=== PATIENT | female | born 1965 | race Caucasian/White ===

== ENCOUNTER 2017-07-09 13:00 | Outpatient (RCR) | payer MEDICAID, OTHER ==
[~2017-07-09 13:00] MED LIST: AMPH20TA2 PO; CEPH500C PO; CYCL10TA9 PO; GABA400C PO; HCTZ12.5T PO; HYDR-1231 PO; HYDR-757 PO; HYDR118S10 PO; IBUP-792 PO; LD5PT TOP; NAPR550T PO; PRD20T PO; SULF-222 PO; TRAM50TA2 PO
== END 2017-07-12 15:40 | disposition home or self-care (01) ==
PROVIDERS: ATTEND Physician Assistant
DX: Z47.1 Aftercare following joint replacement surgery (principal); Z96.652 Presence of left artificial knee joint

== ENCOUNTER 2019-12-16 20:15 | Emergency (ER) | payer MEDICARE, MEDICAID ==
[~2019-12-16] VITALS: Ht 162 cm; Wt 111.8 kg
--- OUTSIDE RECORDS SUMMARY | 2019-12-16 20:21 | XMS REPORT ---
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 thrombosis, PT says her depression has been elevated the past month, PT has n't taken any medication in almost two yearsBH intake -Hollis RUIZ stomache pain, Started Lamotrigine on Wednesday, that is when she started getting sick, [facility] medication refill requestLab (walk-in)[id number]-YdlROL-Us [id number]-[id number]-[id number]-GlvPXP-[id number]
--- OUTSIDE RECORDS SUMMARY | 2019-12-16 20:22 | XMS REPORT ---
Discharge Summary 2.1 Created on: LUIS MANUEL ROBLES : 1965 Sex: Female Author Author LUIS MANUEL REGALADO Organization Unknown Address [address] [place], [place] [id number] Care Team Providers Care Premium Service Representative Name Role Phone RONALD DESAI Watchlist MELBA BACON Watchlist PRIYA SHI Xwatchlist DELBERT ARAGON Xwatchlist CHERRY TUTTLE Xwatchlist JORGE AHUJA Xwatchlist PHILIP TRONCOSO Xwatchlist BEENA MARS Xwatchlist SHOSHANAGEOVANY TAVARESIG Xwatchlist KENKIANNA JOHNNY Xwatchlist PEG GUAMAN Xwatchlist ADELFO SHY Xwatchlist MELINDA Rodriguez'STEVE Xwatchlist MARICRUZ Calhoun BEN Salmon MD Attending CHERYL CONTRERAS Physasst DARYA MOROCHO Physasst Functional Status No Data Found Immunization Immunization Date Status Additional Notes Code Code System Tdap 11/29/2013 Completed 115 CVX Mental Status No Data Found Results BASIC METABOLIC PANEL - Collect Date/Marcela e: 06/10/2017 06:15 [employer] ID: [id number] [address], [place], [place], [id number] [facility] ID: [id number] [address], [place], [place], [id number] LOINC: 24669-2 Test Value Unit Reference Range Code Code System GLUCOSE 96 MG/DL L=70 H=100 2345-7 LOINC SODIUM 139 MEQ/L L=135 H=148 2951-2 LOINC POTASSIUM 4.6 MEQ/L L=3.5 H=5.3 2823-3 LOINC CHLORIDE 108 MEQ/L L=96 H=110 2075-0 LOINC CO2 24 MEQ/L L=22 H=29 2028-9 LOINC BUN 11 MG/DL L=8 H=22 3094-0 LOINC CREATININE 0.7 MG/DL L=0.6 H=1.6 2160-0 LOINC CALCIUM 8.5 MG/DL L=8.2 H=10.6 81739-8 LOINC AGE 52 yrs GFR NonAA 89 GFR AA 108 eGFR >60 eGFR AA* >60 CBC W/ AUTO DIFF (RFLX MAN DIFF IF IND) - Collect Date/Time: 06/10/2017 06:15 [facility] [employer] ID: [id number] [address] [facility] [address], [place], [id number] [employer] ID: [id number] [address] [facility] [address], [place], [id number] LOINC: 43321-2 Test Value Unit Reference Range Code Code System WBC 11.8 TH/CMM L=4.5 H=10.8 10791-0 LOINC RBC 3.20 ML/CMM L=4.20 H=5.40 789-8 LOINC HGB 9.8 G/DL L=12.0 H=16.0 718-7 LOINC HCT 31.1 % L=37.0 H=47.0 4544-3 LOINC MCV 97 FL L=81 H=99 MCH 30.6 PG L=27.0 H=33.0 MCHC 31.5 G/DL L=31.0 H=36.0 RDW SD 47 FL L=36 H=50 RDW CV 13.2 % L=0.0 H=14.8 MPV 10.0 FL L=9.3 H=12.5 PLT 259 TH/CMM L=130 H=440 777-3 LOINC NRBC# 0.00 TH/CMM L=0.00 H=0.00 NRBC% 0.0 /100WBC L=0.0 H=2.0 %NEUT 73.0 % %LYMP 20.8 % %MONO 5.3 % %EOS 0.1 % %BASO 0.3 % #NEUT 8.61 TH/CMM L=2.10 H=8.20 #LYMP 2.45 TH/CMM L=0.90 H=5.20 #MONO 0.63 TH/CMM L=0.16 H=1.00 #EOS 0.01 TH/CMM L=0.00 H=0.80 #BASO 0.03 TH/CMM L=0.00 H=0.20 MANUAL DIFF NOT IND BASIC METABOLIC PANEL - Collect Date/Marcela e: 06/09/2017 06:55 [employer] ID: [id number] [address], [place], [place], [id number] [facility] [employer] ID: [id number] [address] [facility] [address], [place], [place], [phone] LOINC: 76619-4 Test Value Unit Reference Range Code Code System GLUCOSE 135 MG/DL L=70 H=100 2345-7 LOINC SODIUM 132 MEQ/L L=135 H=148 2951-2 LOINC POTASSIUM 4.4 MEQ/L L=3.5 H=5.3 2823-3 LOINC CHLORIDE 102 MEQ/L L=96 H=110 2075-0 LOINC CO2 22 MEQ/L L=22 H=29 2028-9 LOINC BUN 10 MG/DL L=8 H=22 3094-0 LOINC CREATININE 0.7 MG/DL L=0.6 H=1.6 2160-0 LOINC CALCIUM 8.6 MG/DL L=8.2 H=10.6 60886-2 LOINC AGE 52 yrs GFR NonAA 89 GFR AA 108 eGFR >60 eGFR AA* >60 CBC W/ AUTO DIFF (RFLX MAN DIFF IF IND) - Collect Date/Time: 06/09/2017 06:55 [facility] ID: [id number] [address], [place], [place], [id number] [facility] ID: [id number] [address], [place], [place], [id number] LOINC: 98264-3 Test Value Unit Reference Range Code Code System WBC 18.9 TH/CMM L=4.5 H=10.8 83793-6 LOINC RBC 3.40 ML/CMM L=4.20 H=5.40 789-8 LOINC HGB 10.5 G/DL L=12.0 H=16.0 718-7 LOINC HCT 32.5 % L=37.0 H=47.0 4544-3 LOINC MCV 96 FL L=81 H=99 MCH 30.9 PG L=27.0 H=33.0 MCHC 32.3 G/DL L=31.0 H=36.0 RDW SD 43 FL L=36 H=50 RDW CV 12.5 % L=0.0 H=14.8 MPV 10.2 FL L=9.3 H=12.5 PLT 297 TH/CMM L=130 H=440 777-3 LOINC NRBC# 0.00 TH/CMM L=0.00 H=0.00 NRBC% 0.0 /100WBC L=0.0 H=2.0 %NEUT 87.2 % %LYMP 9.3 % %MONO 2.8 % %EOS 0.0 % %BASO 0.2 % #NEUT 16.52 TH/CMM L=2.10 H=8.20 #LYMP 1.77 TH/CMM L=0.90 H=5.20 #MONO 0.53 TH/CMM L=0.16 H=1.00 #EOS 0.00 TH/CMM L=0.00 H=0.80 #BASO 0.03 TH/CMM L=0.00 H=0.20 MANUAL DIFF SEE BELOW SEGS 85 % BANDS 5 % LYMPHS 6 % MONOS 4 % EOS BASO METAS MYELO PROS BLASTS ATYP LYMPHS RBC MORPH TEST URINE - Collect Date/Time : 06/08/2017 11:35 [facility] ID: [id number] [address], [place], [place], [phone] [facility] ID: [id number] [address], [place], [place], [id number] LOINC: 2105-09 Test Value Unit Reference Range Code Code System TEST UR NEGATIVE 2105-09 LOINC KNEE 1V OR 2V - Completed: 06/08/2017 15 :09 LOINC: EXAMINATION:KNEE 1V OR 2VREASON FOR EXAM :Post-Op Evaluation Left/Right?: LEFT COMPARISON:None.FINDINGS:Total knee arthroplasty changes with soft tissue swelling, subcutaneous emphysema, a joint effusion, and a surgical drain.IMPRESSION:Left total knee arthroplasty changes.Reviewed and Electronically Signed by: Josie Carey Date/Time: 06/08/2017 3:25 PMJob ID#: [id number] Social History Type Status Start Date End Date Code Code System Smoking History Never smoker (Never Smoked ) 190513388 SNOMED-CT Vital Signs Vital Sign Value Unit Holton Value Holton Unit Date/Time Recent/Initial? Code Cod e System Body Mass Index 39.86 kg /m2 05/31/2017 09:30 Inital 18008-8 LOINC Systolic Blood Pressure 132 mm[Hg] 06/10/2017 15:09 Most Recent 8480-6 LOINC Diastolic Blood Pressure 74 mm[Hg] 06/10/2017 15:09 Most Recent 8462-4 INC Systolic Blood Pressure 137 mm[Hg] 05/31/2017 09:30 Inital 8480-6 LOINC Diastolic Blood Pressure 87 mm[Hg] 05/31/2017 09:30 Inital 8462-4 LOINC Body Surface Area 2.13 m2 05/31/2017 09:30 Inital 3140-1 LOINC Height 160.0200 cm 63.00 in 05/31/2017 09:30 Init al 8302-2 LOINC O2 Saturation 99 % 06/10/2017 15:09 Most Recent 00794-2 LOINC O2 Saturation 100 % 05/31/2017 09:30 Inita l 17136-7 LOINC Pulse 89.0 /min 06/10/2017 15:09 Most Recent 8867-4 LOINC Pulse 81.0 /min 05/31/2017 09:30 Inita l 8867-4 LOINC Respiration 18 /min 06/10/2017 15:09 Most Recent 9279-1 LOINC Respiration 20 /min 05/31/2017 09:30 Inita l 9279-1 LOINC Temperature 36.7 Ragini 98.0 F 06/10/2017 15:09 Most Recent 8310-5 LOINC Temperature 35.6 Ragini 96.0 F 06/08/2017 16:00 Inita l 8310-5 LOINC Weight 102.0583 kg 225.00 lbs 05/31/2017 09:30 Inital 05749-5 LOINC Assessment You had the following problems: STATUS POST KNEE REPLACEMENT POST-OP PAIN Hospital Discharge Instructions Should you have any questions [...] Wednesday06/23/17 AT 9:20AM FOLLOW-UP OUTPATIENT SERVICES: Physical Therapy GOWEN 06/14/17 AT 3:30PM CONTACT PHYSICIAN IF YOU EXPERIENCE ANY: pain, dizziness, bleeding, numbness in your hands/feet, fever. Shortness of Breath, Nausea/Vomiting, Redness or soreness in calf area. Odor or drainage from incision. PERSONAL ITEMS RETURNED: Yes. INSTRUCTIONS GIVEN AND DISCHARGE TO: Patient. INSTRUCTIONS GIVEN BY (TYPE IN NAME AND DATE) MELBA BACON 06/10/17 SMOKING CESSATION: Smoking and second hand smoke is harmful, to your health.. Smoking has been linked to cancer, cardiac disease, COPD, and asthma.. For more information you can call:, [phone]-STOP, or [phone].. A pamphlet on smoking was given to you, at admission.. Reason For Referral No Data Found Hospital Course You were admitted to [facility] on 06/08/2017 10:30 with a principal diagnosis of Unilateral post-traumatic osteoarthritis, left knee You were discharged from [facility] on 06/10/2017 17:05 Medications Medication Start Date En d Date Route Frequency Dose Code Code System KETOROLAC (TORADOL) VIAL: 30 MG/ML 1 ML 06/08/2017 06/13/2017 IV PUSH Q6H 30 MG 4788753 RxNorm Outpatient Therapy 06/10/2017 Unknown <OTHER> WEEKLY 1 <OTHER> RxNorm oxyCODONE HCl 5MG Oral Tablet 06/10/2017 Unknown BY MOUTH NEEDED EVERY 4 HR 1 TABLET 5685229 RxNorm Aspirin 325MG Oral Tablet, Enteric Coated 06/10/2017 Unknown BY MOUTH TWO MARCELA ES A DAY 325 MILLIGRAMS [id number] Rx Norm Procedures Procedure Name Date Stat us Code Code System Replacement of Left Knee Joint with Synt hetic Substitute, Cemented, Open A 06/08/2017 completed 0SR D0J9 ICD10 PCS Introduction of Anesthetic Agent into Pe ripheral Nerves and Plexi, Percuta 06/08/2017 completed 3E0 T3BZ ICD10 PCS Implants No Data Found Problems Problem Start Date Resol ulysses Date Status Code Code System STATUS POST KNEE REPLACEMENT active 5742155782621 SNO MED-CT POST-OP PAIN active 093259375 SNOMED-CT Allergies Allergy Substance Reaction Severity Start Date Concern Status Code Code System No Known Drug Allergies Active RxNorm Plan of Treatment No Data Found Encounters No Data Found Goals No Data Found Discharge Medications No Data Found Discharge Diagnosis Discharge Diagnosis Diagnosis Code Start Date Unilateral post-traumatic osteoarthritis, left knee M1732 06/08/2017 Health Concerns Section No Data Found
--- OUTSIDE RECORDS SUMMARY | 2019-12-16 20:22 | XMS REPORT ---
Author Author Patti Ding Organization [facility] Address Unknown Care Team Providers Care Sterile Proc Tech Name Role Phone DIMITRY Ding Unavailable PROBLEMS Type Condition ICD9-CM Code SQV54-AR Code Onset Dates Condition S tatus SNOMED Code Problem ADD (attention deficit disorder) F90.0 Active 578614850 Problem Drug abuse counseling and surveillance of drug abuser Z71.51 Active 651024343 Problem Insomnia G47.00 Active 822889959 Problem Joint pain M25.50 Active 06633834 Problem Edema, unspecified type R60.9 Active 100373082 Problem Episode of recurrent major d epressive disorder, unspecified depression episode severity F33.9 Active 216944350 Problem Venous insufficiency (chronic) (peripheral) I87.2 Active [id number] Problem Carpal tunnel syndrome on left G56.02 Active 242485782092392 Problem Manic bipolar I disorder in partial remission F31. 73 Active 90129407 Problem Bipolar affective disorder, currently depressed, moderate F31.32 Active 603239379 Problem Social anxiety disorder F40.10 Active 91034643 Problem Other chronic pain G89.29 Active 8 4662532 Problem Stimulant abuse F15.10 Active 4415 44714 Problem Bipolar II disorder F31.81 Active 75021834 Problem ADD (attention deficit disorder) without hyperactivity F98.8 Active 49642220 ALLERGIES No Information ENCOUNTERS Encounter Location Date Diagnosis [facility] [address] [facility] [id number] [address] [place] [address] Aug, [facility] [address] [facility] [id number] [address] [place] [address] Aug, Bipolar II disorder F31.81 ; Social anxiety disorder F40.10 and ADD (attention deficit disorder) F90.0 [facility] [address] [facility] [id number] [address] [place] [address] Jul, [facility] [address] [facility] [id number] [address] [place] [address] Apr, [facility] [address] [facility] [id number] [address] [place] [address] Apr, Bipolar II disorder F31.81 a nd Social anxiety disorder F40.10 [place] [address] [place] [id number] [address] [place] [address] Jan, Bipolar affective disorder, currently depressed, moderate F31.32 [place] [address] [place] [id number] [address] [place] [address] Jan, Bipolar affective disorder, currently depressed, moderate F31.32 ; Social anxiety disorder F40.10 and Morbid obesity E66.01 [place] [address] [place] [id number] [address] [place] [address] May, Screening for lipid disorder s Z13.220 [place] [address] [place] [id number] [address] [place] [address] May, Carpal tunnel syndrome on le ft G56.02 ; Social anxiety disorder F40.10 and Screening for lipid disorders Z13.220 [place] [address] [place] [id number] [address] [place] [address] Apr, Bipolar II disorder F31.81 ; Social anxiety disorder F40.10 ; ADD (attention deficit disorder) without hyperactivity F98.8 and BMI 45.0-49.9, adult Z68.42 [place] [address] [place] [id number] [address] [place] [address] Mar, [place] [address] [place] [id number] [address] [place] [address] Feb, BMI 45.0-49.9, adult Z68.42 ; Carpal tunnel syndrome on left G56.02 and Social anxiety disorder F40.10 [place] [address] [place] [id number] [address] [place] [address] 09 Job, 2018 Bipolar II disorder F31.81 ; ADD (attention deficit disorder) without hyperactivity F98.8 ; Social anxiety disorder F40.10 and Stimulant abuse F15.10 [place] [address] [place] [id number] [address] [place] [address] Dec, Episode of recurrent major d epressive disorder, unspecified depression episode severity F33.9 ; Other chronic pain G89.29 ; Radiculopathy, lumbar region M54.16 ; Edema of lower extremity R60.0 and BMI 45.0-49.9, adult Z68.42 [place] [address] [place] [id number] [address] [place] [address] Jun, [place] [address] [place] [id number] [address] [place] [address] Jan, Joint pain M25.50 [place] [address] [place] [id number] [address] [place] [address] Jan, Wellness examination Z00.00 ; Pain in right knee M25.561 ; Pain in left knee M25.562 ; Edema, unspecified type R60.9 and Drug abuse counseling and surveillance of drug abuser Z71.51 [place] [address] [place] [id number] [address] [place] [address] November, [place] [address] [place] [id number] [address] [place] [address] Oct, [facility] [address] [place] [id number] [address] [place] [address] Oct, ADD (attention deficit disor josselin) F90.0 ; Social anxiety disorder F40.10 and Manic bipolar I disorder in partial remission F31.73 [place] [address] [place] [id number] [address] [place] [address] Aug, [facility] [address] [facility] [id number] [address] [place] [address] Aug, [facility] [address] [place] [id number] [address] [place] [address] Aug, [facility] [address] [facility] [id number] [address] [place] [address] Jul, [facility] [address] [facility] [id number] [address] [place] [address] Jul, [facility] [address] [facility] [id number] [address] [place] [address] Jul, [facility] [address] [facility] [id number] [address] [place] [address] Jun, [facility] [address] [facility] [id number] [address] [place] [address] Jun, [facility] [address] [facility] [id number] [address] [place] [address] Jun, [facility] [address] [place] [id number] [place] [address] Jun, [facility] [address] [place] [id number] [address] [place] [address] May, Joint pain M25.50 ; ADD (att ention deficit disorder) F90.0 ; Edema R60.9 and Insomnia G47.00 [facility] [address] [facility] [id number] [address] [place] [address] May, [facility] [address] [facility] [id number] [address] [place] [address] May, [facility] [address] [facility] [id number] [address] [place] [address] May, [facility] [address] [facility] [id number] [address] [place] [address] May, Left wrist pain M25.532 ; Si nusitis J32.9 and Drug abuse counseling and surveillance of drug abuser Z71.51 [facility] [address] [facility] [id number] [address] [place] [address] Apr, [facility] [address] [place] [id number] [address] [place] [address] Apr, [facility] [address] [facility] [id number] [address] [place] [address] 15 Apr, 2015 [facility] [address] [facility] [id number] [address] [place] [address] Apr, [facility] [address] [facility] [id number] [address] [place] [address] Apr, [facility] [address] [facility] [id number] [address] [place] [address] Apr, [facility] [address] [facility] [id number] [address] [place] [address] Apr, [facility] [address] [facility] [id number] [address] [place] [address] Mar, Unspecified venous (peripher al) insufficiency 459.81 ; Bipolar I disorder, most recent episode (or current) manic, moderate 296.42 ; Social phobia 300.23 ; Attention deficit disorder of childhood without mention of hyperactivity 314.00 ; Pain in joint, lower leg 719.46 ; Thrombosis 453.9 and Chronic pain 338.29 [facility] [address] [facility] [id number] [address] [place] [address] 18 Mar, 2015 [facility] [address] [facility] [id number] [address] [place] [address] 18 Mar, 2015 [facility] [address] [facility] [id number] [address] [place] [address] 18 Mar, 2014 [facility] [address] [facility] [id number] [address] [place] [address] 17 Mar, 2014 [facility] [address] [facility] [id number] [address] [place] [address] 17 Mar, 2015 [facility] [address] [facility] [id number] [address] [place] [address] 11 Mar, 2014 [facility] [address] [facility] [id number] [address] [place] [address] Mar, Manic bipolar I disorder in partial remission 296.45 ; Social phobia 300.23 and Attention deficit disorder of childhood without mention of hyperactivity 314.00 [facility] [address] [facility] [id number] [address] [place] [address] Mar, [facility] [address] [facility] [id number] [address] [place] [address] Feb, [facility] [address] [facility] [id number] [address] [place] [address] Feb, Thrombosis 453.9 ; Unspecifi ed venous (peripheral) insufficiency 459.81 ; Bipolar I disorder, most recent episode (or current) manic, moderate 296.42 ; Social phobia 300.23 ; Attention deficit disorder of childhood without mention of hyperactivity 314.00 ; Pain in joint, lower leg 719.46 and Edema 782.3 [facility] [address] [facility] [id number] [address] [place] [address] Feb, [facility] [address] [place] [id number] [address] [place] [address] Feb, Social phobia 300.23 ; Atten tion deficit disorder of childhood without mention of hyperactivity 314.00 and Bipolar I disorder, most recent episode manic, in partial remission 296.45 [facility] [address] [facility] [id number] [address] [place] [address] Jan, [facility] [address] [facility] [id number] [address] [place] [address] Jan, [facility] [address] [facility] [id number] [address] [place] [address] Jan, Unspecified venous (peripher al) insufficiency 459.81 and Thrombophlebitis 451.9 [facility] [address] [facility] [id number] [address] [place] [address] Jan, [facility] [address] [facility] [id number] [address] [place] [address] Dec, Headache 784.0 and Back pain 724.5 [facility] [address] [id number] [address] [place] [address] Dec, [facility] [address] [id number] [address] [place] [address] Dec, Bipolar I disorder, most rec ent episode (or current) manic, moderate 296.42 ; Attention deficit disorder of childhood without mention of hyperactivity 314.00 and Social phobia 300.23 [facility] [address] [id number] [address] [place] [phone] November, [facility] [address] [id number] [address] [place] [address] November, [facility] [address] [id number] [address] [place] [address] Oct, [facility] [address] [id number] [address] [place] [address] Oct, [facility] [address] [id number] [address] [place] [address] Sep, [facility] [address] [id number] [address] [place] [address] Sep, [facility] [address] [facility] [id number] [address] [place] [address] Aug, [facility] [address] [id number] [address] [place] [address] Aug, [facility] [address] [id number] [address] [place] [id number] Aug, [facility] [address] [id number] [address] [place] [phone] Aug, [facility] [address] [facility] [id number] [address] [place] [address] Aug, [facility] [address] [facility] [id number] [address] [place] [address] Aug, [facility] [address] [id number] [address] [place] [address], [place] [address] Aug, [facility] [address] [id number] [address] [place] [address], [place] [address] Jul, [facility] [address] [id number] [address] [place] [address], [place] [address] Jul, [facility] [address] [id number] [address] [place] [address], [place] [address] Jun, [facility] [address] [id number] [address] [place] [address], [place] [address] Jun, [facility] [address] [id number] [address] [place] [address], [place] [address] May, [facility] [address] [id number] [address] [place] [address], [place] [address] May, [facility] [address] [id number] [address] [place] [address], [place] [address] May, [facility] [address] [id number] [address] [place] [address], [place] [address] May, [facility] [address] [id number] [address] [place] [address], [place] [address] May, [facility] [address] [id number] [address] [place] [address], [place] [address] May, [facility] [address] [id number] [address] [place] [address], [place] [address] Apr, [facility] [address] [id number] [address] [place] [address], [place] [address] Apr, [facility] [address] [id number] [address] [place] [address], [place] [address] Apr, [facility] [address] [id number] [address] [place] [address], [place] [address] Apr, [facility] [address] [id number] [address] [place] [address], [place] [address] Mar, [facility] [address] [id number] [facility] [place] [address] 22 Sep, 2013 [facility] [address] [id number] [address] [place] [address], [place] [address] 19 Sep, 2013 [facility] [address] [id number] [address] [place] [address], [place] [address] 16 Sep, 2013 [facility] [address] [id number] [address] [place] [address], [place] [address] 16 Sep, 2013 [facility] [address] [id number] [address] [place] [address], [place] [address] 15 Mar, 2013 [facility] [address] [id number] [address] [place] [address], [place] [address] 11 Mar, 2013 [facility] [address] [id number] [address] [place] [address], [place] [address] 11 Mar, 2013 [facility] [address] [id number] [address] [place] [address], [place] [address] 11 Mar, 2013 [facility] [address] [id number] [address] [place] [address], [place] [address] 11 Mar, 2013 [facility] [address] [id number] [address] [place] [address], [place] [address] 10 Mar, 2013 [facility] [address] [id number] [address] [place] [address], [place] [address] 09 Mar, 2013 [facility] [address] [id number] [address] [place] [address], [place] [address] 09 Mar, 2013 [facility] [address] [id number] [address] [place] [address], [place] [address] 02 Mar, 2013 [facility] [address] [id number] [address] [place] [address], [place] [address] 02 Mar, 2013 [facility] [address] [id number] [address] [place] [address], [place] [address] 29 Feb, 2013 [facility] [address] [id number] [address] [place] [address], [place] [address] Feb, [facility] [address] [id number] [address] [place] [address], [place] [address] Feb, [facility] [address] [id number] [address] [place] [address], [place] [address] Feb, [facility] [address] [id number] [address] [place] [address], [place] [address] Feb, [facility] [address] [id number] [address] [place] [address], [place] [address] Feb, [facility] [address] [id number] [address] [place] [address], [place] [address] Feb, [facility] [address] [id number] [address] [place] [address], [place] [address] Feb, [facility] [address] [id number] [address] [place] [address], [place] [address] Feb, [facility] [address] [id number] [address] [place] [address], [place] [address] Feb, [facility] [address] [id number] [address] [place] [address], [place] [address] Feb, [facility] [address] [id number] [address] [place] [address], [place] [address] Feb, [facility] [address] [id number] [address] [place] [address], [place] [address] Feb, [facility] [address] [id number] [address] [place] [address], [place] [address] Feb, [facility] [address] [id number] [address] [place] [address], [place] [address] Jan, [facility] [address] [id number] [address] [place] [address], [place] [address] Jan, [facility] [address] [id number] [address] [place] [address], [place] [address] Jan, [facility] [address] [id number] [facility] [place] [address] Jan, [facility] [address] [id number] [facility] [place] [address] Jan, [facility] [address] [id number] [address] [place] [address], [place] [address] Jan, [facility] [address] [id number] [address] [place] [address], [place] [address] Jan, [facility] [address] [id number] [address] [place] [address], [place] [address] Dec, [facility] [address] [id number] [address] [place] [address], [place] [address] Dec, [facility] [address] [id number] [address] [place] [address], [place] [address] Dec, [facility] [address] [id number] [address] [place] [address], [place] [address] Dec, [facility] [address] [id number] [address] [place] [address], [place] [address] Dec, [facility] [address] [id number] [address] [place] [address], [place] [address] Dec, [facility] [address] [id number] [address] [place] [address], [place] [address] Dec, [facility] [address] [id number] [address] [place] [address], [place] [address] Dec, [facility] [address] [id number] [address] [place] [address], [place] [address] Dec, [facility] [address] [id number] [address] [place] [address], [place] [address] November, [facility] [address] [id number] [address] [place] [address], [place] [address] November, [facility] [address] [id number] [address] [place] [address], [place] [address] November, [facility] [address] [id number] [facility] [place] [address] November, [facility] [address] [id number] [address] [place] [address], [place] [address] November, [facility] [address] [id number] [address] [place] [address], [place] [address] November, [facility] [address] [id number] [address] [place] [address], [place] [address] November, [facility] [address] [id number] [address] [place] [address], [place] [address] November, [facility] [address] [id number] [address] [place] [address], [place] [address] November, [facility] [address] [id number] [address] [place] [address], [place] [address] November, [facility] [address] [id number] [address] [place] [address], [place] [address] November, [facility] [address] [id number] [address] [place] [address], [place] [address] November, [facility] [address] [id number] [address] [place] [address], [place] [address] November, [facility] [address] [id number] [address] [place] [address], [place] [address] November, [facility] [address] [id number] [address] [place] [address], [place] [address] Oct, [facility] [address] [id number] [address] [place] [address], [place] [address] Oct, [facility] [address] [id number] [address] [place] [address], [place] [address] Oct, [facility] [address] [id number] [address] [place] [address], [place] [address] Oct, [facility] [address] [id number] [address] [place] [address], [place] [address] Oct, [facility] [address] [id number] [address] [place] [address], [place] [address] Oct, [facility] [address] [id number] [address] [place] [address], [place] [address] Sep, [facility] [address] [id number] [address] [place] [address], [place] [address] Sep, [facility] [address] [id number] [address] [place] [address], [place] [address] Sep, [facility] [address] [id number] [address] [place] [address], [place] [address] Sep, [facility] [address] [id number] [address] [place] [address], [place] [address] Aug, [facility] [address] [id number] [address] [place] [address], [place] [address] Aug, [facility] [address] [id number] [address] [place] [address], [place] [address] Aug, [facility] [facility] [address] [id number] [address] [place] [address], [place] [address] Aug, [facility] [address] [id number] [address] [place] [address], [place] [address] Jul, [facility] [address] [id number] [address] [place] [address], [place] [address] Jul, [facility] [address] [id number] [address] [place] [address], [place] [address] Jul, [facility] [address] [id number] [address] [place] [address], [place] [address] Jul, [facility] [address] [id number] [address] [place] [address], [place] [address] Jul, [facility] [address] [id number] [address] [place] [address], [place] [address] Jul, [facility] [address] [id number] [address] [place] [address], [place] [address] 14 Jul, 2013 [facility] [address] [id number] [address] [place] [address], [place] [address] 27 Jun, 2013 [facility] [address] [id number] [address] [place] [address], [place] [address] 27 Jun, 2013 [facility] [address] [id number] [address] [place] [address], [place] [address] 17 Jun, 2013 [facility] [address] [id number] [address] [place] [address], [place] [address] 17 Jun, 2013 [facility] [address] [id number] [address] [place] [address], [place] [address] Jun, [facility] [address] [id number] [address] [place] [address], [place] [address] Jun, [facility] [address] [id number] [address] [place] [address], [place] [address] 07 May, 2013 [facility] [address] [id number] [address] [place] [address], [place] [address] 07 May, 2013 [facility] [address] [id number] [address] [place] [id number] 15 Apr, 2013 [facility] [address] [id number] [address] [place] [address], [place] [address] 15 Apr, 2013 [facility] [address] [id number] [address] [place] [id number] 10 Apr, 2013 [facility] [address] [id number] [address] [place] [address], [place] [address] 10 Apr, 2013 [facility] [address] [id number] [address] [place] [id number] 08 Apr, 2013 [facility] [address] [id number] [address] [place] [address], [place] [address] 24 Mar, 2013 [facility] [address] [id number] [address] [place] [address], [place] [address] 19 Mar, 2013 [facility] [address] [id number] [address] [place] [address], [place] [address] 12 Mar, 2013 [facility] [address] [id number] [address] [place] [address], [place] [address] Mar, [facility] [address] [id number] [address] [place] [address], [place] [address] Feb, [facility] [address] [id number] [address] [place] [address], [place] [address] Feb, [facility] [address] [id number] [address] [place] [address], [place] [address] Jan, [facility] [address] [id number] [address] [place] [address], [place] [address] Jan, [facility] [address] [id number] [address] [place] [address], [place] [address] Jan, [facility] [address] [id number] [address] [place] [address], [place] [address] Jan, [facility] [address] [id number] [address] [place] [address], [place] [address] Dec, [facility] [address] [id number] [address] [place] [address], [place] [address] Dec, [facility] [address] [id number] [address] [place] [address], [place] [address] Dec, [facility] [address] [id number] [address] [place] [address], [place] [address] Dec, [facility] [address] [id number] [address] [place] [address], [place] [address] November, [facility] [address] [id number] [address] [place] [address], [place] [address] November, [facility] [address] [id number] [address] [place] [address], [place] [address] Oct, [facility] [address] [id number] [address] [place] [address], [place] [address] 20 Sep, 2012 [facility] [address] [id number] [address] [place] [address], [place] [address] 08 Sep, 2012 [facility] [address] [id number] [address] [place] [address], [place] [address] 14 Aug, 2012 [facility] [address] [id number] [address] [place] [address], [place] [address] 13 Aug, 2012 [facility] [address] [id number] [address] [place] [address], [place] [address] 18 Jul, 2012 [facility] [address] [id number] [address] [place] [address], [place] [address] 09 Jul, 2012 [facility] [address] [id number] [address] [place] [address], [place] [address] Jul, [facility] [address] [id number] [address] [place] [address], [place] [address] 28 Jun, 2012 [facility] [address] [id number] [address] [place] [address], [place] [address] 28 Jun, 2012 [facility] [address] [id number] [address] [place] [address], [place] [address] 15 Jun, 2012 [facility] [address] [id number] [address] [place] [address], [place] [address] 15 Jun, 2012 [facility] [address] [id number] [address] [place] [address], [place] [address] 20 May, 2012 [facility] [address] [id number] [address] [place] [address], [place] [address] 20 May, 2012 [facility] [address] [id number] [address] [place] [address], [place] [address] 19 May, 2012 [facility] [address] [id number] [address] [place] [address], [place] [address] 14 May, 2012 [facility] [address] [id number] [address] [place] [address], [place] [address] May, [facility] [address] [id number] [address] [place] [address], [place] [address] May, [facility] [address] [id number] [address] [place] [address], [place] [address] May, [facility] [address] [id number] [address] [place] [address], [place] [address] Apr, [facility] [address] [id number] [address] [place] [address], [place] [address] Apr, [facility] [address] [id number] [address] [place] [address], [place] [address] Apr, [facility] [address] [id number] [address] [place] [address], [place] [address] Apr, [facility] [address] [id number] [address] [place] [address], [place] [address] Apr, [facility] [address] [id number] [address] [place] [address], [place] [address] Apr, [facility] [address] [id number] [address] [place] [address], [place] [address] Apr, [facility] [address] [id number] [address] [place] [address], [place] [address] Apr, [facility] [address] [id number] [address] [place] [address], [place] [address] Jan, [facility] [address] [id number] [address] [place] [id number] Jan, [facility] [address] [id number] [address] [place] [address], [place] [address] Dec, [facility] [address] [id number] [address] [place] [address], [place] [address] November, [facility] [address] [id number] [address] [place] [address], [place] [address] Oct, [facility] [address] [id number] [address] [place] [address], [place] [address] 10 Oct, 2011 [facility] [address] [id number] [address] [place] [address], [place] [address] 03 Oct, 2011 [facility] [address] [id number] [address] [place] [address], [place] [address] Oct, [facility] [address] [id number] [address] [place] [address], [place] [address] Sep, [facility] [address] [id number] [address] [place] [address], [place] [address] Sep, [facility] [address] [id number] [address] [place] [address], [place] [address] Sep, [facility] [address] [id number] [address] [place] [address], [place] [address] Jun, [facility] [address] [id number] [address] [place] [address], [place] [address] Jun, [facility] [address] [id number] [address] [place] [address], [place] [address] May, [facility] [address] [id number] [address] [place] [address], [place] [address] 14 Jan, 2011 [facility] [address] [id number] [address] [place] [address], [place] [address] November, [facility] [address] [id number] [address] [place] [address], [place] [address] 14 Oct, 2010 [facility] [address] [id number] [address] [place] [address], [place] [address] 16 Sep, 2010 [facility] [address] [id number] [address] [place] [address], [place] [address] 30 May, 2010 [facility] [address] [id number] [address] [place] [address], [place] [address] Jul, [facility] [address] [id number] [address] [place] [address], [place] [address] Jun, [facility] [address] [id number] [address] [place] [id number] Jun, [facility] [address] [id number] [address] [place] [id number] Jun, [facility] [address] [id number] [address] [place] [id number] Jun, [facility] [address] [id number] [address] [place] [id number] May, [facility] [address] [id number] [address] [place] [id number] May, [facility] [address] [id number] [address] [place] [id number] Apr, [facility] [address] [id number] [address] [place] [phone] Apr, [facility] [address] [id number] [address] [place] [address] Apr, IMMUNIZATIONS No Known Immunizations SOCIAL HISTORY Never Assessed REASON FOR VISIT PLAN OF CARE VITAL SIGNS MEDICATIONS Unknown Medications RESULTS No Results PROCEDURES No Known procedures INSTRUCTIONS MEDICATIONS ADMINISTERED No Known Medications MEDICAL (GENERAL) HISTORY Type Description Date Medical History back pain Medical History obesity Medical History depression Medical History anxiety Medical History Panic attacks Medical History Arthritis Medical History bipolar disorder Medical History social phobia Medical History chronic knee pain Medical History severe vericose vein, stasis ulcer Surgical History left knee arthroscopy 02/2000 Surgical History carpal tunnel release: right 06/1996 Surgical History multiple knee injections ([id number]) Surgical History left knee replacement 06/11 Hospitalization History Knee surgery- x 3 days 06/11
--- OUTSIDE RECORDS SUMMARY | 2019-12-16 20:22 | XMS REPORT ---
Author Author Patti HERNANDEZ Organization [facility] Address [address] [place] [address] Care Team Providers Care Teacher Drama Name Role Phone DARLING HERNANDEZ Unavailable PROBLEMS Type Condition ICD9-CM Code ACX34-SN Code Onset Dates Condition S tatus SNOMED Code Problem ADD (attention deficit disorder) F90.0 Active 497162666 Problem Drug abuse counseling and surveillance of drug abuser Z71.51 Active 208929381 Problem Insomnia G47.00 Active 262128193 Problem Joint pain M25.50 Active 89437411 Problem Edema, unspecified type R60.9 Active 060607504 Problem Episode of recurrent major d epressive disorder, unspecified depression episode severity F33.9 Active 526419218 Problem Venous insufficiency (chronic) (peripheral) I87.2 Active [id number] Problem Carpal tunnel syndrome on left G56.02 Active [id number] Problem Manic bipolar I disorder in partial remission F31. 73 Active 52135353 Problem Bipolar affective disorder, currently depressed, moderate F31.32 Active 083861733 Problem Social anxiety disorder F40.10 Active 00429477 Problem Other chronic pain G89.29 Active 8 4672440 Problem Stimulant abuse F15.10 Active 4415 29661 Problem Bipolar II disorder F31.81 Active 50571155 Problem ADD (attention deficit disorder) without hyperactivity F98.8 Active [id number] ALLERGIES No Information ENCOUNTERS Encounter Location Date Diagnosis [facility] [address] [facility] [id number] [address] [place] [phone] Aug, [facility] [address] [facility] [id number] [address] [place] [address] Aug, Bipolar II disorder F31.81 ; Social anxiety disorder F40.10 and ADD (attention deficit disorder) F90.0 [facility] [address] [facility] [id number] [address] [place] [address] Jul, [facility] [address] [facility] [id number] [address] [place] [phone] Apr, [place] [address] [facility] [id number] [address] [place] [address] Apr, Bipolar II disorder F31.81 a nd Social anxiety disorder F40.10 [place] [address] [facility] [id number] [address] [place] [address] Jan, Bipolar affective disorder, currently depressed, moderate F31.32 [place] [address] [address] [facility] [id number] [address] [place] [address] Jan, Bipolar affective disorder, currently depressed, moderate F31.32 ; Social anxiety disorder F40.10 and Morbid obesity E66.01 [place] [address] [address] [facility] [address] [facility] [id number] [address] [place] [address] May, Screening for lipid disorder s Z13.220 [place] [address] [place] [id number] [address] [place] [address] May, Carpal tunnel syndrome on le ft G56.02 ; Social anxiety disorder F40.10 and Screening for lipid disorders Z13.220 [place] [address] [facility] [address] [facility] [id number] [address] [place] [phone] 11 Apr, 2018 Bipolar II disorder F31.81 ; Social anxiety disorder F40.10 ; ADD (attention deficit disorder) without hyperactivity F98.8 and BMI 45.0-49.9, adult Z68.42 [place] [address] [address] [facility] [address] [facility] [id number] [address] [place] [address] Mar, [place] [address] [address] [facility] [address] [facility] [id number] [address] [place] [address] Feb, BMI 45.0-49.9, adult Z68.42 ; Carpal tunnel syndrome on left G56.02 and Social anxiety disorder F40.10 [place] [address] [facility] [address] [facility] [id number] [address] [place] [address] Jan, Bipolar II disorder F31.81 ; ADD (attention deficit disorder) without hyperactivity F98.8 ; Social anxiety disorder F40.10 and Stimulant abuse F15.10 [facility] [address] [place] [id number] [address] [place] [phone] Dec, Episode of recurrent major d epressive disorder, unspecified depression episode severity F33.9 ; Other chronic pain G89.29 ; Radiculopathy, lumbar region M54.16 ; Edema of lower extremity R60.0 and BMI 45.0-49.9, adult Z68.42 [place] [id number] [place] [address] Jun, [place] [address] [place] [id number] [place] [address] Jan, Joint pain M25.50 [place] [address] [place] [id number] [address] [place] [address] Jan, Wellness examination Z00.00 ; Pain in right knee M25.561 ; Pain in left knee M25.562 ; Edema, unspecified type R60.9 and Drug abuse counseling and surveillance of drug abuser Z71.51 [place] [address] [place] [id number] [address] [place] [address] November, [place] [address] [place] [id number] [address] [place] [phone] Oct, [facility] [address] [place] [id number] [address] [place] [phone] Oct, ADD (attention deficit disor josselin) F90.0 ; Social anxiety disorder F40.10 and Manic bipolar I disorder in partial remission F31.73 [facility] [address] [place] [id number] [address] [place] [address] Aug, [facility] [address] [place] [id number] [address] [place] [address] Aug, [facility] [address] [place] [id number] [address] [place] [address] Aug, [facility] [address] [facility] [id number] [address] [place] [address] Jul, [facility] [address] [facility] [id number] [address] [place] [address] Jul, [facility] [address] [facility] [id number] [address] [place] [phone] Jul, [facility] [address] [facility] [id number] [address] [place] [address] Jun, [facility] [address] [facility] [id number] [address] [place] [phone] Jun, [facility] [address] [facility] [id number] [address] [place] [phone] Jun, [facility] [address] [facility] [id number] [address] [place] [address] Jun, [facility] [address] [facility] [id number] [address] [place] [phone] May, Joint pain M25.50 ; ADD (att ention deficit disorder) F90.0 ; Edema R60.9 and Insomnia G47.00 [facility] [address] [facility] [id number] [address] [place] [address] May, [facility] [address] [facility] [id number] [address] [place] [phone] May, [facility] [address] [facility] [id number] [address] [place] [address] May, [facility] [address] [facility] [id number] [address] [place] [address] May, Left wrist pain M25.532 ; Si nusitis J32.9 and Drug abuse counseling and surveillance of drug abuser Z71.51 [facility] [address] [facility] [id number] [address] [place] [phone] Apr, [facility] [address] [facility] [id number] [address] [place] [phone] 15 Apr, 2015 [facility] [address] [facility] [id number] [address] [place] [phone] 15 Apr, 2015 [facility] [address] [facility] [id number] [address] [place] [phone] 14 Apr, 2015 [facility] [address] [facility] [id number] [address] [place] [phone] Apr, [facility] [address] [facility] [id number] [address] [place] [phone] Apr, [facility] [address] [facility] [id number] [address] [place] [phone] Apr, [facility] [address] [facility] [id number] [address] [place] [phone] 21 Mar, 2015 Unspecified venous (peripher al) insufficiency 459.81 ; Bipolar I disorder, most recent episode (or current) manic, moderate 296.42 ; Social phobia 300.23 ; Attention deficit disorder of childhood without mention of hyperactivity 314.00 ; Pain in joint, lower leg 719.46 ; Thrombosis 453.9 and Chronic pain 338.29 [facility] [address] [facility] [id number] [address] [place] [phone] 18 Mar, 2015 [facility] [address] [facility] [id number] [address] [place] [phone] 18 Mar, 2015 [facility] [address] [facility] [id number] [address] [place] [phone] 18 Mar, 2015 [facility] [address] [facility] [id number] [address] [place] [phone] 17 Mar, 2015 [facility] [address] [facility] [id number] [address] [place] [phone] 17 Mar, 2014 [facility] [address] [facility] [id number] [address] [place] [phone] 11 Mar, 2015 [facility] [address] [facility] [id number] [address] [place] [phone] Mar, Manic bipolar I disorder in partial remission 296.45 ; Social phobia 300.23 and Attention deficit disorder of childhood without mention of hyperactivity 314.00 [facility] [address] [facility] [id number] [address] [place] [phone] Mar, [facility] [address] [facility] [id number] [address] [place] [phone] Feb, [facility] [address] [facility] [id number] [address] [place] [address] Feb, Thrombosis 453.9 ; Unspecifi ed venous (peripheral) insufficiency 459.81 ; Bipolar I disorder, most recent episode (or current) manic, moderate 296.42 ; Social phobia 300.23 ; Attention deficit disorder of childhood without mention of hyperactivity 314.00 ; Pain in joint, lower leg 719.46 and Edema 782.3 [place] [address] [place] [id number] [address] [place] [address] Feb, [facility] [address] [place] [id number] [address] [place] [phone] Feb, Social phobia 300.23 ; Atten tion deficit disorder of childhood without mention of hyperactivity 314.00 and Bipolar I disorder, most recent episode manic, in partial remission 296.45 [facility] [address] [facility] [id number] [address] [place] [phone] Jan, [facility] [address] [place] [id number] [address] [place] [address] Jan, [facility] [address] [place] [id number] [address] [place] [phone] Jan, Unspecified venous (peripher al) insufficiency 459.81 and Thrombophlebitis 451.9 [facility] [address] [facility] [id number] [address] [place] [phone] Jan, [facility] [address] [facility] [id number] [address] [place] [phone] Dec, Headache 784.0 and Back pain 724.5 [facility] [address] [id number] [address] [place] [phone] Dec, [facility] [address] [id number] [address] [place] [phone] Dec, Bipolar I disorder, most rec ent episode (or current) manic, moderate 296.42 ; Attention deficit disorder of childhood without mention of hyperactivity 314.00 and Social phobia 300.23 [facility] [address] [id number] [address] [place] [phone] November, [facility] [address] [id number] [address] [place] [id number] November, [facility] [address] [facility] [id number] [address] [place] [phone] Oct, [facility] [address] [facility] [id number] [address] [place] [phone] Oct, [facility] [address] [facility] [id number] [address] [place] [phone] Sep, [facility] [address] [id number] [address] [place] [id number] Sep, [facility] [address] [facility] [id number] [address] [place] [phone] Aug, [facility] [address] [facility] [id number] [address] [place] [phone] Aug, [facility] [address] [facility] [id number] [address] [place] [phone] Aug, [facility] [address] [facility] [id number] [address] [place] [phone] Aug, [facility] [address] [facility] [id number] [address] [place] [phone] Aug, [facility] [address] [facility] [id number] [address] [place] [address] Aug, [facility] [address] [id number] [address] [place] [address], [place] [address] Aug, [facility] [address] [id number] [address] [place] [address], [place] [address] Jul, [facility] [address] [id number] [address] [place] [address], [place] [address] Jul, [facility] [address] [id number] [address] [place] [address], [place] [address] Jun, [facility] [address] [id number] [address] [place] [address], [place] [address] Jun, [facility] [address] [id number] [address] [place] [address], [place] [address] May, [facility] [address] [id number] [address] [place] [address], [place] [address] May, [facility] [address] [id number] [address] [place] [address], [place] [address] May, [facility] [address] [id number] [address] [place] [address], [place] [address] May, [facility] [address] [id number] [address] [place] [address], [place] [address] May, [facility] [address] [id number] [address] [place] [address], [place] [address] May, [facility] [address] [id number] [address] [place] [address], [place] [address] Apr, [facility] [address] [id number] [address] [place] [address], [place] [address] Apr, [facility] [address] [id number] [address] [place] [address], [place] [address] Apr, [facility] [address] [id number] [address] [place] [address], [place] [address] Apr, [facility] [address] [id number] [address] [place] [address], [place] [address] 22 Sep, 2013 [facility] [address] [id number] [facility] [place] [address] 22 Sep, 2013 [facility] [address] [id number] [address] [place] [address], [place] [address] 19 Sep, 2013 [facility] [address] [id number] [address] [place] [address], [place] [address] 16 Sep, 2013 [facility] [address] [id number] [address] [place] [address], [place] [address] 16 Sep, 2013 [facility] [address] [id number] [address] [place] [address], [place] [address] 15 Mar, 2013 [facility] [address] [id number] [address] [place] [address], [place] [address] 11 Mar, 2013 [facility] [address] [id number] [address] [place] [address], [place] [address] 11 Mar, 2013 [facility] [address] [id number] [address] [place] [address], [place] [address] 11 Mar, 2013 [facility] [address] [id number] [address] [place] [address], [place] [address] 11 Mar, 2013 [facility] [address] [id number] [address] [place] [address], [place] [address] 10 Mar, 2013 [facility] [address] [id number] [address] [place] [address], [place] [address] 09 Mar, 2013 [facility] [address] [id number] [address] [place] [address], [place] [address] 09 Mar, 2013 [facility] [address] [id number] [address] [place] [address], [place] [address] 02 Mar, 2013 [facility] [address] [id number] [address] [place] [address], [place] [address] 02 Mar, 2013 [facility] [address] [id number] [address] [place] [address], [place] [address] 29 Feb, 2014 [facility] [address] [id number] [address] [place] [address], [place] [address] Feb, [facility] [address] [id number] [address] [place] [address], [place] [address] Feb, [facility] [address] [id number] [address] [place] [address], [place] [address] Feb, [facility] [address] [id number] [address] [place] [address], [place] [address] Feb, [facility] [address] [id number] [address] [place] [address], [place] [address] Feb, [facility] [address] [id number] [address] [place] [address], [place] [address] Feb, [facility] [address] [id number] [address] [place] [address], [place] [address] Feb, [facility] [address] [id number] [address] [place] [address], [place] [address] Feb, [facility] [address] [id number] [address] [place] [address], [place] [address] Feb, [facility] [address] [id number] [address] [place] [address], [place] [address] Feb, [facility] [address] [id number] [address] [place] [address], [place] [address] Feb, [facility] [address] [id number] [address] [place] [address], [place] [address] Feb, [facility] [address] [id number] [address] [place] [address], [place] [address] Feb, [facility] [address] [id number] [address] [place] [address], [place] [address] Jan, [facility] [address] [id number] [address] [place] [address], [place] [address] Jan, [facility] [address] [id number] [address] [place] [address], [place] [address] Jan, [facility] [address] [id number] [address] [place] [address], [place] [address] Jan, [facility] [address] [id number] [address] [place] [address], [place] [id number] Jan, [facility] [address] [id number] [address] [place] [address], [place] [id number] Jan, [facility] [address] [id number] [address] [place] [address], [place] [address] Jan, [facility] [address] [id number] [address] [place] [address], [place] [id number] Dec, [facility] [address] [id number] [address] [place] [address], [place] [address] Dec, [facility] [address] [id number] [address] [place] [address], [place] [id number] Dec, [facility] [address] [id number] [address] [place] [address], [place] [address] Dec, [facility] [address] [id number] [address] [place] [address], [place] [address] Dec, [facility] [address] [id number] [address] [place] [address], [place] [address] Dec, [facility] [address] [id number] [address] [place] [address], [place] [address] Dec, [facility] [address] [id number] [address] [place] [address], [place] [address] Dec, [facility] [address] [id number] [address] [place] [address], [place] [address] Dec, [facility] [address] [id number] [address] [place] [address], [place] [address] November, [facility] [address] [id number] [address] [place] [address], [place] [address] November, [facility] [address] [id number] [address] [place] [address], [place] [address] November, [facility] [address] [id number] [address] [place] [address], [place] [address] November, [facility] [address] [id number] [address] [place] [address], [place] [address] November, [facility] [address] [id number] [address] [place] [address], [place] [id number] November, [facility] [address] [id number] [address] [place] [address], [place] [address] November, [facility] [address] [id number] [address] [place] [address], [place] [address] November, [facility] [address] [id number] [address] [place] [address], [place] [address] November, [facility] [address] [id number] [address] [place] [address], [place] [address] November, [facility] [address] [id number] [address] [place] [address], [place] [address] November, [facility] [address] [id number] [address] [place] [address], [place] [address] November, [facility] [address] [id number] [address] [place] [address], [place] [address] November, [facility] [address] [id number] [address] [place] [address], [place] [address] November, [facility] [address] [id number] [address] [place] [address], [place] [address] Oct, [facility] [address] [id number] [address] [place] [address], [place] [address] Oct, [facility] [address] [id number] [address] [place] [address], [place] [address] Oct, [facility] [address] [id number] [address] [place] [address], [place] [address] Oct, [facility] [address] [id number] [address] [place] [address], [place] [address] Oct, [facility] [address] [id number] [address] [place] [address], [place] [address] Oct, [facility] [address] [id number] [address] [place] [address], [place] [address] Sep, [facility] [address] [id number] [address] [place] [address], [place] [address] Sep, [facility] [address] [id number] [address] [place] [address], [place] [address] Sep, [facility] [address] [id number] [address] [place] [address], [place] [address] Sep, [facility] [address] [id number] [address] [place] [address], [place] [address] Aug, [facility] [address] [id number] [address] [place] [address], [place] [address] Aug, [facility] [address] [id number] [address] [place] [address], [place] [address] Aug, [facility] [address] [id number] [address] [place] [address], [place] [address] Aug, [facility] [address] [id number] [address] [place] [address], [place] [address] Jul, [facility] [address] [id number] [address] [place] [address], [place] [address] Jul, [facility] [address] [id number] [address] [place] [address], [place] [address] Jul, [facility] [address] [id number] [address] [place] [address], [place] [address] Jul, [facility] [address] [id number] [address] [place] [address], [place] [address] Jul, [facility] [address] [id number] [address] [place] [address], [place] [address] 14 Jul, 2013 [facility] [address] [id number] [address] [place] [address], [place] [address] 14 Jul, 2013 [facility] [address] [id number] [address] [place] [address], [place] [address] 27 Jun, 2013 [facility] [address] [id number] [address] [place] [address], [place] [address] 27 Jun, 2013 [facility] [address] [id number] [address] [place] [address], [place] [address] 17 Jun, 2013 [facility] [address] [id number] [address] [place] [address], [place] [address] 17 Jun, 2013 [facility] [address] [id number] [address] [place] [address], [place] [address] Jun, [facility] [address] [id number] [address] [place] [address], [place] [address] Jun, [facility] [address] [id number] [address] [place] [address], [place] [address] 07 May, 2013 [facility] [address] [id number] [address] [place] [address], [place] [address] 07 May, 2013 [facility] [address] [id number] [address] [place] [address], [place] [address] 15 Apr, 2013 [facility] [address] [id number] [address] [place] [address], [place] [address] 15 Apr, 2013 [facility] [address] [id number] [address] [place] [id number] 10 Apr, 2013 [facility] [address] [id number] [address] [place] [address], [place] [address] 10 Apr, 2013 [facility] [address] [id number] [address] [place] [address], [place] [address] 08 Apr, 2013 [facility] [address] [id number] [address] [place] [address], [place] [address] 24 Mar, 2013 [facility] [address] [id number] [address] [place] [address], [place] [address] Mar, [facility] [address] [id number] [address] [place] [address], [place] [address] Mar, [facility] [address] [id number] [address] [place] [address], [place] [address] Mar, [facility] [address] [id number] [address] [place] [address], [place] [address] Feb, [facility] [address] [id number] [address] [place] [address], [place] [address] Feb, [facility] [address] [id number] [address] [place] [address], [place] [address] Jan, [facility] [address] [id number] [address] [place] [address], [place] [address] Jan, [facility] [address] [id number] [address] [place] [address], [place] [address] Jan, [facility] [address] [id number] [address] [place] [address], [place] [address] Jan, [facility] [address] [id number] [address] [place] [address], [place] [address] Dec, [facility] [address] [id number] [address] [place] [address], [place] [address] Dec, [facility] [address] [id number] [address] [place] [address], [place] [address] Dec, [facility] [address] [id number] [address] [place] [address], [place] [address] Dec, [facility] [address] [id number] [address] [place] [address], [place] [address] November, [facility] [address] [id number] [address] [place] [address], [place] [address] November, [facility] [address] [id number] [address] [place] [address], [place] [address] Oct, [facility] [address] [id number] [address] [place] [address], [place] [address] 20 Sep, 2012 [facility] [address] [id number] [address] [place] [address], [place] [address] 08 Sep, 2012 [facility] [address] [id number] [address] [place] [address], [place] [address] 14 Aug, 2012 [facility] [address] [id number] [address] [place] [address], [place] [address] 13 Aug, 2012 [facility] [address] [id number] [address] [place] [address], [place] [address] 18 Jul, 2012 [facility] [address] [id number] [address] [place] [address], [place] [address] Jul, [facility] [address] [id number] [address] [place] [address], [place] [address] Jul, [facility] [address] [id number] [address] [place] [address], [place] [address] 28 Jun, 2012 [facility] [address] [id number] [address] [place] [address], [place] [address] 28 Jun, 2012 [facility] [address] [id number] [address] [place] [address], [place] [address] 15 Jun, 2012 [facility] [address] [id number] [address] [place] [address], [place] [address] 15 Jun, 2012 [facility] [address] [id number] [address] [place] [id number] 20 May, 2012 [facility] [address] [id number] [address] [place] [address], [place] [address] 20 May, 2012 [facility] [address] [id number] [address] [place] [address], [place] [address] 19 May, 2012 [facility] [address] [id number] [address] [place] [address], [place] [address] 14 May, 2012 [facility] [address] [id number] [address] [place] [id number] May, [facility] [address] [id number] [address] [place] [address], [place] [address] May, [facility] [address] [id number] [address] [place] [id number] May, [facility] [address] [id number] [address] [place] [address], [place] [address] Apr, [facility] [address] [id number] [address] [place] [address], [place] [address] Apr, [facility] [address] [id number] [address] [place] [address], [place] [address] Apr, [facility] [address] [id number] [address] [place] [address], [place] [address] Apr, [facility] [address] [id number] [address] [place] [address], [place] [address] Apr, [facility] [address] [id number] [address] [place] [address], [place] [address] Apr, [facility] [address] [id number] [address] [place] [address], [place] [address] Apr, [facility] [address] [id number] [address] [place] [id number] Apr, [facility] [address] [id number] [address] [place] [address], [place] [address] Jan, [facility] [address] [id number] [address] [place] [id number] Jan, [facility] [address] [id number] [address] [place] [id number] Dec, [facility] [address] [id number] [address] [place] [address], [place] [address] November, [facility] [address] [id number] [address] [place] [address], [place] [address] Oct, [facility] [address] [id number] [address] [place] [address], [place] [address] 10 Oct, 2011 [facility] [address] [id number] [address] [place] [address], [place] [address] 03 Oct, 2011 [facility] [address] [id number] [address] [place] [address], [place] [address] 02 Oct, 2011 [facility] [address] [id number] [address] [place] [address], [place] [address] Sep, [facility] [address] [id number] [address] [place] [address], [place] [address] Sep, [facility] [address] [id number] [address] [place] [address], [place] [address] Sep, [facility] [address] [id number] [address] [place] [address], [place] [address] 13 Jun, 2011 [facility] [address] [id number] [address] [place] [address], [place] [address] 13 Jun, 2011 [facility] [address] [id number] [address] [place] [address], [place] [address] May, [facility] [address] [id number] [address] [place] [address], [place] [address] 14 Jan, 2011 [facility] [address] [id number] [address] [place] [address], [place] [address] November, [facility] [address] [id number] [address] [place] [address], [place] [address] 14 Oct, 2010 [facility] [address] [id number] [address] [place] [address], [place] [address] 16 Sep, 2010 [facility] [address] [id number] [address] [place] [address], [place] [address] 30 May, 2010 [facility] [address] [id number] [address] [place] [address], [place] [address] Jul, [facility] [address] [id number] [address] [place] [address] [address] Jun, [facility] [address] [id number] [address] [place] [id number] Jun, [facility] [address] [id number] [address] [place] [id number] Jun, [facility] [address] [id number] [address] [place] [id number] Jun, [facility] [address] [id number] [address] [place] [address] May, [facility] [address] [id number] [address] [place] [id number] May, [facility] [address] [id number] [address] [place] [address] Apr, [facility] [address] [id number] [address] [place] [id number] Apr, [facility] [address] [id number] [address] [place] [id number] Apr, IMMUNIZATIONS No Known Immunizations SOCIAL HISTORY [...] right 06/1996 Surgical History multiple knee injections ([id number]) Surgical History left knee replacement 06/11 Hospitalization History Knee surgery- x 3 days 06/11
--- OUTSIDE RECORDS SUMMARY | 2019-12-16 20:22 | XMS REPORT ---
Author Author Patti Guzman Doctor Organization [facility] Address Unknown Phone Unavailable Care Team Providers Care Fur Joiner Name Role Phone Migration, Doctor Unavailable Unavailable PROBLEMS Type Condition ICD9-CM Code ZAT55-ZE Code Onset Dates Condition S tatus SNOMED Code Problem Drug abuse counseling and surveillance of drug abuser Z71.51 Active 818915152 Problem Joint pain M25.50 Active 40885767 Problem ADD (attention deficit disorder) F90.0 Active 772574049 Problem Social anxiety disorder F40.10 Active 55654633 Problem Insomnia G47.00 Active 585288344 Problem Edema, unspecified type R60.9 Active 399257373 Problem Manic bipolar I disorder in partial remission F31. 73 Active 28665599 Problem Other chronic pain G89.29 Active 8 5256265 Problem Bipolar II disorder F31.81 Active 44196210 Problem ADD (attention deficit disorder) without hyperactivity F98.8 Active 02103165 Problem Vitamin D deficiency E55.9 Active 58337988 Problem Venous insufficiency (chronic) (peripheral) I87.2 Active [id number] Problem Mixed hyperlipidemia E78.2 Active 286229990 Problem Episode of recurrent major d epressive disorder, unspecified depression episode severity F33.9 Active 068444800 Problem Stimulant abuse F15.10 Active 4415 10392 Problem Carpal tunnel syndrome on left G56.02 Active 643395367694959 Problem Bipolar affective disorder, currently depressed, moderate F31.32 Active 429090106 Problem Obesity, morbid, BMI 40.0-49.9 E66.01 Active 945151281 ALLERGIES No Information ENCOUNTERS Encounter Location Date Diagnosis [facility] [address] [facility] [id number] [address] [place] [address] November, [facility] [address] [facility] [id number] [address] [place] [address] November, [facility] [address] [facility] [id number] [address] [place] [address] November, Bipolar II disorder F31.81 ; ADD (attention deficit disorder) without hyperactivity F98.8 ; Encounter to establish care Z76.89 ; Obesity, morbid, BMI 40.0-49.9 E66.01 ; Mixed hyperlipidemia E78.2 ; Vitamin D deficiency E55.9 ; Screening for blood or protein in urine Z13.89 and Screening for thyroid disorder Z13.29 [place] [address] [address] Aug, [place] [address] [address] Aug, Bipolar II disorder F31.81 ; Social anxiety disorder F40.10 and ADD (attention deficit disorder) F90.0 [place] [address] [address] Jul, [place] [address] [address] Apr, [place] [address] [address] Apr, Bipolar II disorder F31.81 a nd Social anxiety disorder F40.10 [place] [address] [address] Jan, Bipolar affective disorder, currently depressed, moderate F31.32 [place] [address] [address] Jan, Bipolar affective disorder, currently depressed, moderate F31.32 ; Social anxiety disorder F40.10 and Morbid obesity E66.01 [place] [id number] [place] [address] May, Screening for lipid disorder s Z13.220 [place] [address] [address] May, Carpal tunnel syndrome on le ft G56.02 ; Social anxiety disorder F40.10 and Screening for lipid disorders Z13.220 [place] [address] [address] 11 Apr, 2018 Bipolar II disorder F31.81 ; Social anxiety disorder F40.10 ; ADD (attention deficit disorder) without hyperactivity F98.8 and BMI 45.0-49.9, adult Z68.42 [place] [address] [address] 05 Mar, 2018 [place] [address] [address] 17 Feb, 2018 BMI 45.0-49.9, adult Z68.42 ; Carpal tunnel syndrome on left G56.02 and Social anxiety disorder F40.10 [place] [address] [address] 09 Jan, 2018 Bipolar II disorder F31.81 ; ADD (attention deficit disorder) without hyperactivity F98.8 ; Social anxiety disorder F40.10 and Stimulant abuse F15.10 [place] [address] [address] 22 Dec, 2017 Episode of recurrent major d epressive disorder, unspecified depression episode severity F33.9 ; Other chronic pain G89.29 ; Radiculopathy, lumbar region M54.16 ; Edema of lower extremity R60.0 and BMI 45.0-49.9, adult Z68.42 [place] [address] [address] [place] [id number] [address] [place] [address] Jun, [place] [address] [address] Jan, Joint pain M25.[address] [address] 18 Jan, 2016 Wellness examination Z00.00 ; Pain in right knee M25.561 ; Pain in left knee M25.562 ; Edema, unspecified type R60.9 and Drug abuse counseling and surveillance of drug abuser Z71.51 [place] [address] [address] November, [facility] [address] [place] [id number] [address] [place] [address] Oct, [facility] [address] [place] [id number] [address] [place] [address] Oct, ADD (attention deficit disor josselin) F90.0 ; Social anxiety disorder F40.10 and Manic bipolar I disorder in partial remission F31.73 [facility] [address] [facility] [id number] [address] [place] [address] Aug, [facility] [address] [facility] [id number] [address] [place] [address] Aug, [facility] [address] [place] [id number] [address] [place] [address] Aug, [facility] [address] [place] [id number] [address] [place] [address] Jul, [facility] [address] [place] [id number] [address] [place] [address] Jul, [facility] [address] [place] [id number] [address] [place] [address] Jul, [facility] [address] [place] [id number] [address] [place] [address] Jun, [facility] [address] [place] [id number] [address] [place] [address] Jun, [facility] [address] [place] [id number] [address] [place] [address] Jun, [facility] [address] [place] [id number] [address] [place] [address] Jun, [facility] [address] [place] [id number] [address] [place] [address] May, Joint pain M25.50 ; ADD (att ention deficit disorder) F90.0 ; Edema R60.9 and Insomnia G47.00 [facility] [address] [facility] [id number] [address] [place] [address] May, [facility] [address] [facility] [id number] [address] [place] [address] May, [facility] [address] [facility] [id number] [address] [place] [address] May, [facility] [address] [facility] [id number] [address] [place] [address] May, Left wrist pain M25.532 ; Si nusitis J32.9 and Drug abuse counseling and surveillance of drug abuser Z71.51 [facility] [address] [facility] [id number] [address] [place] [address] Apr, [facility] [address] [facility] [id number] [address] [place] [address] Apr, [facility] [address] [place] [id number] [address] [place] [address] Apr, [facility] [address] [facility] [id number] [address] [place] [address] Apr, [facility] [address] [place] [id number] [address] [place] [address] Apr, [facility] [address] [facility] [id number] [address] [place] [address] Apr, [facility] [address] [facility] [id number] [address] [place] [address] Apr, [facility] [address] [facility] [id number] [address] [place] [address] Mar, Unspecified venous (peripher al) insufficiency 459.81 ; Bipolar I disorder, most recent episode (or current) manic, moderate 296.42 ; Social phobia 300.23 ; Attention deficit disorder of childhood without mention of hyperactivity 314.00 ; Pain in joint, lower leg 719.46 ; Thrombosis 453.9 and Chronic pain 338.29 [facility] [address] [facility] [id number] [address] [place] [address] 18 Mar, 2015 [facility] [address] [id number] [address] [place] [address] 18 Mar, 2015 [facility] [address] [id number] [address] [place] [address] 18 Mar, 2015 [facility] [address] [id number] [address] [place] [address] Mar, [facility] [address] [id number] [address] [place] [address] 17 Mar, 2015 [facility] [address] [id number] [address] [place] [address] 11 Mar, 2015 [facility] [address] [facility] [id number] [address] [place] [address] 10 Mar, 2015 Manic bipolar I disorder in partial remission 296.45 ; Social phobia 300.23 and Attention deficit disorder of childhood without mention of hyperactivity 314.00 [facility] [address] [facility] [id number] [address] [place] [address] Mar, [facility] [address] [id number] [address] [place] [address] Feb, [facility] [address] [facility] [id number] [address] [place] [address] Feb, Thrombosis 453.9 ; Unspecifi ed venous (peripheral) insufficiency 459.81 ; Bipolar I disorder, most recent episode (or current) manic, moderate 296.42 ; Social phobia 300.23 ; Attention deficit disorder of childhood without mention of hyperactivity 314.00 ; Pain in joint, lower leg 719.46 and Edema 782.3 [facility] [address] [id number] [address] [place] [address] Feb, [facility] [address] [facility] [id number] [address] [place] [address] Feb, Social phobia 300.23 ; Atten tion deficit disorder of childhood without mention of hyperactivity 314.00 and Bipolar I disorder, most recent episode manic, in partial remission 296.45 [facility] [address] [facility] [id number] [address] [place] [address] Jan, [facility] [address] [facility] [id number] [address] [place] [address] Jan, [facility] [address] [facility] [id number] [address] [place] [address] Jan, Unspecified venous (peripher al) insufficiency 459.81 and Thrombophlebitis 451.9 [facility] [address] [facility] [id number] [address] [place] [address] Jan, [facility] [address] [place] [id number] [address] [place] [address] Dec, Headache 784.0 and Back pain 724.5 [facility] [address] [place] [id number] [address] [place] [address] Dec, [facility] [address] [place] [id number] [address] [place] [address] Dec, Bipolar I disorder, most rec ent episode (or current) manic, moderate 296.42 ; Attention deficit disorder of childhood without mention of hyperactivity 314.00 and Social phobia 300.23 [facility] [address] [facility] [id number] [address] [place] [address] November, [facility] [address] [facility] [id number] [address] [place] [address] November, [facility] [address] [facility] [id number] [address] [place] [address] Oct, [facility] [address] [facility] [id number] [address] [place] [phone] Oct, [facility] [address] [facility] [id number] [address] [place] [address] Sep, [facility] [address] [facility] [id number] [address] [place] [address] Sep, [facility] [address] [id number] [address] [place] [address], [place] [address] Aug, 2014 [facility] [address] [id number] [address] [place] [address], [place] [address] Aug, 2014 [facility] [address] [id number] [address] [place] [address], [place] [address] Aug, 2014 [facility] [address] [id number] [address] [place] [address], [place] [address] Aug, 2014 [facility] [address] [id number] [address] [place] [address], [place] [address] Aug, 2014 [facility] [address] [id number] [address] [place] [address], [place] [address] Aug, [facility] [address] [id number] [address] [place] [address], [place] [address] Aug, [facility] [address] [id number] [address] [place] [address], [place] [address] Jul, [facility] [address] [id number] [address] [place] [address], [place] [address] Jul, [facility] [address] [id number] [address] [place] [address], [place] [address] Jun, [facility] [address] [id number] [address] [place] [address] Jun, [facility] [address] [id number] [address] [place] [address] May, [facility] [address] [id number] [address] [place] [address], [place] [address] May, [facility] [address] [id number] [address] [place] [address], [place] [address] May, [facility] [address] [id number] [address] [place] [address] May, [facility] [address] [id number] [address] [place] [address] May, [facility] [address] [id number] [address] [place] [address], [place] [address] May, [facility] [address] [id number] [address] [place] [address], [place] [address] Apr, [facility] [address] [id number] [address] [place] [address], [place] [address] Apr, [facility] [address] [id number] [address] [place] [address], [place] [address] Apr, [facility] [address] [id number] [address] [place] [address], [place] [address] Apr, [facility] [address] [id number] [address] [place] [address], [place] [address] 22 Mar, 2014 [facility] [address] [id number] [address] [place] [address], [place] [address] 22 Mar, 2014 [facility] [address] [id number] [address] [place] [address], [place] [address] 19 Mar, 2013 [facility] [address] [id number] [address] [place] [address], [place] [address] 16 Mar, 2013 [facility] [address] [id number] [address] [place] [address], [place] [address] 16 Sep, 2013 [facility] [address] [id number] [address] [place] [address], [place] [address] 15 Sep, 2013 [facility] [address] [id number] [address] [place] [address], [place] [address] 11 Sep, 2013 [facility] [address] [id number] [address] [place] [address], [place] [address] 11 Mar, 2013 [facility] [address] [id number] [address] [place] [address], [place] [address] 11 Sep, 2013 [facility] [address] [id number] [address] [place] [address], [place] [address] 11 Mar, 2013 [facility] [address] [id number] [facility] [place] [address] 10 Mar, 2013 [facility] [address] [id number] [facility] [place] [address] Mar, 2013 [facility] [address] [id number] [facility] [place] [address] Mar, 2013 [facility] [address] [id number] [address] [place] [address], [place] [address] Mar, 2013 [facility] [address] [id number] [address] [place] [address], [place] [address] Mar, 2013 [facility] [address] [id number] [address] [place] [address], [place] [address] Feb, [facility] [address] [id number] [address] [place] [address], [place] [address] Feb, [facility] [address] [id number] [address] [place] [address], [place] [address] Feb, [facility] [address] [id number] [address] [place] [address], [place] [address] Feb, [facility] [address] [id number] [address] [place] [address], [place] [address] Feb, [facility] [address] [id number] [address] [place] [address], [place] [address] Feb, [facility] [address] [id number] [address] [place] [address], [place] [address] Feb, [facility] [address] [id number] [address] [place] [address], [place] [address] Feb, [facility] [address] [id number] [address] [place] [address], [place] [address] Feb, [facility] [address] [id number] [address] [place] [address], [place] [address] Feb, [facility] [address] [id number] [address] [place] [address], [place] [address] Feb, [facility] [address] [id number] [facility] [place] [address] Feb, [facility] [address] [id number] [facility] [place] [address] Feb, [facility] [address] [id number] [facility] [place] [address] Feb, [facility] [address] [id number] [address] [place] [address], [place] [address] Jan, [facility] [address] [id number] [address] [place] [address], [place] [address] Jan, [facility] [address] [id number] [address] [place] [address], [place] [address] Jan, [facility] [address] [id number] [address] [place] [address], [place] [address] Jan, [facility] [address] [id number] [address] [place] [address], [place] [address] Jan, [facility] [address] [id number] [address] [place] [address], [place] [address] Jan, [facility] [address] [id number] [address] [place] [address], [place] [address] Jan, [facility] [address] [id number] [address] [place] [address], [place] [address] Dec, [facility] [address] [id number] [address] [place] [address], [place] [address] Dec, [facility] [address] [id number] [address] [place] [address], [place] [address] Dec, [facility] [address] [id number] [address] [place] [address], [place] [address] Dec, [facility] [address] [id number] [address] [place] [address], [place] [address] Dec, [facility] [address] [id number] [facility] [place] [address] Dec, [facility] [address] [id number] [address] [place] [address], [place] [address] Dec, [facility] [address] [id number] [address] [place] [address], [place] [address] Dec, [facility] [address] [id number] [address] [place] [address], [place] [address] Dec, [facility] [address] [id number] [address] [place] [address], [place] [address] November, [facility] [address] [id number] [address] [place] [address], [place] [address] November, [facility] [address] [id number] [address] [place] [address], [place] [address] November, [facility] [address] [id number] [address] [place] [address], [place] [address] November, [facility] [address] [id number] [address] [place] [address], [place] [address] November, [facility] [address] [id number] [address] [place] [address], [place] [address] November, [facility] [address] [id number] [address] [place] [address], [place] [address] November, [facility] [address] [id number] [address] [place] [address], [place] [address] November, [facility] [address] [id number] [address] [place] [address], [place] [address] November, [facility] [address] [id number] [address] [place] [address], [place] [address] November, [facility] [address] [id number] [address] [place] [address], [place] [address] November, [facility] [address] [id number] [address] [place] [address], [place] [address] November, [facility] [address] [id number] [facility] [place] [address] November, [facility] [address] [id number] [address] [place] [address], [place] [address] November, [facility] [address] [id number] [address] [place] [address], [place] [address] Oct, [facility] [address] [id number] [address] [place] [address], [place] [address] Oct, [facility] [address] [id number] [address] [place] [address], [place] [address] Oct, [facility] [address] [id number] [address] [place] [address], [place] [address] Oct, [facility] [address] [id number] [address] [place] [address], [place] [address] Oct, [facility] [address] [id number] [address] [place] [address], [place] [address] Oct, [facility] [address] [id number] [address] [place] [address], [place] [address] Sep, [facility] [address] [id number] [address] [place] [address], [place] [address] Sep, [facility] [address] [id number] [address] [place] [address], [place] [address] Sep, [facility] [address] [id number] [address] [place] [address], [place] [address] Sep, [facility] [address] [id number] [address] [place] [address], [place] [address] Aug, [facility] [address] [id number] [address] [place] [address], [place] [address] Aug, [facility] [address] [id number] [address] [place] [address], [place] [address] Aug, [facility] [facility] [address] [id number] [address] [place] [address], [place] [address] Aug, [facility] [address] [id number] [address] [place] [address], [place] [address] Jul, [facility] [address] [id number] [address] [place] [address], [place] [address] Jul, [facility] [address] [id number] [address] [place] [address], [place] [address] Jul, [facility] [address] [id number] [address] [place] [address], [place] [address] Jul, [facility] [address] [id number] [address] [place] [address], [place] [address] Jul, [facility] [address] [id number] [address] [place] [address], [place] [address] Jul, [facility] [address] [id number] [address] [place] [address], [place] [address] Jul, [facility] [address] [id number] [address] [place] [address], [place] [address] Jun, [facility] [address] [id number] [address] [place] [address], [place] [address] Jun, [facility] [address] [id number] [address] [place] [address], [place] [address] Jun, [facility] [address] [id number] [address] [place] [address], [place] [address] 17 Jun, 2013 [facility] [address] [id number] [address] [place] [address], [place] [address] Jun, [facility] [address] [id number] [address] [place] [address], [place] [address] Jun, [facility] [address] [id number] [address] [place] [address], [place] [address] May, [facility] [address] [id number] [address] [place] [address], [place] [address] May, [facility] [address] [id number] [address] [place] [address], [place] [address] 15 Apr, 2013 [facility] [address] [id number] [address] [place] [address], [place] [address] 15 Apr, 2013 [facility] [address] [id number] [address] [place] [address], [place] [address] 10 Apr, 2013 [facility] [address] [id number] [address] [place] [address], [place] [address] 10 Apr, 2013 [facility] [address] [id number] [address] [place] [address], [place] [address] 08 Apr, 2013 [facility] [address] [id number] [address] [place] [address], [place] [address] 24 Mar, 2013 [facility] [address] [id number] [address] [place] [address], [place] [address] 19 Mar, 2013 [facility] [address] [id number] [address] [place] [address], [place] [address] Mar, [facility] [address] [id number] [address] [place] [address], [place] [address] Mar, [facility] [address] [id number] [address] [place] [address], [place] [address] Feb, [facility] [address] [id number] [address] [place] [address], [place] [address] Feb, [facility] [address] [id number] [address] [place] [address], [place] [address] Jan, [facility] [address] [id number] [address] [place] [address], [place] [address] Jan, [facility] [address] [id number] [address] [place] [address], [place] [address] Jan, [facility] [address] [id number] [address] [place] [address], [place] [address] Jan, [facility] [address] [id number] [address] [place] [address], [place] [address] 28 Dec, 2012 [facility] [address] [id number] [address] [place] [address], [place] [address] 15 Dec, 2012 [facility] [address] [id number] [address] [place] [address], [place] [address] 07 Dec, 2012 [facility] [address] [id number] [address] [place] [address], [place] [address] 06 Dec, 2012 [facility] [address] [id number] [address] [place] [address], [place] [address] 16 Nov, 2012 [facility] [address] [id number] [address] [place] [address], [place] [address] November, [facility] [address] [id number] [address] [place] [address], [place] [address] 18 Oct, 2012 [facility] [address] [id number] [address] [place] [address], [place] [address] Sep, [facility] [address] [id number] [address] [place] [address], [place] [address] 08 Sep, 2012 [facility] [address] [id number] [address] [place] [address], [place] [address] 14 Aug, 2012 [facility] [address] [id number] [address] [place] [address], [place] [address] 13 Aug, 2012 [facility] [address] [id number] [address] [place] [address], [place] [address] Jul, [facility] [address] [id number] [address] [place] [address], [place] [address] Jul, [facility] [address] [id number] [address] [place] [address], [place] [address] Jul, [facility] [address] [id number] [address] [place] [address], [place] [address] Jun, [facility] [address] [id number] [address] [place] [address], [place] [address] Jun, [facility] [address] [id number] [address] [place] [address], [place] [address] 15 Jun, 2012 [facility] [address] [id number] [address] [place] [address], [place] [address] 15 Jun, 2012 [facility] [address] [id number] [address] [place] [address], [place] [address] May, [facility] [address] [id number] [address] [place] [address], [place] [address] May, [facility] [address] [id number] [address] [place] [address], [place] [address] May, [facility] [address] [id number] [address] [place] [address], [place] [address] May, [facility] [address] [id number] [address] [place] [address], [place] [address] May, [facility] [address] [id number] [address] [place] [address], [place] [address] May, [facility] [address] [id number] [address] [place] [address], [place] [address] May, [facility] [address] [id number] [address] [place] [address], [place] [address] 15 Apr, 2012 [facility] [address] [id number] [address] [place] [address], [place] [address] 15 Apr, 2012 [facility] [address] [id number] [address] [place] [address], [place] [address] Apr, [facility] [address] [id number] [address] [place] [address] Apr, [facility] [address] [id number] [address] [place] [address], [place] [address] Apr, [facility] [address] [id number] [address] [place] [address], [place] [address] Apr, [facility] [address] [id number] [address] [place] [address], [place] [address] Apr, [facility] [address] [id number] [address] [place] [address], [place] [address] Apr, [facility] [address] [id number] [address] [place] [address], [place] [address] Jan, [facility] [address] [id number] [address] [place] [address], [place] [address] Jan, [facility] [address] [id number] [address] [place] [address], [place] [address] Dec, [facility] [address] [id number] [address] [place] [address], [place] [address] November, [facility] [address] [id number] [address] [place] [address], [place] [address] Oct, [facility] [address] [id number] [address] [place] [address], [place] [address] Oct, [facility] [address] [id number] [address] [place] [address], [place] [address] Oct, [facility] [address] [id number] [address] [place] [address], [place] [address] Oct, [facility] [address] [id number] [address] [place] [address], [place] [address] Sep, [facility] [address] [id number] [address] [place] [address], [place] [address] Sep, [facility] [address] [id number] [address] [place] [address], [place] [address] Sep, [facility] [address] [id number] [address] [place] [address], [place] [address] Jun, [facility] [address] [id number] [address] [place] [address], [place] [address] Jun, [facility] [address] [id number] [address] [place] [address], [place] [address] May, [facility] [address] [id number] [address] [place] [address] 14 Jan, 2011 [facility] [address] [id number] [address] [place] [address] November, [facility] [address] [id number] [address] [place] [address] 14 Oct, 2010 [facility] [address] [id number] [address] [place] [address] 16 Sep, 2010 [facility] [address] [id number] [address] [place] [address] 30 May, 2010 [facility] [address] [id number] [address] [place] [address] Jul, [facility] [address] [id number] [address] [place] [address] Jun, [facility] [address] [id number] [address] [place] [address] Jun, [facility] [address] [id number] [address] [place] [address] Jun, [facility] [address] [id number] [address] [place] [address] Jun, [facility] [address] [id number] [address] [place] [address] May, [facility] [address] [id number] [address] [place] [address] May, [facility] [address] [id number] [address] [place] [address] Apr, [facility] [address] [id number] [address] [place] [address] Apr, [facility] [address] [id number] [address] [place] [address] Apr, IMMUNIZATIONS No Known Immunizations SOCIAL HISTORY [...] right 06/1996 Surgical History multiple knee injections ([id number]) Surgical History left knee replacement 06/11 Hospitalization History Knee surgery- x 3 days 06/11
--- OUTSIDE RECORDS SUMMARY | 2019-12-16 20:23 | XMS REPORT ---
Author Author Patti AGEE Organization [facility] Address [address] [place] [address] Care Team Providers Care Charge Preparation Technician Name Role Phone GEOVANNY AGEE Unavailable PROBLEMS Type Condition ICD9-CM Code CEX30-VG Code Onset Dates Condition S tatus SNOMED Code Problem ADD (attention deficit disorder) F90.0 Active 845888546 Problem Drug abuse counseling and surveillance of drug abuser Z71.51 Active 632054451 Problem Insomnia G47.00 Active 012581465 Problem Joint pain M25.50 Active 01184959 Problem Edema, unspecified type R60.9 Active 794588352 Problem Episode of recurrent major d epressive disorder, unspecified depression episode severity F33.9 Active 725585879 Problem Venous insufficiency (chronic) (peripheral) I87.2 Active [id number] Problem Carpal tunnel syndrome on left G56.02 Active [id number] Problem Manic bipolar I disorder in partial remission F31. 73 Active 61296637 Problem Bipolar affective disorder, currently depressed, moderate F31.32 Active 473743206 Problem Social anxiety disorder F40.10 Active 75741874 Problem Other chronic pain G89.29 Active 8 1936543 Problem Stimulant abuse F15.10 Active 1525 74602 Problem Bipolar II disorder F31.81 Active 74435626 Problem ADD (attention deficit disorder) without hyperactivity F98.8 Active 52311249 ALLERGIES No Information ENCOUNTERS Encounter Location Date Diagnosis [facility] [address] [facility] [id number] [address] [place] [address] Aug, [facility] [address] [facility] [id number] [address] [place] [address] Aug, Bipolar II disorder F31.81 ; Social anxiety disorder F40.10 and ADD (attention deficit disorder) F90.0 [facility] [address] [facility] [id number] [address] [place] [address] Jul, [facility] [address] [facility] [id number] [address] [place] [address] Apr, [place] [address] [facility] [id number] [address] [place] [address] Apr, Bipolar II disorder F31.81 a nd Social anxiety disorder F40.10 [place] [address] [facility] [id number] [address] [place] [address] Jan, Bipolar affective disorder, currently depressed, moderate F31.32 [place] [address] [facility] [id number] [address] [place] [address] Jan, Bipolar affective disorder, currently depressed, moderate F31.32 ; Social anxiety disorder F40.10 and Morbid obesity E66.01 [place] [address] [facility] [id number] [address] [place] [address] May, Screening for lipid disorder s Z13.220 [place] [address] [place] [id number] [address] [place] [address] May, Carpal tunnel syndrome on le ft G56.02 ; Social anxiety disorder F40.10 and Screening for lipid disorders Z13.220 [place] [address] [facility] [id number] [address] [place] [address] 11 Apr, 2018 Bipolar II disorder F31.81 ; Social anxiety disorder F40.10 ; ADD (attention deficit disorder) without hyperactivity F98.8 and BMI 45.0-49.9, adult Z68.42 [place] [address] [facility] [id number] [address] [place] [address] Mar, [place] [address] [facility] [id number] [address] [place] [address] Feb, BMI 45.0-49.9, adult Z68.42 ; Carpal tunnel syndrome on left G56.02 and Social anxiety disorder F40.10 [place] [address] [facility] [id number] [address] [place] [address] Jan, Bipolar II disorder F31.81 ; ADD (attention deficit disorder) without hyperactivity F98.8 ; Social anxiety disorder F40.10 and Stimulant abuse F15.10 [facility] [address] [place] [id number] [address] [place] [address] Dec, Episode of recurrent major d epressive disorder, unspecified depression episode severity F33.9 ; Other chronic pain G89.29 ; Radiculopathy, lumbar region M54.16 ; Edema of lower extremity R60.0 and BMI 45.0-49.9, adult Z68.42 [place] [id number] [place] [address] Jun, [place] [address] [place] [id number] [place] [address] Jan, Joint pain M25.50 [place] [address] [place] [id number] [address] [place] [address] Jan, Wellness examination Z00.00 ; Pain in right knee M25.561 ; Pain in left knee M25.562 ; Edema, unspecified type R60.9 and Drug abuse counseling and surveillance of drug abuser Z71.51 [place] [address] [place] [id number] [address] [place] [address] November, [place] [address] [place] [id number] [address] [place] [address] Oct, [facility] [address] [place] [id number] [address] [place] [address] Oct, ADD (attention deficit disor josselin) F90.0 ; Social anxiety disorder F40.10 and Manic bipolar I disorder in partial remission F31.73 [facility] [address] [place] [id number] [address] [place] [address] Aug, [facility] [address] [place] [id number] [address] [place] [address] Aug, [facility] [address] [place] [id number] [address] [place] [address] Aug, [facility] [address] [facility] [id number] [address] [place] [address] Jul, [facility] [address] [facility] [id number] [address] [place] [address] Jul, [facility] [address] [facility] [id number] [address] [place] [address] Jul, [facility] [address] [facility] [id number] [address] [place] [address] Jun, [facility] [address] [facility] [id number] [address] [place] [address] Jun, [facility] [address] [facility] [id number] [address] [place] [address] Jun, [facility] [address] [facility] [id number] [address] [place] [address] Jun, [facility] [address] [facility] [id number] [address] [place] [address] May, Joint pain M25.50 ; ADD (att ention deficit disorder) F90.0 ; Edema R60.9 and Insomnia G47.00 [facility] [address] [facility] [id number] [address] [place] [address] May, [facility] [address] [facility] [id number] [address] [place] [address] May, [facility] [address] [facility] [id number] [address] [place] [address] May, [facility] [address] [facility] [id number] [address] [place] [address] May, Left wrist pain M25.532 ; Si nusitis J32.9 and Drug abuse counseling and surveillance of drug abuser Z71.51 [facility] [address] [facility] [id number] [address] [place] [address] Apr, [facility] [address] [facility] [id number] [address] [place] [address] 15 Apr, 2015 [facility] [address] [facility] [id number] [address] [place] [address] 15 Apr, 2015 [facility] [address] [facility] [id number] [address] [place] [address] 14 Apr, 2015 [facility] [address] [facility] [id number] [address] [place] [address] Apr, [facility] [address] [facility] [id number] [address] [place] [address] Apr, [facility] [address] [facility] [id number] [address] [place] [address] Apr, [facility] [address] [facility] [id number] [address] [place] [address] 21 Mar, 2015 Unspecified venous (peripher al) insufficiency 459.81 ; Bipolar I disorder, most recent episode (or current) manic, moderate 296.42 ; Social phobia 300.23 ; Attention deficit disorder of childhood without mention of hyperactivity 314.00 ; Pain in joint, lower leg 719.46 ; Thrombosis 453.9 and Chronic pain 338.29 [facility] [address] [facility] [id number] [address] [place] [address] 18 Mar, 2015 [facility] [address] [facility] [id number] [address] [place] [address] 18 Mar, 2015 [facility] [address] [facility] [id number] [address] [place] [address] 18 Mar, 2015 [facility] [address] [facility] [id number] [address] [place] [address] 17 Mar, 2015 [facility] [address] [facility] [id number] [address] [place] [address] 17 Mar, 2014 [facility] [address] [facility] [id number] [address] [place] [address] 11 Mar, 2015 [facility] [address] [facility] [id number] [address] [place] [address] Mar, Manic bipolar I disorder in partial remission 296.45 ; Social phobia 300.23 and Attention deficit disorder of childhood without mention of hyperactivity 314.00 [facility] [address] [facility] [id number] [address] [place] [address] Mar, [facility] [address] [facility] [id number] [address] [place] [address] Feb, [facility] [address] [facility] [id number] [address] [place] [address] Feb, Thrombosis 453.9 ; Unspecifi ed venous (peripheral) insufficiency 459.81 ; Bipolar I disorder, most recent episode (or current) manic, moderate 296.42 ; Social phobia 300.23 ; Attention deficit disorder of childhood without mention of hyperactivity 314.00 ; Pain in joint, lower leg 719.46 and Edema 782.3 [place] [address] [place] [id number] [address] [place] [address] Feb, [facility] [address] [place] [id number] [address] [place] [address] Feb, Social phobia 300.23 ; Atten tion deficit disorder of childhood without mention of hyperactivity 314.00 and Bipolar I disorder, most recent episode manic, in partial remission 296.45 [facility] [address] [facility] [id number] [address] [place] [address] Jan, [facility] [address] [place] [id number] [address] [place] [address] Jan, [facility] [address] [place] [id number] [address] [place] [address] Jan, Unspecified venous (peripher al) insufficiency 459.81 and Thrombophlebitis 451.9 [facility] [address] [facility] [id number] [address] [place] [address] Jan, [facility] [address] [facility] [id number] [address] [place] [address] Dec, Headache 784.0 and Back pain 724.5 [facility] [address] [id number] [address] [place] [address] Dec, [facility] [address] [id number] [address] [place] [address] Dec, Bipolar I disorder, most rec ent episode (or current) manic, moderate 296.42 ; Attention deficit disorder of childhood without mention of hyperactivity 314.00 and Social phobia 300.23 [facility] [address] [id number] [address] [place] [address] November, [facility] [address] [id number] [address] [place] [address] November, [facility] [address] [facility] [id number] [address] [place] [address] Oct, [facility] [address] [facility] [id number] [address] [place] [address] Oct, [facility] [address] [facility] [id number] [address] [place] [address] Sep, [facility] [address] [id number] [address] [place] [address] Sep, [facility] [address] [facility] [id number] [address] [place] [address] Aug, [facility] [address] [facility] [id number] [address] [place] [address] Aug, [facility] [address] [facility] [id number] [address] [place] [address] Aug, [facility] [address] [facility] [id number] [address] [place] [address] Aug, [facility] [address] [facility] [id number] [address] [place] [address] Aug, [facility] [address] [facility] [id number] [address] [place] [address] Aug, [facility] [address] [id number] [address] [place] [address], [place] [address] Aug, [facility] [address] [id number] [address] [place] [address], [place] [address] Jul, [facility] [address] [id number] [address] [place] [address], [place] [address] Jul, [facility] [address] [id number] [address] [place] [address], [place] [address] Jun, [facility] [address] [id number] [address] [place] [address], [place] [address] Jun, [facility] [address] [id number] [address] [place] [address], [place] [address] May, [facility] [address] [id number] [address] [place] [address], [place] [address] May, [facility] [address] [id number] [address] [place] [address], [place] [address] May, [facility] [address] [id number] [address] [place] [address], [place] [address] May, [facility] [address] [id number] [address] [place] [address], [place] [address] May, [facility] [address] [id number] [address] [place] [address], [place] [address] May, [facility] [address] [id number] [address] [place] [address], [place] [address] Apr, [facility] [address] [id number] [address] [place] [address], [place] [address] Apr, [facility] [address] [id number] [address] [place] [address], [place] [address] Apr, [facility] [address] [id number] [address] [place] [address], [place] [address] Apr, [facility] [address] [id number] [address] [place] [address], [place] [address] 22 Sep, 2013 [facility] [address] [id number] [facility] [place] [address] 22 Sep, 2013 [facility] [address] [id number] [address] [place] [address], [place] [address] 19 Sep, 2013 [facility] [address] [id number] [address] [place] [address], [place] [address] 16 Sep, 2013 [facility] [address] [id number] [address] [place] [address], [place] [address] 16 Sep, 2013 [facility] [address] [id number] [address] [place] [address], [place] [address] 15 Mar, 2013 [facility] [address] [id number] [address] [place] [address], [place] [address] 11 Mar, 2013 [facility] [address] [id number] [address] [place] [address], [place] [address] 11 Mar, 2013 [facility] [address] [id number] [address] [place] [address], [place] [address] 11 Mar, 2013 [facility] [address] [id number] [address] [place] [address], [place] [address] 11 Mar, 2013 [facility] [address] [id number] [address] [place] [address], [place] [address] 10 Mar, 2013 [facility] [address] [id number] [address] [place] [address], [place] [address] 09 Mar, 2013 [facility] [address] [id number] [address] [place] [address], [place] [address] 09 Mar, 2013 [facility] [address] [id number] [address] [place] [address], [place] [address] 02 Mar, 2013 [facility] [address] [id number] [address] [place] [address], [place] [address] 02 Mar, 2013 [facility] [address] [id number] [address] [place] [address], [place] [address] 29 Feb, 2014 [facility] [address] [id number] [address] [place] [address], [place] [address] Feb, [facility] [address] [id number] [address] [place] [address], [place] [address] Feb, [facility] [address] [id number] [address] [place] [address], [place] [address] Feb, [facility] [address] [id number] [address] [place] [address], [place] [address] Feb, [facility] [address] [id number] [address] [place] [address], [place] [address] Feb, [facility] [address] [id number] [address] [place] [address], [place] [address] Feb, [facility] [address] [id number] [address] [place] [address], [place] [address] Feb, [facility] [address] [id number] [address] [place] [address], [place] [address] Feb, [facility] [address] [id number] [address] [place] [address], [place] [address] Feb, [facility] [address] [id number] [address] [place] [address], [place] [address] Feb, [facility] [address] [id number] [address] [place] [address], [place] [address] Feb, [facility] [address] [id number] [address] [place] [address], [place] [address] Feb, [facility] [address] [id number] [address] [place] [address], [place] [address] Feb, [facility] [address] [id number] [address] [place] [address], [place] [address] Jan, [facility] [address] [id number] [address] [place] [address], [place] [address] Jan, [facility] [address] [id number] [address] [place] [address], [place] [address] Jan, [facility] [address] [id number] [address] [place] [address], [place] [address] Jan, [facility] [address] [id number] [address] [place] [address], [place] [address] Jan, [facility] [address] [id number] [address] [place] [address], [place] [address] Jan, [facility] [address] [id number] [address] [place] [address], [place] [address] Jan, [facility] [address] [id number] [address] [place] [address], [place] [address] Dec, [facility] [address] [id number] [address] [place] [address], [place] [address] Dec, [facility] [address] [id number] [address] [place] [address], [place] [address] Dec, [facility] [address] [id number] [address] [place] [address], [place] [address] Dec, [facility] [address] [id number] [address] [place] [address], [place] [address] Dec, [facility] [address] [id number] [address] [place] [address], [place] [address] Dec, [facility] [address] [id number] [address] [place] [address], [place] [address] Dec, [facility] [address] [id number] [address] [place] [address], [place] [address] Dec, [facility] [address] [id number] [address] [place] [address], [place] [address] Dec, [facility] [address] [id number] [address] [place] [address], [place] [address] November, [facility] [address] [id number] [address] [place] [address], [place] [address] November, [facility] [address] [id number] [address] [place] [address], [place] [address] November, [facility] [address] [id number] [address] [place] [address], [place] [address] November, [facility] [address] [id number] [address] [place] [address], [place] [address] November, [facility] [address] [id number] [address] [place] [address], [place] [address] November, [facility] [address] [id number] [address] [place] [address], [place] [address] November, [facility] [address] [id number] [address] [place] [address], [place] [address] November, [facility] [address] [id number] [address] [place] [address], [place] [address] November, [facility] [address] [id number] [address] [place] [address], [place] [address] November, [facility] [address] [id number] [address] [place] [address], [place] [address] November, [facility] [address] [id number] [address] [place] [address], [place] [address] November, [facility] [address] [id number] [address] [place] [address], [place] [address] November, [facility] [address] [id number] [address] [place] [address], [place] [address] November, [facility] [address] [id number] [address] [place] [address], [place] [address] Oct, [facility] [address] [id number] [address] [place] [place] [address] [address] Oct, [facility] [address] [id number] [address] [place] [address], [place] [address] Oct, [facility] [address] [id number] [address] [place] [address], [place] [address] Oct, [facility] [address] [id number] [address] [place] [address], [place] [address] Oct, [facility] [address] [id number] [address] [place] [address], [place] [address] Oct, [facility] [address] [id number] [address] [place] [address], [place] [address] Sep, [facility] [address] [id number] [address] [place] [address], [place] [address] Sep, [facility] [address] [id number] [address] [place] [address], [place] [address] Sep, [facility] [address] [id number] [address] [place] [address], [place] [address] Sep, [facility] [address] [id number] [address] [place] [address], [place] [address] Aug, [facility] [address] [id number] [address] [place] [address], [place] [address] Aug, [facility] [address] [id number] [address] [place] [address], [place] [address] Aug, [facility] [address] [id number] [address] [place] [address], [place] [address] Aug, [facility] [address] [id number] [address] [place] [address], [place] [address] Jul, [facility] [address] [id number] [address] [place] [address], [place] [address] Jul, [facility] [address] [id number] [address] [place] [address], [place] [address] Jul, [facility] [address] [id number] [address] [place] [address], [place] [address] Jul, [facility] [address] [id number] [address] [place] [address], [place] [address] Jul, [facility] [address] [id number] [address] [place] [address], [place] [address] 14 Jul, 2013 [facility] [address] [id number] [address] [place] [address], [place] [address] 14 Jul, 2013 [facility] [address] [id number] [address] [place] [address], [place] [address] 27 Jun, 2013 [facility] [address] [id number] [address] [place] [address], [place] [address] 27 Jun, 2013 [facility] [address] [id number] [address] [place] [address], [place] [address] 17 Jun, 2013 [facility] [address] [id number] [address] [place] [address], [place] [address] 17 Jun, 2013 [facility] [address] [id number] [address] [place] [address], [place] [address] Jun, [facility] [address] [id number] [address] [place] [address], [place] [address] Jun, [facility] [address] [id number] [address] [place] [address], [place] [address] 07 May, 2013 [facility] [address] [id number] [address] [place] [address], [place] [address] 07 May, 2013 [facility] [address] [id number] [address] [place] [address], [place] [address] 15 Apr, 2013 [facility] [address] [id number] [address] [place] [address], [place] [address] 15 Apr, 2013 [facility] [address] [id number] [address] [place] [address] 10 Apr, 2013 [facility] [address] [id number] [address] [place] [address], [place] [address] 10 Apr, 2013 [facility] [address] [id number] [address] [place] [address], [place] [address] 08 Apr, 2013 [facility] [address] [id number] [address] [place] [address], [place] [address] 24 Mar, 2013 [facility] [address] [id number] [address] [place] [address], [place] [address] Mar, [facility] [address] [id number] [address] [place] [address], [place] [address] Mar, [facility] [address] [id number] [address] [place] [address], [place] [address] Mar, [facility] [address] [id number] [address] [place] [address], [place] [address] Feb, [facility] [address] [id number] [address] [place] [address], [place] [address] Feb, [facility] [address] [id number] [address] [place] [address], [place] [address] Jan, [facility] [address] [id number] [address] [place] [address], [place] [address] Jan, [facility] [address] [id number] [address] [place] [address], [place] [address] Jan, [facility] [address] [id number] [address] [place] [address], [place] [address] Jan, [facility] [address] [id number] [address] [place] [address], [place] [address] Dec, [facility] [address] [id number] [address] [place] [address], [place] [address] Dec, [facility] [address] [id number] [address] [place] [address], [place] [address] Dec, [facility] [address] [id number] [address] [place] [address], [place] [address] Dec, [facility] [address] [id number] [address] [place] [address], [place] [address] November, [facility] [address] [id number] [address] [place] [address], [place] [address] November, [facility] [address] [id number] [address] [place] [address], [place] [address] Oct, [facility] [address] [id number] [address] [place] [address], [place] [address] 20 Sep, 2012 [facility] [address] [id number] [address] [place] [address], [place] [address] 08 Sep, 2012 [facility] [address] [id number] [address] [place] [address], [place] [address] 14 Aug, 2012 [facility] [address] [id number] [address] [place] [address], [place] [address] 13 Aug, 2012 [facility] [address] [id number] [address] [place] [address], [place] [address] 18 Jul, 2012 [facility] [address] [id number] [address] [place] [address], [place] [address] Jul, [facility] [address] [id number] [address] [place] [address], [place] [address] Jul, [facility] [address] [id number] [address] [place] [address], [place] [address] 28 Jun, 2012 [facility] [address] [id number] [address] [place] [address], [place] [address] 28 Jun, 2012 [facility] [address] [id number] [address] [place] [address], [place] [address] 15 Jun, 2012 [facility] [address] [id number] [address] [place] [address], [place] [address] 15 Jun, 2012 [facility] [address] [id number] [address] [place] [address] 20 May, 2012 [facility] [address] [id number] [address] [place] [address], [place] [address] 20 May, 2012 [facility] [address] [id number] [address] [place] [address], [place] [address] 19 May, 2012 [facility] [address] [id number] [address] [place] [address], [place] [address] 14 May, 2012 [facility] [address] [id number] [address] [place] [address] May, [facility] [address] [id number] [address] [place] [address], [place] [address] May, [facility] [address] [id number] [address] [place] [address] May, [facility] [address] [id number] [address] [place] [address], [place] [address] Apr, [facility] [address] [id number] [address] [place] [address], [place] [address] Apr, [facility] [address] [id number] [address] [place] [address], [place] [address] Apr, [facility] [address] [id number] [address] [place] [address], [place] [address] Apr, [facility] [address] [id number] [address] [place] [address], [place] [address] Apr, [facility] [address] [id number] [address] [place] [address], [place] [address] Apr, [facility] [address] [id number] [address] [place] [address], [place] [address] Apr, [facility] [address] [id number] [address] [place] [id number] Apr, [facility] [address] [id number] [address] [place] [address], [place] [address] Jan, [facility] [address] [id number] [address] [place] [address] Jan, [facility] [address] [id number] [address] [place] [address] Dec, [facility] [address] [id number] [address] [place] [address], [place] [address] November, [facility] [address] [id number] [address] [place] [address], [place] [address] Oct, [facility] [address] [id number] [address] [place] [address], [place] [address] 10 Oct, 2011 [facility] [address] [id number] [address] [place] [address], [place] [address] 03 Oct, 2011 [facility] [address] [id number] [address] [place] [address], [place] [address] 02 Oct, 2011 [facility] [address] [id number] [address] [place] [address], [place] [address] Sep, [facility] [address] [id number] [address] [place] [address], [place] [address] Sep, [facility] [address] [id number] [address] [place] [address], [place] [address] Sep, [facility] [address] [id number] [address] [place] [address], [place] [address] 13 Jun, 2011 [facility] [address] [id number] [address] [place] [address], [place] [address] 13 Jun, 2011 [facility] [address] [id number] [address] [place] [address], [place] [address] May, [facility] [address] [id number] [address] [place] [address], [place] [address] 14 Jan, 2011 [facility] [address] [id number] [address] [place] [address], [place] [address] November, [facility] [address] [id number] [address] [place] [address], [place] [address] 14 Oct, 2010 [facility] [address] [id number] [address] [place] [address], [place] [address] 16 Sep, 2010 [facility] [address] [id number] [address] [place] [address], [place] [address] 30 May, 2010 [facility] [address] [id number] [address] [place] [address], [place] [address] Jul, [facility] [address] [id number] [address] [place] [address] [address] Jun, [facility] [address] [id number] [address] [place] [address] Jun, [facility] [address] [id number] [address] [place] [id number] Jun, [facility] [address] [id number] [address] [place] [address] Jun, [facility] [address] [id number] [address] [place] [address] May, [facility] [address] [id number] [address] [place] [address] May, [facility] [address] [id number] [address] [place] [address] Apr, [facility] [address] [id number] [address] [place] [id number] Apr, [facility] [address] [id number] [address] [place] [id number] Apr, IMMUNIZATIONS No Known Immunizations SOCIAL HISTORY [...] right 06/1996 Surgical History multiple knee injections ([id number]) Surgical History left knee replacement 06/11 Hospitalization History Knee surgery- x 3 days 06/11
--- OUTSIDE RECORDS SUMMARY | 2019-12-16 20:23 | XMS REPORT ---
Author Author Patti HERNANDEZ Organization [facility] Address [address] [place] [address] Care Team Providers Care Zoology Teacher Name Role Phone DARLING HERNANDEZ Unavailable PROBLEMS Type Condition ICD9-CM Code [id number] Code Onset Dates Condition S tatus SNOMED Code Problem ADD (attention deficit disorder) F90.0 Active 923580095 Problem Drug abuse counseling and surveillance of drug abuser Z71.51 Active 044728283 Problem Insomnia G47.00 Active 238757808 Problem Joint pain M25.50 Active 55989218 Problem Edema, unspecified type R60.9 Active 717002774 Problem Episode of recurrent major d epressive disorder, unspecified depression episode severity F33.9 Active 240569759 Problem Venous insufficiency (chronic) (peripheral) I87.2 Active [id number] Problem Carpal tunnel syndrome on left G56.02 Active [id number] Problem Manic bipolar I disorder in partial remission F31. 73 Active 52896292 Problem Bipolar affective disorder, currently depressed, moderate F31.32 Active 574906179 Problem Social anxiety disorder F40.10 Active 40957848 Problem Other chronic pain G89.29 Active 8 1776588 Problem Stimulant abuse F15.10 Active 4415 13636 Problem Bipolar II disorder F31.81 Active 48197866 Problem ADD (attention deficit disorder) without hyperactivity F98.8 Active 57762034 ALLERGIES No Information ENCOUNTERS Encounter Location Date Diagnosis [facility] [address] [facility] [id number] [address] [place] [phone] Aug, [facility] [address] [facility] [id number] [address] [place] [phone] Aug, Bipolar II disorder F31.81 ; Social anxiety disorder F40.10 and ADD (attention deficit disorder) F90.0 [facility] [address] [facility] [id number] [address] [place] [phone] Jul, [facility] [address] [facility] [id number] [address] [place] [phone] Apr, [place] [address] [facility] [id number] [address] [place] [phone] Apr, Bipolar II disorder F31.81 a nd Social anxiety disorder F40.10 [place] [address] [facility] [id number] [address] [place] [phone] Jan, Bipolar affective disorder, currently depressed, moderate F31.32 [place] [address] [facility] [id number] [address] [place] [phone] Jan, Bipolar affective disorder, currently depressed, moderate F31.32 ; Social anxiety disorder F40.10 and Morbid obesity E66.01 [place] [address] [facility] [id number] [address] [place] [phone] May, Screening for lipid disorder s Z13.220 [place] [address] [place] [id number] [address] [place] [id number] May, Carpal tunnel syndrome on le ft G56.02 ; Social anxiety disorder F40.10 and Screening for lipid disorders Z13.220 [place] [address] [facility] [id number] [address] [place] [id number] 11 Apr, 2018 Bipolar II disorder F31.81 ; Social anxiety disorder F40.10 ; ADD (attention deficit disorder) without hyperactivity F98.8 and BMI 45.0-49.9, adult Z68.42 [place] [address] [facility] [id number] [address] [place] [phone] Mar, [place] [address] [facility] [id number] [address] [place] [id number] Feb, BMI 45.0-49.9, adult Z68.42 ; Carpal tunnel syndrome on left G56.02 and Social anxiety disorder F40.10 [place] [address] [facility] [id number] [address] [place] [phone] Jan, Bipolar II disorder F31.81 ; ADD (attention deficit disorder) without hyperactivity F98.8 ; Social anxiety disorder F40.10 and Stimulant abuse F15.10 [facility] [address] [place] [id number] [address] [place] [phone] Dec, Episode of recurrent major d epressive disorder, unspecified depression episode severity F33.9 ; Other chronic pain G89.29 ; Radiculopathy, lumbar region M54.16 ; Edema of lower extremity R60.0 and BMI 45.0-49.9, adult Z68.42 [place] [id number] [place] [phone] Jun, [place] [address] [place] [id number] [place] [phone] Jan, Joint pain M25.50 [place] [address] [place] [id number] [address] [place] [phone] Jan, Wellness examination Z00.00 ; Pain in right knee M25.561 ; Pain in left knee M25.562 ; Edema, unspecified type R60.9 and Drug abuse counseling and surveillance of drug abuser Z71.51 [place] [address] [place] [id number] [address] [place] [phone] November, [place] [address] [place] [id number] [address] [place] [phone] Oct, [facility] [address] [place] [id number] [address] [place] [phone] Oct, ADD (attention deficit disor josselin) F90.0 ; Social anxiety disorder F40.10 and Manic bipolar I disorder in partial remission F31.73 [facility] [address] [place] [id number] [address] [place] [phone] Aug, [facility] [address] [place] [id number] [address] [place] [phone] Aug, [facility] [address] [place] [id number] [address] [place] [phone] Aug, [facility] [address] [facility] [id number] [address] [place] [phone] Jul, [facility] [address] [facility] [id number] [address] [place] [phone] Jul, [facility] [address] [facility] [id number] [address] [place] [phone] Jul, [facility] [address] [facility] [id number] [address] [place] [phone] Jun, [facility] [address] [facility] [id number] [address] [place] [phone] Jun, [facility] [address] [facility] [id number] [address] [place] [phone] Jun, [facility] [address] [facility] [id number] [address] [place] [phone] Jun, [facility] [address] [facility] [id number] [address] [place] [phone] May, Joint pain M25.50 ; ADD (att ention deficit disorder) F90.0 ; Edema R60.9 and Insomnia G47.00 [facility] [address] [facility] [id number] [address] [place] [phone] May, [facility] [address] [facility] [id number] [address] [place] [phone] May, [facility] [address] [facility] [id number] [address] [place] [phone] May, [facility] [address] [facility] [id number] [address] [place] [address] May, Left wrist pain M25.532 ; Si nusitis J32.9 and Drug abuse counseling and surveillance of drug abuser Z71.51 [facility] [address] [facility] [id number] [address] [place] [phone] Apr, [facility] [address] [facility] [id number] [address] [place] [phone] 15 Apr, 2015 [facility] [address] [facility] [id number] [address] [place] [phone] 15 Apr, 2015 [facility] [address] [facility] [id number] [address] [place] [phone] 14 Apr, 2015 [facility] [address] [facility] [id number] [address] [place] [phone] Apr, [facility] [address] [facility] [id number] [address] [place] [phone] Apr, [facility] [address] [facility] [id number] [address] [place] [phone] Apr, [facility] [address] [facility] [id number] [address] [place] [phone] 21 Mar, 2015 Unspecified venous (peripher al) insufficiency 459.81 ; Bipolar I disorder, most recent episode (or current) manic, moderate 296.42 ; Social phobia 300.23 ; Attention deficit disorder of childhood without mention of hyperactivity 314.00 ; Pain in joint, lower leg 719.46 ; Thrombosis 453.9 and Chronic pain 338.29 [facility] [address] [facility] [id number] [address] [place] [phone] 18 Mar, 2015 [facility] [address] [facility] [id number] [address] [place] [phone] 18 Mar, 2015 [facility] [address] [facility] [id number] [address] [place] [phone] 18 Mar, 2015 [facility] [address] [facility] [id number] [address] [place] [phone] 17 Mar, 2015 [facility] [address] [facility] [id number] [address] [place] [phone] 17 Mar, 2014 [facility] [address] [facility] [id number] [address] [place] [phone] 11 Mar, 2015 [facility] [address] [facility] [id number] [address] [place] [phone] Mar, Manic bipolar I disorder in partial remission 296.45 ; Social phobia 300.23 and Attention deficit disorder of childhood without mention of hyperactivity 314.00 [facility] [address] [facility] [id number] [address] [place] [phone] Mar, [facility] [address] [facility] [id number] [address] [place] [phone] Feb, [facility] [address] [facility] [id number] [address] [place] [phone] Feb, Thrombosis 453.9 ; Unspecifi ed venous (peripheral) insufficiency 459.81 ; Bipolar I disorder, most recent episode (or current) manic, moderate 296.42 ; Social phobia 300.23 ; Attention deficit disorder of childhood without mention of hyperactivity 314.00 ; Pain in joint, lower leg 719.46 and Edema 782.3 [place] [address] [place] [id number] [address] [place] [phone] Feb, [facility] [address] [place] [id number] [address] [place] [phone] Feb, Social phobia 300.23 ; Atten tion deficit disorder of childhood without mention of hyperactivity 314.00 and Bipolar I disorder, most recent episode manic, in partial remission 296.45 [facility] [address] [facility] [id number] [address] [place] [phone] Jan, [facility] [address] [place] [id number] [address] [place] [phone] Jan, [facility] [address] [place] [id number] [address] [place] [phone] Jan, Unspecified venous (peripher al) insufficiency 459.81 and Thrombophlebitis 451.9 [facility] [address] [facility] [id number] [address] [place] [phone] Jan, [facility] [address] [facility] [id number] [address] [place] [phone] Dec, Headache 784.0 and Back pain 724.5 [facility] [address] [id number] [address] [place] [phone] Dec, [facility] [address] [id number] [address] [place] [phone] Dec, Bipolar I disorder, most rec ent episode (or current) manic, moderate 296.42 ; Attention deficit disorder of childhood without mention of hyperactivity 314.00 and Social phobia 300.23 [facility] [address] [id number] [address] [place] [phone] November, [facility] [address] [id number] [address] [place] [phone] November, [facility] [address] [facility] [id number] [address] [place] [phone] Oct, [facility] [address] [facility] [id number] [address] [place] [phone] Oct, [facility] [address] [facility] [id number] [address] [place] [phone] Sep, [facility] [address] [id number] [address] [place] [phone] Sep, [facility] [address] [facility] [id number] [address] [place] [phone] Aug, [facility] [address] [facility] [id number] [address] [place] [phone] Aug, [facility] [address] [facility] [id number] [address] [place] [phone] Aug, [facility] [address] [facility] [id number] [address] [place] [phone] Aug, [facility] [address] [facility] [id number] [address] [place] [phone] Aug, [facility] [address] [facility] [id number] [address] [place] [phone] Aug, [facility] [address] [id number] [address] [place] [address], [place] [id number] Aug, [facility] [address] [id number] [address] [place] [address], [place] [id number] Jul, [facility] [address] [id number] [address] [place] [address], [place] [id number] Jul, [facility] [address] [id number] [address] [place] [address], [place] [id number] Jun, [facility] [address] [id number] [address] [place] [address], [place] [id number] Jun, [facility] [address] [id number] [address] [place] [address], [place] [id number] May, [facility] [address] [id number] [address] [place] [address], [place] [id number] May, [facility] [address] [id number] [address] [place] [address], [place] [id number] May, [facility] [address] [id number] [address] [place] [address], [place] [id number] May, [facility] [address] [id number] [address] [place] [address], [place] [id number] May, [facility] [address] [id number] [address] [place] [address], [place] [id number] May, [facility] [address] [id number] [address] [place] [address], [place] [id number] Apr, [facility] [address] [id number] [address] [place] [address], [place] [id number] Apr, [facility] [address] [id number] [address] [place] [address], [place] [id number] Apr, [facility] [address] [id number] [address] [place] [address], [place] [id number] Apr, [facility] [address] [id number] [address] [place] [address], [place] [id number] 22 Sep, 2013 [facility] [address] [id number] [facility] [place] [id number] 22 Sep, 2013 [facility] [address] [id number] [address] [place] [address], [place] [id number] 19 Sep, 2013 [facility] [address] [id number] [address] [place] [address], [place] [id number] 16 Sep, 2013 [facility] [address] [id number] [address] [place] [address], [place] [id number] 16 Sep, 2013 [facility] [address] [id number] [address] [place] [address], [place] [id number] 15 Mar, 2013 [facility] [address] [id number] [address] [place] [address], [place] [id number] 11 Mar, 2013 [facility] [address] [id number] [address] [place] [address], [place] [id number] 11 Mar, 2013 [facility] [address] [id number] [address] [place] [address], [place] [id number] 11 Mar, 2013 [facility] [address] [id number] [address] [place] [address], [place] [id number] 11 Mar, 2013 [facility] [address] [id number] [address] [place] [address], [place] [id number] 10 Mar, 2013 [facility] [address] [id number] [address] [place] [address], [place] [id number] 09 Mar, 2013 [facility] [address] [id number] [address] [place] [address], [place] [id number] 09 Mar, 2013 [facility] [address] [id number] [address] [place] [address], [place] [id number] 02 Mar, 2013 [facility] [address] [id number] [address] [place] [address], [place] [id number] 02 Mar, 2013 [facility] [address] [id number] [address] [place] [address], [place] [id number] 29 Feb, 2014 [facility] [address] [id number] [address] [place] [address], [place] [id number] Feb, [facility] [address] [id number] [address] [place] [address], [place] [id number] Feb, [facility] [address] [id number] [address] [place] [address], [place] [id number] Feb, [facility] [address] [id number] [address] [place] [address], [place] [id number] Feb, [facility] [address] [id number] [address] [place] [address], [place] [id number] Feb, [facility] [address] [id number] [address] [place] [address], [place] [id number] Feb, [facility] [address] [id number] [address] [place] [address], [place] [id number] Feb, [facility] [address] [id number] [address] [place] [address], [place] [id number] Feb, [facility] [address] [id number] [address] [place] [address], [place] [id number] Feb, [facility] [address] [id number] [address] [place] [address], [place] [id number] Feb, [facility] [address] [id number] [address] [place] [address], [place] [id number] Feb, [facility] [address] [id number] [address] [place] [address], [place] [id number] Feb, [facility] [address] [id number] [address] [place] [address], [place] [id number] Feb, [facility] [address] [id number] [address] [place] [address], [place] [id number] Jan, [facility] [address] [id number] [address] [place] [address], [place] [id number] Jan, [facility] [address] [id number] [address] [place] [address], [place] [id number] Jan, [facility] [address] [id number] [address] [place] [address], [place] [id number] Jan, [facility] [address] [id number] [address] [place] [address], [place] [id number] Jan, [facility] [address] [id number] [address] [place] [address], [place] [id number] Jan, [facility] [address] [id number] [address] [place] [address], [place] [id number] Jan, [facility] [address] [id number] [address] [place] [address], [place] [id number] Dec, [facility] [address] [id number] [address] [place] [address], [place] [id number] Dec, [facility] [address] [id number] [address] [place] [address], [place] [id number] Dec, [facility] [address] [id number] [address] [place] [address], [place] [id number] Dec, [facility] [address] [id number] [address] [place] [address], [place] [id number] Dec, [facility] [address] [id number] [address] [place] [address], [place] [id number] Dec, [facility] [address] [id number] [address] [place] [address], [place] [id number] Dec, [facility] [address] [id number] [address] [place] [address], [place] [id number] Dec, [facility] [address] [id number] [address] [place] [address], [place] [id number] Dec, [facility] [address] [id number] [address] [place] [address], [place] [id number] November, [facility] [address] [id number] [address] [place] [address], [place] [id number] November, [facility] [address] [id number] [address] [place] [address], [place] [id number] November, [facility] [address] [id number] [address] [place] [address], [place] [id number] November, [facility] [address] [id number] [address] [place] [address], [place] [id number] November, [facility] [address] [id number] [address] [place] [address], [place] [id number] November, [facility] [address] [id number] [address] [place] [address], [place] [id number] November, [facility] [address] [id number] [address] [place] [address], [place] [id number] November, [facility] [address] [id number] [address] [place] [address], [place] [id number] November, [facility] [address] [id number] [address] [place] [address], [place] [id number] November, [facility] [address] [id number] [address] [place] [address], [place] [id number] November, [facility] [address] [id number] [address] [place] [address], [place] [id number] November, [facility] [address] [id number] [address] [place] [address], [place] [id number] November, [facility] [address] [id number] [address] [place] [address], [place] [id number] November, [facility] [address] [id number] [address] [place] [address], [place] [id number] Oct, [facility] [address] [id number] [address] [place] [address], [place] [id number] Oct, [facility] [address] [id number] [address] [place] [address], [place] [id number] Oct, [facility] [address] [id number] [address] [place] [address], [place] [id number] Oct, [facility] [address] [id number] [address] [place] [address], [place] [id number] Oct, [facility] [address] [id number] [address] [place] [address], [place] [id number] Oct, [facility] [address] [id number] [address] [place] [address], [place] [id number] Sep, [facility] [address] [id number] [address] [place] [address], [place] [id number] Sep, [facility] [address] [id number] [address] [place] [address], [place] [id number] Sep, [facility] [address] [id number] [address] [place] [address], [place] [id number] Sep, [facility] [address] [id number] [address] [place] [address], [place] [id number] Aug, [facility] [address] [id number] [address] [place] [address], [place] [id number] Aug, [facility] [address] [id number] [address] [place] [address], [place] [id number] Aug, [facility] [address] [id number] [address] [place] [address], [place] [id number] Aug, [facility] [address] [id number] [address] [place] [address], [place] [id number] Jul, [facility] [address] [id number] [address] [place] [address], [place] [id number] Jul, [facility] [facility] [address] [id number] [address] [place] [address], [place] [id number] Jul, [facility] [address] [id number] [address] [place] [address], [place] [id number] Jul, [facility] [address] [id number] [address] [place] [address], [place] [id number] Jul, [facility] [address] [id number] [address] [place] [address], [place] [id number] 14 Jul, 2013 [facility] [address] [id number] [address] [place] [address], [place] [id number] 14 Jul, 2013 [facility] [address] [id number] [address] [place] [address], [place] [id number] 27 Jun, 2013 [facility] [address] [id number] [address] [place] [address], [place] [id number] 27 Jun, 2013 [facility] [address] [id number] [address] [place] [address], [place] [id number] 17 Jun, 2013 [facility] [address] [id number] [address] [place] [address], [place] [id number] 17 Jun, 2013 [facility] [address] [id number] [address] [place] [address], [place] [id number] Jun, [facility] [address] [id number] [address] [place] [address], [place] [id number] Jun, [facility] [address] [id number] [address] [place] [address], [place] [id number] 07 May, 2013 [facility] [address] [id number] [address] [place] [address], [place] [id number] 07 May, 2013 [facility] [address] [id number] [address] [place] [address], [place] [id number] 15 Apr, 2013 [facility] [address] [id number] [address] [place] [address], [place] [id number] 15 Apr, 2013 [facility] [address] [id number] [address] [place] [id number] 10 Apr, 2013 [facility] [address] [id number] [address] [place] [address], [place] [id number] 10 Apr, 2013 [facility] [address] [id number] [address] [place] [address], [place] [id number] 08 Apr, 2013 [facility] [address] [id number] [address] [place] [address], [place] [id number] 24 Mar, 2013 [facility] [address] [id number] [address] [place] [address], [place] [id number] Mar, [facility] [address] [id number] [address] [place] [address], [place] [id number] Mar, [facility] [address] [id number] [address] [place] [address], [place] [id number] Mar, [facility] [address] [id number] [address] [place] [address], [place] [id number] Feb, [facility] [address] [id number] [address] [place] [address], [place] [id number] Feb, [facility] [address] [id number] [address] [place] [address], [place] [id number] Jan, [facility] [address] [id number] [address] [place] [address], [place] [id number] Jan, [facility] [address] [id number] [address] [place] [address], [place] [id number] Jan, [facility] [address] [id number] [address] [place] [address], [place] [id number] Jan, [facility] [address] [id number] [address] [place] [address], [place] [id number] Dec, [facility] [address] [id number] [address] [place] [address], [place] [id number] Dec, [facility] [address] [id number] [address] [place] [address], [place] [id number] Dec, [facility] [address] [id number] [address] [place] [address], [place] [id number] Dec, [facility] [address] [id number] [address] [place] [address], [place] [id number] November, [facility] [address] [id number] [address] [place] [address], [place] [id number] November, [facility] [address] [id number] [address] [place] [address], [place] [id number] Oct, [facility] [address] [id number] [address] [place] [address], [place] [id number] 20 Sep, 2012 [facility] [address] [id number] [address] [place] [address], [place] [id number] 08 Sep, 2012 [facility] [address] [id number] [address] [place] [address], [place] [id number] 14 Aug, 2012 [facility] [address] [id number] [address] [place] [address], [place] [id number] 13 Aug, 2012 [facility] [address] [id number] [address] [place] [address], [place] [id number] 18 Jul, 2012 [facility] [address] [id number] [address] [place] [address], [place] [id number] Jul, [facility] [address] [id number] [address] [place] [address], [place] [id number] Jul, [facility] [address] [id number] [address] [place] [address], [place] [id number] 28 Jun, 2012 [facility] [address] [id number] [address] [place] [address], [place] [id number] 28 Jun, 2012 [facility] [address] [id number] [address] [place] [address], [place] [id number] 15 Jun, 2012 [facility] [address] [id number] [address] [place] [address], [place] [id number] 15 Jun, 2012 [facility] [address] [id number] [address] [place] [id number] 20 May, 2012 [facility] [address] [id number] [address] [place] [address], [place] [id number] 20 May, 2012 [facility] [address] [id number] [address] [place] [address], [place] [id number] 19 May, 2012 [facility] [address] [id number] [address] [place] [address], [place] [id number] 14 May, 2012 [facility] [address] [id number] [address] [place] [phone] May, [facility] [address] [id number] [address] [place] [address], [place] [id number] May, [facility] [address] [id number] [address] [place] [phone] May, [facility] [address] [id number] [address] [place] [address], [place] [id number] Apr, [facility] [address] [id number] [address] [place] [address], [place] [id number] Apr, [facility] [address] [id number] [address] [place] [address], [place] [id number] Apr, [facility] [address] [id number] [address] [place] [address], [place] [id number] Apr, [facility] [address] [id number] [address] [place] [address], [place] [id number] Apr, [facility] [address] [id number] [address] [place] [address], [place] [id number] Apr, [facility] [address] [id number] [address] [place] [address], [place] [id number] Apr, [facility] [address] [id number] [address] [place] [phone] Apr, [facility] [address] [id number] [address] [place] [address], [place] [id number] Jan, [facility] [address] [id number] [address] [place] [phone] Jan, [facility] [address] [id number] [address] [place] [phone] Dec, [facility] [address] [id number] [address] [place] [address], [place] [id number] November, [facility] [address] [id number] [address] [place] [address], [place] [id number] Oct, [facility] [address] [id number] [address] [place] [address], [place] [id number] 10 Oct, 2011 [facility] [address] [id number] [address] [place] [address], [place] [id number] 03 Oct, 2011 [facility] [address] [id number] [address] [place] [address], [place] [id number] 02 Oct, 2011 [facility] [address] [id number] [address] [place] [address], [place] [id number] Sep, [facility] [address] [id number] [address] [place] [address], [place] [id number] Sep, [facility] [address] [id number] [address] [place] [address], [place] [id number] Sep, [facility] [address] [id number] [address] [place] [address], [place] [id number] 13 Jun, 2011 [facility] [address] [id number] [address] [place] [address], [place] [id number] 13 Jun, 2011 [facility] [address] [id number] [address] [place] [address], [place] [id number] May, [facility] [address] [id number] [address] [place] [address], [place] [id number] 14 Jan, 2011 [facility] [address] [id number] [address] [place] [address], [place] [id number] November, [facility] [address] [id number] [address] [place] [address], [place] [id number] 14 Oct, 2010 [facility] [address] [id number] [address] [place] [address], [place] [id number] 16 Sep, 2010 [facility] [address] [id number] [address] [place] [address], [place] [id number] 30 May, 2010 [facility] [address] [id number] [address] [place] [address], [place] [id number] Jul, [facility] [address] [id number] [address] [place], [place] [address] [address] Jun, [facility] [address] [id number] [address] [place] [phone] Jun, [facility] [address] [id number] [address] [place] [phone] Jun, [facility] [address] [id number] [address] [place] [phone] Jun, [facility] [address] [id number] [address] [place] [phone] May, [facility] [address] [id number] [address] [place] [phone] May, [facility] [address] [id number] [address] [place] [phone] Apr, [facility] [address] [id number] [address] [place] [phone] Apr, [facility] [address] [id number] [address] [place] [phone] Apr, IMMUNIZATIONS No Known Immunizations SOCIAL HISTORY [...] right 06/1996 Surgical History multiple knee injections ([id number]) Surgical History left knee replacement 06/11 Hospitalization History Knee surgery- x 3 days 06/11
--- OUTSIDE RECORDS SUMMARY | 2019-12-16 20:23 | XMS REPORT ---
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 Name Role Phone DARLING HERNANDEZ Unavailable PROBLEMS Type Condition ICD9-CM Code VWE09-DO Code Onset Dates Condition S tatus SNOMED Code Problem ADD (attention deficit disorder) F90.0 Active 398908642 Problem Drug abuse counseling and surveillance of drug abuser Z71.51 Active 501297745 Problem Insomnia G47.00 Active 210585014 Problem Joint pain M25.50 Active 14860506 Problem Edema, unspecified type R60.9 Active 625603439 Problem Episode of recurrent major d epressive disorder, unspecified depression episode severity F33.9 Active 790334297 Problem Venous insufficiency (chronic) (peripheral) I87.2 Active [id number] Problem Carpal tunnel syndrome on left G56.02 Active 480567162003272 Problem Manic bipolar I disorder in partial remission F31. 73 Active 59659803 Problem Bipolar affective disorder, currently depressed, moderate F31.32 Active 204114019 Problem Social anxiety disorder F40.10 Active 34471836 Problem Other chronic pain G89.29 Active 8 5344572 Problem Stimulant abuse F15.10 Active 4415 66506 Problem Bipolar II disorder F31.81 Active 13225661 Problem ADD (attention deficit disorder) without hyperactivity F98.8 Active 10987866 ALLERGIES No Information ENCOUNTERS Encounter Location Date Diagnosis [facility] [address] [facility] [id number] [address] [place] [address] Aug, [facility] [address] [facility] [id number] [address] [place] [address] Aug, Bipolar II disorder F31.81 ; Social anxiety disorder F40.10 and ADD (attention deficit disorder) F90.0 [facility] [address] [facility] [id number] [address] [place] [address] Jul, [facility] [address] [facility] [id number] [address] [place] [address] Apr, [place] [address] [facility] [id number] [address] [place] [address] Apr, Bipolar II disorder F31.81 a nd Social anxiety disorder F40.10 [place] [address] [facility] [id number] [address] [place] [address] Jan, Bipolar affective disorder, currently depressed, moderate F31.32 [place] [address] [facility] [id number] [address] [place] [address] Jan, Bipolar affective disorder, currently depressed, moderate F31.32 ; Social anxiety disorder F40.10 and Morbid obesity E66.01 [place] [address] [facility] [id number] [address] [place] [address] May, Screening for lipid disorder s Z13.220 [place] [address] [place] [id number] [address] [place] [address] May, Carpal tunnel syndrome on le ft G56.02 ; Social anxiety disorder F40.10 and Screening for lipid disorders Z13.220 [place] [address] [facility] [id number] [address] [place] [address] 11 Apr, 2018 Bipolar II disorder F31.81 ; Social anxiety disorder F40.10 ; ADD (attention deficit disorder) without hyperactivity F98.8 and BMI 45.0-49.9, adult Z68.42 [place] [address] [facility] [id number] [address] [place] [address] Mar, [place] [address] [facility] [id number] [address] [place] [address] Feb, BMI 45.0-49.9, adult Z68.42 ; Carpal tunnel syndrome on left G56.02 and Social anxiety disorder F40.10 [place] [address] [facility] [id number] [address] [place] [address] Jan, Bipolar II disorder F31.81 ; ADD (attention deficit disorder) without hyperactivity F98.8 ; Social anxiety disorder F40.10 and Stimulant abuse F15.10 [facility] [address] [place] [id number] [address] [place] [address] Dec, Episode of recurrent major d epressive disorder, unspecified depression episode severity F33.9 ; Other chronic pain G89.29 ; Radiculopathy, lumbar region M54.16 ; Edema of lower extremity R60.0 and BMI 45.0-49.9, adult Z68.42 [place] [id number] [place] [address] Jun, [place] [address] [place] [id number] [place] [address] Jan, Joint pain M25.50 [place] [address] [place] [id number] [address] [place] [address] Jan, Wellness examination Z00.00 ; Pain in right knee M25.561 ; Pain in left knee M25.562 ; Edema, unspecified type R60.9 and Drug abuse counseling and surveillance of drug abuser Z71.51 [place] [address] [place] [id number] [address] [place] [address] November, [place] [address] [place] [id number] [address] [place] [address] Oct, [facility] [address] [place] [id number] [address] [place] [address] Oct, ADD (attention deficit disor josselin) F90.0 ; Social anxiety disorder F40.10 and Manic bipolar I disorder in partial remission F31.73 [facility] [address] [place] [id number] [address] [place] [address] Aug, [facility] [address] [place] [id number] [address] [place] [address] Aug, [facility] [address] [place] [id number] [address] [place] [address] Aug, [facility] [address] [facility] [id number] [address] [place] [address] Jul, [facility] [address] [facility] [id number] [address] [place] [address] Jul, [facility] [address] [facility] [id number] [address] [place] [address] Jul, [facility] [address] [facility] [id number] [address] [place] [address] Jun, [facility] [address] [facility] [id number] [address] [place] [address] Jun, [facility] [address] [facility] [id number] [address] [place] [address] Jun, [facility] [address] [facility] [id number] [address] [place] [address] Jun, [facility] [address] [facility] [id number] [address] [place] [address] May, Joint pain M25.50 ; ADD (att ention deficit disorder) F90.0 ; Edema R60.9 and Insomnia G47.00 [facility] [address] [facility] [id number] [address] [place] [address] May, [facility] [address] [facility] [id number] [address] [place] [address] May, [facility] [address] [facility] [id number] [address] [place] [address] May, [facility] [address] [facility] [id number] [address] [place] [address] May, Left wrist pain M25.532 ; Si nusitis J32.9 and Drug abuse counseling and surveillance of drug abuser Z71.51 [facility] [address] [facility] [id number] [address] [place] [address] Apr, [facility] [address] [facility] [id number] [address] [place] [address] 15 Apr, 2015 [facility] [address] [facility] [id number] [address] [place] [address] 15 Apr, 2015 [facility] [address] [facility] [id number] [address] [place] [address] 14 Apr, 2015 [facility] [address] [facility] [id number] [address] [place] [address] Apr, [facility] [address] [facility] [id number] [address] [place] [address] Apr, [facility] [address] [facility] [id number] [address] [place] [address] Apr, [facility] [address] [facility] [id number] [address] [place] [address] 21 Mar, 2015 Unspecified venous (peripher al) insufficiency 459.81 ; Bipolar I disorder, most recent episode (or current) manic, moderate 296.42 ; Social phobia 300.23 ; Attention deficit disorder of childhood without mention of hyperactivity 314.00 ; Pain in joint, lower leg 719.46 ; Thrombosis 453.9 and Chronic pain 338.29 [facility] [address] [facility] [id number] [address] [place] [address] 18 Mar, 2015 [facility] [address] [facility] [id number] [address] [place] [address] 18 Mar, 2015 [facility] [address] [facility] [id number] [address] [place] [address] 18 Mar, 2015 [facility] [address] [facility] [id number] [address] [place] [address] 17 Mar, 2015 [facility] [address] [facility] [id number] [address] [place] [address] 17 Mar, 2014 [facility] [address] [facility] [id number] [address] [place] [phone] 11 Mar, 2015 [facility] [address] [facility] [id number] [address] [place] [address] Mar, Manic bipolar I disorder in partial remission 296.45 ; Social phobia 300.23 and Attention deficit disorder of childhood without mention of hyperactivity 314.00 [facility] [address] [facility] [id number] [address] [place] [address] Mar, [facility] [address] [facility] [id number] [address] [place] [address] Feb, [facility] [address] [facility] [id number] [address] [place] [phone] Feb, Thrombosis 453.9 ; Unspecifi ed venous (peripheral) insufficiency 459.81 ; Bipolar I disorder, most recent episode (or current) manic, moderate 296.42 ; Social phobia 300.23 ; Attention deficit disorder of childhood without mention of hyperactivity 314.00 ; Pain in joint, lower leg 719.46 and Edema 782.3 [place] [address] [place] [id number] [address] [place] [address] Feb, [facility] [address] [place] [id number] [address] [place] [address] Feb, Social phobia 300.23 ; Atten tion deficit disorder of childhood without mention of hyperactivity 314.00 and Bipolar I disorder, most recent episode manic, in partial remission 296.45 [facility] [address] [facility] [id number] [address] [place] [address] Jan, [facility] [address] [place] [id number] [address] [place] [address] Jan, [facility] [address] [place] [id number] [address] [place] [address] Jan, Unspecified venous (peripher al) insufficiency 459.81 and Thrombophlebitis 451.9 [facility] [address] [facility] [id number] [address] [place] [address] Jan, [facility] [address] [facility] [id number] [address] [place] [address] Dec, Headache 784.0 and Back pain 724.5 [facility] [address] [id number] [address] [place] [address] Dec, [facility] [address] [id number] [address] [place] [address] Dec, Bipolar I disorder, most rec ent episode (or current) manic, moderate 296.42 ; Attention deficit disorder of childhood without mention of hyperactivity 314.00 and Social phobia 300.23 [facility] [address] [id number] [address] [place] [address] November, [facility] [address] [id number] [address] [place] [address] November, [facility] [address] [facility] [id number] [address] [place] [address] Oct, [facility] [address] [facility] [id number] [address] [place] [address] Oct, [facility] [address] [facility] [id number] [address] [place] [address] Sep, [facility] [address] [id number] [address] [place] [address] Sep, [facility] [address] [facility] [id number] [address] [place] [address] Aug, [facility] [address] [facility] [id number] [address] [place] [address] Aug, [facility] [address] [facility] [id number] [address] [place] [id number] Aug, [facility] [address] [facility] [id number] [address] [place] [id number] Aug, [facility] [address] [facility] [id number] [address] [place] [phone] Aug, [facility] [address] [facility] [id number] [address] [place] [address] Aug, [facility] [address] [id number] [address] [place] [address], [place] [address] Aug, [facility] [address] [id number] [address] [place] [address], [place] [address] Jul, [facility] [address] [id number] [address] [place] [address], [place] [address] Jul, [facility] [address] [id number] [address] [place] [address], [place] [address] Jun, [facility] [address] [id number] [address] [place] [address], [place] [address] Jun, [facility] [address] [id number] [address] [place] [address], [place] [address] May, [facility] [address] [id number] [address] [place] [address], [place] [address] May, [facility] [address] [id number] [address] [place] [address], [place] [address] May, [facility] [address] [id number] [address] [place] [address], [place] [address] May, [facility] [address] [id number] [address] [place] [address], [place] [address] May, [facility] [address] [id number] [address] [place] [address], [place] [address] May, [facility] [address] [id number] [address] [place] [address], [place] [address] Apr, [facility] [address] [id number] [address] [place] [address], [place] [address] Apr, [facility] [address] [id number] [address] [place] [address], [place] [address] Apr, [facility] [address] [id number] [address] [place] [address], [place] [address] Apr, [facility] [address] [id number] [address] [place] [address], [place] [address] 22 Sep, 2013 [facility] [address] [id number] [facility] [place] [address] 22 Sep, 2013 [facility] [address] [id number] [address] [place] [address], [place] [address] 19 Sep, 2013 [facility] [address] [id number] [address] [place] [address], [place] [address] 16 Sep, 2013 [facility] [address] [id number] [address] [place] [address], [place] [address] 16 Sep, 2013 [facility] [address] [id number] [address] [place] [address], [place] [address] 15 Mar, 2013 [facility] [address] [id number] [address] [place] [address], [place] [address] 11 Mar, 2013 [facility] [address] [id number] [address] [place] [address], [place] [address] 11 Mar, 2013 [facility] [address] [id number] [address] [place] [address], [place] [address] 11 Mar, 2013 [facility] [address] [id number] [address] [place] [address], [place] [address] 11 Mar, 2013 [facility] [address] [id number] [address] [place] [address], [place] [address] 10 Mar, 2013 [facility] [address] [id number] [address] [place] [address], [place] [address] 09 Mar, 2013 [facility] [address] [id number] [address] [place] [address], [place] [address] 09 Mar, 2013 [facility] [address] [id number] [address] [place] [address], [place] [address] 02 Mar, 2013 [facility] [address] [id number] [address] [place] [address], [place] [address] 02 Mar, 2013 [facility] [address] [id number] [address] [place] [address], [place] [address] 29 Feb, 2014 [facility] [address] [id number] [address] [place] [address], [place] [address] Feb, [facility] [address] [id number] [address] [place] [address], [place] [address] Feb, [facility] [address] [id number] [address] [place] [address], [place] [address] Feb, [facility] [address] [id number] [address] [place] [address], [place] [address] Feb, [facility] [address] [id number] [address] [place] [address], [place] [address] Feb, [facility] [address] [id number] [address] [place] [address], [place] [address] Feb, [facility] [address] [id number] [address] [place] [address], [place] [address] Feb, [facility] [address] [id number] [address] [place] [address], [place] [address] Feb, [facility] [address] [id number] [address] [place] [address], [place] [address] Feb, [facility] [address] [id number] [address] [place] [address], [place] [address] Feb, [facility] [address] [id number] [address] [place] [address], [place] [address] Feb, [facility] [address] [id number] [address] [place] [address], [place] [address] Feb, [facility] [address] [id number] [address] [place] [address], [place] [address] Feb, [facility] [address] [id number] [address] [place] [address], [place] [address] Jan, [facility] [address] [id number] [address] [place] [address], [place] [address] Jan, [facility] [address] [id number] [address] [place] [address], [place] [address] Jan, [facility] [address] [id number] [address] [place] [address], [place] [address] Jan, [facility] [address] [id number] [address] [place] [address], [place] [address] Jan, [facility] [address] [id number] [address] [place] [address], [place] [address] Jan, [facility] [address] [id number] [address] [place] [address], [place] [address] Jan, [facility] [address] [id number] [address] [place] [address], [place] [address] Dec, [facility] [address] [id number] [address] [place] [address], [place] [address] Dec, [facility] [address] [id number] [address] [place] [address], [place] [address] Dec, [facility] [address] [id number] [address] [place] [address], [place] [address] Dec, [facility] [address] [id number] [address] [place] [address], [place] [address] Dec, [facility] [address] [id number] [address] [place] [address], [place] [address] Dec, [facility] [address] [id number] [address] [place] [address], [place] [address] Dec, [facility] [address] [id number] [address] [place] [address], [place] [address] Dec, [facility] [address] [id number] [address] [place] [address], [place] [address] Dec, [facility] [address] [id number] [address] [place] [address], [place] [address] November, [facility] [address] [id number] [address] [place] [address], [place] [address] November, [facility] [address] [id number] [address] [place] [address], [place] [address] November, [facility] [address] [id number] [address] [place] [address], [place] [address] November, [facility] [address] [id number] [address] [place] [address], [place] [address] November, [facility] [address] [id number] [address] [place] [address], [place] [address] November, [facility] [address] [id number] [address] [place] [address], [place] [address] November, [facility] [address] [id number] [address] [place] [address], [place] [address] November, [facility] [address] [id number] [address] [place] [address], [place] [address] November, [facility] [address] [id number] [address] [place] [address], [place] [address] November, [facility] [address] [id number] [address] [place] [address], [place] [address] November, [facility] [address] [id number] [address] [place] [address], [place] [address] November, [facility] [address] [id number] [address] [place] [address], [place] [address] November, [facility] [address] [id number] [address] [place] [address], [place] [address] November, [facility] [address] [id number] [address] [place] [address], [place] [address] Oct, [facility] [address] [id number] [address] [place] [address], [place] [address] Oct, [facility] [address] [id number] [address] [place] [address], [place] [address] Oct, [facility] [address] [id number] [address] [place] [address], [place] [address] Oct, [facility] [address] [id number] [address] [place] [address], [place] [address] Oct, [facility] [address] [id number] [address] [place] [address], [place] [address] Oct, [facility] [address] [id number] [address] [place] [address], [place] [address] Sep, [facility] [address] [id number] [address] [place] [address], [place] [address] Sep, [facility] [address] [id number] [address] [place] [address], [place] [address] Sep, [facility] [address] [id number] [address] [place] [address], [place] [address] Sep, [facility] [address] [id number] [address] [place] [address], [place] [address] Aug, [facility] [address] [id number] [address] [place] [address], [place] [address] Aug, [facility] [address] [id number] [address] [place] [address], [place] [address] Aug, [facility] [address] [id number] [address] [place] [address], [place] [address] Aug, [facility] [address] [id number] [address] [place] [address], [place] [address] Jul, [facility] [address] [id number] [address] [place] [address], [place] [address] Jul, [facility] [address] [id number] [address] [place] [address], [place] [address] Jul, [facility] [address] [id number] [address] [place] [address], [place] [address] Jul, [facility] [address] [id number] [address] [place] [address], [place] [address] Jul, [facility] [address] [id number] [address] [place] [address], [place] [address] 14 Jul, 2013 [facility] [address] [id number] [address] [place] [address], [place] [address] 14 Jul, 2013 [facility] [address] [id number] [address] [place] [address], [place] [address] 27 Jun, 2013 [facility] [address] [id number] [address] [place] [address], [place] [address] 27 Jun, 2013 [facility] [address] [id number] [address] [place] [address], [place] [address] 17 Jun, 2013 [facility] [address] [id number] [address] [place] [address], [place] [address] 17 Jun, 2013 [facility] [address] [id number] [address] [place] [address], [place] [address] Jun, [facility] [address] [id number] [address] [place] [address], [place] [address] Jun, [facility] [address] [id number] [address] [place] [address], [place] [address] 07 May, 2013 [facility] [address] [id number] [address] [place] [address], [place] [address] 07 May, 2013 [facility] [address] [id number] [address] [place] [address], [place] [address] 15 Apr, 2013 [facility] [address] [id number] [address] [place] [address], [place] [address] 15 Apr, 2013 [facility] [address] [id number] [address] [place] [address] 10 Apr, 2013 [facility] [address] [id number] [address] [place] [address], [place] [address] 10 Apr, 2013 [facility] [address] [id number] [address] [place] [address], [place] [address] 08 Apr, 2013 [facility] [address] [id number] [address] [place] [address], [place] [address] 24 Mar, 2013 [facility] [address] [id number] [address] [place] [address], [place] [address] Mar, [facility] [address] [id number] [address] [place] [address], [place] [address] Mar, [facility] [address] [id number] [address] [place] [address], [place] [address] Mar, [facility] [address] [id number] [address] [place] [address], [place] [address] Feb, [facility] [address] [id number] [address] [place] [address], [place] [address] Feb, [facility] [address] [id number] [address] [place] [address], [place] [address] Jan, [facility] [address] [id number] [address] [place] [address], [place] [address] Jan, [facility] [address] [id number] [address] [place] [address], [place] [address] Jan, [facility] [address] [id number] [address] [place] [address], [place] [address] Jan, [facility] [address] [id number] [address] [place] [address], [place] [address] Dec, [facility] [address] [id number] [address] [place] [address], [place] [address] Dec, [facility] [address] [id number] [address] [place] [address], [place] [address] Dec, [facility] [address] [id number] [address] [place] [address], [place] [address] Dec, [facility] [address] [id number] [address] [place] [address], [place] [address] November, [facility] [address] [id number] [address] [place] [address], [place] [address] November, [facility] [address] [id number] [address] [place] [address], [place] [address] Oct, [facility] [address] [id number] [address] [place] [address], [place] [address] 20 Sep, 2012 [facility] [address] [id number] [address] [place] [address], [place] [address] 08 Sep, 2012 [facility] [address] [id number] [address] [place] [address], [place] [address] 14 Aug, 2012 [facility] [address] [id number] [address] [place] [address], [place] [address] 13 Aug, 2012 [facility] [address] [id number] [address] [place] [address], [place] [address] 18 Jul, 2012 [facility] [address] [id number] [address] [place] [address], [place] [address] Jul, [facility] [address] [id number] [address] [place] [address], [place] [address] Jul, [facility] [address] [id number] [address] [place] [address], [place] [address] 28 Jun, 2012 [facility] [address] [id number] [address] [place] [address], [place] [address] 28 Jun, 2012 [facility] [address] [id number] [address] [place] [address], [place] [address] 15 Jun, 2012 [facility] [address] [id number] [address] [place] [address], [place] [address] 15 Jun, 2012 [facility] [address] [id number] [address] [place] [address] 20 May, 2012 [facility] [address] [id number] [address] [place] [address], [place] [address] 20 May, 2012 [facility] [address] [id number] [address] [place] [address], [place] [address] 19 May, 2012 [facility] [address] [id number] [address] [place] [address], [place] [address] 14 May, 2012 [facility] [address] [id number] [address] [place] [address] May, [facility] [address] [id number] [address] [place] [address], [place] [address] May, [facility] [address] [id number] [address] [place] [address] May, [facility] [address] [id number] [address] [place] [address], [place] [address] Apr, [facility] [address] [id number] [address] [place] [address], [place] [address] Apr, [facility] [address] [id number] [address] [place] [address], [place] [address] Apr, [facility] [address] [id number] [address] [place] [address], [place] [address] Apr, [facility] [address] [id number] [address] [place] [address], [place] [address] Apr, [facility] [address] [id number] [address] [place] [address], [place] [address] Apr, [facility] [address] [id number] [address] [place] [address], [place] [address] Apr, [facility] [address] [id number] [address] [place] [address] Apr, [facility] [address] [id number] [address] [place] [address], [place] [address] Jan, [facility] [address] [id number] [address] [place] [address] Jan, [facility] [address] [id number] [address] [place] [address] Dec, [facility] [address] [id number] [address] [place] [address], [place] [address] November, [facility] [address] [id number] [address] [place] [address], [place] [address] Oct, [facility] [address] [id number] [address] [place] [address], [place] [address] 10 Oct, 2011 [facility] [address] [id number] [address] [place] [address], [place] [address] 03 Oct, 2011 [facility] [address] [id number] [address] [place] [address], [place] [address] 02 Oct, 2011 [facility] [address] [id number] [address] [place] [address], [place] [address] Sep, [facility] [address] [id number] [address] [place] [address], [place] [address] Sep, [facility] [address] [id number] [address] [place] [address], [place] [address] Sep, [facility] [address] [id number] [address] [place] [address], [place] [address] 13 Jun, 2011 [facility] [address] [id number] [address] [place] [address], [place] [address] 13 Jun, 2011 [facility] [address] [id number] [address] [place] [address], [place] [address] May, [facility] [address] [id number] [address] [place] [address], [place] [address] 14 Jan, 2011 [facility] [address] [id number] [address] [place] [address], [place] [address] November, [facility] [address] [id number] [address] [place] [address], [place] [address] 14 Oct, 2010 [facility] [address] [id number] [address] [place] [address], [place] [address] 16 Sep, 2010 [facility] [address] [id number] [address] [place] [address], [place] [address] 30 May, 2010 [facility] [address] [id number] [address] [place] [address], [place] [address] Jul, [facility] [address] [id number] [address] [place] [address] [address] Jun, [facility] [address] [id number] [address] [place] [address] Jun, [facility] [address] [id number] [address] [place] [address] Jun, [facility] [address] [id number] [address] [place] [address] Jun, [facility] [address] [id number] [address] [place] [address] May, [facility] [address] [id number] [address] [place] [address] May, [facility] [address] [id number] [address] [place] [address] Apr, [facility] [address] [id number] [address] [place] [address] Apr, [facility] [address] [id number] [address] [place] [address] Apr, IMMUNIZATIONS No Known Immunizations SOCIAL HISTORY Never Assessed REASON FOR VISIT PLAN OF CARE VITAL SIGNS Height 61 in 2014-03-08 Weight 202 lbs 2014-03-08 Temperature 98.8 degrees Fahrenheit 2014-03-08 Heart Rate 80 bpm 2014-03-08 Respiratory Rate 20 2014-03-08 Blood pressure systolic 128 mmHg 2014-03-08 Blood pressure diastolic 78 mmHg 2014-03-08 MEDICATIONS Unknown Medications RESULTS No Results PROCEDURES Procedure Date Ordered Result Body Site URINALYSIS, AUTO, W/O SCOPE Mar 08, 2014 VISIT Mar 08, 2014 INSTRUCTIONS MEDICATIONS ADMINISTERED No Known Medications MEDICAL [...] right 06/1996 Surgical History multiple knee injections ([id number]) Surgical History left knee replacement 06/11 Hospitalization History Knee surgery- x 3 days 06/11
--- OUTSIDE RECORDS SUMMARY | 2019-12-16 20:23 | XMS REPORT ---
Author Author Patti Guzman Doctor Organization [facility] Address Unknown Phone Unavailable Care Team Providers Care Jalousie Installer Name Role Phone Migration, Doctor Unavailable Unavailable PROBLEMS Type Condition ICD9-CM Code [id number] Code Onset Dates Condition S tatus SNOMED Code Problem ADD (attention deficit disorder) F90.0 Active 803599300 Problem Drug abuse counseling and surveillance of drug abuser Z71.51 Active 132162202 Problem Insomnia G47.00 Active 225140148 Problem Joint pain M25.50 Active 77149068 Problem Edema, unspecified type R60.9 Active 432725528 Problem Episode of recurrent major d epressive disorder, unspecified depression episode severity F33.9 Active 634052122 Problem Venous insufficiency (chronic) (peripheral) I87.2 Active [id number] Problem Carpal tunnel syndrome on left G56.02 Active 902770063494615 Problem Manic bipolar I disorder in partial remission F31. 73 Active 29981939 Problem Bipolar affective disorder, currently depressed, moderate F31.32 Active 208242138 Problem Social anxiety disorder F40.10 Active 57691763 Problem Other chronic pain G89.29 Active 8 4717459 Problem Stimulant abuse F15.10 Active 4415 76308 Problem Bipolar II disorder F31.81 Active 32789382 Problem ADD (attention deficit disorder) without hyperactivity F98.8 Active 56555264 ALLERGIES No Information ENCOUNTERS Encounter Location Date Diagnosis [facility] [address] [facility] [id number] [address] [place] [address] Aug, [facility] [address] [facility] [id number] [address] [place] [address] Aug, Bipolar II disorder F31.81 ; Social anxiety disorder F40.10 and ADD (attention deficit disorder) F90.0 [facility] [address] [facility] [id number] [address] [place] [address] Jul, [facility] [address] [place] [id number] [address] [place] [address] Apr, [place] [address] [place] [id number] [place] [address] Apr, Bipolar II disorder F31.81 a nd Social anxiety disorder F40.10 [place] [address] [place] [id number] [place] [address] Jan, Bipolar affective disorder, currently depressed, moderate F31.32 [place] [address] [place] [id number] [place] [address] Jan, Bipolar affective disorder, currently depressed, moderate F31.32 ; Social anxiety disorder F40.10 and Morbid obesity E66.01 [place] [address] [place] [id number] [place] [address] May, Screening for lipid disorder s Z13.220 [place] [address] [address] May, Carpal tunnel syndrome on le ft G56.02 ; Social anxiety disorder F40.10 and Screening for lipid disorders Z13.220 [place] [address] [address] 11 Apr, 2018 Bipolar II disorder F31.81 ; Social anxiety disorder F40.10 ; ADD (attention deficit disorder) without hyperactivity F98.8 and BMI 45.0-49.9, adult Z68.42 [place] [address] [address] Mar, [place] [address] [place] [id number] [place] [address] Feb, BMI 45.0-49.9, adult Z68.42 ; Carpal tunnel syndrome on left G56.02 and Social anxiety disorder F40.10 [place] [address] [place] [id number] [address] [place] [address] Jan, Bipolar II disorder F31.81 ; ADD (attention deficit disorder) without hyperactivity F98.8 ; Social anxiety disorder F40.10 and Stimulant abuse F15.10 [facility] [address] [facility] [id number] [address] [place] [address] Dec, Episode of recurrent major d epressive disorder, unspecified depression episode severity F33.9 ; Other chronic pain G89.29 ; Radiculopathy, lumbar region M54.16 ; Edema of lower extremity R60.0 and BMI 45.0-49.9, adult Z68.42 [facility] [address] [facility] [id number] [address] [place] [address] Jun, [facility] [address] [facility] [id number] [address] [place] [address] Jan, Joint pain M25.50 [facility] [address] [facility] [id number] [address] [place] [address] Jan, Wellness examination Z00.00 ; Pain in right knee M25.561 ; Pain in left knee M25.562 ; Edema, unspecified type R60.9 and Drug abuse counseling and surveillance of drug abuser Z71.51 [facility] [address] [facility] [id number] [address] [place] [address] November, [facility] [address] [facility] [id number] [address] [place] [address] Oct, [facility] [address] [place] [id number] [address] [place] [address] Oct, ADD (attention deficit disor josselin) F90.0 ; Social anxiety disorder F40.10 and Manic bipolar I disorder in partial remission F31.73 [facility] [address] [facility] [id number] [address] [place] [address] Aug, [facility] [address] [facility] [id number] [address] [place] [address] Aug, [facility] [address] [facility] [id number] [address] [place] [address] Aug, [facility] [address] [facility] [id number] [address] [place] [address] Jul, [facility] [address] [facility] [id number] [address] [place] [address] Jul, [facility] [address] [facility] [id number] [address] [place] [address] Jul, [facility] [address] [place] [id number] [place] [address] Jun, [facility] [address] [place] [id number] [place] [address] Jun, [facility] [address] [place] [id number] [place] [address] Jun, [facility] [address] [address] Jun, [facility] [address] [address] May, Joint pain M25.50 ; ADD (att ention deficit disorder) F90.0 ; Edema R60.9 and Insomnia G47.00 [facility] [address] [place] [id number] [address] [place] [address] May, [facility] [address] [place] [id number] [address] [place] [address] May, [facility] [address] [place] [id number] [address] [place] [address] May, [facility] [address] [place] [id number] [place] [address] May, Left wrist pain M25.532 ; Si nusitis J32.9 and Drug abuse counseling and surveillance of drug abuser Z71.51 [facility] [address] [facility] [id number] [address] [place] [address] Apr, [facility] [address] [place] [id number] [place] [address] Apr, [facility] [address] [place] [id number] [place] [address] 15 Apr, 2015 [facility] [address] [id number] [address] [place] [address] 14 Apr, 2015 [facility] [address] [id number] [address] [place] [address] Apr, [facility] [address] [facility] [id number] [address] [place] [address] Apr, [facility] [address] [id number] [address] [place] [address] Apr, [facility] [address] [id number] [address] [place] [address] 21 Mar, 2015 Unspecified venous (peripher al) insufficiency 459.81 ; Bipolar I disorder, most recent episode (or current) manic, moderate 296.42 ; Social phobia 300.23 ; Attention deficit disorder of childhood without mention of hyperactivity 314.00 ; Pain in joint, lower leg 719.46 ; Thrombosis 453.9 and Chronic pain 338.29 [facility] [address] [id number] [address] [place] [address] 18 Mar, 2015 [facility] [address] [id number] [address] [place] [address] 18 Mar, 2015 [facility] [address] [facility] [id number] [address] [place] [address] 18 Mar, 2015 [facility] [address] [id number] [address] [place] [address] 17 Mar, 2015 [facility] [address] [id number] [address] [place] [address] 17 Mar, 2015 [facility] [address] [id number] [address] [place] [address] 11 Mar, 2015 [facility] [address] [facility] [id number] [address] [place] [address] 10 Mar, 2015 Manic bipolar I disorder in partial remission 296.45 ; Social phobia 300.23 and Attention deficit disorder of childhood without mention of hyperactivity 314.00 [facility] [address] [facility] [id number] [address] [place] [address] Mar, [facility] [address] [facility] [id number] [address] [place] [address] Feb, [facility] [address] [facility] [id number] [address] [place] [address] Feb, Thrombosis 453.9 ; Unspecifi ed venous (peripheral) insufficiency 459.81 ; Bipolar I disorder, most recent episode (or current) manic, moderate 296.42 ; Social phobia 300.23 ; Attention deficit disorder of childhood without mention of hyperactivity 314.00 ; Pain in joint, lower leg 719.46 and Edema 782.3 [facility] [address] [facility] [id number] [address] [place] [address] Feb, [facility] [address] [facility] [id number] [address] [place] [address] Feb, Social phobia 300.23 ; Atten tion deficit disorder of childhood without mention of hyperactivity 314.00 and Bipolar I disorder, most recent episode manic, in partial remission 296.45 [facility] [address] [facility] [id number] [address] [place] [address] Jan, [facility] [address] [facility] [id number] [address] [place] [address] Jan, [facility] [address] [facility] [id number] [address] [place] [address] Jan, Unspecified venous (peripher al) insufficiency 459.81 and Thrombophlebitis 451.9 [facility] [address] [facility] [id number] [address] [place] [address] Jan, [facility] [address] [facility] [id number] [address] [place] [address] Dec, Headache 784.0 and Back pain 724.5 [facility] [address] [facility] [id number] [address] [place] [address] Dec, [facility] [address] [id number] [address] [place] [address] Dec, Bipolar I disorder, most rec ent episode (or current) manic, moderate 296.42 ; Attention deficit disorder of childhood without mention of hyperactivity 314.00 and Social phobia 300.23 [facility] [address] [id number] [address] [place] [address] November, [facility] [address] [id number] [address] [place] [address] November, [facility] [address] [id number] [address] [place] [address] Oct, [facility] [address] [id number] [address] [place] [address] Oct, [facility] [address] [facility] [id number] [address] [place] [address] Sep, [facility] [address] [id number] [address] [place] [address] Sep, [facility] [address] [facility] [id number] [address] [place] [address] Aug, [facility] [address] [facility] [id number] [address] [place] [address] Aug, [facility] [address] [facility] [id number] [address] [place] [address] Aug, [facility] [address] [id number] [address] [place] [address] Aug, [facility] [address] [facility] [id number] [address] [place] [address] Aug, [facility] [address] [facility] [id number] [address] [place] [address] Aug, [facility] [address] [facility] [id number] [address] [place] [address] Aug, [facility] [address] [id number] [address] [place] [address], [place] [address] Jul, [facility] [address] [id number] [address] [place] [address], [place] [address] Jul, [facility] [address] [id number] [address] [place] [address], [place] [address] Jun, [facility] [address] [id number] [address] [place] [address], [place] [address] Jun, [facility] [address] [id number] [address] [place] [address], [place] [address] May, [facility] [address] [id number] [address] [place] [address], [place] [address] May, [facility] [address] [id number] [address] [place] [address], [place] [address] May, [facility] [address] [id number] [address] [place] [address], [place] [address] May, [facility] [address] [id number] [address] [place] [address], [place] [address] May, [facility] [address] [id number] [address] [place] [address] May, [facility] [address] [id number] [address] [place] [address], [place] [address] Apr, [facility] [address] [id number] [address] [place] [address] Apr, [facility] [address] [id number] [address] [place] [address], [place] [address] Apr, [facility] [address] [id number] [address] [place] [address], [place] [address] Apr, [facility] [address] [id number] [address] [place] [address], [place] [address] Mar, [facility] [address] [id number] [address] [place] [address] 22 Sep, 2013 [facility] [address] [id number] [address] [place] [address], [place] [address] 19 Sep, 2013 [facility] [address] [id number] [address] [place] [address], [place] [address] 16 Sep, 2013 [facility] [address] [id number] [address] [place] [address], [place] [address] 16 Sep, 2013 [facility] [address] [id number] [address] [place] [address], [place] [address] 15 Sep, 2013 [facility] [address] [id number] [address] [place] [address], [place] [address] 11 Mar, 2013 [facility] [address] [id number] [address] [place] [address], [place] [address] 11 Mar, 2013 [facility] [address] [id number] [address] [place] [address], [place] [address] 11 Mar, 2013 [facility] [address] [id number] [address] [place] [address], [place] [address] 11 Mar, 2013 [facility] [address] [id number] [address] [place] [address], [place] [address] 10 Mar, 2013 [facility] [address] [id number] [address] [place] [address], [place] [address] 09 Mar, 2013 [facility] [address] [id number] [address] [place] [address], [place] [address] 09 Mar, 2013 [facility] [address] [id number] [address] [place] [address], [place] [address] Mar, 2013 [facility] [address] [id number] [address] [place] [address], [place] [address] Mar, 2013 [facility] [address] [id number] [address] [place] [address], [place] [address] Feb, [facility] [address] [id number] [address] [place] [address], [place] [address] Feb, [facility] [address] [id number] [facility] [place] [address] Feb, [facility] [address] [id number] [facility] [place] [address] Feb, [facility] [address] [id number] [facility] [place] [address] Feb, [facility] [address] [id number] [address] [place] [address], [place] [address] Feb, [facility] [address] [id number] [address] [place] [address], [place] [address] Feb, [facility] [address] [id number] [address] [place] [address], [place] [address] Feb, [facility] [address] [id number] [address] [place] [address], [place] [address] Feb, [facility] [address] [id number] [address] [place] [address], [place] [address] Feb, [facility] [address] [id number] [address] [place] [address], [place] [address] Feb, [facility] [address] [id number] [address] [place] [address], [place] [address] Feb, [facility] [address] [id number] [address] [place] [address], [place] [address] Feb, [facility] [address] [id number] [address] [place] [address], [place] [address] Feb, [facility] [address] [id number] [address] [place] [address], [place] [address] Jan, [facility] [address] [id number] [address] [place] [address], [place] [address] Jan, [facility] [address] [id number] [address] [place] [address], [place] [address] Jan, [facility] [address] [id number] [address] [place] [address], [place] [address] Jan, [facility] [address] [id number] [facility] [place] [address] Jan, [facility] [address] [id number] [address] [place] [address], [place] [address] Jan, [facility] [address] [id number] [address] [place] [address], [place] [address] Jan, [facility] [address] [id number] [address] [place] [address], [place] [address] Dec, [facility] [address] [id number] [address] [place] [address], [place] [address] Dec, [facility] [address] [id number] [address] [place] [address], [place] [address] Dec, [facility] [address] [id number] [address] [place] [address], [place] [address] Dec, [facility] [address] [id number] [address] [place] [address], [place] [address] Dec, [facility] [address] [id number] [address] [place] [address], [place] [address] Dec, [facility] [address] [id number] [address] [place] [address], [place] [address] Dec, [facility] [address] [id number] [address] [place] [address], [place] [address] Dec, [facility] [address] [id number] [address] [place] [address], [place] [address] Dec, [facility] [address] [id number] [address] [place] [address], [place] [address] November, [facility] [address] [id number] [address] [place] [address], [place] [address] November, [facility] [address] [id number] [address] [place] [address], [place] [address] November, [facility] [address] [id number] [address] [place] [address], [place] [address] November, [facility] [address] [id number] [address] [place] [address], [place] [address] November, [facility] [address] [id number] [address] [place] [address], [place] [address] November, [facility] [address] [id number] [address] [place] [address], [place] [address] November, [facility] [address] [id number] [address] [place] [address], [place] [address] November, [facility] [address] [id number] [address] [place] [address], [place] [address] November, [facility] [address] [id number] [address] [place] [address], [place] [address] November, [facility] [address] [id number] [address] [place] [address], [place] [address] November, [facility] [address] [id number] [address] [place] [address], [place] [address] November, [facility] [address] [id number] [address] [place] [address], [place] [address] November, [facility] [address] [id number] [address] [place] [address], [place] [address] November, [facility] [address] [id number] [address] [place] [address], [place] [address] Oct, [facility] [address] [id number] [address] [place] [address], [place] [address] Oct, [facility] [address] [id number] [address] [place] [address], [place] [address] Oct, [facility] [address] [id number] [address] [place] [address], [place] [address] Oct, [facility] [address] [id number] [address] [place] [address], [place] [address] Oct, [facility] [address] [id number] [address] [place] [address], [place] [address] Oct, [facility] [address] [id number] [address] [place] [address], [place] [address] Sep, [facility] [address] [id number] [address] [place] [address], [place] [address] Sep, [facility] [address] [id number] [address] [place] [address], [place] [address] Sep, [facility] [address] [id number] [address] [place] [address], [place] [address] Sep, [facility] [address] [id number] [address] [place] [address], [place] [address] Aug, [facility] [address] [id number] [address] [place] [address], [place] [address] Aug, [facility] [address] [id number] [address] [place] [address], [place] [address] Aug, [facility] [address] [id number] [address] [place] [address], [place] [address] Aug, [facility] [address] [id number] [address] [place] [address], [place] [address] Jul, [facility] [address] [id number] [address] [place] [address], [place] [address] Jul, [facility] [address] [id number] [address] [place] [address], [place] [address] Jul, [facility] [address] [id number] [address] [place] [address], [place] [address] Jul, [facility] [address] [id number] [address] [place] [address], [place] [address] Jul, [facility] [address] [id number] [address] [place] [address], [place] [address] Jul, [facility] [address] [id number] [address] [place] [address] 14 Jul, 2013 [facility] [address] [id number] [address] [place] [address], [place] [address] 27 Jun, 2013 [facility] [address] [id number] [address] [place] [address] 27 Jun, 2013 [facility] [address] [id number] [address] [place] [address], [place] [address] 17 Jun, 2013 [facility] [address] [id number] [address] [place] [address], [place] [address] 17 Jun, 2013 [facility] [address] [id number] [address] [place] [address], [place] [address] 13 Jun, 2013 [facility] [address] [id number] [address] [place] [address], [place] [address] Jun, [facility] [address] [id number] [address] [place] [address] 07 May, 2013 [facility] [address] [id number] [address] [place] [address], [place] [address] 07 May, 2013 [facility] [address] [id number] [address] [place] [address], [place] [address] 15 Apr, 2013 [facility] [address] [id number] [address] [place] [address] 15 Apr, 2013 [facility] [address] [id number] [address] [place] [address], [place] [address] 10 Apr, 2013 [facility] [address] [id number] [address] [place] [address] 10 Apr, 2013 [facility] [address] [id number] [address] [place] [address] 08 Apr, 2013 [facility] [address] [id number] [address] [place] [address] 24 Mar, 2013 [facility] [address] [id number] [address] [place] [address] 19 Mar, 2013 [facility] [address] [id number] [address] [place] [address], [place] [address] Mar, [facility] [address] [id number] [address] [place] [address], [place] [address] Mar, [facility] [address] [id number] [address] [place] [address], [place] [address] Feb, [facility] [address] [id number] [address] [place] [address], [place] [address] Feb, [facility] [address] [id number] [address] [place] [address], [place] [address] Jan, [facility] [address] [id number] [address] [place] [address], [place] [address] Jan, [facility] [address] [id number] [address] [place] [address], [place] [address] Jan, [facility] [address] [id number] [address] [place] [address], [place] [address] Jan, [facility] [address] [id number] [address] [place] [address], [place] [address] Dec, [facility] [address] [id number] [address] [place] [address], [place] [address] Dec, [facility] [address] [id number] [address] [place] [address], [place] [address] Dec, [facility] [address] [id number] [address] [place] [address], [place] [address] Dec, [facility] [address] [id number] [address] [place] [address], [place] [address] November, [facility] [address] [id number] [address] [place] [address], [place] [address] November, [facility] [address] [id number] [address] [place] [address], [place] [address] Oct, [facility] [address] [id number] [address] [place] [address], [place] [address] 20 Sep, 2012 [facility] [address] [id number] [address] [place] [address], [place] [address] 08 Sep, 2012 [facility] [address] [id number] [address] [place] [address], [place] [address] 14 Aug, 2012 [facility] [address] [id number] [address] [place] [address], [place] [address] 13 Aug, 2012 [facility] [address] [id number] [address] [place] [address], [place] [address] 18 Jul, 2012 [facility] [address] [id number] [address] [place] [address], [place] [address] Jul, [facility] [address] [id number] [address] [place] [address], [place] [address] Jul, [facility] [address] [id number] [address] [place] [address], [place] [address] Jun, [facility] [address] [id number] [address] [place] [address], [place] [address] 28 Jun, 2012 [facility] [address] [id number] [address] [place] [address], [place] [address] 15 Jun, 2012 [facility] [address] [id number] [address] [place] [address], [place] [address] 15 Jun, 2012 [facility] [address] [id number] [address] [place] [address], [place] [address] 20 May, 2012 [facility] [address] [id number] [address] [place] [address], [place] [address] 20 May, 2012 [facility] [address] [id number] [address] [place] [address], [place] [address] 19 May, 2012 [facility] [address] [id number] [address] [place] [address], [place] [address] 14 May, 2012 [facility] [address] [id number] [address] [place] [address], [place] [address] 14 May, 2012 [facility] [address] [id number] [address] [place] [address], [place] [address] May, [facility] [address] [id number] [address] [place] [address], [place] [address] May, [facility] [address] [id number] [address] [place] [address], [place] [address] Apr, [facility] [address] [id number] [address] [place] [address], [place] [address] Apr, [facility] [address] [id number] [address] [place] [address], [place] [address] Apr, [facility] [address] [id number] [address] [place] [address], [place] [address] Apr, [facility] [address] [id number] [address] [place] [address], [place] [address] Apr, [facility] [address] [id number] [address] [place] [address], [place] [address] Apr, [facility] [address] [id number] [address] [place] [address], [place] [address] Apr, [facility] [address] [id number] [address] [place] [address], [place] [address] Apr, [facility] [address] [id number] [address] [place] [address], [place] [address] Jan, [facility] [address] [id number] [address] [place] [address], [place] [address] Jan, [facility] [address] [id number] [address] [place] [address], [place] [address] Dec, [facility] [address] [id number] [address] [place] [address], [place] [address] November, [facility] [address] [id number] [address] [place] [address], [place] [address] Oct, [facility] [address] [id number] [address] [place] [address], [place] [address] Oct, [facility] [address] [id number] [address] [place] [address], [place] [address] 03 Oct, 2011 [facility] [address] [id number] [address] [place] [address], [place] [address] [address], [address] [facility] [address] [id number] [address] [place] [address], [place] [address] Sep, [facility] [address] [id number] [address] [place] [address], [place] [address] Sep, [facility] [address] [id number] [address] [place] [address], [place] [address] Sep, [facility] [address] [id number] [address] [place] [address], [place] [address] Jun, [facility] [address] [id number] [address] [place] [address], [place] [address] Jun, [facility] [address] [id number] [address] [place] [address], [place] [address] 22 May, 2011 [facility] [address] [id number] [address] [place] [address], [place] [address] 14 Jan, 2011 [facility] [address] [id number] [address] [place] [address], [place] [address] November, [facility] [address] [id number] [address] [place] [address], [place] [address] 14 Oct, 2010 [facility] [address] [id number] [address] [place] [address], [place] [address] 16 Sep, 2010 [facility] [address] [id number] [address] [place] [address], [place] [address] 30 May, 2010 [facility] [address] [id number] [address] [place] [address], [place] [address] Jul, [facility] [address] [id number] [address] [place] [address], [place] [address] 23 Jun, 2009 [facility] [address] [id number] [address] [place] [address] Jun, [facility] [address] [id number] [address] [place] [address] Jun, [facility] [address] [id number] [address] [place] [address] Jun, [facility] [address] [id number] [address] [place] [address] May, [facility] [address] [id number] [address] [place] [address] May, [facility] [address] [id number] [address] [place] [address] Apr, [facility] [address] [id number] [address] [place] [address] Apr, [facility] [address] [id number] [address] [place] [address] Apr, IMMUNIZATIONS No Known Immunizations SOCIAL HISTORY [...] right 06/1996 Surgical History multiple knee injections ([id number]) Surgical History left knee replacement 06/11 Hospitalization History Knee surgery- x 3 days 06/11
--- OUTSIDE RECORDS SUMMARY | 2019-12-16 20:24 | XMS REPORT ---
Author Author Patti HERNANDEZ Organization [facility] Address [address] [place] [address] Care Team Providers Care Global Account Manager Name Role Phone DARLING HERNANDEZ Unavailable PROBLEMS Type Condition ICD9-CM Code IBF96-JA Code Onset Dates Condition S tatus SNOMED Code Problem ADD (attention deficit disorder) F90.0 Active 977716410 Problem Drug abuse counseling and surveillance of drug abuser Z71.51 Active 219648349 Problem Insomnia G47.00 Active 801750210 Problem Joint pain M25.50 Active 18727425 Problem Edema, unspecified type R60.9 Active 370057984 Problem Episode of recurrent major d epressive disorder, unspecified depression episode severity F33.9 Active 012681930 Problem Venous insufficiency (chronic) (peripheral) I87.2 Active [id number] Problem Carpal tunnel syndrome on left G56.02 Active 553948883588603 Problem Manic bipolar I disorder in partial remission F31. 73 Active 17636406 Problem Bipolar affective disorder, currently depressed, moderate F31.32 Active 311539050 Problem Social anxiety disorder F40.10 Active 28221004 Problem Other chronic pain G89.29 Active 8 4811199 Problem Stimulant abuse F15.10 Active 4415 50675 Problem Bipolar II disorder F31.81 Active 60006689 Problem ADD (attention deficit disorder) without hyperactivity F98.8 Active 96240140 ALLERGIES No Information ENCOUNTERS Encounter Location Date Diagnosis [facility] [address] [facility] [id number] [address] [place] [phone] Aug, [facility] [address] [facility] [id number] [address] [place] [phone] Aug, Bipolar II disorder F31.81 ; Social anxiety disorder F40.10 and ADD (attention deficit disorder) F90.0 [facility] [address] [facility] [id number] [address] [place] [phone] Jul, [facility] [address] [facility] [id number] [address] [place] [phone] Apr, [place] [address] [facility] [id number] [address] [place] [phone] Apr, Bipolar II disorder F31.81 a nd Social anxiety disorder F40.10 [place] [address] [facility] [id number] [address] [place] [phone] Jan, Bipolar affective disorder, currently depressed, moderate F31.32 [place] [address] [facility] [id number] [address] [place] [phone] Jan, Bipolar affective disorder, currently depressed, moderate F31.32 ; Social anxiety disorder F40.10 and Morbid obesity E66.01 [place] [address] [facility] [id number] [address] [place] [phone] May, Screening for lipid disorder s Z13.220 [place] [address] [place] [id number] [address] [place] [phone] May, Carpal tunnel syndrome on le ft G56.02 ; Social anxiety disorder F40.10 and Screening for lipid disorders Z13.220 [place] [address] [facility] [id number] [address] [place] [id number] 11 Apr, 2018 Bipolar II disorder F31.81 ; Social anxiety disorder F40.10 ; ADD (attention deficit disorder) without hyperactivity F98.8 and BMI 45.0-49.9, adult Z68.42 [place] [address] [facility] [id number] [address] [place] [phone] Mar, [place] [address] [facility] [id number] [address] [place] [phone] Feb, BMI 45.0-49.9, adult Z68.42 ; Carpal tunnel syndrome on left G56.02 and Social anxiety disorder F40.10 [place] [address] [facility] [id number] [address] [place] [phone] Jan, Bipolar II disorder F31.81 ; ADD (attention deficit disorder) without hyperactivity F98.8 ; Social anxiety disorder F40.10 and Stimulant abuse F15.10 [facility] [address] [place] [id number] [address] [place] [phone] Dec, Episode of recurrent major d epressive disorder, unspecified depression episode severity F33.9 ; Other chronic pain G89.29 ; Radiculopathy, lumbar region M54.16 ; Edema of lower extremity R60.0 and BMI 45.0-49.9, adult Z68.42 [place] [id number] [place] [phone] Jun, [place] [address] [place] [id number] [place] [address] Jan, Joint pain M25.50 [place] [address] [place] [id number] [address] [place] [phone] Jan, Wellness examination Z00.00 ; Pain in right knee M25.561 ; Pain in left knee M25.562 ; Edema, unspecified type R60.9 and Drug abuse counseling and surveillance of drug abuser Z71.51 [place] [address] [place] [id number] [address] [place] [address] November, [place] [address] [place] [id number] [address] [place] [phone] Oct, [facility] [address] [place] [id number] [address] [place] [phone] Oct, ADD (attention deficit disor josselin) F90.0 ; Social anxiety disorder F40.10 and Manic bipolar I disorder in partial remission F31.73 [facility] [address] [place] [id number] [address] [place] [phone] Aug, [facility] [address] [place] [id number] [address] [place] [phone] Aug, [facility] [address] [place] [id number] [address] [place] [phone] Aug, [facility] [address] [facility] [id number] [address] [place] [phone] Jul, [facility] [address] [facility] [id number] [address] [place] [phone] Jul, [facility] [address] [facility] [id number] [address] [place] [phone] Jul, [facility] [address] [facility] [id number] [address] [place] [phone] Jun, [facility] [address] [facility] [id number] [address] [place] [phone] Jun, [facility] [address] [facility] [id number] [address] [place] [phone] Jun, [facility] [address] [facility] [id number] [address] [place] [phone] Jun, [facility] [address] [facility] [id number] [address] [place] [address] May, Joint pain M25.50 ; ADD (att ention deficit disorder) F90.0 ; Edema R60.9 and Insomnia G47.00 [facility] [address] [facility] [id number] [address] [place] [phone] May, [facility] [address] [facility] [id number] [address] [place] [phone] May, [facility] [address] [facility] [id number] [address] [place] [phone] May, [facility] [address] [facility] [id number] [address] [place] [phone] May, Left wrist pain M25.532 ; Si nusitis J32.9 and Drug abuse counseling and surveillance of drug abuser Z71.51 [facility] [address] [facility] [id number] [address] [place] [phone] Apr, [facility] [address] [facility] [id number] [address] [place] [phone] 15 Apr, 2015 [facility] [address] [facility] [id number] [address] [place] [phone] 15 Apr, 2015 [facility] [address] [facility] [id number] [address] [place] [phone] 14 Apr, 2015 [facility] [address] [facility] [id number] [address] [place] [phone] Apr, [facility] [address] [facility] [id number] [address] [place] [phone] Apr, [facility] [address] [facility] [id number] [address] [place] [phone] Apr, [facility] [address] [facility] [id number] [address] [place] [id number] 21 Mar, 2015 Unspecified venous (peripher al) insufficiency 459.81 ; Bipolar I disorder, most recent episode (or current) manic, moderate 296.42 ; Social phobia 300.23 ; Attention deficit disorder of childhood without mention of hyperactivity 314.00 ; Pain in joint, lower leg 719.46 ; Thrombosis 453.9 and Chronic pain 338.29 [facility] [address] [facility] [id number] [address] [place] [id number] 18 Mar, 2015 [facility] [address] [facility] [id number] [address] [place] [id number] 18 Mar, 2015 [facility] [address] [facility] [id number] [address] [place] [phone] 18 Mar, 2015 [facility] [address] [facility] [id number] [address] [place] [phone] 17 Mar, 2015 [facility] [address] [facility] [id number] [address] [place] [phone] 17 Mar, 2014 [facility] [address] [facility] [id number] [address] [place] [phone] 11 Mar, 2015 [facility] [address] [facility] [id number] [address] [place] [phone] Mar, Manic bipolar I disorder in partial remission 296.45 ; Social phobia 300.23 and Attention deficit disorder of childhood without mention of hyperactivity 314.00 [facility] [address] [facility] [id number] [address] [place] [phone] Mar, [facility] [address] [facility] [id number] [address] [place] [phone] Feb, [facility] [address] [facility] [id number] [address] [place] [phone] Feb, Thrombosis 453.9 ; Unspecifi ed venous (peripheral) insufficiency 459.81 ; Bipolar I disorder, most recent episode (or current) manic, moderate 296.42 ; Social phobia 300.23 ; Attention deficit disorder of childhood without mention of hyperactivity 314.00 ; Pain in joint, lower leg 719.46 and Edema 782.3 [place] [address] [place] [id number] [address] [place] [phone] Feb, [facility] [address] [place] [id number] [address] [place] [phone] Feb, Social phobia 300.23 ; Atten tion deficit disorder of childhood without mention of hyperactivity 314.00 and Bipolar I disorder, most recent episode manic, in partial remission 296.45 [facility] [address] [facility] [id number] [address] [place] [phone] Jan, [facility] [address] [place] [id number] [address] [place] [phone] Jan, [facility] [address] [place] [id number] [address] [place] [phone] Jan, Unspecified venous (peripher al) insufficiency 459.81 and Thrombophlebitis 451.9 [facility] [address] [facility] [id number] [address] [place] [phone] Jan, [facility] [address] [facility] [id number] [address] [place] [phone] Dec, Headache 784.0 and Back pain 724.5 [facility] [address] [id number] [address] [place] [phone] Dec, [facility] [address] [id number] [address] [place] [phone] Dec, Bipolar I disorder, most rec ent episode (or current) manic, moderate 296.42 ; Attention deficit disorder of childhood without mention of hyperactivity 314.00 and Social phobia 300.23 [facility] [address] [id number] [address] [place] [phone] November, [facility] [address] [id number] [address] [place] [phone] November, [facility] [address] [facility] [id number] [address] [place] [phone] Oct, [facility] [address] [facility] [id number] [address] [place] [phone] Oct, [facility] [address] [facility] [id number] [address] [place] [phone] Sep, [facility] [address] [id number] [address] [place] [phone] Sep, [facility] [address] [facility] [id number] [address] [place] [phone] Aug, [facility] [address] [facility] [id number] [address] [place] [phone] Aug, [facility] [address] [facility] [id number] [address] [place] [phone] Aug, [facility] [address] [facility] [id number] [address] [place] [phone] Aug, [facility] [address] [facility] [id number] [address] [place] [phone] Aug, [facility] [address] [facility] [id number] [address] [place] [phone] Aug, [facility] [address] [id number] [address] [place] [address], [place] [id number] Aug, [facility] [address] [id number] [address] [place] [address], [place] [address] Jul, [facility] [address] [id number] [address] [place] [address], [place] [address] Jul, [facility] [address] [id number] [address] [place] [address], [place] [address] Jun, [facility] [address] [id number] [address] [place] [address], [place] [id number] Jun, [facility] [address] [id number] [address] [place] [address], [place] [address] May, [facility] [address] [id number] [address] [place] [address], [place] [address] May, [facility] [address] [id number] [address] [place] [address], [place] [address] May, [facility] [address] [id number] [address] [place] [address], [place] [address] May, [facility] [address] [id number] [address] [place] [address], [place] [address] May, [facility] [address] [id number] [address] [place] [address], [place] [address] May, [facility] [address] [id number] [address] [place] [address], [place] [address] Apr, [facility] [address] [id number] [address] [place] [address], [place] [address] Apr, [facility] [address] [id number] [address] [place] [address], [place] [address] Apr, [facility] [address] [id number] [address] [place] [address], [place] [address] Apr, [facility] [address] [id number] [address] [place] [address], [place] [address] 22 Sep, 2013 [facility] [address] [id number] [facility] [place] [address] 22 Sep, 2013 [facility] [address] [id number] [address] [place] [address], [place] [id number] 19 Sep, 2013 [facility] [address] [id number] [address] [place] [address], [place] [address] 16 Sep, 2013 [facility] [address] [id number] [address] [place] [address], [place] [address] 16 Sep, 2013 [facility] [address] [id number] [address] [place] [address], [place] [address] 15 Mar, 2013 [facility] [address] [id number] [address] [place] [address], [place] [address] 11 Mar, 2013 [facility] [address] [id number] [address] [place] [address], [place] [address] 11 Mar, 2013 [facility] [address] [id number] [address] [place] [address], [place] [address] 11 Mar, 2013 [facility] [address] [id number] [address] [place] [address], [place] [address] 11 Mar, 2013 [facility] [address] [id number] [address] [place] [address], [place] [id number] 10 Mar, 2013 [facility] [address] [id number] [address] [place] [address], [place] [address] 09 Mar, 2013 [facility] [address] [id number] [address] [place] [address], [place] [id number] 09 Mar, 2013 [facility] [address] [id number] [address] [place] [address], [place] [address] 02 Mar, 2013 [facility] [address] [id number] [address] [place] [address], [place] [address] 02 Mar, 2013 [facility] [address] [id number] [address] [place] [address], [place] [address] 29 Feb, 2014 [facility] [address] [id number] [address] [place] [address], [place] [id number] Feb, [facility] [address] [id number] [address] [place] [address], [place] [address] Feb, [facility] [address] [id number] [address] [place] [address], [place] [address] Feb, [facility] [address] [id number] [address] [place] [address], [place] [address] Feb, [facility] [address] [id number] [address] [place] [address], [place] [address] Feb, [facility] [address] [id number] [address] [place] [address], [place] [address] Feb, [facility] [address] [id number] [address] [place] [address], [place] [address] Feb, [facility] [address] [id number] [address] [place] [address], [place] [address] Feb, [facility] [address] [id number] [address] [place] [address], [place] [address] Feb, [facility] [address] [id number] [address] [place] [address], [place] [address] Feb, [facility] [address] [id number] [address] [place] [address], [place] [address] Feb, [facility] [address] [id number] [address] [place] [address], [place] [address] Feb, [facility] [address] [id number] [address] [place] [address], [place] [id number] Feb, [facility] [address] [id number] [address] [place] [address], [place] [address] Jan, [facility] [address] [id number] [address] [place] [address], [place] [address] Jan, [facility] [address] [id number] [address] [place] [address], [place] [address] Jan, [facility] [address] [id number] [address] [place] [address], [place] [id number] Jan, [facility] [address] [id number] [address] [place] [address], [place] [id number] Jan, [facility] [address] [id number] [address] [place] [address], [place] [id number] Jan, [facility] [address] [id number] [address] [place] [address], [place] [address] Jan, [facility] [address] [id number] [address] [place] [address], [place] [address] Dec, [facility] [address] [id number] [address] [place] [address], [place] [address] Dec, [facility] [address] [id number] [address] [place] [address], [place] [address] Dec, [facility] [address] [id number] [address] [place] [address], [place] [address] Dec, [facility] [address] [id number] [address] [place] [address], [place] [address] Dec, [facility] [address] [id number] [address] [place] [address], [place] [address] Dec, [facility] [address] [id number] [address] [place] [address], [place] [address] Dec, [facility] [address] [id number] [address] [place] [address], [place] [address] Dec, [facility] [address] [id number] [address] [place] [address], [place] [id number] Dec, [facility] [address] [id number] [address] [place] [address], [place] [address] November, [facility] [address] [id number] [address] [place] [address], [place] [address] November, [facility] [address] [id number] [address] [place] [address], [place] [address] November, [facility] [address] [id number] [address] [place] [address], [place] [address] November, [facility] [address] [id number] [address] [place] [address], [place] [id number] November, [facility] [address] [id number] [address] [place] [address], [place] [id number] November, [facility] [address] [id number] [address] [place] [address], [place] [id number] November, [facility] [address] [id number] [address] [place] [address], [place] [id number] November, [facility] [address] [id number] [address] [place] [address], [place] [id number] November, [facility] [address] [id number] [address] [place] [address], [place] [id number] November, [facility] [address] [id number] [address] [place] [address], [place] [id number] November, [facility] [address] [id number] [address] [place] [address], [place] [id number] November, [facility] [address] [id number] [address] [place] [address], [place] [id number] November, [facility] [address] [id number] [address] [place] [address], [place] [id number] November, [facility] [address] [id number] [address] [place] [address], [place] [id number] Oct, [facility] [address] [id number] [address] [place] [address], [place] [id number] Oct, [facility] [address] [id number] [address] [place] [address], [place] [id number] Oct, [facility] [address] [id number] [address] [place] [address], [place] [id number] Oct, [facility] [address] [id number] [address] [place] [address], [place] [id number] Oct, [facility] [address] [id number] [address] [place] [address], [place] [id number] Oct, [facility] [address] [id number] [address] [place] [address], [place] [id number] Sep, [facility] [address] [id number] [address] [place] [address], [place] [id number] Sep, [facility] [address] [id number] [address] [place] [address], [place] [id number] Sep, [facility] [address] [id number] [address] [place] [address], [place] [id number] Sep, [facility] [address] [id number] [address] [place] [address], [place] [id number] Aug, [facility] [address] [id number] [address] [place] [address], [place] [id number] Aug, [facility] [address] [id number] [address] [place] [address], [place] [id number] Aug, [facility] [address] [id number] [address] [place] [address], [place] [id number] Aug, [facility] [address] [id number] [address] [place] [address], [place] [id number] Jul, [facility] [address] [id number] [address] [place] [address], [place] [id number] Jul, [facility] [address] [id number] [address] [place] [address], [place] [id number] Jul, [facility] [address] [id number] [address] [place] [address], [place] [id number] Jul, [facility] [address] [id number] [address] [place] [address], [place] [id number] Jul, [facility] [address] [id number] [address] [place] [address], [place] [id number] 14 Jul, 2013 [facility] [facility] [address] [id number] [address] [place] [address], [place] [id number] 14 Jul, 2013 [facility] [address] [id number] [address] [place] [address], [place] [id number] 27 Jun, 2013 [facility] [address] [id number] [address] [place] [address], [place] [id number] 27 Jun, 2013 [facility] [address] [id number] [address] [place] [address], [place] [id number] 17 Jun, 2013 [facility] [address] [id number] [address] [place] [address], [place] [id number] 17 Jun, 2013 [facility] [address] [id number] [address] [place] [address], [place] [address] Jun, [facility] [address] [id number] [address] [place] [address], [place] [address] Jun, [facility] [address] [id number] [address] [place] [address], [place] [id number] 07 May, 2013 [facility] [address] [id number] [address] [place] [address], [place] [id number] 07 May, 2013 [facility] [address] [id number] [address] [place] [address], [place] [id number] 15 Apr, 2013 [facility] [address] [id number] [address] [place] [address], [place] [id number] 15 Apr, 2013 [facility] [address] [id number] [address] [place] [id number] 10 Apr, 2013 [facility] [address] [id number] [address] [place] [address], [place] [address] 10 Apr, 2013 [facility] [address] [id number] [address] [place] [address], [place] [id number] 08 Apr, 2013 [facility] [address] [id number] [address] [place] [address], [place] [id number] 24 Mar, 2013 [facility] [address] [id number] [address] [place] [address], [place] [id number] Mar, [facility] [place] [address] [id number] [address] [place] [address], [place] [id number] Mar, [facility] [place] [address] [id number] [address] [place] [address], [place] [id number] Mar, [facility] [address] [id number] [address] [place] [address], [place] [id number] Feb, [facility] [address] [id number] [address] [place] [address], [place] [id number] Feb, [facility] [place] [address] [id number] [address] [place] [address], [place] [address] Jan, [facility] [address] [id number] [address] [place] [address], [place] [id number] Jan, [facility] [place] [address] [id number] [address] [place] [address], [place] [address] Jan, [facility] [address] [id number] [address] [place] [address], [place] [address] Jan, [facility] [place] [address] [id number] [address] [place] [address], [place] [address] Dec, [facility] [address] [id number] [address] [place] [address], [place] [id number] Dec, [facility] [place] [address] [id number] [address] [place] [address], [place] [id number] Dec, [facility] [address] [id number] [address] [place] [address], [place] [address] Dec, [facility] [address] [id number] [address] [place] [address], [place] [address] November, [facility] [address] [id number] [address] [place] [address], [place] [id number] November, [facility] [address] [id number] [address] [place] [address], [place] [id number] Oct, [facility] [address] [id number] [address] [place] [address], [place] [id number] 20 Sep, 2012 [facility] [address] [id number] [address] [place] [address], [place] [id number] 08 Sep, 2012 [facility] [address] [id number] [address] [place] [address], [place] [id number] 14 Aug, 2012 [facility] [address] [id number] [address] [place] [address], [place] [id number] 13 Aug, 2012 [facility] [address] [id number] [address] [place] [address], [place] [id number] 18 Jul, 2012 [facility] [address] [id number] [address] [place] [address], [place] [address] Jul, [facility] [address] [id number] [address] [place] [address], [place] [id number] Jul, [facility] [address] [id number] [address] [place] [address], [place] [id number] 28 Jun, 2012 [facility] [address] [id number] [address] [place] [address], [place] [address] 28 Jun, 2012 [facility] [address] [id number] [address] [place] [address], [place] [address] 15 Jun, 2012 [facility] [address] [id number] [address] [place] [address], [place] [address] 15 Jun, 2012 [facility] [address] [id number] [address] [place] [id number] 20 May, 2012 [facility] [address] [id number] [address] [place] [address], [place] [id number] 20 May, 2012 [facility] [address] [id number] [address] [place] [address], [place] [id number] 19 May, 2012 [facility] [address] [id number] [address] [place] [address], [place] [address] 14 May, 2012 [facility] [address] [id number] [address] [place] [id number] May, [facility] [address] [id number] [address] [place] [address], [place] [address] May, [facility] [address] [id number] [address] [place] [id number] May, [facility] [address] [id number] [address] [place] [address], [place] [id number] Apr, [facility] [address] [id number] [address] [place] [address], [place] [address] Apr, [facility] [address] [id number] [address] [place] [address], [place] [address] Apr, [facility] [address] [id number] [address] [place] [address], [place] [address] Apr, [facility] [address] [id number] [address] [place] [address], [place] [address] Apr, [facility] [address] [id number] [address] [place] [address], [place] [address] Apr, [facility] [address] [id number] [address] [place] [address], [place] [address] Apr, [facility] [address] [id number] [address] [place] [id number] Apr, [facility] [address] [id number] [address] [place] [address], [place] [address] Jan, [facility] [address] [id number] [address] [place] [id number] Jan, [facility] [address] [id number] [address] [place] [id number] Dec, [facility] [address] [id number] [address] [place] [address], [place] [address] November, [facility] [address] [id number] [address] [place] [address], [place] [id number] Oct, [facility] [address] [id number] [address] [place] [address], [place] [address] 10 Oct, 2011 [facility] [address] [id number] [address] [place] [address], [place] [address] 03 Oct, 2011 [facility] [address] [id number] [address] [place] [address], [place] [address] 02 Oct, 2011 [facility] [address] [id number] [address] [place] [address], [place] [id number] Sep, [facility] [address] [id number] [address] [place] [address], [place] [address] Sep, [facility] [address] [id number] [address] [place] [address], [place] [address] Sep, [facility] [address] [id number] [address] [place] [address], [place] [address] 13 Jun, 2011 [facility] [address] [id number] [address] [place] [address], [place] [id number] 13 Jun, 2011 [facility] [address] [id number] [address] [place] [address], [place] [address] May, [facility] [address] [id number] [address] [place] [address], [place] [id number] 14 Jan, 2011 [facility] [address] [id number] [address] [place] [address], [place] [id number] November, [facility] [address] [id number] [address] [place] [address], [place] [address] 14 Oct, 2010 [facility] [address] [id number] [address] [place] [address], [place] [id number] 16 Sep, 2010 [facility] [address] [id number] [address] [place] [address], [place] [address] 30 May, 2010 [facility] [address] [id number] [address] [place] [address], [place] [address] Jul, [facility] [address] [id number] [address] [place] [address] [address] Jun, [facility] [address] [id number] [address] [place] [id number] Jun, [facility] [address] [id number] [address] [place] [id number] Jun, [facility] [address] [id number] [address] [place] [id number] Jun, [facility] [address] [id number] [address] [place] [id number] May, [facility] [address] [id number] [address] [place] [id number] May, [facility] [address] [id number] [address] [place] [id number] Apr, [facility] [address] [id number] [address] [place] [id number] Apr, [facility] [address] [id number] [address] [place] [id number] Apr, IMMUNIZATIONS No Known Immunizations SOCIAL HISTORY [...] right 06/1996 Surgical History multiple knee injections ([id number]) Surgical History left knee replacement 06/11 Hospitalization History Knee surgery- x 3 days 06/11
--- OUTSIDE RECORDS SUMMARY | 2019-12-16 20:24 | XMS REPORT ---
Author Author Patti HERNANDEZ Organization [facility] Address [address] [place] [address] Care Team Providers Care Extension Service Specialist In Charge Name Role Phone DARLING HERNANDEZ Unavailable PROBLEMS Type Condition ICD9-CM Code [id number] Code Onset Dates Condition S tatus SNOMED Code Problem ADD (attention deficit disorder) F90.0 Active 023116760 Problem Drug abuse counseling and surveillance of drug abuser Z71.51 Active 563070313 Problem Insomnia G47.00 Active 584258534 Problem Joint pain M25.50 Active 45065393 Problem Edema, unspecified type R60.9 Active 096850067 Problem Episode of recurrent major d epressive disorder, unspecified depression episode severity F33.9 Active 988450742 Problem Venous insufficiency (chronic) (peripheral) I87.2 Active 80360278703305182 Problem Carpal tunnel syndrome on left G56.02 Active 954207600608127 Problem Manic bipolar I disorder in partial remission F31. 73 Active 51067165 Problem Bipolar affective disorder, currently depressed, moderate F31.32 Active 805670070 Problem Social anxiety disorder F40.10 Active 49891765 Problem Other chronic pain G89.29 Active 8 8510786 Problem Stimulant abuse F15.10 Active 4175 03051 Problem Bipolar II disorder F31.81 Active 63445814 Problem ADD (attention deficit disorder) without hyperactivity F98.8 Active 98316316 ALLERGIES No Information ENCOUNTERS Encounter Location Date Diagnosis [facility] [address] [facility] [id number] [address] [place] [address] Oct, [facility] [address] [facility] [id number] [address] [place] [address] Oct, [facility] [address] [facility] [id number] [address] [place] [address] Aug, [facility] [address] [place] [id number] [place] [address] Aug, Bipolar II disorder F31.81 ; Social anxiety disorder F40.10 and ADD (attention deficit disorder) F90.0 [place] [address] [address] Jul, [place] [address] [place] [id number] [place] [address] Apr, [place] [address] [address] Apr, Bipolar II disorder F31.81 a nd Social anxiety disorder F40.10 [place] [address] [address] Jan, Bipolar affective disorder, currently depressed, moderate F31.32 [place] [address] [address] Jan, Bipolar affective disorder, currently depressed, moderate F31.32 ; Social anxiety disorder F40.10 and Morbid obesity E66.01 [place] [address] [address] May, Screening for lipid disorder s Z13.220 [place] [address] [address] May, Carpal tunnel syndrome on le ft G56.02 ; Social anxiety disorder F40.10 and Screening for lipid disorders Z13.220 [place] [address] [address] Apr, Bipolar II disorder F31.81 ; Social anxiety disorder F40.10 ; ADD (attention deficit disorder) without hyperactivity F98.8 and BMI 45.0-49.9, adult Z68.42 [place] [address] [place] [id number] [place] [address] Mar, [place] [address] [place] [id number] [place] [address] Feb, BMI 45.0-49.9, adult Z68.42 ; Carpal tunnel syndrome on left G56.02 and Social anxiety disorder F40.10 [place] [address] [address] Jan, Bipolar II disorder F31.81 ; ADD (attention deficit disorder) without hyperactivity F98.8 ; Social anxiety disorder F40.10 and Stimulant abuse F15.10 [place] [address] [address] Dec, Episode of recurrent major d epressive disorder, unspecified depression episode severity F33.9 ; Other chronic pain G89.29 ; Radiculopathy, lumbar region M54.16 ; Edema of lower extremity R60.0 and BMI 45.0-49.9, adult Z68.42 [place] [address] [address] Jun, [place] [address] [address] Jan, Joint pain M25.50 [place] [address] [address] Jan, Wellness examination Z00.00 ; Pain in right knee M25.561 ; Pain in left knee M25.562 ; Edema, unspecified type R60.9 and Drug abuse counseling and surveillance of drug abuser Z71.51 [place] [address] [place] [id number] [place] [address] November, [place] [address] [place] [id number] [place] [address] Oct, [place] [address] [address] Oct, ADD (attention deficit disor josselin) F90.0 ; Social anxiety disorder F40.10 and Manic bipolar I disorder in partial remission F31.73 [place] [address] [place] [id number] [place] [address] Aug, [facility] [address] [id number] [address] [place] [address] Aug, [facility] [address] [id number] [address] [place] [address] Aug, [facility] [address] [facility] [id number] [address] [place] [address] Jul, [facility] [address] [id number] [address] [place] [address] Jul, [facility] [address] [facility] [facility] [id number] [address] [place] [address] Jul, [facility] [address] [facility] [id number] [address] [place] [address] Jun, [facility] [address] [facility] [facility] [id number] [address] [place] [address] Jun, [facility] [address] [facility] [facility] [id number] [address] [place] [address] Jun, [facility] [address] [facility] [facility] [id number] [address] [place] [address] Jun, [facility] [address] [facility] [facility] [id number] [address] [place] [address] May, Joint pain M25.50 ; ADD (att ention deficit disorder) F90.0 ; Edema R60.9 and Insomnia G47.00 [facility] [address] [facility] [facility] [id number] [address] [place] [address] May, [facility] [address] [facility] [facility] [id number] [address] [place] [address] May, [facility] [address] [facility] [facility] [id number] [address] [place] [address] May, [facility] [address] [facility] [facility] [id number] [address] [place] [address] May, Left wrist pain M25.532 ; Si nusitis J32.9 and Drug abuse counseling and surveillance of drug abuser Z71.51 [facility] [address] [facility] [facility] [id number] [address] [place] [address] Apr, [facility] [address] [facility] [facility] [id number] [address] [place] [address] Apr, [facility] [address] [facility] [facility] [id number] [address] [place] [address] Apr, [facility] [address] [facility] [facility] [id number] [address] [place] [address] Apr, [facility] [address] [facility] [facility] [id number] [address] [place] [address] Apr, [facility] [address] [place] [id number] [address] [place] [address] Apr, [facility] [address] [place] [id number] [address] [place] [address] Apr, [facility] [address] [place] [id number] [address] [place] [address] Mar, Unspecified venous (peripher al) insufficiency 459.81 ; Bipolar I disorder, most recent episode (or current) manic, moderate 296.42 ; Social phobia 300.23 ; Attention deficit disorder of childhood without mention of hyperactivity 314.00 ; Pain in joint, lower leg 719.46 ; Thrombosis 453.9 and Chronic pain 338.29 [facility] [address] [facility] [facility] [id number] [address] [place] [address] Mar, [facility] [address] [facility] [facility] [id number] [address] [place] [address] Mar, [facility] [address] [place] [id number] [address] [place] [address] Mar, [facility] [address] [facility] [facility] [id number] [address] [place] [address] Mar, [facility] [address] [place] [id number] [address] [place] [address] Mar, [facility] [address] [facility] [facility] [id number] [address] [place] [address] Mar, [facility] [address] [facility] [facility] [id number] [address] [place] [address] Mar, Manic bipolar I disorder in partial remission 296.45 ; Social phobia 300.23 and Attention deficit disorder of childhood without mention of hyperactivity 314.00 [facility] [address] [facility] [facility] [id number] [address] [place] [address] Mar, [facility] [address] [facility] [facility] [id number] [address] [place] [address] Feb, [facility] [address] [place] [id number] [address] [place] [address] Feb, Thrombosis 453.9 ; Unspecifi ed venous (peripheral) insufficiency 459.81 ; Bipolar I disorder, most recent episode (or current) manic, moderate 296.42 ; Social phobia 300.23 ; Attention deficit disorder of childhood without mention of hyperactivity 314.00 ; Pain in joint, lower leg 719.46 and Edema 782.3 [facility] [address] [facility] [facility] [id number] [address] [place] [address] Feb, [facility] [address] [place] [id number] [address] [place] [address] Feb, Social phobia 300.23 ; Atten tion deficit disorder of childhood without mention of hyperactivity 314.00 and Bipolar I disorder, most recent episode manic, in partial remission 296.45 [facility] [address] [facility] [facility] [id number] [address] [place] [address] Jan, [facility] [address] [facility] [facility] [id number] [address] [place] [address] Jan, [facility] [address] [facility] [facility] [id number] [address] [place] [address] Jan, Unspecified venous (peripher al) insufficiency 459.81 and Thrombophlebitis 451.9 [facility] [address] [facility] [facility] [id number] [address] [place] [address] Jan, [facility] [address] [facility] [facility] [id number] [address] [place] [address] Dec, Headache 784.0 and Back pain 724.5 [facility] [address] [facility] [facility] [id number] [address] [place] [address] Dec, [facility] [address] [facility] [facility] [id number] [address] [place] [address] Dec, Bipolar I disorder, most rec ent episode (or current) manic, moderate 296.42 ; Attention deficit disorder of childhood without mention of hyperactivity 314.00 and Social phobia 300.23 [facility] [address] [facility] [facility] [id number] [address] [place] [address] November, [facility] [address] [facility] [facility] [id number] [address] [place] [address] November, [facility] [address] [facility] [facility] [id number] [address] [place] [address] Oct, [facility] [address] [facility] [facility] [id number] [address] [place] [address] Oct, [facility] [address] [facility] [facility] [id number] [address] [place] [address] Sep, [facility] [address] [facility] [facility] [id number] [address] [place] [address] Sep, [facility] [address] [facility] [facility] [id number] [address] [place] [address] Aug, [facility] [address] [facility] [facility] [id number] [address] [place] [address] Aug, [facility] [address] [facility] [facility] [id number] [address] [place] [address] Aug, [facility] [address] [facility] [facility] [id number] [address] [place] [address] Aug, [facility] [address] [id number] [address] [place] [address], [place] [address] Aug, 2014 [facility] [address] [id number] [address] [place] [address], [place] [address] Aug, [facility] [address] [id number] [address] [place] [address], [place] [address] Aug, [facility] [address] [id number] [address] [place] [address], [place] [address] Jul, [facility] [address] [id number] [address] [place] [address], [place] [address] Jul, [facility] [address] [id number] [address] [place] [address], [place] [address] Jun, [facility] [address] [id number] [address] [place] [address], [place] [address] Jun, [facility] [address] [id number] [address] [place] [address], [place] [address] May, [facility] [address] [id number] [address] [place] [address], [place] [address] May, [facility] [address] [id number] [address] [place] [address], [place] [address] May, [facility] [address] [id number] [address] [place] [address], [place] [address] May, [facility] [address] [id number] [address] [place] [address], [place] [address] May, [facility] [address] [id number] [address] [place] [address], [place] [address] May, [facility] [address] [id number] [address] [place] [address], [place] [address] Apr, [facility] [address] [id number] [address] [place] [address], [place] [address] Apr, [facility] [address] [id number] [address] [place] [address], [place] [address] 23 Apr, 2014 [facility] [address] [id number] [address] [place] [address], [place] [address] 23 Apr, 2014 [facility] [address] [id number] [address] [place] [address], [place] [address] 22 Mar, 2013 [facility] [address] [id number] [address] [place] [address], [place] [address] 22 Sep, 2013 [facility] [address] [id number] [address] [place] [address], [place] [address] 19 Sep, 2013 [facility] [address] [id number] [address] [place] [address], [place] [address] 16 Mar, 2013 [facility] [address] [id number] [address] [place] [address], [place] [address] 16 Mar, 2013 [facility] [address] [id number] [address] [place] [address], [place] [address] 15 Mar, 2013 [facility] [address] [id number] [address] [place] [address], [place] [address] 11 Mar, 2013 [facility] [address] [id number] [address] [place] [address], [place] [address] 11 Mar, 2013 [facility] [address] [id number] [address] [place] [address], [place] [address] 11 Mar, 2013 [facility] [address] [id number] [address] [place] [address], [place] [address] 11 Mar, 2013 [facility] [address] [id number] [address] [place] [address], [place] [address] 10 Sep, 2013 [facility] [address] [id number] [address] [place] [address], [place] [address] 09 Sep, 2013 [facility] [address] [id number] [address] [place] [address], [place] [address] 09 Sep, 2013 [facility] [address] [id number] [address] [place] [address], [place] [address] 02 Sep, 2013 [facility] [address] [id number] [address] [place] [address], [place] [address] Mar, [facility] [address] [id number] [address] [place] [address], [place] [address] Feb, [facility] [address] [id number] [address] [place] [address], [place] [address] Feb, [facility] [address] [id number] [address] [place] [address], [place] [address] Feb, [facility] [address] [id number] [address] [place] [address], [place] [address] Feb, [facility] [address] [id number] [address] [place] [address], [place] [address] Feb, [facility] [address] [id number] [address] [place] [address], [place] [address] Feb, [facility] [address] [id number] [address] [place] [address], [place] [address] Feb, [facility] [address] [id number] [address] [place] [address], [place] [address] Feb, [facility] [address] [id number] [address] [place] [address], [place] [address] Feb, [facility] [address] [id number] [address] [place] [address], [place] [address] Feb, [facility] [address] [id number] [address] [place] [address], [place] [address] Feb, [facility] [address] [id number] [address] [place] [address], [place] [address] Feb, [facility] [address] [id number] [address] [place] [address], [place] [address] Feb, [facility] [address] [id number] [address] [place] [address], [place] [address] Feb, [facility] [address] [id number] [address] [place] [address], [place] [address] Jan, [facility] [address] [id number] [address] [place] [address], [place] [address] 17 Jan, 2013 [facility] [address] [id number] [address] [place] [address], [place] [address] Jan, 2013 [facility] [address] [id number] [address] [place] [address], [place] [address] Jan, 2013 [facility] [address] [id number] [address] [place] [address], [place] [address] Jan, 2013 [facility] [address] [id number] [address] [place] [address], [place] [address] Jan, [facility] [address] [id number] [address] [place] [address], [place] [address] Jan, [facility] [address] [id number] [address] [place] [address], [place] [address] Dec, [facility] [address] [id number] [address] [place] [address], [place] [address] Dec, [facility] [address] [id number] [address] [place] [address], [place] [address] Dec, [facility] [address] [id number] [address] [place] [address], [place] [address] Dec, [facility] [address] [id number] [address] [place] [address], [place] [address] Dec, [facility] [address] [id number] [address] [place] [address], [place] [address] Dec, [facility] [address] [id number] [address] [place] [address], [place] [address] Dec, [facility] [address] [id number] [address] [place] [address], [place] [address] Dec, [facility] [address] [id number] [address] [place] [address], [place] [address] Dec, [facility] [address] [id number] [address] [place] [address], [place] [address] November, [facility] [address] [id number] [address] [place] [address], [place] [address] November, [facility] [address] [id number] [address] [place] [address], [place] [address] November, [facility] [address] [id number] [address] [place] [address], [place] [address] November, [facility] [address] [id number] [address] [place] [address], [place] [address] November, [facility] [address] [id number] [address] [place] [address], [place] [address] November, [facility] [address] [id number] [address] [place] [address], [place] [address] November, [facility] [address] [id number] [address] [place] [address], [place] [address] November, [facility] [address] [id number] [address] [place] [address], [place] [address] November, [facility] [address] [id number] [address] [place] [address], [place] [address] November, [facility] [address] [id number] [address] [place] [address], [place] [address] November, [facility] [address] [id number] [address] [place] [address], [place] [address] November, [facility] [address] [id number] [address] [place] [address], [place] [address] November, [facility] [address] [id number] [address] [place] [address], [place] [address] November, [facility] [address] [id number] [address] [place] [address], [place] [address] Oct, [facility] [address] [id number] [address] [place] [address], [place] [address] Oct, [facility] [address] [id number] [address] [place] [address], [place] [address] Oct, [facility] [address] [id number] [address] [place] [address], [place] [address] Oct, [facility] [address] [id number] [address] [place] [address], [place] [address] Oct, [facility] [address] [id number] [address] [place] [address], [place] [address] Oct, [facility] [address] [id number] [address] [place] [address], [place] [address] Sep, [facility] [address] [id number] [address] [place] [address], [place] [address] Sep, [facility] [address] [id number] [address] [place] [address], [place] [address] Sep, [facility] [address] [id number] [address] [place] [address], [place] [address] Sep, [facility] [address] [id number] [address] [place] [address], [place] [address] Aug, [facility] [address] [id number] [address] [place] [address], [place] [address] Aug, [facility] [address] [id number] [address] [place] [address], [place] [address] Aug, [facility] [address] [id number] [address] [place] [address], [place] [address] Aug, [facility] [address] [id number] [address] [place] [address], [place] [address] Jul, [facility] [address] [id number] [address] [place] [address], [place] [address] Jul, [facility] [address] [id number] [address] [place] [address], [place] [address] Jul, [facility] [address] [id number] [address] [place] [address], [place] [address] Jul, [facility] [address] [id number] [address] [place] [address], [place] [address] 15 Jul, 2013 [facility] [address] [id number] [address] [place] [address], [place] [address] Jul, [facility] [address] [id number] [address] [place] [address], [place] [address] Jul, [facility] [address] [id number] [address] [place] [address], [place] [address] Jun, [facility] [address] [id number] [address] [place] [address], [place] [address] Jun, [facility] [address] [id number] [address] [place] [address], [place] [address] 17 Jun, 2013 [facility] [address] [id number] [address] [place] [address], [place] [address] 17 Jun, 2013 [facility] [address] [id number] [address] [place] [address], [place] [address] Jun, [facility] [address] [id number] [address] [place] [address], [place] [address] Jun, [facility] [address] [id number] [address] [place] [address], [place] [address] May, [facility] [address] [id number] [address] [place] [address], [place] [address] 07 May, 2013 [facility] [address] [id number] [address] [place] [id number] 15 Apr, 2013 [facility] [address] [id number] [address] [place] [address], [place] [address] 15 Apr, 2013 [facility] [address] [id number] [address] [place] [address], [place] [address] 10 Apr, 2013 [facility] [address] [id number] [address] [place] [address], [place] [address] 10 Apr, 2013 [facility] [address] [id number] [address] [place] [address], [place] [address] 08 Apr, 2013 [facility] [address] [id number] [address] [place] [address], [place] [address] 24 Mar, 2013 [facility] [address] [id number] [address] [place] [address], [place] [address] 19 Mar, 2013 [facility] [address] [id number] [address] [place] [address], [place] [address] 12 Mar, 2013 [facility] [address] [id number] [address] [place] [address], [place] [address] 10 Mar, 2013 [facility] [address] [id number] [address] [place] [address], [place] [address] 16 Feb, 2013 [facility] [address] [id number] [address] [place] [address], [place] [address] Feb, [facility] [address] [id number] [address] [place] [address], [place] [address] Jan, [facility] [address] [id number] [address] [place] [address], [place] [address] Jan, [facility] [address] [id number] [address] [place] [address], [place] [address] Jan, [facility] [address] [id number] [address] [place] [address], [place] [address] Jan, [facility] [address] [id number] [address] [place] [address], [place] [address] Dec, [facility] [address] [id number] [address] [place] [address], [place] [address] Dec, [facility] [address] [id number] [address] [place] [address], [place] [address] Dec, [facility] [address] [id number] [address] [place] [address], [place] [address] Dec, [facility] [address] [id number] [address] [place] [address], [place] [address] November, [facility] [address] [id number] [address] [place] [address], [place] [address] 15 Nov, 2012 [facility] [address] [id number] [address] [place] [address], [place] [address] 18 Oct, 2012 [facility] [address] [id number] [address] [place] [address], [place] [address] Sep, [facility] [address] [id number] [address] [place] [address], [place] [address] 08 Sep, 2012 [facility] [address] [id number] [address] [place] [address], [place] [address] 14 Aug, 2012 [facility] [address] [id number] [address] [place] [address], [place] [address] 13 Aug, 2012 [facility] [address] [id number] [address] [place] [address], [place] [address] 18 Jul, 2012 [facility] [address] [id number] [address] [place] [address], [place] [address] Jul, [facility] [address] [id number] [address] [place] [address], [place] [address] Jul, [facility] [address] [id number] [address] [place] [address], [place] [address] 28 Jun, 2012 [facility] [address] [id number] [address] [place] [address], [place] [address] 28 Jun, 2012 [facility] [address] [id number] [address] [place] [address], [place] [address] 15 Jun, 2012 [facility] [address] [id number] [address] [place] [address], [place] [address] 15 Jun, 2012 [facility] [address] [id number] [address] [place] [address], [place] [address] May, [facility] [address] [id number] [address] [place] [address], [place] [address] May, [facility] [address] [id number] [address] [place] [address] May, [facility] [address] [id number] [address] [place] [address], [place] [address] May, [facility] [address] [id number] [address] [place] [address] May, [facility] [address] [id number] [address] [place] [address], [place] [address] May, [facility] [address] [id number] [address] [place] [address] May, [facility] [address] [id number] [address] [place] [address], [place] [address] Apr, [facility] [address] [id number] [address] [place] [address], [place] [address] Apr, [facility] [address] [id number] [address] [place] [address] Apr, [facility] [address] [id number] [address] [place] [address] Apr, [facility] [address] [id number] [address] [place] [address] Apr, [facility] [address] [id number] [address] [place] [address] Apr, [facility] [address] [id number] [address] [place] [address] Apr, [facility] [address] [id number] [address] [place] [address] Apr, [facility] [address] [id number] [address] [place] [address] Jan, [facility] [address] [id number] [address] [place] [address] Jan, [facility] [address] [id number] [address] [place] [address] Dec, [facility] [address] [id number] [address] [place] [address], [place] [address] 16 Nov, 2011 [facility] [address] [id number] [address] [place] [address], [place] [address] 27 Oct, 2011 [facility] [address] [id number] [address] [place] [address], [place] [address] 10 Oct, 2011 [facility] [address] [id number] [address] [place] [address], [place] [address] 03 Oct, 2011 [facility] [address] [id number] [address] [place] [address], [place] [address] Oct, [facility] [address] [id number] [address] [place] [address], [place] [address] Sep, [facility] [address] [id number] [address] [place] [address], [place] [address] Sep, [facility] [address] [id number] [address] [place] [address], [place] [address] Sep, [facility] [address] [id number] [address] [place] [address], [place] [address] Jun, [facility] [address] [id number] [address] [place] [address], [place] [address] Jun, [facility] [address] [id number] [address] [place] [address], [place] [address] 22 May, 2011 [facility] [address] [id number] [address] [place] [address], [place] [address] 14 Jan, 2011 [facility] [address] [id number] [address] [place] [address], [place] [address] 19 Nov, 2010 [facility] [address] [id number] [address] [place] [address], [place] [address] 14 Oct, 2010 [facility] [address] [id number] [address] [place] [address], [place] [address] 16 Sep, 2010 [facility] [address] [id number] [address] [place] [address] [address] 30 May, 2010 [facility] [address] [id number] [address] [place] [address] Jul, [facility] [address] [id number] [address] [place] [address] Jun, [facility] [address] [id number] [address] [place] [address] Jun, [facility] [address] [id number] [address] [place] [address] Jun, [facility] [address] [id number] [address] [place] [address] Jun, [facility] [address] [id number] [address] [place] [address] May, [facility] [address] [id number] [address] [place] [address] May, [facility] [address] [id number] [address] [place] [address] Apr, [facility] [address] [id number] [address] [place] [address] Apr, [facility] [address] [id number] [address] [place] [address] Apr, IMMUNIZATIONS No Known Immunizations SOCIAL HISTORY Never Assessed REASON FOR VISIT PLAN OF CARE VITAL SIGNS Height 61 in 2013-08-17 Weight 205 lbs 2013-08-17 Temperature 98 degrees Fahrenheit 2013-08-17 Heart Rate 82 bpm 2013-08-17 Respiratory Rate 20 2013-08-17 Blood pressure systolic 110 mmHg 2013-08-17 Blood pressure diastolic 62 mmHg 2013-08-17 MEDICATIONS Unknown Medications RESULTS No Results PROCEDURES [...] right 06/1996 Surgical History multiple knee injections ([id number]) Surgical History left knee replacement 06/11 Hospitalization History Knee surgery- x 3 days 06/11
--- OUTSIDE RECORDS SUMMARY | 2019-12-16 20:24 | XMS REPORT ---
Author Author Patti Guzman Doctor Organization [facility] Address Unknown Phone Unavailable Care Team Providers Care Cst Name Role Phone Migration, Doctor Unavailable Unavailable PROBLEMS Type Condition ICD9-CM Code WSK10-OJ Code Onset Dates Condition S tatus SNOMED Code Problem ADD (attention deficit disorder) F90.0 Active [id number] Problem Drug abuse counseling and surveillance of drug abuser Z71.51 Active 261345923 Problem Insomnia G47.00 Active 892373148 Problem Joint pain M25.50 Active 34332726 Problem Edema, unspecified type R60.9 Active 709890671 Problem Episode of recurrent major d epressive disorder, unspecified depression episode severity F33.9 Active 939630952 Problem Venous insufficiency (chronic) (peripheral) I87.2 Active [id number] Problem Carpal tunnel syndrome on left G56.02 Active [id number] Problem Manic bipolar I disorder in partial remission F31. 73 Active 16417126 Problem Bipolar affective disorder, currently depressed, moderate F31.32 Active 395127377 Problem Social anxiety disorder F40.10 Active 77223310 Problem Other chronic pain G89.29 Active 8 1612396 Problem Stimulant abuse F15.10 Active 4415 68836 Problem Bipolar II disorder F31.81 Active 64195261 Problem ADD (attention deficit disorder) without hyperactivity F98.8 Active 95553599 ALLERGIES No Information ENCOUNTERS Encounter Location Date Diagnosis [facility] [address] [facility] [id number] [address] [place] [phone] Aug, [facility] [address] [facility] [id number] [address] [place] [address] Aug, Bipolar II disorder F31.81 ; Social anxiety disorder F40.10 and ADD (attention deficit disorder) F90.0 [facility] [address] [facility] [id number] [address] [place] [address] Jul, [facility] [address] [place] [id number] [address] [place] [address] Apr, [place] [address] [place] [id number] [place] [address] Apr, Bipolar II disorder F31.81 a nd Social anxiety disorder F40.10 [place] [address] [place] [id number] [place] [address] Jan, Bipolar affective disorder, currently depressed, moderate F31.32 [place] [address] [place] [id number] [place] [address] Jan, Bipolar affective disorder, currently depressed, moderate F31.32 ; Social anxiety disorder F40.10 and Morbid obesity E66.01 [place] [address] [place] [id number] [place] [address] May, Screening for lipid disorder s Z13.220 [place] [address] [address] May, Carpal tunnel syndrome on le ft G56.02 ; Social anxiety disorder F40.10 and Screening for lipid disorders Z13.220 [place] [address] [address] 11 Apr, 2018 Bipolar II disorder F31.81 ; Social anxiety disorder F40.10 ; ADD (attention deficit disorder) without hyperactivity F98.8 and BMI 45.0-49.9, adult Z68.42 [place] [address] [address] Mar, [place] [address] [place] [id number] [place] [address] Feb, BMI 45.0-49.9, adult Z68.42 ; Carpal tunnel syndrome on left G56.02 and Social anxiety disorder F40.10 [place] [address] [place] [id number] [address] [place] [address] Jan, Bipolar II disorder F31.81 ; ADD (attention deficit disorder) without hyperactivity F98.8 ; Social anxiety disorder F40.10 and Stimulant abuse F15.10 [facility] [address] [facility] [id number] [address] [place] [address] Dec, Episode of recurrent major d epressive disorder, unspecified depression episode severity F33.9 ; Other chronic pain G89.29 ; Radiculopathy, lumbar region M54.16 ; Edema of lower extremity R60.0 and BMI 45.0-49.9, adult Z68.42 [facility] [address] [facility] [id number] [address] [place] [address] Jun, [facility] [address] [facility] [id number] [address] [place] [address] Jan, Joint pain M25.50 [facility] [address] [facility] [id number] [address] [place] [address] Jan, Wellness examination Z00.00 ; Pain in right knee M25.561 ; Pain in left knee M25.562 ; Edema, unspecified type R60.9 and Drug abuse counseling and surveillance of drug abuser Z71.51 [facility] [address] [facility] [id number] [address] [place] [address] November, [facility] [address] [facility] [id number] [address] [place] [phone] Oct, [facility] [address] [place] [id number] [address] [place] [address] Oct, ADD (attention deficit disor josselin) F90.0 ; Social anxiety disorder F40.10 and Manic bipolar I disorder in partial remission F31.73 [facility] [address] [facility] [id number] [address] [place] [address] Aug, [facility] [address] [facility] [id number] [address] [place] [address] Aug, [facility] [address] [facility] [id number] [address] [place] [address] Aug, [facility] [address] [facility] [id number] [address] [place] [address] Jul, [facility] [address] [facility] [id number] [address] [place] [address] Jul, [facility] [address] [facility] [id number] [address] [place] [address] Jul, [facility] [address] [place] [id number] [place] [address] Jun, [facility] [address] [place] [id number] [place] [address] Jun, [facility] [address] [place] [id number] [place] [address] Jun, [facility] [address] [address] Jun, [facility] [address] [address] May, Joint pain M25.50 ; ADD (att ention deficit disorder) F90.0 ; Edema R60.9 and Insomnia G47.00 [facility] [address] [place] [id number] [address] [place] [phone] May, [facility] [address] [place] [id number] [address] [place] [address] May, [facility] [address] [place] [id number] [address] [place] [address] May, [facility] [address] [place] [id number] [place] [address] May, Left wrist pain M25.532 ; Si nusitis J32.9 and Drug abuse counseling and surveillance of drug abuser Z71.51 [facility] [address] [facility] [id number] [address] [place] [address] Apr, [facility] [address] [place] [id number] [address] [place] [phone] Apr, [facility] [address] [place] [id number] [place] [phone] 15 Apr, 2015 [facility] [address] [id number] [address] [place] [phone] 14 Apr, 2015 [facility] [address] [id number] [address] [place] [address] Apr, [facility] [address] [facility] [id number] [address] [place] [phone] Apr, [facility] [address] [id number] [address] [place] [id number] Apr, [facility] [address] [id number] [address] [place] [id number] 21 Mar, 2015 Unspecified venous (peripher al) insufficiency 459.81 ; Bipolar I disorder, most recent episode (or current) manic, moderate 296.42 ; Social phobia 300.23 ; Attention deficit disorder of childhood without mention of hyperactivity 314.00 ; Pain in joint, lower leg 719.46 ; Thrombosis 453.9 and Chronic pain 338.29 [facility] [address] [id number] [address] [place] [phone] 18 Mar, 2015 [facility] [address] [id number] [address] [place] [phone] 18 Mar, 2015 [facility] [address] [facility] [id number] [address] [place] [phone] 18 Mar, 2015 [facility] [address] [id number] [address] [place] [phone] 17 Mar, 2015 [facility] [address] [id number] [address] [place] [phone] 17 Mar, 2015 [facility] [address] [id number] [address] [place] [phone] 11 Mar, 2015 [facility] [address] [facility] [id number] [address] [place] [phone] 10 Mar, 2015 Manic bipolar I disorder in partial remission 296.45 ; Social phobia 300.23 and Attention deficit disorder of childhood without mention of hyperactivity 314.00 [facility] [address] [facility] [id number] [address] [place] [phone] Mar, [facility] [address] [facility] [id number] [address] [place] [phone] Feb, [facility] [address] [facility] [id number] [address] [place] [phone] Feb, Thrombosis 453.9 ; Unspecifi ed venous (peripheral) insufficiency 459.81 ; Bipolar I disorder, most recent episode (or current) manic, moderate 296.42 ; Social phobia 300.23 ; Attention deficit disorder of childhood without mention of hyperactivity 314.00 ; Pain in joint, lower leg 719.46 and Edema 782.3 [facility] [address] [facility] [id number] [address] [place] [address] Feb, [facility] [address] [facility] [id number] [address] [place] [address] Feb, Social phobia 300.23 ; Atten tion deficit disorder of childhood without mention of hyperactivity 314.00 and Bipolar I disorder, most recent episode manic, in partial remission 296.45 [facility] [address] [facility] [id number] [address] [place] [phone] Jan, [facility] [address] [facility] [id number] [address] [place] [phone] Jan, [facility] [address] [facility] [id number] [address] [place] [phone] Jan, Unspecified venous (peripher al) insufficiency 459.81 and Thrombophlebitis 451.9 [facility] [address] [facility] [id number] [address] [place] [phone] Jan, [facility] [address] [facility] [id number] [address] [place] [phone] Dec, Headache 784.0 and Back pain 724.5 [facility] [address] [facility] [id number] [address] [place] [phone] Dec, [facility] [address] [id number] [address] [place] [phone] Dec, Bipolar I disorder, most rec ent episode (or current) manic, moderate 296.42 ; Attention deficit disorder of childhood without mention of hyperactivity 314.00 and Social phobia 300.23 [facility] [address] [id number] [address] [place] [phone] November, [facility] [address] [id number] [address] [place] [phone] November, [facility] [address] [id number] [address] [place] [phone] Oct, [facility] [address] [id number] [address] [place] [phone] Oct, [facility] [address] [facility] [id number] [address] [place] [phone] Sep, [facility] [address] [id number] [address] [place] [phone] Sep, [facility] [address] [facility] [id number] [address] [place] [phone] Aug, [facility] [address] [facility] [id number] [address] [place] [phone] Aug, [facility] [address] [facility] [id number] [address] [place] [phone] Aug, [facility] [address] [id number] [address] [place] [phone] Aug, [facility] [address] [facility] [id number] [address] [place] [id number] Aug, [facility] [address] [facility] [id number] [address] [place] [phone] Aug, [facility] [address] [facility] [id number] [address] [place] [phone] Aug, [facility] [address] [id number] [address] [place] [address], [place] [address] Jul, [facility] [address] [id number] [address] [place] [address], [place] [address] Jul, [facility] [address] [id number] [address] [place] [address], [place] [address] Jun, [facility] [address] [id number] [address] [place] [address], [place] [address] Jun, [facility] [address] [id number] [address] [place] [address], [place] [address] May, [facility] [address] [id number] [address] [place] [address], [place] [address] May, [facility] [address] [id number] [address] [place] [address], [place] [address] May, [facility] [address] [id number] [address] [place] [address], [place] [address] May, [facility] [address] [id number] [address] [place] [address], [place] [address] May, [facility] [address] [id number] [address] [place] [phone] May, [facility] [address] [id number] [address] [place] [address], [place] [address] Apr, [facility] [address] [id number] [address] [place] [phone] Apr, [facility] [address] [id number] [address] [place] [address], [place] [address] Apr, [facility] [address] [id number] [address] [place] [address], [place] [address] Apr, [facility] [address] [id number] [address] [place] [address], [place] [address] Mar, [facility] [address] [id number] [address] [place] [id number] 22 Sep, 2013 [facility] [address] [id number] [address] [place] [address], [place] [address] 19 Sep, 2013 [facility] [address] [id number] [address] [place] [address], [place] [address] 16 Sep, 2013 [facility] [address] [id number] [address] [place] [address], [place] [address] 16 Sep, 2013 [facility] [address] [id number] [address] [place] [address], [place] [address] 15 Sep, 2013 [facility] [address] [id number] [address] [place] [address], [place] [address] 11 Mar, 2013 [facility] [address] [id number] [address] [place] [address], [place] [address] 11 Mar, 2013 [facility] [address] [id number] [address] [place] [address], [place] [address] 11 Mar, 2013 [facility] [address] [id number] [address] [place] [address], [place] [address] 11 Mar, 2013 [facility] [address] [id number] [address] [place] [address], [place] [address] 10 Mar, 2013 [facility] [address] [id number] [address] [place] [address], [place] [address] 09 Mar, 2013 [facility] [address] [id number] [address] [place] [address], [place] [address] 09 Mar, 2013 [facility] [address] [id number] [address] [place] [address], [place] [address] Mar, 2013 [facility] [address] [id number] [address] [place] [address], [place] [address] Mar, 2013 [facility] [address] [id number] [address] [place] [address], [place] [address] Feb, [facility] [address] [id number] [address] [place] [address], [place] [address] Feb, [facility] [address] [id number] [facility] [place] [address] Feb, [facility] [address] [id number] [facility] [place] [address] Feb, [facility] [address] [id number] [facility] [place] [address] Feb, [facility] [address] [id number] [address] [place] [address], [place] [address] Feb, [facility] [address] [id number] [address] [place] [address], [place] [address] Feb, [facility] [address] [id number] [address] [place] [address], [place] [address] Feb, [facility] [address] [id number] [address] [place] [address], [place] [address] Feb, [facility] [address] [id number] [address] [place] [address], [place] [address] Feb, [facility] [address] [id number] [address] [place] [address], [place] [address] Feb, [facility] [address] [id number] [address] [place] [address], [place] [address] Feb, [facility] [address] [id number] [address] [place] [address], [place] [address] Feb, [facility] [address] [id number] [address] [place] [address], [place] [address] Feb, [facility] [address] [id number] [address] [place] [address], [place] [address] Jan, [facility] [address] [id number] [address] [place] [address], [place] [address] Jan, [facility] [address] [id number] [address] [place] [address], [place] [address] Jan, [facility] [address] [id number] [address] [place] [address], [place] [address] Jan, [facility] [address] [id number] [facility] [place] [address] Jan, [facility] [address] [id number] [address] [place] [address], [place] [address] Jan, [facility] [address] [id number] [address] [place] [address], [place] [address] Jan, [facility] [address] [id number] [address] [place] [address], [place] [address] Dec, [facility] [address] [id number] [address] [place] [address], [place] [address] Dec, [facility] [address] [id number] [address] [place] [address], [place] [address] Dec, [facility] [address] [id number] [address] [place] [address], [place] [address] Dec, [facility] [address] [id number] [address] [place] [address], [place] [address] Dec, [facility] [address] [id number] [address] [place] [address], [place] [address] Dec, [facility] [address] [id number] [address] [place] [address], [place] [address] Dec, [facility] [address] [id number] [address] [place] [address], [place] [address] Dec, [facility] [address] [id number] [address] [place] [address], [place] [address] Dec, [facility] [address] [id number] [address] [place] [address], [place] [address] November, [facility] [address] [id number] [address] [place] [address], [place] [address] November, [facility] [address] [id number] [address] [place] [address], [place] [address] November, [facility] [address] [id number] [address] [place] [address], [place] [address] November, [facility] [address] [id number] [address] [place] [address], [place] [address] November, [facility] [address] [id number] [address] [place] [address], [place] [address] November, [facility] [address] [id number] [address] [place] [address], [place] [address] November, [facility] [address] [id number] [address] [place] [address], [place] [address] November, [facility] [address] [id number] [address] [place] [address], [place] [address] November, [facility] [address] [id number] [address] [place] [address], [place] [address] November, [facility] [address] [id number] [address] [place] [address], [place] [address] November, [facility] [address] [id number] [address] [place] [address], [place] [address] November, [facility] [address] [id number] [address] [place] [address], [place] [address] November, [facility] [address] [id number] [address] [place] [address], [place] [address] November, [facility] [address] [id number] [address] [place] [address], [place] [address] Oct, [facility] [address] [id number] [address] [place] [address], [place] [address] Oct, [facility] [address] [id number] [address] [place] [address], [place] [address] Oct, [facility] [address] [id number] [address] [place] [address], [place] [address] Oct, [facility] [address] [id number] [address] [place] [address], [place] [address] Oct, [facility] [address] [id number] [address] [place] [address], [place] [address] Oct, [facility] [address] [id number] [address] [place] [address], [place] [address] Sep, [facility] [address] [id number] [address] [place] [address], [place] [address] Sep, [facility] [address] [id number] [address] [place] [address], [place] [address] Sep, [facility] [address] [id number] [address] [place] [address], [place] [address] Sep, [facility] [address] [id number] [address] [place] [address], [place] [address] Aug, [facility] [address] [id number] [address] [place] [address], [place] [address] Aug, [facility] [address] [id number] [address] [place] [address], [place] [address] Aug, [facility] [address] [id number] [address] [place] [address], [place] [address] Aug, [facility] [address] [id number] [address] [place] [address], [place] [address] Jul, [facility] [address] [id number] [address] [place] [address], [place] [address] Jul, [facility] [address] [id number] [address] [place] [address], [place] [address] Jul, [facility] [address] [id number] [address] [place] [address], [place] [address] Jul, [facility] [address] [id number] [address] [place] [address], [place] [address] Jul, [facility] [address] [id number] [address] [place] [address], [place] [address] Jul, [facility] [address] [id number] [address] [place] [address] 14 Jul, 2013 [facility] [address] [id number] [address] [place] [address], [place] [address] 27 Jun, 2013 [facility] [address] [id number] [address] [place] [address] 27 Jun, 2013 [facility] [address] [id number] [address] [place], [place] [address], [place] [address] 17 Jun, 2013 [facility] [address] [id number] [address] [place] [address], [place] [address] 17 Jun, 2013 [facility] [address] [id number] [address] [place] [address], [place] [address] 13 Jun, 2013 [facility] [address] [id number] [address] [place] [address], [place] [address] Jun, [facility] [address] [id number] [address] [place] [id number] 07 May, 2013 [facility] [address] [id number] [address] [place] [address], [place] [address] 07 May, 2013 [facility] [address] [id number] [address] [place] [address], [place] [address] 15 Apr, 2013 [facility] [address] [id number] [address] [place] [id number] 15 Apr, 2013 [facility] [address] [id number] [address] [place] [address], [place] [address] 10 Apr, 2013 [facility] [address] [id number] [address] [place] [id number] 10 Apr, 2013 [facility] [address] [id number] [address] [place] [id number] 08 Apr, 2013 [facility] [address] [id number] [address] [place] [id number] 24 Mar, 2013 [facility] [address] [id number] [address] [place] [id number] 19 Mar, 2013 [facility] [address] [id number] [address] [place] [address], [place] [address] Mar, [facility] [address] [id number] [address] [place] [address], [place] [address] Mar, [facility] [address] [id number] [address] [place] [address], [place] [address] Feb, [facility] [address] [id number] [address] [place] [address], [place] [address] Feb, [facility] [address] [id number] [address] [place] [address], [place] [address] Jan, [facility] [address] [id number] [address] [place] [address], [place] [address] Jan, [facility] [address] [id number] [address] [place] [address], [place] [address] Jan, [facility] [address] [id number] [address] [place] [address], [place] [address] Jan, [facility] [address] [id number] [address] [place] [address], [place] [address] Dec, [facility] [address] [id number] [address] [place] [address], [place] [address] Dec, [facility] [address] [id number] [address] [place] [address], [place] [address] Dec, [facility] [address] [id number] [address] [place] [address], [place] [address] Dec, [facility] [address] [id number] [address] [place] [address], [place] [address] November, [facility] [address] [id number] [address] [place] [address], [place] [address] November, [facility] [address] [id number] [address] [place] [address], [place] [address] Oct, [facility] [address] [id number] [address] [place] [address], [place] [address] 20 Sep, 2012 [facility] [address] [id number] [address] [place] [address], [place] [address] 08 Sep, 2012 [facility] [address] [id number] [address] [place] [address], [place] [address] 14 Aug, 2012 [facility] [address] [id number] [address] [place] [address], [place] [address] 13 Aug, 2012 [facility] [address] [id number] [address] [place] [address], [place] [address] 18 Jul, 2012 [facility] [address] [id number] [address] [place] [address], [place] [address] Jul, [facility] [address] [id number] [address] [place] [address], [place] [address] Jul, [facility] [address] [id number] [address] [place] [address], [place] [address] Jun, [facility] [address] [id number] [address] [place] [address], [place] [address] 28 Jun, 2012 [facility] [address] [id number] [address] [place] [address], [place] [address] 15 Jun, 2012 [facility] [address] [id number] [address] [place] [address], [place] [address] 15 Jun, 2012 [facility] [address] [id number] [address] [place] [address], [place] [address] 20 May, 2012 [facility] [address] [id number] [address] [place] [address], [place] [address] 20 May, 2012 [facility] [address] [id number] [address] [place] [address], [place] [address] 19 May, 2012 [facility] [address] [id number] [address] [place] [address], [place] [address] 14 May, 2012 [facility] [address] [id number] [address] [place] [address], [place] [address] 14 May, 2012 [facility] [address] [id number] [address] [place] [address], [place] [address] May, [facility] [address] [id number] [address] [place] [address], [place] [address] May, [facility] [address] [id number] [address] [place] [address], [place] [address] Apr, [facility] [address] [id number] [address] [place] [address], [place] [address] Apr, [facility] [address] [id number] [address] [place] [address], [place] [address] Apr, [facility] [address] [id number] [address] [place] [address], [place] [address] Apr, [facility] [address] [id number] [address] [place] [address], [place] [address] Apr, [facility] [address] [id number] [address] [place] [address], [place] [address] Apr, [facility] [address] [id number] [address] [place] [address], [place] [address] Apr, [facility] [address] [id number] [address] [place] [address], [place] [address] Apr, [facility] [address] [id number] [address] [place] [address], [place] [address] Jan, [facility] [address] [id number] [address] [place] [address], [place] [address] Jan, [facility] [address] [id number] [address] [place] [address], [place] [address] Dec, [facility] [address] [id number] [address] [place] [address], [place] [address] November, [facility] [address] [id number] [address] [place] [address], [place] [address] Oct, [facility] [address] [id number] [address] [place] [address], [place] [address] Oct, [facility] [address] [id number] [address] [place] [address], [place] [address] 03 Oct, 2011 [facility] [address] [id number] [address] [place] [address], [place] [address] 02 Oct, 2011 [facility] [address] [id number] [address] [place] [address], [place] [address] Sep, [facility] [address] [id number] [address] [place] [address], [place] [address] Sep, [facility] [address] [id number] [address] [place] [address], [place] [address] Sep, [facility] [address] [id number] [address] [place] [address], [place] [address] Jun, [facility] [address] [id number] [address] [place] [address], [place] [address] Jun, [facility] [address] [id number] [address] [place] [address], [place] [address] 22 May, 2011 [facility] [address] [id number] [address] [place] [address], [place] [address] 14 Jan, 2011 [facility] [address] [id number] [address] [place] [address], [place] [address] November, [facility] [address] [id number] [address] [place] [address], [place] [address] 14 Oct, 2010 [facility] [address] [id number] [address] [place] [address], [place] [address] 16 Sep, 2010 [facility] [address] [id number] [address] [place] [address], [place] [address] 30 May, 2010 [facility] [address] [id number] [address] [place] [address], [place] [address] Jul, [facility] [address] [id number] [address] [place] [address], [place] [address] 23 Jun, 2009 [facility] [address] [id number] [address] [place] [address] Jun, [facility] [address] [id number] [address] [place] [address] Jun, [facility] [address] [id number] [address] [place] [address] Jun, [facility] [address] [id number] [address] [place] [address] May, [facility] [address] [id number] [address] [place] [address] May, [facility] [address] [id number] [address] [place] [address] Apr, [facility] [address] [id number] [address] [place] [address] Apr, [facility] [address] [id number] [address] [place] [address] Apr, IMMUNIZATIONS No Known Immunizations SOCIAL HISTORY [...] right 06/1996 Surgical History multiple knee injections ([id number]) Surgical History left knee replacement 06/11 Hospitalization History Knee surgery- x 3 days 06/11
--- OUTSIDE RECORDS SUMMARY | 2019-12-16 20:24 | XMS REPORT ---
Author Author Patti Guzman Doctor Organization [facility] Address Unknown Phone Unavailable Care Team Providers Care General Neurologist Name Role Phone Migration, Doctor Unavailable Unavailable PROBLEMS Type Condition ICD9-CM Code ZUU19-SV Code Onset Dates Condition S tatus SNOMED Code Problem ADD (attention deficit disorder) F90.0 Active 419161183 Problem Drug abuse counseling and surveillance of drug abuser Z71.51 Active 465871240 Problem Insomnia G47.00 Active 698912254 Problem Joint pain M25.50 Active 76781027 Problem Edema, unspecified type R60.9 Active 282959681 Problem Episode of recurrent major d epressive disorder, unspecified depression episode severity F33.9 Active 361192021 Problem Venous insufficiency (chronic) (peripheral) I87.2 Active [id number] Problem Carpal tunnel syndrome on left G56.02 Active 192764228555277 Problem Manic bipolar I disorder in partial remission F31. 73 Active 34432007 Problem Bipolar affective disorder, currently depressed, moderate F31.32 Active 649049755 Problem Social anxiety disorder F40.10 Active 18272714 Problem Other chronic pain G89.29 Active 8 4537541 Problem Stimulant abuse F15.10 Active 4415 61594 Problem Bipolar II disorder F31.81 Active 45360885 Problem ADD (attention deficit disorder) without hyperactivity F98.8 Active 44345852 ALLERGIES No Information ENCOUNTERS Encounter Location Date Diagnosis [facility] [id number] [place] [address] Oct, [facility] [address] [address] Sep, [facility] [address] [address] Aug, [facility] [address] [facility] [place] [address] Aug, Bipolar II disorder F31.81 ; Social anxi ety disorder F40.10 and ADD (attention deficit disorder) F90.0 [place] [address] [address] Jul, [place] [address] [address] Apr, [place] [address] [address] Apr, Bipolar II disorder F31.81 and Social an xiety disorder F40.10 [place] [address] [address] Jan, Bipolar affective disorder, currently de pressed, moderate F31.[address] [address] Jan, Bipolar affective disorder, currently de pressed, moderate F31.32 ; Social anxiety disorder F40.10 and Morbid obesity E66.01 [place] [address] [address] May, Screening for lipid disorders Z13.220 [place] [address] [address] May, Carpal tunnel syndrome on left G56.02 ; Social anxiety disorder F40.10 and Screening for lipid disorders Z13.220 [place] [address] [address] 11 Apr, 2018 Bipolar II disorder F31.81 ; Social anxi ety disorder F40.10 ; ADD (attention deficit disorder) without hyperactivity F98.8 and BMI 45.0-49.9, adult Z68.42 [place] [address] [address] Mar, [address] [address] Feb, BMI 45.0-49.9, adult Z68.42 ; Carpal sylvia martha syndrome on left G56.02 and Social anxiety disorder F40.[address] [address] Jan, Bipolar II disorder F31.81 ; ADD (attent ion deficit disorder) without hyperactivity F98.8 ; Social anxiety disorder F40.10 and Stimulant abuse F15.10 [place] [address] [address] Dec, Episode of recurrent major depressive di sorder, unspecified depression episode severity F33.9 ; Other chronic pain G89.29 ; Radiculopathy, lumbar region M54.16 ; Edema of lower extremity R60.0 and BMI 45.0-49.9, adult Z68.42 [place] [address] [address] Jun, [place] [address] [address] Jan, Joint pain M25.50 [place] [address] [address] Jan, Wellness examination Z00.00 ; Pain in ri ght knee M25.561 ; Pain in left knee M25.562 ; Edema, unspecified type R60.9 and Drug abuse counseling and surveillance of drug abuser Z71.51 [place] [address] [address] November, [place] [address] [address] Oct, [place] [address] [address] Oct, ADD (attention deficit disorder) F90.0 ; Social anxiety disorder F40.10 and Manic bipolar I disorder in partial remission F31.73 [place] [address] [address] Aug, [place] [address] [address] Aug, [place] [address] [address] Aug, [facility] [id number] [place] [address] Jul, [facility] [address] [address] Jul, [facility] [address] [address] Jul, [facility] [address] [address] Jun, [facility] [address] [address] Jun, [facility] [address] [address] Jun, [facility] [address] [address] Jun, [facility] [address] [address] May, Joint pain M25.50 ; ADD (attention defic it disorder) F90.0 ; Edema R60.9 and Insomnia G47.00 [facility] [address] [address] May, [facility] [address] [address] May, [facility] [address] [address] May, [facility] [address] [address] May, Left wrist pain M25.532 ; Sinusitis J32. 9 and Drug abuse counseling and surveillance of drug abuser Z71.51 [facility] [address] [address] Apr, [facility] [address] [address] Apr, [facility] [address] [address] Apr, [facility] [address] [address] Apr, [facility] [address] [address] Apr, [facility] [address] [address] Apr, [facility] [address] [address] Apr, [facility] [address] [address] Mar, Unspecified venous (peripheral) insuffic iency 459.81 ; Bipolar I disorder, most recent episode (or current) manic, moderate 296.42 ; Social phobia 300.23 ; Attention deficit disorder of childhood without mention of hyperactivity 314.00 ; Pain in joint, lower leg 719.46 ; Thrombosis 453.9 and Chronic pain 338.29 [facility] [address] [address] 18 Mar, 2015 [facility] [address] [address] 18 Mar, 2015 [facility] [address] [address] 18 Mar, 2015 [facility] [address] [address] 17 Mar, 2015 [facility] [address] [address] 17 Mar, 2015 [facility] [address] [address] 11 Mar, 2015 [facility] [address] [address] 10 Mar, 2015 Manic bipolar I disorder in partial josephine ssion 296.45 ; Social phobia 300.23 and Attention deficit disorder of childhood without mention of hyperactivity 314.00 [facility] [address] [address] Mar, [facility] [address] [address] Feb, [facility] [address] [address] Feb, Thrombosis 453.9 ; Unspecified venous (p eripheral) insufficiency 459.81 ; Bipolar I disorder, most recent episode (or current) manic, moderate 296.42 ; Social phobia 300.23 ; Attention deficit disorder of childhood without mention of hyperactivity 314.00 ; Pain in joint, lower leg 719.46 and Edema 782.3 [place] [address] [address] Feb, [facility] [address] [address] Feb, Social phobia 300.23 ; Attention deficit disorder of childhood without mention of hyperactivity 314.00 and Bipolar I disorder, most recent episode manic, in partial remission 296.45 [facility] [address] [address] Jan, [facility] [address] [address] Jan, [facility] [address] [address] Jan, Unspecified venous (peripheral) insuffic iency 459.81 and Thrombophlebitis 451.9 [facility] [address] [address] Jan, [facility] [address] [address] Dec, Headache 784.0 and Back pain 724.5 [facility] [address] [address] Dec, [facility] [address] [address] Dec, Bipolar I disorder, most recent episode (or current) manic, moderate 296.42 ; Attention deficit disorder of childhood without mention of hyperactivity 314.00 and Social phobia 300.23 [facility] [id number] [place] [address] November, [facility] [id number] [place] [address] November, [facility] [id number] [place] [address] Oct, [facility] [address] [address] Oct, [facility] [address] [address] Sep, [facility] [id number] [place] [address] Sep, [facility] [address] [address] Aug, [facility] [id number] [place] [address] Aug, [facility] [address] [address] Aug, [facility] [id number] [place] [address] Aug, [facility] [id number] [place] [address] Aug, [facility] [id number] [place] [address] Aug, [facility] [id number] [place] [address] Aug, [facility] [id number] [place] [address] Jul, [facility] [id number] [place] [address] Jul, [facility] [address] [place] [address] Jun, [facility] [place] [facility] [address] [id number] [place] [address] Jun, [facility] [place] [facility] [address] [id number] [place] [address] May, [facility] [place] [facility] [address] [id number] [place] [address] May, [facility] [place] [facility] [address] [id number] [place] [address] May, [facility] [place] [facility] [address] [id number] [place] [address] May, [facility] [place] [facility] [address] [id number] [place] [address] May, [facility] [place] [facility] [address] [id number] [place] [address] May, [facility] [place] [facility] [address] [id number] [place] [address] Apr, [facility] [place] [facility] [address] [id number] [place] [address] Apr, [facility] [place] [facility] [address] [id number] [place] [address] Apr, [facility] [place] [facility] [address] [id number] [place] [address] Apr, [facility] [place] [facility] [address] [id number] [place] [address] Mar, [facility] [place] [facility] [address] [id number] [place] [address] 22 Mar, 2014 [facility] [place] [facility] [address] [id number] [place] [address] 19 Mar, 2014 [facility] [place] [facility] [address] [id number] [place] [address] 16 Mar, 2014 [facility] [place] [facility] [address] [id number] [place] [address] 16 Mar, 2013 [facility] [place] [facility] [address] [id number] [place] [address] 15 Mar, 2013 [facility] [place] [facility] [address] [id number] [place] [address] 11 Mar, 2013 [facility] [place] [facility] [address] [facility] [id number] [place] [address] 11 Mar, 2013 [facility] [place] [facility] [address] [id number] [place] [address] 11 Mar, 2013 [facility] [place] [facility] [address] [facility] [id number] [place] [address] 11 Mar, 2013 [facility] [place] [facility] [address] [id number] [place] [address] 10 Mar, 2013 [facility] [place] [facility] [address] [id number] [place] [address] 09 Mar, 2013 [facility] [place] [facility] [address] [id number] [place] [address] 09 Mar, 2013 [facility] [place] [facility] [address] [id number] [place] [address] Mar, 2013 [facility] [place] [facility] [address] [id number] [place] [address] Mar, 2013 [facility] [place] [facility] [address] [id number] [place] [address] 29 Feb, 2014 [facility] [place] [facility] [address] [id number] [place] [address] Feb, [facility] [place] [facility] [address] [id number] [place] [address] Feb, [facility] [place] [facility] [address] [facility] [id number] [place] [address] Feb, [facility] [place] [facility] [address] [id number] [place] [address] Feb, [facility] [place] [facility] [address] [id number] [place] [address] Feb, [facility] [place] [facility] [address] [id number] [place] [address] Feb, 2013 [facility] [place] [facility] [address] [id number] [facility] [place] [address] Feb, 2013 [facility] [place] [facility] [address] [facility] [id number] [facility] [place] [address] Feb, [facility] [place] [facility] [address] [facility] [id number] [facility] [place] [address] Feb, 2013 [facility] [place] [facility] [address] [facility] [id number] [facility] [place] [address] Feb, 2013 [facility] [place] [facility] [address] [facility] [id number] [facility] [place] [address] Feb, 2013 [facility] [place] [facility] [address] [facility] [id number] [place] [address] Feb, [facility] [place] [facility] [address] [id number] [place] [address] Feb, [facility] [place] [facility] [address] [id number] [facility] [place] [address] Jan, 2013 [facility] [place] [facility] [address] [facility] [id number] [place] [address] Jan, 2013 [facility] [place] [facility] [address] [id number] [place] [address] Jan, [facility] [place] [facility] [address] [id number] [place] [address] Jan, 2013 [facility] [place] [facility] [address] [id number] [place] [address] Jan, 2013 [facility] [place] [facility] [address] [facility] [id number] [place] [address] Jan, [facility] [place] [facility] [address] [facility] [id number] [place] [address] Jan, 2013 [facility] [place] [facility] [address] [facility] [id number] [place] [address] Dec, [facility] [place] [facility] [address] [id number] [place] [address] Dec, [facility] [place] [facility] [address] [facility] [id number] [place] [address] Dec, [facility] [place] [facility] [address] [id number] [place] [address] Dec, [facility] [place] [facility] [address] [facility] [id number] [place] [address] Dec, [facility] [place] [facility] [address] [id number] [place] [address] Dec, [facility] [place] [facility] [address] [facility] [id number] [place] [address] Dec, [facility] [place] [facility] [address] [id number] [place] [address] Dec, [facility] [place] [facility] [address] [id number] [place] [address] Dec, [facility] [place] [facility] [address] [id number] [place] [address] November, [facility] [place] [facility] [address] [id number] [place] [address] November, [facility] [place] [facility] [address] [id number] [place] [address] November, [facility] [place] [facility] [address] [id number] [place] [address] November, [facility] [place] [facility] [address] [id number] [place] [address] November, [facility] [place] [facility] [address] [id number] [place] [address] November, [facility] [place] [facility] [address] [id number] [place] [address] November, [facility] [place] [facility] [address] [id number] [place] [address] November, [facility] [place] [facility] [address] [id number] [place] [address] November, [facility] [place] [facility] [address] [id number] [place] [address] November, [facility] [place] [facility] [address] [id number] [place] [address] November, [facility] [place] [facility] [address] [id number] [place] [address] November, [facility] [place] [facility] [address] [id number] [place] [address] November, [facility] [place] [facility] [address] [id number] [place] [address] November, [facility] [place] [facility] [address] [id number] [place] [address] Oct, [facility] [place] [facility] [address] [id number] [place] [address] Oct, [facility] [place] [facility] [address] [id number] [place] [address] Oct, [facility] [place] [facility] [address] [id number] [place] [address] Oct, [facility] [place] [facility] [address] [id number] [place] [address] Oct, [facility] [place] [facility] [address] [id number] [place] [address] Oct, [facility] [place] [facility] [address] [id number] [place] [address] Sep, [facility] [place] [facility] [address] [id number] [place] [address] Sep, [facility] [place] [facility] [address] [id number] [place] [address] Sep, [facility] [place] [facility] [address] [id number] [place] [address] Sep, [facility] [place] [facility] [address] [id number] [place] [address] Aug, [facility] [place] [facility] [address] [id number] [place] [address] Aug, [facility] [place] [facility] [address] [id number] [place] [address] Aug, [facility] [place] [facility] [address] [id number] [place] [address] Aug, [facility] [place] [facility] [address] [id number] [place] [address] Jul, [facility] [place] [facility] [address] [id number] [place] [address] Jul, [facility] [place] [facility] [address] [id number] [place] [address] Jul, [facility] [place] [facility] [address] [id number] [place] [address] Jul, [facility] [place] [facility] [address] [id number] [place] [address] Jul, [facility] [place] [facility] [address] [id number] [place] [address] Jul, [facility] [place] [facility] [address] [id number] [place] [address] Jul, [facility] [place] [facility] [address] [id number] [place] [address] Jun, [facility] [place] [facility] [address] [id number] [place] [address] Jun, [facility] [place] [facility] [address] [id number] [place] [address] Jun, [facility] [place] [facility] [address] [id number] [place] [address] Jun, [facility] [place] [facility] [address] [id number] [place] [address] Jun, [facility] [place] [facility] [address] [id number] [place] [address] Jun, [facility] [place] [facility] [address] [id number] [place] [address] May, [facility] [place] [facility] [address] [id number] [place] [address] May, [facility] [place] [facility] [address] [id number] [place] [address] 15 Apr, 2013 [facility] [place] [facility] [address] [facility] [id number] [place] [address] 15 Apr, 2013 [facility] [place] [facility] [address] [facility] [id number] [place] [address] 10 Apr, 2013 [facility] [place] [facility] [address] [id number] [place] [address] 10 Apr, 2013 [facility] [place] [facility] [address] [facility] [id number] [place] [address] 08 Apr, 2013 [facility] [place] [facility] [address] [facility] [id number] [place] [address] 24 Mar, 2013 [facility] [place] [facility] [address] [id number] [place] [address] 19 Mar, 2013 [facility] [place] [facility] [address] [id number] [place] [address] Mar, [facility] [place] [facility] [address] [id number] [place] [address] Mar, [facility] [address] [id number] [place] [address] Feb, [facility] [address] [id number] [place] [address] Feb, [facility] [address] [id number] [place] [address] Jan, [facility] [address] [id number] [place] [address] Jan, [facility] [address] [facility] [id number] [place] [address] Jan, [facility] [address] [id number] [place] [address] Jan, [facility] [address] [id number] [place] [address] Dec, [facility] [address] [id number] [place] [address] Dec, [facility] [address] [facility] [id number] [place] [address] 07 Dec, 2012 [facility] [address] [id number] [place] [address] 06 Dec, 2012 [facility] [address] [id number] [place] [address] 16 Nov, 2012 [facility] [address] [id number] [place] [address] November, [facility] [address] [id number] [place] [address] Oct, [facility] [address] [id number] [place] [address] Sep, [facility] [address] [id number] [place] [address] 08 Sep, 2012 [facility] [id number] [place] [address] 14 Aug, 2012 [facility] [address] [id number] [place] [address] 13 Aug, 2012 [facility] [address] [id number] [place] [address] Jul, [facility] [address] [id number] [place] [address] Jul, [facility] [address] [id number] [place] [address] Jul, [facility] [address] [id number] [place] [address] Jun, [facility] [address] [id number] [place] [address] Jun, [facility] [address] [id number] [place] [address] Jun, [facility] [address] [id number] [place] [address] Jun, [facility] [address] [id number] [place] [address] May, [facility] [address] [id number] [place] [address] May, [facility] [address] [id number] [place] [address] May, [facility] [address] [id number] [place] [address] May, [facility] [address] [id number] [place] [address] May, [facility] [address] [id number] [place] [address] May, [facility] [address] [id number] [place] [address] May, [facility] [address] [id number] [place] [address] 15 Apr, 2012 [facility] [address] [id number] [place] [address] Apr, [facility] [address] [id number] [place] [address] Apr, [facility] [address] [id number] [place] [address] Apr, [facility] [address] [id number] [place] [address] Apr, [facility] [address] [id number] [place] [address] Apr, [facility] [address] [id number] [place] [address] Apr, [facility] [address] [id number] [place] [address] Apr, [facility] [address] [id number] [place] [address] Jan, [facility] [address] [id number] [place] [address] Jan, [facility] [address] [id number] [place] [address] 06 Dec, 2011 [facility] [address] [id number] [place] [address] November, [facility] [address] [id number] [place] [address] 27 Oct, 2011 [facility] [address] [id number] [place] [address] Oct, [facility] [address] [id number] [place] [address] Oct, [facility] [address] [facility] [id number] [place] [address] Oct, [facility] [address] [id number] [place] [address] Sep, [facility] [address] [id number] [place] [address] Sep, [facility] [address] [id number] [place] [address] Sep, [facility] [address] [facility] [id number] [place] [address] Jun, [facility] [address] [id number] [place] [address] Jun, [facility] [address] [id number] [place] [address] May, [facility] [address] [facility] [id number] [place] [address] 14 Jan, 2011 [facility] [id number] [place] [address] November, [facility] [address] [id number] [place] [address] 14 Oct, 2010 [facility] [address] [id number] [place] [address] 16 Sep, 2010 [facility] [address] [id number] [place] [address] May, [facility] [address] [id number] [place] [address] Jul, [facility] [address] [id number] [place] [address] Jun, [facility] [address] [id number] [place] [address] Jun, [facility] [id number] [place] [address] Jun, [facility] [address] [id number] [place] [address] Jun, [facility] [id number] [place] [address] May, [facility] [address] [id number] [place] [address] May, [facility] [id number] [place] [address] Apr, [facility] [address] [id number] [place] [address] Apr, [facility] [id number] [place] [address] Apr, IMMUNIZATIONS No Known Immunizations SOCIAL HISTORY [...] right 06/1996 Surgical History multiple knee injections ([id number]) Surgical History left knee replacement 06/11 Hospitalization History Knee surgery- x 3 days 06/11
--- OUTSIDE RECORDS SUMMARY | 2019-12-16 20:25 | XMS REPORT ---
Author Author Patti Guzman Doctor Organization [facility] Address Unknown Phone Unavailable Care Team Providers Care Dietitian Helper Name Role Phone Migration, Doctor Unavailable Unavailable PROBLEMS Type Condition ICD9-CM Code [id number] Code Onset Dates Condition S tatus SNOMED Code Problem ADD (attention deficit disorder) F90.0 Active 311892957 Problem Drug abuse counseling and surveillance of drug abuser Z71.51 Active 264276341 Problem Insomnia G47.00 Active 050027436 Problem Joint pain M25.50 Active 40068164 Problem Edema, unspecified type R60.9 Active 299080272 Problem Episode of recurrent major d epressive disorder, unspecified depression episode severity F33.9 Active 820612418 Problem Venous insufficiency (chronic) (peripheral) I87.2 Active [id number] Problem Carpal tunnel syndrome on left G56.02 Active 199764732624488 Problem Manic bipolar I disorder in partial remission F31. 73 Active 45127928 Problem Bipolar affective disorder, currently depressed, moderate F31.32 Active 315112185 Problem Social anxiety disorder F40.10 Active 54140976 Problem Other chronic pain G89.29 Active 8 8312313 Problem Stimulant abuse F15.10 Active 4415 99352 Problem Bipolar II disorder F31.81 Active 59217725 Problem ADD (attention deficit disorder) without hyperactivity F98.8 Active 34019375 ALLERGIES No Information ENCOUNTERS Encounter Location Date Diagnosis [facility] [id number] [place] [address] Oct, [facility] [address] [address] Sep, [facility] [address] [address] Aug, [facility] [address] [facility] [place] [address] Aug, Bipolar II disorder F31.81 ; Social anxi ety disorder F40.10 and ADD (attention deficit disorder) F90.0 [place] [address] [address] Jul, [place] [address] [address] Apr, [place] [address] [address] Apr, Bipolar II disorder F31.81 and Social an xiety disorder F40.10 [place] [address] [address] Jan, Bipolar affective disorder, currently de pressed, moderate F31.[address] [address] Jan, Bipolar affective disorder, currently de pressed, moderate F31.32 ; Social anxiety disorder F40.10 and Morbid obesity E66.01 [place] [address] [address] May, Screening for lipid disorders Z13.220 [place] [address] [address] May, Carpal tunnel syndrome on left G56.02 ; Social anxiety disorder F40.10 and Screening for lipid disorders Z13.220 [place] [address] [address] 11 Apr, 2018 Bipolar II disorder F31.81 ; Social anxi ety disorder F40.10 ; ADD (attention deficit disorder) without hyperactivity F98.8 and BMI 45.0-49.9, adult Z68.42 [place] [address] [address] Mar, [address] [address] Feb, BMI 45.0-49.9, adult Z68.42 ; Carpal sylvia martha syndrome on left G56.02 and Social anxiety disorder F40.[address] [address] Jan, Bipolar II disorder F31.81 ; ADD (attent ion deficit disorder) without hyperactivity F98.8 ; Social anxiety disorder F40.10 and Stimulant abuse F15.10 [place] [address] [address] Dec, Episode of recurrent major depressive di sorder, unspecified depression episode severity F33.9 ; Other chronic pain G89.29 ; Radiculopathy, lumbar region M54.16 ; Edema of lower extremity R60.0 and BMI 45.0-49.9, adult Z68.42 [place] [address] [address] Jun, [place] [address] [address] Jan, Joint pain M25.50 [place] [address] [address] Jan, Wellness examination Z00.00 ; Pain in ri ght knee M25.561 ; Pain in left knee M25.562 ; Edema, unspecified type R60.9 and Drug abuse counseling and surveillance of drug abuser Z71.51 [place] [address] [address] November, [place] [address] [address] Oct, [place] [address] [address] Oct, ADD (attention deficit disorder) F90.0 ; Social anxiety disorder F40.10 and Manic bipolar I disorder in partial remission F31.73 [place] [address] [address] Aug, [place] [address] [address] Aug, [place] [address] [address] Aug, [facility] [id number] [place] [address] Jul, [facility] [address] [address] Jul, [facility] [address] [address] Jul, [facility] [address] [address] Jun, [facility] [address] [address] Jun, [facility] [address] [address] Jun, [facility] [address] [address] Jun, [facility] [address] [address] May, Joint pain M25.50 ; ADD (attention defic it disorder) F90.0 ; Edema R60.9 and Insomnia G47.00 [facility] [address] [address] May, [facility] [address] [address] May, [facility] [address] [address] May, [facility] [address] [address] May, Left wrist pain M25.532 ; Sinusitis J32. 9 and Drug abuse counseling and surveillance of drug abuser Z71.51 [facility] [address] [address] Apr, [facility] [address] [address] Apr, [facility] [address] [address] Apr, [facility] [address] [address] Apr, [facility] [address] [address] Apr, [facility] [address] [address] Apr, [facility] [address] [address] Apr, [facility] [address] [address] Mar, Unspecified venous (peripheral) insuffic iency 459.81 ; Bipolar I disorder, most recent episode (or current) manic, moderate 296.42 ; Social phobia 300.23 ; Attention deficit disorder of childhood without mention of hyperactivity 314.00 ; Pain in joint, lower leg 719.46 ; Thrombosis 453.9 and Chronic pain 338.29 [facility] [address] [address] 18 Mar, 2015 [facility] [address] [address] 18 Mar, 2015 [facility] [address] [address] 18 Mar, 2015 [facility] [address] [address] 17 Mar, 2015 [facility] [address] [address] 17 Mar, 2015 [facility] [address] [address] 11 Mar, 2015 [facility] [address] [address] 10 Mar, 2015 Manic bipolar I disorder in partial josephine ssion 296.45 ; Social phobia 300.23 and Attention deficit disorder of childhood without mention of hyperactivity 314.00 [facility] [address] [address] Mar, [facility] [address] [address] Feb, [facility] [address] [address] Feb, Thrombosis 453.9 ; Unspecified venous (p eripheral) insufficiency 459.81 ; Bipolar I disorder, most recent episode (or current) manic, moderate 296.42 ; Social phobia 300.23 ; Attention deficit disorder of childhood without mention of hyperactivity 314.00 ; Pain in joint, lower leg 719.46 and Edema 782.3 [place] [address] [address] Feb, [facility] [address] [address] Feb, Social phobia 300.23 ; Attention deficit disorder of childhood without mention of hyperactivity 314.00 and Bipolar I disorder, most recent episode manic, in partial remission 296.45 [facility] [address] [address] Jan, [facility] [address] [address] Jan, [facility] [address] [address] Jan, Unspecified venous (peripheral) insuffic iency 459.81 and Thrombophlebitis 451.9 [facility] [address] [address] Jan, [facility] [address] [address] Dec, Headache 784.0 and Back pain 724.5 [facility] [address] [address] Dec, [facility] [address] [address] Dec, Bipolar I disorder, most recent episode (or current) manic, moderate 296.42 ; Attention deficit disorder of childhood without mention of hyperactivity 314.00 and Social phobia 300.23 [facility] [id number] [place] [address] November, [facility] [id number] [place] [address] November, [facility] [id number] [place] [address] Oct, [facility] [address] [address] Oct, [facility] [address] [address] Sep, [facility] [id number] [place] [address] Sep, [facility] [address] [address] Aug, [facility] [id number] [place] [address] Aug, [facility] [address] [address] Aug, [facility] [id number] [place] [address] Aug, [facility] [id number] [place] [address] Aug, [facility] [id number] [place] [address] Aug, [facility] [id number] [place] [address] Aug, [facility] [id number] [place] [address] Jul, [facility] [id number] [place] [address] Jul, [facility] [address] [place] [address] Jun, [facility] [place] [facility] [address] [id number] [place] [address] Jun, [facility] [place] [facility] [address] [id number] [place] [address] May, [facility] [place] [facility] [address] [id number] [place] [address] May, [facility] [place] [facility] [address] [id number] [place] [address] May, [facility] [place] [facility] [address] [id number] [place] [address] May, [facility] [place] [facility] [address] [id number] [place] [address] May, [facility] [place] [facility] [address] [id number] [place] [address] May, [facility] [place] [facility] [address] [id number] [place] [address] Apr, [facility] [place] [facility] [address] [id number] [place] [address] Apr, [facility] [place] [facility] [address] [id number] [place] [address] Apr, [facility] [place] [facility] [address] [id number] [place] [address] Apr, [facility] [place] [facility] [address] [id number] [place] [address] Mar, [facility] [place] [facility] [address] [id number] [place] [address] 22 Mar, 2014 [facility] [place] [facility] [address] [id number] [place] [address] 19 Mar, 2014 [facility] [place] [facility] [address] [id number] [place] [address] 16 Mar, 2014 [facility] [place] [facility] [address] [id number] [place] [address] 16 Mar, 2013 [facility] [place] [facility] [address] [id number] [place] [address] 15 Mar, 2013 [facility] [place] [facility] [address] [id number] [place] [address] 11 Mar, 2013 [facility] [place] [facility] [address] [facility] [id number] [place] [address] 11 Mar, 2013 [facility] [place] [facility] [address] [id number] [place] [address] 11 Mar, 2013 [facility] [place] [facility] [address] [facility] [id number] [place] [address] 11 Mar, 2013 [facility] [place] [facility] [address] [id number] [place] [address] 10 Mar, 2013 [facility] [place] [facility] [address] [id number] [place] [address] 09 Mar, 2013 [facility] [place] [facility] [address] [id number] [place] [address] 09 Mar, 2013 [facility] [place] [facility] [address] [id number] [place] [address] Mar, 2013 [facility] [place] [facility] [address] [id number] [place] [address] Mar, 2013 [facility] [place] [facility] [address] [id number] [place] [address] 29 Feb, 2014 [facility] [place] [facility] [address] [id number] [place] [address] Feb, [facility] [place] [facility] [address] [id number] [place] [address] Feb, [facility] [place] [facility] [address] [facility] [id number] [place] [address] Feb, [facility] [place] [facility] [address] [id number] [place] [address] Feb, [facility] [place] [facility] [address] [id number] [place] [address] Feb, [facility] [place] [facility] [address] [id number] [place] [address] Feb, 2013 [facility] [place] [facility] [address] [id number] [facility] [place] [address] Feb, 2013 [facility] [place] [facility] [address] [facility] [id number] [facility] [place] [address] Feb, [facility] [place] [facility] [address] [facility] [id number] [facility] [place] [address] Feb, 2013 [facility] [place] [facility] [address] [facility] [id number] [facility] [place] [address] Feb, 2013 [facility] [place] [facility] [address] [facility] [id number] [facility] [place] [address] Feb, 2013 [facility] [place] [facility] [address] [facility] [id number] [place] [address] Feb, [facility] [place] [facility] [address] [id number] [place] [address] Feb, [facility] [place] [facility] [address] [id number] [facility] [place] [address] Jan, 2013 [facility] [place] [facility] [address] [facility] [id number] [place] [address] Jan, 2013 [facility] [place] [facility] [address] [id number] [place] [address] Jan, [facility] [place] [facility] [address] [id number] [place] [address] Jan, 2013 [facility] [place] [facility] [address] [id number] [place] [address] Jan, 2013 [facility] [place] [facility] [address] [facility] [id number] [place] [address] Jan, [facility] [place] [facility] [address] [facility] [id number] [place] [address] Jan, 2013 [facility] [place] [facility] [address] [facility] [id number] [place] [address] Dec, [facility] [place] [facility] [address] [id number] [place] [address] Dec, [facility] [place] [facility] [address] [facility] [id number] [place] [address] Dec, [facility] [place] [facility] [address] [id number] [place] [address] Dec, [facility] [place] [facility] [address] [facility] [id number] [place] [address] Dec, [facility] [place] [facility] [address] [id number] [place] [address] Dec, [facility] [place] [facility] [address] [facility] [id number] [place] [address] Dec, [facility] [place] [facility] [address] [id number] [place] [address] Dec, [facility] [place] [facility] [address] [id number] [place] [address] Dec, [facility] [place] [facility] [address] [id number] [place] [address] November, [facility] [place] [facility] [address] [id number] [place] [address] November, [facility] [place] [facility] [address] [id number] [place] [address] November, [facility] [place] [facility] [address] [id number] [place] [address] November, [facility] [place] [facility] [address] [id number] [place] [address] November, [facility] [place] [facility] [address] [id number] [place] [address] November, [facility] [place] [facility] [address] [id number] [place] [address] November, [facility] [place] [facility] [address] [id number] [place] [address] November, [facility] [place] [facility] [address] [id number] [place] [address] November, [facility] [place] [facility] [address] [id number] [place] [address] November, [facility] [place] [facility] [address] [id number] [place] [address] November, [facility] [place] [facility] [address] [id number] [place] [address] November, [facility] [place] [facility] [address] [id number] [place] [address] November, [facility] [place] [facility] [address] [id number] [place] [address] November, [facility] [place] [facility] [address] [id number] [place] [address] Oct, [facility] [place] [facility] [address] [id number] [place] [address] Oct, [facility] [place] [facility] [address] [id number] [place] [address] Oct, [facility] [place] [facility] [address] [id number] [place] [address] Oct, [facility] [place] [facility] [address] [id number] [place] [address] Oct, [facility] [place] [facility] [address] [id number] [place] [address] Oct, [facility] [place] [facility] [address] [id number] [place] [address] Sep, [facility] [place] [facility] [address] [id number] [place] [address] Sep, [facility] [place] [facility] [address] [id number] [place] [address] Sep, [facility] [place] [facility] [address] [id number] [place] [address] Sep, [facility] [place] [facility] [address] [id number] [place] [address] Aug, [facility] [place] [facility] [address] [id number] [place] [address] Aug, [facility] [place] [facility] [address] [id number] [place] [address] Aug, [facility] [place] [facility] [address] [id number] [place] [address] Aug, [facility] [place] [facility] [address] [id number] [place] [address] Jul, [facility] [place] [facility] [address] [id number] [place] [address] Jul, [facility] [place] [facility] [address] [id number] [place] [address] Jul, [facility] [place] [facility] [address] [id number] [place] [address] Jul, [facility] [place] [facility] [address] [id number] [place] [address] Jul, [facility] [place] [facility] [address] [id number] [place] [address] Jul, [facility] [place] [facility] [address] [id number] [place] [address] Jul, [facility] [place] [facility] [address] [id number] [place] [address] Jun, [facility] [place] [facility] [address] [id number] [place] [address] Jun, [facility] [place] [facility] [address] [id number] [place] [address] Jun, [facility] [place] [facility] [address] [id number] [place] [address] Jun, [facility] [place] [facility] [address] [id number] [place] [address] Jun, [facility] [place] [facility] [address] [id number] [place] [address] Jun, [facility] [address] [id number] [place] [address] May, [facility] [address] [id number] [place] [address] May, [facility] [address] [id number] [place] [address] 15 Apr, 2013 [facility] [address] [facility] [id number] [place] [address] 15 Apr, 2013 [facility] [address] [facility] [id number] [place] [address] 10 Apr, 2013 [facility] [address] [id number] [place] [address] 10 Apr, 2013 [facility] [address] [facility] [id number] [place] [address] 08 Apr, 2013 [facility] [address] [facility] [id number] [place] [address] 24 Mar, 2013 [facility] [address] [id number] [place] [address] 19 Mar, 2013 [facility] [address] [id number] [place] [address] Mar, [facility] [address] [id number] [place] [address] Mar, [facility] [address] [id number] [place] [address] Feb, [facility] [address] [id number] [place] [address] Feb, [facility] [address] [id number] [place] [address] Jan, [facility] [address] [id number] [place] [address] Jan, [facility] [address] [facility] [id number] [place] [address] Jan, [facility] [address] [id number] [place] [address] Jan, [facility] [address] [id number] [place] [address] Dec, [facility] [address] [id number] [place] [address] Dec, [facility] [address] [id number] [place] [address] 07 Dec, 2012 [facility] [address] [id number] [place] [address] 06 Dec, 2012 [facility] [address] [id number] [place] [address] 16 Nov, 2012 [facility] [address] [id number] [place] [address] November, [facility] [address] [id number] [place] [address] Oct, [facility] [address] [id number] [place] [address] Sep, [facility] [address] [id number] [place] [address] 08 Sep, 2012 [facility] [id number] [place] [address] 14 Aug, 2012 [facility] [address] [id number] [place] [address] 13 Aug, 2012 [facility] [address] [id number] [place] [address] Jul, [facility] [address] [id number] [place] [address] Jul, [facility] [address] [id number] [place] [address] Jul, [facility] [address] [id number] [place] [address] Jun, [facility] [address] [id number] [place] [address] Jun, [facility] [address] [id number] [place] [address] Jun, [facility] [address] [id number] [place] [address] Jun, [facility] [address] [id number] [place] [address] May, [facility] [address] [facility] [id number] [place] [address] May, [facility] [address] [id number] [place] [address] May, [facility] [address] [id number] [place] [address] May, [facility] [address] [id number] [place] [address] May, [facility] [address] [id number] [place] [address] May, [facility] [address] [id number] [place] [address] May, [facility] [address] [id number] [place] [address] 15 Apr, 2012 [facility] [address] [id number] [place] [address] Apr, [facility] [address] [id number] [place] [address] Apr, [facility] [address] [id number] [place] [address] Apr, [facility] [address] [id number] [place] [address] Apr, [facility] [address] [id number] [place] [address] Apr, [facility] [address] [id number] [place] [address] Apr, [facility] [address] [id number] [place] [address] Apr, [facility] [address] [id number] [place] [address] Jan, [facility] [address] [id number] [place] [address] Jan, [facility] [address] [id number] [place] [address] 06 Dec, 2011 [facility] [address] [id number] [place] [address] November, [facility] [address] [id number] [place] [address] 27 Oct, 2011 [facility] [address] [id number] [place] [address] Oct, [facility] [address] [id number] [place] [address] Oct, [facility] [address] [id number] [place] [address] Oct, [facility] [address] [id number] [place] [address] Sep, [facility] [address] [id number] [place] [address] Sep, [facility] [address] [id number] [place] [address] Sep, [facility] [address] [id number] [place] [address] Jun, [facility] [address] [id number] [place] [address] Jun, [facility] [address] [id number] [place] [address] May, [facility] [address] [id number] [place] [address] 14 Jan, 2011 [facility] [address] [id number] [place] [address] November, [facility] [address] [id number] [place] [address] 14 Oct, 2010 [facility] [address] [id number] [place] [address] 16 Sep, 2010 [facility] [address] [id number] [place] [address] May, [facility] [address] [id number] [place] [address] Jul, [facility] [id number] [place] [address] Jun, [facility] [address] [id number] [place] [address] Jun, [facility] [id number] [place] [address] Jun, [facility] [address] [id number] [place] [address] Jun, [facility] [id number] [place] [address] May, [facility] [address] [id number] [place] [address] May, [facility] [id number] [place] [address] Apr, [facility] [address] [id number] [place] [address] Apr, [facility] [id number] [place] [address] Apr, IMMUNIZATIONS No Known Immunizations SOCIAL HISTORY Never Assessed REASON FOR VISIT PLAN OF CARE VITAL SIGNS Height 61 in 2013-09-28 Weight 215.6 lbs 2013-09-28 Heart Rate 100 bpm 2013-09-28 Respiratory Rate 16 2013-09-28 Blood pressure systolic 142 mmHg 2013-09-28 Blood pressure diastolic 80 mmHg 2013-09-28 MEDICATIONS Unknown Medications RESULTS No Results PROCEDURES [...] right 06/1996 Surgical History multiple knee injections ([id number]) Surgical History left knee replacement 06/11 Hospitalization History Knee surgery- x 3 days 06/11
--- OUTSIDE RECORDS SUMMARY | 2019-12-16 20:25 | XMS REPORT ---
Author Author Patti Guzman Doctor Organization [facility] Address Unknown Phone Unavailable Care Team Providers Care Editor City Name Role Phone Migration, Doctor Unavailable Unavailable PROBLEMS Type Condition ICD9-CM Code VCA97-IC Code Onset Dates Condition S tatus SNOMED Code Problem ADD (attention deficit disorder) F90.0 Active 653584480 Problem Drug abuse counseling and surveillance of drug abuser Z71.51 Active 816839676 Problem Insomnia G47.00 Active 894834317 Problem Joint pain M25.50 Active 55936837 Problem Edema, unspecified type R60.9 Active 587905433 Problem Episode of recurrent major d epressive disorder, unspecified depression episode severity F33.9 Active 609011279 Problem Venous insufficiency (chronic) (peripheral) I87.2 Active 32708131711800842 Problem Carpal tunnel syndrome on left G56.02 Active 514808036907230 Problem Manic bipolar I disorder in partial remission F31. 73 Active 49140473 Problem Bipolar affective disorder, currently depressed, moderate F31.32 Active 102176788 Problem Social anxiety disorder F40.10 Active 46015714 Problem Other chronic pain G89.29 Active 8 5701465 Problem Stimulant abuse F15.10 Active 4415 39698 Problem Bipolar II disorder F31.81 Active 17088370 Problem ADD (attention deficit disorder) without hyperactivity F98.8 Active [id number] ALLERGIES No Information ENCOUNTERS Encounter Location Date Diagnosis [facility] [id number] [place] [address] Oct, [facility] [address] [address] Sep, [facility] [address] [address] Aug, [facility] [address] [facility] [place] [address] Aug, Bipolar II disorder F31.81 ; Social anxi ety disorder F40.10 and ADD (attention deficit disorder) F90.0 [address] [address] [address] Jul, [place] [address] [address] Apr, [place] [address] [address] Apr, Bipolar II disorder F31.81 and Social an xiety disorder F40.10 [place] [address] [address] Jan, Bipolar affective disorder, currently de pressed, moderate F31.[address] [address] Jan, Bipolar affective disorder, currently de pressed, moderate F31.32 ; Social anxiety disorder F40.10 and Morbid obesity E66.01 [place] [address] [address] May, Screening for lipid disorders Z13.220 [place] [address] [address] May, Carpal tunnel syndrome on left G56.02 ; Social anxiety disorder F40.10 and Screening for lipid disorders Z13.220 [place] [address] [address] 11 Apr, 2018 Bipolar II disorder F31.81 ; Social anxi ety disorder F40.10 ; ADD (attention deficit disorder) without hyperactivity F98.8 and BMI 45.0-49.9, adult Z68.42 [place] [address] [address] Mar, [address] [address] Feb, BMI 45.0-49.9, adult Z68.42 ; Carpal sylvia martha syndrome on left G56.02 and Social anxiety disorder F40.[address] [address] Jan, Bipolar II disorder F31.81 ; ADD (attent ion deficit disorder) without hyperactivity F98.8 ; Social anxiety disorder F40.10 and Stimulant abuse F15.10 [place] [address] [address] Dec, Episode of recurrent major depressive di sorder, unspecified depression episode severity F33.9 ; Other chronic pain G89.29 ; Radiculopathy, lumbar region M54.16 ; Edema of lower extremity R60.0 and BMI 45.0-49.9, adult Z68.42 [place] [address] [address] Jun, [place] [address] [address] Jan, Joint pain M25.50 [place] [address] [address] Jan, Wellness examination Z00.00 ; Pain in ri ght knee M25.561 ; Pain in left knee M25.562 ; Edema, unspecified type R60.9 and Drug abuse counseling and surveillance of drug abuser Z71.51 [place] [address] [address] November, [place] [address] [address] Oct, [place] [address] [address] Oct, ADD (attention deficit disorder) F90.0 ; Social anxiety disorder F40.10 and Manic bipolar I disorder in partial remission F31.73 [place] [address] [address] Aug, [place] [address] [address] Aug, [place] [address] [address] Aug, [facility] [id number] [place] [address] Jul, [facility] [address] [address] Jul, [facility] [address] [address] Jul, [facility] [address] [address] Jun, [facility] [address] [address] Jun, [facility] [address] [address] Jun, [facility] [address] [address] Jun, [facility] [address] [address] May, Joint pain M25.50 ; ADD (attention defic it disorder) F90.0 ; Edema R60.9 and Insomnia G47.00 [facility] [address] [address] May, [facility] [address] [address] May, [facility] [address] [address] May, [facility] [address] [address] May, Left wrist pain M25.532 ; Sinusitis J32. 9 and Drug abuse counseling and surveillance of drug abuser Z71.51 [facility] [address] [address] Apr, [facility] [address] [address] Apr, [facility] [address] [address] Apr, [facility] [address] [address] Apr, [facility] [address] [address] Apr, [facility] [address] [address] Apr, [facility] [address] [address] Apr, [facility] [address] [address] Mar, Unspecified venous (peripheral) insuffic iency 459.81 ; Bipolar I disorder, most recent episode (or current) manic, moderate 296.42 ; Social phobia 300.23 ; Attention deficit disorder of childhood without mention of hyperactivity 314.00 ; Pain in joint, lower leg 719.46 ; Thrombosis 453.9 and Chronic pain 338.29 [facility] [address] [address] 18 Mar, 2015 [facility] [address] [address] 18 Mar, 2015 [facility] [address] [address] 18 Mar, 2015 [facility] [address] [address] 17 Mar, 2015 [facility] [address] [address] 17 Mar, 2015 [facility] [address] [address] 11 Mar, 2015 [facility] [address] [address] 10 Mar, 2015 Manic bipolar I disorder in partial josephine ssion 296.45 ; Social phobia 300.23 and Attention deficit disorder of childhood without mention of hyperactivity 314.00 [facility] [address] [address] Mar, [facility] [address] [address] Feb, [facility] [address] [address] Feb, Thrombosis 453.9 ; Unspecified venous (p eripheral) insufficiency 459.81 ; Bipolar I disorder, most recent episode (or current) manic, moderate 296.42 ; Social phobia 300.23 ; Attention deficit disorder of childhood without mention of hyperactivity 314.00 ; Pain in joint, lower leg 719.46 and Edema 782.3 [place] [address] [address] Feb, [facility] [address] [address] Feb, Social phobia 300.23 ; Attention deficit disorder of childhood without mention of hyperactivity 314.00 and Bipolar I disorder, most recent episode manic, in partial remission 296.45 [facility] [address] [address] Jan, [facility] [address] [address] Jan, [facility] [address] [address] Jan, Unspecified venous (peripheral) insuffic iency 459.81 and Thrombophlebitis 451.9 [facility] [address] [address] Jan, [facility] [address] [address] Dec, Headache 784.0 and Back pain 724.5 [facility] [address] [address] Dec, [facility] [address] [address] Dec, Bipolar I disorder, most recent episode (or current) manic, moderate 296.42 ; Attention deficit disorder of childhood without mention of hyperactivity 314.00 and Social phobia 300.23 [facility] [id number] [place] [address] November, [facility] [id number] [place] [address] November, [facility] [id number] [place] [address] Oct, [facility] [address] [address] Oct, [facility] [address] [address] Sep, [facility] [id number] [place] [address] Sep, [facility] [address] [address] Aug, [facility] [id number] [place] [address] Aug, [facility] [address] [address] Aug, [facility] [id number] [place] [address] Aug, [facility] [id number] [place] [address] Aug, [facility] [id number] [place] [address] Aug, [facility] [id number] [place] [address] Aug, [facility] [id number] [place] [address] Jul, [facility] [id number] [place] [address] Jul, [facility] [address] [place] [address] Jun, [facility] [place] [facility] [address] [id number] [place] [address] Jun, [facility] [place] [facility] [address] [id number] [place] [address] May, [facility] [place] [facility] [address] [id number] [place] [address] May, [facility] [place] [facility] [address] [id number] [place] [address] May, [facility] [place] [facility] [address] [id number] [place] [address] May, [facility] [place] [facility] [address] [id number] [place] [address] May, [facility] [place] [facility] [address] [id number] [place] [address] May, [facility] [place] [facility] [address] [id number] [place] [address] Apr, [facility] [place] [facility] [address] [id number] [place] [address] Apr, [facility] [place] [facility] [address] [id number] [place] [address] Apr, [facility] [place] [facility] [address] [id number] [place] [address] Apr, [facility] [place] [facility] [address] [id number] [place] [address] Mar, [facility] [place] [facility] [address] [id number] [place] [address] 22 Mar, 2014 [facility] [place] [facility] [address] [id number] [place] [address] 19 Mar, 2014 [facility] [place] [facility] [address] [id number] [place] [address] 16 Mar, 2014 [facility] [place] [facility] [address] [id number] [place] [address] 16 Mar, 2013 [facility] [place] [facility] [address] [id number] [place] [address] 15 Mar, 2013 [facility] [place] [facility] [address] [id number] [place] [address] 11 Mar, 2013 [facility] [place] [facility] [address] [facility] [id number] [place] [address] 11 Mar, 2013 [facility] [place] [facility] [address] [id number] [place] [address] 11 Mar, 2013 [facility] [place] [facility] [address] [facility] [id number] [place] [address] 11 Mar, 2013 [facility] [place] [facility] [address] [id number] [place] [address] 10 Mar, 2013 [facility] [place] [facility] [address] [id number] [place] [address] 09 Mar, 2013 [facility] [place] [facility] [address] [id number] [place] [address] 09 Mar, 2013 [facility] [place] [facility] [address] [id number] [place] [address] Mar, 2013 [facility] [place] [facility] [address] [id number] [place] [address] Mar, 2013 [facility] [place] [facility] [address] [id number] [place] [address] 29 Feb, 2014 [facility] [place] [facility] [address] [id number] [place] [address] Feb, [facility] [place] [facility] [address] [id number] [place] [address] Feb, [facility] [place] [facility] [address] [facility] [id number] [place] [address] Feb, [facility] [place] [facility] [address] [id number] [place] [address] Feb, [facility] [place] [facility] [address] [id number] [place] [address] Feb, [facility] [place] [facility] [address] [id number] [place] [address] Feb, 2013 [facility] [place] [facility] [address] [id number] [facility] [place] [address] Feb, 2013 [facility] [place] [facility] [address] [facility] [id number] [facility] [place] [address] Feb, [facility] [place] [facility] [address] [facility] [id number] [facility] [place] [address] Feb, 2013 [facility] [place] [facility] [address] [facility] [id number] [facility] [place] [address] Feb, 2013 [facility] [place] [facility] [address] [facility] [id number] [facility] [place] [address] Feb, 2013 [facility] [place] [facility] [address] [facility] [id number] [place] [address] Feb, [facility] [place] [facility] [address] [id number] [place] [address] Feb, [facility] [place] [facility] [address] [id number] [facility] [place] [address] Jan, 2013 [facility] [place] [facility] [address] [facility] [id number] [place] [address] Jan, 2013 [facility] [place] [facility] [address] [id number] [place] [address] Jan, [facility] [place] [facility] [address] [id number] [place] [address] Jan, 2013 [facility] [place] [facility] [address] [id number] [place] [address] Jan, 2013 [facility] [place] [facility] [address] [facility] [id number] [place] [address] Jan, [facility] [place] [facility] [address] [facility] [id number] [place] [address] Jan, 2013 [facility] [place] [facility] [address] [facility] [id number] [place] [address] Dec, [facility] [place] [facility] [address] [id number] [place] [address] Dec, [facility] [place] [facility] [address] [facility] [id number] [place] [address] Dec, [facility] [place] [facility] [address] [id number] [place] [address] Dec, [facility] [place] [facility] [address] [facility] [id number] [place] [address] Dec, [facility] [place] [facility] [address] [id number] [place] [address] Dec, [facility] [place] [facility] [address] [facility] [id number] [place] [address] Dec, [facility] [place] [facility] [address] [id number] [place] [address] Dec, [facility] [place] [facility] [address] [id number] [place] [address] Dec, [facility] [place] [facility] [address] [id number] [place] [address] November, [facility] [place] [facility] [address] [id number] [place] [address] November, [facility] [place] [facility] [address] [id number] [place] [address] November, [facility] [place] [facility] [address] [id number] [place] [address] November, [facility] [place] [facility] [address] [id number] [place] [address] November, [facility] [place] [facility] [address] [id number] [place] [address] November, [facility] [place] [facility] [address] [id number] [place] [address] November, [facility] [place] [facility] [address] [id number] [place] [address] November, [facility] [place] [facility] [address] [id number] [place] [address] November, [facility] [place] [facility] [address] [id number] [place] [address] November, [facility] [place] [facility] [address] [id number] [place] [address] November, [facility] [place] [facility] [address] [id number] [place] [address] November, [facility] [place] [facility] [address] [id number] [place] [address] November, [facility] [place] [facility] [address] [id number] [place] [address] November, [facility] [place] [facility] [address] [id number] [place] [address] Oct, [facility] [place] [facility] [address] [id number] [place] [address] Oct, [facility] [place] [facility] [address] [id number] [place] [address] Oct, [facility] [place] [facility] [address] [id number] [place] [address] Oct, [facility] [place] [facility] [address] [id number] [place] [address] Oct, [facility] [place] [facility] [address] [id number] [place] [address] Oct, [facility] [place] [facility] [address] [id number] [place] [address] Sep, [facility] [place] [facility] [address] [id number] [place] [address] Sep, [facility] [place] [facility] [address] [id number] [place] [address] Sep, [facility] [place] [facility] [address] [id number] [place] [address] Sep, [facility] [place] [facility] [address] [id number] [place] [address] Aug, [facility] [place] [facility] [address] [id number] [place] [address] Aug, [facility] [place] [facility] [address] [id number] [place] [address] Aug, [facility] [place] [facility] [address] [id number] [place] [address] Aug, [facility] [place] [facility] [address] [id number] [place] [address] Jul, [facility] [place] [facility] [address] [id number] [place] [address] Jul, [facility] [place] [facility] [address] [id number] [place] [address] Jul, [facility] [place] [facility] [address] [id number] [place] [address] Jul, [facility] [place] [facility] [address] [id number] [place] [address] Jul, [facility] [place] [facility] [address] [id number] [place] [address] Jul, [facility] [place] [facility] [address] [id number] [place] [address] Jul, [facility] [place] [facility] [address] [id number] [place] [address] Jun, [facility] [place] [facility] [address] [id number] [place] [address] Jun, [facility] [place] [facility] [address] [id number] [place] [address] Jun, [facility] [place] [facility] [address] [id number] [place] [address] Jun, [facility] [place] [facility] [address] [id number] [place] [address] Jun, [facility] [place] [facility] [address] [id number] [place] [address] Jun, [facility] [place] [facility] [address] [id number] [place] [address] May, [facility] [place] [facility] [address] [id number] [place] [address] May, [facility] [place] [facility] [address] [id number] [place] [address] 15 Apr, 2013 [facility] [place] [facility] [address] [facility] [id number] [place] [address] 15 Apr, 2013 [facility] [place] [facility] [address] [facility] [id number] [place] [address] 10 Apr, 2013 [facility] [place] [facility] [address] [id number] [place] [address] 10 Apr, 2013 [facility] [place] [facility] [address] [facility] [id number] [place] [address] 08 Apr, 2013 [facility] [place] [facility] [address] [facility] [id number] [place] [address] 24 Mar, 2013 [facility] [place] [facility] [address] [id number] [place] [address] 19 Mar, 2013 [facility] [place] [facility] [address] [id number] [place] [address] Mar, [facility] [place] [facility] [address] [id number] [place] [address] Mar, [facility] [place] [facility] [address] [id number] [place] [address] Feb, [facility] [place] [facility] [address] [id number] [place] [address] Feb, [facility] [place] [facility] [address] [id number] [place] [address] Jan, [facility] [place] [facility] [address] [id number] [place] [address] Jan, [facility] [place] [facility] [address] [facility] [id number] [place] [address] Jan, [facility] [place] [facility] [address] [id number] [place] [address] Jan, [facility] [place] [facility] [address] [id number] [place] [address] Dec, [facility] [place] [facility] [address] [id number] [place] [address] Dec, [facility] [address] [id number] [place] [address] 07 Dec, 2012 [facility] [address] [id number] [place] [address] 06 Dec, 2012 [facility] [address] [id number] [place] [address] 16 Nov, 2012 [facility] [address] [id number] [place] [address] November, [facility] [address] [id number] [place] [address] Oct, [facility] [address] [id number] [place] [address] Sep, [facility] [address] [id number] [place] [address] 08 Sep, 2012 [facility] [id number] [place] [address] 14 Aug, 2012 [facility] [address] [id number] [place] [address] 13 Aug, 2012 [facility] [address] [id number] [place] [address] Jul, [facility] [address] [id number] [place] [address] Jul, [facility] [address] [id number] [place] [address] Jul, [facility] [address] [id number] [place] [address] Jun, [facility] [address] [id number] [place] [address] Jun, [facility] [address] [id number] [place] [address] Jun, [facility] [address] [id number] [place] [address] Jun, [facility] [address] [id number] [place] [address] May, [facility] [address] [id number] [place] [address] May, [facility] [address] [id number] [place] [address] May, [facility] [address] [id number] [place] [address] May, [facility] [address] [id number] [place] [address] May, [facility] [address] [id number] [place] [address] May, [facility] [address] [id number] [place] [address] May, [facility] [address] [id number] [place] [address] 15 Apr, 2012 [facility] [address] [id number] [place] [address] Apr, [facility] [address] [id number] [place] [address] Apr, [facility] [address] [id number] [place] [address] Apr, [facility] [address] [id number] [place] [address] Apr, [facility] [address] [id number] [place] [address] Apr, [facility] [address] [id number] [place] [address] Apr, [facility] [address] [id number] [place] [address] Apr, [facility] [address] [id number] [place] [address] Jan, [facility] [address] [id number] [place] [address] Jan, [facility] [address] [id number] [place] [address] 06 Dec, 2011 [facility] [address] [id number] [place] [address] November, [facility] [address] [id number] [place] [address] 27 Oct, 2011 [facility] [address] [id number] [place] [address] Oct, [facility] [address] [id number] [place] [address] Oct, [facility] [address] [id number] [place] [address] Oct, [facility] [address] [id number] [place] [address] Sep, [facility] [address] [id number] [place] [address] Sep, [facility] [address] [id number] [place] [address] Sep, [facility] [address] [address] [id number] [place] [address] Jun, [facility] [address] [id number] [place] [address] Jun, [facility] [address] [id number] [place] [address] May, [facility] [address] [id number] [place] [address] 14 Jan, 2011 [facility] [address] [id number] [place] [address] November, [facility] [address] [id number] [place] [address] 14 Oct, 2010 [facility] [address] [id number] [place] [address] 16 Sep, 2010 [facility] [address] [id number] [place] [address] May, [facility] [address] [id number] [place] [address] Jul, [facility] [address] [id number] [place] [address] Jun, [facility] [address] [id number] [place] [address] Jun, [facility] [id number] [place] [address] Jun, [facility] [address] [id number] [place] [address] Jun, [facility] [id number] [place] [address] May, [facility] [address] [id number] [place] [address] May, [facility] [id number] [place] [address] Apr, [facility] [address] [id number] [place] [address] Apr, [facility] [id number] [place] [address] Apr, IMMUNIZATIONS No Known Immunizations SOCIAL HISTORY [...] right 06/1996 Surgical History multiple knee injections ([id number]) Surgical History left knee replacement 06/11 Hospitalization History Knee surgery- x 3 days 06/11
--- OUTSIDE RECORDS SUMMARY | 2019-12-16 20:25 | XMS REPORT ---
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 Name Role Phone Migration, Doctor Unavailable Unavailable PROBLEMS Type Condition ICD9-CM Code TDW50-VX Code Onset Dates Condition S tatus SNOMED Code Problem ADD (attention deficit disorder) F90.0 Active 797225452 Problem Drug abuse counseling and surveillance of drug abuser Z71.51 Active 728283311 Problem Insomnia G47.00 Active 819464621 Problem Joint pain M25.50 Active 53417481 Problem Edema, unspecified type R60.9 Active 030041247 Problem Episode of recurrent major d epressive disorder, unspecified depression episode severity F33.9 Active 052763142 Problem Venous insufficiency (chronic) (peripheral) I87.2 Active 95089244027889958 Problem Carpal tunnel syndrome on left G56.02 Active 716552409004587 Problem Manic bipolar I disorder in partial remission F31. 73 Active 94828822 Problem Bipolar affective disorder, currently depressed, moderate F31.32 Active 928404896 Problem Social anxiety disorder F40.10 Active 90249823 Problem Other chronic pain G89.29 Active 8 0315718 Problem Stimulant abuse F15.10 Active 4415 31720 Problem Bipolar II disorder F31.81 Active 32346878 Problem ADD (attention deficit disorder) without hyperactivity F98.8 Active 96874071 ALLERGIES No Information ENCOUNTERS Encounter Location Date Diagnosis [facility] [id number] [place] [address] Oct, [facility] [address] [address] Sep, [facility] [address] [address] Aug, [facility] [address] [facility] [place] [address] Aug, Bipolar II disorder F31.81 ; Social anxi ety disorder F40.10 and ADD (attention deficit disorder) F90.0 [place] [address] [address] Jul, [place] [address] [address] Apr, [place] [address] [address] Apr, Bipolar II disorder F31.81 and Social an xiety disorder F40.10 [place] [address] [address] Jan, Bipolar affective disorder, currently de pressed, moderate F31.[address] [address] Jan, Bipolar affective disorder, currently de pressed, moderate F31.32 ; Social anxiety disorder F40.10 and Morbid obesity E66.01 [place] [address] [address] May, Screening for lipid disorders Z13.220 [place] [address] [address] May, Carpal tunnel syndrome on left G56.02 ; Social anxiety disorder F40.10 and Screening for lipid disorders Z13.220 [place] [address] [address] 11 Apr, 2018 Bipolar II disorder F31.81 ; Social anxi ety disorder F40.10 ; ADD (attention deficit disorder) without hyperactivity F98.8 and BMI 45.0-49.9, adult Z68.42 [place] [address] [address] Mar, [address] [address] Feb, BMI 45.0-49.9, adult Z68.42 ; Carpal sylvia martha syndrome on left G56.02 and Social anxiety disorder F40.[address] [address] Jan, Bipolar II disorder F31.81 ; ADD (attent ion deficit disorder) without hyperactivity F98.8 ; Social anxiety disorder F40.10 and Stimulant abuse F15.10 [place] [address] [address] Dec, Episode of recurrent major depressive di sorder, unspecified depression episode severity F33.9 ; Other chronic pain G89.29 ; Radiculopathy, lumbar region M54.16 ; Edema of lower extremity R60.0 and BMI 45.0-49.9, adult Z68.42 [place] [address] [address] Jun, [place] [address] [address] Jan, Joint pain M25.50 [place] [address] [address] Jan, Wellness examination Z00.00 ; Pain in ri ght knee M25.561 ; Pain in left knee M25.562 ; Edema, unspecified type R60.9 and Drug abuse counseling and surveillance of drug abuser Z71.51 [place] [address] [address] November, [place] [address] [address] Oct, [place] [address] [address] Oct, ADD (attention deficit disorder) F90.0 ; Social anxiety disorder F40.10 and Manic bipolar I disorder in partial remission F31.73 [place] [address] [address] Aug, [place] [address] [address] Aug, [place] [address] [address] Aug, [facility] [id number] [place] [address] Jul, [facility] [address] [address] Jul, [facility] [address] [address] Jul, [facility] [address] [address] Jun, [facility] [address] [address] Jun, [facility] [address] [address] Jun, [facility] [address] [address] Jun, [facility] [address] [address] May, Joint pain M25.50 ; ADD (attention defic it disorder) F90.0 ; Edema R60.9 and Insomnia G47.00 [facility] [address] [address] May, [facility] [address] [address] May, [facility] [address] [address] May, [facility] [address] [address] May, Left wrist pain M25.532 ; Sinusitis J32. 9 and Drug abuse counseling and surveillance of drug abuser Z71.51 [facility] [address] [address] Apr, [facility] [address] [address] Apr, [facility] [address] [address] Apr, [facility] [address] [address] Apr, [facility] [address] [address] Apr, [facility] [address] [address] Apr, [facility] [address] [address] Apr, [facility] [address] [address] Mar, Unspecified venous (peripheral) insuffic iency 459.81 ; Bipolar I disorder, most recent episode (or current) manic, moderate 296.42 ; Social phobia 300.23 ; Attention deficit disorder of childhood without mention of hyperactivity 314.00 ; Pain in joint, lower leg 719.46 ; Thrombosis 453.9 and Chronic pain 338.29 [facility] [address] [address] 18 Mar, 2015 [facility] [address] [address] 18 Mar, 2015 [facility] [address] [address] 18 Mar, 2015 [facility] [address] [address] 17 Mar, 2015 [facility] [address] [address] 17 Mar, 2015 [facility] [address] [address] 11 Mar, 2015 [facility] [address] [address] 10 Mar, 2015 Manic bipolar I disorder in partial josephine ssion 296.45 ; Social phobia 300.23 and Attention deficit disorder of childhood without mention of hyperactivity 314.00 [facility] [address] [address] Mar, [facility] [address] [address] Feb, [facility] [address] [address] Feb, Thrombosis 453.9 ; Unspecified venous (p eripheral) insufficiency 459.81 ; Bipolar I disorder, most recent episode (or current) manic, moderate 296.42 ; Social phobia 300.23 ; Attention deficit disorder of childhood without mention of hyperactivity 314.00 ; Pain in joint, lower leg 719.46 and Edema 782.3 [place] [address] [address] Feb, [facility] [address] [address] Feb, Social phobia 300.23 ; Attention deficit disorder of childhood without mention of hyperactivity 314.00 and Bipolar I disorder, most recent episode manic, in partial remission 296.45 [facility] [address] [address] Jan, [facility] [address] [address] Jan, [facility] [address] [address] Jan, Unspecified venous (peripheral) insuffic iency 459.81 and Thrombophlebitis 451.9 [facility] [address] [address] Jan, [facility] [address] [address] Dec, Headache 784.0 and Back pain 724.5 [facility] [address] [address] Dec, [facility] [address] [address] Dec, Bipolar I disorder, most recent episode (or current) manic, moderate 296.42 ; Attention deficit disorder of childhood without mention of hyperactivity 314.00 and Social phobia 300.23 [facility] [id number] [place] [address] November, [facility] [id number] [place] [address] November, [facility] [id number] [place] [address] Oct, [facility] [address] [address] Oct, [facility] [address] [address] Sep, [facility] [id number] [place] [address] Sep, [facility] [address] [address] Aug, [facility] [id number] [place] [address] Aug, [facility] [address] [address] Aug, [facility] [id number] [place] [address] Aug, [facility] [id number] [place] [address] Aug, [facility] [id number] [place] [address] Aug, [facility] [id number] [place] [address] Aug, [facility] [id number] [place] [address] Jul, [facility] [id number] [place] [address] Jul, [facility] [address] [place] [address] Jun, [facility] [place] [facility] [address] [id number] [place] [address] Jun, [facility] [place] [facility] [address] [id number] [place] [address] May, [facility] [place] [facility] [address] [id number] [place] [address] May, [facility] [place] [facility] [address] [id number] [place] [address] May, [facility] [place] [facility] [address] [id number] [place] [address] May, [facility] [place] [facility] [address] [id number] [place] [address] May, [facility] [place] [facility] [address] [id number] [place] [address] May, [facility] [place] [facility] [address] [id number] [place] [address] Apr, [facility] [place] [facility] [address] [id number] [place] [address] Apr, [facility] [place] [facility] [address] [id number] [place] [address] Apr, [facility] [place] [facility] [address] [id number] [place] [address] Apr, [facility] [place] [facility] [address] [id number] [place] [address] Mar, [facility] [place] [facility] [address] [id number] [place] [address] 22 Mar, 2014 [facility] [place] [facility] [address] [id number] [place] [address] 19 Mar, 2014 [facility] [place] [facility] [address] [id number] [place] [address] 16 Mar, 2014 [facility] [place] [facility] [address] [id number] [place] [address] 16 Mar, 2013 [facility] [place] [facility] [address] [id number] [place] [address] 15 Mar, 2013 [facility] [place] [facility] [address] [id number] [place] [address] 11 Mar, 2013 [facility] [place] [facility] [address] [facility] [id number] [place] [address] 11 Mar, 2013 [facility] [place] [facility] [address] [id number] [place] [address] 11 Mar, 2013 [facility] [place] [facility] [address] [facility] [id number] [place] [address] 11 Mar, 2013 [facility] [place] [facility] [address] [id number] [place] [address] 10 Mar, 2013 [facility] [place] [facility] [address] [id number] [place] [address] 09 Mar, 2013 [facility] [place] [facility] [address] [id number] [place] [address] 09 Mar, 2013 [facility] [place] [facility] [address] [id number] [place] [address] Mar, 2013 [facility] [place] [facility] [address] [id number] [place] [address] Mar, 2013 [facility] [place] [facility] [address] [id number] [place] [address] 29 Feb, 2014 [facility] [place] [facility] [address] [id number] [place] [address] Feb, [facility] [place] [facility] [address] [id number] [place] [address] Feb, [facility] [place] [facility] [address] [facility] [id number] [place] [address] Feb, [facility] [place] [facility] [address] [id number] [place] [address] Feb, [facility] [place] [facility] [address] [id number] [place] [address] Feb, [facility] [place] [facility] [address] [id number] [place] [address] Feb, 2013 [facility] [place] [facility] [address] [id number] [place] [address] Feb, 2013 [facility] [place] [facility] [address] [facility] [id number] [place] [address] Feb, [facility] [place] [facility] [address] [facility] [id number] [place] [address] Feb, 2013 [facility] [place] [facility] [address] [facility] [id number] [place] [address] Feb, 2013 [facility] [place] [facility] [address] [facility] [id number] [place] [address] Feb, 2013 [facility] [place] [facility] [address] [facility] [id number] [place] [address] Feb, [facility] [place] [facility] [address] [id number] [place] [address] Feb, [facility] [place] [facility] [address] [id number] [place] [address] Jan, 2013 [facility] [place] [facility] [address] [facility] [id number] [place] [address] Jan, 2013 [facility] [place] [facility] [address] [id number] [place] [address] Jan, [facility] [place] [facility] [address] [id number] [place] [address] Jan, 2013 [facility] [place] [facility] [address] [id number] [place] [address] Jan, 2013 [facility] [place] [facility] [address] [facility] [id number] [place] [address] Jan, [facility] [place] [facility] [address] [facility] [id number] [place] [address] Jan, 2013 [facility] [place] [facility] [address] [facility] [id number] [place] [address] Dec, [facility] [place] [facility] [address] [id number] [place] [address] Dec, [facility] [place] [facility] [address] [facility] [id number] [place] [address] Dec, [facility] [place] [facility] [address] [id number] [place] [address] Dec, [facility] [place] [facility] [address] [facility] [id number] [place] [address] Dec, [facility] [place] [facility] [address] [id number] [place] [address] Dec, [facility] [place] [facility] [address] [facility] [id number] [place] [address] Dec, [facility] [place] [facility] [address] [id number] [place] [address] Dec, [facility] [place] [facility] [address] [id number] [place] [address] Dec, [facility] [place] [facility] [address] [id number] [place] [address] November, [facility] [place] [facility] [address] [id number] [place] [address] November, [facility] [place] [facility] [address] [id number] [place] [address] November, [facility] [place] [facility] [address] [id number] [place] [address] November, [facility] [place] [facility] [address] [id number] [place] [address] November, [facility] [place] [facility] [address] [id number] [place] [address] November, [facility] [place] [facility] [address] [id number] [place] [address] November, [facility] [place] [facility] [address] [id number] [place] [address] November, [facility] [place] [facility] [address] [id number] [place] [address] November, [facility] [place] [facility] [address] [id number] [place] [address] November, [facility] [place] [facility] [address] [id number] [place] [address] November, [facility] [place] [facility] [address] [id number] [place] [address] November, [facility] [place] [facility] [address] [id number] [place] [address] November, [facility] [place] [facility] [address] [id number] [place] [address] November, [facility] [place] [facility] [address] [id number] [place] [address] Oct, [facility] [place] [facility] [address] [id number] [place] [address] Oct, [facility] [place] [facility] [address] [id number] [place] [address] Oct, [facility] [place] [facility] [address] [id number] [place] [address] Oct, [facility] [place] [facility] [address] [id number] [place] [address] Oct, [facility] [place] [facility] [address] [id number] [place] [address] Oct, [facility] [place] [facility] [address] [id number] [place] [address] Sep, [facility] [place] [facility] [address] [id number] [place] [address] Sep, [facility] [place] [facility] [address] [id number] [place] [address] Sep, [facility] [place] [facility] [address] [id number] [place] [address] Sep, [facility] [place] [facility] [address] [id number] [place] [address] Aug, [facility] [place] [facility] [address] [id number] [place] [address] Aug, [facility] [place] [facility] [address] [id number] [place] [address] Aug, [facility] [place] [facility] [address] [id number] [place] [address] Aug, [facility] [place] [facility] [address] [id number] [place] [address] Jul, [facility] [place] [facility] [address] [id number] [place] [address] Jul, [facility] [place] [facility] [address] [id number] [place] [address] Jul, [facility] [place] [facility] [address] [id number] [place] [address] Jul, [facility] [place] [facility] [address] [id number] [place] [address] Jul, [facility] [place] [facility] [address] [id number] [place] [address] Jul, [facility] [place] [facility] [address] [id number] [place] [address] Jul, [facility] [place] [facility] [address] [id number] [place] [address] Jun, [facility] [place] [facility] [address] [id number] [place] [address] Jun, [facility] [place] [facility] [address] [id number] [place] [address] Jun, [facility] [place] [facility] [address] [id number] [place] [address] Jun, [facility] [address] [id number] [place] [address] Jun, [facility] [address] [id number] [place] [address] Jun, [facility] [address] [id number] [place] [address] May, [facility] [address] [id number] [place] [address] May, [facility] [address] [id number] [place] [address] 15 Apr, 2013 [facility] [address] [facility] [id number] [place] [address] 15 Apr, 2013 [facility] [address] [facility] [id number] [place] [address] 10 Apr, 2013 [facility] [address] [id number] [place] [address] 10 Apr, 2013 [facility] [address] [facility] [id number] [place] [address] 08 Apr, 2013 [facility] [address] [facility] [id number] [place] [address] 24 Mar, 2013 [facility] [address] [id number] [place] [address] 19 Mar, 2013 [facility] [address] [id number] [place] [address] Mar, [facility] [address] [id number] [place] [address] Mar, [facility] [address] [id number] [place] [address] Feb, [facility] [address] [id number] [place] [address] Feb, [facility] [address] [id number] [place] [address] Jan, [facility] [address] [id number] [place] [address] Jan, [facility] [address] [facility] [id number] [place] [address] Jan, [facility] [address] [id number] [place] [address] Jan, [facility] [address] [id number] [place] [address] Dec, [facility] [address] [id number] [place] [address] Dec, [facility] [address] [id number] [place] [address] 07 Dec, 2012 [facility] [address] [id number] [place] [address] 06 Dec, 2012 [facility] [address] [id number] [place] [address] 16 Nov, 2012 [facility] [address] [id number] [place] [address] November, [facility] [address] [id number] [place] [address] Oct, [facility] [address] [id number] [place] [address] Sep, [facility] [address] [id number] [place] [address] 08 Sep, 2012 [facility] [id number] [place] [address] 14 Aug, 2012 [facility] [address] [id number] [place] [address] 13 Aug, 2012 [facility] [address] [id number] [place] [address] Jul, [facility] [address] [id number] [place] [address] Jul[facility] [address] [id number] [place] [address] Jul, [facility] [address] [id number] [place] [address] Jun, [facility] [address] [id number] [place] [address] Jun, [facility] [address] [id number] [place] [address] Jun, [facility] [address] [id number] [place] [address] Jun, [facility] [address] [id number] [place] [address] May, [facility] [facility] [address] [id number] [place] [address] May, [facility] [address] [id number] [place] [address] May, [facility] [address] [id number] [place] [address] May, [facility] [address] [id number] [place] [address] May, [facility] [address] [id number] [place] [address] May, [facility] [address] [id number] [place] [address] May, [facility] [address] [id number] [place] [address] 15 Apr, 2012 [facility] [address] [id number] [place] [address] Apr, [facility] [address] [id number] [place] [address] Apr, [facility] [address] [id number] [place] [address] Apr, [facility] [address] [id number] [place] [address] Apr, [facility] [address] [id number] [place] [address] Apr, [facility] [address] [id number] [place] [address] Apr, [facility] [address] [id number] [place] [address] Apr, [facility] [address] [id number] [place] [address] Jan, [facility] [address] [id number] [place] [address] Jan, [facility] [address] [id number] [place] [address] 06 Dec, 2011 [facility] [address] [id number] [place] [address] November, [facility] [address] [id number] [place] [address] 27 Oct, 2011 [facility] [address] [id number] [place] [address] Oct, [facility] [address] [id number] [place] [address] Oct, [facility] [address] [id number] [place] [address] Oct, [facility] [address] [id number] [place] [address] Sep, [facility] [address] [id number] [place] [address] Sep, [facility] [address] [id number] [place] [address] Sep, [facility] [address] [id number] [place] [address] Jun, [facility] [address] [id number] [place] [address] Jun, [facility] [address] [id number] [place] [address] May, [facility] [address] [id number] [place] [address] 14 Jan, 2011 [facility] [address] [id number] [place] [address] November, [facility] [address] [id number] [place] [address] 14 Oct, 2010 [facility] [address] [id number] [place] [address] 16 Sep, 2010 [facility] [address] [id number] [place] [address] May, [facility] [address] [id number] [place] [address] Jul, [facility] [address] [id number] [place] [address] Jun, [facility] [address] [id number] [place] [address] Jun, [facility] [id number] [place] [address] Jun, [facility] [address] [id number] [place] [address] Jun, [facility] [id number] [place] [address] May, [facility] [address] [id number] [place] [address] May, [facility] [id number] [place] [address] Apr, [facility] [address] [id number] [place] [address] Apr, [facility] [id number] [place] [address] Apr, IMMUNIZATIONS No Known Immunizations SOCIAL HISTORY [...] right 06/1996 Surgical History multiple knee injections ([id number]) Surgical History left knee replacement 06/11 Hospitalization History Knee surgery- x 3 days 06/11
--- OUTSIDE RECORDS SUMMARY | 2019-12-16 20:26 | XMS REPORT ---
Author Author Patti Guzman Doctor Organization [facility] Address Unknown Phone Unavailable Care Team Providers Care Tube Blower Name Role Phone Migration, Doctor Unavailable Unavailable PROBLEMS Type Condition ICD9-CM Code VEN21-DS Code Onset Dates Condition S tatus SNOMED Code Problem ADD (attention deficit disorder) F90.0 Active 147613530 Problem Drug abuse counseling and surveillance of drug abuser Z71.51 Active 185646003 Problem Insomnia G47.00 Active 841650387 Problem Joint pain M25.50 Active 45888148 Problem Edema, unspecified type R60.9 Active 571015648 Problem Episode of recurrent major d epressive disorder, unspecified depression episode severity F33.9 Active 441829948 Problem Venous insufficiency (chronic) (peripheral) I87.2 Active [id number] Problem Carpal tunnel syndrome on left G56.02 Active 137873844181271 Problem Manic bipolar I disorder in partial remission F31. 73 Active 63349634 Problem Bipolar affective disorder, currently depressed, moderate F31.32 Active 640356804 Problem Social anxiety disorder F40.10 Active 90470352 Problem Other chronic pain G89.29 Active 8 3873830 Problem Stimulant abuse F15.10 Active 4415 99300 Problem Bipolar II disorder F31.81 Active 39008857 Problem ADD (attention deficit disorder) without hyperactivity F98.8 Active 42583324 ALLERGIES No Information ENCOUNTERS Encounter Location Date Diagnosis [facility] [address] [id number] [place] [address] Aug, [facility] [address] [id number] [place] [address] Jul, [facility] [id number] [place] [address] Apr, [facility] [address] [id number] [place] [address] Apr, Bipolar II disorder F31.81 and Social an xiety disorder F40.10 [place] [address] [address] Jan, Bipolar affective disorder, currently de pressed, moderate F31.32 [place] [address] [address] Jan, Bipolar affective disorder, currently de pressed, moderate F31.32 ; Social anxiety disorder F40.10 and Morbid obesity E66.01 [place] [address] [address] May, Screening for lipid disorders Z13.220 [place] [address] [address] May, Carpal tunnel syndrome on left G56.02 ; Social anxiety disorder F40.10 and Screening for lipid disorders Z13.220 [place] [address] [address] 11 Apr, 2018 Bipolar II disorder F31.81 ; Social anxi ety disorder F40.10 ; ADD (attention deficit disorder) without hyperactivity F98.8 and BMI 45.0-49.9, adult Z68.[address] [address] 05 Mar, 2018 [place] [address] [address] Feb, BMI 45.0-49.9, adult Z68.42 ; Carpal sylvia martha syndrome on left G56.02 and Social anxiety disorder F40.10 [place] [address] [address] Jan, Bipolar II disorder F31.81 ; ADD (attent ion deficit disorder) without hyperactivity F98.8 ; Social anxiety disorder F40.10 and Stimulant abuse F15.[address] [address] Dec, Episode of recurrent major depressive di sorder, unspecified depression episode severity F33.9 ; Other chronic pain G89.29 ; Radiculopathy, lumbar region M54.16 ; Edema of lower extremity R60.0 and BMI 45.0-49.9, adult Z68.42 [facility] [address] [address] Jun, [facility] [address] [address] Jan, Joint pain M25.50 [facility] [address] [address] Jan, Wellness examination Z00.00 ; Pain in ri ght knee M25.561 ; Pain in left knee M25.562 ; Edema, unspecified type R60.9 and Drug abuse counseling and surveillance of drug abuser Z71.51 [place] [address] [address] November, [place] [address] [address] Oct, [place] [address] [address] Oct, ADD (attention deficit disorder) F90.0 ; Social anxiety disorder F40.10 and Manic bipolar I disorder in partial remission F31.73 [place] [address] [address] Aug, [facility] [address] [address] Aug, [facility] [address] [address] Aug, [facility] [address] [address] Jul, [facility] [address] [address] Jul, [facility] [address] [address] Jul, [facility] [address] [address] Jun, [facility] [address] [address] Jun, [facility] [address] [address] Jun, [facility] [address] [address] Jun, [facility] [address] [address] May, Joint pain M25.50 ; ADD (attention defic it disorder) F90.0 ; Edema R60.9 and Insomnia G47.00 [facility] [address] [address] May, [facility] [address] [address] May, [facility] [address] [address] May, [facility] [address] [address] May, Left wrist pain M25.532 ; Sinusitis J32. 9 and Drug abuse counseling and surveillance of drug abuser Z71.51 [facility] [address] [address] Apr, [facility] [address] [address] Apr, [facility] [address] [address] Apr, [facility] [address] [address] Apr, [facility] [address] [address] Apr, [facility] [address] [address] Apr, [facility] [address] [address] Apr, [facility] [address] [address] Mar, Unspecified venous (peripheral) insuffic iency 459.81 ; Bipolar I disorder, most recent episode (or current) manic, moderate 296.42 ; Social phobia 300.23 ; Attention deficit disorder of childhood without mention of hyperactivity 314.00 ; Pain in joint, lower leg 719.46 ; Thrombosis 453.9 and Chronic pain 338.29 [facility] [address] [address] Mar, [facility] [address] [address] Mar, [facility] [address] [address] Mar, [facility] [address] [address] Mar, [facility] [address] [address] 17 Mar, 2015 [facility] [address] [address] Mar, [facility] [address] [address] 10 Mar, 2015 Manic bipolar I disorder in partial josephine ssion 296.45 ; Social phobia 300.23 and Attention deficit disorder of childhood without mention of hyperactivity 314.00 [facility] [address] [address] Mar, [facility] [address] [address] Feb, [facility] [address] [address] Feb, Thrombosis 453.9 ; Unspecified venous (p eripheral) insufficiency 459.81 ; Bipolar I disorder, most recent episode (or current) manic, moderate 296.42 ; Social phobia 300.23 ; Attention deficit disorder of childhood without mention of hyperactivity 314.00 ; Pain in joint, lower leg 719.46 and Edema 782.3 [facility] [address] [address] Feb, [facility] [address] [address] Feb, Social phobia 300.23 ; Attention deficit disorder of childhood without mention of hyperactivity 314.00 and Bipolar I disorder, most recent episode manic, in partial remission 296.45 [facility] [address] [address] Jan, [facility] [address] [address] Jan, [facility] [address] [address] Jan, Unspecified venous (peripheral) insuffic iency 459.81 and Thrombophlebitis 451.9 [facility] [address] [address] Jan, [facility] [address] [address] Dec, Headache 784.0 and Back pain 724.5 [facility] [address] [address] Dec, [facility] [address] [address] Dec, Bipolar I disorder, most recent episode (or current) manic, moderate 296.42 ; Attention deficit disorder of childhood without mention of hyperactivity 314.00 and Social phobia 300.23 [facility] [address] [address] November, [facility] [address] [address] November, [facility] [address] [address] Oct, [facility] [address] [facility] [id number] [place] [address] Oct, [facility] [address] [id number] [place] [address] Sep, [facility] [address] [id number] [place] [address] Sep, [facility] [address] [id number] [place] [address] Aug, [facility] [address] [facility] [id number] [place] [address] Aug, [facility] [address] [id number] [place] [address] Aug, [facility] [address] [id number] [place] [address] Aug, [facility] [address] [id number] [place] [address] Aug, [facility] [address] [id number] [place] [address] Aug, [facility] [address] [id number] [place] [address] Aug, [facility] [address] [id number] [place] [address] Jul, [facility] [address] [id number] [place] [address] Jul, [facility] [address] [id number] [place] [address] Jun, [facility] [address] [id number] [place] [address] Jun, [facility] [address] [id number] [place] [address] May, [facility] [address] [id number] [place] [address] May, [facility] [address] [id number] [place] [address] May, [facility] [address] [id number] [place] [address] May, [facility] [address] [id number] [place] [address] May, [facility] [address] [id number] [place] [address] May, [facility] [address] [id number] [place] [address] Apr, [facility] [address] [id number] [place] [address] Apr, [facility] [address] [id number] [place] [address] Apr, [facility] [address] [id number] [place] [address] Apr, [facility] [address] [id number] [place] [address] 22 Mar, 2014 [facility] [address] [id number] [place] [address] 22 Mar, 2014 [facility] [address] [id number] [place] [address] 19 Mar, 2014 [facility] [address] [id number] [place] [address] 16 Mar, 2013 [facility] [address] [id number] [place] [address] 16 Mar, 2013 [facility] [address] [id number] [place] [address] 15 Sep, 2013 [facility] [address] [id number] [place] [address] 11 Mar, 2013 [facility] [address] [id number] [place] [address] 11 Mar, 2013 [facility] [address] [id number] [place] [address] 11 Mar, 2013 [facility] [address] [id number] [place] [address] 11 Mar, 2013 [facility] [address] [facility] [id number] [place] [address] Mar, 2013 [facility] [address] [facility] [id number] [place] [address] Mar, 2013 [facility] [address] [id number] [place] [address] Mar, 2013 [facility] [address] [facility] [id number] [place] [address] Mar, 2013 [facility] [address] [id number] [place] [address] Mar, [facility] [address] [id number] [place] [address] Feb, [facility] [address] [id number] [place] [address] Feb, [facility] [address] [id number] [place] [address] Feb, [facility] [address] [id number] [place] [address] Feb, [facility] [address] [id number] [place] [address] Feb, [facility] [address] [id number] [place] [address] Feb, [facility] [address] [id number] [place] [address] Feb, [facility] [address] [facility] [id number] [place] [address] Feb, [facility] [address] [id number] [place] [address] Feb, [facility] [address] [id number] [place] [address] Feb, [facility] [address] [id number] [place] [address] Feb, 2013 [facility] [address] [id number] [facility] [place] [address] Feb, [facility] [address] [facility] [id number] [facility] [place] [address] Feb, [facility] [address] [facility] [id number] [facility] [address] Feb, [facility] [address] [id number] [facility] [address] Jan, [facility] [address] [facility] [id number] [facility] [place] [address] Jan, [facility] [address] [facility] [id number] [facility] [place] [address] Jan, [facility] [address] [id number] [place] [address] Jan, [facility] [address] [id number] [place] [address] Jan, [facility] [address] [facility] [id number] [place] [address] Jan, [facility] [address] [id number] [place] [address] Jan, [facility] [address] [id number] [place] [address] Dec, [facility] [address] [id number] [place] [address] Dec, [facility] [address] [facility] [id number] [place] [address] Dec, [facility] [address] [id number] [place] [address] Dec, [facility] [address] [facility] [id number] [place] [address] Dec, [facility] [address] [id number] [place] [address] Dec, [facility] [address] [id number] [place] [address] Dec, [facility] [address] [id number] [place] [address] Dec, [facility] [address] [id number] [place] [address] Dec, [facility] [address] [id number] [place] [address] November, [facility] [address] [id number] [place] [address] November, [facility] [address] [id number] [place] [address] November, [facility] [address] [id number] [place] [address] November, [facility] [address] [id number] [place] [address] November, [facility] [address] [id number] [place] [address] November, [facility] [address] [id number] [place] [address] November, [facility] [address] [id number] [place] [address] November, [facility] [address] [id number] [place] [address] November, [facility] [address] [id number] [place] [address] November, [facility] [address] [id number] [place] [address] November, [facility] [address] [id number] [place] [address] November, [facility] [address] [id number] [place] [address] November, [facility] [address] [id number] [place] [address] November, [facility] [address] [id number] [place] [address] Oct, [facility] [address] [id number] [place] [address] Oct, [facility] [address] [id number] [place] [address] Oct, [facility] [address] [id number] [place] [address] Oct, [facility] [address] [id number] [place] [address] Oct, [facility] [address] [id number] [place] [address] Oct, [facility] [address] [id number] [place] [address] Sep, [facility] [address] [id number] [place] [address] Sep, [facility] [address] [id number] [place] [address] Sep, [facility] [address] [id number] [place] [address] Sep, [facility] [address] [id number] [place] [address] Aug, [facility] [address] [id number] [place] [address] Aug, [facility] [address] [id number] [place] [address] Aug, [facility] [address] [id number] [place] [address] Aug, [facility] [address] [id number] [place] [address] Jul, [facility] [address] [id number] [place] [address] Jul, [facility] [address] [id number] [place] [address] Jul, [facility] [address] [facility] [id number] [place] [address] Jul, [facility] [address] [id number] [place] [address] Jul, [facility] [address] [id number] [place] [address] Jul, [facility] [address] [id number] [place] [address] Jul, [facility] [address] [id number] [place] [address] Jun, [facility] [address] [id number] [place] [address] Jun, [facility] [address] [id number] [place] [address] 17 Jun, 2013 [facility] [address] [id number] [place] [address] 17 Jun, 2013 [facility] [address] [id number] [place] [address] Jun, [facility] [address] [id number] [place] [address] Jun, [facility] [address] [id number] [place] [address] 07 May, 2013 [facility] [address] [id number] [place] [address] 07 May, 2013 [facility] [address] [id number] [place] [address] 15 Apr, 2013 [facility] [address] [id number] [place] [address] 15 Apr, 2013 [facility] [address] [id number] [place] [address] 10 Apr, 2013 [facility] [address] [id number] [place] [address] 10 Apr, 2013 [facility] [address] [facility] [id number] [place] [address] 08 Apr, 2013 [facility] [address] [facility] [id number] [place] [address] 24 Mar, 2013 [facility] [address] [facility] [id number] [place] [address] 19 Mar, 2013 [facility] [address] [id number] [place] [address] 12 Mar, 2013 [facility] [address] [id number] [place] [address] 10 Mar, 2013 [facility] [address] [id number] [place] [address] Feb, [facility] [address] [id number] [place] [address] Feb, [facility] [address] [id number] [place] [address] Jan, [facility] [address] [id number] [place] [address] Jan, [facility] [address] [id number] [place] [address] Jan, [facility] [address] [id number] [place] [address] Jan, [facility] [address] [id number] [place] [address] Dec, [facility] [address] [id number] [place] [address] Dec, [facility] [address] [id number] [place] [address] Dec, [facility] [address] [id number] [place] [address] Dec, [facility] [address] [id number] [place] [address] November, [facility] [address] [id number] [place] [address] November, [facility] [address] [id number] [place] [address] 18 Oct, 2012 [facility] [address] [id number] [place] [address] Sep, [facility] [address] [id number] [place] [address] 08 Sep, 2012 [facility] [id number] [place] [address] 14 Aug, 2012 [facility] [address] [id number] [place] [address] 13 Aug, 2012 [facility] [address] [id number] [place] [address] Jul, [facility] [address] [id number] [place] [address] Jul, [facility] [id number] [place] [address] Jul, [facility] [address] [id number] [place] [address] Jun, [facility] [id number] [place] [address] Jun, [facility] [address] [id number] [place] [address] Jun, [facility] [id number] [place] [address] Jun, [facility] [address] [id number] [place] [address] May, [facility] [address] [id number] [place] [address] May, [facility] [address] [id number] [place] [address] 19 May, 2012 [facility] [id number] [place] [address] 14 May, 2012 [facility] [address] [id number] [place] [address] 14 May, 2012 [facility] [address] [id number] [place] [address] May, [facility] [address] [id number] [place] [address] May, [facility] [address] [id number] [place] [address] Apr, [facility] [address] [id number] [place] [address] Apr, [facility] [address] [id number] [place] [address] Apr, [facility] [address] [id number] [place] [address] Apr, [facility] [address] [id number] [place] [address] Apr, [facility] [address] [id number] [place] [address] Apr, [facility] [address] [id number] [place] [address] Apr, [facility] [address] [id number] [place] [address] Apr, [facility] [address] [id number] [place] [address] Jan, [facility] [address] [id number] [place] [address] Jan, [facility] [address] [id number] [place] [address] Dec, [facility] [address] [id number] [place] [address] November, [facility] [address] [id number] [place] [address] Oct, [facility] [address] [id number] [place] [address] Oct, [facility] [address] [id number] [place] [address] 03 Oct, 2011 [facility] [address] [id number] [place] [address] Oct, [facility] [address] [id number] [place] [address] Sep, [facility] [address] [id number] [place] [address] Sep, [facility] [address] [id number] [place] [address] Sep, [facility] [address] [id number] [place] [address] Jun, [facility] [address] [id number] [place] [address] 13 Jun, 2011 [facility] [address] [id number] [place] [address] 22 May, 2011 [facility] [address] [id number] [place] [address] 14 Jan, 2011 [facility] [address] [id number] [place] [address] November, [facility] [address] [id number] [place] [address] 14 Oct, 2010 [facility] [address] [id number] [place] [address] 16 Sep, 2010 [facility] [address] [id number] [place] [address] 30 May, 2010 [facility] [address] [id number] [place] [address] Jul, [facility] [address] [id number] [place] [address] Jun, [facility] [address] [id number] [place] [address] Jun, [facility] [address] [id number] [place] [address] Jun, [facility] [address] [id number] [place] [address] Jun, [facility] [address] [id number] [place] [address] May, [facility] [address] [id number] [place] [address] May, [facility] [address] [id number] [place] [address] Apr, [facility] [address] [id number] [place] [address] Apr, [facility] [address] [id number] [place] [address] Apr, IMMUNIZATIONS No Known Immunizations SOCIAL HISTORY [...] right 06/1996 Surgical History multiple knee injections ([id number]) Surgical History left knee replacement 06/11 Hospitalization History Knee surgery- x 3 days 06/11
--- OUTSIDE RECORDS SUMMARY | 2019-12-16 20:26 | XMS REPORT ---
Author Author Patti HERNANDEZ Organization [facility] Address [address] [place] [address] Care Team Providers Care Biological Scientist Name Role Phone DARLING HERNANDEZ Unavailable PROBLEMS Type Condition ICD9-CM Code EOL19-DQ Code Onset Dates Condition S tatus SNOMED Code Problem ADD (attention deficit disorder) F90.0 Active 313321304 Problem Drug abuse counseling and surveillance of drug abuser Z71.51 Active 339002887 Problem Insomnia G47.00 Active 512844724 Problem Joint pain M25.50 Active 62659798 Problem Edema, unspecified type R60.9 Active 637477230 Problem Episode of recurrent major d epressive disorder, unspecified depression episode severity F33.9 Active 025031248 Problem Venous insufficiency (chronic) (peripheral) I87.2 Active [id number] Problem Carpal tunnel syndrome on left G56.02 Active 808380814965422 Problem Manic bipolar I disorder in partial remission F31. 73 Active 29358234 Problem Bipolar affective disorder, currently depressed, moderate F31.32 Active 605884772 Problem Social anxiety disorder F40.10 Active 73996876 Problem Other chronic pain G89.29 Active 8 7554948 Problem Stimulant abuse F15.10 Active 1775 56290 Problem Bipolar II disorder F31.81 Active 79982275 Problem ADD (attention deficit disorder) without hyperactivity F98.8 Active 35448163 ALLERGIES No Information ENCOUNTERS Encounter Location Date Diagnosis [facility] [address] [id number] [place] [address] Aug, [facility] [address] [id number] [place] [address] Jul, [facility] [address] [id number] [place] [address] Apr, [facility] [address] [address] Apr, Bipolar II disorder F31.81 and Social an xiety disorder F40.10 [place] [address] [address] Jan, Bipolar affective disorder, currently de pressed, moderate F31.32 [place] [address] [address] Jan, Bipolar affective disorder, currently de pressed, moderate F31.32 ; Social anxiety disorder F40.10 and Morbid obesity E66.01 [place] [address] [address] May, Screening for lipid disorders Z13.220 [place] [address] [address] May, Carpal tunnel syndrome on left G56.02 ; Social anxiety disorder F40.10 and Screening for lipid disorders Z13.220 [place] [address] [address] 11 Apr, 2018 Bipolar II disorder F31.81 ; Social anxi ety disorder F40.10 ; ADD (attention deficit disorder) without hyperactivity F98.8 and BMI 45.0-49.9, adult Z68.42 [place] [address] [address] 05 Mar, 2018 [place] [address] [address] Feb, BMI 45.0-49.9, adult Z68.42 ; Carpal sylvia martha syndrome on left G56.02 and Social anxiety disorder F40.10 [place] [address] [address] Jan, Bipolar II disorder F31.81 ; ADD (attent ion deficit disorder) without hyperactivity F98.8 ; Social anxiety disorder F40.10 and Stimulant abuse F15.10 [place] [address] [address] Dec, Episode of recurrent major depressive di sorder, unspecified depression episode severity F33.9 ; Other chronic pain G89.29 ; Radiculopathy, lumbar region M54.16 ; Edema of lower extremity R60.0 and BMI 45.0-49.9, adult Z68.42 [place] [address] [address] Jun, [place] [address] [address] Jan, Joint pain M25.50 [place] [address] [address] Jan, Wellness examination Z00.00 ; Pain in ri ght knee M25.561 ; Pain in left knee M25.562 ; Edema, unspecified type R60.9 and Drug abuse counseling and surveillance of drug abuser Z71.51 [place] [address] [address] November, [place] [address] [address] Oct, [place] [address] [address] Oct, ADD (attention deficit disorder) F90.0 ; Social anxiety disorder F40.10 and Manic bipolar I disorder in partial remission F31.73 [place] [address] [address] Aug, [place] [address] [address] Aug, [place] [address] [address] Aug, [place] [address] [address] Jul, [place] [address] [address] Jul, [place] [address] [address] Jul, [facility] [address] [address] Jun, [facility] [address] [address] Jun, [facility] [address] [address] Jun, [facility] [address] [address] Jun, [facility] [address] [address] May, Joint pain M25.50 ; ADD (attention defic it disorder) F90.0 ; Edema R60.9 and Insomnia G47.00 [facility] [address] [address] May, [facility] [address] [address] May, [facility] [address] [address] May, [facility] [address] [address] May, Left wrist pain M25.532 ; Sinusitis J32. 9 and Drug abuse counseling and surveillance of drug abuser Z71.51 [facility] [address] [address] Apr, [facility] [address] [address] Apr, [facility] [address] [address] Apr, [facility] [address] [address] Apr, [facility] [address] [address] Apr, [facility] [address] [address] Apr, [facility] [address] [address] Apr, [facility] [address] [place] [id number] Mar, Unspecified venous (peripheral) insuffic iency 459.81 ; Bipolar I disorder, most recent episode (or current) manic, moderate 296.42 ; Social phobia 300.23 ; Attention deficit disorder of childhood without mention of hyperactivity 314.00 ; Pain in joint, lower leg 719.46 ; Thrombosis 453.9 and Chronic pain 338.29 [facility] [address] [address] Mar, [facility] [address] [address] Mar, [facility] [address] [address] Mar, [facility] [address] [address] Mar, [facility] [address] [address] Mar, [facility] [address] [address] Mar, [facility] [address] [address] Mar, Manic bipolar I disorder in partial josephine ssion 296.45 ; Social phobia 300.23 and Attention deficit disorder of childhood without mention of hyperactivity 314.00 [facility] [address] [address] Mar, [facility] [address] [address] Feb, [facility] [address] [address] Feb, Thrombosis 453.9 ; Unspecified venous (p eripheral) insufficiency 459.81 ; Bipolar I disorder, most recent episode (or current) manic, moderate 296.42 ; Social phobia 300.23 ; Attention deficit disorder of childhood without mention of hyperactivity 314.00 ; Pain in joint, lower leg 719.46 and Edema 782.3 [facility] [address] [address] Feb, [facility] [address] [address] Feb, Social phobia 300.23 ; Attention deficit disorder of childhood without mention of hyperactivity 314.00 and Bipolar I disorder, most recent episode manic, in partial remission 296.45 [facility] [address] [address] Jan, [facility] [address] [address] Jan, [facility] [address] [address] Jan, Unspecified venous (peripheral) insuffic iency 459.81 and Thrombophlebitis 451.9 [place] [address] [address] Jan, [facility] [address] [address] Dec, Headache 784.0 and Back pain 724.5 [facility] [address] [address] Dec, [facility] [address] [address] Dec, Bipolar I disorder, most recent episode (or current) manic, moderate 296.42 ; Attention deficit disorder of childhood without mention of hyperactivity 314.00 and Social phobia 300.23 [facility] [address] [address] November, [facility] [address] [address] November, [facility] [address] [id number] [place] [address] Oct, [facility] [address] [id number] [place] [address] Oct, [facility] [address] [id number] [place] [address] Sep, [facility] [address] [id number] [place] [address] Sep, [facility] [address] [id number] [place] [address] Aug, [facility] [address] [id number] [place] [address] Aug, [facility] [address] [id number] [place] [address] Aug, [facility] [address] [id number] [place] [address] Aug, [facility] [address] [id number] [place] [address] Aug, [facility] [address] [id number] [place] [address] Aug, [facility] [address] [id number] [place] [address] Aug, [facility] [address] [id number] [place] [address] Jul, [facility] [address] [id number] [place] [address] Jul, [facility] [address] [id number] [place] [address] Jun, [facility] [address] [id number] [place] [address] Jun, [facility] [address] [id number] [place] [address] May, [facility] [address] [id number] [place] [address] May, [facility] [address] [facility] [id number] [place] [address] May, [facility] [address] [id number] [place] [address] May, [facility] [address] [id number] [place] [address] May, [facility] [address] [id number] [place] [address] May, [facility] [address] [id number] [place] [address] Apr, [facility] [address] [id number] [place] [address] Apr, [facility] [address] [id number] [place] [address] Apr, [facility] [address] [id number] [place] [address] Apr, [facility] [address] [id number] [place] [address] 22 Mar, 2014 [facility] [address] [id number] [place] [address] 22 Mar, 2014 [facility] [address] [id number] [place] [address] 19 Mar, 2013 [facility] [address] [id number] [place] [address] 16 Sep, 2013 [facility] [address] [id number] [place] [address] 16 Sep, 2013 [facility] [address] [id number] [place] [address] 15 Sep, 2013 [facility] [address] [id number] [place] [address] 11 Mar, 2013 [facility] [address] [id number] [place] [address] 11 Mar, 2013 [facility] [address] [id number] [place] [address] 11 Mar, 2013 [facility] [address] [facility] [id number] [place] [address] 11 Mar, 2013 [facility] [address] [facility] [id number] [place] [address] 10 Mar, 2013 [facility] [address] [id number] [place] [address] Mar, 2013 [facility] [address] [facility] [id number] [place] [address] Mar, 2013 [facility] [address] [facility] [id number] [place] [address] Mar, 2013 [facility] [address] [id number] [place] [address] Mar, 2013 [facility] [address] [id number] [place] [address] Feb, [facility] [address] [id number] [place] [address] Feb, [facility] [address] [id number] [place] [address] Feb, [facility] [address] [id number] [place] [address] Feb, [facility] [address] [id number] [place] [address] Feb, [facility] [address] [id number] [place] [address] Feb, [facility] [address] [facility] [id number] [place] [address] Feb, [facility] [address] [id number] [place] [address] Feb, [facility] [address] [id number] [place] [address] Feb, [facility] [address] [id number] [place] [address] Feb, [facility] [address] [id number] [place] [address] Feb, 2013 [facility] [address] [facility] [id number] [facility] [place] [address] Feb, 2013 [facility] [address] [facility] [id number] [place] [address] Feb, 2013 [facility] [address] [facility] [id number] [facility] [place] [address] Feb, 2013 [facility] [address] [facility] [id number] [facility] [place] [address] Jan, 2013 [facility] [address] [facility] [id number] [place] [address] Jan, 2013 [facility] [address] [id number] [place] [address] Jan, 2013 [facility] [address] [id number] [place] [address] Jan, [facility] [address] [facility] [id number] [place] [address] Jan, [facility] [address] [id number] [place] [address] Jan, [facility] [address] [id number] [place] [address] Jan, [facility] [address] [id number] [place] [address] Dec, [facility] [address] [facility] [id number] [place] [address] Dec, [facility] [address] [id number] [place] [address] Dec, [facility] [address] [id number] [place] [address] Dec, [facility] [address] [id number] [place] [address] Dec, 2013 [facility] [address] [id number] [facility] [place] [address] Dec, [facility] [address] [id number] [facility] [place] [address] Dec, [facility] [address] [facility] [id number] [place] [address] Dec, [facility] [address] [id number] [place] [address] Dec, [facility] [address] [id number] [place] [address] November, [facility] [address] [facility] [id number] [place] [address] November, [facility] [address] [id number] [place] [address] November, [facility] [address] [id number] [place] [address] November, [facility] [address] [id number] [place] [address] November, [facility] [address] [id number] [place] [address] November, [facility] [address] [id number] [place] [address] November, [facility] [address] [id number] [place] [address] November, [facility] [address] [id number] [place] [address] November, [facility] [address] [id number] [place] [address] November, [facility] [address] [id number] [place] [address] November, [facility] [address] [id number] [place] [address] November, [facility] [address] [id number] [place] [address] November, [facility] [address] [id number] [place] [address] November, [facility] [address] [id number] [place] [address] Oct, [facility] [address] [id number] [place] [address] Oct, [facility] [address] [id number] [place] [address] Oct, [facility] [address] [id number] [place] [address] Oct, [facility] [address] [id number] [place] [address] Oct, [facility] [address] [id number] [place] [address] Oct, [facility] [address] [id number] [place] [address] Sep, [facility] [address] [id number] [place] [address] Sep, [facility] [address] [id number] [place] [address] Sep, [facility] [address] [id number] [place] [address] Sep, [facility] [address] [id number] [place] [address] Aug, [facility] [address] [id number] [place] [address] Aug, [facility] [address] [id number] [place] [address] Aug, [facility] [address] [id number] [place] [address] Aug, [facility] [address] [id number] [place] [address] Jul, [facility] [address] [id number] [place] [address] Jul, [facility] [address] [id number] [place] [address] Jul, [facility] [address] [id number] [place] [address] Jul, [facility] [address] [id number] [place] [address] 15 Jul, 2013 [facility] [address] [id number] [place] [address] Jul, [facility] [address] [facility] [id number] [place] [address] Jul, [facility] [address] [id number] [place] [address] Jun, [facility] [address] [id number] [place] [address] Jun, [facility] [address] [id number] [place] [address] 17 Jun, 2013 [facility] [address] [id number] [place] [address] 17 Jun, 2013 [facility] [address] [id number] [place] [address] Jun, [facility] [address] [id number] [place] [address] Jun, [facility] [address] [id number] [place] [address] 07 May, 2013 [facility] [address] [id number] [place] [address] May, [facility] [address] [id number] [place] [address] 15 Apr, 2013 [facility] [address] [id number] [place] [address] 15 Apr, 2013 [facility] [address] [id number] [place] [address] 10 Apr, 2013 [facility] [address] [id number] [place] [address] 10 Apr, 2013 [facility] [address] [facility] [id number] [place] [address] Apr, [facility] [address] [id number] [place] [address] 24 Mar, 2013 [facility] [address] [id number] [place] [address] Mar, [facility] [address] [id number] [place] [address] Mar, [facility] [address] [id number] [place] [address] Mar, [facility] [address] [id number] [place] [address] Feb, [facility] [address] [id number] [place] [address] Feb, [facility] [address] [id number] [place] [address] Jan, [facility] [address] [id number] [place] [address] Jan, [facility] [address] [id number] [place] [address] Jan, [facility] [address] [id number] [place] [address] Jan, [facility] [address] [id number] [place] [address] Dec, [facility] [address] [id number] [place] [address] Dec, [facility] [address] [id number] [place] [address] Dec, [facility] [address] [id number] [place] [address] Dec, [facility] [address] [id number] [place] [address] November, [facility] [address] [id number] [place] [address] November[facility] [address] [id number] [place] [address] Oct, [facility] [address] [id number] [place] [address] Sep, [facility] [id number] [place] [address] 08 Sep, 2012 [facility] [address] [id number] [place] [address] 14 Aug, 2012 [facility] [address] [id number] [place] [address] Aug, [facility] [address] [id number] [place] [address] Jul, [facility] [id number] [place] [address] Jul, [facility] [address] [id number] [place] [address] Jul, [facility] [id number] [place] [address] Jun, [facility] [address] [id number] [place] [address] Jun, [facility] [id number] [place] [address] Jun, [facility] [address] [id number] [place] [address] 15 Jun, 2012 [facility] [address] [id number] [place] [address] May, [facility] [address] [id number] [place] [address] May, [facility] [address] [id number] [place] [address] May, [facility] [address] [id number] [place] [address] 14 May, 2012 [facility] [address] [id number] [place] [address] 14 May, 2012 [facility] [address] [id number] [place] [address] May, [facility] [address] [id number] [place] [address] May, [facility] [address] [id number] [place] [address] Apr, [facility] [address] [id number] [place] [address] Apr, [facility] [address] [id number] [place] [address] Apr, [facility] [address] [id number] [place] [address] Apr, [facility] [address] [id number] [place] [address] Apr, [facility] [address] [id number] [place] [address] Apr, [facility] [address] [id number] [place] [address] Apr, [facility] [address] [id number] [place] [address] Apr, [facility] [address] [id number] [place] [address] Jan, [facility] [address] [id number] [place] [address] Jan, [facility] [address] [id number] [place] [address] Dec, [facility] [address] [id number] [place] [address] November, [facility] [address] [id number] [place] [address] Oct, [facility] [address] [id number] [place] [address] 10 Oct, 2011 [facility] [address] [id number] [place] [address] 03 Oct, 2011 [facility] [address] [id number] [place] [address] 02 Oct, 2011 [facility] [address] [id number] [place] [address] 26 Sep, 2011 [facility] [address] [id number] [place] [address] Sep, [facility] [address] [id number] [place] [address] Sep, [facility] [address] [id number] [place] [address] 13 Jun, 2011 [facility] [address] [id number] [place] [address] 13 Jun, 2011 [facility] [address] [id number] [place] [address] 22 May, 2011 [facility] [address] [id number] [place] [address] 14 Jan, 2011 [facility] [address] [id number] [place] [address] 19 Nov, 2010 [facility] [address] [id number] [place] [address] 14 Oct, 2010 [facility] [address] [id number] [place] [address] 16 Sep, 2010 [facility] [address] [id number] [place] [address] 30 May, 2010 [facility] [address] [id number] [place] [address] Jul, [facility] [address] [id number] [place] [address] Jun, [facility] [address] [id number] [place] [address] Jun, [facility] [address] [id number] [place] [address] Jun, [facility] [address] [id number] [place] [address] Jun, [facility] [address] [id number] [place] [address] May, [facility] [address] [id number] [place] [address] May, [facility] [address] [id number] [place] [address] Apr, [facility] [address] [id number] [place] [address] Apr, [facility] [address] [id number] [place] [address] Apr, IMMUNIZATIONS No Known Immunizations SOCIAL HISTORY [...] right 06/1996 Surgical History multiple knee injections ([id number]) Surgical History left knee replacement 06/11 Hospitalization History Knee surgery- x 3 days 06/11
--- OUTSIDE RECORDS SUMMARY | 2019-12-16 20:26 | XMS REPORT ---
Author Author Patti Guzman Doctor Organization [facility] Address Unknown Phone Unavailable Care Team Providers Care Unix Manager Name Role Phone Migration, Doctor Unavailable Unavailable PROBLEMS Type Condition ICD9-CM Code KCT10-HZ Code Onset Dates Condition S tatus SNOMED Code Problem ADD (attention deficit disorder) F90.0 Active 551658613 Problem Drug abuse counseling and surveillance of drug abuser Z71.51 Active 587905177 Problem Insomnia G47.00 Active 246708937 Problem Joint pain M25.50 Active 45353391 Problem Edema, unspecified type R60.9 Active 118492401 Problem Episode of recurrent major d epressive disorder, unspecified depression episode severity F33.9 Active 148516139 Problem Venous insufficiency (chronic) (peripheral) I87.2 Active [id number] Problem Carpal tunnel syndrome on left G56.02 Active 890176257121424 Problem Manic bipolar I disorder in partial remission F31. 73 Active 18472234 Problem Bipolar affective disorder, currently depressed, moderate F31.32 Active 023523269 Problem Social anxiety disorder F40.10 Active 22329000 Problem Other chronic pain G89.29 Active 8 1385872 Problem Stimulant abuse F15.10 Active 4415 80591 Problem Bipolar II disorder F31.81 Active 56266863 Problem ADD (attention deficit disorder) without hyperactivity F98.8 Active [id number] ALLERGIES No Information ENCOUNTERS Encounter Location Date Diagnosis [facility] [id number] [place] [address] Aug, [facility] [id number] [place] [address] Jul, [facility] [id number] [place] [address] Apr, [facility] [id number] [place] [address] Apr, Bipolar II disorder F31.81 and Social an xiety disorder F40.10 [place] [address] [address] Jan, Bipolar affective disorder, currently de pressed, moderate F31.32 [place] [address] [address] Jan, Bipolar affective disorder, currently de pressed, moderate F31.32 ; Social anxiety disorder F40.10 and Morbid obesity E66.01 [place] [address] [address] May, Screening for lipid disorders Z13.220 [place] [address] [address] May, Carpal tunnel syndrome on left G56.02 ; Social anxiety disorder F40.10 and Screening for lipid disorders Z13.220 [place] [address] [address] 11 Apr, 2018 Bipolar II disorder F31.81 ; Social anxi ety disorder F40.10 ; ADD (attention deficit disorder) without hyperactivity F98.8 and BMI 45.0-49.9, adult Z68.[address] [address] 05 Mar, 2018 [place] [address] [address] Feb, BMI 45.0-49.9, adult Z68.42 ; Carpal sylvia martha syndrome on left G56.02 and Social anxiety disorder F40.10 [place] [address] [address] Jan, Bipolar II disorder F31.81 ; ADD (attent ion deficit disorder) without hyperactivity F98.8 ; Social anxiety disorder F40.10 and Stimulant abuse F15.[address] [address] Dec, Episode of recurrent major depressive di sorder, unspecified depression episode severity F33.9 ; Other chronic pain G89.29 ; Radiculopathy, lumbar region M54.16 ; Edema of lower extremity R60.0 and BMI 45.0-49.9, adult Z68.42 [facility] [address] [address] Jun, [facility] [address] [address] Jan, Joint pain M25.50 [facility] [address] [address] Jan, Wellness examination Z00.00 ; Pain in ri ght knee M25.561 ; Pain in left knee M25.562 ; Edema, unspecified type R60.9 and Drug abuse counseling and surveillance of drug abuser Z71.51 [place] [address] [address] November, [place] [address] [address] Oct, [place] [address] [address] Oct, ADD (attention deficit disorder) F90.0 ; Social anxiety disorder F40.10 and Manic bipolar I disorder in partial remission F31.73 [place] [address] [address] Aug, [facility] [address] [address] Aug, [facility] [address] [address] Aug, [facility] [address] [address] Jul, [facility] [address] [address] Jul, [facility] [address] [address] Jul, [facility] [address] [address] Jun, [facility] [address] [address] Jun, [facility] [address] [address] Jun, [facility] [address] [address] Jun, [facility] [address] [address] May, Joint pain M25.50 ; ADD (attention defic it disorder) F90.0 ; Edema R60.[address] [facility] [address] [address] May, [facility] [address] [address] May, [facility] [address] [address] May, [facility] [address] [address] May, Left wrist pain M25.532 ; Sinusitis J32. 9 and Drug abuse counseling and surveillance of drug abuser Z71.51 [facility] [address] [address] Apr, [facility] [address] [address] Apr, [facility] [address] [address] Apr, [facility] [address] [address] Apr, [facility] [address] [address] Apr, [facility] [address] [address] Apr, [facility] [address] [address] Apr, [facility] [address] [address] Mar, Unspecified venous (peripheral) insuffic iency 459.81 ; Bipolar I disorder, most recent episode (or current) manic, moderate 296.42 ; Social phobia 300.23 ; Attention deficit disorder of childhood without mention of hyperactivity 314.00 ; Pain in joint, lower leg 719.46 ; Thrombosis 453.[address] [facility] [address] [address] Mar, [facility] [address] [address] Mar, [facility] [address] [address] Mar, [facility] [address] [address] Mar, [facility] [address] [address] 17 Mar, 2015 [facility] [address] [address] Mar, [facility] [address] [address] 10 Mar, 2015 Manic bipolar I disorder in partial josephine ssion 296.45 ; Social phobia 300.23 and Attention deficit disorder of childhood without mention of hyperactivity 314.00 [facility] [address] [address] Mar, [facility] [address] [address] Feb, [facility] [address] [address] Feb, Thrombosis 453.9 ; Unspecified venous (p eripheral) insufficiency 459.81 ; Bipolar I disorder, most recent episode (or current) manic, moderate 296.42 ; Social phobia 300.23 ; Attention deficit disorder of childhood without mention of hyperactivity 314.00 ; Pain in joint, lower leg 719.[address] [facility] [address] [address] Feb, [facility] [address] [address] Feb, Social phobia 300.23 ; Attention deficit disorder of childhood without mention of hyperactivity 314.00 and Bipolar I disorder, most recent episode manic, in partial remission 296.45 [facility] [address] [address] Jan, [facility] [address] [address] Jan, [facility] [address] [address] Jan, Unspecified venous (peripheral) insuffic iency 459.81 [address] 451.9 [facility] [address] [address] Jan, [facility] [address] [address] Dec, Headache 784.0 [address] Back pain [address]24.5 [facility] [address] [address] Dec, [facility] [address] [address] Dec, Bipolar I disorder, most recent episode (or current) manic, moderate 296.42 ; Attention deficit disorder of childhood without mention of hyperactivity 314.[address].23 [facility] [address] [address] November, [facility] [address] [address] November, [facility] [address] [address] Oct, [facility] [address] [facility] [id number] [place] [address] Oct, [facility] [address] [facility] [id number] [place] [address] Sep, [facility] [id number] [place] [address] Sep, [facility] [id number] [place] [address] Aug, [facility] [address] [facility] [id number] [place] [address] Aug, [facility] [id number] [place] [address] Aug, [facility] [id number] [place] [address] Aug, [facility] [id number] [place] [address] Aug, [facility] [id number] [place] [address] Aug, [facility] [id number] [place] [address] Aug, [facility] [id number] [place] [address] Jul, [facility] [id number] [place] [address] Jul, [facility] [id number] [place] [address] Jun, [facility] [id number] [place] [address] Jun, [facility] [id number] [place] [address] May, [facility] [address] [id number] [place] [address] May, [facility] [id number] [place] [address] May, [facility] [id number] [place] [address] May, [facility] [address] [facility] [id number] [place] [address] May, [facility] [address] [facility] [id number] [place] [address] May, [facility] [address] [facility] [id number] [place] [address] Apr, [facility] [address] [facility] [id number] [place] [address] Apr, [facility] [address] [facility] [id number] [place] [address] Apr, [facility] [address] [facility] [id number] [place] [address] Apr, [facility] [id number] [place] [address] 22 Mar, 2014 [facility] [address] [facility] [id number] [place] [address] 22 Mar, 2014 [facility] [address] [facility] [id number] [place] [address] 19 Mar, 2014 [facility] [address] [id number] [place] [address] 16 Mar, 2013 [facility] [address] [facility] [id number] [place] [address] 16 Mar, 2013 [facility] [address] [id number] [place] [address] 15 Sep, 2013 [facility] [id number] [place] [address] 11 Mar, 2013 [facility] [address] [facility] [id number] [place] [address] 11 Mar, 2013 [facility] [id number] [place] [address] 11 Mar, 2013 [facility] [address] [id number] [place] [address] 11 Mar, 2013 [facility] [address] [facility] [id number] [place] [address] Mar, 2013 [facility] [address] [facility] [id number] [place] [address] Mar, 2013 [facility] [id number] [place] [address] Mar, 2013 [facility] [address] [facility] [id number] [place] [address] Mar, 2013 [facility] [address] [id number] [place] [address] Mar, [facility] [address] [id number] [place] [address] Feb, [facility] [address] [facility] [id number] [place] [address] Feb, [facility] [address] [facility] [id number] [place] [address] Feb, [facility] [address] [id number] [place] [address] Feb, [facility] [address] [facility] [id number] [place] [address] Feb, [facility] [address] [facility] [id number] [place] [address] Feb, [facility] [address] [facility] [id number] [place] [address] Feb, [facility] [address] [facility] [id number] [place] [address] Feb, [facility] [address] [id number] [place] [address] Feb, [facility] [address] [facility] [id number] [place] [address] Feb, [facility] [address] [facility] [id number] [place] [address] Feb, 2013 [facility] [address] [id number] [facility] [place] [address] Feb, [facility] [address] [facility] [id number] [facility] [place] [address] Feb, [facility] [address] [facility] [id number] [facility] [place] [address] Feb, [facility] [address] [id number] [facility] [place] [address] Jan, [facility] [address] [facility] [id number] [facility] [place] [address] Jan, [facility] [address] [facility] [id number] [facility] [place] [address] Jan, [facility] [address] [facility] [id number] [place] [address] Jan, [facility] [address] [facility] [id number] [place] [address] Jan, [facility] [address] [facility] [id number] [place] [address] Jan, [facility] [address] [facility] [id number] [place] [address] Jan, [facility] [address] [facility] [id number] [place] [address] Dec, [facility] [address] [facility] [id number] [place] [address] Dec, [facility] [address] [facility] [id number] [place] [address] Dec, [facility] [address] [id number] [place] [address] Dec, [facility] [address] [facility] [id number] [place] [address] Dec, [facility] [address] [id number] [place] [address] Dec, [facility] [address] [facility] [id number] [place] [address] Dec, [facility] [address] [id number] [place] [address] Dec, [facility] [address] [facility] [id number] [place] [address] Dec, [facility] [address] [facility] [id number] [place] [address] November, [facility] [address] [facility] [id number] [place] [address] November, [facility] [address] [id number] [place] [address] November, [facility] [address] [id number] [place] [address] November, [facility] [address] [facility] [id number] [place] [address] November, [facility] [address] [facility] [id number] [place] [address] November, [facility] [address] [facility] [id number] [place] [address] November, [facility] [address] [id number] [place] [address] November, [facility] [address] [id number] [place] [address] November, [facility] [address] [id number] [place] [address] November, [facility] [address] [id number] [place] [address] November, [facility] [address] [id number] [place] [address] November, [facility] [address] [id number] [place] [address] November, [facility] [address] [id number] [place] [address] November, [facility] [address] [id number] [place] [address] Oct, [facility] [address] [id number] [place] [address] Oct, [facility] [address] [id number] [place] [address] Oct, [facility] [address] [id number] [place] [address] Oct, [facility] [address] [id number] [place] [address] Oct, [facility] [address] [id number] [place] [address] Oct, [facility] [address] [id number] [place] [address] Sep, [facility] [address] [id number] [place] [address] Sep, [facility] [address] [id number] [place] [address] Sep, [facility] [address] [id number] [place] [address] Sep, [facility] [address] [id number] [place] [address] Aug, [facility] [address] [id number] [place] [address] Aug, [facility] [address] [id number] [place] [address] Aug, [facility] [address] [id number] [place] [address] Aug, [facility] [address] [id number] [place] [address] Jul, [facility] [address] [id number] [place] [address] Jul, [facility] [address] [id number] [place] [address] Jul, [facility] [address] [facility] [id number] [place] [address] Jul, [facility] [address] [id number] [place] [address] Jul, [facility] [address] [id number] [place] [address] Jul, [facility] [address] [id number] [place] [address] Jul, [facility] [address] [id number] [place] [address] Jun, [facility] [address] [id number] [place] [address] Jun, [facility] [address] [id number] [place] [address] 17 Jun, 2013 [facility] [address] [id number] [place] [address] 17 Jun, 2013 [facility] [address] [id number] [place] [address] Jun, [facility] [address] [id number] [place] [address] Jun, [facility] [address] [id number] [place] [address] 07 May, 2013 [facility] [address] [id number] [place] [address] 07 May, 2013 [facility] [address] [id number] [place] [address] 15 Apr, 2013 [facility] [address] [id number] [place] [address] 15 Apr, 2013 [facility] [address] [id number] [place] [address] 10 Apr, 2013 [facility] [address] [id number] [place] [address] 10 Apr, 2013 [facility] [address] [facility] [id number] [place] [address] 08 Apr, 2013 [facility] [address] [facility] [id number] [place] [address] 24 Mar, 2013 [facility] [address] [facility] [id number] [place] [address] 19 Mar, 2013 [facility] [address] [id number] [place] [address] 12 Mar, 2013 [facility] [address] [id number] [place] [address] 10 Mar, 2013 [facility] [address] [id number] [place] [address] Feb, [facility] [address] [id number] [place] [address] Feb, [facility] [address] [id number] [place] [address] Jan, [facility] [address] [id number] [place] [address] Jan, [facility] [address] [id number] [place] [address] Jan, [facility] [address] [id number] [place] [address] Jan, [facility] [address] [id number] [place] [address] Dec, [facility] [address] [id number] [place] [address] Dec, [facility] [address] [id number] [place] [address] Dec, [facility] [address] [id number] [place] [address] Dec, [facility] [address] [id number] [place] [address] November, [facility] [address] [id number] [place] [address] November, [facility] [address] [id number] [place] [address] 18 Oct, 2012 [facility] [address] [id number] [place] [address] Sep, [facility] [address] [id number] [place] [address] 08 Sep, 2012 [facility] [id number] [place] [address] 14 Aug, 2012 [facility] [address] [id number] [place] [address] 13 Aug, 2012 [facility] [address] [id number] [place] [address] Jul, [facility] [address] [id number] [place] [address] Jul, [facility] [id number] [place] [address] Jul, [facility] [address] [id number] [place] [address] Jun, [facility] [id number] [place] [address] Jun, [facility] [address] [id number] [place] [address] Jun, [facility] [id number] [place] [address] Jun, [facility] [address] [id number] [place] [address] May, [facility] [address] [id number] [place] [address] May, [facility] [address] [id number] [place] [address] 19 May, 2012 [facility] [id number] [place] [address] 14 May, 2012 [facility] [address] [id number] [place] [address] 14 May, 2012 [facility] [address] [id number] [place] [address] May, [facility] [address] [id number] [place] [address] May, [facility] [address] [id number] [place] [address] Apr, [facility] [address] [id number] [place] [address] Apr, [facility] [address] [id number] [place] [address] Apr, [facility] [address] [id number] [place] [address] Apr, [facility] [address] [id number] [place] [address] Apr, [facility] [address] [id number] [place] [address] Apr, [facility] [address] [id number] [place] [address] Apr, [facility] [address] [id number] [place] [address] Apr, [facility] [address] [id number] [place] [address] Jan, [facility] [address] [id number] [place] [address] Jan, [facility] [address] [id number] [place] [address] Dec, [facility] [address] [id number] [place] [address] November, [facility] [address] [id number] [place] [address] Oct, [facility] [address] [id number] [place] [address] Oct, [facility] [address] [id number] [place] [address] 03 Oct, 2011 [facility] [address] [id number] [place] [address] Oct, [facility] [address] [id number] [place] [address] Sep, [facility] [address] [id number] [place] [address] Sep, [facility] [address] [id number] [place] [address] Sep, [facility] [address] [id number] [place] [address] Jun, [facility] [address] [id number] [place] [address] 13 Jun, 2011 [facility] [address] [id number] [place] [address] 22 May, 2011 [facility] [address] [id number] [place] [address] 14 Jan, 2011 [facility] [address] [id number] [place] [address] November, [facility] [address] [id number] [place] [address] 14 Oct, 2010 [facility] [address] [id number] [place] [address] 16 Sep, 2010 [facility] [address] [id number] [place] [address] 30 May, 2010 [facility] [address] [id number] [place] [address] Jul, [facility] [address] [id number] [place] [address] Jun, [facility] [address] [id number] [place] [address] Jun, [facility] [address] [id number] [place] [address] Jun, [facility] [address] [id number] [place] [address] Jun, [facility] [address] [id number] [place] [address] May, [facility] [address] [id number] [place] [address] May, [facility] [address] [id number] [place] [address] Apr, [facility] [id number] [place] [address] Apr, [facility] [id number] [place] [address] Apr, IMMUNIZATIONS No Known Immunizations SOCIAL HISTORY [...] right 06/1996 Surgical History multiple knee injections ([id number]) Surgical History left knee replacement 06/11 Hospitalization History Knee surgery- x 3 days 06/11
--- OUTSIDE RECORDS SUMMARY | 2019-12-16 20:26 | XMS REPORT ---
Author Author Patti Guzman Doctor Organization [facility] Address Unknown Phone Unavailable Care Team Providers Care Terrazzo Worker Name Role Phone Migration, Doctor Unavailable Unavailable PROBLEMS Type Condition ICD9-CM Code XMY87-[place] Code Onset Dates Condition S tatus SNOMED Code Problem ADD (attention deficit disorder) F90.0 Active 645593264 Problem Drug abuse counseling and surveillance of drug abuser Z71.51 Active 982721577 Problem Insomnia G47.00 Active 673605039 Problem Joint pain M25.50 Active 07109912 Problem Edema, unspecified type R60.9 Active 819546045 Problem Episode of recurrent major d epressive disorder, unspecified depression episode severity F33.9 Active 826061902 Problem Venous insufficiency (chronic) (peripheral) I87.2 Active 49995539705018129 Problem Carpal tunnel syndrome on left G56.02 Active [id number] Problem Manic bipolar I disorder in partial remission F31. 73 Active 28386407 Problem Bipolar affective disorder, currently depressed, moderate F31.32 Active 674988764 Problem Social anxiety disorder F40.10 Active 61577970 Problem Other chronic pain G89.29 Active 8 1607523 Problem Stimulant abuse F15.10 Active 4415 60224 Problem Bipolar II disorder F31.81 Active 89164239 Problem ADD (attention deficit disorder) without hyperactivity F98.8 Active 04646141 ALLERGIES No Information ENCOUNTERS Encounter Location Date Diagnosis [facility] [id number] [place] [address] Oct, [facility] [address] [address] Sep, [facility] [address] [address] Aug, [facility] [address] [facility] [place] [address] Aug, Bipolar II disorder F31.81 ; Social anxi ety disorder F40.10 and ADD (attention deficit disorder) F90.0 [address] [facility] [address] [address] Jul, [facility] [address] [address] Apr, [facility] [facility] [address] [address] Apr, Bipolar II disorder F31.81 and Social an xiety disorder F40.10 [facility] [address] [address] Jan, Bipolar affective disorder, currently de pressed, moderate F31.[address] [address] Jan, Bipolar affective disorder, currently de pressed, moderate F31.32 ; Social anxiety disorder F40.10 and Morbid obesity E66.01 [facility] [facility] [address] [address] May, Screening for lipid disorders Z13.220 [place] [address] [address] May, Carpal tunnel syndrome on left G56.02 ; Social anxiety disorder F40.10 and Screening for lipid disorders Z13.220 [place] [address] [address] 11 Apr, 2018 Bipolar II disorder F31.81 ; Social anxi ety disorder F40.10 ; ADD (attention deficit disorder) without hyperactivity F98.8 and BMI 45.0-49.9, adult Z68.42 [address] [address] [address] Mar, [address] [address] Feb, BMI 45.0-49.9, adult Z68.42 ; Carpal sylvia martha syndrome on left G56.02 and Social anxiety disorder F40.[address] [address] Jan, Bipolar II disorder F31.81 ; ADD (attent ion deficit disorder) without hyperactivity F98.8 ; Social anxiety disorder F40.10 and Stimulant abuse F15.10 [facility] [address] [address] Dec, Episode of recurrent major depressive di sorder, unspecified depression episode severity F33.9 ; Other chronic pain G89.29 ; Radiculopathy, lumbar region M54.16 ; Edema of lower extremity R60.0 and BMI 45.0-49.9, adult Z68.42 [facility] [address] [address] Jun, [facility] [facility] [address] [address] Jan, Joint pain M25.50 [place] [address] [address] Jan, Wellness examination Z00.00 ; Pain in ri ght knee M25.561 ; Pain in left knee M25.562 ; Edema, unspecified type R60.9 and Drug abuse counseling and surveillance of drug abuser Z71.51 [facility] [address] [address] November, [facility] [address] [address] Oct, [facility] [address] [address] Oct, ADD (attention deficit disorder) F90.0 ; Social anxiety disorder F40.10 and Manic bipolar I disorder in partial remission F31.73 [facility] [address] [address] Aug, [facility] [facility] [address] [address] Aug, [facility] [address] [address] Aug, [facility] [id number] [place] [address] Jul, [facility] [address] [address] Jul, [facility] [address] [address] Jul, [facility] [address] [address] Jun, [facility] [address] [address] Jun, [facility] [address] [address] Jun, [facility] [address] [address] Jun, [facility] [address] [address] May, Joint pain M25.50 ; ADD (attention defic it disorder) F90.0 ; Edema R60.9 and Insomnia G47.00 [facility] [address] [address] May, [facility] [address] [address] May, [facility] [address] [address] May, [facility] [address] [address] May, Left wrist pain M25.532 ; Sinusitis J32. 9 and Drug abuse counseling and surveillance of drug abuser Z71.51 [facility] [address] [address] Apr, [facility] [address] [address] Apr, [facility] [address] [address] Apr, [facility] [address] [address] Apr, [facility] [address] [address] Apr, [facility] [address] [address] Apr, [facility] [address] [address] Apr, [facility] [address] [address] Mar, Unspecified venous (peripheral) insuffic iency 459.81 ; Bipolar I disorder, most recent episode (or current) manic, moderate 296.42 ; Social phobia 300.23 ; Attention deficit disorder of childhood without mention of hyperactivity 314.00 ; Pain in joint, lower leg 719.46 ; Thrombosis 453.9 and Chronic pain 338.29 [facility] [address] [address] 18 Mar, 2015 [facility] [address] [address] 18 Mar, 2015 [facility] [address] [address] 18 Mar, 2015 [facility] [address] [address] 17 Mar, 2015 [facility] [address] [address] 17 Mar, 2015 [facility] [address] [address] 11 Mar, 2015 [facility] [address] [address] 10 Mar, 2015 Manic bipolar I disorder in partial josephine ssion 296.45 ; Social phobia 300.23 and Attention deficit disorder of childhood without mention of hyperactivity 314.00 [facility] [address] [address] Mar, [facility] [address] [address] Feb, [facility] [address] [address] Feb, Thrombosis 453.9 ; Unspecified venous (p eripheral) insufficiency 459.81 ; Bipolar I disorder, most recent episode (or current) manic, moderate 296.42 ; Social phobia 300.23 ; Attention deficit disorder of childhood without mention of hyperactivity 314.00 ; Pain in joint, lower leg 719.46 and Edema 782.3 [address] [address] [address] Feb, [facility] [address] [address] Feb, Social phobia 300.23 ; Attention deficit disorder of childhood without mention of hyperactivity 314.00 and Bipolar I disorder, most recent episode manic, in partial remission 296.45 [facility] [address] [address] Jan, [facility] [address] [address] Jan, [facility] [address] [address] Jan, Unspecified venous (peripheral) insuffic iency 459.81 and Thrombophlebitis 451.9 [facility] [address] [address] Jan, [facility] [address] [address] Dec, Headache 784.0 and Back pain 724.5 [facility] [address] [address] Dec, [facility] [address] [address] Dec, Bipolar I disorder, most recent episode (or current) manic, moderate 296.42 ; Attention deficit disorder of childhood without mention of hyperactivity 314.00 and Social phobia 300.23 [facility] [id number] [place] [address] November, [facility] [id number] [place] [address] November, [facility] [id number] [place] [address] Oct, [facility] [address] [address] Oct, [facility] [address] [address] Sep, [facility] [id number] [place] [address] Sep, [facility] [address] [address] Aug, [facility] [id number] [place] [address] Aug, [facility] [address] [address] Aug, [facility] [id number] [place] [address] Aug, [facility] [id number] [place] [address] Aug, [facility] [id number] [place] [address] Aug, [facility] [id number] [place] [address] Aug, [facility] [id number] [place] [address] Jul, [facility] [id number] [place] [address] Jul, [facility] [address] [place] [address] Jun, [facility] [place] [facility] [address] [id number] [place] [address] Jun, [facility] [place] [facility] [address] [id number] [place] [address] May, [facility] [place] [facility] [address] [id number] [place] [address] May, [facility] [place] [facility] [address] [id number] [place] [address] May, [facility] [place] [facility] [address] [id number] [place] [address] May, [facility] [place] [facility] [address] [id number] [place] [address] May, [facility] [place] [facility] [address] [id number] [place] [address] May, [facility] [place] [facility] [address] [id number] [place] [address] Apr, [facility] [place] [facility] [address] [id number] [place] [address] Apr, [facility] [place] [facility] [address] [id number] [place] [address] Apr, [facility] [place] [facility] [address] [id number] [place] [address] Apr, [facility] [place] [facility] [address] [id number] [place] [address] Mar, [facility] [place] [facility] [address] [id number] [place] [address] 22 Mar, 2014 [facility] [place] [facility] [address] [id number] [place] [address] 19 Mar, 2014 [facility] [place] [facility] [address] [id number] [place] [address] 16 Mar, 2014 [facility] [place] [facility] [address] [id number] [place] [address] 16 Mar, 2013 [facility] [place] [facility] [address] [id number] [place] [address] 15 Mar, 2013 [facility] [place] [facility] [address] [id number] [place] [address] 11 Mar, 2013 [facility] [place] [facility] [address] [facility] [id number] [place] [address] 11 Mar, 2013 [facility] [place] [facility] [address] [id number] [place] [address] 11 Mar, 2013 [facility] [place] [facility] [address] [facility] [id number] [place] [address] 11 Mar, 2013 [facility] [place] [facility] [address] [id number] [place] [address] 10 Mar, 2013 [facility] [place] [facility] [address] [id number] [place] [address] 09 Mar, 2013 [facility] [place] [facility] [address] [id number] [place] [address] 09 Mar, 2013 [facility] [place] [facility] [address] [id number] [place] [address] Mar, 2013 [facility] [place] [facility] [address] [id number] [place] [address] Mar, 2013 [facility] [place] [facility] [address] [id number] [place] [address] 29 Feb, 2014 [facility] [place] [facility] [address] [id number] [place] [address] Feb, [facility] [place] [facility] [address] [id number] [place] [address] Feb, [facility] [place] [facility] [address] [facility] [id number] [place] [address] Feb, [facility] [place] [facility] [address] [id number] [place] [address] Feb, [facility] [place] [facility] [address] [id number] [place] [address] Feb, [facility] [place] [facility] [address] [id number] [place] [address] Feb, 2013 [facility] [place] [facility] [address] [id number] [facility] [place] [address] Feb, 2013 [facility] [place] [facility] [address] [facility] [id number] [facility] [place] [address] Feb, [facility] [place] [facility] [address] [facility] [id number] [facility] [place] [address] Feb, 2013 [facility] [place] [facility] [address] [facility] [id number] [facility] [place] [address] Feb, 2013 [facility] [place] [facility] [address] [facility] [id number] [facility] [place] [address] Feb, 2013 [facility] [place] [facility] [address] [facility] [id number] [place] [address] Feb, [facility] [place] [facility] [address] [id number] [place] [address] Feb, [facility] [place] [facility] [address] [id number] [facility] [place] [address] Jan, 2013 [facility] [place] [facility] [address] [facility] [id number] [place] [address] Jan, 2013 [facility] [place] [facility] [address] [id number] [place] [address] Jan, [facility] [place] [facility] [address] [id number] [place] [address] Jan, 2013 [facility] [place] [facility] [address] [id number] [place] [address] Jan, 2013 [facility] [place] [facility] [address] [facility] [id number] [place] [address] Jan, [facility] [place] [facility] [address] [facility] [id number] [place] [address] Jan, 2013 [facility] [place] [facility] [address] [facility] [id number] [place] [address] Dec, [facility] [place] [facility] [address] [id number] [place] [address] Dec, [facility] [place] [facility] [address] [facility] [id number] [place] [address] Dec, [facility] [place] [facility] [address] [id number] [place] [address] Dec, [facility] [place] [facility] [address] [facility] [id number] [place] [address] Dec, [facility] [place] [facility] [address] [id number] [place] [address] Dec, [facility] [place] [facility] [address] [facility] [id number] [place] [address] Dec, [facility] [place] [facility] [address] [id number] [place] [address] Dec, [facility] [place] [facility] [address] [id number] [place] [address] Dec, [facility] [place] [facility] [address] [id number] [place] [address] November, [facility] [place] [facility] [address] [id number] [place] [address] November, [facility] [place] [facility] [address] [id number] [place] [address] November, [facility] [place] [facility] [address] [id number] [place] [address] November, [facility] [place] [facility] [address] [id number] [place] [address] November, [facility] [place] [facility] [address] [id number] [place] [address] November, [facility] [place] [facility] [address] [id number] [place] [address] November, [facility] [place] [facility] [address] [id number] [place] [address] November, [facility] [place] [facility] [address] [id number] [place] [address] November, [facility] [place] [facility] [address] [id number] [place] [address] November, [facility] [place] [facility] [address] [id number] [place] [address] November, [facility] [place] [facility] [address] [id number] [place] [address] November, [facility] [place] [facility] [address] [id number] [place] [address] November, [facility] [place] [facility] [address] [id number] [place] [address] November, [facility] [place] [facility] [address] [id number] [place] [address] Oct, [facility] [place] [facility] [address] [id number] [place] [address] Oct, [facility] [place] [facility] [address] [id number] [place] [address] Oct, [facility] [place] [facility] [address] [id number] [place] [address] Oct, [facility] [place] [facility] [address] [id number] [place] [address] Oct, [facility] [place] [facility] [address] [id number] [place] [address] Oct, [facility] [place] [facility] [address] [id number] [place] [address] Sep, [facility] [place] [facility] [address] [id number] [place] [address] Sep, [facility] [place] [facility] [address] [id number] [place] [address] Sep, [facility] [place] [facility] [address] [id number] [place] [address] Sep, [facility] [place] [facility] [address] [id number] [place] [address] Aug, [facility] [place] [facility] [address] [id number] [place] [address] Aug, [facility] [place] [facility] [address] [id number] [place] [address] Aug, [facility] [place] [facility] [address] [id number] [place] [address] Aug, [facility] [place] [facility] [address] [id number] [place] [address] Jul, [facility] [place] [facility] [address] [id number] [place] [address] Jul, [facility] [place] [facility] [address] [id number] [place] [address] Jul, [facility] [place] [facility] [address] [id number] [place] [address] Jul, [facility] [place] [facility] [address] [id number] [place] [address] Jul, [facility] [place] [facility] [address] [id number] [place] [address] Jul, [facility] [place] [facility] [address] [id number] [place] [address] Jul, [facility] [place] [facility] [address] [id number] [place] [address] Jun, [facility] [place] [facility] [address] [id number] [place] [address] Jun, [facility] [place] [facility] [address] [id number] [place] [address] Jun, [facility] [place] [facility] [address] [id number] [place] [address] Jun, [facility] [place] [facility] [address] [id number] [place] [address] Jun, [facility] [place] [facility] [address] [id number] [place] [address] Jun, [facility] [place] [facility] [address] [id number] [place] [address] May, [facility] [place] [facility] [address] [id number] [place] [address] May, [facility] [place] [facility] [address] [id number] [place] [address] 15 Apr, 2013 [facility] [place] [facility] [address] [facility] [id number] [place] [address] 15 Apr, 2013 [facility] [place] [facility] [address] [facility] [id number] [place] [address] 10 Apr, 2013 [facility] [place] [facility] [address] [id number] [place] [address] 10 Apr, 2013 [facility] [place] [facility] [address] [facility] [id number] [place] [address] 08 Apr, 2013 [facility] [place] [facility] [address] [facility] [id number] [place] [address] 24 Mar, 2013 [facility] [place] [facility] [address] [id number] [place] [address] 19 Mar, 2013 [facility] [place] [facility] [address] [id number] [place] [address] Mar, [facility] [place] [facility] [address] [id number] [place] [address] Mar, [facility] [place] [facility] [address] [id number] [place] [address] Feb, [facility] [place] [facility] [address] [id number] [place] [address] Feb, [facility] [place] [facility] [address] [id number] [place] [address] Jan, [facility] [address] [id number] [place] [address] Jan, [facility] [address] [facility] [id number] [place] [address] Jan, [facility] [address] [id number] [place] [address] Jan, [facility] [address] [id number] [place] [address] Dec, [facility] [address] [id number] [place] [address] Dec, [facility] [address] [id number] [place] [address] 07 Dec, 2012 [facility] [address] [id number] [place] [address] 06 Dec, 2012 [facility] [address] [id number] [place] [address] 16 Nov, 2012 [facility] [address] [id number] [place] [address] November, [facility] [address] [id number] [place] [address] Oct, [facility] [address] [id number] [place] [address] Sep, [facility] [address] [id number] [place] [address] 08 Sep, 2012 [facility] [id number] [place] [address] 14 Aug, 2012 [facility] [address] [id number] [place] [address] 13 Aug, 2012 [facility] [address] [id number] [place] [address] Jul, [facility] [address] [id number] [place] [address] Jul, [facility] [address] [id number] [place] [address] Jul, [facility] [address] [id number] [place] [address] Jun, [facility] [address] [id number] [place] [address] Jun, [facility] [address] [id number] [place] [address] Jun, [facility] [address] [id number] [place] [address] Jun, [facility] [address] [id number] [place] [address] May, [facility] [address] [id number] [place] [address] May, [facility] [address] [id number] [place] [address] May, [facility] [address] [id number] [place] [address] May, [facility] [address] [id number] [place] [address] May, [facility] [address] [id number] [place] [address] May, [facility] [address] [id number] [place] [address] May, [facility] [address] [id number] [place] [address] 15 Apr, 2012 [facility] [address] [id number] [place] [address] Apr, [facility] [address] [id number] [place] [address] Apr, [facility] [address] [id number] [place] [address] Apr, [facility] [address] [id number] [place] [address] Apr, [facility] [address] [id number] [place] [address] Apr, [facility] [address] [id number] [place] [address] Apr, [facility] [address] [id number] [place] [address] Apr, [facility] [address] [id number] [place] [address] Jan, [facility] [address] [id number] [place] [address] Jan, [facility] [address] [id number] [place] [address] 06 Dec, 2011 [facility] [address] [id number] [place] [address] November, [facility] [address] [id number] [place] [address] 27 Oct, 2011 [facility] [address] [id number] [place] [address] Oct, [facility] [address] [id number] [place] [address] Oct, [facility] [address] [id number] [place] [address] Oct, [facility] [address] [id number] [place] [address] Sep, [facility] [address] [id number] [place] [address] Sep, [facility] [address] [id number] [place] [address] Sep, [facility] [address] [id number] [place] [address] Jun, [facility] [address] [id number] [place] [address] Jun, [facility] [address] [id number] [place] [address] May, [facility] [address] [id number] [place] [address] 14 Jan, 2011 [facility] [address] [id number] [place] [address] November, [facility] [address] [id number] [place] [address] 14 Oct, 2010 [facility] [address] [id number] [place] [address] 16 Sep, 2010 [facility] [address] [id number] [place] [address] May, [facility] [address] [id number] [place] [address] Jul, [facility] [address] [id number] [place] [address] Jun, [facility] [address] [id number] [place] [address] Jun, [facility] [id number] [place] [address] Jun, [facility] [address] [id number] [place] [address] Jun, [facility] [id number] [place] [address] May, [facility] [address] [id number] [place] [address] May, [facility] [id number] [place] [address] Apr, [facility] [address] [id number] [place] [address] Apr, [facility] [id number] [place] [address] Apr, IMMUNIZATIONS No Known Immunizations SOCIAL HISTORY [...] right 06/1996 Surgical History multiple knee injections ([id number]) Surgical History left knee replacement 06/11 Hospitalization History Knee surgery- x 3 days 06/11
--- OUTSIDE RECORDS SUMMARY | 2019-12-16 20:27 | XMS REPORT ---
Author Author Patti Guzman Doctor Organization [facility] Address Unknown Phone Unavailable Care Team Providers Care Bowl Topper Name Role Phone Migration, Doctor Unavailable Unavailable PROBLEMS Type Condition ICD9-CM Code NWU20-VF Code Onset Dates Condition S tatus SNOMED Code Problem ADD (attention deficit disorder) F90.0 Active 619204772 Problem Drug abuse counseling and surveillance of drug abuser Z71.51 Active 000018795 Problem Insomnia G47.00 Active 207678887 Problem Joint pain M25.50 Active 78493575 Problem Edema, unspecified type R60.9 Active 742465606 Problem Episode of recurrent major d epressive disorder, unspecified depression episode severity F33.9 Active 751036160 Problem Venous insufficiency (chronic) (peripheral) I87.2 Active [id number] Problem Carpal tunnel syndrome on left G56.02 Active [id number] Problem Manic bipolar I disorder in partial remission F31. 73 Active 88332108 Problem Bipolar affective disorder, currently depressed, moderate F31.32 Active 642197691 Problem Social anxiety disorder F40.10 Active 24567219 Problem Other chronic pain G89.29 Active 8 9112116 Problem Stimulant abuse F15.10 Active 4415 48131 Problem Bipolar II disorder F31.81 Active 93582099 Problem ADD (attention deficit disorder) without hyperactivity F98.8 Active 40359419 ALLERGIES No Information ENCOUNTERS Encounter Location Date Diagnosis [facility] [address] [id number] [place] [address] Aug, [facility] [address] [id number] [place] [address] Jul, [facility] [id number] [place] [address] Apr, [facility] [address] [id number] [place] [address] Apr, Bipolar II disorder F31.81 and Social an xiety disorder F40.10 [place] [address] [address] Jan, Bipolar affective disorder, currently de pressed, moderate F31.32 [place] [address] [address] Jan, Bipolar affective disorder, currently de pressed, moderate F31.32 ; Social anxiety disorder F40.10 and Morbid obesity E66.01 [place] [address] [address] May, Screening for lipid disorders Z13.220 [place] [address] [address] May, Carpal tunnel syndrome on left G56.02 ; Social anxiety disorder F40.10 and Screening for lipid disorders Z13.220 [place] [address] [address] 11 Apr, 2018 Bipolar II disorder F31.81 ; Social anxi ety disorder F40.10 ; ADD (attention deficit disorder) without hyperactivity F98.8 and BMI 45.0-49.9, adult Z68.[address] [address] 05 Mar, 2018 [place] [address] [address] Feb, BMI 45.0-49.9, adult Z68.42 ; Carpal sylvia martha syndrome on left G56.02 and Social anxiety disorder F40.10 [place] [address] [address] Jan, Bipolar II disorder F31.81 ; ADD (attent ion deficit disorder) without hyperactivity F98.8 ; Social anxiety disorder F40.10 and Stimulant abuse F15.[address] [address] Dec, Episode of recurrent major depressive di sorder, unspecified depression episode severity F33.9 ; Other chronic pain G89.29 ; Radiculopathy, lumbar region M54.16 ; Edema of lower extremity R60.0 and BMI 45.0-49.9, adult Z68.42 [facility] [address] [address] Jun, [facility] [address] [address] Jan, Joint pain M25.50 [facility] [address] [address] Jan, Wellness examination Z00.00 ; Pain in ri ght knee M25.561 ; Pain in left knee M25.562 ; Edema, unspecified type R60.9 and Drug abuse counseling and surveillance of drug abuser Z71.51 [place] [address] [address] November, [place] [address] [address] Oct, [place] [address] [address] Oct, ADD (attention deficit disorder) F90.0 ; Social anxiety disorder F40.10 and Manic bipolar I disorder in partial remission F31.73 [place] [address] [address] Aug, [facility] [address] [address] Aug, [facility] [address] [address] Aug, [facility] [address] [address] Jul, [facility] [address] [address] Jul, [facility] [address] [address] Jul, [facility] [address] [address] Jun, [facility] [address] [address] Jun, [facility] [address] [address] Jun, [facility] [address] [address] Jun, [facility] [address] [address] May, Joint pain M25.50 ; ADD (attention defic it disorder) F90.0 ; Edema R60.9 and Insomnia G47.00 [facility] [address] [address] May, [facility] [address] [address] May, [facility] [address] [address] May, [facility] [address] [address] May, Left wrist pain M25.532 ; Sinusitis J32. 9 and Drug abuse counseling and surveillance of drug abuser Z71.51 [facility] [address] [address] Apr, [facility] [address] [address] Apr, [facility] [address] [address] Apr, [facility] [address] [address] Apr, [facility] [address] [address] Apr, [facility] [address] [address] Apr, [facility] [address] [address] Apr, [facility] [address] [address] Mar, Unspecified venous (peripheral) insuffic iency 459.81 ; Bipolar I disorder, most recent episode (or current) manic, moderate 296.42 ; Social phobia 300.23 ; Attention deficit disorder of childhood without mention of hyperactivity 314.00 ; Pain in joint, lower leg 719.46 ; Thrombosis 453.9 and Chronic pain 338.29 [facility] [address] [address] Mar, [facility] [address] [address] Mar, [facility] [address] [address] Mar, [facility] [address] [address] Mar, [facility] [address] [address] 17 Mar, 2015 [facility] [address] [address] Mar, [facility] [address] [address] 10 Mar, 2015 Manic bipolar I disorder in partial josephine ssion 296.45 ; Social phobia 300.23 and Attention deficit disorder of childhood without mention of hyperactivity 314.00 [facility] [address] [address] Mar, [facility] [address] [address] Feb, [facility] [address] [address] Feb, Thrombosis 453.9 ; Unspecified venous (p eripheral) insufficiency 459.81 ; Bipolar I disorder, most recent episode (or current) manic, moderate 296.42 ; Social phobia 300.23 ; Attention deficit disorder of childhood without mention of hyperactivity 314.00 ; Pain in joint, lower leg 719.46 and Edema 782.3 [facility] [address] [address] Feb, [facility] [address] [address] Feb, Social phobia 300.23 ; Attention deficit disorder of childhood without mention of hyperactivity 314.00 and Bipolar I disorder, most recent episode manic, in partial remission 296.45 [facility] [address] [address] Jan, [facility] [address] [address] Jan, [facility] [address] [address] Jan, Unspecified venous (peripheral) insuffic iency 459.81 and Thrombophlebitis 451.9 [facility] [address] [address] Jan, [facility] [address] [address] Dec, Headache 784.0 and Back pain 724.5 [facility] [address] [address] Dec, [facility] [address] [address] Dec, Bipolar I disorder, most recent episode (or current) manic, moderate 296.42 ; Attention deficit disorder of childhood without mention of hyperactivity 314.00 and Social phobia 300.23 [facility] [address] [address] November, [facility] [address] [address] November, [facility] [address] [address] Oct, [facility] [address] [facility] [id number] [place] [address] Oct, [facility] [address] [id number] [place] [address] Sep, [facility] [address] [id number] [place] [address] Sep, [facility] [address] [id number] [place] [address] Aug, [facility] [address] [facility] [id number] [place] [address] Aug, [facility] [address] [id number] [place] [address] Aug, [facility] [address] [id number] [place] [address] Aug, [facility] [address] [id number] [place] [address] Aug, [facility] [address] [id number] [place] [address] Aug, [facility] [address] [id number] [place] [address] Aug, [facility] [address] [id number] [place] [address] Jul, [facility] [address] [id number] [place] [address] Jul, [facility] [address] [id number] [place] [address] Jun, [facility] [address] [id number] [place] [address] Jun, [facility] [address] [id number] [place] [address] May, [facility] [address] [id number] [place] [address] May, [facility] [address] [id number] [place] [address] May, [facility] [address] [id number] [place] [address] May, [facility] [address] [id number] [place] [address] May, [facility] [address] [id number] [place] [address] May, [facility] [address] [id number] [place] [address] Apr, [facility] [address] [id number] [place] [address] Apr, [facility] [address] [id number] [place] [address] Apr, [facility] [address] [id number] [place] [address] Apr, [facility] [address] [id number] [place] [address] 22 Mar, 2014 [facility] [address] [id number] [place] [address] 22 Mar, 2014 [facility] [address] [id number] [place] [address] 19 Mar, 2014 [facility] [address] [id number] [place] [address] 16 Mar, 2013 [facility] [address] [id number] [place] [address] 16 Mar, 2013 [facility] [address] [id number] [place] [address] 15 Sep, 2013 [facility] [address] [id number] [place] [address] 11 Mar, 2013 [facility] [address] [id number] [place] [address] 11 Mar, 2013 [facility] [address] [id number] [place] [address] 11 Mar, 2013 [facility] [address] [id number] [place] [address] 11 Mar, 2013 [facility] [address] [facility] [id number] [place] [address] Mar, 2013 [facility] [address] [facility] [id number] [place] [address] Mar, 2013 [facility] [address] [id number] [place] [address] Mar, 2013 [facility] [address] [facility] [id number] [place] [address] Mar, 2013 [facility] [address] [id number] [place] [address] Mar, [facility] [address] [id number] [place] [address] Feb, [facility] [address] [id number] [place] [address] Feb, [facility] [address] [id number] [place] [address] Feb, [facility] [address] [id number] [place] [address] Feb, [facility] [address] [id number] [place] [address] Feb, [facility] [address] [id number] [place] [address] Feb, [facility] [address] [id number] [place] [address] Feb, [facility] [address] [facility] [id number] [place] [address] Feb, [facility] [address] [id number] [place] [address] Feb, [facility] [address] [id number] [place] [address] Feb, [facility] [address] [id number] [place] [address] Feb, 2013 [facility] [address] [id number] [facility] [place] [address] Feb, [facility] [address] [facility] [id number] [facility] [place] [address] Feb, [facility] [address] [facility] [id number] [facility] [place] [address] Feb, [facility] [address] [id number] [facility] [place] [address] Jan, [facility] [address] [facility] [id number] [facility] [place] [address] Jan, [facility] [address] [facility] [id number] [facility] [place] [address] Jan, [facility] [address] [id number] [place] [address] Jan, [facility] [address] [id number] [place] [address] Jan, [facility] [address] [facility] [id number] [place] [address] Jan, [facility] [address] [id number] [place] [address] Jan, [facility] [address] [id number] [place] [address] Dec, [facility] [address] [id number] [place] [address] Dec, [facility] [address] [facility] [id number] [place] [address] Dec, [facility] [address] [id number] [place] [address] Dec, [facility] [address] [facility] [id number] [place] [address] Dec, [facility] [address] [id number] [place] [address] Dec, [facility] [address] [id number] [place] [address] Dec, [facility] [address] [id number] [place] [address] Dec, [facility] [address] [id number] [place] [address] Dec, [facility] [address] [id number] [place] [address] November, [facility] [address] [id number] [place] [address] November, [facility] [address] [id number] [place] [address] November, [facility] [address] [id number] [place] [address] November, [facility] [address] [id number] [place] [address] November, [facility] [address] [id number] [place] [address] November, [facility] [address] [id number] [place] [address] November, [facility] [address] [id number] [place] [address] November, [facility] [address] [id number] [place] [address] November, [facility] [address] [id number] [place] [address] November, [facility] [address] [id number] [place] [address] November, [facility] [address] [id number] [place] [address] November, [facility] [address] [id number] [place] [address] November, [facility] [address] [id number] [place] [address] November, [facility] [address] [id number] [place] [address] Oct, [facility] [address] [id number] [place] [address] Oct, [facility] [address] [id number] [place] [address] Oct, [facility] [address] [id number] [place] [address] Oct, [facility] [address] [id number] [place] [address] Oct, [facility] [address] [id number] [place] [address] Oct, [facility] [address] [id number] [place] [address] Sep, [facility] [address] [id number] [place] [address] Sep, [facility] [address] [id number] [place] [address] Sep, [facility] [address] [id number] [place] [address] Sep, [facility] [address] [id number] [place] [address] Aug, [facility] [address] [id number] [place] [address] Aug, [facility] [address] [id number] [place] [address] Aug, [facility] [address] [id number] [place] [address] Aug, [facility] [address] [id number] [place] [address] Jul, [facility] [address] [id number] [place] [address] Jul, [facility] [address] [id number] [place] [address] Jul, [facility] [address] [facility] [id number] [place] [address] Jul, [facility] [address] [id number] [place] [address] Jul, [facility] [address] [id number] [place] [address] Jul, [facility] [address] [id number] [place] [address] Jul, [facility] [address] [id number] [place] [address] Jun, [facility] [address] [id number] [place] [address] Jun, [facility] [address] [id number] [place] [address] 17 Jun, 2013 [facility] [address] [id number] [place] [address] 17 Jun, 2013 [facility] [address] [id number] [place] [address] Jun, [facility] [address] [id number] [place] [address] Jun, [facility] [address] [id number] [place] [address] 07 May, 2013 [facility] [address] [id number] [place] [address] 07 May, 2013 [facility] [address] [id number] [place] [address] 15 Apr, 2013 [facility] [address] [id number] [place] [address] 15 Apr, 2013 [facility] [address] [id number] [place] [address] 10 Apr, 2013 [facility] [address] [id number] [place] [address] 10 Apr, 2013 [facility] [address] [facility] [id number] [place] [address] 08 Apr, 2013 [facility] [address] [facility] [id number] [place] [address] 24 Mar, 2013 [facility] [address] [facility] [id number] [place] [address] 19 Mar, 2013 [facility] [address] [id number] [place] [address] 12 Mar, 2013 [facility] [address] [id number] [place] [address] 10 Mar, 2013 [facility] [address] [id number] [place] [address] Feb, [facility] [address] [id number] [place] [address] Feb, [facility] [address] [id number] [place] [address] Jan, [facility] [address] [id number] [place] [address] Jan, [facility] [address] [id number] [place] [address] Jan, [facility] [address] [id number] [place] [address] Jan, [facility] [address] [id number] [place] [address] Dec, [facility] [address] [id number] [place] [address] Dec, [facility] [address] [id number] [place] [address] Dec, [facility] [address] [id number] [place] [address] Dec, [facility] [address] [id number] [place] [address] November, [facility] [address] [id number] [place] [address] November, [facility] [address] [id number] [place] [address] 18 Oct, 2012 [facility] [address] [id number] [place] [address] Sep, [facility] [address] [facility] [id number] [place] [address] 08 Sep, 2012 [facility] [id number] [place] [address] 14 Aug, 2012 [facility] [address] [id number] [place] [address] 13 Aug, 2012 [facility] [address] [id number] [place] [address] Jul, [facility] [address] [id number] [place] [address] Jul, [facility] [id number] [place] [address] Jul, [facility] [address] [id number] [place] [address] Jun, [facility] [id number] [place] [address] Jun, [facility] [address] [id number] [place] [address] Jun, [facility] [id number] [place] [address] Jun, [facility] [address] [id number] [place] [address] May, [facility] [address] [id number] [place] [address] May, [facility] [address] [id number] [place] [address] 19 May, 2012 [facility] [id number] [place] [address] 14 May, 2012 [facility] [address] [id number] [place] [address] 14 May, 2012 [facility] [address] [id number] [place] [address] May, [facility] [address] [id number] [place] [address] May, [facility] [address] [id number] [place] [address] Apr, [facility] [address] [id number] [place] [address] Apr, [facility] [address] [id number] [place] [address] Apr, [facility] [address] [id number] [place] [address] Apr, [facility] [address] [id number] [place] [address] Apr, [facility] [address] [id number] [place] [address] Apr, [facility] [address] [id number] [place] [address] Apr, [facility] [address] [id number] [place] [address] Apr, [facility] [address] [id number] [place] [address] Jan, [facility] [address] [id number] [place] [address] Jan, [facility] [address] [id number] [place] [address] Dec, [facility] [address] [id number] [place] [address] November, [facility] [address] [id number] [place] [address] Oct, [facility] [address] [id number] [place] [address] Oct, [facility] [address] [id number] [place] [address] 03 Oct, 2011 [facility] [address] [id number] [place] [address] Oct, [facility] [address] [id number] [place] [address] Sep, [facility] [address] [id number] [place] [address] Sep, [facility] [address] [id number] [place] [address] Sep, [facility] [address] [id number] [place] [address] Jun, [facility] [address] [id number] [place] [address] 13 Jun, 2011 [facility] [address] [id number] [place] [address] 22 May, 2011 [facility] [address] [id number] [place] [address] 14 Jan, 2011 [facility] [address] [id number] [place] [address] November, [facility] [address] [id number] [place] [address] 14 Oct, 2010 [facility] [address] [id number] [place] [address] 16 Sep, 2010 [facility] [address] [id number] [place] [address] 30 May, 2010 [facility] [address] [id number] [place] [address] Jul, [facility] [address] [id number] [place] [address] Jun, [facility] [address] [id number] [place] [address] Jun, [facility] [address] [id number] [place] [address] Jun, [facility] [address] [id number] [place] [address] Jun, [facility] [address] [id number] [place] [address] May, [facility] [address] [id number] [place] [address] May, [facility] [address] [id number] [place] [address] Apr, [facility] [address] [id number] [place] [address] Apr, [facility] [address] [id number] [place] [address] Apr, IMMUNIZATIONS No Known Immunizations SOCIAL HISTORY Never Assessed REASON FOR VISIT PLAN OF CARE VITAL SIGNS Height 61 in 2013-12-13 Weight 209.4 lbs 2013-12-13 Temperature 98.1 degrees Fahrenheit 2013-12-13 Heart Rate 88 bpm 2013-12-13 Respiratory Rate 20 2013-12-13 Blood pressure systolic 124 mmHg 2013-12-13 Blood pressure diastolic 80 mmHg 2013-12-13 MEDICATIONS Unknown Medications RESULTS No Results PROCEDURES [...] right 06/1996 Surgical History multiple knee injections ([id number]) Surgical History left knee replacement 06/11 Hospitalization History Knee surgery- x 3 days 06/11
--- OUTSIDE RECORDS SUMMARY | 2019-12-16 20:27 | XMS REPORT ---
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 Name Role Phone Migration, Doctor Unavailable Unavailable PROBLEMS Type Condition ICD9-CM Code [id number] Code Onset Dates Condition S tatus SNOMED Code Problem ADD (attention deficit disorder) F90.0 Active 381530205 Problem Drug abuse counseling and surveillance of drug abuser Z71.51 Active 857361604 Problem Insomnia G47.00 Active 078586460 Problem Joint pain M25.50 Active 27603913 Problem Edema, unspecified type R60.9 Active 812822242 Problem Episode of recurrent major d epressive disorder, unspecified depression episode severity F33.9 Active 611884517 Problem Venous insufficiency (chronic) (peripheral) I87.2 Active 96912380405685328 Problem Carpal tunnel syndrome on left G56.02 Active 772745377583200 Problem Manic bipolar I disorder in partial remission F31. 73 Active 57448987 Problem Bipolar affective disorder, currently depressed, moderate F31.32 Active 890929048 Problem Social anxiety disorder F40.10 Active 51585471 Problem Other chronic pain G89.29 Active 8 1124900 Problem Stimulant abuse F15.10 Active 4415 48044 Problem Bipolar II disorder F31.81 Active 45444365 Problem ADD (attention deficit disorder) without hyperactivity F98.8 Active [id number] ALLERGIES No Information ENCOUNTERS Encounter Location Date Diagnosis [facility] [id number] [place] [address] Aug, [facility] [address] [place] [address] Jul, [facility] [id number] [place] [address] Apr, [facility] [id number] [place] [address] Apr, Bipolar II disorder F31.81 and Social an xiety disorder F40.10 [place] [address] [address] Jan, Bipolar affective disorder, currently de pressed, moderate F31.32 [place] [address] [address] Jan, Bipolar affective disorder, currently de pressed, moderate F31.32 ; Social anxiety disorder F40.10 and Morbid obesity E66.01 [place] [address] [address] May, Screening for lipid disorders Z13.220 [place] [address] [address] May, Carpal tunnel syndrome on left G56.02 ; Social anxiety disorder F40.10 and Screening for lipid disorders Z13.220 [place] [address] [address] 11 Apr, 2018 Bipolar II disorder F31.81 ; Social anxi ety disorder F40.10 ; ADD (attention deficit disorder) without hyperactivity F98.8 and BMI 45.0-49.9, adult Z68.[address] [address] 05 Mar, 2018 [place] [address] [address] Feb, BMI 45.0-49.9, adult Z68.42 ; Carpal sylvia martha syndrome on left G56.02 and Social anxiety disorder F40.10 [place] [address] [address] Jan, Bipolar II disorder F31.81 ; ADD (attent ion deficit disorder) without hyperactivity F98.8 ; Social anxiety disorder F40.10 and Stimulant abuse F15.[address] [address] Dec, Episode of recurrent major depressive di sorder, unspecified depression episode severity F33.9 ; Other chronic pain G89.29 ; Radiculopathy, lumbar region M54.16 ; Edema of lower extremity R60.0 and BMI 45.0-49.9, adult Z68.42 [facility] [address] [address] Jun, [facility] [address] [address] Jan, Joint pain M25.50 [facility] [address] [address] Jan, Wellness examination Z00.00 ; Pain in ri ght knee M25.561 ; Pain in left knee M25.562 ; Edema, unspecified type R60.9 and Drug abuse counseling and surveillance of drug abuser Z71.51 [place] [address] [address] November, [place] [address] [address] Oct, [place] [address] [address] Oct, ADD (attention deficit disorder) F90.0 ; Social anxiety disorder F40.10 and Manic bipolar I disorder in partial remission F31.73 [place] [address] [address] Aug, [facility] [address] [address] Aug, [facility] [address] [address] Aug, [facility] [address] [address] Jul, [facility] [address] [address] Jul, [facility] [address] [address] Jul, [facility] [address] [address] Jun, [facility] [address] [address] Jun, [facility] [address] [address] Jun, [facility] [address] [address] Jun, [facility] [address] [address] May, Joint pain M25.50 ; ADD (attention defic it disorder) F90.0 ; Edema R60.9 and Insomnia G47.00 [facility] [address] [address] May, [facility] [address] [address] May, [facility] [address] [address] May, [facility] [address] [address] May, Left wrist pain M25.532 ; Sinusitis J32. 9 and Drug abuse counseling and surveillance of drug abuser Z71.51 [facility] [address] [address] Apr, [facility] [address] [address] Apr, [facility] [address] [address] Apr, [facility] [address] [address] Apr, [facility] [address] [address] Apr, [facility] [address] [address] Apr, [facility] [address] [address] Apr, [facility] [address] [address] Mar, Unspecified venous (peripheral) insuffic iency 459.81 ; Bipolar I disorder, most recent episode (or current) manic, moderate 296.42 ; Social phobia 300.23 ; Attention deficit disorder of childhood without mention of hyperactivity 314.00 ; Pain in joint, lower leg 719.46 ; Thrombosis 453.9 and Chronic pain 338.29 [facility] [address] [address] Mar, [facility] [address] [address] Mar, [facility] [address] [address] Mar, [facility] [address] [address] Mar, [facility] [address] [address] 17 Mar, 2015 [facility] [address] [address] Mar, [facility] [address] [address] 10 Mar, 2015 Manic bipolar I disorder in partial josephine ssion 296.45 ; Social phobia 300.23 and Attention deficit disorder of childhood without mention of hyperactivity 314.00 [facility] [address] [address] Mar, [facility] [address] [address] Feb, [facility] [address] [address] Feb, Thrombosis 453.9 ; Unspecified venous (p eripheral) insufficiency 459.81 ; Bipolar I disorder, most recent episode (or current) manic, moderate 296.42 ; Social phobia 300.23 ; Attention deficit disorder of childhood without mention of hyperactivity 314.00 ; Pain in joint, lower leg 719.46 and Edema 782.3 [facility] [address] [address] Feb, [facility] [address] [address] Feb, Social phobia 300.23 ; Attention deficit disorder of childhood without mention of hyperactivity 314.00 and Bipolar I disorder, most recent episode manic, in partial remission 296.45 [facility] [address] [address] Jan, [facility] [address] [address] Jan, [facility] [address] [address] Jan, Unspecified venous (peripheral) insuffic iency 459.81 and Thrombophlebitis 451.9 [facility] [address] [address] Jan, [facility] [address] [address] Dec, Headache 784.0 and Back pain 724.5 [facility] [address] [address] Dec, [facility] [address] [address] Dec, Bipolar I disorder, most recent episode (or current) manic, moderate 296.42 ; Attention deficit disorder of childhood without mention of hyperactivity 314.00 and Social phobia 300.23 [facility] [address] [address] November, [facility] [address] [address] November, [facility] [address] [address] Oct, [facility] [address] [facility] [id number] [place] [address] Oct, [facility] [id number] [place] [address] Sep, [facility] [id number] [place] [address] Sep, [facility] [id number] [place] [address] Aug, [facility] [address] [facility] [id number] [place] [address] Aug, [facility] [id number] [place] [address] Aug, [facility] [id number] [place] [address] Aug, [facility] [id number] [place] [address] Aug, [facility] [id number] [place] [address] Aug, [facility] [id number] [place] [address] Aug, [facility] [id number] [place] [address] Jul, [facility] [id number] [place] [address] Jul, [facility] [id number] [place] [address] Jun, [facility] [id number] [place] [address] Jun, [facility] [id number] [place] [address] May, [facility] [id number] [place] [address] May, [facility] [id number] [place] [address] May, [facility] [id number] [place] [address] May, [facility] [id number] [place] [address] May, [facility] [id number] [place] [address] May, [facility] [id number] [place] [address] Apr, [facility] [id number] [place] [address] Apr, [facility] [id number] [place] [address] Apr, [facility] [id number] [place] [address] Apr, [facility] [id number] [place] [address] 22 Mar, 2014 [facility] [id number] [place] [address] 22 Mar, 2014 [facility] [id number] [place] [address] 19 Mar, 2014 [facility] [id number] [place] [address] 16 Mar, 2013 [facility] [id number] [place] [address] 16 Mar, 2013 [facility] [id number] [place] [address] 15 Sep, 2013 [facility] [id number] [place] [address] 11 Mar, 2013 [facility] [id number] [place] [address] 11 Mar, 2013 [facility] [id number] [place] [address] 11 Mar, 2013 [facility] [address] [id number] [place] [address] 11 Mar, 2013 [facility] [address] [facility] [id number] [place] [address] Mar, 2013 [facility] [address] [facility] [id number] [place] [address] Mar, 2013 [facility] [id number] [place] [address] Mar, 2013 [facility] [address] [facility] [id number] [place] [address] Mar, 2013 [facility] [address] [id number] [place] [address] Mar, [facility] [id number] [place] [address] Feb, [facility] [id number] [place] [address] Feb, [facility] [id number] [place] [address] Feb, [facility] [id number] [place] [address] Feb, [facility] [id number] [place] [address] Feb, [facility] [id number] [place] [address] Feb, [facility] [id number] [place] [address] Feb, [facility] [address] [facility] [id number] [place] [address] Feb, [facility] [id number] [place] [address] Feb, [facility] [id number] [place] [address] Feb, [facility] [id number] [place] [address] Feb, 2013 [facility] [address] [id number] [place] [address] Feb, [facility] [address] [facility] [id number] [place] [address] Feb, [facility] [address] [facility] [id number] [place] [address] Feb, [facility] [address] [id number] [place] [address] Jan, [facility] [address] [facility] [id number] [place] [address] Jan, [facility] [address] [facility] [id number] [place] [address] Jan, [facility] [id number] [place] [address] Jan, [facility] [id number] [place] [address] Jan, [facility] [address] [facility] [id number] [place] [address] Jan, [facility] [id number] [place] [address] Jan, [facility] [id number] [place] [address] Dec, [facility] [id number] [place] [address] Dec, [facility] [address] [facility] [id number] [place] [address] Dec, [facility] [address] [id number] [place] [address] Dec, [facility] [address] [facility] [id number] [place] [address] Dec, [facility] [id number] [place] [address] Dec, [facility] [id number] [place] [address] Dec, [facility] [address] [id number] [place] [address] Dec, [facility] [id number] [place] [address] Dec, [facility] [id number] [place] [address] November, [facility] [id number] [place] [address] November, [facility] [address] [id number] [place] [address] November, [facility] [id number] [place] [address] November, [facility] [id number] [place] [address] November, [facility] [id number] [place] [address] November, [facility] [id number] [place] [address] November, [facility] [id number] [place] [address] November, [facility] [id number] [place] [address] November, [facility] [id number] [place] [address] November, [facility] [id number] [place] [address] November, [facility] [address] [id number] [place] [address] November, [facility] [id number] [place] [address] November, [facility] [id number] [place] [address] November, [facility] [id number] [place] [address] Oct, [facility] [id number] [place] [address] Oct, [facility] [id number] [place] [address] Oct, [facility] [id number] [place] [address] Oct, [facility] [id number] [place] [address] Oct, [facility] [id number] [place] [address] Oct, [facility] [id number] [place] [address] Sep, [facility] [id number] [place] [address] Sep, [facility] [id number] [place] [address] Sep, [facility] [id number] [place] [address] Sep, [facility] [id number] [place] [address] Aug, [facility] [id number] [place] [address] Aug, [facility] [id number] [place] [address] Aug, [facility] [id number] [place] [address] Aug, [facility] [id number] [place] [address] Jul, [facility] [id number] [place] [address] Jul, [facility] [id number] [place] [address] Jul, [facility] [address] [facility] [id number] [place] [address] Jul, [facility] [id number] [place] [address] Jul, [facility] [id number] [place] [address] Jul, [facility] [id number] [place] [address] Jul, [facility] [id number] [place] [address] Jun, [facility] [id number] [place] [address] Jun, [facility] [id number] [place] [address] 17 Jun, 2013 [facility] [id number] [place] [address] 17 Jun, 2013 [facility] [id number] [place] [address] Jun, [facility] [id number] [place] [address] Jun, [facility] [id number] [place] [address] 07 May, 2013 [facility] [id number] [place] [address] 07 May, 2013 [facility] [id number] [place] [address] 15 Apr, 2013 [facility] [id number] [place] [address] 15 Apr, 2013 [facility] [id number] [place] [address] 10 Apr, 2013 [facility] [id number] [place] [address] 10 Apr, 2013 [facility] [address] [facility] [id number] [place] [address] 08 Apr, 2013 [facility] [address] [facility] [id number] [place] [address] 24 Mar, 2013 [facility] [address] [facility] [id number] [place] [address] 19 Mar, 2013 [facility] [id number] [place] [address] 12 Mar, 2013 [facility] [id number] [place] [address] 10 Mar, 2013 [facility] [id number] [place] [address] Feb, [facility] [id number] [place] [address] Feb, [facility] [id number] [place] [address] Jan, [facility] [id number] [place] [address] Jan, [facility] [id number] [place] [address] Jan, [facility] [id number] [place] [address] Jan, [facility] [id number] [place] [address] Dec, [facility] [id number] [place] [address] Dec, [facility] [id number] [place] [address] Dec, [facility] [id number] [place] [address] Dec, [facility] [id number] [place] [address] November, [facility] [id number] [place] [address] November, [facility] [id number] [place] [address] 18 Oct, 2012 [facility] [id number] [place] [address] Sep, [facility] [id number] [place] [address] 08 Sep, 2012 [facility] [id number] [place] [address] 14 Aug, 2012 [facility] [id number] [place] [address] 13 Aug, 2012 [facility] [id number] [place] [address] Jul, [facility] [id number] [place] [address] Jul, [facility] [id number] [place] [address] Jul, [facility] [id number] [place] [address] Jun, [facility] [id number] [place] [address] Jun, [facility] [id number] [place] [address] Jun, [facility] [id number] [place] [address] Jun, [facility] [id number] [place] [address] May, [facility] [id number] [place] [address] May, [facility] [id number] [place] [address] 19 May, 2012 [facility] [id number] [place] [address] 14 May, 2012 [facility] [id number] [place] [address] 14 May, 2012 [facility] [id number] [place] [address] May, [facility] [id number] [place] [address] May, [facility] [id number] [place] [address] Apr, [facility] [id number] [place] [address] Apr, [facility] [id number] [place] [address] Apr, [facility] [id number] [place] [address] Apr, [facility] [id number] [place] [address] Apr, [facility] [id number] [place] [address] Apr, [facility] [id number] [place] [address] Apr, [facility] [id number] [place] [address] Apr, [facility] [id number] [place] [address] Jan, [facility] [id number] [place] [address] Jan, [facility] [id number] [place] [address] Dec, [facility] [id number] [place] [address] November, [facility] [id number] [place] [address] Oct, [facility] [id number] [place] [address] Oct, [facility] [id number] [place] [address] 03 Oct, 2011 [facility] [id number] [place] [address] Oct, [facility] [id number] [place] [address] Sep, [facility] [id number] [place] [address] Sep, [facility] [id number] [place] [address] Sep, [facility] [id number] [place] [address] Jun, [facility] [id number] [place] [address] 13 Jun, 2011 [facility] [id number] [place] [address] 22 May, 2011 [facility] [id number] [place] [address] 14 Jan, 2011 [facility] [id number] [place] [address] November, [facility] [id number] [place] [address] 14 Oct, 2010 [facility] [id number] [place] [address] 16 Sep, 2010 [facility] [id number] [place] [address] 30 May, 2010 [facility] [id number] [place] [address] Jul, [facility] [id number] [place] [address] Jun, [facility] [id number] [place] [address] Jun, [facility] [id number] [place] [address] Jun, [facility] [id number] [place] [address] Jun, [facility] [id number] [place] [address] May, [facility] [id number] [place] [address] May, [facility] [id number] [place] [address] Apr, [facility] [id number] [place] [address] Apr, [facility] [id number] [place] [address] Apr, IMMUNIZATIONS No Known Immunizations SOCIAL HISTORY [...] right 06/1996 Surgical History multiple knee injections ([id number]) Surgical History left knee replacement 06/11 Hospitalization History Knee surgery- x 3 days 06/11
--- OUTSIDE RECORDS SUMMARY | 2019-12-16 20:27 | XMS REPORT ---
Author Author Patti HERNANDEZ Organization [facility] Address [address] [place] [address] Care Team Providers Care Residential Manager Name Role Phone DARLING HERNANDEZ Unavailable PROBLEMS Type Condition ICD9-CM Code BHD80-LV Code Onset Dates Condition S tatus SNOMED Code Problem ADD (attention deficit disorder) F90.0 Active 589002458 Problem Drug abuse counseling and surveillance of drug abuser Z71.51 Active 321953103 Problem Insomnia G47.00 Active 964143616 Problem Joint pain M25.50 Active 27157914 Problem Edema, unspecified type R60.9 Active 216193172 Problem Episode of recurrent major d epressive disorder, unspecified depression episode severity F33.9 Active 548360116 Problem Venous insufficiency (chronic) (peripheral) I87.2 Active 20880132998871213 Problem Carpal tunnel syndrome on left G56.02 Active 667968693176248 Problem Manic bipolar I disorder in partial remission F31. 73 Active 72545106 Problem Bipolar affective disorder, currently depressed, moderate F31.32 Active 272228434 Problem Social anxiety disorder F40.10 Active 31785019 Problem Other chronic pain G89.29 Active 8 4438402 Problem Stimulant abuse F15.10 Active 2955 71390 Problem Bipolar II disorder F31.81 Active 67936437 Problem ADD (attention deficit disorder) without hyperactivity F98.8 Active 69342473 ALLERGIES No Information ENCOUNTERS Encounter Location Date Diagnosis [facility] [address] [id number] [place] [address] Aug, [facility] [id number] [place] [address] Jul, [facility] [address] [id number] [place] [address] Apr, [facility] [address] [address] Apr, Bipolar II disorder F31.81 and Social an xiety disorder F40.10 [place] [address] [address] Jan, Bipolar affective disorder, currently de pressed, moderate F31.32 [place] [address] [address] Jan, Bipolar affective disorder, currently de pressed, moderate F31.32 ; Social anxiety disorder F40.10 and Morbid obesity E66.01 [place] [address] [address] May, Screening for lipid disorders Z13.220 [place] [address] [address] May, Carpal tunnel syndrome on left G56.02 ; Social anxiety disorder F40.10 and Screening for lipid disorders Z13.220 [place] [address] [address] 11 Apr, 2018 Bipolar II disorder F31.81 ; Social anxi ety disorder F40.10 ; ADD (attention deficit disorder) without hyperactivity F98.8 and BMI 45.0-49.9, adult Z68.42 [place] [address] [address] 05 Mar, 2018 [place] [address] [address] Feb, BMI 45.0-49.9, adult Z68.42 ; Carpal sylvia martha syndrome on left G56.02 and Social anxiety disorder F40.10 [place] [address] [address] Jan, Bipolar II disorder F31.81 ; ADD (attent ion deficit disorder) without hyperactivity F98.8 ; Social anxiety disorder F40.10 and Stimulant abuse F15.10 [place] [address] [address] Dec, Episode of recurrent major depressive di sorder, unspecified depression episode severity F33.9 ; Other chronic pain G89.29 ; Radiculopathy, lumbar region M54.16 ; Edema of lower extremity R60.0 and BMI 45.0-49.9, adult Z68.42 [place] [address] [address] Jun, [place] [address] [address] Jan, Joint pain M25.50 [place] [address] [address] Jan, Wellness examination Z00.00 ; Pain in ri ght knee M25.561 ; Pain in left knee M25.562 ; Edema, unspecified type R60.9 and Drug abuse counseling and surveillance of drug abuser Z71.51 [place] [address] [address] November, [place] [address] [address] Oct, [place] [address] [address] Oct, ADD (attention deficit disorder) F90.0 ; Social anxiety disorder F40.10 and Manic bipolar I disorder in partial remission F31.73 [place] [address] [address] Aug, [place] [address] [address] Aug, [place] [address] [address] Aug, [place] [address] [address] Jul, [place] [address] [address] Jul, [place] [address] [address] Jul, [facility] [address] [address] Jun, [facility] [address] [address] Jun, [facility] [address] [address] Jun, [facility] [address] [address] Jun, [facility] [address] [address] May, Joint pain M25.50 ; ADD (attention defic it disorder) F90.0 ; Edema R60.9 and Insomnia G47.00 [facility] [address] [address] May, [facility] [address] [address] May, [facility] [address] [address] May, [facility] [address] [address] May, Left wrist pain M25.532 ; Sinusitis J32. 9 and Drug abuse counseling and surveillance of drug abuser Z71.51 [facility] [address] [address] Apr, [facility] [address] [address] Apr, [facility] [address] [address] Apr, [facility] [address] [address] Apr, [facility] [address] [address] Apr, [facility] [address] [address] Apr, [facility] [address] [address] Apr, [facility] [address] [address] Mar, Unspecified venous (peripheral) insuffic iency 459.81 ; Bipolar I disorder, most recent episode (or current) manic, moderate 296.42 ; Social phobia 300.23 ; Attention deficit disorder of childhood without mention of hyperactivity 314.00 ; Pain in joint, lower leg 719.46 ; Thrombosis 453.9 and Chronic pain 338.29 [facility] [address] [address] Mar, [facility] [address] [address] Mar, [facility] [address] [address] Mar, [facility] [address] [address] Mar, [facility] [address] [address] Mar, [facility] [address] [address] Mar, [facility] [address] [address] Mar, Manic bipolar I disorder in partial josephine ssion 296.45 ; Social phobia 300.23 and Attention deficit disorder of childhood without mention of hyperactivity 314.00 [facility] [address] [address] Mar, [facility] [address] [address] Feb, [facility] [address] [address] Feb, Thrombosis 453.9 ; Unspecified venous (p eripheral) insufficiency 459.81 ; Bipolar I disorder, most recent episode (or current) manic, moderate 296.42 ; Social phobia 300.23 ; Attention deficit disorder of childhood without mention of hyperactivity 314.00 ; Pain in joint, lower leg 719.46 and Edema 782.3 [facility] [address] [address] Feb, [facility] [address] [address] Feb, Social phobia 300.23 ; Attention deficit disorder of childhood without mention of hyperactivity 314.00 and Bipolar I disorder, most recent episode manic, in partial remission 296.45 [facility] [address] [address] Jan, [facility] [address] [address] Jan, [facility] [address] [address] Jan, Unspecified venous (peripheral) insuffic iency 459.81 and Thrombophlebitis 451.9 [place] [address] [address] Jan, [facility] [address] [address] Dec, Headache 784.0 and Back pain 724.5 [facility] [address] [address] Dec, [facility] [address] [address] Dec, Bipolar I disorder, most recent episode (or current) manic, moderate 296.42 ; Attention deficit disorder of childhood without mention of hyperactivity 314.00 and Social phobia 300.23 [facility] [address] [address] November, [facility] [address] [address] November, [facility] [address] [id number] [place] [address] Oct, [facility] [address] [id number] [place] [address] Oct, [facility] [address] [id number] [place] [address] Sep, [facility] [address] [id number] [place] [address] Sep, [facility] [address] [id number] [place] [address] Aug, [facility] [address] [id number] [place] [address] Aug, [facility] [address] [id number] [place] [address] Aug, [facility] [address] [id number] [place] [address] Aug, [facility] [address] [id number] [place] [address] Aug, [facility] [address] [id number] [place] [address] Aug, [facility] [address] [id number] [place] [address] Aug, [facility] [address] [id number] [place] [address] Jul, [facility] [address] [id number] [place] [address] Jul, [facility] [address] [id number] [place] [address] Jun, [facility] [address] [id number] [place] [address] Jun, [facility] [address] [id number] [place] [address] May, [facility] [address] [id number] [place] [address] May, [facility] [address] [facility] [id number] [place] [address] May, [facility] [address] [id number] [place] [address] May, [facility] [address] [id number] [place] [address] May, [facility] [address] [id number] [place] [address] May, [facility] [address] [id number] [place] [address] Apr, [facility] [address] [id number] [place] [address] Apr, [facility] [address] [id number] [place] [address] Apr, [facility] [address] [id number] [place] [address] Apr, [facility] [address] [id number] [place] [address] 22 Mar, 2014 [facility] [address] [id number] [place] [address] 22 Mar, 2014 [facility] [address] [id number] [place] [address] 19 Mar, 2013 [facility] [address] [id number] [place] [address] 16 Sep, 2013 [facility] [address] [id number] [place] [address] 16 Sep, 2013 [facility] [address] [id number] [place] [address] 15 Sep, 2013 [facility] [address] [id number] [place] [address] 11 Mar, 2013 [facility] [address] [id number] [place] [address] 11 Mar, 2013 [facility] [address] [id number] [place] [address] 11 Mar, 2013 [facility] [address] [facility] [id number] [place] [address] 11 Mar, 2013 [facility] [address] [facility] [id number] [place] [address] 10 Mar, 2013 [facility] [address] [id number] [place] [address] Mar, 2013 [facility] [address] [facility] [id number] [place] [address] Mar, 2013 [facility] [address] [facility] [id number] [place] [address] Mar, 2013 [facility] [address] [id number] [place] [address] Mar, 2013 [facility] [address] [id number] [place] [address] Feb, [facility] [address] [id number] [place] [address] Feb, [facility] [address] [id number] [place] [address] Feb, [facility] [address] [id number] [place] [address] Feb, [facility] [address] [id number] [place] [address] Feb, [facility] [address] [id number] [place] [address] Feb, [facility] [address] [facility] [id number] [place] [address] Feb, [facility] [address] [id number] [place] [address] Feb, [facility] [address] [id number] [place] [address] Feb, [facility] [address] [id number] [place] [address] Feb, [facility] [address] [id number] [place] [address] Feb, 2013 [facility] [address] [facility] [id number] [facility] [address] Feb, 2013 [facility] [address] [facility] [id number] [place] [address] Feb, 2013 [facility] [address] [facility] [id number] [facility] [place] [address] Feb, 2013 [facility] [address] [facility] [id number] [facility] [address] Jan, 2013 [facility] [address] [facility] [id number] [place] [address] Jan, 2013 [facility] [address] [id number] [place] [address] Jan, 2013 [facility] [address] [id number] [place] [address] Jan, [facility] [address] [facility] [id number] [place] [address] Jan, [facility] [address] [id number] [place] [address] Jan, [facility] [address] [id number] [place] [address] Jan, [facility] [address] [id number] [place] [address] Dec, [facility] [address] [facility] [id number] [place] [address] Dec, [facility] [address] [id number] [place] [address] Dec, [facility] [address] [id number] [place] [address] Dec, [facility] [address] [id number] [place] [address] Dec, 2013 [facility] [address] [id number] [facility] [address] Dec, [facility] [address] [id number] [facility] [address] Dec, [facility] [address] [facility] [id number] [place] [address] Dec, [facility] [address] [id number] [place] [address] Dec, [facility] [address] [id number] [place] [address] November, [facility] [address] [facility] [id number] [place] [address] November, [facility] [address] [id number] [place] [address] November, [facility] [address] [id number] [place] [address] November, [facility] [address] [id number] [place] [address] November, [facility] [address] [id number] [place] [address] November, [facility] [address] [id number] [place] [address] November, [facility] [address] [id number] [place] [address] November, [facility] [address] [id number] [place] [address] November, [facility] [address] [id number] [place] [address] November, [facility] [address] [id number] [place] [address] November, [facility] [address] [id number] [place] [address] November, [facility] [address] [id number] [place] [address] November, [facility] [address] [id number] [place] [address] November, [facility] [address] [id number] [place] [address] Oct, [facility] [address] [id number] [place] [address] Oct, [facility] [address] [id number] [place] [address] Oct, [facility] [address] [id number] [place] [address] Oct, [facility] [address] [id number] [place] [address] Oct, [facility] [address] [id number] [place] [address] Oct, [facility] [address] [id number] [place] [address] Sep, [facility] [address] [id number] [place] [address] Sep, [facility] [address] [id number] [place] [address] Sep, [facility] [address] [id number] [place] [address] Sep, [facility] [address] [id number] [place] [address] Aug, [facility] [address] [id number] [place] [address] Aug, [facility] [address] [id number] [place] [address] Aug, [facility] [address] [id number] [place] [address] Aug, [facility] [address] [id number] [place] [address] Jul, [facility] [address] [id number] [place] [address] Jul, [facility] [address] [id number] [place] [address] Jul, [facility] [address] [id number] [place] [address] Jul, [facility] [address] [id number] [place] [address] 15 Jul, 2013 [facility] [address] [id number] [place] [address] Jul, [facility] [address] [facility] [id number] [place] [address] Jul, [facility] [address] [id number] [place] [address] Jun, [facility] [address] [id number] [place] [address] Jun, [facility] [address] [id number] [place] [address] 17 Jun, 2013 [facility] [address] [id number] [place] [address] 17 Jun, 2013 [facility] [address] [id number] [place] [address] Jun, [facility] [address] [id number] [place] [address] Jun, [facility] [address] [id number] [place] [address] 07 May, 2013 [facility] [address] [id number] [place] [address] May, [facility] [address] [id number] [place] [address] 15 Apr, 2013 [facility] [address] [id number] [place] [address] 15 Apr, 2013 [facility] [address] [id number] [place] [address] 10 Apr, 2013 [facility] [address] [id number] [place] [address] 10 Apr, 2013 [facility] [address] [facility] [id number] [place] [address] Apr, [facility] [address] [id number] [place] [address] 24 Mar, 2013 [facility] [address] [id number] [place] [address] Mar, [facility] [address] [id number] [place] [address] Mar, [facility] [address] [id number] [place] [address] Mar, [facility] [address] [id number] [place] [address] Feb, [facility] [address] [id number] [place] [address] Feb, [facility] [address] [id number] [place] [address] Jan, [facility] [address] [id number] [place] [address] Jan, [facility] [address] [id number] [place] [address] Jan, [facility] [address] [id number] [place] [address] Jan, [facility] [address] [id number] [place] [address] Dec, [facility] [address] [id number] [place] [address] Dec, [facility] [address] [id number] [place] [address] Dec, [facility] [address] [id number] [place] [address] Dec, [facility] [address] [id number] [place] [address] November, [facility] [address] [id number] [place] [address] November, [facility] [address] [id number] [place] [address] Oct, [facility] [address] [id number] [place] [address] Sep, [facility] [id number] [place] [address] 08 Sep, 2012 [facility] [address] [id number] [place] [address] 14 Aug, 2012 [facility] [address] [id number] [place] [address] Aug, [facility] [address] [id number] [place] [address] Jul[facility] [id number] [place] [address] Jul, [facility] [address] [id number] [place] [address] Jul, [facility] [id number] [place] [address] Jun, [facility] [address] [id number] [place] [address] Jun, [facility] [id number] [place] [address] Jun, [facility] [address] [id number] [place] [address] 15 Jun, 2012 [facility] [address] [id number] [place] [address] May, [facility] [address] [id number] [place] [address] May, [facility] [address] [id number] [place] [address] May, [facility] [address] [id number] [place] [address] 14 May, 2012 [facility] [address] [id number] [place] [address] 14 May, 2012 [facility] [address] [facility] [id number] [place] [address] May[facility] [address] [id number] [place] [address] May, [facility] [address] [id number] [place] [address] Apr, [facility] [address] [id number] [place] [address] Apr, [facility] [address] [id number] [place] [address] Apr, [facility] [address] [id number] [place] [address] Apr, [facility] [address] [id number] [place] [address] Apr, [facility] [address] [id number] [place] [address] Apr, [facility] [address] [id number] [place] [address] Apr, [facility] [address] [id number] [place] [address] Apr, [facility] [address] [id number] [place] [address] Jan, [facility] [address] [id number] [place] [address] Jan, [facility] [address] [id number] [place] [address] Dec, [facility] [address] [id number] [place] [address] November, [facility] [address] [id number] [place] [address] Oct, [facility] [address] [id number] [place] [address] 10 Oct, 2011 [facility] [address] [id number] [place] [address] 03 Oct, 2011 [facility] [address] [id number] [place] [address] 02 Oct, 2011 [facility] [address] [id number] [place] [address] 26 Sep, 2011 [facility] [address] [id number] [place] [address] Sep, [facility] [address] [id number] [place] [address] Sep, [facility] [address] [id number] [place] [address] 13 Jun, 2011 [facility] [address] [id number] [place] [address] 13 Jun, 2011 [facility] [address] [id number] [place] [address] 22 May, 2011 [facility] [address] [id number] [place] [address] 14 Jan, 2011 [facility] [address] [id number] [place] [address] 19 Nov, 2010 [facility] [address] [id number] [place] [address] 14 Oct, 2010 [facility] [address] [id number] [place] [address] 16 Sep, 2010 [facility] [address] [id number] [place] [address] 30 May, 2010 [facility] [address] [id number] [place] [address] Jul, [facility] [address] [id number] [place] [address] Jun, [facility] [address] [id number] [place] [address] Jun, [facility] [address] [id number] [place] [address] Jun, [facility] [address] [id number] [place] [address] Jun, [facility] [address] [id number] [place] [address] May, [facility] [address] [id number] [place] [address] May, [facility] [address] [id number] [place] [address] Apr, [facility] [address] [id number] [place] [address] Apr, [facility] [address] [id number] [place] [address] Apr, IMMUNIZATIONS No Known Immunizations SOCIAL HISTORY [...] right 06/1996 Surgical History multiple knee injections ([id number]) Surgical History left knee replacement 06/11 Hospitalization History Knee surgery- x 3 days 06/11
--- OUTSIDE RECORDS SUMMARY | 2019-12-16 20:27 | XMS REPORT ---
Author Author Patti Guzman Doctor Organization [facility] Address Unknown Phone Unavailable Care Team Providers Care Cam Specialist Name Role Phone Migration, Doctor Unavailable Unavailable PROBLEMS Type Condition ICD9-CM Code [id number] Code Onset Dates Condition S tatus SNOMED Code Problem ADD (attention deficit disorder) F90.0 Active 173409584 Problem Drug abuse counseling and surveillance of drug abuser Z71.51 Active 707549682 Problem Insomnia G47.00 Active 468879518 Problem Joint pain M25.50 Active 20282197 Problem Edema, unspecified type R60.9 Active 356077753 Problem Episode of recurrent major d epressive disorder, unspecified depression episode severity F33.9 Active 205744735 Problem Venous insufficiency (chronic) (peripheral) I87.2 Active 09936831855037229 Problem Carpal tunnel syndrome on left G56.02 Active 858712376354547 Problem Manic bipolar I disorder in partial remission F31. 73 Active 17982429 Problem Bipolar affective disorder, currently depressed, moderate F31.32 Active 886287076 Problem Social anxiety disorder F40.10 Active 89539192 Problem Other chronic pain G89.29 Active 8 3930708 Problem Stimulant abuse F15.10 Active 4415 81559 Problem Bipolar II disorder F31.81 Active 38052490 Problem ADD (attention deficit disorder) without hyperactivity F98.8 Active [id number] ALLERGIES No Information ENCOUNTERS Encounter Location Date Diagnosis [facility] [place] [address] [id number] [place] [address] Aug, [facility] [place] [address] [id number] [place] [address] Jul, [facility] [place] [id number] [place] [address] Apr, [facility] [place] [address] [id number] [place] [address] Apr, Bipolar II disorder F31.81 and Social an xiety disorder F40.10 [place] [address] [address] Jan, Bipolar affective disorder, currently de pressed, moderate F31.32 [place] [address] [address] Jan, Bipolar affective disorder, currently de pressed, moderate F31.32 ; Social anxiety disorder F40.10 and Morbid obesity E66.01 [place] [address] [address] May, Screening for lipid disorders Z13.220 [place] [address] [address] May, Carpal tunnel syndrome on left G56.02 ; Social anxiety disorder F40.10 and Screening for lipid disorders Z13.220 [place] [address] [address] 11 Apr, 2018 Bipolar II disorder F31.81 ; Social anxi ety disorder F40.10 ; ADD (attention deficit disorder) without hyperactivity F98.8 and BMI 45.0-49.9, adult Z68.[address] [address] 05 Mar, 2018 [place] [address] [address] Feb, BMI 45.0-49.9, adult Z68.42 ; Carpal sylvia martha syndrome on left G56.02 and Social anxiety disorder F40.10 [place] [address] [address] Jan, Bipolar II disorder F31.81 ; ADD (attent ion deficit disorder) without hyperactivity F98.8 ; Social anxiety disorder F40.10 and Stimulant abuse F15.[address] [address] Dec, Episode of recurrent major depressive di sorder, unspecified depression episode severity F33.9 ; Other chronic pain G89.29 ; Radiculopathy, lumbar region M54.16 ; Edema of lower extremity R60.0 and BMI 45.0-49.9, adult Z68.42 [facility] [place] [address] [address] Jun, [facility] [place] [address] [address] Jan, Joint pain M25.50 [facility] [place] [address] [address] Jan, Wellness examination Z00.00 ; Pain in ri ght knee M25.561 ; Pain in left knee M25.562 ; Edema, unspecified type R60.9 and Drug abuse counseling and surveillance of drug abuser Z71.51 [place] [address] [address] November, [place] [address] [address] Oct, [place] [address] [address] Oct, ADD (attention deficit disorder) F90.0 ; Social anxiety disorder F40.10 and Manic bipolar I disorder in partial remission F31.73 [place] [address] [address] Aug, [facility] [place] [address] [address] Aug, [facility] [place] [address] [address] Aug, [facility] [place] [address] [address] Jul, [facility] [place] [address] [address] Jul, [facility] [place] [address] [address] Jul, [facility] [place] [address] [address] Jun, [facility] [place] [address] [address] Jun, [facility] [place] [address] [address] Jun, [facility] [place] [address] [address] Jun, [facility] [place] [address] [address] May, Joint pain M25.50 ; ADD (attention defic it disorder) F90.0 ; Edema R60.9 and Insomnia G47.00 [facility] [place] [address] [address] May, [facility] [place] [address] [address] May, [facility] [place] [address] [address] May, [facility] [place] [address] [address] May, Left wrist pain M25.532 ; Sinusitis J32. 9 and Drug abuse counseling and surveillance of drug abuser Z71.51 [facility] [place] [address] [address] Apr, [facility] [place] [address] [address] Apr, [facility] [place] [address] [address] Apr, [facility] [place] [address] [address] Apr, [facility] [place] [address] [address] Apr, [facility] [place] [address] [address] Apr, [facility] [place] [address] [address] Apr, [facility] [place] [address] [address] Mar, Unspecified venous (peripheral) insuffic iency 459.81 ; Bipolar I disorder, most recent episode (or current) manic, moderate 296.42 ; Social phobia 300.23 ; Attention deficit disorder of childhood without mention of hyperactivity 314.00 ; Pain in joint, lower leg 719.46 ; Thrombosis 453.9 and Chronic pain 338.29 [facility] [place] [address] [address] Mar, [facility] [place] [address] [address] Mar, [facility] [place] [address] [address] Mar, [facility] [place] [address] [address] Mar, [facility] [place] [address] [address] 17 Mar, 2015 [facility] [place] [address] [address] Mar, [facility] [place] [address] [address] 10 Mar, 2015 Manic bipolar I disorder in partial josephine ssion 296.45 ; Social phobia 300.23 and Attention deficit disorder of childhood without mention of hyperactivity 314.00 [facility] [place] [address] [address] Mar, [facility] [place] [address] [address] Feb, [facility] [place] [address] [address] Feb, Thrombosis 453.9 ; Unspecified venous (p eripheral) insufficiency 459.81 ; Bipolar I disorder, most recent episode (or current) manic, moderate 296.42 ; Social phobia 300.23 ; Attention deficit disorder of childhood without mention of hyperactivity 314.00 ; Pain in joint, lower leg 719.46 and Edema 782.3 [facility] [place] [address] [address] Feb, [facility] [place] [address] [address] Feb, Social phobia 300.23 ; Attention deficit disorder of childhood without mention of hyperactivity 314.00 and Bipolar I disorder, most recent episode manic, in partial remission 296.45 [facility] [place] [address] [address] Jan, [facility] [place] [address] [address] Jan, [facility] [place] [address] [address] Jan, Unspecified venous (peripheral) insuffic iency 459.81 and Thrombophlebitis 451.9 [facility] [place] [address] [address] Jan, [facility] [place] [address] [address] Dec, Headache 784.0 and Back pain 724.5 [facility] [place] [address] [address] Dec, [facility] [place] [address] [address] Dec, Bipolar I disorder, most recent episode (or current) manic, moderate 296.42 ; Attention deficit disorder of childhood without mention of hyperactivity 314.00 and Social phobia 300.23 [facility] [place] [address] [address] November, [facility] [place] [address] [address] November, [facility] [place] [address] [address] Oct, [facility] [place] [facility] [address] [facility] [id number] [place] [address] Oct, [facility] [place] [facility] [address] [id number] [place] [address] Sep, [facility] [place] [facility] [address] [id number] [place] [address] Sep, [facility] [place] [facility] [address] [id number] [place] [address] Aug, [facility] [place] [facility] [address] [facility] [id number] [place] [address] Aug, [facility] [place] [facility] [address] [id number] [place] [address] Aug, [facility] [place] [facility] [address] [id number] [place] [address] Aug, [facility] [place] [facility] [address] [id number] [place] [address] Aug, [facility] [place] [facility] [address] [id number] [place] [address] Aug, [facility] [place] [facility] [address] [id number] [place] [address] Aug, [facility] [place] [facility] [address] [id number] [place] [address] Jul, [facility] [place] [facility] [address] [id number] [place] [address] Jul, [facility] [place] [facility] [address] [id number] [place] [address] Jun, [facility] [place] [facility] [address] [id number] [place] [address] Jun, [facility] [place] [facility] [address] [id number] [place] [address] May, [facility] [place] [facility] [address] [id number] [place] [address] May, [facility] [place] [facility] [address] [id number] [place] [address] May, [facility] [place] [facility] [address] [id number] [place] [address] May, [facility] [place] [facility] [address] [id number] [place] [address] May, [facility] [place] [facility] [address] [id number] [place] [address] May, [facility] [place] [facility] [address] [id number] [place] [address] Apr, [facility] [place] [facility] [address] [id number] [place] [address] Apr, [facility] [place] [facility] [address] [id number] [place] [address] Apr, [facility] [place] [facility] [address] [id number] [place] [address] Apr, [facility] [place] [facility] [address] [id number] [place] [address] 22 Mar, 2014 [facility] [place] [facility] [address] [id number] [place] [address] 22 Mar, 2014 [facility] [place] [facility] [address] [id number] [place] [address] 19 Mar, 2014 [facility] [place] [facility] [address] [id number] [place] [address] 16 Mar, 2013 [facility] [place] [facility] [address] [id number] [place] [address] 16 Mar, 2013 [facility] [place] [facility] [address] [id number] [place] [address] 15 Sep, 2013 [facility] [place] [facility] [address] [id number] [place] [address] 11 Mar, 2013 [facility] [place] [facility] [address] [id number] [place] [address] 11 Mar, 2013 [facility] [place] [facility] [address] [id number] [place] [address] 11 Mar, 2013 [facility] [place] [facility] [address] [id number] [place] [address] 11 Mar, 2013 [facility] [place] [facility] [address] [facility] [id number] [place] [address] Mar, 2013 [facility] [place] [facility] [address] [facility] [id number] [place] [address] Mar, 2013 [facility] [place] [facility] [address] [id number] [place] [address] Mar, 2013 [facility] [place] [facility] [address] [facility] [id number] [place] [address] Mar, 2013 [facility] [place] [facility] [address] [id number] [place] [address] Mar, [facility] [place] [facility] [address] [id number] [place] [address] Feb, [facility] [place] [facility] [address] [id number] [place] [address] Feb, [facility] [place] [facility] [address] [id number] [place] [address] Feb, [facility] [place] [facility] [address] [id number] [place] [address] Feb, [facility] [place] [facility] [address] [id number] [place] [address] Feb, [facility] [place] [facility] [address] [id number] [place] [address] Feb, [facility] [place] [facility] [address] [id number] [place] [address] Feb, [facility] [place] [facility] [address] [facility] [id number] [place] [address] Feb, [facility] [place] [facility] [address] [id number] [place] [address] Feb, [facility] [place] [facility] [address] [id number] [place] [address] Feb, [facility] [place] [facility] [address] [id number] [place] [address] Feb, 2013 [facility] [place] [facility] [address] [id number] [place] [address] Feb, [facility] [place] [facility] [address] [facility] [id number] [place] [address] Feb, [facility] [place] [facility] [address] [facility] [id number] [place] [address] Feb, [facility] [place] [facility] [address] [id number] [place] [address] Jan, [facility] [place] [facility] [address] [facility] [id number] [place] [address] Jan, [facility] [place] [facility] [address] [facility] [id number] [place] [address] Jan, [facility] [place] [facility] [address] [id number] [place] [address] Jan, [facility] [place] [facility] [address] [id number] [place] [address] Jan, [facility] [place] [facility] [address] [facility] [id number] [place] [address] Jan, [facility] [place] [facility] [address] [id number] [place] [address] Jan, [facility] [place] [facility] [address] [id number] [place] [address] Dec, [facility] [place] [facility] [address] [id number] [place] [address] Dec, [facility] [place] [facility] [address] [facility] [id number] [place] [address] Dec, [facility] [place] [facility] [address] [id number] [place] [address] Dec, [facility] [place] [facility] [address] [facility] [id number] [place] [address] Dec, [facility] [place] [facility] [address] [id number] [place] [address] Dec, [facility] [place] [facility] [address] [id number] [place] [address] Dec, [facility] [place] [facility] [address] [id number] [place] [address] Dec, [facility] [place] [facility] [address] [id number] [place] [address] Dec, [facility] [place] [facility] [address] [id number] [place] [address] November, [facility] [place] [facility] [address] [id number] [place] [address] November, [facility] [place] [facility] [address] [id number] [place] [address] November, [facility] [place] [facility] [address] [id number] [place] [address] November, [facility] [place] [facility] [address] [id number] [place] [address] November, [facility] [place] [facility] [address] [id number] [place] [address] November, [facility] [place] [facility] [address] [id number] [place] [address] November, [facility] [place] [facility] [address] [id number] [place] [address] November, [facility] [place] [facility] [address] [id number] [place] [address] November, [facility] [place] [facility] [address] [id number] [place] [address] November, [facility] [place] [facility] [address] [id number] [place] [address] November, [facility] [place] [facility] [address] [id number] [place] [address] November, [facility] [place] [facility] [address] [id number] [place] [address] November, [facility] [place] [facility] [address] [id number] [place] [address] November, [facility] [place] [facility] [address] [id number] [place] [address] Oct, [facility] [place] [facility] [address] [id number] [place] [address] Oct, [facility] [place] [facility] [address] [id number] [place] [address] Oct, [facility] [place] [facility] [address] [id number] [place] [address] Oct, [facility] [place] [facility] [address] [id number] [place] [address] Oct, [facility] [place] [facility] [address] [id number] [place] [address] Oct, [facility] [place] [facility] [address] [id number] [place] [address] Sep, [facility] [place] [facility] [address] [id number] [place] [address] Sep, [facility] [place] [facility] [address] [id number] [place] [address] Sep, [facility] [place] [facility] [address] [id number] [place] [address] Sep, [facility] [address] [id number] [place] [address] Aug, [facility] [address] [id number] [place] [address] Aug, [facility] [address] [id number] [place] [address] Aug, [facility] [address] [id number] [place] [address] Aug, [facility] [address] [id number] [place] [address] Jul, [facility] [address] [id number] [place] [address] Jul, [facility] [address] [id number] [place] [address] Jul, [facility] [address] [facility] [id number] [place] [address] Jul, [facility] [address] [id number] [place] [address] Jul, [facility] [address] [id number] [place] [address] Jul, [facility] [address] [id number] [place] [address] Jul, [facility] [address] [id number] [place] [address] Jun, [facility] [address] [id number] [place] [address] Jun, [facility] [address] [id number] [place] [address] 17 Jun, 2013 [facility] [address] [id number] [place] [address] 17 Jun, 2013 [facility] [address] [id number] [place] [address] Jun, [facility] [address] [id number] [place] [address] Jun, [facility] [address] [id number] [place] [address] 07 May, 2013 [facility] [address] [id number] [place] [address] 07 May, 2013 [facility] [address] [id number] [place] [address] 15 Apr, 2013 [facility] [address] [id number] [place] [address] 15 Apr, 2013 [facility] [address] [id number] [place] [address] 10 Apr, 2013 [facility] [address] [id number] [place] [address] 10 Apr, 2013 [facility] [address] [facility] [id number] [place] [address] 08 Apr, 2013 [facility] [address] [facility] [id number] [place] [address] 24 Mar, 2013 [facility] [address] [facility] [id number] [place] [address] 19 Mar, 2013 [facility] [address] [id number] [place] [address] 12 Mar, 2013 [facility] [address] [id number] [place] [address] 10 Mar, 2013 [facility] [address] [id number] [place] [address] Feb, [facility] [address] [id number] [place] [address] Feb, [facility] [address] [id number] [place] [address] Jan, [facility] [address] [id number] [place] [address] Jan, [facility] [address] [id number] [place] [address] Jan, [facility] [address] [id number] [place] [address] Jan, [facility] [address] [id number] [place] [address] Dec, [facility] [address] [id number] [place] [address] Dec, [facility] [address] [id number] [place] [address] Dec, [facility] [address] [id number] [place] [address] Dec, [facility] [address] [id number] [place] [address] November, [facility] [address] [id number] [place] [address] November, [facility] [address] [id number] [place] [address] 18 Oct, 2012 [facility] [address] [id number] [place] [address] Sep, [facility] [address] [id number] [place] [address] 08 Sep, 2012 [facility] [id number] [place] [address] 14 Aug, 2012 [facility] [address] [id number] [place] [address] 13 Aug, 2012 [facility] [address] [id number] [place] [address] Jul, [facility] [address] [id number] [place] [address] Jul, [facility] [id number] [place] [address] Jul, [facility] [address] [id number] [place] [address] Jun, [facility] [id number] [place] [address] Jun, [facility] [address] [id number] [place] [address] Jun, [facility] [id number] [place] [address] Jun, [facility] [address] [id number] [place] [address] May, [facility] [address] [id number] [place] [address] May, [facility] [address] [id number] [place] [address] 19 May, 2012 [facility] [id number] [place] [address] 14 May, 2012 [facility] [address] [id number] [place] [address] 14 May, 2012 [facility] [address] [id number] [place] [address] May, [facility] [address] [id number] [place] [address] May, [facility] [address] [id number] [place] [address] Apr, [facility] [address] [id number] [place] [address] Apr, [facility] [address] [id number] [place] [address] Apr, [facility] [address] [id number] [place] [address] Apr, [facility] [address] [id number] [place] [address] Apr, [facility] [address] [id number] [place] [address] Apr, [facility] [address] [id number] [place] [address] Apr, [facility] [address] [id number] [place] [address] Apr, [facility] [address] [id number] [place] [address] Jan, [facility] [address] [id number] [place] [address] Jan, [facility] [address] [id number] [place] [address] Dec, [facility] [address] [id number] [place] [address] November, [facility] [address] [id number] [place] [address] Oct, [facility] [address] [id number] [place] [address] Oct, [facility] [address] [id number] [place] [address] 03 Oct, 2011 [facility] [address] [id number] [place] [address] Oct, [facility] [address] [id number] [place] [address] Sep, [facility] [address] [id number] [place] [address] Sep, [facility] [address] [id number] [place] [address] Sep, [facility] [address] [id number] [place] [address] Jun, [facility] [address] [id number] [place] [address] 13 Jun, 2011 [facility] [address] [id number] [place] [address] 22 May, 2011 [facility] [address] [id number] [place] [address] 14 Jan, 2011 [facility] [address] [id number] [place] [address] November, [facility] [address] [id number] [place] [address] 14 Oct, 2010 [facility] [address] [id number] [place] [address] 16 Sep, 2010 [facility] [address] [id number] [place] [address] 30 May, 2010 [facility] [address] [id number] [place] [address] Jul, [facility] [address] [id number] [place] [address] Jun, [facility] [address] [id number] [place] [address] Jun, [facility] [address] [id number] [place] [address] Jun, [facility] [place] [address] [id number] [place] [address] Jun, [facility] [place] [address] [id number] [place] [address] May, [facility] [place] [address] [id number] [place] [address] May, [facility] [place] [address] [id number] [place] [address] Apr, [facility] [place] [address] [id number] [place] [address] Apr, [facility] [place] [address] [id number] [place] [address] Apr, IMMUNIZATIONS No Known Immunizations SOCIAL HISTORY Never Assessed REASON FOR VISIT PLAN OF CARE VITAL SIGNS Weight 210.25 lbs 2013-12-01 Temperature 98.2 degrees Fahrenheit 2013-12-01 Heart Rate 88 bpm 2013-12-01 Respiratory Rate 28 2013-12-01 Blood pressure systolic 112 mmHg 2013-12-01 Blood pressure diastolic 90 mmHg 2013-12-01 MEDICATIONS Unknown Medications RESULTS No Results PROCEDURES [...] right 06/1996 Surgical History multiple knee injections ([id number]) Surgical History left knee replacement 06/11 Hospitalization History Knee surgery- x 3 days 06/11
--- OUTSIDE RECORDS SUMMARY | 2019-12-16 20:28 | XMS REPORT ---
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 Role Phone Migration, Doctor Unavailable Unavailable PROBLEMS Type Condition ICD9-CM Code [id number] Code Onset Dates Condition S tatus SNOMED Code Problem ADD (attention deficit disorder) F90.0 Active 430211952 Problem Drug abuse counseling and surveillance of drug abuser Z71.51 Active 847473406 Problem Insomnia G47.00 Active 640008105 Problem Joint pain M25.50 Active 41660359 Problem Edema, unspecified type R60.9 Active 286713972 Problem Episode of recurrent major d epressive disorder, unspecified depression episode severity F33.9 Active 413155335 Problem Venous insufficiency (chronic) (peripheral) I87.2 Active 99699002793010231 Problem Carpal tunnel syndrome on left G56.02 Active [id number] Problem Manic bipolar I disorder in partial remission F31. 73 Active 65574939 Problem Bipolar affective disorder, currently depressed, moderate F31.32 Active 102598381 Problem Social anxiety disorder F40.10 Active 85102283 Problem Other chronic pain G89.29 Active 8 7390811 Problem Stimulant abuse F15.10 Active 4415 41431 Problem Bipolar II disorder F31.81 Active 19032690 Problem ADD (attention deficit disorder) without hyperactivity F98.8 Active 55513537 ALLERGIES No Information ENCOUNTERS Encounter Location Date Diagnosis [facility] [address] [id number] [place] [address] Aug, [facility] [address] [id number] [place] [address] Jul, [facility] [id number] [place] [address] Apr, [facility] [address] [id number] [place] [address] Apr, Bipolar II disorder F31.81 and Social an xiety disorder F40.10 [place] [address] [address] Jan, Bipolar affective disorder, currently de pressed, moderate F31.32 [place] [address] [address] Jan, Bipolar affective disorder, currently de pressed, moderate F31.32 ; Social anxiety disorder F40.10 and Morbid obesity E66.01 [place] [address] [address] May, Screening for lipid disorders Z13.220 [place] [address] [address] May, Carpal tunnel syndrome on left G56.02 ; Social anxiety disorder F40.10 and Screening for lipid disorders Z13.220 [place] [address] [address] 11 Apr, 2018 Bipolar II disorder F31.81 ; Social anxi ety disorder F40.10 ; ADD (attention deficit disorder) without hyperactivity F98.8 and BMI 45.0-49.9, adult Z68.[address] [address] 05 Mar, 2018 [place] [address] [address] Feb, BMI 45.0-49.9, adult Z68.42 ; Carpal sylvia martha syndrome on left G56.02 and Social anxiety disorder F40.10 [place] [address] [address] Jan, Bipolar II disorder F31.81 ; ADD (attent ion deficit disorder) without hyperactivity F98.8 ; Social anxiety disorder F40.10 and Stimulant abuse F15.[address] [address] Dec, Episode of recurrent major depressive di sorder, unspecified depression episode severity F33.9 ; Other chronic pain G89.29 ; Radiculopathy, lumbar region M54.16 ; Edema of lower extremity R60.0 and BMI 45.0-49.9, adult Z68.42 [facility] [address] [address] Jun, [facility] [address] [address] Jan, Joint pain M25.50 [facility] [address] [address] Jan, Wellness examination Z00.00 ; Pain in ri ght knee M25.561 ; Pain in left knee M25.562 ; Edema, unspecified type R60.9 and Drug abuse counseling and surveillance of drug abuser Z71.51 [place] [address] [address] November, [place] [address] [address] Oct, [place] [address] [address] Oct, ADD (attention deficit disorder) F90.0 ; Social anxiety disorder F40.10 and Manic bipolar I disorder in partial remission F31.73 [place] [address] [address] Aug, [facility] [address] [address] Aug, [facility] [address] [address] Aug, [facility] [address] [address] Jul, [facility] [address] [address] Jul, [facility] [address] [address] Jul, [facility] [address] [address] Jun, [facility] [address] [address] Jun, [facility] [address] [address] Jun, [facility] [address] [address] Jun, [facility] [address] [address] May, Joint pain M25.50 ; ADD (attention defic it disorder) F90.0 ; Edema R60.9 and Insomnia G47.00 [facility] [address] [address] May, [facility] [address] [address] May, [facility] [address] [address] May, [facility] [address] [address] May, Left wrist pain M25.532 ; Sinusitis J32. 9 and Drug abuse counseling and surveillance of drug abuser Z71.51 [facility] [address] [address] Apr, [facility] [address] [address] Apr, [facility] [address] [address] Apr, [facility] [address] [address] Apr, [facility] [address] [address] Apr, [facility] [address] [address] Apr, [facility] [address] [address] Apr, [facility] [address] [address] Mar, Unspecified venous (peripheral) insuffic iency 459.81 ; Bipolar I disorder, most recent episode (or current) manic, moderate 296.42 ; Social phobia 300.23 ; Attention deficit disorder of childhood without mention of hyperactivity 314.00 ; Pain in joint, lower leg 719.46 ; Thrombosis 453.9 and Chronic pain 338.29 [facility] [address] [address] Mar, [facility] [address] [address] Mar, [facility] [address] [address] Mar, [facility] [address] [address] Mar, [facility] [address] [address] 17 Mar, 2015 [facility] [address] [address] Mar, [facility] [address] [address] 10 Mar, 2015 Manic bipolar I disorder in partial josephine ssion 296.45 ; Social phobia 300.23 and Attention deficit disorder of childhood without mention of hyperactivity 314.00 [facility] [address] [address] Mar, [facility] [address] [address] Feb, [facility] [address] [address] Feb, Thrombosis 453.9 ; Unspecified venous (p eripheral) insufficiency 459.81 ; Bipolar I disorder, most recent episode (or current) manic, moderate 296.42 ; Social phobia 300.23 ; Attention deficit disorder of childhood without mention of hyperactivity 314.00 ; Pain in joint, lower leg 719.46 and Edema 782.3 [facility] [address] [address] Feb, [facility] [address] [address] Feb, Social phobia 300.23 ; Attention deficit disorder of childhood without mention of hyperactivity 314.00 and Bipolar I disorder, most recent episode manic, in partial remission 296.45 [facility] [address] [address] Jan, [facility] [address] [address] Jan, [facility] [address] [address] Jan, Unspecified venous (peripheral) insuffic iency 459.81 and Thrombophlebitis 451.9 [facility] [address] [address] Jan, [facility] [address] [address] Dec, Headache 784.0 and Back pain 724.5 [facility] [address] [address] Dec, [facility] [address] [address] Dec, Bipolar I disorder, most recent episode (or current) manic, moderate 296.42 ; Attention deficit disorder of childhood without mention of hyperactivity 314.00 and Social phobia 300.23 [facility] [address] [address] November, [facility] [address] [address] November, [facility] [address] [address] Oct, [facility] [address] [facility] [id number] [place] [address] Oct, [facility] [address] [id number] [place] [address] Sep, [facility] [address] [id number] [place] [address] Sep, [facility] [address] [id number] [place] [address] Aug, [facility] [address] [facility] [id number] [place] [address] Aug, [facility] [address] [id number] [place] [address] Aug, [facility] [address] [id number] [place] [address] Aug, [facility] [address] [id number] [place] [address] Aug, [facility] [address] [id number] [place] [address] Aug, [facility] [address] [id number] [place] [address] Aug, [facility] [address] [id number] [place] [address] Jul, [facility] [address] [id number] [place] [address] Jul, [facility] [address] [id number] [place] [address] Jun, [facility] [address] [id number] [place] [address] Jun, [facility] [address] [id number] [place] [address] May, [facility] [address] [id number] [place] [address] May, [facility] [address] [id number] [place] [address] May, [facility] [address] [id number] [place] [address] May, [facility] [address] [id number] [place] [address] May, [facility] [address] [id number] [place] [address] May, [facility] [address] [id number] [place] [address] Apr, [facility] [address] [id number] [place] [address] Apr, [facility] [address] [id number] [place] [address] Apr, [facility] [address] [id number] [place] [address] Apr, [facility] [address] [id number] [place] [address] 22 Mar, 2014 [facility] [address] [id number] [place] [address] 22 Mar, 2014 [facility] [address] [id number] [place] [address] 19 Mar, 2014 [facility] [address] [id number] [place] [address] 16 Mar, 2013 [facility] [address] [id number] [place] [address] 16 Mar, 2013 [facility] [address] [id number] [place] [address] 15 Sep, 2013 [facility] [address] [id number] [place] [address] 11 Mar, 2013 [facility] [address] [id number] [place] [address] 11 Mar, 2013 [facility] [address] [id number] [place] [address] 11 Mar, 2013 [facility] [address] [id number] [place] [address] 11 Mar, 2013 [facility] [address] [facility] [id number] [place] [address] Mar, 2013 [facility] [address] [facility] [id number] [place] [address] Mar, 2013 [facility] [address] [id number] [place] [address] Mar, 2013 [facility] [address] [facility] [id number] [place] [address] Mar, 2013 [facility] [address] [id number] [place] [address] Mar, [facility] [address] [id number] [place] [address] Feb, [facility] [address] [id number] [place] [address] Feb, [facility] [address] [id number] [place] [address] Feb, [facility] [address] [id number] [place] [address] Feb, [facility] [address] [id number] [place] [address] Feb, [facility] [address] [id number] [place] [address] Feb, [facility] [address] [id number] [place] [address] Feb, [facility] [address] [facility] [id number] [place] [address] Feb, [facility] [address] [id number] [place] [address] Feb, [facility] [address] [id number] [place] [address] Feb, [facility] [address] [id number] [place] [address] Feb, 2013 [facility] [address] [id number] [facility] [place] [address] Feb, [facility] [address] [facility] [id number] [facility] [place] [address] Feb, [facility] [address] [facility] [id number] [facility] [place] [address] Feb, [facility] [address] [id number] [facility] [place] [address] Jan, [facility] [address] [facility] [id number] [facility] [place] [address] Jan, [facility] [address] [facility] [id number] [facility] [place] [address] Jan, [facility] [address] [id number] [place] [address] Jan, [facility] [address] [id number] [place] [address] Jan, [facility] [address] [facility] [id number] [place] [address] Jan, [facility] [address] [id number] [place] [address] Jan, [facility] [address] [id number] [place] [address] Dec, [facility] [address] [id number] [place] [address] Dec, [facility] [address] [facility] [id number] [place] [address] Dec, [facility] [address] [id number] [place] [address] Dec, [facility] [address] [facility] [id number] [place] [address] Dec, [facility] [address] [id number] [place] [address] Dec, [facility] [address] [id number] [place] [address] Dec, [facility] [address] [id number] [place] [address] Dec, [facility] [address] [id number] [place] [address] Dec, [facility] [address] [id number] [place] [address] November, [facility] [address] [id number] [place] [address] November, [facility] [address] [id number] [place] [address] November, [facility] [address] [id number] [place] [address] November, [facility] [address] [id number] [place] [address] November, [facility] [address] [id number] [place] [address] November, [facility] [address] [id number] [place] [address] November, [facility] [address] [id number] [place] [address] November, [facility] [address] [id number] [place] [address] November, [facility] [address] [id number] [place] [address] November, [facility] [address] [id number] [place] [address] November, [facility] [address] [id number] [place] [address] November, [facility] [address] [id number] [place] [address] November, [facility] [address] [id number] [place] [address] November, [facility] [address] [id number] [place] [address] Oct, [facility] [address] [id number] [place] [address] Oct, [facility] [address] [id number] [place] [address] Oct, [facility] [address] [id number] [place] [address] Oct, [facility] [address] [id number] [place] [address] Oct, [facility] [address] [id number] [place] [address] Oct, [facility] [address] [id number] [place] [address] Sep, [facility] [address] [id number] [place] [address] Sep, [facility] [address] [id number] [place] [address] Sep, [facility] [address] [id number] [place] [address] Sep, [facility] [address] [id number] [place] [address] Aug, [facility] [address] [id number] [place] [address] Aug, [facility] [address] [id number] [place] [address] Aug, [facility] [address] [id number] [place] [address] Aug, [facility] [address] [id number] [place] [address] Jul, [facility] [address] [id number] [place] [address] Jul, [facility] [address] [id number] [place] [address] Jul, [facility] [address] [facility] [id number] [place] [address] Jul, [facility] [address] [id number] [place] [address] Jul, [facility] [address] [id number] [place] [address] Jul, [facility] [address] [id number] [place] [address] Jul, [facility] [address] [id number] [place] [address] Jun, [facility] [address] [id number] [place] [address] Jun, [facility] [address] [id number] [place] [address] 17 Jun, 2013 [facility] [address] [id number] [place] [address] 17 Jun, 2013 [facility] [address] [id number] [place] [address] Jun, [facility] [address] [id number] [place] [address] Jun, [facility] [address] [id number] [place] [address] 07 May, 2013 [facility] [address] [id number] [place] [address] 07 May, 2013 [facility] [address] [id number] [place] [address] 15 Apr, 2013 [facility] [address] [id number] [place] [address] 15 Apr, 2013 [facility] [address] [id number] [place] [address] 10 Apr, 2013 [facility] [address] [id number] [place] [address] 10 Apr, 2013 [facility] [address] [facility] [id number] [place] [address] 08 Apr, 2013 [facility] [address] [facility] [id number] [place] [address] 24 Mar, 2013 [facility] [address] [facility] [id number] [place] [address] 19 Mar, 2013 [facility] [address] [id number] [place] [address] 12 Mar, 2013 [facility] [address] [id number] [place] [address] 10 Mar, 2013 [facility] [address] [id number] [place] [address] Feb, [facility] [address] [id number] [place] [address] Feb, [facility] [address] [id number] [place] [address] Jan, [facility] [address] [id number] [place] [address] Jan, [facility] [address] [id number] [place] [address] Jan, [facility] [address] [id number] [place] [address] Jan, [facility] [address] [id number] [place] [address] Dec, [facility] [address] [id number] [place] [address] Dec, [facility] [address] [id number] [place] [address] Dec, [facility] [address] [id number] [place] [address] Dec, [facility] [address] [id number] [place] [address] November, [facility] [address] [id number] [place] [address] November, [facility] [address] [id number] [place] [address] 18 Oct, 2012 [facility] [address] [id number] [place] [address] Sep, [facility] [address] [id number] [place] [address] 08 Sep, 2012 [facility] [id number] [place] [address] 14 Aug, 2012 [facility] [address] [id number] [place] [address] 13 Aug, 2012 [facility] [address] [id number] [place] [address] Jul, [facility] [address] [id number] [place] [address] Jul, [facility] [id number] [place] [address] Jul, [facility] [address] [id number] [place] [address] Jun, [facility] [id number] [place] [address] Jun, [facility] [address] [id number] [place] [address] Jun, [facility] [id number] [place] [address] Jun, [facility] [address] [id number] [place] [address] May, [facility] [address] [id number] [place] [address] May, [facility] [address] [id number] [place] [address] 19 May, 2012 [facility] [id number] [place] [address] 14 May, 2012 [facility] [address] [id number] [place] [address] 14 May, 2012 [facility] [address] [id number] [place] [address] May, [facility] [address] [id number] [place] [address] May, [facility] [address] [id number] [place] [address] Apr, [facility] [address] [id number] [place], [place] [id number] Apr, [facility] [address] [id number] [place] [address] Apr, [facility] [address] [id number] [place] [address] Apr, [facility] [address] [id number] [place] [address] Apr, [facility] [address] [id number] [place] [address] Apr, [facility] [address] [id number] [place] [address] Apr, [facility] [address] [id number] [place] [address] Apr, [facility] [address] [id number] [place] [address] Jan, [facility] [address] [id number] [place] [address] Jan, [facility] [address] [id number] [place] [address] Dec, [facility] [address] [id number] [place] [address] November, [facility] [address] [id number] [place] [address] Oct, [facility] [address] [id number] [place] [address] Oct, [facility] [address] [id number] [place] [address] 03 Oct, 2011 [facility] [address] [id number] [place] [address] Oct, [facility] [address] [id number] [place] [address] Sep, [facility] [address] [id number] [place] [address] Sep, [facility] [address] [id number] [place] [address] Sep, [facility] [address] [id number] [place] [address] Jun, [facility] [address] [id number] [place] [address] 13 Jun, 2011 [facility] [address] [id number] [place] [address] 22 May, 2011 [facility] [address] [id number] [place] [address] 14 Jan, 2011 [facility] [address] [id number] [place] [address] November, [facility] [address] [id number] [place] [address] 14 Oct, 2010 [facility] [address] [id number] [place] [address] 16 Sep, 2010 [facility] [address] [id number] [place] [address] 30 May, 2010 [facility] [address] [id number] [place] [address] Jul, [facility] [address] [id number] [place] [address] Jun, [facility] [address] [id number] [place] [address] Jun, [facility] [address] [id number] [place] [address] Jun, [facility] [address] [id number] [place] [address] Jun, [facility] [address] [id number] [place] [address] May, [facility] [address] [id number] [place] [address] May, [facility] [address] [id number] [place] [address] Apr, [facility] [address] [id number] [place] [address] Apr, [facility] [address] [id number] [place] [address] Apr, IMMUNIZATIONS No Known Immunizations SOCIAL HISTORY [...] right 06/1996 Surgical History multiple knee injections ([id number]) Surgical History left knee replacement 06/11 Hospitalization History Knee surgery- x 3 days 06/11
--- OUTSIDE RECORDS SUMMARY | 2019-12-16 20:28 | XMS REPORT ---
Author Author Patti HERNANDEZ Organization [facility] Address [address] [place] [address] Care Team Providers Care Rating Clerk Name Role Phone DARLING HERNANDEZ Unavailable PROBLEMS Type Condition ICD9-CM Code [id number] Code Onset Dates Condition S tatus SNOMED Code Problem ADD (attention deficit disorder) F90.0 Active 675029004 Problem Drug abuse counseling and surveillance of drug abuser Z71.51 Active 189865118 Problem Insomnia G47.00 Active 752351462 Problem Joint pain M25.50 Active 06850632 Problem Edema, unspecified type R60.9 Active 200771955 Problem Episode of recurrent major d epressive disorder, unspecified depression episode severity F33.9 Active 072356546 Problem Venous insufficiency (chronic) (peripheral) I87.2 Active 63226401942736116 Problem Carpal tunnel syndrome on left G56.02 Active 719575043592472 Problem Manic bipolar I disorder in partial remission F31. 73 Active 39809779 Problem Bipolar affective disorder, currently depressed, moderate F31.32 Active 332441944 Problem Social anxiety disorder F40.10 Active 09598169 Problem Other chronic pain G89.29 Active 8 3490701 Problem Stimulant abuse F15.10 Active 4415 08247 Problem Bipolar II disorder F31.81 Active 73058420 Problem ADD (attention deficit disorder) without hyperactivity F98.8 Active 44495883 ALLERGIES No Information ENCOUNTERS Encounter Location Date Diagnosis [facility] [address] [id number] [place] [address] Aug, [facility] [address] [id number] [place] [address] Jul, [facility] [address] [id number] [place] [address] Apr, [facility] [address] [address] Apr, Bipolar II disorder F31.81 and Social an xiety disorder F40.10 [place] [address] [address] Jan, Bipolar affective disorder, currently de pressed, moderate F31.32 [place] [address] [address] Jan, Bipolar affective disorder, currently de pressed, moderate F31.32 ; Social anxiety disorder F40.10 and Morbid obesity E66.01 [place] [address] [address] May, Screening for lipid disorders Z13.220 [place] [address] [address] May, Carpal tunnel syndrome on left G56.02 ; Social anxiety disorder F40.10 and Screening for lipid disorders Z13.220 [place] [address] [address] 11 Apr, 2018 Bipolar II disorder F31.81 ; Social anxi ety disorder F40.10 ; ADD (attention deficit disorder) without hyperactivity F98.8 and BMI 45.0-49.9, adult Z68.42 [place] [address] [address] 05 Mar, 2018 [place] [address] [address] Feb, BMI 45.0-49.9, adult Z68.42 ; Carpal sylvia martha syndrome on left G56.02 and Social anxiety disorder F40.10 [place] [address] [address] Jan, Bipolar II disorder F31.81 ; ADD (attent ion deficit disorder) without hyperactivity F98.8 ; Social anxiety disorder F40.10 and Stimulant abuse F15.10 [place] [address] [address] Dec, Episode of recurrent major depressive di sorder, unspecified depression episode severity F33.9 ; Other chronic pain G89.29 ; Radiculopathy, lumbar region M54.16 ; Edema of lower extremity R60.0 and BMI 45.0-49.9, adult Z68.42 [place] [address] [address] Jun, [place] [address] [address] Jan, Joint pain M25.50 [place] [address] [address] Jan, Wellness examination Z00.00 ; Pain in ri ght knee M25.561 ; Pain in left knee M25.562 ; Edema, unspecified type R60.9 and Drug abuse counseling and surveillance of drug abuser Z71.51 [place] [address] [address] November, [place] [address] [address] Oct, [place] [address] [address] Oct, ADD (attention deficit disorder) F90.0 ; Social anxiety disorder F40.10 and Manic bipolar I disorder in partial remission F31.73 [place] [address] [address] Aug, [place] [address] [address] Aug, [place] [address] [address] Aug, [place] [address] [address] Jul, [place] [address] [address] Jul, [place] [address] [address] Jul, [facility] [address] [address] Jun, [facility] [address] [address] Jun, [facility] [address] [address] Jun, [facility] [address] [address] Jun, [facility] [address] [address] May, Joint pain M25.50 ; ADD (attention defic it disorder) F90.0 ; Edema R60.9 and Insomnia G47.00 [facility] [address] [address] May, [facility] [address] [address] May, [facility] [address] [address] May, [facility] [address] [address] May, Left wrist pain M25.532 ; Sinusitis J32. 9 and Drug abuse counseling and surveillance of drug abuser Z71.51 [facility] [address] [address] Apr, [facility] [address] [address] Apr, [facility] [address] [address] Apr, [facility] [address] [address] Apr, [facility] [address] [address] Apr, [facility] [address] [address] Apr, [facility] [address] [address] Apr, [facility] [address] [place] [id number] Mar, Unspecified venous (peripheral) insuffic iency 459.81 ; Bipolar I disorder, most recent episode (or current) manic, moderate 296.42 ; Social phobia 300.23 ; Attention deficit disorder of childhood without mention of hyperactivity 314.00 ; Pain in joint, lower leg 719.46 ; Thrombosis 453.9 and Chronic pain 338.29 [facility] [address] [address] Mar, [facility] [address] [address] Mar, [facility] [address] [address] Mar, [facility] [address] [address] Mar, [facility] [address] [address] Mar, [facility] [address] [address] Mar, [facility] [address] [address] Mar, Manic bipolar I disorder in partial josephine ssion 296.45 ; Social phobia 300.23 and Attention deficit disorder of childhood without mention of hyperactivity 314.00 [facility] [address] [address] Mar, [facility] [address] [address] Feb, [facility] [address] [address] Feb, Thrombosis 453.9 ; Unspecified venous (p eripheral) insufficiency 459.81 ; Bipolar I disorder, most recent episode (or current) manic, moderate 296.42 ; Social phobia 300.23 ; Attention deficit disorder of childhood without mention of hyperactivity 314.00 ; Pain in joint, lower leg 719.46 and Edema 782.3 [facility] [address] [address] Feb, [facility] [address] [address] Feb, Social phobia 300.23 ; Attention deficit disorder of childhood without mention of hyperactivity 314.00 and Bipolar I disorder, most recent episode manic, in partial remission 296.45 [facility] [address] [address] Jan, [facility] [address] [address] Jan, [facility] [address] [address] Jan, Unspecified venous (peripheral) insuffic iency 459.81 and Thrombophlebitis 451.9 [place] [address] [address] Jan, [facility] [address] [address] Dec, Headache 784.0 and Back pain 724.5 [facility] [address] [address] Dec, [facility] [address] [address] Dec, Bipolar I disorder, most recent episode (or current) manic, moderate 296.42 ; Attention deficit disorder of childhood without mention of hyperactivity 314.00 and Social phobia 300.23 [facility] [address] [address] November, [facility] [address] [address] November, [facility] [address] [id number] [place] [address] Oct, [facility] [address] [facility] [id number] [place] [address] Oct, [facility] [address] [id number] [place] [address] Sep, [facility] [address] [id number] [place] [address] Sep, [facility] [address] [id number] [place] [address] Aug, [facility] [address] [id number] [place] [address] Aug, [facility] [address] [id number] [place] [address] Aug, [facility] [address] [id number] [place] [address] Aug, [facility] [address] [id number] [place] [address] Aug, [facility] [address] [id number] [place] [address] Aug, [facility] [address] [id number] [place] [address] Aug, [facility] [address] [id number] [place] [address] Jul, [facility] [address] [id number] [place] [address] Jul, [facility] [address] [id number] [place] [address] Jun, [facility] [address] [id number] [place] [address] Jun, [facility] [address] [id number] [place] [address] May, [facility] [address] [id number] [place] [address] May, [facility] [address] [facility] [id number] [place] [address] May, [facility] [address] [id number] [place] [address] May, [facility] [address] [id number] [place] [address] May, [facility] [address] [id number] [place] [address] May, [facility] [address] [id number] [place] [address] Apr, [facility] [address] [id number] [place] [address] Apr, [facility] [address] [id number] [place] [address] Apr, [facility] [address] [id number] [place] [address] Apr, [facility] [address] [id number] [place] [address] 22 Mar, 2014 [facility] [address] [id number] [place] [address] 22 Mar, 2014 [facility] [address] [id number] [place] [address] 19 Mar, 2013 [facility] [address] [id number] [place] [address] 16 Sep, 2013 [facility] [address] [id number] [place] [address] 16 Sep, 2013 [facility] [address] [id number] [place] [address] 15 Sep, 2013 [facility] [address] [id number] [place] [address] 11 Mar, 2013 [facility] [address] [id number] [place] [address] 11 Mar, 2013 [facility] [address] [id number] [place] [address] 11 Mar, 2013 [facility] [address] [facility] [id number] [place] [address] 11 Mar, 2013 [facility] [address] [facility] [id number] [place] [address] 10 Mar, 2013 [facility] [address] [id number] [place] [address] Mar, 2013 [facility] [address] [id number] [place] [address] Mar, 2013 [facility] [address] [id number] [place] [address] Mar, 2013 [facility] [address] [id number] [place] [address] Mar, 2013 [facility] [address] [id number] [place] [address] Feb, [facility] [address] [id number] [place] [address] Feb, [facility] [address] [id number] [place] [address] Feb, [facility] [address] [id number] [place] [address] Feb, [facility] [address] [id number] [place] [address] Feb, [facility] [address] [id number] [place] [address] Feb, [facility] [address] [id number] [place] [address] Feb, [facility] [address] [id number] [place] [address] Feb, [facility] [address] [id number] [place] [address] Feb, [facility] [address] [id number] [place] [address] Feb, [facility] [address] [id number] [place] [address] Feb, 2013 [facility] [address] [id number] [facility] [address] Feb, 2013 [facility] [address] [id number] [place] [address] Feb, 2013 [facility] [address] [id number] [facility] [place] [address] Feb, 2013 [facility] [address] [id number] [facility] [address] Jan, 2013 [facility] [address] [id number] [place] [address] Jan, 2013 [facility] [address] [id number] [place] [address] Jan, 2013 [facility] [address] [id number] [place] [address] Jan, [facility] [address] [id number] [place] [address] Jan, [facility] [address] [id number] [place] [address] Jan, [facility] [address] [id number] [place] [address] Jan, [facility] [address] [id number] [place] [address] Dec, [facility] [address] [id number] [place] [address] Dec, [facility] [address] [id number] [place] [address] Dec, [facility] [address] [id number] [place] [address] Dec, [facility] [address] [id number] [place] [address] Dec, 2013 [facility] [address] [id number] [facility] [address] Dec, [facility] [address] [id number] [facility] [address] Dec, [facility] [address] [id number] [place] [address] Dec, [facility] [address] [id number] [place] [address] Dec, [facility] [address] [id number] [place] [address] November, [facility] [address] [id number] [place] [address] November, [facility] [address] [id number] [place] [address] November, [facility] [address] [id number] [place] [address] November, [facility] [address] [id number] [place] [address] November, [facility] [address] [id number] [place] [address] November, [facility] [address] [id number] [place] [address] November, [facility] [address] [id number] [place] [address] November, [facility] [address] [id number] [place] [address] November, [facility] [address] [id number] [place] [address] November, [facility] [address] [id number] [place] [address] November, [facility] [address] [id number] [place] [address] November, [facility] [address] [id number] [place] [address] November, [facility] [address] [id number] [place] [address] November, [facility] [address] [id number] [place] [address] Oct, [facility] [address] [id number] [place] [address] Oct, [facility] [address] [id number] [place] [address] Oct, [facility] [address] [id number] [place] [address] Oct, [facility] [address] [id number] [place] [address] Oct, [facility] [address] [id number] [place] [address] Oct, [facility] [address] [id number] [place] [address] Sep, [facility] [address] [id number] [place] [address] Sep, [facility] [address] [id number] [place] [address] Sep, [facility] [address] [id number] [place] [address] Sep, [facility] [address] [id number] [place] [address] Aug, [facility] [address] [id number] [place] [address] Aug, [facility] [address] [id number] [place] [address] Aug, [facility] [address] [id number] [place] [address] Aug, [facility] [address] [id number] [place] [address] Jul, [facility] [address] [id number] [place] [address] Jul, [facility] [address] [id number] [place] [address] Jul, [facility] [address] [id number] [place] [address] Jul, [facility] [address] [id number] [place] [address] 15 Jul, 2013 [facility] [address] [id number] [place] [address] Jul, [facility] [address] [id number] [place] [address] Jul, [facility] [address] [id number] [place] [address] Jun, [facility] [address] [id number] [place] [address] Jun, [facility] [address] [id number] [place] [address] 17 Jun, 2013 [facility] [address] [id number] [place] [address] 17 Jun, 2013 [facility] [address] [id number] [place] [address] Jun, [facility] [address] [id number] [place] [address] Jun, [facility] [address] [id number] [place] [address] 07 May, 2013 [facility] [address] [id number] [place] [address] May, [facility] [address] [id number] [place] [address] 15 Apr, 2013 [facility] [address] [id number] [place] [address] 15 Apr, 2013 [facility] [address] [id number] [place] [address] 10 Apr, 2013 [facility] [address] [id number] [place] [address] 10 Apr, 2013 [facility] [address] [facility] [id number] [place] [address] Apr, [facility] [address] [id number] [place] [address] 24 Mar, 2013 [facility] [address] [id number] [place] [address] Mar, [facility] [address] [id number] [place] [address] Mar, [facility] [address] [id number] [place] [address] Mar, [facility] [address] [id number] [place] [address] Feb, [facility] [address] [id number] [place] [address] Feb, [facility] [address] [id number] [place] [address] Jan, [facility] [address] [id number] [place] [address] Jan, [facility] [address] [id number] [place] [address] Jan, [facility] [address] [id number] [place] [address] Jan, [facility] [address] [id number] [place] [address] Dec, [facility] [address] [id number] [place] [address] Dec, [facility] [address] [id number] [place] [address] Dec, [facility] [address] [id number] [place] [address] Dec, [facility] [address] [id number] [place] [address] November, [facility] [address] [id number] [place] [address] November, [facility] [address] [id number] [place] [address] Oct, [facility] [address] [id number] [place] [address] Sep, [facility] [id number] [place] [address] 08 Sep, 2012 [facility] [address] [id number] [place] [address] 14 Aug, 2012 [facility] [address] [id number] [place] [address] Aug, [facility] [address] [id number] [place] [address] Jul, [facility] [id number] [place] [address] Jul, [facility] [address] [id number] [place] [address] Jul, [facility] [id number] [place] [address] Jun, [facility] [address] [id number] [place] [address] Jun, [facility] [id number] [place] [address] Jun, [facility] [address] [id number] [place] [address] 15 Jun, 2012 [facility] [address] [id number] [place] [address] May, [facility] [address] [id number] [place] [address] May, [facility] [address] [id number] [place] [address] May, [facility] [address] [id number] [place] [address] 14 May, 2012 [facility] [address] [id number] [place] [address] 14 May, 2012 [facility] [address] [id number] [place] [address] May, [facility] [address] [id number] [place] [address] May, [facility] [address] [id number] [place] [address] Apr, [facility] [address] [id number] [place] [address] Apr, [facility] [address] [id number] [place] [address] Apr, [facility] [address] [id number] [place] [address] Apr, [facility] [address] [id number] [place] [address] Apr, [facility] [address] [id number] [place] [address] Apr, [facility] [address] [id number] [place] [address] Apr, [facility] [address] [id number] [place] [address] Apr, [facility] [address] [id number] [place] [address] Jan, [facility] [address] [id number] [place] [address] Jan, [facility] [address] [id number] [place] [address] Dec, [facility] [address] [id number] [place] [address] November, [facility] [address] [id number] [place] [address] Oct, [facility] [address] [id number] [place] [address] 10 Oct, 2011 [facility] [address] [id number] [place] [address] 03 Oct, 2011 [facility] [address] [id number] [place] [address] 02 Oct, 2011 [facility] [address] [id number] [place] [address] 26 Sep, 2011 [facility] [address] [id number] [place] [address] Sep, [facility] [address] [id number] [place] [address] Sep, [facility] [address] [id number] [place] [address] 13 Jun, 2011 [facility] [address] [id number] [place] [address] 13 Jun, 2011 [facility] [address] [id number] [place] [address] 22 May, 2011 [facility] [address] [id number] [place] [address] 14 Jan, 2011 [facility] [address] [id number] [place] [address] 19 Nov, 2010 [facility] [address] [id number] [place] [address] 14 Oct, 2010 [facility] [address] [id number] [place] [address] 16 Sep, 2010 [facility] [address] [id number] [place] [address] 30 May, 2010 [facility] [address] [id number] [place] [address] Jul, [facility] [address] [id number] [place] [address] Jun, [facility] [facility] [address] [id number] [place] [address] Jun, [facility] [id number] [place] [address] Jun, [facility] [address] [facility] [id number] [place] [address] Jun, [facility] [address] [id number] [place] [address] May, [facility] [address] [id number] [place] [address] May, [facility] [address] [id number] [place] [address] Apr, [facility] [address] [id number] [place] [address] Apr, [facility] [address] [facility] [id number] [place] [address] Apr, IMMUNIZATIONS No Known Immunizations SOCIAL HISTORY Never Assessed REASON FOR VISIT PLAN OF CARE VITAL SIGNS Height 61 in 2013-11-28 Weight 212.4 lbs 2013-11-28 Temperature 97.8 degrees Fahrenheit 2013-11-28 Heart Rate 90 bpm 2013-11-28 Respiratory Rate 20 2013-11-28 Blood pressure systolic 122 mmHg 2013-11-28 Blood pressure diastolic 78 mmHg 2013-11-28 MEDICATIONS Unknown Medications RESULTS No Results PROCEDURES Procedure Date Ordered Result Body Site COMPREHEN METABOLIC PANEL November 28, 2013 X-RAY EXAM OF KNEE, 1 OR 2 November 28, 2013 ASSAY OF VITAMIN D November 28, 2013 VENIPUNCT, ROUTINE* November 28, 2013 INSTRUCTIONS MEDICATIONS ADMINISTERED No Known Medications MEDICAL [...] right 06/1996 Surgical History multiple knee injections ([id number]) Surgical History left knee replacement 06/11 Hospitalization History Knee surgery- x 3 days 06/11
--- OUTSIDE RECORDS SUMMARY | 2019-12-16 20:28 | XMS REPORT ---
Author Author Patti Guzman Doctor Organization [facility] Address Unknown Phone Unavailable Care Team Providers Care Cop Breaker Name Role Phone Migration, Doctor Unavailable Unavailable PROBLEMS Type Condition ICD9-CM Code XIM26-FB Code Onset Dates Condition S tatus SNOMED Code Problem ADD (attention deficit disorder) F90.0 Active 826106008 Problem Drug abuse counseling and surveillance of drug abuser Z71.51 Active 720386305 Problem Insomnia G47.00 Active 892802237 Problem Joint pain M25.50 Active 22241397 Problem Edema, unspecified type R60.9 Active 049642822 Problem Episode of recurrent major d epressive disorder, unspecified depression episode severity F33.9 Active 052706718 Problem Venous insufficiency (chronic) (peripheral) I87.2 Active 41875120264727212 Problem Carpal tunnel syndrome on left G56.02 Active 892973852999299 Problem Manic bipolar I disorder in partial remission F31. 73 Active 29937014 Problem Bipolar affective disorder, currently depressed, moderate F31.32 Active 792179619 Problem Social anxiety disorder F40.10 Active 26236631 Problem Other chronic pain G89.29 Active 8 0579469 Problem Stimulant abuse F15.10 Active 4415 32852 Problem Bipolar II disorder F31.81 Active 54965632 Problem ADD (attention deficit disorder) without hyperactivity F98.8 Active 95081342 ALLERGIES No Information ENCOUNTERS Encounter Location Date Diagnosis [place] [id number] [place] [address] Jul, [facility], [place] [address] [address] Apr, [place] [address] [address] Apr, Bipolar II disorder F31.81 and Social an xiety disorder F40.10 [place] [address] [address] Jan, Bipolar affective disorder, currently de pressed, moderate F31.32 [place] [address] [address] Jan, Bipolar affective disorder, currently de pressed, moderate F31.32 ; Social anxiety disorder F40.10 and Morbid obesity E66.01 [place] [address] [address] May, Screening for lipid disorders Z13.220 [place] [address] [address] May, Carpal tunnel syndrome on left G56.02 ; Social anxiety disorder F40.10 and Screening for lipid disorders Z13.220 [place] [address] [address] 11 Apr, 2018 Bipolar II disorder F31.81 ; Social anxi ety disorder F40.10 ; ADD (attention deficit disorder) without hyperactivity F98.8 and BMI 45.0-49.9, adult Z68.42 [place] [address] [address] 05 Mar, 2018 [place] [address] [address] 17 Feb, 2018 BMI 45.0-49.9, adult Z68.42 ; Carpal sylvia martha syndrome on left G56.02 and Social anxiety disorder F40.[address] [address] Jan, Bipolar II disorder F31.81 ; ADD (attent ion deficit disorder) without hyperactivity F98.8 ; Social anxiety disorder F40.10 and Stimulant abuse F15.[address] [address] Dec, Episode of recurrent major depressive di sorder, unspecified depression episode severity F33.9 ; Other chronic pain G89.29 ; Radiculopathy, lumbar region M54.16 ; Edema of lower extremity R60.0 and BMI 45.0-49.9, adult Z68.[address] [place] [id number] [place] [address] Jun, [facility], [place] [address] [address] Jan, Joint pain M25.50 [facility], [place] [id number] [place] [address] Jan, Wellness examination Z00.00 ; Pain in ri ght knee M25.561 ; Pain in left knee M25.562 ; Edema, unspecified type R60.9 and Drug abuse counseling and surveillance of drug abuser Z71.51 [facility], [place] [address] [address] November, [facility], [place] [address] [address] Oct, [facility], [place] [address] [address] Oct, ADD (attention deficit disorder) F90.0 ; Social anxiety disorder F40.10 and Manic bipolar I disorder in partial remission F31.73 [facility], [place] [address] [address] Aug, [facility], [place] [address] [address] Aug, [facility], [place] [address] [address] Aug, [facility], [place] [address] [address] Jul, [facility], [place] [address] [address] Jul, [facility], [place] [address] [address] Jul, [facility], [place] [address] [address] 16 Jun, 2015 [facility], [place] [address] [address] Jun, [facility], [place] [address] [address] Jun, [facility], [place] [address] [address] Jun, [facility], [place] [address] [address] May, Joint pain M25.50 ; ADD (attention defic it disorder) F90.0 ; Edema R60.9 and Insomnia G47.00 [facility], [place] [address] [address] May, [facility], [place] [address] [address] May, [facility], [place] [address] [address] May, [facility], [place] [address] [address] May, Left wrist pain M25.532 ; Sinusitis J32. 9 and Drug abuse counseling and surveillance of drug abuser Z71.51 [facility], [place] [address] [address] Apr, [facility], [place] [address] [address] Apr, [facility], [place] [address] [address] Apr, [facility], [place] [address] [address] Apr, [facility], [place] [address] [address] Apr, [facility], [place] [address] [address] Apr, [facility], [place] [address] [address] Apr, [facility], [place] [address] [address] Mar, Unspecified venous (peripheral) insuffic iency 459.81 ; Bipolar I disorder, most recent episode (or current) manic, moderate 296.42 ; Social phobia 300.23 ; Attention deficit disorder of childhood without mention of hyperactivity 314.00 ; Pain in joint, lower leg 719.46 ; Thrombosis 453.9 and Chronic pain 338.29 [facility], [place] [address] [address] Mar, [facility], [place] [address] [address] Mar, [facility], [place] [address] [address] Mar, [facility], [place] [address] [address] Mar, [facility], [place] [address] [address] Mar, [facility], [place] [address] [address] Mar, [facility], [place] [address] [address] Mar, Manic bipolar I disorder in partial josephine ssion 296.45 ; Social phobia 300.23 and Attention deficit disorder of childhood without mention of hyperactivity 314.00 [facility], [place] [address] [address] Mar, [facility], [place] [address] [address] Feb, [facility], [place] [address] [address] Feb, Thrombosis 453.9 ; Unspecified venous (p eripheral) insufficiency 459.81 ; Bipolar I disorder, most recent episode (or current) manic, moderate 296.42 ; Social phobia 300.23 ; Attention deficit disorder of childhood without mention of hyperactivity 314.00 ; Pain in joint, lower leg 719.46 and Edema 782.3 [facility], [place] [address] [address] Feb, [facility], [place] [address] [address] Feb, Social phobia 300.23 ; Attention deficit disorder of childhood without mention of hyperactivity 314.00 and Bipolar I disorder, most recent episode manic, in partial remission 296.45 [facility], [place] [address] [address] Jan, [facility], [place] [address] [address] Jan, [facility], [place] [address] [address] Jan, Unspecified venous (peripheral) insuffic iency 459.81 and Thrombophlebitis 451.9 [place] [address] [address] Jan, [facility], [place] [address] [address] Dec, Headache 784.0 and Back pain 724.5 [place] [address] [address] Dec, [facility], [place] [address] [address] Dec, Bipolar I disorder, most recent episode (or current) manic, moderate 296.42 ; Attention deficit disorder of childhood without mention of hyperactivity 314.00 and Social phobia 300.23 [facility], [place] [address] [address] November, [facility], [place] [address] [address] November, [facility], [place] [address] [address] Oct, [facility], [place] [address] [address] Oct, [facility] [place] [facility] [address] [facility] [id number] [place] [address] Sep, [facility] [place] [facility] [address] [id number] [place] [address] Sep, [facility] [place] [facility] [address] [id number] [place] [address] Aug, 2014 [facility] [place] [facility] [address] [id number] [place] [address] Aug, [facility] [place] [facility] [address] [facility] [id number] [place] [address] Aug, [facility] [place] [facility] [address] [id number] [place] [address] Aug, [facility] [place] [facility] [address] [id number] [place] [address] Aug, [facility] [place] [facility] [address] [id number] [place] [address] Aug, [facility] [place] [facility] [address] [id number] [place] [address] Aug, [facility] [place] [facility] [address] [id number] [place] [address] Jul, [facility] [place] [facility] [address] [id number] [place] [address] Jul, [facility] [place] [facility] [address] [id number] [place] [address] Jun, [facility] [place] [facility] [address] [id number] [place] [address] Jun, [facility] [place] [facility] [address] [id number] [place] [address] May, [facility] [place] [facility] [address] [id number] [place] [address] May, [facility] [place] [facility] [address] [id number] [place] [address] May, [facility] [place] [facility] [address] [id number] [place] [address] May, [facility] [place] [facility] [address] [facility] [id number] [place] [address] May, [facility] [place] [facility] [address] [id number] [place] [address] May, [facility] [place] [facility] [address] [id number] [place] [address] Apr, [facility] [place] [facility] [address] [id number] [place] [address] Apr, [facility] [place] [facility] [address] [id number] [place] [address] Apr, [facility] [place] [facility] [address] [id number] [place] [address] Apr, [facility] [place] [facility] [address] [id number] [place] [address] 22 Mar, 2014 [facility] [place] [facility] [address] [id number] [place] [address] 22 Mar, 2013 [facility] [place] [facility] [address] [id number] [place] [address] 19 Mar, 2014 [facility] [place] [facility] [address] [id number] [place] [address] 16 Mar, 2013 [facility] [place] [facility] [address] [id number] [place] [address] 16 Mar, 2013 [facility] [place] [facility] [address] [id number] [place] [address] 15 Mar, 2013 [facility] [place] [facility] [address] [id number] [place] [address] 11 Mar, 2013 [facility] [place] [facility] [address] [id number] [place] [address] 11 Mar, 2013 [facility] [place] [facility] [address] [id number] [place] [address] 11 Mar, 2013 [facility] [place] [facility] [address] [id number] [place] [address] 11 Mar, 2013 [facility] [place] [facility] [address] [id number] [place] [address] 10 Mar, 2013 [facility] [place] [facility] [address] [id number] [place] [address] Mar, 2013 [facility] [place] [facility] [address] [id number] [place] [address] Mar, 2013 [facility] [place] [facility] [address] [id number] [place] [address] Mar, 2013 [facility] [place] [facility] [address] [facility] [id number] [place] [address] Mar, 2013 [facility] [place] [facility] [address] [id number] [place] [address] Feb, [facility] [place] [facility] [address] [id number] [place] [address] Feb, [facility] [place] [facility] [address] [id number] [place] [address] Feb, [facility] [place] [facility] [address] [id number] [place] [address] Feb, [facility] [place] [facility] [address] [id number] [place] [address] Feb, [facility] [place] [facility] [address] [id number] [place] [address] Feb, [facility] [place] [facility] [address] [id number] [place] [address] Feb, [facility] [place] [facility] [address] [id number] [place] [address] Feb, [facility] [place] [facility] [address] [id number] [place] [address] Feb, [facility] [place] [facility] [address] [id number] [place] [address] Feb, [facility] [place] [facility] [address] [id number] [place] [address] Feb, 2013 [facility] [place] [facility] [address] [id number] [place] [address] Feb, 2013 [facility] [place] [facility] [address] [facility] [id number] [facility] [place] [address] Feb, [facility] [place] [facility] [address] [facility] [id number] [facility] [place] [address] Feb, [facility] [place] [facility] [address] [facility] [id number] [facility] [place] [address] Jan, 2013 [facility] [place] [facility] [address] [facility] [id number] [facility] [place] [address] Jan, 2013 [facility] [place] [facility] [address] [facility] [id number] [facility] [place] [address] Jan, 2013 [facility] [place] [facility] [address] [facility] [id number] [place] [address] Jan, 2013 [facility] [place] [facility] [address] [id number] [place] [address] Jan, 2013 [facility] [place] [facility] [address] [id number] [place] [address] Jan, [facility] [place] [facility] [address] [facility] [id number] [place] [address] Jan, [facility] [place] [facility] [address] [id number] [place] [address] Dec, [facility] [place] [facility] [address] [id number] [place] [address] Dec, [facility] [place] [facility] [address] [id number] [place] [address] Dec, [facility] [place] [facility] [address] [facility] [id number] [place] [address] Dec, [facility] [place] [facility] [address] [facility] [id number] [place] [address] Dec, [facility] [place] [facility] [address] [facility] [id number] [place] [address] Dec, [facility] [place] [facility] [address] [id number] [place] [address] Dec, [facility] [place] [facility] [address] [facility] [id number] [place] [address] Dec, [facility] [place] [facility] [address] [id number] [place] [address] Dec, [facility] [place] [facility] [address] [id number] [place] [address] November, [facility] [place] [facility] [address] [id number] [place] [address] November, [facility] [place] [facility] [address] [id number] [place] [address] November, [facility] [place] [facility] [address] [id number] [place] [address] November, [facility] [place] [facility] [address] [id number] [place] [address] November, [facility] [place] [facility] [address] [id number] [place] [address] November, [facility] [place] [facility] [address] [id number] [place] [address] November, [facility] [place] [facility] [address] [id number] [place] [address] November, [facility] [place] [facility] [address] [id number] [place] [address] November, [facility] [place] [facility] [address] [id number] [place] [address] November, [facility] [place] [facility] [address] [id number] [place] [address] November, [facility] [place] [facility] [address] [id number] [place] [address] November, [facility] [place] [facility] [address] [id number] [place] [address] November, [facility] [place] [facility] [address] [id number] [place] [address] November, [facility] [place] [facility] [address] [id number] [place] [address] Oct, [facility] [place] [facility] [address] [id number] [place] [address] Oct, [facility] [place] [facility] [address] [id number] [place] [address] Oct, [facility] [place] [facility] [address] [id number] [place] [address] Oct, [facility] [place] [facility] [address] [id number] [place] [address] Oct, [facility] [place] [facility] [address] [id number] [place] [address] Oct, [facility] [place] [facility] [address] [id number] [place] [address] Sep, [facility] [place] [facility] [address] [id number] [place] [address] Sep, [facility] [place] [facility] [address] [id number] [place] [address] Sep, [facility] [place] [facility] [address] [id number] [place] [address] Sep, [facility] [place] [facility] [address] [id number] [place] [address] Aug, [facility] [place] [facility] [address] [id number] [place] [address] Aug, [facility] [place] [facility] [address] [id number] [place] [address] Aug, [facility] [place] [facility] [address] [id number] [place] [address] Aug, [facility] [place] [facility] [address] [id number] [place] [address] Jul, [facility] [place] [facility] [address] [id number] [place] [address] Jul, [facility] [place] [facility] [address] [id number] [place] [address] Jul, [facility] [place] [facility] [address] [id number] [place] [address] Jul, [facility] [place] [facility] [address] [id number] [place] [address] 15 Jul, 2013 [facility] [place] [facility] [address] [id number] [place] [address] Jul, [facility] [place] [facility] [address] [id number] [place] [address] Jul, [facility] [place] [facility] [address] [id number] [place] [address] Jun, [facility] [place] [facility] [address] [id number] [place] [address] Jun, [facility] [place] [facility] [address] [id number] [place] [address] Jun, [facility] [place] [facility] [address] [id number] [place] [address] 17 Jun, 2013 [facility] [place] [facility] [address] [id number] [place] [address] Jun, [facility] [place] [facility] [address] [id number] [place] [address] Jun, [facility] [place] [facility] [address] [id number] [place] [address] May, [facility] [place] [facility] [address] [id number] [place] [address] 07 May, 2013 [facility] [place] [facility] [address] [id number] [place] [address] 15 Apr, 2013 [facility] [place] [facility] [address] [id number] [place] [address] 15 Apr, 2013 [facility] [place] [facility] [address] [id number] [place] [address] 10 Apr, 2013 [facility] [address] [id number] [place] [address] 10 Apr, 2013 [facility] [address] [id number] [place] [address] 08 Apr, 2013 [facility] [address] [id number] [place] [address] 24 Mar, 2013 [facility] [id number] [place] [address] 19 Mar, 2013 [facility] [address] [id number] [place] [address] 12 Mar, 2013 [facility] [address] [id number] [place] [address] Mar, [facility] [address] [id number] [place] [address] Feb, [facility] [address] [id number] [place] [address] Feb, [facility] [address] [id number] [place] [address] Jan, [facility] [address] [id number] [place] [address] Jan, [facility] [address] [id number] [place] [address] Jan, [facility] [address] [id number] [place] [address] Jan, [facility] [address] [id number] [place] [address] Dec, [facility] [address] [id number] [place] [address] Dec, [facility] [address] [id number] [place] [address] Dec, [facility] [address] [id number] [place] [address] Dec, [facility] [address] [id number] [place] [address] November, [facility] [address] [id number] [place] [address] November, [facility] [address] [id number] [place] [address] Oct, [facility] [address] [id number] [place] [address] Sep, [facility] [address] [id number] [place] [address] 08 Sep, 2012 [facility] [address] [id number] [place] [address] 14 Aug, 2012 [facility] [address] [id number] [place] [address] 13 Aug, 2012 [facility] [address] [id number] [place] [address] Jul, [facility] [address] [id number] [place] [address] Jul, [facility] [address] [id number] [place] [address] Jul, [facility] [id number] [place] [address] 28 Jun, 2012 [facility] [address] [id number] [place] [address] 28 Jun, 2012 [facility] [address] [id number] [place] [address] 15 Jun, 2012 [facility] [address] [id number] [place] [address] 15 Jun, 2012 [facility] [address] [id number] [place] [address] 20 May, 2012 [facility] [address] [id number] [place] [address] 20 May, 2012 [facility] [address] [id number] [place] [address] 19 May, 2012 [facility] [address] [id number] [place] [address] 14 May, 2012 [facility] [address] [id number] [place] [address] 14 May, 2012 [facility] [address] [id number] [place] [address] May, [facility] [address] [id number] [place] [address] May, [facility] [address] [id number] [place] [address] Apr, [facility] [address] [id number] [place] [address] Apr, [facility] [address] [id number] [place] [address] Apr, [facility] [address] [id number] [place] [address] Apr, [facility] [address] [id number] [place] [address] Apr, [facility] [address] [id number] [place] [address] Apr, [facility] [address] [id number] [place] [address] Apr, [facility] [address] [id number] [place] [address] Apr, [facility] [address] [id number] [place] [address] Jan, [facility] [address] [id number] [place] [address] Jan, [facility] [address] [id number] [place] [address] Dec, [facility] [address] [id number] [place] [address] November, [facility] [address] [id number] [place] [address] Oct, [facility] [address] [id number] [place] [address] Oct, [facility] [address] [id number] [place] [address] Oct, [facility] [address] [id number] [place] [address] 02 Oct, 2011 [facility] [address] [id number] [place] [address] Sep, [facility] [address] [id number] [place] [address] Sep, [facility] [address] [id number] [place] [address] Sep, [facility] [address] [id number] [place] [address] 13 Jun, 2011 [facility] [address] [id number] [place] [address] 13 Jun, 2011 [facility] [address] [id number] [place] [address] 22 May, 2011 [facility] [address] [id number] [place] [address] 14 Jan, 2011 [facility] [address] [id number] [place] [address] November, [facility] [address] [id number] [place] [address] 14 Oct, 2010 [facility] [address] [id number] [place] [address] 16 Sep, 2010 [facility] [address] [id number] [place] [address] 30 May, 2010 [facility] [address] [id number] [place] [address] Jul, [facility] [address] [id number] [place] [address] Jun, [facility] [address] [id number] [place] [address] Jun, [facility] [address] [id number] [place] [address] 15 Jun, 2009 [facility] [address] [id number] [place] [address] Jun, [facility] [place] [address] [id number] [place] [address] May, [facility] [place] [address] [id number] [place] [address] May, [facility] [place] [address] [id number] [place] [address] Apr, [facility] [place] [address] [id number] [place] [address] Apr, [facility] [place] [address] [id number] [place] [address] Apr, IMMUNIZATIONS No Known Immunizations SOCIAL HISTORY Never Assessed REASON FOR VISIT PLAN OF CARE VITAL SIGNS Blood pressure systolic 130 mmHg 2013-12-28 Blood pressure diastolic 90 mmHg 2013-12-28 MEDICATIONS Unknown Medications RESULTS No Results PROCEDURES Procedure Date Ordered Result Body Site DRAIN/INJECT, JOINT/BURSA December 28, 2013 INSTRUCTIONS MEDICATIONS ADMINISTERED No Known [...] right 06/1996 Surgical History multiple knee injections ([id number]) Surgical History left knee replacement 06/11 Hospitalization History Knee surgery- x 3 days 06/11
--- NOTE | 2019-12-16 20:29 | ED Lower Extremity ---
General Chief Complaint: Lower Extremity Stated Complaint: LOWER EXT SWELLING Source: patient Exam Limitations: no limitations History of Present Illness Date Seen by Provider: December 16, 2019 Time Seen by Provider: 20:27 Initial Comments To ER with left lower extremities swelling that began earlier today. No fever no chills no shortness of breath. History of DVT, not on oral anticoagulation denies injury to the leg. Onset: this evening Severity: moderate Pain/Injury Location: left leg Method of Injury: unknown Modifying Factors: Worse With Movement Allergies and Home Medications Allergies Coded Allergies: duloxetine HCl (Verified Allergy, 03/04/13) Home Medications Amphet Asp/Amphet/D-Amphet 20 Mg Tablet, 20 MG PO BID, (Reported) Cephalexin Monohydrate 500 Mg Capsule, 1 EACH PO TID Prescribed by: AUGUSTINA ROWAN on 10/24/142242 Gabapentin 400 Mg Capsule, 1 EACH PO QID, (Reported) Hydrochlorothiazide 12.5 Mg Cap, 50 MG PO BID, (Reported) Ibuprofen 400 Mg Tablet, 1 EACH PO QID, (Reported) Patient Home Medication List Home Medication List Reviewed: Yes Review of Systems Constitutional: see HPI; No chills, No fever EENTM: see HPI Respiratory: no symptoms reported; No dyspnea on exertion, No short of breath Cardiovascular: no symptoms reported Genitourinary: no symptoms reported Musculoskeletal: no symptoms reported Skin: no symptoms reported Psychiatric/Neurological: No Symptoms Reported Past Qbutchk-Eyxkdi-Bzfryz Hx Patient Social History Recent Foreign Travel: No Contact w/Someone Who Travel: No Immunizations Up To Date Tetanus Booster (TDap): Less than 5yrs PED Vaccines UTD: Yes Past Medical History [employer] History: Menopausal Degenerate Disk Disease, Chronic Back Pain ADD/ADHD, Depression Physical Exam Vital Signs Vital Signs - First Documented 12/16/19 20:21 Temp 36.9 Pulse 104 Resp 21 B/P (MAP) 136/97 (110) Pulse Ox 97 O2 Delivery Room Air Capillary Refill : Height, Weight, BMI Height: 5'1" Weight: 205lbs. oz. 92.900036cx; BMI Method:Stated General Appearance: WD/WN, no apparent distress HEENT: PERRL/EOMI, normal ENT inspection Respiratory: no respiratory distress, no accessory muscle use Hips: bilateral hip non-tender, bilateral hip normal inspection, bilateral hip normal range of motion Legs: bilateral leg non-tender; left leg other (no erythema to either lower extremity, body habitus precludes evaluation of swelling on one side versus another. She has a strong dorsalis pedis pulses bilaterally.) Knees: bilateral knee non-tender, bilateral knee normal inspection, bilateral knee normal range of motion Ankles: bilateral ankle non-tender, bilateral ankle normal inspection, bilateral ankle normal range of motion Feet: bilateral foot non-tender, bilateral foot normal inspection, bilateral foot normal range of motion Neurologic/Psychiatric: alert, normal mood/affect Skin: normal color, warm/dry Progress/Results/Core Measures Results/Orders Lab Results Laboratory Tests Test 12/16/19 20:34 Range/Units White Blood Count 7.6 4.3-11.0 10^3/uL Red Blood Count 4.27 L 4.35-5.85 10^6/uL Hemoglobin 12.9 11.5-16.0 G/DL Hematocrit 40 35-52 % Mean Corpuscular Volume 94 80-99 FL Mean Corpuscular Hemoglobin 30 25-34 PG Mean Corpuscular Hemoglobin Concent 32 32-36 G/DL Red Cell Distribution Width 14.5 10.0-14.5 % Platelet Count 294 130-400 10^3/uL Mean Platelet Volume 9.8 7.4-10.4 FL Neutrophils (%) (Auto) 52 42-75 % Lymphocytes (%) (Auto) 39 12-44 % Monocytes (%) (Auto) 6 0-12 % Eosinophils (%) (Auto) 2 0-10 % Basophils (%) (Auto) 1 0-10 % Neutrophils # (Auto) 4.0 1.8-7.8 X 10^3 Lymphocytes # (Auto) 3.0 1.0-4.0 X 10^3 Monocytes # (Auto) 0.4 0.0-1.0 X 10^3 Eosinophils # (Auto) 0.2 0.0-0.3 10^3/uL Basophils # (Auto) 0.1 0.0-0.1 10^3/uL D-Dimer 1.03 H 0.00-0.49 UG/ML Sodium Level 139 135-145 MMOL/L Potassium Level 3.7 3.6-5.0 MMOL/L Chloride Level 110 H 98-107 MMOL/L Carbon Dioxide Level 16 L 21-32 MMOL/L Anion Gap 13 5-14 MMOL/L Blood Urea Nitrogen 12 7-18 MG/DL Creatinine 0.77 0.60-1.30 MG/DL Estimat Glomerular Filtration Rate > 60 BUN/Creatinine Ratio 16 Glucose Level 102 70-105 MG/DL Calcium Level 8.6 8.5-10.1 MG/DL My Orders Orders - AUGUSTINA ROWAN APRN Cbc With Automated Diff (12/16/19 20:26) Fibrin Degradation Products (12/16/19 20:26) Basic Metabolic Panel (12/16/19 20:26) Vital Signs/I&O 12/16/19 20:21 Temp 36.9 Pulse 104 Resp 21 B/P (MAP) 136/97 (110) Pulse Ox 97 O2 Delivery Room Air Departure Communication (Admissions) 2108-discussed with her the elevated d-dimer which could indicate DVT or any number of other things. The leg is not erythematous or obviously swollen. Discussed that we do not have ultrasound available here on the weekends and Wednesday is a holiday. I have written an outpatient order for left lower extremity venous ultrasound. Discussed with her what to do in the meantime as far as anticoagulation versus no anticoagulation. She states that she takes quite a bit of ibuprofen and occasionally has some GI upset, discussed with her the risk of causing a gastric ulcer to bleed if we start anticoagulation versus the risk of clot propagation if we don't treat tonight. We've agreed to use a baby aspirin daily for the next 2-3 days until an ultrasound is done to confirm or refute DVT diagnosis. Impression Primary Impression: history of swelling left lower extremity Additional Impression: History of DVT of lower extremity Disposition: HOME, SELF-CARE Condition: Stable Departure-Patient Inst. Decision time for Depature: 21:11 Referrals: [facility] [place] Primary Care Physician DARLING WILKINS (Family) Primary Care Physician Patient Instructions: Deep Vein Thrombosis (Blood Clots in the Legs) (DC) Add. Discharge Instructions: Elevate the leg as much as possible. Baby aspirin daily in the meantime. Call the scheduling department on Wednesday to make an appointment for the ultrasound. Since Wednesday is a holiday you may have to call Wednesday to make the appointment. All discharge instructions reviewed with patient and/or family. Voiced understanding. Copy Copies To 1: DARLING HERNANDEZ MD, PETER J APRN December 16, 2019 20:29
--- OUTSIDE RECORDS SUMMARY | 2019-12-16 20:29 | XMS REPORT ---
Author Author Patti Guzman Doctor Organization [facility] Address Unknown Phone Unavailable Care Team Providers Care Singing Messenger Name Role Phone Migration, Doctor Unavailable Unavailable PROBLEMS Type Condition ICD9-CM Code MWC60-RE Code Onset Dates Condition S tatus SNOMED Code Problem ADD (attention deficit disorder) F90.0 Active 372212406 Problem Drug abuse counseling and surveillance of drug abuser Z71.51 Active 547614136 Problem Insomnia G47.00 Active 081412785 Problem Joint pain M25.50 Active 49733633 Problem Edema, unspecified type R60.9 Active 744918609 Problem Episode of recurrent major d epressive disorder, unspecified depression episode severity F33.9 Active 928915498 Problem Venous insufficiency (chronic) (peripheral) I87.2 Active [id number] Problem Carpal tunnel syndrome on left G56.02 Active 950654120316529 Problem Manic bipolar I disorder in partial remission F31. 73 Active 31441051 Problem Bipolar affective disorder, currently depressed, moderate F31.32 Active 262916737 Problem Social anxiety disorder F40.10 Active 81812692 Problem Other chronic pain G89.29 Active 8 6604372 Problem Stimulant abuse F15.10 Active 4415 04055 Problem Bipolar II disorder F31.81 Active 26388503 Problem ADD (attention deficit disorder) without hyperactivity F98.8 Active 07332037 ALLERGIES No Information ENCOUNTERS Encounter Location Date Diagnosis [facility] [address] [id number] [address] [place] [address] Jul, [facility] [address] [facility] [id number] [address] [place] [address] Apr, Bipolar II disorder F31.81 a nd Social anxiety disorder F40.10 [facility] [address] [facility] [id number] [address] [place] [address] Jan, Bipolar affective disorder, currently depressed, moderate F31.32 [place] [address] [address] 16 Jan, 2019 Bipolar affective disorder, currently depressed, moderate F31.32 ; Social anxiety disorder F40.10 and Morbid obesity E66.01 [place] [address] [address] May, Screening for lipid disorder s Z13.220 [place] [address] [address] May, Carpal tunnel syndrome on le ft G56.02 ; Social anxiety disorder F40.10 and Screening for lipid disorders Z13.220 [place] [address] [address] 11 Apr, 2018 Bipolar II disorder F31.81 ; Social anxiety disorder F40.10 ; ADD (attention deficit disorder) without hyperactivity F98.8 and BMI 45.0-49.9, adult Z68.42 [place] [address] [address] 05 Mar, 2018 [place] [address] [address] 17 Feb, 2018 BMI 45.0-49.9, adult Z68.42 ; Carpal tunnel syndrome on left G56.02 and Social anxiety disorder F40.10 [place] [address] [address] 09 Jan, 2018 Bipolar II disorder F31.81 ; ADD (attention deficit disorder) without hyperactivity F98.8 ; Social anxiety disorder F40.10 and Stimulant abuse F15.10 [place] [address] [address] Dec, Episode of recurrent major d epressive disorder, unspecified depression episode severity F33.9 ; Other chronic pain G89.29 ; Radiculopathy, lumbar region M54.16 ; Edema of lower extremity R60.0 and BMI 45.0-49.9, adult Z68.42 [place] [address] [address] Jun, [facility] [address] [id number] [address] [place] [address] Jan, Joint pain M25.50 [facility] [address] [id number] [address] [place] [address] Jan, Wellness examination Z00.00 ; Pain in right knee M25.561 ; Pain in left knee M25.562 ; Edema, unspecified type R60.9 and Drug abuse counseling and surveillance of drug abuser Z71.51 [facility] [address] [id number] [address] [place] [address] November, [facility] [address] [id number] [address] [place] [address] Oct, [facility] [address] [facility] [id number] [address] [place] [address] Oct, ADD (attention deficit disor josselin) F90.0 ; Social anxiety disorder F40.10 and Manic bipolar I disorder in partial remission F31.73 [facility] [address] [id number] [address] [place] [address] Aug, [facility] [address] [id number] [address] [place] [address] Aug, [facility] [address] [id number] [address] [place] [address] Aug, [facility] [address] [id number] [address] [place] [address] Jul, [facility] [address] [id number] [address] [place] [address] Jul, [facility] [address] [id number] [address] [place] [address] Jul, [facility] [address] [facility] [id number] [address] [place] [address] Jun, [facility] [address] [id number] [address] [place] [address] Jun, [facility] [address] [facility] [id number] [address] [place] [address] Jun, [facility] [address] [facility] [id number] [address] [place] [address] Jun, [facility] [address] [facility] [id number] [address] [place] [address] May, Joint pain M25.50 ; ADD (att ention deficit disorder) F90.0 ; Edema R60.9 and Insomnia G47.00 [facility] [address] [facility] [id number] [address] [place] [address] May, [facility] [address] [facility] [id number] [address] [place] [address] May, [facility] [address] [id number] [address] [place] [address] May, [facility] [address] [facility] [id number] [address] [place] [address] May, Left wrist pain M25.532 ; Si nusitis J32.9 and Drug abuse counseling and surveillance of drug abuser Z71.51 [facility] [address] [facility] [id number] [address] [place] [address] Apr, [facility] [address] [facility] [id number] [address] [place] [address] Apr, [facility] [address] [facility] [id number] [address] [place] [address] Apr, [facility] [address] [facility] [id number] [address] [place] [address] Apr, [facility] [address] [id number] [address] [place] [address] Apr, [facility] [address] [facility] [id number] [address] [place] [address] Apr, [facility] [address] [id number] [address] [place] [address] Apr, [facility] [address] [id number] [address] [place] [address] Mar, Unspecified venous (peripher al) insufficiency 459.81 ; Bipolar I disorder, most recent episode (or current) manic, moderate 296.42 ; Social phobia 300.23 ; Attention deficit disorder of childhood without mention of hyperactivity 314.00 ; Pain in joint, lower leg 719.46 ; Thrombosis 453.9 and Chronic pain 338.29 [facility] [address] [id number] [address] [place] [address] Mar, [facility] [address] [id number] [address] [place] [address] Mar, [facility] [address] [id number] [address] [place] [address] Mar, [facility] [address] [id number] [address] [place] [address] Mar, [facility] [address] [id number] [address] [place] [address] Mar, [facility] [address] [id number] [address] [place] [address] Mar, [facility] [address] [id number] [address] [place] [address] 10 Mar, 2015 Manic bipolar I disorder in partial remission 296.45 ; Social phobia 300.23 and Attention deficit disorder of childhood without mention of hyperactivity 314.00 [facility] [address] [id number] [address] [place] [address] Mar, [facility] [address] [id number] [address] [place] [address] Feb, [facility] [address] [id number] [address] [place] [address] Feb, Thrombosis 453.9 ; Unspecifi ed venous (peripheral) insufficiency 459.81 ; Bipolar I disorder, most recent episode (or current) manic, moderate 296.42 ; Social phobia 300.23 ; Attention deficit disorder of childhood without mention of hyperactivity 314.00 ; Pain in joint, lower leg 719.46 and Edema 782.3 [facility] [address] [id number] [address] [place] [address] Feb, [facility] [address] [facility] [id number] [address] [place] [address] Feb, Social phobia 300.23 ; Atten tion deficit disorder of childhood without mention of hyperactivity 314.00 and Bipolar I disorder, most recent episode manic, in partial remission 296.45 [facility] [address] [facility] [id number] [address] [place] [address] Jan, [facility] [address] [id number] [address] [place] [address] Jan, [facility] [address] [facility] [id number] [address] [place] [address] Jan, Unspecified venous (peripher al) insufficiency 459.81 and Thrombophlebitis 451.9 [facility] [address] [facility] [id number] [address] [place] [address] Jan, [facility] [address] [facility] [id number] [address] [place] [address] Dec, Headache 784.0 and Back pain 724.5 [facility] [address] [facility] [id number] [address] [place] [address] Dec, [facility] [address] [facility] [id number] [address] [place] [address] Dec, Bipolar I disorder, most rec ent episode (or current) manic, moderate 296.42 ; Attention deficit disorder of childhood without mention of hyperactivity 314.00 and Social phobia 300.23 [facility] [address] [facility] [id number] [address] [place] [address] November, [facility] [address] [id number] [address] [place] [address], [place] [address] November, [facility] [address] [id number] [address] [place] [address], [place] [address] 14 Oct, 2014 [facility] [address] [id number] [address] [place] [address], [place] [address] Oct, [facility] [address] [id number] [address] [place] [address], [place] [address] Sep, [facility] [address] [id number] [address] [place] [address], [place] [address] Sep, [facility] [address] [id number] [address] [place] [address], [place] [address] Aug, [facility] [address] [id number] [address] [place] [address], [place] [address] Aug, [facility] [address] [id number] [address] [place] [address], [place] [address] Aug, [facility] [address] [id number] [address] [place] [address], [place] [address] Aug, [facility] [address] [id number] [address] [place] [address], [place] [address] Aug, [facility] [address] [id number] [address] [place] [address], [place] [address] Aug, [facility] [address] [id number] [address] [place] [address], [place] [address] Aug, [facility] [address] [id number] [address] [place] [address], [place] [address] Jul, [facility] [address] [id number] [address] [place] [address], [place] [address] Jul, [facility] [address] [id number] [address] [place] [address], [place] [address] Jun, [facility] [address] [id number] [address] [place] [address] [address] Jun, [facility] [address] [id number] [address] [place] [address], [place] [address] May, [facility] [address] [id number] [address] [place] [address], [place] [address] May, [facility] [address] [id number] [address] [place] [address], [place] [address] May, [facility] [address] [id number] [address] [place] [address], [place] [address] May, [facility] [address] [id number] [address] [place] [address], [place] [address] May, [facility] [address] [id number] [address] [place] [address], [place] [address] May, [facility] [address] [id number] [address] [place] [address], [place] [address] Apr, [facility] [address] [id number] [address] [place] [address], [place] [address] Apr, [facility] [address] [id number] [address] [place] [address], [place] [address] Apr, [facility] [address] [id number] [address] [place] [address], [place] [address] Apr, [facility] [address] [id number] [address] [place] [address], [place] [address] Mar, [facility] [address] [id number] [address] [place] [address], [place] [address] 22 Mar, 2014 [facility] [address] [id number] [address] [place] [address], [place] [address] 19 Mar, 2014 [facility] [address] [id number] [address] [place] [address], [place] [address] 16 Mar, 2014 [facility] [address] [id number] [address] [place] [address], [place] [address] 16 Mar, 2014 [facility] [address] [id number] [facility] [place] [address] 15 Mar, 2013 [facility] [address] [id number] [address] [place] [address], [place] [address] 11 Mar, 2013 [facility] [address] [id number] [facility] [place] [address] 11 Mar, 2013 [facility] [address] [id number] [address] [place] [address], [place] [address] 11 Mar, 2013 [facility] [address] [id number] [address] [place] [address], [place] [address] 11 Mar, 2013 [facility] [address] [id number] [address] [place] [address], [place] [address] 10 Mar, 2013 [facility] [address] [id number] [address] [place] [address], [place] [address] 09 Mar, 2013 [facility] [address] [id number] [address] [place] [address], [place] [address] 09 Mar, 2013 [facility] [address] [id number] [address] [place] [address], [place] [address] 02 Mar, 2013 [facility] [address] [id number] [address] [place] [address], [place] [address] Mar, 2013 [facility] [address] [id number] [address] [place] [address], [place] [address] Feb, [facility] [address] [id number] [address] [place] [address], [place] [address] Feb, [facility] [address] [id number] [address] [place] [address], [place] [address] Feb, [facility] [address] [id number] [address] [place] [address], [place] [address] Feb, [facility] [address] [id number] [address] [place] [address], [place] [address] Feb, [facility] [address] [id number] [address] [place] [address], [place] [address] Feb, [facility] [address] [id number] [facility] [place] [address] Feb, [facility] [address] [id number] [address] [place] [address], [place] [address] Feb, [facility] [address] [id number] [address] [place] [address], [place] [address] Feb, [facility] [address] [id number] [address] [place] [address], [place] [address] Feb, [facility] [address] [id number] [address] [place] [address], [place] [address] Feb, [facility] [address] [id number] [address] [place] [address], [place] [address] Feb, [facility] [address] [id number] [address] [place] [address], [place] [address] Feb, [facility] [address] [id number] [address] [place] [address], [place] [address] Feb, [facility] [address] [id number] [address] [place] [address], [place] [address] Jan, [facility] [address] [id number] [address] [place] [address], [place] [address] Jan, [facility] [address] [id number] [address] [place] [address], [place] [address] Jan, [facility] [address] [id number] [address] [place] [address], [place] [address] Jan, [facility] [address] [id number] [address] [place] [address], [place] [address] Jan, [facility] [address] [id number] [address] [place] [address], [place] [address] Jan, [facility] [address] [id number] [address] [place] [address], [place] [address] Jan, [facility] [address] [id number] [address] [place] [address], [place] [address] Dec, [facility] [address] [id number] [facility] [place] [address] Dec, [facility] [address] [id number] [address] [place] [address], [place] [address] Dec, [facility] [address] [id number] [address] [place] [address], [place] [address] Dec, [facility] [address] [id number] [address] [place] [address], [place] [address] Dec, [facility] [address] [id number] [address] [place] [address], [place] [address] Dec, [facility] [address] [id number] [address] [place] [address], [place] [address] Dec, [facility] [address] [id number] [address] [place] [address], [place] [address] Dec, [facility] [address] [id number] [address] [place] [address], [place] [address] Dec, [facility] [address] [id number] [address] [place] [address], [place] [address] November, [facility] [address] [id number] [address] [place] [address], [place] [address] November, [facility] [address] [id number] [address] [place] [address], [place] [address] November, [facility] [address] [id number] [address] [place] [address], [place] [address] November, [facility] [address] [id number] [address] [place] [address], [place] [address] November, [facility] [address] [id number] [address] [place] [address], [place] [address] November, [facility] [address] [id number] [address] [place] [address], [place] [address] November, [facility] [address] [id number] [address] [place] [address], [place] [address] November, [facility] [address] [id number] [address] [place] [address], [place] [address] November, [facility] [address] [id number] [address] [place] [address], [place] [address] November, [facility] [address] [id number] [address] [place] [address], [place] [address] November, [facility] [address] [id number] [address] [place] [address], [place] [address] November, [facility] [address] [id number] [address] [place] [address], [place] [address] November, [facility] [address] [id number] [address] [place] [address], [place] [address] November, [facility] [address] [id number] [address] [place] [address], [place] [address] Oct, [facility] [address] [id number] [address] [place] [address], [place] [address] Oct, [facility] [address] [id number] [address] [place] [address], [place] [address] Oct, [facility] [address] [id number] [address] [place] [address], [place] [address] Oct, [facility] [address] [id number] [address] [place] [address], [place] [address] Oct, [facility] [address] [id number] [address] [place] [address], [place] [address] Oct, [facility] [address] [id number] [address] [place] [address], [place] [address] Sep, [facility] [address] [id number] [address] [place] [address], [place] [address] Sep, [facility] [address] [id number] [address] [place] [address], [place] [address] Sep, [facility] [address] [id number] [address] [place] [address], [place] [address] Sep, [facility] [address] [id number] [address] [place] [address], [place] [address] Aug, [facility] [address] [id number] [address] [place] [address], [place] [address] Aug, [facility] [address] [id number] [address] [place] [address], [place] [address] Aug, [facility] [address] [id number] [address] [place] [address], [place] [address] Aug, [facility] [address] [id number] [address] [place] [address], [place] [address] Jul, [facility] [address] [id number] [address] [place] [address], [place] [address] Jul, [facility] [address] [id number] [address] [place] [address], [place] [address] Jul, [facility] [address] [id number] [address] [place] [address], [place] [address] Jul, [facility] [address] [id number] [address] [place] [address], [place] [address] Jul, [facility] [address] [id number] [address] [place] [address], [place] [address] Jul, [facility] [address] [id number] [address] [place] [address], [place] [address] Jul, [facility] [address] [id number] [address] [place] [address], [place] [address] Jun, [facility] [address] [id number] [address] [place] [address], [place] [address] Jun, [facility] [address] [id number] [address] [place] [address], [place] [address] Jun, [facility] [address] [id number] [address] [place] [address], [place] [address] 17 Jun, 2013 [facility] [address] [id number] [address] [place] [address], [place] [address] 13 Jun, 2013 [facility] [address] [id number] [address] [place] [address], [place] [address] 13 Jun, 2013 [facility] [address] [id number] [address] [place] [address], [place] [address] 07 May, 2013 [facility] [address] [id number] [address] [place] [address], [place] [address] 07 May, 2013 [facility] [address] [id number] [address] [place] [address], [place] [address] 15 Apr, 2013 [facility] [address] [id number] [address] [place] [address], [place] [address] 15 Apr, 2013 [facility] [address] [id number] [address] [place] [address], [place] [address] 10 Apr, 2013 [facility] [facility] [address] [id number] [address] [place] [address], [place] [address] 10 Apr, 2013 [facility] [address] [id number] [address] [place] [address], [place] [address] 08 Apr, 2013 [facility] [address] [id number] [address] [place] [address], [place] [address] 24 Mar, 2013 [facility] [address] [id number] [address] [place] [address], [place] [address] 19 Mar, 2013 [facility] [address] [id number] [address] [place] [address], [place] [address] 12 Mar, 2013 [facility] [address] [id number] [address] [place] [address], [place] [address] 10 Mar, 2013 [facility] [address] [id number] [address] [place] [address], [place] [address] 16 Feb, 2013 [facility] [address] [id number] [address] [place] [address], [place] [address] Feb, [facility] [address] [id number] [address] [place] [address], [place] [address] Jan, [facility] [address] [id number] [address] [place] [address], [place] [address] Jan, [facility] [address] [id number] [address] [place] [address], [place] [address] Jan, [facility] [address] [id number] [address] [place] [address], [place] [address] Jan, [facility] [address] [id number] [address] [place] [address], [place] [address] Dec, [facility] [address] [id number] [address] [place] [address], [place] [address] Dec, [facility] [address] [id number] [address] [place] [address], [place] [address] Dec, [facility] [address] [id number] [address] [place] [address], [place] [address] Dec, [facility] [address] [id number] [address] [place] [address], [place] [address] November, [facility] [address] [id number] [address] [place] [address], [place] [address] November, [facility] [address] [id number] [address] [place] [address], [place] [address] Oct, [facility] [address] [id number] [address] [place] [address], [place] [address] Sep, [facility] [address] [id number] [address] [place] [address], [place] [address] Sep, [facility] [address] [id number] [address] [place] [address], [place] [address] 14 Aug, 2012 [facility] [address] [id number] [address] [place] [address], [place] [address] Aug, [facility] [address] [id number] [address] [place] [address] Jul, [facility] [address] [id number] [address] [place] [address], [place] [address] Jul, [facility] [address] [id number] [address] [place] [address] Jul, [facility] [address] [id number] [address] [place] [address], [place] [address] Jun, [facility] [address] [id number] [address] [place] [address], [place] [address] Jun, [facility] [address] [id number] [address] [place] [address], [place] [address] Jun, [facility] [address] [id number] [address] [place] [address], [place] [address] Jun, [facility] [address] [id number] [address] [place] [address], [place] [address] May, [facility] [address] [id number] [address] [place] [address], [place] [address] May, [facility] [address] [id number] [address] [place] [address], [place] [address] May, [facility] [address] [id number] [address] [place] [address], [place] [address] May, [facility] [address] [id number] [address] [place] [address] May, [facility] [address] [id number] [address] [place] [address] May, [facility] [address] [id number] [address] [place] [address], [place] [address] May, [facility] [address] [id number] [address] [place] [address], [place] [address] 15 Apr, 2012 [facility] [address] [id number] [address] [place] [address], [place] [address] 15 Apr, 2012 [facility] [address] [id number] [address] [place] [address], [place] [address] 15 Apr, 2012 [facility] [address] [id number] [address] [place] [address], [place] [address] Apr, [facility] [address] [id number] [address] [place] [address], [place] [address] Apr, [facility] [address] [id number] [address] [place] [address], [place] [address] Apr, [facility] [address] [id number] [address] [place] [address], [place] [address] Apr, [facility] [address] [id number] [address] [place] [address], [place] [address] Apr, [facility] [address] [id number] [address] [place] [address], [place] [address] Jan, [facility] [address] [id number] [address] [place] [address], [place] [address] Jan, [facility] [address] [id number] [address] [place] [address], [place] [address] Dec, [facility] [address] [id number] [address] [place] [address], [place] [address] November, [facility] [address] [id number] [address] [place] [address], [place] [address] Oct, [facility] [address] [id number] [address] [place] [address], [place] [address] Oct, [facility] [address] [id number] [address] [place] [address], [place] [address] Oct, [facility] [address] [id number] [address] [place] [address], [place] [address] Oct, [facility] [address] [id number] [address] [place] [address], [place] [address] Sep, [facility] [address] [id number] [address] [place] [address], [place] [address] Sep, [facility] [address] [id number] [address] [place] [address], [place] [address] 26 Sep, 2011 [facility] [address] [id number] [address] [place] [address], [place] [address] 13 Jun, 2011 [facility] [address] [id number] [address] [place] [address], [place] [address] 13 Jun, 2011 [facility] [address] [id number] [address] [place] [address], [place] [address] 22 May, 2011 [facility] [address] [id number] [address] [place] [address], [place] [address] 14 Jan, 2011 [facility] [address] [id number] [address] [place] [address], [place] [address] 19 Nov, 2010 [facility] [address] [id number] [address] [place] [address], [place] [address] 14 Oct, 2010 [facility] [address] [id number] [address] [place] [address], [place] [address] 16 Sep, 2010 [facility] [address] [id number] [address] [place] [address], [place] [address] 30 May, 2010 [facility] [address] [id number] [address] [place] [address], [place] [address] 19 Jul, 2009 [facility] [address] [id number] [address] [place] [address], [place] [address] 23 Jun, 2009 [facility] [address] [id number] [address] [place] [address], [place] [address] 23 Jun, 2009 [facility] [address] [id number] [address] [place] [address], [place] [address] 15 Jun, 2009 [facility] [address] [id number] [address] [place] [address], [place] [address] 15 Jun, 2009 [facility] [address] [id number] [address] [place] [address], [place] [address] 17 May, 2009 [facility] [address] [id number] [address] [place] [address] May, [facility] [address] [facility] [id number] [address] [place] [address] Apr, [facility] [address] [facility] [id number] [address] [place] [address] Apr, [facility] [address] [facility] [id number] [address] [place] [address] Apr, IMMUNIZATIONS No Known Immunizations SOCIAL HISTORY [...] right 06/1996 Surgical History multiple knee injections ([id number]) Surgical History left knee replacement 06/11 Hospitalization History Knee surgery- x 3 days 06/11
--- OUTSIDE RECORDS SUMMARY | 2019-12-16 20:29 | XMS REPORT ---
Author Author Patti HERNANDEZ Organization [facility] Address [address] [place] [address] Care Team Providers Care Manager Area Name Role Phone DARLING HERNANDEZ Unavailable PROBLEMS Type Condition ICD9-CM Code QHM82-SN Code Onset Dates Condition S tatus SNOMED Code Problem ADD (attention deficit disorder) F90.0 Active 730557922 Problem Drug abuse counseling and surveillance of drug abuser Z71.51 Active 878271335 Problem Insomnia G47.00 Active 443201334 Problem Joint pain M25.50 Active 85558691 Problem Edema, unspecified type R60.9 Active 723624478 Problem Episode of recurrent major d epressive disorder, unspecified depression episode severity F33.9 Active 048038516 Problem Venous insufficiency (chronic) (peripheral) I87.2 Active 48954603350210628 Problem Carpal tunnel syndrome on left G56.02 Active 024254975152728 Problem Manic bipolar I disorder in partial remission F31. 73 Active 87934047 Problem Bipolar affective disorder, currently depressed, moderate F31.32 Active 253084883 Problem Social anxiety disorder F40.10 Active 86313086 Problem Other chronic pain G89.29 Active 8 7752704 Problem Stimulant abuse F15.10 Active 4415 16329 Problem Bipolar II disorder F31.81 Active 94540134 Problem ADD (attention deficit disorder) without hyperactivity F98.8 Active 86451367 ALLERGIES No Information ENCOUNTERS Encounter Location Date Diagnosis [place] [id number] [id number] [place] [address] Jul, [facility] [address] [id number] [place] [address] Apr, [place] [address] [id number] [place] [address] Apr, Bipolar II disorder F31.81 and Social an xiety disorder F40.10 [place] [address] [address] Jan, Bipolar affective disorder, currently de pressed, moderate F31.[address] [address] Jan, Bipolar affective disorder, currently de pressed, moderate F31.32 ; Social anxiety disorder F40.10 and Morbid obesity E66.[address] [address] May, Screening for lipid disorders Z13.220 [place] [address] [address] May, Carpal tunnel syndrome on left G56.02 ; Social anxiety disorder F40.10 and Screening for lipid disorders Z13.220 [place] [address] [address] 11 Apr, 2018 Bipolar II disorder F31.81 ; Social anxi ety disorder F40.10 ; ADD (attention deficit disorder) without hyperactivity F98.8 and BMI 45.0-49.9, adult Z68.[address] [address] 05 Mar, [address] [address] Feb, BMI 45.0-49.9, adult Z68.42 ; Carpal sylvia martha syndrome on left G56.02 and Social anxiety disorder F40.[address] [address] Jan, Bipolar II disorder F31.81 ; ADD (attent ion deficit disorder) without hyperactivity F98.8 ; Social anxiety disorder F40.10 and Stimulant abuse F15.[address] [address] Dec, Episode of recurrent major depressive di sorder, unspecified depression episode severity F33.9 ; Other chronic pain G89.29 ; Radiculopathy, lumbar region M54.16 ; Edema of lower extremity R60.0 and BMI 45.0-49.9, adult Z68.42 [facility] [address] [address] Jun, [facility] [address] [address] Jan, Joint pain M25.50 [facility] [address] [address] Jan, Wellness examination Z00.00 ; Pain in ri ght knee M25.561 ; Pain in left knee M25.562 ; Edema, unspecified type R60.9 and Drug abuse counseling and surveillance of drug abuser Z71.51 [place] [address] [address] November, [place] [address] [address] Oct, [place] [address] [address] Oct, ADD (attention deficit disorder) F90.0 ; Social anxiety disorder F40.10 and Manic bipolar I disorder in partial remission F31.73 [place] [address] [address] Aug, [facility] [address] [address] Aug, [facility] [address] [address] Aug, [facility] [address] [address] Jul, [facility] [address] [address] Jul, [facility] [address] [address] Jul, [facility] [address] [address] Jun, [facility] [address] [address] Jun, [facility] [address] [address] Jun, [facility] [address] [address] Jun, [facility] [address] [address] May, Joint pain M25.50 ; ADD (attention defic it disorder) F90.0 ; Edema R60.9 and Insomnia G47.00 [facility] [address] [address] May, [facility] [address] [address] May, [facility] [address] [address] May, [facility] [address] [address] May, Left wrist pain M25.532 ; Sinusitis J32. 9 and Drug abuse counseling and surveillance of drug abuser Z71.51 [facility] [address] [address] Apr, [facility] [address] [address] Apr, [facility] [address] [address] Apr, [facility] [address] [address] Apr, [facility] [address] [address] Apr, [facility] [address] [address] Apr, [facility] [address] [address] Apr, [facility] [address] [address] Mar, Unspecified venous (peripheral) insuffic iency 459.81 ; Bipolar I disorder, most recent episode (or current) manic, moderate 296.42 ; Social phobia 300.23 ; Attention deficit disorder of childhood without mention of hyperactivity 314.00 ; Pain in joint, lower leg 719.46 ; Thrombosis 453.9 and Chronic pain 338.29 [facility] [address] [address] Mar, [facility] [address] [address] Mar, [facility] [address] [address] Mar, [facility] [address] [address] Mar, [facility] [address] [address] Mar, [facility] [address] [address] Mar, [facility] [address] [address] 10 Mar, 2015 Manic bipolar I disorder in partial josephine ssion 296.45 ; Social phobia 300.23 and Attention deficit disorder of childhood without mention of hyperactivity 314.00 [facility] [address] [address] Mar, [facility] [address] [address] Feb, [facility] [address] [address] Feb, Thrombosis 453.9 ; Unspecified venous (p eripheral) insufficiency 459.81 ; Bipolar I disorder, most recent episode (or current) manic, moderate 296.42 ; Social phobia 300.23 ; Attention deficit disorder of childhood without mention of hyperactivity 314.00 ; Pain in joint, lower leg 719.46 and Edema 782.3 [facility] [address] [address] Feb, [facility] [address] [address] Feb, Social phobia 300.23 ; Attention deficit disorder of childhood without mention of hyperactivity 314.00 and Bipolar I disorder, most recent episode manic, in partial remission 296.45 [facility] [address] [address] Jan, [facility] [address] [address] Jan, [facility] [address] [address] Jan, Unspecified venous (peripheral) insuffic iency 459.81 and Thrombophlebitis 451.9 [facility] [address] [address] Jan, [facility] [address] [address] Dec, Headache 784.0 and Back pain 724.5 [facility] [address] [address] Dec, [facility] [address] [address] Dec, Bipolar I disorder, most recent episode (or current) manic, moderate 296.42 ; Attention deficit disorder of childhood without mention of hyperactivity 314.00 and Social phobia 300.23 [facility] [address] [address] November, [facility] [address] [address] November, [facility] [address] [address] Oct, [facility] [address] [id number] [place] [address] Oct, [facility] [address] [id number] [place] [address] Sep, [facility] [address] [id number] [place] [address] Sep, [facility] [address] [id number] [place] [address] Aug, 2014 [facility] [address] [id number] [place] [address] Aug, 2014 [facility] [address] [id number] [place] [address] Aug, 2014 [facility] [address] [id number] [place] [address] Aug, 2014 [facility] [address] [id number] [place] [address] Aug, 2014 [facility] [address] [id number] [place] [address] Aug, [facility] [address] [id number] [place] [address] Aug, [facility] [address] [id number] [place] [address] Jul, [facility] [address] [id number] [place] [address] Jul, [facility] [address] [id number] [place] [address] Jun, [facility] [address] [id number] [place] [address] Jun, [facility] [address] [id number] [place] [address] May, [facility] [address] [id number] [place] [address] May, [facility] [address] [id number] [place] [address] May, [facility] [address] [facility] [id number] [place] [address] May, [facility] [address] [facility] [id number] [place] [address] May, [facility] [address] [id number] [place] [address] May, [facility] [address] [id number] [place] [address] Apr, [facility] [address] [facility] [id number] [place] [address] Apr, [facility] [address] [id number] [place] [address] Apr, [facility] [address] [id number] [place] [address] Apr, [facility] [address] [id number] [place] [address] 22 Mar, 2013 [facility] [address] [id number] [place] [address] 22 Mar, 2013 [facility] [address] [id number] [place] [address] 19 Mar, 2013 [facility] [address] [id number] [place] [address] 16 Sep, 2013 [facility] [address] [id number] [place] [address] 16 Sep, 2013 [facility] [address] [facility] [id number] [place] [address] 15 Sep, 2013 [facility] [address] [id number] [place] [address] 11 Sep, 2013 [facility] [address] [id number] [place] [address] 11 Mar, 2013 [facility] [address] [id number] [place] [address] 11 Mar, 2013 [facility] [address] [id number] [place] [address] 11 Mar, 2013 [facility] [address] [facility] [id number] [place] [address] Mar, 2013 [facility] [address] [facility] [id number] [place] [address] Mar, 2013 [facility] [address] [id number] [place] [address] Mar, 2013 [facility] [address] [facility] [id number] [place] [address] Mar, 2013 [facility] [address] [facility] [id number] [place] [address] Mar, [facility] [address] [id number] [place] [address] Feb, [facility] [address] [id number] [place] [address] Feb, [facility] [address] [id number] [place] [address] Feb, [facility] [address] [id number] [place] [address] Feb, [facility] [address] [id number] [place] [address] Feb, [facility] [address] [id number] [place] [address] Feb, [facility] [address] [id number] [place] [address] Feb, [facility] [address] [facility] [id number] [place] [address] Feb, [facility] [address] [id number] [place] [address] Feb, [facility] [address] [id number] [place] [address] Feb, [facility] [address] [id number] [place] [address] Feb, [facility] [address] [id number] [place] [address] Feb, 2013 [facility] [address] [facility] [id number] [facility] [address] Feb, 2013 [facility] [address] [facility] [id number] [place] [address] Feb, 2013 [facility] [address] [facility] [id number] [place] [address] Jan, 2013 [facility] [address] [facility] [id number] [place] [address] Jan, 2013 [facility] [address] [id number] [place] [address] Jan, 2013 [facility] [address] [id number] [place] [address] Jan, 2013 [facility] [address] [id number] [place] [address] Jan, [facility] [address] [id number] [place] [address] Jan, 2013 [facility] [address] [id number] [place] [address] Jan, [facility] [address] [id number] [place] [address] Dec, [facility] [address] [id number] [place] [address] Dec, [facility] [address] [facility] [id number] [place] [address] Dec, [facility] [address] [id number] [place] [address] Dec, [facility] [address] [id number] [place] [address] Dec, [facility] [address] [id number] [place] [address] Dec, 2013 [facility] [address] [id number] [facility] [place] [address] Dec, [facility] [address] [facility] [id number] [facility] [place] [address] Dec, [facility] [address] [facility] [id number] [place] [address] Dec, [facility] [address] [id number] [place] [address] November, [facility] [address] [id number] [place] [address] November, [facility] [address] [facility] [id number] [place] [address] November, [facility] [address] [id number] [place] [address] November, [facility] [address] [id number] [place] [address] November, [facility] [address] [id number] [place] [address] November, [facility] [address] [id number] [place] [address] November, [facility] [address] [id number] [place] [address] November, [facility] [address] [id number] [place] [address] November, [facility] [address] [id number] [place] [address] November, [facility] [address] [facility] [id number] [place] [address] November, [facility] [address] [id number] [place] [address] November, [facility] [address] [id number] [place] [address] November, [facility] [address] [id number] [place] [address] November, [facility] [address] [id number] [place] [address] Oct, [facility] [address] [id number] [place] [address] Oct, [facility] [address] [id number] [place] [address] Oct, [facility] [address] [id number] [place] [address] Oct, [facility] [address] [id number] [place] [address] Oct, [facility] [address] [id number] [place] [address] Oct, [facility] [address] [id number] [place] [address] Sep, [facility] [address] [id number] [place] [address] Sep, [facility] [address] [id number] [place] [address] Sep, [facility] [address] [id number] [place] [address] Sep, [facility] [address] [id number] [place] [address] Aug, [facility] [address] [id number] [place] [address] Aug, [facility] [address] [id number] [place] [address] Aug, [facility] [address] [id number] [place] [address] Aug, [facility] [address] [id number] [place] [address] Jul, [facility] [address] [id number] [place] [address] Jul, [facility] [address] [id number] [place] [address] Jul, [facility] [address] [id number] [place] [address] Jul, [facility] [address] [id number] [place] [address] Jul, [facility] [address] [id number] [place] [address] Jul, [facility] [address] [id number] [place] [address] Jul, [facility] [address] [id number] [place] [address] Jun, [facility] [address] [id number] [place] [address] Jun, [facility] [address] [id number] [place] [address] 17 Jun, 2013 [facility] [address] [id number] [place] [address] 17 Jun, 2013 [facility] [address] [id number] [place] [address] Jun, [facility] [address] [id number] [place] [address] Jun, [facility] [address] [id number] [place] [address] May, [facility] [address] [id number] [place] [address] 07 May, 2013 [facility] [address] [id number] [place] [address] 15 Apr, 2013 [facility] [address] [id number] [place] [address] 15 Apr, 2013 [facility] [address] [id number] [place] [address] 10 Apr, 2013 [facility] [address] [id number] [place] [address] 10 Apr, 2013 [facility] [address] [id number] [place] [address] 08 Apr, 2013 [facility] [id number] [place] [address] 24 Mar, 2013 [facility] [address] [id number] [place] [address] 19 Mar, 2013 [facility] [address] [id number] [place] [address] Mar, [facility] [address] [id number] [place] [address] Mar, [facility] [address] [id number] [place] [address] Feb, [facility] [address] [id number] [place] [address] Feb, [facility] [address] [id number] [place] [address] Jan, [facility] [address] [id number] [place] [address] Jan, [facility] [address] [id number] [place] [address] Jan, [facility] [address] [id number] [place] [address] Jan, [facility] [address] [id number] [place] [address] Dec, [facility] [address] [id number] [place] [address] Dec, [facility] [address] [id number] [place] [address] Dec, [facility] [address] [id number] [place] [address] Dec, [facility] [address] [id number] [place] [address] November, [facility] [address] [id number] [place] [address] November, [facility] [address] [id number] [place] [address] 18 Oct, 2012 [facility] [address] [id number] [place] [address] Sep, [facility] [address] [id number] [place] [address] 08 Sep, 2012 [facility] [id number] [place] [address] 14 Aug, 2012 [facility] [address] [id number] [place] [address] Aug, [facility] [address] [id number] [place] [address] Jul, [facility] [address] [id number] [place] [address] Jul, [facility] [id number] [place] [address] Jul, [facility] [address] [id number] [place] [address] Jun, [facility] [address] [id number] [place] [address] 28 Jun, 2012 [facility] [address] [id number] [place] [address] Jun, [facility] [id number] [place] [address] 15 Jun, 2012 [facility] [address] [id number] [place] [address] May, [facility] [address] [id number] [place] [address] 20 May, 2012 [facility] [address] [id number] [place] [address] 19 May, 2012 [facility] [address] [id number] [place] [address] 14 May, 2012 [facility] [address] [id number] [place] [address] 14 May, 2012 [facility] [address] [id number] [place] [address] May, [facility] [address] [id number] [place] [address] May, [facility] [address] [id number] [place] [address] Apr, [facility] [address] [id number] [place] [address] Apr, [facility] [address] [id number] [place] [address] Apr, [facility] [address] [id number] [place] [address] Apr, [facility] [address] [id number] [place] [address] Apr, [facility] [address] [id number] [place] [address] Apr, [facility] [address] [id number] [place] [address] Apr, [facility] [address] [id number] [place] [address] Apr, [facility] [address] [id number] [place] [address] Jan, [facility] [address] [id number] [place] [address] Jan, [facility] [address] [id number] [place] [address] Dec, [facility] [address] [id number] [place] [address] November, [facility] [address] [id number] [place] [address] Oct, [facility] [address] [id number] [place] [address] Oct, [facility] [address] [id number] [place] [address] 03 Oct, 2011 [facility] [address] [id number] [place] [address] Oct, [facility] [address] [id number] [place] [address] Sep, [facility] [address] [id number] [place] [address] Sep, [facility] [address] [id number] [place] [address] Sep, [facility] [address] [id number] [place] [address] Jun, [facility] [address] [id number] [place] [address] Jun, [facility] [address] [id number] [place] [address] 22 May, 2011 [facility] [address] [id number] [place] [address] 14 Jan, 2011 [facility] [address] [id number] [place] [address] November, [facility] [address] [id number] [place] [address] 14 Oct, 2010 [facility] [address] [id number] [place] [address] 16 Sep, 2010 [facility] [address] [id number] [place] [address] 30 May, 2010 [facility] [address] [id number] [place] [address] Jul, [facility] [address] [id number] [place] [address] Jun, [facility] [address] [id number] [place] [address] Jun, [facility] [address] [id number] [place] [address] Jun, [facility] [address] [id number] [place] [address] Jun, [facility] [address] [id number] [place] [address] May, [facility] [address] [id number] [place] [address] May, [facility] [address] [id number] [place] [address] Apr, [facility] [address] [id number] [place] [address] Apr, [facility] [address] [id number] [place] [address] Apr, IMMUNIZATIONS No Known Immunizations SOCIAL HISTORY Never Assessed REASON FOR VISIT PLAN OF CARE VITAL SIGNS Height 61 in 2014-01-01 Weight 212.2 lbs 2014-01-01 Temperature 97.7 degrees Fahrenheit 2014-01-01 Heart Rate 90 bpm 2014-01-01 Respiratory Rate 18 2014-01-01 Blood pressure systolic 122 mmHg 2014-01-01 Blood pressure diastolic 80 mmHg 2014-01-01 MEDICATIONS Unknown Medications RESULTS No Results PROCEDURES Procedure Date Ordered Result Body Site X-RAY EXAM OF WRIST January 01, 2014 X-RAY EXAM OF SHOULDER January 01, 2014 INSTRUCTIONS MEDICATIONS ADMINISTERED No Known Medications [...] right 06/1996 Surgical History multiple knee injections ([id number]) Surgical History left knee replacement 06/11 Hospitalization History Knee surgery- x 3 days 06/11
--- OUTSIDE RECORDS SUMMARY | 2019-12-16 20:29 | XMS REPORT ---
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 Name Role Phone Migration, Doctor Unavailable Unavailable PROBLEMS Type Condition ICD9-CM Code [id number] Code Onset Dates Condition S tatus SNOMED Code Problem ADD (attention deficit disorder) F90.0 Active 403249285 Problem Drug abuse counseling and surveillance of drug abuser Z71.51 Active 942653133 Problem Insomnia G47.00 Active 676118696 Problem Joint pain M25.50 Active 90682733 Problem Edema, unspecified type R60.9 Active 296032027 Problem Episode of recurrent major d epressive disorder, unspecified depression episode severity F33.9 Active 053160840 Problem Venous insufficiency (chronic) (peripheral) I87.2 Active [id number] Problem Carpal tunnel syndrome on left G56.02 Active [id number] Problem Manic bipolar I disorder in partial remission F31. 73 Active 46128515 Problem Bipolar affective disorder, currently depressed, moderate F31.32 Active 417942680 Problem Social anxiety disorder F40.10 Active 31751136 Problem Other chronic pain G89.29 Active 8 8430581 Problem Stimulant abuse F15.10 Active 4415 35365 Problem Bipolar II disorder F31.81 Active 33782569 Problem ADD (attention deficit disorder) without hyperactivity F98.8 Active 61299065 ALLERGIES No Information ENCOUNTERS Encounter Location Date Diagnosis [facility] [address] [facility] [id number] [address] [place] [address] Apr, [facility] [address] [facility] [id number] [address] [place] [address] Jan, Bipolar affective disorder, currently depressed, moderate F31.32 [place] [address] [facility] [id number] [address] [place] [address] Jan, Bipolar affective disorder, currently depressed, moderate F31.32 ; Social anxiety disorder F40.10 and Morbid obesity E66.01 [place] [address] [address] 29 May, 2018 Screening for lipid disorder s Z13.220 [place] [address] [address] 29 May, 2018 Carpal tunnel syndrome on le ft G56.02 ; Social anxiety disorder F40.10 and Screening for lipid disorders Z13.220 [place] [address] [address] 11 Apr, 2018 Bipolar II disorder F31.81 ; Social anxiety disorder F40.10 ; ADD (attention deficit disorder) without hyperactivity F98.8 and BMI 45.0-49.9, adult Z68.42 [place] [address] [address] 05 Mar, 2018 [place] [address] [address] 17 Feb, 2018 BMI 45.0-49.9, adult Z68.42 ; Carpal tunnel syndrome on left G56.02 and Social anxiety disorder F40.10 [place] [address] [address] 09 Jan, 2018 Bipolar II disorder F31.81 ; ADD (attention deficit disorder) without hyperactivity F98.8 ; Social anxiety disorder F40.10 and Stimulant abuse F15.10 [place] [address] [address] Dec, Episode of recurrent major d epressive disorder, unspecified depression episode severity F33.9 ; Other chronic pain G89.29 ; Radiculopathy, lumbar region M54.16 ; Edema of lower extremity R60.0 and BMI 45.0-49.9, adult Z68.42 [place] [address] [address] Jun, [place] [address] [address] 21 Job, 2016 Joint pain M25.50 [facility] [address] [facility] [id number] [address] [place] [address] 18 Jan, 2016 Wellness examination Z00.00 ; Pain in right knee M25.561 ; Pain in left knee M25.562 ; Edema, unspecified type R60.9 and Drug abuse counseling and surveillance of drug abuser Z71.51 [facility] [address] [facility] [id number] [address] [place] [address] November, [facility] [address] [facility] [id number] [address] [place] [address] Oct, [facility] [address] [facility] [id number] [address] [place] [address] Oct, ADD (attention deficit disor josselin) F90.0 ; Social anxiety disorder F40.10 and Manic bipolar I disorder in partial remission F31.73 [facility] [address] [facility] [id number] [address] [place] [address] Aug, [facility] [address] [facility] [id number] [address] [place] [address] Aug, [facility] [address] [facility] [id number] [address] [place] [address] Aug, [facility] [address] [facility] [id number] [address] [place] [address] Jul, [facility] [address] [facility] [id number] [address] [place] [address] Jul, [facility] [address] [facility] [id number] [address] [place] [address] Jul, [facility] [address] [facility] [id number] [address] [place] [address] Jun, [facility] [address] [facility] [id number] [address] [place] [address] Jun, [facility] [address] [facility] [id number] [address] [place] [address] Jun, [facility] [address] [id number] [address] [place] [address] Jun, [facility] [address] [id number] [address] [place] [address] May, Joint pain M25.50 ; ADD (att ention deficit disorder) F90.0 ; Edema R60.9 and Insomnia G47.00 [facility] [address] [id number] [address] [place] [address] May, [facility] [address] [id number] [address] [place] [address] May, [facility] [address] [id number] [address] [place] [address] May, [facility] [address] [facility] [id number] [address] [place] [address] May, Left wrist pain M25.532 ; Si nusitis J32.9 and Drug abuse counseling and surveillance of drug abuser Z71.51 [facility] [address] [facility] [id number] [address] [place] [address] Apr, [facility] [address] [facility] [id number] [address] [place] [address] Apr, [facility] [address] [facility] [id number] [address] [place] [address] Apr, [facility] [address] [id number] [address] [place] [address] Apr, [facility] [address] [facility] [id number] [address] [place] [address] Apr, [facility] [address] [facility] [id number] [address] [place] [address] Apr, [facility] [address] [facility] [id number] [address] [place] [address] Apr, [facility] [address] [facility] [id number] [address] [place] [address] Mar, Unspecified venous (peripher al) insufficiency 459.81 ; Bipolar I disorder, most recent episode (or current) manic, moderate 296.42 ; Social phobia 300.23 ; Attention deficit disorder of childhood without mention of hyperactivity 314.00 ; Pain in joint, lower leg 719.46 ; Thrombosis 453.9 and Chronic pain 338.29 [facility] [address] [id number] [address] [place] [address] Mar, [facility] [address] [id number] [address] [place] [address] Mar, [facility] [address] [id number] [address] [place] [address] Mar, [facility] [address] [id number] [address] [place] [address] Mar, [facility] [address] [id number] [address] [place] [address] Mar, [facility] [address] [id number] [address] [place] [address] Mar, [facility] [address] [facility] [id number] [address] [place] [id number] Mar, Manic bipolar I disorder in partial remission 296.45 ; Social phobia 300.23 and Attention deficit disorder of childhood without mention of hyperactivity 314.00 [facility] [address] [facility] [id number] [address] [place] [address] Mar, [facility] [address] [id number] [address] [place] [address] Feb, [facility] [address] [id number] [address] [place] [address] Feb, Thrombosis 453.9 ; Unspecifi ed venous (peripheral) insufficiency 459.81 ; Bipolar I disorder, most recent episode (or current) manic, moderate 296.42 ; Social phobia 300.23 ; Attention deficit disorder of childhood without mention of hyperactivity 314.00 ; Pain in joint, lower leg 719.46 and Edema 782.3 [facility] [address] [id number] [address] [place] [address] Feb, [facility] [address] [id number] [address] [place] [address] Feb, Social phobia 300.23 ; Atten tion deficit disorder of childhood without mention of hyperactivity 314.00 and Bipolar I disorder, most recent episode manic, in partial remission 296.45 [facility] [address] [id number] [address] [place] [address] Jan, [facility] [address] [id number] [address] [place] [address] Jan, [facility] [address] [facility] [id number] [address] [place] [address] Jan, Unspecified venous (peripher al) insufficiency 459.81 and Thrombophlebitis 451.9 [facility] [address] [facility] [id number] [address] [place] [address] Jan, [facility] [address] [id number] [address] [place] [address] Dec, Headache 784.0 and Back pain 724.5 [facility] [address] [id number] [address] [place] [address] Dec, [facility] [address] [facility] [id number] [address] [place] [address] Dec, Bipolar I disorder, most rec ent episode (or current) manic, moderate 296.42 ; Attention deficit disorder of childhood without mention of hyperactivity 314.00 and Social phobia 300.23 [facility] [address] [facility] [id number] [address] [place] [address] November, [facility] [address] [facility] [id number] [address] [place] [id number] November, [facility] [address] [facility] [id number] [address] [place] [address] Oct, [facility] [address] [id number] [address] [place] [address], [place] [address] 13 Oct, 2014 [facility] [address] [id number] [address] [place] [address], [place] [address] 17 Sep, 2014 [facility] [address] [id number] [address] [place] [address], [place] [address] Sep, [facility] [address] [id number] [address] [place] [address], [place] [address] Aug, [facility] [address] [id number] [address] [place] [address], [place] [address] Aug, [facility] [address] [id number] [address] [place] [address], [place] [address] Aug, [facility] [address] [id number] [address] [place] [address], [place] [address] Aug, [facility] [address] [id number] [address] [place] [address], [place] [address] Aug, [facility] [address] [id number] [address] [place] [address], [place] [address] Aug, [facility] [address] [id number] [address] [place] [address], [place] [address] Aug, [facility] [address] [id number] [address] [place] [address], [place] [address] Jul, [facility] [address] [id number] [address] [place] [address], [place] [address] Jul, [facility] [address] [id number] [address] [place] [address], [place] [address] Jun, [facility] [address] [id number] [address] [place] [address], [place] [address] Jun, [facility] [address] [id number] [address] [place] [address], [place] [address] May, [facility] [address] [id number] [address] [place] [address], [place] [address] May, [facility] [address] [id number] [address] [place] [address], [place] [address] May, [facility] [address] [id number] [address] [place] [address], [place] [address] May, [facility] [address] [id number] [address] [place] [address], [place] [address] May, [facility] [address] [id number] [address] [place] [address], [place] [address] May, [facility] [address] [id number] [address] [place] [address], [place] [address] Apr, [facility] [address] [id number] [address] [place] [address], [place] [address] Apr, [facility] [address] [id number] [address] [place] [address], [place] [address] Apr, [facility] [address] [id number] [address] [place] [address], [place] [address] Apr, [facility] [address] [id number] [address] [place] [address], [place] [address] 22 Mar, 2014 [facility] [address] [id number] [address] [place] [address], [place] [address] 22 Mar, 2014 [facility] [address] [id number] [address] [place] [address], [place] [address] 19 Mar, 2014 [facility] [address] [id number] [address] [place] [address], [place] [address] 16 Mar, 2013 [facility] [address] [id number] [address] [place] [address], [place] [address] 16 Mar, 2014 [facility] [address] [id number] [address] [place] [address], [place] [address] 15 Mar, 2014 [facility] [address] [id number] [address] [place] [address], [place] [address] Mar, 2013 [facility] [address] [id number] [facility] [address] Mar, 2013 [facility] [address] [id number] [address] [place] [address], [place] [address] Mar, 2013 [facility] [address] [id number] [address] [place] [address], [place] [address] Mar, 2013 [facility] [address] [id number] [address] [place] [address], [place] [address] Mar, 2013 [facility] [address] [id number] [address] [place] [address], [place] [address] Mar, 2013 [facility] [address] [id number] [address] [place] [address], [place] [address] Mar, 2013 [facility] [address] [id number] [address] [place] [address], [place] [address] Mar, 2013 [facility] [address] [id number] [address] [place] [address], [place] [address] Mar, 2013 [facility] [address] [id number] [address] [place] [address], [place] [address] Feb, [facility] [address] [id number] [address] [place] [address], [place] [address] Feb, [facility] [address] [id number] [address] [place] [address], [place] [address] Feb, [facility] [address] [id number] [address] [place] [address], [place] [address] Feb, [facility] [address] [id number] [address] [place] [address], [place] [address] Feb, [facility] [address] [id number] [address] [place] [address], [place] [address] Feb, [facility] [address] [id number] [address] [place] [address], [place] [address] Feb, [facility] [address] [id number] [address] [place] [address], [place] [address] Feb, 2013 [facility] [address] [id number] [address] [place] [address], [place] [address] Feb, [facility] [address] [id number] [address] [place] [address], [place] [address] Feb, [facility] [address] [id number] [address] [place] [address], [place] [address] Feb, [facility] [address] [id number] [address] [place] [address], [place] [address] Feb, [facility] [address] [id number] [address] [place] [address], [place] [address] Feb, [facility] [address] [id number] [address] [place] [address], [place] [address] Feb, [facility] [address] [id number] [address] [place] [address], [place] [address] Jan, [facility] [address] [id number] [address] [place] [address], [place] [address] Jan, [facility] [address] [id number] [address] [place] [address], [place] [address] Jan, [facility] [address] [id number] [address] [place] [address], [place] [address] Jan, [facility] [address] [id number] [address] [place] [address], [place] [address] Jan, [facility] [address] [id number] [address] [place] [address], [place] [address] Jan, [facility] [address] [id number] [address] [place] [address], [place] [address] Jan, [facility] [address] [id number] [address] [place] [address], [place] [address] Dec, [facility] [address] [id number] [address] [place] [address], [place] [address] Dec, [facility] [address] [id number] [facility] [address] Dec, [facility] [address] [id number] [facility] [address] Dec, [facility] [address] [id number] [facility] [address] Dec, [facility] [address] [id number] [facility] [address] Dec, [facility] [address] [id number] [facility] [address] Dec, [facility] [address] [id number] [facility] [address] Dec, [facility] [address] [id number] [address] [place] [address], [place] [address] Dec, [facility] [address] [id number] [address] [place] [address], [place] [address] November, [facility] [address] [id number] [address] [place] [address], [place] [address] November, [facility] [address] [id number] [address] [place] [address], [place] [address] November, [facility] [address] [id number] [address] [place] [address], [place] [address] November, [facility] [address] [id number] [address] [place] [address], [place] [address] November, [facility] [address] [id number] [address] [place] [address], [place] [address] November, [facility] [address] [id number] [address] [place] [address], [place] [address] November, [facility] [address] [id number] [address] [place] [address], [place] [address] November, [facility] [address] [id number] [address] [place] [address], [place] [address] November, [facility] [address] [id number] [facility] [address] November, [facility] [address] [id number] [address] [place] [address], [place] [address] November, [facility] [address] [id number] [address] [place] [address], [place] [address] November, [facility] [address] [id number] [address] [place] [address], [place] [address] November, [facility] [address] [id number] [address] [place] [address], [place] [address] November, [facility] [address] [id number] [address] [place] [address], [place] [address] Oct, [facility] [address] [id number] [address] [place] [address], [place] [address] Oct, [facility] [address] [id number] [address] [place] [address], [place] [address] Oct, [facility] [address] [id number] [address] [place] [address], [place] [address] Oct, [facility] [address] [id number] [address] [place] [address], [place] [address] Oct, [facility] [address] [id number] [address] [place] [address], [place] [address] Oct, [facility] [address] [id number] [address] [place] [address], [place] [address] Sep, [facility] [address] [id number] [address] [place] [address], [place] [address] Sep, [facility] [address] [id number] [address] [place] [address], [place] [address] Sep, [facility] [address] [id number] [address] [place] [address], [place] [address] Sep, [facility] [address] [id number] [address] [place] [address], [place] [address] Aug, [facility] [address] [id number] [address] [place] [address], [place] [address] Aug, [facility] [address] [id number] [address] [place] [address], [place] [address] Aug, [facility] [address] [id number] [address] [place] [address], [place] [address] Aug, [facility] [address] [id number] [address] [place] [address], [place] [address] Jul, [facility] [address] [id number] [address] [place] [address], [place] [address] Jul, [facility] [address] [id number] [address] [place] [address], [place] [address] Jul, [facility] [address] [id number] [address] [place] [address], [place] [address] Jul, [facility] [address] [id number] [address] [place] [address], [place] [address] Jul, [facility] [address] [id number] [address] [place] [address], [place] [address] Jul, [facility] [address] [id number] [address] [place] [address], [place] [address] Jul, [facility] [address] [id number] [address] [place] [address], [place] [id number] Jun, [facility] [address] [id number] [address] [place] [address], [place] [address] Jun, [facility] [address] [id number] [address] [place] [address], [place] [address] 17 Jun, 2013 [facility] [address] [id number] [address] [place] [address], [place] [address] 17 Jun, 2013 [facility] [address] [id number] [address] [place] [address], [place] [address] Jun, [facility] [address] [id number] [address] [place] [address], [place] [address] 13 Jun, 2013 [facility] [address] [id number] [address] [place] [address], [place] [address] 07 May, 2013 [facility] [address] [id number] [address] [place] [address], [place] [address] 07 May, 2013 [facility] [address] [id number] [address] [place] [address], [place] [address] 15 Apr, 2013 [facility] [address] [id number] [address] [place] [address], [place] [address] 15 Apr, 2013 [facility] [address] [id number] [address] [place] [address], [place] [address] 10 Apr, 2013 [facility] [address] [id number] [address] [place] [address], [place] [address] 10 Apr, 2013 [facility] [address] [id number] [address] [place] [address], [place] [address] 08 Apr, 2013 [facility] [address] [id number] [address] [place] [address], [place] [address] 24 Mar, 2013 [facility] [address] [id number] [address] [place] [address] 19 Mar, 2013 [facility] [address] [id number] [address] [place] [address] 12 Mar, 2013 [facility] [address] [id number] [address] [place] [id number] 10 Mar, 2013 [facility] [address] [id number] [address] [place] [address], [place] [address] 16 Feb, 2013 [facility] [address] [id number] [address] [place] [id number] 06 Feb, 2013 [facility] [address] [id number] [address] [place] [id number] 18 Jan, 2013 [facility] [address] [id number] [address] [place] [id number] Jan, [facility] [address] [id number] [address] [place] [address], [place] [address] Jan, [facility] [address] [id number] [address] [place] [address], [place] [address] Jan, [facility] [address] [id number] [address] [place] [address], [place] [address] Dec, [facility] [address] [id number] [address] [place] [address], [place] [address] Dec, [facility] [address] [id number] [address] [place] [address], [place] [address] Dec, [facility] [address] [id number] [address] [place] [address], [place] [address] Dec, [facility] [address] [id number] [address] [place] [address], [place] [address] November, [facility] [address] [id number] [address] [place] [address], [place] [address] November, [facility] [address] [id number] [address] [place] [address], [place] [address] Oct, [facility] [address] [id number] [address] [place] [address], [place] [address] Sep, [facility] [address] [id number] [address] [place] [address], [place] [address] Sep, [facility] [address] [id number] [address] [place] [address], [place] [address] Aug, [facility] [address] [id number] [address] [place] [address], [place] [address] Aug, [facility] [address] [id number] [address] [place] [address], [place] [address] Jul, [facility] [address] [id number] [address] [place] [address], [place] [address] Jul, [facility] [address] [id number] [address] [place] [address], [place] [address] Jul, [facility] [address] [id number] [address] [place] [address], [place] [address] Jun, [facility] [address] [id number] [address] [place] [address], [place] [address] Jun, [facility] [address] [id number] [address] [place] [address], [place] [address] Jun, [facility] [address] [id number] [address] [place] [address], [place] [address] Jun, [facility] [address] [id number] [address] [place] [address], [place] [address] May, [facility] [address] [id number] [address] [place] [address], [place] [address] May, [facility] [address] [id number] [address] [place] [address], [place] [address] May, [facility] [address] [id number] [address] [place] [address], [place] [address] May, [facility] [address] [id number] [address] [place] [address], [place] [address] May, [facility] [address] [id number] [address] [place] [address], [place] [address] May, [facility] [address] [id number] [address] [place] [address], [place] [address] May, [facility] [address] [id number] [address] [place] [address], [place] [address] 15 Apr, 2012 [facility] [address] [id number] [address] [place] [address], [place] [address] 15 Apr, 2012 [facility] [address] [id number] [address] [place] [address], [place] [address] 15 Apr, 2012 [facility] [address] [id number] [address] [place] [address], [place] [address] Apr, [facility] [address] [id number] [address] [place] [address], [place] [address] Apr, [facility] [address] [id number] [address] [place] [address], [place] [address] Apr, [facility] [address] [id number] [address] [place] [address], [place] [address] Apr, [facility] [address] [id number] [address] [place] [address], [place] [address] Apr, [facility] [address] [id number] [address] [place] [address], [place] [address] Jan, [facility] [address] [id number] [address] [place] [address], [place] [address] Jan, [facility] [address] [id number] [address] [place] [address], [place] [address] Dec, [facility] [address] [id number] [address] [place] [address], [place] [address] November, [facility] [address] [id number] [address] [place] [address], [place] [address] Oct, [facility] [address] [id number] [address] [place] [address], [place] [address] Oct, [facility] [address] [id number] [address] [place] [address], [place] [address] Oct, [facility] [address] [id number] [address] [place] [address], [place] [address] Oct, [facility] [address] [id number] [address] [place] [address], [place] [address] Sep, [facility] [address] [id number] [address] [place] [address], [place] [address] Sep, [facility] [address] [id number] [address] [place] [address], [place] [address] Sep, [facility] [address] [id number] [address] [place] [address], [place] [address] 13 Jun, 2011 [facility] [address] [id number] [address] [place] [address], [place] [address] 13 Jun, 2011 [facility] [address] [id number] [address] [place] [address], [place] [address] 22 May, 2011 [facility] [address] [id number] [address] [place] [address], [place] [address] 14 Jan, 2011 [facility] [address] [id number] [address] [place] [address], [place] [address] 19 Nov, 2010 [facility] [address] [id number] [address] [place] [address], [place] [address] 14 Oct, 2010 [facility] [address] [id number] [address] [place] [address], [place] [address] 16 Sep, 2010 [facility] [address] [id number] [address] [place] [address], [place] [address] 30 May, 2010 [facility] [address] [id number] [address] [place] [address], [place] [address] 19 Jul, 2009 [facility] [address] [id number] [address] [place] [address], [place] [address] 23 Jun, 2009 [facility] [address] [id number] [address] [place] [address], [place] [address] 23 Jun, 2009 [facility] [address] [id number] [address] [place] [address], [place] [address] 15 Jun, 2009 [facility] [address] [id number] [address] [place] [address], [place] [address] 15 Jun, 2009 [facility] [address] [id number] [address] [place] [address], [place] [address] 17 May, 2009 [facility] [address] [id number] [address] [place] [address], [place] [address] 09 May, 2009 [facility] [address] [id number] [address] [place] [address], [place] [address] Apr, [facility] [address] [facility] [id number] [address] [place] [address] Apr, [facility] [address] [facility] [id number] [address] [place] [address] Apr, IMMUNIZATIONS No Known Immunizations SOCIAL HISTORY [...] right 06/1996 Surgical History multiple knee injections ([id number]) Surgical History left knee replacement 06/11 Hospitalization History Knee surgery- x 3 days 06/11
--- OUTSIDE RECORDS SUMMARY | 2019-12-16 20:29 | XMS REPORT ---
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 Role Phone RENETTA ALANIS Unavailable PROBLEMS Type Condition ICD9-CM Code OAO32-XG Code Onset Dates Condition S tatus SNOMED Code Problem ADD (attention deficit disorder) F90.0 Active 525501180 Problem Drug abuse counseling and surveillance of drug abuser Z71.51 Active 705227982 Problem Insomnia G47.00 Active 426394072 Problem Joint pain M25.50 Active 42975628 Problem Edema, unspecified type R60.9 Active 605420758 Problem Episode of recurrent major d epressive disorder, unspecified depression episode severity F33.9 Active 611627959 Problem Venous insufficiency (chronic) (peripheral) I87.2 Active 03120774429230795 Problem Carpal tunnel syndrome on left G56.02 Active 457145713040811 Problem Manic bipolar I disorder in partial remission F31. 73 Active 37553237 Problem Bipolar affective disorder, currently depressed, moderate F31.32 Active 193906359 Problem Social anxiety disorder F40.10 Active 26351182 Problem Other chronic pain G89.29 Active 8 0277818 Problem Stimulant abuse F15.10 Active 4415 41665 Problem Bipolar II disorder F31.81 Active 24702556 Problem ADD (attention deficit disorder) without hyperactivity F98.8 Active 22435680 ALLERGIES No Information ENCOUNTERS Encounter Location Date Diagnosis [facility] [address] [id number] [place] [address] Jul, [facility] [address] [id number] [place] [address] Apr, [facility] [address] [id number] [place] [address] Apr, Bipolar II disorder F31.81 and Social an xiety disorder F40.10 [place] [address] [address] Jan, Bipolar affective disorder, currently de pressed, moderate F31.32 [place] [address] [address] Jan, Bipolar affective disorder, currently de pressed, moderate F31.32 ; Social anxiety disorder F40.10 and Morbid obesity E66.01 [place] [address] [address] May, Screening for lipid disorders Z13.220 [place] [address] [address] May, Carpal tunnel syndrome on left G56.02 ; Social anxiety disorder F40.10 and Screening for lipid disorders Z13.220 [place] [address] [address] 11 Apr, 2018 Bipolar II disorder F31.81 ; Social anxi ety disorder F40.10 ; ADD (attention deficit disorder) without hyperactivity F98.8 and BMI 45.0-49.9, adult Z68.[address] [address] 05 Mar, 2018 [place] [address] [address] 17 Feb, 2018 BMI 45.0-49.9, adult Z68.42 ; Carpal sylvia martha syndrome on left G56.02 and Social anxiety disorder F40.10 [place] [address] [address] Jan, Bipolar II disorder F31.81 ; ADD (attent ion deficit disorder) without hyperactivity F98.8 ; Social anxiety disorder F40.10 and Stimulant abuse F15.[address] [address] Dec, Episode of recurrent major depressive di sorder, unspecified depression episode severity F33.9 ; Other chronic pain G89.29 ; Radiculopathy, lumbar region M54.16 ; Edema of lower extremity R60.0 and BMI 45.0-49.9, adult Z68.42 [facility] [address] [address] Jun, [facility] [address] [address] Jan, Joint pain M25.50 [facility] [address] [address] Jan, Wellness examination Z00.00 ; Pain in ri ght knee M25.561 ; Pain in left knee M25.562 ; Edema, unspecified type R60.9 and Drug abuse counseling and surveillance of drug abuser Z71.51 [place] [address] [address] November, [place] [address] [address] Oct, [place] [address] [address] Oct, ADD (attention deficit disorder) F90.0 ; Social anxiety disorder F40.10 and Manic bipolar I disorder in partial remission F31.73 [place] [address] [address] Aug, [facility] [address] [address] Aug, [facility] [address] [address] Aug, [facility] [address] [address] Jul, [facility] [address] [address] Jul, [facility] [address] [address] Jul, [facility] [address] [address] Jun, [facility] [address] [address] Jun, [facility] [address] [address] Jun, [facility] [address] [address] Jun, [facility] [address] [address] May, Joint pain M25.50 ; ADD (attention defic it disorder) F90.0 ; Edema R60.9 and Insomnia G47.00 [facility] [address] [address] May, [facility] [address] [address] May, [facility] [address] [address] May, [facility] [address] [address] May, Left wrist pain M25.532 ; Sinusitis J32. 9 and Drug abuse counseling and surveillance of drug abuser Z71.51 [facility] [address] [address] Apr, [facility] [address] [address] Apr, [facility] [address] [address] Apr, [facility] [address] [address] Apr, [facility] [address] [address] Apr, [facility] [address] [address] Apr, [facility] [address] [address] Apr, [facility] [address] [address] Mar, Unspecified venous (peripheral) insuffic iency 459.81 ; Bipolar I disorder, most recent episode (or current) manic, moderate 296.42 ; Social phobia 300.23 ; Attention deficit disorder of childhood without mention of hyperactivity 314.00 ; Pain in joint, lower leg 719.46 ; Thrombosis 453.9 and Chronic pain 338.29 [facility] [address] [address] Mar, [facility] [address] [address] Mar, [facility] [address] [address] Mar, [facility] [address] [address] Mar, [facility] [address] [address] Mar, [facility] [address] [address] Mar, [facility] [address] [address] 10 Mar, 2015 Manic bipolar I disorder in partial josephine ssion 296.45 ; Social phobia 300.23 and Attention deficit disorder of childhood without mention of hyperactivity 314.00 [facility] [address] [address] Mar, [facility] [address] [address] Feb, [facility] [address] [address] Feb, Thrombosis 453.9 ; Unspecified venous (p eripheral) insufficiency 459.81 ; Bipolar I disorder, most recent episode (or current) manic, moderate 296.42 ; Social phobia 300.23 ; Attention deficit disorder of childhood without mention of hyperactivity 314.00 ; Pain in joint, lower leg 719.46 and Edema 782.3 [facility] [address] [address] Feb, [facility] [address] [address] Feb, Social phobia 300.23 ; Attention deficit disorder of childhood without mention of hyperactivity 314.00 and Bipolar I disorder, most recent episode manic, in partial remission 296.45 [facility] [address] [address] Jan, [facility] [address] [address] Jan, [facility] [address] [address] Jan, Unspecified venous (peripheral) insuffic iency 459.81 and Thrombophlebitis 451.9 [facility] [address] [address] Jan, [facility] [address] [address] Dec, Headache 784.0 and Back pain 724.5 [facility] [address] [address] Dec, [facility] [address] [address] Dec, Bipolar I disorder, most recent episode (or current) manic, moderate 296.42 ; Attention deficit disorder of childhood without mention of hyperactivity 314.00 and Social phobia 300.23 [facility] [address] [address] November, [facility] [address] [address] November, [facility] [address] [address] Oct, [facility] [place] [facility] [address] [facility] [id number] [place] [address] 13 Oct, 2014 [facility] [place] [facility] [address] [id number] [place] [address] Sep, [facility] [place] [facility] [address] [id number] [place] [address] Sep, [facility] [place] [facility] [address] [id number] [place] [address] Aug, [facility] [place] [facility] [address] [facility] [id number] [place] [address] Aug, [facility] [place] [facility] [address] [id number] [place] [address] Aug, [facility] [place] [facility] [address] [id number] [place] [address] Aug, [facility] [place] [facility] [address] [id number] [place] [address] Aug, [facility] [place] [facility] [address] [id number] [place] [address] Aug, [facility] [place] [facility] [address] [id number] [place] [address] Aug, [facility] [place] [facility] [address] [id number] [place] [address] Jul, [facility] [place] [facility] [address] [id number] [place] [address] Jul, [facility] [place] [facility] [address] [id number] [place] [address] Jun, [facility] [place] [facility] [address] [id number] [place] [address] Jun, [facility] [place] [facility] [address] [id number] [place] [address] May, [facility] [place] [facility] [address] [id number] [place] [address] May, [facility] [place] [facility] [address] [id number] [place] [address] May, [facility] [place] [facility] [address] [facility] [id number] [place] [address] May, [facility] [place] [facility] [address] [id number] [place] [address] May, [facility] [place] [facility] [address] [id number] [place] [address] May, [facility] [place] [facility] [address] [id number] [place] [address] Apr, [facility] [place] [facility] [address] [id number] [place] [address] Apr, [facility] [place] [facility] [address] [id number] [place] [address] Apr, [facility] [place] [facility] [address] [id number] [place] [address] Apr, [facility] [place] [facility] [address] [id number] [place] [address] 22 Mar, 2014 [facility] [place] [facility] [address] [id number] [place] [address] 22 Mar, 2014 [facility] [place] [facility] [address] [id number] [place] [address] 19 Mar, 2014 [facility] [place] [facility] [address] [id number] [place] [address] 16 Mar, 2013 [facility] [place] [facility] [address] [id number] [place] [address] 16 Mar, 2013 [facility] [place] [facility] [address] [id number] [place] [address] 15 Sep, 2013 [facility] [place] [facility] [address] [id number] [place] [address] 11 Mar, 2013 [facility] [place] [facility] [address] [id number] [place] [address] 11 Mar, 2013 [facility] [place] [facility] [address] [id number] [place] [address] 11 Mar, 2013 [facility] [place] [facility] [address] [place] [id number] [place] [address] 11 Mar, 2013 [facility] [place] [facility] [address] [facility] [id number] [place] [address] 10 Mar, 2013 [facility] [place] [facility] [address] [id number] [place] [address] Mar, 2013 [facility] [place] [facility] [address] [id number] [place] [address] Mar, 2013 [facility] [place] [facility] [address] [facility] [id number] [place] [address] Mar, 2013 [facility] [place] [facility] [address] [id number] [place] [address] Mar, [facility] [place] [facility] [address] [id number] [place] [address] Feb, [facility] [place] [facility] [address] [id number] [place] [address] Feb, [facility] [place] [facility] [address] [id number] [place] [address] Feb, [facility] [place] [facility] [address] [id number] [place] [address] Feb, [facility] [place] [facility] [address] [id number] [place] [address] Feb, [facility] [place] [facility] [address] [id number] [place] [address] Feb, [facility] [place] [facility] [address] [id number] [place] [address] Feb, [facility] [place] [facility] [address] [id number] [place] [address] Feb, [facility] [place] [facility] [address] [id number] [place] [address] Feb, [facility] [place] [facility] [address] [id number] [place] [address] Feb, [facility] [place] [facility] [address] [id number] [place] [address] Feb, 2013 [facility] [place] [facility] [address] [facility] [id number] [facility] [place] [address] Feb, 2013 [facility] [place] [facility] [address] [facility] [id number] [facility] [place] [address] Feb, [facility] [place] [facility] [address] [facility] [id number] [place] [address] Feb, [facility] [place] [facility] [address] [facility] [id number] [facility] [place] [address] Jan, [facility] [place] [facility] [address] [facility] [id number] [facility] [place] [address] Jan, 2013 [facility] [place] [facility] [address] [facility] [id number] [place] [address] Jan, [facility] [place] [facility] [address] [id number] [place] [address] Jan, [facility] [place] [facility] [address] [id number] [place] [address] Jan, [facility] [place] [facility] [address] [facility] [id number] [place] [address] Jan, [facility] [place] [facility] [address] [id number] [place] [address] Jan, [facility] [place] [facility] [address] [id number] [place] [address] Dec, [facility] [place] [facility] [address] [id number] [place] [address] Dec, [facility] [place] [facility] [address] [facility] [id number] [place] [address] Dec, [facility] [place] [facility] [address] [facility] [id number] [place] [address] Dec, [facility] [place] [facility] [address] [facility] [id number] [place] [address] Dec, [facility] [place] [facility] [address] [id number] [place] [address] Dec, [facility] [place] [facility] [address] [facility] [id number] [place] [address] Dec, [facility] [place] [facility] [address] [id number] [place] [address] Dec, [facility] [place] [facility] [address] [id number] [place] [address] Dec, [facility] [place] [facility] [address] [id number] [place] [address] November, [facility] [place] [facility] [address] [id number] [place] [address] November, [facility] [place] [facility] [address] [id number] [place] [address] November, [facility] [place] [facility] [address] [id number] [place] [address] November, [facility] [place] [facility] [address] [id number] [place] [address] November, [facility] [place] [facility] [address] [id number] [place] [address] November, [facility] [place] [facility] [address] [id number] [place] [address] November, [facility] [place] [facility] [address] [id number] [place] [address] November, [facility] [place] [facility] [address] [id number] [place] [address] November, [facility] [place] [facility] [address] [id number] [place] [address] November, [facility] [place] [facility] [address] [id number] [place] [address] November, [facility] [place] [facility] [address] [id number] [place] [address] November, [facility] [place] [facility] [address] [id number] [place] [address] November, [facility] [place] [facility] [address] [id number] [place] [address] November, [facility] [place] [facility] [address] [id number] [place] [address] Oct, [facility] [place] [facility] [address] [id number] [place] [address] Oct, [facility] [place] [facility] [address] [id number] [place] [address] Oct, [facility] [place] [facility] [address] [id number] [place] [address] Oct, [facility] [place] [facility] [address] [id number] [place] [address] Oct, [facility] [place] [facility] [address] [id number] [place] [address] Oct, [facility] [place] [facility] [address] [id number] [place] [address] Sep, [facility] [place] [facility] [address] [id number] [place] [address] Sep, [facility] [place] [facility] [address] [id number] [place] [address] Sep, [facility] [place] [facility] [address] [id number] [place] [address] Sep, [facility] [place] [facility] [address] [id number] [place] [address] Aug, [facility] [place] [facility] [address] [id number] [place] [address] Aug, [facility] [place] [facility] [address] [id number] [place] [address] Aug, [facility] [place] [facility] [address] [id number] [place] [address] Aug, [facility] [place] [facility] [address] [id number] [place] [address] Jul, [facility] [place] [facility] [address] [id number] [place] [address] Jul, [facility] [place] [facility] [address] [id number] [place] [address] Jul, [facility] [place] [facility] [address] [id number] [place] [address] Jul, [facility] [place] [facility] [address] [id number] [place] [address] Jul, [facility] [place] [facility] [address] [id number] [place] [address] Jul, [facility] [place] [facility] [address] [id number] [place] [address] Jul, [facility] [place] [facility] [address] [id number] [place] [address] Jun, [facility] [place] [facility] [address] [id number] [place] [address] Jun, [facility] [address] [id number] [place] [address] Jun, [facility] [address] [id number] [place] [address] 17 Jun, 2013 [facility] [address] [id number] [place] [address] Jun, [facility] [address] [id number] [place] [address] Jun, [facility] [address] [id number] [place] [address] 07 May, 2013 [facility] [address] [id number] [place] [address] 07 May, 2013 [facility] [address] [id number] [place] [address] 15 Apr, 2013 [facility] [address] [id number] [place] [address] 15 Apr, 2013 [facility] [address] [id number] [place] [address] 10 Apr, 2013 [facility] [address] [id number] [place] [address] 10 Apr, 2013 [facility] [address] [id number] [place] [address] 08 Apr, 2013 [facility] [address] [id number] [place] [address] 24 Mar, 2013 [facility] [address] [facility] [id number] [place] [address] 19 Mar, 2013 [facility] [address] [id number] [place] [address] 12 Mar, 2013 [facility] [address] [id number] [place] [address] 10 Mar, 2013 [facility] [address] [id number] [place] [address] Feb, [facility] [address] [id number] [place] [address] Feb, [facility] [address] [id number] [place] [address] Jan, [facility] [address] [id number] [place] [address] Jan, [facility] [address] [id number] [place] [address] Jan, [facility] [address] [id number] [place] [address] Jan, [facility] [address] [id number] [place] [address] Dec, [facility] [address] [id number] [place] [address] Dec, [facility] [address] [facility] [id number] [place] [address] Dec, [facility] [address] [id number] [place] [address] Dec, [facility] [address] [id number] [place] [address] November, [facility] [address] [id number] [place] [address] November, [facility] [address] [id number] [place] [address] 18 Oct, 2012 [facility] [address] [id number] [place] [address] 20 Sep, 2012 [facility] [address] [id number] [place] [address] 08 Sep, 2012 [facility] [address] [id number] [place] [address] 14 Aug, 2012 [facility] [address] [id number] [place] [address] 13 Aug, 2012 [facility] [address] [id number] [place] [address] Jul, [facility] [address] [id number] [place] [address] Jul, [facility] [id number] [place] [address] Jul, [facility] [address] [id number] [place] [address] Jun, [facility] [address] [id number] [place] [address] 28 Jun, 2012 [facility] [address] [id number] [place] [address] Jun, [facility] [id number] [place] [address] Jun, [facility] [address] [id number] [place] [address] May, [facility] [address] [id number] [place] [address] May, [facility] [address] [id number] [place] [address] 19 May, 2012 [facility] [address] [id number] [place] [address] 14 May, 2012 [facility] [address] [facility] [id number] [place] [address] 14 May, 2012 [facility] [address] [id number] [place] [address] May, [facility] [address] [id number] [place] [address] May, [facility] [address] [id number] [place] [address] 15 Apr, 2012 [facility] [address] [id number] [place] [address] Apr, [facility] [address] [id number] [place] [address] Apr, [facility] [address] [id number] [place] [address] Apr, [facility] [address] [id number] [place] [address] Apr, [facility] [address] [id number] [place] [address] Apr, [facility] [address] [id number] [place] [address] Apr, [facility] [address] [id number] [place] [address] Apr, [facility] [address] [id number] [place] [address] Jan, [facility] [address] [id number] [place] [address] Jan, [facility] [address] [id number] [place] [address] Dec, [facility] [address] [id number] [place] [address] November, [facility] [address] [id number] [place] [address] Oct, [facility] [address] [id number] [place] [address] Oct, [facility] [address] [id number] [place] [address] 03 Oct, 2011 [facility] [address] [id number] [place] [address] 02 Oct, 2011 [facility] [address] [id number] [place] [address] Sep, [facility] [address] [id number] [place] [address] Sep, [facility] [address] [id number] [place] [address] 26 Sep, 2011 [facility] [address] [id number] [place] [address] 13 Jun, 2011 [facility] [address] [id number] [place] [address] 13 Jun, 2011 [facility] [address] [id number] [place] [address] 22 May, 2011 [facility] [address] [id number] [place] [address] 14 Jan, 2011 [facility] [address] [id number] [place] [address] November, [facility] [address] [id number] [place] [address] 14 Oct, 2010 [facility] [address] [id number] [place] [address] 16 Sep, 2010 [facility] [address] [id number] [place] [address] 30 May, 2010 [facility] [address] [id number] [place] [address] 19 Jul, 2009 [facility] [address] [id number] [place] [address] 23 Jun, 2009 [facility] [address] [id number] [place] [address] 23 Jun, 2009 [facility] [address] [id number] [place] [address] Jun, [facility] [address] [id number] [place] [address] Jun, [facility] [address] [id number] [place] [address] May, [facility] [address] [id number] [place] [address] May, [facility] [address] [id number] [place] [address] Apr, [facility] [address] [id number] [place] [address] Apr, [facility] [address] [id number] [place] [address] Apr, IMMUNIZATIONS No Known Immunizations SOCIAL HISTORY [...] right 06/1996 Surgical History multiple knee injections ([id number]) Surgical History left knee replacement 06/11 Hospitalization History Knee surgery- x 3 days 06/11
--- OUTSIDE RECORDS SUMMARY | 2019-12-16 20:30 | XMS REPORT ---
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 Name Role Phone DARLING HERNANDEZ Unavailable PROBLEMS Type Condition ICD9-CM Code BQM92-BU Code Onset Dates Condition S tatus SNOMED Code Problem ADD (attention deficit disorder) F90.0 Active 629046081 Problem Drug abuse counseling and surveillance of drug abuser Z71.51 Active 632028047 Problem Insomnia G47.00 Active 346307369 Problem Joint pain M25.50 Active 65832973 Problem Edema, unspecified type R60.9 Active 224715958 Problem Episode of recurrent major d epressive disorder, unspecified depression episode severity F33.9 Active 212425385 Problem Venous insufficiency (chronic) (peripheral) I87.2 Active [id number] Problem Carpal tunnel syndrome on left G56.02 Active 429276891542846 Problem Manic bipolar I disorder in partial remission F31. 73 Active 22138087 Problem Bipolar affective disorder, currently depressed, moderate F31.32 Active 034296300 Problem Social anxiety disorder F40.10 Active 20294677 Problem Other chronic pain G89.29 Active 8 1563728 Problem Stimulant abuse F15.10 Active 9625 93226 Problem Bipolar II disorder F31.81 Active 99260839 Problem ADD (attention deficit disorder) without hyperactivity F98.8 Active [id number] ALLERGIES No Information ENCOUNTERS Encounter Location Date Diagnosis [facility] [address] [facility] [id number] [address] [place] [address] Apr, [facility] [address] [facility] [id number] [address] [place] [address] Jan, Bipolar affective disorder, currently depressed, moderate F31.32 [facility] [address] [facility] [id number] [address] [place] [address] 16 Job, 2019 Bipolar affective disorder, currently depressed, moderate F31.32 ; Social anxiety disorder F40.10 and Morbid obesity E66.01 [place] [address] [address] May, Screening for lipid disorder s Z13.220 [place] [address] [place] [id number] [place] [address] May, Carpal tunnel syndrome on le ft G56.02 ; Social anxiety disorder F40.10 and Screening for lipid disorders Z13.220 [place] [address] [place] [id number] [place] [address] 11 Apr, 2018 Bipolar II disorder F31.81 ; Social anxiety disorder F40.10 ; ADD (attention deficit disorder) without hyperactivity F98.8 and BMI 45.0-49.9, adult Z68.42 [place] [address] [address] 05 Mar, 2018 [place] [address] [address] Feb, BMI 45.0-49.9, adult Z68.42 ; Carpal tunnel syndrome on left G56.02 and Social anxiety disorder F40.10 [place] [address] [address] 09 Jan, 2018 Bipolar II disorder F31.81 ; ADD (attention deficit disorder) without hyperactivity F98.8 ; Social anxiety disorder F40.10 and Stimulant abuse F15.10 [place] [address] [address] Dec, Episode of recurrent major d epressive disorder, unspecified depression episode severity F33.9 ; Other chronic pain G89.29 ; Radiculopathy, lumbar region M54.16 ; Edema of lower extremity R60.0 and BMI 45.0-49.9, adult Z68.42 [place] [address] [place] [id number] [address] [place] [address] Jun, [place] [address] [place] [id number] [address] [place] [address] Jan, Joint pain M25.50 [facility] [address] [facility] [id number] [address] [place] [address] Jan, Wellness examination Z00.00 ; Pain in right knee M25.561 ; Pain in left knee M25.562 ; Edema, unspecified type R60.9 and Drug abuse counseling and surveillance of drug abuser Z71.51 [facility] [address] [place] [id number] [address] [place] [address] November, [facility] [address] [place] [id number] [address] [place] [phone] Oct, [facility] [address] [place] [id number] [address] [place] [address] Oct, ADD (attention deficit disor josselin) F90.0 ; Social anxiety disorder F40.10 and Manic bipolar I disorder in partial remission F31.73 [facility] [address] [place] [id number] [address] [place] [address] Aug, [facility] [address] [place] [id number] [address] [place] [address] Aug, [facility] [address] [place] [id number] [address] [place] [address] Aug, [facility] [address] [place] [id number] [address] [place] [address] Jul, [facility] [address] [facility] [id number] [address] [place] [address] Jul, [facility] [address] [place] [id number] [address] [place] [address] Jul, [facility] [address] [place] [id number] [address] [place] [address] Jun, [facility] [address] [place] [id number] [address] [place] [address] Jun, [facility] [address] [facility] [id number] [address] [place] [address] Jun, [facility] [address] [facility] [id number] [address] [place] [address] Jun, [facility] [address] [facility] [id number] [address] [place] [address] May, Joint pain M25.50 ; ADD (att ention deficit disorder) F90.0 ; Edema R60.9 and Insomnia G47.00 [facility] [address] [facility] [id number] [address] [place] [address] May, [facility] [address] [place] [id number] [place] [address] May, [facility] [address] [place] [id number] [address] [place] [address] May, [facility] [address] [place] [id number] [place] [address] May, Left wrist pain M25.532 ; Si nusitis J32.9 and Drug abuse counseling and surveillance of drug abuser Z71.51 [facility] [address] [facility] [id number] [address] [place] [address] Apr, [facility] [address] [place] [id number] [address] [place] [address] Apr, [facility] [address] [place] [id number] [address] [place] [address] Apr, [facility] [address] [facility] [id number] [address] [place] [address] Apr, [facility] [address] [place] [id number] [address] [place] [address] Apr, [facility] [address] [facility] [id number] [address] [place] [address] Apr, [facility] [address] [place] [id number] [address] [place] [phone] Apr, [facility] [address] [facility] [id number] [address] [place] [address] Mar, Unspecified venous (peripher al) insufficiency 459.81 ; Bipolar I disorder, most recent episode (or current) manic, moderate 296.42 ; Social phobia 300.23 ; Attention deficit disorder of childhood without mention of hyperactivity 314.00 ; Pain in joint, lower leg 719.46 ; Thrombosis 453.9 and Chronic pain 338.29 [facility] [address] [id number] [address] [place] [phone] 18 Mar, 2015 [facility] [address] [id number] [address] [place] [address] Mar, [facility] [address] [facility] [id number] [address] [place] [address] Mar, [facility] [address] [facility] [id number] [address] [place] [address] Mar, [facility] [address] [facility] [id number] [address] [place] [address] Mar, [facility] [address] [facility] [id number] [address] [place] [address] Mar, [facility] [address] [facility] [id number] [address] [place] [address] 10 Mar, 2015 Manic bipolar I disorder in partial remission 296.45 ; Social phobia 300.23 and Attention deficit disorder of childhood without mention of hyperactivity 314.00 [facility] [address] [facility] [id number] [address] [place] [address] Mar, [facility] [address] [facility] [id number] [address] [place] [phone] Feb, [facility] [address] [facility] [id number] [address] [place] [address] Feb, Thrombosis 453.9 ; Unspecifi ed venous (peripheral) insufficiency 459.81 ; Bipolar I disorder, most recent episode (or current) manic, moderate 296.42 ; Social phobia 300.23 ; Attention deficit disorder of childhood without mention of hyperactivity 314.00 ; Pain in joint, lower leg 719.46 and Edema 782.3 [facility] [address] [id number] [address] [place] [address] Feb, [facility] [address] [facility] [id number] [address] [place] [address] Feb, Social phobia 300.23 ; Atten tion deficit disorder of childhood without mention of hyperactivity 314.00 and Bipolar I disorder, most recent episode manic, in partial remission 296.45 [facility] [address] [facility] [id number] [address] [place] [phone] Jan, [facility] [address] [facility] [id number] [address] [place] [phone] Jan, [facility] [address] [place] [id number] [address] [place] [address] Jan, Unspecified venous (peripher al) insufficiency 459.81 and Thrombophlebitis 451.9 [facility] [address] [facility] [id number] [address] [place] [address] Jan, [facility] [address] [facility] [id number] [address] [place] [address] Dec, Headache 784.0 and Back pain 724.5 [facility] [address] [facility] [id number] [address] [place] [address] Dec, [facility] [address] [place] [id number] [address] [place] [address] Dec, Bipolar I disorder, most rec ent episode (or current) manic, moderate 296.42 ; Attention deficit disorder of childhood without mention of hyperactivity 314.00 and Social phobia 300.23 [facility] [address] [facility] [id number] [address] [place] [address] November, [facility] [address] [facility] [id number] [address] [place] [address] November, [facility] [address] [id number] [address] [place] [address], [place] [address] 14 Oct, 2014 [facility] [address] [id number] [address] [place] [address], [place] [address] Oct, [facility] [address] [id number] [address] [place] [address], [place] [address] Sep, [facility] [address] [id number] [address] [place] [address], [place] [address] Sep, [facility] [address] [id number] [address] [place] [address], [place] [address] Aug, [facility] [address] [id number] [address] [place] [address], [place] [address] Aug, [facility] [address] [id number] [address] [place] [address], [place] [address] Aug, [facility] [address] [id number] [address] [place] [address], [place] [address] Aug, [facility] [address] [id number] [address] [place] [address], [place] [address] Aug, [facility] [address] [id number] [address] [place] [address], [place] [address] Aug, [facility] [address] [id number] [address] [place] [address], [place] [address] Aug, [facility] [address] [id number] [address] [place] [address], [place] [address] Jul, [facility] [address] [id number] [address] [place] [address], [place] [address] Jul, [facility] [address] [id number] [address] [place] [address], [place] [address] Jun, [facility] [address] [id number] [address] [place] [address], [place] [address] Jun, [facility] [address] [id number] [address] [place] [address], [place] [address] May, [facility] [address] [id number] [address] [place] [address], [place] [address] May, [facility] [address] [id number] [address] [place] [address], [place] [address] May, [facility] [address] [id number] [address] [place] [address], [place] [address] May, [facility] [address] [id number] [address] [place] [address], [place] [address] May, [facility] [address] [id number] [address] [place] [address], [place] [address] May, [facility] [address] [id number] [address] [place] [address], [place] [address] Apr, [facility] [address] [id number] [address] [place] [address], [place] [address] Apr, [facility] [address] [id number] [address] [place] [address], [place] [address] Apr, [facility] [address] [id number] [address] [place] [address], [place] [address] Apr, [facility] [address] [id number] [address] [place] [address], [place] [address] 22 Mar, 2014 [facility] [address] [id number] [address] [place] [address], [place] [address] 22 Mar, 2013 [facility] [address] [id number] [address] [place] [address], [place] [address] 19 Sep, 2013 [facility] [address] [id number] [address] [place] [address], [place] [address] 16 Sep, 2013 [facility] [address] [id number] [address] [place] [address], [place] [address] 16 Sep, 2013 [facility] [address] [id number] [address] [place] [address], [place] [address] 15 Mar2013 [facility] [address] [id number] [facility] [place] [address] 11 Mar, 2013 [facility] [address] [id number] [facility] [place] [address] Mar, 2013 [facility] [address] [id number] [facility] [place] [address] Mar, 2013 [facility] [address] [id number] [facility] [place] [address] Mar, 2013 [facility] [address] [id number] [address] [place] [address], [place] [address] Mar, 2013 [facility] [address] [id number] [address] [place] [address], [place] [address] Mar, 2013 [facility] [address] [id number] [address] [place] [address], [place] [address] Mar, 2013 [facility] [address] [id number] [address] [place] [address], [place] [address] Mar, 2013 [facility] [address] [id number] [address] [place] [address], [place] [address] Mar, [facility] [address] [id number] [address] [place] [address], [place] [address] Feb, [facility] [address] [id number] [address] [place] [address], [place] [address] Feb, [facility] [address] [id number] [address] [place] [address], [place] [address] Feb, [facility] [address] [id number] [address] [place] [address], [place] [address] Feb, [facility] [address] [id number] [address] [place] [address], [place] [address] Feb, [facility] [address] [id number] [address] [place] [address], [place] [address] Feb, [facility] [address] [id number] [address] [place] [address], [place] [address] Feb, [facility] [address] [id number] [facility] [place] [address] Feb, [facility] [address] [id number] [address] [place] [address], [place] [address] Feb, [facility] [address] [id number] [address] [place] [address], [place] [address] Feb, 2013 [facility] [address] [id number] [address] [place] [address], [place] [address] Feb, [facility] [address] [id number] [address] [place] [address], [place] [address] Feb, [facility] [address] [id number] [address] [place] [address], [place] [address] Feb, [facility] [address] [id number] [address] [place] [address], [place] [address] Feb, [facility] [address] [id number] [address] [place] [address], [place] [address] Jan, [facility] [address] [id number] [address] [place] [address], [place] [address] Jan, [facility] [address] [id number] [address] [place] [address], [place] [address] Jan, [facility] [address] [id number] [address] [place] [address], [place] [address] Jan, [facility] [address] [id number] [address] [place] [address], [place] [address] Jan, [facility] [address] [id number] [address] [place] [address], [place] [address] Jan, [facility] [address] [id number] [address] [place] [address], [place] [address] Jan, [facility] [address] [id number] [address] [place] [address], [place] [address] Dec, [facility] [address] [id number] [address] [place] [address], [place] [address] Dec, [facility] [address] [id number] [address] [place] [address], [place] [address] Dec, [facility] [address] [id number] [address] [place] [address], [place] [address] Dec, [facility] [address] [id number] [address] [place] [address], [place] [address] Dec, [facility] [address] [id number] [address] [place] [address], [place] [address] Dec, [facility] [address] [id number] [address] [place] [address], [place] [address] Dec, [facility] [address] [id number] [address] [place] [address], [place] [address] Dec, [facility] [address] [id number] [address] [place] [address], [place] [address] Dec, [facility] [address] [id number] [address] [place] [address], [place] [address] November, [facility] [address] [id number] [address] [place] [address], [place] [address] November, [facility] [address] [id number] [address] [place] [address], [place] [address] November, [facility] [address] [id number] [address] [place] [address], [place] [address] November, [facility] [address] [id number] [address] [place] [address], [place] [address] November, [facility] [address] [id number] [address] [place] [address], [place] [address] November, [facility] [address] [id number] [address] [place] [address], [place] [address] November, [facility] [address] [id number] [address] [place] [address], [place] [address] November, [facility] [address] [id number] [address] [place] [address], [place] [address] November, [facility] [address] [id number] [address] [place] [address], [place] [address] November, [facility] [address] [id number] [address] [place] [address], [place] [address] November, [facility] [address] [id number] [address] [place] [address], [place] [address] November, [facility] [address] [id number] [address] [place] [address], [place] [address] November, [facility] [address] [id number] [address] [place] [address], [place] [address] November, [facility] [address] [id number] [address] [place] [address], [place] [address] Oct, [facility] [address] [id number] [address] [place] [address], [place] [address] Oct, [facility] [address] [id number] [address] [place] [address], [place] [address] Oct, [facility] [address] [id number] [address] [place] [address], [place] [address] Oct, [facility] [address] [id number] [address] [place] [address], [place] [address] Oct, [facility] [address] [id number] [address] [place] [address], [place] [address] Oct, [facility] [address] [id number] [address] [place] [address], [place] [address] Sep, [facility] [address] [id number] [address] [place] [address], [place] [address] Sep, [facility] [address] [id number] [address] [place] [address], [place] [address] Sep, [facility] [address] [id number] [address] [place] [address], [place] [address] Sep, [facility] [address] [id number] [address] [place] [address], [place] [address] Aug, [facility] [address] [id number] [address] [place] [address], [place] [address] Aug, [facility] [address] [id number] [address] [place] [address], [place] [address] Aug, [facility] [address] [id number] [address] [place] [address], [place] [address] Aug, [facility] [address] [id number] [address] [place] [address], [place] [address] Jul, [facility] [address] [id number] [address] [place] [address], [place] [address] Jul, [facility] [address] [id number] [address] [place] [address], [place] [address] Jul, [facility] [address] [id number] [address] [place] [address], [place] [address] Jul, [facility] [address] [id number] [address] [place] [address], [place] [address] Jul, [facility] [address] [id number] [address] [place] [address], [place] [address] Jul, [facility] [address] [id number] [address] [place] [address], [place] [address] Jul, [facility] [address] [id number] [address] [place] [address], [place] [address] Jun, [facility] [address] [id number] [address] [place] [address], [place] [address] Jun, [facility] [address] [id number] [address] [place] [address], [place] [address] Jun, [facility] [address] [id number] [address] [place] [address], [place] [address] Jun, [facility] [address] [id number] [address] [place] [address], [place] [address] Jun, [facility] [address] [id number] [address] [place] [address], [place] [address] Jun, [facility] [address] [id number] [address] [place] [address], [place] [address] 07 May, 2013 [facility] [address] [id number] [address] [place] [address], [place] [address] 07 May, 2013 [facility] [address] [id number] [address] [place] [address], [place] [address] 15 Apr, 2013 [facility] [address] [id number] [address] [place] [address], [place] [address] 15 Apr, 2013 [facility] [address] [id number] [address] [place] [address], [place] [address] 10 Apr, 2013 [facility] [address] [id number] [address] [place] [address], [place] [address] 10 Apr, 2013 [facility] [address] [id number] [address] [place] [address], [place] [address] 08 Apr, 2013 [facility] [address] [id number] [address] [place] [address], [place] [address] 24 Mar, 2013 [facility] [address] [id number] [address] [place] [address], [place] [address] 19 Mar, 2013 [facility] [address] [id number] [address] [place] [address], [place] [address] 12 Mar, 2013 [facility] [address] [id number] [address] [place] [address], [place] [address] 10 Mar, 2013 [facility] [address] [id number] [address] [place] [address], [place] [address] 16 Feb, 2013 [facility] [address] [id number] [address] [place] [address], [place] [address] 06 Feb, 2013 [facility] [address] [id number] [address] [place] [address], [place] [address] Jan, [facility] [address] [id number] [address] [place] [address], [place] [address] Jan, [facility] [address] [id number] [address] [place] [address], [place] [address] Jan, [facility] [address] [id number] [address] [place] [address], [place] [address] Jan, [facility] [address] [id number] [address] [place] [address], [place] [address] Dec, [facility] [address] [id number] [address] [place] [address], [place] [address] Dec, [facility] [address] [id number] [address] [place] [address], [place] [address] Dec, [facility] [address] [id number] [address] [place] [address], [place] [address] Dec, [facility] [address] [id number] [address] [place] [address], [place] [address] November, [facility] [address] [id number] [address] [place] [address], [place] [address] November, [facility] [address] [id number] [address] [place] [address], [place] [address] Oct, [facility] [address] [id number] [address] [place] [address], [place] [address] Sep, [facility] [address] [id number] [address] [place] [address], [place] [address] Sep, [facility] [address] [id number] [address] [place] [address], [place] [address] 14 Aug, 2012 [facility] [address] [id number] [address] [place] [address], [place] [address] Aug, [facility] [address] [id number] [address] [place] [address], [place] [address] Jul, [facility] [address] [id number] [address] [place] [address], [place] [address] Jul, [facility] [address] [id number] [address] [place] [address], [place] [address] Jul, [facility] [address] [id number] [address] [place] [address], [place] [address] Jun, [facility] [address] [id number] [address] [place] [address], [place] [address] Jun, [facility] [address] [id number] [address] [place] [address], [place] [address] Jun, [facility] [address] [id number] [address] [place] [address], [place] [address] Jun, [facility] [address] [id number] [address] [place] [address], [place] [address] May, [facility] [address] [id number] [address] [place] [address], [place] [address] May, [facility] [address] [id number] [address] [place] [address], [place] [address] 19 May, 2012 [facility] [address] [id number] [address] [place] [address], [place] [address] 14 May, 2012 [facility] [address] [id number] [address] [place] [address], [place] [address] 14 May, 2012 [facility] [address] [id number] [address] [place] [address], [place] [address] May, [facility] [address] [id number] [address] [place] [address], [place] [address] 06 May, 2012 [facility] [address] [id number] [address] [place] [address], [place] [address] 15 Apr, 2012 [facility] [address] [id number] [address] [place] [address], [place] [address] 15 Apr, 2012 [facility] [address] [id number] [address] [place] [address], [place] [address] Apr, [facility] [address] [id number] [address] [place] [address], [place] [address] Apr, [facility] [address] [id number] [address] [place] [address], [place] [address] Apr, [facility] [address] [id number] [address] [place] [address], [place] [address] Apr, [facility] [address] [id number] [address] [place] [address], [place] [address] Apr, [facility] [address] [id number] [address] [place] [address], [place] [address] Apr, [facility] [address] [id number] [address] [place] [address], [place] [address] Jan, [facility] [address] [id number] [address] [place] [address], [place] [address] Jan, [facility] [address] [id number] [address] [place] [address], [place] [address] Dec, [facility] [address] [id number] [address] [place] [address], [place] [address] November, [facility] [address] [id number] [address] [place] [address], [place] [address] Oct, [facility] [address] [id number] [address] [place] [address], [place] [address] Oct, [facility] [address] [id number] [address] [place] [address], [place] [address] Oct, [facility] [address] [id number] [address] [place] [address], [place] [address] Oct, [facility] [address] [id number] [address] [place] [address], [place] [address] Sep, [facility] [address] [id number] [address] [place] [address], [place] [address] Sep, [facility] [address] [id number] [address] [place] [address] 26 Sep, 2011 [facility] [address] [id number] [address] [place] [address], [place] [address] 13 Jun, 2011 [facility] [address] [id number] [address] [place] [address], [place] [address] 13 Jun, 2011 [facility] [address] [id number] [address] [place] [address], [place] [address] 22 May, 2011 [facility] [address] [id number] [address] [place] [address], [place] [address] 14 Jan, 2011 [facility] [address] [id number] [address] [place] [address], [place] [address] 19 Nov, 2010 [facility] [address] [id number] [address] [place] [address], [place] [address] 14 Oct, 2010 [facility] [address] [id number] [address] [place] [address], [place] [address] 16 Sep, 2010 [facility] [address] [id number] [address] [place] [address], [place] [address] 30 May, 2010 [facility] [address] [id number] [address] [place] [address], [place] [address] 19 Jul, 2009 [facility] [address] [id number] [address] [place] [address], [place] [address] 23 Jun, 2009 [facility] [address] [id number] [address] [place] [address], [place] [address] 23 Jun, 2009 [facility] [address] [id number] [address] [place] [address], [place] [address] 15 Jun, 2009 [facility] [address] [id number] [address] [place] [address], [place] [address] 15 Jun, 2009 [facility] [address] [id number] [address] [place] [address], [place] [address] 17 May, 2009 [facility] [address] [id number] [address] [place] [address], [place] [address] 09 May, 2009 [facility] [address] [facility] [id number] [address] [address] Apr, [facility] [address] [facility] [id number] [address] [address] Apr, [facility] [address] [facility] [id number] [address] [address] Apr, IMMUNIZATIONS No Known Immunizations SOCIAL HISTORY Never Assessed REASON FOR VISIT PLAN OF CARE VITAL SIGNS Height 61 in 2014-07-06 Weight 211 lbs 2014-07-06 Temperature 97 degrees Fahrenheit 2014-07-06 Heart Rate 80 bpm 2014-07-06 Respiratory Rate 20 2014-07-06 Blood pressure systolic 132 mmHg 2014-07-06 Blood pressure diastolic 82 mmHg 2014-07-06 MEDICATIONS Unknown Medications RESULTS No Results PROCEDURES [...] right 06/1996 Surgical History multiple knee injections ([id number]) Surgical History left knee replacement 06/11 Hospitalization History Knee surgery- x 3 days 06/11
--- OUTSIDE RECORDS SUMMARY | 2019-12-16 20:30 | XMS REPORT ---
Author Author Patti Guzman Doctor Organization [facility] Address Unknown Phone Unavailable Care Team Providers Care Tree Killer Name Role Phone Migration, Doctor Unavailable Unavailable PROBLEMS Type Condition ICD9-CM Code KOS66-ZM Code Onset Dates Condition S tatus SNOMED Code Problem ADD (attention deficit disorder) F90.0 Active 471730369 Problem Drug abuse counseling and surveillance of drug abuser Z71.51 Active 915666050 Problem Insomnia G47.00 Active 923096489 Problem Joint pain M25.50 Active 48952664 Problem Edema, unspecified type R60.9 Active 450463075 Problem Episode of recurrent major d epressive disorder, unspecified depression episode severity F33.9 Active 711074449 Problem Venous insufficiency (chronic) (peripheral) I87.2 Active [id number] Problem Carpal tunnel syndrome on left G56.02 Active 784518492969647 Problem Manic bipolar I disorder in partial remission F31. 73 Active 79559960 Problem Bipolar affective disorder, currently depressed, moderate F31.32 Active 801710255 Problem Social anxiety disorder F40.10 Active 58060211 Problem Other chronic pain G89.29 Active 8 4278811 Problem Stimulant abuse F15.10 Active 4415 77907 Problem Bipolar II disorder F31.81 Active 79294543 Problem ADD (attention deficit disorder) without hyperactivity F98.8 Active 93500916 ALLERGIES No Information ENCOUNTERS Encounter Location Date Diagnosis [facility] [address] [facility] [place] [id number] [address] [place] [address] Apr, [facility] [address] [facility] [place] [id number] [address] [place] [address] Jan, Bipolar affective disorder, currently depressed, moderate F31.32 [place] [id number] [facility] [place] [id number] [address] [place] [address] Jan, Bipolar affective disorder, currently depressed, moderate F31.32 ; Social anxiety disorder F40.10 and Morbid obesity E66.01 [place] [address] [address] 29 May, 2018 Screening for lipid disorder s Z13.220 [place] [address] [address] 29 May, 2018 Carpal tunnel syndrome on le ft G56.02 ; Social anxiety disorder F40.10 and Screening for lipid disorders Z13.220 [place] [address] [address] 11 Apr, 2018 Bipolar II disorder F31.81 ; Social anxiety disorder F40.10 ; ADD (attention deficit disorder) without hyperactivity F98.8 and BMI 45.0-49.9, adult Z68.42 [place] [address] [address] 05 Mar, 2018 [place] [address] [address] 17 Feb, 2018 BMI 45.0-49.9, adult Z68.42 ; Carpal tunnel syndrome on left G56.02 and Social anxiety disorder F40.10 [place] [address] [address] 09 Jan, 2018 Bipolar II disorder F31.81 ; ADD (attention deficit disorder) without hyperactivity F98.8 ; Social anxiety disorder F40.10 and Stimulant abuse F15.10 [place] [address] [address] Dec, Episode of recurrent major d epressive disorder, unspecified depression episode severity F33.9 ; Other chronic pain G89.29 ; Radiculopathy, lumbar region M54.16 ; Edema of lower extremity R60.0 and BMI 45.0-49.9, adult Z68.42 [place] [address] [address] Jun, [place] [address] [address] 21 Job, 2016 Joint pain M25.50 [facility] [address] [facility] [place] [id number] [address] [place] [address] 18 Jan, 2016 Wellness examination Z00.00 ; Pain in right knee M25.561 ; Pain in left knee M25.562 ; Edema, unspecified type R60.9 and Drug abuse counseling and surveillance of drug abuser Z71.51 [facility] [address] [facility] [place] [id number] [address] [place] [address] November, [facility] [address] [facility] [place] [id number] [address] [place] [address] Oct, [facility] [address] [facility] [place] [id number] [address] [place] [address] Oct, ADD (attention deficit disor josselin) F90.0 ; Social anxiety disorder F40.10 and Manic bipolar I disorder in partial remission F31.73 [facility] [address] [facility] [place] [id number] [address] [place] [address] Aug, [facility] [address] [facility] [place] [id number] [address] [place] [address] Aug, [facility] [address] [facility] [place] [id number] [address] [place] [phone] Aug, [facility] [address] [facility] [place] [id number] [address] [place] [address] Jul, [facility] [address] [facility] [place] [id number] [address] [place] [address] Jul, [facility] [address] [facility] [place] [id number] [address] [place] [address] Jul, [facility] [address] [facility] [place] [id number] [address] [place] [address] Jun, [facility] [address] [facility] [place] [id number] [address] [place] [address] Jun, [facility] [address] [facility] [place] [id number] [address] [place] [address] Jun, [facility] [address] [id number] [address] [place] [address] Jun, [facility] [address] [id number] [address] [place] [address] May, Joint pain M25.50 ; ADD (att ention deficit disorder) F90.0 ; Edema R60.9 and Insomnia G47.00 [facility] [address] [id number] [address] [place] [address] May, [facility] [address] [id number] [address] [place] [address] May, [facility] [address] [id number] [address] [place] [address] May, [facility] [address] [facility] [place] [id number] [address] [place] [address] May, Left wrist pain M25.532 ; Si nusitis J32.9 and Drug abuse counseling and surveillance of drug abuser Z71.51 [facility] [address] [facility] [place] [id number] [address] [place] [address] Apr, [facility] [address] [facility] [place] [id number] [address] [place] [address] Apr, [facility] [address] [facility] [place] [id number] [address] [place] [address] Apr, [facility] [address] [id number] [address] [place] [address] Apr, [facility] [address] [facility] [place] [id number] [address] [place] [address] Apr, [facility] [address] [facility] [place] [id number] [address] [place] [address] Apr, [facility] [address] [facility] [place] [id number] [address] [place] [address] Apr, [facility] [address] [facility] [place] [id number] [address] [place] [address] Mar, Unspecified venous (peripher al) insufficiency 459.81 ; Bipolar I disorder, most recent episode (or current) manic, moderate 296.42 ; Social phobia 300.23 ; Attention deficit disorder of childhood without mention of hyperactivity 314.00 ; Pain in joint, lower leg 719.46 ; Thrombosis 453.9 and Chronic pain 338.29 [facility] [address] [id number] [address] [place] [address] Mar, [facility] [address] [id number] [address] [place] [address] Mar, [facility] [address] [id number] [address] [place] [address] Mar, [facility] [address] [id number] [address] [place] [address] Mar, [facility] [address] [id number] [address] [place] [address] Mar, [facility] [address] [id number] [address] [place] [id number] Mar, [facility] [address] [facility] [place] [id number] [address] [place] [address] Mar, Manic bipolar I disorder in partial remission 296.45 ; Social phobia 300.23 and Attention deficit disorder of childhood without mention of hyperactivity 314.00 [facility] [address] [facility] [place] [id number] [address] [place] [address] Mar, [facility] [address] [id number] [address] [place] [address] Feb, [facility] [address] [id number] [address] [place] [address] Feb, Thrombosis 453.9 ; Unspecifi ed venous (peripheral) insufficiency 459.81 ; Bipolar I disorder, most recent episode (or current) manic, moderate 296.42 ; Social phobia 300.23 ; Attention deficit disorder of childhood without mention of hyperactivity 314.00 ; Pain in joint, lower leg 719.46 and Edema 782.3 [facility] [address] [id number] [address] [place] [address] Feb, [facility] [address] [id number] [address] [place] [address] Feb, Social phobia 300.23 ; Atten tion deficit disorder of childhood without mention of hyperactivity 314.00 and Bipolar I disorder, most recent episode manic, in partial remission 296.45 [facility] [address] [id number] [address] [place] [address] Jan, [facility] [address] [id number] [address] [place] [address] Jan, [facility] [address] [facility] [place] [id number] [address] [place] [address] Jan, Unspecified venous (peripher al) insufficiency 459.81 and Thrombophlebitis 451.9 [facility] [address] [facility] [place] [id number] [address] [place] [address] Jan, [facility] [address] [id number] [address] [place] [address] Dec, Headache 784.0 and Back pain 724.5 [facility] [address] [id number] [address] [place] [address] Dec, [facility] [address] [facility] [place] [id number] [address] [place] [address] Dec, Bipolar I disorder, most rec ent episode (or current) manic, moderate 296.42 ; Attention deficit disorder of childhood without mention of hyperactivity 314.00 and Social phobia 300.23 [facility] [address] [facility] [place] [id number] [address] [place] [address] November, [facility] [address] [facility] [place] [id number] [address] [place] [phone] November, [facility] [address] [facility] [place] [id number] [address] [place] [phone] Oct, [facility] [address] [id number] [address] [place] [address], [place] [address] 13 Oct, 2014 [facility] [address] [id number] [address] [place] [address], [place] [address] 17 Sep, 2014 [facility] [address] [id number] [address] [place] [address], [place] [address] Sep, [facility] [address] [id number] [address] [place] [address], [place] [address] Aug, [facility] [address] [id number] [address] [place] [address], [place] [address] Aug, [facility] [address] [id number] [address] [place] [address], [place] [address] Aug, [facility] [address] [id number] [address] [place] [address], [place] [address] Aug, [facility] [address] [id number] [address] [place] [address], [place] [address] Aug, [facility] [address] [id number] [address] [place] [address], [place] [address] Aug, [facility] [address] [id number] [address] [place] [address], [place] [address] Aug, [facility] [address] [id number] [address] [place] [address], [place] [address] Jul, [facility] [address] [id number] [address] [place] [address], [place] [address] Jul, [facility] [address] [id number] [address] [place] [address], [place] [address] Jun, [facility] [address] [id number] [address] [place] [address], [place] [address] Jun, [facility] [address] [id number] [address] [place] [address], [place] [address] May, [facility] [address] [id number] [address] [place] [address], [place] [address] May, [facility] [address] [id number] [address] [place] [address], [place] [address] May, [facility] [address] [id number] [address] [place] [address], [place] [address] May, [facility] [address] [id number] [address] [place] [address], [place] [address] May, [facility] [address] [id number] [address] [place] [address], [place] [address] May, [facility] [address] [id number] [address] [place] [address], [place] [address] Apr, [facility] [address] [id number] [address] [place] [address], [place] [address] Apr, [facility] [address] [id number] [address] [place] [address], [place] [address] Apr, [facility] [address] [id number] [address] [place] [address], [place] [address] Apr, [facility] [address] [id number] [address] [place] [address], [place] [address] 22 Mar, 2014 [facility] [address] [id number] [address] [place] [address], [place] [address] 22 Mar, 2014 [facility] [address] [id number] [address] [place] [address], [place] [address] 19 Mar, 2014 [facility] [address] [id number] [address] [place] [address], [place] [address] 16 Mar, 2013 [facility] [address] [id number] [address] [place] [address], [place] [address] 16 Mar, 2014 [facility] [address] [id number] [address] [place] [address], [place] [address] 15 Mar, 2014 [facility] [address] [id number] [address] [place] [address], [place] [address] Mar, 2013 [facility] [address] [id number] [facility] [place] [address] Mar, 2013 [facility] [address] [id number] [address] [place] [address], [place] [address] Mar, 2013 [facility] [address] [id number] [address] [place] [address], [place] [address] Mar, 2013 [facility] [address] [id number] [address] [place] [address], [place] [address] Mar, 2013 [facility] [address] [id number] [address] [place] [address], [place] [address] Mar, 2013 [facility] [address] [id number] [address] [place] [address], [place] [address] Mar, 2013 [facility] [address] [id number] [address] [place] [address], [place] [address] Mar, 2013 [facility] [address] [id number] [address] [place] [address], [place] [address] Mar, 2013 [facility] [address] [id number] [address] [place] [address], [place] [address] Feb, [facility] [address] [id number] [address] [place] [address], [place] [address] Feb, [facility] [address] [id number] [address] [place] [address], [place] [address] Feb, [facility] [address] [id number] [address] [place] [address], [place] [address] Feb, [facility] [address] [id number] [address] [place] [address], [place] [address] Feb, [facility] [address] [id number] [address] [place] [address], [place] [address] Feb, [facility] [address] [id number] [address] [place] [address], [place] [address] Feb, [facility] [address] [id number] [address] [place] [address], [place] [address] Feb, 2013 [facility] [address] [id number] [address] [place] [address], [place] [address] Feb, [facility] [address] [id number] [address] [place] [address], [place] [address] Feb, [facility] [address] [id number] [address] [place] [address], [place] [address] Feb, [facility] [address] [id number] [address] [place] [address], [place] [address] Feb, [facility] [address] [id number] [address] [place] [address], [place] [address] Feb, [facility] [address] [id number] [address] [place] [address], [place] [address] Feb, [facility] [address] [id number] [address] [place] [address], [place] [address] Jan, [facility] [address] [id number] [address] [place] [address], [place] [address] Jan, [facility] [address] [id number] [address] [place] [address], [place] [address] Jan, [facility] [address] [id number] [address] [place] [address], [place] [address] Jan, [facility] [address] [id number] [address] [place] [address], [place] [address] Jan, [facility] [address] [id number] [address] [place] [address], [place] [address] Jan, [facility] [address] [id number] [address] [place] [address], [place] [address] Jan, [facility] [address] [id number] [address] [place] [address], [place] [address] Dec, [facility] [address] [id number] [address] [place] [address], [place] [address] Dec, [facility] [address] [id number] [facility] [place] [address] Dec, [facility] [address] [id number] [facility] [address] Dec, [facility] [address] [id number] [facility] [address] Dec, [facility] [address] [id number] [facility] [address] Dec, [facility] [address] [id number] [facility] [address] Dec, [facility] [address] [id number] [facility] [address] Dec, [facility] [address] [id number] [address] [place] [address], [place] [address] Dec, [facility] [address] [id number] [address] [place] [address], [place] [address] November, [facility] [address] [id number] [address] [place] [address], [place] [address] November, [facility] [address] [id number] [address] [place] [address], [place] [address] November, [facility] [address] [id number] [address] [place] [address], [place] [address] November, [facility] [address] [id number] [address] [place] [address], [place] [address] November, [facility] [address] [id number] [address] [place] [address], [place] [address] November, [facility] [address] [id number] [address] [place] [address], [place] [address] November, [facility] [address] [id number] [address] [place] [address], [place] [address] November, [facility] [address] [id number] [address] [place] [address], [place] [address] November, [facility] [address] [id number] [facility] [address] November, [facility] [address] [id number] [address] [place] [address], [place] [address] November, [facility] [address] [id number] [address] [place] [address], [place] [address] November, [facility] [address] [id number] [address] [place] [address], [place] [address] November, [facility] [address] [id number] [address] [place] [address], [place] [address] November, [facility] [address] [id number] [address] [place] [address], [place] [address] Oct, [facility] [address] [id number] [address] [place] [address], [place] [address] Oct, [facility] [address] [id number] [address] [place] [address], [place] [id number] Oct, [facility] [address] [id number] [address] [place] [address], [place] [id number] Oct, [facility] [address] [id number] [address] [place] [address], [place] [address] Oct, [facility] [address] [id number] [address] [place] [address], [place] [address] Oct, [facility] [address] [id number] [address] [place] [address], [place] [address] Sep, [facility] [address] [id number] [address] [place] [address], [place] [address] Sep, [facility] [address] [id number] [address] [place] [address], [place] [address] Sep, [facility] [address] [id number] [address] [place] [address], [place] [address] Sep, [facility] [address] [id number] [address] [place] [address], [place] [id number] Aug, [facility] [address] [id number] [address] [place] [address], [place] [address] Aug, [facility] [address] [id number] [address] [place] [address], [place] [address] Aug, [facility] [address] [id number] [address] [place] [address], [place] [address] Aug, [facility] [address] [id number] [address] [place] [address], [place] [address] Jul, [facility] [address] [id number] [address] [place] [address], [place] [address] Jul, [facility] [address] [id number] [address] [place] [address], [place] [address] Jul, [facility] [address] [id number] [address] [place] [address], [place] [address] Jul, [facility] [address] [id number] [address] [place] [address], [place] [address] Jul, [facility] [address] [id number] [address] [place] [address], [place] [address] Jul, [facility] [address] [id number] [address] [place] [address], [place] [address] Jul, [facility] [address] [id number] [address] [place] [address], [place] [address] Jun, [facility] [address] [id number] [address] [place] [address], [place] [address] Jun, [facility] [address] [id number] [address] [place] [address], [place] [id number] 17 Jun, 2013 [facility] [address] [id number] [address] [place] [address], [place] [address] 17 Jun, 2013 [facility] [address] [id number] [address] [place] [address], [place] [address] Jun, [facility] [address] [id number] [address] [place] [address], [place] [address] 13 Jun, 2013 [facility] [address] [id number] [address] [place] [address], [place] [address] 07 May, 2013 [facility] [address] [address] [id number] [address] [place] [address], [place] [id number] 07 May, 2013 [facility] [address] [id number] [address] [place] [address], [place] [address] 15 Apr, 2013 [facility] [address] [id number] [address] [place] [address], [place] [id number] 15 Apr, 2013 [facility] [address] [id number] [address] [place] [address], [place] [id number] 10 Apr, 2013 [facility] [address] [id number] [address] [place] [address], [place] [id number] 10 Apr, 2013 [facility] [address] [id number] [address] [place] [address], [place] [id number] 08 Apr, 2013 [facility] [address] [id number] [address] [place] [address], [place] [address] 24 Mar, 2013 [facility] [address] [id number] [address] [place] [id number] 19 Mar, 2013 [facility] [address] [id number] [address] [place] [id number] 12 Mar, 2013 [facility] [address] [id number] [address] [place] [id number] 10 Mar, 2013 [facility] [address] [id number] [address] [place] [address], [place] [address] 16 Feb, 2013 [facility] [address] [id number] [address] [place] [id number] 06 Feb, 2013 [facility] [address] [id number] [address] [place] [id number] 18 Jan, 2013 [facility] [address] [id number] [address] [place] [id number] Jan, [facility] [address] [id number] [address] [place] [address], [place] [address] Jan, [facility] [address] [id number] [address] [place] [address], [place] [address] Jan, [facility] [address] [id number] [address] [place] [address], [place] [address] Dec, [facility] [address] [id number] [address] [place] [address], [place] [address] Dec, [facility] [address] [id number] [address] [place] [address], [place] [address] Dec, [facility] [address] [id number] [address] [place] [address], [place] [address] Dec, [facility] [address] [id number] [address] [place] [address], [place] [address] November, [facility] [address] [id number] [address] [place] [address], [place] [address] November, [facility] [address] [id number] [address] [place] [address], [place] [address] Oct, [facility] [address] [id number] [address] [place] [address], [place] [address] Sep, [facility] [address] [id number] [address] [place] [address], [place] [address] Sep, [facility] [address] [id number] [address] [place] [address], [place] [address] Aug, [facility] [address] [id number] [address] [place] [address], [place] [address] Aug, [facility] [address] [id number] [address] [place] [address], [place] [address] Jul, [facility] [address] [id number] [address] [place] [address], [place] [address] Jul, [facility] [address] [id number] [address] [place] [address], [place] [address] Jul, [facility] [address] [id number] [address] [place] [address], [place] [address] Jun, [facility] [address] [id number] [address] [place] [address], [place] [address] Jun, [facility] [address] [id number] [address] [place] [address], [place] [address] Jun, [facility] [address] [id number] [address] [place] [address], [place] [address] Jun, [facility] [address] [id number] [address] [place] [address], [place] [address] May, [facility] [address] [id number] [address] [place] [address], [place] [address] May, [facility] [address] [id number] [address] [place] [address], [place] [address] May, [facility] [address] [id number] [address] [place] [address], [place] [address] May, [facility] [address] [id number] [address] [place] [address], [place] [address] May, [facility] [address] [id number] [address] [place] [address], [place] [address] May, [facility] [address] [id number] [address] [place] [address], [place] [address] May, [facility] [address] [id number] [address] [place] [address], [place] [address] 15 Apr, 2012 [facility] [address] [id number] [address] [place] [address], [place] [address] 15 Apr, 2012 [facility] [address] [id number] [address] [place] [address], [place] [address] 15 Apr, 2012 [facility] [address] [id number] [address] [place] [address], [place] [address] Apr, [facility] [address] [id number] [address] [place] [address], [place] [address] Apr, [facility] [address] [id number] [address] [place] [address], [place] [address] Apr, [facility] [address] [id number] [address] [place] [address], [place] [address] Apr, [facility] [address] [id number] [address] [place] [address], [place] [address] Apr, [facility] [address] [id number] [address] [place] [address], [place] [address] Jan, [facility] [address] [id number] [address] [place] [address], [place] [address] Jan, [facility] [address] [id number] [address] [place] [address], [place] [address] Dec, [facility] [address] [id number] [address] [place] [address], [place] [address] November, [facility] [address] [id number] [address] [place] [address], [place] [address] Oct, [facility] [address] [id number] [address] [place] [address], [place] [address] Oct, [facility] [address] [id number] [address] [place] [address], [place] [address] Oct, [facility] [address] [id number] [address] [place] [address], [place] [address] Oct, [facility] [address] [id number] [address] [place] [address], [place] [address] Sep, [facility] [address] [id number] [address] [place] [address], [place] [address] Sep, [facility] [address] [id number] [address] [place] [address], [place] [address] Sep, [facility] [address] [id number] [address] [place] [address], [place] [address] 13 Jun, 2011 [facility] [address] [id number] [address] [place] [address], [place] [address] 13 Jun, 2011 [facility] [address] [id number] [address] [place] [address], [place] [address] 22 May, 2011 [facility] [address] [id number] [address] [place] [address], [place] [address] 14 Jan, 2011 [facility] [address] [id number] [address] [place] [address], [place] [address] 19 Nov, 2010 [facility] [address] [id number] [address] [place] [address], [place] [address] 14 Oct, 2010 [facility] [address] [id number] [address] [place] [address], [place] [address] 16 Sep, 2010 [facility] [address] [id number] [address] [place] [address], [place] [address] 30 May, 2010 [facility] [address] [id number] [address] [place] [address], [place] [address] 19 Jul, 2009 [facility] [address] [id number] [address] [place] [address], [place] [address] 23 Jun, 2009 [facility] [address] [id number] [address] [place] [address], [place] [address] 23 Jun, 2009 [facility] [address] [id number] [address] [place] [address], [place] [address] 15 Jun, 2009 [facility] [address] [id number] [address] [place] [address], [place] [address] 15 Jun, 2009 [facility] [address] [id number] [address] [place] [address], [place] [address] 17 May, 2009 [facility] [address] [id number] [address] [place] [address], [place] [address] 09 May, 2009 [facility] [address] [id number] [address] [place] [address], [place] [address] Apr, [facility] [address] [facility] [place] [id number] [address] [place] [id number] Apr, [facility] [address] [facility] [place] [id number] [address] [place] [id number] Apr, IMMUNIZATIONS No Known Immunizations SOCIAL HISTORY [...] right 06/1996 Surgical History multiple knee injections ([id number]) Surgical History left knee replacement 06/11 Hospitalization History Knee surgery- x 3 days 06/11
--- OUTSIDE RECORDS SUMMARY | 2019-12-16 20:30 | XMS REPORT ---
Author Author Patti HERNANDEZ Organization [facility] Address [address] [place] [address] Care Team Providers Care Wardrobe Attendant Name Role Phone DARLING HERNANDEZ Unavailable PROBLEMS Type Condition ICD9-CM Code [id number] Code Onset Dates Condition S tatus SNOMED Code Problem ADD (attention deficit disorder) F90.0 Active 517334114 Problem Drug abuse counseling and surveillance of drug abuser Z71.51 Active 689536044 Problem Insomnia G47.00 Active 472642710 Problem Joint pain M25.50 Active 39050148 Problem Edema, unspecified type R60.9 Active 694207918 Problem Episode of recurrent major d epressive disorder, unspecified depression episode severity F33.9 Active 902374065 Problem Venous insufficiency (chronic) (peripheral) I87.2 Active 52435557616214035 Problem Carpal tunnel syndrome on left G56.02 Active [id number] Problem Manic bipolar I disorder in partial remission F31. 73 Active 42332885 Problem Bipolar affective disorder, currently depressed, moderate F31.32 Active 499323320 Problem Social anxiety disorder F40.10 Active 42962270 Problem Other chronic pain G89.29 Active 8 5680567 Problem Stimulant abuse F15.10 Active 9505 08091 Problem Bipolar II disorder F31.81 Active 19356404 Problem ADD (attention deficit disorder) without hyperactivity F98.8 Active 81449135 ALLERGIES No Information ENCOUNTERS Encounter Location Date Diagnosis [facility] [address] [facility] [id number] [address] [place] [phone] Apr, [facility] [address] [facility] [id number] [address] [place] [phone] Jan, Bipolar affective disorder, currently depressed, moderate F31.32 [facility] [address] [facility] [id number] [address] [place] [id number] 16 Job, 2019 Bipolar affective disorder, currently depressed, moderate F31.32 ; Social anxiety disorder F40.10 and Morbid obesity E66.01 [place] [address] [address] May, Screening for lipid disorder s Z13.220 [place] [address] [place] [id number] [place] [address] May, Carpal tunnel syndrome on le ft G56.02 ; Social anxiety disorder F40.10 and Screening for lipid disorders Z13.220 [place] [address] [place] [id number] [place] [id number] 11 Apr, 2018 Bipolar II disorder F31.81 ; Social anxiety disorder F40.10 ; ADD (attention deficit disorder) without hyperactivity F98.8 and BMI 45.0-49.9, adult Z68.42 [place] [address] [address] 05 Mar, 2018 [place] [address] [address] Feb, BMI 45.0-49.9, adult Z68.42 ; Carpal tunnel syndrome on left G56.02 and Social anxiety disorder F40.10 [place] [address] [id number] 09 Jan, 2018 Bipolar II disorder F31.81 ; ADD (attention deficit disorder) without hyperactivity F98.8 ; Social anxiety disorder F40.10 and Stimulant abuse F15.10 [place] [address] [address] Dec, Episode of recurrent major d epressive disorder, unspecified depression episode severity F33.9 ; Other chronic pain G89.29 ; Radiculopathy, lumbar region M54.16 ; Edema of lower extremity R60.0 and BMI 45.0-49.9, adult Z68.42 [place] [address] [place] [id number] [address] [place] [phone] Jun, [place] [address] [place] [id number] [address] [place] [address] Jan, Joint pain M25.50 [facility] [address] [facility] [id number] [address] [place] [phone] Jan, Wellness examination Z00.00 ; Pain in right knee M25.561 ; Pain in left knee M25.562 ; Edema, unspecified type R60.9 and Drug abuse counseling and surveillance of drug abuser Z71.51 [facility] [address] [place] [id number] [address] [place] [id number] November, [facility] [address] [place] [id number] [address] [place] [phone] Oct, [facility] [address] [place] [id number] [address] [place] [id number] Oct, ADD (attention deficit disor josselin) F90.0 ; Social anxiety disorder F40.10 and Manic bipolar I disorder in partial remission F31.73 [facility] [address] [place] [id number] [address] [place] [phone] Aug, [facility] [address] [place] [id number] [address] [place] [phone] Aug, [facility] [address] [place] [id number] [address] [place] [phone] Aug, [facility] [address] [place] [id number] [address] [place] [id number] Jul, [facility] [address] [facility] [id number] [address] [place] [id number] Jul, [facility] [address] [place] [id number] [address] [place] [phone] Jul, [facility] [address] [place] [id number] [address] [place] [phone] Jun, [facility] [address] [place] [id number] [address] [place] [phone] Jun, [facility] [address] [facility] [id number] [address] [place] [phone] Jun, [facility] [address] [facility] [id number] [address] [place] [phone] Jun, [facility] [address] [facility] [id number] [address] [place] [address] May, Joint pain M25.50 ; ADD (att ention deficit disorder) F90.0 ; Edema R60.9 and Insomnia G47.00 [facility] [address] [facility] [id number] [address] [place] [phone] May, [facility] [address] [place] [id number] [place] [phone] May, [facility] [address] [place] [id number] [address] [place] [phone] May, [facility] [address] [place] [id number] [place] [address] May, Left wrist pain M25.532 ; Si nusitis J32.9 and Drug abuse counseling and surveillance of drug abuser Z71.51 [facility] [address] [facility] [id number] [address] [place] [phone] Apr, [facility] [address] [place] [id number] [address] [place] [phone] Apr, [facility] [address] [place] [id number] [address] [place] [phone] Apr, [facility] [address] [facility] [id number] [address] [place] [phone] Apr, [facility] [address] [place] [id number] [address] [place] [phone] Apr, [facility] [address] [facility] [id number] [address] [place] [phone] Apr, [facility] [address] [place] [id number] [address] [place] [phone] Apr, [facility] [address] [facility] [id number] [address] [place] [id number] Mar, Unspecified venous (peripher al) insufficiency 459.81 ; Bipolar I disorder, most recent episode (or current) manic, moderate 296.42 ; Social phobia 300.23 ; Attention deficit disorder of childhood without mention of hyperactivity 314.00 ; Pain in joint, lower leg 719.46 ; Thrombosis 453.9 and Chronic pain 338.29 [facility] [address] [id number] [address] [place] [phone] 18 Mar, 2015 [facility] [address] [id number] [address] [place] [id number] Mar, [facility] [address] [facility] [id number] [address] [place] [phone] Mar, [facility] [address] [facility] [id number] [address] [place] [phone] Mar, [facility] [address] [facility] [id number] [address] [place] [phone] Mar, [facility] [address] [facility] [id number] [address] [place] [phone] Mar, [facility] [address] [facility] [id number] [address] [place] [phone] 10 Mar, 2015 Manic bipolar I disorder in partial remission 296.45 ; Social phobia 300.23 and Attention deficit disorder of childhood without mention of hyperactivity 314.00 [facility] [address] [facility] [id number] [address] [place] [id number] Mar, [facility] [address] [facility] [id number] [address] [place] [phone] Feb, [facility] [address] [facility] [id number] [address] [place] [id number] Feb, Thrombosis 453.9 ; Unspecifi ed venous (peripheral) insufficiency 459.81 ; Bipolar I disorder, most recent episode (or current) manic, moderate 296.42 ; Social phobia 300.23 ; Attention deficit disorder of childhood without mention of hyperactivity 314.00 ; Pain in joint, lower leg 719.46 and Edema 782.3 [facility] [address] [id number] [address] [place] [phone] Feb, [facility] [address] [facility] [id number] [address] [place] [phone] Feb, Social phobia 300.23 ; Atten tion deficit disorder of childhood without mention of hyperactivity 314.00 and Bipolar I disorder, most recent episode manic, in partial remission 296.45 [facility] [address] [facility] [id number] [address] [place] [phone] Jan, [facility] [address] [facility] [id number] [address] [place] [phone] Jan, [facility] [address] [place] [id number] [address] [place] [id number] Jan, Unspecified venous (peripher al) insufficiency 459.81 and Thrombophlebitis 451.9 [facility] [address] [facility] [id number] [address] [place] [phone] Jan, [facility] [address] [facility] [id number] [address] [place] [phone] Dec, Headache 784.0 and Back pain 724.5 [facility] [address] [facility] [id number] [address] [place] [phone] Dec, [facility] [address] [place] [id number] [address] [place] [phone] Dec, Bipolar I disorder, most rec ent episode (or current) manic, moderate 296.42 ; Attention deficit disorder of childhood without mention of hyperactivity 314.00 and Social phobia 300.23 [facility] [address] [facility] [id number] [address] [place] [phone] November, [facility] [address] [facility] [id number] [address] [place] [phone] November, [facility] [address] [id number] [address] [place] [address], [place] [address] 14 Oct, 2014 [facility] [address] [id number] [address] [place] [address], [place] [address] Oct, [facility] [address] [id number] [address] [place] [address], [place] [address] Sep, [facility] [address] [id number] [address] [place] [address], [place] [id number] Sep, [facility] [address] [id number] [address] [place] [address], [place] [address] Aug, [facility] [address] [id number] [address] [place] [address], [place] [address] Aug, [facility] [address] [id number] [address] [place] [address], [place] [address] Aug, [facility] [address] [id number] [address] [place] [address], [place] [address] Aug, [facility] [address] [id number] [address] [place] [address], [place] [address] Aug, [facility] [address] [id number] [address] [place] [address], [place] [address] Aug, [facility] [address] [id number] [address] [place] [address], [place] [address] Aug, [facility] [address] [id number] [address] [place] [address], [place] [address] Jul, [facility] [address] [id number] [address] [place] [address], [place] [address] Jul, [facility] [address] [id number] [address] [place] [address], [place] [address] Jun, [facility] [address] [id number] [address] [place] [address], [place] [address] Jun, [facility] [address] [id number] [address] [place] [address], [place] [address] May, [facility] [address] [id number] [address] [place] [address], [place] [address] May, [facility] [address] [id number] [address] [place] [address], [place] [address] May, [facility] [address] [id number] [address] [place] [address], [place] [address] May, [facility] [address] [id number] [address] [place] [address], [place] [address] May, [facility] [address] [id number] [address] [place] [address], [place] [address] May, [facility] [address] [id number] [address] [place] [address], [place] [address] Apr, [facility] [address] [id number] [address] [place] [address], [place] [address] Apr, [facility] [address] [id number] [address] [place] [address], [place] [address] Apr, [facility] [address] [id number] [address] [place] [address], [place] [address] Apr, [facility] [address] [id number] [address] [place] [address], [place] [address] 22 Mar, 2014 [facility] [address] [id number] [address] [place] [address], [place] [address] 22 Mar, 2013 [facility] [address] [id number] [address] [place] [address], [place] [address] 19 Sep, 2013 [facility] [address] [id number] [address] [place] [address], [place] [address] 16 Sep, 2013 [facility] [address] [id number] [address] [place] [address], [place] [address] 16 Sep, 2013 [facility] [address] [id number] [address] [place] [address], [place] [address] 15 Mar2013 [facility] [address] [id number] [facility] [place] [address] 11 Mar, 2013 [facility] [address] [id number] [facility] [place] [address] Mar, 2013 [facility] [address] [id number] [facility] [place] [address] Mar, 2013 [facility] [address] [id number] [facility] [place] [address] Mar, 2013 [facility] [address] [id number] [address] [place] [address], [place] [address] Mar, 2013 [facility] [address] [id number] [address] [place] [address], [place] [address] Mar, 2013 [facility] [address] [id number] [address] [place] [address], [place] [address] Mar, 2013 [facility] [address] [id number] [address] [place] [address], [place] [address] Mar, 2013 [facility] [address] [id number] [address] [place] [address], [place] [address] Mar, [facility] [address] [id number] [address] [place] [address], [place] [address] Feb, [facility] [address] [id number] [address] [place] [address], [place] [address] Feb, [facility] [address] [id number] [address] [place] [address], [place] [address] Feb, [facility] [address] [id number] [address] [place] [address], [place] [address] Feb, [facility] [address] [id number] [address] [place] [address], [place] [address] Feb, [facility] [address] [id number] [address] [place] [address], [place] [address] Feb, [facility] [address] [id number] [address] [place] [address], [place] [address] Feb, [facility] [address] [id number] [facility] [place] [address] Feb, [facility] [address] [id number] [address] [place] [address], [place] [address] Feb, [facility] [address] [id number] [address] [place] [address], [place] [address] Feb, 2013 [facility] [address] [id number] [address] [place] [address], [place] [address] Feb, [facility] [address] [id number] [address] [place] [address], [place] [address] Feb, [facility] [address] [id number] [address] [place] [address], [place] [address] Feb, [facility] [address] [id number] [address] [place] [address], [place] [address] Feb, [facility] [address] [id number] [address] [place] [address], [place] [address] Jan, [facility] [address] [id number] [address] [place] [address], [place] [address] Jan, [facility] [address] [id number] [address] [place] [address], [place] [address] Jan, [facility] [address] [id number] [address] [place] [address], [place] [address] Jan, [facility] [address] [id number] [address] [place] [address], [place] [address] Jan, [facility] [address] [id number] [address] [place] [address], [place] [address] Jan, [facility] [address] [id number] [address] [place] [address], [place] [address] Jan, [facility] [address] [id number] [address] [place] [address], [place] [address] Dec, [facility] [address] [id number] [address] [place] [address], [place] [address] Dec, [facility] [address] [id number] [address] [place] [address], [place] [address] Dec, [facility] [address] [id number] [address] [place] [address], [place] [address] Dec, [facility] [address] [id number] [address] [place] [address], [place] [address] Dec, [facility] [address] [id number] [address] [place] [address], [place] [address] Dec, [facility] [address] [id number] [address] [place] [address], [place] [address] Dec, [facility] [address] [id number] [address] [place] [address], [place] [address] Dec, [facility] [address] [id number] [address] [place] [address], [place] [address] Dec, [facility] [address] [id number] [address] [place] [address], [place] [address] November, [facility] [address] [id number] [address] [place] [address], [place] [address] November, [facility] [address] [id number] [address] [place] [address], [place] [address] November, [facility] [address] [id number] [address] [place] [address], [place] [address] November, [facility] [address] [id number] [address] [place] [address], [place] [address] November, [facility] [address] [id number] [address] [place] [address], [place] [address] November, [facility] [address] [id number] [address] [place] [address], [place] [address] November, [facility] [address] [id number] [address] [place] [address], [place] [address] November, [facility] [address] [id number] [address] [place] [address], [place] [address] November, [facility] [address] [id number] [address] [place] [address], [place] [address] November, [facility] [address] [id number] [address] [place] [address], [place] [address] November, [facility] [address] [id number] [address] [place] [address], [place] [id number] November, [facility] [address] [id number] [address] [place] [address], [place] [id number] November, [facility] [address] [id number] [address] [place] [address], [place] [id number] November, [facility] [address] [id number] [address] [place] [address], [place] [address] Oct, [facility] [address] [id number] [address] [place] [address], [place] [address] Oct, [facility] [address] [id number] [address] [place] [address], [place] [address] Oct, [facility] [address] [id number] [address] [place] [address], [place] [id number] Oct, [facility] [address] [id number] [address] [place] [address], [place] [id number] Oct, [facility] [address] [id number] [address] [place] [address], [place] [id number] Oct, [facility] [address] [id number] [address] [place] [address], [place] [id number] Sep, [facility] [address] [id number] [address] [place] [address], [place] [id number] Sep, [facility] [address] [id number] [address] [place] [address], [place] [id number] Sep, [facility] [address] [id number] [address] [place] [address], [place] [id number] Sep, [facility] [address] [id number] [address] [place] [address], [place] [address] Aug, [facility] [address] [id number] [address] [place] [address], [place] [id number] Aug, [facility] [address] [id number] [address] [place] [address], [place] [id number] Aug, [facility] [address] [id number] [address] [place] [address], [place] [address] Aug, [facility] [address] [id number] [address] [place] [address], [place] [id number] Jul, [facility] [address] [id number] [address] [place] [address], [place] [address] Jul, [facility] [address] [id number] [address] [place] [address], [place] [id number] Jul, [facility] [address] [id number] [address] [place] [address], [place] [id number] Jul, [facility] [place] [address] [id number] [address] [place] [address], [place] [id number] Jul, [facility] [place] [address] [id number] [address] [place] [address], [place] [id number] Jul, [facility] [address] [id number] [address] [place] [address], [place] [address] Jul, [facility] [address] [id number] [address] [place] [address], [place] [address] Jun, [facility] [address] [id number] [address] [place] [address], [place] [address] Jun, [facility] [address] [id number] [address] [place] [address], [place] [address] Jun, [facility] [address] [id number] [address] [place] [address], [place] [address] Jun, [facility] [address] [id number] [address] [place] [address], [place] [address] Jun, [facility] [address] [id number] [address] [place] [address], [place] [address] Jun, [facility] [address] [id number] [address] [place] [address], [place] [address] 07 May, 2013 [facility] [address] [id number] [address] [place] [address], [place] [id number] 07 May, 2013 [facility] [address] [id number] [address] [place] [address], [place] [address] 15 Apr, 2013 [facility] [address] [id number] [address] [place] [address], [place] [address] 15 Apr, 2013 [facility] [address] [id number] [address] [place] [address], [place] [address] 10 Apr, 2013 [facility] [address] [id number] [address] [place] [address], [place] [address] 10 Apr, 2013 [facility] [address] [id number] [address] [place] [address], [place] [address] 08 Apr, 2013 [facility] [address] [id number] [address] [place] [address], [place] [address] 24 Mar, 2013 [facility] [address] [id number] [address] [place] [address], [place] [address] 19 Mar, 2013 [facility] [address] [id number] [address] [place] [address], [place] [address] 12 Mar, 2013 [facility] [address] [id number] [address] [place] [address], [place] [address] 10 Mar, 2013 [facility] [address] [id number] [address] [place] [address], [place] [address] 16 Feb, 2013 [facility] [address] [id number] [address] [place] [address], [place] [address] 06 Feb, 2013 [facility] [address] [id number] [address] [place] [address], [place] [address] Jan, [facility] [address] [id number] [address] [place] [address], [place] [address] Jan, [facility] [address] [id number] [address] [place] [address], [place] [address] Jan, [facility] [address] [id number] [address] [place] [address], [place] [address] Jan, [facility] [address] [id number] [address] [place] [address], [place] [address] Dec, [facility] [address] [id number] [address] [place] [address], [place] [address] Dec, [facility] [address] [id number] [address] [place] [address], [place] [address] Dec, [facility] [address] [id number] [address] [place] [address], [place] [address] Dec, [facility] [address] [id number] [address] [place] [address], [place] [address] November, [facility] [address] [id number] [address] [place] [address], [place] [address] November, [facility] [address] [id number] [address] [place] [address], [place] [address] Oct, [facility] [address] [id number] [address] [place] [address], [place] [address] Sep, [facility] [address] [id number] [address] [place] [address], [place] [address] Sep, [facility] [address] [id number] [address] [place] [address], [place] [address] 14 Aug, 2012 [facility] [address] [id number] [address] [place] [address], [place] [address] Aug, [facility] [address] [id number] [address] [place] [address], [place] [address] Jul, [facility] [address] [id number] [address] [place] [address], [place] [address] Jul, [facility] [address] [id number] [address] [place] [address], [place] [address] Jul, [facility] [address] [id number] [address] [place] [address], [place] [address] Jun, [facility] [address] [id number] [address] [place] [address], [place] [address] Jun, [facility] [address] [id number] [address] [place] [address], [place] [address] Jun, [facility] [address] [id number] [address] [place] [address], [place] [address] Jun, [facility] [address] [id number] [address] [place] [address], [place] [address] May, [facility] [address] [id number] [address] [place] [address], [place] [address] May, [facility] [address] [id number] [address] [place] [address], [place] [address] 19 May, 2012 [facility] [address] [id number] [address] [place] [address], [place] [address] 14 May, 2012 [facility] [place] [address] [id number] [address] [place] [address], [place] [address] 14 May, 2012 [facility] [address] [id number] [address] [place] [address], [place] [address] May, [facility] [address] [id number] [address] [place] [address], [place] [address] 06 May, 2012 [facility] [address] [id number] [address] [place] [address], [place] [address] 15 Apr, 2012 [facility] [address] [id number] [address] [place] [address], [place] [address] 15 Apr, 2012 [facility] [address] [id number] [address] [place] [address], [place] [address] Apr, [facility] [address] [id number] [address] [place] [address], [place] [address] Apr, [facility] [address] [id number] [address] [place] [address], [place] [address] Apr, [facility] [address] [id number] [address] [place] [address], [place] [address] Apr, [facility] [address] [id number] [address] [place] [address], [place] [address] Apr, [facility] [address] [id number] [address] [place] [address], [place] [address] Apr, [facility] [address] [id number] [address] [place] [address], [place] [address] Jan, [facility] [address] [id number] [address] [place] [address], [place] [address] Jan, [facility] [address] [id number] [address] [place] [address], [place] [address] Dec, [facility] [address] [id number] [address] [place] [address], [place] [address] November, [facility] [address] [id number] [address] [place] [address], [place] [address] Oct, [facility] [address] [id number] [address] [place] [address], [place] [address] Oct, [facility] [address] [id number] [address] [place] [address], [place] [address] Oct, [facility] [address] [id number] [address] [place] [address], [place] [address] Oct, [facility] [address] [id number] [address] [place] [address], [place] [address] Sep, [facility] [address] [id number] [address] [place] [address], [place] [address] Sep, [facility] [address] [id number] [address] [place] [id number] 26 Sep, 2011 [facility] [address] [id number] [address] [place] [address], [place] [address] 13 Jun, 2011 [facility] [address] [id number] [address] [place] [address], [place] [address] 13 Jun, 2011 [facility] [address] [id number] [address] [place] [address], [place] [address] 22 May, 2011 [facility] [address] [id number] [address] [place] [address], [place] [address] 14 Jan, 2011 [facility] [address] [id number] [address] [place] [address], [place] [address] 19 Nov, 2010 [facility] [address] [id number] [address] [place] [address], [place] [address] 14 Oct, 2010 [facility] [address] [id number] [address] [place] [address], [place] [address] 16 Sep, 2010 [facility] [address] [id number] [address] [place] [address], [place] [address] 30 May, 2010 [facility] [address] [id number] [address] [place] [address], [place] [address] 19 Jul, 2009 [facility] [address] [id number] [address] [place] [address], [place] [address] 23 Jun, 2009 [facility] [address] [id number] [address] [place] [address], [place] [address] 23 Jun, 2009 [facility] [address] [id number] [address] [place] [address], [place] [address] 15 Jun, 2009 [facility] [address] [id number] [address] [place] [address], [place] [address] 15 Jun, 2009 [facility] [address] [id number] [address] [place] [address], [place] [address] 17 May, 2009 [facility] [address] [id number] [address] [place] [address], [place] [address] 09 May, 2009 [facility] [address] [facility] [id number] [address] [address] Apr, [facility] [address] [facility] [id number] [address] [place] [id number] Apr, [facility] [address] [facility] [id number] [address] [address] Apr, IMMUNIZATIONS No Known Immunizations SOCIAL HISTORY Never Assessed REASON FOR VISIT PLAN OF CARE VITAL SIGNS Height 61 in 2014-05-17 Weight 218.19 lbs 2014-05-17 Temperature 98.3 degrees Fahrenheit 2014-05-17 Heart Rate 74 bpm 2014-05-17 Respiratory Rate 18 2014-05-17 Blood pressure systolic 118 mmHg 2014-05-17 Blood pressure diastolic 76 mmHg 2014-05-17 MEDICATIONS Unknown Medications RESULTS No Results PROCEDURES [...] right 06/1996 Surgical History multiple knee injections ([id number]) Surgical History left knee replacement 06/11 Hospitalization History Knee surgery- x 3 days 06/11
--- OUTSIDE RECORDS SUMMARY | 2019-12-16 20:31 | XMS REPORT ---
Author Author Patti Guzman Doctor Organization [facility] Address Unknown Phone Unavailable Care Team Providers Care Cvir Tech Name Role Phone Migration, Doctor Unavailable Unavailable PROBLEMS Type Condition ICD9-CM Code DPC32-UM Code Onset Dates Condition S tatus SNOMED Code Problem ADD (attention deficit disorder) F90.0 Active 740182240 Problem Drug abuse counseling and surveillance of drug abuser Z71.51 Active 356075552 Problem Insomnia G47.00 Active 528977628 Problem Joint pain M25.50 Active 26293287 Problem Edema, unspecified type R60.9 Active 730506301 Problem Episode of recurrent major d epressive disorder, unspecified depression episode severity F33.9 Active 349231851 Problem Venous insufficiency (chronic) (peripheral) I87.2 Active [id number] Problem Carpal tunnel syndrome on left G56.02 Active 541332418504771 Problem Manic bipolar I disorder in partial remission F31. 73 Active 84287720 Problem Bipolar affective disorder, currently depressed, moderate F31.32 Active 814547493 Problem Social anxiety disorder F40.10 Active 70206953 Problem Other chronic pain G89.29 Active 8 7625395 Problem Stimulant abuse F15.10 Active 4415 71051 Problem Bipolar II disorder F31.81 Active 98745023 Problem ADD (attention deficit disorder) without hyperactivity F98.8 Active 08095332 ALLERGIES No Information ENCOUNTERS Encounter Location Date Diagnosis [facility] [address] [facility] [id number] [address] [place] [address] Mar, [facility] [address] [facility] [id number] [address] [place] [address] Mar, [facility] [address] [facility] [id number] [address] [place] [address] Jan, Bipolar affective disorder, currently depressed, moderate F31.32 [facility] [address] [facility] [id number] [address] [place] [address] Jan, Bipolar affective disorder, currently depressed, moderate F31.32 ; Social anxiety disorder F40.10 and Morbid obesity E66.01 [place] [address] [address] May, Screening for lipid disorder s Z13.220 [place] [address] [address] May, Carpal tunnel syndrome on le ft G56.02 ; Social anxiety disorder F40.10 and Screening for lipid disorders Z13.220 [place] [address] [address] 11 Apr, 2018 Bipolar II disorder F31.81 ; Social anxiety disorder F40.10 ; ADD (attention deficit disorder) without hyperactivity F98.8 and BMI 45.0-49.9, adult Z68.42 [place] [address] [address] 05 Mar, 2018 [place] [address] [address] 17 Feb, 2018 BMI 45.0-49.9, adult Z68.42 ; Carpal tunnel syndrome on left G56.02 and Social anxiety disorder F40.10 [place] [address] [address] 09 Jan, 2018 Bipolar II disorder F31.81 ; ADD (attention deficit disorder) without hyperactivity F98.8 ; Social anxiety disorder F40.10 and Stimulant abuse F15.10 [place] [address] [address] Dec, Episode of recurrent major d epressive disorder, unspecified depression episode severity F33.9 ; Other chronic pain G89.29 ; Radiculopathy, lumbar region M54.16 ; Edema of lower extremity R60.0 and BMI 45.0-49.9, adult Z68.42 [place] [address] [address] Jun, [place] [address] [facility] [id number] [address] [place] [address] Jan, Joint pain M25.50 [facility] [address] [facility] [id number] [address] [place] [address] Jan, Wellness examination Z00.00 ; Pain in right knee M25.561 ; Pain in left knee M25.562 ; Edema, unspecified type R60.9 and Drug abuse counseling and surveillance of drug abuser Z71.51 [facility] [address] [facility] [id number] [address] [place] [address] November, [facility] [address] [facility] [id number] [address] [place] [address] Oct, [facility] [address] [place] [id number] [address] [place] [address] Oct, ADD (attention deficit disor josselin) F90.0 ; Social anxiety disorder F40.10 and Manic bipolar I disorder in partial remission F31.73 [facility] [address] [facility] [id number] [address] [place] [address] Aug, [facility] [address] [facility] [id number] [address] [place] [address] Aug, [facility] [address] [facility] [id number] [address] [place] [address] Aug, [facility] [address] [facility] [id number] [address] [place] [address] Jul, [facility] [address] [facility] [id number] [address] [place] [address] Jul, [facility] [address] [facility] [id number] [address] [place] [address] Jul, [facility] [address] [facility] [id number] [address] [place] [address] Jun, [facility] [address] [place] [id number] [address] [place] [address] Jun, [facility] [address] [facility] [id number] [address] [place] [address] Jun, [facility] [address] [facility] [id number] [address] [place] [address] Jun, [facility] [address] [facility] [id number] [address] [place] [address] May, Joint pain M25.50 ; ADD (att ention deficit disorder) F90.0 ; Edema R60.9 and Insomnia G47.00 [facility] [address] [facility] [id number] [address] [place] [address] May, [facility] [address] [facility] [id number] [address] [place] [address] May, [facility] [address] [facility] [id number] [address] [place] [address] May, [facility] [address] [facility] [id number] [address] [place] [address] May, Left wrist pain M25.532 ; Si nusitis J32.9 and Drug abuse counseling and surveillance of drug abuser Z71.51 [facility] [address] [facility] [id number] [address] [place] [address] Apr, [facility] [address] [facility] [id number] [address] [place] [address] Apr, [facility] [address] [facility] [id number] [address] [place] [address] Apr, [facility] [address] [facility] [id number] [address] [place] [address] Apr, [facility] [address] [facility] [id number] [address] [place] [address] Apr, [facility] [address] [facility] [id number] [address] [place] [address] Apr, [facility] [address] [facility] [id number] [address] [place] [address] Apr, [facility] [address] [id number] [address] [place] [address] Mar, Unspecified venous (peripher al) insufficiency 459.81 ; Bipolar I disorder, most recent episode (or current) manic, moderate 296.42 ; Social phobia 300.23 ; Attention deficit disorder of childhood without mention of hyperactivity 314.00 ; Pain in joint, lower leg 719.46 ; Thrombosis 453.9 and Chronic pain 338.29 [facility] [address] [id number] [address] [place] [address] 18 Mar, 2015 [facility] [address] [id number] [address] [place] [address] Mar, [facility] [address] [id number] [address] [place] [address] Mar, [facility] [address] [id number] [address] [place] [address] 17 Mar, 2015 [facility] [address] [id number] [address] [place] [address] 17 Mar, 2015 [facility] [address] [id number] [address] [place] [address] 11 Mar, 2015 [facility] [address] [id number] [address] [place] [address] 10 Mar, 2015 Manic bipolar I disorder in partial remission 296.45 ; Social phobia 300.23 and Attention deficit disorder of childhood without mention of hyperactivity 314.00 [facility] [address] [id number] [address] [place] [address] Mar, [facility] [address] [id number] [address] [place] [address] Feb, [facility] [address] [id number] [address] [place] [address] Feb, Thrombosis 453.9 ; Unspecifi ed venous (peripheral) insufficiency 459.81 ; Bipolar I disorder, most recent episode (or current) manic, moderate 296.42 ; Social phobia 300.23 ; Attention deficit disorder of childhood without mention of hyperactivity 314.00 ; Pain in joint, lower leg 719.46 and Edema 782.3 [facility] [address] [id number] [address] [place] [address] Feb, [facility] [address] [facility] [id number] [address] [place] [address] Feb, Social phobia 300.23 ; Atten tion deficit disorder of childhood without mention of hyperactivity 314.00 and Bipolar I disorder, most recent episode manic, in partial remission 296.45 [facility] [address] [id number] [address] [place] [address] Jan, [facility] [address] [facility] [id number] [address] [place] [address] Jan, [facility] [address] [facility] [id number] [address] [place] [address] Jan, Unspecified venous (peripher al) insufficiency 459.81 and Thrombophlebitis 451.9 [facility] [address] [facility] [id number] [address] [place] [address] Jan, [facility] [address] [facility] [id number] [address] [place] [address] Dec, Headache 784.0 and Back pain 724.5 [facility] [address] [facility] [id number] [address] [place] [address] Dec, [facility] [address] [facility] [id number] [address] [place] [address] Dec, Bipolar I disorder, most rec ent episode (or current) manic, moderate 296.42 ; Attention deficit disorder of childhood without mention of hyperactivity 314.00 and Social phobia 300.23 [facility] [address] [id number] [address] [place] [address] November, [facility] [address] [facility] [id number] [address] [place] [address] November, [facility] [address] [id number] [address] [place] [address], [place] [address] Oct, [facility] [address] [id number] [address] [place] [address], [place] [address] Oct, [facility] [address] [id number] [address] [place] [address], [place] [address] Sep, [facility] [address] [id number] [address] [place] [address], [place] [address] Sep, [facility] [address] [id number] [address] [place] [address], [place] [address] Aug, [facility] [address] [id number] [address] [place] [address], [place] [address] Aug, [facility] [address] [id number] [address] [place] [address], [place] [address] Aug, [facility] [address] [id number] [address] [place] [address], [place] [address] Aug, [facility] [address] [id number] [address] [place] [address], [place] [address] Aug, [facility] [address] [id number] [address] [place] [address], [place] [address] Aug, [facility] [address] [id number] [address] [place] [address], [place] [address] Aug, [facility] [address] [id number] [address] [place] [address], [place] [address] Jul, [facility] [address] [id number] [address] [place] [address], [place] [address] Jul, [facility] [address] [id number] [address] [place] [address], [place] [address] Jun, [facility] [address] [id number] [address] [place] [address], [place] [address] Jun, [facility] [address] [id number] [address] [place] [address], [place] [address] May, [facility] [address] [id number] [address] [place] [address], [place] [address] May, [facility] [address] [id number] [address] [place] [address], [place] [address] May, [facility] [address] [id number] [address] [place] [address], [place] [address] May, [facility] [address] [id number] [address] [place] [address], [place] [address] May, [facility] [address] [id number] [address] [place] [address], [place] [address] May, [facility] [address] [id number] [address] [place] [address], [place] [address] Apr, [facility] [address] [id number] [address] [place] [address], [place] [address] Apr, [facility] [address] [id number] [address] [place] [address], [place] [address] Apr, [facility] [address] [id number] [address] [place] [address], [place] [address] Apr, [facility] [address] [id number] [address] [place] [address], [place] [address] 22 Mar, 2014 [facility] [address] [id number] [address] [place] [address], [place] [address] 22 Mar, 2014 [facility] [address] [id number] [address] [place] [address], [place] [address] 19 Sep2013 [facility] [address] [id number] [address] [place] [address], [place] [address] 16 Mar, 2014 [facility] [address] [id number] [address] [place] [address], [place] [address] 16 Mar, 2013 [facility] [address] [id number] [address] [place] [address], [place] [address] 15 Mar, 2013 [facility] [address] [id number] [facility] [place] [address] 11 Mar, 2013 [facility] [address] [id number] [address] [place] [address], [place] [address] 11 Mar, 2013 [facility] [address] [id number] [address] [place] [address], [place] [address] 11 Mar, 2013 [facility] [address] [id number] [address] [place] [address], [place] [address] 11 Mar, 2013 [facility] [address] [id number] [address] [place] [address], [place] [address] 10 Mar, 2013 [facility] [address] [id number] [address] [place] [address], [place] [address] 09 Mar, 2013 [facility] [address] [id number] [address] [place] [address], [place] [address] Mar, 2013 [facility] [address] [id number] [address] [place] [address], [place] [address] Mar, 2013 [facility] [address] [id number] [address] [place] [address], [place] [address] Mar, [facility] [address] [id number] [address] [place] [address], [place] [address] Feb, [facility] [address] [id number] [address] [place] [address], [place] [address] Feb, [facility] [address] [id number] [address] [place] [address], [place] [address] Feb, [facility] [address] [id number] [address] [place] [address], [place] [address] Feb, [facility] [address] [id number] [address] [place] [address], [place] [address] Feb, [facility] [address] [id number] [address] [place] [address], [place] [address] Feb, [facility] [address] [id number] [address] [place] [address], [place] [address] Feb, 2013 [facility] [address] [id number] [address] [place] [address], [place] [address] Feb, 2013 [facility] [address] [id number] [address] [place] [address], [place] [address] Feb, [facility] [address] [id number] [address] [place] [address], [place] [address] Feb, 2013 [facility] [address] [id number] [address] [place] [address], [place] [address] Feb, [facility] [address] [id number] [address] [place] [address], [place] [address] Feb, [facility] [address] [id number] [address] [place] [address], [place] [address] Feb, [facility] [address] [id number] [address] [place] [address], [place] [address] Feb, [facility] [address] [id number] [address] [place] [address], [place] [address] Jan, [facility] [address] [id number] [address] [place] [address], [place] [address] Jan, [facility] [address] [id number] [address] [place] [address], [place] [address] Jan, [facility] [address] [id number] [address] [place] [address], [place] [address] Jan, [facility] [address] [id number] [address] [place] [address], [place] [address] Jan, [facility] [address] [id number] [address] [place] [address], [place] [address] Jan, [facility] [address] [id number] [address] [place] [address], [place] [address] Jan, [facility] [address] [id number] [address] [place] [address], [place] [address] Dec, [facility] [address] [id number] [facility] [place] [address] Dec, [facility] [address] [id number] [facility] [place] [address] Dec, [facility] [address] [id number] [facility] [place] [address] Dec, [facility] [address] [id number] [facility] [place] [address] Dec, [facility] [address] [id number] [facility] [place] [address] Dec, [facility] [address] [id number] [address] [place] [address], [place] [address] Dec, [facility] [address] [id number] [address] [place] [address], [place] [address] Dec, [facility] [address] [id number] [address] [place] [address], [place] [address] Dec, [facility] [address] [id number] [address] [place] [address], [place] [address] November, [facility] [address] [id number] [address] [place] [address], [place] [address] November, [facility] [address] [id number] [address] [place] [address], [place] [address] November, [facility] [address] [id number] [address] [place] [address], [place] [address] November, [facility] [address] [id number] [address] [place] [address], [place] [address] November, [facility] [address] [id number] [address] [place] [address], [place] [address] November, [facility] [address] [id number] [address] [place] [address], [place] [address] November, [facility] [address] [id number] [address] [place] [address], [place] [address] November, [facility] [address] [id number] [facility] [place] [address] November, [facility] [address] [id number] [address] [place] [address], [place] [address] November, [facility] [address] [id number] [address] [place] [address], [place] [address] November, [facility] [address] [id number] [address] [place] [address], [place] [address] November, [facility] [address] [id number] [address] [place] [address], [place] [address] November, [facility] [address] [id number] [address] [place] [address], [place] [address] November, [facility] [address] [id number] [address] [place] [address], [place] [address] Oct, [facility] [address] [id number] [address] [place] [address], [place] [address] Oct, [facility] [address] [id number] [address] [place] [address], [place] [address] Oct, [facility] [address] [id number] [address] [place] [address], [place] [address] Oct, [facility] [address] [id number] [address] [place] [address], [place] [address] Oct, [facility] [address] [id number] [address] [place] [address], [place] [address] Oct, [facility] [address] [id number] [address] [place] [address], [place] [address] Sep, [facility] [address] [id number] [address] [place] [address], [place] [address] Sep, [facility] [address] [id number] [address] [place] [address], [place] [address] Sep, [facility] [address] [id number] [address] [place] [address], [place] [address] Sep, [facility] [address] [id number] [address] [place] [address], [place] [address] Aug, [facility] [address] [id number] [address] [place] [address], [place] [address] Aug, [facility] [address] [id number] [address] [place] [address], [place] [address] Aug, [facility] [address] [id number] [address] [place] [address], [place] [address] Aug, [facility] [address] [id number] [address] [place] [address], [place] [address] Jul, [facility] [address] [id number] [address] [place] [address], [place] [address] Jul, [facility] [address] [id number] [address] [place] [address], [place] [address] Jul, [facility] [address] [id number] [address] [place] [address], [place] [address] Jul, [facility] [address] [id number] [address] [place] [address], [place] [address] Jul, [facility] [address] [id number] [address] [place] [address], [place] [address] Jul, [facility] [address] [id number] [address] [place] [address], [place] [address] Jul, [facility] [address] [id number] [address] [place] [address], [place] [address] Jun, [facility] [address] [id number] [address] [place] [address], [place] [address] Jun, [facility] [address] [id number] [address] [place] [address], [place] [address] Jun, [facility] [address] [id number] [address] [place] [address], [place] [address] Jun, [facility] [address] [id number] [address] [place] [address], [place] [address] Jun, [facility] [address] [id number] [address] [place] [address], [place] [address] Jun, [facility] [address] [id number] [address] [place] [address], [place] [address] May, [facility] [address] [id number] [address] [place] [address], [place] [address] May, [facility] [address] [id number] [address] [place] [address], [place] [address] 15 Apr, 2013 [facility] [address] [id number] [address] [place] [address], [place] [address] 15 Apr, 2013 [facility] [address] [id number] [address] [place] [address], [place] [address] 10 Apr, 2013 [facility] [address] [id number] [address] [place] [id number] 10 Apr, 2013 [facility] [address] [id number] [address] [place] [address], [place] [address] 08 Apr, 2013 [facility] [address] [id number] [address] [place] [id number] 24 Mar, 2013 [facility] [address] [id number] [address] [place] [id number] 19 Mar, 2013 [facility] [address] [id number] [address] [place] [id number] 12 Mar, 2013 [facility] [address] [id number] [address] [place] [address], [place] [address] 10 Mar, 2013 [facility] [address] [id number] [address] [place] [id number] 16 Feb, 2013 [facility] [address] [id number] [address] [place] [id number] 06 Feb, 2013 [facility] [address] [id number] [address] [place] [id number] Jan, [facility] [address] [id number] [address] [place] [address], [place] [address] Jan, [facility] [address] [id number] [address] [place] [address], [place] [address] Jan, [facility] [address] [id number] [address] [place] [address], [place] [address] Jan, [facility] [address] [id number] [address] [place] [address], [place] [address] Dec, [facility] [address] [id number] [address] [place] [address], [place] [address] Dec, [facility] [address] [id number] [address] [place] [address], [place] [address] Dec, [facility] [address] [id number] [address] [place] [address], [place] [address] Dec, [facility] [address] [id number] [address] [place] [address], [place] [address] November, [facility] [address] [id number] [address] [place] [address], [place] [address] November, [facility] [address] [id number] [address] [place] [address], [place] [address] Oct, [facility] [address] [id number] [address] [place] [address], [place] [address] Sep, [facility] [address] [id number] [address] [place] [address], [place] [address] Sep, [facility] [address] [id number] [address] [place] [address], [place] [address] 14 Aug, 2012 [facility] [address] [id number] [address] [place] [address], [place] [address] Aug, [facility] [address] [id number] [address] [place] [address], [place] [address] Jul, [facility] [address] [id number] [address] [place] [address], [place] [address] Jul, [facility] [address] [id number] [address] [place] [address], [place] [address] Jul, [facility] [address] [id number] [address] [place] [address], [place] [address] Jun, [facility] [address] [id number] [address] [place] [address], [place] [address] Jun, [facility] [address] [id number] [address] [place] [address], [place] [address] Jun, [facility] [address] [id number] [address] [place] [address], [place] [address] Jun, [facility] [address] [id number] [address] [place] [address], [place] [address] May, [facility] [address] [id number] [address] [place] [address], [place] [address] May, [facility] [address] [id number] [address] [place] [address], [place] [address] May, [facility] [address] [id number] [address] [place] [address], [place] [address] May, [facility] [address] [id number] [address] [place] [address], [place] [address] May, [facility] [address] [id number] [address] [place] [address], [place] [address] May, [facility] [address] [id number] [address] [place] [address], [place] [address] May, [facility] [address] [id number] [address] [place] [address], [place] [address] 15 Apr, 2012 [facility] [address] [id number] [address] [place] [address], [place] [address] 15 Apr, 2012 [facility] [address] [id number] [address] [place] [address], [place] [address] 15 Apr, 2012 [facility] [address] [id number] [address] [place] [address], [place] [address] 15 Apr, 2012 [facility] [address] [id number] [address] [place] [address], [place] [address] Apr, [facility] [address] [id number] [address] [place] [address], [place] [address] Apr, [facility] [address] [id number] [address] [place] [address], [place] [address] Apr, [facility] [address] [id number] [address] [place] [address], [place] [address] Apr, [facility] [address] [id number] [address] [place] [address], [place] [address] Jan, [facility] [address] [id number] [address] [place] [address], [place] [address] Jan, [facility] [address] [id number] [address] [place] [address], [place] [address] Dec, [facility] [address] [id number] [address] [place] [address], [place] [address] November, [facility] [address] [id number] [address] [place] [address], [place] [address] Oct, [facility] [address] [id number] [address] [place] [address], [place] [address] Oct, [facility] [address] [id number] [address] [place] [address], [place] [address] Oct, [facility] [address] [id number] [address] [place] [address], [place] [address] Oct, [facility] [address] [id number] [address] [place] [address], [place] [address] Sep, [facility] [address] [id number] [address] [place] [address], [place] [address] Sep, [facility] [address] [id number] [address] [place] [address], [place] [address] 26 Sep, 2011 [facility] [address] [id number] [address] [place] [address], [place] [address] 13 Jun, 2011 [facility] [address] [id number] [address] [place] [address], [place] [address] 13 Jun, 2011 [facility] [address] [id number] [address] [place] [address], [place] [address] 22 May, 2011 [facility] [address] [id number] [address] [place] [address], [place] [address] 14 Jan, 2011 [facility] [address] [id number] [address] [place] [address], [place] [address] 19 Nov, 2010 [facility] [address] [id number] [address] [place] [address], [place] [address] 14 Oct, 2010 [facility] [address] [id number] [address] [place] [address], [place] [address] 16 Sep, 2010 [facility] [address] [id number] [address] [place] [address], [place] [address] 30 May, 2010 [facility] [address] [id number] [address] [place] [address], [place] [address] 19 Jul, 2009 [facility] [address] [id number] [address] [place] [address], [place] [address] 23 Jun, 2009 [facility] [address] [id number] [address] [place] [address], [place] [address] 23 Jun, 2009 [facility] [address] [id number] [address] [place] [address], [place] [address] 15 Jun, 2009 [facility] [address] [id number] [address] [place] [address], [place] [address] 15 Jun, 2009 [facility] [address] [id number] [address] [place] [address], [place] [address] 17 May, 2009 [facility] [address] [id number] [address] [place] [address], [place] [address] May, [facility] [address] [facility] [id number] [address] [place] [address] Apr, [facility] [address] [facility] [id number] [address] [place] [id number] Apr, [facility] [address] [facility] [id number] [address] [place] [id number] Apr, IMMUNIZATIONS No Known Immunizations SOCIAL HISTORY Never Assessed REASON FOR VISIT PLAN OF CARE VITAL SIGNS Weight 210.25 lbs 2014-03-01 Temperature 99.4 degrees Fahrenheit 2014-03-01 Heart Rate 88 bpm 2014-03-01 Respiratory Rate 28 2014-03-01 Blood pressure systolic 124 mmHg 2014-03-01 Blood pressure diastolic 78 mmHg 2014-03-01 MEDICATIONS Unknown Medications RESULTS No Results PROCEDURES Procedure Date Ordered Result Body Site DRAIN/INJECT, JOINT/BURSA Mar 01, 2014 INSTRUCTIONS MEDICATIONS ADMINISTERED No Known [...] right 06/1996 Surgical History multiple knee injections ([id number]) Surgical History left knee replacement 06/11 Hospitalization History Knee surgery- x 3 days 06/11
--- OUTSIDE RECORDS SUMMARY | 2019-12-16 20:31 | XMS REPORT ---
Author Author Patti Guzman Doctor Organization [facility] Address Unknown Phone Unavailable Care Team Providers Care Sephora Operations Consultant Name Role Phone Migration, Doctor Unavailable Unavailable PROBLEMS Type Condition ICD9-CM Code GLG60-LE Code Onset Dates Condition S tatus SNOMED Code Problem ADD (attention deficit disorder) F90.0 Active 684033546 Problem Drug abuse counseling and surveillance of drug abuser Z71.51 Active 860146374 Problem Insomnia G47.00 Active 158410671 Problem Joint pain M25.50 Active 51131822 Problem Edema, unspecified type R60.9 Active 634336526 Problem Episode of recurrent major d epressive disorder, unspecified depression episode severity F33.9 Active 110681896 Problem Venous insufficiency (chronic) (peripheral) I87.2 Active [id number] Problem Carpal tunnel syndrome on left G56.02 Active 403361873978451 Problem Manic bipolar I disorder in partial remission F31. 73 Active 40046705 Problem Bipolar affective disorder, currently depressed, moderate F31.32 Active 747857297 Problem Social anxiety disorder F40.10 Active 52613730 Problem Other chronic pain G89.29 Active 8 9956119 Problem Stimulant abuse F15.10 Active 4415 99349 Problem Bipolar II disorder F31.81 Active 11668901 Problem ADD (attention deficit disorder) without hyperactivity F98.8 Active 70260595 ALLERGIES No Information ENCOUNTERS Encounter Location Date Diagnosis [facility] [address] [id number] [address] [place] [address] Jan, Bipolar affective disorder, currently depressed, moderate F31.32 [facility] [address] [id number] [address] [place] [address] Jan, Bipolar affective disorder, currently depressed, moderate F31.32 ; Social anxiety disorder F40.10 and Morbid obesity E66.01 [facility] [address] [facility] [id number] [address] [place] [address] May, Screening for lipid disorder s Z13.220 [facility] [address] [facility] [id number] [address] [place] [address] May, Carpal tunnel syndrome on le ft G56.02 ; Social anxiety disorder F40.10 and Screening for lipid disorders Z13.220 [facility] [address] [facility] [id number] [address] [place] [address] 11 Apr, 2018 Bipolar II disorder F31.81 ; Social anxiety disorder F40.10 ; ADD (attention deficit disorder) without hyperactivity F98.8 and BMI 45.0-49.9, adult Z68.42 [place] [address] [facility] [id number] [address] [place] [address] 05 Mar, 2018 [place] [address] [facility] [id number] [address] [place] [address] 17 Feb, 2018 BMI 45.0-49.9, adult Z68.42 ; Carpal tunnel syndrome on left G56.02 and Social anxiety disorder F40.10 [place] [address] [id number] [address] [place] [address] 09 Jan, 2018 Bipolar II disorder F31.81 ; ADD (attention deficit disorder) without hyperactivity F98.8 ; Social anxiety disorder F40.10 and Stimulant abuse F15.10 [place] [address] [id number] [address] [place] [address] 22 Dec, 2017 Episode of recurrent major d epressive disorder, unspecified depression episode severity F33.9 ; Other chronic pain G89.29 ; Radiculopathy, lumbar region M54.16 ; Edema of lower extremity R60.0 and BMI 45.0-49.9, adult Z68.42 [place] [id number] [address] [place] [address] Jun, [place] [address] [id number] [address] [place] [address] Jan, Joint pain M25.50 [place] [id number] [place] [address] Jan, Wellness examination Z00.00 ; Pain in right knee M25.561 ; Pain in left knee M25.562 ; Edema, unspecified type R60.9 and Drug abuse counseling and surveillance of drug abuser Z71.51 [facility] [address] [facility] [id number] [address] [place] [address] November, [facility] [address] [facility] [id number] [address] [place] [address] Oct, [facility] [address] [facility] [id number] [address] [place] [address] Oct, ADD (attention deficit disor josselin) F90.0 ; Social anxiety disorder F40.10 and Manic bipolar I disorder in partial remission F31.73 [facility] [address] [facility] [id number] [address] [place] [address] Aug, [facility] [id number] [place] [address] Aug, [facility] [address] [facility] [id number] [address] [place] [address] Aug, [facility] [id number] [place] [address] Jul, [facility] [address] [facility] [id number] [address] [place] [address] Jul, [facility] [address] [facility] [id number] [address] [place] [address] Jul, [facility] [address] [facility] [id number] [address] [place] [address] Jun, [facility] [address] [facility] [id number] [address] [place] [address] Jun, [facility] [address] [facility] [id number] [address] [place] [address] Jun, [facility] [address] [id number] [address] [place] [address] Jun, [facility] [address] [facility] [id number] [address] [place] [address] May, Joint pain M25.50 ; ADD (att ention deficit disorder) F90.0 ; Edema R60.9 and Insomnia G47.00 [facility] [address] [facility] [id number] [address] [place] [address] May, [facility] [address] [facility] [id number] [address] [place] [address] May, [facility] [address] [facility] [id number] [address] [place] [address] May, [facility] [id number] [address] [place] [address] May, Left wrist pain M25.532 ; Si nusitis J32.9 and Drug abuse counseling and surveillance of drug abuser Z71.51 [facility] [address] [facility] [id number] [address] [place] [address] Apr, [facility] [id number] [address] [place] [address] Apr, [facility] [id number] [address] [place] [address] Apr, [facility] [id number] [address] [place] [address] Apr, [facility] [address] [facility] [id number] [address] [place] [address] Apr, [facility] [address] [facility] [id number] [address] [place] [address] Apr, [facility] [address] [id number] [address] [place] [address] Apr, [facility] [address] [facility] [id number] [address] [place] [address] Mar, Unspecified venous (peripher al) insufficiency 459.81 ; Bipolar I disorder, most recent episode (or current) manic, moderate 296.42 ; Social phobia 300.23 ; Attention deficit disorder of childhood without mention of hyperactivity 314.00 ; Pain in joint, lower leg 719.46 ; Thrombosis 453.9 and Chronic pain 338.29 [facility] [address] [id number] [address] [place] [address] 18 Mar, 2015 [facility] [address] [id number] [address] [place] [address] Mar, [facility] [address] [facility] [id number] [address] [place] [address] Mar, [facility] [address] [facility] [id number] [address] [place] [address] Mar, [facility] [address] [facility] [id number] [address] [place] [address] Mar, [facility] [address] [facility] [id number] [address] [place] [address] Mar, [facility] [address] [facility] [id number] [address] [place] [address] 10 Mar, 2015 Manic bipolar I disorder in partial remission 296.45 ; Social phobia 300.23 and Attention deficit disorder of childhood without mention of hyperactivity 314.00 [facility] [address] [facility] [id number] [address] [place] [address] Mar, [facility] [address] [facility] [id number] [address] [place] [address] Feb, [facility] [address] [facility] [id number] [address] [place] [address] Feb, Thrombosis 453.9 ; Unspecifi ed venous (peripheral) insufficiency 459.81 ; Bipolar I disorder, most recent episode (or current) manic, moderate 296.42 ; Social phobia 300.23 ; Attention deficit disorder of childhood without mention of hyperactivity 314.00 ; Pain in joint, lower leg 719.46 and Edema 782.3 [facility] [address] [facility] [id number] [address] [place] [address] Feb, [facility] [address] [facility] [id number] [address] [place] [address] Feb, Social phobia 300.23 ; Atten tion deficit disorder of childhood without mention of hyperactivity 314.00 and Bipolar I disorder, most recent episode manic, in partial remission 296.45 [facility] [address] [facility] [id number] [address] [place] [address] Jan, [facility] [address] [facility] [id number] [address] [place] [address] Jan, [facility] [address] [facility] [id number] [address] [place] [address] Jan, Unspecified venous (peripher al) insufficiency 459.81 and Thrombophlebitis 451.9 [facility] [address] [facility] [id number] [address] [place] [address] Jan, [facility] [address] [facility] [id number] [address] [place] [address] Dec, Headache 784.0 and Back pain 724.5 [facility] [address] [facility] [id number] [address] [place] [address] Dec, [facility] [address] [facility] [id number] [address] [place] [address] Dec, Bipolar I disorder, most rec ent episode (or current) manic, moderate 296.42 ; Attention deficit disorder of childhood without mention of hyperactivity 314.00 and Social phobia 300.23 [facility] [address] [facility] [id number] [address] [place] [address] November, [facility] [address] [facility] [id number] [address] [place] [address] November, [facility] [address] [facility] [id number] [address] [place] [address] Oct, [facility] [address] [facility] [id number] [address] [place] [address] Oct, [facility] [address] [id number] [address] [place] [address], [place] [address] Sep, [facility] [address] [id number] [address] [place] [address], [place] [address] Sep, [facility] [address] [id number] [address] [place] [address], [place] [address] Aug, [facility] [address] [id number] [address] [place] [address], [place] [address] Aug, 2014 [facility] [address] [id number] [address] [place] [address], [place] [address] Aug, [facility] [address] [id number] [address] [place] [address], [place] [address] Aug, [facility] [address] [id number] [address] [place] [address], [place] [address] Aug, [facility] [address] [id number] [address] [place] [address], [place] [address] Aug, [facility] [address] [id number] [address] [place] [address], [place] [address] Aug, [facility] [address] [id number] [address] [place] [address], [place] [address] Jul, [facility] [address] [id number] [address] [place] [address], [place] [address] Jul, [facility] [address] [id number] [address] [place] [address], [place] [address] Jun, [facility] [address] [id number] [address] [place] [address], [place] [address] Jun, [facility] [address] [id number] [address] [place] [address], [place] [address] May, [facility] [address] [id number] [address] [place] [address], [place] [address] May, [facility] [address] [id number] [address] [place] [address], [place] [address] May, [facility] [address] [id number] [address] [place] [address], [place] [address] May, [facility] [address] [id number] [address] [place] [address], [place] [address] May, [facility] [address] [id number] [address] [place] [address], [place] [address] May, [facility] [address] [id number] [address] [place] [address], [place] [address] Apr, [facility] [address] [id number] [address] [place] [address], [place] [address] Apr, [facility] [address] [id number] [address] [place] [address], [place] [address] Apr, [facility] [address] [id number] [address] [place] [address], [place] [address] Apr, [facility] [address] [id number] [address] [place] [address], [place] [address] 22 Mar, 2014 [facility] [address] [id number] [address] [place] [address], [place] [address] 22 Mar, 2014 [facility] [address] [id number] [address] [place] [address], [place] [address] 19 Mar, 2014 [facility] [address] [id number] [address] [place] [address], [place] [address] 16 Sep, 2013 [facility] [address] [id number] [address] [place] [address], [place] [address] 16 Sep, 2013 [facility] [address] [id number] [address] [place] [address], [place] [address] 15 Sep, 2013 [facility] [address] [id number] [address] [place] [address], [place] [address] 11 Mar, 2013 [facility] [address] [id number] [address] [place] [address], [place] [address] Mar, 2013 [facility] [address] [id number] [facility] [place] [address] 11 Mar, 2013 [facility] [address] [id number] [address] [place] [address], [place] [address] Mar, 2013 [facility] [address] [id number] [address] [place] [address], [place] [address] Mar, 2013 [facility] [address] [id number] [address] [place] [address], [place] [address] Mar, 2013 [facility] [address] [id number] [address] [place] [address], [place] [address] Mar, 2013 [facility] [address] [id number] [address] [place] [address], [place] [address] Mar, 2013 [facility] [address] [id number] [address] [place] [address], [place] [address] Mar, 2013 [facility] [address] [id number] [address] [place] [address], [place] [address] Feb, [facility] [address] [id number] [address] [place] [address], [place] [address] Feb, [facility] [address] [id number] [address] [place] [address], [place] [address] Feb, [facility] [address] [id number] [address] [place] [address], [place] [address] Feb, [facility] [address] [id number] [address] [place] [address], [place] [address] Feb, [facility] [address] [id number] [address] [place] [address], [place] [address] Feb, [facility] [address] [id number] [address] [place] [address], [place] [address] Feb, [facility] [address] [id number] [address] [place] [address], [place] [address] Feb, [facility] [address] [id number] [address] [place] [address], [place] [address] Feb, [facility] [address] [id number] [address] [place] [address], [place] [address] Feb, [facility] [address] [id number] [address] [place] [address], [place] [address] Feb, [facility] [address] [id number] [address] [place] [address], [place] [address] Feb, [facility] [address] [id number] [address] [place] [address], [place] [address] Feb, [facility] [address] [id number] [address] [place] [address], [place] [address] Feb, [facility] [address] [id number] [address] [place] [address], [place] [address] Jan, [facility] [address] [id number] [address] [place] [address], [place] [address] Jan, [facility] [address] [id number] [address] [place] [address], [place] [address] Jan, [facility] [address] [id number] [address] [place] [address], [place] [address] Jan, [facility] [address] [id number] [address] [place] [address], [place] [address] Jan, [facility] [address] [id number] [address] [place] [address], [place] [address] Jan, [facility] [address] [id number] [address] [place] [address], [place] [address] Jan, [facility] [address] [id number] [address] [place] [address], [place] [address] Dec, [facility] [address] [id number] [address] [place] [address], [place] [address] Dec, [facility] [address] [id number] [address] [place] [address], [place] [address] Dec, [facility] [address] [id number] [facility] [place] [address] Dec, [facility] [address] [id number] [facility] [place] [address] Dec, [facility] [address] [id number] [facility] [place] [address] Dec, [facility] [address] [id number] [facility] [place] [address] Dec, [facility] [address] [id number] [facility] [place] [address] Dec, [facility] [address] [id number] [address] [place] [address], [place] [address] Dec, [facility] [address] [id number] [address] [place] [address], [place] [address] November, [facility] [address] [id number] [address] [place] [address], [place] [address] November, [facility] [address] [id number] [address] [place] [address], [place] [address] November, [facility] [address] [id number] [address] [place] [address], [place] [address] November, [facility] [address] [id number] [address] [place] [address], [place] [address] November, [facility] [address] [id number] [address] [place] [address], [place] [address] November, [facility] [address] [id number] [address] [place] [address], [place] [address] November, [facility] [address] [id number] [address] [place] [address], [place] [address] November, [facility] [address] [id number] [address] [place] [address], [place] [address] November, [facility] [address] [id number] [address] [place] [address] [address] November, [facility] [address] [id number] [facility] [place] [address] November, [facility] [address] [id number] [address] [place] [address], [place] [address] November, [facility] [address] [id number] [address] [place] [address], [place] [address] November, [facility] [address] [id number] [address] [place] [address], [place] [address] November, [facility] [address] [id number] [address] [place] [address], [place] [address] Oct, [facility] [address] [id number] [address] [place] [address], [place] [address] Oct, [facility] [address] [id number] [address] [place] [address], [place] [address] Oct, [facility] [address] [id number] [address] [place] [address], [place] [address] Oct, [facility] [address] [id number] [address] [place] [address], [place] [address] Oct, [facility] [address] [id number] [address] [place] [address], [place] [address] Oct, [facility] [address] [id number] [address] [place] [address], [place] [address] Sep, [facility] [address] [id number] [address] [place] [address], [place] [address] Sep, [facility] [address] [id number] [address] [place] [address], [place] [address] Sep, [facility] [address] [id number] [address] [place] [address], [place] [address] Sep, [facility] [address] [id number] [address] [place] [address], [place] [address] Aug, [facility] [address] [id number] [address] [place] [address], [place] [address] Aug, [facility] [address] [id number] [address] [place] [address], [place] [address] Aug, [facility] [address] [id number] [address] [place] [address], [place] [address] Aug, [facility] [address] [id number] [address] [place] [address], [place] [address] Jul, [facility] [address] [id number] [address] [place] [address], [place] [address] Jul, [facility] [address] [id number] [address] [place] [address], [place] [address] Jul, [facility] [address] [id number] [address] [place] [address], [place] [address] Jul, [facility] [address] [id number] [address] [place] [address], [place] [address] Jul, [facility] [address] [id number] [address] [place] [address], [place] [address] Jul, [facility] [address] [id number] [address] [place] [address], [place] [address] Jul, [facility] [address] [id number] [address] [place] [address], [place] [address] Jun, [facility] [address] [id number] [address] [place] [address], [place] [address] 27 Jun, 2013 [facility] [address] [id number] [address] [place] [address], [place] [address] 17 Jun, 2013 [facility] [address] [id number] [address] [place] [address], [place] [id number] 17 Jun, 2013 [facility] [address] [id number] [address] [place] [address], [place] [address] 13 Jun, 2013 [facility] [address] [id number] [address] [place] [address], [place] [address] Jun, [facility] [address] [id number] [address] [place] [address], [place] [address] 07 May, 2013 [facility] [address] [id number] [address] [place] [address], [place] [address] 07 May, 2013 [facility] [address] [id number] [address] [place] [address], [place] [address] 15 Apr, 2013 [facility] [address] [id number] [address] [place] [address], [place] [id number] 15 Apr, 2013 [facility] [address] [id number] [address] [place] [address], [place] [address] Apr, [facility] [address] [id number] [address] [place] [address], [place] [address] 10 Apr, 2013 [facility] [address] [id number] [address] [place] [address], [place] [address] 08 Apr, 2013 [facility] [address] [id number] [address] [place] [address], [place] [address] 24 Mar, 2013 [facility] [address] [id number] [address] [place] [address], [place] [address] 19 Mar, 2013 [facility] [address] [id number] [address] [place] [id number] 12 Mar, 2013 [facility] [address] [id number] [address] [place] [address], [place] [address] 10 Mar, 2013 [facility] [address] [id number] [address] [place] [id number] 16 Feb, 2013 [facility] [address] [id number] [address] [place] [address], [place] [address] Feb, [facility] [address] [id number] [address] [place] [address], [place] [address] 18 Jan, 2013 [facility] [address] [id number] [address] [place] [id number] Jan, [facility] [address] [id number] [address] [place] [id number] Jan, [facility] [address] [id number] [address] [place] [address], [place] [address] Jan, [facility] [address] [id number] [address] [place] [address], [place] [address] Dec, [facility] [address] [id number] [address] [place] [address], [place] [address] Dec, [facility] [address] [id number] [address] [place] [address], [place] [address] Dec, [facility] [address] [id number] [address] [place] [address], [place] [address] Dec, [facility] [address] [id number] [address] [place] [address], [place] [address] November, [facility] [address] [id number] [address] [place] [address], [place] [address] November, [facility] [address] [id number] [address] [place] [address], [place] [address] Oct, [facility] [address] [id number] [address] [place] [address], [place] [address] Sep, [facility] [address] [id number] [address] [place] [address], [place] [address] Sep, [facility] [address] [id number] [address] [place] [address], [place] [address] 14 Aug, 2012 [facility] [address] [id number] [address] [place] [address], [place] [address] Aug, [facility] [address] [id number] [address] [place] [address], [place] [address] Jul, [facility] [address] [id number] [address] [place] [address], [place] [address] Jul, [facility] [address] [id number] [address] [place] [address], [place] [address] Jul, [facility] [address] [id number] [address] [place] [address], [place] [address] Jun, [facility] [address] [id number] [address] [place] [address], [place] [address] Jun, [facility] [address] [id number] [address] [place] [address], [place] [address] 15 Jun, 2012 [facility] [address] [id number] [address] [place] [address], [place] [address] 15 Jun, 2012 [facility] [address] [id number] [address] [place] [address], [place] [address] May, [facility] [address] [id number] [address] [place] [address], [place] [address] May, [facility] [address] [id number] [address] [place] [address], [place] [address] May, [facility] [address] [id number] [address] [place] [address], [place] [address] May, [facility] [address] [id number] [address] [place] [address], [place] [address] 14 May, 2012 [facility] [address] [id number] [address] [place] [address], [place] [address] May, [facility] [address] [id number] [address] [place] [address], [place] [address] May, [facility] [address] [id number] [address] [place] [address], [place] [address] 15 Apr, 2012 [facility] [address] [id number] [address] [place] [address], [place] [address] 15 Apr, 2012 [facility] [address] [id number] [address] [place] [address], [place] [address] 15 Apr, 2012 [facility] [address] [id number] [address] [place] [address], [place] [address] 15 Apr, 2012 [facility] [address] [id number] [address] [place] [address], [place] [address] Apr, [facility] [address] [id number] [address] [place] [address], [place] [address] Apr, [facility] [address] [id number] [address] [place] [address], [place] [address] Apr, [facility] [address] [id number] [address] [place] [address], [place] [address] Apr, [facility] [address] [id number] [address] [place] [address], [place] [address] Jan, [facility] [address] [id number] [address] [place] [address], [place] [address] Jan, [facility] [address] [id number] [address] [place] [address], [place] [address] Dec, [facility] [address] [id number] [address] [place] [address], [place] [address] November, [facility] [address] [id number] [address] [place] [address], [place] [address] Oct, [facility] [address] [id number] [address] [place] [address], [place] [address] Oct, [facility] [address] [id number] [address] [place] [address], [place] [address] Oct, [facility] [address] [id number] [address] [place] [address], [place] [address] Oct, [facility] [address] [id number] [address] [place] [address], [place] [address] Sep, [facility] [address] [id number] [address] [place] [address], [place] [address] Sep, [facility] [address] [id number] [address] [place] [address], [place] [address] Sep, [facility] [address] [id number] [address] [place] [address], [place] [address] Jun, [facility] [address] [id number] [address] [place] [address], [place] [address] 13 Jun, 2011 [facility] [address] [id number] [address] [place] [address], [place] [address] 22 May, 2011 [facility] [address] [id number] [address] [place] [address], [place] [address] 14 Jan, 2011 [facility] [address] [id number] [address] [place] [address], [place] [address] 19 Nov, 2010 [facility] [address] [id number] [address] [place] [address], [place] [address] 14 Oct, 2010 [facility] [address] [id number] [address] [place] [address], [place] [address] 16 Sep, 2010 [facility] [address] [id number] [address] [place] [address], [place] [address] 30 May, 2010 [facility] [address] [id number] [address] [place] [address], [place] [address] 19 Jul, 2009 [facility] [address] [id number] [address] [place] [address], [place] [address] 23 Jun, 2009 [facility] [address] [id number] [address] [place] [address], [place] [address] 23 Jun, 2009 [facility] [address] [id number] [address] [place] [address], [place] [address] 15 Jun, 2009 [facility] [address] [id number] [address] [place] [address], [place] [address] 15 Jun, 2009 [facility] [address] [id number] [address] [place] [address], [place] [address] 17 May, 2009 [facility] [address] [id number] [address] [place] [address], [place] [address] 09 May, 2009 [facility] [address] [id number] [address] [place] [address], [place] [address] 28 Apr, 2009 [facility] [address] [id number] [address] [place] [address], [place] [address] 13 Apr, 2009 [facility] [address] [facility] [id number] [address] [place] [address] 13 Apr, 2009 IMMUNIZATIONS No Known Immunizations SOCIAL HISTORY Never [...] right 06/1996 Surgical History multiple knee injections ([id number]) Surgical History left knee replacement 06/11 Hospitalization History Knee surgery- x 3 days 06/11
--- OUTSIDE RECORDS SUMMARY | 2019-12-16 20:31 | XMS REPORT ---
Author Author Patti Guzman Doctor Organization [facility] Address Unknown Phone Unavailable Care Team Providers Care Hearing Health Technician Name Role Phone Migration, Doctor Unavailable Unavailable PROBLEMS Type Condition ICD9-CM Code FET19-GY Code Onset Dates Condition S tatus SNOMED Code Problem ADD (attention deficit disorder) F90.0 Active 683869011 Problem Drug abuse counseling and surveillance of drug abuser Z71.51 Active 393398743 Problem Insomnia G47.00 Active 931913855 Problem Joint pain M25.50 Active 12570594 Problem Edema, unspecified type R60.9 Active 227653190 Problem Episode of recurrent major d epressive disorder, unspecified depression episode severity F33.9 Active 376627906 Problem Venous insufficiency (chronic) (peripheral) I87.2 Active [id number] Problem Carpal tunnel syndrome on left G56.02 Active 975429518755228 Problem Manic bipolar I disorder in partial remission F31. 73 Active 19847115 Problem Bipolar affective disorder, currently depressed, moderate F31.32 Active 599485387 Problem Social anxiety disorder F40.10 Active 81980213 Problem Other chronic pain G89.29 Active 8 3735064 Problem Stimulant abuse F15.10 Active 4415 25272 Problem Bipolar II disorder F31.81 Active 02195034 Problem ADD (attention deficit disorder) without hyperactivity F98.8 Active 56270347 ALLERGIES No Information ENCOUNTERS Encounter Location Date Diagnosis [facility] [address] [facility] [id number] [address] [place] [address] Mar, [facility] [address] [facility] [id number] [address] [place] [address] Mar, [facility] [address] [facility] [id number] [address] [place] [address] Jan, Bipolar affective disorder, currently depressed, moderate F31.32 [facility] [address] [facility] [id number] [address] [place] [address] Jan, Bipolar affective disorder, currently depressed, moderate F31.32 ; Social anxiety disorder F40.10 and Morbid obesity E66.01 [place] [address] [address] May, Screening for lipid disorder s Z13.220 [place] [address] [address] May, Carpal tunnel syndrome on le ft G56.02 ; Social anxiety disorder F40.10 and Screening for lipid disorders Z13.220 [place] [address] [address] 11 Apr, 2018 Bipolar II disorder F31.81 ; Social anxiety disorder F40.10 ; ADD (attention deficit disorder) without hyperactivity F98.8 and BMI 45.0-49.9, adult Z68.42 [place] [address] [address] 05 Mar, 2018 [place] [address] [address] 17 Feb, 2018 BMI 45.0-49.9, adult Z68.42 ; Carpal tunnel syndrome on left G56.02 and Social anxiety disorder F40.10 [place] [address] [address] 09 Jan, 2018 Bipolar II disorder F31.81 ; ADD (attention deficit disorder) without hyperactivity F98.8 ; Social anxiety disorder F40.10 and Stimulant abuse F15.10 [place] [address] [address] Dec, Episode of recurrent major d epressive disorder, unspecified depression episode severity F33.9 ; Other chronic pain G89.29 ; Radiculopathy, lumbar region M54.16 ; Edema of lower extremity R60.0 and BMI 45.0-49.9, adult Z68.42 [place] [address] [address] Jun, [place] [address] [facility] [id number] [address] [place] [address] Jan, Joint pain M25.50 [facility] [address] [facility] [id number] [address] [place] [address] Jan, Wellness examination Z00.00 ; Pain in right knee M25.561 ; Pain in left knee M25.562 ; Edema, unspecified type R60.9 and Drug abuse counseling and surveillance of drug abuser Z71.51 [facility] [address] [facility] [id number] [address] [place] [address] November, [facility] [address] [facility] [id number] [address] [place] [address] Oct, [facility] [address] [place] [id number] [address] [place] [address] Oct, ADD (attention deficit disor josselin) F90.0 ; Social anxiety disorder F40.10 and Manic bipolar I disorder in partial remission F31.73 [facility] [address] [facility] [id number] [address] [place] [address] Aug, [facility] [address] [facility] [id number] [address] [place] [address] Aug, [facility] [address] [facility] [id number] [address] [place] [address] Aug, [facility] [address] [facility] [id number] [address] [place] [address] Jul, [facility] [address] [facility] [id number] [address] [place] [address] Jul, [facility] [address] [facility] [id number] [address] [place] [address] Jul, [facility] [address] [facility] [id number] [address] [place] [address] Jun, [facility] [address] [place] [id number] [address] [place] [address] Jun, [facility] [address] [facility] [id number] [address] [place] [address] Jun, [facility] [address] [facility] [id number] [address] [place] [address] Jun, [facility] [address] [facility] [id number] [address] [place] [address] May, Joint pain M25.50 ; ADD (att ention deficit disorder) F90.0 ; Edema R60.9 and Insomnia G47.00 [facility] [address] [facility] [id number] [address] [place] [address] May, [facility] [address] [facility] [id number] [address] [place] [address] May, [facility] [address] [facility] [id number] [address] [place] [address] May, [facility] [address] [facility] [id number] [address] [place] [address] May, Left wrist pain M25.532 ; Si nusitis J32.9 and Drug abuse counseling and surveillance of drug abuser Z71.51 [facility] [address] [facility] [id number] [address] [place] [address] Apr, [facility] [address] [facility] [id number] [address] [place] [address] Apr, [facility] [address] [facility] [id number] [address] [place] [address] Apr, [facility] [address] [facility] [id number] [address] [place] [address] Apr, [facility] [address] [facility] [id number] [address] [place] [address] Apr, [facility] [address] [facility] [id number] [address] [place] [address] Apr, [facility] [address] [facility] [id number] [address] [place] [address] Apr, [facility] [address] [id number] [address] [place] [address] Mar, Unspecified venous (peripher al) insufficiency 459.81 ; Bipolar I disorder, most recent episode (or current) manic, moderate 296.42 ; Social phobia 300.23 ; Attention deficit disorder of childhood without mention of hyperactivity 314.00 ; Pain in joint, lower leg 719.46 ; Thrombosis 453.9 and Chronic pain 338.29 [facility] [address] [id number] [address] [place] [address] 18 Mar, 2015 [facility] [address] [id number] [address] [place] [address] Mar, [facility] [address] [id number] [address] [place] [address] Mar, [facility] [address] [id number] [address] [place] [address] 17 Mar, 2015 [facility] [address] [id number] [address] [place] [address] 17 Mar, 2015 [facility] [address] [id number] [address] [place] [address] 11 Mar, 2015 [facility] [address] [id number] [address] [place] [address] 10 Mar, 2015 Manic bipolar I disorder in partial remission 296.45 ; Social phobia 300.23 and Attention deficit disorder of childhood without mention of hyperactivity 314.00 [facility] [address] [id number] [address] [place] [address] Mar, [facility] [address] [id number] [address] [place] [address] Feb, [facility] [address] [id number] [address] [place] [address] Feb, Thrombosis 453.9 ; Unspecifi ed venous (peripheral) insufficiency 459.81 ; Bipolar I disorder, most recent episode (or current) manic, moderate 296.42 ; Social phobia 300.23 ; Attention deficit disorder of childhood without mention of hyperactivity 314.00 ; Pain in joint, lower leg 719.46 and Edema 782.3 [facility] [address] [id number] [address] [place] [address] Feb, [facility] [address] [facility] [id number] [address] [place] [address] Feb, Social phobia 300.23 ; Atten tion deficit disorder of childhood without mention of hyperactivity 314.00 and Bipolar I disorder, most recent episode manic, in partial remission 296.45 [facility] [address] [id number] [address] [place] [address] Jan, [facility] [address] [facility] [id number] [address] [place] [address] Jan, [facility] [address] [facility] [id number] [address] [place] [address] Jan, Unspecified venous (peripher al) insufficiency 459.81 and Thrombophlebitis 451.9 [facility] [address] [facility] [id number] [address] [place] [address] Jan, [facility] [address] [facility] [id number] [address] [place] [address] Dec, Headache 784.0 and Back pain 724.5 [facility] [address] [facility] [id number] [address] [place] [address] Dec, [facility] [address] [facility] [id number] [address] [place] [address] Dec, Bipolar I disorder, most rec ent episode (or current) manic, moderate 296.42 ; Attention deficit disorder of childhood without mention of hyperactivity 314.00 and Social phobia 300.23 [facility] [address] [id number] [address] [place] [address] November, [facility] [address] [facility] [id number] [address] [place] [address] November, [facility] [address] [id number] [address] [place] [address], [place] [address] Oct, [facility] [address] [id number] [address] [place] [address], [place] [address] Oct, [facility] [address] [id number] [address] [place] [address], [place] [address] Sep, [facility] [address] [id number] [address] [place] [address], [place] [address] Sep, [facility] [address] [id number] [address] [place] [address], [place] [address] Aug, [facility] [address] [id number] [address] [place] [address], [place] [address] Aug, [facility] [address] [id number] [address] [place] [address], [place] [address] Aug, [facility] [address] [id number] [address] [place] [address], [place] [address] Aug, [facility] [address] [id number] [address] [place] [address], [place] [address] Aug, [facility] [address] [id number] [address] [place] [address], [place] [address] Aug, [facility] [address] [id number] [address] [place] [address], [place] [address] Aug, [facility] [address] [id number] [address] [place] [address], [place] [address] Jul, [facility] [address] [id number] [address] [place] [address], [place] [address] Jul, [facility] [address] [id number] [address] [place] [address], [place] [address] Jun, [facility] [address] [id number] [address] [place] [address], [place] [address] Jun, [facility] [address] [id number] [address] [place] [address], [place] [address] May, [facility] [address] [id number] [address] [place] [address], [place] [address] May, [facility] [address] [id number] [address] [place] [address], [place] [address] May, [facility] [address] [id number] [address] [place] [address], [place] [address] May, [facility] [address] [id number] [address] [place] [address], [place] [address] May, [facility] [address] [id number] [address] [place] [address], [place] [address] May, [facility] [address] [id number] [address] [place] [address], [place] [address] Apr, [facility] [address] [id number] [address] [place] [address], [place] [address] Apr, [facility] [address] [id number] [address] [place] [address], [place] [address] Apr, [facility] [address] [id number] [address] [place] [address], [place] [address] Apr, [facility] [address] [id number] [address] [place] [address], [place] [address] 22 Mar, 2014 [facility] [address] [id number] [address] [place] [address], [place] [address] 22 Mar, 2014 [facility] [address] [id number] [address] [place] [address], [place] [address] 19 Sep2013 [facility] [address] [id number] [address] [place] [address], [place] [address] 16 Mar, 2014 [facility] [address] [id number] [address] [place] [address], [place] [address] 16 Mar, 2013 [facility] [address] [id number] [address] [place] [address], [place] [address] 15 Mar, 2013 [facility] [address] [id number] [facility] [place] [address] 11 Mar, 2013 [facility] [address] [id number] [address] [place] [address], [place] [address] 11 Mar, 2013 [facility] [address] [id number] [address] [place] [address], [place] [address] 11 Mar, 2013 [facility] [address] [id number] [address] [place] [address], [place] [address] 11 Mar, 2013 [facility] [address] [id number] [address] [place] [address], [place] [address] 10 Mar, 2013 [facility] [address] [id number] [address] [place] [address], [place] [address] 09 Mar, 2013 [facility] [address] [id number] [address] [place] [address], [place] [address] Mar, 2013 [facility] [address] [id number] [address] [place] [address], [place] [address] Mar, 2013 [facility] [address] [id number] [address] [place] [address], [place] [address] Mar, [facility] [address] [id number] [address] [place] [address], [place] [address] Feb, [facility] [address] [id number] [address] [place] [address], [place] [address] Feb, [facility] [address] [id number] [address] [place] [address], [place] [address] Feb, [facility] [address] [id number] [address] [place] [address], [place] [address] Feb, [facility] [address] [id number] [address] [place] [address], [place] [address] Feb, [facility] [address] [id number] [address] [place] [address], [place] [address] Feb, [facility] [address] [id number] [address] [place] [address], [place] [address] Feb, 2013 [facility] [address] [id number] [address] [place] [address], [place] [address] Feb, 2013 [facility] [address] [id number] [address] [place] [address], [place] [address] Feb, [facility] [address] [id number] [address] [place] [address], [place] [address] Feb, 2013 [facility] [address] [id number] [address] [place] [address], [place] [address] Feb, [facility] [address] [id number] [address] [place] [address], [place] [address] Feb, [facility] [address] [id number] [address] [place] [address], [place] [address] Feb, [facility] [address] [id number] [address] [place] [address], [place] [address] Feb, [facility] [address] [id number] [address] [place] [address], [place] [address] Jan, [facility] [address] [id number] [address] [place] [address], [place] [address] Jan, [facility] [address] [id number] [address] [place] [address], [place] [address] Jan, [facility] [address] [id number] [address] [place] [address], [place] [address] Jan, [facility] [address] [id number] [address] [place] [address], [place] [address] Jan, [facility] [address] [id number] [address] [place] [address], [place] [address] Jan, [facility] [address] [id number] [address] [place] [address], [place] [address] Jan, [facility] [address] [id number] [address] [place] [address], [place] [address] Dec, [facility] [address] [id number] [facility] [place] [address] Dec, [facility] [address] [id number] [facility] [place] [address] Dec, [facility] [address] [id number] [facility] [place] [address] Dec, [facility] [address] [id number] [facility] [place] [address] Dec, [facility] [address] [id number] [facility] [place] [address] Dec, [facility] [address] [id number] [address] [place] [address], [place] [address] Dec, [facility] [address] [id number] [address] [place] [address], [place] [address] Dec, [facility] [address] [id number] [address] [place] [address], [place] [address] Dec, [facility] [address] [id number] [address] [place] [address], [place] [address] November, [facility] [address] [id number] [address] [place] [address], [place] [address] November, [facility] [address] [id number] [address] [place] [address], [place] [address] November, [facility] [address] [id number] [address] [place] [address], [place] [address] November, [facility] [address] [id number] [address] [place] [address], [place] [address] November, [facility] [address] [id number] [address] [place] [address], [place] [address] November, [facility] [address] [id number] [address] [place] [address], [place] [address] November, [facility] [address] [id number] [address] [place] [address], [place] [address] November, [facility] [address] [id number] [facility] [place] [address] November, [facility] [address] [id number] [address] [place] [address], [place] [address] November, [facility] [address] [id number] [address] [place] [address], [place] [address] November, [facility] [address] [id number] [address] [place] [address], [place] [address] November, [facility] [address] [id number] [address] [place] [address], [place] [address] November, [facility] [address] [id number] [address] [place] [address], [place] [address] November, [facility] [address] [id number] [address] [place] [address], [place] [address] Oct, [facility] [address] [id number] [address] [place] [address], [place] [address] Oct, [facility] [address] [id number] [address] [place] [address], [place] [address] Oct, [facility] [address] [id number] [address] [place] [address], [place] [address] Oct, [facility] [address] [id number] [address] [place] [address], [place] [address] Oct, [facility] [address] [id number] [address] [place] [address], [place] [address] Oct, [facility] [address] [id number] [address] [place] [address], [place] [address] Sep, [facility] [address] [id number] [address] [place] [address], [place] [address] Sep, [facility] [address] [id number] [address] [place] [address], [place] [address] Sep, [facility] [address] [id number] [address] [place] [address], [place] [address] Sep, [facility] [address] [id number] [address] [place] [address], [place] [address] Aug, [facility] [address] [id number] [address] [place] [address], [place] [address] Aug, [facility] [address] [id number] [address] [place] [address], [place] [address] Aug, [facility] [address] [id number] [address] [place] [address], [place] [address] Aug, [facility] [address] [id number] [address] [place] [address], [place] [address] Jul, [facility] [address] [id number] [address] [place] [address], [place] [address] Jul, [facility] [address] [id number] [address] [place] [address], [place] [address] Jul, [facility] [address] [id number] [address] [place] [address], [place] [address] Jul, [facility] [address] [id number] [address] [place] [address], [place] [address] Jul, [facility] [address] [id number] [address] [place] [address], [place] [address] Jul, [facility] [address] [id number] [address] [place] [address], [place] [address] Jul, [facility] [address] [id number] [address] [place] [address], [place] [address] Jun, [facility] [address] [id number] [address] [place] [address], [place] [address] Jun, [facility] [address] [id number] [address] [place] [address], [place] [address] Jun, [facility] [address] [id number] [address] [place] [address], [place] [address] Jun, [facility] [address] [id number] [address] [place] [address], [place] [address] Jun, [facility] [address] [id number] [address] [place] [address], [place] [address] Jun, [facility] [address] [id number] [address] [place] [address], [place] [address] May, [facility] [address] [id number] [address] [place] [address], [place] [address] May, [facility] [address] [id number] [address] [place] [address], [place] [address] 15 Apr, 2013 [facility] [address] [id number] [address] [place] [address], [place] [address] 15 Apr, 2013 [facility] [address] [id number] [address] [place] [address], [place] [address] 10 Apr, 2013 [facility] [address] [id number] [address] [place] [address] 10 Apr, 2013 [facility] [address] [id number] [address] [place] [address], [place] [address] 08 Apr, 2013 [facility] [address] [id number] [address] [place] [id number] 24 Mar, 2013 [facility] [address] [id number] [address] [place] [address] 19 Mar, 2013 [facility] [address] [id number] [address] [place] [address] 12 Mar, 2013 [facility] [address] [id number] [address] [place] [address], [place] [address] 10 Mar, 2013 [facility] [address] [id number] [address] [place] [address] 16 Feb, 2013 [facility] [address] [id number] [address] [place] [id number] 06 Feb, 2013 [facility] [address] [id number] [address] [place] [id number] Jan, [facility] [address] [id number] [address] [place] [address], [place] [address] Jan, [facility] [address] [id number] [address] [place] [address], [place] [address] Jan, [facility] [address] [id number] [address] [place] [address], [place] [address] Jan, [facility] [address] [id number] [address] [place] [address], [place] [address] Dec, [facility] [address] [id number] [address] [place] [address], [place] [address] Dec, [facility] [address] [id number] [address] [place] [address], [place] [address] Dec, [facility] [address] [id number] [address] [place] [address], [place] [address] Dec, [facility] [address] [id number] [address] [place] [address], [place] [address] November, [facility] [address] [id number] [address] [place] [address], [place] [address] November, [facility] [address] [id number] [address] [place] [address], [place] [address] Oct, [facility] [address] [id number] [address] [place] [address], [place] [address] Sep, [facility] [address] [id number] [address] [place] [address], [place] [address] Sep, [facility] [address] [id number] [address] [place] [address], [place] [address] 14 Aug, 2012 [facility] [address] [id number] [address] [place] [address], [place] [address] Aug, [facility] [address] [id number] [address] [place] [address], [place] [address] Jul, [facility] [address] [id number] [address] [place] [address], [place] [address] Jul, [facility] [address] [id number] [address] [place] [address], [place] [address] Jul, [facility] [address] [id number] [address] [place] [address], [place] [address] Jun, [facility] [address] [id number] [address] [place] [address], [place] [address] Jun, [facility] [address] [id number] [address] [place] [address], [place] [address] Jun, [facility] [address] [id number] [address] [place] [address], [place] [address] Jun, [facility] [address] [id number] [address] [place] [address], [place] [address] May, [facility] [address] [id number] [address] [place] [address], [place] [address] May, [facility] [address] [id number] [address] [place] [address], [place] [address] May, [facility] [address] [id number] [address] [place] [address], [place] [address] May, [facility] [address] [id number] [address] [place] [address], [place] [address] May, [facility] [address] [id number] [address] [place] [address], [place] [address] May, [facility] [address] [id number] [address] [place] [address], [place] [address] May, [facility] [address] [id number] [address] [place] [address], [place] [address] 15 Apr, 2012 [facility] [address] [id number] [address] [place] [address], [place] [address] 15 Apr, 2012 [facility] [address] [id number] [address] [place] [address], [place] [address] 15 Apr, 2012 [facility] [address] [id number] [address] [place] [address], [place] [address] 15 Apr, 2012 [facility] [address] [id number] [address] [place] [address], [place] [address] Apr, [facility] [address] [id number] [address] [place] [address], [place] [address] Apr, [facility] [address] [id number] [address] [place] [address], [place] [address] Apr, [facility] [address] [id number] [address] [place] [address], [place] [address] Apr, [facility] [address] [id number] [address] [place] [address], [place] [address] Jan, [facility] [address] [id number] [address] [place] [address], [place] [address] Jan, [facility] [address] [id number] [address] [place] [address], [place] [address] Dec, [facility] [address] [id number] [address] [place] [address], [place] [address] November, [facility] [address] [id number] [address] [place] [address], [place] [address] Oct, [facility] [address] [id number] [address] [place] [address], [place] [address] Oct, [facility] [address] [id number] [address] [place] [address], [place] [address] Oct, [facility] [address] [id number] [address] [place] [address], [place] [address] Oct, [facility] [address] [id number] [address] [place] [address], [place] [address] Sep, [facility] [address] [id number] [address] [place] [address], [place] [address] Sep, [facility] [address] [id number] [address] [place] [address], [place] [address] 26 Sep, 2011 [facility] [address] [id number] [address] [place] [address], [place] [address] 13 Jun, 2011 [facility] [address] [id number] [address] [place] [address], [place] [address] 13 Jun, 2011 [facility] [address] [id number] [address] [place] [address], [place] [address] 22 May, 2011 [facility] [address] [id number] [address] [place] [address], [place] [address] 14 Jan, 2011 [facility] [address] [id number] [address] [place] [address], [place] [address] 19 Nov, 2010 [facility] [address] [id number] [address] [place] [address], [place] [address] 14 Oct, 2010 [facility] [address] [id number] [address] [place] [address], [place] [address] 16 Sep, 2010 [facility] [address] [id number] [address] [place] [address], [place] [address] 30 May, 2010 [facility] [address] [id number] [address] [place] [address], [place] [address] 19 Jul, 2009 [facility] [address] [id number] [address] [place] [address], [place] [address] 23 Jun, 2009 [facility] [address] [id number] [address] [place] [address], [place] [address] 23 Jun, 2009 [facility] [address] [id number] [address] [place] [address], [place] [address] 15 Jun, 2009 [facility] [address] [id number] [address] [place] [address], [place] [address] 15 Jun, 2009 [facility] [address] [id number] [address] [place] [address], [place] [address] 17 May, 2009 [facility] [address] [id number] [address] [place] [address], [place] [address] May, [facility] [address] [facility] [id number] [address] [place] [address] Apr, [facility] [address] [facility] [id number] [address] [place] [address] Apr, [facility] [address] [facility] [id number] [address] [place] [address] Apr, IMMUNIZATIONS No Known Immunizations SOCIAL HISTORY [...] right 06/1996 Surgical History multiple knee injections ([id number]) Surgical History left knee replacement 06/11 Hospitalization History Knee surgery- x 3 days 06/11
--- OUTSIDE RECORDS SUMMARY | 2019-12-16 20:31 | XMS REPORT ---
Author Author Patti Guzman Doctor Organization [facility] Address Unknown Phone Unavailable Care Team Providers Care Manager Of Case Management Name Role Phone Migration, Doctor Unavailable Unavailable PROBLEMS Type Condition ICD9-CM Code XUU03-ED Code Onset Dates Condition S tatus SNOMED Code Problem ADD (attention deficit disorder) F90.0 Active 252037641 Problem Drug abuse counseling and surveillance of drug abuser Z71.51 Active 179826925 Problem Insomnia G47.00 Active 345780258 Problem Joint pain M25.50 Active 55763039 Problem Edema, unspecified type R60.9 Active 353853802 Problem Episode of recurrent major d epressive disorder, unspecified depression episode severity F33.9 Active 102653233 Problem Venous insufficiency (chronic) (peripheral) I87.2 Active 10500430833739104 Problem Carpal tunnel syndrome on left G56.02 Active 843718784842017 Problem Manic bipolar I disorder in partial remission F31. 73 Active 27825676 Problem Bipolar affective disorder, currently depressed, moderate F31.32 Active 605976488 Problem Social anxiety disorder F40.10 Active 18296489 Problem Other chronic pain G89.29 Active 8 5964401 Problem Stimulant abuse F15.10 Active 4415 03826 Problem Bipolar II disorder F31.81 Active 03621869 Problem ADD (attention deficit disorder) without hyperactivity F98.8 Active [id number] ALLERGIES No Information ENCOUNTERS Encounter Location Date Diagnosis [facility] [address] [facility] [id number] [address] [place] [address] Mar, [facility] [address] [facility] [id number] [address] [place] [address] Mar, [facility] [address] [facility] [id number] [address] [place] [address] Jan, Bipolar affective disorder, currently depressed, moderate F31.32 [facility] [address] [facility] [id number] [address] [place] [address] Jan, Bipolar affective disorder, currently depressed, moderate F31.32 ; Social anxiety disorder F40.10 and Morbid obesity E66.01 [place] [address] [address] May, Screening for lipid disorder s Z13.220 [place] [address] [address] May, Carpal tunnel syndrome on le ft G56.02 ; Social anxiety disorder F40.10 and Screening for lipid disorders Z13.220 [place] [address] [address] 11 Apr, 2018 Bipolar II disorder F31.81 ; Social anxiety disorder F40.10 ; ADD (attention deficit disorder) without hyperactivity F98.8 and BMI 45.0-49.9, adult Z68.42 [place] [address] [address] 05 Mar, 2018 [place] [address] [address] 17 Feb, 2018 BMI 45.0-49.9, adult Z68.42 ; Carpal tunnel syndrome on left G56.02 and Social anxiety disorder F40.10 [place] [address] [address] 09 Jan, 2018 Bipolar II disorder F31.81 ; ADD (attention deficit disorder) without hyperactivity F98.8 ; Social anxiety disorder F40.10 and Stimulant abuse F15.10 [place] [address] [address] Dec, Episode of recurrent major d epressive disorder, unspecified depression episode severity F33.9 ; Other chronic pain G89.29 ; Radiculopathy, lumbar region M54.16 ; Edema of lower extremity R60.0 and BMI 45.0-49.9, adult Z68.42 [place] [address] [address] Jun, [place] [address] [facility] [id number] [address] [place] [address] Jan, Joint pain M25.50 [facility] [address] [facility] [id number] [address] [place] [address] Jan, Wellness examination Z00.00 ; Pain in right knee M25.561 ; Pain in left knee M25.562 ; Edema, unspecified type R60.9 and Drug abuse counseling and surveillance of drug abuser Z71.51 [facility] [address] [facility] [id number] [address] [place] [address] November, [facility] [address] [facility] [id number] [address] [place] [address] Oct, [facility] [address] [place] [id number] [address] [place] [address] Oct, ADD (attention deficit disor josselin) F90.0 ; Social anxiety disorder F40.10 and Manic bipolar I disorder in partial remission F31.73 [facility] [address] [facility] [id number] [address] [place] [address] Aug, [facility] [address] [facility] [id number] [address] [place] [address] Aug, [facility] [address] [facility] [id number] [address] [place] [address] Aug, [facility] [address] [facility] [id number] [address] [place] [address] Jul, [facility] [address] [facility] [id number] [address] [place] [address] Jul, [facility] [address] [facility] [id number] [address] [place] [address] Jul, [facility] [address] [facility] [id number] [address] [place] [address] Jun, [facility] [address] [place] [id number] [address] [place] [address] Jun, [facility] [address] [facility] [id number] [address] [place] [address] Jun, [facility] [address] [facility] [id number] [address] [place] [address] Jun, [facility] [address] [facility] [id number] [address] [place] [address] May, Joint pain M25.50 ; ADD (att ention deficit disorder) F90.0 ; Edema R60.9 and Insomnia G47.00 [facility] [address] [facility] [id number] [address] [place] [address] May, [facility] [address] [facility] [id number] [address] [place] [address] May, [facility] [address] [facility] [id number] [address] [place] [address] May, [facility] [address] [facility] [id number] [address] [place] [address] May, Left wrist pain M25.532 ; Si nusitis J32.9 and Drug abuse counseling and surveillance of drug abuser Z71.51 [facility] [address] [facility] [id number] [address] [place] [address] Apr, [facility] [address] [facility] [id number] [address] [place] [address] Apr, [facility] [address] [facility] [id number] [address] [place] [address] Apr, [facility] [address] [facility] [id number] [address] [place] [address] Apr, [facility] [address] [facility] [id number] [address] [place] [address] Apr, [facility] [address] [facility] [id number] [address] [place] [address] Apr, [facility] [address] [facility] [id number] [address] [place] [address] Apr, [facility] [address] [id number] [address] [place] [address] Mar, Unspecified venous (peripher al) insufficiency 459.81 ; Bipolar I disorder, most recent episode (or current) manic, moderate 296.42 ; Social phobia 300.23 ; Attention deficit disorder of childhood without mention of hyperactivity 314.00 ; Pain in joint, lower leg 719.46 ; Thrombosis 453.9 and Chronic pain 338.29 [facility] [address] [id number] [address] [place] [address] 18 Mar, 2015 [facility] [address] [id number] [address] [place] [address] Mar, [facility] [address] [id number] [address] [place] [address] Mar, [facility] [address] [id number] [address] [place] [address] 17 Mar, 2015 [facility] [address] [id number] [address] [place] [address] 17 Mar, 2015 [facility] [address] [id number] [address] [place] [address] 11 Mar, 2015 [facility] [address] [id number] [address] [place] [address] 10 Mar, 2015 Manic bipolar I disorder in partial remission 296.45 ; Social phobia 300.23 and Attention deficit disorder of childhood without mention of hyperactivity 314.00 [facility] [address] [id number] [address] [place] [address] Mar, [facility] [address] [id number] [address] [place] [address] Feb, [facility] [address] [id number] [address] [place] [address] Feb, Thrombosis 453.9 ; Unspecifi ed venous (peripheral) insufficiency 459.81 ; Bipolar I disorder, most recent episode (or current) manic, moderate 296.42 ; Social phobia 300.23 ; Attention deficit disorder of childhood without mention of hyperactivity 314.00 ; Pain in joint, lower leg 719.46 and Edema 782.3 [facility] [address] [id number] [address] [place] [address] Feb, [facility] [address] [facility] [id number] [address] [place] [address] Feb, Social phobia 300.23 ; Atten tion deficit disorder of childhood without mention of hyperactivity 314.00 and Bipolar I disorder, most recent episode manic, in partial remission 296.45 [facility] [address] [id number] [address] [place] [address] Jan, [facility] [address] [facility] [id number] [address] [place] [address] Jan, [facility] [address] [facility] [id number] [address] [place] [address] Jan, Unspecified venous (peripher al) insufficiency 459.81 and Thrombophlebitis 451.9 [facility] [address] [facility] [id number] [address] [place] [address] Jan, [facility] [address] [facility] [id number] [address] [place] [address] Dec, Headache 784.0 and Back pain 724.5 [facility] [address] [facility] [id number] [address] [place] [address] Dec, [facility] [address] [facility] [id number] [address] [place] [address] Dec, Bipolar I disorder, most rec ent episode (or current) manic, moderate 296.42 ; Attention deficit disorder of childhood without mention of hyperactivity 314.00 and Social phobia 300.23 [facility] [address] [id number] [address] [place] [phone] November, [facility] [address] [facility] [id number] [address] [place] [address] November, [facility] [address] [id number] [address] [place] [address], [place] [address] Oct, [facility] [address] [id number] [address] [place] [address], [place] [address] Oct, [facility] [address] [id number] [address] [place] [address], [place] [address] Sep, [facility] [address] [id number] [address] [place] [address], [place] [address] Sep, [facility] [address] [id number] [address] [place] [address], [place] [address] Aug, [facility] [address] [id number] [address] [place] [address], [place] [address] Aug, [facility] [address] [id number] [address] [place] [address], [place] [address] Aug, [facility] [address] [id number] [address] [place] [address], [place] [address] Aug, [facility] [address] [id number] [address] [place] [address], [place] [address] Aug, [facility] [address] [id number] [address] [place] [address], [place] [address] Aug, [facility] [address] [id number] [address] [place] [address], [place] [address] Aug, [facility] [address] [id number] [address] [place] [address], [place] [address] Jul, [facility] [address] [id number] [address] [place] [address], [place] [address] Jul, [facility] [address] [id number] [address] [place] [address], [place] [address] Jun, [facility] [address] [id number] [address] [place] [address], [place] [address] Jun, [facility] [address] [id number] [address] [place] [address], [place] [address] May, [facility] [address] [id number] [address] [place] [address], [place] [address] May, [facility] [address] [id number] [address] [place] [address], [place] [address] May, [facility] [address] [id number] [address] [place] [address], [place] [address] May, [facility] [address] [id number] [address] [place] [address], [place] [address] May, [facility] [address] [id number] [address] [place] [address], [place] [address] May, [facility] [address] [id number] [address] [place] [address], [place] [address] Apr, [facility] [address] [id number] [address] [place] [address], [place] [address] Apr, [facility] [address] [id number] [address] [place] [address], [place] [address] Apr, [facility] [address] [id number] [address] [place] [address], [place] [address] Apr, [facility] [address] [id number] [address] [place] [address], [place] [address] 22 Mar, 2014 [facility] [address] [id number] [address] [place] [address], [place] [address] 22 Mar, 2014 [facility] [address] [id number] [address] [place] [address], [place] [address] 19 Sep2013 [facility] [address] [id number] [address] [place] [address], [place] [address] 16 Mar, 2014 [facility] [address] [id number] [address] [place] [address], [place] [address] 16 Mar, 2013 [facility] [address] [id number] [address] [place] [address], [place] [address] 15 Mar, 2013 [facility] [address] [id number] [facility] [place] [address] 11 Mar, 2013 [facility] [address] [id number] [address] [place] [address], [place] [address] 11 Mar, 2013 [facility] [address] [id number] [address] [place] [address], [place] [address] 11 Mar, 2013 [facility] [address] [id number] [address] [place] [address], [place] [address] 11 Mar, 2013 [facility] [address] [id number] [address] [place] [address], [place] [address] 10 Mar, 2013 [facility] [address] [id number] [address] [place] [address], [place] [address] 09 Mar, 2013 [facility] [address] [id number] [address] [place] [address], [place] [address] Mar, 2013 [facility] [address] [id number] [address] [place] [address], [place] [address] Mar, 2013 [facility] [address] [id number] [address] [place] [address], [place] [address] Mar, [facility] [address] [id number] [address] [place] [address], [place] [address] Feb, [facility] [address] [id number] [address] [place] [address], [place] [address] Feb, [facility] [address] [id number] [address] [place] [address], [place] [address] Feb, [facility] [address] [id number] [address] [place] [address], [place] [address] Feb, [facility] [address] [id number] [address] [place] [address], [place] [address] Feb, [facility] [address] [id number] [address] [place] [address], [place] [address] Feb, [facility] [address] [id number] [address] [place] [address], [place] [address] Feb, 2013 [facility] [address] [id number] [address] [place] [address], [place] [address] Feb, 2013 [facility] [address] [id number] [address] [place] [address], [place] [address] Feb, [facility] [address] [id number] [address] [place] [address], [place] [address] Feb, 2013 [facility] [address] [id number] [address] [place] [address], [place] [address] Feb, [facility] [address] [id number] [address] [place] [address], [place] [address] Feb, [facility] [address] [id number] [address] [place] [address], [place] [address] Feb, [facility] [address] [id number] [address] [place] [address], [place] [address] Feb, [facility] [address] [id number] [address] [place] [address], [place] [address] Jan, [facility] [address] [id number] [address] [place] [address], [place] [address] Jan, [facility] [address] [id number] [address] [place] [address], [place] [address] Jan, [facility] [address] [id number] [address] [place] [address], [place] [address] Jan, [facility] [address] [id number] [address] [place] [address], [place] [address] Jan, [facility] [address] [id number] [address] [place] [address], [place] [address] Jan, [facility] [address] [id number] [address] [place] [address], [place] [address] Jan, [facility] [address] [id number] [address] [place] [address], [place] [address] Dec, [facility] [address] [id number] [facility] [place] [address] Dec, [facility] [address] [id number] [facility] [place] [address] Dec, [facility] [address] [id number] [facility] [place] [address] Dec, [facility] [address] [id number] [facility] [place] [address] Dec, [facility] [address] [id number] [facility] [place] [address] Dec, [facility] [address] [id number] [address] [place] [address], [place] [address] Dec, [facility] [address] [id number] [address] [place] [address], [place] [address] Dec, [facility] [address] [id number] [address] [place] [address], [place] [address] Dec, [facility] [address] [id number] [address] [place] [address], [place] [address] November, [facility] [address] [id number] [address] [place] [address], [place] [address] November, [facility] [address] [id number] [address] [place] [address], [place] [address] November, [facility] [address] [id number] [address] [place] [address], [place] [address] November, [facility] [address] [id number] [address] [place] [address], [place] [address] November, [facility] [address] [id number] [address] [place] [address], [place] [address] November, [facility] [address] [id number] [address] [place] [address], [place] [address] November, [facility] [address] [id number] [address] [place] [address], [place] [address] November, [facility] [address] [id number] [facility] [place] [address] November, [facility] [address] [id number] [address] [place] [address], [place] [address] November, [facility] [address] [id number] [address] [place] [address], [place] [address] November, [facility] [address] [id number] [address] [place] [address], [place] [address] November, [facility] [address] [id number] [address] [place] [address], [place] [address] November, [facility] [address] [id number] [address] [place] [address], [place] [address] November, [facility] [address] [id number] [address] [place] [address], [place] [address] Oct, [facility] [address] [id number] [address] [place] [address], [place] [address] Oct, [facility] [address] [id number] [address] [place] [address], [place] [address] Oct, [facility] [address] [id number] [address] [place] [address], [place] [address] Oct, [facility] [address] [id number] [address] [place] [address], [place] [address] Oct, [facility] [address] [id number] [address] [place] [address], [place] [address] Oct, [facility] [address] [id number] [address] [place] [address], [place] [address] Sep, [facility] [address] [id number] [address] [place] [address], [place] [address] Sep, [facility] [address] [id number] [address] [place] [address], [place] [address] Sep, [facility] [address] [id number] [address] [place] [address], [place] [address] Sep, [facility] [place] [address] [id number] [address] [place] [address], [place] [address] Aug, [facility] [address] [id number] [address] [place] [address], [place] [address] Aug, [facility] [place] [address] [id number] [address] [place] [address], [place] [address] Aug, [facility] [address] [id number] [address] [place] [address], [place] [address] Aug, [facility] [address] [id number] [address] [place] [address], [place] [address] Jul, [facility] [place] [address] [id number] [address] [place] [address], [place] [address] Jul, [facility] [place] [address] [id number] [address] [place] [address], [place] [address] Jul, [facility] [place] [address] [id number] [address] [place] [address], [place] [address] Jul, [facility] [place] [address] [id number] [address] [place] [address], [place] [address] Jul, [facility] [address] [id number] [address] [place] [address], [place] [address] Jul, [facility] [place] [address] [id number] [address] [place] [address], [place] [address] Jul, [facility] [address] [id number] [address] [place] [address], [place] [address] Jun, [facility] [address] [id number] [address] [place] [address], [place] [address] Jun, [facility] [address] [id number] [address] [place] [address], [place] [address] Jun, [facility] [address] [id number] [address] [place] [address], [place] [address] Jun, [facility] [address] [id number] [address] [place] [address], [place] [address] Jun, [facility] [address] [id number] [address] [place] [address], [place] [address] Jun, [facility] [address] [id number] [address] [place] [address], [place] [address] May, [facility] [address] [id number] [address] [place] [address], [place] [address] May, [facility] [address] [id number] [address] [place] [address], [place] [address] 15 Apr, 2013 [facility] [address] [id number] [address] [place] [address], [place] [address] 15 Apr, 2013 [facility] [address] [id number] [address] [place] [address], [place] [address] 10 Apr, 2013 [facility] [address] [id number] [address] [place] [address] 10 Apr, 2013 [facility] [address] [id number] [address] [place] [address], [place] [address] 08 Apr, 2013 [facility] [address] [id number] [address] [place] [id number] 24 Mar, 2013 [facility] [address] [id number] [address] [place] [address] 19 Mar, 2013 [facility] [address] [id number] [address] [place] [id number] 12 Mar, 2013 [facility] [address] [id number] [address] [place] [address], [place] [address] 10 Mar, 2013 [facility] [address] [id number] [address] [place] [id number] 16 Feb, 2013 [facility] [address] [id number] [address] [place] [id number] 06 Feb, 2013 [facility] [address] [id number] [address] [place] [address] Jan, [facility] [place] [address] [id number] [address] [place] [address], [place] [address] Jan, [facility] [address] [id number] [address] [place] [address], [place] [address] Jan, [facility] [address] [id number] [address] [place] [address], [place] [address] Jan, [facility] [address] [id number] [address] [place] [address], [place] [address] Dec, [facility] [address] [id number] [address] [place] [address], [place] [address] Dec, [facility] [address] [id number] [address] [place] [address], [place] [address] Dec, [facility] [place] [address] [id number] [address] [place] [address], [place] [address] Dec, [facility] [place] [address] [id number] [address] [place] [address], [place] [address] November, [facility] [place] [address] [id number] [address] [place] [address], [place] [address] November, [facility] [place] [address] [id number] [address] [place] [address], [place] [address] Oct, [facility] [place] [address] [id number] [address] [place] [address], [place] [address] Sep, [facility] [address] [id number] [address] [place] [address], [place] [address] Sep, [facility] [address] [id number] [address] [place] [address], [place] [address] 14 Aug, 2012 [facility] [address] [id number] [address] [place] [address], [place] [address] Aug, [facility] [address] [id number] [address] [place] [address], [place] [address] Jul, [facility] [address] [id number] [address] [place] [address], [place] [address] Jul, [facility] [address] [id number] [address] [place] [address], [place] [address] Jul, [facility] [address] [id number] [address] [place] [address], [place] [address] Jun, [facility] [address] [id number] [address] [place] [address], [place] [address] Jun, [facility] [address] [id number] [address] [place] [address], [place] [address] Jun, [facility] [address] [id number] [address] [place] [address], [place] [address] Jun, [facility] [address] [id number] [address] [place] [address], [place] [address] May, [facility] [address] [id number] [address] [place] [address], [place] [address] May, [facility] [address] [id number] [address] [place] [address], [place] [address] May, [facility] [address] [id number] [address] [place] [address], [place] [address] May, [facility] [address] [id number] [address] [place] [address], [place] [address] May, [facility] [address] [id number] [address] [place] [address], [place] [address] May, [facility] [address] [id number] [address] [place] [address], [place] [address] May, [facility] [address] [id number] [address] [place] [address], [place] [address] 15 Apr, 2012 [facility] [address] [id number] [address] [place] [address], [place] [address] 15 Apr, 2012 [facility] [address] [id number] [address] [place] [address], [place] [address] 15 Apr, 2012 [facility] [address] [id number] [address] [place] [address], [place] [address] 15 Apr, 2012 [facility] [address] [id number] [address] [place] [address], [place] [address] Apr, [facility] [address] [id number] [address] [place] [address], [place] [address] Apr, [facility] [address] [id number] [address] [place] [address], [place] [address] Apr, [facility] [address] [id number] [address] [place] [address], [place] [address] Apr, [facility] [address] [id number] [address] [place] [address], [place] [address] Jan, [facility] [address] [id number] [address] [place] [address], [place] [address] Jan, [facility] [address] [id number] [address] [place] [address], [place] [address] Dec, [facility] [address] [id number] [address] [place] [address], [place] [address] November, [facility] [address] [id number] [address] [place] [address], [place] [address] Oct, [facility] [address] [id number] [address] [place] [address], [place] [address] Oct, [facility] [address] [id number] [address] [place] [address], [place] [address] Oct, [facility] [address] [id number] [address] [place] [address], [place] [address] Oct, [facility] [address] [id number] [address] [place] [address], [place] [address] Sep, [facility] [address] [id number] [address] [place] [address], [place] [address] Sep, [facility] [address] [id number] [address] [place] [address], [place] [address] 26 Sep, 2011 [facility] [place] [address] [id number] [address] [place] [address], [place] [address] 13 Jun, 2011 [facility] [place] [address] [id number] [address] [place] [address], [place] [address] 13 Jun, 2011 [facility] [address] [id number] [address] [place] [address], [place] [address] 22 May, 2011 [facility] [place] [address] [id number] [address] [place] [address], [place] [address] 14 Jan, 2011 [facility] [place] [address] [id number] [address] [place] [address], [place] [address] 19 Nov, 2010 [facility] [place] [address] [id number] [address] [place] [address], [place] [address] 14 Oct, 2010 [facility] [address] [id number] [address] [place] [address], [place] [address] 16 Sep, 2010 [facility] [address] [id number] [address] [place] [address], [place] [address] 30 May, 2010 [facility] [place] [address] [id number] [address] [place] [address], [place] [address] 19 Jul, 2009 [facility] [address] [id number] [address] [place] [address], [place] [address] 23 Jun, 2009 [facility] [address] [id number] [address] [place] [address], [place] [address] 23 Jun, 2009 [facility] [address] [id number] [address] [place] [address], [place] [address] 15 Jun, 2009 [facility] [address] [id number] [address] [place] [address], [place] [address] 15 Jun, 2009 [facility] [address] [id number] [address] [place] [address], [place] [address] 17 May, 2009 [facility] [address] [id number] [address] [place] [address], [place] [address] May, [facility] [address] [facility] [id number] [address] [place] [address] Apr, [facility] [address] [facility] [id number] [address] [place] [address] Apr, [facility] [address] [facility] [id number] [address] [place] [address] Apr, IMMUNIZATIONS No Known Immunizations SOCIAL HISTORY [...] right 06/1996 Surgical History multiple knee injections ([id number]) Surgical History left knee replacement 06/11 Hospitalization History Knee surgery- x 3 days 06/11
--- OUTSIDE RECORDS SUMMARY | 2019-12-16 20:32 | XMS REPORT ---
Author Author Patti Guzman Doctor Organization [facility] Address Unknown Phone Unavailable Care Team Providers Care Tipple Boss Name Role Phone Migration, Doctor Unavailable Unavailable PROBLEMS Type Condition ICD9-CM Code [id number] Code Onset Dates Condition S tatus SNOMED Code Problem ADD (attention deficit disorder) F90.0 Active 847424322 Problem Drug abuse counseling and surveillance of drug abuser Z71.51 Active 680522232 Problem Insomnia G47.00 Active 152071123 Problem Joint pain M25.50 Active 19328083 Problem Edema, unspecified type R60.9 Active 965747047 Problem Episode of recurrent major d epressive disorder, unspecified depression episode severity F33.9 Active 909006422 Problem Venous insufficiency (chronic) (peripheral) I87.2 Active [id number] Problem Carpal tunnel syndrome on left G56.02 Active [id number] Problem Manic bipolar I disorder in partial remission F31. 73 Active 19648733 Problem Bipolar affective disorder, currently depressed, moderate F31.32 Active 925900857 Problem Social anxiety disorder F40.10 Active 44068530 Problem Other chronic pain G89.29 Active 8 6511306 Problem Stimulant abuse F15.10 Active 4415 14052 Problem Bipolar II disorder F31.81 Active 69505388 Problem ADD (attention deficit disorder) without hyperactivity F98.8 Active 35908314 ALLERGIES No Information ENCOUNTERS Encounter Location Date Diagnosis [facility] [address] [id number] [address] [place] [address] Feb, [facility] [address] [id number] [address] [place] [address] Feb, [facility] [address] [id number] [address] [place] [address] Feb, [facility] [address] [id number] [address] [place] [address] Jan, Bipolar affective disorder, currently depressed, moderate F31.32 [place] [address] [address] 16 Jan, 2019 Bipolar affective disorder, currently depressed, moderate F31.32 ; Social anxiety disorder F40.10 and Morbid obesity E66.01 [place] [address] [address] May, Screening for lipid disorder s Z13.220 [place] [address] [address] May, Carpal tunnel syndrome on le ft G56.02 ; Social anxiety disorder F40.10 and Screening for lipid disorders Z13.220 [place] [address] [address] 11 Apr, 2018 Bipolar II disorder F31.81 ; Social anxiety disorder F40.10 ; ADD (attention deficit disorder) without hyperactivity F98.8 and BMI 45.0-49.9, adult Z68.42 [place] [address] [address] 05 Mar, 2018 [place] [address] [address] 17 Feb, 2018 BMI 45.0-49.9, adult Z68.42 ; Carpal tunnel syndrome on left G56.02 and Social anxiety disorder F40.10 [place] [address] [address] 09 Jan, 2018 Bipolar II disorder F31.81 ; ADD (attention deficit disorder) without hyperactivity F98.8 ; Social anxiety disorder F40.10 and Stimulant abuse F15.10 [place] [address] [address] Dec, Episode of recurrent major d epressive disorder, unspecified depression episode severity F33.9 ; Other chronic pain G89.29 ; Radiculopathy, lumbar region M54.16 ; Edema of lower extremity R60.0 and BMI 45.0-49.9, adult Z68.42 [place] [address] [id number] [address] [place] [address] Jun, [facility] [address] [id number] [address] [place] [address] Jan, Joint pain M25.50 [facility] [address] [id number] [address] [place] [address] Jan, Wellness examination Z00.00 ; Pain in right knee M25.561 ; Pain in left knee M25.562 ; Edema, unspecified type R60.9 and Drug abuse counseling and surveillance of drug abuser Z71.51 [facility] [address] [id number] [address] [place] [address] November, [facility] [address] [id number] [address] [place] [address] Oct, [facility] [address] [place] [id number] [address] [place] [address] Oct, ADD (attention deficit disor josselin) F90.0 ; Social anxiety disorder F40.10 and Manic bipolar I disorder in partial remission F31.73 [facility] [address] [id number] [address] [place] [address] Aug, [facility] [address] [id number] [address] [place] [address] Aug, [facility] [address] [id number] [address] [place] [address] Aug, [facility] [address] [id number] [address] [place] [address] Jul, [facility] [address] [id number] [address] [place] [address] Jul, [facility] [address] [id number] [address] [place] [address] Jul, [facility] [address] [id number] [address] [place] [address] Jun, [facility] [address] [id number] [address] [place] [address] Jun, [facility] [address] [id number] [address] [place] [address] Jun, [facility] [address] [id number] [address] [place] [address] Jun, [facility] [address] [id number] [address] [place] [address] May, Joint pain M25.50 ; ADD (att ention deficit disorder) F90.0 ; Edema R60.9 and Insomnia G47.00 [facility] [address] [id number] [address] [place] [address] May, [facility] [address] [id number] [address] [place] [address] May, [facility] [address] [id number] [address] [place] [address] May, [facility] [address] [id number] [address] [place] [address] May, Left wrist pain M25.532 ; Si nusitis J32.9 and Drug abuse counseling and surveillance of drug abuser Z71.51 [facility] [address] [id number] [address] [place] [address] Apr, [facility] [address] [id number] [address] [place] [address] Apr, [facility] [address] [id number] [address] [place] [address] Apr, [facility] [address] [id number] [address] [place] [address] Apr, [facility] [address] [id number] [address] [place] [address] Apr, [facility] [address] [id number] [address] [place] [address] Apr, [facility] [address] [id number] [address] [place] [address] Apr, [facility] [address] [id number] [address] [place] [address] Mar, Unspecified venous (peripher al) insufficiency 459.81 ; Bipolar I disorder, most recent episode (or current) manic, moderate 296.42 ; Social phobia 300.23 ; Attention deficit disorder of childhood without mention of hyperactivity 314.00 ; Pain in joint, lower leg 719.46 ; Thrombosis 453.9 and Chronic pain 338.29 [facility] [address] [id number] [address] [place] [address] Mar, [facility] [address] [id number] [address] [place] [address] Mar, [facility] [address] [id number] [address] [place] [phone] Mar, [facility] [address] [id number] [address] [place] [phone] Mar, [facility] [address] [id number] [address] [place] [address] Mar, [facility] [address] [id number] [address] [place] [phone] Mar, [facility] [address] [id number] [address] [place] [address] Mar, Manic bipolar I disorder in partial remission 296.45 ; Social phobia 300.23 and Attention deficit disorder of childhood without mention of hyperactivity 314.00 [facility] [address] [id number] [address] [place] [address] Mar, [facility] [address] [id number] [address] [place] [address] Feb, [facility] [address] [id number] [address] [place] [address] Feb, Thrombosis 453.9 ; Unspecifi ed venous (peripheral) insufficiency 459.81 ; Bipolar I disorder, most recent episode (or current) manic, moderate 296.42 ; Social phobia 300.23 ; Attention deficit disorder of childhood without mention of hyperactivity 314.00 ; Pain in joint, lower leg 719.46 and Edema 782.3 [place] [address] [place] [id number] [address] [place] [phone] Feb, [place] [address] [id number] [address] [place] [address] Feb, Social phobia 300.23 ; Atten tion deficit disorder of childhood without mention of hyperactivity 314.00 and Bipolar I disorder, most recent episode manic, in partial remission 296.45 [place] [address] [place] [id number] [address] [place] [phone] Jan, [place] [address] [place] [id number] [address] [place] [address] Jan, [place] [address] [place] [id number] [address] [place] [address] Jan, Unspecified venous (peripher al) insufficiency 459.81 and Thrombophlebitis 451.9 [place] [address] [place] [id number] [address] [place] [address] Jan, [place] [address] [place] [id number] [address] [place] [address] Dec, Headache 784.0 and Back pain 724.5 [place] [address] [id number] [address] [place] [address] Dec, [place] [address] [place] [id number] [address] [place] [address] Dec, Bipolar I disorder, most rec ent episode (or current) manic, moderate 296.42 ; Attention deficit disorder of childhood without mention of hyperactivity 314.00 and Social phobia 300.23 [place] [address] [place] [id number] [address] [place] [phone] November, [facility] [address] [id number] [address] [place] [address], [place] [address] November, [facility] [address] [id number] [address] [place] [address], [place] [address] Oct, [facility] [address] [id number] [address] [place] [address], [place] [address] Oct, [facility] [address] [id number] [address] [place] [address], [place] [address] Sep, [facility] [address] [id number] [address] [place] [address], [place] [address] Sep, [facility] [address] [id number] [address] [place] [address], [place] [address] Aug, [facility] [address] [id number] [address] [place] [address], [place] [address] Aug, [facility] [address] [id number] [address] [place] [address], [place] [address] Aug, [facility] [address] [id number] [address] [place] [address], [place] [address] Aug, [facility] [address] [id number] [address] [place] [address], [place] [address] Aug, [facility] [address] [id number] [address] [place] [address], [place] [address] Aug, [facility] [address] [id number] [address] [place] [address], [place] [address] Aug, [facility] [address] [id number] [address] [place] [address], [place] [address] Jul, [facility] [address] [id number] [address] [place] [address], [place] [address] Jul, [facility] [address] [id number] [address] [place] [address], [place] [address] Jun, [facility] [address] [id number] [address] [place] [address], [place] [address] Jun, [facility] [address] [id number] [address] [place] [address], [place] [address] May, [facility] [address] [id number] [address] [place] [address], [place] [address] May, [facility] [address] [id number] [address] [place] [address], [place] [address] May, [facility] [address] [id number] [address] [place] [address], [place] [address] May, [facility] [address] [id number] [address] [place] [address], [place] [address] May, [facility] [address] [id number] [address] [place] [address], [place] [address] May, [facility] [address] [id number] [address] [place] [address], [place] [address] Apr, [facility] [address] [id number] [address] [place] [address], [place] [address] Apr, [facility] [address] [id number] [address] [place] [address], [place] [address] Apr, [facility] [address] [id number] [address] [place] [address], [place] [address] Apr, [facility] [address] [id number] [address] [place] [address], [place] [address] 22 Mar, 2014 [facility] [address] [id number] [address] [place] [address], [place] [address] 22 Mar, 2014 [facility] [address] [id number] [address] [place] [address], [place] [address] 19 Mar, 2014 [facility] [address] [id number] [address] [place] [address], [place] [address] 16 Mar, 2014 [facility] [address] [id number] [address] [place] [address], [place] [address] 16 Mar, 2013 [facility] [address] [id number] [address] [place] [address], [place] [address] 15 Mar, 2013 [facility] [address] [id number] [address] [place] [address], [place] [address] 11 Mar, 2013 [facility] [address] [id number] [address] [place] [address], [place] [address] 11 Mar, 2013 [facility] [address] [id number] [address] [place] [address], [place] [address] 11 Mar, 2013 [facility] [address] [id number] [address] [place] [address], [place] [address] 11 Mar, 2013 [facility] [address] [id number] [address] [place] [address], [place] [address] 10 Mar, 2013 [facility] [address] [id number] [address] [place] [address], [place] [address] 09 Mar, 2013 [facility] [address] [id number] [address] [place] [address], [place] [address] 09 Mar, 2013 [facility] [address] [id number] [address] [place] [address], [place] [address] 02 Mar, 2013 [facility] [address] [id number] [address] [place] [address], [place] [address] 02 Mar, 2013 [facility] [address] [id number] [address] [place] [address], [place] [address] Feb, [facility] [address] [id number] [address] [place] [address], [place] [address] Feb, [facility] [address] [id number] [address] [place] [address], [place] [address] Feb, [facility] [address] [id number] [address] [place] [address], [place] [address] Feb, [facility] [address] [id number] [address] [place] [address], [place] [address] 14 Feb, 2014 [facility] [address] [id number] [address] [place] [address], [place] [address] Feb, 2013 [facility] [address] [id number] [address] [place] [address], [place] [address] Feb, 2013 [facility] [address] [id number] [address] [place] [address], [place] [address] Feb, [facility] [address] [id number] [address] [place] [address], [place] [address] Feb, 2013 [facility] [address] [id number] [address] [place] [address], [place] [address] Feb, 2013 [facility] [address] [id number] [address] [place] [address], [place] [address] Feb, [facility] [address] [id number] [address] [place] [address], [place] [address] Feb, [facility] [address] [id number] [address] [place] [address], [place] [address] Feb, [facility] [address] [id number] [address] [place] [address], [place] [address] Feb, [facility] [address] [id number] [address] [place] [address], [place] [address] Jan, [facility] [address] [id number] [address] [place] [address], [place] [address] Jan, [facility] [address] [id number] [address] [place] [address], [place] [address] Jan, 2013 [facility] [address] [id number] [address] [place] [address], [place] [address] Jan, [facility] [address] [id number] [address] [place] [address], [place] [address] Jan, [facility] [address] [id number] [address] [place] [address], [place] [address] Jan, [facility] [address] [id number] [address] [place] [address], [place] [address] Jan, 2013 [facility] [address] [id number] [facility] [place] [address] Dec, [facility] [address] [id number] [facility] [place] [address] Dec, [facility] [address] [id number] [facility] [place] [address] Dec, [facility] [address] [id number] [facility] [place] [address] Dec, [facility] [address] [id number] [facility] [place] [address] Dec, [facility] [address] [id number] [address] [place] [address], [place] [address] Dec, [facility] [address] [id number] [address] [place] [address], [place] [address] Dec, [facility] [address] [id number] [address] [place] [address], [place] [address] Dec, [facility] [address] [id number] [address] [place] [address], [place] [address] Dec, [facility] [address] [id number] [address] [place] [address], [place] [address] November, [facility] [address] [id number] [address] [place] [address], [place] [address] November, [facility] [address] [id number] [address] [place] [address], [place] [address] November, [facility] [address] [id number] [address] [place] [address], [place] [address] November, [facility] [address] [id number] [address] [place] [address], [place] [address] November, [facility] [address] [id number] [address] [place] [address], [place] [address] November, [facility] [address] [id number] [address] [place] [address], [place] [address] November, [facility] [address] [id number] [facility] [place] [address] November, [facility] [address] [id number] [address] [place] [address], [place] [address] November, [facility] [address] [id number] [address] [place] [address], [place] [address] November, [facility] [address] [id number] [address] [place] [address], [place] [address] November, [facility] [address] [id number] [address] [place] [address], [place] [address] November, [facility] [address] [id number] [address] [place] [address], [place] [address] November, [facility] [address] [id number] [address] [place] [address], [place] [address] November, [facility] [address] [id number] [address] [place] [address], [place] [address] Oct, [facility] [address] [id number] [address] [place] [address], [place] [address] Oct, [facility] [address] [id number] [address] [place] [address], [place] [address] Oct, [facility] [address] [id number] [address] [place] [address], [place] [address] Oct, [facility] [address] [id number] [address] [place] [address], [place] [address] Oct, [facility] [address] [id number] [address] [place] [address], [place] [address] Oct, [facility] [address] [id number] [address] [place] [address], [place] [address] Sep, [facility] [address] [id number] [address] [place] [address], [place] [address] Sep, [facility] [address] [id number] [address] [place] [address], [place] [address] Sep, [facility] [address] [id number] [address] [place] [address], [place] [address] Sep, [facility] [address] [id number] [address] [place] [address], [place] [address] Aug, [facility] [address] [id number] [address] [place] [address], [place] [address] Aug, [facility] [address] [id number] [address] [place] [address], [place] [address] Aug, [facility] [address] [id number] [address] [place] [address], [place] [address] Aug, [facility] [address] [id number] [address] [place] [address], [place] [address] Jul, [facility] [address] [id number] [address] [place] [address], [place] [address] Jul, [facility] [address] [id number] [address] [place] [address], [place] [address] Jul, [facility] [address] [id number] [address] [place] [address], [place] [address] Jul, [facility] [address] [id number] [address] [place] [address], [place] [address] Jul, [facility] [address] [id number] [address] [place] [address], [place] [address] Jul, [facility] [address] [id number] [address] [place] [address], [place] [address] Jul, [facility] [address] [id number] [address] [place] [address], [place] [address] Jun, [facility] [address] [id number] [address] [place] [address], [place] [address] Jun, [facility] [address] [id number] [address] [place] [address], [place] [address] Jun, [facility] [address] [id number] [address] [place] [address], [place] [address] 17 Jun, 2013 [facility] [address] [id number] [address] [place] [address], [place] [address] Jun, [facility] [address] [id number] [address] [place] [address], [place] [address] Jun, [facility] [address] [id number] [address] [place] [address], [place] [address] May, [facility] [address] [id number] [address] [place] [address], [place] [address] 07 May, 2013 [facility] [address] [id number] [address] [place] [address], [place] [address] 15 Apr, 2013 [facility] [address] [id number] [address] [place] [address], [place] [address] 15 Apr, 2013 [facility] [address] [id number] [address] [place] [id number] 10 Apr, 2013 [facility] [address] [id number] [address] [place] [address], [place] [address] 10 Apr, 2013 [facility] [address] [id number] [address] [place] [id number] 08 Apr, 2013 [facility] [address] [id number] [address] [place] [id number] 24 Mar, 2013 [facility] [address] [id number] [address] [place] [id number] 19 Mar, 2013 [facility] [address] [id number] [address] [place] [address], [place] [address] 12 Mar, 2013 [facility] [address] [id number] [address] [place] [id number] 10 Mar, 2013 [facility] [address] [id number] [address] [place] [id number] 16 Feb, 2013 [facility] [address] [id number] [address] [place] [id number] Feb, [facility] [address] [id number] [address] [place] [address], [place] [address] Jan, [facility] [address] [id number] [address] [place] [address], [place] [address] Jan, [facility] [address] [id number] [address] [place] [address], [place] [address] Jan, [facility] [address] [id number] [address] [place] [address], [place] [address] Jan, [facility] [address] [id number] [address] [place] [address], [place] [address] Dec, [facility] [address] [id number] [address] [place] [address], [place] [address] Dec, [facility] [address] [id number] [address] [place] [address], [place] [address] Dec, [facility] [address] [id number] [address] [place] [address], [place] [address] Dec, [facility] [address] [id number] [address] [place] [address], [place] [address] November, [facility] [address] [id number] [address] [place] [address], [place] [address] November, [facility] [address] [id number] [address] [place] [address], [place] [address] Oct, [facility] [address] [id number] [address] [place] [address], [place] [address] Sep, [facility] [address] [id number] [address] [place] [address], [place] [address] Sep, [facility] [address] [id number] [address] [place] [address], [place] [address] 14 Aug, 2012 [facility] [address] [id number] [address] [place] [address], [place] [address] Aug, [facility] [address] [id number] [address] [place] [address], [place] [address] Jul, [facility] [address] [id number] [address] [place] [address], [place] [address] Jul, [facility] [address] [id number] [address] [place] [address], [place] [address] Jul, [facility] [address] [id number] [address] [place] [address], [place] [address] Jun, [facility] [address] [id number] [address] [place] [address], [place] [address] Jun, [facility] [address] [id number] [address] [place] [address], [place] [address] Jun, [facility] [address] [id number] [address] [place] [address], [place] [address] Jun, [facility] [address] [id number] [address] [place] [address], [place] [address] May, [facility] [address] [id number] [address] [place] [address], [place] [address] May, [facility] [address] [id number] [address] [place] [address], [place] [address] May, [facility] [address] [id number] [address] [place] [address], [place] [address] May, [facility] [address] [id number] [address] [place] [address], [place] [address] 14 May, 2012 [facility] [address] [id number] [address] [place] [address], [place] [address] May, [facility] [address] [id number] [address] [place] [address], [place] [address] May, [facility] [address] [id number] [address] [place] [address], [place] [address] 15 Apr, 2012 [facility] [address] [id number] [address] [place] [address], [place] [address] 15 Apr, 2012 [facility] [address] [id number] [address] [place] [address], [place] [address] Apr, [facility] [address] [id number] [address] [place] [address], [place] [address] Apr, [facility] [address] [id number] [address] [place] [address], [place] [address] Apr, [facility] [address] [id number] [address] [place] [address], [place] [address] Apr, [facility] [address] [id number] [address] [place] [address], [place] [address] Apr, [facility] [address] [id number] [address] [place] [address], [place] [address] Apr, [facility] [address] [id number] [address] [place] [address], [place] [address] Jan, [facility] [address] [id number] [address] [place] [address], [place] [address] Jan, [facility] [address] [id number] [address] [place] [address], [place] [address] Dec, [facility] [address] [id number] [address] [place] [address], [place] [address] November, [facility] [address] [id number] [address] [place] [address], [place] [address] Oct, [facility] [address] [id number] [address] [place] [id number] Oct, [facility] [address] [id number] [address] [place] [address], [place] [address] Oct, [facility] [address] [id number] [address] [place] [address], [place] [address] Oct, [facility] [address] [id number] [address] [place] [address], [place] [address] Sep, [facility] [address] [id number] [address] [place] [address], [place] [address] 26 Sep, 2011 [facility] [address] [id number] [address] [place] [address], [place] [address] 26 Sep, 2011 [facility] [address] [id number] [address] [place] [address], [place] [address] 13 Jun, 2011 [facility] [address] [id number] [address] [place] [address], [place] [address] 13 Jun, 2011 [facility] [address] [id number] [address] [place] [address], [place] [address] 22 May, 2011 [facility] [address] [id number] [address] [place] [address], [place] [address] 14 Jan, 2011 [facility] [address] [id number] [address] [place] [address], [place] [address] 19 Nov, 2010 [facility] [address] [id number] [address] [place] [address], [place] [address] 14 Oct, 2010 [facility] [address] [id number] [address] [place] [address], [place] [address] 16 Sep, 2010 [facility] [address] [id number] [address] [place] [address], [place] [address] 30 May, 2010 [facility] [address] [id number] [address] [place] [address], [place] [address] 19 Jul, 2009 [facility] [address] [id number] [address] [place] [address], [place] [address] 23 Jun, 2009 [facility] [address] [id number] [address] [place] [address], [place] [address] 23 Jun, 2009 [facility] [address] [id number] [address] [place] [address], [place] [address] 15 Jun, 2009 [facility] [address] [id number] [address] [place] [address], [place] [address] 15 Jun, 2009 [facility] [address] [id number] [address] [place] [address], [place] [address] May, [facility] [address] [id number] [address] [place] [id number] May, [facility] [address] [id number] [address] [place] [id number] Apr, [facility] [address] [id number] [address] [place] [id number] Apr, [facility] [address] [id number] [address] [place] [id number] Apr, IMMUNIZATIONS No Known Immunizations SOCIAL HISTORY [...] right 06/1996 Surgical History multiple knee injections ([id number]) Surgical History left knee replacement 06/11 Hospitalization History Knee surgery- x 3 days 06/11
--- OUTSIDE RECORDS SUMMARY | 2019-12-16 20:32 | XMS REPORT ---
Author Author Patti SANTOS [facility] Address [address] [place] [address] Care Team Providers Care Hosiery Pairer Name Role Phone PALOMO SANTOS Unavailable PROBLEMS Type Condition ICD9-CM Code CQN85-IZ Code Onset Dates Condition S tatus SNOMED Code Problem ADD (attention deficit disorder) F90.0 Active 088763710 Problem Drug abuse counseling and surveillance of drug abuser Z71.51 Active 403722147 Problem Insomnia G47.00 Active 642986721 Problem Joint pain M25.50 Active 13007569 Problem Edema, unspecified type R60.9 Active 512695854 Problem Episode of recurrent major d epressive disorder, unspecified depression episode severity F33.9 Active 510501467 Problem Venous insufficiency (chronic) (peripheral) I87.2 Active [id number] Problem Carpal tunnel syndrome on left G56.02 Active [id number] Problem Manic bipolar I disorder in partial remission F31. 73 Active 45770515 Problem Bipolar affective disorder, currently depressed, moderate F31.32 Active 776862185 Problem Social anxiety disorder F40.10 Active 04195486 Problem Other chronic pain G89.29 Active 8 2316001 Problem Stimulant abuse F15.10 Active 0535 66739 Problem Bipolar II disorder F31.81 Active 83992475 Problem ADD (attention deficit disorder) without hyperactivity F98.8 Active 29564501 ALLERGIES No Information ENCOUNTERS Encounter Location Date Diagnosis [facility] [place] [address] [facility] [id number] [address] [place] [phone] Feb, [facility] [place] [address] [facility] [id number] [address] [place] [phone] Feb, [facility] [place] [address] [facility] [id number] [address] [place] [phone] Jan, Bipolar affective disorder, currently depressed, moderate F31.32 [place] [address] [address] 16 Jan, 2019 Bipolar affective disorder, currently depressed, moderate F31.32 ; Social anxiety disorder F40.10 and Morbid obesity E66.01 [place] [address] [address] May, Screening for lipid disorder s Z13.220 [place] [address] [address] May, Carpal tunnel syndrome on le ft G56.02 ; Social anxiety disorder F40.10 and Screening for lipid disorders Z13.220 [place] [address] [address] 11 Apr, 2018 Bipolar II disorder F31.81 ; Social anxiety disorder F40.10 ; ADD (attention deficit disorder) without hyperactivity F98.8 and BMI 45.0-49.9, adult Z68.42 [place] [address] [address] 05 Mar, 2018 [place] [address] [address] 17 Feb, 2018 BMI 45.0-49.9, adult Z68.42 ; Carpal tunnel syndrome on left G56.02 and Social anxiety disorder F40.10 [place] [address] [address] 09 Jan, 2018 Bipolar II disorder F31.81 ; ADD (attention deficit disorder) without hyperactivity F98.8 ; Social anxiety disorder F40.10 and Stimulant abuse F15.10 [place] [address] [address] Dec, Episode of recurrent major d epressive disorder, unspecified depression episode severity F33.9 ; Other chronic pain G89.29 ; Radiculopathy, lumbar region M54.16 ; Edema of lower extremity R60.0 and BMI 45.0-49.9, adult Z68.42 [place] [id number] [address] [place] [phone] Jun, [facility] [place] [address] [facility] [id number] [address] [place] [address] Jan, Joint pain M25.50 [facility] [place] [address] [facility] [id number] [address] [place] [phone] Jan, Wellness examination Z00.00 ; Pain in right knee M25.561 ; Pain in left knee M25.562 ; Edema, unspecified type R60.9 and Drug abuse counseling and surveillance of drug abuser Z71.51 [facility] [place] [address] [facility] [id number] [address] [place] [id number] November, [facility] [place] [address] [facility] [id number] [address] [place] [phone] Oct, [facility] [place] [address] [place] [id number] [address] [place] [phone] Oct, ADD (attention deficit disor josselin) F90.0 ; Social anxiety disorder F40.10 and Manic bipolar I disorder in partial remission F31.73 [facility] [place] [address] [facility] [id number] [address] [place] [phone] Aug, [facility] [place] [address] [facility] [id number] [address] [place] [phone] Aug, [facility] [place] [address] [facility] [id number] [address] [place] [phone] Aug, [facility] [place] [address] [facility] [id number] [address] [place] [phone] Jul, [facility] [place] [address] [facility] [id number] [address] [place] [id number] Jul, [facility] [place] [address] [facility] [id number] [address] [place] [phone] Jul, [facility] [place] [address] [facility] [id number] [address] [place] [phone] Jun, [facility] [place] [address] [facility] [id number] [address] [place] [phone] Jun, [facility] [place] [address] [facility] [id number] [address] [place] [phone] Jun, [facility] [place] [address] [facility] [id number] [address] [place] [phone] Jun, [facility] [place] [address] [place] [id number] [address] [place] [phone] May, Joint pain M25.50 ; ADD (att ention deficit disorder) F90.0 ; Edema R60.9 and Insomnia G47.00 [facility] [place] [address] [facility] [id number] [address] [place] [phone] May, [facility] [place] [address] [place] [id number] [place] [phone] May, [facility] [place] [address] [place] [id number] [place] [phone] May, [facility] [place] [address] [address] May, Left wrist pain M25.532 ; Si nusitis J32.9 and Drug abuse counseling and surveillance of drug abuser Z71.51 [facility] [place] [address] [place] [id number] [address] [place] [phone] Apr, [facility] [place] [address] [place] [id number] [address] [place] [phone] Apr, [facility] [place] [address] [facility] [id number] [address] [place] [phone] Apr, [facility] [place] [address] [place] [id number] [address] [place] [phone] Apr, [facility] [place] [address] [facility] [id number] [address] [place] [phone] Apr, [facility] [place] [address] [place] [id number] [address] [place] [phone] Apr, [facility] [place] [address] [id number] [address] [place] [phone] Apr, [facility] [place] [address] [id number] [address] [place] [phone] Mar, Unspecified venous (peripher al) insufficiency 459.81 ; Bipolar I disorder, most recent episode (or current) manic, moderate 296.42 ; Social phobia 300.23 ; Attention deficit disorder of childhood without mention of hyperactivity 314.00 ; Pain in joint, lower leg 719.46 ; Thrombosis 453.9 and Chronic pain 338.29 [facility] [place] [address] [id number] [address] [place] [phone] Mar, [facility] [place] [address] [id number] [address] [place] [phone] Mar, [facility] [place] [address] [facility] [id number] [address] [place] [phone] Mar, [facility] [place] [address] [id number] [address] [place] [phone] Mar, [facility] [place] [address] [facility] [id number] [address] [place] [phone] Mar, [facility] [place] [address] [facility] [id number] [address] [place] [phone] Mar, [facility] [place] [address] [facility] [id number] [address] [place] [phone] Mar, Manic bipolar I disorder in partial remission 296.45 ; Social phobia 300.23 and Attention deficit disorder of childhood without mention of hyperactivity 314.00 [facility] [place] [address] [id number] [address] [place] [phone] Mar, [facility] [place] [address] [facility] [id number] [address] [place] [phone] Feb, [facility] [place] [address] [facility] [id number] [address] [place] [phone] Feb, Thrombosis 453.9 ; Unspecifi ed venous (peripheral) insufficiency 459.81 ; Bipolar I disorder, most recent episode (or current) manic, moderate 296.42 ; Social phobia 300.23 ; Attention deficit disorder of childhood without mention of hyperactivity 314.00 ; Pain in joint, lower leg 719.46 and Edema 782.3 [facility] [place] [address] [facility] [id number] [address] [place] [phone] Feb, [facility] [place] [address] [facility] [id number] [address] [place] [phone] Feb, Social phobia 300.23 ; Atten tion deficit disorder of childhood without mention of hyperactivity 314.00 and Bipolar I disorder, most recent episode manic, in partial remission 296.45 [place] [address] [place] [id number] [address] [place] [phone] Jan, [place] [address] [place] [id number] [address] [place] [phone] Jan, [place] [address] [place] [id number] [address] [place] [phone] Jan, Unspecified venous (peripher al) insufficiency 459.81 and Thrombophlebitis 451.9 [place] [address] [place] [id number] [address] [place] [phone] Jan, [place] [address] [place] [id number] [address] [place] [phone] Dec, Headache 784.0 and Back pain 724.5 [place] [address] [place] [id number] [address] [place] [phone] Dec, [place] [address] [place] [id number] [address] [place] [phone] Dec, Bipolar I disorder, most rec ent episode (or current) manic, moderate 296.42 ; Attention deficit disorder of childhood without mention of hyperactivity 314.00 and Social phobia 300.23 [place] [address] [place] [id number] [address] [place] [phone] November, [facility] [address] [id number] [address] [place] [address], [place] [address] November, [facility] [address] [id number] [address] [place] [address], [place] [address] Oct, [facility] [address] [id number] [address] [place] [address], [place] [address] Oct, [facility] [address] [id number] [address] [place] [address], [place] [address] Sep, [facility] [address] [id number] [address] [place] [address], [place] [address] Sep, [facility] [address] [id number] [address] [place] [address], [place] [address] Aug, [facility] [address] [id number] [address] [place] [address], [place] [address] Aug, [facility] [address] [id number] [address] [place] [address], [place] [address] Aug, [facility] [address] [id number] [address] [place] [address], [place] [address] Aug, [facility] [address] [id number] [address] [place] [address], [place] [address] Aug, [facility] [address] [id number] [address] [place] [address], [place] [address] Aug, [facility] [address] [id number] [address] [place] [address], [place] [address] Aug, [facility] [address] [id number] [address] [place] [address], [place] [address] Jul, [facility] [address] [id number] [address] [place] [address], [place] [address] Jul, [facility] [address] [id number] [address] [place] [address], [place] [address] Jun, [facility] [address] [id number] [address] [place] [address], [place] [address] Jun, [facility] [address] [id number] [address] [place] [address], [place] [address] May, [facility] [address] [id number] [address] [place] [address], [place] [address] May, [facility] [address] [id number] [address] [place] [address], [place] [address] May, [facility] [address] [id number] [address] [place] [address], [place] [address] May, [facility] [address] [id number] [address] [place] [address], [place] [address] May, [facility] [address] [id number] [address] [place] [address], [place] [address] May, [facility] [address] [id number] [address] [place] [address], [place] [address] Apr, [facility] [address] [id number] [address] [place] [address], [place] [address] Apr, [facility] [address] [id number] [address] [place] [address], [place] [address] Apr, [facility] [address] [id number] [address] [place] [address], [place] [address] Apr, [facility] [address] [id number] [address] [place] [address], [place] [address] 22 Mar, 2014 [facility] [address] [id number] [address] [place] [address], [place] [address] 22 Mar, 2013 [facility] [address] [id number] [address] [place] [address], [place] [address] 19 Mar, 2014 [facility] [address] [id number] [address] [place] [address], [place] [address] 16 Mar, 2013 [facility] [address] [id number] [address] [place] [address], [place] [address] 16 Mar2013 [facility] [address] [id number] [facility] [place] [address] 15 Mar, 2013 [facility] [address] [id number] [facility] [place] [address] 11 Mar, 2013 [facility] [address] [id number] [facility] [place] [address] 11 Mar, 2013 [facility] [address] [id number] [address] [place] [address], [place] [address] 11 Mar, 2013 [facility] [address] [id number] [address] [place] [address], [place] [address] 11 Mar, 2013 [facility] [address] [id number] [address] [place] [address], [place] [address] 10 Mar, 2013 [facility] [address] [id number] [address] [place] [address], [place] [address] 09 Mar, 2013 [facility] [address] [id number] [address] [place] [address], [place] [address] 09 Mar, 2013 [facility] [address] [id number] [address] [place] [address], [place] [address] Mar, 2013 [facility] [address] [id number] [address] [place] [address], [place] [address] Mar, 2013 [facility] [address] [id number] [address] [place] [address], [place] [address] Feb, [facility] [address] [id number] [address] [place] [address], [place] [address] Feb, [facility] [address] [id number] [address] [place] [address], [place] [address] Feb, [facility] [address] [id number] [address] [place] [address], [place] [address] Feb, [facility] [address] [id number] [address] [place] [address], [place] [address] 14 Feb, 2014 [facility] [address] [id number] [address] [place] [address], [place] [address] Feb, [facility] [address] [id number] [facility] [place] [address] Feb, [facility] [address] [id number] [address] [place] [address], [place] [address] Feb, [facility] [address] [id number] [address] [place] [address], [place] [address] Feb, 2013 [facility] [address] [id number] [address] [place] [address], [place] [address] Feb, [facility] [address] [id number] [address] [place] [address], [place] [address] Feb, [facility] [address] [id number] [address] [place] [address], [place] [address] Feb, [facility] [address] [id number] [address] [place] [address], [place] [address] Feb, [facility] [address] [id number] [address] [place] [address], [place] [address] Feb, [facility] [address] [id number] [address] [place] [address], [place] [address] Jan, [facility] [address] [id number] [address] [place] [address], [place] [address] Jan, [facility] [address] [id number] [address] [place] [address], [place] [address] Jan, [facility] [address] [id number] [address] [place] [address], [place] [address] Jan, [facility] [address] [id number] [address] [place] [address], [place] [address] Jan, [facility] [address] [id number] [address] [place] [address], [place] [address] Jan, [facility] [address] [id number] [address] [place] [address], [place] [address] Jan, [facility] [address] [id number] [facility] [place] [address] Dec, [facility] [address] [id number] [address] [place] [address], [place] [address] Dec, [facility] [address] [id number] [address] [place] [address], [place] [address] Dec, [facility] [address] [id number] [address] [place] [address], [place] [address] Dec, [facility] [address] [id number] [address] [place] [address], [place] [address] Dec, [facility] [address] [id number] [address] [place] [address], [place] [address] Dec, [facility] [address] [id number] [address] [place] [address], [place] [address] Dec, [facility] [address] [id number] [address] [place] [address], [place] [address] Dec, [facility] [address] [id number] [address] [place] [address], [place] [address] Dec, [facility] [address] [id number] [address] [place] [address], [place] [address] November, [facility] [address] [id number] [address] [place] [address], [place] [address] November, [facility] [address] [id number] [address] [place] [address], [place] [address] November, [facility] [address] [id number] [address] [place] [address], [place] [address] November, [facility] [address] [id number] [address] [place] [address], [place] [address] November, [facility] [address] [id number] [address] [place] [address], [place] [address] November, [facility] [address] [id number] [address] [place] [address], [place] [address] November, [facility] [address] [id number] [address] [place] [address], [place] [address] November, [facility] [address] [id number] [address] [place] [address], [place] [address] November, [facility] [address] [id number] [address] [place] [address], [place] [address] November, [facility] [address] [id number] [address] [place] [address], [place] [address] November, [facility] [address] [id number] [address] [place] [address], [place] [address] November, [facility] [address] [id number] [address] [place] [address], [place] [address] November, [facility] [address] [id number] [address] [place] [address], [place] [address] November, [facility] [address] [id number] [address] [place] [address], [place] [address] Oct, [facility] [address] [id number] [address] [place] [address], [place] [address] Oct, [facility] [address] [id number] [address] [place] [address], [place] [address] Oct, [facility] [address] [id number] [address] [place] [address], [place] [address] Oct, [facility] [address] [id number] [address] [place] [address], [place] [address] Oct, [facility] [address] [id number] [address] [place] [address], [place] [address] Oct, [facility] [address] [id number] [address] [place] [address], [place] [address] Sep, [facility] [address] [id number] [address] [place] [address], [place] [address] Sep, [facility] [address] [id number] [address] [place] [address], [place] [address] Sep, [facility] [address] [id number] [address] [place] [address], [place] [address] Sep, [facility] [address] [id number] [address] [place] [address], [place] [address] Aug, [facility] [address] [id number] [address] [place] [address], [place] [address] Aug, [facility] [address] [id number] [address] [place] [address], [place] [address] Aug, [facility] [address] [id number] [address] [place] [address], [place] [address] Aug, [facility] [address] [id number] [address] [place] [address], [place] [address] Jul, [facility] [address] [id number] [place] [address], [place] [address] Jul, [facility] [address] [id number] [address] [place] [address], [place] [address] Jul, [facility] [address] [id number] [address] [place] [address], [place] [address] Jul, [facility] [address] [id number] [address] [place] [address], [place] [address] Jul, [facility] [address] [id number] [address] [place] [address], [place] [address] Jul, [facility] [address] [id number] [address] [place] [address], [place] [address] Jul, [facility] [address] [id number] [address] [place] [address], [place] [address] Jun, [facility] [address] [id number] [address] [place] [address], [place] [address] Jun, [facility] [address] [id number] [address] [place] [address], [place] [address] Jun, [facility] [address] [id number] [address] [place] [address], [place] [address] 17 Jun, 2013 [facility] [address] [id number] [address] [place] [address], [place] [address] 13 Jun, 2013 [facility] [address] [id number] [address] [place] [address], [place] [address] 13 Jun, 2013 [facility] [address] [id number] [address] [place] [address], [place] [address] 07 May, 2013 [facility] [address] [id number] [address] [place] [address], [place] [address] 07 May, 2013 [facility] [address] [id number] [address] [place] [address], [place] [address] 15 Apr, 2013 [facility] [address] [id number] [address] [place] [address], [place] [address] 15 Apr, 2013 [facility] [address] [id number] [address] [place] [address], [place] [address] 10 Apr, 2013 [facility] [address] [id number] [address] [place] [address], [place] [address] 10 Apr, 2013 [facility] [address] [id number] [address] [place] [address], [place] [address] 08 Apr, 2013 [facility] [address] [id number] [address] [place] [address], [place] [address] 24 Mar, 2013 [facility] [address] [id number] [address] [place] [address], [place] [address] 19 Mar, 2013 [facility] [address] [id number] [address] [place] [address], [place] [address] 12 Mar, 2013 [facility] [address] [id number] [address] [place] [address], [place] [address] 10 Mar, 2013 [facility] [address] [id number] [address] [place] [address], [place] [address] 16 Feb, 2013 [facility] [address] [id number] [address] [place] [address], [place] [address] Feb, [facility] [address] [id number] [address] [place] [address], [place] [address] Jan, [facility] [address] [id number] [address] [place] [address], [place] [address] Jan, [facility] [address] [id number] [address] [place] [address], [place] [address] Jan, [facility] [address] [id number] [address] [place] [address], [place] [address] Jan, [facility] [address] [id number] [address] [place] [address], [place] [address] Dec, [facility] [address] [id number] [address] [place] [address], [place] [address] Dec, [facility] [address] [id number] [address] [place] [address], [place] [address] Dec, [facility] [address] [id number] [address] [place] [address], [place] [address] Dec, [facility] [address] [id number] [address] [place] [address], [place] [address] November, [facility] [address] [id number] [address] [place] [address], [place] [address] November, [facility] [address] [id number] [address] [place] [address], [place] [address] Oct, [facility] [address] [id number] [address] [place] [address], [place] [address] Sep, [facility] [address] [id number] [address] [place] [address], [place] [address] Sep, [facility] [address] [id number] [address] [place] [address], [place] [address] 14 Aug, 2012 [facility] [address] [id number] [address] [place] [address], [place] [address] Aug, [facility] [address] [id number] [address] [place] [address], [place] [address] Jul, [facility] [address] [id number] [address] [place] [address], [place] [address] Jul, [facility] [address] [id number] [address] [place] [address], [place] [address] Jul, [facility] [address] [id number] [address] [place] [address], [place] [address] Jun, [facility] [address] [id number] [address] [place] [address], [place] [address] Jun, [facility] [address] [id number] [address] [place] [address], [place] [address] Jun, [facility] [address] [id number] [address] [place] [address], [place] [address] Jun, [facility] [address] [id number] [address] [place] [address], [place] [address] May, [facility] [address] [id number] [address] [place] [address], [place] [address] May, [facility] [address] [id number] [address] [place] [address], [place] [address] May, [facility] [address] [id number] [address] [place] [address], [place] [address] 14 May, 2012 [facility] [address] [id number] [address] [place] [address], [place] [address] 14 May, 2012 [facility] [address] [id number] [address] [place] [address], [place] [address] May, [facility] [address] [id number] [address] [place] [address], [place] [address] 06 May, 2012 [facility] [address] [id number] [address] [place] [address], [place] [address] 15 Apr, 2012 [facility] [address] [id number] [address] [place] [address], [place] [address] Apr, [facility] [address] [id number] [address] [place] [address], [place] [address] Apr, [facility] [address] [id number] [address] [place] [address], [place] [address] Apr, [facility] [address] [id number] [address] [place] [address], [place] [address] Apr, [facility] [address] [id number] [address] [place] [address], [place] [address] Apr, [facility] [address] [id number] [address] [place] [address], [place] [address] Apr, [facility] [address] [id number] [address] [place] [address], [place] [address] Apr, [facility] [address] [id number] [address] [place] [address], [place] [address] Jan, [facility] [address] [id number] [address] [place] [address], [place] [address] Jan, [facility] [address] [id number] [address] [place] [address], [place] [address] Dec, [facility] [address] [id number] [address] [place] [address], [place] [address] November, [facility] [address] [id number] [address] [place] [address], [place] [address] Oct, [facility] [address] [id number] [address] [place] [address] Oct, [facility] [address] [id number] [address] [place] [address], [place] [address] Oct, [facility] [address] [id number] [address] [place] [address], [place] [address] Oct, [facility] [address] [id number] [address] [place] [address], [place] [address] Sep, [facility] [address] [id number] [address] [place] [address] 26 Sep, 2011 [facility] [address] [id number] [address] [place] [address], [place] [address] 26 Sep, 2011 [facility] [address] [id number] [address] [place] [address], [place] [address] 13 Jun, 2011 [facility] [address] [id number] [address] [place] [address], [place] [address] 13 Jun, 2011 [facility] [address] [id number] [address] [place] [address], [place] [address] 22 May, 2011 [facility] [address] [id number] [address] [place] [address], [place] [address] 14 Jan, 2011 [facility] [address] [id number] [address] [place] [address], [place] [address] 19 Nov, 2010 [facility] [address] [id number] [address] [place] [address], [place] [address] 14 Oct, 2010 [facility] [address] [id number] [address] [place] [address], [place] [address] 16 Sep, 2010 [facility] [address] [id number] [address] [place] [address], [place] [address] 30 May, 2010 [facility] [address] [id number] [address] [place] [address], [place] [address] Jul, [facility] [address] [id number] [address] [place] [address], [place] [address] 23 Jun, 2009 [facility] [address] [id number] [address] [place] [address], [place] [address] 23 Jun, 2009 [facility] [address] [id number] [address] [place] [address], [place] [address] 15 Jun, 2009 [facility] [address] [id number] [address] [place] [address], [place] [address] 15 Jun, 2009 [facility] [address] [id number] [address] [place] [address], [place] [address] 17 May, 2009 [facility] [place] [address] [facility] [id number] [address] [place] [address] May, [facility] [place] [address] [facility] [id number] [address] [place] [address] Apr, [facility] [place] [address] [facility] [id number] [address] [place] [address] Apr, [facility] [place] [address] [facility] [id number] [address] [place] [address] Apr, IMMUNIZATIONS No Known Immunizations SOCIAL HISTORY Never Assessed REASON FOR VISIT PLAN OF CARE VITAL SIGNS Height 61 in 2014-05-30 Temperature 97 degrees Fahrenheit 2014-05-30 Heart Rate 92 bpm 2014-05-30 Respiratory Rate 18 2014-05-30 Blood pressure systolic 130 mmHg 2014-05-30 Blood pressure diastolic 90 mmHg 2014-05-30 MEDICATIONS Unknown Medications RESULTS No Results PROCEDURES Procedure Date Ordered Result Body Site THER/PROPH/DIAG INJ, SC/IM May 30, 2014 INJ ADRENLIN EPINEPH UP 1 ML AMPULE May 30, 2014 INSTRUCTIONS MEDICATIONS ADMINISTERED No Known Medications [...] right 06/1996 Surgical History multiple knee injections ([id number]) Surgical History left knee replacement 06/11 Hospitalization History Knee surgery- x 3 days 06/11
--- OUTSIDE RECORDS SUMMARY | 2019-12-16 20:32 | XMS REPORT ---
Author Author Patti HERNANDEZ Organization [facility] Address [address] [place] [address] Care Team Providers Care Data Entry Representative Name Role Phone DARLING HERNANDEZ Unavailable PROBLEMS Type Condition ICD9-CM Code QNS64-UR Code Onset Dates Condition S tatus SNOMED Code Problem ADD (attention deficit disorder) F90.0 Active 459927744 Problem Drug abuse counseling and surveillance of drug abuser Z71.51 Active 985019775 Problem Insomnia G47.00 Active 850012377 Problem Joint pain M25.50 Active 61341659 Problem Edema, unspecified type R60.9 Active 790160923 Problem Episode of recurrent major d epressive disorder, unspecified depression episode severity F33.9 Active 292039340 Problem Venous insufficiency (chronic) (peripheral) I87.2 Active 44880291760719319 Problem Carpal tunnel syndrome on left G56.02 Active 629438232023621 Problem Manic bipolar I disorder in partial remission F31. 73 Active 55263236 Problem Bipolar affective disorder, currently depressed, moderate F31.32 Active 648174724 Problem Social anxiety disorder F40.10 Active 02628941 Problem Other chronic pain G89.29 Active 8 8026846 Problem Stimulant abuse F15.10 Active 2535 33124 Problem Bipolar II disorder F31.81 Active 46315371 Problem ADD (attention deficit disorder) without hyperactivity F98.8 Active 62526860 ALLERGIES No Information ENCOUNTERS Encounter Location Date Diagnosis [facility] [address] [facility] [id number] [address] [place] [phone] Feb, [facility] [address] [facility] [id number] [address] [place] [address] Feb, [facility] [address] [facility] [id number] [address] [place] [address] Jan, Bipolar affective disorder, currently depressed, moderate F31.32 [place] [address] [address] 16 Jan, 2019 Bipolar affective disorder, currently depressed, moderate F31.32 ; Social anxiety disorder F40.10 and Morbid obesity E66.01 [place] [address] [address] May, Screening for lipid disorder s Z13.220 [place] [address] [address] May, Carpal tunnel syndrome on le ft G56.02 ; Social anxiety disorder F40.10 and Screening for lipid disorders Z13.220 [place] [address] [address] 11 Apr, 2018 Bipolar II disorder F31.81 ; Social anxiety disorder F40.10 ; ADD (attention deficit disorder) without hyperactivity F98.8 and BMI 45.0-49.9, adult Z68.42 [place] [address] [address] 05 Mar, 2018 [place] [address] [address] 17 Feb, 2018 BMI 45.0-49.9, adult Z68.42 ; Carpal tunnel syndrome on left G56.02 and Social anxiety disorder F40.10 [place] [address] [address] 09 Jan, 2018 Bipolar II disorder F31.81 ; ADD (attention deficit disorder) without hyperactivity F98.8 ; Social anxiety disorder F40.10 and Stimulant abuse F15.10 [place] [address] [address] Dec, Episode of recurrent major d epressive disorder, unspecified depression episode severity F33.9 ; Other chronic pain G89.29 ; Radiculopathy, lumbar region M54.16 ; Edema of lower extremity R60.0 and BMI 45.0-49.9, adult Z68.42 [place] [id number] [address] [place] [address] Jun, [facility] [address] [facility] [id number] [address] [place] [address] Jan, Joint pain M25.50 [facility] [address] [facility] [id number] [address] [place] [address] Jan, Wellness examination Z00.00 ; Pain in right knee M25.561 ; Pain in left knee M25.562 ; Edema, unspecified type R60.9 and Drug abuse counseling and surveillance of drug abuser Z71.51 [facility] [address] [facility] [id number] [address] [place] [address] November, [facility] [address] [facility] [id number] [address] [place] [address] Oct, [facility] [address] [place] [id number] [address] [place] [address] Oct, ADD (attention deficit disor josselin) F90.0 ; Social anxiety disorder F40.10 and Manic bipolar I disorder in partial remission F31.73 [facility] [address] [facility] [id number] [address] [place] [phone] Aug, [facility] [address] [facility] [id number] [address] [place] [phone] Aug, [facility] [address] [facility] [id number] [address] [place] [phone] Aug, [facility] [address] [facility] [id number] [address] [place] [address] Jul, [facility] [address] [facility] [id number] [address] [place] [phone] Jul, [facility] [address] [facility] [id number] [address] [place] [address] Jul, [facility] [address] [facility] [id number] [address] [place] [phone] Jun, [facility] [address] [facility] [id number] [address] [place] [phone] Jun, [facility] [address] [facility] [id number] [address] [place] [phone] Jun, [facility] [address] [facility] [id number] [address] [place] [phone] Jun, [facility] [address] [place] [id number] [address] [place] [address] May, Joint pain M25.50 ; ADD (att ention deficit disorder) F90.0 ; Edema R60.9 and Insomnia G47.00 [facility] [address] [facility] [id number] [address] [place] [phone] May, [facility] [address] [place] [id number] [place] [phone] May, [facility] [address] [place] [id number] [place] [address] May, [facility] [address] [address] May, Left wrist pain M25.532 ; Si nusitis J32.9 and Drug abuse counseling and surveillance of drug abuser Z71.51 [facility] [address] [place] [id number] [address] [place] [phone] Apr, [facility] [address] [place] [id number] [address] [place] [address] Apr, [facility] [address] [facility] [id number] [address] [place] [phone] Apr, [facility] [address] [place] [id number] [address] [place] [phone] Apr, [facility] [address] [facility] [id number] [address] [place] [address] Apr, [facility] [address] [place] [id number] [address] [place] [phone] Apr, [facility] [address] [id number] [address] [place] [address] Apr, [facility] [address] [id number] [address] [place] [address] Mar, Unspecified venous (peripher al) insufficiency 459.81 ; Bipolar I disorder, most recent episode (or current) manic, moderate 296.42 ; Social phobia 300.23 ; Attention deficit disorder of childhood without mention of hyperactivity 314.00 ; Pain in joint, lower leg 719.46 ; Thrombosis 453.9 and Chronic pain 338.29 [facility] [address] [id number] [address] [place] [phone] Mar, [facility] [address] [id number] [address] [place] [address] Mar, [facility] [address] [facility] [id number] [address] [place] [address] Mar, [facility] [address] [id number] [address] [place] [phone] Mar, [facility] [address] [facility] [id number] [address] [place] [phone] Mar, [facility] [address] [facility] [id number] [address] [place] [phone] Mar, [facility] [address] [facility] [id number] [address] [place] [address] Mar, Manic bipolar I disorder in partial remission 296.45 ; Social phobia 300.23 and Attention deficit disorder of childhood without mention of hyperactivity 314.00 [facility] [address] [id number] [address] [place] [phone] Mar, [facility] [address] [facility] [id number] [address] [place] [phone] Feb, [facility] [address] [facility] [id number] [address] [place] [phone] Feb, Thrombosis 453.9 ; Unspecifi ed venous (peripheral) insufficiency 459.81 ; Bipolar I disorder, most recent episode (or current) manic, moderate 296.42 ; Social phobia 300.23 ; Attention deficit disorder of childhood without mention of hyperactivity 314.00 ; Pain in joint, lower leg 719.46 and Edema 782.3 [facility] [address] [facility] [id number] [address] [place] [phone] Feb, [facility] [address] [facility] [id number] [address] [place] [phone] Feb, Social phobia 300.23 ; Atten tion deficit disorder of childhood without mention of hyperactivity 314.00 and Bipolar I disorder, most recent episode manic, in partial remission 296.45 [place] [address] [place] [id number] [address] [place] [address] Jan, [place] [address] [place] [id number] [address] [place] [phone] Jan, [place] [address] [place] [id number] [address] [place] [address] Jan, Unspecified venous (peripher al) insufficiency 459.81 and Thrombophlebitis 451.9 [place] [address] [place] [id number] [address] [place] [phone] Jan, [place] [address] [place] [id number] [address] [place] [phone] Dec, Headache 784.0 and Back pain 724.5 [place] [address] [place] [id number] [address] [place] [phone] Dec, [place] [address] [place] [id number] [address] [place] [address] Dec, Bipolar I disorder, most rec ent episode (or current) manic, moderate 296.42 ; Attention deficit disorder of childhood without mention of hyperactivity 314.00 and Social phobia 300.23 [place] [address] [place] [id number] [address] [place] [address] November, [facility] [address] [id number] [address] [place] [address], [place] [address] November, [facility] [address] [id number] [address] [place] [address], [place] [address] Oct, [facility] [address] [id number] [address] [place] [address], [place] [address] Oct, [facility] [address] [id number] [address] [place] [address], [place] [address] Sep, [facility] [address] [id number] [address] [place] [address], [place] [address] Sep, [facility] [address] [id number] [address] [place] [address], [place] [address] Aug, [facility] [address] [id number] [address] [place] [address], [place] [address] Aug, [facility] [address] [id number] [address] [place] [address], [place] [address] Aug, [facility] [address] [id number] [address] [place] [address], [place] [address] Aug, [facility] [address] [id number] [address] [place] [address], [place] [address] Aug, [facility] [address] [id number] [address] [place] [address], [place] [address] Aug, [facility] [address] [id number] [address] [place] [address], [place] [address] Aug, [facility] [address] [id number] [address] [place] [address], [place] [address] Jul, [facility] [address] [id number] [address] [place] [address], [place] [address] Jul, [facility] [address] [id number] [address] [place] [address], [place] [address] Jun, [facility] [address] [id number] [address] [place] [address], [place] [address] Jun, [facility] [address] [id number] [address] [place] [address], [place] [address] May, [facility] [address] [id number] [address] [place] [address], [place] [address] May, [facility] [address] [id number] [address] [place] [address], [place] [address] May, [facility] [address] [id number] [address] [place] [address], [place] [address] May, [facility] [address] [id number] [address] [place] [address], [place] [address] May, [facility] [address] [id number] [address] [place] [address], [place] [address] May, [facility] [address] [id number] [address] [place] [address], [place] [address] Apr, [facility] [address] [id number] [address] [place] [address], [place] [address] Apr, [facility] [address] [id number] [address] [place] [address], [place] [address] Apr, [facility] [address] [id number] [address] [place] [address], [place] [address] Apr, [facility] [address] [id number] [address] [place] [address], [place] [address] 22 Mar, 2014 [facility] [address] [id number] [address] [place] [address], [place] [address] 22 Mar, 2013 [facility] [address] [id number] [address] [place] [address], [place] [address] 19 Mar, 2014 [facility] [address] [id number] [address] [place] [address], [place] [address] 16 Mar, 2013 [facility] [address] [id number] [address] [place] [address] [address] 16 Mar2013 [facility] [address] [id number] [facility] [place] [address] 15 Mar, 2013 [facility] [address] [id number] [facility] [place] [address] 11 Mar, 2013 [facility] [address] [id number] [facility] [place] [address] 11 Mar, 2013 [facility] [address] [id number] [address] [place] [address], [place] [address] 11 Mar, 2013 [facility] [address] [id number] [address] [place] [address], [place] [address] 11 Mar, 2013 [facility] [address] [id number] [address] [place] [address], [place] [address] 10 Mar, 2013 [facility] [address] [id number] [address] [place] [address], [place] [address] 09 Mar, 2013 [facility] [address] [id number] [address] [place] [address], [place] [address] 09 Mar, 2013 [facility] [address] [id number] [address] [place] [address], [place] [address] Mar, 2013 [facility] [address] [id number] [address] [place] [address], [place] [address] Mar, 2013 [facility] [address] [id number] [address] [place] [address], [place] [address] Feb, [facility] [address] [id number] [address] [place] [address], [place] [address] Feb, [facility] [address] [id number] [address] [place] [address], [place] [address] Feb, [facility] [address] [id number] [address] [place] [address], [place] [address] Feb, [facility] [address] [id number] [address] [place] [address], [place] [address] 14 Feb, 2014 [facility] [address] [id number] [address] [place] [address], [place] [address] Feb, [facility] [address] [id number] [facility] [place] [address] Feb, [facility] [address] [id number] [address] [place] [address], [place] [address] Feb, [facility] [address] [id number] [address] [place] [address], [place] [address] Feb, 2013 [facility] [address] [id number] [address] [place] [address], [place] [address] Feb, [facility] [address] [id number] [address] [place] [address], [place] [address] Feb, [facility] [address] [id number] [address] [place] [address], [place] [address] Feb, [facility] [address] [id number] [address] [place] [address], [place] [address] Feb, [facility] [address] [id number] [address] [place] [address], [place] [address] Feb, [facility] [address] [id number] [address] [place] [address], [place] [address] Jan, [facility] [address] [id number] [address] [place] [address], [place] [address] Jan, [facility] [address] [id number] [address] [place] [address], [place] [address] Jan, [facility] [address] [id number] [address] [place] [address], [place] [address] Jan, [facility] [address] [id number] [address] [place] [address], [place] [address] Jan, [facility] [address] [id number] [address] [place] [address], [place] [address] Jan, [facility] [address] [id number] [address] [place] [address], [place] [address] Jan, [facility] [address] [id number] [facility] [place] [address] Dec, [facility] [address] [id number] [address] [place] [address], [place] [address] Dec, [facility] [address] [id number] [address] [place] [address], [place] [address] Dec, [facility] [address] [id number] [address] [place] [address], [place] [address] Dec, [facility] [address] [id number] [address] [place] [address], [place] [address] Dec, [facility] [address] [id number] [address] [place] [address], [place] [address] Dec, [facility] [address] [id number] [address] [place] [address], [place] [address] Dec, [facility] [address] [id number] [address] [place] [address], [place] [address] Dec, [facility] [address] [id number] [address] [place] [address], [place] [address] Dec, [facility] [address] [id number] [address] [place] [address], [place] [address] November, [facility] [address] [id number] [address] [place] [address], [place] [address] November, [facility] [address] [id number] [address] [place] [address], [place] [address] November, [facility] [address] [id number] [address] [place] [address], [place] [address] November, [facility] [address] [id number] [address] [place] [address], [place] [address] November, [facility] [address] [id number] [address] [place] [address], [place] [address] November, [facility] [address] [id number] [address] [place] [address], [place] [address] November, [facility] [address] [id number] [address] [place] [address], [place] [address] November, [facility] [address] [id number] [address] [place] [address], [place] [address] November, [facility] [address] [id number] [address] [place] [address], [place] [address] November, [facility] [address] [id number] [address] [place] [address], [place] [address] November, [facility] [address] [id number] [address] [place] [address], [place] [address] November, [facility] [address] [id number] [address] [place] [address], [place] [address] November, [facility] [address] [id number] [address] [place] [address], [place] [address] November, [facility] [address] [id number] [address] [place] [address], [place] [address] Oct, [facility] [address] [id number] [address] [place] [address], [place] [address] Oct, [facility] [address] [id number] [address] [place] [address], [place] [address] Oct, [facility] [address] [id number] [address] [place] [address], [place] [address] Oct, [facility] [address] [id number] [address] [place] [address], [place] [address] Oct, [facility] [address] [id number] [address] [place] [address], [place] [address] Oct, [facility] [address] [id number] [address] [place] [address], [place] [address] Sep, [facility] [address] [id number] [address] [place] [address], [place] [address] Sep, [facility] [address] [id number] [address] [place] [address], [place] [address] Sep, [facility] [address] [id number] [address] [place] [address], [place] [address] Sep, [facility] [address] [id number] [address] [place] [address], [place] [address] Aug, [facility] [address] [id number] [address] [place] [address], [place] [address] Aug, [facility] [address] [id number] [address] [place] [address], [place] [address] Aug, [facility] [address] [id number] [address] [place] [address], [place] [address] Aug, [facility] [address] [id number] [address] [place] [address], [place] [address] Jul, [facility] [address] [id number] [address] [place] [address], [place] [address] Jul, [facility] [address] [id number] [address] [place] [address], [place] [address] Jul, [facility] [address] [id number] [address] [place] [address], [place] [address] Jul, [facility] [address] [id number] [address] [place] [address], [place] [address] Jul, [facility] [address] [id number] [address] [place] [address], [place] [address] Jul, [facility] [address] [id number] [address] [place] [address], [place] [address] Jul, [facility] [address] [id number] [address] [place] [address], [place] [address] Jun, [facility] [address] [id number] [address] [place] [address], [place] [address] Jun, [facility] [address] [id number] [address] [place] [address], [place] [address] Jun, [facility] [address] [id number] [address] [place] [address], [place] [address] 17 Jun, 2013 [facility] [address] [id number] [address] [place] [address], [place] [address] 13 Jun, 2013 [facility] [address] [id number] [address] [place] [address], [place] [address] 13 Jun, 2013 [facility] [address] [id number] [address] [place] [address], [place] [address] 07 May, 2013 [facility] [address] [id number] [address] [place] [address], [place] [address] 07 May, 2013 [facility] [address] [id number] [address] [place] [address], [place] [address] 15 Apr, 2013 [facility] [address] [id number] [address] [place] [address], [place] [address] 15 Apr, 2013 [facility] [address] [id number] [address] [place] [address], [place] [address] 10 Apr, 2013 [facility] [address] [id number] [address] [place] [address], [place] [address] 10 Apr, 2013 [facility] [address] [id number] [address] [place] [address], [place] [address] 08 Apr, 2013 [facility] [address] [id number] [address] [place] [address], [place] [address] 24 Mar, 2013 [facility] [address] [id number] [address] [place] [address], [place] [address] 19 Mar, 2013 [facility] [address] [id number] [address] [place] [address], [place] [address] 12 Mar, 2013 [facility] [address] [id number] [address] [place] [address], [place] [address] 10 Mar, 2013 [facility] [address] [id number] [address] [place] [address], [place] [address] 16 Feb, 2013 [facility] [address] [id number] [address] [place] [address], [place] [address] Feb, [facility] [address] [id number] [address] [place] [address], [place] [address] Jan, [facility] [address] [id number] [address] [place] [address], [place] [address] Jan, [facility] [address] [id number] [address] [place] [address], [place] [address] Jan, [facility] [address] [id number] [address] [place] [address], [place] [address] Jan, [facility] [address] [id number] [address] [place] [address], [place] [address] Dec, [facility] [address] [id number] [address] [place] [address], [place] [address] Dec, [facility] [address] [id number] [address] [place] [address], [place] [address] Dec, [facility] [address] [id number] [address] [place] [address], [place] [address] Dec, [facility] [address] [id number] [address] [place] [address], [place] [address] November, [facility] [address] [id number] [address] [place] [address], [place] [address] November, [facility] [address] [id number] [address] [place] [address], [place] [address] Oct, [facility] [address] [id number] [address] [place] [address], [place] [address] Sep, [facility] [address] [id number] [address] [place] [address], [place] [address] Sep, [facility] [address] [id number] [address] [place] [address], [place] [address] 14 Aug, 2012 [facility] [address] [id number] [address] [place] [address], [place] [address] Aug, [facility] [address] [id number] [address] [place] [address], [place] [address] Jul, [facility] [address] [id number] [address] [place] [address], [place] [address] Jul, [facility] [address] [id number] [address] [place] [address], [place] [address] Jul, [facility] [address] [id number] [address] [place] [address], [place] [address] Jun, [facility] [address] [id number] [address] [place] [address], [place] [address] Jun, [facility] [address] [id number] [address] [place] [address], [place] [address] Jun, [facility] [address] [id number] [address] [place] [address], [place] [address] Jun, [facility] [address] [id number] [address] [place] [address], [place] [address] May, [facility] [address] [id number] [address] [place] [address], [place] [address] May, [facility] [address] [id number] [address] [place] [address], [place] [address] May, [facility] [address] [id number] [address] [place] [address], [place] [address] 14 May, 2012 [facility] [address] [id number] [address] [place] [address], [place] [address] 14 May, 2012 [facility] [address] [id number] [address] [place] [address], [place] [address] May, [facility] [address] [id number] [address] [place] [address], [place] [address] 06 May, 2012 [facility] [address] [id number] [address] [place] [address], [place] [address] 15 Apr, 2012 [facility] [address] [id number] [address] [place] [address], [place] [address] Apr, [facility] [address] [id number] [address] [place] [address], [place] [address] Apr, [facility] [address] [id number] [address] [place] [address], [place] [address] Apr, [facility] [address] [id number] [address] [place] [address], [place] [address] Apr, [facility] [address] [id number] [address] [place] [address], [place] [address] Apr, [facility] [address] [id number] [address] [place] [address], [place] [address] Apr, [facility] [address] [id number] [address] [place] [address], [place] [address] Apr, [facility] [address] [id number] [address] [place] [address], [place] [address] Jan, [facility] [address] [id number] [address] [place] [address], [place] [address] Jan, [facility] [address] [id number] [address] [place] [address], [place] [address] Dec, [facility] [address] [id number] [address] [place] [address], [place] [address] November, [facility] [address] [id number] [address] [place] [address], [place] [address] Oct, [facility] [address] [id number] [address] [place] [id number] Oct, [facility] [address] [id number] [address] [place] [address], [place] [address] Oct, [facility] [address] [id number] [address] [place] [address], [place] [address] Oct, [facility] [address] [id number] [address] [place] [address], [place] [address] Sep, [facility] [address] [id number] [address] [place] [id number] 26 Sep, 2011 [facility] [address] [id number] [address] [place] [address], [place] [address] 26 Sep, 2011 [facility] [address] [id number] [address] [place] [address], [place] [address] 13 Jun, 2011 [facility] [address] [id number] [address] [place] [address], [place] [address] 13 Jun, 2011 [facility] [address] [id number] [address] [place] [address], [place] [address] 22 May, 2011 [facility] [address] [id number] [address] [place] [address], [place] [address] 14 Jan, 2011 [facility] [address] [id number] [address] [place] [address], [place] [address] 19 Nov, 2010 [facility] [address] [id number] [address] [place] [address], [place] [address] 14 Oct, 2010 [facility] [address] [id number] [address] [place] [address], [place] [address] 16 Sep, 2010 [facility] [address] [id number] [address] [place] [address], [place] [address] 30 May, 2010 [facility] [address] [id number] [address] [place] [address], [place] [address] Jul, [facility] [address] [id number] [address] [place] [address], [place] [address] 23 Jun, 2009 [facility] [address] [id number] [address] [place] [address], [place] [address] 23 Jun, 2009 [facility] [address] [id number] [address] [place] [address], [place] [address] 15 Jun, 2009 [facility] [address] [id number] [address] [place] [address], [place] [address] 15 Jun, 2009 [facility] [address] [id number] [address] [place] [address], [place] [address] 17 May, 2009 [facility] [address] [facility] [id number] [address] [place] [id number] May, [facility] [address] [facility] [id number] [address] [place] [id number] Apr, [facility] [address] [facility] [id number] [address] [place] [id number] Apr, [facility] [address] [facility] [id number] [address] [place] [id number] Apr, IMMUNIZATIONS No Known Immunizations SOCIAL HISTORY [...] right 06/1996 Surgical History multiple knee injections ([id number]) Surgical History left knee replacement 06/11 Hospitalization History Knee surgery- x 3 days 06/11
--- OUTSIDE RECORDS SUMMARY | 2019-12-16 20:32 | XMS REPORT ---
Author Author Patti HRENANDEZ Organization [facility] Address [address] [place] [address] Care Team Providers Care Asset Protection Specialist Name Role Phone DARLING HERNANDEZ Unavailable PROBLEMS Type Condition ICD9-CM Code YLA20-ZG Code Onset Dates Condition S tatus SNOMED Code Problem ADD (attention deficit disorder) F90.0 Active 952626918 Problem Drug abuse counseling and surveillance of drug abuser Z71.51 Active 445073034 Problem Insomnia G47.00 Active 178611238 Problem Joint pain M25.50 Active 80190649 Problem Edema, unspecified type R60.9 Active 755976648 Problem Episode of recurrent major d epressive disorder, unspecified depression episode severity F33.9 Active 665633524 Problem Venous insufficiency (chronic) (peripheral) I87.2 Active [id number] Problem Carpal tunnel syndrome on left G56.02 Active 864288142596451 Problem Manic bipolar I disorder in partial remission F31. 73 Active 57595373 Problem Bipolar affective disorder, currently depressed, moderate F31.32 Active 835009877 Problem Social anxiety disorder F40.10 Active 61916692 Problem Other chronic pain G89.29 Active 8 8408366 Problem Stimulant abuse F15.10 Active 0905 09117 Problem Bipolar II disorder F31.81 Active 05069038 Problem ADD (attention deficit disorder) without hyperactivity F98.8 Active 27022512 ALLERGIES No Information ENCOUNTERS Encounter Location Date Diagnosis [facility] [address] [facility] [id number] [address] [place] [id number] Mar, [facility] [address] [facility] [id number] [address] [place] [id number] Jan, Bipolar affective disorder, currently depressed, moderate F31.32 [facility] [address] [facility] [id number] [address] [place] [id number] 16 Job, 2019 Bipolar affective disorder, currently depressed, moderate F31.32 ; Social anxiety disorder F40.10 and Morbid obesity E66.01 [place] [address] [address] May, Screening for lipid disorder s Z13.220 [place] [address] [place] [id number] [place] [address] May, Carpal tunnel syndrome on le ft G56.02 ; Social anxiety disorder F40.10 and Screening for lipid disorders Z13.220 [place] [address] [place] [id number] [place] [id number] 11 Apr, 2018 Bipolar II disorder F31.81 ; Social anxiety disorder F40.10 ; ADD (attention deficit disorder) without hyperactivity F98.8 and BMI 45.0-49.9, adult Z68.42 [place] [address] [id number] 05 Mar, 2018 [place] [address] [address] Feb, BMI 45.0-49.9, adult Z68.42 ; Carpal tunnel syndrome on left G56.02 and Social anxiety disorder F40.10 [place] [address] [id number] 09 Jan, 2018 Bipolar II disorder F31.81 ; ADD (attention deficit disorder) without hyperactivity F98.8 ; Social anxiety disorder F40.10 and Stimulant abuse F15.10 [place] [address] [address] Dec, Episode of recurrent major d epressive disorder, unspecified depression episode severity F33.9 ; Other chronic pain G89.29 ; Radiculopathy, lumbar region M54.16 ; Edema of lower extremity R60.0 and BMI 45.0-49.9, adult Z68.42 [place] [address] [place] [id number] [place] [id number] Jun, [place] [address] [place] [id number] [address] [place] [id number] Jan, Joint pain M25.50 [facility] [address] [facility] [id number] [address] [place] [phone] Jan, Wellness examination Z00.00 ; Pain in right knee M25.561 ; Pain in left knee M25.562 ; Edema, unspecified type R60.9 and Drug abuse counseling and surveillance of drug abuser Z71.51 [facility] [address] [place] [id number] [address] [place] [id number] November, [facility] [address] [place] [id number] [address] [place] [phone] Oct, [facility] [address] [place] [id number] [address] [place] [id number] Oct, ADD (attention deficit disor josselin) F90.0 ; Social anxiety disorder F40.10 and Manic bipolar I disorder in partial remission F31.73 [facility] [address] [place] [id number] [address] [place] [phone] Aug, [facility] [address] [place] [id number] [address] [place] [phone] Aug, [facility] [address] [place] [id number] [address] [place] [phone] Aug, [facility] [address] [place] [id number] [address] [place] [phone] Jul, [facility] [address] [facility] [id number] [address] [place] [phone] Jul, [facility] [address] [place] [id number] [address] [place] [phone] Jul, [facility] [address] [place] [id number] [address] [place] [phone] Jun, [facility] [address] [place] [id number] [address] [place] [phone] Jun, [facility] [address] [facility] [id number] [address] [place] [phone] Jun, [facility] [address] [facility] [id number] [address] [place] [phone] Jun, [facility] [address] [facility] [id number] [address] [place] [phone] May, Joint pain M25.50 ; ADD (att ention deficit disorder) F90.0 ; Edema R60.9 and Insomnia G47.00 [facility] [address] [facility] [id number] [address] [place] [phone] May, [facility] [address] [place] [id number] [place] [address] May, [facility] [address] [place] [id number] [address] [place] [phone] May, [facility] [address] [place] [id number] [place] [address] May, Left wrist pain M25.532 ; Si nusitis J32.9 and Drug abuse counseling and surveillance of drug abuser Z71.51 [facility] [address] [facility] [id number] [address] [place] [id number] Apr, [facility] [address] [place] [id number] [address] [place] [id number] Apr, [facility] [address] [place] [id number] [address] [place] [id number] Apr, [facility] [address] [facility] [id number] [address] [place] [phone] Apr, [facility] [address] [place] [id number] [address] [place] [phone] Apr, [facility] [address] [facility] [id number] [address] [place] [id number] Apr, [facility] [address] [place] [id number] [address] [place] [phone] Apr, [facility] [address] [facility] [id number] [address] [place] [id number] Mar, Unspecified venous (peripher al) insufficiency 459.81 ; Bipolar I disorder, most recent episode (or current) manic, moderate 296.42 ; Social phobia 300.23 ; Attention deficit disorder of childhood without mention of hyperactivity 314.00 ; Pain in joint, lower leg 719.46 ; Thrombosis 453.9 and Chronic pain 338.29 [facility] [address] [id number] [address] [place] [id number] 18 Mar, 2015 [facility] [address] [id number] [address] [place] [phone] Mar, [facility] [address] [facility] [id number] [address] [place] [phone] Mar, [facility] [address] [facility] [id number] [address] [place] [id number] Mar, [facility] [address] [facility] [id number] [address] [place] [phone] Mar, [facility] [address] [facility] [id number] [address] [place] [phone] Mar, [facility] [address] [facility] [id number] [address] [place] [id number] 10 Mar, 2015 Manic bipolar I disorder in partial remission 296.45 ; Social phobia 300.23 and Attention deficit disorder of childhood without mention of hyperactivity 314.00 [facility] [address] [facility] [id number] [address] [place] [phone] Mar, [facility] [address] [facility] [id number] [address] [place] [phone] Feb, [facility] [address] [facility] [id number] [address] [place] [id number] Feb, Thrombosis 453.9 ; Unspecifi ed venous (peripheral) insufficiency 459.81 ; Bipolar I disorder, most recent episode (or current) manic, moderate 296.42 ; Social phobia 300.23 ; Attention deficit disorder of childhood without mention of hyperactivity 314.00 ; Pain in joint, lower leg 719.46 and Edema 782.3 [facility] [address] [id number] [address] [place] [phone] Feb, [facility] [address] [facility] [id number] [address] [place] [phone] Feb, Social phobia 300.23 ; Atten tion deficit disorder of childhood without mention of hyperactivity 314.00 and Bipolar I disorder, most recent episode manic, in partial remission 296.45 [facility] [address] [facility] [id number] [address] [place] [phone] Jan, [facility] [address] [facility] [id number] [address] [place] [phone] Jan, [facility] [address] [place] [id number] [address] [place] [phone] Jan, Unspecified venous (peripher al) insufficiency 459.81 and Thrombophlebitis 451.9 [facility] [address] [facility] [id number] [address] [place] [id number] Jan, [facility] [address] [facility] [id number] [address] [place] [phone] Dec, Headache 784.0 and Back pain 724.5 [facility] [address] [facility] [id number] [address] [place] [phone] Dec, [facility] [address] [place] [id number] [address] [place] [id number] Dec, Bipolar I disorder, most rec ent episode (or current) manic, moderate 296.42 ; Attention deficit disorder of childhood without mention of hyperactivity 314.00 and Social phobia 300.23 [facility] [address] [facility] [id number] [address] [place] [phone] November, [facility] [address] [facility] [id number] [address] [place] [phone] November, [facility] [address] [id number] [address] [place] [address], [place] [id number] 14 Oct, 2014 [facility] [address] [id number] [address] [place] [address], [place] [id number] Oct, [facility] [address] [id number] [address] [place] [address], [place] [address] Sep, [facility] [address] [id number] [address] [place] [address], [place] [address] Sep, [facility] [address] [id number] [address] [place] [address], [place] [address] Aug, [facility] [address] [id number] [address] [place] [address], [place] [id number] Aug, [facility] [address] [id number] [address] [place] [address], [place] [address] Aug, [facility] [address] [id number] [address] [place] [address], [place] [address] Aug, [facility] [address] [id number] [address] [place] [address], [place] [address] Aug, [facility] [address] [id number] [address] [place] [address], [place] [address] Aug, [facility] [address] [id number] [address] [place] [address], [place] [id number] Aug, [facility] [address] [id number] [address] [place] [address], [place] [address] Jul, [facility] [address] [id number] [address] [place] [address], [place] [address] Jul, [facility] [address] [id number] [address] [place] [address], [place] [id number] Jun, [facility] [address] [id number] [address] [place] [address], [place] [address] Jun, [facility] [address] [id number] [address] [place] [address], [place] [address] May, [facility] [address] [id number] [address] [place] [address], [place] [address] May, [facility] [address] [id number] [address] [place] [address], [place] [address] May, [facility] [address] [id number] [address] [place] [address], [place] [address] May, [facility] [address] [id number] [address] [place] [address], [place] [address] May, [facility] [address] [id number] [address] [place] [address], [place] [address] May, [facility] [address] [id number] [address] [place] [address], [place] [address] Apr, [facility] [address] [id number] [address] [place] [address], [place] [address] Apr, [facility] [address] [id number] [address] [place] [address], [place] [address] Apr, [facility] [address] [id number] [address] [place] [address], [place] [address] Apr, [facility] [address] [id number] [address] [place] [address], [place] [id number] 22 Mar, 2014 [facility] [address] [id number] [address] [place] [address], [place] [address] 22 Mar, 2013 [facility] [address] [id number] [address] [place] [address], [place] [id number] 19 Sep, 2013 [facility] [address] [id number] [address] [place] [address], [place] [id number] 16 Sep, 2013 [facility] [address] [id number] [address] [place] [address], [place] [id number] 16 Sep, 2013 [facility] [address] [id number] [address] [place] [address], [place] [id number] 15 Mar2013 [facility] [address] [id number] [facility] [place] [address] 11 Mar, 2013 [facility] [address] [id number] [facility] [place] [address] Mar, 2013 [facility] [address] [id number] [facility] [place] [address] Mar, 2013 [facility] [address] [id number] [facility] [place] [address] Mar, 2013 [facility] [address] [id number] [address] [place] [address], [place] [address] Mar, 2013 [facility] [address] [id number] [address] [place] [address], [place] [address] Mar, 2013 [facility] [address] [id number] [address] [place] [address], [place] [address] Mar, 2013 [facility] [address] [id number] [address] [place] [address], [place] [address] Mar, 2013 [facility] [address] [id number] [address] [place] [address], [place] [address] Mar, [facility] [address] [id number] [address] [place] [address], [place] [address] Feb, [facility] [address] [id number] [address] [place] [address], [place] [address] Feb, [facility] [address] [id number] [address] [place] [address], [place] [address] Feb, [facility] [address] [id number] [address] [place] [address], [place] [address] Feb, [facility] [address] [id number] [address] [place] [address], [place] [address] Feb, [facility] [address] [id number] [address] [place] [address], [place] [address] Feb, [facility] [address] [id number] [address] [place] [address], [place] [address] Feb, [facility] [address] [id number] [facility] [place] [address] Feb, [facility] [address] [id number] [address] [place] [address], [place] [address] Feb, [facility] [address] [id number] [address] [place] [address], [place] [address] Feb, 2013 [facility] [address] [id number] [address] [place] [address], [place] [address] Feb, [facility] [address] [id number] [address] [place] [address], [place] [address] Feb, [facility] [address] [id number] [address] [place] [address], [place] [address] Feb, [facility] [address] [id number] [address] [place] [address], [place] [address] Feb, [facility] [address] [id number] [address] [place] [address], [place] [address] Jan, [facility] [address] [id number] [address] [place] [address], [place] [address] Jan, [facility] [address] [id number] [address] [place] [address], [place] [address] Jan, [facility] [address] [id number] [address] [place] [address], [place] [address] Jan, [facility] [address] [id number] [address] [place] [address], [place] [address] Jan, [facility] [address] [id number] [address] [place] [address], [place] [address] Jan, [facility] [address] [id number] [address] [place] [address], [place] [address] Jan, [facility] [address] [id number] [address] [place] [address], [place] [address] Dec, [facility] [address] [id number] [address] [place] [address], [place] [address] Dec, [facility] [address] [id number] [address] [place] [address], [place] [address] Dec, [facility] [address] [id number] [address] [place] [address], [place] [address] Dec, [facility] [address] [id number] [address] [place] [address], [place] [address] Dec, [facility] [address] [id number] [address] [place] [address], [place] [address] Dec, [facility] [address] [id number] [address] [place] [address], [place] [address] Dec, [facility] [address] [id number] [address] [place] [address], [place] [address] Dec, [facility] [address] [id number] [address] [place] [address], [place] [address] Dec, [facility] [address] [id number] [address] [place] [address], [place] [address] November, [facility] [address] [id number] [address] [place] [address], [place] [address] November, [facility] [address] [id number] [address] [place] [address], [place] [address] November, [facility] [address] [id number] [address] [place] [address], [place] [address] November, [facility] [address] [id number] [address] [place] [address], [place] [address] November, [facility] [address] [id number] [address] [place] [address], [place] [address] November, [facility] [address] [id number] [address] [place] [address], [place] [address] November, [facility] [address] [id number] [address] [place] [address], [place] [address] November, [facility] [address] [id number] [address] [place] [address], [place] [id number] November, [facility] [address] [id number] [address] [place] [address], [place] [id number] November, [facility] [address] [id number] [address] [place] [address], [place] [address] November, [facility] [address] [id number] [address] [place] [address], [place] [id number] November, [facility] [address] [id number] [address] [place] [address], [place] [id number] November, [facility] [address] [id number] [address] [place] [address], [place] [id number] November, [facility] [address] [id number] [address] [place] [address], [place] [id number] Oct, [facility] [address] [id number] [address] [place] [address], [place] [id number] Oct, [facility] [address] [id number] [address] [place] [address], [place] [id number] Oct, [facility] [address] [id number] [address] [place] [address], [place] [id number] Oct, [facility] [address] [id number] [address] [place] [address], [place] [id number] Oct, [facility] [address] [id number] [address] [place] [address], [place] [id number] Oct, [facility] [address] [id number] [address] [place] [address], [place] [id number] Sep, [facility] [address] [id number] [address] [place] [address], [place] [id number] Sep, [facility] [address] [id number] [address] [place] [address], [place] [id number] Sep, [facility] [address] [id number] [address] [place] [address], [place] [id number] Sep, [facility] [address] [id number] [address] [place] [address], [place] [id number] Aug, [facility] [address] [id number] [address] [place] [address], [place] [id number] Aug, [facility] [address] [id number] [address] [place] [address], [place] [id number] Aug, [facility] [address] [id number] [address] [place] [address], [place] [id number] Aug, [facility] [address] [id number] [address] [place] [address], [place] [id number] Jul, [facility] [address] [id number] [address] [place] [address], [place] [id number] Jul, [facility] [address] [id number] [address] [place] [address], [place] [id number] Jul, [facility] [address] [id number] [address] [place] [address], [place] [id number] Jul, [facility] [address] [id number] [address] [place] [address], [place] [id number] Jul, [facility] [address] [id number] [address] [place] [address], [place] [id number] Jul, [facility] [address] [id number] [address] [place] [address], [place] [id number] Jul, [facility] [address] [id number] [address] [place] [address], [place] [id number] Jun, [facility] [address] [id number] [address] [place] [address], [place] [id number] Jun, [facility] [address] [id number] [address] [place] [address], [place] [id number] Jun, [facility] [address] [id number] [address] [place] [address], [place] [address] Jun, [facility] [address] [id number] [address] [place] [address], [place] [address] Jun, [facility] [address] [id number] [address] [place] [address], [place] [address] Jun, [facility] [address] [id number] [address] [place] [address], [place] [address] 07 May, 2013 [facility] [address] [id number] [address] [place] [address], [place] [address] 07 May, 2013 [facility] [address] [id number] [address] [place] [address], [place] [id number] 15 Apr, 2013 [facility] [address] [id number] [address] [place] [address], [place] [address] 15 Apr, 2013 [facility] [address] [id number] [address] [place] [address], [place] [address] 10 Apr, 2013 [facility] [address] [id number] [address] [place] [address], [place] [address] 10 Apr, 2013 [facility] [address] [id number] [address] [place] [address], [place] [address] 08 Apr, 2013 [facility] [address] [id number] [address] [place] [address], [place] [id number] 24 Mar, 2013 [facility] [address] [id number] [address] [place] [address], [place] [address] 19 Mar, 2013 [facility] [address] [id number] [address] [place] [address], [place] [address] 12 Mar, 2013 [facility] [address] [id number] [address] [place] [address], [place] [address] 10 Mar, 2013 [facility] [address] [id number] [address] [place] [address], [place] [address] 16 Feb, 2013 [facility] [address] [id number] [address] [place] [address], [place] [address] 06 Feb, 2013 [facility] [address] [id number] [address] [place] [address], [place] [address] Jan, [facility] [address] [id number] [address] [place] [address], [place] [address] Jan, [facility] [address] [id number] [address] [place] [address], [place] [address] Jan, [facility] [address] [id number] [address] [place] [address], [place] [address] Jan, [facility] [address] [id number] [address] [place] [address], [place] [address] Dec, [facility] [address] [id number] [address] [place] [address], [place] [address] Dec, [facility] [address] [id number] [address] [place] [address], [place] [address] Dec, [facility] [address] [id number] [address] [place] [address], [place] [address] Dec, [facility] [address] [id number] [address] [place] [address], [place] [address] November, [facility] [address] [id number] [address] [place] [address], [place] [address] November, [facility] [address] [id number] [address] [place] [address], [place] [address] Oct, [facility] [address] [id number] [address] [place] [address], [place] [address] Sep, [facility] [address] [id number] [address] [place] [address], [place] [address] Sep, [facility] [address] [id number] [address] [place] [address], [place] [address] 14 Aug, 2012 [facility] [address] [id number] [address] [place] [address], [place] [address] Aug, [facility] [address] [id number] [address] [place] [address], [place] [address] Jul, [facility] [address] [id number] [address] [place] [address], [place] [address] Jul, [facility] [address] [id number] [address] [place] [address], [place] [address] Jul, [facility] [address] [id number] [address] [place] [address], [place] [address] Jun, [facility] [address] [id number] [address] [place] [address], [place] [address] Jun, [facility] [address] [id number] [address] [place] [address], [place] [address] Jun, [facility] [address] [id number] [address] [place] [address], [place] [address] Jun, [facility] [address] [id number] [address] [place] [address], [place] [address] May, [facility] [address] [id number] [address] [place] [address], [place] [address] May, [facility] [address] [id number] [address] [place] [address], [place] [address] 19 May, 2012 [facility] [address] [id number] [address] [place] [address], [place] [address] 14 May, 2012 [facility] [address] [id number] [address] [place] [address], [place] [address] 14 May, 2012 [facility] [address] [id number] [address] [place] [address], [place] [address] May, [facility] [address] [id number] [address] [place] [address], [place] [address] 06 May, 2012 [facility] [address] [id number] [address] [place] [address], [place] [address] 15 Apr, 2012 [facility] [address] [id number] [address] [place] [address], [place] [id number] 15 Apr, 2012 [facility] [address] [id number] [address] [place] [address], [place] [address] Apr, [facility] [address] [id number] [address] [place] [address], [place] [address] Apr, [facility] [address] [id number] [address] [place] [address], [place] [address] Apr, [facility] [address] [id number] [address] [place] [address], [place] [address] Apr, [facility] [address] [id number] [address] [place] [address], [place] [address] Apr, [facility] [address] [id number] [address] [place] [address], [place] [address] Apr, [facility] [address] [id number] [address] [place] [address], [place] [address] Jan, [facility] [address] [id number] [address] [place] [address], [place] [address] Jan, [facility] [address] [id number] [address] [place] [address], [place] [address] Dec, [facility] [address] [id number] [address] [place] [address], [place] [address] November, [facility] [address] [id number] [address] [place] [address], [place] [address] Oct, [facility] [address] [id number] [address] [place] [address], [place] [address] Oct, [facility] [address] [id number] [address] [place] [address], [place] [address] Oct, [facility] [address] [id number] [address] [place] [address], [place] [address] Oct, [facility] [address] [id number] [address] [place] [address], [place] [address] Sep, [facility] [address] [id number] [address] [place] [address], [place] [address] Sep, [facility] [address] [id number] [address] [place] [id number] 26 Sep, 2011 [facility] [address] [id number] [address] [place] [address], [place] [address] 13 Jun, 2011 [facility] [address] [id number] [address] [place] [address], [place] [address] 13 Jun, 2011 [facility] [address] [id number] [address] [place] [address], [place] [address] 22 May, 2011 [facility] [address] [id number] [address] [place] [address], [place] [address] 14 Jan, 2011 [facility] [address] [id number] [address] [place] [address], [place] [address] 19 Nov, 2010 [facility] [address] [id number] [address] [place] [address], [place] [address] 14 Oct, 2010 [facility] [address] [id number] [address] [place] [address], [place] [address] 16 Sep, 2010 [facility] [address] [id number] [address] [place] [address], [place] [address] 30 May, 2010 [facility] [address] [id number] [address] [place] [address], [place] [address] 19 Jul, 2009 [facility] [address] [id number] [address] [place] [address], [place] [address] 23 Jun, 2009 [facility] [address] [id number] [address] [place] [address], [place] [address] 23 Jun, 2009 [facility] [address] [id number] [address] [place] [address], [place] [address] 15 Jun, 2009 [facility] [address] [id number] [address] [place] [address], [place] [address] 15 Jun, 2009 [facility] [address] [id number] [address] [place] [address], [place] [id number] 17 May, 2009 [facility] [address] [id number] [address] [place] [address], [place] [address] 09 May, 2009 [facility] [address] [facility] [id number] [address] [address] Apr, [facility] [address] [facility] [id number] [address] [place] [id number] Apr, [facility] [address] [facility] [id number] [address] [place] [id number] Apr, IMMUNIZATIONS No Known Immunizations SOCIAL HISTORY [...] right 06/1996 Surgical History multiple knee injections ([id number]) Surgical History left knee replacement 06/11 Hospitalization History Knee surgery- x 3 days 06/11
--- OUTSIDE RECORDS SUMMARY | 2019-12-16 20:33 | XMS REPORT ---
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 Role Phone DIMITRY Ding Unavailable PROBLEMS Type Condition ICD9-CM Code XFO61-AI Code Onset Dates Condition S tatus SNOMED Code Problem ADD (attention deficit disorder) F90.0 Active 814584381 Problem Drug abuse counseling and surveillance of drug abuser Z71.51 Active 460166611 Problem Insomnia G47.00 Active 232690614 Problem Joint pain M25.50 Active 16024955 Problem Edema, unspecified type R60.9 Active 031141811 Problem Episode of recurrent major d epressive disorder, unspecified depression episode severity F33.9 Active 163599372 Problem Venous insufficiency (chronic) (peripheral) I87.2 Active [id number] Problem Carpal tunnel syndrome on left G56.02 Active 088689992359089 Problem Manic bipolar I disorder in partial remission F31. 73 Active 08631438 Problem Bipolar affective disorder, currently depressed, moderate F31.32 Active 597447674 Problem Social anxiety disorder F40.10 Active 06244942 Problem Other chronic pain G89.29 Active 8 4101867 Problem Stimulant abuse F15.10 Active 4415 97641 Problem Bipolar II disorder F31.81 Active 49398521 Problem ADD (attention deficit disorder) without hyperactivity F98.8 Active 97241041 ALLERGIES No Information ENCOUNTERS Encounter Location Date Diagnosis [facility] [address] [facility] [id number] [address] [place] [address] Feb, [facility] [address] [facility] [id number] [address] [place] [address] Feb, [facility] [address] [facility] [id number] [address] [place] [address] Feb, [facility] [address] [facility] [id number] [address] [place] [address] Jan, Bipolar affective disorder, currently depressed, moderate F31.32 [place] [address] [address] Jan, Bipolar affective disorder, currently depressed, moderate F31.32 ; Social anxiety disorder F40.10 and Morbid obesity E66.01 [place] [address] [address] May, Screening for lipid disorder s Z13.220 [place] [address] [place] [id number] [address] [place] [address] May, Carpal tunnel syndrome on le ft G56.02 ; Social anxiety disorder F40.10 and Screening for lipid disorders Z13.220 [place] [address] [place] [id number] [address] [place] [address] 11 Apr, 2018 Bipolar II disorder F31.81 ; Social anxiety disorder F40.10 ; ADD (attention deficit disorder) without hyperactivity F98.8 and BMI 45.0-49.9, adult Z68.42 [place] [address] [address] 05 Mar, 2018 [place] [address] [address] Feb, BMI 45.0-49.9, adult Z68.42 ; Carpal tunnel syndrome on left G56.02 and Social anxiety disorder F40.10 [place] [address] [place] [id number] [address] [place] [address] Jan, Bipolar II disorder F31.81 ; ADD (attention deficit disorder) without hyperactivity F98.8 ; Social anxiety disorder F40.10 and Stimulant abuse F15.10 [place] [address] [place] [id number] [address] [place] [address] Dec, Episode of recurrent major d epressive disorder, unspecified depression episode severity F33.9 ; Other chronic pain G89.29 ; Radiculopathy, lumbar region M54.16 ; Edema of lower extremity R60.0 and BMI 45.0-49.9, adult Z68.42 [facility] [address] [facility] [id number] [address] [place] [address] Jun, [facility] [address] [facility] [id number] [address] [place] [address] Jan, Joint pain M25.50 [facility] [address] [place] [id number] [address] [place] [address] Jan, Wellness examination Z00.00 ; Pain in right knee M25.561 ; Pain in left knee M25.562 ; Edema, unspecified type R60.9 and Drug abuse counseling and surveillance of drug abuser Z71.51 [facility] [address] [place] [id number] [address] [place] [address] November, [facility] [address] [place] [id number] [address] [place] [address] Oct, [facility] [address] [place] [id number] [address] [place] [address] Oct, ADD (attention deficit disor josselin) F90.0 ; Social anxiety disorder F40.10 and Manic bipolar I disorder in partial remission F31.73 [facility] [address] [place] [id number] [address] [place] [address] Aug, [facility] [address] [place] [id number] [address] [place] [address] Aug, [facility] [address] [facility] [id number] [address] [place] [address] Aug, [facility] [address] [facility] [id number] [address] [place] [address] Jul, [facility] [address] [facility] [id number] [address] [place] [address] Jul, [facility] [address] [place] [id number] [address] [place] [address] Jul, [facility] [address] [facility] [id number] [address] [place] [address] Jun, [facility] [address] [facility] [id number] [address] [place] [address] Jun, [facility] [address] [facility] [id number] [address] [place] [address] Jun, [facility] [address] [place] [id number] [address] [place] [address] Jun, [facility] [address] [facility] [id number] [address] [place] [address] May, Joint pain M25.50 ; ADD (att ention deficit disorder) F90.0 ; Edema R60.9 and Insomnia G47.00 [facility] [address] [facility] [id number] [address] [place] [address] May, [facility] [address] [place] [id number] [place] [address] May, [facility] [address] [place] [id number] [address] [place] [address] May, [facility] [address] [address] May, Left wrist pain M25.532 ; Si nusitis J32.9 and Drug abuse counseling and surveillance of drug abuser Z71.51 [facility] [address] [place] [id number] [address] [place] [address] Apr, [facility] [address] [facility] [id number] [address] [place] [address] Apr, [facility] [address] [place] [id number] [address] [place] [address] Apr, [facility] [address] [facility] [id number] [address] [place] [address] Apr, [facility] [address] [place] [id number] [address] [place] [address] Apr, [facility] [address] [id number] [address] [place] [address] Apr, [facility] [address] [id number] [address] [place] [address] Apr, [facility] [address] [id number] [address] [place] [address] Mar, Unspecified venous (peripher al) insufficiency 459.81 ; Bipolar I disorder, most recent episode (or current) manic, moderate 296.42 ; Social phobia 300.23 ; Attention deficit disorder of childhood without mention of hyperactivity 314.00 ; Pain in joint, lower leg 719.46 ; Thrombosis 453.9 and Chronic pain 338.29 [facility] [address] [facility] [id number] [address] [place] [address] Mar, [facility] [address] [facility] [id number] [address] [place] [address] Mar, [facility] [address] [facility] [id number] [address] [place] [address] Mar, [facility] [address] [id number] [address] [place] [address] Mar, [facility] [address] [facility] [id number] [address] [place] [address] Mar, [facility] [address] [facility] [id number] [address] [place] [address] Mar, [facility] [address] [facility] [id number] [address] [place] [address] 10 Mar, 2015 Manic bipolar I disorder in partial remission 296.45 ; Social phobia 300.23 and Attention deficit disorder of childhood without mention of hyperactivity 314.00 [facility] [address] [facility] [id number] [address] [place] [address] Mar, [facility] [address] [facility] [id number] [address] [place] [address] Feb, [facility] [address] [place] [id number] [address] [place] [address] Feb, Thrombosis 453.9 ; Unspecifi ed venous (peripheral) insufficiency 459.81 ; Bipolar I disorder, most recent episode (or current) manic, moderate 296.42 ; Social phobia 300.23 ; Attention deficit disorder of childhood without mention of hyperactivity 314.00 ; Pain in joint, lower leg 719.46 and Edema 782.3 [facility] [address] [address] Feb, [facility] [address] [place] [id number] [place] [address] Feb, Social phobia 300.23 ; Atten tion deficit disorder of childhood without mention of hyperactivity 314.00 and Bipolar I disorder, most recent episode manic, in partial remission 296.45 [place] [address] [place] [id number] [address] [place] [address] Jan, [place] [address] [address] Jan, [facility] [address] [place] [id number] [place] [address] Jan, Unspecified venous (peripher al) insufficiency 459.81 and Thrombophlebitis 451.9 [place] [address] [place] [id number] [address] [place] [address] Jan, [facility] [address] [place] [id number] [address] [place] [address] Dec, Headache 784.0 and Back pain 724.5 [place] [address] [place] [id number] [address] [place] [address] Dec, [place] [address] [address] Dec, Bipolar I disorder, most rec ent episode (or current) manic, moderate 296.42 ; Attention deficit disorder of childhood without mention of hyperactivity 314.00 and Social phobia 300.23 [facility] [address] [id number] [address] [place] [address], [place] [address] November, [facility] [address] [id number] [address] [place] [address], [place] [address] November, [facility] [address] [id number] [address] [place] [address], [place] [address] Oct, [facility] [address] [id number] [address] [place] [address], [place] [address] Oct, [facility] [address] [id number] [address] [place] [address], [place] [address] Sep, [facility] [address] [id number] [address] [place] [address], [place] [address] Sep, [facility] [address] [id number] [address] [place] [address], [place] [address] Aug, [facility] [address] [id number] [address] [place] [address], [place] [address] Aug, [facility] [address] [id number] [address] [place] [address], [place] [address] Aug, [facility] [address] [id number] [address] [place] [address], [place] [address] Aug, [facility] [address] [id number] [address] [place] [address], [place] [address] Aug, [facility] [address] [id number] [address] [place] [address] Aug, [facility] [address] [id number] [address] [place] [address], [place] [address] Aug, [facility] [address] [id number] [address] [place] [address], [place] [address] Jul, [facility] [address] [id number] [address] [place] [address] Jul, [facility] [address] [id number] [address] [place] [address] Jun, [facility] [address] [id number] [address] [place] [address], [place] [address] Jun, [facility] [address] [id number] [address] [place] [address], [place] [address] May, [facility] [address] [id number] [address] [place] [address], [place] [address] May, [facility] [address] [id number] [address] [place] [address], [place] [address] May, [facility] [address] [id number] [address] [place] [address], [place] [address] May, [facility] [address] [id number] [address] [place] [address], [place] [address] May, [facility] [address] [id number] [address] [place] [address], [place] [address] May, [facility] [address] [id number] [address] [place] [address], [place] [address] Apr, [facility] [address] [id number] [address] [place] [address], [place] [address] Apr, [facility] [address] [id number] [address] [place] [address], [place] [address] Apr, [facility] [address] [id number] [address] [place] [address], [place] [address] Apr, [facility] [address] [id number] [address] [place] [address], [place] [address] Mar, [facility] [address] [id number] [address] [place] [address], [place] [address] 22 Mar, 2014 [facility] [address] [id number] [address] [place] [address], [place] [address] 19 Mar, 2014 [facility] [address] [id number] [address] [place] [address], [place] [address] 16 Mar, 2014 [facility] [address] [id number] [facility] [place] [address] 16 Mar, 2013 [facility] [address] [id number] [facility] [place] [address] 15 Mar, 2013 [facility] [address] [id number] [facility] [place] [address] 11 Mar, 2013 [facility] [address] [id number] [address] [place] [address], [place] [address] 11 Mar, 2013 [facility] [address] [id number] [facility] [place] [address] 11 Mar, 2013 [facility] [address] [id number] [address] [place] [address], [place] [address] 11 Mar, 2013 [facility] [address] [id number] [address] [place] [address], [place] [address] 10 Mar, 2013 [facility] [address] [id number] [address] [place] [address], [place] [address] 09 Mar, 2013 [facility] [address] [id number] [address] [place] [address], [place] [address] 09 Mar, 2013 [facility] [address] [id number] [address] [place] [address], [place] [address] 02 Mar, 2013 [facility] [address] [id number] [address] [place] [address], [place] [address] 02 Mar, 2013 [facility] [address] [id number] [address] [place] [address], [place] [address] Feb, [facility] [address] [id number] [address] [place] [address], [place] [address] Feb, [facility] [address] [id number] [address] [place] [address], [place] [address] Feb, [facility] [address] [id number] [address] [place] [address], [place] [address] Feb, [facility] [address] [id number] [address] [place] [address], [place] [address] Feb, [facility] [address] [id number] [facility] [place] [address] Feb, [facility] [address] [id number] [address] [place] [address], [place] [address] Feb, [facility] [address] [id number] [address] [place] [address], [place] [address] Feb, [facility] [address] [id number] [address] [place] [address], [place] [address] Feb, [facility] [address] [id number] [address] [place] [address], [place] [address] Feb, [facility] [address] [id number] [address] [place] [address], [place] [address] Feb, [facility] [address] [id number] [address] [place] [address], [place] [address] Feb, [facility] [address] [id number] [address] [place] [address], [place] [address] Feb, [facility] [address] [id number] [address] [place] [address], [place] [address] Feb, [facility] [address] [id number] [address] [place] [address], [place] [address] Jan, [facility] [address] [id number] [address] [place] [address], [place] [address] Jan, [facility] [address] [id number] [address] [place] [address], [place] [address] Jan, [facility] [address] [id number] [address] [place] [address], [place] [address] Jan, [facility] [address] [id number] [address] [place] [address], [place] [address] Jan, [facility] [address] [id number] [address] [place] [address], [place] [address] Jan, [facility] [address] [id number] [address] [place] [address], [place] [address] Jan, [facility] [address] [id number] [facility] [place] [address] Dec, [facility] [address] [id number] [address] [place] [address], [place] [address] Dec, [facility] [address] [id number] [address] [place] [address], [place] [address] Dec, [facility] [address] [id number] [address] [place] [address], [place] [address] Dec, [facility] [address] [id number] [address] [place] [address], [place] [address] Dec, [facility] [address] [id number] [address] [place] [address], [place] [address] Dec, [facility] [address] [id number] [address] [place] [address], [place] [address] Dec, [facility] [address] [id number] [address] [place] [address], [place] [address] Dec, [facility] [address] [id number] [address] [place] [address], [place] [address] Dec, [facility] [address] [id number] [address] [place] [address], [place] [address] November, [facility] [address] [id number] [address] [place] [address], [place] [address] November, [facility] [address] [id number] [address] [place] [address], [place] [address] November, [facility] [address] [id number] [address] [place] [address], [place] [address] November, [facility] [address] [id number] [address] [place] [address], [place] [address] November, [facility] [address] [id number] [address] [place] [address], [place] [address] November, [facility] [address] [id number] [address] [place] [address], [place] [address] November, [facility] [address] [id number] [address] [place] [address], [place] [address] November, [facility] [address] [id number] [address] [place] [address], [place] [address] November, [facility] [address] [id number] [address] [place] [address], [place] [address] November, [facility] [address] [id number] [address] [place] [address], [place] [address] November, [facility] [address] [id number] [address] [place] [address], [place] [address] November, [facility] [address] [id number] [address] [place] [address], [place] [address] November, [facility] [address] [id number] [address] [place] [address], [place] [address] November, [facility] [address] [id number] [address] [place] [address], [place] [address] Oct, [facility] [address] [id number] [address] [place] [address], [place] [address] Oct, [facility] [address] [id number] [address] [place] [address], [place] [address] Oct, [facility] [address] [id number] [address] [place] [address], [place] [address] Oct, [facility] [address] [id number] [address] [place] [address], [place] [address] Oct, [facility] [address] [id number] [address] [place] [address], [place] [address] Oct, [facility] [address] [id number] [address] [place] [address], [place] [address] Sep, [facility] [address] [id number] [address] [place] [address], [place] [address] Sep, [facility] [address] [id number] [address] [place] [address], [place] [address] Sep, [facility] [address] [id number] [address] [place] [address], [place] [address] Sep, [facility] [address] [id number] [address] [place] [address], [place] [address] Aug, [facility] [address] [id number] [address] [place] [address], [place] [address] Aug, [facility] [address] [id number] [address] [place] [address], [place] [address] Aug, [facility] [address] [id number] [address] [place] [address], [place] [address] Aug, [facility] [address] [id number] [address] [place] [address], [place] [address] Jul, [facility] [address] [id number] [address] [place] [address], [place] [address] Jul, [facility] [address] [id number] [address] [place] [address], [place] [address] Jul, [facility] [address] [id number] [address] [place] [address], [place] [address] Jul, [facility] [address] [id number] [address] [place] [address], [place] [address] Jul, [facility] [address] [id number] [address] [place] [address], [place] [address] Jul, [facility] [address] [id number] [address] [place] [address], [place] [address] Jul, [facility] [address] [id number] [address] [place] [address], [place] [address] Jun, [facility] [address] [id number] [address] [place] [address], [place] [address] Jun, [facility] [address] [id number] [address] [place] [address], [place] [address] 17 Jun, 2013 [facility] [address] [id number] [address] [place] [address], [place] [address] 17 Jun, 2013 [facility] [address] [id number] [address] [place] [address], [place] [address] 13 Jun, 2013 [facility] [address] [id number] [address] [place] [address], [place] [address] 13 Jun, 2013 [facility] [address] [id number] [address] [place] [address], [place] [address] 07 May, 2013 [facility] [address] [id number] [address] [place] [address], [place] [address] 07 May, 2013 [facility] [address] [id number] [address] [place] [address], [place] [address] 15 Apr, 2013 [facility] [address] [id number] [address] [place] [address], [place] [address] 15 Apr, 2013 [facility] [address] [id number] [address] [place] [address], [place] [address] 10 Apr, 2013 [facility] [address] [id number] [address] [place] [address], [place] [address] 10 Apr, 2013 [facility] [address] [id number] [address] [place] [address], [place] [address] 08 Apr, 2013 [facility] [address] [id number] [address] [place] [address], [place] [address] 24 Mar, 2013 [facility] [address] [id number] [address] [place] [address], [place] [address] 19 Mar, 2013 [facility] [address] [id number] [address] [place] [address], [place] [address] 12 Mar, 2013 [facility] [address] [id number] [address] [place] [address], [place] [address] 10 Mar, 2013 [facility] [address] [id number] [address] [place] [address], [place] [address] Feb, [facility] [address] [id number] [address] [place] [address], [place] [address] Feb, [facility] [address] [id number] [address] [place] [address], [place] [address] Jan, [facility] [address] [id number] [address] [place] [address], [place] [address] Jan, [facility] [address] [id number] [address] [place] [address], [place] [address] Jan, [facility] [address] [id number] [address] [place] [address], [place] [address] Jan, [facility] [address] [id number] [address] [place] [address], [place] [address] Dec, [facility] [address] [id number] [address] [place] [address], [place] [address] Dec, [facility] [address] [id number] [address] [place] [address], [place] [address] Dec, [facility] [address] [id number] [address] [place] [address], [place] [address] Dec, [facility] [address] [id number] [address] [place] [address], [place] [address] November, [facility] [address] [id number] [address] [place] [address], [place] [address] November, [facility] [address] [id number] [address] [place] [address], [place] [address] Oct, [facility] [address] [id number] [address] [place] [address], [place] [address] Sep, [facility] [address] [id number] [address] [place] [address], [place] [address] Sep, [facility] [address] [id number] [address] [place] [address], [place] [address] Aug, [facility] [address] [id number] [address] [place] [address], [place] [address] 13 Aug, 2012 [facility] [address] [id number] [address] [place] [address], [place] [address] Jul, [facility] [address] [id number] [address] [place] [address], [place] [address] 09 Jul, 2012 [facility] [address] [id number] [address] [place] [address], [place] [address] Jul, [facility] [address] [id number] [address] [place] [address], [place] [address] Jun, [facility] [address] [id number] [address] [place] [address], [place] [address] 28 Jun, 2012 [facility] [address] [id number] [address] [place] [address], [place] [address] 15 Jun, 2012 [facility] [address] [id number] [address] [place] [address], [place] [address] 15 Jun, 2012 [facility] [address] [id number] [address] [place] [address], [place] [address] May, [facility] [address] [id number] [address] [place] [address], [place] [address] 20 May, 2012 [facility] [address] [id number] [address] [place] [address], [place] [address] 19 May, 2012 [facility] [address] [id number] [address] [place] [address], [place] [address] 14 May, 2012 [facility] [address] [id number] [address] [place] [address], [place] [address] 14 May, 2012 [facility] [address] [id number] [address] [place] [address], [place] [address] 06 May, 2012 [facility] [address] [id number] [address] [place] [address], [place] [address] 06 May, 2012 [facility] [address] [id number] [address] [place] [address], [place] [address] Apr, [facility] [address] [id number] [address] [place] [address], [place] [address] Apr, [facility] [address] [id number] [address] [place] [address], [place] [address] Apr, [facility] [address] [id number] [address] [place] [address], [place] [address] Apr, [facility] [address] [id number] [address] [place] [address], [place] [address] Apr, [facility] [address] [id number] [address] [place] [address], [place] [address] Apr, [facility] [address] [id number] [address] [place] [address], [place] [address] Apr, [facility] [address] [id number] [address] [place] [address], [place] [address] Apr, [facility] [address] [id number] [address] [place] [address], [place] [address] Jan, [facility] [address] [id number] [address] [place] [address], [place] [address] Jan, [facility] [address] [id number] [address] [place] [address], [place] [address] Dec, [facility] [address] [id number] [address] [place] [address], [place] [address] November, [facility] [address] [id number] [address] [place] [address], [place] [address] Oct, [facility] [address] [id number] [address] [place] [address], [place] [address] Oct, [facility] [address] [id number] [address] [place] [address], [place] [address] Oct, [facility] [address] [id number] [address] [place] [address], [place] [address] Oct, [facility] [address] [id number] [address] [place] [address], [place] [address] Sep, [facility] [address] [id number] [address] [place] [address], [place] [address] Sep, [facility] [address] [id number] [address] [place] [address], [place] [address] 26 Sep, 2011 [facility] [address] [id number] [address] [place] [address], [place] [address] 13 Jun, 2011 [facility] [address] [id number] [address] [place] [address], [place] [address] 13 Jun, 2011 [facility] [address] [id number] [address] [place] [address], [place] [address] 22 May, 2011 [facility] [address] [id number] [address] [place] [address], [place] [address] 14 Jan, 2011 [facility] [address] [id number] [address] [place] [address], [place] [address] November, [facility] [address] [id number] [address] [place] [address], [place] [address] 14 Oct, 2010 [facility] [address] [id number] [address] [place] [address], [place] [address] 16 Sep, 2010 [facility] [address] [id number] [address] [place] [address], [place] [address] 30 May, 2010 [facility] [address] [id number] [address] [place] [address], [place] [address] Jul, [facility] [address] [id number] [address] [place] [address], [place] [address] 23 Jun, 2009 [facility] [address] [id number] [address] [place] [address], [place] [address] Jun, [facility] [address] [id number] [address] [place] [address], [place] [address] 15 Jun, 2009 [facility] [address] [id number] [address] [place] [address], [place] [address] 15 Jun, 2009 [facility] [address] [id number] [address] [place] [address] May, [facility] [address] [facility] [id number] [address] [place] [address] May, [facility] [address] [facility] [id number] [address] [place] [address] Apr, [facility] [address] [facility] [id number] [address] [place] [address] Apr, [facility] [address] [facility] [id number] [address] [place] [address] Apr, IMMUNIZATIONS No Known Immunizations SOCIAL HISTORY [...] right 06/1996 Surgical History multiple knee injections ([id number]) Surgical History left knee replacement 06/11 Hospitalization History Knee surgery- x 3 days 06/11
--- OUTSIDE RECORDS SUMMARY | 2019-12-16 20:33 | XMS REPORT ---
Author Author Patti AGEE Organization [facility] Address [address] [place] [address] Care Team Providers Care Parts Chaser Name Role Phone GEOVANNY AGEE Unavailable PROBLEMS Type Condition ICD9-CM Code PLE24-YU Code Onset Dates Condition S tatus SNOMED Code Problem ADD (attention deficit disorder) F90.0 Active 832848089 Problem Drug abuse counseling and surveillance of drug abuser Z71.51 Active 724704976 Problem Insomnia G47.00 Active 238195799 Problem Joint pain M25.50 Active 78198787 Problem Edema, unspecified type R60.9 Active 135474886 Problem Episode of recurrent major d epressive disorder, unspecified depression episode severity F33.9 Active 048623676 Problem Venous insufficiency (chronic) (peripheral) I87.2 Active [id number] Problem Carpal tunnel syndrome on left G56.02 Active [id number] Problem Manic bipolar I disorder in partial remission F31. 73 Active 65549091 Problem Bipolar affective disorder, currently depressed, moderate F31.32 Active 825574536 Problem Social anxiety disorder F40.10 Active 16021997 Problem Other chronic pain G89.29 Active 8 5346308 Problem Stimulant abuse F15.10 Active 4135 98053 Problem Bipolar II disorder F31.81 Active 84492237 Problem ADD (attention deficit disorder) without hyperactivity F98.8 Active 24933987 ALLERGIES No Information ENCOUNTERS Encounter Location Date Diagnosis [facility] [address] [facility] [id number] [address] [place] [address] Feb, [facility] [address] [facility] [id number] [address] [place] [address] Jan, Bipolar affective disorder, currently depressed, moderate F31.32 ; Social anxiety disorder F40.10 and Morbid obesity E66.01 [facility] [address] [facility] [id number] [address] [place] [address] May, Screening for lipid disorder s Z13.220 [facility] [address] [id number] [address] [place] [address] May, Carpal tunnel syndrome on le ft G56.02 ; Social anxiety disorder F40.10 and Screening for lipid disorders Z13.220 [facility] [address] [facility] [id number] [address] [place] [address] 11 Apr, 2018 Bipolar II disorder F31.81 ; Social anxiety disorder F40.10 ; ADD (attention deficit disorder) without hyperactivity F98.8 and BMI 45.0-49.9, adult Z68.42 [place] [address] [facility] [id number] [address] [place] [phone] 05 Mar, 2018 [place] [address] [facility] [id number] [address] [place] [phone] 17 Feb, 2018 BMI 45.0-49.9, adult Z68.42 ; Carpal tunnel syndrome on left G56.02 and Social anxiety disorder F40.10 [place] [address] [place] [id number] [address] [place] [phone] 09 Jan, 2018 Bipolar II disorder F31.81 ; ADD (attention deficit disorder) without hyperactivity F98.8 ; Social anxiety disorder F40.10 and Stimulant abuse F15.10 [place] [address] [place] [id number] [address] [place] [address] Dec, Episode of recurrent major d epressive disorder, unspecified depression episode severity F33.9 ; Other chronic pain G89.29 ; Radiculopathy, lumbar region M54.16 ; Edema of lower extremity R60.0 and BMI 45.0-49.9, adult Z68.42 [place] [address] [facility] [id number] [address] [place] [phone] Jun, [place] [address] [facility] [id number] [address] [place] [address] Jan, Joint pain M25.50 [place] [address] [place] [id number] [address] [place] [address] Jan, Wellness examination Z00.00 ; Pain in right knee M25.561 ; Pain in left knee M25.562 ; Edema, unspecified type R60.9 and Drug abuse counseling and surveillance of drug abuser Z71.51 [facility] [address] [id number] [address] [place] [address] November, [facility] [address] [id number] [address] [place] [phone] Oct, [facility] [address] [id number] [address] [place] [address] Oct, ADD (attention deficit disor josselin) F90.0 ; Social anxiety disorder F40.10 and Manic bipolar I disorder in partial remission F31.73 [facility] [address] [facility] [id number] [address] [place] [phone] Aug, [facility] [address] [id number] [address] [place] [phone] Aug, [facility] [address] [id number] [address] [place] [address] Aug, [facility] [address] [facility] [id number] [address] [place] [address] Jul, [facility] [address] [id number] [address] [place] [phone] Jul, [facility] [address] [id number] [address] [place] [address] Jul, [facility] [address] [id number] [address] [place] [phone] Jun, [facility] [address] [id number] [address] [place] [phone] Jun, [facility] [address] [facility] [id number] [address] [place] [phone] Jun, [facility] [address] [id number] [address] [place] [phone] Jun, [facility] [address] [facility] [id number] [address] [place] [address] May, Joint pain M25.50 ; ADD (att ention deficit disorder) F90.0 ; Edema R60.9 and Insomnia G47.00 [facility] [address] [place] [id number] [place] [address] May, [facility] [address] [place] [id number] [place] [address] May, [facility] [address] [place] [id number] [place] [address] May, [facility] [address] [address] May, Left wrist pain M25.532 ; Si nusitis J32.9 and Drug abuse counseling and surveillance of drug abuser Z71.51 [facility] [address] [address] Apr, [facility] [address] [address] Apr, [facility] [address] [place] [id number] [place] [address] Apr, [facility] [address] [place] [id number] [address] [place] [address] Apr, [facility] [address] [place] [id number] [place] [address] Apr, [facility] [address] [place] [id number] [place] [address] Apr, [facility] [address] [place] [id number] [place] [address] Apr, [facility] [address] [place] [id number] [address] [place] [address] Mar, Unspecified venous (peripher al) insufficiency 459.81 ; Bipolar I disorder, most recent episode (or current) manic, moderate 296.42 ; Social phobia 300.23 ; Attention deficit disorder of childhood without mention of hyperactivity 314.00 ; Pain in joint, lower leg 719.46 ; Thrombosis 453.9 and Chronic pain 338.29 [facility] [address] [facility] [id number] [address] [place] [address] Mar, [facility] [address] [facility] [id number] [address] [place] [phone] Mar, [facility] [address] [facility] [id number] [address] [place] [phone] Mar, [facility] [address] [facility] [id number] [address] [place] [phone] Mar, [facility] [address] [facility] [id number] [address] [place] [phone] Mar, [facility] [address] [facility] [id number] [address] [place] [phone] Mar, [facility] [address] [facility] [id number] [address] [place] [address] Mar, Manic bipolar I disorder in partial remission 296.45 ; Social phobia 300.23 and Attention deficit disorder of childhood without mention of hyperactivity 314.00 [facility] [address] [facility] [id number] [address] [place] [phone] Mar, [facility] [address] [facility] [id number] [address] [place] [phone] Feb, [facility] [address] [facility] [id number] [address] [place] [address] Feb, Thrombosis 453.9 ; Unspecifi ed venous (peripheral) insufficiency 459.81 ; Bipolar I disorder, most recent episode (or current) manic, moderate 296.42 ; Social phobia 300.23 ; Attention deficit disorder of childhood without mention of hyperactivity 314.00 ; Pain in joint, lower leg 719.46 and Edema 782.3 [facility] [address] [place] [id number] [address] [place] [phone] Feb, [facility] [address] [facility] [id number] [address] [place] [address] Feb, Social phobia 300.23 ; Atten tion deficit disorder of childhood without mention of hyperactivity 314.00 and Bipolar I disorder, most recent episode manic, in partial remission 296.45 [facility] [address] [facility] [id number] [address] [place] [phone] Jan, [facility] [address] [facility] [id number] [address] [place] [address] Jan, [facility] [address] [facility] [id number] [address] [place] [address] Jan, Unspecified venous (peripher al) insufficiency 459.81 and Thrombophlebitis 451.9 [facility] [address] [place] [id number] [address] [place] [phone] Jan, [facility] [address] [facility] [id number] [address] [place] [phone] Dec, Headache 784.0 and Back pain 724.5 [facility] [address] [facility] [id number] [address] [place] [phone] Dec, [facility] [address] [place] [id number] [address] [place] [address] Dec, Bipolar I disorder, most rec ent episode (or current) manic, moderate 296.42 ; Attention deficit disorder of childhood without mention of hyperactivity 314.00 and Social phobia 300.23 [facility] [address] [facility] [id number] [address] [place] [phone] November, [facility] [address] [facility] [id number] [address] [place] [phone] November, [facility] [address] [facility] [id number] [address] [place] [phone] Oct, [facility] [address] [id number] [address] [place] [address], [place] [address] Oct, [facility] [address] [id number] [address] [place] [address], [place] [address] Sep, [facility] [address] [id number] [address] [place] [address], [place] [address] Sep, [facility] [address] [id number] [address] [place] [address], [place] [address] Aug, 2014 [facility] [address] [id number] [address] [place] [address], [place] [address] Aug, 2014 [facility] [address] [id number] [address] [place] [address], [place] [address] Aug, 2014 [facility] [address] [id number] [address] [place] [address], [place] [address] Aug, 2014 [facility] [address] [id number] [address] [place] [address], [place] [address] Aug, [facility] [address] [id number] [address] [place] [address], [place] [address] Aug, [facility] [address] [id number] [address] [place] [address], [place] [address] Aug, [facility] [address] [id number] [address] [place] [address], [place] [address] Jul, [facility] [address] [id number] [address] [place] [address], [place] [address] Jul, [facility] [address] [id number] [address] [place] [address], [place] [address] Jun, [facility] [address] [id number] [address] [place] [address], [place] [address] Jun, [facility] [address] [id number] [address] [place] [address], [place] [address] May, [facility] [address] [id number] [address] [place] [address], [place] [address] May, [facility] [address] [id number] [address] [place] [address], [place] [address] May, [facility] [address] [id number] [address] [place] [address], [place] [address] May, [facility] [address] [id number] [address] [place] [address], [place] [address] May, [facility] [address] [id number] [address] [place] [address], [place] [address] May, [facility] [address] [id number] [address] [place] [address], [place] [address] Apr, [facility] [address] [id number] [address] [place] [address], [place] [address] Apr, [facility] [address] [id number] [address] [place] [address], [place] [address] Apr, [facility] [address] [id number] [address] [place] [address], [place] [address] Apr, [facility] [address] [id number] [address] [place] [address], [place] [address] 22 Mar, 2014 [facility] [address] [id number] [address] [place] [address], [place] [address] 22 Mar, 2014 [facility] [address] [id number] [address] [place] [address], [place] [address] 19 Mar, 2014 [facility] [address] [id number] [address] [place] [address], [place] [address] 16 Mar, 2014 [facility] [address] [id number] [address] [place] [address], [place] [address] 16 Mar, 2014 [facility] [address] [id number] [address] [place] [address], [place] [address] 15 Mar, 2014 [facility] [address] [id number] [address] [place] [address], [place] [address] 11 Mar, 2014 [facility] [address] [id number] [address] [place] [address], [place] [address] 11 Mar, 2013 [facility] [address] [id number] [facility] [place] [address] 11 Mar, 2013 [facility] [address] [id number] [address] [place] [address], [place] [address] 11 Mar, 2013 [facility] [address] [id number] [address] [place] [address], [place] [address] 10 Mar, 2013 [facility] [address] [id number] [address] [place] [address], [place] [address] Mar, 2013 [facility] [address] [id number] [address] [place] [address], [place] [address] Mar, 2013 [facility] [address] [id number] [address] [place] [address], [place] [address] Mar, 2013 [facility] [address] [id number] [address] [place] [address], [place] [address] Mar, 2013 [facility] [address] [id number] [address] [place] [address], [place] [address] Feb, [facility] [address] [id number] [address] [place] [address], [place] [address] Feb, [facility] [address] [id number] [address] [place] [address], [place] [address] Feb, [facility] [address] [id number] [address] [place] [address], [place] [address] Feb, [facility] [address] [id number] [address] [place] [address], [place] [address] Feb, [facility] [address] [id number] [address] [place] [address], [place] [address] Feb, [facility] [address] [id number] [address] [place] [address], [place] [address] Feb, [facility] [address] [id number] [address] [place] [address], [place] [address] Feb, [facility] [address] [id number] [facility] [place] [address] Feb, [facility] [address] [id number] [facility] [place] [address] Feb, [facility] [address] [id number] [address] [place] [address], [place] [address] Feb, [facility] [address] [id number] [address] [place] [address], [place] [address] Feb, [facility] [address] [id number] [address] [place] [address], [place] [address] Feb, [facility] [address] [id number] [address] [place] [address], [place] [address] Feb, [facility] [address] [id number] [address] [place] [address], [place] [address] Jan, [facility] [address] [id number] [address] [place] [address], [place] [address] Jan, [facility] [address] [id number] [address] [place] [address], [place] [address] Jan, [facility] [address] [id number] [address] [place] [address], [place] [address] Jan, [facility] [address] [id number] [address] [place] [address], [place] [address] Jan, [facility] [address] [id number] [address] [place] [address], [place] [address] Jan, [facility] [address] [id number] [address] [place] [address], [place] [address] Jan, [facility] [address] [id number] [address] [place] [address], [place] [address] Dec, [facility] [address] [id number] [address] [place] [address], [place] [address] Dec, [facility] [address] [id number] [address] [place] [address], [place] [address] Dec, [facility] [address] [id number] [facility] [place] [address] Dec, [facility] [address] [id number] [address] [place] [address], [place] [address] Dec, [facility] [address] [id number] [address] [place] [address], [place] [address] Dec, [facility] [address] [id number] [address] [place] [address], [place] [address] Dec, [facility] [address] [id number] [address] [place] [address], [place] [address] Dec, [facility] [address] [id number] [address] [place] [address], [place] [address] Dec, [facility] [address] [id number] [address] [place] [address], [place] [address] November, [facility] [address] [id number] [address] [place] [address], [place] [address] November, [facility] [address] [id number] [address] [place] [address], [place] [address] November, [facility] [address] [id number] [address] [place] [address], [place] [address] November, [facility] [address] [id number] [address] [place] [address], [place] [address] November, [facility] [address] [id number] [address] [place] [address], [place] [address] November, [facility] [address] [id number] [address] [place] [address], [place] [address] November, [facility] [address] [id number] [address] [place] [address], [place] [address] November, [facility] [address] [id number] [address] [place] [address], [place] [address] November, [facility] [address] [id number] [address] [place] [address], [place] [address] November, [facility] [address] [id number] [address] [place] [address], [place] [address] November, [facility] [address] [id number] [address] [place] [address], [place] [address] November, [facility] [address] [id number] [address] [place] [address], [place] [address] November, [facility] [address] [id number] [address] [place] [address], [place] [address] November, [facility] [address] [id number] [address] [place] [address], [place] [address] Oct, [facility] [address] [id number] [address] [place] [address], [place] [address] Oct, [facility] [address] [id number] [address] [place] [address], [place] [address] Oct, [facility] [address] [id number] [address] [place] [address], [place] [address] Oct, [facility] [address] [id number] [address] [place] [address], [place] [address] Oct, [facility] [address] [id number] [address] [place] [address], [place] [address] Oct, [facility] [address] [id number] [address] [place] [address], [place] [address] Sep, [facility] [address] [id number] [address] [place] [address], [place] [address] Sep, [facility] [address] [id number] [address] [place] [address], [place] [address] Sep, [facility] [address] [id number] [address] [place] [address], [place] [address] Sep, [facility] [address] [id number] [address] [place] [address], [place] [address] Aug, [facility] [place] [address] [id number] [address] [place] [address], [place] [address] Aug, [facility] [address] [id number] [address] [place] [address], [place] [address] Aug, [facility] [address] [id number] [address] [place] [address], [place] [address] Aug, [facility] [address] [id number] [address] [place] [address], [place] [address] Jul, [facility] [address] [id number] [address] [place] [address], [place] [address] Jul, [facility] [address] [id number] [address] [place] [address], [place] [address] Jul, [facility] [address] [id number] [address] [place] [address], [place] [address] Jul, [facility] [address] [id number] [address] [place] [address], [place] [address] Jul, [facility] [address] [id number] [address] [place] [address], [place] [address] Jul, [facility] [address] [id number] [address] [place] [address], [place] [address] Jul, [facility] [address] [id number] [address] [place] [address], [place] [address] Jun, [facility] [address] [id number] [address] [place] [address], [place] [address] Jun, [facility] [address] [id number] [address] [place] [address], [place] [address] 17 Jun, 2013 [facility] [address] [id number] [address] [place] [address], [place] [address] 17 Jun, 2013 [facility] [address] [id number] [address] [place] [address], [place] [address] 13 Jun, 2013 [facility] [address] [id number] [address] [place] [address], [place] [address] 13 Jun, 2013 [facility] [address] [id number] [address] [place] [address], [place] [address] 07 May, 2013 [facility] [address] [id number] [address] [place] [address], [place] [address] 07 May, 2013 [facility] [address] [id number] [address] [place] [address], [place] [address] 15 Apr, 2013 [facility] [address] [id number] [address] [place] [address], [place] [address] 15 Apr, 2013 [facility] [address] [id number] [address] [place] [address], [place] [address] 10 Apr, 2013 [facility] [address] [id number] [address] [place] [address], [place] [address] 10 Apr, 2013 [facility] [address] [id number] [address] [place] [address], [place] [address] 08 Apr, 2013 [facility] [address] [id number] [address] [place] [address], [place] [address] 24 Mar, 2013 [facility] [address] [id number] [address] [place] [address], [place] [address] 19 Mar, 2013 [facility] [address] [id number] [address] [place] [address], [place] [address] 12 Mar, 2013 [facility] [address] [id number] [address] [place] [address], [place] [address] 10 Mar, 2013 [facility] [address] [id number] [address] [place] [address], [place] [address] 16 Feb, 2013 [facility] [address] [id number] [address] [place] [address], [place] [address] 06 Feb, 2013 [facility] [address] [id number] [address] [place] [address], [place] [address] 18 Jan, 2013 [facility] [address] [id number] [address] [place] [address], [place] [address] Jan, [facility] [address] [id number] [address] [place] [address], [place] [address] Jan, [facility] [address] [id number] [address] [place] [address], [place] [address] Jan, [facility] [address] [id number] [address] [place] [address], [place] [address] Dec, [facility] [address] [id number] [address] [place] [address], [place] [address] Dec, [facility] [address] [id number] [address] [place] [address], [place] [address] Dec, [facility] [address] [id number] [address] [place] [address], [place] [address] Dec, [facility] [address] [id number] [address] [place] [address], [place] [address] November, [facility] [address] [id number] [address] [place] [address], [place] [address] November, [facility] [address] [id number] [address] [place] [address], [place] [address] Oct, [facility] [address] [id number] [address] [place] [address], [place] [address] Sep, [facility] [address] [id number] [address] [place] [address], [place] [address] Sep, [facility] [address] [id number] [address] [place] [address], [place] [address] Aug, [facility] [address] [id number] [address] [place] [address], [place] [address] Aug, [facility] [address] [id number] [address] [place] [address], [place] [address] Jul, [facility] [address] [id number] [address] [place] [address], [place] [address] Jul, [facility] [address] [id number] [address] [place] [address], [place] [address] Jul, [facility] [address] [id number] [address] [place] [address], [place] [address] Jun, [facility] [address] [id number] [address] [place] [address], [place] [address] Jun, [facility] [address] [id number] [address] [place] [address], [place] [address] 15 Jun, 2012 [facility] [address] [id number] [address] [place] [address], [place] [address] 15 Jun, 2012 [facility] [address] [id number] [address] [place] [address], [place] [address] May, [facility] [address] [id number] [address] [place] [address], [place] [address] May, [facility] [address] [id number] [address] [place] [address], [place] [address] May, [facility] [address] [id number] [address] [place] [address], [place] [address] 14 May, 2012 [facility] [address] [id number] [address] [place] [address], [place] [address] 14 May, 2012 [facility] [address] [id number] [address] [place] [address], [place] [address] May, [facility] [address] [id number] [address] [place] [address], [place] [address] 06 May, 2012 [facility] [address] [id number] [address] [place] [address] 15 Apr, 2012 [facility] [address] [id number] [address] [place] [address], [place] [address] 15 Apr, 2012 [facility] [address] [id number] [address] [place] [address], [place] [address] 15 Apr, 2012 [facility] [address] [id number] [address] [place] [address], [place] [address] 15 Apr, 2012 [facility] [address] [id number] [address] [place] [address], [place] [address] Apr, [facility] [address] [id number] [address] [place] [address], [place] [address] Apr, [facility] [address] [id number] [address] [place] [address], [place] [address] Apr, [facility] [address] [id number] [address] [place] [address], [place] [address] Apr, [facility] [address] [id number] [address] [place] [address], [place] [address] Jan, [facility] [address] [id number] [address] [place] [address], [place] [address] Jan, [facility] [address] [id number] [address] [place] [address], [place] [address] Dec, [facility] [address] [id number] [address] [place] [address], [place] [address] November, [facility] [address] [id number] [address] [place] [address], [place] [address] Oct, [facility] [address] [id number] [address] [place] [address], [place] [address] Oct, [facility] [address] [id number] [address] [place] [address], [place] [address] Oct, [facility] [address] [id number] [address] [place] [address], [place] [address] Oct, [facility] [address] [id number] [address] [place] [address], [place] [address] Sep, [facility] [address] [id number] [address] [place] [address], [place] [address] Sep, [facility] [address] [id number] [address] [place] [address], [place] [address] Sep, [facility] [address] [id number] [address] [place] [address], [place] [address] Jun, [facility] [address] [id number] [address] [place] [address], [place] [address] 13 Jun, 2011 [facility] [address] [id number] [address] [place] [address], [place] [address] 22 May, 2011 [facility] [address] [id number] [address] [place] [address], [place] [address] 14 Jan, 2011 [facility] [address] [id number] [address] [place] [address], [place] [address] November, [facility] [address] [id number] [address] [place] [address], [place] [address] 14 Oct, 2010 [facility] [address] [id number] [address] [place] [address], [place] [address] 16 Sep, 2010 [facility] [address] [id number] [address] [place] [address], [place] [address] 30 May, 2010 [facility] [address] [id number] [address] [place] [address], [place] [address] Jul, [facility] [address] [id number] [address] [place] [address], [place] [address] 23 Jun, 2009 [facility] [address] [id number] [address] [place] [address] 23 Jun, 2009 [facility] [address] [id number] [address] [place] [address] 15 Jun, 2009 [facility] [address] [id number] [address] [place] [address] 15 Jun, 2009 [facility] [address] [id number] [address] [place] [address], [place] [address] 17 May, 2009 [facility] [address] [id number] [address] [place] [address] 09 May, 2009 [facility] [address] [id number] [address] [place] [address] 28 Apr, 2009 [facility] [address] [id number] [address] [place] [address] Apr, [facility] [address] [facility] [id number] [address] [address] Apr, IMMUNIZATIONS No Known Immunizations SOCIAL HISTORY [...] right 06/1996 Surgical History multiple knee injections ([id number]) Surgical History left knee replacement 06/11 Hospitalization History Knee surgery- x 3 days 06/11
--- OUTSIDE RECORDS SUMMARY | 2019-12-16 20:33 | XMS REPORT ---
Author Author Patti Guzman Doctor Organization [facility] Address Unknown Phone Unavailable Care Team Providers Care Machine Pecan Picker Name Role Phone Migration, Doctor Unavailable Unavailable PROBLEMS Type Condition ICD9-CM Code APX80-NX Code Onset Dates Condition S tatus SNOMED Code Problem ADD (attention deficit disorder) F90.0 Active 650320531 Problem Drug abuse counseling and surveillance of drug abuser Z71.51 Active 690126657 Problem Insomnia G47.00 Active 863368284 Problem Joint pain M25.50 Active 99208331 Problem Edema, unspecified type R60.9 Active 914024236 Problem Episode of recurrent major d epressive disorder, unspecified depression episode severity F33.9 Active 774430818 Problem Venous insufficiency (chronic) (peripheral) I87.2 Active 65329726510671001 Problem Carpal tunnel syndrome on left G56.02 Active 579046056344525 Problem Manic bipolar I disorder in partial remission F31. 73 Active 72211818 Problem Bipolar affective disorder, currently depressed, moderate F31.32 Active 049501151 Problem Social anxiety disorder F40.10 Active 32837531 Problem Other chronic pain G89.29 Active 8 2191847 Problem Stimulant abuse F15.10 Active 4415 28628 Problem Bipolar II disorder F31.81 Active 11078883 Problem ADD (attention deficit disorder) without hyperactivity F98.8 Active 90454110 ALLERGIES No Information ENCOUNTERS Encounter Location Date Diagnosis [facility] [address] [facility] [id number] [address] [place] [address] Feb, [facility] [address] [facility] [id number] [address] [place] [address] Feb, [facility] [address] [facility] [id number] [address] [place] [address] Feb, [facility] [address] [facility] [id number] [address] [place] [address] Jan, Bipolar affective disorder, currently depressed, moderate F31.32 [place] [address] [address] 16 Jan, 2019 Bipolar affective disorder, currently depressed, moderate F31.32 ; Social anxiety disorder F40.10 and Morbid obesity E66.01 [place] [address] [address] May, Screening for lipid disorder s Z13.220 [place] [address] [address] May, Carpal tunnel syndrome on le ft G56.02 ; Social anxiety disorder F40.10 and Screening for lipid disorders Z13.220 [place] [address] [address] 11 Apr, 2018 Bipolar II disorder F31.81 ; Social anxiety disorder F40.10 ; ADD (attention deficit disorder) without hyperactivity F98.8 and BMI 45.0-49.9, adult Z68.42 [place] [address] [address] 05 Mar, 2018 [place] [address] [address] 17 Feb, 2018 BMI 45.0-49.9, adult Z68.42 ; Carpal tunnel syndrome on left G56.02 and Social anxiety disorder F40.10 [place] [address] [address] 09 Jan, 2018 Bipolar II disorder F31.81 ; ADD (attention deficit disorder) without hyperactivity F98.8 ; Social anxiety disorder F40.10 and Stimulant abuse F15.10 [place] [address] [address] Dec, Episode of recurrent major d epressive disorder, unspecified depression episode severity F33.9 ; Other chronic pain G89.29 ; Radiculopathy, lumbar region M54.16 ; Edema of lower extremity R60.0 and BMI 45.0-49.9, adult Z68.42 [place] [address] [id number] [address] [place] [address] Jun, [facility] [address] [facility] [id number] [address] [place] [address] Jan, Joint pain M25.50 [facility] [address] [id number] [address] [place] [address] Jan, Wellness examination Z00.00 ; Pain in right knee M25.561 ; Pain in left knee M25.562 ; Edema, unspecified type R60.9 and Drug abuse counseling and surveillance of drug abuser Z71.51 [facility] [address] [facility] [id number] [address] [place] [address] November, [facility] [address] [facility] [id number] [address] [place] [address] Oct, [facility] [address] [place] [id number] [address] [place] [address] Oct, ADD (attention deficit disor josselin) F90.0 ; Social anxiety disorder F40.10 and Manic bipolar I disorder in partial remission F31.73 [facility] [address] [facility] [id number] [address] [place] [address] Aug, [facility] [address] [facility] [id number] [address] [place] [address] Aug, [facility] [address] [facility] [id number] [address] [place] [address] Aug, [facility] [address] [facility] [id number] [address] [place] [address] Jul, [facility] [address] [facility] [id number] [address] [place] [address] Jul, [facility] [address] [facility] [id number] [address] [place] [address] Jul, [facility] [address] [facility] [id number] [address] [place] [address] Jun, [facility] [address] [facility] [id number] [address] [place] [address] Jun, [facility] [address] [facility] [id number] [address] [place] [address] Jun, [facility] [address] [facility] [id number] [address] [place] [address] Jun, [facility] [address] [facility] [id number] [address] [place] [address] May, Joint pain M25.50 ; ADD (att ention deficit disorder) F90.0 ; Edema R60.9 and Insomnia G47.00 [facility] [address] [id number] [address] [place] [address] May, [facility] [address] [facility] [id number] [address] [place] [address] May, [facility] [address] [facility] [id number] [address] [place] [address] May, [facility] [address] [facility] [id number] [address] [place] [address] May, Left wrist pain M25.532 ; Si nusitis J32.9 and Drug abuse counseling and surveillance of drug abuser Z71.51 [facility] [address] [facility] [id number] [address] [place] [address] Apr, [facility] [address] [facility] [id number] [address] [place] [address] Apr, [facility] [address] [facility] [id number] [address] [place] [address] Apr, [facility] [address] [facility] [id number] [address] [place] [address] Apr, [facility] [address] [facility] [id number] [address] [place] [address] Apr, [facility] [address] [facility] [id number] [address] [place] [address] Apr, [facility] [address] [id number] [address] [place] [address] Apr, [facility] [address] [id number] [address] [place] [address] Mar, Unspecified venous (peripher al) insufficiency 459.81 ; Bipolar I disorder, most recent episode (or current) manic, moderate 296.42 ; Social phobia 300.23 ; Attention deficit disorder of childhood without mention of hyperactivity 314.00 ; Pain in joint, lower leg 719.46 ; Thrombosis 453.9 and Chronic pain 338.29 [facility] [address] [id number] [address] [place] [address] Mar, [facility] [address] [id number] [address] [place] [address] Mar, [facility] [address] [id number] [address] [place] [address] Mar, [facility] [address] [id number] [address] [place] [address] Mar, [facility] [address] [id number] [address] [place] [address] Mar, [facility] [address] [id number] [address] [place] [address] Mar, [facility] [address] [facility] [id number] [address] [place] [address] Mar, Manic bipolar I disorder in partial remission 296.45 ; Social phobia 300.23 and Attention deficit disorder of childhood without mention of hyperactivity 314.00 [facility] [address] [id number] [address] [place] [address] Mar, [facility] [address] [facility] [id number] [address] [place] [address] Feb, [facility] [address] [facility] [id number] [address] [place] [address] Feb, Thrombosis 453.9 ; Unspecifi ed venous (peripheral) insufficiency 459.81 ; Bipolar I disorder, most recent episode (or current) manic, moderate 296.42 ; Social phobia 300.23 ; Attention deficit disorder of childhood without mention of hyperactivity 314.00 ; Pain in joint, lower leg 719.46 and Edema 782.3 [place] [address] [place] [id number] [address] [place] [address] Feb, [place] [address] [facility] [id number] [address] [place] [address] Feb, Social phobia 300.23 ; Atten tion deficit disorder of childhood without mention of hyperactivity 314.00 and Bipolar I disorder, most recent episode manic, in partial remission 296.45 [place] [address] [place] [id number] [address] [place] [address] Jan, [place] [address] [place] [id number] [address] [place] [address] Jan, [place] [address] [place] [id number] [address] [place] [address] Jan, Unspecified venous (peripher al) insufficiency 459.81 and Thrombophlebitis 451.9 [place] [address] [place] [id number] [address] [place] [address] Jan, [place] [address] [place] [id number] [address] [place] [address] Dec, Headache 784.0 and Back pain 724.5 [place] [address] [facility] [id number] [address] [place] [address] Dec, [place] [address] [place] [id number] [address] [place] [address] Dec, Bipolar I disorder, most rec ent episode (or current) manic, moderate 296.42 ; Attention deficit disorder of childhood without mention of hyperactivity 314.00 and Social phobia 300.23 [place] [address] [place] [id number] [address] [place] [address] November, [facility] [address] [id number] [address] [place] [address], [place] [address] November, [facility] [address] [id number] [address] [place] [address], [place] [address] Oct, [facility] [address] [id number] [address] [place] [address], [place] [address] Oct, [facility] [address] [id number] [address] [place] [address], [place] [address] Sep, [facility] [address] [id number] [address] [place] [address], [place] [address] Sep, [facility] [address] [id number] [address] [place] [address], [place] [address] Aug, [facility] [address] [id number] [address] [place] [address], [place] [address] Aug, [facility] [address] [id number] [address] [place] [address], [place] [address] Aug, [facility] [address] [id number] [address] [place] [address], [place] [address] Aug, [facility] [address] [id number] [address] [place] [address], [place] [address] Aug, [facility] [address] [id number] [address] [place] [address], [place] [address] Aug, [facility] [address] [id number] [address] [place] [address], [place] [address] Aug, [facility] [address] [id number] [address] [place] [address], [place] [address] Jul, [facility] [address] [id number] [address] [place] [address], [place] [address] Jul, [facility] [address] [id number] [address] [place] [address], [place] [address] Jun, [facility] [address] [id number] [address] [place] [address], [place] [address] Jun, [facility] [address] [id number] [address] [place] [address], [place] [address] May, [facility] [address] [id number] [address] [place] [address], [place] [address] May, [facility] [address] [id number] [address] [place] [address], [place] [address] May, [facility] [address] [id number] [address] [place] [address], [place] [address] May, [facility] [address] [id number] [address] [place] [address], [place] [address] May, [facility] [address] [id number] [address] [place] [address], [place] [address] May, [facility] [address] [id number] [address] [place] [address], [place] [address] Apr, [facility] [address] [id number] [address] [place] [address], [place] [address] Apr, [facility] [address] [id number] [address] [place] [address], [place] [address] Apr, [facility] [address] [id number] [address] [place] [address], [place] [address] Apr, [facility] [address] [id number] [address] [place] [address], [place] [address] 22 Mar, 2014 [facility] [address] [id number] [address] [place] [address], [place] [address] 22 Mar, 2014 [facility] [address] [id number] [address] [place] [address], [place] [address] 19 Mar, 2014 [facility] [address] [id number] [address] [place] [address], [place] [address] 16 Mar, 2014 [facility] [address] [id number] [address] [place] [address], [place] [address] 16 Mar, 2013 [facility] [address] [id number] [address] [place] [address], [place] [address] 15 Mar, 2013 [facility] [address] [id number] [address] [place] [address], [place] [address] 11 Mar, 2013 [facility] [address] [id number] [address] [place] [address], [place] [address] 11 Mar, 2013 [facility] [address] [id number] [address] [place] [address], [place] [address] 11 Mar, 2013 [facility] [address] [id number] [address] [place] [address], [place] [address] 11 Mar, 2013 [facility] [address] [id number] [address] [place] [address], [place] [address] 10 Mar, 2013 [facility] [address] [id number] [address] [place] [address], [place] [address] 09 Mar, 2013 [facility] [address] [id number] [address] [place] [address], [place] [address] 09 Mar, 2013 [facility] [address] [id number] [address] [place] [address], [place] [address] 02 Mar, 2013 [facility] [address] [id number] [address] [place] [address], [place] [address] 02 Mar, 2013 [facility] [address] [id number] [address] [place] [address], [place] [address] Feb, [facility] [address] [id number] [address] [place] [address], [place] [address] Feb, [facility] [address] [id number] [address] [place] [address], [place] [address] Feb, [facility] [address] [id number] [address] [place] [address], [place] [address] Feb, [facility] [address] [id number] [address] [place] [address], [place] [address] 14 Feb, 2014 [facility] [address] [id number] [address] [place] [address], [place] [address] Feb, 2013 [facility] [address] [id number] [address] [place] [address], [place] [address] Feb, 2013 [facility] [address] [id number] [address] [place] [address], [place] [address] Feb, [facility] [address] [id number] [address] [place] [address], [place] [address] Feb, 2013 [facility] [address] [id number] [address] [place] [address], [place] [address] Feb, 2013 [facility] [address] [id number] [address] [place] [address], [place] [address] Feb, [facility] [address] [id number] [address] [place] [address], [place] [address] Feb, [facility] [address] [id number] [address] [place] [address], [place] [address] Feb, [facility] [address] [id number] [address] [place] [address], [place] [address] Feb, [facility] [address] [id number] [address] [place] [address], [place] [address] Jan, [facility] [address] [id number] [address] [place] [address], [place] [address] Jan, [facility] [address] [id number] [address] [place] [address], [place] [address] Jan, 2013 [facility] [address] [id number] [address] [place] [address], [place] [address] Jan, [facility] [address] [id number] [address] [place] [address], [place] [address] Jan, [facility] [address] [id number] [address] [place] [address], [place] [address] Jan, [facility] [address] [id number] [address] [place] [address], [place] [address] Jan, 2013 [facility] [address] [id number] [facility] [place] [address] Dec, [facility] [address] [id number] [facility] [place] [address] Dec, [facility] [address] [id number] [facility] [place] [address] Dec, [facility] [address] [id number] [facility] [place] [address] Dec, [facility] [address] [id number] [facility] [place] [address] Dec, [facility] [address] [id number] [address] [place] [address], [place] [address] Dec, [facility] [address] [id number] [address] [place] [address], [place] [address] Dec, [facility] [address] [id number] [address] [place] [address], [place] [address] Dec, [facility] [address] [id number] [address] [place] [address], [place] [address] Dec, [facility] [address] [id number] [address] [place] [address], [place] [address] November, [facility] [address] [id number] [address] [place] [address], [place] [address] November, [facility] [address] [id number] [address] [place] [address], [place] [address] November, [facility] [address] [id number] [address] [place] [address], [place] [address] November, [facility] [address] [id number] [address] [place] [address], [place] [address] November, [facility] [address] [id number] [address] [place] [address], [place] [address] November, [facility] [address] [id number] [address] [place] [address], [place] [address] November, [facility] [address] [id number] [facility] [place] [address] November, [facility] [address] [id number] [address] [place] [address], [place] [address] November, [facility] [address] [id number] [address] [place] [address], [place] [address] November, [facility] [address] [id number] [address] [place] [address], [place] [address] November, [facility] [address] [id number] [address] [place] [address], [place] [address] November, [facility] [address] [id number] [address] [place] [address], [place] [address] November, [facility] [address] [id number] [address] [place] [address], [place] [address] November, [facility] [address] [id number] [address] [place] [address], [place] [address] Oct, [facility] [address] [id number] [address] [place] [address], [place] [address] Oct, [facility] [address] [id number] [address] [place] [address], [place] [address] Oct, [facility] [address] [id number] [address] [place] [address], [place] [address] Oct, [facility] [address] [id number] [address] [place] [address], [place] [address] Oct, [facility] [address] [id number] [address] [place] [address], [place] [address] Oct, [facility] [address] [id number] [address] [place] [address], [place] [address] Sep, [facility] [address] [id number] [address] [place] [address], [place] [address] Sep, [facility] [address] [id number] [address] [place] [address], [place] [address] Sep, [facility] [address] [id number] [address] [place] [address], [place] [address] Sep, [facility] [address] [id number] [address] [place] [address], [place] [address] Aug, [facility] [address] [id number] [address] [place] [address], [place] [address] Aug, [facility] [address] [id number] [address] [place] [address], [place] [address] Aug, [facility] [address] [id number] [address] [place] [address], [place] [address] Aug, [facility] [address] [id number] [address] [place] [address], [place] [address] Jul, [facility] [address] [id number] [address] [place] [address], [place] [address] Jul, [facility] [address] [id number] [address] [place] [address], [place] [address] Jul, [facility] [address] [id number] [address] [place] [address], [place] [address] Jul, [facility] [address] [id number] [address] [place] [address], [place] [address] Jul, [facility] [address] [id number] [address] [place] [address], [place] [address] Jul, [facility] [address] [id number] [address] [place] [address], [place] [address] Jul, [facility] [address] [id number] [address] [place] [address], [place] [address] Jun, [facility] [address] [id number] [address] [place] [address], [place] [address] Jun, [facility] [facility] [address] [id number] [address] [place] [address], [place] [address] Jun, [facility] [address] [id number] [address] [place] [address], [place] [address] 17 Jun, 2013 [facility] [address] [id number] [address] [place] [address], [place] [address] Jun, [facility] [address] [id number] [address] [place] [address], [place] [address] Jun, [facility] [address] [id number] [address] [place] [address], [place] [address] May, [facility] [address] [id number] [address] [place] [address], [place] [address] 07 May, 2013 [facility] [address] [id number] [address] [place] [address], [place] [address] 15 Apr, 2013 [facility] [address] [id number] [address] [place] [address], [place] [address] 15 Apr, 2013 [facility] [address] [id number] [address] [place] [id number] 10 Apr, 2013 [facility] [address] [id number] [address] [place] [address], [place] [address] 10 Apr, 2013 [facility] [address] [id number] [address] [place] [id number] 08 Apr, 2013 [facility] [address] [id number] [address] [place] [id number] 24 Mar, 2013 [facility] [address] [id number] [address] [place] [id number] 19 Mar, 2013 [facility] [address] [id number] [address] [place] [address], [place] [address] 12 Mar, 2013 [facility] [address] [id number] [address] [place] [id number] 10 Mar, 2013 [facility] [address] [id number] [address] [place] [id number] 16 Feb, 2013 [facility] [address] [id number] [address] [place] [id number] Feb, [facility] [address] [id number] [address] [place] [address], [place] [address] Jan, [facility] [address] [id number] [address] [place] [address], [place] [address] Jan, [facility] [address] [id number] [address] [place] [address], [place] [address] Jan, [facility] [address] [id number] [address] [place] [address], [place] [address] Jan, [facility] [address] [id number] [address] [place] [address], [place] [address] Dec, [facility] [address] [id number] [address] [place] [address], [place] [address] Dec, [facility] [address] [id number] [address] [place] [address], [place] [address] Dec, [facility] [address] [id number] [address] [place] [address], [place] [address] Dec, [facility] [address] [id number] [address] [place] [address], [place] [address] November, [facility] [address] [id number] [address] [place] [address], [place] [address] November, [facility] [address] [id number] [address] [place] [address], [place] [address] Oct, [facility] [address] [id number] [address] [place] [address], [place] [address] Sep, [facility] [address] [id number] [address] [place] [address], [place] [address] Sep, [facility] [address] [id number] [address] [place] [address], [place] [address] 14 Aug, 2012 [facility] [address] [id number] [address] [place] [address], [place] [address] Aug, [facility] [address] [id number] [address] [place] [address], [place] [address] Jul, [facility] [address] [id number] [address] [place] [address], [place] [address] Jul, [facility] [address] [id number] [address] [place] [address], [place] [address] Jul, [facility] [address] [id number] [address] [place] [address], [place] [address] Jun, [facility] [address] [id number] [address] [place] [address], [place] [address] Jun, [facility] [address] [id number] [address] [place] [address], [place] [address] Jun, [facility] [address] [id number] [address] [place] [address], [place] [address] Jun, [facility] [address] [id number] [address] [place] [address], [place] [address] May, [facility] [address] [id number] [address] [place] [address], [place] [address] May, [facility] [address] [id number] [address] [place] [address], [place] [address] May, [facility] [address] [id number] [address] [place] [address], [place] [address] May, [facility] [address] [id number] [address] [place] [address], [place] [address] 14 May, 2012 [facility] [address] [id number] [address] [place] [address], [place] [address] May, [facility] [address] [id number] [address] [place] [address], [place] [address] May, [facility] [address] [id number] [address] [place] [address], [place] [address] 15 Apr, 2012 [facility] [address] [id number] [address] [place] [address], [place] [address] 15 Apr, 2012 [facility] [address] [id number] [address] [place] [address], [place] [address] Apr, [facility] [address] [id number] [address] [place] [address], [place] [address] Apr, [facility] [address] [id number] [address] [place] [address], [place] [address] Apr, [facility] [address] [id number] [address] [place] [address], [place] [address] Apr, [facility] [address] [id number] [address] [place] [address], [place] [address] Apr, [facility] [address] [id number] [address] [place] [address], [place] [address] Apr, [facility] [address] [id number] [address] [place] [address], [place] [address] Jan, [facility] [address] [id number] [address] [place] [address], [place] [address] Jan, [facility] [address] [id number] [address] [place] [address], [place] [address] Dec, [facility] [address] [id number] [address] [place] [address], [place] [address] November, [facility] [address] [id number] [address] [place] [address], [place] [address] Oct, [facility] [address] [id number] [address] [place] [address] Oct, [facility] [address] [id number] [address] [place] [address], [place] [address] Oct, [facility] [address] [id number] [address] [place] [address], [place] [address] Oct, [facility] [address] [id number] [address] [place] [address], [place] [address] Sep, [facility] [address] [id number] [address] [place] [address], [place] [address] 26 Sep, 2011 [facility] [address] [id number] [address] [place] [address], [place] [address] 26 Sep, 2011 [facility] [address] [id number] [address] [place] [address], [place] [address] [address], [address] [facility] [address] [id number] [address] [place] [address], [place] [address] 13 Jun, 2011 [facility] [address] [id number] [address] [place] [address], [place] [address] 22 May, 2011 [facility] [address] [id number] [address] [place] [address], [place] [address] 14 Jan, 2011 [facility] [address] [id number] [address] [place] [address], [place] [address] [address], [address] [facility] [address] [id number] [address] [place] [address], [place] [address] [address], [address] [facility] [address] [id number] [address] [place] [address], [place] [address] 16 Sep, 2010 [facility] [address] [id number] [address] [place] [address], [place] [address] [address], [address] [facility] [address] [id number] [address] [place] [address], [place] [address] [address], [address] [facility] [address] [id number] [address] [place] [address], [place] [address] [address], [address] [facility] [address] [id number] [address] [place] [address], [place] [address] 23 Jun, 2009 [facility] [address] [id number] [address] [place] [address], [place] [address] [address], [address] [facility] [address] [id number] [address] [place] [address], [place] [address] [address], [address] [facility] [address] [id number] [address] [place] [address], [place] [address] May, [facility] [address] [facility] [id number] [address] [place] [address] May, [facility] [address] [facility] [id number] [address] [place] [address] Apr, [facility] [address] [facility] [id number] [address] [place] [address] Apr, [facility] [address] [facility] [id number] [address] [place] [address] Apr, IMMUNIZATIONS No Known Immunizations SOCIAL HISTORY [...] right 06/1996 Surgical History multiple knee injections ([id number]) Surgical History left knee replacement 06/11 Hospitalization History Knee surgery- x 3 days 06/11
--- OUTSIDE RECORDS SUMMARY | 2019-12-16 20:33 | XMS REPORT ---
Author Author Patti AGEE Organization [facility] Address [address] [place] [address] Care Team Providers Care Inside Upholsterer Name Role Phone GEOVANNY AGEE Unavailable PROBLEMS Type Condition ICD9-CM Code [id number] Code Onset Dates Condition S tatus SNOMED Code Problem ADD (attention deficit disorder) F90.0 Active 147522876 Problem Drug abuse counseling and surveillance of drug abuser Z71.51 Active 427418706 Problem Insomnia G47.00 Active 192612236 Problem Joint pain M25.50 Active 43885404 Problem Edema, unspecified type R60.9 Active 713947024 Problem Episode of recurrent major d epressive disorder, unspecified depression episode severity F33.9 Active 830169227 Problem Venous insufficiency (chronic) (peripheral) I87.2 Active [id number] Problem Carpal tunnel syndrome on left G56.02 Active 379293104465419 Problem Manic bipolar I disorder in partial remission F31. 73 Active 40636859 Problem Bipolar affective disorder, currently depressed, moderate F31.32 Active 675956330 Problem Social anxiety disorder F40.10 Active 77353673 Problem Other chronic pain G89.29 Active 8 5947049 Problem Stimulant abuse F15.10 Active 4335 03173 Problem Bipolar II disorder F31.81 Active 64155731 Problem ADD (attention deficit disorder) without hyperactivity F98.8 Active 83555985 ALLERGIES No Information ENCOUNTERS Encounter Location Date Diagnosis [facility] [address] [facility] [id number] [address] [place] [address] Feb, [facility] [address] [facility] [id number] [address] [place] [address] Jan, Bipolar affective disorder, currently depressed, moderate F31.32 ; Social anxiety disorder F40.10 and Morbid obesity E66.01 [facility] [address] [facility] [id number] [address] [place] [address] May, Screening for lipid disorder s Z13.220 [facility] [address] [id number] [address] [place] [address] May, Carpal tunnel syndrome on le ft G56.02 ; Social anxiety disorder F40.10 and Screening for lipid disorders Z13.220 [facility] [address] [facility] [id number] [address] [place] [address] 11 Apr, 2018 Bipolar II disorder F31.81 ; Social anxiety disorder F40.10 ; ADD (attention deficit disorder) without hyperactivity F98.8 and BMI 45.0-49.9, adult Z68.42 [place] [address] [facility] [id number] [address] [place] [phone] 05 Mar, 2018 [place] [address] [facility] [id number] [address] [place] [address] 17 Feb, 2018 BMI 45.0-49.9, adult Z68.42 ; Carpal tunnel syndrome on left G56.02 and Social anxiety disorder F40.10 [place] [address] [place] [id number] [address] [place] [address] 09 Jan, 2018 Bipolar II disorder F31.81 ; ADD (attention deficit disorder) without hyperactivity F98.8 ; Social anxiety disorder F40.10 and Stimulant abuse F15.10 [place] [address] [place] [id number] [address] [place] [address] Dec, Episode of recurrent major d epressive disorder, unspecified depression episode severity F33.9 ; Other chronic pain G89.29 ; Radiculopathy, lumbar region M54.16 ; Edema of lower extremity R60.0 and BMI 45.0-49.9, adult Z68.42 [place] [address] [facility] [id number] [address] [place] [address] Jun, [place] [address] [facility] [id number] [address] [place] [address] Jan, Joint pain M25.50 [place] [address] [place] [id number] [address] [place] [address] Jan, Wellness examination Z00.00 ; Pain in right knee M25.561 ; Pain in left knee M25.562 ; Edema, unspecified type R60.9 and Drug abuse counseling and surveillance of drug abuser Z71.51 [facility] [address] [id number] [address] [place] [address] November, [facility] [address] [id number] [address] [place] [address] Oct, [facility] [address] [id number] [address] [place] [address] Oct, ADD (attention deficit disor josselin) F90.0 ; Social anxiety disorder F40.10 and Manic bipolar I disorder in partial remission F31.73 [facility] [address] [facility] [id number] [address] [place] [address] Aug, [facility] [address] [id number] [address] [place] [id number] Aug, [facility] [address] [id number] [address] [place] [address] Aug, [facility] [address] [facility] [id number] [address] [place] [address] Jul, [facility] [address] [id number] [address] [place] [address] Jul, [facility] [address] [id number] [address] [place] [address] Jul, [facility] [address] [id number] [address] [place] [phone] Jun, [facility] [address] [id number] [address] [place] [address] Jun, [facility] [address] [facility] [id number] [address] [place] [address] Jun, [facility] [address] [id number] [address] [place] [address] Jun, [facility] [address] [facility] [id number] [address] [place] [address] May, Joint pain M25.50 ; ADD (att ention deficit disorder) F90.0 ; Edema R60.9 and Insomnia G47.00 [facility] [address] [place] [id number] [place] [address] May, [facility] [address] [place] [id number] [place] [address] May, [facility] [address] [place] [id number] [place] [address] May, [facility] [address] [address] May, Left wrist pain M25.532 ; Si nusitis J32.9 and Drug abuse counseling and surveillance of drug abuser Z71.51 [facility] [address] [address] Apr, [facility] [address] [address] Apr, [facility] [address] [place] [id number] [place] [address] Apr, [facility] [address] [place] [id number] [address] [place] [address] Apr, [facility] [address] [place] [id number] [place] [address] Apr, [facility] [address] [place] [id number] [place] [address] Apr, [facility] [address] [place] [id number] [place] [address] Apr, [facility] [address] [place] [id number] [address] [place] [address] Mar, Unspecified venous (peripher al) insufficiency 459.81 ; Bipolar I disorder, most recent episode (or current) manic, moderate 296.42 ; Social phobia 300.23 ; Attention deficit disorder of childhood without mention of hyperactivity 314.00 ; Pain in joint, lower leg 719.46 ; Thrombosis 453.9 and Chronic pain 338.29 [facility] [address] [facility] [id number] [address] [place] [address] Mar, [facility] [address] [facility] [id number] [address] [place] [address] Mar, [facility] [address] [facility] [id number] [address] [place] [phone] Mar, [facility] [address] [facility] [id number] [address] [place] [phone] Mar, [facility] [address] [facility] [id number] [address] [place] [address] Mar, [facility] [address] [facility] [id number] [address] [place] [phone] Mar, [facility] [address] [facility] [id number] [address] [place] [address] Mar, Manic bipolar I disorder in partial remission 296.45 ; Social phobia 300.23 and Attention deficit disorder of childhood without mention of hyperactivity 314.00 [facility] [address] [facility] [id number] [address] [place] [address] Mar, [facility] [address] [facility] [id number] [address] [place] [address] Feb, [facility] [address] [facility] [id number] [address] [place] [address] Feb, Thrombosis 453.9 ; Unspecifi ed venous (peripheral) insufficiency 459.81 ; Bipolar I disorder, most recent episode (or current) manic, moderate 296.42 ; Social phobia 300.23 ; Attention deficit disorder of childhood without mention of hyperactivity 314.00 ; Pain in joint, lower leg 719.46 and Edema 782.3 [facility] [address] [place] [id number] [address] [place] [address] Feb, [facility] [address] [facility] [id number] [address] [place] [address] Feb, Social phobia 300.23 ; Atten tion deficit disorder of childhood without mention of hyperactivity 314.00 and Bipolar I disorder, most recent episode manic, in partial remission 296.45 [facility] [address] [facility] [id number] [address] [place] [address] Jan, [facility] [address] [facility] [id number] [address] [place] [address] Jan, [facility] [address] [facility] [id number] [address] [place] [address] Jan, Unspecified venous (peripher al) insufficiency 459.81 and Thrombophlebitis 451.9 [facility] [address] [place] [id number] [address] [place] [address] Jan, [facility] [address] [facility] [id number] [address] [place] [address] Dec, Headache 784.0 and Back pain 724.5 [facility] [address] [facility] [id number] [address] [place] [address] Dec, [facility] [address] [place] [id number] [address] [place] [address] Dec, Bipolar I disorder, most rec ent episode (or current) manic, moderate 296.42 ; Attention deficit disorder of childhood without mention of hyperactivity 314.00 and Social phobia 300.23 [facility] [address] [facility] [id number] [address] [place] [address] November, [facility] [address] [facility] [id number] [address] [place] [phone] November, [facility] [address] [facility] [id number] [address] [place] [phone] Oct, [facility] [address] [id number] [address] [place] [address], [place] [address] Oct, [facility] [address] [id number] [address] [place] [address], [place] [address] Sep, [facility] [address] [id number] [address] [place] [address], [place] [address] Sep, [facility] [address] [id number] [address] [place] [address], [place] [address] Aug, 2014 [facility] [address] [id number] [address] [place] [address], [place] [address] Aug, 2014 [facility] [address] [id number] [address] [place] [address], [place] [address] Aug, 2014 [facility] [address] [id number] [address] [place] [address], [place] [address] Aug, 2014 [facility] [address] [id number] [address] [place] [address], [place] [address] Aug, [facility] [address] [id number] [address] [place] [address], [place] [address] Aug, [facility] [address] [id number] [address] [place] [address], [place] [address] Aug, [facility] [address] [id number] [address] [place] [address], [place] [address] Jul, [facility] [address] [id number] [address] [place] [address], [place] [address] Jul, [facility] [address] [id number] [address] [place] [address], [place] [address] Jun, [facility] [address] [id number] [address] [place] [address], [place] [address] Jun, [facility] [address] [id number] [address] [place] [address], [place] [address] May, [facility] [address] [id number] [address] [place] [address], [place] [address] May, [facility] [address] [id number] [address] [place] [address], [place] [address] May, [facility] [address] [id number] [address] [place] [address], [place] [address] May, [facility] [address] [id number] [address] [place] [address], [place] [address] May, [facility] [address] [id number] [address] [place] [address], [place] [address] May, [facility] [address] [id number] [address] [place] [address], [place] [address] Apr, [facility] [address] [id number] [address] [place] [address], [place] [address] Apr, [facility] [address] [id number] [address] [place] [address], [place] [address] Apr, [facility] [address] [id number] [address] [place] [address], [place] [address] Apr, [facility] [address] [id number] [address] [place] [address], [place] [address] 22 Mar, 2014 [facility] [address] [id number] [address] [place] [address], [place] [address] 22 Mar, 2014 [facility] [address] [id number] [address] [place] [address], [place] [address] 19 Mar, 2014 [facility] [address] [id number] [address] [place] [address], [place] [address] 16 Mar, 2014 [facility] [address] [id number] [address] [place] [address], [place] [address] 16 Mar, 2014 [facility] [address] [id number] [address] [place] [address], [place] [address] 15 Mar, 2014 [facility] [address] [id number] [address] [place] [address], [place] [address] 11 Mar, 2014 [facility] [address] [id number] [address] [place] [address], [place] [address] 11 Mar, 2013 [facility] [address] [id number] [facility] [address] 11 Mar, 2013 [facility] [address] [id number] [address] [place] [address], [place] [address] 11 Mar, 2013 [facility] [address] [id number] [address] [place] [address], [place] [address] 10 Mar, 2013 [facility] [address] [id number] [address] [place] [address], [place] [address] Mar, 2013 [facility] [address] [id number] [address] [place] [address], [place] [address] Mar, 2013 [facility] [address] [id number] [address] [place] [address], [place] [address] Mar, 2013 [facility] [address] [id number] [address] [place] [address], [place] [address] Mar, 2013 [facility] [address] [id number] [address] [place] [address], [place] [address] Feb, [facility] [address] [id number] [address] [place] [address], [place] [address] Feb, [facility] [address] [id number] [address] [place] [address], [place] [address] Feb, [facility] [address] [id number] [address] [place] [address], [place] [address] Feb, [facility] [address] [id number] [address] [place] [address], [place] [address] Feb, [facility] [address] [id number] [address] [place] [address], [place] [address] Feb, [facility] [address] [id number] [address] [place] [address], [place] [address] Feb, [facility] [address] [id number] [address] [place] [address], [place] [address] Feb, [facility] [address] [id number] [facility] [address] Feb, [facility] [address] [id number] [facility] [address] Feb, [facility] [address] [id number] [address] [place] [address], [place] [address] Feb, [facility] [address] [id number] [address] [place] [address], [place] [address] Feb, [facility] [address] [id number] [address] [place] [address], [place] [address] Feb, [facility] [address] [id number] [address] [place] [address], [place] [address] Feb, [facility] [address] [id number] [address] [place] [address], [place] [address] Jan, [facility] [address] [id number] [address] [place] [address], [place] [address] Jan, [facility] [address] [id number] [address] [place] [address], [place] [address] Jan, [facility] [address] [id number] [address] [place] [address], [place] [address] Jan, [facility] [address] [id number] [address] [place] [address], [place] [address] Jan, [facility] [address] [id number] [address] [place] [address], [place] [address] Jan, [facility] [address] [id number] [address] [place] [address], [place] [address] Jan, [facility] [address] [id number] [address] [place] [address], [place] [address] Dec, [facility] [address] [id number] [address] [place] [address], [place] [address] Dec, [facility] [address] [id number] [address] [place] [address], [place] [address] Dec, [facility] [address] [id number] [facility] [address] Dec, [facility] [address] [id number] [address] [place] [address], [place] [address] Dec, [facility] [address] [id number] [address] [place] [address], [place] [address] Dec, [facility] [address] [id number] [address] [place] [address], [place] [address] Dec, [facility] [address] [id number] [address] [place] [address], [place] [address] Dec, [facility] [address] [id number] [address] [place] [address], [place] [address] Dec, [facility] [address] [id number] [address] [place] [address], [place] [address] November, [facility] [address] [id number] [address] [place] [address], [place] [address] November, [facility] [address] [id number] [address] [place] [address], [place] [address] November, [facility] [address] [id number] [address] [place] [address], [place] [address] November, [facility] [address] [id number] [address] [place] [address], [place] [address] November, [facility] [address] [id number] [address] [place] [address], [place] [address] November, [facility] [address] [id number] [address] [place] [address], [place] [address] November, [facility] [address] [id number] [address] [place] [address], [place] [address] November, [facility] [address] [id number] [address] [place] [address], [place] [address] November, [facility] [address] [id number] [address] [place] [address], [place] [address] November, [facility] [address] [id number] [address] [place] [address], [place] [address] November, [facility] [address] [id number] [address] [place] [address], [place] [address] November, [facility] [address] [id number] [address] [place] [address], [place] [address] November, [facility] [address] [id number] [address] [place] [address], [place] [address] November, [facility] [address] [id number] [address] [place] [address], [place] [address] Oct, [facility] [address] [id number] [address] [place] [address], [place] [address] Oct, [facility] [address] [id number] [address] [place] [address], [place] [address] Oct, [facility] [address] [id number] [address] [place] [address], [place] [address] Oct, [facility] [address] [id number] [address] [place] [address], [place] [address] Oct, [facility] [address] [id number] [address] [place] [address], [place] [address] Oct, [facility] [address] [id number] [address] [place] [address], [place] [address] Sep, [facility] [address] [id number] [address] [place] [address], [place] [address] Sep, [facility] [address] [id number] [address] [place] [address], [place] [address] Sep, [facility] [address] [id number] [address] [place] [address], [place] [address] Sep, [facility] [address] [id number] [address] [place] [address], [place] [address] Aug, [facility] [address] [id number] [address] [place] [address], [place] [address] Aug, [facility] [address] [id number] [address] [place] [address], [place] [address] Aug, [facility] [address] [id number] [address] [place] [address], [place] [address] Aug, [facility] [address] [id number] [address] [place] [address], [place] [address] Jul, [facility] [address] [id number] [address] [place] [address], [place] [address] Jul, [facility] [address] [id number] [address] [place] [address], [place] [address] Jul, [facility] [address] [id number] [address] [place] [address], [place] [address] Jul, [facility] [address] [id number] [address] [place] [address], [place] [address] Jul, [facility] [address] [id number] [address] [place] [address], [place] [address] Jul, [facility] [address] [id number] [address] [place] [address], [place] [address] Jul, [facility] [address] [id number] [address] [place] [address], [place] [address] Jun, [facility] [address] [id number] [address] [place] [address], [place] [address] Jun, [facility] [address] [id number] [address] [place] [address], [place] [address] 17 Jun, 2013 [facility] [address] [id number] [address] [place] [address], [place] [address] 17 Jun, 2013 [facility] [address] [id number] [address] [place] [address], [place] [address] 13 Jun, 2013 [facility] [address] [id number] [address] [place] [address], [place] [address] 13 Jun, 2013 [facility] [address] [id number] [address] [place] [address], [place] [address] 07 May, 2013 [facility] [address] [id number] [address] [place] [address], [place] [address] 07 May, 2013 [facility] [address] [id number] [address] [place] [address], [place] [address] 15 Apr, 2013 [facility] [address] [id number] [address] [place] [address], [place] [address] 15 Apr, 2013 [facility] [address] [id number] [address] [place] [address], [place] [address] 10 Apr, 2013 [facility] [address] [id number] [address] [place] [address], [place] [address] 10 Apr, 2013 [facility] [address] [id number] [address] [place] [address], [place] [address] 08 Apr, 2013 [facility] [address] [id number] [address] [place] [address], [place] [address] 24 Mar, 2013 [facility] [address] [id number] [address] [place] [address], [place] [address] 19 Mar, 2013 [facility] [address] [id number] [address] [place] [address], [place] [address] 12 Mar, 2013 [facility] [address] [id number] [address] [place] [address], [place] [address] 10 Mar, 2013 [facility] [address] [id number] [address] [place] [address], [place] [address] 16 Feb, 2013 [facility] [address] [id number] [address] [place] [address], [place] [address] 06 Feb, 2013 [facility] [address] [id number] [address] [place] [address], [place] [address] 18 Jan, 2013 [facility] [address] [id number] [address] [place] [address], [place] [address] Jan, [facility] [address] [id number] [address] [place] [address], [place] [address] Jan, [facility] [address] [id number] [address] [place] [address], [place] [address] Jan, [facility] [address] [id number] [address] [place] [address], [place] [address] Dec, [facility] [address] [id number] [address] [place] [address], [place] [address] Dec, [facility] [address] [id number] [address] [place] [address], [place] [address] Dec, [facility] [address] [id number] [address] [place] [address], [place] [address] Dec, [facility] [address] [id number] [address] [place] [address], [place] [address] November, [facility] [address] [id number] [address] [place] [address], [place] [address] November, [facility] [address] [id number] [address] [place] [address], [place] [address] Oct, [facility] [address] [id number] [address] [place] [address], [place] [address] Sep, [facility] [address] [id number] [address] [place] [address], [place] [address] Sep, [facility] [address] [id number] [address] [place] [address], [place] [address] Aug, [facility] [address] [id number] [address] [place] [address], [place] [address] Aug, [facility] [address] [id number] [address] [place] [address], [place] [address] Jul, [facility] [address] [id number] [address] [place] [address], [place] [address] Jul, [facility] [address] [id number] [address] [place] [address], [place] [address] Jul, [facility] [address] [id number] [address] [place] [address], [place] [address] Jun, [facility] [address] [id number] [address] [place] [address], [place] [address] Jun, [facility] [address] [id number] [address] [place] [address], [place] [address] 15 Jun, 2012 [facility] [address] [id number] [address] [place] [address], [place] [address] 15 Jun, 2012 [facility] [address] [id number] [address] [place] [address], [place] [address] May, [facility] [address] [id number] [address] [place] [address], [place] [address] May, [facility] [address] [id number] [address] [place] [address], [place] [address] May, [facility] [address] [id number] [address] [place] [address], [place] [address] 14 May, 2012 [facility] [address] [id number] [address] [place] [address], [place] [address] 14 May, 2012 [facility] [address] [id number] [address] [place] [address], [place] [address] May, [facility] [address] [id number] [address] [place] [address], [place] [address] 06 May, 2012 [facility] [address] [id number] [address] [place] [address] 15 Apr, 2012 [facility] [address] [id number] [address] [place] [address], [place] [address] 15 Apr, 2012 [facility] [address] [id number] [address] [place] [address], [place] [address] 15 Apr, 2012 [facility] [address] [id number] [address] [place] [address], [place] [address] 15 Apr, 2012 [facility] [address] [id number] [address] [place] [address], [place] [address] Apr, [facility] [address] [id number] [address] [place] [address], [place] [address] Apr, [facility] [address] [id number] [address] [place] [address], [place] [address] Apr, [facility] [address] [id number] [address] [place] [address], [place] [address] Apr, [facility] [address] [id number] [address] [place] [address], [place] [address] Jan, [facility] [address] [id number] [address] [place] [address], [place] [address] Jan, [facility] [address] [id number] [address] [place] [address], [place] [address] Dec, [facility] [address] [id number] [address] [place] [address], [place] [address] November, [facility] [address] [id number] [address] [place] [address], [place] [address] Oct, [facility] [address] [id number] [address] [place] [address], [place] [address] Oct, [facility] [address] [id number] [address] [place] [address], [place] [address] Oct, [facility] [address] [id number] [address] [place] [address], [place] [address] Oct, [facility] [address] [id number] [address] [place] [address], [place] [address] Sep, [facility] [address] [id number] [address] [place] [address], [place] [address] Sep, [facility] [address] [id number] [address] [place] [address], [place] [address] Sep, [facility] [address] [id number] [address] [place] [address], [place] [address] Jun, [facility] [address] [id number] [address] [place] [address], [place] [address] 13 Jun, 2011 [facility] [address] [id number] [address] [place] [address], [place] [address] 22 May, 2011 [facility] [address] [id number] [address] [place] [address], [place] [address] 14 Jan, 2011 [facility] [address] [id number] [address] [place] [address], [place] [address] November, [facility] [address] [id number] [address] [place] [address], [place] [address] 14 Oct, 2010 [facility] [address] [id number] [address] [place] [address], [place] [address] 16 Sep, 2010 [facility] [address] [id number] [address] [place] [address], [place] [address] 30 May, 2010 [facility] [address] [id number] [address] [place] [address], [place] [address] Jul, [facility] [address] [id number] [address] [place] [address], [place] [address] 23 Jun, 2009 [facility] [address] [id number] [address] [place] [address] 23 Jun, 2009 [facility] [address] [id number] [address] [place] [id number] 15 Jun, 2009 [facility] [address] [id number] [address] [place] [id number] 15 Jun, 2009 [facility] [address] [id number] [address] [place] [address], [place] [address] 17 May, 2009 [facility] [address] [id number] [address] [place] [id number] 09 May, 2009 [facility] [address] [id number] [address] [place] [id number] 28 Apr, 2009 [facility] [address] [id number] [address] [place] [address] Apr, [facility] [address] [facility] [id number] [place] [address] Apr, IMMUNIZATIONS No Known Immunizations SOCIAL HISTORY [...] right 06/1996 Surgical History multiple knee injections ([id number]) Surgical History left knee replacement 06/11 Hospitalization History Knee surgery- x 3 days 06/11
--- OUTSIDE RECORDS SUMMARY | 2019-12-16 20:34 | XMS REPORT ---
Author Author Patti Guzman Doctor Organization [facility] Address Unknown Phone Unavailable Care Team Providers Care Configuration Technician Name Role Phone Migration, Doctor Unavailable Unavailable PROBLEMS Type Condition ICD9-CM Code QHT99-QQ Code Onset Dates Condition S tatus SNOMED Code Problem Drug abuse counseling and surveillance of drug abuser Z71.51 Active 391445250 Problem Joint pain M25.50 Active 95092882 Problem ADD (attention deficit disorder) F90.0 Active 292255006 Problem Manic bipolar I disorder in partial remission F31. 73 Active 60590097 Problem Edema, unspecified type R60.9 Active 228226643 Problem Episode of recurrent major d epressive disorder, unspecified depression episode severity F33.9 Active 121985223 Problem ADD (attention deficit disorder) without hyperactivity F98.8 Active 44049142 Problem Social anxiety disorder F40.10 Active 72873098 Problem Carpal tunnel syndrome on left G56.02 Active 872435988670601 Problem Insomnia G47.00 Active 639760370 Problem Venous insufficiency (chronic) (peripheral) I87.2 Active [id number] Problem Other chronic pain G89.29 Active 8 2678495 Problem Stimulant abuse F15.10 Active 4415 01961 Problem Bipolar II disorder F31.81 Active 96224216 ALLERGIES No Information ENCOUNTERS Encounter Location Date Diagnosis [facility], [place] [address] [facility] [id number] [address] [place] [id number] Dec, [facility], [place] [address] [facility] [id number] [address] [place] [address] Dec, [facility], [place] [address] [facility] [id number] [address] [place] [address] May, Screening for lipid disorder s Z13.220 [facility], [place] [address] [facility] [id number] [address] [place] [address] May, Carpal tunnel syndrome on le ft G56.02 ; Social anxiety disorder F40.10 and Screening for lipid disorders Z13.220 [place] [address] [address] 11 Apr, 2018 Bipolar II disorder F31.81 ; Social anxiety disorder F40.10 ; ADD (attention deficit disorder) without hyperactivity F98.8 and BMI 45.0-49.9, adult Z68.42 [place] [address] [id number] 05 Mar, 2018 [place] [address] [address] [place] [id number] [place] [id number] 17 Feb, 2018 BMI 45.0-49.9, adult Z68.42 ; Carpal tunnel syndrome on left G56.02 and Social anxiety disorder F40.10 [place] [address] [id number] 09 Jan, 2018 Bipolar II disorder F31.81 ; ADD (attention deficit disorder) without hyperactivity F98.8 ; Social anxiety disorder F40.10 and Stimulant abuse F15.10 [place] [address] [id number] 22 Dec, 2017 Episode of recurrent major d epressive disorder, unspecified depression episode severity F33.9 ; Other chronic pain G89.29 ; Radiculopathy, lumbar region M54.16 ; Edema of lower extremity R60.0 and BMI 45.0-49.9, adult Z68.42 [place] [address] [address] 19 Jun, 2017 [place] [address] [address] Jan, Joint pain M25.50 [place] [address] [id number] 18 Jan, 2016 Wellness examination Z00.00 ; Pain in right knee M25.561 ; Pain in left knee M25.562 ; Edema, unspecified type R60.9 and Drug abuse counseling and surveillance of drug abuser Z71.51 [place] [address] [id number] [address] [place] [address] November, [facility], [place] [address] [id number] [address] [place] [address] Oct, [facility], [place] [address] [facility] [id number] [address] [place] [address] Oct, ADD (attention deficit disor josselin) F90.0 ; Social anxiety disorder F40.10 and Manic bipolar I disorder in partial remission F31.73 [facility], [place] [address] [id number] [address] [place] [address] Aug, [facility], [place] [address] [id number] [address] [place] [id number] Aug, [facility], [place] [address] [facility] [id number] [address] [place] [address] Aug, [facility], [place] [address] [facility] [id number] [address] [place] [address] Jul, [facility], [place] [address] [facility] [id number] [address] [place] [address] Jul, [facility], [place] [address] [facility] [id number] [address] [place] [id number] Jul, [facility], [place] [address] [facility] [id number] [address] [place] [address] Jun, [facility], [place] [address] [facility] [id number] [address] [place] [phone] Jun, [facility], [place] [address] [facility] [id number] [address] [place] [address] Jun, [facility], [place] [address] [facility] [id number] [address] [place] [address] Jun, [facility], [place] [address] [facility] [id number] [address] [place] [address] May, Joint pain M25.50 ; ADD (att ention deficit disorder) F90.0 ; Edema R60.9 and Insomnia G47.00 [facility], [place] [address] [facility] [id number] [address] [place] [address] May, [facility], [place] [address] [facility] [id number] [address] [place] [address] May, [facility], [place] [address] [place] [id number] [address] [place] [address] May, [facility], [place] [address] [facility] [id number] [address] [place] [address] May, Left wrist pain M25.532 ; Si nusitis J32.9 and Drug abuse counseling and surveillance of drug abuser Z71.51 [facility], [place] [address] [place] [id number] [address] [place] [address] Apr, [facility], [place] [address] [place] [id number] [address] [place] [address] Apr, [facility], [place] [address] [place] [id number] [address] [place] [address] Apr, [facility], [place] [address] [place] [id number] [address] [place] [address] Apr, [facility], [place] [address] [place] [id number] [address] [place] [address] Apr, [facility], [place] [address] [place] [id number] [address] [place] [address] Apr, [facility], [place] [address] [place] [id number] [address] [place] [address] Apr, [facility], [place] [address] [facility] [id number] [address] [place] [address] Mar, Unspecified venous (peripher al) insufficiency 459.81 ; Bipolar I disorder, most recent episode (or current) manic, moderate 296.42 ; Social phobia 300.23 ; Attention deficit disorder of childhood without mention of hyperactivity 314.00 ; Pain in joint, lower leg 719.46 ; Thrombosis 453.9 and Chronic pain 338.29 [facility], [place] [address] [id number] [address] [place] [address] 18 Mar, 2014 [facility], [place] [address] [id number] [address] [place] [id number] 18 Mar, 2014 [facility], [place] [address] [id number] [address] [place] [id number] 18 Mar, 2014 [facility], [place] [address] [facility] [id number] [address] [place] [id number] 17 Mar, 2014 [facility], [place] [address] [id number] [address] [place] [id number] 17 Mar, 2015 [facility], [place] [address] [facility] [id number] [address] [place] [address] 11 Mar, 2015 [facility], [place] [address] [facility] [id number] [address] [place] [address] 10 Mar, 2015 Manic bipolar I disorder in partial remission 296.45 ; Social phobia 300.23 and Attention deficit disorder of childhood without mention of hyperactivity 314.00 [facility], [place] [address] [facility] [id number] [address] [place] [address] Mar, [facility], [place] [address] [facility] [id number] [address] [place] [address] Feb, [facility], [place] [address] [facility] [id number] [address] [place] [address] Feb, Thrombosis 453.9 ; Unspecifi ed venous (peripheral) insufficiency 459.81 ; Bipolar I disorder, most recent episode (or current) manic, moderate 296.42 ; Social phobia 300.23 ; Attention deficit disorder of childhood without mention of hyperactivity 314.00 ; Pain in joint, lower leg 719.46 and Edema 782.3 [facility], [place] [address] [facility] [id number] [address] [place] [address] Feb, [facility], [place] [address] [facility] [id number] [address] [place] [address] Feb, Social phobia 300.23 ; Atten tion deficit disorder of childhood without mention of hyperactivity 314.00 and Bipolar I disorder, most recent episode manic, in partial remission 296.45 [facility], [place] [address] [id number] [address] [place] [address] Jan, [facility], [place] [address] [id number] [address] [place] [id number] Jan, [facility], [place] [address] [facility] [id number] [address] [place] [address] Jan, Unspecified venous (peripher al) insufficiency 459.81 and Thrombophlebitis 451.9 [facility], [place] [address] [id number] [address] [place] [phone] Jan, [facility], [place] [address] [facility] [id number] [address] [place] [address] Dec, Headache 784.0 and Back pain 724.5 [facility], [place] [address] [facility] [id number] [address] [place] [id number] Dec, [facility], [place] [address] [facility] [id number] [address] [place] [address] Dec, Bipolar I disorder, most rec ent episode (or current) manic, moderate 296.42 ; Attention deficit disorder of childhood without mention of hyperactivity 314.00 and Social phobia 300.23 [facility], [place] [address] [facility] [id number] [address] [place] [address] November, [facility], [place] [address] [id number] [address] [place] [address] November, [facility], [place] [address] [id number] [address] [place] [address] Oct, [facility], [place] [address] [facility] [id number] [address] [place] [id number] Oct, [facility], [place] [address] [facility] [id number] [address] [place] [id number] Sep, [facility], [place] [address] [facility] [id number] [address] [place] [address] Sep, [facility] [address] [id number] [address] [place] [address], [place] [id number] Aug, 2014 [facility] [address] [id number] [address] [place] [address], [place] [id number] Aug, 2014 [facility] [address] [id number] [address] [place] [address], [place] [id number] Aug, 2014 [facility] [address] [id number] [address] [place] [address], [place] [id number] Aug, 2014 [facility] [address] [id number] [address] [place] [address], [place] [id number] Aug, 2014 [facility] [address] [id number] [address] [place] [address], [place] [id number] Aug, [facility] [address] [id number] [address] [place] [address], [place] [id number] Aug, [facility] [address] [id number] [address] [place] [address], [place] [id number] Jul, [facility] [address] [id number] [address] [place] [address], [place] [id number] Jul, [facility] [address] [id number] [address] [place] [address], [place] [id number] Jun, [facility] [address] [id number] [address] [place] [address], [place] [id number] Jun, [facility] [address] [id number] [address] [place] [address] May, [facility] [address] [id number] [address] [place] [address], [place] [id number] May, [facility] [address] [id number] [address] [place] [address], [place] [id number] May, [facility] [address] [id number] [address] [place] [address] May, [facility] [address] [id number] [address] [place] [address], [place] [id number] May, [facility] [address] [id number] [address] [place] [address], [place] [id number] May, [facility] [address] [id number] [address] [place] [address], [place] [id number] Apr, [facility] [address] [id number] [address] [place] [address], [place] [id number] Apr, [facility] [address] [id number] [address] [place] [address], [place] [id number] Apr, [facility] [address] [id number] [address] [place] [address], [place] [id number] Apr, [facility] [address] [id number] [address] [place] [address], [place] [id number] 22 Mar, 2014 [facility] [address] [id number] [address] [place] [address], [place] [id number] 22 Mar, 2013 [facility] [address] [id number] [address] [place] [address], [place] [id number] 19 Mar, 2014 [facility] [address] [id number] [address] [place] [address], [place] [id number] 16 Mar, 2013 [facility] [address] [id number] [address] [place] [address], [place] [id number] 16 Mar, 2013 [facility] [address] [id number] [address] [place] [address], [place] [id number] 15 Sep, 2013 [facility] [address] [id number] [address] [place] [address], [place] [id number] 11 Sep, 2013 [facility] [address] [id number] [address] [place] [address], [place] [id number] 11 Sep, 2013 [facility] [address] [id number] [address] [place] [address], [place] [id number] 11 Sep, 2013 [facility] [address] [id number] [address] [place] [address], [place] [id number] Mar, [facility] [address] [id number] [address] [place] [address], [place] [id number] Mar, [facility] [address] [id number] [address] [place] [address], [place] [id number] Mar, [facility] [address] [id number] [address] [place] [address], [place] [id number] Mar, [facility] [address] [id number] [address] [place] [address], [place] [id number] Mar, [facility] [address] [id number] [address] [place] [address], [place] [id number] Mar, [facility] [address] [id number] [address] [place] [address], [place] [id number] Feb, [facility] [address] [id number] [address] [place] [address], [place] [id number] Feb, [facility] [address] [id number] [address] [place] [address], [place] [id number] Feb, [facility] [address] [id number] [address] [place] [address], [place] [id number] Feb, [facility] [address] [id number] [address] [place] [address], [place] [id number] Feb, [facility] [address] [id number] [address] [place] [address], [place] [id number] Feb, [facility] [address] [id number] [address] [place] [address], [place] [id number] Feb, [facility] [address] [id number] [address] [place] [address], [place] [id number] Feb, [facility] [address] [id number] [address] [place] [address], [place] [id number] Feb, [facility] [address] [id number] [address] [place] [address], [place] [id number] Feb, [facility] [address] [id number] [facility] [place] [id number] Feb, [facility] [address] [id number] [address] [place] [address], [place] [id number] Feb, [facility] [address] [id number] [address] [place] [address], [place] [id number] Feb, [facility] [address] [id number] [address] [place] [address], [place] [id number] Feb, [facility] [address] [id number] [address] [place] [address], [place] [id number] Jan, [facility] [address] [id number] [address] [place] [address], [place] [id number] Jan, [facility] [address] [id number] [address] [place] [address], [place] [id number] Jan, [facility] [address] [id number] [address] [place] [address], [place] [id number] Jan, [facility] [address] [id number] [address] [place] [address], [place] [id number] Jan, [facility] [address] [id number] [address] [place] [address], [place] [id number] Jan, [facility] [address] [id number] [address] [place] [address], [place] [id number] Jan, [facility] [address] [id number] [address] [place] [address], [place] [id number] Dec, [facility] [address] [id number] [address] [place] [address], [place] [id number] Dec, [facility] [address] [id number] [address] [place] [address], [place] [id number] Dec, [facility] [address] [id number] [address] [place] [address], [place] [id number] Dec, [facility] [address] [id number] [address] [place] [address], [place] [id number] Dec, [facility] [address] [id number] [address] [place] [address], [place] [id number] Dec, [facility] [address] [id number] [address] [place] [address], [place] [id number] Dec, [facility] [address] [id number] [address] [place] [address], [place] [id number] Dec, [facility] [address] [id number] [address] [place] [address], [place] [id number] Dec, [facility] [address] [id number] [address] [place] [address], [place] [id number] November, [facility] [address] [id number] [address] [place] [address], [place] [id number] November, [facility] [address] [id number] [address] [place] [address], [place] [id number] November, [facility] [address] [id number] [address] [place] [address], [place] [id number] November, [facility] [address] [id number] [address] [place] [address], [place] [id number] November, [facility] [address] [id number] [address] [place] [address], [place] [id number] November, [facility] [address] [id number] [address] [place] [address], [place] [id number] November, [facility] [address] [id number] [address] [place] [address], [place] [id number] November, [facility] [address] [id number] [address] [place] [address], [place] [id number] November, [facility] [address] [id number] [address] [place] [address], [place] [id number] November, [facility] [address] [id number] [address] [place] [address], [place] [id number] November, [facility] [address] [id number] [address] [place] [address], [place] [id number] November, [facility] [address] [id number] [address] [place] [address], [place] [id number] November, [facility] [address] [id number] [address] [place] [address], [place] [id number] November, [facility] [address] [id number] [address] [place] [address], [place] [id number] Oct, [facility] [address] [id number] [address] [place] [address], [place] [id number] Oct, [facility] [address] [id number] [address] [place] [address], [place] [id number] Oct, [facility] [address] [id number] [address] [place] [address], [place] [id number] Oct, [facility] [address] [id number] [address] [place] [address], [place] [id number] Oct, [facility] [address] [id number] [address] [place] [address], [place] [id number] Oct, [facility] [address] [id number] [address] [place] [address], [place] [id number] Sep, [facility] [address] [id number] [address] [place] [address], [place] [id number] Sep, [facility] [address] [id number] [address] [place] [address], [place] [id number] Sep, [facility] [address] [id number] [address] [place] [address], [place] [id number] Sep, [facility] [address] [id number] [address] [place] [address], [place] [id number] Aug, [facility] [address] [id number] [address] [place] [address], [place] [id number] Aug, [facility] [address] [id number] [address] [place] [address], [place] [id number] Aug, [facility] [address] [id number] [address] [place] [address], [place] [id number] Aug, [facility] [address] [id number] [address] [place] [address], [place] [id number] Jul, [facility] [address] [id number] [address] [place] [address], [place] [id number] Jul, [facility] [address] [id number] [address] [place] [address], [place] [id number] Jul, [facility] [address] [id number] [address] [place] [address], [place] [id number] Jul, [facility] [address] [id number] [address] [place] [address], [place] [id number] Jul, [facility] [address] [id number] [address] [place] [address], [place] [id number] Jul, [facility] [address] [id number] [address] [place] [address], [place] [id number] Jul, [facility] [address] [id number] [address] [place] [address], [place] [id number] Jun, [facility] [address] [id number] [address] [place] [address], [place] [id number] Jun, [facility] [address] [id number] [address] [place] [address], [place] [id number] 17 Jun, 2013 [facility] [address] [id number] [address] [place] [address], [place] [id number] 17 Jun, 2013 [facility] [address] [id number] [address] [place] [address], [place] [id number] 13 Jun, 2013 [facility] [address] [id number] [address] [place] [address], [place] [id number] Jun, [facility] [address] [id number] [address] [place] [address], [place] [id number] 07 May, 2013 [facility] [address] [id number] [address] [place] [address], [place] [id number] May, [facility] [address] [id number] [address] [place] [address], [place] [id number] 15 Apr, 2013 [facility] [address] [id number] [address] [place] [address], [place] [id number] 15 Apr, 2013 [facility] [address] [id number] [address] [place] [address], [place] [id number] 10 Apr, 2013 [facility] [address] [id number] [address] [place] [address], [place] [id number] 10 Apr, 2013 [facility] [address] [id number] [address] [place] [address], [place] [id number] 08 Apr, 2013 [facility] [address] [id number] [address] [place] [address], [place] [id number] 24 Mar, 2013 [facility] [address] [id number] [address] [place] [address], [place] [id number] 19 Mar, 2013 [facility] [address] [id number] [address] [place] [address], [place] [id number] Mar, [facility] [address] [id number] [address] [place] [address], [place] [id number] Mar, [facility] [address] [id number] [address] [place] [address], [place] [id number] Feb, [facility] [address] [id number] [address] [place] [address], [place] [id number] Feb, [facility] [address] [id number] [address] [place] [address], [place] [id number] Jan, [facility] [address] [id number] [address] [place] [address], [place] [id number] Jan, [facility] [address] [id number] [address] [place] [address], [place] [id number] Jan, [facility] [address] [id number] [address] [place] [address], [place] [id number] Jan, [facility] [address] [id number] [address] [place] [address], [place] [id number] 28 Dec, 2012 [facility] [address] [id number] [address] [place] [address], [place] [id number] 15 Dec, 2012 [facility] [address] [id number] [address] [place] [address], [place] [id number] 07 Dec, 2012 [facility] [address] [id number] [address] [place] [address], [place] [id number] 06 Dec, 2012 [facility] [address] [id number] [address] [place] [address], [place] [id number] 16 Nov, 2012 [facility] [address] [id number] [address] [place] [address], [place] [id number] November, [facility] [address] [id number] [address] [place] [address], [place] [id number] 18 Oct, 2012 [facility] [address] [id number] [address] [place] [address], [place] [id number] Sep, [facility] [address] [id number] [address] [place] [address], [place] [id number] 08 Sep, 2012 [facility] [address] [id number] [address] [place] [address], [place] [id number] 14 Aug, 2012 [facility] [address] [id number] [address] [place] [address], [place] [id number] 13 Aug, 2012 [facility] [address] [id number] [address] [place] [address], [place] [id number] Jul, [facility] [address] [id number] [address] [place] [address], [place] [id number] Jul, [facility] [address] [id number] [address] [place] [address], [place] [id number] Jul, [facility] [address] [id number] [address] [place] [address], [place] [id number] Jun, [facility] [address] [id number] [address] [place] [address], [place] [id number] Jun, [facility] [address] [id number] [address] [place] [address], [place] [id number] 15 Jun, 2012 [facility] [address] [id number] [address] [place] [address], [place] [id number] 15 Jun, 2012 [facility] [address] [id number] [address] [place] [address], [place] [id number] May, [facility] [address] [id number] [address] [place] [address], [place] [id number] May, [facility] [address] [id number] [address] [place] [address], [place] [id number] May, [facility] [address] [id number] [address] [place] [address], [place] [id number] May, [facility] [address] [id number] [address] [place] [address], [place] [id number] May, [facility] [address] [id number] [address] [place] [address], [place] [id number] May, [facility] [address] [id number] [address] [place] [address], [place] [id number] May, [facility] [address] [id number] [address] [place] [id number] 15 Apr, 2012 [facility] [address] [id number] [address] [place] [address], [place] [id number] 15 Apr, 2012 [facility] [address] [id number] [address] [place] [id number] 15 Apr, 2012 [facility] [address] [id number] [address] [place] [address], [place] [id number] Apr, [facility] [address] [id number] [address] [place] [address], [place] [id number] Apr, [facility] [address] [id number] [address] [place] [address], [place] [id number] Apr, [facility] [address] [id number] [address] [place] [address] [place] [id number] Apr, [facility] [address] [id number] [address] [place] [address], [place] [id number] Apr, [facility] [address] [id number] [address] [place] [address], [place] [id number] Jan, [facility] [address] [id number] [address] [place] [address], [place] [id number] Jan, [facility] [address] [id number] [address] [place] [address], [place] [id number] Dec, [facility] [address] [id number] [address] [place] [address], [place] [id number] November, [facility] [address] [id number] [address] [place] [address], [place] [id number] Oct, [facility] [address] [id number] [address] [place] [address], [place] [id number] Oct, [facility] [address] [id number] [address] [place] [address], [place] [id number] Oct, [facility] [address] [id number] [address] [place] [address], [place] [id number] Oct, [facility] [address] [id number] [address] [place] [address], [place] [id number] Sep, [facility] [address] [id number] [address] [place] [address], [place] [id number] Sep, [facility] [address] [id number] [address] [place] [address], [place] [id number] Sep, [facility] [address] [id number] [address] [place] [address], [place] [id number] Jun, [facility] [address] [id number] [address] [place] [address], [place] [id number] Jun, [facility] [address] [id number] [address] [place] [address], [place] [id number] May, [facility] [place] [address] [id number] [address] [place] [id number] 14 Jan, 2011 [facility] [place] [address] [id number] [address] [place] [id number] 19 Nov, 2010 [facility] [place] [address] [id number] [address] [place] [id number] 14 Oct, 2010 [facility] [place] [address] [id number] [address] [place] [id number] 16 Sep, 2010 [facility] [place] [address] [id number] [address] [place] [id number] 30 May, 2010 [facility] [place] [address] [id number] [address] [place] [id number] Jul, [facility] [place] [address] [id number] [address] [place] [id number] Jun, [facility] [place] [address] [id number] [address] [place] [id number] Jun, [facility] [place] [address] [id number] [address] [place] [id number] Jun, [facility] [place] [address] [id number] [address] [place] [id number] Jun, [facility] [place] [address] [id number] [address] [place] [id number] May, [facility] [place] [address] [id number] [address] [place] [id number] May, [facility] [place] [address] [id number] [address] [place] [id number] Apr, [facility] [place] [address] [id number] [address] [place] [id number] Apr, [facility] [place] [address] [id number] [address] [place] [id number] Apr, IMMUNIZATIONS No Known Immunizations SOCIAL HISTORY Never Assessed REASON FOR VISIT EMR-[facility] PLAN OF CARE VITAL SIGNS MEDICATIONS Unknown [...] right 06/1996 Surgical History multiple knee injections ([id number]) Surgical History left knee replacement 06/11 Hospitalization History Knee surgery- x 3 days 06/11
--- OUTSIDE RECORDS SUMMARY | 2019-12-16 20:34 | XMS REPORT ---
Author Author Patti Guzman Doctor Organization [facility] Address Unknown Phone Unavailable Care Team Providers Care Vehicle Care Specialist Name Role Phone Migration, Doctor Unavailable Unavailable PROBLEMS Type Condition ICD9-CM Code MUS97-RJ Code Onset Dates Condition S tatus SNOMED Code Problem Drug abuse counseling and surveillance of drug abuser Z71.51 Active 836213425 Problem Joint pain M25.50 Active 60446890 Problem ADD (attention deficit disorder) F90.0 Active 211579979 Problem Manic bipolar I disorder in partial remission F31. 73 Active 93883569 Problem Edema, unspecified type R60.9 Active 583782619 Problem Episode of recurrent major d epressive disorder, unspecified depression episode severity F33.9 Active 435349941 Problem ADD (attention deficit disorder) without hyperactivity F98.8 Active 53886310 Problem Social anxiety disorder F40.10 Active 37540909 Problem Carpal tunnel syndrome on left G56.02 Active [id number] Problem Insomnia G47.00 Active 428251584 Problem Venous insufficiency (chronic) (peripheral) I87.2 Active 53818502140033649 Problem Other chronic pain G89.29 Active 8 8769996 Problem Stimulant abuse F15.10 Active 4415 07350 Problem Bipolar II disorder F31.81 Active 43550237 ALLERGIES No Information ENCOUNTERS Encounter Location Date Diagnosis [place] [id number] [facility] [id number] [address] [place] [address] Jan, [facility] [address] [facility] [id number] [address] [place] [address] May, Screening for lipid disorder s Z13.220 [facility] [address] [facility] [id number] [address] [place] [address] May, Carpal tunnel syndrome on le ft G56.02 ; Social anxiety disorder F40.10 and Screening for lipid disorders Z13.220 [facility] [address] [facility] [id number] [address] [place] [address] Apr, Bipolar II disorder F31.81 ; Social anxiety disorder F40.10 ; ADD (attention deficit disorder) without hyperactivity F98.8 and BMI 45.0-49.9, adult Z68.42 [place] [id number] [facility] [id number] [address] [place] [address] 05 Mar, 2018 [place] [address] [place] [id number] [address] [place] [address] 17 Feb, 2018 BMI 45.0-49.9, adult Z68.42 ; Carpal tunnel syndrome on left G56.02 and Social anxiety disorder F40.10 [place] [address] [place] [id number] [place] [phone] 09 Jan, 2018 Bipolar II disorder F31.81 ; ADD (attention deficit disorder) without hyperactivity F98.8 ; Social anxiety disorder F40.10 and Stimulant abuse F15.10 [place] [address] [place] [id number] [place] [phone] Dec, Episode of recurrent major d epressive disorder, unspecified depression episode severity F33.9 ; Other chronic pain G89.29 ; Radiculopathy, lumbar region M54.16 ; Edema of lower extremity R60.0 and BMI 45.0-49.9, adult Z68.42 [place] [address] [place] [id number] [address] [place] [address] Jun, [place] [address] [place] [id number] [address] [place] [address] Jan, Joint pain M25.50 [place] [address] [place] [id number] [address] [place] [phone] 18 Jan, 2016 Wellness examination Z00.00 ; Pain in right knee M25.561 ; Pain in left knee M25.562 ; Edema, unspecified type R60.9 and Drug abuse counseling and surveillance of drug abuser Z71.51 [place] [address] [place] [id number] [address] [place] [address] November, [place] [address] [facility] [id number] [address] [place] [address] Oct, [facility] [address] [facility] [id number] [address] [place] [phone] Oct, ADD (attention deficit disor josselin) F90.0 ; Social anxiety disorder F40.10 and Manic bipolar I disorder in partial remission F31.73 [facility] [address] [facility] [id number] [address] [place] [address] Aug, [facility] [address] [facility] [id number] [address] [place] [address] Aug, [facility] [address] [facility] [id number] [address] [place] [phone] Aug, [facility] [address] [place] [id number] [address] [place] [address] Jul, [facility] [address] [place] [id number] [address] [place] [address] Jul, [facility] [address] [place] [id number] [address] [place] [address] Jul, [facility] [address] [place] [id number] [address] [place] [address] Jun, [facility] [address] [place] [id number] [address] [place] [address] Jun, [facility] [address] [facility] [id number] [address] [place] [address] Jun, [facility] [address] [place] [id number] [address] [place] [address] Jun, [facility] [address] [place] [id number] [address] [place] [address] May, Joint pain M25.50 ; ADD (att ention deficit disorder) F90.0 ; Edema R60.9 and Insomnia G47.00 [facility] [address] [facility] [id number] [address] [place] [address] May, [facility] [address] [facility] [id number] [address] [place] [address] May, [facility] [address] [facility] [id number] [address] [place] [address] May, [facility] [address] [facility] [id number] [address] [place] [address] May, Left wrist pain M25.532 ; Si nusitis J32.9 and Drug abuse counseling and surveillance of drug abuser Z71.51 [facility] [address] [facility] [id number] [address] [place] [address] Apr, [facility] [address] [facility] [id number] [address] [place] [address] Apr, [facility] [address] [facility] [id number] [address] [place] [address] Apr, [facility] [address] [facility] [id number] [address] [place] [address] Apr, [facility] [address] [facility] [id number] [address] [place] [address] Apr, [facility] [address] [facility] [id number] [address] [place] [phone] Apr, [facility] [address] [facility] [id number] [address] [place] [phone] Apr, [facility] [address] [facility] [id number] [address] [place] [address] Mar, Unspecified venous (peripher al) insufficiency 459.81 ; Bipolar I disorder, most recent episode (or current) manic, moderate 296.42 ; Social phobia 300.23 ; Attention deficit disorder of childhood without mention of hyperactivity 314.00 ; Pain in joint, lower leg 719.46 ; Thrombosis 453.9 and Chronic pain 338.29 [facility] [address] [facility] [id number] [address] [place] [address] Mar, [facility] [address] [id number] [address] [place] [address] 18 Mar, 2015 [facility] [address] [id number] [address] [place] [phone] 18 Mar, 2015 [facility] [address] [id number] [address] [place] [address] Mar, [facility] [address] [id number] [address] [place] [address] Mar, [facility] [address] [id number] [address] [place] [phone] Mar, [facility] [address] [facility] [id number] [address] [place] [address] Mar, Manic bipolar I disorder in partial remission 296.45 ; Social phobia 300.23 and Attention deficit disorder of childhood without mention of hyperactivity 314.00 [facility] [address] [facility] [id number] [address] [place] [address] Mar, [facility] [address] [facility] [id number] [address] [place] [phone] Feb, [facility] [address] [facility] [id number] [address] [place] [address] Feb, Thrombosis 453.9 ; Unspecifi ed venous (peripheral) insufficiency 459.81 ; Bipolar I disorder, most recent episode (or current) manic, moderate 296.42 ; Social phobia 300.23 ; Attention deficit disorder of childhood without mention of hyperactivity 314.00 ; Pain in joint, lower leg 719.46 and Edema 782.3 [facility] [address] [id number] [address] [place] [address] Feb, [facility] [address] [facility] [id number] [address] [place] [address] Feb, Social phobia 300.23 ; Atten tion deficit disorder of childhood without mention of hyperactivity 314.00 and Bipolar I disorder, most recent episode manic, in partial remission 296.45 [facility] [address] [facility] [id number] [address] [place] [phone] Jan, [facility] [address] [facility] [id number] [address] [place] [phone] Jan, [facility] [address] [facility] [id number] [address] [place] [phone] Jan, Unspecified venous (peripher al) insufficiency 459.81 and Thrombophlebitis 451.9 [facility] [address] [place] [id number] [address] [place] [address] Jan, [facility] [address] [place] [id number] [address] [place] [address] Dec, Headache 784.0 and Back pain 724.5 [facility] [address] [place] [id number] [address] [place] [address] Dec, [facility] [address] [place] [id number] [place] [address] Dec, Bipolar I disorder, most rec ent episode (or current) manic, moderate 296.42 ; Attention deficit disorder of childhood without mention of hyperactivity 314.00 and Social phobia 300.23 [facility] [address] [place] [id number] [address] [place] [phone] November, [facility] [address] [place] [id number] [address] [place] [address] November, [facility] [address] [place] [id number] [address] [place] [phone] Oct, [facility] [address] [place] [id number] [address] [place] [address] Oct, [facility] [address] [place] [id number] [address] [place] [phone] Sep, [facility] [address] [place] [id number] [address] [place] [phone] Sep, [facility] [address] [place] [id number] [address] [place] [address] Aug, 2014 [facility] [address] [id number] [address] [place] [address], [place] [address] Aug, 2014 [facility] [address] [id number] [address] [place] [address], [place] [address] Aug, 2014 [facility] [address] [id number] [address] [place] [address], [place] [address] Aug, 2014 [facility] [address] [id number] [address] [place] [address], [place] [address] Aug, 2014 [facility] [address] [id number] [address] [place] [address], [place] [address] Aug, [facility] [address] [id number] [address] [place] [address], [place] [address] Aug, [facility] [address] [id number] [address] [place] [address], [place] [address] Jul, [facility] [address] [id number] [address] [place] [address], [place] [address] Jul, [facility] [address] [id number] [address] [place] [address], [place] [address] Jun, [facility] [address] [id number] [address] [place] [address], [place] [address] Jun, [facility] [address] [id number] [address] [place] [address], [place] [address] May, [facility] [address] [id number] [address] [place] [address], [place] [address] May, [facility] [address] [id number] [address] [place] [address], [place] [address] May, [facility] [address] [id number] [address] [place] [address], [place] [address] May, [facility] [address] [id number] [address] [place] [address] May, [facility] [address] [id number] [address] [place] [address], [place] [address] May, [facility] [address] [id number] [address] [place] [address], [place] [address] Apr, [facility] [address] [id number] [address] [place] [address], [place] [address] Apr, [facility] [address] [id number] [address] [place] [address], [place] [address] Apr, [facility] [address] [id number] [address] [place] [address], [place] [address] Apr, [facility] [address] [id number] [address] [place] [address], [place] [address] 22 Mar, 2014 [facility] [address] [id number] [address] [place] [address], [place] [address] 22 Mar, 2014 [facility] [address] [id number] [address] [place] [address], [place] [address] 19 Mar, 2013 [facility] [address] [id number] [address] [place] [address], [place] [address] 16 Mar, 2013 [facility] [address] [id number] [address] [place] [address], [place] [address] 16 Mar, 2013 [facility] [address] [id number] [address] [place] [address], [place] [address] 15 Mar, 2013 [facility] [address] [id number] [address] [place] [address], [place] [address] 11 Sep, 2013 [facility] [address] [id number] [address] [place] [address], [place] [address] 11 Sep, 2013 [facility] [address] [id number] [address] [place] [address], [place] [address] 11 Sep, 2013 [facility] [address] [id number] [address] [place] [address], [place] [address] 11 Sep, 2013 [facility] [address] [id number] [address] [place] [address], [place] [address] Mar, 2013 [facility] [address] [id number] [address] [place] [address], [place] [address] Mar, 2013 [facility] [address] [id number] [address] [place] [address], [place] [address] Mar, [facility] [address] [id number] [address] [place] [address], [place] [address] Mar, [facility] [address] [id number] [address] [place] [address], [place] [address] Mar, [facility] [address] [id number] [address] [place] [address], [place] [address] Feb, [facility] [address] [id number] [address] [place] [address], [place] [address] Feb, [facility] [address] [id number] [address] [place] [address], [place] [address] Feb, [facility] [address] [id number] [address] [place] [address], [place] [address] Feb, [facility] [address] [id number] [address] [place] [address], [place] [address] Feb, [facility] [address] [id number] [address] [place] [address], [place] [address] Feb, [facility] [address] [id number] [address] [place] [address], [place] [address] Feb, [facility] [address] [id number] [address] [place] [address], [place] [address] Feb, [facility] [address] [id number] [address] [place] [address], [place] [address] Feb, [facility] [address] [id number] [address] [place] [address], [place] [address] Feb, [facility] [address] [id number] [address] [place] [address], [place] [address] Feb, [facility] [address] [id number] [facility] [place] [address] Feb, [facility] [address] [id number] [address] [place] [address], [place] [address] Feb, [facility] [address] [id number] [address] [place] [address], [place] [address] Feb, [facility] [address] [id number] [address] [place] [address], [place] [address] Jan, [facility] [address] [id number] [address] [place] [address], [place] [address] Jan, [facility] [address] [id number] [address] [place] [address], [place] [address] Jan, [facility] [address] [id number] [address] [place] [address], [place] [address] Jan, [facility] [address] [id number] [address] [place] [address], [place] [address] Jan, [facility] [address] [id number] [address] [place] [address], [place] [address] Jan, [facility] [address] [id number] [address] [place] [address], [place] [address] Jan, [facility] [address] [id number] [address] [place] [address], [place] [address] Dec, [facility] [address] [id number] [address] [place] [address], [place] [address] Dec, [facility] [address] [id number] [address] [place] [address], [place] [address] Dec, [facility] [address] [id number] [address] [place] [address], [place] [address] Dec, [facility] [address] [id number] [address] [place] [address], [place] [address] Dec, [facility] [address] [id number] [address] [place] [address], [place] [address] Dec, [facility] [address] [id number] [address] [place] [address], [place] [address] Dec, [facility] [address] [id number] [address] [place] [address], [place] [address] Dec, [facility] [address] [id number] [address] [place] [address], [place] [address] Dec, [facility] [address] [id number] [address] [place] [address], [place] [address] November, [facility] [address] [id number] [address] [place] [address], [place] [address] November, [facility] [address] [id number] [address] [place] [address], [place] [address] November, [facility] [address] [id number] [address] [place] [address], [place] [address] November, [facility] [address] [id number] [address] [place] [address], [place] [address] November, [facility] [address] [id number] [address] [place] [address], [place] [address] November, [facility] [address] [id number] [address] [place] [address], [place] [address] November, [facility] [address] [id number] [address] [place] [address], [place] [address] November, [facility] [address] [id number] [address] [place] [address], [place] [address] November, [facility] [address] [id number] [address] [place] [address], [place] [address] November, [facility] [address] [id number] [address] [place] [address], [place] [address] November, [facility] [address] [id number] [address] [place] [address], [place] [address] November, [facility] [address] [id number] [address] [place] [address], [place] [address] November, [facility] [address] [id number] [address] [place] [address], [place] [address] November, [facility] [address] [id number] [address] [place] [address], [place] [address] Oct, [facility] [address] [id number] [address] [place] [address], [place] [address] Oct, [facility] [address] [id number] [address] [place] [address], [place] [address] Oct, [facility] [address] [id number] [address] [place] [address], [place] [address] Oct, [facility] [address] [id number] [address] [place] [address], [place] [address] Oct, [facility] [address] [id number] [address] [place] [address], [place] [address] Oct, [facility] [address] [id number] [address] [place] [address], [place] [address] Sep, [facility] [address] [id number] [address] [place] [address], [place] [address] Sep, [facility] [address] [id number] [address] [place] [address], [place] [address] Sep, [facility] [address] [id number] [address] [place] [address], [place] [address] Sep, [facility] [address] [id number] [address] [place] [address], [place] [address] Aug, [facility] [address] [id number] [address] [place] [address], [place] [address] Aug, [facility] [address] [id number] [address] [place] [address], [place] [address] Aug, [facility] [address] [id number] [address] [place] [address], [place] [address] Aug, [facility] [address] [id number] [address] [place] [address], [place] [address] Jul, [facility] [address] [id number] [address] [place] [address], [place] [address] Jul, [facility] [address] [id number] [address] [place] [address], [place] [address] Jul, [facility] [address] [id number] [address] [place] [address], [place] [address] Jul, [facility] [address] [id number] [address] [place] [address], [place] [address] Jul, [facility] [address] [id number] [address] [place] [place] [address], [place] [address] Jul, [facility] [address] [id number] [address] [place] [address], [place] [address] Jul, [facility] [address] [id number] [address] [place] [address], [place] [address] Jun, [facility] [address] [id number] [address] [place] [address], [place] [address] Jun, [facility] [address] [id number] [address] [place] [address], [place] [address] Jun, [facility] [address] [id number] [address] [place] [address], [place] [address] 17 Jun, 2013 [facility] [address] [id number] [address] [place] [address], [place] [address] Jun, [facility] [address] [id number] [address] [place] [address], [place] [address] Jun, [facility] [address] [id number] [address] [place] [address], [place] [address] May, [facility] [address] [id number] [address] [place] [address], [place] [address] 07 May, 2013 [facility] [address] [id number] [address] [place] [address], [place] [address] 15 Apr, 2013 [facility] [address] [id number] [address] [place] [address], [place] [address] 15 Apr, 2013 [facility] [address] [id number] [address] [place] [address], [place] [address] 10 Apr, 2013 [facility] [address] [id number] [address] [place] [address], [place] [address] 10 Apr, 2013 [facility] [address] [id number] [address] [place] [address], [place] [address] 08 Apr, 2013 [facility] [address] [id number] [address] [place] [address], [place] [address] 24 Mar, 2013 [facility] [address] [id number] [address] [place] [address], [place] [address] 19 Mar, 2013 [facility] [address] [id number] [address] [place] [address], [place] [address] 12 Mar, 2013 [facility] [address] [id number] [address] [place] [address], [place] [address] 10 Mar, 2013 [facility] [address] [id number] [address] [place] [address], [place] [address] Feb, [facility] [address] [id number] [address] [place] [address], [place] [address] Feb, [facility] [address] [id number] [address] [place] [address], [place] [address] Jan, [facility] [address] [id number] [address] [place] [address], [place] [address] Jan, [facility] [address] [id number] [address] [place] [address], [place] [address] Jan, [facility] [address] [id number] [address] [place] [address], [place] [address] Jan, [facility] [address] [id number] [address] [place] [address], [place] [address] Dec, [facility] [address] [id number] [address] [place] [address], [place] [address] 15 Dec, 2012 [facility] [address] [id number] [address] [place] [address], [place] [address] 07 Dec, 2012 [facility] [address] [id number] [address] [place] [address], [place] [address] 06 Dec, 2012 [facility] [address] [id number] [address] [place] [address], [place] [address] 16 Nov, 2012 [facility] [address] [id number] [address] [place] [address], [place] [address] November, [facility] [address] [id number] [address] [place] [address], [place] [address] Oct, [facility] [address] [id number] [address] [place] [address], [place] [address] Sep, [facility] [address] [id number] [address] [place] [address], [place] [address] Sep, [facility] [address] [id number] [address] [place] [address], [place] [address] 14 Aug, 2012 [facility] [address] [id number] [address] [place] [address], [place] [address] 13 Aug, 2012 [facility] [address] [id number] [address] [place] [address], [place] [address] Jul, [facility] [address] [id number] [address] [place] [address], [place] [address] Jul, [facility] [address] [id number] [address] [place] [address], [place] [address] Jul, [facility] [address] [id number] [address] [place] [address], [place] [address] Jun, [facility] [address] [id number] [address] [place] [address], [place] [address] Jun, [facility] [address] [id number] [address] [place] [address], [place] [address] Jun, [facility] [address] [id number] [address] [place] [address], [place] [address] 15 Jun, 2012 [facility] [address] [id number] [address] [place] [address], [place] [address] May, [facility] [address] [id number] [address] [place] [address], [place] [address] May, [facility] [address] [id number] [address] [place] [address], [place] [address] May, [facility] [address] [id number] [address] [place] [address], [place] [address] May, [facility] [address] [id number] [address] [place] [address], [place] [address] May, [facility] [address] [id number] [address] [place] [address], [place] [address] May, [facility] [address] [id number] [address] [place] [address], [place] [address] May, [facility] [address] [id number] [address] [place] [address], [place] [address] Apr, [facility] [address] [id number] [address] [place] [address] 15 Apr, 2012 [facility] [address] [id number] [address] [place] [address], [place] [address] Apr, [facility] [address] [id number] [address] [place] [address] Apr, [facility] [address] [id number] [address] [place] [address], [place] [address] Apr, [facility] [address] [id number] [address] [place] [address], [place] [address] Apr, [facility] [address] [id number] [address] [place] [address], [place] [address] Apr, [facility] [address] [id number] [address] [place] [address] [place] [address] Apr, [facility] [address] [id number] [address] [place] [address], [place] [address] Jan, [facility] [address] [id number] [address] [place] [address], [place] [address] Jan, [facility] [address] [id number] [address] [place] [address], [place] [address] Dec, [facility] [address] [id number] [address] [place] [address], [place] [address] November, [facility] [address] [id number] [address] [place] [address], [place] [address] Oct, [facility] [address] [id number] [address] [place] [address], [place] [address] Oct, [facility] [address] [id number] [address] [place] [address], [place] [address] Oct, [facility] [address] [id number] [address] [place] [address], [place] [address] Oct, [facility] [address] [id number] [address] [place] [address], [place] [address] Sep, [facility] [address] [id number] [address] [place] [address], [place] [address] Sep, [facility] [address] [id number] [address] [place] [address], [place] [address] Sep, [facility] [address] [id number] [address] [place] [address], [place] [address] Jun, [facility] [address] [id number] [address] [place] [address], [place] [address] Jun, [facility] [address] [id number] [address] [place] [address], [place] [address] May, [facility] [address] [id number] [address] [place] [address], [place] [address] 14 Jan, 2011 [facility] [address] [id number] [address] [place] [address] November, [facility] [address] [id number] [address] [place] [address] 14 Oct, 2010 [facility] [address] [id number] [address] [place] [address] 16 Sep, 2010 [facility] [address] [id number] [address] [place] [address] 30 May, 2010 [facility] [address] [id number] [address] [place] [address] Jul, [facility] [address] [id number] [address] [place] [address] Jun, [facility] [address] [id number] [address] [place] [address] Jun, [facility] [address] [id number] [address] [place] [address] Jun, [facility] [address] [id number] [address] [place] [address] Jun, [facility] [address] [id number] [address] [place] [address] May, [facility] [address] [id number] [address] [place] [address] May, [facility] [address] [id number] [address] [place] [address] Apr, [facility] [address] [id number] [address] [place] [address] Apr, [facility] [address] [id number] [address] [place] [address] Apr, IMMUNIZATIONS No Known Immunizations SOCIAL HISTORY [...] right 06/1996 Surgical History multiple knee injections ([id number]) Surgical History left knee replacement 06/11 Hospitalization History Knee surgery- x 3 days 06/11
--- OUTSIDE RECORDS SUMMARY | 2019-12-16 20:34 | XMS REPORT ---
Author Author Patti Guzman Doctor Organization [facility] Address Unknown Phone Unavailable Care Team Providers Care [employer] Supervisor Name Role Phone Migration, Doctor Unavailable Unavailable PROBLEMS Type Condition ICD9-CM Code [id number] Code Onset Dates Condition S tatus SNOMED Code Problem Drug abuse counseling and surveillance of drug abuser Z71.51 Active 065385489 Problem Joint pain M25.50 Active 11587482 Problem ADD (attention deficit disorder) F90.0 Active 636769849 Problem Manic bipolar I disorder in partial remission F31. 73 Active 87164427 Problem Edema, unspecified type R60.9 Active 380156237 Problem Episode of recurrent major d epressive disorder, unspecified depression episode severity F33.9 Active 351107679 Problem ADD (attention deficit disorder) without hyperactivity F98.8 Active 20909022 Problem Social anxiety disorder F40.10 Active 77834394 Problem Carpal tunnel syndrome on left G56.02 Active 308630925643530 Problem Insomnia G47.00 Active 911162689 Problem Venous insufficiency (chronic) (peripheral) I87.2 Active [id number] Problem Other chronic pain G89.29 Active 8 3088386 Problem Stimulant abuse F15.10 Active 4415 07929 Problem Bipolar II disorder F31.81 Active 87594789 ALLERGIES Substance Reaction Event Type Date Status Hydrocodone VIOLATION OF NARCOTIC CONTRACT Non Dr tinoco Allergy Oct, Active ENCOUNTERS Encounter Location Date Diagnosis [facility] [address] [facility] [id number] [address] [place] [phone] Jan, [facility] [address] [facility] [id number] [address] [place] [address] May, Screening for lipid disorder s Z13.220 [facility] [address] [facility] [id number] [address] [place] [address] May, Carpal tunnel syndrome on le ft G56.02 ; Social anxiety disorder F40.10 and Screening for lipid disorders Z13.220 [facility] [address] [place] [id number] [address] [place] [address] 11 Apr, 2018 Bipolar II disorder F31.81 ; Social anxiety disorder F40.10 ; ADD (attention deficit disorder) without hyperactivity F98.8 and BMI 45.0-49.9, adult Z68.42 [facility] [address] [id number] 05 Mar, 2018 [place] [address] [address] 17 Feb, 2018 BMI 45.0-49.9, adult Z68.42 ; Carpal tunnel syndrome on left G56.02 and Social anxiety disorder F40.10 [facility] [place] [address] [address] 09 Jan, 2018 Bipolar II disorder F31.81 ; ADD (attention deficit disorder) without hyperactivity F98.8 ; Social anxiety disorder F40.10 and Stimulant abuse F15.10 [facility] [address] [place] [id number] [address] [place] [address] 22 Dec, 2018 Episode of recurrent major d epressive disorder, unspecified depression episode severity F33.9 ; Other chronic pain G89.29 ; Radiculopathy, lumbar region M54.16 ; Edema of lower extremity R60.0 and BMI 45.0-49.9, adult Z68.42 [place] [address] [place] [id number] [address] [place] [address] Jun, [facility] [place] [address] [place] [id number] [address] [place] [address] Jan, Joint pain M25.[address] [address] 18 Jan, 2016 Wellness examination Z00.00 ; Pain in right knee M25.561 ; Pain in left knee M25.562 ; Edema, unspecified type R60.9 and Drug abuse counseling and surveillance of drug abuser Z71.51 [facility] [place] [address] [id number] [address] [place] [address] November, [facility] [address] [id number] [place] [address] Oct, [facility] [address] [facility] [id number] [address] [place] [address] Oct, ADD (attention deficit disor josselin) F90.0 ; Social anxiety disorder F40.10 and Manic bipolar I disorder in partial remission F31.73 [facility] [address] [id number] [address] [place] [address] Aug, [facility] [id number] [place] [address] Aug, [facility] [address] [facility] [id number] [address] [place] [phone] Aug, [facility] [address] [facility] [id number] [address] [place] [address] Jul, [facility] [address] [facility] [id number] [address] [place] [phone] Jul, [facility] [address] [facility] [id number] [address] [place] [address] Jul, [facility] [address] [facility] [id number] [address] [place] [address] Jun, [facility] [address] [facility] [id number] [address] [place] [phone] Jun, [facility] [address] [facility] [id number] [address] [place] [address] Jun, [facility] [address] [facility] [id number] [address] [place] [phone] Jun, [facility] [address] [facility] [id number] [address] [place] [address] May, Joint pain M25.50 ; ADD (att ention deficit disorder) F90.0 ; Edema R60.[address] [facility] [address] [facility] [id number] [address] [place] [address] May, [facility] [address] [facility] [id number] [address] [place] [phone] May, [facility] [address] [place] [id number] [address] [place] [address] May, [facility] [address] [facility] [id number] [address] [place] [address] May, Left wrist pain M25.532 ; Si nusitis J32.9 and Drug abuse counseling and surveillance of drug abuser Z71.51 [facility] [address] [place] [id number] [address] [place] [address] Apr, [facility] [address] [place] [id number] [address] [place] [address] Apr, [facility] [address] [place] [id number] [address] [place] [address] Apr, [facility] [address] [place] [id number] [address] [place] [phone] Apr, [facility] [address] [place] [id number] [address] [place] [address] Apr, [facility] [address] [place] [id number] [address] [place] [address] Apr, [facility] [address] [place] [id number] [address] [place] [address] Apr, [facility] [address] [place] [id number] [address] [place] [address] Mar, Unspecified venous (peripher al) insufficiency 459.81 ; Bipolar I disorder, most recent episode (or current) manic, moderate 296.42 ; Social phobia 300.23 ; Attention deficit disorder of childhood without mention of hyperactivity 314.00 ; Pain in joint, lower leg 719.46 ; Thrombosis 453.[address] [facility] [address] [id number] [address] [place] [id number] 18 Mar, 2014 [facility] [address] [id number] [address] [place] [phone] 18 Mar, 2014 [facility] [address] [id number] [address] [place] [phone] 18 Mar, 2014 [facility] [address] [facility] [id number] [address] [place] [address] 17 Mar, 2014 [facility] [address] [id number] [address] [place] [id number] 17 Mar, 2014 [facility] [address] [facility] [id number] [address] [place] [phone] 11 Mar, 2015 [facility] [address] [facility] [id number] [address] [place] [id number] 10 Mar, 2015 Manic bipolar I disorder in partial remission 296.45 ; Social phobia 300.23 and Attention deficit disorder of childhood without mention of hyperactivity 314.00 [facility] [address] [facility] [id number] [address] [place] [phone] Mar, [facility] [address] [facility] [id number] [address] [place] [phone] Feb, [facility] [address] [facility] [id number] [address] [place] [phone] Feb, Thrombosis 453.9 ; Unspecifi ed venous (peripheral) insufficiency 459.81 ; Bipolar I disorder, most recent episode (or current) manic, moderate 296.42 ; Social phobia 300.23 ; Attention deficit disorder of childhood without mention of hyperactivity 314.00 ; Pain in joint, lower leg 719.[address] [facility] [address] [facility] [id number] [address] [place] [phone] Feb, [facility] [address] [facility] [id number] [address] [place] [address] Feb, Social phobia 300.23 ; Atten tion deficit disorder of childhood without mention of hyperactivity 314.00 and Bipolar I disorder, most recent episode manic, in partial remission 296.45 [facility] [address] [id number] [address] [place] [address] Jan, [facility] [id number] [address] [place] [phone] Jan, [facility] [address] [facility] [id number] [address] [place] [phone] Jan, Unspecified venous (peripher al) insufficiency 459.81 [address] [facility] [address] [id number] [address] [place] [phone] Jan, [facility] [address] [facility] [id number] [address] [place] [phone] Dec, Headache 784.[address] [facility] [address] [facility] [id number] [address] [place] [phone] Dec, [facility] [address] [facility] [id number] [address] [place] [address] Dec, Bipolar I disorder, most rec ent episode (or current) manic, moderate 296.42 ; Attention deficit disorder of childhood without mention of hyperactivity 314.[address] [facility] [address] [facility] [id number] [address] [place] [id number] November, [facility] [address] [id number] [address] [place] [phone] November, [facility] [address] [facility] [id number] [address] [place] [phone] Oct, [facility] [address] [facility] [id number] [address] [place] [phone] Oct, [facility] [address] [facility] [id number] [address] [place] [phone] Sep, [facility] [address] [facility] [id number] [address] [place] [phone] Sep, [facility] [address] [id number] [address] [place] [address], [place] [address] Aug, 2014 [facility] [address] [id number] [address] [place] [address], [place] [address] Aug, 2014 [facility] [address] [id number] [address] [place] [address], [place] [address] Aug, 2014 [facility] [address] [id number] [address] [place] [address], [place] [address] Aug, 2014 [facility] [address] [id number] [address] [place] [address], [place] [address] Aug, 2014 [facility] [address] [id number] [address] [place] [address], [place] [address] Aug, [facility] [address] [id number] [address] [place] [address], [place] [address] Aug, [facility] [address] [id number] [address] [place] [address], [place] [address] Jul, [facility] [address] [id number] [address] [place] [address], [place] [address] Jul, [facility] [address] [id number] [address] [place] [address], [place] [address] Jun, [facility] [address] [id number] [address] [place] [address], [place] [address] Jun, [facility] [address] [id number] [address] [place] [phone] May, [facility] [address] [id number] [address] [place] [address], [place] [address] May, [facility] [address] [id number] [address] [place] [address], [place] [address] May, [facility] [address] [id number] [address] [place] [address], [place] [address] May, [facility] [address] [id number] [address] [place] [address], [place] [address] May, [facility] [address] [id number] [address] [place] [address], [place] [address] May, [facility] [address] [id number] [address] [place] [address], [place] [address] Apr, [facility] [address] [id number] [address] [place] [address], [place] [address] Apr, [facility] [address] [id number] [address] [place] [address], [place] [address] Apr, [facility] [address] [id number] [address] [place] [address], [place] [address] Apr, [facility] [address] [id number] [address] [place] [address], [place] [address] 22 Mar, 2014 [facility] [address] [id number] [address] [place] [address], [place] [address] 22 Mar, 2013 [facility] [address] [id number] [address] [place] [address], [place] [address] 19 Mar, 2014 [facility] [address] [id number] [address] [place] [address], [place] [address] 16 Mar, 2013 [facility] [address] [id number] [address] [place] [address], [place] [address] 16 Mar, 2013 [facility] [address] [id number] [address] [place] [address], [place] [address] 15 Sep, 2013 [facility] [address] [id number] [address] [place] [address], [place] [address] 11 Sep, 2013 [facility] [address] [id number] [address] [place] [address], [place] [address] 11 Sep, 2013 [facility] [address] [id number] [address] [place] [address], [place] [address] 11 Sep, 2013 [facility] [address] [id number] [address] [place] [address], [place] [address] 11 Mar, 2013 [facility] [address] [id number] [address] [place] [address], [place] [address] Mar, [facility] [address] [id number] [address] [place] [address], [place] [address] Mar, [facility] [address] [id number] [address] [place] [address], [place] [address] Mar, [facility] [address] [id number] [address] [place] [address], [place] [address] Mar, [facility] [address] [id number] [address] [place] [address], [place] [address] Mar, [facility] [address] [id number] [address] [place] [address], [place] [address] Feb, [facility] [address] [id number] [address] [place] [address], [place] [address] Feb, [facility] [address] [id number] [address] [place] [address], [place] [address] Feb, [facility] [address] [id number] [address] [place] [address], [place] [address] Feb, [facility] [address] [id number] [address] [place] [address], [place] [address] Feb, [facility] [address] [id number] [address] [place] [address], [place] [address] Feb, [facility] [address] [id number] [address] [place] [address], [place] [address] Feb, [facility] [address] [id number] [address] [place] [address], [place] [address] Feb, [facility] [address] [id number] [address] [place] [address], [place] [address] Feb, [facility] [address] [id number] [address] [place] [address], [place] [address] Feb, [facility] [address] [id number] [address] [place] [address], [place] [address] Feb, [facility] [address] [id number] [address] [place] [address], [place] [address] Feb, [facility] [address] [id number] [address] [place] [address], [place] [address] Feb, [facility] [address] [id number] [address] [place] [address], [place] [address] Feb, [facility] [address] [id number] [address] [place] [address], [place] [address] Jan, [facility] [address] [id number] [address] [place] [address], [place] [address] Jan, [facility] [address] [id number] [address] [place] [address], [place] [address] Jan, [facility] [address] [id number] [address] [place] [address], [place] [address] Jan, [facility] [address] [id number] [address] [place] [address], [place] [address] Jan, [facility] [address] [id number] [address] [place] [address], [place] [address] Jan, [facility] [address] [id number] [address] [place] [address], [place] [address] Jan, [facility] [address] [id number] [address] [place] [address], [place] [address] Dec, [facility] [address] [id number] [address] [place] [address], [place] [address] Dec, [facility] [address] [id number] [address] [place] [address], [place] [address] Dec, [facility] [address] [id number] [address] [place] [address], [place] [address] Dec, [facility] [address] [id number] [address] [place] [address], [place] [address] Dec, [facility] [address] [id number] [address] [place] [address], [place] [address] Dec, [facility] [address] [id number] [address] [place] [address], [place] [address] Dec, [facility] [address] [id number] [address] [place] [address], [place] [address] Dec, [facility] [address] [id number] [address] [place] [address], [place] [address] Dec, [facility] [address] [id number] [address] [place] [address], [place] [address] November, [facility] [address] [id number] [address] [place] [address], [place] [address] November, [facility] [address] [id number] [address] [place] [address], [place] [address] November, [facility] [address] [id number] [address] [place] [address], [place] [address] November, [facility] [address] [id number] [address] [place] [address], [place] [address] November, [facility] [address] [id number] [address] [place] [address], [place] [address] November, [facility] [address] [id number] [address] [place] [address], [place] [address] November, [facility] [address] [id number] [address] [place] [address], [place] [address] November, [facility] [address] [id number] [address] [place] [address], [place] [address] November, [facility] [address] [id number] [address] [place] [address], [place] [address] November, [facility] [address] [id number] [address] [place] [address], [place] [address] November, [facility] [address] [id number] [address] [place] [address], [place] [address] November, [facility] [address] [id number] [address] [place] [address], [place] [address] November, [facility] [address] [id number] [address] [place] [address], [place] [address] November, [facility] [address] [id number] [address] [place] [address], [place] [address] Oct, [facility] [address] [id number] [address] [place] [address], [place] [address] Oct, [facility] [address] [id number] [address] [place] [address], [place] [address] Oct, [facility] [address] [id number] [address] [place] [address], [place] [id number] Oct, [facility] [address] [id number] [address] [place] [address], [place] [address] Oct, [facility] [address] [id number] [address] [place] [address], [place] [id number] Oct, [facility] [address] [id number] [address] [place] [address], [place] [id number] Sep, [facility] [address] [id number] [address] [place] [address], [place] [address] Sep, [facility] [address] [id number] [address] [place] [address], [place] [address] Sep, [facility] [address] [id number] [address] [place] [address], [place] [address] Sep, [facility] [address] [id number] [address] [place] [address], [place] [address] Aug, [facility] [address] [id number] [address] [place] [address], [place] [address] Aug, [facility] [address] [id number] [address] [place] [address], [place] [address] Aug, [facility] [address] [id number] [address] [place] [address], [place] [address] Aug, [facility] [address] [id number] [address] [place] [address], [place] [id number] Jul, [facility] [address] [id number] [address] [place] [address], [place] [address] Jul, [facility] [address] [id number] [address] [place] [address], [place] [address] Jul, [facility] [address] [id number] [address] [place] [address], [place] [address] Jul, [facility] [address] [id number] [address] [place] [address], [place] [address] Jul, [facility] [address] [id number] [address] [place] [address], [place] [address] Jul, [facility] [address] [id number] [address] [place] [address], [place] [address] Jul, [facility] [address] [id number] [address] [place] [address], [place] [address] Jun, [facility] [address] [id number] [address] [place] [address], [place] [address] Jun, [facility] [address] [id number] [address] [place] [address], [place] [address] 17 Jun, 2013 [facility] [address] [id number] [address] [place] [address], [place] [address] 17 Jun, 2013 [facility] [address] [id number] [address] [place] [address], [place] [address] Jun, [facility] [address] [id number] [address] [place] [address], [place] [address] Jun, [facility] [address] [id number] [address] [place] [address], [place] [address] 07 May, 2013 [facility] [address] [id number] [address] [place] [address], [place] [address] May, [facility] [facility] [address] [id number] [address] [place] [address], [place] [address] 15 Apr, 2013 [facility] [address] [id number] [address] [place] [address], [place] [address] 15 Apr, 2013 [facility] [address] [id number] [address] [place] [address], [place] [address] 10 Apr, 2013 [facility] [address] [id number] [address] [place] [address], [place] [address] 10 Apr, 2013 [facility] [address] [id number] [address] [place] [address], [place] [address] 08 Apr, 2013 [facility] [address] [id number] [address] [place] [address], [place] [address] 24 Mar, 2013 [facility] [address] [id number] [address] [place] [address], [place] [address] 19 Mar, 2013 [facility] [address] [id number] [address] [place] [address], [place] [address] 12 Mar, 2013 [facility] [address] [id number] [address] [place] [address], [place] [address] Mar, [facility] [address] [id number] [address] [place] [address], [place] [address] Feb, [facility] [address] [id number] [address] [place] [address], [place] [address] Feb, [facility] [address] [id number] [address] [place] [address], [place] [address] Jan, [facility] [address] [id number] [address] [place] [address], [place] [address] Jan, [facility] [address] [id number] [address] [place] [address], [place] [address] Jan, [facility] [address] [id number] [address] [place] [address], [place] [address] Jan, [facility] [address] [id number] [address] [place] [address], [place] [address] 28 Dec, 2012 [facility] [address] [id number] [address] [place] [address], [place] [address] 15 Dec, 2012 [facility] [address] [id number] [address] [place] [address], [place] [address] 07 Dec, 2012 [facility] [address] [id number] [address] [place] [address], [place] [address] 06 Dec, 2012 [facility] [address] [id number] [address] [place] [address], [place] [address] 16 Nov, 2012 [facility] [address] [id number] [address] [place] [address], [place] [address] November, [facility] [address] [id number] [address] [place] [address], [place] [address] 18 Oct, 2012 [facility] [address] [id number] [address] [place] [address], [place] [address] Sep, [facility] [address] [id number] [address] [place] [address], [place] [address] 08 Sep, 2012 [facility] [address] [id number] [address] [place] [address], [place] [address] 14 Aug, 2012 [facility] [address] [id number] [address] [place] [address], [place] [address] 13 Aug, 2012 [facility] [address] [id number] [address] [place] [address], [place] [address] Jul, [facility] [address] [id number] [address] [place] [address], [place] [address] Jul, [facility] [address] [id number] [address] [place] [address], [place] [address] Jul, [facility] [address] [id number] [address] [place] [address], [place] [address] Jun, [facility] [address] [id number] [address] [place] [address], [place] [address] Jun, [facility] [address] [id number] [address] [place] [address], [place] [address] 15 Jun, 2012 [facility] [address] [id number] [address] [place] [address], [place] [address] Jun, [facility] [address] [id number] [address] [place] [address], [place] [address] May, [facility] [address] [id number] [address] [place] [address], [place] [address] May, [facility] [address] [id number] [address] [place] [address], [place] [address] May, [facility] [address] [id number] [address] [place] [address], [place] [address] May, [facility] [address] [id number] [address] [place] [address], [place] [address] May, [facility] [address] [id number] [address] [place] [phone] May, [facility] [address] [id number] [address] [place] [address], [place] [address] May, [facility] [address] [id number] [address] [place] [phone] Apr, [facility] [address] [id number] [address] [place] [id number] 15 Apr, 2012 [facility] [address] [id number] [address] [place] [id number] 15 Apr, 2012 [facility] [address] [id number] [address] [place] [phone] Apr, [facility] [address] [id number] [address] [place] [phone] Apr, [facility] [address] [id number] [address] [place] [phone] Apr, [facility] [address] [id number] [address] [place] [phone] Apr, [facility] [address] [id number] [address] [place] [address], [place] [address] Apr, [facility] [address] [id number] [address] [place] [address], [place] [address] Jan, [facility] [address] [id number] [address] [place] [address], [place] [address] Jan, [facility] [address] [id number] [address] [place] [address], [place] [address] Dec, [facility] [address] [id number] [address] [place] [address], [place] [address] November, [facility] [address] [id number] [address] [place] [address], [place] [address] Oct, [facility] [address] [id number] [address] [place] [address], [place] [address] Oct, [facility] [address] [id number] [address] [place] [address], [place] [address] Oct, [facility] [address] [id number] [address] [place] [address], [place] [address] Oct, [facility] [address] [id number] [address] [place] [address], [place] [address] Sep, [facility] [address] [id number] [address] [place] [address], [place] [address] Sep, [facility] [address] [id number] [address] [place] [address], [place] [address] Sep, [facility] [address] [id number] [address] [place] [address], [place] [address] Jun, [facility] [address] [id number] [address] [place] [address], [place] [address] Jun, [facility] [address] [id number] [address] [place] [address], [place] [address] May, [facility] [address] [id number] [address] [place] [phone] [address], [address] [facility] [address] [id number] [address] [place] [id number] [address], [address] [facility] [address] [id number] [address] [place] [phone] [address] Oct, [address] [facility] [address] [id number] [address] [place] [phone] 16 Sep, [address] [facility] [address] [id number] [address] [place] [phone] [address], [address] [facility] [address] [id number] [address] [place] [phone] Jul, [facility] [address] [id number] [address] [place] [phone] Jun, [facility] [address] [id number] [address] [place] [phone] Jun, [facility] [address] [id number] [address] [place] [phone] Jun, [facility] [address] [id number] [address] [place] [phone] Jun, [facility] [address] [id number] [address] [place] [phone] May, [facility] [address] [id number] [address] [place] [id number] May, [facility] [address] [id number] [address] [place] [phone] Apr, [facility] [address] [id number] [address] [place] [phone] Apr, [facility] [address] [id number] [address] [place] [id number] Apr, IMMUNIZATIONS No Known Immunizations SOCIAL HISTORY Never Assessed REASON FOR VISIT EMR-[employer] PLAN OF CARE VITAL SIGNS MEDICATIONS Medication Instructions Dosage Frequency Start Date End Date Duration S tatus Multivitamin by oral route Aug, Active Hydrochlorothiazide 50 mg 1 tablet by Oral route 1 cr e per day Jul, Active EpiPen 0.3 mg/0.3 mL (1:1,000) inject 0. 3 milliliter (0.3 mg) by intramuscular route once as needed for anaphylaxis May, Active Loxapine Succinate 10 mg 1 Capsule by Oral route 2 cr es per day for mood Sep, Active Vitamin D3 by oral route Aug, Ac tive Neurontin 400 mg 1 Capsule by Oral route 4 times per d ay PRN back pain Feb, Active Vyvanse 30 mg 1 capsule by Oral route 1 time per day q AM, for ADHD Aug, Active phentermine 37.5 mg 1 Tablet by Oral route 2 times per day Aug, Active Flexeril 10 mg 1 tablet by Oral route 3 times per day PRN Mar, Active trazodone 50 mg take 0.5-1 tablet by Oral route 1 time per day qHS for sleep Aug, Active Vitamin D2 50,000 unit take 1 capsule (5 0,000 unit) by oral route once weekly for 12 weeks November, Active Amoxicillin 500 mg 1 capsule by Oral route 3 times per day for 10 days November, Active Augmentin 875-125 mg 1 tablet by Oral route 2 times pe r day for 7 day(s) November, Active Vitamin D3 4,000 unit 1 capsule by Oral route 1 time per day Jun, Active tramadol 50 mg take 1 tablet by Ora l route 4 times per day as needed PRN pain Apr, Active Zithromax Z-Norman 250 mg 2 tablet by Oral route 1 time per day for 1 days then take 1 tab daily on days 2-5 Jul, Active RESULTS No Results PROCEDURES No Known procedures [...] right 06/1996 Surgical History multiple knee injections ([id number]) Surgical History left knee replacement 06/11 Hospitalization History Knee surgery- x 3 days 06/11
--- OUTSIDE RECORDS SUMMARY | 2019-12-16 20:35 | XMS REPORT ---
Author Author Patti Guzman Doctor Organization [facility] Address Unknown Phone Unavailable Care Team Providers Care Licensed Practical Nurse Clinic Nurse Name Role Phone Migration, Doctor Unavailable Unavailable PROBLEMS Type Condition ICD9-CM Code DMT48-EH Code Onset Dates Condition S tatus SNOMED Code Problem Drug abuse counseling and surveillance of drug abuser Z71.51 Active 028156145 Problem Joint pain M25.50 Active 78743556 Problem ADD (attention deficit disorder) F90.0 Active 056022648 Problem Manic bipolar I disorder in partial remission F31. 73 Active 76515844 Problem Edema, unspecified type R60.9 Active 820888869 Problem Episode of recurrent major d epressive disorder, unspecified depression episode severity F33.9 Active 118497967 Problem ADD (attention deficit disorder) without hyperactivity F98.8 Active 01204839 Problem Social anxiety disorder F40.10 Active 43856733 Problem Carpal tunnel syndrome on left G56.02 Active 202656813232400 Problem Insomnia G47.00 Active 914927670 Problem Venous insufficiency (chronic) (peripheral) I87.2 Active 14886384936640602 Problem Other chronic pain G89.29 Active 8 9283841 Problem Stimulant abuse F15.10 Active 4415 88646 Problem Bipolar II disorder F31.81 Active 43512810 ALLERGIES No Information ENCOUNTERS Encounter Location Date Diagnosis [facility] [address] [facility] [id number] [address] [place] [address] Dec, [facility] [address] [facility] [id number] [address] [place] [address] November, [facility] [address] [facility] [id number] [address] [place] [address] May, Screening for lipid disorder s Z13.220 [facility] [address] [facility] [id number] [address] [place] [address] May, Carpal tunnel syndrome on le ft G56.02 ; Social anxiety disorder F40.10 and Screening for lipid disorders Z13.220 [place] [address] [id number] 11 Apr, 2018 Bipolar II disorder F31.81 ; Social anxiety disorder F40.10 ; ADD (attention deficit disorder) without hyperactivity F98.8 and BMI 45.0-49.9, adult Z68.42 [place] [address] [address] 05 Mar, 2018 [place] [address] [place] [id number] [place] [address] 17 Feb, 2018 BMI 45.0-49.9, adult Z68.42 ; Carpal tunnel syndrome on left G56.02 and Social anxiety disorder F40.10 [place] [address] [id number] 09 Jan, 2018 Bipolar II disorder F31.81 ; ADD (attention deficit disorder) without hyperactivity F98.8 ; Social anxiety disorder F40.10 and Stimulant abuse F15.10 [place] [address] [address] 22 Dec, 2017 Episode of recurrent major d epressive disorder, unspecified depression episode severity F33.9 ; Other chronic pain G89.29 ; Radiculopathy, lumbar region M54.16 ; Edema of lower extremity R60.0 and BMI 45.0-49.9, adult Z68.42 [place] [address] [id number] 19 Jun, 2017 [place] [address] [address] Jan, Joint pain M25.50 [place] [address] [id number] 18 Jan, 2016 Wellness examination Z00.00 ; Pain in right knee M25.561 ; Pain in left knee M25.562 ; Edema, unspecified type R60.9 and Drug abuse counseling and surveillance of drug abuser Z71.51 [place] [address] [id number] [address] [place] [address] November, [facility] [address] [id number] [address] [place] [address] Oct, [facility] [address] [facility] [id number] [address] [place] [address] Oct, ADD (attention deficit disor josselin) F90.0 ; Social anxiety disorder F40.10 and Manic bipolar I disorder in partial remission F31.73 [facility] [address] [id number] [address] [place] [address] Aug, [facility] [address] [id number] [address] [place] [address] Aug, [facility] [address] [facility] [id number] [address] [place] [address] Aug, [facility] [address] [facility] [id number] [address] [place] [address] Jul, [facility] [address] [facility] [id number] [address] [place] [address] Jul, [facility] [address] [facility] [id number] [address] [place] [address] Jul, [facility] [address] [facility] [id number] [address] [place] [address] Jun, [facility] [address] [facility] [id number] [address] [place] [address] Jun, [facility] [address] [facility] [id number] [address] [place] [address] Jun, [facility] [address] [facility] [id number] [address] [place] [address] Jun, [facility] [address] [facility] [id number] [address] [place] [address] May, Joint pain M25.50 ; ADD (att ention deficit disorder) F90.0 ; Edema R60.9 and Insomnia G47.00 [facility] [address] [facility] [id number] [address] [place] [address] May, [facility] [address] [facility] [id number] [address] [place] [address] May, [facility] [address] [place] [id number] [address] [place] [address] May, [facility] [address] [facility] [id number] [address] [place] [address] May, Left wrist pain M25.532 ; Si nusitis J32.9 and Drug abuse counseling and surveillance of drug abuser Z71.51 [facility] [address] [place] [id number] [address] [place] [address] Apr, [facility] [address] [place] [id number] [address] [place] [address] Apr, [facility] [address] [place] [id number] [address] [place] [address] Apr, [facility] [address] [place] [id number] [address] [place] [address] Apr, [facility] [address] [place] [id number] [address] [place] [address] Apr, [facility] [address] [place] [id number] [address] [place] [address] Apr, [facility] [address] [place] [id number] [address] [place] [address] Apr, [facility] [address] [facility] [id number] [address] [place] [address] Mar, Unspecified venous (peripher al) insufficiency 459.81 ; Bipolar I disorder, most recent episode (or current) manic, moderate 296.42 ; Social phobia 300.23 ; Attention deficit disorder of childhood without mention of hyperactivity 314.00 ; Pain in joint, lower leg 719.46 ; Thrombosis 453.9 and Chronic pain 338.29 [facility] [address] [id number] [address] [place] [id number] 18 Mar, 2014 [facility] [address] [id number] [address] [place] [id number] 18 Mar, 2014 [facility] [address] [id number] [address] [place] [address] 18 Mar, 2014 [facility] [address] [facility] [id number] [address] [place] [address] 17 Mar, 2014 [facility] [address] [id number] [address] [place] [id number] 17 Mar, 2015 [facility] [address] [facility] [id number] [address] [place] [address] 11 Mar, 2015 [facility] [address] [facility] [id number] [address] [place] [id number] 10 Mar, 2015 Manic bipolar I disorder in partial remission 296.45 ; Social phobia 300.23 and Attention deficit disorder of childhood without mention of hyperactivity 314.00 [facility] [address] [facility] [id number] [address] [place] [address] Mar, [facility] [address] [facility] [id number] [address] [place] [address] Feb, [facility] [address] [facility] [id number] [address] [place] [address] Feb, Thrombosis 453.9 ; Unspecifi ed venous (peripheral) insufficiency 459.81 ; Bipolar I disorder, most recent episode (or current) manic, moderate 296.42 ; Social phobia 300.23 ; Attention deficit disorder of childhood without mention of hyperactivity 314.00 ; Pain in joint, lower leg 719.46 and Edema 782.3 [facility] [address] [facility] [id number] [address] [place] [address] Feb, [facility] [address] [facility] [id number] [address] [place] [address] Feb, Social phobia 300.23 ; Atten tion deficit disorder of childhood without mention of hyperactivity 314.00 and Bipolar I disorder, most recent episode manic, in partial remission 296.45 [facility] [address] [id number] [address] [place] [address] Jan, [facility] [address] [id number] [address] [place] [address] Jan, [facility] [address] [facility] [id number] [address] [place] [id number] Jan, Unspecified venous (peripher al) insufficiency 459.81 and Thrombophlebitis 451.9 [facility] [address] [id number] [address] [place] [phone] Jan, [facility] [address] [facility] [id number] [address] [place] [address] Dec, Headache 784.0 and Back pain 724.5 [facility] [address] [facility] [id number] [address] [place] [address] Dec, [facility] [address] [facility] [id number] [address] [place] [address] Dec, Bipolar I disorder, most rec ent episode (or current) manic, moderate 296.42 ; Attention deficit disorder of childhood without mention of hyperactivity 314.00 and Social phobia 300.23 [facility] [address] [facility] [id number] [address] [place] [address] November, [facility] [address] [id number] [address] [place] [phone] November, [facility] [address] [id number] [address] [place] [phone] Oct, [facility] [address] [facility] [id number] [address] [place] [phone] Oct, [facility] [address] [facility] [id number] [address] [place] [id number] Sep, [facility] [address] [facility] [id number] [address] [place] [id number] Sep, [facility] [address] [id number] [address] [place] [address], [place] [address] Aug, 2014 [facility] [address] [id number] [address] [place] [address], [place] [address] Aug, 2014 [facility] [address] [id number] [address] [place] [address], [place] [address] Aug, 2014 [facility] [address] [id number] [address] [place] [address], [place] [address] Aug, 2014 [facility] [address] [id number] [address] [place] [address], [place] [address] Aug, 2014 [facility] [address] [id number] [address] [place] [address], [place] [address] Aug, [facility] [address] [id number] [address] [place] [address], [place] [address] Aug, [facility] [address] [id number] [address] [place] [address], [place] [address] Jul, [facility] [address] [id number] [address] [place] [address], [place] [address] Jul, [facility] [address] [id number] [address] [place] [address], [place] [address] Jun, [facility] [address] [id number] [address] [place] [address], [place] [address] Jun, [facility] [address] [id number] [address] [place] [phone] May, [facility] [address] [id number] [address] [place] [address], [place] [address] May, [facility] [address] [id number] [address] [place] [address], [place] [address] May, [facility] [address] [id number] [address] [place] [phone] May, [facility] [address] [id number] [address] [place] [address], [place] [address] May, [facility] [address] [id number] [address] [place] [address], [place] [address] May, [facility] [address] [id number] [address] [place] [address], [place] [address] Apr, [facility] [address] [id number] [address] [place] [address], [place] [address] Apr, [facility] [address] [id number] [address] [place] [address], [place] [address] Apr, [facility] [address] [id number] [address] [place] [address], [place] [address] Apr, [facility] [address] [id number] [address] [place] [address], [place] [address] 22 Mar, 2014 [facility] [address] [id number] [address] [place] [address], [place] [address] 22 Mar, 2013 [facility] [address] [id number] [address] [place] [address], [place] [address] 19 Mar, 2014 [facility] [address] [id number] [address] [place] [address], [place] [address] 16 Mar, 2013 [facility] [address] [id number] [address] [place] [address], [place] [address] 16 Mar, 2013 [facility] [address] [id number] [address] [place] [address], [place] [address] 15 Sep, 2013 [facility] [address] [id number] [address] [place] [address], [place] [address] 11 Sep, 2013 [facility] [address] [id number] [address] [place] [address], [place] [address] 11 Sep, 2013 [facility] [address] [id number] [address] [place] [address], [place] [address] 11 Sep, 2013 [facility] [address] [id number] [address] [place] [address], [place] [address] Mar, [facility] [address] [id number] [address] [place] [address], [place] [address] Mar, [facility] [address] [id number] [address] [place] [address], [place] [address] Mar, [facility] [address] [id number] [address] [place] [address], [place] [address] Mar, [facility] [address] [id number] [address] [place] [address], [place] [address] Mar, [facility] [address] [id number] [address] [place] [address], [place] [address] Mar, [facility] [address] [id number] [address] [place] [address], [place] [address] Feb, [facility] [address] [id number] [address] [place] [address], [place] [address] Feb, [facility] [address] [id number] [address] [place] [address], [place] [address] Feb, [facility] [address] [id number] [address] [place] [address], [place] [address] Feb, [facility] [address] [id number] [address] [place] [address], [place] [address] Feb, [facility] [address] [id number] [address] [place] [address], [place] [address] Feb, [facility] [address] [id number] [address] [place] [address], [place] [address] Feb, [facility] [address] [id number] [address] [place] [address], [place] [address] Feb, [facility] [address] [id number] [address] [place] [address], [place] [address] Feb, [facility] [address] [id number] [address] [place] [address], [place] [address] Feb, [facility] [address] [id number] [facility] [place] [address] Feb, [facility] [address] [id number] [address] [place] [address], [place] [address] Feb, [facility] [address] [id number] [address] [place] [address], [place] [address] Feb, [facility] [address] [id number] [address] [place] [address], [place] [address] Feb, [facility] [address] [id number] [address] [place] [address], [place] [address] Jan, [facility] [address] [id number] [address] [place] [address], [place] [address] Jan, [facility] [address] [id number] [address] [place] [address], [place] [address] Jan, [facility] [address] [id number] [address] [place] [address], [place] [address] Jan, [facility] [address] [id number] [address] [place] [address], [place] [address] Jan, [facility] [address] [id number] [address] [place] [address], [place] [address] Jan, [facility] [address] [id number] [address] [place] [address], [place] [address] Jan, [facility] [address] [id number] [address] [place] [address], [place] [address] Dec, [facility] [address] [id number] [address] [place] [address], [place] [address] Dec, [facility] [address] [id number] [address] [place] [address], [place] [address] Dec, [facility] [address] [id number] [address] [place] [address], [place] [address] Dec, [facility] [address] [id number] [address] [place] [address], [place] [address] Dec, [facility] [address] [id number] [address] [place] [address], [place] [address] Dec, [facility] [address] [id number] [address] [place] [address], [place] [address] Dec, [facility] [address] [id number] [address] [place] [address], [place] [address] Dec, [facility] [address] [id number] [address] [place] [address], [place] [address] Dec, [facility] [address] [id number] [address] [place] [address], [place] [address] November, [facility] [address] [id number] [address] [place] [address], [place] [address] November, [facility] [address] [id number] [address] [place] [address], [place] [address] November, [facility] [address] [id number] [address] [place] [address], [place] [address] November, [facility] [address] [id number] [address] [place] [address], [place] [address] November, [facility] [address] [id number] [address] [place] [address], [place] [address] November, [facility] [address] [id number] [address] [place] [address], [place] [address] November, [facility] [address] [id number] [address] [place] [address], [place] [address] November, [facility] [address] [id number] [address] [place] [address], [place] [address] November, [facility] [address] [id number] [address] [place] [address], [place] [address] November, [facility] [address] [id number] [address] [place] [address], [place] [address] November, [facility] [address] [id number] [address] [place] [address], [place] [address] November, [facility] [address] [id number] [address] [place] [address], [place] [address] November, [facility] [address] [id number] [address] [place] [address], [place] [address] November, [facility] [address] [id number] [address] [place] [address], [place] [address] Oct, [facility] [address] [id number] [address] [place] [address], [place] [address] Oct, [facility] [address] [id number] [address] [place] [address], [place] [address] Oct, [facility] [address] [id number] [address] [place] [address], [place] [address] Oct, [facility] [address] [id number] [address] [place] [address], [place] [address] Oct, [facility] [address] [id number] [address] [place] [address], [place] [address] Oct, [facility] [address] [id number] [address] [place] [address], [place] [address] Sep, [facility] [address] [id number] [address] [place] [address], [place] [address] Sep, [facility] [address] [id number] [address] [place] [address], [place] [address] Sep, [facility] [address] [id number] [address] [place] [address], [place] [address] Sep, [facility] [address] [id number] [address] [place] [address], [place] [address] Aug, [facility] [address] [id number] [address] [place] [address], [place] [address] Aug, [facility] [address] [id number] [address] [place] [address], [place] [address] Aug, [facility] [address] [id number] [address] [place] [address], [place] [address] Aug, [facility] [address] [id number] [address] [place] [address], [place] [address] Jul, [facility] [address] [id number] [address] [place] [address], [place] [address] Jul, [facility] [address] [id number] [address] [place] [address], [place] [address] Jul, [facility] [address] [id number] [address] [place] [address], [place] [address] Jul, [facility] [address] [id number] [address] [place] [address], [place] [address] Jul, [facility] [address] [id number] [address] [place] [address], [place] [address] Jul, [facility] [address] [id number] [address] [place] [address], [place] [address] Jul, [facility] [address] [id number] [address] [place] [address], [place] [address] Jun, [facility] [address] [id number] [address] [place] [address], [place] [address] Jun, [facility] [address] [id number] [address] [place] [address], [place] [address] 17 Jun, 2013 [facility] [address] [id number] [address] [place] [address], [place] [address] 17 Jun, 2013 [facility] [address] [id number] [address] [place] [address], [place] [address] 13 Jun, 2013 [facility] [address] [id number] [address] [place] [address], [place] [address] Jun, [facility] [address] [id number] [address] [place] [address], [place] [address] 07 May, 2013 [facility] [address] [id number] [address] [place] [address], [place] [address] May, [facility] [facility] [address] [id number] [address] [place] [address], [place] [address] 15 Apr, 2013 [facility] [address] [id number] [address] [place] [address], [place] [address] 15 Apr, 2013 [facility] [address] [id number] [address] [place] [address], [place] [address] 10 Apr, 2013 [facility] [address] [id number] [address] [place] [address], [place] [address] 10 Apr, 2013 [facility] [address] [id number] [address] [place] [address], [place] [address] 08 Apr, 2013 [facility] [address] [id number] [address] [place] [address], [place] [address] 24 Mar, 2013 [facility] [address] [id number] [address] [place] [address], [place] [address] 19 Mar, 2013 [facility] [address] [id number] [address] [place] [address], [place] [address] Mar, [facility] [address] [id number] [address] [place] [address], [place] [address] Mar, [facility] [address] [id number] [address] [place] [address], [place] [address] Feb, [facility] [address] [id number] [address] [place] [address], [place] [address] Feb, [facility] [address] [id number] [address] [place] [address], [place] [address] Jan, [facility] [address] [id number] [address] [place] [address], [place] [address] Jan, [facility] [address] [id number] [address] [place] [address], [place] [address] Jan, [facility] [address] [id number] [address] [place] [address], [place] [address] Jan, [facility] [address] [id number] [address] [place] [address], [place] [address] 28 Dec, 2012 [facility] [address] [id number] [address] [place] [address], [place] [address] 15 Dec, 2012 [facility] [address] [id number] [address] [place] [address], [place] [address] 07 Dec, 2012 [facility] [address] [id number] [address] [place] [address], [place] [address] 06 Dec, 2012 [facility] [address] [id number] [address] [place] [address], [place] [address] 16 Nov, 2012 [facility] [address] [id number] [address] [place] [address], [place] [address] November, [facility] [address] [id number] [address] [place] [address], [place] [address] 18 Oct, 2012 [facility] [address] [id number] [address] [place] [address], [place] [address] Sep, [facility] [address] [id number] [address] [place] [address], [place] [address] 08 Sep, 2012 [facility] [address] [id number] [address] [place] [address], [place] [address] 14 Aug, 2012 [facility] [address] [id number] [address] [place] [address], [place] [address] 13 Aug, 2012 [facility] [address] [id number] [address] [place] [address], [place] [address] Jul, [facility] [address] [id number] [address] [place] [address], [place] [address] Jul, [facility] [address] [id number] [address] [place] [address], [place] [address] Jul, [facility] [address] [id number] [address] [place] [address], [place] [address] Jun, [facility] [address] [id number] [address] [place] [address], [place] [address] Jun, [facility] [address] [id number] [address] [place] [address], [place] [address] 15 Jun, 2012 [facility] [address] [id number] [address] [place] [address], [place] [address] 15 Jun, 2012 [facility] [address] [id number] [address] [place] [address], [place] [address] May, [facility] [address] [id number] [address] [place] [address], [place] [address] May, [facility] [address] [id number] [address] [place] [address], [place] [address] May, [facility] [address] [id number] [address] [place] [address], [place] [address] May, [facility] [address] [id number] [address] [place] [address], [place] [address] May, [facility] [address] [id number] [address] [place] [address], [place] [address] May, [facility] [address] [id number] [address] [place] [address], [place] [address] May, [facility] [address] [id number] [address] [place] [address] 15 Apr, 2012 [facility] [address] [id number] [address] [place] [address], [place] [address] 15 Apr, 2012 [facility] [address] [id number] [address] [place] [address] 15 Apr, 2012 [facility] [address] [id number] [address] [place] [address], [place] [address] Apr, [facility] [address] [id number] [address] [place] [address], [place] [address] Apr, [facility] [address] [id number] [address] [place] [address], [place] [address] Apr, [facility] [address] [id number] [address] [place] [address] [place] [address] Apr, [facility] [address] [id number] [address] [place] [address], [place] [address] Apr, [facility] [address] [id number] [address] [place] [address], [place] [address] Jan, [facility] [address] [id number] [address] [place] [address], [place] [address] Jan, [facility] [address] [id number] [address] [place] [address], [place] [address] Dec, [facility] [address] [id number] [address] [place] [address], [place] [address] November, [facility] [address] [id number] [address] [place] [address], [place] [address] Oct, [facility] [address] [id number] [address] [place] [address], [place] [address] Oct, [facility] [address] [id number] [address] [place] [address], [place] [address] Oct, [facility] [address] [id number] [address] [place] [address], [place] [address] Oct, [facility] [address] [id number] [address] [place] [address], [place] [address] Sep, [facility] [address] [id number] [address] [place] [address], [place] [address] Sep, [facility] [address] [id number] [address] [place] [address], [place] [address] Sep, [facility] [address] [id number] [address] [place] [address], [place] [address] Jun, [facility] [address] [id number] [address] [place] [address], [place] [address] Jun, [facility] [address] [id number] [address] [place] [address], [place] [address] May, [facility] [address] [id number] [address] [place] [address] 14 Jan, 2011 [facility] [address] [id number] [address] [place] [address] 19 Nov, 2010 [facility] [address] [id number] [address] [place] [address] 14 Oct, 2010 [facility] [address] [id number] [address] [place] [address] 16 Sep, 2010 [facility] [address] [id number] [address] [place] [address] 30 May, 2010 [facility] [address] [id number] [address] [place] [id number] Jul, [facility] [address] [id number] [address] [place] [address] Jun, [facility] [address] [id number] [address] [place] [address] Jun, [facility] [address] [id number] [address] [place] [address] Jun, [facility] [address] [id number] [address] [place] [address] Jun, [facility] [address] [id number] [address] [place] [address] May, [facility] [address] [id number] [address] [place] [address] May, [facility] [address] [id number] [address] [place] [id number] Apr, [facility] [address] [id number] [address] [place] [address] Apr, [facility] [address] [id number] [address] [place] [address] Apr, IMMUNIZATIONS No Known Immunizations SOCIAL HISTORY Never Assessed REASON FOR VISIT EMR-[facility] PLAN OF CARE VITAL SIGNS MEDICATIONS Unknown [...] right 06/1996 Surgical History multiple knee injections ([id number]) Surgical History left knee replacement 06/11 Hospitalization History Knee surgery- x 3 days 06/11
--- OUTSIDE RECORDS SUMMARY | 2019-12-16 20:35 | XMS REPORT ---
Author Author Patti Guzman Doctor Organization [facility] Address Unknown Phone Unavailable Care Team Providers Care Glove Wrapper Name Role Phone Migration, Doctor Unavailable Unavailable PROBLEMS Type Condition ICD9-CM Code [id number] Code Onset Dates Condition S tatus SNOMED Code Problem Drug abuse counseling and surveillance of drug abuser Z71.51 Active 850878621 Problem Joint pain M25.50 Active 68610729 Problem ADD (attention deficit disorder) F90.0 Active 943791847 Problem Manic bipolar I disorder in partial remission F31. 73 Active 05578580 Problem Edema, unspecified type R60.9 Active 932869512 Problem Episode of recurrent major d epressive disorder, unspecified depression episode severity F33.9 Active 579187810 Problem ADD (attention deficit disorder) without hyperactivity F98.8 Active 79065383 Problem Social anxiety disorder F40.10 Active 60932593 Problem Carpal tunnel syndrome on left G56.02 Active [id number] Problem Insomnia G47.00 Active 882029554 Problem Venous insufficiency (chronic) (peripheral) I87.2 Active [id number] Problem Other chronic pain G89.29 Active 8 0812641 Problem Stimulant abuse F15.10 Active 4415 89730 Problem Bipolar II disorder F31.81 Active 88101537 ALLERGIES No Information ENCOUNTERS Encounter Location Date Diagnosis [facility] [address] [facility] [id number] [address] [place] [phone] May, Screening for lipid disorder s Z13.220 [facility] [address] [facility] [id number] [address] [place] [phone] May, Carpal tunnel syndrome on le ft G56.02 ; Social anxiety disorder F40.10 and Screening for lipid disorders Z13.220 [facility] [address] [facility] [id number] [address] [place] [phone] Apr, Bipolar II disorder F31.81 ; Social anxiety disorder F40.10 ; ADD (attention deficit disorder) without hyperactivity F98.8 and BMI 45.0-49.9, adult Z68.42 [facility] [address] [place] [id number] [address] [place] [phone] 05 Mar, 2018 [place] [address] [place] [id number] [address] [place] [phone] 17 Feb, 2018 BMI 45.0-49.9, adult Z68.42 ; Carpal tunnel syndrome on left G56.02 and Social anxiety disorder F40.10 [place] [address] [place] [id number] [place] [phone] Jan, Bipolar II disorder F31.81 ; ADD (attention deficit disorder) without hyperactivity F98.8 ; Social anxiety disorder F40.10 and Stimulant abuse F15.10 [place] [address] [place] [id number] [place] [phone] Dec, Episode of recurrent major d epressive disorder, unspecified depression episode severity F33.9 ; Other chronic pain G89.29 ; Radiculopathy, lumbar region M54.16 ; Edema of lower extremity R60.0 and BMI 45.0-49.9, adult Z68.42 [place] [address] [address] Jun, [place] [address] [place] [id number] [place] [address] Jan, Joint pain M25.50 [place] [address] [place] [id number] [place] [address] Jan, Wellness examination Z00.00 ; Pain in right knee M25.561 ; Pain in left knee M25.562 ; Edema, unspecified type R60.9 and Drug abuse counseling and surveillance of drug abuser Z71.51 [place] [address] [place] [id number] [address] [place] [phone] November, [place] [address] [place] [id number] [place] [address] Oct, [facility] [address] [facility] [id number] [address] [place] [phone] Oct, ADD (attention deficit disor josselin) F90.0 ; Social anxiety disorder F40.10 and Manic bipolar I disorder in partial remission F31.73 [facility] [address] [id number] [address] [place] [phone] 22 Aug, 2015 [facility] [address] [facility] [id number] [address] [place] [phone] Aug, [facility] [address] [facility] [id number] [address] [place] [phone] Aug, [facility] [address] [facility] [id number] [address] [place] [phone] Jul, [facility] [address] [facility] [id number] [address] [place] [phone] Jul, [facility] [address] [facility] [id number] [address] [place] [phone] Jul, [facility] [address] [facility] [id number] [address] [place] [phone] Jun, [facility] [address] [facility] [id number] [address] [place] [phone] Jun, [facility] [address] [facility] [id number] [address] [place] [phone] Jun, [facility] [address] [facility] [id number] [address] [place] [phone] Jun, [facility] [address] [facility] [id number] [address] [place] [phone] May, Joint pain M25.50 ; ADD (att ention deficit disorder) F90.0 ; Edema R60.9 and Insomnia G47.00 [facility] [address] [facility] [id number] [address] [place] [phone] May, [facility] [address] [facility] [id number] [address] [place] [phone] May, [facility] [address] [facility] [id number] [address] [place] [phone] May, [facility] [address] [facility] [id number] [address] [place] [address] May, Left wrist pain M25.532 ; Si nusitis J32.9 and Drug abuse counseling and surveillance of drug abuser Z71.51 [facility] [address] [id number] [address] [place] [address] Apr, [facility] [address] [facility] [id number] [address] [place] [phone] Apr, [facility] [address] [facility] [id number] [address] [place] [phone] Apr, [facility] [address] [facility] [id number] [address] [place] [phone] Apr, [facility] [address] [facility] [id number] [address] [place] [phone] Apr, [facility] [address] [facility] [id number] [address] [place] [phone] Apr, [facility] [address] [facility] [id number] [address] [place] [phone] Apr, [facility] [address] [facility] [id number] [address] [place] [address] Mar, Unspecified venous (peripher al) insufficiency 459.81 ; Bipolar I disorder, most recent episode (or current) manic, moderate 296.42 ; Social phobia 300.23 ; Attention deficit disorder of childhood without mention of hyperactivity 314.00 ; Pain in joint, lower leg 719.46 ; Thrombosis 453.9 and Chronic pain 338.29 [facility] [address] [facility] [id number] [address] [place] [phone] Mar, [facility] [address] [facility] [id number] [address] [place] [phone] Mar, [facility] [address] [facility] [id number] [address] [place] [phone] 18 Mar, 2015 [facility] [address] [facility] [id number] [address] [place] [phone] Mar, [facility] [address] [facility] [id number] [address] [place] [phone] Mar, [facility] [address] [facility] [id number] [address] [place] [phone] Mar, [facility] [address] [facility] [id number] [address] [place] [phone] 10 Mar, 2015 Manic bipolar I disorder in partial remission 296.45 ; Social phobia 300.23 and Attention deficit disorder of childhood without mention of hyperactivity 314.00 [facility] [address] [facility] [id number] [address] [place] [phone] Mar, [facility] [address] [facility] [id number] [address] [place] [phone] Feb, [facility] [address] [facility] [id number] [address] [place] [phone] Feb, Thrombosis 453.9 ; Unspecifi ed venous (peripheral) insufficiency 459.81 ; Bipolar I disorder, most recent episode (or current) manic, moderate 296.42 ; Social phobia 300.23 ; Attention deficit disorder of childhood without mention of hyperactivity 314.00 ; Pain in joint, lower leg 719.46 and Edema 782.3 [facility] [address] [facility] [id number] [address] [place] [phone] Feb, [facility] [address] [facility] [id number] [address] [place] [phone] Feb, Social phobia 300.23 ; Atten tion deficit disorder of childhood without mention of hyperactivity 314.00 and Bipolar I disorder, most recent episode manic, in partial remission 296.45 [facility] [address] [facility] [id number] [address] [place] [phone] Jan, [facility] [address] [place] [id number] [address] [place] [phone] Jan, [facility] [address] [facility] [id number] [address] [place] [phone] Jan, Unspecified venous (peripher al) insufficiency 459.81 and Thrombophlebitis 451.9 [facility] [address] [facility] [id number] [address] [place] [phone] Jan, [facility] [address] [facility] [id number] [address] [place] [phone] Dec, Headache 784.0 and Back pain 724.5 [facility] [address] [place] [id number] [address] [place] [phone] Dec, [facility] [address] [place] [id number] [address] [place] [id number] Dec, Bipolar I disorder, most rec ent episode (or current) manic, moderate 296.42 ; Attention deficit disorder of childhood without mention of hyperactivity 314.00 and Social phobia 300.23 [facility] [address] [facility] [id number] [address] [place] [phone] November, [facility] [address] [place] [id number] [address] [place] [phone] November, [facility] [address] [place] [id number] [address] [place] [phone] Oct, [facility] [address] [facility] [id number] [address] [place] [phone] Oct, [facility] [address] [facility] [id number] [address] [place] [phone] Sep, [facility] [address] [facility] [id number] [address] [place] [phone] Sep, [facility] [address] [facility] [id number] [address] [place] [phone] Aug, [facility] [address] [place] [id number] [address] [place] [phone] Aug, 2014 [facility] [address] [id number] [address] [place] [address], [place] [address] Aug, 2014 [facility] [address] [id number] [address] [place] [address], [place] [address] Aug, 2014 [facility] [address] [id number] [address] [place] [address], [place] [address] Aug, 2014 [facility] [address] [id number] [address] [place] [address], [place] [address] Aug, [facility] [address] [id number] [address] [place] [address], [place] [address] Aug, [facility] [address] [id number] [address] [place] [address], [place] [address] Jul, [facility] [address] [id number] [address] [place] [address], [place] [address] Jul, [facility] [address] [id number] [address] [place] [address], [place] [address] Jun, [facility] [address] [id number] [address] [place] [address], [place] [address] Jun, [facility] [address] [id number] [address] [place] [address], [place] [address] May, [facility] [address] [id number] [address] [place] [address], [place] [address] May, [facility] [address] [id number] [address] [place] [address], [place] [address] May, [facility] [address] [id number] [address] [place] [address], [place] [address] May, [facility] [address] [id number] [address] [place] [address], [place] [address] May, [facility] [address] [id number] [address] [place] [address], [place] [address] May, [facility] [address] [id number] [address] [place] [address], [place] [address] Apr, [facility] [address] [id number] [address] [place] [address], [place] [address] Apr, [facility] [address] [id number] [address] [place] [address], [place] [address] Apr, [facility] [address] [id number] [address] [place] [address], [place] [address] Apr, [facility] [address] [id number] [address] [place] [address], [place] [address] 22 Mar, 2014 [facility] [address] [id number] [address] [place] [address], [place] [address] 22 Mar, 2013 [facility] [address] [id number] [address] [place] [address], [place] [address] 19 Mar, 2013 [facility] [address] [id number] [address] [place] [address], [place] [address] 16 Mar, 2013 [facility] [address] [id number] [address] [place] [address], [place] [address] 16 Mar, 2013 [facility] [address] [id number] [address] [place] [address], [place] [address] 15 Mar, 2013 [facility] [address] [id number] [address] [place] [address], [place] [address] 11 Mar, 2013 [facility] [address] [id number] [address] [place] [address], [place] [address] 11 Mar, 2013 [facility] [address] [id number] [address] [place] [address], [place] [address] 11 Mar, 2013 [facility] [address] [id number] [address] [place] [address], [place] [address] 11 Mar, 2013 [facility] [address] [id number] [address] [place] [address], [place] [address] 10 Mar, 2013 [facility] [address] [id number] [address] [place] [address], [place] [address] Mar, 2013 [facility] [address] [id number] [address] [place] [address], [place] [address] Mar, 2013 [facility] [address] [id number] [address] [place] [address], [place] [address] Mar, [facility] [address] [id number] [address] [place] [address], [place] [address] Mar, [facility] [address] [id number] [address] [place] [address], [place] [address] Feb, [facility] [address] [id number] [address] [place] [address], [place] [address] Feb, [facility] [address] [id number] [address] [place] [address], [place] [address] Feb, [facility] [address] [id number] [address] [place] [address], [place] [address] Feb, [facility] [address] [id number] [address] [place] [address], [place] [address] Feb, [facility] [address] [id number] [address] [place] [address], [place] [address] Feb, [facility] [address] [id number] [address] [place] [address], [place] [address] Feb, [facility] [address] [id number] [address] [place] [address], [place] [address] Feb, [facility] [address] [id number] [address] [place] [address], [place] [address] Feb, [facility] [address] [id number] [address] [place] [address], [place] [address] Feb, [facility] [address] [id number] [address] [place] [address], [place] [address] Feb, [facility] [address] [id number] [address] [place] [address], [place] [address] Feb, [facility] [address] [id number] [facility] [place] [facility] [place] [address] Feb, [facility] [address] [id number] [address] [place] [address], [place] [address] Feb, [facility] [address] [id number] [address] [place] [address], [place] [address] Jan, [facility] [address] [id number] [address] [place] [address], [place] [address] Jan, [facility] [address] [id number] [address] [place] [address], [place] [address] Jan, [facility] [address] [id number] [address] [place] [address], [place] [address] Jan, [facility] [address] [id number] [address] [place] [address], [place] [address] Jan, [facility] [address] [id number] [address] [place] [address], [place] [address] Jan, [facility] [address] [id number] [address] [place] [address], [place] [address] Jan, [facility] [address] [id number] [address] [place] [address], [place] [address] Dec, [facility] [address] [id number] [address] [place] [address], [place] [address] Dec, [facility] [address] [id number] [address] [place] [address], [place] [address] Dec, [facility] [address] [id number] [address] [place] [address], [place] [address] Dec, [facility] [address] [id number] [address] [place] [address], [place] [address] Dec, [facility] [address] [id number] [address] [place] [address], [place] [address] Dec, [facility] [address] [id number] [address] [place] [address], [place] [address] Dec, [facility] [address] [id number] [address] [place] [address], [place] [address] Dec, [facility] [address] [id number] [address] [place] [address], [place] [address] Dec, [facility] [address] [id number] [address] [place] [address], [place] [address] November, [facility] [address] [id number] [address] [place] [address], [place] [address] November, [facility] [address] [id number] [address] [place] [address], [place] [address] November, [facility] [address] [id number] [address] [place] [address], [place] [id number] November, [facility] [address] [id number] [address] [place] [address], [place] [address] November, [facility] [address] [id number] [address] [place] [address], [place] [address] November, [facility] [address] [id number] [address] [place] [address], [place] [address] November, [facility] [address] [id number] [address] [place] [address], [place] [address] November, [facility] [address] [id number] [address] [place] [address], [place] [address] November, [facility] [address] [id number] [address] [place] [address], [place] [address] November, [facility] [address] [id number] [address] [place] [address], [place] [address] November, [facility] [address] [id number] [address] [place] [address], [place] [address] November, [facility] [address] [id number] [address] [place] [address], [place] [address] November, [facility] [address] [id number] [address] [place] [address], [place] [address] November, [facility] [address] [id number] [address] [place] [address], [place] [address] Oct, [facility] [address] [id number] [address] [place] [address], [place] [address] Oct, [facility] [address] [id number] [address] [place] [address], [place] [address] Oct, [facility] [address] [id number] [address] [place] [address], [place] [address] Oct, [facility] [address] [id number] [address] [place] [address], [place] [address] Oct, [facility] [address] [id number] [address] [place] [address], [place] [address] Oct, [facility] [address] [id number] [address] [place] [address], [place] [address] Sep, [facility] [address] [id number] [address] [place] [address], [place] [address] Sep, [facility] [address] [id number] [address] [place] [address], [place] [address] Sep, [facility] [address] [id number] [address] [place] [address], [place] [address] Sep, [facility] [address] [id number] [address] [place] [address], [place] [address] Aug, [facility] [address] [id number] [address] [place] [address], [place] [address] Aug, [facility] [address] [id number] [address] [place] [address], [place] [address] Aug, [facility] [address] [id number] [address] [place] [address], [place] [address] Aug, [facility] [address] [id number] [address] [place] [address], [place] [address] Jul, [facility] [address] [id number] [address] [place] [address], [place] [address] Jul, [facility] [address] [id number] [address] [place] [address], [place] [address] Jul, [facility] [address] [id number] [address] [place] [address], [place] [address] Jul, [facility] [address] [id number] [address] [place] [address], [place] [address] Jul, [facility] [address] [id number] [address] [place] [address], [place] [address] Jul, [facility] [address] [id number] [address] [place] [address], [place] [address] Jul, [facility] [address] [id number] [address] [place] [address], [place] [address] Jun, [facility] [address] [id number] [address] [place] [address], [place] [address] Jun, [facility] [address] [id number] [address] [place] [address], [place] [address] Jun, [facility] [address] [id number] [address] [place] [address], [place] [address] 17 Jun, 2013 [facility] [address] [id number] [address] [place] [address], [place] [address] Jun, [facility] [address] [id number] [address] [place] [address], [place] [address] Jun, [facility] [address] [id number] [address] [place] [address], [place] [address] May, [facility] [address] [id number] [address] [place] [address], [place] [address] 07 May, 2013 [facility] [address] [id number] [address] [place] [address], [place] [address] 15 Apr, 2013 [facility] [address] [id number] [address] [place] [address], [place] [address] 15 Apr, 2013 [facility] [address] [id number] [address] [place] [address], [place] [address] Apr, [facility] [address] [id number] [address] [place] [address], [place] [address] Apr, [facility] [address] [id number] [address] [place] [address], [place] [address] 08 Apr, 2013 [facility] [address] [id number] [address] [place] [address], [place] [address] 24 Mar, 2013 [facility] [address] [id number] [address] [place] [address], [place] [address] Mar, [facility] [address] [id number] [address] [place] [address], [place] [address] Mar, [facility] [address] [id number] [address] [place] [address], [place] [address] Mar, [facility] [address] [id number] [address] [place] [address], [place] [address] Feb, [facility] [address] [id number] [address] [place] [address], [place] [address] Feb, [facility] [address] [id number] [address] [place] [address], [place] [address] Jan, [facility] [address] [id number] [address] [place] [address], [place] [address] Jan, [facility] [address] [id number] [address] [place] [address], [place] [address] Jan, [facility] [address] [id number] [address] [place] [address], [place] [address] Jan, [facility] [address] [id number] [address] [place] [address], [place] [address] Dec, [facility] [address] [id number] [address] [place] [address], [place] [address] Dec, [facility] [address] [id number] [address] [place] [address], [place] [address] 07 Dec, 2012 [facility] [address] [id number] [address] [place] [address], [place] [address] 06 Dec, 2012 [facility] [address] [id number] [address] [place] [address], [place] [address] 16 Nov, 2012 [facility] [address] [id number] [address] [place] [address], [place] [address] November, [facility] [address] [id number] [address] [place] [address], [place] [address] Oct, [facility] [address] [id number] [address] [place] [address], [place] [address] Sep, [facility] [address] [id number] [address] [place] [address], [place] [address] 08 Sep, 2012 [facility] [address] [id number] [address] [place] [address], [place] [address] 14 Aug, 2012 [facility] [address] [id number] [address] [place] [address], [place] [address] 13 Aug, 2012 [facility] [address] [id number] [address] [place] [address], [place] [address] Jul, [facility] [address] [id number] [address] [place] [address], [place] [address] Jul, [facility] [address] [id number] [address] [place] [address], [place] [address] Jul, [facility] [address] [id number] [address] [place] [address], [place] [address] Jun, [facility] [address] [id number] [address] [place] [address], [place] [address] Jun, [facility] [address] [id number] [address] [place] [address], [place] [address] Jun, [facility] [address] [id number] [address] [place] [address], [place] [address] Jun, [facility] [address] [id number] [address] [place] [address], [place] [address] May, [facility] [address] [id number] [address] [place] [address], [place] [address] May, [facility] [address] [id number] [address] [place] [address], [place] [address] May, [facility] [address] [id number] [address] [place] [address], [place] [address] May, [facility] [address] [id number] [address] [place] [address], [place] [address] May, [facility] [address] [id number] [address] [place] [address], [place] [address] May, [facility] [address] [id number] [address] [place] [address], [place] [address] May, [facility] [address] [id number] [address] [place] [id number] 15 Apr, 2012 [facility] [address] [id number] [address] [place] [address], [place] [address] Apr, [facility] [address] [id number] [address] [place] [address] Apr, [facility] [address] [id number] [address] [place] [address] Apr, [facility] [address] [id number] [address] [place] [address] Apr, [facility] [address] [id number] [address] [place] [address] Apr, [facility] [address] [id number] [address] [place] [id number] Apr, [facility] [address] [id number] [address] [place] [address] Apr, [facility] [address] [id number] [address] [place] [address], [place] [address] Jan, [facility] [address] [id number] [address] [place] [address], [place] [address] Jan, [facility] [address] [id number] [address] [place] [address], [place] [address] Dec, [facility] [address] [id number] [address] [place] [address], [place] [address] November, [facility] [address] [id number] [address] [place] [address], [place] [address] Oct, [facility] [address] [id number] [address] [place] [address], [place] [address] Oct, [facility] [address] [id number] [address] [place] [address], [place] [address] Oct, [facility] [address] [id number] [address] [place] [address], [place] [address] Oct, [facility] [address] [id number] [address] [place] [address], [place] [address] Sep, [facility] [address] [id number] [address] [place] [address], [place] [address] Sep, [facility] [address] [id number] [address] [place] [address], [place] [address] Sep, [facility] [address] [id number] [address] [place] [address], [place] [address] Jun, [facility] [address] [id number] [address] [place] [address], [place] [address] Jun, [facility] [address] [id number] [address] [place] [address], [place] [address] May, [facility] [address] [id number] [address] [place] [address], [place] [address] 14 Jan, 2011 [facility] [address] [id number] [address] [place] [address], [place] [address] November, [facility] [address] [id number] [address] [place] [id number] 14 Oct, 2010 [facility] [address] [id number] [address] [place] [id number] 16 Sep, 2010 [facility] [address] [id number] [address] [place] [id number] 30 May, 2010 [facility] [address] [id number] [address] [place] [address] Jul, [facility] [address] [id number] [address] [place] [id number] Jun, [facility] [address] [id number] [address] [place] [id number] Jun, [facility] [address] [id number] [address] [place] [id number] Jun, [facility] [address] [id number] [address] [place] [id number] Jun, [facility] [address] [id number] [address] [place] [id number] May, [facility] [address] [id number] [address] [place] [id number] May, [facility] [address] [id number] [address] [place] [id number] Apr, [facility] [address] [id number] [address] [place] [id number] Apr, [facility] [address] [id number] [address] [place] [id number] Apr, IMMUNIZATIONS No Known Immunizations SOCIAL HISTORY Never Assessed REASON FOR VISIT EMR-[facility] PLAN OF CARE VITAL SIGNS MEDICATIONS Unknown [...] right 06/1996 Surgical History multiple knee injections ([id number]) Surgical History left knee replacement 06/11 Hospitalization History Knee surgery- x 3 days 06/11
--- OUTSIDE RECORDS SUMMARY | 2019-12-16 20:35 | XMS REPORT ---
Author Author Patti Guzman Doctor Organization [facility] Address Unknown Phone Unavailable Care Team Providers Care Returned Goods Repairer Name Role Phone Migration, Doctor Unavailable Unavailable PROBLEMS Type Condition ICD9-CM Code FLU94-CR Code Onset Dates Condition S tatus SNOMED Code Problem Drug abuse counseling and surveillance of drug abuser Z71.51 Active 921658005 Problem Joint pain M25.50 Active 21183111 Problem ADD (attention deficit disorder) F90.0 Active 582442190 Problem Manic bipolar I disorder in partial remission F31. 73 Active 70318665 Problem Edema, unspecified type R60.9 Active 977170912 Problem Episode of recurrent major d epressive disorder, unspecified depression episode severity F33.9 Active 646803680 Problem ADD (attention deficit disorder) without hyperactivity F98.8 Active 97009376 Problem Social anxiety disorder F40.10 Active 04528190 Problem Carpal tunnel syndrome on left G56.02 Active [id number] Problem Insomnia G47.00 Active 431688173 Problem Venous insufficiency (chronic) (peripheral) I87.2 Active [id number] Problem Other chronic pain G89.29 Active 8 1714199 Problem Stimulant abuse F15.10 Active 4415 00542 Problem Bipolar II disorder F31.81 Active 88486140 ALLERGIES No Information ENCOUNTERS Encounter Location Date Diagnosis [facility] [address] [facility] [id number] [address] [place] [phone] May, Screening for lipid disorder s Z13.220 [facility] [address] [facility] [id number] [address] [place] [phone] May, Carpal tunnel syndrome on le ft G56.02 ; Social anxiety disorder F40.10 and Screening for lipid disorders Z13.220 [facility] [address] [facility] [id number] [address] [place] [address] Apr, Bipolar II disorder F31.81 ; Social anxiety disorder F40.10 ; ADD (attention deficit disorder) without hyperactivity F98.8 and BMI 45.0-49.9, adult Z68.42 [place] [address] [place] [id number] [address] [place] [phone] 05 Mar, 2018 [place] [address] [place] [id number] [address] [place] [address] 17 Feb, 2018 BMI 45.0-49.9, adult Z68.42 ; Carpal tunnel syndrome on left G56.02 and Social anxiety disorder F40.10 [place] [address] [place] [id number] [place] [address] Jan, Bipolar II disorder F31.81 ; ADD (attention deficit disorder) without hyperactivity F98.8 ; Social anxiety disorder F40.10 and Stimulant abuse F15.10 [place] [address] [place] [id number] [place] [address] Dec, Episode of recurrent major d epressive disorder, unspecified depression episode severity F33.9 ; Other chronic pain G89.29 ; Radiculopathy, lumbar region M54.16 ; Edema of lower extremity R60.0 and BMI 45.0-49.9, adult Z68.42 [place] [address] [address] Jun, [place] [address] [place] [id number] [place] [address] Jan, Joint pain M25.50 [place] [address] [place] [id number] [place] [address] Jan, Wellness examination Z00.00 ; Pain in right knee M25.561 ; Pain in left knee M25.562 ; Edema, unspecified type R60.9 and Drug abuse counseling and surveillance of drug abuser Z71.51 [place] [address] [place] [id number] [address] [place] [address] November, [place] [address] [place] [id number] [place] [address] Oct, [place] [address] [facility] [id number] [address] [place] [phone] Oct, ADD (attention deficit disor josselin) F90.0 ; Social anxiety disorder F40.10 and Manic bipolar I disorder in partial remission F31.73 [facility] [address] [id number] [address] [place] [address] 22 Aug, 2015 [facility] [address] [facility] [id number] [address] [place] [phone] Aug, [facility] [address] [facility] [id number] [address] [place] [phone] Aug, [facility] [address] [facility] [id number] [address] [place] [address] Jul, [facility] [address] [facility] [id number] [address] [place] [phone] Jul, [facility] [address] [facility] [id number] [address] [place] [address] Jul, [facility] [address] [facility] [id number] [address] [place] [phone] Jun, [facility] [address] [facility] [id number] [address] [place] [address] Jun, [facility] [address] [facility] [id number] [address] [place] [phone] Jun, [facility] [address] [facility] [id number] [address] [place] [address] Jun, [facility] [address] [facility] [id number] [address] [place] [address] May, Joint pain M25.50 ; ADD (att ention deficit disorder) F90.0 ; Edema R60.9 and Insomnia G47.00 [facility] [address] [facility] [id number] [address] [place] [address] May, [facility] [address] [facility] [id number] [address] [place] [phone] May, [facility] [address] [facility] [id number] [address] [place] [address] May, [facility] [address] [facility] [id number] [address] [place] [address] May, Left wrist pain M25.532 ; Si nusitis J32.9 and Drug abuse counseling and surveillance of drug abuser Z71.51 [facility] [address] [id number] [address] [place] [address] Apr, [facility] [address] [facility] [id number] [address] [place] [address] Apr, [facility] [address] [facility] [id number] [address] [place] [phone] Apr, [facility] [address] [facility] [id number] [address] [place] [address] Apr, [facility] [address] [facility] [id number] [address] [place] [address] Apr, [facility] [address] [facility] [id number] [address] [place] [phone] Apr, [facility] [address] [facility] [id number] [address] [place] [phone] Apr, [facility] [address] [facility] [id number] [address] [place] [address] Mar, Unspecified venous (peripher al) insufficiency 459.81 ; Bipolar I disorder, most recent episode (or current) manic, moderate 296.42 ; Social phobia 300.23 ; Attention deficit disorder of childhood without mention of hyperactivity 314.00 ; Pain in joint, lower leg 719.46 ; Thrombosis 453.9 and Chronic pain 338.29 [facility] [address] [facility] [id number] [address] [place] [address] Mar, [facility] [address] [facility] [id number] [address] [place] [phone] Mar, [facility] [address] [facility] [id number] [address] [place] [phone] 18 Mar, 2015 [facility] [address] [facility] [id number] [address] [place] [address] Mar, [facility] [address] [facility] [id number] [address] [place] [phone] Mar, [facility] [address] [facility] [id number] [address] [place] [address] Mar, [facility] [address] [facility] [id number] [address] [place] [address] 10 Mar, 2015 Manic bipolar I disorder in partial remission 296.45 ; Social phobia 300.23 and Attention deficit disorder of childhood without mention of hyperactivity 314.00 [facility] [address] [facility] [id number] [address] [place] [address] Mar, [facility] [address] [facility] [id number] [address] [place] [phone] Feb, [facility] [address] [facility] [id number] [address] [place] [address] Feb, Thrombosis 453.9 ; Unspecifi ed venous (peripheral) insufficiency 459.81 ; Bipolar I disorder, most recent episode (or current) manic, moderate 296.42 ; Social phobia 300.23 ; Attention deficit disorder of childhood without mention of hyperactivity 314.00 ; Pain in joint, lower leg 719.46 and Edema 782.3 [facility] [address] [facility] [id number] [address] [place] [phone] Feb, [facility] [address] [facility] [id number] [address] [place] [address] Feb, Social phobia 300.23 ; Atten tion deficit disorder of childhood without mention of hyperactivity 314.00 and Bipolar I disorder, most recent episode manic, in partial remission 296.45 [facility] [address] [facility] [id number] [address] [place] [phone] Jan, [facility] [address] [place] [id number] [address] [place] [phone] Jan, [facility] [address] [facility] [id number] [address] [place] [address] Jan, Unspecified venous (peripher al) insufficiency 459.81 and Thrombophlebitis 451.9 [facility] [address] [facility] [id number] [address] [place] [phone] Jan, [facility] [address] [facility] [id number] [address] [place] [address] Dec, Headache 784.0 and Back pain 724.5 [facility] [address] [place] [id number] [address] [place] [address] Dec, [facility] [address] [place] [id number] [address] [place] [address] Dec, Bipolar I disorder, most rec ent episode (or current) manic, moderate 296.42 ; Attention deficit disorder of childhood without mention of hyperactivity 314.00 and Social phobia 300.23 [facility] [address] [facility] [id number] [address] [place] [phone] November, [facility] [address] [place] [id number] [address] [place] [phone] November, [facility] [address] [place] [id number] [address] [place] [phone] Oct, [facility] [address] [facility] [id number] [address] [place] [phone] Oct, [facility] [address] [facility] [id number] [address] [place] [address] Sep, [facility] [address] [facility] [id number] [address] [place] [phone] Sep, [facility] [address] [facility] [id number] [address] [place] [phone] Aug, [facility] [address] [place] [id number] [address] [place] [address] Aug, 2014 [facility] [address] [id number] [address] [place] [address], [place] [address] Aug, 2014 [facility] [address] [id number] [address] [place] [address], [place] [address] Aug, 2014 [facility] [address] [id number] [address] [place] [address], [place] [address] Aug, 2014 [facility] [address] [id number] [address] [place] [address], [place] [address] Aug, [facility] [address] [id number] [address] [place] [address], [place] [address] Aug, [facility] [address] [id number] [address] [place] [address], [place] [address] Jul, [facility] [address] [id number] [address] [place] [address], [place] [address] Jul, [facility] [address] [id number] [address] [place] [address], [place] [address] Jun, [facility] [address] [id number] [address] [place] [address], [place] [address] Jun, [facility] [address] [id number] [address] [place] [address], [place] [address] May, [facility] [address] [id number] [address] [place] [address], [place] [address] May, [facility] [address] [id number] [address] [place] [address], [place] [address] May, [facility] [address] [id number] [address] [place] [address], [place] [address] May, [facility] [address] [id number] [address] [place] [address], [place] [address] May, [facility] [address] [id number] [address] [place] [address], [place] [address] May, [facility] [address] [id number] [address] [place] [address], [place] [address] Apr, [facility] [address] [id number] [address] [place] [address], [place] [address] Apr, [facility] [address] [id number] [address] [place] [address], [place] [address] Apr, [facility] [address] [id number] [address] [place] [address], [place] [address] Apr, [facility] [address] [id number] [address] [place] [address], [place] [address] 22 Mar, 2014 [facility] [address] [id number] [address] [place] [address], [place] [address] 22 Mar, 2013 [facility] [address] [id number] [address] [place] [address], [place] [address] 19 Mar, 2013 [facility] [address] [id number] [address] [place] [address], [place] [address] 16 Mar, 2013 [facility] [address] [id number] [address] [place] [address], [place] [address] 16 Mar, 2013 [facility] [address] [id number] [address] [place] [address], [place] [address] 15 Mar, 2013 [facility] [address] [id number] [address] [place] [address], [place] [address] 11 Mar, 2013 [facility] [address] [id number] [address] [place] [address], [place] [address] 11 Mar, 2013 [facility] [address] [id number] [address] [place] [address], [place] [address] 11 Mar, 2013 [facility] [address] [id number] [address] [place] [address], [place] [address] 11 Mar, 2013 [facility] [address] [id number] [address] [place] [address], [place] [address] 10 Mar, 2013 [facility] [address] [id number] [address] [place] [address], [place] [address] Mar, 2013 [facility] [address] [id number] [address] [place] [address], [place] [address] Mar, 2013 [facility] [address] [id number] [address] [place] [address], [place] [address] Mar, [facility] [address] [id number] [address] [place] [address], [place] [address] Mar, [facility] [address] [id number] [address] [place] [address], [place] [address] Feb, [facility] [address] [id number] [address] [place] [address], [place] [address] Feb, [facility] [address] [id number] [address] [place] [address], [place] [address] Feb, [facility] [address] [id number] [address] [place] [address], [place] [address] Feb, [facility] [address] [id number] [address] [place] [address], [place] [address] Feb, [facility] [address] [id number] [address] [place] [address], [place] [address] Feb, [facility] [address] [id number] [address] [place] [address], [place] [address] Feb, [facility] [address] [id number] [address] [place] [address], [place] [address] Feb, [facility] [address] [id number] [address] [place] [address], [place] [address] Feb, [facility] [address] [id number] [address] [place] [address], [place] [address] Feb, [facility] [address] [id number] [address] [place] [address], [place] [address] Feb, [facility] [address] [id number] [address] [place] [address], [place] [address] Feb, [facility] [address] [id number] [facility] [place] [address] Feb, [facility] [address] [id number] [address] [place] [address], [place] [address] Feb, [facility] [address] [id number] [address] [place] [address], [place] [address] Jan, [facility] [address] [id number] [address] [place] [address], [place] [address] Jan, [facility] [address] [id number] [address] [place] [address], [place] [address] Jan, [facility] [address] [id number] [address] [place] [address], [place] [address] Jan, [facility] [address] [id number] [address] [place] [address], [place] [address] Jan, [facility] [address] [id number] [address] [place] [address], [place] [address] Jan, [facility] [address] [id number] [address] [place] [address], [place] [address] Jan, [facility] [address] [id number] [address] [place] [address], [place] [address] Dec, [facility] [address] [id number] [address] [place] [address], [place] [address] Dec, [facility] [address] [id number] [address] [place] [address], [place] [address] Dec, [facility] [address] [id number] [address] [place] [address], [place] [address] Dec, [facility] [address] [id number] [address] [place] [address], [place] [address] Dec, [facility] [address] [id number] [address] [place] [address], [place] [address] Dec, [facility] [address] [id number] [address] [place] [address], [place] [address] Dec, [facility] [address] [id number] [address] [place] [address], [place] [address] Dec, [facility] [address] [id number] [address] [place] [address], [place] [address] Dec, [facility] [address] [id number] [address] [place] [address], [place] [address] November, [facility] [address] [id number] [address] [place] [address], [place] [address] November, [facility] [address] [id number] [address] [place] [address], [place] [address] November, [facility] [address] [id number] [address] [place] [address], [place] [address] November, [facility] [address] [id number] [address] [place] [address], [place] [address] November, [facility] [address] [id number] [address] [place] [address], [place] [address] November, [facility] [address] [id number] [address] [place] [address], [place] [address] November, [facility] [address] [id number] [address] [place] [address], [place] [address] November, [facility] [address] [id number] [address] [place] [address], [place] [address] November, [facility] [address] [id number] [address] [place] [address], [place] [address] November, [facility] [address] [id number] [address] [place] [address], [place] [address] November, [facility] [address] [id number] [address] [place] [address], [place] [address] November, [facility] [address] [id number] [address] [place] [address], [place] [address] November, [facility] [address] [id number] [address] [place] [address], [place] [address] November, [facility] [address] [id number] [address] [place] [address], [place] [address] Oct, [facility] [address] [id number] [address] [place] [address], [place] [address] Oct, [facility] [address] [id number] [address] [place] [address], [place] [address] Oct, [facility] [address] [id number] [address] [place] [address], [place] [address] Oct, [facility] [address] [id number] [address] [place] [address], [place] [address] Oct, [facility] [address] [id number] [address] [place] [address], [place] [address] Oct, [facility] [address] [id number] [address] [place] [address], [place] [address] Sep, [facility] [address] [id number] [address] [place] [address], [place] [address] Sep, [facility] [address] [id number] [address] [place] [address], [place] [address] Sep, [facility] [address] [id number] [address] [place] [address], [place] [address] Sep, [facility] [address] [id number] [address] [place] [address], [place] [address] Aug, [facility] [address] [id number] [address] [place] [address], [place] [address] Aug, [facility] [address] [id number] [address] [place] [address], [place] [address] Aug, [facility] [address] [id number] [address] [place] [address], [place] [address] Aug, [facility] [address] [id number] [address] [place] [address], [place] [address] Jul, [facility] [address] [id number] [address] [place] [address], [place] [address] Jul, [facility] [address] [id number] [address] [place] [address], [place] [address] Jul, [facility] [address] [id number] [address] [place] [address], [place] [address] Jul, [facility] [address] [id number] [address] [place] [address], [place] [address] Jul, [facility] [address] [id number] [address] [place] [address], [place] [address] Jul, [facility] [address] [id number] [address] [place] [address], [place] [address] Jul, [facility] [address] [id number] [address] [place] [address], [place] [address] Jun, [facility] [address] [id number] [address] [place] [address], [place] [address] Jun, [facility] [address] [id number] [address] [place] [address], [place] [address] Jun, [facility] [address] [id number] [address] [place] [address], [place] [address] 17 Jun, 2013 [facility] [address] [id number] [address] [place] [address], [place] [address] Jun, [facility] [address] [id number] [address] [place] [address], [place] [address] Jun, [facility] [address] [id number] [address] [place] [address], [place] [address] May, [facility] [address] [id number] [address] [place] [address], [place] [address] 07 May, [address] [facility] [address] [id number] [address] [place] [address], [place] [address] 15 Apr, 2013 [facility] [address] [id number] [address] [place] [address], [place] [address] 15 Apr, 2013 [facility] [address] [id number] [address] [place] [address], [place] [id number] Apr, [facility] [address] [id number] [address] [place] [address], [place] [address] Apr, [facility] [address] [id number] [address] [place] [address], [place] [address] 08 Apr, 2013 [facility] [address] [id number] [address] [place] [address], [place] [address] 24 Mar, 2013 [facility] [address] [id number] [address] [place] [address], [place] [address] Mar, [facility] [address] [id number] [address] [place] [address], [place] [address] Mar, [facility] [address] [id number] [address] [place] [address], [place] [address] Mar, [facility] [address] [id number] [address] [place] [address], [place] [address] Feb, [facility] [address] [id number] [address] [place] [address], [place] [address] Feb, [facility] [address] [id number] [address] [place] [address], [place] [address] Jan, [facility] [address] [id number] [address] [place] [address], [place] [address] Jan, [facility] [address] [id number] [address] [place] [address], [place] [address] Jan, [facility] [address] [id number] [address] [place] [address], [place] [address] Jan, [facility] [address] [id number] [address] [place] [address], [place] [address] Dec, [facility] [address] [id number] [address] [place] [address], [place] [address] Dec, [facility] [address] [id number] [address] [place] [address], [place] [address] 07 Dec, 2012 [facility] [address] [id number] [address] [place] [address], [place] [address] 06 Dec, [address] [facility] [address] [id number] [address] [place] [address], [place] [address] 16 Nov, 2012 [facility] [address] [id number] [address] [place] [address], [place] [address] November, [facility] [address] [id number] [address] [place] [address], [place] [address] Oct, [facility] [address] [id number] [address] [place] [address], [place] [address] Sep, [facility] [address] [id number] [address] [place] [address], [place] [address] 08 Sep, 2012 [facility] [address] [id number] [address] [place] [address], [place] [address] 14 Aug, 2012 [facility] [address] [id number] [address] [place] [address], [place] [address] 13 Aug, 2012 [facility] [address] [id number] [address] [place] [address], [place] [address] Jul, [facility] [address] [id number] [address] [place] [address], [place] [address] Jul, [facility] [address] [id number] [address] [place] [address], [place] [address] Jul, [facility] [address] [id number] [address] [place] [address], [place] [address] Jun, [facility] [address] [id number] [address] [place] [address], [place] [address] Jun, [facility] [address] [id number] [address] [place] [address], [place] [address] Jun, [facility] [address] [id number] [address] [place] [address], [place] [address] Jun, [facility] [address] [id number] [address] [place] [address], [place] [address] May, [facility] [address] [id number] [address] [place] [address], [place] [address] May, [facility] [address] [id number] [address] [place] [address], [place] [address] May, [facility] [address] [id number] [address] [place] [address], [place] [address] May, [facility] [address] [id number] [address] [place] [address], [place] [address] May, [facility] [address] [id number] [address] [place] [address], [place] [address] May, [facility] [address] [id number] [address] [place] [address], [place] [address] May, [facility] [address] [id number] [address] [place] [id number] 15 Apr, 2012 [facility] [address] [id number] [address] [place] [address], [place] [address] Apr, [facility] [address] [id number] [address] [place] [address] Apr, [facility] [address] [id number] [address] [place] [address] Apr, [facility] [address] [id number] [address] [place] [address] Apr, [facility] [address] [id number] [address] [place] [address] Apr, [facility] [address] [id number] [address] [place] [address] Apr, [facility] [address] [id number] [address] [place] [id number] Apr, [facility] [address] [id number] [address] [place] [address], [place] [address] Jan, [facility] [address] [id number] [address] [place] [address], [place] [address] Jan, [facility] [address] [id number] [address] [place] [address], [place] [address] Dec, [facility] [address] [id number] [address] [place] [address], [place] [address] November, [facility] [address] [id number] [address] [place] [address], [place] [address] Oct, [facility] [address] [id number] [address] [place] [address], [place] [address] Oct, [facility] [address] [id number] [address] [place] [address], [place] [address] Oct, [facility] [address] [id number] [address] [place] [address], [place] [address] Oct, [facility] [address] [id number] [address] [place] [address], [place] [address] Sep, [facility] [address] [id number] [address] [place] [address], [place] [address] Sep, [facility] [address] [id number] [address] [place] [address], [place] [address] Sep, [facility] [address] [id number] [address] [place] [address], [place] [address] Jun, [facility] [address] [id number] [address] [place] [address], [place] [address] Jun, [facility] [address] [id number] [address] [place] [address], [place] [address] May, [facility] [address] [id number] [address] [place] [address], [place] [address] 14 Jan, 2011 [facility] [address] [id number] [address] [place] [address], [place] [address] November, [facility] [address] [id number] [address] [place] [phone] 14 Oct, 2010 [facility] [address] [id number] [address] [place] [id number] 16 Sep, 2010 [facility] [address] [id number] [address] [place] [address] 30 May, 2010 [facility] [address] [id number] [address] [place] [phone] Jul, [facility] [address] [id number] [address] [place] [phone] Jun, [facility] [address] [id number] [address] [place] [address] Jun, [facility] [address] [id number] [address] [place] [address] Jun, [facility] [address] [id number] [address] [place] [address] Jun, [facility] [address] [id number] [address] [place] [address] May, [facility] [address] [id number] [address] [place] [phone] May, [facility] [address] [id number] [address] [place] [phone] Apr, [facility] [address] [id number] [address] [place] [id number] Apr, [facility] [address] [id number] [address] [place] [id number] Apr, IMMUNIZATIONS No Known Immunizations SOCIAL HISTORY Never Assessed REASON FOR VISIT EMR-[facility] PLAN OF CARE VITAL SIGNS MEDICATIONS Unknown [...] right 06/1996 Surgical History multiple knee injections ([id number]) Surgical History left knee replacement 06/11 Hospitalization History Knee surgery- x 3 days 06/11
--- OUTSIDE RECORDS SUMMARY | 2019-12-16 20:35 | XMS REPORT ---
Author Author Patti Guzman Doctor Organization [facility] Address Unknown Phone Unavailable Care Team Providers Care Salesperson Shoes Name Role Phone Migration, Doctor Unavailable Unavailable PROBLEMS Type Condition ICD9-CM Code PIC13-IT Code Onset Dates Condition S tatus SNOMED Code Problem Drug abuse counseling and surveillance of drug abuser Z71.51 Active 536046973 Problem Joint pain M25.50 Active 53795641 Problem ADD (attention deficit disorder) F90.0 Active 257890283 Problem Manic bipolar I disorder in partial remission F31. 73 Active 88001323 Problem Edema, unspecified type R60.9 Active 756657499 Problem Episode of recurrent major d epressive disorder, unspecified depression episode severity F33.9 Active 714999810 Problem ADD (attention deficit disorder) without hyperactivity F98.8 Active 32765464 Problem Social anxiety disorder F40.10 Active 14685581 Problem Carpal tunnel syndrome on left G56.02 Active 013830798091701 Problem Insomnia G47.00 Active 745702301 Problem Venous insufficiency (chronic) (peripheral) I87.2 Active [id number] Problem Other chronic pain G89.29 Active 8 5375660 Problem Stimulant abuse F15.10 Active 4415 17754 Problem Bipolar II disorder F31.81 Active 18006665 ALLERGIES No Information ENCOUNTERS Encounter Location Date Diagnosis [facility] [address] [facility] [id number] [address] [place] [address] May, Screening for lipid disorder s Z13.220 [facility] [address] [facility] [id number] [address] [place] [address] May, Carpal tunnel syndrome on le ft G56.02 ; Social anxiety disorder F40.10 and Screening for lipid disorders Z13.220 [facility] [address] [facility] [id number] [address] [place] [address] Apr, Bipolar II disorder F31.81 ; Social anxiety disorder F40.10 ; ADD (attention deficit disorder) without hyperactivity F98.8 and BMI 45.0-49.9, adult Z68.42 [facility] [address] [place] [id number] [address] [place] [address] 05 Mar, 2018 [facility] [address] [place] [id number] [address] [place] [address] 17 Feb, 2018 BMI 45.0-49.9, adult Z68.42 ; Carpal tunnel syndrome on left G56.02 and Social anxiety disorder F40.10 [facility] [address] [place] [id number] [place] [address] Jan, Bipolar II disorder F31.81 ; ADD (attention deficit disorder) without hyperactivity F98.8 ; Social anxiety disorder F40.10 and Stimulant abuse F15.10 [facility] [place] [address] [place] [id number] [place] [address] Dec, Episode of recurrent major d epressive disorder, unspecified depression episode severity F33.9 ; Other chronic pain G89.29 ; Radiculopathy, lumbar region M54.16 ; Edema of lower extremity R60.0 and BMI 45.0-49.9, adult Z68.42 [place] [address] [address] Jun, [place] [address] [place] [id number] [place] [address] Jan, Joint pain M25.50 [facility] [address] [place] [id number] [place] [address] Jan, Wellness examination Z00.00 ; Pain in right knee M25.561 ; Pain in left knee M25.562 ; Edema, unspecified type R60.9 and Drug abuse counseling and surveillance of drug abuser Z71.51 [facility] [place] [address] [place] [id number] [address] [place] [address] November, [facility] [place] [address] [place] [id number] [place] [address] Oct, [place] [address] [facility] [id number] [address] [place] [address] Oct, ADD (attention deficit disor josselin) F90.0 ; Social anxiety disorder F40.10 and Manic bipolar I disorder in partial remission F31.73 [facility] [address] [id number] [address] [place] [address] 22 Aug, 2015 [facility] [address] [facility] [id number] [address] [place] [address] Aug, [facility] [address] [facility] [id number] [address] [place] [address] Aug, [facility] [address] [facility] [id number] [address] [place] [address] Jul, [facility] [address] [facility] [id number] [address] [place] [address] Jul, [facility] [address] [facility] [id number] [address] [place] [address] Jul, [facility] [address] [facility] [id number] [address] [place] [address] Jun, [facility] [address] [facility] [id number] [address] [place] [address] Jun, [facility] [address] [facility] [id number] [address] [place] [address] Jun, [facility] [address] [facility] [id number] [address] [place] [address] Jun, [facility] [address] [facility] [id number] [address] [place] [address] May, Joint pain M25.50 ; ADD (att ention deficit disorder) F90.0 ; Edema R60.9 and Insomnia G47.00 [facility] [address] [facility] [id number] [address] [place] [address] May, [facility] [address] [facility] [id number] [address] [place] [address] May, [facility] [address] [facility] [id number] [address] [place] [address] May, [facility] [address] [facility] [id number] [address] [place] [address] May, Left wrist pain M25.532 ; Si nusitis J32.9 and Drug abuse counseling and surveillance of drug abuser Z71.51 [facility] [address] [id number] [address] [place] [address] Apr, [facility] [address] [facility] [id number] [address] [place] [address] Apr, [facility] [address] [facility] [id number] [address] [place] [address] Apr, [facility] [address] [facility] [id number] [address] [place] [address] Apr, [facility] [address] [facility] [id number] [address] [place] [address] Apr, [facility] [address] [facility] [id number] [address] [place] [address] Apr, [facility] [address] [facility] [id number] [address] [place] [address] Apr, [facility] [address] [facility] [id number] [address] [place] [address] Mar, Unspecified venous (peripher al) insufficiency 459.81 ; Bipolar I disorder, most recent episode (or current) manic, moderate 296.42 ; Social phobia 300.23 ; Attention deficit disorder of childhood without mention of hyperactivity 314.00 ; Pain in joint, lower leg 719.46 ; Thrombosis 453.9 and Chronic pain 338.29 [facility] [address] [facility] [id number] [address] [place] [address] Mar, [facility] [address] [facility] [id number] [address] [place] [address] Mar, [facility] [address] [facility] [id number] [address] [place] [address] 18 Mar, 2015 [facility] [address] [facility] [id number] [address] [place] [address] Mar, [facility] [address] [facility] [id number] [address] [place] [address] Mar, [facility] [address] [facility] [id number] [address] [place] [address] Mar, [facility] [address] [facility] [id number] [address] [place] [address] 10 Mar, 2015 Manic bipolar I disorder in partial remission 296.45 ; Social phobia 300.23 and Attention deficit disorder of childhood without mention of hyperactivity 314.00 [facility] [address] [facility] [id number] [address] [place] [address] Mar, [facility] [address] [facility] [id number] [address] [place] [address] Feb, [facility] [address] [facility] [id number] [address] [place] [address] Feb, Thrombosis 453.9 ; Unspecifi ed venous (peripheral) insufficiency 459.81 ; Bipolar I disorder, most recent episode (or current) manic, moderate 296.42 ; Social phobia 300.23 ; Attention deficit disorder of childhood without mention of hyperactivity 314.00 ; Pain in joint, lower leg 719.46 and Edema 782.3 [facility] [address] [facility] [id number] [address] [place] [address] Feb, [facility] [address] [facility] [id number] [address] [place] [address] Feb, Social phobia 300.23 ; Atten tion deficit disorder of childhood without mention of hyperactivity 314.00 and Bipolar I disorder, most recent episode manic, in partial remission 296.45 [facility] [address] [facility] [id number] [address] [place] [address] Jan, [facility] [address] [place] [id number] [address] [place] [address] Jan, [facility] [address] [facility] [id number] [address] [place] [address] Jan, Unspecified venous (peripher al) insufficiency 459.81 and Thrombophlebitis 451.9 [facility] [address] [facility] [id number] [address] [place] [address] Jan, [facility] [address] [facility] [id number] [address] [place] [address] Dec, Headache 784.0 and Back pain 724.5 [facility] [address] [place] [id number] [address] [place] [address] Dec, [facility] [address] [place] [id number] [address] [place] [address] Dec, Bipolar I disorder, most rec ent episode (or current) manic, moderate 296.42 ; Attention deficit disorder of childhood without mention of hyperactivity 314.00 and Social phobia 300.23 [facility] [address] [facility] [id number] [address] [place] [address] November, [facility] [address] [place] [id number] [address] [place] [address] November, [facility] [address] [place] [id number] [address] [place] [address] Oct, [facility] [address] [facility] [id number] [address] [place] [address] Oct, [facility] [address] [facility] [id number] [address] [place] [address] Sep, [facility] [address] [facility] [id number] [address] [place] [address] Sep, [facility] [address] [facility] [id number] [address] [place] [address] Aug, [facility] [address] [place] [id number] [address] [place] [address] Aug, 2014 [facility] [address] [id number] [address] [place] [address], [place] [address] Aug, 2014 [facility] [address] [id number] [address] [place] [address], [place] [address] Aug, 2014 [facility] [address] [id number] [address] [place] [address], [place] [address] Aug, 2014 [facility] [address] [id number] [address] [place] [address], [place] [address] Aug, [facility] [address] [id number] [address] [place] [address], [place] [address] Aug, [facility] [address] [id number] [address] [place] [address], [place] [address] Jul, [facility] [address] [id number] [address] [place] [address], [place] [address] Jul, [facility] [address] [id number] [address] [place] [address], [place] [address] Jun, [facility] [address] [id number] [address] [place] [address], [place] [address] Jun, [facility] [address] [id number] [address] [place] [address], [place] [address] May, [facility] [address] [id number] [address] [place] [address], [place] [address] May, [facility] [address] [id number] [address] [place] [address], [place] [address] May, [facility] [address] [id number] [address] [place] [address], [place] [address] May, [facility] [address] [id number] [address] [place] [address], [place] [address] May, [facility] [address] [id number] [address] [place] [address], [place] [address] May, [facility] [address] [id number] [address] [place] [address], [place] [address] Apr, [facility] [address] [id number] [address] [place] [address], [place] [address] Apr, [facility] [address] [id number] [address] [place] [address], [place] [address] Apr, [facility] [address] [id number] [address] [place] [address], [place] [address] Apr, [facility] [address] [id number] [address] [place] [address], [place] [address] 22 Mar, 2014 [facility] [address] [id number] [address] [place] [address], [place] [address] 22 Mar, 2013 [facility] [address] [id number] [address] [place] [address], [place] [address] 19 Mar, 2013 [facility] [address] [id number] [address] [place] [address], [place] [address] 16 Mar, 2013 [facility] [address] [id number] [address] [place] [address], [place] [address] 16 Mar, 2013 [facility] [address] [id number] [address] [place] [address], [place] [address] 15 Mar, 2013 [facility] [address] [id number] [address] [place] [address], [place] [address] 11 Mar, 2013 [facility] [address] [id number] [address] [place] [address], [place] [address] 11 Mar, 2013 [facility] [address] [id number] [address] [place] [address], [place] [address] 11 Mar, 2013 [facility] [address] [id number] [address] [place] [address], [place] [address] 11 Mar, 2013 [facility] [address] [id number] [address] [place] [address], [place] [address] 10 Mar, 2013 [facility] [address] [id number] [address] [place] [address], [place] [address] Mar, 2013 [facility] [address] [id number] [address] [place] [address], [place] [address] Mar, 2013 [facility] [address] [id number] [address] [place] [address], [place] [address] Mar, [facility] [address] [id number] [address] [place] [address], [place] [address] Mar, [facility] [address] [id number] [address] [place] [address], [place] [address] Feb, [facility] [address] [id number] [address] [place] [address], [place] [address] Feb, [facility] [address] [id number] [address] [place] [address], [place] [address] Feb, [facility] [address] [id number] [address] [place] [address], [place] [address] Feb, [facility] [address] [id number] [address] [place] [address], [place] [address] Feb, [facility] [address] [id number] [address] [place] [address], [place] [address] Feb, [facility] [address] [id number] [address] [place] [address], [place] [address] Feb, [facility] [address] [id number] [address] [place] [address], [place] [address] Feb, [facility] [address] [id number] [address] [place] [address], [place] [address] Feb, [facility] [address] [id number] [address] [place] [address], [place] [address] Feb, [facility] [address] [id number] [address] [place] [address], [place] [address] Feb, [facility] [address] [id number] [address] [place] [address], [place] [address] Feb, [facility] [address] [id number] [facility] [place] [address] Feb, [facility] [address] [id number] [address] [place] [address], [place] [address] Feb, [facility] [address] [id number] [address] [place] [address], [place] [address] Jan, [facility] [address] [id number] [address] [place] [address], [place] [address] Jan, [facility] [address] [id number] [address] [place] [address], [place] [address] Jan, [facility] [address] [id number] [address] [place] [address], [place] [address] Jan, [facility] [address] [id number] [address] [place] [address], [place] [address] Jan, [facility] [address] [id number] [address] [place] [address], [place] [address] Jan, [facility] [address] [id number] [address] [place] [address], [place] [address] Jan, [facility] [address] [id number] [address] [place] [address], [place] [address] Dec, [facility] [address] [id number] [address] [place] [address], [place] [address] Dec, [facility] [address] [id number] [address] [place] [address], [place] [address] Dec, [facility] [address] [id number] [address] [place] [address], [place] [address] Dec, [facility] [address] [id number] [address] [place] [address], [place] [address] Dec, [facility] [address] [id number] [address] [place] [address], [place] [address] Dec, [facility] [address] [id number] [address] [place] [address], [place] [address] Dec, [facility] [address] [id number] [address] [place] [address], [place] [address] Dec, [facility] [address] [id number] [address] [place] [address], [place] [address] Dec, [facility] [address] [id number] [address] [place] [address], [place] [address] November, [facility] [address] [id number] [address] [place] [address], [place] [address] November, [facility] [address] [id number] [address] [place] [address], [place] [address] November, [facility] [address] [id number] [address] [place] [address], [place] [address] November, [facility] [address] [id number] [address] [place] [address], [place] [address] November, [facility] [address] [id number] [address] [place] [address], [place] [address] November, [facility] [address] [id number] [address] [place] [address], [place] [address] November, [facility] [address] [id number] [address] [place] [address], [place] [address] November, [facility] [address] [id number] [address] [place] [address], [place] [address] November, [facility] [address] [id number] [address] [place] [address], [place] [address] November, [facility] [address] [id number] [address] [place] [address], [place] [address] November, [facility] [address] [id number] [address] [place] [address], [place] [address] November, [facility] [address] [id number] [address] [place] [address], [place] [address] November, [facility] [address] [id number] [address] [place] [address], [place] [address] November, [facility] [address] [id number] [address] [place] [address], [place] [address] Oct, [facility] [address] [id number] [address] [place] [address], [place] [address] Oct, [facility] [address] [id number] [address] [place] [address], [place] [address] Oct, [facility] [address] [id number] [address] [place] [address], [place] [address] Oct, [facility] [address] [id number] [address] [place] [address], [place] [address] Oct, [facility] [address] [id number] [address] [place] [address], [place] [address] Oct, [facility] [address] [id number] [address] [place] [address], [place] [address] Sep, [facility] [address] [id number] [address] [place] [address], [place] [address] Sep, [facility] [address] [id number] [address] [place] [address], [place] [address] Sep, [facility] [address] [id number] [address] [place] [address], [place] [id number] Sep, [facility] [address] [id number] [address] [place] [address], [place] [address] Aug, [facility] [address] [id number] [address] [place] [address], [place] [address] Aug, [facility] [address] [id number] [address] [place] [address], [place] [address] Aug, [facility] [address] [id number] [address] [place] [address], [place] [address] Aug, [facility] [address] [id number] [address] [place] [address], [place] [address] Jul, [facility] [address] [id number] [address] [place] [address], [place] [address] Jul, [facility] [address] [id number] [address] [place] [address], [place] [address] Jul, [facility] [address] [id number] [address] [place] [address], [place] [address] Jul, [facility] [address] [id number] [address] [place] [address], [place] [address] Jul, [facility] [address] [id number] [address] [place] [address], [place] [address] Jul, [facility] [address] [id number] [address] [place] [address], [place] [address] Jul, [facility] [address] [id number] [address] [place] [address], [place] [address] Jun, [facility] [address] [id number] [address] [place] [address], [place] [address] Jun, [facility] [address] [address] [id number] [address] [place] [address], [place] [address] Jun, [facility] [address] [id number] [address] [place] [address], [place] [address] 17 Jun, 2013 [facility] [address] [id number] [address] [place] [address], [place] [address] Jun, [facility] [address] [id number] [address] [place] [address], [place] [address] Jun, [facility] [address] [id number] [address] [place] [address], [place] [address] May, [facility] [address] [id number] [address] [place] [address], [place] [address] 07 May, 2013 [facility] [address] [id number] [address] [place] [address], [place] [address] 15 Apr, 2013 [facility] [address] [id number] [address] [place] [address], [place] [address] 15 Apr, 2013 [facility] [address] [id number] [address] [place] [address], [place] [address] Apr, [facility] [address] [id number] [address] [place] [address], [place] [address] Apr, [facility] [address] [id number] [address] [place] [address], [place] [address] 08 Apr, 2013 [facility] [address] [id number] [address] [place] [address], [place] [address] 24 Mar, 2013 [facility] [address] [id number] [address] [place] [address], [place] [address] Mar, [facility] [address] [id number] [address] [place] [address], [place] [address] Mar, [facility] [address] [id number] [address] [place] [address], [place] [address] Mar, [facility] [address] [id number] [address] [place] [address], [place] [address] Feb, [facility] [address] [id number] [address] [place] [address], [place] [address] Feb, [facility] [address] [id number] [address] [place] [address], [place] [address] Jan, [facility] [address] [id number] [address] [place] [address], [place] [address] Jan, [facility] [address] [id number] [address] [place] [address], [place] [address] Jan, [facility] [address] [id number] [address] [place] [address], [place] [address] Jan, [facility] [address] [id number] [address] [place] [address], [place] [address] Dec, [facility] [address] [id number] [address] [place] [address], [place] [address] Dec, [facility] [address] [id number] [address] [place] [address], [place] [address] 07 Dec, 2012 [facility] [address] [id number] [address] [place] [address], [place] [address] 06 Dec, 2012 [facility] [address] [id number] [address] [place] [address], [place] [address] 16 Nov, 2012 [facility] [address] [id number] [address] [place] [address], [place] [address] November, [facility] [address] [id number] [address] [place] [address], [place] [address] Oct, [facility] [address] [id number] [address] [place] [address], [place] [address] Sep, [facility] [address] [id number] [address] [place] [address], [place] [address] 08 Sep, 2012 [facility] [address] [id number] [address] [place] [address], [place] [address] 14 Aug, 2012 [facility] [address] [id number] [address] [place] [address], [place] [address] 13 Aug, 2012 [facility] [address] [id number] [address] [place] [address], [place] [address] Jul, [facility] [address] [id number] [address] [place] [address], [place] [address] Jul, [facility] [address] [id number] [address] [place] [address], [place] [address] Jul, [facility] [address] [id number] [address] [place] [address], [place] [address] Jun, [facility] [address] [id number] [address] [place] [address], [place] [address] Jun, [facility] [address] [id number] [address] [place] [address], [place] [address] Jun, [facility] [address] [id number] [address] [place] [address], [place] [address] Jun, [facility] [address] [id number] [address] [place] [address], [place] [address] May, [facility] [address] [id number] [address] [place] [address], [place] [address] May, [facility] [address] [id number] [address] [place] [address], [place] [address] May, [facility] [address] [id number] [address] [place] [address], [place] [address] May, [facility] [address] [id number] [address] [place] [address], [place] [address] May, [facility] [address] [id number] [address] [place] [address], [place] [address] May, [facility] [address] [id number] [address] [place] [address], [place] [address] May, [facility] [address] [id number] [address] [place] [address] 15 Apr, 2012 [facility] [address] [id number] [address] [place] [address], [place] [address] Apr, [facility] [address] [id number] [address] [place] [address] Apr, [facility] [address] [id number] [address] [place] [address] Apr, [facility] [address] [id number] [address] [place] [address] Apr, [facility] [address] [id number] [address] [place] [address] Apr, [facility] [address] [id number] [address] [place] [address] Apr, [facility] [address] [id number] [address] [place] [address] Apr, [facility] [address] [id number] [address] [place] [address], [place] [address] Jan, [facility] [address] [id number] [address] [place] [address], [place] [address] Jan, [facility] [address] [id number] [address] [place] [address], [place] [address] Dec, [facility] [address] [id number] [address] [place] [address], [place] [address] November, [facility] [address] [id number] [address] [place] [address], [place] [address] Oct, [facility] [address] [id number] [address] [place] [address], [place] [address] Oct, [facility] [address] [id number] [address] [place] [address], [place] [address] Oct, [facility] [address] [id number] [address] [place] [address], [place] [address] Oct, [facility] [address] [id number] [address] [place] [address], [place] [address] Sep, [facility] [address] [id number] [address] [place] [address], [place] [address] Sep, [facility] [address] [id number] [address] [place] [address], [place] [address] Sep, [facility] [address] [id number] [address] [place] [address], [place] [address] Jun, [facility] [address] [id number] [address] [place] [address], [place] [address] Jun, [facility] [address] [id number] [address] [place] [address], [place] [address] May, [facility] [address] [id number] [address] [place] [address], [place] [address] 14 Jan, 2011 [facility] [address] [id number] [address] [place] [address], [place] [address] November, [facility] [address] [id number] [address] [place] [address] 14 Oct, 2010 [facility] [address] [id number] [address] [place] [address] 16 Sep, 2010 [facility] [address] [id number] [address] [place] [address] 30 May, 2010 [facility] [address] [id number] [address] [place] [address] Jul, [facility] [address] [id number] [address] [place] [address] Jun, [facility] [address] [id number] [address] [place] [address] Jun, [facility] [address] [id number] [address] [place] [address] Jun, [facility] [address] [id number] [address] [place] [address] Jun, [facility] [address] [id number] [address] [place] [address] May, [facility] [address] [id number] [address] [place] [address] May, [facility] [address] [id number] [address] [place] [address] Apr, [facility] [address] [id number] [address] [place] [address] Apr, [facility] [address] [id number] [address] [place] [address] Apr, IMMUNIZATIONS No Known Immunizations SOCIAL HISTORY Never Assessed REASON FOR VISIT EMR-[facility] PLAN OF CARE VITAL SIGNS [...] right 06/1996 Surgical History multiple knee injections ([id number]) Surgical History left knee replacement 06/11 Hospitalization History Knee surgery- x 3 days 06/11
--- OUTSIDE RECORDS SUMMARY | 2019-12-16 20:36 | XMS REPORT ---
Author Author Patti Guzman Doctor Organization [facility] Address Unknown Phone Unavailable Care Team Providers Care Ramp Service Agent Name Role Phone Migration, Doctor Unavailable Unavailable PROBLEMS Type Condition ICD9-CM Code FGA24-MS Code Onset Dates Condition S tatus SNOMED Code Problem Drug abuse counseling and surveillance of drug abuser Z71.51 Active 532919268 Problem Joint pain M25.50 Active 34554075 Problem ADD (attention deficit disorder) F90.0 Active 251846728 Problem Manic bipolar I disorder in partial remission F31. 73 Active 05741580 Problem Edema, unspecified type R60.9 Active 718456990 Problem Episode of recurrent major d epressive disorder, unspecified depression episode severity F33.9 Active 462150514 Problem ADD (attention deficit disorder) without hyperactivity F98.8 Active 07237873 Problem Social anxiety disorder F40.10 Active 96396774 Problem Carpal tunnel syndrome on left G56.02 Active [id number] Problem Insomnia G47.00 Active 925418761 Problem Venous insufficiency (chronic) (peripheral) I87.2 Active [id number] Problem Other chronic pain G89.29 Active 8 4932526 Problem Stimulant abuse F15.10 Active 4415 29741 Problem Bipolar II disorder F31.81 Active 59039800 ALLERGIES No Information ENCOUNTERS Encounter Location Date Diagnosis [place] [id number] [facility] [id number] [address] [place] [address] Oct, [facility] [address] [facility] [id number] [address] [place] [address] May, Screening for lipid disorder s Z13.220 [facility] [address] [place] [id number] [address] [place] [address] May, Carpal tunnel syndrome on le ft G56.02 ; Social anxiety disorder F40.10 and Screening for lipid disorders Z13.220 [facility] [address] [facility] [id number] [address] [place] [address] Apr, Bipolar II disorder F31.81 ; Social anxiety disorder F40.10 ; ADD (attention deficit disorder) without hyperactivity F98.8 and BMI 45.0-49.9, adult Z68.42 [place] [address] [facility] [id number] [address] [place] [address] Mar, [place] [address] [facility] [id number] [address] [place] [address] 17 Feb, 2018 BMI 45.0-49.9, adult Z68.42 ; Carpal tunnel syndrome on left G56.02 and Social anxiety disorder F40.10 [place] [address] [facility] [id number] [address] [place] [address] Jan, Bipolar II disorder F31.81 ; ADD (attention deficit disorder) without hyperactivity F98.8 ; Social anxiety disorder F40.10 and Stimulant abuse F15.10 [place] [address] [place] [id number] [place] [address] Dec, Episode of recurrent major d epressive disorder, unspecified depression episode severity F33.9 ; Other chronic pain G89.29 ; Radiculopathy, lumbar region M54.16 ; Edema of lower extremity R60.0 and BMI 45.0-49.9, adult Z68.42 [place] [address] [place] [id number] [address] [place] [address] Jun, [place] [address] [place] [id number] [address] [place] [address] Jan, Joint pain M25.50 [place] [address] [place] [id number] [address] [place] [address] Jan, Wellness examination Z00.00 ; Pain in right knee M25.561 ; Pain in left knee M25.562 ; Edema, unspecified type R60.9 and Drug abuse counseling and surveillance of drug abuser Z71.51 [place] [address] [place] [id number] [address] [place] [address] November, [place] [address] [facility] [id number] [address] [place] [address] Oct, [facility] [address] [facility] [id number] [address] [place] [address] Oct, ADD (attention deficit disor josselin) F90.0 ; Social anxiety disorder F40.10 and Manic bipolar I disorder in partial remission F31.73 [facility] [address] [facility] [id number] [address] [place] [address] Aug, [facility] [address] [facility] [id number] [address] [place] [address] Aug, [facility] [address] [facility] [id number] [address] [place] [address] Aug, [facility] [address] [place] [id number] [address] [place] [address] Jul, [facility] [address] [facility] [id number] [address] [place] [address] Jul, [facility] [address] [facility] [id number] [address] [place] [address] Jul, [facility] [address] [place] [id number] [address] [place] [address] Jun, [facility] [address] [place] [id number] [address] [place] [address] Jun, [facility] [address] [facility] [id number] [address] [place] [address] Jun, [facility] [address] [facility] [id number] [address] [place] [address] Jun, [facility] [address] [place] [id number] [address] [place] [address] May, Joint pain M25.50 ; ADD (att ention deficit disorder) F90.0 ; Edema R60.9 and Insomnia G47.00 [facility] [address] [facility] [id number] [address] [place] [address] May, [facility] [address] [facility] [id number] [address] [place] [address] May, [facility] [address] [facility] [id number] [address] [place] [address] May, [facility] [address] [facility] [id number] [address] [place] [address] May, Left wrist pain M25.532 ; Si nusitis J32.9 and Drug abuse counseling and surveillance of drug abuser Z71.51 [facility] [address] [facility] [id number] [address] [place] [address] Apr, [facility] [address] [facility] [id number] [address] [place] [address] Apr, [facility] [address] [facility] [id number] [address] [place] [address] Apr, [facility] [address] [facility] [id number] [address] [place] [address] Apr, [facility] [address] [facility] [id number] [address] [place] [address] Apr, [facility] [address] [facility] [id number] [address] [place] [address] Apr, [facility] [address] [facility] [id number] [address] [place] [address] Apr, [facility] [address] [facility] [id number] [address] [place] [address] Mar, Unspecified venous (peripher al) insufficiency 459.81 ; Bipolar I disorder, most recent episode (or current) manic, moderate 296.42 ; Social phobia 300.23 ; Attention deficit disorder of childhood without mention of hyperactivity 314.00 ; Pain in joint, lower leg 719.46 ; Thrombosis 453.9 and Chronic pain 338.29 [facility] [address] [facility] [id number] [address] [place] [address] Mar, [facility] [address] [id number] [address] [place] [address] 18 Mar, 2015 [facility] [address] [id number] [address] [place] [address] 18 Mar, 2015 [facility] [address] [facility] [id number] [address] [place] [address] Mar, [facility] [address] [facility] [id number] [address] [place] [address] Mar, [facility] [address] [facility] [id number] [address] [place] [address] Mar, [facility] [address] [facility] [id number] [address] [place] [address] Mar, Manic bipolar I disorder in partial remission 296.45 ; Social phobia 300.23 and Attention deficit disorder of childhood without mention of hyperactivity 314.00 [facility] [address] [facility] [id number] [address] [place] [address] Mar, [facility] [address] [facility] [id number] [address] [place] [address] Feb, [facility] [address] [facility] [id number] [address] [place] [address] Feb, Thrombosis 453.9 ; Unspecifi ed venous (peripheral) insufficiency 459.81 ; Bipolar I disorder, most recent episode (or current) manic, moderate 296.42 ; Social phobia 300.23 ; Attention deficit disorder of childhood without mention of hyperactivity 314.00 ; Pain in joint, lower leg 719.46 and Edema 782.3 [facility] [address] [facility] [id number] [address] [place] [address] Feb, [facility] [address] [facility] [id number] [address] [place] [address] Feb, Social phobia 300.23 ; Atten tion deficit disorder of childhood without mention of hyperactivity 314.00 and Bipolar I disorder, most recent episode manic, in partial remission 296.45 [facility] [address] [facility] [id number] [address] [place] [address] Jan, [facility] [address] [facility] [id number] [address] [place] [address] Jan, [facility] [address] [facility] [id number] [address] [place] [address] Jan, Unspecified venous (peripher al) insufficiency 459.81 and Thrombophlebitis 451.9 [facility] [address] [place] [id number] [address] [place] [address] Jan, [facility] [address] [facility] [id number] [address] [place] [address] Dec, Headache 784.0 and Back pain 724.5 [facility] [address] [place] [id number] [address] [place] [address] Dec, [facility] [address] [place] [id number] [place] [address] Dec, Bipolar I disorder, most rec ent episode (or current) manic, moderate 296.42 ; Attention deficit disorder of childhood without mention of hyperactivity 314.00 and Social phobia 300.23 [facility] [address] [place] [id number] [address] [place] [address] November, [facility] [address] [place] [id number] [address] [place] [address] November, [facility] [address] [facility] [id number] [address] [place] [address] Oct, [facility] [address] [place] [id number] [address] [place] [address] Oct, [facility] [address] [place] [id number] [address] [place] [address] Sep, [facility] [address] [place] [id number] [address] [place] [address] Sep, [facility] [address] [place] [id number] [address] [place] [address] Aug, 2014 [facility] [address] [id number] [address] [place] [address], [place] [address] Aug, 2014 [facility] [address] [id number] [address] [place] [address], [place] [address] Aug, 2014 [facility] [address] [id number] [address] [place] [address], [place] [address] Aug, 2014 [facility] [address] [id number] [address] [place] [address], [place] [address] Aug, 2014 [facility] [address] [id number] [address] [place] [address], [place] [address] Aug, [facility] [address] [id number] [address] [place] [address], [place] [address] Aug, [facility] [address] [id number] [address] [place] [address], [place] [address] Jul, [facility] [address] [id number] [address] [place] [address], [place] [address] Jul, [facility] [address] [id number] [address] [place] [address], [place] [address] Jun, [facility] [address] [id number] [address] [place] [address], [place] [address] Jun, [facility] [address] [id number] [address] [place] [address], [place] [address] May, [facility] [address] [id number] [address] [place] [address], [place] [address] May, [facility] [address] [id number] [address] [place] [address], [place] [address] May, [facility] [address] [id number] [address] [place] [address], [place] [address] May, [facility] [address] [id number] [address] [place] [address] May, [facility] [address] [id number] [address] [place] [address], [place] [address] May, [facility] [address] [id number] [address] [place] [address], [place] [address] Apr, [facility] [address] [id number] [address] [place] [address], [place] [address] Apr, [facility] [address] [id number] [address] [place] [address], [place] [address] Apr, [facility] [address] [id number] [address] [place] [address], [place] [address] Apr, [facility] [address] [id number] [address] [place] [address], [place] [address] 22 Mar, 2014 [facility] [address] [id number] [address] [place] [address], [place] [address] 22 Mar, 2014 [facility] [address] [id number] [address] [place] [address], [place] [address] 19 Mar, 2013 [facility] [address] [id number] [address] [place] [address], [place] [address] 16 Mar, 2013 [facility] [address] [id number] [address] [place] [address], [place] [address] 16 Mar, 2013 [facility] [address] [id number] [address] [place] [address], [place] [address] 15 Mar, 2013 [facility] [address] [id number] [address] [place] [address], [place] [address] 11 Sep, 2013 [facility] [address] [id number] [address] [place] [address], [place] [address] 11 Sep, 2013 [facility] [address] [id number] [address] [place] [address], [place] [address] 11 Sep, 2013 [facility] [address] [id number] [address] [place] [address], [place] [address] 11 Mar, 2013 [facility] [address] [id number] [address] [place] [address], [place] [address] Mar, 2013 [facility] [address] [id number] [address] [place] [address], [place] [address] Mar, 2013 [facility] [address] [id number] [address] [place] [address], [place] [address] Mar, [facility] [address] [id number] [address] [place] [address], [place] [address] Mar, [facility] [address] [id number] [address] [place] [address], [place] [address] Mar, [facility] [address] [id number] [address] [place] [address], [place] [address] Feb, [facility] [address] [id number] [address] [place] [address], [place] [address] Feb, [facility] [address] [id number] [address] [place] [address], [place] [address] Feb, [facility] [address] [id number] [address] [place] [address], [place] [address] Feb, [facility] [address] [id number] [address] [place] [address], [place] [address] Feb, [facility] [address] [id number] [address] [place] [address], [place] [address] Feb, [facility] [address] [id number] [address] [place] [address], [place] [address] Feb, [facility] [address] [id number] [address] [place] [address], [place] [address] Feb, [facility] [address] [id number] [address] [place] [address], [place] [address] Feb, [facility] [address] [id number] [address] [place] [address], [place] [address] Feb, [facility] [address] [id number] [address] [place] [address], [place] [address] Feb, [facility] [address] [id number] [address] [place] [address], [place] [address] Feb, [facility] [address] [id number] [address] [place] [address], [place] [address] Feb, [facility] [address] [id number] [address] [place] [address], [place] [address] Feb, [facility] [address] [id number] [address] [place] [address], [place] [address] Jan, [facility] [address] [id number] [address] [place] [address], [place] [address] Jan, [facility] [address] [id number] [address] [place] [address], [place] [address] Jan, [facility] [address] [id number] [address] [place] [address], [place] [address] Jan, [facility] [address] [id number] [address] [place] [address], [place] [address] Jan, [facility] [address] [id number] [address] [place] [address], [place] [address] Jan, [facility] [address] [id number] [address] [place] [address], [place] [address] Jan, [facility] [address] [id number] [address] [place] [address], [place] [address] Dec, [facility] [address] [id number] [address] [place] [address], [place] [address] Dec, [facility] [address] [id number] [address] [place] [address], [place] [address] Dec, [facility] [address] [id number] [address] [place] [address], [place] [address] Dec, [facility] [address] [id number] [address] [place] [address], [place] [address] Dec, [facility] [address] [id number] [address] [place] [address], [place] [address] Dec, [facility] [address] [id number] [facility] [place] [address] Dec, [facility] [address] [id number] [address] [place] [address], [place] [address] Dec, [facility] [address] [id number] [address] [place] [address], [place] [address] Dec, [facility] [address] [id number] [address] [place] [address], [place] [address] November, [facility] [address] [id number] [address] [place] [address], [place] [address] November, [facility] [address] [id number] [address] [place] [address], [place] [address] November, [facility] [address] [id number] [address] [place] [address], [place] [address] November, [facility] [address] [id number] [address] [place] [address], [place] [address] November, [facility] [address] [id number] [address] [place] [address], [place] [address] November, [facility] [address] [id number] [address] [place] [address], [place] [address] November, [facility] [address] [id number] [address] [place] [address], [place] [address] November, [facility] [address] [id number] [address] [place] [address], [place] [address] November, [facility] [address] [id number] [address] [place] [address], [place] [address] November, [facility] [address] [id number] [address] [place] [address], [place] [address] November, [facility] [address] [id number] [address] [place] [address], [place] [address] November, [facility] [address] [id number] [address] [place] [address], [place] [address] November, [facility] [address] [id number] [address] [place] [address], [place] [address] November, [facility] [address] [id number] [address] [place] [address], [place] [address] Oct, [facility] [address] [id number] [address] [place] [address], [place] [address] Oct, [facility] [address] [id number] [address] [place] [address], [place] [address] Oct, [facility] [address] [id number] [address] [place] [address], [place] [address] Oct, [facility] [address] [id number] [address] [place] [address], [place] [address] Oct, [facility] [address] [id number] [address] [place] [address], [place] [address] Oct, [facility] [address] [id number] [address] [place] [address], [place] [address] Sep, [facility] [address] [id number] [address] [place] [address], [place] [address] Sep, [facility] [address] [id number] [address] [place] [address], [place] [address] Sep, [facility] [address] [id number] [address] [place] [address], [place] [address] Sep, [facility] [address] [id number] [address] [place] [address], [place] [address] Aug, [facility] [address] [id number] [address] [place] [address], [place] [address] Aug, [facility] [address] [id number] [address] [place] [address], [place] [address] Aug, [facility] [address] [id number] [address] [place] [address], [place] [address] Aug, [facility] [address] [id number] [address] [place] [address], [place] [address] Jul, [facility] [address] [id number] [address] [place] [address], [place] [address] Jul, [facility] [address] [id number] [address] [place] [address], [place] [address] Jul, [facility] [address] [id number] [address] [place] [address], [place] [address] Jul, [facility] [address] [id number] [address] [place] [address], [place] [address] Jul, [facility] [address] [id number] [address] [place] [address], [place] [address] Jul, [facility] [address] [id number] [address] [place] [address], [place] [address] Jul, [facility] [address] [id number] [address] [place] [address], [place] [address] Jun, [facility] [address] [id number] [address] [place] [address], [place] [address] Jun, [facility] [address] [id number] [address] [place] [address], [place] [address] Jun, [facility] [address] [id number] [address] [place] [address], [place] [address] 17 Jun, 2013 [facility] [address] [id number] [address] [place] [address], [place] [address] Jun, [facility] [address] [id number] [address] [place] [address], [place] [address] Jun, [facility] [address] [id number] [address] [place] [address], [place] [address] May, [facility] [address] [id number] [address] [place] [address], [place] [address] May, [facility] [address] [id number] [address] [place] [address], [place] [address] 15 Apr, 2013 [facility] [address] [id number] [address] [place] [address], [place] [address] 15 Apr, 2013 [facility] [address] [id number] [address] [place] [address], [place] [address] 10 Apr, 2013 [facility] [address] [id number] [address] [place] [address], [place] [address] 10 Apr, 2013 [facility] [address] [id number] [address] [place] [address], [place] [address] 08 Apr, 2013 [facility] [address] [id number] [address] [place] [address], [place] [address] 24 Mar, 2013 [facility] [address] [id number] [address] [place] [address], [place] [address] 19 Mar, 2013 [facility] [address] [id number] [address] [place] [address], [place] [address] Mar, [facility] [address] [id number] [address] [place] [address], [place] [address] Mar, [facility] [address] [id number] [address] [place] [address], [place] [address] Feb, [facility] [address] [id number] [address] [place] [address], [place] [address] Feb, [facility] [address] [id number] [address] [place] [address], [place] [address] Jan, [facility] [address] [id number] [address] [place] [address], [place] [address] Jan, [facility] [address] [id number] [address] [place] [address], [place] [address] Jan, [facility] [address] [id number] [address] [place] [address], [place] [address] Jan, [facility] [address] [id number] [address] [place] [address], [place] [address] Dec, [facility] [address] [id number] [address] [place] [address], [place] [address] 15 Dec, 2012 [facility] [address] [id number] [address] [place] [address], [place] [address] 07 Dec, 2012 [facility] [address] [id number] [address] [place] [address], [place] [address] 06 Dec, 2012 [facility] [address] [id number] [address] [place] [address], [place] [address] 16 Nov, 2012 [facility] [address] [id number] [address] [place] [address], [place] [address] November, [facility] [address] [id number] [address] [place] [address], [place] [address] Oct, [facility] [address] [id number] [address] [place] [address], [place] [address] Sep, [facility] [address] [id number] [address] [place] [address], [place] [address] Sep, [facility] [address] [id number] [address] [place] [address], [place] [address] 14 Aug, 2012 [facility] [address] [id number] [address] [place] [address], [place] [address] Aug, [facility] [address] [id number] [address] [place] [address], [place] [address] Jul, [facility] [address] [id number] [address] [place] [address], [place] [address] Jul, [facility] [address] [id number] [address] [place] [address], [place] [address] Jul, [facility] [address] [id number] [address] [place] [address], [place] [address] Jun, [facility] [address] [id number] [address] [place] [address], [place] [address] Jun, [facility] [address] [id number] [address] [place] [address], [place] [address] Jun, [facility] [address] [id number] [address] [place] [address], [place] [address] 15 Jun, 2012 [facility] [address] [id number] [address] [place] [address], [place] [address] May, [facility] [address] [id number] [address] [place] [address], [place] [address] May, [facility] [address] [id number] [address] [place] [address], [place] [address] May, [facility] [address] [id number] [address] [place] [address], [place] [address] May, [facility] [address] [id number] [address] [place] [address], [place] [address] May, [facility] [address] [id number] [address] [place] [address], [place] [address] May, [facility] [address] [id number] [address] [place] [address] May, [facility] [address] [id number] [address] [place] [address], [place] [address] 15 Apr, 2012 [facility] [address] [id number] [address] [place] [address] 15 Apr, 2012 [facility] [address] [id number] [address] [place] [address] 15 Apr, 2012 [facility] [address] [id number] [address] [place] [address] Apr, [facility] [address] [id number] [address] [place] [address], [place] [address] Apr, [facility] [address] [id number] [address] [place] [address] Apr, [facility] [address] [id number] [address] [place] [address] Apr, [facility] [address] [id number] [address] [place] [address], [place] [address] Apr, [facility] [address] [id number] [address] [place] [address], [place] [address] Jan, [facility] [address] [id number] [address] [place] [address], [place] [address] Jan, [facility] [address] [id number] [address] [place] [address], [place] [address] Dec, [facility] [address] [id number] [address] [place] [address], [place] [address] November, [facility] [address] [id number] [address] [place] [address], [place] [address] Oct, [facility] [address] [id number] [address] [place] [address], [place] [address] Oct, [facility] [address] [id number] [address] [place] [address], [place] [address] Oct, [facility] [address] [id number] [address] [place] [address], [place] [address] Oct, [facility] [address] [id number] [address] [place] [address], [place] [address] Sep, [facility] [address] [id number] [address] [place] [address], [place] [address] Sep, [facility] [address] [id number] [address] [place] [address], [place] [address] Sep, [facility] [address] [id number] [address] [place] [address], [place] [address] Jun, [facility] [address] [id number] [address] [place] [address], [place] [address] Jun, [facility] [address] [id number] [address] [place] [address], [place] [address] May, [facility] [address] [id number] [address] [place] [address], [place] [address] 14 Jan, 2011 [facility] [address] [id number] [address] [place] [address] November, [facility] [address] [id number] [address] [place] [address] 14 Oct, 2010 [facility] [address] [id number] [address] [place] [address] 16 Sep, 2010 [facility] [address] [id number] [address] [place] [address] 30 May, 2010 [facility] [address] [id number] [address] [place] [address] Jul, [facility] [address] [id number] [address] [place] [address] Jun, [facility] [address] [id number] [address] [place] [address] Jun, [facility] [address] [id number] [address] [place] [address] Jun, [facility] [address] [id number] [address] [place] [address] Jun, [facility] [address] [id number] [address] [place] [address] May, [facility] [address] [id number] [address] [place] [address] May, [facility] [address] [id number] [address] [place] [address] Apr, [facility] [address] [id number] [address] [place] [address] Apr, [facility] [address] [id number] [address] [place] [address] Apr, IMMUNIZATIONS No Known Immunizations SOCIAL HISTORY Never Assessed [place] [place] VITAL SIGNS [...] right 06/1996 Surgical History multiple knee injections ([id number]) Surgical History left knee replacement 06/11 Hospitalization History Knee surgery- x 3 days 06/11
--- OUTSIDE RECORDS SUMMARY | 2019-12-16 20:36 | XMS REPORT ---
Author Author Patti Guzman Doctor Organization [facility] Address Unknown Phone Unavailable Care Team Providers Care Medical Office Receptionist Assistant Name Role Phone Migration, Doctor Unavailable Unavailable PROBLEMS Type Condition ICD9-CM Code [id number] Code Onset Dates Condition S tatus SNOMED Code Problem Drug abuse counseling and surveillance of drug abuser Z71.51 Active 206333460 Problem Joint pain M25.50 Active 60523458 Problem ADD (attention deficit disorder) F90.0 Active 279253577 Problem Manic bipolar I disorder in partial remission F31. 73 Active 79369583 Problem Edema, unspecified type R60.9 Active 339983685 Problem Episode of recurrent major d epressive disorder, unspecified depression episode severity F33.9 Active 024335917 Problem ADD (attention deficit disorder) without hyperactivity F98.8 Active 67143512 Problem Social anxiety disorder F40.10 Active 81633465 Problem Carpal tunnel syndrome on left G56.02 Active [id number] Problem Insomnia G47.00 Active 173514158 Problem Venous insufficiency (chronic) (peripheral) I87.2 Active [id number] Problem Other chronic pain G89.29 Active 8 2075310 Problem Stimulant abuse F15.10 Active 4415 99645 Problem Bipolar II disorder F31.81 Active 75119055 ALLERGIES No Information ENCOUNTERS Encounter Location Date Diagnosis [place] [id number] [facility] [id number] [address] [place] [address] Oct, [facility] [address] [facility] [id number] [address] [place] [address] May, Screening for lipid disorder s Z13.220 [facility] [address] [place] [id number] [address] [place] [address] May, Carpal tunnel syndrome on le ft G56.02 ; Social anxiety disorder F40.10 and Screening for lipid disorders Z13.220 [place] [address] [facility] [id number] [address] [place] [address] Apr, Bipolar II disorder F31.81 ; Social anxiety disorder F40.10 ; ADD (attention deficit disorder) without hyperactivity F98.8 and BMI 45.0-49.9, adult Z68.42 [place] [address] [facility] [id number] [address] [place] [address] Mar, [place] [address] [facility] [id number] [address] [place] [address] 17 Feb, 2018 BMI 45.0-49.9, adult Z68.42 ; Carpal tunnel syndrome on left G56.02 and Social anxiety disorder F40.10 [place] [address] [facility] [id number] [address] [place] [address] Jan, Bipolar II disorder F31.81 ; ADD (attention deficit disorder) without hyperactivity F98.8 ; Social anxiety disorder F40.10 and Stimulant abuse F15.10 [place] [address] [place] [id number] [place] [address] Dec, Episode of recurrent major d epressive disorder, unspecified depression episode severity F33.9 ; Other chronic pain G89.29 ; Radiculopathy, lumbar region M54.16 ; Edema of lower extremity R60.0 and BMI 45.0-49.9, adult Z68.42 [place] [address] [place] [id number] [address] [place] [address] Jun, [place] [address] [place] [id number] [address] [place] [address] Jan, Joint pain M25.50 [place] [address] [place] [id number] [address] [place] [address] Jan, Wellness examination Z00.00 ; Pain in right knee M25.561 ; Pain in left knee M25.562 ; Edema, unspecified type R60.9 and Drug abuse counseling and surveillance of drug abuser Z71.51 [place] [address] [place] [id number] [address] [place] [address] November, [place] [address] [facility] [id number] [address] [place] [address] Oct, [facility] [address] [facility] [id number] [address] [place] [address] Oct, ADD (attention deficit disor josselin) F90.0 ; Social anxiety disorder F40.10 and Manic bipolar I disorder in partial remission F31.73 [facility] [address] [facility] [id number] [address] [place] [address] Aug, [facility] [address] [facility] [id number] [address] [place] [address] Aug, [facility] [address] [facility] [id number] [address] [place] [address] Aug, [facility] [address] [place] [id number] [place] [address] Jul, [facility] [address] [facility] [id number] [address] [place] [address] Jul, [facility] [address] [facility] [id number] [address] [place] [address] Jul, [facility] [address] [place] [id number] [place] [address] Jun, [facility] [address] [place] [id number] [place] [address] Jun, [facility] [address] [facility] [id number] [address] [place] [address] Jun, [facility] [address] [facility] [id number] [address] [place] [address] Jun, [facility] [address] [place] [id number] [place] [address] May, Joint pain M25.50 ; ADD (att ention deficit disorder) F90.0 ; Edema R60.9 and Insomnia G47.00 [facility] [address] [facility] [id number] [address] [place] [address] May, [facility] [address] [facility] [id number] [address] [place] [address] May, [facility] [address] [facility] [id number] [address] [place] [address] May, [facility] [address] [facility] [id number] [address] [place] [address] May, Left wrist pain M25.532 ; Si nusitis J32.9 and Drug abuse counseling and surveillance of drug abuser Z71.51 [facility] [address] [facility] [id number] [address] [place] [address] Apr, [facility] [address] [facility] [id number] [address] [place] [address] Apr, [facility] [address] [facility] [id number] [address] [place] [address] Apr, [facility] [address] [facility] [id number] [address] [place] [address] Apr, [facility] [address] [facility] [id number] [address] [place] [address] Apr, [facility] [address] [facility] [id number] [address] [place] [address] Apr, [facility] [address] [facility] [id number] [address] [place] [address] Apr, [facility] [address] [facility] [id number] [address] [place] [address] Mar, Unspecified venous (peripher al) insufficiency 459.81 ; Bipolar I disorder, most recent episode (or current) manic, moderate 296.42 ; Social phobia 300.23 ; Attention deficit disorder of childhood without mention of hyperactivity 314.00 ; Pain in joint, lower leg 719.46 ; Thrombosis 453.9 and Chronic pain 338.29 [facility] [address] [facility] [id number] [address] [place] [address] Mar, [facility] [address] [id number] [address] [place] [address] 18 Mar, 2015 [facility] [address] [id number] [address] [place] [address] 18 Mar, 2015 [facility] [address] [facility] [id number] [address] [place] [address] Mar, [facility] [address] [facility] [id number] [address] [place] [address] Mar, [facility] [address] [facility] [id number] [address] [place] [address] Mar, [facility] [address] [facility] [id number] [address] [place] [address] Mar, Manic bipolar I disorder in partial remission 296.45 ; Social phobia 300.23 and Attention deficit disorder of childhood without mention of hyperactivity 314.00 [facility] [address] [facility] [id number] [address] [place] [address] Mar, [facility] [address] [facility] [id number] [address] [place] [address] Feb, [facility] [address] [facility] [id number] [address] [place] [address] Feb, Thrombosis 453.9 ; Unspecifi ed venous (peripheral) insufficiency 459.81 ; Bipolar I disorder, most recent episode (or current) manic, moderate 296.42 ; Social phobia 300.23 ; Attention deficit disorder of childhood without mention of hyperactivity 314.00 ; Pain in joint, lower leg 719.46 and Edema 782.3 [facility] [address] [facility] [id number] [address] [place] [address] Feb, [facility] [address] [facility] [id number] [address] [place] [address] Feb, Social phobia 300.23 ; Atten tion deficit disorder of childhood without mention of hyperactivity 314.00 and Bipolar I disorder, most recent episode manic, in partial remission 296.45 [facility] [address] [facility] [id number] [address] [place] [address] Jan, [facility] [address] [facility] [id number] [address] [place] [address] Jan, [facility] [address] [facility] [id number] [address] [place] [address] Jan, Unspecified venous (peripher al) insufficiency 459.81 and Thrombophlebitis 451.9 [facility] [address] [place] [id number] [place] [address] Jan, [facility] [address] [facility] [id number] [address] [place] [address] Dec, Headache 784.0 and Back pain 724.5 [facility] [address] [place] [id number] [place] [address] Dec, [facility] [address] [place] [id number] [place] [address] Dec, Bipolar I disorder, most rec ent episode (or current) manic, moderate 296.42 ; Attention deficit disorder of childhood without mention of hyperactivity 314.00 and Social phobia 300.23 [facility] [address] [place] [id number] [place] [address] November, [facility] [address] [place] [id number] [place] [address] November, [facility] [address] [facility] [id number] [address] [place] [address] Oct, [facility] [address] [place] [id number] [place] [address] Oct, [facility] [address] [place] [id number] [place] [address] Sep, [facility] [address] [place] [id number] [place] [address] Sep, [facility] [address] [place] [id number] [place] [address] Aug, 2014 [facility] [address] [id number] [address] [place] [address], [place] [address] Aug, 2014 [facility] [address] [id number] [address] [place] [address], [place] [address] Aug, 2014 [facility] [address] [id number] [address] [place] [address], [place] [address] Aug, 2014 [facility] [address] [id number] [address] [place] [address], [place] [address] Aug, 2014 [facility] [address] [id number] [address] [place] [address], [place] [address] Aug, [facility] [address] [id number] [address] [place] [address], [place] [address] Aug, [facility] [address] [id number] [address] [place] [address], [place] [address] Jul, [facility] [address] [id number] [address] [place] [address], [place] [address] Jul, [facility] [address] [id number] [address] [place] [address], [place] [address] Jun, [facility] [address] [id number] [address] [place] [address], [place] [address] Jun, [facility] [address] [id number] [address] [place] [address], [place] [address] May, [facility] [address] [id number] [address] [place] [address], [place] [address] May, [facility] [address] [id number] [address] [place] [address], [place] [address] May, [facility] [address] [id number] [address] [place] [address], [place] [address] May, [facility] [address] [id number] [address] [place] [address] May, [facility] [address] [id number] [address] [place] [address], [place] [address] May, [facility] [address] [id number] [address] [place] [address], [place] [address] Apr, [facility] [address] [id number] [address] [place] [address], [place] [address] Apr, [facility] [address] [id number] [address] [place] [address], [place] [address] Apr, [facility] [address] [id number] [address] [place] [address], [place] [address] Apr, [facility] [address] [id number] [address] [place] [address], [place] [address] 22 Mar, 2014 [facility] [address] [id number] [address] [place] [address], [place] [address] 22 Mar, 2014 [facility] [address] [id number] [address] [place] [address], [place] [address] 19 Mar, 2013 [facility] [address] [id number] [address] [place] [address], [place] [address] 16 Mar, 2013 [facility] [address] [id number] [address] [place] [address], [place] [address] 16 Mar, 2013 [facility] [address] [id number] [address] [place] [address], [place] [address] 15 Mar, 2013 [facility] [address] [id number] [address] [place] [address], [place] [address] 11 Sep, 2013 [facility] [address] [id number] [address] [place] [address], [place] [address] 11 Sep, 2013 [facility] [address] [id number] [address] [place] [address], [place] [address] 11 Sep, 2013 [facility] [address] [id number] [address] [place] [address], [place] [address] 11 Mar, 2013 [facility] [address] [id number] [address] [place] [address], [place] [address] Mar, 2013 [facility] [address] [id number] [address] [place] [address], [place] [address] Mar, 2013 [facility] [address] [id number] [address] [place] [address], [place] [address] Mar, [facility] [address] [id number] [address] [place] [address], [place] [address] Mar, [facility] [address] [id number] [address] [place] [address], [place] [address] Mar, [facility] [address] [id number] [address] [place] [address], [place] [address] Feb, [facility] [address] [id number] [address] [place] [address], [place] [address] Feb, [facility] [address] [id number] [address] [place] [address], [place] [address] Feb, [facility] [address] [id number] [address] [place] [address], [place] [address] Feb, [facility] [address] [id number] [address] [place] [address], [place] [address] Feb, [facility] [address] [id number] [address] [place] [address], [place] [address] Feb, [facility] [address] [id number] [address] [place] [address], [place] [address] Feb, [facility] [address] [id number] [address] [place] [address], [place] [address] Feb, [facility] [address] [id number] [address] [place] [address], [place] [address] Feb, [facility] [address] [id number] [address] [place] [address], [place] [address] Feb, [facility] [address] [id number] [address] [place] [address], [place] [address] Feb, [facility] [address] [id number] [address] [place] [address], [place] [address] Feb, [facility] [address] [id number] [address] [place] [address], [place] [address] Feb, [facility] [address] [id number] [address] [place] [address], [place] [address] Feb, [facility] [address] [id number] [address] [place] [address], [place] [address] Jan, [facility] [address] [id number] [address] [place] [address], [place] [address] Jan, [facility] [address] [id number] [address] [place] [address], [place] [address] Jan, [facility] [address] [id number] [address] [place] [address], [place] [address] Jan, [facility] [address] [id number] [address] [place] [address], [place] [address] Jan, [facility] [address] [id number] [address] [place] [address], [place] [address] Jan, [facility] [address] [id number] [address] [place] [address], [place] [address] Jan, [facility] [address] [id number] [address] [place] [address], [place] [address] Dec, [facility] [address] [id number] [address] [place] [address], [place] [address] Dec, [facility] [address] [id number] [address] [place] [address], [place] [address] Dec, [facility] [address] [id number] [address] [place] [address], [place] [address] Dec, [facility] [address] [id number] [address] [place] [address], [place] [address] Dec, [facility] [address] [id number] [address] [place] [address], [place] [address] Dec, [facility] [address] [id number] [facility] [address] Dec, [facility] [address] [id number] [address] [place] [address], [place] [address] Dec, [facility] [address] [id number] [address] [place] [address], [place] [address] Dec, [facility] [address] [id number] [address] [place] [address], [place] [address] November, [facility] [address] [id number] [address] [place] [address], [place] [address] November, [facility] [address] [id number] [address] [place] [address], [place] [address] November, [facility] [address] [id number] [address] [place] [address], [place] [address] November, [facility] [address] [id number] [address] [place] [address], [place] [address] November, [facility] [address] [id number] [address] [place] [address], [place] [address] November, [facility] [address] [id number] [address] [place] [address], [place] [address] November, [facility] [address] [id number] [address] [place] [address], [place] [address] November, [facility] [address] [id number] [address] [place] [address], [place] [address] November, [facility] [address] [id number] [address] [place] [address], [place] [address] November, [facility] [address] [id number] [address] [place] [address], [place] [address] November, [facility] [address] [id number] [address] [place] [address], [place] [address] November, [facility] [address] [id number] [address] [place] [address], [place] [address] November, [facility] [address] [id number] [address] [place] [address], [place] [address] November, [facility] [address] [id number] [address] [place] [address], [place] [address] Oct, [facility] [address] [id number] [address] [place] [address], [place] [address] Oct, [facility] [address] [id number] [address] [place] [address], [place] [address] Oct, [facility] [address] [id number] [address] [place] [address], [place] [address] Oct, [facility] [address] [id number] [address] [place] [address], [place] [address] Oct, [facility] [address] [id number] [address] [place] [address], [place] [address] Oct, [facility] [address] [id number] [address] [place] [address], [place] [address] Sep, [facility] [address] [id number] [address] [place] [address], [place] [address] Sep, [facility] [address] [id number] [address] [place] [address], [place] [address] Sep, [facility] [address] [id number] [address] [place] [address], [place] [address] Sep, [facility] [address] [id number] [address] [place] [address], [place] [address] Aug, [facility] [address] [id number] [address] [place] [address], [place] [address] Aug, [facility] [address] [id number] [address] [place] [address], [place] [address] Aug, [facility] [address] [id number] [address] [place] [address], [place] [address] Aug, [facility] [address] [id number] [address] [place] [address], [place] [address] Jul, [facility] [address] [id number] [address] [place] [address], [place] [id number] Jul, [facility] [address] [id number] [address] [place] [address], [place] [address] Jul, [facility] [address] [id number] [address] [place] [address], [place] [address] Jul, [facility] [address] [id number] [address] [place] [address], [place] [address] Jul, [facility] [address] [id number] [address] [place] [address], [place] [id number] Jul, [facility] [address] [id number] [address] [place] [address], [place] [address] Jul, [facility] [address] [id number] [address] [place] [address], [place] [id number] Jun, [facility] [address] [id number] [address] [place] [address], [place] [address] Jun, [facility] [address] [id number] [address] [place] [address], [place] [address] Jun, [facility] [address] [id number] [address] [place] [address], [place] [address] 17 Jun, 2013 [facility] [address] [id number] [address] [place] [address], [place] [address] Jun, [facility] [address] [id number] [address] [place] [address], [place] [address] Jun, [facility] [address] [id number] [address] [place] [address], [place] [address] May, [facility] [address] [address] [id number] [address] [place] [address], [place] [address] May, [facility] [address] [id number] [address] [place] [address], [place] [address] 15 Apr, 2013 [facility] [address] [id number] [address] [place] [address], [place] [id number] 15 Apr, 2013 [facility] [address] [id number] [address] [place] [address], [place] [address] 10 Apr, 2013 [facility] [address] [id number] [address] [place] [address], [place] [address] 10 Apr, 2013 [facility] [address] [id number] [address] [place] [address], [place] [address] 08 Apr, 2013 [facility] [address] [id number] [address] [place] [address], [place] [address] 24 Mar, 2013 [facility] [address] [id number] [address] [place] [address], [place] [id number] 19 Mar, 2013 [facility] [address] [id number] [address] [place] [address], [place] [address] Mar, [facility] [address] [id number] [address] [place] [address], [place] [address] Mar, [facility] [address] [id number] [address] [place] [address], [place] [address] Feb, [facility] [address] [id number] [address] [place] [address], [place] [address] Feb, [facility] [address] [id number] [address] [place] [address], [place] [address] Jan, [facility] [address] [id number] [address] [place] [address], [place] [address] Jan, [facility] [address] [id number] [address] [place] [address], [place] [address] Jan, [facility] [address] [id number] [address] [place] [address], [place] [address] Jan, [facility] [address] [id number] [address] [place] [address], [place] [address] Dec, [facility] [address] [id number] [address] [place] [address], [place] [address] 15 Dec, 2012 [facility] [address] [id number] [address] [place] [address], [place] [address] 07 Dec, 2012 [facility] [address] [id number] [address] [place] [address], [place] [id number] 06 Dec, 2012 [facility] [address] [id number] [address] [place] [address], [place] [address] 16 Nov, 2012 [facility] [address] [id number] [address] [place] [address], [place] [address] November, [facility] [address] [id number] [address] [place] [address], [place] [address] Oct, [facility] [address] [id number] [address] [place] [address], [place] [address] Sep, [facility] [address] [id number] [address] [place] [address], [place] [address] Sep, [facility] [address] [id number] [address] [place] [address], [place] [address] 14 Aug, 2012 [facility] [address] [id number] [address] [place] [address], [place] [address] Aug, [facility] [address] [id number] [address] [place] [address], [place] [address] Jul, [facility] [address] [id number] [address] [place] [address], [place] [address] Jul, [facility] [address] [id number] [address] [place] [address], [place] [address] Jul, [facility] [address] [id number] [address] [place] [address], [place] [address] Jun, [facility] [address] [id number] [address] [place] [address], [place] [address] Jun, [facility] [address] [id number] [address] [place] [address], [place] [address] Jun, [facility] [address] [id number] [address] [place] [address], [place] [address] 15 Jun, 2012 [facility] [address] [id number] [address] [place] [address], [place] [address] May, [facility] [address] [id number] [address] [place] [address], [place] [address] May, [facility] [address] [id number] [address] [place] [address], [place] [address] May, [facility] [address] [id number] [address] [place] [address], [place] [address] May, [facility] [address] [id number] [address] [place] [address], [place] [address] May, [facility] [address] [id number] [address] [place] [address], [place] [address] May, [facility] [address] [id number] [address] [place] [address] May, [facility] [address] [id number] [address] [place] [address], [place] [address] 15 Apr, 2012 [facility] [address] [id number] [address] [place] [address] 15 Apr, 2012 [facility] [address] [id number] [address] [place] [address] 15 Apr, 2012 [facility] [address] [id number] [address] [place] [address] Apr, [facility] [address] [id number] [address] [place] [address], [place] [address] Apr, [facility] [address] [id number] [address] [place] [address] Apr, [facility] [address] [id number] [address] [place] [address] Apr, [facility] [address] [id number] [address] [place] [address], [place] [address] Apr, [facility] [address] [id number] [address] [place] [address], [place] [address] Jan, [facility] [address] [id number] [address] [place] [address], [place] [address] Jan, [facility] [address] [id number] [address] [place] [address], [place] [address] Dec, [facility] [address] [id number] [address] [place] [address], [place] [address] November, [facility] [address] [id number] [address] [place] [address], [place] [address] Oct, [facility] [address] [id number] [address] [place] [address], [place] [address] Oct, [facility] [address] [id number] [address] [place] [address], [place] [address] Oct, [facility] [address] [id number] [address] [place] [address], [place] [address] Oct, [facility] [address] [id number] [address] [place] [address], [place] [address] Sep, [facility] [address] [id number] [address] [place] [address], [place] [address] Sep, [facility] [address] [id number] [address] [place] [address], [place] [address] Sep, [facility] [address] [id number] [address] [place] [address], [place] [address] Jun, [facility] [address] [id number] [address] [place] [address], [place] [address] Jun, [facility] [address] [id number] [address] [place] [address], [place] [address] May, [facility] [address] [id number] [address] [place] [address], [place] [address] 14 Jan, 2011 [facility] [address] [id number] [address] [place] [address] November, [facility] [address] [id number] [address] [place] [address] 14 Oct, 2010 [facility] [address] [id number] [address] [place] [id number] 16 Sep, 2010 [facility] [address] [id number] [address] [place] [address] 30 May, 2010 [facility] [address] [id number] [address] [place] [address] Jul, [facility] [address] [id number] [address] [place] [address] Jun, [facility] [address] [id number] [address] [place] [address] Jun, [facility] [address] [id number] [address] [place] [address] Jun, [facility] [address] [id number] [address] [place] [address] Jun, [facility] [address] [id number] [address] [place] [address] May, [facility] [address] [id number] [address] [place] [address] May, [facility] [address] [id number] [address] [place] [address] Apr, [facility] [address] [id number] [address] [place] [address] Apr, [facility] [address] [id number] [address] [place] [address] Apr, IMMUNIZATIONS No Known Immunizations SOCIAL HISTORY Never Assessed [place] [place] VITAL SIGNS MEDICATIONS Unknown [...] right 06/1996 Surgical History multiple knee injections ([id number]) Surgical History left knee replacement 06/11 Hospitalization History Knee surgery- x 3 days 06/11
--- OUTSIDE RECORDS SUMMARY | 2019-12-16 20:36 | XMS REPORT ---
Author Author Patti Guzman Doctor Organization [facility] Address Unknown Phone Unavailable Care Team Providers Care Supervisor Travel Trailer Name Role Phone Migration, Doctor Unavailable Unavailable PROBLEMS Type Condition ICD9-CM Code [id number] Code Onset Dates Condition S tatus SNOMED Code Problem Drug abuse counseling and surveillance of drug abuser Z71.51 Active 811200360 Problem Joint pain M25.50 Active 85927607 Problem ADD (attention deficit disorder) F90.0 Active 497511113 Problem Manic bipolar I disorder in partial remission F31. 73 Active 47925395 Problem Edema, unspecified type R60.9 Active 262755257 Problem Episode of recurrent major d epressive disorder, unspecified depression episode severity F33.9 Active 436890705 Problem ADD (attention deficit disorder) without hyperactivity F98.8 Active 86706872 Problem Social anxiety disorder F40.10 Active 11471526 Problem Carpal tunnel syndrome on left G56.02 Active 354083881914450 Problem Insomnia G47.00 Active 864691470 Problem Venous insufficiency (chronic) (peripheral) I87.2 Active [id number] Problem Other chronic pain G89.29 Active 8 6020589 Problem Stimulant abuse F15.10 Active 4415 97498 Problem Bipolar II disorder F31.81 Active 57394792 ALLERGIES No Information ENCOUNTERS Encounter Location Date Diagnosis [place] [id number] [facility] [id number] [address] [place] [phone] Oct, [facility] [address] [facility] [id number] [address] [place] [phone] May, Screening for lipid disorder s Z13.220 [facility] [address] [place] [id number] [address] [place] [phone] May, Carpal tunnel syndrome on le ft G56.02 ; Social anxiety disorder F40.10 and Screening for lipid disorders Z13.220 [place] [address] [facility] [id number] [address] [place] [phone] Apr, Bipolar II disorder F31.81 ; Social anxiety disorder F40.10 ; ADD (attention deficit disorder) without hyperactivity F98.8 and BMI 45.0-49.9, adult Z68.42 [place] [address] [facility] [id number] [address] [place] [phone] Mar, [place] [address] [facility] [id number] [address] [place] [phone] 17 Feb, 2018 BMI 45.0-49.9, adult Z68.42 ; Carpal tunnel syndrome on left G56.02 and Social anxiety disorder F40.10 [place] [address] [facility] [id number] [address] [place] [phone] Jan, Bipolar II disorder F31.81 ; ADD (attention deficit disorder) without hyperactivity F98.8 ; Social anxiety disorder F40.10 and Stimulant abuse F15.10 [place] [address] [place] [id number] [place] [phone] Dec, Episode of recurrent major d epressive disorder, unspecified depression episode severity F33.9 ; Other chronic pain G89.29 ; Radiculopathy, lumbar region M54.16 ; Edema of lower extremity R60.0 and BMI 45.0-49.9, adult Z68.42 [place] [address] [place] [id number] [address] [place] [phone] Jun, [place] [address] [place] [id number] [address] [place] [phone] Jan, Joint pain M25.50 [place] [address] [place] [id number] [address] [place] [address] Jan, Wellness examination Z00.00 ; Pain in right knee M25.561 ; Pain in left knee M25.562 ; Edema, unspecified type R60.9 and Drug abuse counseling and surveillance of drug abuser Z71.51 [place] [address] [place] [id number] [address] [place] [phone] November, [place] [address] [facility] [id number] [address] [place] [phone] Oct, [facility] [address] [facility] [id number] [address] [place] [phone] Oct, ADD (attention deficit disor josselin) F90.0 ; Social anxiety disorder F40.10 and Manic bipolar I disorder in partial remission F31.73 [facility] [address] [facility] [id number] [address] [place] [phone] Aug, [facility] [address] [facility] [id number] [address] [place] [phone] Aug, [facility] [address] [facility] [id number] [address] [place] [phone] Aug, [facility] [address] [place] [id number] [address] [place] [phone] Jul, [facility] [address] [facility] [id number] [address] [place] [phone] Jul, [facility] [address] [facility] [id number] [address] [place] [phone] Jul, [facility] [address] [place] [id number] [address] [place] [phone] Jun, [facility] [address] [place] [id number] [address] [place] [phone] Jun, [facility] [address] [facility] [id number] [address] [place] [phone] Jun, [facility] [address] [facility] [id number] [address] [place] [phone] Jun, [facility] [address] [place] [id number] [address] [place] [phone] May, Joint pain M25.50 ; ADD (att ention deficit disorder) F90.0 ; Edema R60.9 and Insomnia G47.00 [facility] [address] [facility] [id number] [address] [place] [phone] May, [facility] [address] [facility] [id number] [address] [place] [phone] May, [facility] [address] [facility] [id number] [address] [place] [phone] May, [facility] [address] [facility] [id number] [address] [place] [phone] May, Left wrist pain M25.532 ; Si nusitis J32.9 and Drug abuse counseling and surveillance of drug abuser Z71.51 [facility] [address] [facility] [id number] [address] [place] [phone] Apr, [facility] [address] [facility] [id number] [address] [place] [phone] Apr, [facility] [address] [facility] [id number] [address] [place] [phone] Apr, [facility] [address] [facility] [id number] [address] [place] [phone] Apr, [facility] [address] [facility] [id number] [address] [place] [phone] Apr, [facility] [address] [facility] [id number] [address] [place] [phone] Apr, [facility] [address] [facility] [id number] [address] [place] [phone] Apr, [facility] [address] [facility] [id number] [address] [place] [phone] Mar, Unspecified venous (peripher al) insufficiency 459.81 ; Bipolar I disorder, most recent episode (or current) manic, moderate 296.42 ; Social phobia 300.23 ; Attention deficit disorder of childhood without mention of hyperactivity 314.00 ; Pain in joint, lower leg 719.46 ; Thrombosis 453.9 and Chronic pain 338.29 [facility] [address] [facility] [id number] [address] [place] [phone] Mar, [facility] [address] [id number] [address] [place] [phone] 18 Mar, 2015 [facility] [address] [id number] [address] [place] [phone] 18 Mar, 2015 [facility] [address] [facility] [id number] [address] [place] [phone] Mar, [facility] [address] [facility] [id number] [address] [place] [phone] Mar, [facility] [address] [facility] [id number] [address] [place] [phone] Mar, [facility] [address] [facility] [id number] [address] [place] [phone] Mar, Manic bipolar I disorder in partial remission 296.45 ; Social phobia 300.23 and Attention deficit disorder of childhood without mention of hyperactivity 314.00 [facility] [address] [facility] [id number] [address] [place] [phone] Mar, [facility] [address] [facility] [id number] [address] [place] [phone] Feb, [facility] [address] [facility] [id number] [address] [place] [phone] Feb, Thrombosis 453.9 ; Unspecifi ed venous (peripheral) insufficiency 459.81 ; Bipolar I disorder, most recent episode (or current) manic, moderate 296.42 ; Social phobia 300.23 ; Attention deficit disorder of childhood without mention of hyperactivity 314.00 ; Pain in joint, lower leg 719.46 and Edema 782.3 [facility] [address] [facility] [id number] [address] [place] [phone] Feb, [facility] [address] [facility] [id number] [address] [place] [phone] Feb, Social phobia 300.23 ; Atten tion deficit disorder of childhood without mention of hyperactivity 314.00 and Bipolar I disorder, most recent episode manic, in partial remission 296.45 [facility] [address] [facility] [id number] [address] [place] [phone] Jan, [facility] [address] [facility] [id number] [address] [place] [phone] Jan, [facility] [address] [facility] [id number] [address] [place] [phone] Jan, Unspecified venous (peripher al) insufficiency 459.81 and Thrombophlebitis 451.9 [facility] [address] [place] [id number] [address] [place] [phone] Jan, [facility] [address] [facility] [id number] [address] [place] [phone] Dec, Headache 784.0 and Back pain 724.5 [facility] [address] [place] [id number] [address] [place] [phone] Dec, [facility] [address] [place] [id number] [place] [address] Dec, Bipolar I disorder, most rec ent episode (or current) manic, moderate 296.42 ; Attention deficit disorder of childhood without mention of hyperactivity 314.00 and Social phobia 300.23 [facility] [address] [place] [id number] [address] [place] [phone] November, [facility] [address] [place] [id number] [address] [place] [phone] November, [facility] [address] [facility] [id number] [address] [place] [phone] Oct, [facility] [address] [place] [id number] [address] [place] [phone] Oct, [facility] [address] [place] [id number] [address] [place] [phone] Sep, [facility] [address] [place] [id number] [address] [place] [phone] Sep, [facility] [address] [place] [id number] [address] [place] [phone] Aug, 2014 [facility] [address] [id number] [address] [place] [address], [place] [address] Aug, 2014 [facility] [address] [id number] [address] [place] [address], [place] [address] Aug, 2014 [facility] [address] [id number] [address] [place] [address], [place] [address] Aug, 2014 [facility] [address] [id number] [address] [place] [address], [place] [address] Aug, 2014 [facility] [address] [id number] [address] [place] [address], [place] [address] Aug, [facility] [address] [id number] [address] [place] [address], [place] [address] Aug, [facility] [address] [id number] [address] [place] [address], [place] [address] Jul, [facility] [address] [id number] [address] [place] [address], [place] [address] Jul, [facility] [address] [id number] [address] [place] [address], [place] [address] Jun, [facility] [address] [id number] [address] [place] [address], [place] [address] Jun, [facility] [address] [id number] [address] [place] [address], [place] [address] May, [facility] [address] [id number] [address] [place] [address], [place] [address] May, [facility] [address] [id number] [address] [place] [address], [place] [address] May, [facility] [address] [id number] [address] [place] [address], [place] [address] May, [facility] [address] [id number] [address] [place] [phone] May, [facility] [address] [id number] [address] [place] [address], [place] [address] May, [facility] [address] [id number] [address] [place] [address], [place] [address] Apr, [facility] [address] [id number] [address] [place] [address], [place] [address] Apr, [facility] [address] [id number] [address] [place] [address], [place] [address] Apr, [facility] [address] [id number] [address] [place] [address], [place] [address] Apr, [facility] [address] [id number] [address] [place] [address], [place] [address] 22 Mar, 2014 [facility] [address] [id number] [address] [place] [address], [place] [address] 22 Mar, 2014 [facility] [address] [id number] [address] [place] [address], [place] [address] 19 Mar, 2013 [facility] [address] [id number] [address] [place] [address], [place] [address] 16 Mar, 2013 [facility] [address] [id number] [address] [place] [address], [place] [address] 16 Mar, 2013 [facility] [address] [id number] [address] [place] [address], [place] [address] 15 Mar, 2013 [facility] [address] [id number] [address] [place] [address], [place] [address] 11 Sep, 2013 [facility] [address] [id number] [address] [place] [address], [place] [address] 11 Sep, 2013 [facility] [address] [id number] [address] [place] [address], [place] [address] 11 Sep, 2013 [facility] [address] [id number] [address] [place] [address], [place] [address] 11 Mar, 2013 [facility] [address] [id number] [address] [place] [address], [place] [address] Mar, 2013 [facility] [address] [id number] [address] [place] [address], [place] [address] Mar, 2013 [facility] [address] [id number] [address] [place] [address], [place] [address] Mar, [facility] [address] [id number] [address] [place] [address], [place] [address] Mar, [facility] [address] [id number] [address] [place] [address], [place] [address] Mar, [facility] [address] [id number] [address] [place] [address], [place] [address] Feb, [facility] [address] [id number] [address] [place] [address], [place] [address] Feb, [facility] [address] [id number] [address] [place] [address], [place] [address] Feb, [facility] [address] [id number] [address] [place] [address], [place] [address] Feb, [facility] [address] [id number] [address] [place] [address], [place] [address] Feb, [facility] [address] [id number] [address] [place] [address], [place] [address] Feb, [facility] [address] [id number] [address] [place] [address], [place] [address] Feb, [facility] [address] [id number] [address] [place] [address], [place] [address] Feb, [facility] [address] [id number] [address] [place] [address], [place] [address] Feb, [facility] [address] [id number] [address] [place] [address], [place] [address] Feb, [facility] [address] [id number] [address] [place] [address], [place] [address] Feb, [facility] [address] [id number] [address] [place] [address], [place] [address] Feb, [facility] [address] [id number] [address] [place] [address], [place] [address] Feb, [facility] [address] [id number] [address] [place] [address], [place] [address] Feb, [facility] [address] [id number] [address] [place] [address], [place] [address] Jan, [facility] [address] [id number] [address] [place] [address], [place] [address] Jan, [facility] [address] [id number] [address] [place] [address], [place] [address] Jan, [facility] [address] [id number] [address] [place] [address], [place] [address] Jan, [facility] [address] [id number] [address] [place] [address], [place] [address] Jan, [facility] [address] [id number] [address] [place] [address], [place] [address] Jan, [facility] [address] [id number] [address] [place] [address], [place] [address] Jan, [facility] [address] [id number] [address] [place] [address], [place] [address] Dec, [facility] [address] [id number] [address] [place] [address], [place] [address] Dec, [facility] [address] [id number] [address] [place] [address], [place] [address] Dec, [facility] [address] [id number] [address] [place] [address], [place] [address] Dec, [facility] [address] [id number] [address] [place] [address], [place] [address] Dec, [facility] [address] [id number] [address] [place] [address], [place] [address] Dec, [facility] [address] [id number] [facility] [place] [place] [address] Dec, [facility] [address] [id number] [address] [place] [address], [place] [address] Dec, [facility] [address] [id number] [address] [place] [address], [place] [address] Dec, [facility] [address] [id number] [address] [place] [address], [place] [address] November, [facility] [address] [id number] [address] [place] [address], [place] [address] November, [facility] [address] [id number] [address] [place] [address], [place] [address] November, [facility] [address] [id number] [address] [place] [address], [place] [address] November, [facility] [address] [id number] [address] [place] [address], [place] [address] November, [facility] [address] [id number] [address] [place] [address], [place] [address] November, [facility] [address] [id number] [address] [place] [address], [place] [address] November, [facility] [address] [id number] [address] [place] [address], [place] [address] November, [facility] [address] [id number] [address] [place] [address], [place] [address] November, [facility] [address] [id number] [address] [place] [address], [place] [address] November, [facility] [address] [id number] [address] [place] [address], [place] [address] November, [facility] [address] [id number] [address] [place] [address], [place] [address] November, [facility] [address] [id number] [address] [place] [address], [place] [address] November, [facility] [address] [id number] [address] [place] [address], [place] [address] November, [facility] [address] [id number] [address] [place] [address], [place] [address] Oct, [facility] [address] [id number] [address] [place] [address], [place] [address] Oct, [facility] [address] [id number] [address] [place] [address], [place] [address] Oct, [facility] [address] [id number] [address] [place] [address], [place] [address] Oct, [facility] [address] [id number] [address] [place] [address], [place] [address] Oct, [facility] [address] [id number] [address] [place] [address], [place] [address] Oct, [facility] [address] [id number] [address] [place] [address], [place] [address] Sep, [facility] [address] [id number] [address] [place] [address], [place] [address] Sep, [facility] [address] [id number] [address] [place] [address], [place] [address] Sep, [facility] [address] [id number] [address] [place] [address], [place] [address] Sep, [facility] [address] [id number] [address] [place] [address], [place] [address] Aug, [facility] [address] [id number] [address] [place] [address], [place] [address] Aug, [facility] [address] [id number] [address] [place] [address], [place] [address] Aug, [facility] [address] [id number] [address] [place] [address], [place] [address] Aug, [facility] [address] [id number] [address] [place] [address], [place] [address] Jul, [facility] [facility] [address] [id number] [address] [place] [address], [place] [address] Jul, [facility] [address] [id number] [address] [place] [address], [place] [address] Jul, [facility] [address] [id number] [address] [place] [address], [place] [address] Jul, [facility] [address] [id number] [address] [place] [address], [place] [address] Jul, [facility] [address] [id number] [address] [place] [address], [place] [address] Jul, [facility] [address] [id number] [address] [place] [address], [place] [address] Jul, [facility] [address] [id number] [address] [place] [address], [place] [address] Jun, [facility] [address] [id number] [address] [place] [address], [place] [address] Jun, [facility] [address] [id number] [address] [place] [address], [place] [address] Jun, [facility] [address] [id number] [address] [place] [address], [place] [address] 17 Jun, 2013 [facility] [address] [id number] [address] [place] [address], [place] [address] Jun, [facility] [address] [id number] [address] [place] [address], [place] [address] Jun, [facility] [address] [id number] [address] [place] [address], [place] [address] May, [facility] [address] [id number] [address] [place] [address], [place] [address] May, [facility] [address] [id number] [address] [place] [address], [place] [address] 15 Apr, 2013 [facility] [address] [id number] [address] [place] [address], [place] [address] 15 Apr, 2013 [facility] [address] [id number] [address] [place] [address], [place] [address] 10 Apr, 2013 [facility] [address] [id number] [address] [place] [address], [place] [address] 10 Apr, 2013 [facility] [address] [id number] [address] [place] [address], [place] [address] 08 Apr, 2013 [facility] [address] [id number] [address] [place] [address], [place] [address] 24 Mar, 2013 [facility] [address] [id number] [address] [place] [address], [place] [address] 19 Mar, 2013 [facility] [address] [id number] [address] [place] [address], [place] [address] Mar, [facility] [address] [id number] [address] [place] [address], [place] [address] Mar, [facility] [address] [id number] [address] [place] [address], [place] [address] Feb, [facility] [address] [id number] [address] [place] [address], [place] [address] Feb, [facility] [address] [id number] [address] [place] [address], [place] [address] Jan, [facility] [address] [id number] [address] [place] [address], [place] [address] Jan, [facility] [address] [id number] [address] [place] [address], [place] [address] Jan, [facility] [address] [id number] [address] [place] [address], [place] [address] Jan, [facility] [address] [id number] [address] [place] [address], [place] [address] Dec, [facility] [address] [id number] [address] [place] [address], [place] [address] 15 Dec, 2012 [facility] [address] [id number] [address] [place] [address], [place] [address] 07 Dec, 2012 [facility] [address] [id number] [address] [place] [address], [place] [address] 06 Dec, 2012 [facility] [address] [id number] [address] [place] [address], [place] [address] 16 Nov, 2012 [facility] [address] [id number] [address] [place] [address], [place] [address] November, [facility] [address] [id number] [address] [place] [address], [place] [address] Oct, [facility] [address] [id number] [address] [place] [address], [place] [address] Sep, [facility] [address] [id number] [address] [place] [address], [place] [address] Sep, [facility] [address] [id number] [address] [place] [address], [place] [address] 14 Aug, 2012 [facility] [address] [id number] [address] [place] [address], [place] [address] Aug, [facility] [address] [id number] [address] [place] [address], [place] [address] Jul, [facility] [address] [id number] [address] [place] [address], [place] [address] Jul, [facility] [address] [id number] [address] [place] [address], [place] [address] Jul, [facility] [address] [id number] [address] [place] [address], [place] [address] Jun, [facility] [address] [id number] [address] [place] [address], [place] [address] Jun, [facility] [address] [id number] [address] [place] [address], [place] [address] Jun, [facility] [address] [id number] [address] [place] [address], [place] [address] 15 Jun, 2012 [facility] [address] [id number] [address] [place] [address], [place] [address] May, [facility] [address] [id number] [address] [place] [address], [place] [address] May, [facility] [address] [id number] [address] [place] [address], [place] [address] May, [facility] [address] [id number] [address] [place] [address], [place] [address] May, [facility] [address] [id number] [address] [place] [address], [place] [address] May, [facility] [address] [id number] [address] [place] [address], [place] [address] May, [facility] [address] [id number] [address] [place] [id number] May, [facility] [address] [id number] [address] [place] [address], [place] [address] 15 Apr, 2012 [facility] [address] [id number] [address] [place] [id number] 15 Apr, 2012 [facility] [address] [id number] [address] [place] [id number] 15 Apr, 2012 [facility] [address] [id number] [address] [place] [id number] Apr, [facility] [address] [id number] [address] [place] [address], [place] [address] Apr, [facility] [address] [id number] [address] [place] [id number] Apr, [facility] [address] [id number] [address] [place] [id number] Apr, [facility] [address] [id number] [address] [place] [address], [place] [address] Apr, [facility] [address] [id number] [address] [place] [address], [place] [address] Jan, [facility] [address] [id number] [address] [place] [address], [place] [address] Jan, [facility] [address] [id number] [address] [place] [address], [place] [address] Dec, [facility] [address] [id number] [address] [place] [address], [place] [address] November, [facility] [address] [id number] [address] [place] [address], [place] [address] Oct, [facility] [address] [id number] [address] [place] [address], [place] [address] Oct, [facility] [address] [id number] [address] [place] [address], [place] [address] Oct, [facility] [address] [id number] [address] [place] [address], [place] [address] Oct, [facility] [address] [id number] [address] [place] [address], [place] [address] Sep, [facility] [address] [id number] [address] [place] [address], [place] [address] Sep, [facility] [address] [id number] [address] [place] [address], [place] [address] Sep, [facility] [address] [id number] [address] [place] [address], [place] [address] Jun, [facility] [address] [id number] [address] [place] [address], [place] [address] Jun, [facility] [address] [id number] [address] [place] [address], [place] [address] May, [facility] [address] [id number] [address] [place] [address], [place] [address] 14 Jan, 2011 [facility] [address] [id number] [address] [place] [id number] November, [facility] [address] [id number] [address] [place] [id number] 14 Oct, 2010 [facility] [address] [id number] [address] [place] [id number] 16 Sep, 2010 [facility] [address] [id number] [address] [place] [id number] 30 May, 2010 [facility] [address] [id number] [address] [place] [id number] Jul, [facility] [address] [id number] [address] [place] [id number] Jun, [facility] [address] [id number] [address] [place] [id number] Jun, [facility] [address] [id number] [address] [place] [id number] Jun, [facility] [address] [id number] [address] [place] [id number] Jun, [facility] [address] [id number] [address] [place] [phone] May, [facility] [address] [id number] [address] [place] [id number] May, [facility] [address] [id number] [address] [place] [id number] Apr, [facility] [address] [id number] [address] [place] [phone] Apr, [facility] [address] [id number] [address] [place] [id number] Apr, IMMUNIZATIONS No Known Immunizations SOCIAL HISTORY Never Assessed REASON FOR VISIT EMR-[facility] [place] PLAN OF CARE VITAL SIGNS MEDICATIONS Unknown [...] right 06/1996 Surgical History multiple knee injections ([id number]) Surgical History left knee replacement 06/11 Hospitalization History Knee surgery- x 3 days 06/11
--- OUTSIDE RECORDS SUMMARY | 2019-12-16 20:36 | XMS REPORT ---
Author Author Patti Guzman Doctor Organization [facility] Address Unknown Phone Unavailable Care Team Providers Care Pulmonologist Intensivist Name Role Phone Migration, Doctor Unavailable Unavailable PROBLEMS Type Condition ICD9-CM Code VNU01-VD Code Onset Dates Condition S tatus SNOMED Code Problem Drug abuse counseling and surveillance of drug abuser Z71.51 Active 841333165 Problem Joint pain M25.50 Active 07326115 Problem ADD (attention deficit disorder) F90.0 Active 283758165 Problem Manic bipolar I disorder in partial remission F31. 73 Active 13130664 Problem Edema, unspecified type R60.9 Active 144870597 Problem Episode of recurrent major d epressive disorder, unspecified depression episode severity F33.9 Active 894496558 Problem ADD (attention deficit disorder) without hyperactivity F98.8 Active 05185073 Problem Social anxiety disorder F40.10 Active 47014005 Problem Carpal tunnel syndrome on left G56.02 Active 323178201144842 Problem Insomnia G47.00 Active 155086245 Problem Venous insufficiency (chronic) (peripheral) I87.2 Active [id number] Problem Other chronic pain G89.29 Active 8 1880555 Problem Stimulant abuse F15.10 Active 4415 67123 Problem Bipolar II disorder F31.81 Active 57066565 ALLERGIES No Information ENCOUNTERS Encounter Location Date Diagnosis [place] [address] [facility] [id number] [address] [place] [phone] Oct, [facility] [address] [facility] [id number] [address] [place] [address] May, Screening for lipid disorder s Z13.220 [facility] [address] [place] [id number] [address] [place] [address] May, Carpal tunnel syndrome on le ft G56.02 ; Social anxiety disorder F40.10 and Screening for lipid disorders Z13.220 [place] [address] [facility] [id number] [address] [place] [address] Apr, Bipolar II disorder F31.81 ; Social anxiety disorder F40.10 ; ADD (attention deficit disorder) without hyperactivity F98.8 and BMI 45.0-49.9, adult Z68.42 [place] [address] [facility] [id number] [address] [place] [address] Mar, [place] [address] [facility] [id number] [address] [place] [address] 17 Feb, 2018 BMI 45.0-49.9, adult Z68.42 ; Carpal tunnel syndrome on left G56.02 and Social anxiety disorder F40.10 [place] [address] [facility] [id number] [address] [place] [address] Jan, Bipolar II disorder F31.81 ; ADD (attention deficit disorder) without hyperactivity F98.8 ; Social anxiety disorder F40.10 and Stimulant abuse F15.10 [place] [address] [place] [id number] [place] [address] Dec, Episode of recurrent major d epressive disorder, unspecified depression episode severity F33.9 ; Other chronic pain G89.29 ; Radiculopathy, lumbar region M54.16 ; Edema of lower extremity R60.0 and BMI 45.0-49.9, adult Z68.42 [place] [address] [place] [id number] [address] [place] [address] Jun, [place] [address] [place] [id number] [address] [place] [address] Jan, Joint pain M25.50 [place] [address] [place] [id number] [address] [place] [address] Jan, Wellness examination Z00.00 ; Pain in right knee M25.561 ; Pain in left knee M25.562 ; Edema, unspecified type R60.9 and Drug abuse counseling and surveillance of drug abuser Z71.51 [place] [address] [place] [id number] [address] [place] [address] November, [place] [address] [facility] [id number] [address] [place] [address] Oct, [facility] [address] [facility] [id number] [address] [place] [address] Oct, ADD (attention deficit disor josselin) F90.0 ; Social anxiety disorder F40.10 and Manic bipolar I disorder in partial remission F31.73 [facility] [address] [facility] [id number] [address] [place] [address] Aug, [facility] [address] [facility] [id number] [address] [place] [address] Aug, [facility] [address] [facility] [id number] [address] [place] [address] Aug, [facility] [address] [place] [id number] [address] [place] [address] Jul, [facility] [address] [facility] [id number] [address] [place] [address] Jul, [facility] [address] [facility] [id number] [address] [place] [address] Jul, [facility] [address] [place] [id number] [address] [place] [address] Jun, [facility] [address] [place] [id number] [address] [place] [address] Jun, [facility] [address] [facility] [id number] [address] [place] [address] Jun, [facility] [address] [facility] [id number] [address] [place] [address] Jun, [facility] [address] [place] [id number] [address] [place] [address] May, Joint pain M25.50 ; ADD (att ention deficit disorder) F90.0 ; Edema R60.9 and Insomnia G47.00 [facility] [address] [facility] [id number] [address] [place] [address] May, [facility] [address] [facility] [id number] [address] [place] [address] May, [facility] [address] [facility] [id number] [address] [place] [address] May, [facility] [address] [facility] [id number] [address] [place] [address] May, Left wrist pain M25.532 ; Si nusitis J32.9 and Drug abuse counseling and surveillance of drug abuser Z71.51 [facility] [address] [facility] [id number] [address] [place] [address] Apr, [facility] [address] [facility] [id number] [address] [place] [address] Apr, [facility] [address] [facility] [id number] [address] [place] [address] Apr, [facility] [address] [facility] [id number] [address] [place] [address] Apr, [facility] [address] [facility] [id number] [address] [place] [address] Apr, [facility] [address] [facility] [id number] [address] [place] [address] Apr, [facility] [address] [facility] [id number] [address] [place] [address] Apr, [facility] [address] [facility] [id number] [address] [place] [address] Mar, Unspecified venous (peripher al) insufficiency 459.81 ; Bipolar I disorder, most recent episode (or current) manic, moderate 296.42 ; Social phobia 300.23 ; Attention deficit disorder of childhood without mention of hyperactivity 314.00 ; Pain in joint, lower leg 719.46 ; Thrombosis 453.9 and Chronic pain 338.29 [facility] [address] [facility] [id number] [address] [place] [address] Mar, [facility] [address] [id number] [address] [place] [address] 18 Mar, 2015 [facility] [address] [id number] [address] [place] [address] 18 Mar, 2015 [facility] [address] [facility] [id number] [address] [place] [address] Mar, [facility] [address] [facility] [id number] [address] [place] [address] Mar, [facility] [address] [facility] [id number] [address] [place] [address] Mar, [facility] [address] [facility] [id number] [address] [place] [address] Mar, Manic bipolar I disorder in partial remission 296.45 ; Social phobia 300.23 and Attention deficit disorder of childhood without mention of hyperactivity 314.00 [facility] [address] [facility] [id number] [address] [place] [address] Mar, [facility] [address] [facility] [id number] [address] [place] [address] Feb, [facility] [address] [facility] [id number] [address] [place] [address] Feb, Thrombosis 453.9 ; Unspecifi ed venous (peripheral) insufficiency 459.81 ; Bipolar I disorder, most recent episode (or current) manic, moderate 296.42 ; Social phobia 300.23 ; Attention deficit disorder of childhood without mention of hyperactivity 314.00 ; Pain in joint, lower leg 719.46 and Edema 782.3 [facility] [address] [facility] [id number] [address] [place] [address] Feb, [facility] [address] [facility] [id number] [address] [place] [address] Feb, Social phobia 300.23 ; Atten tion deficit disorder of childhood without mention of hyperactivity 314.00 and Bipolar I disorder, most recent episode manic, in partial remission 296.45 [facility] [address] [facility] [id number] [address] [place] [address] Jan, [facility] [address] [facility] [id number] [address] [place] [address] Jan, [facility] [address] [facility] [id number] [address] [place] [address] Jan, Unspecified venous (peripher al) insufficiency 459.81 and Thrombophlebitis 451.9 [facility] [address] [place] [id number] [address] [place] [address] Jan, [facility] [address] [facility] [id number] [address] [place] [address] Dec, Headache 784.0 and Back pain 724.5 [facility] [address] [place] [id number] [address] [place] [address] Dec, [facility] [address] [place] [id number] [place] [address] Dec, Bipolar I disorder, most rec ent episode (or current) manic, moderate 296.42 ; Attention deficit disorder of childhood without mention of hyperactivity 314.00 and Social phobia 300.23 [facility] [address] [place] [id number] [address] [place] [address] November, [facility] [address] [place] [id number] [address] [place] [address] November, [facility] [address] [facility] [id number] [address] [place] [address] Oct, [facility] [address] [place] [id number] [address] [place] [address] Oct, [facility] [address] [place] [id number] [address] [place] [address] Sep, [facility] [address] [place] [id number] [address] [place] [address] Sep, [facility] [address] [place] [id number] [address] [place] [address] Aug, 2014 [facility] [address] [id number] [address] [place] [address], [place] [address] Aug, 2014 [facility] [address] [id number] [address] [place] [address], [place] [address] Aug, 2014 [facility] [address] [id number] [address] [place] [address], [place] [address] Aug, 2014 [facility] [address] [id number] [address] [place] [address], [place] [address] Aug, 2014 [facility] [address] [id number] [address] [place] [address], [place] [address] Aug, [facility] [address] [id number] [address] [place] [address], [place] [address] Aug, [facility] [address] [id number] [address] [place] [address], [place] [address] Jul, [facility] [address] [id number] [address] [place] [address], [place] [address] Jul, [facility] [address] [id number] [address] [place] [address], [place] [address] Jun, [facility] [address] [id number] [address] [place] [address], [place] [address] Jun, [facility] [address] [id number] [address] [place] [address], [place] [address] May, [facility] [address] [id number] [address] [place] [address], [place] [address] May, [facility] [address] [id number] [address] [place] [address], [place] [address] May, [facility] [address] [id number] [address] [place] [address], [place] [address] May, [facility] [address] [id number] [address] [place] [address] May, [facility] [address] [id number] [address] [place] [address], [place] [address] May, [facility] [address] [id number] [address] [place] [address], [place] [address] Apr, [facility] [address] [id number] [address] [place] [address], [place] [address] Apr, [facility] [address] [id number] [address] [place] [address], [place] [address] Apr, [facility] [address] [id number] [address] [place] [address], [place] [address] Apr, [facility] [address] [id number] [address] [place] [address], [place] [address] 22 Mar, 2014 [facility] [address] [id number] [address] [place] [address], [place] [address] 22 Mar, 2014 [facility] [address] [id number] [address] [place] [address], [place] [address] 19 Mar, 2013 [facility] [address] [id number] [address] [place] [address], [place] [address] 16 Mar, 2013 [facility] [address] [id number] [address] [place] [address], [place] [address] 16 Mar, 2013 [facility] [address] [id number] [address] [place] [address], [place] [address] 15 Mar, 2013 [facility] [address] [id number] [address] [place] [address], [place] [address] 11 Sep, 2013 [facility] [address] [id number] [address] [place] [address], [place] [address] 11 Sep, 2013 [facility] [address] [id number] [address] [place] [address], [place] [address] 11 Sep, 2013 [facility] [address] [id number] [address] [place] [address], [place] [address] 11 Mar, 2013 [facility] [address] [id number] [address] [place] [address], [place] [address] Mar, 2013 [facility] [address] [id number] [address] [place] [address], [place] [address] Mar, 2013 [facility] [address] [id number] [address] [place] [address], [place] [address] Mar, [facility] [address] [id number] [address] [place] [address], [place] [address] Mar, [facility] [address] [id number] [address] [place] [address], [place] [address] Mar, [facility] [address] [id number] [address] [place] [address], [place] [address] Feb, [facility] [address] [id number] [address] [place] [address], [place] [address] Feb, [facility] [address] [id number] [address] [place] [address], [place] [address] Feb, [facility] [address] [id number] [address] [place] [address], [place] [address] Feb, [facility] [address] [id number] [address] [place] [address], [place] [address] Feb, [facility] [address] [id number] [address] [place] [address], [place] [address] Feb, [facility] [address] [id number] [address] [place] [address], [place] [address] Feb, [facility] [address] [id number] [address] [place] [address], [place] [address] Feb, [facility] [address] [id number] [address] [place] [address], [place] [address] Feb, [facility] [address] [id number] [address] [place] [address], [place] [address] Feb, [facility] [address] [id number] [address] [place] [address], [place] [address] Feb, [facility] [address] [id number] [address] [place] [address], [place] [address] Feb, [facility] [address] [id number] [address] [place] [address], [place] [address] Feb, [facility] [address] [id number] [address] [place] [address], [place] [address] Feb, [facility] [address] [id number] [address] [place] [address], [place] [address] Jan, [facility] [address] [id number] [address] [place] [address], [place] [address] Jan, [facility] [address] [id number] [address] [place] [address], [place] [address] Jan, [facility] [address] [id number] [address] [place] [address], [place] [address] Jan, [facility] [address] [id number] [address] [place] [address], [place] [address] Jan, [facility] [address] [id number] [address] [place] [address], [place] [address] Jan, [facility] [address] [id number] [address] [place] [address], [place] [address] Jan, [facility] [address] [id number] [address] [place] [address], [place] [address] Dec, [facility] [address] [id number] [address] [place] [address], [place] [address] Dec, [facility] [address] [id number] [address] [place] [address], [place] [address] Dec, [facility] [address] [id number] [address] [place] [address], [place] [address] Dec, [facility] [address] [id number] [address] [place] [address], [place] [address] Dec, [facility] [address] [id number] [address] [place] [address], [place] [address] Dec, [facility] [address] [id number] [facility] [place] [address] Dec, [facility] [address] [id number] [address] [place] [address], [place] [address] Dec, [facility] [address] [id number] [address] [place] [address], [place] [address] Dec, [facility] [address] [id number] [address] [place] [address], [place] [address] November, [facility] [address] [id number] [address] [place] [address], [place] [address] November, [facility] [address] [id number] [address] [place] [address], [place] [address] November, [facility] [address] [id number] [address] [place] [address], [place] [address] November, [facility] [address] [id number] [address] [place] [address], [place] [address] November, [facility] [address] [id number] [address] [place] [address], [place] [address] November, [facility] [address] [id number] [address] [place] [address], [place] [address] November, [facility] [address] [id number] [address] [place] [address], [place] [address] November, [facility] [address] [id number] [address] [place] [address], [place] [address] November, [facility] [address] [id number] [address] [place] [address], [place] [address] November, [facility] [address] [id number] [address] [place] [address], [place] [id number] November, [facility] [address] [id number] [address] [place] [address], [place] [id number] November, [facility] [address] [id number] [address] [place] [address], [place] [address] November, [facility] [address] [id number] [address] [place] [address], [place] [address] November, [facility] [address] [id number] [address] [place] [address], [place] [address] Oct, [facility] [address] [id number] [address] [place] [address], [place] [address] Oct, [facility] [address] [id number] [address] [place] [address], [place] [address] Oct, [facility] [address] [id number] [address] [place] [address], [place] [id number] Oct, [facility] [address] [id number] [address] [place] [address], [place] [id number] Oct, [facility] [address] [id number] [address] [place] [address], [place] [address] Oct, [facility] [address] [id number] [address] [place] [address], [place] [address] Sep, [facility] [address] [id number] [address] [place] [address], [place] [address] Sep, [facility] [address] [id number] [address] [place] [address], [place] [id number] Sep, [facility] [address] [id number] [address] [place] [address], [place] [address] Sep, [facility] [address] [id number] [address] [place] [address], [place] [id number] Aug, [facility] [address] [id number] [address] [place] [address], [place] [address] Aug, [facility] [address] [id number] [address] [place] [address], [place] [id number] Aug, [facility] [address] [id number] [address] [place] [address], [place] [id number] Aug, [facility] [address] [id number] [address] [place] [address], [place] [id number] Jul, [facility] [address] [id number] [address] [place] [address], [place] [id number] Jul, [facility] [address] [id number] [address] [place] [address], [place] [address] Jul, [facility] [address] [id number] [address] [place] [address], [place] [address] Jul, [facility] [address] [id number] [address] [place] [address], [place] [address] Jul, [facility] [address] [id number] [address] [place] [address], [place] [id number] Jul, [facility] [address] [id number] [address] [place] [address], [place] [address] Jul, [facility] [address] [id number] [address] [place] [address], [place] [address] Jun, [facility] [address] [id number] [address] [place] [address], [place] [address] Jun, [facility] [address] [id number] [address] [place] [address], [place] [address] Jun, [facility] [address] [id number] [address] [place] [address], [place] [address] 17 Jun, 2013 [facility] [address] [id number] [address] [place] [address], [place] [address] Jun, [facility] [address] [id number] [address] [place] [address], [place] [address] Jun, [facility] [address] [id number] [address] [place] [address], [place] [address] May, [facility] [address] [id number] [address] [place] [address], [place] [address] May, [facility] [address] [id number] [address] [place] [address], [place] [address] 15 Apr, 2013 [facility] [address] [id number] [address] [place] [address], [place] [id number] 15 Apr, 2013 [facility] [address] [id number] [address] [place] [address], [place] [address] 10 Apr, 2013 [facility] [address] [id number] [address] [place] [address], [place] [id number] 10 Apr, 2013 [facility] [address] [id number] [address] [place] [address], [place] [id number] 08 Apr, 2013 [facility] [address] [id number] [address] [place] [address], [place] [address] 24 Mar, 2013 [facility] [address] [id number] [address] [place] [address], [place] [id number] 19 Mar, 2013 [facility] [address] [id number] [address] [place] [address], [place] [address] Mar, [facility] [address] [id number] [address] [place] [address], [place] [address] Mar, [facility] [address] [id number] [address] [place] [address], [place] [address] Feb, [facility] [address] [id number] [address] [place] [address], [place] [address] Feb, [facility] [address] [id number] [address] [place] [address], [place] [address] Jan, [facility] [address] [id number] [address] [place] [address], [place] [id number] Jan, [facility] [address] [id number] [address] [place] [address], [place] [address] Jan, [facility] [address] [id number] [address] [place] [address], [place] [address] Jan, [facility] [address] [id number] [address] [place] [address], [place] [address] Dec, [facility] [address] [id number] [address] [place] [address], [place] [address] 15 Dec, 2012 [facility] [address] [id number] [address] [place] [address], [place] [id number] 07 Dec, 2012 [facility] [address] [id number] [address] [place] [address], [place] [id number] 06 Dec, 2012 [facility] [address] [id number] [address] [place] [address], [place] [id number] 16 Nov, 2012 [facility] [address] [id number] [address] [place] [address], [place] [address] November, [facility] [address] [id number] [address] [place] [address], [place] [id number] Oct, [facility] [address] [id number] [address] [place] [address], [place] [address] Sep, [facility] [address] [id number] [address] [place] [address], [place] [address] Sep, [facility] [address] [id number] [address] [place] [address], [place] [id number] 14 Aug, 2012 [facility] [address] [id number] [address] [place] [address], [place] [address] Aug, [facility] [address] [id number] [address] [place] [address], [place] [id number] Jul, [facility] [address] [id number] [address] [place] [address], [place] [address] Jul, [facility] [address] [id number] [address] [place] [address], [place] [id number] Jul, [facility] [address] [id number] [address] [place] [address], [place] [address] Jun, [facility] [address] [id number] [address] [place] [address], [place] [address] Jun, [facility] [address] [id number] [address] [place] [address], [place] [address] Jun, [facility] [address] [id number] [address] [place] [address], [place] [address] 15 Jun, 2012 [facility] [address] [id number] [address] [place] [address], [place] [address] May, [facility] [address] [id number] [address] [place] [address], [place] [address] May, [facility] [address] [id number] [address] [place] [address], [place] [id number] May, [facility] [address] [id number] [address] [place] [address], [place] [address] May, [facility] [address] [id number] [address] [place] [address], [place] [address] May, [facility] [address] [id number] [address] [place] [address], [place] [address] May, [facility] [address] [id number] [address] [place] [id number] May, [facility] [address] [id number] [address] [place] [address], [place] [address] 15 Apr, 2012 [facility] [address] [id number] [address] [place] [id number] 15 Apr, 2012 [facility] [address] [id number] [address] [place] [id number] 15 Apr, 2012 [facility] [address] [id number] [address] [place] [id number] Apr, [facility] [address] [id number] [address] [place] [address], [place] [address] Apr, [facility] [address] [id number] [address] [place] [id number] Apr, [facility] [address] [id number] [address] [place] [id number] Apr, [facility] [address] [id number] [address] [place] [address], [place] [address] Apr, [facility] [address] [id number] [address] [place] [address], [place] [address] Jan, [facility] [address] [id number] [address] [place] [address], [place] [address] Jan, [facility] [address] [id number] [address] [place] [address], [place] [address] Dec, [facility] [address] [id number] [address] [place] [address], [place] [address] November, [facility] [address] [id number] [address] [place] [address], [place] [address] Oct, [facility] [address] [id number] [address] [place] [address], [place] [address] Oct, [facility] [address] [id number] [address] [place] [address], [place] [address] Oct, [facility] [address] [id number] [address] [place] [address], [place] [id number] Oct, [facility] [address] [id number] [address] [place] [address], [place] [address] Sep, [facility] [address] [id number] [address] [place] [address], [place] [address] Sep, [facility] [address] [id number] [address] [place] [address], [place] [address] Sep, [facility] [address] [id number] [address] [place] [address], [place] [address] Jun, [facility] [address] [id number] [address] [place] [address], [place] [address] Jun, [facility] [address] [id number] [address] [place] [address], [place] [address] May, [facility] [address] [id number] [address] [place] [address], [place] [address] 14 Jan, 2011 [facility] [address] [id number] [address] [place] [id number] November, [facility] [address] [id number] [address] [place] [id number] 14 Oct, 2010 [facility] [address] [id number] [address] [place] [id number] 16 Sep, 2010 [facility] [address] [id number] [address] [place] [id number] 30 May, 2010 [facility] [address] [id number] [address] [place] [id number] Jul, [facility] [address] [id number] [address] [place] [id number] Jun, [facility] [address] [id number] [address] [place] [address] Jun, [facility] [address] [id number] [address] [place] [id number] Jun, [facility] [address] [id number] [address] [place] [id number] Jun, [facility] [address] [id number] [address] [place] [id number] May, [facility] [address] [id number] [address] [place] [id number] May, [facility] [address] [id number] [address] [place] [id number] Apr, [facility] [address] [id number] [address] [place] [id number] Apr, [facility] [address] [id number] [address] [place] [id number] Apr, IMMUNIZATIONS No Known Immunizations SOCIAL HISTORY Never Assessed REASON FOR VISIT EMR-[facility] [place] PLAN OF CARE VITAL SIGNS MEDICATIONS [...] right 06/1996 Surgical History multiple knee injections ([id number]) Surgical History left knee replacement 06/11 Hospitalization History Knee surgery- x 3 days 06/11
--- OUTSIDE RECORDS SUMMARY | 2019-12-16 20:37 | XMS REPORT ---
Author Author Patti Guzman Doctor Organization [facility] Address Unknown Phone Unavailable Care Team Providers Care Egg Packer Name Role Phone Migration, Doctor Unavailable Unavailable PROBLEMS Type Condition ICD9-CM Code SKH95-OU Code Onset Dates Condition S tatus SNOMED Code Problem Drug abuse counseling and surveillance of drug abuser Z71.51 Active 422041185 Problem Joint pain M25.50 Active 09637022 Problem ADD (attention deficit disorder) F90.0 Active 861783478 Problem Manic bipolar I disorder in partial remission F31. 73 Active 89989984 Problem Edema, unspecified type R60.9 Active 147204192 Problem Episode of recurrent major d epressive disorder, unspecified depression episode severity F33.9 Active 534879291 Problem ADD (attention deficit disorder) without hyperactivity F98.8 Active 66920800 Problem Social anxiety disorder F40.10 Active 39100292 Problem Carpal tunnel syndrome on left G56.02 Active [id number] Problem Insomnia G47.00 Active 292395575 Problem Venous insufficiency (chronic) (peripheral) I87.2 Active [id number] Problem Other chronic pain G89.29 Active 8 0000051 Problem Stimulant abuse F15.10 Active 4415 94205 Problem Bipolar II disorder F31.81 Active 29125397 ALLERGIES No Information ENCOUNTERS Encounter Location Date Diagnosis [place] [id number] [facility] [id number] [address] [place] [address] Oct, [facility] [address] [facility] [id number] [address] [place] [address] May, Screening for lipid disorder s Z13.220 [facility] [address] [place] [id number] [address] [place] [address] May, Carpal tunnel syndrome on le ft G56.02 ; Social anxiety disorder F40.10 and Screening for lipid disorders Z13.220 [place] [address] [facility] [id number] [address] [place] [address] Apr, Bipolar II disorder F31.81 ; Social anxiety disorder F40.10 ; ADD (attention deficit disorder) without hyperactivity F98.8 and BMI 45.0-49.9, adult Z68.42 [place] [address] [facility] [id number] [address] [place] [address] Mar, [place] [address] [facility] [id number] [address] [place] [address] 17 Feb, 2018 BMI 45.0-49.9, adult Z68.42 ; Carpal tunnel syndrome on left G56.02 and Social anxiety disorder F40.10 [place] [address] [facility] [id number] [address] [place] [address] Jan, Bipolar II disorder F31.81 ; ADD (attention deficit disorder) without hyperactivity F98.8 ; Social anxiety disorder F40.10 and Stimulant abuse F15.10 [place] [address] [place] [id number] [place] [address] Dec, Episode of recurrent major d epressive disorder, unspecified depression episode severity F33.9 ; Other chronic pain G89.29 ; Radiculopathy, lumbar region M54.16 ; Edema of lower extremity R60.0 and BMI 45.0-49.9, adult Z68.42 [place] [address] [place] [id number] [address] [place] [address] Jun, [place] [address] [place] [id number] [address] [place] [address] Jan, Joint pain M25.50 [place] [address] [place] [id number] [address] [place] [address] Jan, Wellness examination Z00.00 ; Pain in right knee M25.561 ; Pain in left knee M25.562 ; Edema, unspecified type R60.9 and Drug abuse counseling and surveillance of drug abuser Z71.51 [place] [address] [place] [id number] [address] [place] [address] November, [place] [address] [facility] [id number] [address] [place] [address] Oct, [facility] [address] [facility] [id number] [address] [place] [address] Oct, ADD (attention deficit disor josselin) F90.0 ; Social anxiety disorder F40.10 and Manic bipolar I disorder in partial remission F31.73 [facility] [address] [facility] [id number] [address] [place] [address] Aug, [facility] [address] [facility] [id number] [address] [place] [address] Aug, [facility] [address] [facility] [id number] [address] [place] [address] Aug, [facility] [address] [place] [id number] [address] [place] [address] Jul, [facility] [address] [facility] [id number] [address] [place] [address] Jul, [facility] [address] [facility] [id number] [address] [place] [address] Jul, [facility] [address] [place] [id number] [address] [place] [address] Jun, [facility] [address] [place] [id number] [address] [place] [address] Jun, [facility] [address] [facility] [id number] [address] [place] [address] Jun, [facility] [address] [facility] [id number] [address] [place] [address] Jun, [facility] [address] [place] [id number] [address] [place] [address] May, Joint pain M25.50 ; ADD (att ention deficit disorder) F90.0 ; Edema R60.9 and Insomnia G47.00 [facility] [address] [facility] [id number] [address] [place] [address] May, [facility] [address] [facility] [id number] [address] [place] [address] May, [facility] [address] [facility] [id number] [address] [place] [address] May, [facility] [address] [facility] [id number] [address] [place] [address] May, Left wrist pain M25.532 ; Si nusitis J32.9 and Drug abuse counseling and surveillance of drug abuser Z71.51 [facility] [address] [facility] [id number] [address] [place] [address] Apr, [facility] [address] [facility] [id number] [address] [place] [address] Apr, [facility] [address] [facility] [id number] [address] [place] [address] Apr, [facility] [address] [facility] [id number] [address] [place] [address] Apr, [facility] [address] [facility] [id number] [address] [place] [address] Apr, [facility] [address] [facility] [id number] [address] [place] [address] Apr, [facility] [address] [facility] [id number] [address] [place] [address] Apr, [facility] [address] [facility] [id number] [address] [place] [address] Mar, Unspecified venous (peripher al) insufficiency 459.81 ; Bipolar I disorder, most recent episode (or current) manic, moderate 296.42 ; Social phobia 300.23 ; Attention deficit disorder of childhood without mention of hyperactivity 314.00 ; Pain in joint, lower leg 719.46 ; Thrombosis 453.9 and Chronic pain 338.29 [facility] [address] [facility] [id number] [address] [place] [address] Mar, [facility] [address] [id number] [address] [place] [address] 18 Mar, 2015 [facility] [address] [id number] [address] [place] [address] 18 Mar, 2015 [facility] [address] [facility] [id number] [address] [place] [address] Mar, [facility] [address] [facility] [id number] [address] [place] [address] Mar, [facility] [address] [facility] [id number] [address] [place] [address] Mar, [facility] [address] [facility] [id number] [address] [place] [address] Mar, Manic bipolar I disorder in partial remission 296.45 ; Social phobia 300.23 and Attention deficit disorder of childhood without mention of hyperactivity 314.00 [facility] [address] [facility] [id number] [address] [place] [address] Mar, [facility] [address] [facility] [id number] [address] [place] [address] Feb, [facility] [address] [facility] [id number] [address] [place] [address] Feb, Thrombosis 453.9 ; Unspecifi ed venous (peripheral) insufficiency 459.81 ; Bipolar I disorder, most recent episode (or current) manic, moderate 296.42 ; Social phobia 300.23 ; Attention deficit disorder of childhood without mention of hyperactivity 314.00 ; Pain in joint, lower leg 719.46 and Edema 782.3 [facility] [address] [facility] [id number] [address] [place] [address] Feb, [facility] [address] [facility] [id number] [address] [place] [address] Feb, Social phobia 300.23 ; Atten tion deficit disorder of childhood without mention of hyperactivity 314.00 and Bipolar I disorder, most recent episode manic, in partial remission 296.45 [facility] [address] [facility] [id number] [address] [place] [address] Jan, [facility] [address] [facility] [id number] [address] [place] [address] Jan, [facility] [address] [facility] [id number] [address] [place] [address] Jan, Unspecified venous (peripher al) insufficiency 459.81 and Thrombophlebitis 451.9 [facility] [address] [place] [id number] [address] [place] [address] Jan, [facility] [address] [facility] [id number] [address] [place] [address] Dec, Headache 784.0 and Back pain 724.5 [facility] [address] [place] [id number] [address] [place] [address] Dec, [facility] [address] [place] [id number] [place] [address] Dec, Bipolar I disorder, most rec ent episode (or current) manic, moderate 296.42 ; Attention deficit disorder of childhood without mention of hyperactivity 314.00 and Social phobia 300.23 [facility] [address] [place] [id number] [address] [place] [address] November, [facility] [address] [place] [id number] [address] [place] [address] November, [facility] [address] [facility] [id number] [address] [place] [address] Oct, [facility] [address] [place] [id number] [address] [place] [address] Oct, [facility] [address] [place] [id number] [address] [place] [address] Sep, [facility] [address] [place] [id number] [address] [place] [address] Sep, [facility] [address] [place] [id number] [address] [place] [address] Aug, 2014 [facility] [address] [id number] [address] [place] [address], [place] [address] Aug, 2014 [facility] [address] [id number] [address] [place] [address], [place] [address] Aug, 2014 [facility] [address] [id number] [address] [place] [address], [place] [address] Aug, 2014 [facility] [address] [id number] [address] [place] [address], [place] [address] Aug, 2014 [facility] [address] [id number] [address] [place] [address], [place] [address] Aug, [facility] [address] [id number] [address] [place] [address], [place] [address] Aug, [facility] [address] [id number] [address] [place] [address], [place] [address] Jul, [facility] [address] [id number] [address] [place] [address], [place] [address] Jul, [facility] [address] [id number] [address] [place] [address], [place] [address] Jun, [facility] [address] [id number] [address] [place] [address], [place] [address] Jun, [facility] [address] [id number] [address] [place] [address], [place] [address] May, [facility] [address] [id number] [address] [place] [address], [place] [address] May, [facility] [address] [id number] [address] [place] [address], [place] [address] May, [facility] [address] [id number] [address] [place] [address], [place] [address] May, [facility] [address] [id number] [address] [place] [address] May, [facility] [address] [id number] [address] [place] [address], [place] [address] May, [facility] [address] [id number] [address] [place] [address], [place] [address] Apr, [facility] [address] [id number] [address] [place] [address], [place] [address] Apr, [facility] [address] [id number] [address] [place] [address], [place] [address] Apr, [facility] [address] [id number] [address] [place] [address], [place] [address] Apr, [facility] [address] [id number] [address] [place] [address], [place] [address] 22 Mar, 2014 [facility] [address] [id number] [address] [place] [address], [place] [address] 22 Mar, 2014 [facility] [address] [id number] [address] [place] [address], [place] [address] 19 Mar, 2013 [facility] [address] [id number] [address] [place] [address], [place] [address] 16 Mar, 2013 [facility] [address] [id number] [address] [place] [address], [place] [address] 16 Mar, 2013 [facility] [address] [id number] [address] [place] [address], [place] [address] 15 Mar, 2013 [facility] [address] [id number] [address] [place] [address], [place] [address] 11 Sep, 2013 [facility] [address] [id number] [address] [place] [address], [place] [address] 11 Sep, 2013 [facility] [address] [id number] [address] [place] [address], [place] [address] 11 Sep, 2013 [facility] [address] [id number] [address] [place] [address], [place] [address] 11 Mar, 2013 [facility] [address] [id number] [address] [place] [address], [place] [address] Mar, 2013 [facility] [address] [id number] [address] [place] [address], [place] [address] Mar, 2013 [facility] [address] [id number] [address] [place] [address], [place] [address] Mar, [facility] [address] [id number] [address] [place] [address], [place] [address] Mar, [facility] [address] [id number] [address] [place] [address], [place] [address] Mar, [facility] [address] [id number] [address] [place] [address], [place] [address] Feb, [facility] [address] [id number] [address] [place] [address], [place] [address] Feb, [facility] [address] [id number] [address] [place] [address], [place] [address] Feb, [facility] [address] [id number] [address] [place] [address], [place] [address] Feb, [facility] [address] [id number] [address] [place] [address], [place] [address] Feb, [facility] [address] [id number] [address] [place] [address], [place] [address] Feb, [facility] [address] [id number] [address] [place] [address], [place] [address] Feb, [facility] [address] [id number] [address] [place] [address], [place] [address] Feb, [facility] [address] [id number] [address] [place] [address], [place] [address] Feb, [facility] [address] [id number] [address] [place] [address], [place] [address] Feb, [facility] [address] [id number] [address] [place] [address], [place] [address] Feb, [facility] [address] [id number] [address] [place] [address], [place] [address] Feb, [facility] [address] [id number] [address] [place] [address], [place] [address] Feb, [facility] [address] [id number] [address] [place] [address], [place] [address] Feb, [facility] [address] [id number] [address] [place] [address], [place] [address] Jan, [facility] [address] [id number] [address] [place] [address], [place] [address] Jan, [facility] [address] [id number] [address] [place] [address], [place] [address] Jan, [facility] [address] [id number] [address] [place] [address], [place] [address] Jan, [facility] [address] [id number] [address] [place] [address], [place] [address] Jan, [facility] [address] [id number] [address] [place] [address], [place] [address] Jan, [facility] [address] [id number] [address] [place] [address], [place] [address] Jan, [facility] [address] [id number] [address] [place] [address], [place] [address] Dec, [facility] [address] [id number] [address] [place] [address], [place] [address] Dec, [facility] [address] [id number] [address] [place] [address], [place] [address] Dec, [facility] [address] [id number] [address] [place] [address], [place] [address] Dec, [facility] [address] [id number] [address] [place] [address], [place] [address] Dec, [facility] [address] [id number] [address] [place] [address], [place] [address] Dec, [facility] [address] [id number] [facility] [place] [address] Dec, [facility] [address] [id number] [address] [place] [address], [place] [address] Dec, [facility] [address] [id number] [address] [place] [address], [place] [address] Dec, [facility] [address] [id number] [address] [place] [address], [place] [address] November, [facility] [address] [id number] [address] [place] [address], [place] [address] November, [facility] [address] [id number] [address] [place] [address], [place] [address] November, [facility] [address] [id number] [address] [place] [address], [place] [address] November, [facility] [address] [id number] [address] [place] [address], [place] [address] November, [facility] [address] [id number] [address] [place] [address], [place] [address] November, [facility] [address] [id number] [address] [place] [address], [place] [address] November, [facility] [address] [id number] [address] [place] [address], [place] [address] November, [facility] [address] [id number] [address] [place] [address], [place] [address] November, [facility] [address] [id number] [address] [place] [address], [place] [address] November, [facility] [address] [id number] [address] [place] [address], [place] [address] November, [facility] [address] [id number] [address] [place] [address], [place] [address] November, [facility] [address] [id number] [address] [place] [address], [place] [address] November, [facility] [address] [id number] [address] [place] [address], [place] [address] November, [facility] [address] [id number] [address] [place] [address], [place] [address] Oct, [facility] [address] [id number] [address] [place] [address], [place] [address] Oct, [facility] [address] [id number] [address] [place] [address], [place] [address] Oct, [facility] [address] [id number] [address] [place] [address], [place] [address] Oct, [facility] [address] [id number] [address] [place] [address], [place] [address] Oct, [facility] [address] [id number] [address] [place] [address], [place] [address] Oct, [facility] [address] [id number] [address] [place] [address], [place] [address] Sep, [facility] [address] [id number] [address] [place] [address], [place] [address] Sep, [facility] [address] [id number] [address] [place] [address], [place] [address] Sep, [facility] [address] [id number] [address] [place] [address], [place] [address] Sep, [facility] [address] [id number] [address] [place] [address], [place] [address] Aug, [facility] [address] [id number] [address] [place] [address], [place] [address] Aug, [facility] [address] [id number] [address] [place] [address], [place] [address] Aug, [facility] [address] [id number] [address] [place] [address], [place] [address] Aug, [facility] [address] [id number] [address] [place] [address], [place] [address] Jul, [facility] [address] [id number] [address] [place] [address], [place] [address] Jul, [facility] [address] [id number] [address] [place] [address], [place] [address] Jul, [facility] [address] [id number] [address] [place] [address], [place] [address] Jul, [facility] [address] [id number] [address] [place] [address], [place] [address] Jul, [facility] [address] [id number] [address] [place] [address], [place] [address] Jul, [facility] [address] [id number] [address] [place] [address], [place] [address] Jul, [facility] [address] [id number] [address] [place] [address], [place] [address] Jun, [facility] [address] [id number] [address] [place] [address], [place] [address] Jun, [facility] [address] [id number] [address] [place] [address], [place] [address] Jun, [facility] [address] [id number] [address] [place] [address], [place] [address] 17 Jun, 2013 [facility] [address] [id number] [address] [place] [address], [place] [address] Jun, [facility] [address] [id number] [address] [place] [address], [place] [address] Jun, [facility] [address] [id number] [address] [place] [address], [place] [address] May, [facility] [address] [id number] [address] [place] [address], [place] [address] May, [facility] [address] [id number] [address] [place] [address], [place] [address] 15 Apr, 2013 [facility] [address] [id number] [address] [place] [address], [place] [address] 15 Apr, 2013 [facility] [address] [id number] [address] [place] [address], [place] [address] 10 Apr, 2013 [facility] [address] [id number] [address] [place] [address], [place] [address] 10 Apr, 2013 [facility] [address] [id number] [address] [place] [address], [place] [address] 08 Apr, 2013 [facility] [address] [id number] [address] [place] [address], [place] [address] 24 Mar, 2013 [facility] [address] [id number] [address] [place] [address], [place] [address] 19 Mar, 2013 [facility] [address] [id number] [address] [place] [address], [place] [address] Mar, [facility] [address] [id number] [address] [place] [address], [place] [address] Mar, [facility] [address] [id number] [address] [place] [address], [place] [address] Feb, [facility] [address] [id number] [address] [place] [address], [place] [address] Feb, [facility] [address] [id number] [address] [place] [address], [place] [address] Jan, [facility] [address] [id number] [address] [place] [address], [place] [address] Jan, [facility] [address] [id number] [address] [place] [address], [place] [address] Jan, [facility] [address] [id number] [address] [place] [address], [place] [address] Jan, [facility] [address] [id number] [address] [place] [address], [place] [address] Dec, [facility] [address] [id number] [address] [place] [address], [place] [address] 15 Dec, 2012 [facility] [address] [id number] [address] [place] [address], [place] [address] 07 Dec, 2012 [facility] [address] [id number] [address] [place] [address], [place] [address] 06 Dec, 2012 [facility] [address] [id number] [address] [place] [address], [place] [address] 16 Nov, 2012 [facility] [address] [id number] [address] [place] [address], [place] [address] November, [facility] [address] [id number] [address] [place] [address], [place] [address] Oct, [facility] [address] [id number] [address] [place] [address], [place] [address] Sep, [facility] [address] [id number] [address] [place] [address], [place] [address] Sep, [facility] [address] [id number] [address] [place] [address], [place] [address] 14 Aug, 2012 [facility] [address] [id number] [address] [place] [address], [place] [address] Aug, [facility] [address] [id number] [address] [place] [address], [place] [address] Jul, [facility] [address] [id number] [address] [place] [address], [place] [address] Jul, [facility] [address] [id number] [address] [place] [address], [place] [address] Jul, [facility] [address] [id number] [address] [place] [address], [place] [address] Jun, [facility] [address] [id number] [address] [place] [address], [place] [address] Jun, [facility] [address] [id number] [address] [place] [address], [place] [address] Jun, [facility] [address] [id number] [address] [place] [address], [place] [address] 15 Jun, 2012 [facility] [address] [id number] [address] [place] [address], [place] [address] May, [facility] [address] [id number] [address] [place] [address], [place] [address] May, [facility] [address] [id number] [address] [place] [address], [place] [address] May, [facility] [address] [id number] [address] [place] [address], [place] [address] May, [facility] [address] [id number] [address] [place] [address], [place] [address] May, [facility] [address] [id number] [address] [place] [address], [place] [address] May, [facility] [address] [id number] [address] [place] [address] May, [facility] [address] [id number] [address] [place] [address], [place] [address] 15 Apr, 2012 [facility] [address] [id number] [address] [place] [address] 15 Apr, 2012 [facility] [address] [id number] [address] [place] [address] 15 Apr, 2012 [facility] [address] [id number] [address] [place] [address] Apr, [facility] [address] [id number] [address] [place] [address], [place] [address] Apr, [facility] [address] [id number] [address] [place] [address] Apr, [facility] [address] [id number] [address] [place] [address] Apr, [facility] [address] [id number] [address] [place] [address], [place] [address] Apr, [facility] [address] [id number] [address] [place] [address], [place] [address] Jan, [facility] [address] [id number] [address] [place] [address], [place] [address] Jan, [facility] [address] [id number] [address] [place] [address], [place] [address] Dec, [facility] [address] [id number] [address] [place] [address], [place] [address] November, [facility] [address] [id number] [address] [place] [address], [place] [address] Oct, [facility] [address] [id number] [address] [place] [address], [place] [address] Oct, [facility] [address] [id number] [address] [place] [address], [place] [address] Oct, [facility] [address] [id number] [address] [place] [address], [place] [address] Oct, [facility] [address] [id number] [address] [place] [address], [place] [address] Sep, [facility] [address] [id number] [address] [place] [address], [place] [address] Sep, [facility] [address] [id number] [address] [place] [address], [place] [address] Sep, [facility] [address] [id number] [address] [place] [address], [place] [address] Jun, [facility] [address] [id number] [address] [place] [address], [place] [address] Jun, [facility] [address] [id number] [address] [place] [address], [place] [address] May, [facility] [address] [id number] [address] [place] [address], [place] [address] 14 Jan, 2011 [facility] [address] [id number] [address] [place] [address] November, [facility] [address] [id number] [address] [place] [address] 14 Oct, 2010 [facility] [address] [id number] [address] [place] [address] 16 Sep, 2010 [facility] [address] [id number] [address] [place] [address] 30 May, 2010 [facility] [address] [id number] [address] [place] [address] Jul, [facility] [address] [id number] [address] [place] [address] Jun, [facility] [address] [id number] [address] [place] [address] Jun, [facility] [address] [id number] [address] [place] [address] Jun, [facility] [address] [id number] [address] [place] [address] Jun, [facility] [address] [id number] [address] [place] [address] May, [facility] [address] [id number] [address] [place] [address] May, [facility] [address] [id number] [address] [place] [address] Apr, [facility] [address] [id number] [address] [place] [address] Apr, [facility] [address] [id number] [address] [place] [address] Apr, IMMUNIZATIONS No Known Immunizations SOCIAL HISTORY Never Assessed REASON FOR VISIT EMR-[facility] PLAN OF CARE VITAL SIGNS [...] right 06/1996 Surgical History multiple knee injections ([id number]) Surgical History left knee replacement 06/11 Hospitalization History Knee surgery- x 3 days 06/11
--- OUTSIDE RECORDS SUMMARY | 2019-12-16 20:37 | XMS REPORT ---
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 73 Active 66082914 Problem Edema, unspecified type R60.9 Active 531410065 Problem Episode of recurrent major d epressive disorder, unspecified depression episode severity F33.9 Active 015112591 Problem ADD (attention deficit disorder) without hyperactivity F98.8 Active 04565803 Problem Social anxiety disorder F40.10 Active 01199472 Problem Carpal tunnel syndrome on left G56.02 Active [id number] Problem Insomnia G47.00 Active 080918124 Problem Venous insufficiency (chronic) (peripheral) I87.2 Active [id number] Problem Other chronic pain G89.29 Active 8 0359647 Problem Stimulant abuse F15.10 Active 4415 65503 Problem Bipolar II disorder F31.81 Active 43861136 ALLERGIES No Information ENCOUNTERS Encounter Location Date Diagnosis [place] [id number] [facility] [id number] [address] [place] [id number] Oct, [facility] [address] [facility] [id number] [address] [place] [address] May, Screening for lipid disorder s Z13.220 [facility] [address] [place] [id number] [address] [place] [address] May, Carpal tunnel syndrome on le ft G56.02 ; Social anxiety disorder F40.10 and Screening for lipid disorders Z13.220 [place] [address] [facility] [id number] [address] [place] [address] Apr, Bipolar II disorder F31.81 ; Social anxiety disorder F40.10 ; ADD (attention deficit disorder) without hyperactivity F98.8 and BMI 45.0-49.9, adult Z68.42 [place] [address] [facility] [id number] [address] [place] [address] Mar, [place] [address] [facility] [id number] [address] [place] [address] 17 Feb, 2018 BMI 45.0-49.9, adult Z68.42 ; Carpal tunnel syndrome on left G56.02 and Social anxiety disorder F40.10 [place] [address] [facility] [id number] [address] [place] [address] Jan, Bipolar II disorder F31.81 ; ADD (attention deficit disorder) without hyperactivity F98.8 ; Social anxiety disorder F40.10 and Stimulant abuse F15.10 [place] [address] [place] [id number] [place] [address] Dec, Episode of recurrent major d epressive disorder, unspecified depression episode severity F33.9 ; Other chronic pain G89.29 ; Radiculopathy, lumbar region M54.16 ; Edema of lower extremity R60.0 and BMI 45.0-49.9, adult Z68.42 [place] [address] [place] [id number] [address] [place] [address] Jun, [place] [address] [place] [id number] [address] [place] [address] Jan, Joint pain M25.50 [place] [address] [place] [id number] [address] [place] [address] Jan, Wellness examination Z00.00 ; Pain in right knee M25.561 ; Pain in left knee M25.562 ; Edema, unspecified type R60.9 and Drug abuse counseling and surveillance of drug abuser Z71.51 [place] [address] [place] [id number] [address] [place] [address] November, [place] [address] [facility] [id number] [address] [place] [address] Oct, [facility] [address] [facility] [id number] [address] [place] [address] Oct, ADD (attention deficit disor josselin) F90.0 ; Social anxiety disorder F40.10 and Manic bipolar I disorder in partial remission F31.73 [facility] [address] [facility] [id number] [address] [place] [address] Aug, [facility] [address] [facility] [id number] [address] [place] [address] Aug, [facility] [address] [facility] [id number] [address] [place] [address] Aug, [facility] [address] [place] [id number] [address] [place] [address] Jul, [facility] [address] [facility] [id number] [address] [place] [address] Jul, [facility] [address] [facility] [id number] [address] [place] [address] Jul, [facility] [address] [place] [id number] [address] [place] [address] Jun, [facility] [address] [place] [id number] [address] [place] [address] Jun, [facility] [address] [facility] [id number] [address] [place] [address] Jun, [facility] [address] [facility] [id number] [address] [place] [address] Jun, [facility] [address] [place] [id number] [address] [place] [address] May, Joint pain M25.50 ; ADD (att ention deficit disorder) F90.0 ; Edema R60.9 and Insomnia G47.00 [facility] [address] [facility] [id number] [address] [place] [address] May, [facility] [address] [facility] [id number] [address] [place] [address] May, [facility] [address] [facility] [id number] [address] [place] [address] May, [facility] [address] [facility] [id number] [address] [place] [address] May, Left wrist pain M25.532 ; Si nusitis J32.9 and Drug abuse counseling and surveillance of drug abuser Z71.51 [facility] [address] [facility] [id number] [address] [place] [address] Apr, [facility] [address] [facility] [id number] [address] [place] [address] Apr, [facility] [address] [facility] [id number] [address] [place] [address] Apr, [facility] [address] [facility] [id number] [address] [place] [address] Apr, [facility] [address] [facility] [id number] [address] [place] [address] Apr, [facility] [address] [facility] [id number] [address] [place] [address] Apr, [facility] [address] [facility] [id number] [address] [place] [address] Apr, [facility] [address] [facility] [id number] [address] [place] [address] Mar, Unspecified venous (peripher al) insufficiency 459.81 ; Bipolar I disorder, most recent episode (or current) manic, moderate 296.42 ; Social phobia 300.23 ; Attention deficit disorder of childhood without mention of hyperactivity 314.00 ; Pain in joint, lower leg 719.46 ; Thrombosis 453.9 and Chronic pain 338.29 [facility] [address] [facility] [id number] [address] [place] [address] Mar, [facility] [address] [id number] [address] [place] [id number] 18 Mar, 2015 [facility] [address] [id number] [address] [place] [phone] 18 Mar, 2015 [facility] [address] [facility] [id number] [address] [place] [address] Mar, [facility] [address] [facility] [id number] [address] [place] [address] Mar, [facility] [address] [facility] [id number] [address] [place] [address] Mar, [facility] [address] [facility] [id number] [address] [place] [address] Mar, Manic bipolar I disorder in partial remission 296.45 ; Social phobia 300.23 and Attention deficit disorder of childhood without mention of hyperactivity 314.00 [facility] [address] [facility] [id number] [address] [place] [address] Mar, [facility] [address] [facility] [id number] [address] [place] [address] Feb, [facility] [address] [facility] [id number] [address] [place] [address] Feb, Thrombosis 453.9 ; Unspecifi ed venous (peripheral) insufficiency 459.81 ; Bipolar I disorder, most recent episode (or current) manic, moderate 296.42 ; Social phobia 300.23 ; Attention deficit disorder of childhood without mention of hyperactivity 314.00 ; Pain in joint, lower leg 719.46 and Edema 782.3 [facility] [address] [facility] [id number] [address] [place] [address] Feb, [facility] [address] [facility] [id number] [address] [place] [address] Feb, Social phobia 300.23 ; Atten tion deficit disorder of childhood without mention of hyperactivity 314.00 and Bipolar I disorder, most recent episode manic, in partial remission 296.45 [facility] [address] [facility] [id number] [address] [place] [address] Jan, [facility] [address] [facility] [id number] [address] [place] [address] Jan, [facility] [address] [facility] [id number] [address] [place] [address] Jan, Unspecified venous (peripher al) insufficiency 459.81 and Thrombophlebitis 451.9 [facility] [address] [place] [id number] [address] [place] [address] Jan, [facility] [address] [facility] [id number] [address] [place] [address] Dec, Headache 784.0 and Back pain 724.5 [facility] [address] [place] [id number] [address] [place] [address] Dec, [facility] [address] [place] [id number] [place] [address] Dec, Bipolar I disorder, most rec ent episode (or current) manic, moderate 296.42 ; Attention deficit disorder of childhood without mention of hyperactivity 314.00 and Social phobia 300.23 [facility] [address] [place] [id number] [address] [place] [address] November, [facility] [address] [place] [id number] [address] [place] [address] November, [facility] [address] [facility] [id number] [address] [place] [address] Oct, [facility] [address] [place] [id number] [address] [place] [address] Oct, [facility] [address] [place] [id number] [address] [place] [phone] Sep, [facility] [address] [place] [id number] [address] [place] [address] Sep, [facility] [address] [place] [id number] [address] [place] [phone] Aug, 2014 [facility] [address] [id number] [address] [place] [address], [place] [address] Aug, 2014 [facility] [address] [id number] [address] [place] [address], [place] [address] Aug, 2014 [facility] [address] [id number] [address] [place] [address], [place] [address] Aug, 2014 [facility] [address] [id number] [address] [place] [address], [place] [address] Aug, 2014 [facility] [address] [id number] [address] [place] [address], [place] [address] Aug, [facility] [address] [id number] [address] [place] [address], [place] [address] Aug, [facility] [address] [id number] [address] [place] [address], [place] [address] Jul, [facility] [address] [id number] [address] [place] [address], [place] [address] Jul, [facility] [address] [id number] [address] [place] [address], [place] [address] Jun, [facility] [address] [id number] [address] [place] [address], [place] [address] Jun, [facility] [address] [id number] [address] [place] [address], [place] [address] May, [facility] [address] [id number] [address] [place] [address], [place] [address] May, [facility] [address] [id number] [address] [place] [address], [place] [address] May, [facility] [address] [id number] [address] [place] [address], [place] [address] May, [facility] [address] [id number] [address] [place] [id number] May, [facility] [address] [id number] [address] [place] [address], [place] [address] May, [facility] [address] [id number] [address] [place] [address], [place] [address] Apr, [facility] [address] [id number] [address] [place] [address], [place] [address] Apr, [facility] [address] [id number] [address] [place] [address], [place] [address] Apr, [facility] [address] [id number] [address] [place] [address], [place] [address] Apr, [facility] [address] [id number] [address] [place] [address], [place] [address] 22 Mar, 2014 [facility] [address] [id number] [address] [place] [address], [place] [address] 22 Mar, 2014 [facility] [address] [id number] [address] [place] [address], [place] [address] 19 Mar, 2013 [facility] [address] [id number] [address] [place] [address], [place] [address] 16 Mar, 2013 [facility] [address] [id number] [address] [place] [address], [place] [address] 16 Mar, 2013 [facility] [address] [id number] [address] [place] [address], [place] [address] 15 Mar, 2013 [facility] [address] [id number] [address] [place] [address], [place] [address] 11 Sep, 2013 [facility] [address] [id number] [address] [place] [address], [place] [address] 11 Sep, 2013 [facility] [address] [id number] [address] [place] [address], [place] [address] 11 Sep, 2013 [facility] [address] [id number] [address] [place] [address], [place] [address] 11 Mar, 2013 [facility] [address] [id number] [address] [place] [address], [place] [address] Mar, 2013 [facility] [address] [id number] [address] [place] [address], [place] [address] Mar, 2013 [facility] [address] [id number] [address] [place] [address], [place] [address] Mar, [facility] [address] [id number] [address] [place] [address], [place] [address] Mar, [facility] [address] [id number] [address] [place] [address], [place] [address] Mar, [facility] [address] [id number] [address] [place] [address], [place] [address] Feb, [facility] [address] [id number] [address] [place] [address], [place] [address] Feb, [facility] [address] [id number] [address] [place] [address], [place] [address] Feb, [facility] [address] [id number] [address] [place] [address], [place] [address] Feb, [facility] [address] [id number] [address] [place] [address], [place] [address] Feb, [facility] [address] [id number] [address] [place] [address], [place] [address] Feb, [facility] [address] [id number] [address] [place] [address], [place] [address] Feb, [facility] [address] [id number] [address] [place] [address], [place] [address] Feb, [facility] [address] [id number] [address] [place] [address], [place] [address] Feb, [facility] [address] [id number] [address] [place] [address], [place] [address] Feb, [facility] [address] [id number] [address] [place] [address], [place] [address] Feb, [facility] [address] [id number] [address] [place] [address], [place] [address] Feb, [facility] [address] [id number] [address] [place] [address], [place] [address] Feb, [facility] [address] [id number] [address] [place] [address], [place] [address] Feb, [facility] [address] [id number] [address] [place] [address], [place] [address] Jan, [facility] [address] [id number] [address] [place] [address], [place] [address] Jan, [facility] [address] [id number] [address] [place] [address], [place] [address] Jan, [facility] [address] [id number] [address] [place] [address], [place] [address] Jan, [facility] [address] [id number] [address] [place] [address], [place] [address] Jan, [facility] [address] [id number] [address] [place] [address], [place] [address] Jan, [facility] [address] [id number] [address] [place] [address], [place] [address] Jan, [facility] [address] [id number] [address] [place] [address], [place] [address] Dec, [facility] [address] [id number] [address] [place] [address], [place] [address] Dec, [facility] [address] [id number] [address] [place] [address], [place] [address] Dec, [facility] [address] [id number] [address] [place] [address], [place] [address] Dec, [facility] [address] [id number] [address] [place] [address], [place] [address] Dec, [facility] [address] [id number] [address] [place] [address], [place] [address] Dec, [facility] [address] [id number] [facility] [place] [address] Dec, [facility] [address] [id number] [address] [place] [address], [place] [address] Dec, [facility] [address] [id number] [address] [place] [address], [place] [address] Dec, [facility] [address] [id number] [address] [place] [address], [place] [address] November, [facility] [address] [id number] [address] [place] [address], [place] [address] November, [facility] [address] [id number] [address] [place] [address], [place] [address] November, [facility] [address] [id number] [address] [place] [address], [place] [address] November, [facility] [address] [id number] [address] [place] [address], [place] [address] November, [facility] [address] [id number] [address] [place] [address], [place] [address] November, [facility] [address] [id number] [address] [place] [address], [place] [address] November, [facility] [address] [id number] [address] [place] [address], [place] [address] November, [facility] [address] [id number] [address] [place] [address], [place] [address] November, [facility] [address] [id number] [address] [place] [address], [place] [address] November, [facility] [address] [id number] [address] [place] [address], [place] [address] November, [facility] [address] [id number] [address] [place] [address], [place] [address] November, [facility] [address] [id number] [address] [place] [address], [place] [address] November, [facility] [address] [id number] [address] [place] [address], [place] [address] November, [facility] [address] [id number] [address] [place] [address], [place] [address] Oct, [facility] [address] [id number] [address] [place] [address], [place] [address] Oct, [facility] [address] [id number] [address] [place] [address], [place] [address] Oct, [facility] [address] [id number] [address] [place] [address], [place] [address] Oct, [facility] [address] [id number] [address] [place] [address], [place] [address] Oct, [facility] [address] [id number] [address] [place] [address], [place] [address] Oct, [facility] [address] [id number] [address] [place] [address], [place] [address] Sep, [facility] [address] [id number] [address] [place] [address], [place] [address] Sep, [facility] [address] [id number] [address] [place] [address], [place] [address] Sep, [facility] [address] [id number] [address] [place] [address], [place] [address] Sep, [facility] [address] [id number] [address] [place] [address], [place] [address] Aug, [facility] [address] [id number] [address] [place] [address], [place] [address] Aug, [facility] [address] [id number] [address] [place] [address], [place] [address] Aug, [facility] [address] [id number] [address] [place] [address], [place] [address] Aug, [facility] [address] [id number] [address] [place] [address], [place] [address] Jul, [facility] [address] [id number] [address] [place] [address], [place] [address] Jul, [facility] [address] [id number] [address] [place] [address], [place] [address] Jul, [facility] [address] [id number] [address] [place] [address], [place] [address] Jul, [facility] [address] [id number] [address] [place] [address], [place] [address] Jul, [facility] [facility] [address] [id number] [address] [place] [address], [place] [address] Jul, [facility] [address] [id number] [address] [place] [address], [place] [address] Jul, [facility] [address] [id number] [address] [place] [address], [place] [address] Jun, [facility] [address] [id number] [address] [place] [address], [place] [address] Jun, [facility] [address] [id number] [address] [place] [address], [place] [address] Jun, [facility] [address] [id number] [address] [place] [address], [place] [address] 17 Jun, 2013 [facility] [address] [id number] [address] [place] [address], [place] [address] Jun, [facility] [address] [id number] [address] [place] [address], [place] [address] Jun, [facility] [address] [id number] [address] [place] [address], [place] [address] May, [facility] [address] [id number] [address] [place] [address], [place] [address] May, [facility] [address] [id number] [address] [place] [address], [place] [address] 15 Apr, 2013 [facility] [address] [id number] [address] [place] [address], [place] [address] 15 Apr, 2013 [facility] [address] [id number] [address] [place] [address], [place] [address] 10 Apr, 2013 [facility] [address] [id number] [address] [place] [address], [place] [address] 10 Apr, 2013 [facility] [address] [id number] [address] [place] [address], [place] [address] 08 Apr, 2013 [facility] [address] [id number] [address] [place] [address], [place] [address] 24 Mar, 2013 [facility] [address] [id number] [address] [place] [address], [place] [address] 19 Mar, 2013 [facility] [address] [id number] [address] [place] [address], [place] [address] Mar, [facility] [address] [id number] [address] [place] [address], [place] [address] Mar, [facility] [address] [id number] [address] [place] [address], [place] [address] Feb, [facility] [address] [id number] [address] [place] [address], [place] [address] Feb, [facility] [address] [id number] [address] [place] [address], [place] [address] Jan, [facility] [address] [id number] [address] [place] [address], [place] [address] Jan, [facility] [address] [id number] [address] [place] [address], [place] [address] Jan, [facility] [address] [id number] [address] [place] [address], [place] [address] Jan, [facility] [address] [id number] [address] [place] [address], [place] [address] Dec, [facility] [address] [id number] [address] [place] [address], [place] [address] 15 Dec, 2012 [facility] [address] [id number] [address] [place] [address], [place] [address] 07 Dec, 2012 [facility] [address] [id number] [address] [place] [address], [place] [address] 06 Dec, 2012 [facility] [address] [id number] [address] [place] [address], [place] [address] 16 Nov, 2012 [facility] [address] [id number] [address] [place] [address], [place] [address] November, [facility] [address] [id number] [address] [place] [address], [place] [address] Oct, [facility] [address] [id number] [address] [place] [address], [place] [address] Sep, [facility] [address] [id number] [address] [place] [address], [place] [address] Sep, [facility] [address] [id number] [address] [place] [address], [place] [address] 14 Aug, 2012 [facility] [address] [id number] [address] [place] [address], [place] [address] Aug, [facility] [address] [id number] [address] [place] [address], [place] [address] Jul, [facility] [address] [id number] [address] [place] [address], [place] [address] Jul, [facility] [address] [id number] [address] [place] [address], [place] [address] Jul, [facility] [address] [id number] [address] [place] [address], [place] [address] Jun, [facility] [address] [id number] [address] [place] [address], [place] [address] Jun, [facility] [address] [id number] [address] [place] [address], [place] [address] Jun, [facility] [address] [id number] [address] [place] [address], [place] [address] 15 Jun, 2012 [facility] [address] [id number] [address] [place] [address], [place] [address] May, [facility] [address] [id number] [address] [place] [address], [place] [address] May, [facility] [address] [id number] [address] [place] [address], [place] [address] May, [facility] [address] [id number] [address] [place] [address], [place] [address] May, [facility] [address] [id number] [address] [place] [address], [place] [address] May, [facility] [address] [id number] [address] [place] [address], [place] [address] May, [facility] [address] [id number] [address] [place] [address] May, [facility] [address] [id number] [address] [place] [address], [place] [address] 15 Apr, 2012 [facility] [address] [id number] [address] [place] [id number] 15 Apr, 2012 [facility] [address] [id number] [address] [place] [address] 15 Apr, 2012 [facility] [address] [id number] [address] [place] [address] Apr, [facility] [address] [id number] [address] [place] [address], [place] [address] Apr, [facility] [address] [id number] [address] [place] [address] Apr, [facility] [address] [id number] [address] [place] [address] Apr, [facility] [address] [id number] [address] [place] [address], [place] [address] Apr, [facility] [address] [id number] [address] [place] [address], [place] [address] Jan, [facility] [address] [id number] [address] [place] [address], [place] [address] Jan, [facility] [address] [id number] [address] [place] [address], [place] [address] Dec, [facility] [address] [id number] [address] [place] [address], [place] [address] November, [facility] [address] [id number] [address] [place] [address], [place] [address] Oct, [facility] [address] [id number] [address] [place] [address], [place] [address] Oct, [facility] [address] [id number] [address] [place] [address], [place] [address] Oct, [facility] [address] [id number] [address] [place] [address], [place] [address] Oct, [facility] [address] [id number] [address] [place] [address], [place] [address] Sep, [facility] [address] [id number] [address] [place] [address], [place] [address] Sep, [facility] [address] [id number] [address] [place] [address], [place] [address] Sep, [facility] [address] [id number] [address] [place] [address], [place] [address] Jun, [facility] [address] [id number] [address] [place] [address], [place] [address] Jun, [facility] [address] [id number] [address] [place] [address], [place] [address] May, [facility] [address] [id number] [address] [place] [address], [place] [address] 14 Jan, 2011 [facility] [address] [id number] [address] [place] [address] November, [facility] [address] [id number] [address] [place] [address] 14 Oct, 2010 [facility] [address] [id number] [address] [place] [id number] 16 Sep, 2010 [facility] [address] [id number] [address] [place] [id number] 30 May, 2010 [facility] [address] [id number] [address] [place] [address] Jul, [facility] [address] [id number] [address] [place] [address] Jun, [facility] [address] [id number] [address] [place] [address] Jun, [facility] [address] [id number] [address] [place] [address] Jun, [facility] [address] [id number] [address] [place] [address] Jun, [facility] [address] [id number] [address] [place] [address] May, [facility] [address] [id number] [address] [place] [address] May, [facility] [address] [id number] [address] [place] [address] Apr, [facility] [address] [id number] [address] [place] [id number] Apr, [facility] [address] [id number] [address] [place] [id number] Apr, IMMUNIZATIONS No Known Immunizations SOCIAL HISTORY Never Assessed REASON FOR VISIT EMR-[facility] PLAN OF CARE VITAL SIGNS MEDICATIONS Unknown [...] right 06/1996 Surgical History multiple knee injections ([id number]) Surgical History left knee replacement 06/11 Hospitalization History Knee surgery- x 3 days 06/11
--- OUTSIDE RECORDS SUMMARY | 2019-12-16 20:37 | XMS REPORT ---
Author Author Patti Guzman Doctor Organization [facility] Address Unknown Phone Unavailable Care Team Providers Care Appeals Reviewer Veteran Name Role Phone Migration, Doctor Unavailable Unavailable PROBLEMS Type Condition ICD9-CM Code BDY69-IS Code Onset Dates Condition S tatus SNOMED Code Problem Drug abuse counseling and surveillance of drug abuser Z71.51 Active 897750832 Problem Joint pain M25.50 Active 19045433 Problem ADD (attention deficit disorder) F90.0 Active 661104204 Problem Manic bipolar I disorder in partial remission F31. 73 Active 16468835 Problem Edema, unspecified type R60.9 Active 455139611 Problem Episode of recurrent major d epressive disorder, unspecified depression episode severity F33.9 Active 761079117 Problem ADD (attention deficit disorder) without hyperactivity F98.8 Active 20832480 Problem Social anxiety disorder F40.10 Active 52746363 Problem Carpal tunnel syndrome on left G56.02 Active 954066820543212 Problem Insomnia G47.00 Active 702390677 Problem Venous insufficiency (chronic) (peripheral) I87.2 Active 60240688240370194 Problem Other chronic pain G89.29 Active 8 8074376 Problem Stimulant abuse F15.10 Active 4415 00731 Problem Bipolar II disorder F31.81 Active 99788515 ALLERGIES No Information ENCOUNTERS Encounter Location Date Diagnosis [place] [id number] [facility] [id number] [address] [place] [phone] Oct, [facility] [address] [facility] [id number] [address] [place] [phone] May, Screening for lipid disorder s Z13.220 [facility] [address] [place] [id number] [address] [place] [phone] May, Carpal tunnel syndrome on le ft G56.02 ; Social anxiety disorder F40.10 and Screening for lipid disorders Z13.220 [facility] [address] [facility] [id number] [address] [place] [phone] Apr, Bipolar II disorder F31.81 ; Social anxiety disorder F40.10 ; ADD (attention deficit disorder) without hyperactivity F98.8 and BMI 45.0-49.9, adult Z68.42 [place] [id number] [facility] [id number] [address] [place] [address] Mar, [place] [address] [facility] [id number] [address] [place] [id number] 17 Feb, 2018 BMI 45.0-49.9, adult Z68.42 ; Carpal tunnel syndrome on left G56.02 and Social anxiety disorder F40.10 [place] [address] [facility] [id number] [address] [place] [phone] Jan, Bipolar II disorder F31.81 ; ADD (attention deficit disorder) without hyperactivity F98.8 ; Social anxiety disorder F40.10 and Stimulant abuse F15.10 [place] [address] [place] [id number] [place] [address] Dec, Episode of recurrent major d epressive disorder, unspecified depression episode severity F33.9 ; Other chronic pain G89.29 ; Radiculopathy, lumbar region M54.16 ; Edema of lower extremity R60.0 and BMI 45.0-49.9, adult Z68.42 [place] [address] [place] [id number] [address] [place] [phone] Jun, [place] [address] [place] [id number] [address] [place] [address] Jan, Joint pain M25.50 [place] [address] [place] [id number] [address] [place] [phone] Jan, Wellness examination Z00.00 ; Pain in right knee M25.561 ; Pain in left knee M25.562 ; Edema, unspecified type R60.9 and Drug abuse counseling and surveillance of drug abuser Z71.51 [place] [address] [place] [id number] [address] [place] [address] November, [place] [address] [facility] [id number] [address] [place] [phone] Oct, [facility] [address] [facility] [id number] [address] [place] [phone] Oct, ADD (attention deficit disor josselin) F90.0 ; Social anxiety disorder F40.10 and Manic bipolar I disorder in partial remission F31.73 [facility] [address] [facility] [id number] [address] [place] [phone] Aug, [facility] [address] [facility] [id number] [address] [place] [phone] Aug, [facility] [address] [facility] [id number] [address] [place] [phone] Aug, [facility] [address] [place] [id number] [address] [place] [phone] Jul, [facility] [address] [facility] [id number] [address] [place] [phone] Jul, [facility] [address] [facility] [id number] [address] [place] [phone] Jul, [facility] [address] [place] [id number] [place] [phone] Jun, [facility] [address] [place] [id number] [address] [place] [phone] Jun, [facility] [address] [facility] [id number] [address] [place] [phone] Jun, [facility] [address] [facility] [id number] [address] [place] [phone] Jun, [facility] [address] [place] [id number] [address] [place] [address] May, Joint pain M25.50 ; ADD (att ention deficit disorder) F90.0 ; Edema R60.9 and Insomnia G47.00 [facility] [address] [facility] [id number] [address] [place] [phone] May, [facility] [address] [facility] [id number] [address] [place] [phone] May, [facility] [address] [facility] [id number] [address] [place] [phone] May, [facility] [address] [facility] [id number] [address] [place] [address] May, Left wrist pain M25.532 ; Si nusitis J32.9 and Drug abuse counseling and surveillance of drug abuser Z71.51 [facility] [address] [facility] [id number] [address] [place] [phone] Apr, [facility] [address] [facility] [id number] [address] [place] [phone] Apr, [facility] [address] [facility] [id number] [address] [place] [phone] Apr, [facility] [address] [facility] [id number] [address] [place] [phone] Apr, [facility] [address] [facility] [id number] [address] [place] [phone] Apr, [facility] [address] [facility] [id number] [address] [place] [phone] Apr, [facility] [address] [facility] [id number] [address] [place] [phone] Apr, [facility] [address] [facility] [id number] [address] [place] [phone] Mar, Unspecified venous (peripher al) insufficiency 459.81 ; Bipolar I disorder, most recent episode (or current) manic, moderate 296.42 ; Social phobia 300.23 ; Attention deficit disorder of childhood without mention of hyperactivity 314.00 ; Pain in joint, lower leg 719.46 ; Thrombosis 453.9 and Chronic pain 338.29 [facility] [address] [facility] [id number] [address] [place] [phone] Mar, [facility] [address] [id number] [address] [place] [phone] 18 Mar, 2015 [facility] [address] [id number] [address] [place] [id number] 18 Mar, 2015 [facility] [address] [facility] [id number] [address] [place] [phone] Mar, [facility] [address] [facility] [id number] [address] [place] [phone] Mar, [facility] [address] [facility] [id number] [address] [place] [phone] Mar, [facility] [address] [facility] [id number] [address] [place] [phone] Mar, Manic bipolar I disorder in partial remission 296.45 ; Social phobia 300.23 and Attention deficit disorder of childhood without mention of hyperactivity 314.00 [facility] [address] [facility] [id number] [address] [place] [phone] Mar, [facility] [address] [facility] [id number] [address] [place] [phone] Feb, [facility] [address] [facility] [id number] [address] [place] [phone] Feb, Thrombosis 453.9 ; Unspecifi ed venous (peripheral) insufficiency 459.81 ; Bipolar I disorder, most recent episode (or current) manic, moderate 296.42 ; Social phobia 300.23 ; Attention deficit disorder of childhood without mention of hyperactivity 314.00 ; Pain in joint, lower leg 719.46 and Edema 782.3 [facility] [address] [facility] [id number] [address] [place] [phone] Feb, [facility] [address] [facility] [id number] [address] [place] [phone] Feb, Social phobia 300.23 ; Atten tion deficit disorder of childhood without mention of hyperactivity 314.00 and Bipolar I disorder, most recent episode manic, in partial remission 296.45 [facility] [address] [facility] [id number] [address] [place] [id number] Jan, [facility] [address] [facility] [id number] [address] [place] [phone] Jan, [facility] [address] [facility] [id number] [address] [place] [phone] Jan, Unspecified venous (peripher al) insufficiency 459.81 and Thrombophlebitis 451.9 [facility] [address] [place] [id number] [place] [phone] Jan, [facility] [address] [facility] [id number] [address] [place] [phone] Dec, Headache 784.0 and Back pain 724.5 [facility] [address] [place] [id number] [place] [phone] Dec, [facility] [address] [place] [id number] [place] [phone] Dec, Bipolar I disorder, most rec ent episode (or current) manic, moderate 296.42 ; Attention deficit disorder of childhood without mention of hyperactivity 314.00 and Social phobia 300.23 [facility] [address] [place] [id number] [place] [phone] November, [facility] [address] [place] [id number] [place] [phone] November, [facility] [address] [facility] [id number] [address] [place] [phone] Oct, [facility] [address] [place] [id number] [address] [place] [phone] Oct, [facility] [address] [place] [id number] [place] [phone] Sep, [facility] [address] [place] [id number] [place] [phone] Sep, [facility] [address] [place] [id number] [place] [phone] Aug, 2014 [facility] [address] [id number] [address] [place] [address], [place] [address] Aug, 2014 [facility] [address] [id number] [address] [place] [address], [place] [address] Aug, 2014 [facility] [address] [id number] [address] [place] [address], [place] [address] Aug, 2014 [facility] [address] [id number] [address] [place] [address], [place] [address] Aug, 2014 [facility] [address] [id number] [address] [place] [address], [place] [address] Aug, [facility] [address] [id number] [address] [place] [address], [place] [address] Aug, [facility] [address] [id number] [address] [place] [address], [place] [address] Jul, [facility] [address] [id number] [address] [place] [address], [place] [address] Jul, [facility] [address] [id number] [address] [place] [address], [place] [address] Jun, [facility] [address] [id number] [address] [place] [address], [place] [address] Jun, [facility] [address] [id number] [address] [place] [address], [place] [address] May, [facility] [address] [id number] [address] [place] [address], [place] [address] May, [facility] [address] [id number] [address] [place] [address], [place] [address] May, [facility] [address] [id number] [address] [place] [address], [place] [address] May, [facility] [address] [id number] [address] [place] [phone] May, [facility] [address] [id number] [address] [place] [address], [place] [address] May, [facility] [address] [id number] [address] [place] [address], [place] [address] Apr, [facility] [address] [id number] [address] [place] [address], [place] [address] Apr, [facility] [address] [id number] [address] [place] [address], [place] [address] Apr, [facility] [address] [id number] [address] [place] [address], [place] [address] Apr, [facility] [address] [id number] [address] [place] [address], [place] [address] 22 Mar, 2014 [facility] [address] [id number] [address] [place] [address], [place] [address] 22 Mar, 2014 [facility] [address] [id number] [address] [place] [address], [place] [address] 19 Mar, 2013 [facility] [address] [id number] [address] [place] [address], [place] [address] 16 Mar, 2013 [facility] [address] [id number] [address] [place] [address], [place] [address] 16 Mar, 2013 [facility] [address] [id number] [address] [place] [address], [place] [address] 15 Mar, 2013 [facility] [address] [id number] [address] [place] [address], [place] [address] 11 Sep, 2013 [facility] [address] [id number] [address] [place] [address], [place] [address] 11 Sep, 2013 [facility] [address] [id number] [address] [place] [address], [place] [address] 11 Sep, 2013 [facility] [address] [id number] [address] [place] [address], [place] [address] 11 Mar, 2013 [facility] [address] [id number] [address] [place] [address], [place] [address] Mar, 2013 [facility] [address] [id number] [address] [place] [address], [place] [address] Mar, 2013 [facility] [address] [id number] [address] [place] [address], [place] [address] Mar, [facility] [address] [id number] [address] [place] [address], [place] [address] Mar, [facility] [address] [id number] [address] [place] [address], [place] [address] Mar, [facility] [address] [id number] [address] [place] [address], [place] [address] Feb, [facility] [address] [id number] [address] [place] [address], [place] [address] Feb, [facility] [address] [id number] [address] [place] [address], [place] [address] Feb, [facility] [address] [id number] [address] [place] [address], [place] [address] Feb, [facility] [address] [id number] [address] [place] [address], [place] [address] Feb, [facility] [address] [id number] [address] [place] [address], [place] [address] Feb, [facility] [address] [id number] [address] [place] [address], [place] [address] Feb, [facility] [address] [id number] [address] [place] [address], [place] [address] Feb, [facility] [address] [id number] [address] [place] [address], [place] [address] Feb, [facility] [address] [id number] [address] [place] [address], [place] [address] Feb, [facility] [address] [id number] [address] [place] [address], [place] [address] Feb, [facility] [address] [id number] [address] [place] [address], [place] [address] Feb, [facility] [address] [id number] [address] [place] [address], [place] [address] Feb, [facility] [address] [id number] [address] [place] [address], [place] [address] Feb, [facility] [address] [id number] [address] [place] [address], [place] [address] Jan, [facility] [address] [id number] [address] [place] [address], [place] [address] Jan, [facility] [address] [id number] [address] [place] [address], [place] [address] Jan, [facility] [address] [id number] [address] [place] [address], [place] [address] Jan, [facility] [address] [id number] [address] [place] [address], [place] [address] Jan, [facility] [address] [id number] [address] [place] [address], [place] [address] Jan, [facility] [address] [id number] [address] [place] [address], [place] [address] Jan, [facility] [address] [id number] [address] [place] [address], [place] [address] Dec, [facility] [address] [id number] [address] [place] [address], [place] [address] Dec, [facility] [address] [id number] [address] [place] [address], [place] [address] Dec, [facility] [address] [id number] [address] [place] [address], [place] [address] Dec, [facility] [address] [id number] [address] [place] [address], [place] [address] Dec, [facility] [address] [id number] [address] [place] [address], [place] [address] Dec, [facility] [address] [id number] [facility] [place] [address] Dec, [facility] [address] [id number] [address] [place] [address], [place] [address] Dec, [facility] [address] [id number] [address] [place] [address], [place] [address] Dec, [facility] [address] [id number] [address] [place] [address], [place] [address] November, [facility] [address] [id number] [address] [place] [address], [place] [address] November, [facility] [address] [id number] [address] [place] [address], [place] [address] November, [facility] [address] [id number] [address] [place] [address], [place] [address] November, [facility] [address] [id number] [address] [place] [address], [place] [address] November, [facility] [address] [id number] [address] [place] [address], [place] [address] November, [facility] [address] [id number] [address] [place] [address], [place] [address] November, [facility] [address] [id number] [address] [place] [address], [place] [address] November, [facility] [address] [id number] [address] [place] [address], [place] [address] November, [facility] [address] [id number] [address] [place] [address], [place] [address] November, [facility] [address] [id number] [address] [place] [address], [place] [address] November, [facility] [address] [id number] [address] [place] [address], [place] [address] November, [facility] [address] [id number] [address] [place] [address], [place] [address] November, [facility] [address] [id number] [address] [place] [address], [place] [address] November, [facility] [address] [id number] [address] [place] [address], [place] [address] Oct, [facility] [address] [id number] [address] [place] [address], [place] [address] Oct, [facility] [address] [id number] [address] [place] [address], [place] [address] Oct, [facility] [address] [id number] [address] [place] [address], [place] [address] Oct, [facility] [address] [id number] [address] [place] [address], [place] [address] Oct, [facility] [address] [id number] [address] [place] [address], [place] [address] Oct, [facility] [address] [id number] [address] [place] [address], [place] [address] Sep, [facility] [address] [address] [id number] [address] [place] [address], [place] [address] Sep, [facility] [address] [id number] [address] [place] [address], [place] [address] Sep, [facility] [address] [id number] [address] [place] [address], [place] [address] Sep, [facility] [address] [id number] [address] [place] [address], [place] [address] Aug, [facility] [address] [id number] [address] [place] [address], [place] [address] Aug, [facility] [address] [id number] [address] [place] [address], [place] [address] Aug, [facility] [address] [id number] [address] [place] [address], [place] [address] Aug, [facility] [address] [id number] [address] [place] [address], [place] [address] Jul, [facility] [address] [id number] [address] [place] [address], [place] [address] Jul, [facility] [address] [id number] [address] [place] [address], [place] [address] Jul, [facility] [address] [id number] [address] [place] [address], [place] [address] Jul, [facility] [address] [id number] [address] [place] [address], [place] [address] Jul, [facility] [address] [id number] [address] [place] [address], [place] [address] Jul, [facility] [address] [id number] [address] [place] [address], [place] [address] Jul, [facility] [address] [id number] [address] [place] [address], [place] [address] Jun, [facility] [address] [id number] [address] [place] [address], [place] [address] Jun, [facility] [address] [id number] [address] [place] [address], [place] [address] Jun, [facility] [address] [id number] [address] [place] [address], [place] [address] 17 Jun, 2013 [facility] [address] [id number] [address] [place] [address], [place] [address] Jun, [facility] [address] [id number] [address] [place] [address], [place] [address] Jun, [facility] [address] [id number] [address] [place] [address], [place] [address] May, [facility] [address] [id number] [address] [place] [address], [place] [address] May, [facility] [address] [id number] [address] [place] [address], [place] [address] 15 Apr, 2013 [facility] [address] [id number] [address] [place] [address], [place] [address] 15 Apr, 2013 [facility] [address] [id number] [address] [place] [address], [place] [address] 10 Apr, 2013 [facility] [address] [id number] [address] [place] [address], [place] [address] 10 Apr, 2013 [facility] [address] [id number] [address] [place] [address], [place] [address] 08 Apr, 2013 [facility] [address] [id number] [address] [place] [address], [place] [address] 24 Mar, 2013 [facility] [address] [id number] [address] [place] [address], [place] [address] 19 Mar, 2013 [facility] [address] [id number] [address] [place] [address], [place] [address] Mar, [facility] [address] [id number] [address] [place] [address], [place] [address] Mar, [facility] [address] [id number] [address] [place] [address], [place] [address] Feb, [facility] [address] [id number] [address] [place] [address], [place] [address] Feb, [facility] [address] [id number] [address] [place] [address], [place] [address] Jan, [facility] [address] [id number] [address] [place] [address], [place] [address] Jan, [facility] [address] [id number] [address] [place] [address], [place] [address] Jan, [facility] [address] [id number] [address] [place] [address], [place] [address] Jan, [facility] [address] [id number] [address] [place] [address], [place] [address] Dec, [facility] [address] [id number] [address] [place] [address], [place] [address] 15 Dec, 2012 [facility] [address] [id number] [address] [place] [address], [place] [address] 07 Dec, 2012 [facility] [address] [id number] [address] [place] [address], [place] [address] 06 Dec, 2012 [facility] [address] [id number] [address] [place] [address], [place] [address] 16 Nov, 2012 [facility] [address] [id number] [address] [place] [address], [place] [address] November, [facility] [address] [id number] [address] [place] [address], [place] [address] Oct, [facility] [address] [id number] [address] [place] [address], [place] [address] Sep, [facility] [address] [id number] [address] [place] [address], [place] [address] Sep, [facility] [address] [id number] [address] [place] [address], [place] [address] 14 Aug, 2012 [facility] [address] [id number] [address] [place] [address], [place] [address] Aug, [facility] [address] [id number] [address] [place] [address], [place] [address] Jul, [facility] [address] [id number] [address] [place] [address], [place] [address] Jul, [facility] [address] [id number] [address] [place] [address], [place] [address] Jul, [facility] [address] [id number] [address] [place] [address], [place] [address] Jun, [facility] [address] [id number] [address] [place] [address], [place] [address] Jun, [facility] [address] [id number] [address] [place] [address], [place] [address] Jun, [facility] [address] [id number] [address] [place] [address], [place] [address] 15 Jun, 2012 [facility] [address] [id number] [address] [place] [address], [place] [address] May, [facility] [address] [id number] [address] [place] [address], [place] [address] May, [facility] [address] [id number] [address] [place] [address], [place] [address] May, [facility] [address] [id number] [address] [place] [address], [place] [address] May, [facility] [address] [id number] [address] [place] [address], [place] [address] May, [facility] [address] [id number] [address] [place] [address], [place] [address] May, [facility] [address] [id number] [address] [place] [id number] May, [facility] [address] [id number] [address] [place] [address], [place] [address] 15 Apr, 2012 [facility] [address] [id number] [address] [place] [id number] 15 Apr, 2012 [facility] [address] [id number] [address] [place] [id number] 15 Apr, 2012 [facility] [address] [id number] [address] [place] [id number] Apr, [facility] [address] [id number] [address] [place] [address], [place] [address] Apr, [facility] [address] [id number] [address] [place] [id number] Apr, [facility] [address] [id number] [address] [place] [id number] Apr, [facility] [address] [id number] [address] [place] [address], [place] [address] Apr, [facility] [address] [id number] [address] [place] [address], [place] [address] Jan, [facility] [address] [id number] [address] [place] [address], [place] [address] Jan, [facility] [address] [id number] [address] [place] [address], [place] [address] Dec, [facility] [address] [id number] [address] [place] [address], [place] [address] November, [facility] [address] [id number] [address] [place] [address], [place] [address] Oct, [facility] [address] [id number] [address] [place] [address], [place] [address] Oct, [facility] [address] [id number] [address] [place] [address], [place] [address] Oct, [facility] [address] [id number] [address] [place] [address], [place] [address] Oct, [facility] [address] [id number] [address] [place] [address], [place] [address] Sep, [facility] [address] [id number] [address] [place] [address], [place] [address] Sep, [facility] [address] [id number] [address] [place] [address], [place] [address] Sep, [facility] [address] [id number] [address] [place] [address], [place] [address] Jun, [facility] [address] [id number] [address] [place] [address], [place] [address] Jun, [facility] [address] [id number] [address] [place] [address], [place] [address] May, [facility] [address] [id number] [address] [place] [address], [place] [address] 14 Jan, 2011 [facility] [address] [id number] [address] [place] [id number] November, [facility] [address] [id number] [address] [place] [id number] 14 Oct, 2010 [facility] [address] [id number] [address] [place] [id number] 16 Sep, 2010 [facility] [address] [id number] [address] [place] [id number] 30 May, 2010 [facility] [address] [id number] [address] [place] [id number] Jul, [facility] [address] [id number] [address] [place] [id number] Jun, [facility] [address] [id number] [address] [place] [id number] Jun, [facility] [address] [id number] [address] [place] [id number] Jun, [facility] [address] [id number] [address] [place] [id number] Jun, [facility] [address] [id number] [address] [place] [id number] May, [facility] [address] [id number] [address] [place] [id number] May, [facility] [address] [id number] [address] [place] [id number] Apr, [facility] [address] [id number] [address] [place] [id number] Apr, [facility] [address] [id number] [address] [place] [id number] Apr, IMMUNIZATIONS No Known Immunizations SOCIAL HISTORY Never Assessed REASON FOR VISIT EMR-[facility] PLAN OF CARE VITAL SIGNS MEDICATIONS Unknown [...] right 06/1996 Surgical History multiple knee injections ([id number]) Surgical History left knee replacement 06/11 Hospitalization History Knee surgery- x 3 days 06/11
--- OUTSIDE RECORDS SUMMARY | 2019-12-16 20:37 | XMS REPORT ---
Author Author Patti Guzman Doctor Organization [facility] Address Unknown Phone Unavailable Care Team Providers Care Valance Cutter Name Role Phone Migration, Doctor Unavailable Unavailable PROBLEMS Type Condition ICD9-CM Code CRN93-[id number] Code Onset Dates Condition S tatus SNOMED Code Problem Drug abuse counseling and surveillance of drug abuser Z71.51 Active 261539955 Problem Joint pain M25.50 Active 04436025 Problem ADD (attention deficit disorder) F90.0 Active 333873770 Problem Manic bipolar I disorder in partial remission F31. 73 Active 54241349 Problem Edema, unspecified type R60.9 Active 424462215 Problem Episode of recurrent major d epressive disorder, unspecified depression episode severity F33.9 Active 564931468 Problem ADD (attention deficit disorder) without hyperactivity F98.8 Active 02028025 Problem Social anxiety disorder F40.10 Active 76140903 Problem Carpal tunnel syndrome on left G56.02 Active [id number] Problem Insomnia G47.00 Active 796141665 Problem Venous insufficiency (chronic) (peripheral) I87.2 Active [id number] Problem Other chronic pain G89.29 Active 8 2540313 Problem Stimulant abuse F15.10 Active 4415 30287 Problem Bipolar II disorder F31.81 Active 79394674 ALLERGIES No Information ENCOUNTERS Encounter Location Date Diagnosis [place] [address] [facility] [id number] [address] [place] [id number] Oct, [facility] [address] [facility] [id number] [address] [place] [address] May, Screening for lipid disorder s Z13.220 [facility] [address] [place] [id number] [address] [place] [address] May, Carpal tunnel syndrome on le ft G56.02 ; Social anxiety disorder F40.10 and Screening for lipid disorders Z13.220 [facility] [address] [facility] [id number] [address] [place] [address] Apr, Bipolar II disorder F31.81 ; Social anxiety disorder F40.10 ; ADD (attention deficit disorder) without hyperactivity F98.8 and BMI 45.0-49.9, adult Z68.42 [place] [address] [facility] [id number] [address] [place] [address] Mar, [place] [address] [facility] [id number] [address] [place] [address] 17 Feb, 2018 BMI 45.0-49.9, adult Z68.42 ; Carpal tunnel syndrome on left G56.02 and Social anxiety disorder F40.10 [place] [address] [facility] [id number] [address] [place] [address] Jan, Bipolar II disorder F31.81 ; ADD (attention deficit disorder) without hyperactivity F98.8 ; Social anxiety disorder F40.10 and Stimulant abuse F15.10 [place] [address] [place] [id number] [place] [address] Dec, Episode of recurrent major d epressive disorder, unspecified depression episode severity F33.9 ; Other chronic pain G89.29 ; Radiculopathy, lumbar region M54.16 ; Edema of lower extremity R60.0 and BMI 45.0-49.9, adult Z68.42 [place] [address] [place] [id number] [address] [place] [address] Jun, [place] [address] [place] [id number] [address] [place] [address] Jan, Joint pain M25.50 [place] [address] [place] [id number] [address] [place] [address] Jan, Wellness examination Z00.00 ; Pain in right knee M25.561 ; Pain in left knee M25.562 ; Edema, unspecified type R60.9 and Drug abuse counseling and surveillance of drug abuser Z71.51 [place] [address] [place] [id number] [address] [place] [phone] November, [place] [address] [facility] [id number] [address] [place] [address] Oct, [facility] [address] [facility] [id number] [address] [place] [id number] Oct, ADD (attention deficit disor josselin) F90.0 ; Social anxiety disorder F40.10 and Manic bipolar I disorder in partial remission F31.73 [facility] [address] [facility] [id number] [address] [place] [address] Aug, [facility] [address] [facility] [id number] [address] [place] [phone] Aug, [facility] [address] [facility] [id number] [address] [place] [phone] Aug, [facility] [address] [place] [id number] [address] [place] [address] Jul, [facility] [address] [facility] [id number] [address] [place] [phone] Jul, [facility] [address] [facility] [id number] [address] [place] [address] Jul, [facility] [address] [place] [id number] [address] [place] [phone] Jun, [facility] [address] [place] [id number] [address] [place] [address] Jun, [facility] [address] [facility] [id number] [address] [place] [address] Jun, [facility] [address] [facility] [id number] [address] [place] [address] Jun, [facility] [address] [place] [id number] [address] [place] [address] May, Joint pain M25.50 ; ADD (att ention deficit disorder) F90.0 ; Edema R60.9 and Insomnia G47.00 [facility] [address] [facility] [id number] [address] [place] [phone] May, [facility] [address] [facility] [id number] [address] [place] [address] May, [facility] [address] [facility] [id number] [address] [place] [address] May, [facility] [address] [facility] [id number] [address] [place] [address] May, Left wrist pain M25.532 ; Si nusitis J32.9 and Drug abuse counseling and surveillance of drug abuser Z71.51 [facility] [address] [facility] [id number] [address] [place] [address] Apr, [facility] [address] [facility] [id number] [address] [place] [address] Apr, [facility] [address] [facility] [id number] [address] [place] [address] Apr, [facility] [address] [facility] [id number] [address] [place] [phone] Apr, [facility] [address] [facility] [id number] [address] [place] [address] Apr, [facility] [address] [facility] [id number] [address] [place] [address] Apr, [facility] [address] [facility] [id number] [address] [place] [phone] Apr, [facility] [address] [facility] [id number] [address] [place] [address] Mar, Unspecified venous (peripher al) insufficiency 459.81 ; Bipolar I disorder, most recent episode (or current) manic, moderate 296.42 ; Social phobia 300.23 ; Attention deficit disorder of childhood without mention of hyperactivity 314.00 ; Pain in joint, lower leg 719.46 ; Thrombosis 453.9 and Chronic pain 338.29 [facility] [address] [facility] [id number] [address] [place] [address] Mar, [facility] [address] [id number] [address] [place] [id number] 18 Mar, 2015 [facility] [address] [id number] [address] [place] [phone] 18 Mar, 2015 [facility] [address] [facility] [id number] [address] [place] [phone] Mar, [facility] [address] [facility] [id number] [address] [place] [phone] Mar, [facility] [address] [facility] [id number] [address] [place] [phone] Mar, [facility] [address] [facility] [id number] [address] [place] [address] Mar, Manic bipolar I disorder in partial remission 296.45 ; Social phobia 300.23 and Attention deficit disorder of childhood without mention of hyperactivity 314.00 [facility] [address] [facility] [id number] [address] [place] [address] Mar, [facility] [address] [facility] [id number] [address] [place] [address] Feb, [facility] [address] [facility] [id number] [address] [place] [address] Feb, Thrombosis 453.9 ; Unspecifi ed venous (peripheral) insufficiency 459.81 ; Bipolar I disorder, most recent episode (or current) manic, moderate 296.42 ; Social phobia 300.23 ; Attention deficit disorder of childhood without mention of hyperactivity 314.00 ; Pain in joint, lower leg 719.46 and Edema 782.3 [facility] [address] [facility] [id number] [address] [place] [address] Feb, [facility] [address] [facility] [id number] [address] [place] [phone] Feb, Social phobia 300.23 ; Atten tion deficit disorder of childhood without mention of hyperactivity 314.00 and Bipolar I disorder, most recent episode manic, in partial remission 296.45 [facility] [address] [facility] [id number] [address] [place] [address] Jan, [facility] [address] [facility] [id number] [address] [place] [phone] Jan, [facility] [address] [facility] [id number] [address] [place] [address] Jan, Unspecified venous (peripher al) insufficiency 459.81 and Thrombophlebitis 451.9 [facility] [address] [place] [id number] [address] [place] [address] Jan, [facility] [address] [facility] [id number] [address] [place] [address] Dec, Headache 784.0 and Back pain 724.5 [facility] [address] [place] [id number] [address] [place] [phone] Dec, [facility] [address] [place] [id number] [place] [address] Dec, Bipolar I disorder, most rec ent episode (or current) manic, moderate 296.42 ; Attention deficit disorder of childhood without mention of hyperactivity 314.00 and Social phobia 300.23 [facility] [address] [place] [id number] [address] [place] [phone] November, [facility] [address] [place] [id number] [address] [place] [phone] November, [facility] [address] [facility] [id number] [address] [place] [phone] Oct, [facility] [address] [place] [id number] [address] [place] [phone] Oct, [facility] [address] [place] [id number] [address] [place] [phone] Sep, [facility] [address] [place] [id number] [address] [place] [phone] Sep, [facility] [address] [place] [id number] [address] [place] [phone] Aug, 2014 [facility] [address] [id number] [address] [place] [address], [place] [address] Aug, 2014 [facility] [address] [id number] [address] [place] [address], [place] [address] Aug, 2014 [facility] [address] [id number] [address] [place] [address], [place] [address] Aug, 2014 [facility] [address] [id number] [address] [place] [address], [place] [address] Aug, 2014 [facility] [address] [id number] [address] [place] [address], [place] [address] Aug, [facility] [address] [id number] [address] [place] [address], [place] [address] Aug, [facility] [address] [id number] [address] [place] [address], [place] [address] Jul, [facility] [address] [id number] [address] [place] [address], [place] [address] Jul, [facility] [address] [id number] [address] [place] [address], [place] [address] Jun, [facility] [address] [id number] [address] [place] [address], [place] [address] Jun, [facility] [address] [id number] [address] [place] [address], [place] [address] May, [facility] [address] [id number] [address] [place] [address], [place] [address] May, [facility] [address] [id number] [address] [place] [address], [place] [address] May, [facility] [address] [id number] [address] [place] [address], [place] [address] May, [facility] [address] [id number] [address] [place] [phone] May, [facility] [address] [id number] [address] [place] [address], [place] [address] May, [facility] [address] [id number] [address] [place] [address], [place] [address] Apr, [facility] [address] [id number] [address] [place] [address], [place] [address] Apr, [facility] [address] [id number] [address] [place] [address], [place] [address] Apr, [facility] [address] [id number] [address] [place] [address], [place] [address] Apr, [facility] [address] [id number] [address] [place] [address], [place] [address] 22 Mar, 2014 [facility] [address] [id number] [address] [place] [address], [place] [address] 22 Mar, 2014 [facility] [address] [id number] [address] [place] [address], [place] [address] 19 Mar, 2013 [facility] [address] [id number] [address] [place] [address], [place] [address] 16 Mar, 2013 [facility] [address] [id number] [address] [place] [address], [place] [address] 16 Mar, 2013 [facility] [address] [id number] [address] [place] [address], [place] [address] 15 Mar, 2013 [facility] [address] [id number] [address] [place] [address], [place] [address] 11 Sep, 2013 [facility] [address] [id number] [address] [place] [address], [place] [address] 11 Sep, 2013 [facility] [address] [id number] [address] [place] [address], [place] [address] 11 Sep, 2013 [facility] [address] [id number] [address] [place] [address], [place] [address] 11 Mar, 2013 [facility] [address] [id number] [address] [place] [address], [place] [address] Mar, 2013 [facility] [address] [id number] [address] [place] [address], [place] [address] Mar, 2013 [facility] [address] [id number] [address] [place] [address], [place] [address] Mar, [facility] [address] [id number] [address] [place] [address], [place] [address] Mar, [facility] [address] [id number] [address] [place] [address], [place] [address] Mar, [facility] [address] [id number] [address] [place] [address], [place] [address] Feb, [facility] [address] [id number] [address] [place] [address], [place] [address] Feb, [facility] [address] [id number] [address] [place] [address], [place] [address] Feb, [facility] [address] [id number] [address] [place] [address], [place] [address] Feb, [facility] [address] [id number] [address] [place] [address], [place] [address] Feb, [facility] [address] [id number] [address] [place] [address], [place] [address] Feb, [facility] [address] [id number] [address] [place] [address], [place] [address] Feb, [facility] [address] [id number] [address] [place] [address], [place] [address] Feb, [facility] [address] [id number] [address] [place] [address], [place] [address] Feb, [facility] [address] [id number] [address] [place] [address], [place] [address] Feb, [facility] [address] [id number] [address] [place] [address], [place] [address] Feb, [facility] [address] [id number] [address] [place] [address], [place] [address] Feb, [facility] [address] [id number] [address] [place] [address], [place] [address] Feb, [facility] [address] [id number] [address] [place] [address], [place] [address] Feb, [facility] [address] [id number] [address] [place] [address], [place] [address] Jan, [facility] [address] [id number] [address] [place] [address], [place] [address] Jan, [facility] [address] [id number] [address] [place] [address], [place] [address] Jan, [facility] [address] [id number] [address] [place] [address], [place] [address] Jan, [facility] [address] [id number] [address] [place] [address], [place] [address] Jan, [facility] [address] [id number] [address] [place] [address], [place] [address] Jan, [facility] [address] [id number] [address] [place] [address], [place] [address] Jan, [facility] [address] [id number] [address] [place] [address], [place] [address] Dec, [facility] [address] [id number] [address] [place] [address], [place] [address] Dec, [facility] [address] [id number] [address] [place] [address], [place] [address] Dec, [facility] [address] [id number] [address] [place] [address], [place] [address] Dec, [facility] [address] [id number] [address] [place] [address], [place] [address] Dec, [facility] [address] [id number] [address] [place] [address], [place] [address] Dec, [facility] [address] [id number] [facility] [place] [address] Dec, [facility] [address] [id number] [address] [place] [address], [place] [address] Dec, [facility] [address] [id number] [address] [place] [address], [place] [address] Dec, [facility] [address] [id number] [address] [place] [address], [place] [address] November, [facility] [address] [id number] [address] [place] [address], [place] [address] November, [facility] [address] [id number] [address] [place] [address], [place] [address] November, [facility] [address] [id number] [address] [place] [address], [place] [address] November, [facility] [address] [id number] [address] [place] [address], [place] [address] November, [facility] [address] [id number] [address] [place] [address], [place] [address] November, [facility] [address] [id number] [address] [place] [address], [place] [address] November, [facility] [address] [id number] [address] [place] [address], [place] [address] November, [facility] [address] [id number] [address] [place] [address], [place] [address] November, [facility] [address] [id number] [address] [place] [address], [place] [address] November, [facility] [address] [id number] [address] [place] [address], [place] [address] November, [facility] [address] [id number] [address] [place] [address], [place] [address] November, [facility] [address] [id number] [address] [place] [address], [place] [address] November, [facility] [address] [id number] [address] [place] [address], [place] [address] November, [facility] [address] [id number] [address] [place] [address], [place] [address] Oct, [facility] [address] [id number] [address] [place] [address], [place] [address] Oct, [facility] [address] [id number] [address] [place] [address], [place] [address] Oct, [facility] [address] [id number] [address] [place] [address], [place] [address] Oct, [facility] [address] [id number] [address] [place] [address], [place] [address] Oct, [facility] [address] [id number] [address] [place] [address], [place] [address] Oct, [facility] [address] [id number] [address] [place] [address], [place] [address] Sep, [facility] [address] [id number] [address] [place] [address], [place] [address] Sep, [facility] [address] [id number] [address] [place] [address], [place] [address] Sep, [facility] [address] [id number] [address] [place] [address], [place] [address] Sep, [facility] [address] [id number] [address] [place] [address], [place] [address] Aug, [facility] [address] [id number] [address] [place] [address], [place] [address] Aug, [facility] [address] [id number] [address] [place] [address], [place] [address] Aug, [facility] [address] [id number] [address] [place] [address], [place] [address] Aug, [facility] [address] [id number] [address] [place] [address], [place] [address] Jul, [facility] [address] [id number] [address] [place] [address], [place] [address] Jul, [facility] [address] [id number] [address] [place] [address], [place] [address] Jul, [facility] [address] [id number] [address] [place] [address], [place] [address] Jul, [facility] [address] [id number] [address] [place] [address], [place] [address] Jul, [facility] [address] [id number] [address] [place] [address], [place] [address] Jul, [facility] [address] [id number] [address] [place] [address], [place] [address] Jul, [facility] [address] [id number] [address] [place] [address], [place] [address] Jun, [facility] [address] [id number] [address] [place] [address], [place] [address] Jun, [facility] [address] [id number] [address] [place] [address], [place] [address] Jun, [facility] [address] [id number] [address] [place] [address], [place] [address] 17 Jun, 2013 [facility] [address] [id number] [address] [place] [address], [place] [address] Jun, [facility] [address] [id number] [address] [place] [address], [place] [address] Jun, [facility] [address] [id number] [address] [place] [address], [place] [address] May, [facility] [address] [id number] [address] [place] [address], [place] [address] May, [facility] [address] [id number] [address] [place] [address], [place] [address] 15 Apr, 2013 [facility] [address] [id number] [address] [place] [address], [place] [address] 15 Apr, 2013 [facility] [address] [id number] [address] [place] [address], [place] [address] 10 Apr, 2013 [facility] [address] [id number] [address] [place] [address], [place] [address] 10 Apr, 2013 [facility] [address] [id number] [address] [place] [address], [place] [address] 08 Apr, 2013 [facility] [address] [id number] [address] [place] [address], [place] [address] 24 Mar, 2013 [facility] [address] [id number] [address] [place] [address], [place] [address] 19 Mar, 2013 [facility] [facility] [address] [id number] [address] [place] [address], [place] [address] Mar, [facility] [address] [id number] [address] [place] [address], [place] [address] Mar, [facility] [address] [id number] [address] [place] [address], [place] [address] Feb, [facility] [address] [id number] [address] [place] [address], [place] [address] Feb, [facility] [address] [id number] [address] [place] [address], [place] [address] Jan, [facility] [address] [id number] [address] [place] [address], [place] [address] Jan, [facility] [address] [id number] [address] [place] [address], [place] [address] Jan, [facility] [address] [id number] [address] [place] [address], [place] [address] Jan, [facility] [address] [id number] [address] [place] [address], [place] [address] Dec, [facility] [address] [id number] [address] [place] [address], [place] [address] 15 Dec, 2012 [facility] [address] [id number] [address] [place] [address], [place] [address] 07 Dec, 2012 [facility] [address] [id number] [address] [place] [address], [place] [address] 06 Dec, 2012 [facility] [address] [id number] [address] [place] [address], [place] [address] 16 Nov, 2012 [facility] [address] [id number] [address] [place] [address], [place] [address] November, [facility] [address] [id number] [address] [place] [address], [place] [address] Oct, [facility] [address] [id number] [address] [place] [address], [place] [address] Sep, [facility] [address] [id number] [address] [place] [address], [place] [address] Sep, [facility] [address] [id number] [address] [place] [address], [place] [address] 14 Aug, 2012 [facility] [address] [id number] [address] [place] [address], [place] [address] Aug, [facility] [address] [id number] [address] [place] [address], [place] [address] Jul, [facility] [address] [id number] [address] [place] [address], [place] [address] Jul, [facility] [address] [id number] [address] [place] [address], [place] [address] Jul, [facility] [address] [id number] [address] [place] [address], [place] [address] Jun, [facility] [address] [id number] [address] [place] [address], [place] [address] Jun, [facility] [address] [id number] [address] [place] [address], [place] [address] Jun, [facility] [address] [id number] [address] [place] [address], [place] [address] 15 Jun, 2012 [facility] [address] [id number] [address] [place] [address], [place] [address] May, [facility] [address] [id number] [address] [place] [address], [place] [address] May, [facility] [address] [id number] [address] [place] [address], [place] [address] May, [facility] [address] [id number] [address] [place] [address], [place] [address] May, [facility] [address] [id number] [address] [place] [address], [place] [address] May, [facility] [address] [id number] [address] [place] [address], [place] [address] May, [facility] [address] [id number] [address] [place] [id number] May, [facility] [address] [id number] [address] [place] [address], [place] [address] 15 Apr, 2012 [facility] [address] [id number] [address] [place] [id number] 15 Apr, 2012 [facility] [address] [id number] [address] [place] [id number] 15 Apr, 2012 [facility] [address] [id number] [address] [place] [id number] Apr, [facility] [address] [id number] [address] [place] [address], [place] [address] Apr, [facility] [address] [id number] [address] [place] [id number] Apr, [facility] [address] [id number] [address] [place] [id number] Apr, [facility] [address] [id number] [address] [place] [address], [place] [address] Apr, [facility] [address] [id number] [address] [place] [address], [place] [address] Jan, [facility] [address] [id number] [address] [place] [address], [place] [address] Jan, [facility] [address] [id number] [address] [place] [address], [place] [address] Dec, [facility] [address] [id number] [address] [place] [address], [place] [address] November, [facility] [address] [id number] [address] [place] [address], [place] [address] Oct, [facility] [address] [id number] [address] [place] [address], [place] [address] Oct, [facility] [address] [id number] [address] [place] [address], [place] [address] Oct, [facility] [address] [id number] [address] [place] [address], [place] [address] Oct, [facility] [address] [id number] [address] [place] [address], [place] [address] Sep, [facility] [address] [id number] [address] [place] [address], [place] [address] Sep, [facility] [address] [id number] [address] [place] [address], [place] [address] Sep, [facility] [address] [id number] [address] [place] [address], [place] [address] Jun, [facility] [address] [id number] [address] [place] [address], [place] [address] Jun, [facility] [address] [id number] [address] [place] [address], [place] [address] May, [facility] [address] [id number] [address] [place] [address], [place] [address] 14 Jan, 2011 [facility] [address] [id number] [address] [place] [id number] November, [facility] [address] [id number] [address] [place] [address] 14 Oct, 2010 [facility] [address] [id number] [address] [place] [id number] 16 Sep, 2010 [facility] [address] [id number] [address] [place] [id number] 30 May, 2010 [facility] [address] [id number] [address] [place] [id number] Jul, [facility] [address] [id number] [address] [place] [address] Jun, [facility] [address] [id number] [address] [place] [id number] Jun, [facility] [address] [id number] [address] [place] [id number] Jun, [facility] [address] [id number] [address] [place] [address] Jun, [facility] [address] [id number] [address] [place] [id number] May, [facility] [address] [id number] [address] [place] [address] May, [facility] [address] [id number] [address] [place] [id number] Apr, [facility] [address] [id number] [address] [place] [id number] Apr, [facility] [address] [id number] [address] [place] [id number] Apr, IMMUNIZATIONS No Known Immunizations SOCIAL HISTORY [...] right 06/1996 Surgical History multiple knee injections ([id number]) Surgical History left knee replacement 06/11 Hospitalization History Knee surgery- x 3 days 06/11
--- OUTSIDE RECORDS SUMMARY | 2019-12-16 20:38 | XMS REPORT ---
Author Author Patti Guzman Doctor Organization [facility] Address Unknown Phone Unavailable Care Team Providers Care Test Facility Engineer Name Role Phone Migration, Doctor Unavailable Unavailable PROBLEMS Type Condition ICD9-CM Code [id number] Code Onset Dates Condition S tatus SNOMED Code Problem Drug abuse counseling and surveillance of drug abuser Z71.51 Active 473580346 Problem Joint pain M25.50 Active 36713739 Problem ADD (attention deficit disorder) F90.0 Active 688858047 Problem Manic bipolar I disorder in partial remission F31. 73 Active 35735233 Problem Edema, unspecified type R60.9 Active 414136744 Problem Episode of recurrent major d epressive disorder, unspecified depression episode severity F33.9 Active 103983472 Problem ADD (attention deficit disorder) without hyperactivity F98.8 Active 26211632 Problem Social anxiety disorder F40.10 Active 63157640 Problem Carpal tunnel syndrome on left G56.02 Active 561005993281182 Problem Insomnia G47.00 Active 361222300 Problem Venous insufficiency (chronic) (peripheral) I87.2 Active [id number] Problem Other chronic pain G89.29 Active 8 0127801 Problem Stimulant abuse F15.10 Active 4415 52870 Problem Bipolar II disorder F31.81 Active 18510561 ALLERGIES No Information ENCOUNTERS Encounter Location Date Diagnosis [place] [id number] [facility] [id number] [address] [place] [address] Oct, [facility] [address] [facility] [id number] [address] [place] [address] May, Screening for lipid disorder s Z13.220 [facility] [address] [place] [id number] [address] [place] [address] May, Carpal tunnel syndrome on le ft G56.02 ; Social anxiety disorder F40.10 and Screening for lipid disorders Z13.220 [place] [id number] [facility] [id number] [address] [place] [address] Apr, Bipolar II disorder F31.81 ; Social anxiety disorder F40.10 ; ADD (attention deficit disorder) without hyperactivity F98.8 and BMI 45.0-49.9, adult Z68.42 [place] [address] [facility] [id number] [address] [place] [address] Mar, [place] [address] [facility] [id number] [address] [place] [address] 17 Feb, 2018 BMI 45.0-49.9, adult Z68.42 ; Carpal tunnel syndrome on left G56.02 and Social anxiety disorder F40.10 [place] [address] [facility] [id number] [address] [place] [address] Jan, Bipolar II disorder F31.81 ; ADD (attention deficit disorder) without hyperactivity F98.8 ; Social anxiety disorder F40.10 and Stimulant abuse F15.10 [place] [address] [place] [id number] [place] [address] Dec, Episode of recurrent major d epressive disorder, unspecified depression episode severity F33.9 ; Other chronic pain G89.29 ; Radiculopathy, lumbar region M54.16 ; Edema of lower extremity R60.0 and BMI 45.0-49.9, adult Z68.42 [place] [address] [place] [id number] [address] [place] [address] Jun, [place] [address] [place] [id number] [address] [place] [address] Jan, Joint pain M25.50 [place] [address] [place] [id number] [address] [place] [address] Jan, Wellness examination Z00.00 ; Pain in right knee M25.561 ; Pain in left knee M25.562 ; Edema, unspecified type R60.9 and Drug abuse counseling and surveillance of drug abuser Z71.51 [place] [address] [place] [id number] [address] [place] [address] November, [place] [address] [facility] [id number] [address] [place] [address] Oct, [facility] [address] [facility] [id number] [address] [place] [address] Oct, ADD (attention deficit disor josselin) F90.0 ; Social anxiety disorder F40.10 and Manic bipolar I disorder in partial remission F31.73 [facility] [address] [facility] [id number] [address] [place] [address] Aug, [facility] [address] [facility] [id number] [address] [place] [address] Aug, [facility] [address] [facility] [id number] [address] [place] [address] Aug, [facility] [address] [place] [id number] [address] [place] [address] Jul, [facility] [address] [facility] [id number] [address] [place] [address] Jul, [facility] [address] [facility] [id number] [address] [place] [address] Jul, [facility] [address] [place] [id number] [address] [place] [address] Jun, [facility] [address] [place] [id number] [address] [place] [address] Jun, [facility] [address] [facility] [id number] [address] [place] [address] Jun, [facility] [address] [facility] [id number] [address] [place] [address] Jun, [facility] [address] [place] [id number] [address] [place] [address] May, Joint pain M25.50 ; ADD (att ention deficit disorder) F90.0 ; Edema R60.9 and Insomnia G47.00 [facility] [address] [facility] [id number] [address] [place] [address] May, [facility] [address] [facility] [id number] [address] [place] [address] May, [facility] [address] [facility] [id number] [address] [place] [address] May, [facility] [address] [facility] [id number] [address] [place] [address] May, Left wrist pain M25.532 ; Si nusitis J32.9 and Drug abuse counseling and surveillance of drug abuser Z71.51 [facility] [address] [facility] [id number] [address] [place] [address] Apr, [facility] [address] [facility] [id number] [address] [place] [address] Apr, [facility] [address] [facility] [id number] [address] [place] [address] Apr, [facility] [address] [facility] [id number] [address] [place] [address] Apr, [facility] [address] [facility] [id number] [address] [place] [address] Apr, [facility] [address] [facility] [id number] [address] [place] [address] Apr, [facility] [address] [facility] [id number] [address] [place] [address] Apr, [facility] [address] [facility] [id number] [address] [place] [address] Mar, Unspecified venous (peripher al) insufficiency 459.81 ; Bipolar I disorder, most recent episode (or current) manic, moderate 296.42 ; Social phobia 300.23 ; Attention deficit disorder of childhood without mention of hyperactivity 314.00 ; Pain in joint, lower leg 719.46 ; Thrombosis 453.9 and Chronic pain 338.29 [facility] [address] [facility] [id number] [address] [place] [address] Mar, [facility] [address] [id number] [address] [place] [address] 18 Mar, 2015 [facility] [address] [id number] [address] [place] [address] 18 Mar, 2015 [facility] [address] [facility] [id number] [address] [place] [address] Mar, [facility] [address] [facility] [id number] [address] [place] [address] Mar, [facility] [address] [facility] [id number] [address] [place] [address] Mar, [facility] [address] [facility] [id number] [address] [place] [address] Mar, Manic bipolar I disorder in partial remission 296.45 ; Social phobia 300.23 and Attention deficit disorder of childhood without mention of hyperactivity 314.00 [facility] [address] [facility] [id number] [address] [place] [address] Mar, [facility] [address] [facility] [id number] [address] [place] [address] Feb, [facility] [address] [facility] [id number] [address] [place] [address] Feb, Thrombosis 453.9 ; Unspecifi ed venous (peripheral) insufficiency 459.81 ; Bipolar I disorder, most recent episode (or current) manic, moderate 296.42 ; Social phobia 300.23 ; Attention deficit disorder of childhood without mention of hyperactivity 314.00 ; Pain in joint, lower leg 719.46 and Edema 782.3 [facility] [address] [facility] [id number] [address] [place] [address] Feb, [facility] [address] [facility] [id number] [address] [place] [address] Feb, Social phobia 300.23 ; Atten tion deficit disorder of childhood without mention of hyperactivity 314.00 and Bipolar I disorder, most recent episode manic, in partial remission 296.45 [facility] [address] [facility] [id number] [address] [place] [address] Jan, [facility] [address] [facility] [id number] [address] [place] [address] Jan, [facility] [address] [facility] [id number] [address] [place] [address] Jan, Unspecified venous (peripher al) insufficiency 459.81 and Thrombophlebitis 451.9 [facility] [address] [place] [id number] [address] [place] [address] Jan, [facility] [address] [facility] [id number] [address] [place] [address] Dec, Headache 784.0 and Back pain 724.5 [facility] [address] [place] [id number] [address] [place] [address] Dec, [facility] [address] [place] [id number] [place] [address] Dec, Bipolar I disorder, most rec ent episode (or current) manic, moderate 296.42 ; Attention deficit disorder of childhood without mention of hyperactivity 314.00 and Social phobia 300.23 [facility] [address] [place] [id number] [address] [place] [address] November, [facility] [address] [place] [id number] [address] [place] [address] November, [facility] [address] [facility] [id number] [address] [place] [address] Oct, [facility] [address] [place] [id number] [address] [place] [address] Oct, [facility] [address] [place] [id number] [address] [place] [address] Sep, [facility] [address] [place] [id number] [address] [place] [address] Sep, [facility] [address] [place] [id number] [address] [place] [address] Aug, 2014 [facility] [address] [id number] [address] [place] [address], [place] [address] Aug, 2014 [facility] [address] [id number] [address] [place] [address], [place] [address] Aug, 2014 [facility] [address] [id number] [address] [place] [address], [place] [address] Aug, 2014 [facility] [address] [id number] [address] [place] [address], [place] [address] Aug, 2014 [facility] [address] [id number] [address] [place] [address], [place] [address] Aug, [facility] [address] [id number] [address] [place] [address], [place] [address] Aug, [facility] [address] [id number] [address] [place] [address], [place] [address] Jul, [facility] [address] [id number] [address] [place] [address], [place] [address] Jul, [facility] [address] [id number] [address] [place] [address], [place] [address] Jun, [facility] [address] [id number] [address] [place] [address], [place] [address] Jun, [facility] [address] [id number] [address] [place] [address], [place] [address] May, [facility] [address] [id number] [address] [place] [address], [place] [address] May, [facility] [address] [id number] [address] [place] [address], [place] [address] May, [facility] [address] [id number] [address] [place] [address], [place] [address] May, [facility] [address] [id number] [address] [place] [address] May, [facility] [address] [id number] [address] [place] [address], [place] [address] May, [facility] [address] [id number] [address] [place] [address], [place] [address] Apr, [facility] [address] [id number] [address] [place] [address], [place] [address] Apr, [facility] [address] [id number] [address] [place] [address], [place] [address] Apr, [facility] [address] [id number] [address] [place] [address], [place] [address] Apr, [facility] [address] [id number] [address] [place] [address], [place] [address] 22 Mar, 2014 [facility] [address] [id number] [address] [place] [address], [place] [address] 22 Mar, 2014 [facility] [address] [id number] [address] [place] [address], [place] [address] 19 Mar, 2013 [facility] [address] [id number] [address] [place] [address], [place] [address] 16 Mar, 2013 [facility] [address] [id number] [address] [place] [address], [place] [address] 16 Mar, 2013 [facility] [address] [id number] [address] [place] [address], [place] [address] 15 Mar, 2013 [facility] [address] [id number] [address] [place] [address], [place] [address] 11 Sep, 2013 [facility] [address] [id number] [address] [place] [address], [place] [address] 11 Sep, 2013 [facility] [address] [id number] [address] [place] [address], [place] [address] 11 Sep, 2013 [facility] [address] [id number] [address] [place] [address], [place] [address] 11 Mar, 2013 [facility] [address] [id number] [address] [place] [address], [place] [address] Mar, 2013 [facility] [address] [id number] [address] [place] [address], [place] [address] Mar, 2013 [facility] [address] [id number] [address] [place] [address], [place] [address] Mar, [facility] [address] [id number] [address] [place] [address], [place] [address] Mar, [facility] [address] [id number] [address] [place] [address], [place] [address] Mar, [facility] [address] [id number] [address] [place] [address], [place] [address] Feb, [facility] [address] [id number] [address] [place] [address], [place] [address] Feb, [facility] [address] [id number] [address] [place] [address], [place] [address] Feb, [facility] [address] [id number] [address] [place] [address], [place] [address] Feb, [facility] [address] [id number] [address] [place] [address], [place] [address] Feb, [facility] [address] [id number] [address] [place] [address], [place] [address] Feb, [facility] [address] [id number] [address] [place] [address], [place] [address] Feb, [facility] [address] [id number] [address] [place] [address], [place] [address] Feb, [facility] [address] [id number] [address] [place] [address], [place] [address] Feb, [facility] [address] [id number] [address] [place] [address], [place] [address] Feb, [facility] [address] [id number] [address] [place] [address], [place] [address] Feb, [facility] [address] [id number] [address] [place] [address], [place] [address] Feb, [facility] [address] [id number] [address] [place] [address], [place] [address] Feb, [facility] [address] [id number] [address] [place] [address], [place] [address] Feb, [facility] [address] [id number] [address] [place] [address], [place] [address] Jan, [facility] [address] [id number] [address] [place] [address], [place] [address] Jan, [facility] [address] [id number] [address] [place] [address], [place] [address] Jan, [facility] [address] [id number] [address] [place] [address], [place] [address] Jan, [facility] [address] [id number] [address] [place] [address], [place] [address] Jan, [facility] [address] [id number] [address] [place] [address], [place] [address] Jan, [facility] [address] [id number] [address] [place] [address], [place] [address] Jan, [facility] [address] [id number] [address] [place] [address], [place] [address] Dec, [facility] [address] [id number] [address] [place] [address], [place] [address] Dec, [facility] [address] [id number] [address] [place] [address], [place] [address] Dec, [facility] [address] [id number] [address] [place] [address], [place] [address] Dec, [facility] [address] [id number] [address] [place] [address], [place] [address] Dec, [facility] [address] [id number] [address] [place] [address], [place] [address] Dec, [facility] [address] [id number] [facility] [place] [address] Dec, [facility] [address] [id number] [address] [place] [address], [place] [address] Dec, [facility] [address] [id number] [address] [place] [address], [place] [address] Dec, [facility] [address] [id number] [address] [place] [address], [place] [address] November, [facility] [address] [id number] [address] [place] [address], [place] [address] November, [facility] [address] [id number] [address] [place] [address], [place] [address] November, [facility] [address] [id number] [address] [place] [address], [place] [address] November, [facility] [address] [id number] [address] [place] [address], [place] [address] November, [facility] [address] [id number] [address] [place] [address], [place] [address] November, [facility] [address] [id number] [address] [place] [address], [place] [address] November, [facility] [address] [id number] [address] [place] [address], [place] [address] November, [facility] [address] [id number] [address] [place] [address], [place] [address] November, [facility] [address] [id number] [address] [place] [address], [place] [address] November, [facility] [address] [id number] [address] [place] [address], [place] [address] November, [facility] [address] [id number] [address] [place] [address], [place] [address] November, [facility] [address] [id number] [address] [place] [address], [place] [address] November, [facility] [address] [id number] [address] [place] [address], [place] [address] November, [facility] [address] [id number] [address] [place] [address], [place] [address] Oct, [facility] [address] [id number] [address] [place] [address], [place] [address] Oct, [facility] [address] [id number] [address] [place] [address], [place] [address] Oct, [facility] [address] [id number] [address] [place] [address], [place] [address] Oct, [facility] [address] [id number] [address] [place] [address], [place] [address] Oct, [facility] [address] [id number] [address] [place] [address], [place] [address] Oct, [facility] [address] [id number] [address] [place] [address], [place] [address] Sep, [facility] [address] [id number] [address] [place] [address], [place] [address] Sep, [facility] [address] [id number] [address] [place] [address], [place] [address] Sep, [facility] [address] [id number] [address] [place] [address], [place] [address] Sep, [facility] [address] [id number] [address] [place] [address], [place] [address] Aug, [facility] [address] [id number] [address] [place] [address], [place] [address] Aug, [facility] [address] [id number] [address] [place] [address], [place] [address] Aug, [facility] [address] [id number] [address] [place] [address], [place] [address] Aug, [facility] [address] [id number] [address] [place] [address], [place] [address] Jul, [facility] [address] [id number] [address] [place] [address], [place] [address] Jul, [facility] [address] [id number] [address] [place] [address], [place] [address] Jul, [facility] [address] [id number] [address] [place] [address], [place] [address] Jul, [facility] [address] [id number] [address] [place] [address], [place] [address] Jul, [facility] [address] [id number] [address] [place] [address], [place] [address] Jul, [facility] [address] [id number] [address] [place] [address], [place] [address] Jul, [facility] [address] [id number] [address] [place] [address], [place] [address] Jun, [facility] [address] [id number] [address] [place] [address], [place] [address] Jun, [facility] [address] [id number] [address] [place] [address], [place] [address] Jun, [facility] [address] [id number] [address] [place] [address], [place] [address] 17 Jun, 2013 [facility] [place] [address] [id number] [address] [place] [address], [place] [address] Jun, [facility] [address] [id number] [address] [place] [address], [place] [address] Jun, [facility] [address] [id number] [address] [place] [address], [place] [address] May, [facility] [address] [id number] [address] [place] [address], [place] [address] May, [facility] [address] [id number] [address] [place] [address], [place] [address] 15 Apr, 2013 [facility] [address] [id number] [address] [place] [address], [place] [address] 15 Apr, 2013 [facility] [address] [id number] [address] [place] [address], [place] [address] 10 Apr, 2013 [facility] [address] [id number] [address] [place] [address], [place] [address] 10 Apr, 2013 [facility] [address] [id number] [address] [place] [address], [place] [address] 08 Apr, 2013 [facility] [address] [id number] [address] [place] [address], [place] [address] 24 Mar, 2013 [facility] [address] [id number] [address] [place] [address], [place] [address] 19 Mar, 2013 [facility] [address] [id number] [address] [place] [address], [place] [address] Mar, [facility] [address] [id number] [address] [place] [address], [place] [address] Mar, [facility] [address] [id number] [address] [place] [address], [place] [address] Feb, [facility] [address] [id number] [address] [place] [address], [place] [address] Feb, [facility] [address] [id number] [address] [place] [address], [place] [address] Jan, [facility] [address] [id number] [address] [place] [address], [place] [address] Jan, [facility] [address] [id number] [address] [place] [address], [place] [address] Jan, [facility] [address] [id number] [address] [place] [address], [place] [address] Jan, [facility] [address] [id number] [address] [place] [address], [place] [address] Dec, [facility] [address] [id number] [address] [place] [address], [place] [address] 15 Dec, 2012 [facility] [address] [id number] [address] [place] [address], [place] [address] 07 Dec, 2012 [facility] [address] [id number] [address] [place] [address], [place] [address] 06 Dec, 2012 [facility] [address] [id number] [address] [place] [address], [place] [address] 16 Nov, 2012 [facility] [address] [id number] [address] [place] [address], [place] [address] November, [facility] [address] [id number] [address] [place] [address], [place] [address] Oct, [facility] [address] [id number] [address] [place] [address], [place] [address] Sep, [facility] [address] [id number] [address] [place] [address], [place] [address] Sep, [facility] [address] [id number] [address] [place] [address], [place] [address] 14 Aug, 2012 [facility] [address] [id number] [address] [place] [address], [place] [address] Aug, [facility] [address] [id number] [address] [place] [address], [place] [address] Jul, [facility] [address] [id number] [address] [place] [address], [place] [address] Jul, [facility] [address] [id number] [address] [place] [address], [place] [address] Jul, [facility] [address] [id number] [address] [place] [address], [place] [address] Jun, [facility] [address] [id number] [address] [place] [address], [place] [address] Jun, [facility] [place] [address] [id number] [address] [place] [address], [place] [address] Jun, [facility] [address] [id number] [address] [place] [address], [place] [address] 15 Jun, 2012 [facility] [address] [id number] [address] [place] [address], [place] [address] May, [facility] [address] [id number] [address] [place] [address], [place] [address] May, [facility] [address] [id number] [address] [place] [address], [place] [address] May, [facility] [address] [id number] [address] [place] [address], [place] [address] May, [facility] [address] [id number] [address] [place] [address], [place] [address] May, [facility] [address] [id number] [address] [place] [address], [place] [address] May, [facility] [address] [id number] [address] [place] [address] May, [facility] [address] [id number] [address] [place] [address], [place] [address] 15 Apr, 2012 [facility] [address] [id number] [address] [place] [address] 15 Apr, 2012 [facility] [address] [id number] [address] [place] [address] 15 Apr, 2012 [facility] [address] [id number] [address] [place] [address] Apr, [facility] [address] [id number] [address] [place] [address], [place] [address] Apr, [facility] [address] [id number] [address] [place] [address] Apr, [facility] [address] [id number] [address] [place] [address] Apr, [facility] [address] [id number] [address] [place] [address], [place] [address] Apr, [facility] [address] [id number] [address] [place] [address], [place] [address] Jan, [facility] [address] [id number] [address] [place] [address], [place] [address] Jan, [facility] [address] [id number] [address] [place] [address], [place] [address] Dec, [facility] [address] [id number] [address] [place] [address], [place] [address] November, [facility] [address] [id number] [address] [place] [address], [place] [address] Oct, [facility] [address] [id number] [address] [place] [address], [place] [address] Oct, [facility] [address] [id number] [address] [place] [address], [place] [address] Oct, [facility] [address] [id number] [address] [place] [address], [place] [address] Oct, [facility] [address] [id number] [address] [place] [address], [place] [address] Sep, [facility] [address] [id number] [address] [place] [address], [place] [address] Sep, [facility] [address] [id number] [address] [place] [address], [place] [address] Sep, [facility] [address] [id number] [address] [place] [address], [place] [address] Jun, [facility] [address] [id number] [address] [place] [address], [place] [address] Jun, [facility] [address] [id number] [address] [place] [address], [place] [address] May, [facility] [address] [id number] [address] [place] [address], [place] [address] 14 Jan, 2011 [facility] [address] [id number] [address] [place] [address] November, [facility] [address] [id number] [address] [place] [address] 14 Oct, 2010 [facility] [address] [id number] [address] [place] [address] 16 Sep, 2010 [facility] [address] [id number] [address] [place] [address] 30 May, 2010 [facility] [address] [id number] [address] [place] [address] Jul, [facility] [address] [id number] [address] [place] [address] Jun, [facility] [address] [id number] [address] [place] [address] Jun, [facility] [address] [id number] [address] [place] [address] Jun, [facility] [address] [id number] [address] [place] [address] Jun, [facility] [address] [id number] [address] [place] [address] May, [facility] [address] [id number] [address] [place] [address] May, [facility] [address] [id number] [address] [place] [address] Apr, [facility] [address] [id number] [address] [place] [address] Apr, [facility] [address] [id number] [address] [place] [address] Apr, IMMUNIZATIONS No Known Immunizations SOCIAL HISTORY [...] right 06/1996 Surgical History multiple knee injections ([id number]) Surgical History left knee replacement 06/11 Hospitalization History Knee surgery- x 3 days 06/11
--- OUTSIDE RECORDS SUMMARY | 2019-12-16 20:38 | XMS REPORT ---
Author Author Patti Guzman Doctor Organization [facility] Address Unknown Phone Unavailable Care Team Providers Care Senior Data Quality Analyst Name Role Phone Migration, Doctor Unavailable Unavailable PROBLEMS Type Condition ICD9-CM Code [id number] Code Onset Dates Condition S tatus SNOMED Code Problem Drug abuse counseling and surveillance of drug abuser Z71.51 Active 150999945 Problem Joint pain M25.50 Active 59932148 Problem ADD (attention deficit disorder) F90.0 Active 564764514 Problem Manic bipolar I disorder in partial remission F31. 73 Active 29511359 Problem Edema, unspecified type R60.9 Active 349841318 Problem Episode of recurrent major d epressive disorder, unspecified depression episode severity F33.9 Active 415678327 Problem ADD (attention deficit disorder) without hyperactivity F98.8 Active 33932092 Problem Social anxiety disorder F40.10 Active 83611500 Problem Carpal tunnel syndrome on left G56.02 Active 112276919798284 Problem Insomnia G47.00 Active 830236729 Problem Venous insufficiency (chronic) (peripheral) I87.2 Active [id number] Problem Other chronic pain G89.29 Active 8 8084834 Problem Stimulant abuse F15.10 Active 4415 21140 Problem Bipolar II disorder F31.81 Active 94367718 ALLERGIES No Information ENCOUNTERS Encounter Location Date Diagnosis [place] [id number] [facility] [id number] [address] [place] [phone] Oct, [facility] [address] [facility] [id number] [address] [place] [phone] May, Screening for lipid disorder s Z13.220 [facility] [address] [place] [id number] [address] [place] [phone] May, Carpal tunnel syndrome on le ft G56.02 ; Social anxiety disorder F40.10 and Screening for lipid disorders Z13.220 [facility] [address] [facility] [id number] [address] [place] [address] Apr, Bipolar II disorder F31.81 ; Social anxiety disorder F40.10 ; ADD (attention deficit disorder) without hyperactivity F98.8 and BMI 45.0-49.9, adult Z68.42 [place] [id number] [facility] [id number] [address] [place] [address] Mar, [place] [address] [facility] [id number] [address] [place] [id number] 17 Feb, 2018 BMI 45.0-49.9, adult Z68.42 ; Carpal tunnel syndrome on left G56.02 and Social anxiety disorder F40.10 [place] [address] [facility] [id number] [address] [place] [phone] Jan, Bipolar II disorder F31.81 ; ADD (attention deficit disorder) without hyperactivity F98.8 ; Social anxiety disorder F40.10 and Stimulant abuse F15.10 [place] [address] [place] [id number] [place] [phone] Dec, Episode of recurrent major d epressive disorder, unspecified depression episode severity F33.9 ; Other chronic pain G89.29 ; Radiculopathy, lumbar region M54.16 ; Edema of lower extremity R60.0 and BMI 45.0-49.9, adult Z68.42 [place] [address] [place] [id number] [address] [place] [phone] Jun, [place] [address] [place] [id number] [address] [place] [address] Jan, Joint pain M25.50 [place] [address] [place] [id number] [address] [place] [phone] Jan, Wellness examination Z00.00 ; Pain in right knee M25.561 ; Pain in left knee M25.562 ; Edema, unspecified type R60.9 and Drug abuse counseling and surveillance of drug abuser Z71.51 [place] [address] [place] [id number] [address] [place] [phone] November, [place] [address] [facility] [id number] [address] [place] [phone] Oct, [facility] [address] [facility] [id number] [address] [place] [phone] Oct, ADD (attention deficit disor josselin) F90.0 ; Social anxiety disorder F40.10 and Manic bipolar I disorder in partial remission F31.73 [facility] [address] [facility] [id number] [address] [place] [phone] Aug, [facility] [address] [facility] [id number] [address] [place] [phone] Aug, [facility] [address] [facility] [id number] [address] [place] [phone] Aug, [facility] [address] [place] [id number] [address] [place] [phone] Jul, [facility] [address] [facility] [id number] [address] [place] [phone] Jul, [facility] [address] [facility] [id number] [address] [place] [phone] Jul, [facility] [address] [place] [id number] [address] [place] [phone] Jun, [facility] [address] [place] [id number] [address] [place] [phone] Jun, [facility] [address] [facility] [id number] [address] [place] [phone] Jun, [facility] [address] [facility] [id number] [address] [place] [phone] Jun, [facility] [address] [place] [id number] [address] [place] [phone] May, Joint pain M25.50 ; ADD (att ention deficit disorder) F90.0 ; Edema R60.9 and Insomnia G47.00 [facility] [address] [facility] [id number] [address] [place] [phone] May, [facility] [address] [facility] [id number] [address] [place] [phone] May, [facility] [address] [facility] [id number] [address] [place] [phone] May, [facility] [address] [facility] [id number] [address] [place] [address] May, Left wrist pain M25.532 ; Si nusitis J32.9 and Drug abuse counseling and surveillance of drug abuser Z71.51 [facility] [address] [facility] [id number] [address] [place] [phone] Apr, [facility] [address] [facility] [id number] [address] [place] [phone] Apr, [facility] [address] [facility] [id number] [address] [place] [phone] Apr, [facility] [address] [facility] [id number] [address] [place] [phone] Apr, [facility] [address] [facility] [id number] [address] [place] [phone] Apr, [facility] [address] [facility] [id number] [address] [place] [phone] Apr, [facility] [address] [facility] [id number] [address] [place] [phone] Apr, [facility] [address] [facility] [id number] [address] [place] [address] Mar, Unspecified venous (peripher al) insufficiency 459.81 ; Bipolar I disorder, most recent episode (or current) manic, moderate 296.42 ; Social phobia 300.23 ; Attention deficit disorder of childhood without mention of hyperactivity 314.00 ; Pain in joint, lower leg 719.46 ; Thrombosis 453.9 and Chronic pain 338.29 [facility] [address] [facility] [id number] [address] [place] [phone] Mar, [facility] [address] [id number] [address] [place] [phone] 18 Mar, 2015 [facility] [address] [id number] [address] [place] [phone] 18 Mar, 2015 [facility] [address] [facility] [id number] [address] [place] [phone] Mar, [facility] [address] [facility] [id number] [address] [place] [phone] Mar, [facility] [address] [facility] [id number] [address] [place] [phone] Mar, [facility] [address] [facility] [id number] [address] [place] [phone] Mar, Manic bipolar I disorder in partial remission 296.45 ; Social phobia 300.23 and Attention deficit disorder of childhood without mention of hyperactivity 314.00 [facility] [address] [facility] [id number] [address] [place] [phone] Mar, [facility] [address] [facility] [id number] [address] [place] [phone] Feb, [facility] [address] [facility] [id number] [address] [place] [phone] Feb, Thrombosis 453.9 ; Unspecifi ed venous (peripheral) insufficiency 459.81 ; Bipolar I disorder, most recent episode (or current) manic, moderate 296.42 ; Social phobia 300.23 ; Attention deficit disorder of childhood without mention of hyperactivity 314.00 ; Pain in joint, lower leg 719.46 and Edema 782.3 [facility] [address] [facility] [id number] [address] [place] [phone] Feb, [facility] [address] [facility] [id number] [address] [place] [phone] Feb, Social phobia 300.23 ; Atten tion deficit disorder of childhood without mention of hyperactivity 314.00 and Bipolar I disorder, most recent episode manic, in partial remission 296.45 [facility] [address] [facility] [id number] [address] [place] [phone] Jan, [facility] [address] [facility] [id number] [address] [place] [phone] Jan, [facility] [address] [facility] [id number] [address] [place] [phone] Jan, Unspecified venous (peripher al) insufficiency 459.81 and Thrombophlebitis 451.9 [facility] [address] [place] [id number] [address] [place] [phone] Jan, [facility] [address] [facility] [id number] [address] [place] [phone] Dec, Headache 784.0 and Back pain 724.5 [facility] [address] [place] [id number] [address] [place] [phone] Dec, [facility] [address] [place] [id number] [place] [address] Dec, Bipolar I disorder, most rec ent episode (or current) manic, moderate 296.42 ; Attention deficit disorder of childhood without mention of hyperactivity 314.00 and Social phobia 300.23 [facility] [address] [place] [id number] [address] [place] [phone] November, [facility] [address] [place] [id number] [address] [place] [phone] November, [facility] [address] [facility] [id number] [address] [place] [phone] Oct, [facility] [address] [place] [id number] [address] [place] [phone] Oct, [facility] [address] [place] [id number] [address] [place] [phone] Sep, [facility] [address] [place] [id number] [address] [place] [phone] Sep, [facility] [address] [place] [id number] [address] [place] [phone] Aug, 2014 [facility] [address] [id number] [address] [place] [address], [place] [address] Aug, 2014 [facility] [address] [id number] [address] [place] [address], [place] [address] Aug, 2014 [facility] [address] [id number] [address] [place] [address], [place] [address] Aug, 2014 [facility] [address] [id number] [address] [place] [address], [place] [address] Aug, 2014 [facility] [address] [id number] [address] [place] [address], [place] [address] Aug, [facility] [address] [id number] [address] [place] [address], [place] [address] Aug, [facility] [address] [id number] [address] [place] [address], [place] [address] Jul, [facility] [address] [id number] [address] [place] [address], [place] [address] Jul, [facility] [address] [id number] [address] [place] [address], [place] [address] Jun, [facility] [address] [id number] [address] [place] [address], [place] [address] Jun, [facility] [address] [id number] [address] [place] [address], [place] [address] May, [facility] [address] [id number] [address] [place] [address], [place] [address] May, [facility] [address] [id number] [address] [place] [address], [place] [address] May, [facility] [address] [id number] [address] [place] [address], [place] [address] May, [facility] [address] [id number] [address] [place] [phone] May, [facility] [address] [id number] [address] [place] [address], [place] [address] May, [facility] [address] [id number] [address] [place] [address], [place] [address] Apr, [facility] [address] [id number] [address] [place] [address], [place] [address] Apr, [facility] [address] [id number] [address] [place] [address], [place] [address] Apr, [facility] [address] [id number] [address] [place] [address], [place] [address] Apr, [facility] [address] [id number] [address] [place] [address], [place] [address] 22 Mar, 2014 [facility] [address] [id number] [address] [place] [address], [place] [address] 22 Mar, 2014 [facility] [address] [id number] [address] [place] [address], [place] [address] 19 Mar, 2013 [facility] [address] [id number] [address] [place] [address], [place] [address] 16 Mar, 2013 [facility] [address] [id number] [address] [place] [address], [place] [address] 16 Mar, 2013 [facility] [address] [id number] [address] [place] [address], [place] [address] 15 Mar, 2013 [facility] [address] [id number] [address] [place] [address], [place] [address] 11 Sep, 2013 [facility] [address] [id number] [address] [place] [address], [place] [address] 11 Sep, 2013 [facility] [address] [id number] [address] [place] [address], [place] [address] 11 Sep, 2013 [facility] [address] [id number] [address] [place] [address], [place] [address] 11 Mar, 2013 [facility] [address] [id number] [address] [place] [address], [place] [address] Mar, 2013 [facility] [address] [id number] [address] [place] [address], [place] [address] Mar, 2013 [facility] [address] [id number] [address] [place] [address], [place] [address] Mar, [facility] [address] [id number] [address] [place] [address], [place] [address] Mar, [facility] [address] [id number] [address] [place] [address], [place] [address] Mar, [facility] [address] [id number] [address] [place] [address], [place] [address] Feb, [facility] [address] [id number] [address] [place] [address], [place] [address] Feb, [facility] [address] [id number] [address] [place] [address], [place] [address] Feb, [facility] [address] [id number] [address] [place] [address], [place] [address] Feb, [facility] [address] [id number] [address] [place] [address], [place] [address] Feb, [facility] [address] [id number] [address] [place] [address], [place] [address] Feb, [facility] [address] [id number] [address] [place] [address], [place] [address] Feb, [facility] [address] [id number] [address] [place] [address], [place] [address] Feb, [facility] [address] [id number] [address] [place] [address], [place] [address] Feb, [facility] [address] [id number] [address] [place] [address], [place] [address] Feb, [facility] [address] [id number] [address] [place] [address], [place] [address] Feb, [facility] [address] [id number] [address] [place] [address], [place] [address] Feb, [facility] [address] [id number] [address] [place] [address], [place] [address] Feb, [facility] [address] [id number] [address] [place] [address], [place] [address] Feb, [facility] [address] [id number] [address] [place] [address], [place] [address] Jan, [facility] [address] [id number] [address] [place] [address], [place] [address] Jan, [facility] [address] [id number] [address] [place] [address], [place] [address] Jan, [facility] [address] [id number] [address] [place] [address], [place] [address] Jan, [facility] [address] [id number] [address] [place] [address], [place] [address] Jan, [facility] [address] [id number] [address] [place] [address], [place] [address] Jan, [facility] [address] [id number] [address] [place] [address], [place] [address] Jan, [facility] [address] [id number] [address] [place] [address], [place] [address] Dec, [facility] [address] [id number] [address] [place] [address], [place] [address] Dec, [facility] [address] [id number] [address] [place] [address], [place] [address] Dec, [facility] [address] [id number] [address] [place] [address], [place] [address] Dec, [facility] [address] [id number] [address] [place] [address], [place] [address] Dec, [facility] [address] [id number] [address] [place] [address], [place] [address] Dec, [facility] [address] [id number] [facility] [place] [address] Dec, [facility] [address] [id number] [address] [place] [address], [place] [address] Dec, [facility] [address] [id number] [address] [place] [address], [place] [address] Dec, [facility] [address] [id number] [address] [place] [address], [place] [address] November, [facility] [address] [id number] [address] [place] [address], [place] [address] November, [facility] [address] [id number] [address] [place] [address], [place] [address] November, [facility] [address] [id number] [address] [place] [address], [place] [address] November, [facility] [address] [id number] [address] [place] [address], [place] [address] November, [facility] [address] [id number] [address] [place] [address], [place] [address] November, [facility] [address] [id number] [address] [place] [address], [place] [address] November, [facility] [address] [id number] [address] [place] [address], [place] [address] November, [facility] [address] [id number] [address] [place] [address], [place] [address] November, [facility] [address] [id number] [address] [place] [address], [place] [address] November, [facility] [address] [id number] [address] [place] [address], [place] [address] November, [facility] [address] [id number] [address] [place] [address], [place] [address] November, [facility] [address] [id number] [address] [place] [address], [place] [address] November, [facility] [address] [id number] [address] [place] [address], [place] [address] November, [facility] [address] [id number] [address] [place] [address], [place] [address] Oct, [facility] [address] [id number] [address] [place] [address], [place] [address] Oct, [facility] [address] [id number] [address] [place] [address], [place] [address] Oct, [facility] [address] [id number] [address] [place] [address], [place] [address] Oct, [facility] [address] [id number] [address] [place] [address], [place] [address] Oct, [facility] [address] [id number] [address] [place] [address], [place] [address] Oct, [facility] [address] [id number] [address] [place] [address], [place] [address] Sep, [facility] [address] [id number] [address] [place] [address], [place] [address] Sep, [facility] [address] [id number] [address] [place] [address], [place] [address] Sep, [facility] [address] [id number] [address] [place] [address], [place] [address] Sep, [facility] [address] [id number] [address] [place] [address], [place] [address] Aug, [facility] [address] [id number] [address] [place] [address], [place] [address] Aug, [facility] [address] [id number] [address] [place] [address], [place] [address] Aug, [facility] [address] [id number] [address] [place] [address], [place] [address] Aug, [facility] [address] [id number] [address] [place] [address], [place] [address] Jul, [facility] [address] [id number] [address] [place] [address], [place] [address] Jul, [facility] [address] [id number] [address] [place] [address], [place] [address] Jul, [facility] [address] [id number] [address] [place] [address], [place] [address] Jul, [facility] [address] [id number] [address] [place] [address], [place] [address] Jul, [facility] [address] [id number] [address] [place] [address], [place] [address] Jul, [facility] [facility] [address] [id number] [address] [place] [address], [place] [address] Jul, [facility] [address] [id number] [address] [place] [address], [place] [address] Jun, [facility] [address] [id number] [address] [place] [address], [place] [address] Jun, [facility] [address] [id number] [address] [place] [address], [place] [address] Jun, [facility] [address] [id number] [address] [place] [address], [place] [address] 17 Jun, 2013 [facility] [address] [id number] [address] [place] [address], [place] [address] Jun, [facility] [address] [id number] [address] [place] [address], [place] [address] Jun, [facility] [address] [id number] [address] [place] [address], [place] [address] May, [facility] [address] [id number] [address] [place] [address], [place] [address] May, [facility] [address] [id number] [address] [place] [address], [place] [address] 15 Apr, 2013 [facility] [address] [id number] [address] [place] [address], [place] [address] 15 Apr, 2013 [facility] [address] [id number] [address] [place] [address], [place] [address] 10 Apr, 2013 [facility] [address] [id number] [address] [place] [address], [place] [address] 10 Apr, 2013 [facility] [address] [id number] [address] [place] [address], [place] [address] 08 Apr, 2013 [facility] [address] [id number] [address] [place] [address], [place] [address] 24 Mar, 2013 [facility] [address] [id number] [address] [place] [address], [place] [address] 19 Mar, 2013 [facility] [address] [id number] [address] [place] [address], [place] [address] Mar, [facility] [address] [id number] [address] [place] [address], [place] [address] Mar, [facility] [address] [id number] [address] [place] [address], [place] [address] Feb, [facility] [address] [id number] [address] [place] [address], [place] [address] Feb, [facility] [address] [id number] [address] [place] [address], [place] [address] Jan, [facility] [address] [id number] [address] [place] [address], [place] [address] Jan, [facility] [address] [id number] [address] [place] [address], [place] [address] Jan, [facility] [address] [id number] [address] [place] [address], [place] [address] Jan, [facility] [address] [id number] [address] [place] [address], [place] [address] Dec, [facility] [address] [id number] [address] [place] [address], [place] [address] 15 Dec, 2012 [facility] [address] [id number] [address] [place] [address], [place] [address] 07 Dec, 2012 [facility] [address] [id number] [address] [place] [address], [place] [address] 06 Dec, 2012 [facility] [address] [id number] [address] [place] [address], [place] [address] 16 Nov, 2012 [facility] [address] [id number] [address] [place] [address], [place] [address] November, [facility] [address] [id number] [address] [place] [address], [place] [address] Oct, [facility] [address] [id number] [address] [place] [address], [place] [address] Sep, [facility] [address] [id number] [address] [place] [address], [place] [address] Sep, [facility] [address] [id number] [address] [place] [address], [place] [address] 14 Aug, 2012 [facility] [address] [id number] [address] [place] [address], [place] [address] Aug, [facility] [address] [id number] [address] [place] [address], [place] [address] Jul, [facility] [address] [id number] [address] [place] [address], [place] [address] Jul, [facility] [address] [id number] [address] [place] [address], [place] [address] Jul, [facility] [address] [id number] [address] [place] [address], [place] [address] Jun, [facility] [address] [id number] [address] [place] [address], [place] [address] Jun, [facility] [address] [id number] [address] [place] [address], [place] [address] Jun, [facility] [address] [id number] [address] [place] [address], [place] [address] 15 Jun, 2012 [facility] [address] [id number] [address] [place] [address], [place] [address] May, [facility] [address] [id number] [address] [place] [address], [place] [address] May, [facility] [address] [id number] [address] [place] [address], [place] [address] May, [facility] [address] [id number] [address] [place] [address], [place] [address] May, [facility] [address] [id number] [address] [place] [address], [place] [address] May, [facility] [address] [id number] [address] [place] [address], [place] [address] May, [facility] [address] [id number] [address] [place] [address] May, [facility] [address] [id number] [address] [place] [address], [place] [address] 15 Apr, 2012 [facility] [address] [id number] [address] [place] [address] 15 Apr, 2012 [facility] [address] [id number] [address] [place] [id number] 15 Apr, 2012 [facility] [address] [id number] [address] [place] [address] Apr, [facility] [address] [id number] [address] [place] [address], [place] [address] Apr, [facility] [address] [id number] [address] [place] [id number] Apr, [facility] [address] [id number] [address] [place] [address] Apr, [facility] [address] [id number] [address] [place] [address], [place] [address] Apr, [facility] [address] [id number] [address] [place] [address], [place] [address] Jan, [facility] [address] [id number] [address] [place] [address], [place] [address] Jan, [facility] [address] [id number] [address] [place] [address], [place] [address] Dec, [facility] [address] [id number] [address] [place] [address], [place] [address] November, [facility] [address] [id number] [address] [place] [address], [place] [address] Oct, [facility] [address] [id number] [address] [place] [address], [place] [address] Oct, [facility] [address] [id number] [address] [place] [address], [place] [address] Oct, [facility] [address] [id number] [address] [place] [address], [place] [address] Oct, [facility] [address] [id number] [address] [place] [address], [place] [address] Sep, [facility] [address] [id number] [address] [place] [address], [place] [address] Sep, [facility] [address] [id number] [address] [place] [address], [place] [address] Sep, [facility] [address] [id number] [address] [place] [address], [place] [address] Jun, [facility] [address] [id number] [address] [place] [address], [place] [address] Jun, [facility] [address] [id number] [address] [place] [address], [place] [address] May, [facility] [address] [id number] [address] [place] [address], [place] [address] 14 Jan, 2011 [facility] [address] [id number] [address] [place] [id number] November, [facility] [address] [id number] [address] [place] [id number] 14 Oct, 2010 [facility] [address] [id number] [address] [place] [id number] 16 Sep, 2010 [facility] [address] [id number] [address] [place] [id number] 30 May, 2010 [facility] [address] [id number] [address] [place] [id number] Jul, [facility] [address] [id number] [address] [place] [id number] Jun, [facility] [address] [id number] [address] [place] [id number] Jun, [facility] [address] [id number] [address] [place] [phone] Jun, [facility] [address] [id number] [address] [place] [id number] Jun, [facility] [address] [id number] [address] [place] [phone] May, [facility] [address] [id number] [address] [place] [phone] May, [facility] [address] [id number] [address] [place] [phone] Apr, [facility] [address] [id number] [address] [place] [id number] Apr, [facility] [address] [id number] [address] [place] [phone] Apr, IMMUNIZATIONS No Known Immunizations SOCIAL HISTORY Never Assessed [place]AS[place] FOR [place]IT [place] [place] VITAL SIGNS MEDICATIONS Unknown [...] right 06/1996 Surgical History multiple knee injections ([id number]) Surgical History left knee replacement 06/11 Hospitalization History Knee surgery- x 3 days 06/11
--- OUTSIDE RECORDS SUMMARY | 2019-12-16 20:38 | XMS REPORT ---
Author Author Patti Guzman Doctor Organization [facility] Address Unknown Phone Unavailable Care Team Providers Care Water Pumper Name Role Phone Migration, Doctor Unavailable Unavailable PROBLEMS Type Condition ICD9-CM Code YTS13-TH Code Onset Dates Condition S tatus SNOMED Code Problem Drug abuse counseling and surveillance of drug abuser Z71.51 Active 408412481 Problem Joint pain M25.50 Active 19830090 Problem ADD (attention deficit disorder) F90.0 Active 991632410 Problem Manic bipolar I disorder in partial remission F31. 73 Active 09358442 Problem Edema, unspecified type R60.9 Active 666211849 Problem Episode of recurrent major d epressive disorder, unspecified depression episode severity F33.9 Active 519705030 Problem ADD (attention deficit disorder) without hyperactivity F98.8 Active 89821995 Problem Social anxiety disorder F40.10 Active 90047956 Problem Carpal tunnel syndrome on left G56.02 Active [id number] Problem Insomnia G47.00 Active 912344917 Problem Venous insufficiency (chronic) (peripheral) I87.2 Active [id number] Problem Other chronic pain G89.29 Active 8 9938242 Problem Stimulant abuse F15.10 Active 4415 02246 Problem Bipolar II disorder F31.81 Active 94679107 ALLERGIES No Information ENCOUNTERS Encounter Location Date Diagnosis [place] [id number] [facility] [id number] [address] [place] [phone] Oct, [facility] [address] [facility] [id number] [address] [place] [phone] May, Screening for lipid disorder s Z13.220 [facility] [address] [place] [id number] [address] [place] [address] May, Carpal tunnel syndrome on le ft G56.02 ; Social anxiety disorder F40.10 and Screening for lipid disorders Z13.220 [place] [address] [facility] [id number] [address] [place] [address] Apr, Bipolar II disorder F31.81 ; Social anxiety disorder F40.10 ; ADD (attention deficit disorder) without hyperactivity F98.8 and BMI 45.0-49.9, adult Z68.42 [place] [address] [facility] [id number] [address] [place] [address] Mar, [place] [address] [address] [facility] [id number] [address] [place] [id number] 17 Feb, 2018 BMI 45.0-49.9, adult Z68.42 ; Carpal tunnel syndrome on left G56.02 and Social anxiety disorder F40.10 [place] [address] [address] [facility] [id number] [address] [place] [phone] Jan, Bipolar II disorder F31.81 ; ADD (attention deficit disorder) without hyperactivity F98.8 ; Social anxiety disorder F40.10 and Stimulant abuse F15.10 [place] [address] [place] [id number] [place] [address] Dec, Episode of recurrent major d epressive disorder, unspecified depression episode severity F33.9 ; Other chronic pain G89.29 ; Radiculopathy, lumbar region M54.16 ; Edema of lower extremity R60.0 and BMI 45.0-49.9, adult Z68.42 [place] [address] [place] [id number] [address] [place] [phone] Jun, [place] [address] [place] [id number] [address] [place] [address] Jan, Joint pain M25.50 [place] [address] [place] [id number] [address] [place] [address] Jan, Wellness examination Z00.00 ; Pain in right knee M25.561 ; Pain in left knee M25.562 ; Edema, unspecified type R60.9 and Drug abuse counseling and surveillance of drug abuser Z71.51 [place] [address] [place] [id number] [address] [place] [phone] November, [place] [address] [address] [facility] [id number] [address] [place] [phone] Oct, [facility] [address] [facility] [id number] [address] [place] [address] Oct, ADD (attention deficit disor josselin) F90.0 ; Social anxiety disorder F40.10 and Manic bipolar I disorder in partial remission F31.73 [facility] [address] [facility] [id number] [address] [place] [phone] Aug, [facility] [address] [facility] [id number] [address] [place] [phone] Aug, [facility] [address] [facility] [id number] [address] [place] [phone] Aug, [facility] [address] [place] [id number] [address] [place] [phone] Jul, [facility] [address] [facility] [id number] [address] [place] [phone] Jul, [facility] [address] [facility] [id number] [address] [place] [phone] Jul, [facility] [address] [place] [id number] [address] [place] [phone] Jun, [facility] [address] [place] [id number] [address] [place] [phone] Jun, [facility] [address] [facility] [id number] [address] [place] [phone] Jun, [facility] [address] [facility] [id number] [address] [place] [phone] Jun, [facility] [address] [place] [id number] [address] [place] [phone] May, Joint pain M25.50 ; ADD (att ention deficit disorder) F90.0 ; Edema R60.9 and Insomnia G47.00 [facility] [address] [facility] [id number] [address] [place] [phone] May, [facility] [address] [facility] [id number] [address] [place] [phone] May, [facility] [address] [facility] [id number] [address] [place] [phone] May, [facility] [address] [facility] [id number] [address] [place] [phone] May, Left wrist pain M25.532 ; Si nusitis J32.9 and Drug abuse counseling and surveillance of drug abuser Z71.51 [facility] [address] [facility] [id number] [address] [place] [phone] Apr, [facility] [address] [facility] [id number] [address] [place] [phone] Apr, [facility] [address] [facility] [id number] [address] [place] [phone] Apr, [facility] [address] [facility] [id number] [address] [place] [phone] Apr, [facility] [address] [facility] [id number] [address] [place] [phone] Apr, [facility] [address] [facility] [id number] [address] [place] [phone] Apr, [facility] [address] [facility] [id number] [address] [place] [phone] Apr, [facility] [address] [facility] [id number] [address] [place] [phone] Mar, Unspecified venous (peripher al) insufficiency 459.81 ; Bipolar I disorder, most recent episode (or current) manic, moderate 296.42 ; Social phobia 300.23 ; Attention deficit disorder of childhood without mention of hyperactivity 314.00 ; Pain in joint, lower leg 719.46 ; Thrombosis 453.9 and Chronic pain 338.29 [facility] [address] [facility] [id number] [address] [place] [phone] Mar, [facility] [address] [id number] [address] [place] [phone] 18 Mar, 2015 [facility] [address] [id number] [address] [place] [phone] 18 Mar, 2015 [facility] [address] [facility] [id number] [address] [place] [phone] Mar, [facility] [address] [facility] [id number] [address] [place] [phone] Mar, [facility] [address] [facility] [id number] [address] [place] [phone] Mar, [facility] [address] [facility] [id number] [address] [place] [phone] Mar, Manic bipolar I disorder in partial remission 296.45 ; Social phobia 300.23 and Attention deficit disorder of childhood without mention of hyperactivity 314.00 [facility] [address] [facility] [id number] [address] [place] [phone] Mar, [facility] [address] [facility] [id number] [address] [place] [phone] Feb, [facility] [address] [facility] [id number] [address] [place] [address] Feb, Thrombosis 453.9 ; Unspecifi ed venous (peripheral) insufficiency 459.81 ; Bipolar I disorder, most recent episode (or current) manic, moderate 296.42 ; Social phobia 300.23 ; Attention deficit disorder of childhood without mention of hyperactivity 314.00 ; Pain in joint, lower leg 719.46 and Edema 782.3 [facility] [address] [facility] [id number] [address] [place] [phone] Feb, [facility] [address] [facility] [id number] [address] [place] [phone] Feb, Social phobia 300.23 ; Atten tion deficit disorder of childhood without mention of hyperactivity 314.00 and Bipolar I disorder, most recent episode manic, in partial remission 296.45 [facility] [address] [facility] [id number] [address] [place] [phone] Jan, [facility] [address] [facility] [id number] [address] [place] [phone] Jan, [facility] [address] [facility] [id number] [address] [place] [phone] Jan, Unspecified venous (peripher al) insufficiency 459.81 and Thrombophlebitis 451.9 [facility] [address] [place] [id number] [address] [place] [phone] Jan, [facility] [address] [facility] [id number] [address] [place] [phone] Dec, Headache 784.0 and Back pain 724.5 [facility] [address] [place] [id number] [address] [place] [phone] Dec, [facility] [address] [place] [id number] [place] [phone] Dec, Bipolar I disorder, most rec ent episode (or current) manic, moderate 296.42 ; Attention deficit disorder of childhood without mention of hyperactivity 314.00 and Social phobia 300.23 [facility] [address] [place] [id number] [address] [place] [phone] November, [facility] [address] [place] [id number] [address] [place] [phone] November, [facility] [address] [facility] [id number] [address] [place] [phone] Oct, [facility] [address] [place] [id number] [address] [place] [phone] Oct, [facility] [address] [place] [id number] [address] [place] [phone] Sep, [facility] [address] [place] [id number] [address] [place] [phone] Sep, [facility] [address] [place] [id number] [address] [place] [phone] Aug, 2014 [facility] [address] [id number] [address] [place] [address], [place] [address] Aug, 2014 [facility] [address] [id number] [address] [place] [address], [place] [address] Aug, 2014 [facility] [address] [id number] [address] [place] [address], [place] [address] Aug, 2014 [facility] [address] [id number] [address] [place] [address], [place] [address] Aug, 2014 [facility] [address] [id number] [address] [place] [address], [place] [address] Aug, [facility] [address] [id number] [address] [place] [address], [place] [address] Aug, [facility] [address] [id number] [address] [place] [address], [place] [address] Jul, [facility] [address] [id number] [address] [place] [address], [place] [address] Jul, [facility] [address] [id number] [address] [place] [address], [place] [address] Jun, [facility] [address] [id number] [address] [place] [address], [place] [address] Jun, [facility] [address] [id number] [address] [place] [address], [place] [address] May, [facility] [address] [id number] [address] [place] [address], [place] [address] May, [facility] [address] [id number] [address] [place] [address], [place] [address] May, [facility] [address] [id number] [address] [place] [address], [place] [address] May, [facility] [address] [id number] [address] [place] [phone] May, [facility] [address] [id number] [address] [place] [address], [place] [address] May, [facility] [address] [id number] [address] [place] [address], [place] [address] Apr, [facility] [address] [id number] [address] [place] [address], [place] [address] Apr, [facility] [address] [id number] [address] [place] [address], [place] [address] Apr, [facility] [address] [id number] [address] [place] [address], [place] [address] Apr, [facility] [address] [id number] [address] [place] [address], [place] [address] 22 Mar, 2014 [facility] [address] [id number] [address] [place] [address], [place] [address] 22 Mar, 2014 [facility] [address] [id number] [address] [place] [address], [place] [address] 19 Mar, 2013 [facility] [address] [id number] [address] [place] [address], [place] [address] 16 Mar, 2013 [facility] [address] [id number] [address] [place] [address], [place] [address] 16 Mar, 2013 [facility] [address] [id number] [address] [place] [address], [place] [address] 15 Mar, 2013 [facility] [address] [id number] [address] [place] [address], [place] [address] 11 Sep, 2013 [facility] [address] [id number] [address] [place] [address], [place] [address] 11 Sep, 2013 [facility] [address] [id number] [address] [place] [address], [place] [address] 11 Sep, 2013 [facility] [address] [id number] [address] [place] [address], [place] [address] 11 Mar, 2013 [facility] [address] [id number] [address] [place] [address], [place] [address] Mar, 2013 [facility] [address] [id number] [address] [place] [address], [place] [address] Mar, 2013 [facility] [address] [id number] [address] [place] [address], [place] [address] Mar, [facility] [address] [id number] [address] [place] [address], [place] [address] Mar, [facility] [address] [id number] [address] [place] [address], [place] [address] Mar, [facility] [address] [id number] [address] [place] [address], [place] [address] Feb, [facility] [address] [id number] [address] [place] [address], [place] [address] Feb, [facility] [address] [id number] [address] [place] [address], [place] [address] Feb, [facility] [address] [id number] [address] [place] [address], [place] [address] Feb, [facility] [address] [id number] [address] [place] [address], [place] [address] Feb, [facility] [address] [id number] [address] [place] [address], [place] [address] Feb, [facility] [address] [id number] [address] [place] [address], [place] [address] Feb, [facility] [address] [id number] [address] [place] [address], [place] [address] Feb, [facility] [address] [id number] [address] [place] [address], [place] [address] Feb, [facility] [address] [id number] [address] [place] [address], [place] [address] Feb, [facility] [address] [id number] [address] [place] [address], [place] [address] Feb, [facility] [address] [id number] [address] [place] [address], [place] [address] Feb, [facility] [address] [id number] [address] [place] [address], [place] [address] Feb, [facility] [address] [id number] [address] [place] [address], [place] [address] Feb, [facility] [address] [id number] [address] [place] [address], [place] [address] Jan, [facility] [address] [id number] [address] [place] [address], [place] [address] Jan, [facility] [address] [id number] [address] [place] [address], [place] [address] Jan, [facility] [address] [id number] [address] [place] [address], [place] [address] Jan, [facility] [address] [id number] [address] [place] [address], [place] [address] Jan, [facility] [address] [id number] [address] [place] [address], [place] [address] Jan, [facility] [address] [id number] [address] [place] [address], [place] [address] Jan, [facility] [address] [id number] [address] [place] [address], [place] [address] Dec, [facility] [address] [id number] [address] [place] [address], [place] [address] Dec, [facility] [address] [id number] [address] [place] [address], [place] [address] Dec, [facility] [address] [id number] [address] [place] [address], [place] [address] Dec, [facility] [address] [id number] [address] [place] [address], [place] [address] Dec, [facility] [address] [id number] [address] [place] [address], [place] [address] Dec, [facility] [address] [id number] [facility] [place] [address] Dec, [facility] [address] [id number] [address] [place] [address], [place] [address] Dec, [facility] [address] [id number] [address] [place] [address], [place] [address] Dec, [facility] [address] [id number] [address] [place] [address], [place] [address] November, [facility] [address] [id number] [address] [place] [address], [place] [address] November, [facility] [address] [id number] [address] [place] [address], [place] [address] November, [facility] [address] [id number] [address] [place] [address], [place] [address] November, [facility] [address] [id number] [address] [place] [address], [place] [address] November, [facility] [address] [id number] [address] [place] [address], [place] [address] November, [facility] [address] [id number] [address] [place] [address], [place] [address] November, [facility] [address] [id number] [address] [place] [address], [place] [address] November, [facility] [address] [id number] [address] [place] [address], [place] [address] November, [facility] [address] [id number] [address] [place] [address], [place] [address] November, [facility] [address] [id number] [address] [place] [address], [place] [address] November, [facility] [address] [id number] [address] [place] [address], [place] [address] November, [facility] [address] [id number] [address] [place] [address], [place] [address] November, [facility] [address] [id number] [address] [place] [address], [place] [address] November, [facility] [address] [id number] [address] [place] [address], [place] [address] Oct, [facility] [address] [id number] [address] [place] [address], [place] [address] Oct, [facility] [address] [id number] [address] [place] [address], [place] [address] Oct, [facility] [address] [id number] [address] [place] [address], [place] [address] Oct, [facility] [address] [id number] [address] [place] [address], [place] [address] Oct, [facility] [address] [id number] [address] [place] [address], [place] [address] Oct, [facility] [address] [id number] [address] [place] [address], [place] [address] Sep, [facility] [address] [id number] [address] [place] [address], [place] [address] Sep, [facility] [address] [id number] [address] [place] [address], [place] [address] Sep, [facility] [address] [id number] [address] [place] [address], [place] [address] Sep, [facility] [address] [id number] [address] [place] [address], [place] [address] Aug, [facility] [address] [id number] [address] [place] [address], [place] [address] Aug, [facility] [address] [id number] [address] [place] [address], [place] [address] Aug, [facility] [address] [id number] [address] [place] [address], [place] [address] Aug, [facility] [address] [id number] [address] [place] [address], [place] [address] Jul, [facility] [address] [id number] [address] [place] [address], [place] [address] Jul, [facility] [address] [id number] [address] [place] [address], [place] [address] Jul, [facility] [address] [id number] [address] [place] [address], [place] [address] Jul, [facility] [address] [id number] [address] [place] [address], [place] [address] Jul, [facility] [address] [id number] [address] [place] [address], [place] [address] Jul, [facility] [address] [id number] [address] [place] [address], [place] [address] Jul, [facility] [address] [id number] [address] [place] [address], [place] [address] Jun, [facility] [address] [id number] [address] [place] [address], [place] [address] Jun, [facility] [address] [id number] [address] [place] [address], [place] [address] Jun, [facility] [address] [id number] [address] [place] [address], [place] [address] 17 Jun, 2013 [facility] [address] [id number] [address] [place] [address], [place] [address] Jun, [facility] [address] [id number] [address] [place] [address], [place] [address] Jun, [facility] [address] [id number] [address] [place] [address], [place] [address] May, [facility] [address] [id number] [address] [place] [address], [place] [address] May, [facility] [address] [id number] [address] [place] [address], [place] [address] 15 Apr, 2013 [facility] [address] [id number] [address] [place] [address], [place] [address] 15 Apr, 2013 [facility] [address] [id number] [address] [place] [address], [place] [address] 10 Apr, 2013 [facility] [address] [id number] [address] [place] [address], [place] [address] 10 Apr, 2013 [facility] [address] [id number] [address] [place] [address], [place] [address] 08 Apr, 2013 [facility] [address] [id number] [address] [place] [address], [place] [address] 24 Mar, 2013 [facility] [address] [id number] [address] [place] [address], [place] [address] 19 Mar, 2013 [facility] [address] [id number] [address] [place] [address], [place] [address] Mar, [facility] [address] [id number] [address] [place] [address], [place] [address] Mar, [facility] [address] [id number] [address] [place] [address], [place] [address] Feb, [facility] [address] [id number] [address] [place] [address], [place] [address] Feb, [facility] [address] [id number] [address] [place] [address], [place] [address] Jan, [facility] [address] [id number] [address] [place] [address], [place] [address] Jan, [facility] [address] [id number] [address] [place] [address], [place] [address] Jan, [facility] [address] [id number] [address] [place] [address], [place] [address] Jan, [facility] [address] [id number] [address] [place] [address], [place] [address] Dec, [facility] [address] [id number] [address] [place] [address], [place] [address] 15 Dec, 2012 [facility] [address] [id number] [address] [place] [address], [place] [address] 07 Dec, 2012 [facility] [address] [id number] [address] [place] [address], [place] [address] 06 Dec, 2012 [facility] [address] [id number] [address] [place] [address], [place] [address] 16 Nov, 2012 [facility] [address] [id number] [address] [place] [address], [place] [address] November, [facility] [address] [id number] [address] [place] [address], [place] [address] Oct, [facility] [address] [id number] [address] [place] [address], [place] [address] Sep, [facility] [address] [id number] [address] [place] [address], [place] [address] Sep, [facility] [address] [id number] [address] [place] [address], [place] [address] 14 Aug, 2012 [facility] [address] [id number] [address] [place] [address], [place] [address] Aug, [facility] [address] [id number] [address] [place] [address], [place] [address] Jul, [facility] [address] [id number] [address] [place] [address], [place] [address] Jul, [facility] [address] [id number] [address] [place] [address], [place] [address] Jul, [facility] [address] [id number] [address] [place] [address], [place] [address] Jun, [facility] [address] [id number] [address] [place] [address], [place] [address] Jun, [facility] [address] [id number] [address] [place] [address], [place] [address] Jun, [facility] [address] [id number] [address] [place] [address], [place] [address] 15 Jun, 2012 [facility] [address] [id number] [address] [place] [address], [place] [address] May, [facility] [address] [id number] [address] [place] [address], [place] [address] May, [facility] [address] [id number] [address] [place] [address], [place] [address] May, [facility] [address] [id number] [address] [place] [address], [place] [address] May, [facility] [address] [id number] [address] [place] [address], [place] [address] May, [facility] [address] [id number] [address] [place] [address], [place] [address] May, [facility] [address] [id number] [address] [place] [address] May, [facility] [address] [id number] [address] [place] [address], [place] [address] 15 Apr, 2012 [facility] [address] [id number] [address] [place] [address] 15 Apr, 2012 [facility] [address] [id number] [address] [place] [address] 15 Apr, 2012 [facility] [address] [id number] [address] [place] [address] Apr, [facility] [address] [id number] [address] [place] [address], [place] [address] Apr, [facility] [address] [id number] [address] [place] [address] Apr, [facility] [address] [id number] [address] [place] [address] Apr, [facility] [address] [id number] [address] [place] [address], [place] [address] Apr, [facility] [address] [id number] [address] [place] [address], [place] [address] Jan, [facility] [address] [id number] [address] [place] [address], [place] [address] Jan, [facility] [address] [id number] [address] [place] [address], [place] [address] Dec, [facility] [address] [id number] [address] [place] [address], [place] [address] November, [facility] [address] [id number] [address] [place] [address], [place] [address] Oct, [facility] [address] [id number] [address] [place] [address], [place] [address] Oct, [facility] [address] [id number] [address] [place] [address], [place] [address] Oct, [facility] [address] [id number] [address] [place] [address], [place] [address] Oct, [facility] [address] [id number] [address] [place] [address], [place] [address] Sep, [facility] [address] [id number] [address] [place] [address], [place] [address] Sep, [facility] [address] [id number] [address] [place] [address], [place] [address] Sep, [facility] [address] [id number] [address] [place] [address], [place] [address] Jun, [facility] [address] [id number] [address] [place] [address], [place] [address] Jun, [facility] [address] [id number] [address] [place] [address], [place] [address] May, [facility] [address] [id number] [address] [place] [address], [place] [address] 14 Jan, 2011 [facility] [address] [id number] [address] [place] [address] November, [facility] [address] [id number] [address] [place] [address] 14 Oct, 2010 [facility] [address] [id number] [address] [place] [address] 16 Sep, 2010 [facility] [address] [id number] [address] [place] [address] 30 May, 2010 [facility] [address] [id number] [address] [place] [address] Jul, [facility] [address] [id number] [address] [place] [address] Jun, [facility] [address] [id number] [address] [place] [address] Jun, [facility] [address] [id number] [address] [place] [address] Jun, [facility] [address] [id number] [address] [place] [address] Jun, [facility] [address] [id number] [address] [place] [address] May, [facility] [address] [id number] [address] [place] [address] May, [facility] [address] [id number] [address] [place] [address] Apr, [facility] [address] [id number] [address] [place] [address] Apr, [facility] [address] [id number] [address] [place] [address] Apr, IMMUNIZATIONS No Known Immunizations SOCIAL HISTORY Never Assessed REASON FOR VISIT EMR-[facility] [place] PLAN OF CARE VITAL SIGNS MEDICATIONS Unknown [...] right 06/1996 Surgical History multiple knee injections ([id number]) Surgical History left knee replacement 06/11 Hospitalization History Knee surgery- x 3 days 06/11
--- OUTSIDE RECORDS SUMMARY | 2019-12-16 20:38 | XMS REPORT ---
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 73 Active 02782676 Problem Episode of recurrent major d epressive disorder, unspecified depression episode severity F33.9 Active 146082909 Problem Edema, unspecified type R60.9 Active 394888400 Problem Carpal tunnel syndrome on left G56.02 Active [id number] Problem ADD (attention deficit disorder) without hyperactivity F98.8 Active 50633268 Problem Other chronic pain G89.29 Active 8 6898791 Problem Venous insufficiency (chronic) (peripheral) I87.2 Active [id number] Problem Bipolar II disorder F31.81 Active 84437424 Problem Stimulant abuse F15.10 Active 4415 52814 Problem ADD (attention deficit disorder) F90.0 Active 901305996 Problem Joint pain M25.50 Active 58631723 Problem Insomnia G47.00 Active 579888364 Problem Drug abuse counseling and surveillance of drug abuser Z71.51 Active 219624580 Problem Social anxiety disorder F40.10 Active [id number] ALLERGIES No Information ENCOUNTERS Encounter Location Date Diagnosis [facility] [address] [facility] [id number] [address] [place] [phone] Jun, [facility] [address] [facility] [id number] [address] [place] [address] May, Screening for lipid disorder s Z13.220 [facility] [address] [facility] [id number] [address] [place] [address] May, Carpal tunnel syndrome on le ft G56.02 ; Social anxiety disorder F40.10 and Screening for lipid disorders Z13.220 [facility] [address] [place] [id number] [address] [place] [address] 11 Apr, 2018 Bipolar II disorder F31.81 ; Social anxiety disorder F40.10 ; ADD (attention deficit disorder) without hyperactivity F98.8 and BMI 45.0-49.9, adult Z68.42 [facility] [place] [address] [place] [id number] [place] [phone] 05 Mar, 2018 [place] [address] [place] [id number] [place] [phone] 17 Feb, 2018 BMI 45.0-49.9, adult Z68.42 ; Carpal tunnel syndrome on left G56.02 and Social anxiety disorder F40.10 [place] [address] [address] 09 Jan, 2018 Bipolar II disorder F31.81 ; ADD (attention deficit disorder) without hyperactivity F98.8 ; Social anxiety disorder F40.10 and Stimulant abuse F15.10 [place] [address] [address] 22 Dec, 2017 Episode of recurrent major d epressive disorder, unspecified depression episode severity F33.9 ; Other chronic pain G89.29 ; Radiculopathy, lumbar region M54.16 ; Edema of lower extremity R60.0 and BMI 45.0-49.9, adult Z68.42 [place] [address] [place] [id number] [address] [place] [address] Jun, [facility] [address] [place] [id number] [address] [place] [address] Jan, Joint pain M25.[address] [address] 18 Jan, 2016 Wellness examination Z00.00 ; Pain in right knee M25.561 ; Pain in left knee M25.562 ; Edema, unspecified type R60.9 and Drug abuse counseling and surveillance of drug abuser Z71.51 [place] [address] [place] [address] [place] [address] November, [facility] [address] [facility] [id number] [address] [place] [address] Oct, [facility] [address] [facility] [id number] [address] [place] [address] Oct, ADD (attention deficit disor josselin) F90.0 ; Social anxiety disorder F40.10 and Manic bipolar I disorder in partial remission F31.73 [facility] [address] [id number] [address] [place] [phone] Aug, [facility] [address] [facility] [id number] [address] [place] [address] Aug, [facility] [address] [facility] [id number] [address] [place] [phone] Aug, [facility] [address] [facility] [id number] [address] [place] [phone] Jul, [facility] [address] [facility] [id number] [address] [place] [address] Jul, [facility] [address] [facility] [id number] [address] [place] [phone] Jul, [facility] [address] [facility] [id number] [address] [place] [address] Jun, [facility] [address] [facility] [id number] [address] [place] [address] Jun, [facility] [address] [facility] [id number] [address] [place] [phone] Jun, [facility] [address] [facility] [id number] [address] [place] [phone] Jun, [facility] [address] [facility] [id number] [address] [place] [address] May, Joint pain M25.50 ; ADD (att ention deficit disorder) F90.0 ; Edema R60.9 and Insomnia G47.00 [facility] [address] [id number] [address] [place] [address] May, [facility] [address] [facility] [id number] [address] [place] [phone] May, [facility] [address] [facility] [id number] [address] [place] [address] May, [facility] [address] [facility] [id number] [address] [place] [address] May, Left wrist pain M25.532 ; Si nusitis J32.9 and Drug abuse counseling and surveillance of drug abuser Z71.51 [facility] [address] [facility] [id number] [address] [place] [phone] Apr, [facility] [address] [facility] [id number] [address] [place] [phone] Apr, [facility] [address] [facility] [id number] [address] [place] [address] Apr, [facility] [address] [facility] [id number] [address] [place] [address] Apr, [facility] [address] [facility] [id number] [address] [place] [phone] Apr, [facility] [address] [facility] [id number] [address] [place] [phone] Apr, [facility] [address] [facility] [id number] [address] [place] [address] Apr, [facility] [address] [facility] [id number] [address] [place] [address] Mar, Unspecified venous (peripher al) insufficiency 459.81 ; Bipolar I disorder, most recent episode (or current) manic, moderate 296.42 ; Social phobia 300.23 ; Attention deficit disorder of childhood without mention of hyperactivity 314.00 ; Pain in joint, lower leg 719.46 ; Thrombosis 453.9 and Chronic pain 338.29 [facility] [address] [facility] [id number] [address] [place] [id number] 18 Mar, 2014 [facility] [address] [id number] [address] [place] [phone] 18 Mar, 2015 [facility] [address] [id number] [address] [place] [phone] 18 Mar, 2015 [facility] [address] [facility] [id number] [address] [place] [phone] 17 Mar, 2015 [facility] [address] [facility] [id number] [address] [place] [phone] 17 Mar, 2015 [facility] [address] [facility] [id number] [address] [place] [phone] 11 Mar, 2015 [facility] [address] [facility] [id number] [address] [place] [phone] 10 Mar, 2015 Manic bipolar I disorder in partial remission 296.45 ; Social phobia 300.23 and Attention deficit disorder of childhood without mention of hyperactivity 314.00 [facility] [address] [facility] [id number] [address] [place] [phone] Mar, [facility] [address] [facility] [id number] [address] [place] [phone] Feb, [facility] [address] [facility] [id number] [address] [place] [phone] Feb, Thrombosis 453.9 ; Unspecifi ed venous (peripheral) insufficiency 459.81 ; Bipolar I disorder, most recent episode (or current) manic, moderate 296.42 ; Social phobia 300.23 ; Attention deficit disorder of childhood without mention of hyperactivity 314.00 ; Pain in joint, lower leg 719.46 and Edema 782.3 [facility] [address] [facility] [id number] [address] [place] [phone] Feb, [facility] [address] [facility] [id number] [address] [place] [phone] Feb, Social phobia 300.23 ; Atten tion deficit disorder of childhood without mention of hyperactivity 314.00 and Bipolar I disorder, most recent episode manic, in partial remission 296.45 [facility] [address] [facility] [id number] [address] [place] [phone] Jan, [facility] [address] [facility] [id number] [address] [place] [phone] Jan, [facility] [address] [facility] [id number] [address] [place] [phone] Jan, Unspecified venous (peripher al) insufficiency 459.81 and Thrombophlebitis 451.9 [facility] [address] [facility] [id number] [address] [place] [phone] Jan, [facility] [address] [facility] [id number] [address] [place] [phone] Dec, Headache 784.0 and Back pain 724.5 [facility] [address] [facility] [id number] [address] [place] [phone] Dec, [facility] [address] [facility] [id number] [address] [place] [phone] Dec, Bipolar I disorder, most rec ent episode (or current) manic, moderate 296.42 ; Attention deficit disorder of childhood without mention of hyperactivity 314.00 and Social phobia 300.23 [facility] [address] [facility] [id number] [address] [place] [phone] November, [facility] [address] [facility] [id number] [address] [place] [phone] November, [facility] [address] [facility] [id number] [address] [place] [phone] Oct, [facility] [address] [facility] [id number] [address] [place] [phone] Oct, [facility] [address] [facility] [id number] [address] [place] [phone] Sep, [facility] [address] [facility] [id number] [address] [place] [phone] Sep, [facility] [address] [id number] [address] [place] [address], [place] [address] Aug, 2014 [facility] [place] [facility] [address] [id number] [address] [place] [address], [place] [address] Aug, 2014 [facility] [address] [id number] [address] [place] [address], [place] [address] Aug, 2014 [facility] [place] [facility] [address] [id number] [address] [place] [address], [place] [address] Aug, 2014 [facility] [address] [id number] [address] [place] [address], [place] [address] Aug, [facility] [address] [id number] [address] [place] [address], [place] [address] Aug, [facility] [address] [id number] [address] [place] [address], [place] [address] Aug, [facility] [address] [id number] [address] [place] [address], [place] [address] Jul, [facility] [address] [id number] [address] [place] [address], [place] [address] Jul, [facility] [address] [id number] [address] [place] [address], [place] [address] Jun, [facility] [address] [id number] [address] [place] [address], [place] [address] Jun, [facility] [place] [facility] [address] [id number] [address] [place] [address], [place] [address] May, [facility] [place] [facility] [address] [id number] [address] [place] [address], [place] [address] May, [facility] [place] [facility] [address] [id number] [address] [place] [address], [place] [address] May, [facility] [place] [facility] [address] [id number] [address] [place] [address], [place] [address] May, [facility] [place] [facility] [address] [id number] [address] [place] [address], [place] [address] 05 May, 2014 [facility] [address] [id number] [address] [place] [address], [place] [address] May, [facility] [address] [id number] [address] [place] [address], [place] [address] Apr, [facility] [address] [id number] [address] [place] [address], [place] [address] Apr, [facility] [address] [id number] [address] [place] [address], [place] [address] Apr, [facility] [address] [id number] [address] [place] [address], [place] [address] Apr, [facility] [address] [id number] [address] [place] [address], [place] [address] 22 Mar, 2014 [facility] [address] [id number] [address] [place] [address], [place] [address] 22 Sep, 2013 [facility] [address] [id number] [address] [place] [address], [place] [address] 19 Sep, 2013 [facility] [address] [id number] [address] [place] [address], [place] [address] 16 Sep, 2013 [facility] [address] [id number] [address] [place] [address], [place] [address] 16 Sep, 2013 [facility] [address] [id number] [address] [place] [address], [place] [address] 15 Sep, 2013 [facility] [address] [id number] [address] [place] [address], [place] [address] 11 Sep, 2013 [facility] [place] [facility] [address] [id number] [address] [place] [address], [place] [address] 11 Sep, 2013 [facility] [address] [id number] [address] [place] [address], [place] [address] 11 Sep, 2013 [facility] [address] [id number] [address] [place] [address], [place] [address] 11 Sep, 2013 [facility] [place] [facility] [address] [id number] [facility] [place] [address] Mar, 2013 [facility] [place] [facility] [address] [id number] [address] [place] [address], [place] [address] Mar, [facility] [place] [facility] [address] [id number] [address] [place] [address], [place] [address] Mar, [facility] [place] [facility] [address] [id number] [address] [place] [address], [place] [address] Mar, 2013 [facility] [place] [facility] [address] [id number] [address] [place] [address], [place] [address] Mar, [facility] [place] [facility] [address] [id number] [address] [place] [address], [place] [address] Feb, [facility] [place] [facility] [address] [id number] [address] [place] [address], [place] [address] Feb, [facility] [place] [facility] [address] [id number] [address] [place] [address], [place] [address] Feb, [facility] [place] [facility] [address] [id number] [address] [place] [address], [place] [address] Feb, [facility] [place] [facility] [address] [id number] [address] [place] [address], [place] [address] Feb, [facility] [place] [facility] [address] [id number] [address] [place] [address], [place] [address] Feb, [facility] [place] [facility] [address] [id number] [address] [place] [address], [place] [address] Feb, [facility] [place] [facility] [address] [id number] [address] [place] [address], [place] [address] Feb, [facility] [place] [facility] [address] [id number] [address] [place] [address], [place] [address] Feb, [facility] [place] [facility] [address] [id number] [address] [place] [address], [place] [address] Feb, [facility] [place] [facility] [address] [id number] [address] [place] [address], [place] [address] Feb, [facility] [place] [facility] [address] [id number] [address] [place] [address], [place] [address] Feb, [facility] [place] [facility] [address] [id number] [address] [place] [address], [place] [address] Feb, [facility] [place] [facility] [address] [id number] [address] [place] [address], [place] [address] Feb, [facility] [place] [facility] [address] [id number] [address] [place] [address], [place] [address] Jan, [facility] [place] [facility] [address] [id number] [address] [place] [address], [place] [address] Jan, [facility] [address] [id number] [address] [place] [address], [place] [address] Jan, [facility] [address] [id number] [address] [place] [address], [place] [address] Jan, [facility] [place] [facility] [address] [id number] [address] [place] [address], [place] [address] Jan, [facility] [place] [facility] [address] [id number] [address] [place] [address], [place] [address] Jan, [facility] [place] [facility] [address] [id number] [address] [place] [address], [place] [address] Jan, [facility] [place] [facility] [address] [id number] [address] [place] [address], [place] [address] Dec, [facility] [place] [facility] [address] [id number] [address] [place] [address], [place] [address] Dec, [facility] [place] [facility] [address] [id number] [address] [place] [address], [place] [address] Dec, [facility] [place] [facility] [address] [id number] [address] [place] [address], [place] [address] Dec, [facility] [place] [facility] [address] [id number] [address] [place] [address], [place] [address] Dec, [facility] [place] [facility] [address] [id number] [facility] [place] [address] Dec, [facility] [address] [id number] [facility] [place] [address] Dec, [facility] [address] [id number] [address] [place] [address], [place] [address] Dec, [facility] [address] [id number] [address] [place] [address], [place] [address] Dec, [facility] [address] [id number] [address] [place] [address], [place] [address] November, [facility] [address] [id number] [address] [place] [address], [place] [address] November, [facility] [address] [id number] [address] [place] [address], [place] [address] November, [facility] [address] [id number] [address] [place] [address], [place] [address] November, [facility] [address] [id number] [address] [place] [address], [place] [address] November, [facility] [address] [id number] [address] [place] [address], [place] [address] November, [facility] [address] [id number] [address] [place] [address], [place] [address] November, [facility] [address] [id number] [address] [place] [address], [place] [address] November, [facility] [address] [id number] [address] [place] [address], [place] [address] November, [facility] [place] [facility] [address] [id number] [address] [place] [address], [place] [address] November, [facility] [address] [id number] [address] [place] [address], [place] [address] November, [facility] [address] [id number] [address] [place] [address], [place] [address] November, [facility] [address] [id number] [facility] [place] [address] November, [facility] [address] [id number] [address] [place] [address], [place] [address] November, [facility] [address] [id number] [address] [place] [address], [place] [address] Oct, [facility] [place] [facility] [address] [id number] [address] [place] [address], [place] [address] Oct, [facility] [address] [id number] [address] [place] [address], [place] [address] Oct, [facility] [address] [id number] [address] [place] [address], [place] [address] Oct, [facility] [address] [id number] [address] [place] [address], [place] [address] Oct, [facility] [address] [id number] [address] [place] [address], [place] [address] Oct, [facility] [address] [id number] [address] [place] [address], [place] [address] Sep, [facility] [address] [id number] [address] [place] [address], [place] [address] Sep, [facility] [address] [id number] [address] [place] [address], [place] [address] Sep, [facility] [address] [id number] [address] [place] [address], [place] [address] Sep, [facility] [address] [id number] [address] [place] [address], [place] [address] Aug, [facility] [address] [id number] [address] [place] [address], [place] [address] Aug, [facility] [address] [id number] [address] [place] [address], [place] [address] Aug, [facility] [address] [id number] [address] [place] [address], [place] [address] Aug, [facility] [address] [id number] [address] [place] [address], [place] [address] Jul, [facility] [address] [id number] [address] [place] [address], [place] [address] Jul, [facility] [address] [id number] [address] [place] [address], [place] [address] Jul, [facility] [address] [id number] [address] [place] [address], [place] [address] Jul, [facility] [address] [id number] [address] [place] [address], [place] [address] Jul, [facility] [address] [id number] [address] [place] [address], [place] [address] Jul, [facility] [address] [id number] [address] [place] [address], [place] [address] Jul, [facility] [address] [id number] [address] [place] [address], [place] [address] Jun, [facility] [address] [id number] [address] [place] [address], [place] [address] Jun, [facility] [address] [id number] [address] [place] [address], [place] [address] 17 Jun, 2013 [facility] [address] [id number] [address] [place] [address], [place] [address] 17 Jun, 2013 [facility] [address] [id number] [address] [place] [address], [place] [address] Jun, [facility] [address] [id number] [address] [place] [address], [place] [address] Jun, [facility] [address] [id number] [address] [place] [address], [place] [address] May, [facility] [address] [id number] [address] [place] [address], [place] [address] May, [facility] [address] [id number] [address] [place] [address], [place] [address] 15 Apr, 2013 [facility] [address] [id number] [address] [place] [address], [place] [address] 15 Apr, 2013 [facility] [address] [id number] [address] [place] [address], [place] [address] Apr, [facility] [address] [address] [id number] [address] [place] [address], [place] [address] Apr, [facility] [address] [id number] [address] [place] [address], [place] [address] 08 Apr, 2013 [facility] [address] [id number] [address] [place] [address], [place] [address] 24 Mar, 2013 [facility] [address] [id number] [address] [place] [address], [place] [address] Mar, [facility] [address] [id number] [address] [place] [address], [place] [address] Mar, [facility] [address] [id number] [address] [place] [address], [place] [address] Mar, [facility] [address] [id number] [address] [place] [address], [place] [address] Feb, [facility] [address] [id number] [address] [place] [address], [place] [address] Feb, [facility] [address] [id number] [address] [place] [address], [place] [address] Jan, [facility] [address] [id number] [address] [place] [address], [place] [address] Jan, [facility] [address] [id number] [address] [place] [address], [place] [address] Jan, [facility] [address] [id number] [address] [place] [address], [place] [address] Jan, [facility] [address] [id number] [address] [place] [address] [place] [address] 28 Dec, 2012 [facility] [address] [id number] [address] [place] [address], [place] [address] 15 Dec, 2012 [facility] [address] [id number] [address] [place] [address], [place] [address] 07 Dec, 2012 [facility] [address] [id number] [address] [place] [address], [place] [address] 06 Dec, 2012 [facility] [address] [id number] [address] [place] [address], [place] [address] 16 Nov, 2012 [facility] [address] [id number] [address] [place] [address], [place] [address] November, [facility] [address] [id number] [address] [place] [address], [place] [address] 18 Oct, 2012 [facility] [address] [id number] [address] [place] [address], [place] [address] Sep, [facility] [address] [id number] [address] [place] [address], [place] [address] 08 Sep, 2012 [facility] [address] [id number] [address] [place] [address], [place] [address] 14 Aug, 2012 [facility] [address] [id number] [address] [place] [address], [place] [address] 13 Aug, 2012 [facility] [address] [id number] [address] [place] [address], [place] [address] Jul, [facility] [address] [id number] [address] [place] [address], [place] [address] Jul, [facility] [address] [id number] [address] [place] [address], [place] [address] Jul, [facility] [address] [id number] [address] [place] [address], [place] [address] Jun, [facility] [address] [id number] [address] [place] [address], [place] [address] Jun, [facility] [address] [id number] [address] [place] [address], [place] [address] 15 Jun, 2012 [facility] [address] [id number] [address] [place] [address], [place] [address] 15 Jun, 2012 [facility] [address] [id number] [address] [place] [address], [place] [address] May, [facility] [address] [id number] [address] [place] [address], [place] [address] May, [facility] [address] [id number] [address] [place] [address], [place] [address] 19 May, 2012 [facility] [address] [id number] [address] [place] [address], [place] [address] May, [facility] [address] [id number] [address] [place] [address], [place] [address] May, [facility] [address] [id number] [address] [place] [address], [place] [address] May, [facility] [address] [id number] [address] [place] [address], [place] [address] May, [facility] [address] [id number] [address] [place] [address], [place] [address] 15 Apr, 2012 [facility] [address] [id number] [address] [place] [address], [place] [address] 15 Apr, 2012 [facility] [address] [id number] [address] [place] [address], [place] [address] 15 Apr, 2012 [facility] [address] [id number] [address] [place] [address], [place] [address] 15 Apr, 2012 [facility] [address] [id number] [address] [place] [address], [place] [address] Apr, [facility] [address] [id number] [address] [place] [address], [place] [address] 08 Apr, 2012 [facility] [address] [id number] [address] [place] [address] Apr, [facility] [address] [id number] [address] [place] [address], [place] [address] Apr, [facility] [address] [id number] [address] [place] [address], [place] [address] Jan, [facility] [address] [id number] [address] [place] [address], [place] [address] Jan, [facility] [address] [id number] [address] [place] [address], [place] [address] Dec, [facility] [address] [id number] [address] [place] [address], [place] [address] November, [facility] [address] [id number] [address] [place] [address], [place] [address] Oct, [facility] [address] [id number] [address] [place] [address], [place] [address] Oct, [facility] [address] [id number] [address] [place] [address], [place] [address] Oct, [facility] [address] [id number] [address] [place] [address], [place] [address] Oct, [facility] [address] [id number] [address] [place] [address], [place] [address] Sep, [facility] [address] [id number] [address] [place] [address], [place] [address] Sep, [facility] [address] [id number] [address] [place] [address], [place] [address] Sep, [facility] [address] [id number] [address] [place] [address], [place] [address] Jun, [facility] [address] [id number] [address] [place] [address], [place] [address] Jun, [facility] [address] [id number] [address] [place] [address], [place] [address] May, [facility] [address] [id number] [address] [place] [address] 14 Jan, 2011 [facility] [address] [id number] [address] [place] [address] 19 Nov, 2010 [facility] [address] [id number] [address] [place] [address] 14 Oct, 2010 [facility] [address] [id number] [address] [place] [address] 16 Sep, 2010 [facility] [address] [id number] [address] [place] [address] 30 May, 2010 [facility] [address] [id number] [address] [place] [address] Jul, [facility] [address] [id number] [address] [place] [address] 23 Jun, 2009 [facility] [address] [id number] [address] [place] [address] 23 Jun, 2009 [facility] [address] [id number] [address] [place] [address] 15 Jun, 2009 [facility] [address] [id number] [address] [place] [address] 15 Jun, 2009 [facility] [address] [id number] [address] [place] [address] 17 May, 2009 [facility] [address] [id number] [address] [place] [address] May, [facility] [address] [id number] [address] [place] [address] Apr, [facility] [address] [id number] [address] [place] [address] Apr, [facility] [address] [id number] [address] [place] [address] Apr, IMMUNIZATIONS No Known Immunizations SOCIAL HISTORY Never Assessed REASON FOR VISIT Lab (walk-in) PLAN OF CARE Activity Details Pending Test LIPID PANEL Pending Test BMP VITAL SIGNS MEDICATIONS Unknown Medications RESULTS No Results PROCEDURES Procedure Date Ordered Result Body Site LAB NOT BILLED BY [facility] Jun 23, 2018 DAVIS, MARICRUZ* Jun 23, 2018 INSTRUCTIONS MEDICATIONS ADMINISTERED No Known Medications MEDICAL [...] right 06/1996 Surgical History multiple knee injections ([id number]) Surgical History left knee replacement 06/11 Hospitalization History Knee surgery- x 3 days 06/11
[2019-12-16 20:39] LABS: BASOPHILS # (AUTO) 0.1 10^3/uL (0.0-0.1); BASOPHILS % (AUTO) 1 % (0-10); EOSINOPHILS # (AUTO) 0.2 10^3/uL (0.0-0.3); EOSINOPHILS % (AUTO) 2 % (0-10); HEMATOCRIT 40 % (35-52); HEMOGLOBIN 12.9 G/DL (11.5-16.0); LYMPHOCYTES % (AUTO) 39 % (12-44); MEAN CORPUSCULAR HEMOGLOBIN 30 PG (25-34); MEAN CORPUSCULAR HGB CONC 32 G/DL (32-36); MEAN CORPUSCULAR VOLUME 94 FL (80-99); MEAN PLATELET VOLUME 9.8 FL (7.4-10.4); MONOCYTES # (AUTO) 0.4 X 10^3 (0.0-1.0); MONOCYTES % (AUTO) 6 % (0-12); NEUTROPHILS % (AUTO) 52 % (42-75); PLATELET COUNT 294 10^3/uL (130-400); RED CELL DISTRIBUTION WIDTH 14.5 % (10.0-14.5); WHITE BLOOD COUNT 7.6 10^3/uL (4.3-11.0)
--- OUTSIDE RECORDS SUMMARY | 2019-12-16 20:39 | XMS REPORT ---
Author Author Patti FLORES Organization [facility] Address [address] [place] [address] Care Team Providers Care Unscrambler Name Role Phone KALEB FLORES Unavailable PROBLEMS Type Condition ICD9-CM Code [id number] Code Onset Dates Condition S tatus SNOMED Code Problem Manic bipolar I disorder in partial remission F31. 73 Active [id number] Problem Episode of recurrent major d epressive disorder, unspecified depression episode severity F33.9 Active 382154921 Problem Edema, unspecified type R60.9 Active 539749607 Problem Carpal tunnel syndrome on left G56.02 Active 413647890215207 Problem ADD (attention deficit disorder) without hyperactivity F98.8 Active 41016020 Problem Other chronic pain G89.29 Active 8 0089645 Problem Venous insufficiency (chronic) (peripheral) I87.2 Active [id number] Problem Bipolar II disorder F31.81 Active 39870272 Problem Stimulant abuse F15.10 Active 4415 72072 Problem ADD (attention deficit disorder) F90.0 Active 924282726 Problem Joint pain M25.50 Active 13820454 Problem Insomnia G47.00 Active 949393377 Problem Drug abuse counseling and surveillance of drug abuser Z71.51 Active 808868309 Problem Social anxiety disorder F40.10 Active 39179402 ALLERGIES Substance Reaction Event Type Date Status Geodon jaw twitching Drug Allergy Feb, Active Fluoxetine ineffective Drug Allergy Feb, Active Cymbalta paranoia Drug Allergy Feb, Active Abilify headache Drug Allergy Feb, Active Hydrocodone VIOLATION OF NARCOTIC CONTRACT Non Dr ug Allergy Feb, Active ENCOUNTERS Encounter Location Date Diagnosis [facility] [address] [facility] [id number] [address] [place] [id number] Apr, [facility] [address] [facility] [id number] [address] [place] [id number] Mar, [facility] [address] [facility] [id number] [address] [place] [address] Feb, BMI 45.0-49.9, adult Z68.42 ; Carpal tunnel syndrome on left G56.02 and Social anxiety disorder F40.10 [facility] [address] [facility] [id number] [address] [place] [id number] Jan, Bipolar II disorder F31.81 ; ADD (attention deficit disorder) without hyperactivity F98.8 ; Social anxiety disorder F40.10 and Stimulant abuse F15.10 [place] [address] [facility] [id number] [address] [place] [address] Dec, Episode of recurrent major d epressive disorder, unspecified depression episode severity F33.9 ; Other chronic pain G89.29 ; Radiculopathy, lumbar region M54.16 ; Edema of lower extremity R60.0 and BMI 45.0-49.9, adult Z68.42 [place] [address] [facility] [id number] [address] [place] [phone] Jun, [place] [address] [facility] [id number] [address] [place] [phone] Jan, Joint pain M25.50 [place] [address] [facility] [id number] [address] [place] [phone] 18 Jan, 2016 Wellness examination Z00.00 ; Pain in right knee M25.561 ; Pain in left knee M25.562 ; Edema, unspecified type R60.9 and Drug abuse counseling and surveillance of drug abuser Z71.51 [place] [address] [facility] [id number] [address] [place] [phone] November, [facility] [address] [facility] [id number] [address] [place] [address] Oct, [place] [address] [facility] [id number] [address] [place] [phone] Oct, ADD (attention deficit disor josselin) F90.0 ; Social anxiety disorder F40.10 and Manic bipolar I disorder in partial remission F31.73 [facility] [address] [id number] [address] [place] [phone] Aug, [facility] [address] [facility] [id number] [address] [place] [phone] Aug, [facility] [address] [facility] [id number] [address] [place] [address] Aug, [facility] [address] [facility] [id number] [address] [place] [phone] Jul, [facility] [address] [facility] [id number] [address] [place] [address] Jul, [facility] [address] [facility] [id number] [address] [place] [address] Jul, [facility] [address] [place] [id number] [address] [place] [address] Jun, [facility] [address] [facility] [id number] [address] [place] [address] Jun, [facility] [address] [place] [id number] [place] [address] Jun, [facility] [address] [facility] [id number] [address] [place] [id number] Jun, [facility] [address] [place] [id number] [address] [place] [address] May, Joint pain M25.50 ; ADD (att ention deficit disorder) F90.0 ; Edema R60.9 and Insomnia G47.00 [facility] [address] [facility] [id number] [address] [place] [phone] May, [facility] [address] [facility] [id number] [address] [place] [address] May, [facility] [address] [place] [id number] [address] [place] [address] May, [facility] [address] [facility] [id number] [address] [place] [address] May, Left wrist pain M25.532 ; Si nusitis J32.9 and Drug abuse counseling and surveillance of drug abuser Z71.51 [facility] [address] [facility] [id number] [address] [place] [phone] Apr, [facility] [address] [facility] [id number] [address] [place] [id number] Apr, [facility] [address] [facility] [id number] [address] [place] [phone] Apr, [facility] [address] [facility] [id number] [address] [place] [phone] Apr, [facility] [address] [facility] [id number] [address] [place] [id number] Apr, [facility] [address] [facility] [id number] [address] [place] [phone] Apr, [facility] [address] [facility] [id number] [address] [place] [id number] Apr, [facility] [address] [facility] [id number] [address] [place] [address] Mar, Unspecified venous (peripher al) insufficiency 459.81 ; Bipolar I disorder, most recent episode (or current) manic, moderate 296.42 ; Social phobia 300.23 ; Attention deficit disorder of childhood without mention of hyperactivity 314.00 ; Pain in joint, lower leg 719.46 ; Thrombosis 453.9 and Chronic pain 338.29 [facility] [address] [facility] [id number] [address] [place] [address] Mar, [facility] [address] [facility] [id number] [address] [place] [phone] Mar, [facility] [address] [facility] [id number] [address] [place] [phone] Mar, [facility] [address] [facility] [id number] [address] [place] [address] Mar, [facility] [address] [id number] [address] [place] [phone] Mar, [facility] [address] [facility] [id number] [address] [place] [phone] Mar, [facility] [address] [facility] [id number] [address] [place] [address] Mar, Manic bipolar I disorder in partial remission 296.45 ; Social phobia 300.23 and Attention deficit disorder of childhood without mention of hyperactivity 314.00 [facility] [address] [facility] [id number] [address] [place] [phone] Mar, [facility] [address] [facility] [id number] [address] [place] [phone] Feb, [facility] [address] [facility] [id number] [address] [place] [id number] Feb, Thrombosis 453.9 ; Unspecifi ed venous (peripheral) insufficiency 459.81 ; Bipolar I disorder, most recent episode (or current) manic, moderate 296.42 ; Social phobia 300.23 ; Attention deficit disorder of childhood without mention of hyperactivity 314.00 ; Pain in joint, lower leg 719.46 and Edema 782.3 [facility] [address] [facility] [id number] [address] [place] [id number] Feb, [facility] [address] [facility] [id number] [address] [place] [address] Feb, Social phobia 300.23 ; Atten tion deficit disorder of childhood without mention of hyperactivity 314.00 and Bipolar I disorder, most recent episode manic, in partial remission 296.45 [facility] [address] [facility] [id number] [address] [place] [id number] Jan, [facility] [address] [facility] [id number] [address] [place] [phone] Jan, [facility] [address] [facility] [id number] [address] [place] [id number] 16 Jan, 2015 Unspecified venous (peripher al) insufficiency 459.81 and Thrombophlebitis 451.9 [facility] [address] [facility] [id number] [address] [place] [phone] Jan, [facility] [address] [facility] [id number] [address] [place] [phone] 23 Dec, 2014 Headache 784.0 and Back pain 724.5 [facility] [address] [facility] [id number] [address] [place] [phone] Dec, [facility] [address] [place] [id number] [place] [address] Dec, Bipolar I disorder, most rec ent episode (or current) manic, moderate 296.42 ; Attention deficit disorder of childhood without mention of hyperactivity 314.00 and Social phobia 300.23 [facility] [address] [place] [id number] [address] [place] [id number] November, [facility] [address] [place] [id number] [address] [place] [phone] November, [facility] [address] [place] [id number] [address] [place] [phone] Oct, [facility] [address] [place] [id number] [address] [place] [phone] Oct, [facility] [address] [facility] [id number] [address] [place] [phone] Sep, [facility] [address] [facility] [id number] [address] [place] [phone] Sep, [facility] [address] [place] [id number] [address] [place] [phone] Aug, [facility] [address] [facility] [id number] [address] [place] [phone] Aug, [facility] [address] [place] [id number] [address] [place] [phone] Aug, [facility] [address] [id number] [address] [place] [address], [place] [address] Aug, [facility] [address] [id number] [address] [place] [address], [place] [address] Aug, [facility] [address] [id number] [address] [place] [address], [place] [address] Aug, [facility] [address] [id number] [address] [place] [address], [place] [address] Aug, [facility] [address] [id number] [address] [place] [address], [place] [address] Jul, [facility] [address] [id number] [address] [place] [address], [place] [address] Jul, [facility] [address] [id number] [address] [place] [address], [place] [address] Jun, [facility] [address] [id number] [address] [place] [address], [place] [address] Jun, [facility] [address] [id number] [address] [place] [address], [place] [address] May, [facility] [address] [id number] [address] [place] [address], [place] [address] May, [facility] [address] [id number] [address] [place] [address], [place] [address] May, [facility] [address] [id number] [address] [place] [address], [place] [address] May, [facility] [address] [id number] [address] [place] [address], [place] [address] May, [facility] [address] [id number] [address] [place] [address], [place] [address] May, [facility] [address] [id number] [address] [place] [address], [place] [address] Apr, [facility] [address] [id number] [address] [place] [address], [place] [address] 25 Apr, 2014 [facility] [address] [id number] [address] [place] [address], [place] [address] 23 Apr, 2014 [facility] [address] [id number] [address] [place] [address], [place] [address] 23 Apr, 2014 [facility] [address] [id number] [address] [place] [address], [place] [address] 22 Mar, 2013 [facility] [address] [id number] [address] [place] [address], [place] [address] 22 Mar, 2013 [facility] [address] [id number] [address] [place] [address], [place] [address] 19 Mar, 2013 [facility] [address] [id number] [address] [place] [address], [place] [address] 16 Mar, 2013 [facility] [address] [id number] [address] [place] [address], [place] [address] 16 Mar, 2013 [facility] [address] [id number] [address] [place] [address], [place] [address] 15 Mar, 2013 [facility] [address] [id number] [address] [place] [address], [place] [address] 11 Mar, 2013 [facility] [address] [id number] [address] [place] [address], [place] [address] 11 Mar, 2013 [facility] [address] [id number] [address] [place] [address], [place] [address] 11 Mar, 2013 [facility] [address] [id number] [address] [place] [address], [place] [address] 11 Mar, 2013 [facility] [address] [id number] [address] [place] [address], [place] [address] 10 Mar, 2013 [facility] [address] [id number] [address] [place] [address], [place] [address] 09 Mar, 2013 [facility] [address] [id number] [address] [place] [address], [place] [address] Mar, [facility] [address] [id number] [address] [place] [address], [place] [address] Mar, [facility] [address] [id number] [address] [place] [address], [place] [address] Mar, [facility] [address] [id number] [address] [place] [address], [place] [address] Feb, [facility] [address] [id number] [address] [place] [address], [place] [address] Feb, [facility] [address] [id number] [address] [place] [address], [place] [address] Feb, [facility] [address] [id number] [address] [place] [address], [place] [address] Feb, [facility] [address] [id number] [address] [place] [address], [place] [address] Feb, [facility] [address] [id number] [address] [place] [address], [place] [address] Feb, [facility] [address] [id number] [address] [place] [address], [place] [address] Feb, [facility] [address] [id number] [address] [place] [address], [place] [address] Feb, [facility] [address] [id number] [address] [place] [address], [place] [address] Feb, [facility] [address] [id number] [address] [place] [address], [place] [address] Feb, [facility] [address] [id number] [address] [place] [address], [place] [address] Feb, [facility] [address] [id number] [address] [place] [address], [place] [address] Feb, [facility] [address] [id number] [address] [place] [address], [place] [address] Feb, [facility] [address] [id number] [address] [place] [address], [place] [address] Feb, [facility] [address] [id number] [address] [place] [address], [place] [address] Jan, 2013 [facility] [address] [id number] [address] [place] [address], [place] [address] Jan, [facility] [address] [id number] [address] [place] [address], [place] [address] Jan, 2013 [facility] [address] [id number] [address] [place] [address], [place] [address] Jan, 2013 [facility] [address] [id number] [address] [place] [address], [place] [address] Jan, [facility] [address] [id number] [address] [place] [address], [place] [address] Jan, [facility] [address] [id number] [address] [place] [address], [place] [address] Jan, [facility] [address] [id number] [address] [place] [address], [place] [address] Dec, [facility] [address] [id number] [address] [place] [address], [place] [address] Dec, [facility] [address] [id number] [address] [place] [address], [place] [address] Dec, [facility] [address] [id number] [address] [place] [address], [place] [address] Dec, [facility] [address] [id number] [address] [place] [address], [place] [address] Dec, [facility] [address] [id number] [address] [place] [address], [place] [address] Dec, [facility] [address] [id number] [address] [place] [place] [address], [place] [address] Dec, [facility] [address] [id number] [address] [place] [address], [place] [address] Dec, [facility] [address] [id number] [facility] [place] [address] Dec, [facility] [address] [id number] [facility] [place] [address] November, [facility] [address] [id number] [facility] [place] [address] November, [facility] [address] [id number] [address] [place] [address], [place] [address] November, [facility] [address] [id number] [address] [place] [address], [place] [address] November, [facility] [address] [id number] [address] [place] [address], [place] [address] November, [facility] [address] [id number] [address] [place] [address], [place] [address] November, [facility] [address] [id number] [address] [place] [address], [place] [address] November, [facility] [address] [id number] [address] [place] [address], [place] [address] November, [facility] [address] [id number] [address] [place] [place] [address], [place] [address] November, [facility] [address] [id number] [address] [place] [address], [place] [address] November, [facility] [address] [id number] [address] [place] [address], [place] [address] November, [facility] [address] [id number] [address] [place] [address], [place] [address] November, [facility] [address] [id number] [address] [place] [address], [place] [address] November, [facility] [address] [id number] [address] [place] [address], [place] [address] November, [facility] [address] [id number] [address] [place] [address], [place] [address] Oct, [facility] [address] [id number] [facility] [place] [address] Oct, [facility] [address] [id number] [address] [place] [address], [place] [address] Oct, [facility] [address] [id number] [address] [place] [address], [place] [address] Oct, [facility] [address] [id number] [address] [place] [address], [place] [address] Oct, [facility] [address] [id number] [address] [place] [address], [place] [address] Oct, [facility] [address] [id number] [address] [place] [address], [place] [address] Sep, [facility] [address] [id number] [address] [place] [address], [place] [address] Sep, [facility] [address] [id number] [address] [place] [address], [place] [address] Sep, [facility] [address] [id number] [address] [place] [address], [place] [address] Sep, [facility] [address] [id number] [address] [place] [address], [place] [address] Aug, [facility] [address] [id number] [address] [place] [address], [place] [address] Aug, [facility] [address] [id number] [address] [place] [address], [place] [address] Aug, [facility] [address] [id number] [address] [place] [address], [place] [address] Aug, [facility] [address] [id number] [address] [place] [address], [place] [address] Jul, [facility] [address] [id number] [address] [place] [address], [place] [address] Jul, [facility] [address] [id number] [address] [place] [address], [place] [address] Jul, [facility] [address] [id number] [address] [place] [address], [place] [address] Jul, [facility] [address] [id number] [address] [place] [address], [place] [address] 15 Jul, 2013 [facility] [address] [id number] [address] [place] [address], [place] [address] Jul, [facility] [address] [id number] [address] [place] [address], [place] [address] 14 Jul, 2013 [facility] [address] [id number] [address] [place] [address], [place] [address] Jun, [facility] [address] [id number] [address] [place] [address], [place] [address] Jun, [facility] [address] [id number] [address] [place] [address], [place] [address] 17 Jun, 2013 [facility] [address] [id number] [address] [place] [address], [place] [address] 17 Jun, 2013 [facility] [address] [id number] [address] [place] [address], [place] [address] Jun, [facility] [address] [id number] [address] [place] [address], [place] [address] 13 Jun, 2013 [facility] [address] [id number] [address] [place] [address], [place] [address] 07 May, 2013 [facility] [address] [id number] [address] [id number] [place] [address], [place] [address] 07 May, 2013 [facility] [address] [id number] [address] [place] [address], [place] [address] 15 Apr, 2013 [facility] [address] [id number] [address] [place] [address], [place] [address] 15 Apr, 2013 [facility] [address] [id number] [address] [place] [address], [place] [address] Apr, [facility] [address] [id number] [address] [place] [address], [place] [address] Apr, [facility] [address] [id number] [address] [place] [address], [place] [address] Apr, [facility] [address] [id number] [address] [place] [address], [place] [address] 24 Mar, 2013 [facility] [address] [id number] [address] [place] [address], [place] [address] Mar, [facility] [address] [id number] [address] [place] [address], [place] [address] Mar, [facility] [address] [id number] [address] [place] [address], [place] [address] Mar, [facility] [address] [id number] [address] [place] [address], [place] [address] Feb, [facility] [address] [id number] [address] [place] [address], [place] [address] Feb, [facility] [address] [id number] [address] [place] [address], [place] [address] Jan, [facility] [address] [id number] [address] [place] [address], [place] [address] Jan, [facility] [address] [id number] [address] [place] [address], [place] [address] Jan, [facility] [address] [id number] [address] [place] [address], [place] [address] Jan, [facility] [address] [id number] [address] [place] [address], [place] [address] Dec, [facility] [address] [id number] [address] [place] [address], [place] [address] Dec, [facility] [address] [id number] [address] [place] [address], [place] [address] Dec, [facility] [address] [id number] [address] [place] [address], [place] [address] 06 Dec, 2012 [facility] [address] [id number] [address] [place] [address], [place] [address] November, [facility] [address] [id number] [address] [place] [address], [place] [address] November, [facility] [address] [id number] [address] [place] [address], [place] [address] Oct, [facility] [address] [id number] [address] [place] [address], [place] [address] Sep, [facility] [address] [id number] [address] [place] [address], [place] [address] Sep, [facility] [address] [id number] [address] [place] [address], [place] [address] 14 Aug, 2012 [facility] [address] [id number] [address] [place] [address], [place] [address] Aug, [facility] [address] [id number] [address] [place] [address], [place] [address] Jul, [facility] [address] [id number] [address] [place] [address], [place] [address] Jul, [facility] [address] [id number] [address] [place] [address], [place] [address] Jul, [facility] [address] [id number] [address] [place] [address], [place] [address] Jun, [facility] [address] [id number] [address] [place] [address], [place] [address] Jun, [facility] [address] [id number] [address] [place] [address], [place] [address] Jun, [facility] [address] [id number] [address] [place] [address], [place] [address] Jun, [facility] [address] [id number] [address] [place] [address], [place] [address] May, [facility] [address] [id number] [address] [place] [address], [place] [address] 20 May, 2012 [facility] [address] [id number] [address] [place] [address], [place] [address] 19 May, 2012 [facility] [address] [id number] [address] [place] [address], [place] [address] 14 May, 2012 [facility] [address] [id number] [address] [place] [address], [place] [address] 14 May, 2012 [facility] [address] [id number] [address] [place] [address], [place] [address] 06 May, 2012 [facility] [address] [id number] [address] [place] [address], [place] [address] May, [facility] [address] [id number] [address] [place] [address], [place] [address] 15 Apr, 2012 [facility] [address] [id number] [address] [place] [address], [place] [address] 15 Apr, 2012 [facility] [address] [id number] [address] [place] [address], [place] [address] Apr, [facility] [address] [id number] [address] [place] [address], [place] [address] Apr, [facility] [address] [id number] [address] [place] [address], [place] [address] Apr, [facility] [address] [id number] [address] [place] [address], [place] [address] Apr, [facility] [address] [id number] [address] [place] [address], [place] [address] Apr, [facility] [address] [id number] [address] [place] [address], [place] [address] Apr, [facility] [address] [id number] [address] [place] [address], [place] [address] Jan, [facility] [address] [id number] [address] [place] [id number] Jan, [facility] [address] [id number] [address] [place] [address], [place] [address] 06 Dec, 2011 [facility] [address] [id number] [address] [place] [address], [place] [address] November, [facility] [address] [id number] [address] [place] [address], [place] [address] 27 Oct, 2011 [facility] [address] [id number] [address] [place] [address], [place] [address] Oct, [facility] [address] [id number] [address] [place] [address], [place] [address] Oct, [facility] [address] [id number] [address] [place] [address], [place] [address] Oct, [facility] [address] [id number] [address] [place] [address], [place] [address] Sep, [facility] [address] [id number] [address] [place] [address], [place] [address] Sep, [facility] [address] [id number] [address] [place] [address], [place] [address] Sep, [facility] [address] [id number] [address] [place] [address], [place] [address] Jun, [facility] [address] [id number] [address] [place] [address], [place] [address] Jun, [facility] [address] [id number] [address] [place] [address], [place] [address] May, [facility] [address] [id number] [address] [place] [address], [place] [address] 14 Jan, 2011 [facility] [address] [id number] [address] [place] [address], [place] [address] November, [facility] [address] [id number] [address] [place] [address], [place] [address] 14 Oct, 2010 [facility] [address] [id number] [address] [place] [address] Sep, [facility] [address] [id number] [address] [place] [address] May, [facility] [address] [id number] [address] [place] [address] Jul, [facility] [address] [id number] [address] [place] [address] Jun, [facility] [address] [id number] [address] [place] [address] Jun, [facility] [address] [id number] [address] [place] [address] Jun, [facility] [address] [id number] [address] [place] [address] Jun, [facility] [address] [id number] [address] [place] [address] May, [facility] [address] [id number] [address] [place] [address] May, [facility] [address] [id number] [address] [place] [id number] Apr, [facility] [address] [id number] [address] [place] [address] Apr, [facility] [address] [id number] [address] [place] [address] Apr, IMMUNIZATIONS No Known Immunizations SOCIAL HISTORY Never Assessed REASON FOR VISIT stomache pain, Started Lamotrigine on Wednesday, that is when she started getting s Arnol garcia PLAN OF CARE Activity Details Follow Up prn Reason: VITAL SIGNS Height 61 in 2018-03-11 Weight 244.6 lbs 2018-03-11 Temperature 98.1 degrees Fahrenheit 2018-03-11 Heart Rate 96 bpm 2018-03-11 Respiratory Rate 20 2018-03-11 BMI 46.21 kg/m2 2018-03-11 Blood pressure systolic 130 mmHg 2018-03-11 Blood pressure diastolic 90 mmHg 2018-03-11 MEDICATIONS Medication Instructions Dosage Frequency Start Date End Date Duration S tatus Zoloft 50 MG Orally Once a day 1 tablet 24h Dec, Active Hydrochlorothiazide 12.5 MG Orally Once a day prn swelling 1 tablet in the morning Feb, 30 day(s) Active Mobic 7.5 MG Orally Once a day 1 tablet 24h Dec, 20 Sep, 201 8 30 day(s) Active Gabapentin 100 MG Orally 3 times a day 8h Active Neurontin 100 mg Orally Three times a day 1 capsule 8h Dec, 30 day(s) Active Cyclobenzaprine HCl 10 mg Orally Once a day prn muscle spasm 1 t ablet as needed Dec, Mar, 28 days Active RESULTS No Results PROCEDURES No Known [...] right 06/1996 Surgical History multiple knee injections ([id number]) Surgical History left knee replacement 06/11
--- OUTSIDE RECORDS SUMMARY | 2019-12-16 20:39 | XMS REPORT ---
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 73 Active 70329384 Problem Episode of recurrent major d epressive disorder, unspecified depression episode severity F33.9 Active 368009440 Problem Edema, unspecified type R60.9 Active 444625874 Problem Carpal tunnel syndrome on left G56.02 Active 597303089913270 Problem ADD (attention deficit disorder) without hyperactivity F98.8 Active 90023793 Problem Other chronic pain G89.29 Active 8 3491185 Problem Venous insufficiency (chronic) (peripheral) I87.2 Active [id number] Problem Bipolar II disorder F31.81 Active 52867820 Problem Stimulant abuse F15.10 Active 4415 10279 Problem ADD (attention deficit disorder) F90.0 Active 251310094 Problem Joint pain M25.50 Active 50773828 Problem Insomnia G47.00 Active 817503107 Problem Drug abuse counseling and surveillance of drug abuser Z71.51 Active 370310371 Problem Social anxiety disorder F40.10 Active 29499112 ALLERGIES No Information ENCOUNTERS Encounter Location Date Diagnosis [facility] [address] [facility] [id number] [address] [place] [address] Jun, [facility] [address] [facility] [id number] [address] [place] [address] May, Screening for lipid disorder s Z13.220 [facility] [address] [facility] [id number] [address] [place] [address] May, Carpal tunnel syndrome on le ft G56.02 ; Social anxiety disorder F40.10 and Screening for lipid disorders Z13.220 [facility] [address] [place] [id number] [address] [place] [address] 11 Apr, 2018 Bipolar II disorder F31.81 ; Social anxiety disorder F40.10 ; ADD (attention deficit disorder) without hyperactivity F98.8 and BMI 45.0-49.9, adult Z68.42 [facility] [address] [place] [id number] [place] [address] 05 Mar, 2018 [facility] [address] [place] [id number] [place] [address] 17 Feb, 2018 BMI 45.0-49.9, adult Z68.42 ; Carpal tunnel syndrome on left G56.02 and Social anxiety disorder F40.10 [facility] [address] [address] 09 Jan, 2018 Bipolar II disorder F31.81 ; ADD (attention deficit disorder) without hyperactivity F98.8 ; Social anxiety disorder F40.10 and Stimulant abuse F15.10 [facility] [place] [address] [address] 22 Dec, 2017 Episode of recurrent major d epressive disorder, unspecified depression episode severity F33.9 ; Other chronic pain G89.29 ; Radiculopathy, lumbar region M54.16 ; Edema of lower extremity R60.0 and BMI 45.0-49.9, adult Z68.42 [facility] [place] [address] [place] [id number] [address] [place] [address] Jun, [facility] [address] [place] [id number] [address] [place] [address] Jan, Joint pain M25.[address] [address] 18 Jan, 2016 Wellness examination Z00.00 ; Pain in right knee M25.561 ; Pain in left knee M25.562 ; Edema, unspecified type R60.9 and Drug abuse counseling and surveillance of drug abuser Z71.51 [facility] [address] [place] [address] [place] [address] November, [facility] [address] [facility] [id number] [address] [place] [address] Oct, [facility] [address] [facility] [id number] [address] [place] [address] Oct, ADD (attention deficit disor josselin) F90.0 ; Social anxiety disorder F40.10 and Manic bipolar I disorder in partial remission F31.73 [facility] [address] [id number] [address] [place] [address] Aug, [facility] [address] [facility] [id number] [address] [place] [address] Aug, [facility] [address] [facility] [id number] [address] [place] [address] Aug, [facility] [address] [facility] [id number] [address] [place] [address] Jul, [facility] [address] [facility] [id number] [address] [place] [address] Jul, [facility] [address] [facility] [id number] [address] [place] [address] Jul, [facility] [address] [facility] [id number] [address] [place] [address] Jun, [facility] [address] [facility] [id number] [address] [place] [address] Jun, [facility] [address] [facility] [id number] [address] [place] [address] Jun, [facility] [address] [facility] [id number] [address] [place] [address] Jun, [facility] [address] [facility] [id number] [address] [place] [address] May, Joint pain M25.50 ; ADD (att ention deficit disorder) F90.0 ; Edema R60.9 and Insomnia G47.00 [facility] [address] [id number] [address] [place] [address] May, [facility] [address] [facility] [id number] [address] [place] [address] May, [facility] [address] [facility] [id number] [address] [place] [address] May, [facility] [address] [facility] [id number] [address] [place] [address] May, Left wrist pain M25.532 ; Si nusitis J32.9 and Drug abuse counseling and surveillance of drug abuser Z71.51 [facility] [address] [facility] [id number] [address] [place] [address] Apr, [facility] [address] [facility] [id number] [address] [place] [address] Apr, [facility] [address] [facility] [id number] [address] [place] [address] Apr, [facility] [address] [facility] [id number] [address] [place] [address] Apr, [facility] [address] [facility] [id number] [address] [place] [address] Apr, [facility] [address] [facility] [id number] [address] [place] [address] Apr, [facility] [address] [facility] [id number] [address] [place] [address] Apr, [facility] [address] [facility] [id number] [address] [place] [address] Mar, Unspecified venous (peripher al) insufficiency 459.81 ; Bipolar I disorder, most recent episode (or current) manic, moderate 296.42 ; Social phobia 300.23 ; Attention deficit disorder of childhood without mention of hyperactivity 314.00 ; Pain in joint, lower leg 719.46 ; Thrombosis 453.9 and Chronic pain 338.29 [facility] [address] [facility] [id number] [address] [place] [address] 18 Mar, 2014 [facility] [address] [id number] [address] [place] [address] 18 Mar, 2015 [facility] [address] [id number] [address] [place] [address] 18 Mar, 2015 [facility] [address] [facility] [id number] [address] [place] [address] 17 Mar, 2015 [facility] [address] [facility] [id number] [address] [place] [address] 17 Mar, 2015 [facility] [address] [facility] [id number] [address] [place] [address] 11 Mar, 2015 [facility] [address] [facility] [id number] [address] [place] [address] 10 Mar, 2015 Manic bipolar I disorder in partial remission 296.45 ; Social phobia 300.23 and Attention deficit disorder of childhood without mention of hyperactivity 314.00 [facility] [address] [facility] [id number] [address] [place] [address] Mar, [facility] [address] [facility] [id number] [address] [place] [address] Feb, [facility] [address] [facility] [id number] [address] [place] [address] Feb, Thrombosis 453.9 ; Unspecifi ed venous (peripheral) insufficiency 459.81 ; Bipolar I disorder, most recent episode (or current) manic, moderate 296.42 ; Social phobia 300.23 ; Attention deficit disorder of childhood without mention of hyperactivity 314.00 ; Pain in joint, lower leg 719.46 and Edema 782.3 [facility] [address] [facility] [id number] [address] [place] [address] Feb, [facility] [address] [facility] [id number] [address] [place] [address] Feb, Social phobia 300.23 ; Atten tion deficit disorder of childhood without mention of hyperactivity 314.00 and Bipolar I disorder, most recent episode manic, in partial remission 296.45 [facility] [address] [facility] [id number] [address] [place] [address] Jan, [facility] [address] [facility] [id number] [address] [place] [address] Jan, [facility] [address] [facility] [id number] [address] [place] [address] Jan, Unspecified venous (peripher al) insufficiency 459.81 and Thrombophlebitis 451.9 [facility] [address] [facility] [id number] [address] [place] [address] Jan, [facility] [address] [facility] [id number] [address] [place] [address] Dec, Headache 784.0 and Back pain 724.5 [facility] [address] [facility] [id number] [address] [place] [address] Dec, [facility] [address] [facility] [id number] [address] [place] [address] Dec, Bipolar I disorder, most rec ent episode (or current) manic, moderate 296.42 ; Attention deficit disorder of childhood without mention of hyperactivity 314.00 and Social phobia 300.23 [facility] [address] [facility] [id number] [address] [place] [address] November, [facility] [address] [facility] [id number] [address] [place] [address] November, [facility] [address] [facility] [id number] [address] [place] [address] Oct, [facility] [address] [facility] [id number] [address] [place] [address] Oct, [facility] [address] [facility] [id number] [address] [place] [address] Sep, [facility] [address] [facility] [id number] [address] [place] [address] Sep, [facility] [address] [id number] [address] [place] [address], [place] [address] Aug, 2014 [facility] [place] [facility] [address] [id number] [address] [place] [address], [place] [address] Aug, 2014 [facility] [address] [id number] [address] [place] [address], [place] [address] Aug, 2014 [facility] [place] [facility] [address] [id number] [address] [place] [address], [place] [address] Aug, 2014 [facility] [address] [id number] [address] [place] [address], [place] [address] Aug, [facility] [address] [id number] [address] [place] [address], [place] [address] Aug, [facility] [address] [id number] [address] [place] [address], [place] [address] Aug, [facility] [address] [id number] [address] [place] [address], [place] [address] Jul, [facility] [address] [id number] [address] [place] [address], [place] [address] Jul, [facility] [address] [id number] [address] [place] [address], [place] [address] Jun, [facility] [address] [id number] [address] [place] [address], [place] [address] Jun, [facility] [place] [facility] [address] [id number] [address] [place] [address], [place] [address] May, [facility] [place] [facility] [address] [id number] [address] [place] [address], [place] [address] May, [facility] [place] [facility] [address] [id number] [address] [place] [address], [place] [address] May, [facility] [place] [facility] [address] [id number] [address] [place] [address], [place] [address] May, [facility] [place] [facility] [address] [id number] [address] [place] [address], [place] [address] 05 May, 2014 [facility] [address] [id number] [address] [place] [address], [place] [address] May, [facility] [address] [id number] [address] [place] [address], [place] [address] Apr, [facility] [address] [id number] [address] [place] [address], [place] [address] Apr, [facility] [address] [id number] [address] [place] [address], [place] [address] Apr, [facility] [address] [id number] [address] [place] [address], [place] [address] Apr, [facility] [address] [id number] [address] [place] [address], [place] [address] 22 Mar, 2014 [facility] [address] [id number] [address] [place] [address], [place] [address] 22 Sep, 2013 [facility] [address] [id number] [address] [place] [address], [place] [address] 19 Sep, 2013 [facility] [address] [id number] [address] [place] [address], [place] [address] 16 Sep, 2013 [facility] [address] [id number] [address] [place] [address], [place] [address] 16 Sep, 2013 [facility] [address] [id number] [address] [place] [address], [place] [address] 15 Sep, 2013 [facility] [address] [id number] [address] [place] [address], [place] [address] 11 Sep, 2013 [facility] [place] [facility] [address] [id number] [address] [place] [address], [place] [address] 11 Sep, 2013 [facility] [address] [id number] [address] [place] [address], [place] [address] 11 Sep, 2013 [facility] [address] [id number] [address] [place] [address], [place] [address] 11 Sep, 2013 [facility] [place] [facility] [address] [id number] [facility] [address] Mar, 2013 [facility] [place] [facility] [address] [id number] [address] [place] [address], [place] [address] Mar, [facility] [place] [facility] [address] [id number] [address] [place] [address], [place] [address] Mar, [facility] [place] [facility] [address] [id number] [address] [place] [address], [place] [address] Mar, 2013 [facility] [place] [facility] [address] [id number] [address] [place] [address], [place] [address] Mar, [facility] [place] [facility] [address] [id number] [address] [place] [address], [place] [address] Feb, [facility] [place] [facility] [address] [id number] [address] [place] [address], [place] [address] Feb, [facility] [place] [facility] [address] [id number] [address] [place] [address], [place] [address] Feb, [facility] [place] [facility] [address] [id number] [address] [place] [address], [place] [address] Feb, [facility] [place] [facility] [address] [id number] [address] [place] [address], [place] [address] Feb, [facility] [place] [facility] [address] [id number] [address] [place] [address], [place] [address] Feb, [facility] [place] [facility] [address] [id number] [address] [place] [address], [place] [address] Feb, [facility] [place] [facility] [address] [id number] [address] [place] [address], [place] [address] Feb, [facility] [place] [facility] [address] [id number] [address] [place] [address], [place] [address] Feb, [facility] [place] [facility] [address] [id number] [address] [place] [address], [place] [address] Feb, [facility] [place] [facility] [address] [id number] [address] [place] [address], [place] [address] Feb, [facility] [place] [facility] [address] [id number] [address] [place] [address], [place] [address] Feb, [facility] [place] [facility] [address] [id number] [address] [place] [address], [place] [address] Feb, [facility] [place] [facility] [address] [id number] [address] [place] [address], [place] [address] Feb, [facility] [place] [facility] [address] [id number] [address] [place] [address], [place] [address] Jan, [facility] [place] [facility] [address] [id number] [address] [place] [address], [place] [address] Jan, [facility] [address] [id number] [address] [place] [address], [place] [address] Jan, [facility] [address] [id number] [address] [place] [address], [place] [address] Jan, [facility] [place] [facility] [address] [id number] [address] [place] [address], [place] [address] Jan, [facility] [place] [facility] [address] [id number] [address] [place] [address], [place] [address] Jan, [facility] [place] [facility] [address] [id number] [address] [place] [address], [place] [address] Jan, [facility] [place] [facility] [address] [id number] [address] [place] [address], [place] [address] Dec, [facility] [place] [facility] [address] [id number] [address] [place] [address], [place] [address] Dec, [facility] [place] [facility] [address] [id number] [address] [place] [address], [place] [address] Dec, [facility] [place] [facility] [address] [id number] [address] [place] [address], [place] [address] Dec, [facility] [place] [facility] [address] [id number] [address] [place] [address], [place] [address] Dec, [facility] [place] [facility] [address] [id number] [facility] [address] Dec, [facility] [address] [id number] [facility] [address] Dec, [facility] [address] [id number] [address] [place] [address], [place] [address] Dec, [facility] [address] [id number] [address] [place] [address], [place] [address] Dec, [facility] [address] [id number] [address] [place] [address], [place] [address] November, [facility] [address] [id number] [address] [place] [address], [place] [address] November, [facility] [address] [id number] [address] [place] [address], [place] [address] November, [facility] [address] [id number] [address] [place] [address], [place] [address] November, [facility] [address] [id number] [address] [place] [address], [place] [address] November, [facility] [address] [id number] [address] [place] [address], [place] [address] November, [facility] [address] [id number] [address] [place] [address], [place] [address] November, [facility] [address] [id number] [address] [place] [address], [place] [address] November, [facility] [address] [id number] [address] [place] [address], [place] [address] November, [facility] [place] [facility] [address] [id number] [address] [place] [address], [place] [address] November, [facility] [address] [id number] [address] [place] [address], [place] [address] November, [facility] [place] [facility] [address] [id number] [address] [place] [address], [place] [address] November, [facility] [address] [id number] [address] [address] November, [facility] [address] [id number] [address] [place] [address], [place] [address] November, [facility] [address] [id number] [address] [place] [address], [place] [address] Oct, [facility] [place] [facility] [address] [id number] [address] [place] [address], [place] [address] Oct, [facility] [address] [id number] [address] [place] [address], [place] [address] Oct, [facility] [address] [id number] [address] [place] [address], [place] [address] Oct, [facility] [address] [id number] [address] [place] [address], [place] [address] Oct, [facility] [address] [id number] [address] [place] [address], [place] [address] Oct, [facility] [address] [id number] [address] [place] [address], [place] [address] Sep, [facility] [address] [id number] [address] [place] [address], [place] [address] Sep, [facility] [address] [id number] [address] [place] [address], [place] [address] Sep, [facility] [address] [id number] [address] [place] [address], [place] [address] Sep, [facility] [address] [id number] [address] [place] [address], [place] [address] Aug, [facility] [address] [id number] [address] [place] [address], [place] [address] Aug, [facility] [address] [id number] [address] [place] [address], [place] [address] Aug, [facility] [address] [id number] [address] [place] [address], [place] [address] Aug, [facility] [address] [id number] [address] [place] [address], [place] [address] Jul, [facility] [address] [id number] [address] [place] [address], [place] [address] Jul, [facility] [address] [id number] [address] [place] [address], [place] [address] Jul, [facility] [address] [id number] [address] [place] [address], [place] [address] Jul, [facility] [address] [id number] [address] [place] [address], [place] [address] Jul, [facility] [address] [id number] [address] [place] [address], [place] [address] Jul, [facility] [address] [id number] [address] [place] [address], [place] [address] Jul, [facility] [address] [id number] [address] [place] [address], [place] [address] Jun, [facility] [address] [id number] [address] [place] [address], [place] [address] Jun, [facility] [address] [id number] [address] [place] [address], [place] [address] 17 Jun, 2013 [facility] [address] [id number] [address] [place] [address], [place] [address] 17 Jun, 2013 [facility] [address] [id number] [address] [place] [address], [place] [address] Jun, [facility] [address] [id number] [address] [place] [address], [place] [address] Jun, [facility] [address] [id number] [address] [place] [address], [place] [address] May, [facility] [address] [id number] [address] [place] [address], [place] [address] May, [facility] [address] [id number] [address] [place] [address], [place] [address] 15 Apr, 2013 [facility] [address] [id number] [address] [place] [address], [place] [address] 15 Apr, 2013 [facility] [address] [id number] [address] [place] [address], [place] [address] Apr, [facility] [address] [id number] [address] [place] [address], [place] [address] Apr, [facility] [address] [id number] [address] [place] [address], [place] [address] 08 Apr, 2013 [facility] [address] [id number] [address] [place] [address], [place] [address] 24 Mar, 2013 [facility] [address] [id number] [address] [place] [address], [place] [address] Mar, [facility] [address] [id number] [address] [place] [address], [place] [address] Mar, [facility] [address] [id number] [address] [place] [address], [place] [address] Mar, [facility] [address] [id number] [address] [place] [address], [place] [address] Feb, [facility] [address] [id number] [address] [place] [address], [place] [address] Feb, [facility] [address] [id number] [address] [place] [address], [place] [address] Jan, [facility] [address] [id number] [address] [place] [address], [place] [address] Jan, [facility] [address] [id number] [address] [place] [address], [place] [address] Jan, [facility] [address] [id number] [address] [place] [address], [place] [address] Jan, [facility] [address] [id number] [address] [place] [address] [place] [address] 28 Dec, 2012 [facility] [address] [id number] [address] [place] [address], [place] [address] 15 Dec, 2012 [facility] [address] [id number] [address] [place] [address], [place] [address] 07 Dec, 2012 [facility] [address] [id number] [address] [place] [address], [place] [address] 06 Dec, 2012 [facility] [address] [id number] [address] [place] [address], [place] [address] 16 Nov, 2012 [facility] [address] [id number] [address] [place] [address], [place] [address] November, [facility] [address] [id number] [address] [place] [address], [place] [address] 18 Oct, 2012 [facility] [address] [id number] [address] [place] [address], [place] [address] Sep, [facility] [address] [id number] [address] [place] [address], [place] [address] 08 Sep, 2012 [facility] [address] [id number] [address] [place] [address], [place] [address] 14 Aug, 2012 [facility] [address] [id number] [address] [place] [address], [place] [address] 13 Aug, 2012 [facility] [address] [id number] [address] [place] [address], [place] [address] Jul, [facility] [address] [id number] [address] [place] [address], [place] [address] Jul, [facility] [address] [id number] [address] [place] [address], [place] [address] Jul, [facility] [address] [id number] [address] [place] [address], [place] [address] Jun, [facility] [address] [id number] [address] [place] [address], [place] [address] Jun, [facility] [address] [id number] [address] [place] [address], [place] [address] 15 Jun, 2012 [facility] [address] [id number] [address] [place] [address], [place] [address] 15 Jun, 2012 [facility] [address] [id number] [address] [place] [address], [place] [address] May, [facility] [address] [id number] [address] [place] [address], [place] [address] May, [facility] [address] [id number] [address] [place] [address], [place] [address] 19 May, 2012 [facility] [address] [id number] [address] [place] [address], [place] [address] May, [facility] [address] [id number] [address] [place] [address], [place] [address] May, [facility] [address] [id number] [address] [place] [address], [place] [address] May, [facility] [address] [id number] [address] [place] [address], [place] [address] May, [facility] [address] [id number] [address] [place] [address], [place] [address] 15 Apr, 2012 [facility] [address] [id number] [address] [place] [address], [place] [address] 15 Apr, 2012 [facility] [address] [id number] [address] [place] [address], [place] [address] 15 Apr, 2012 [facility] [address] [id number] [address] [place] [address], [place] [address] 15 Apr, 2012 [facility] [address] [id number] [address] [place] [address], [place] [address] Apr, [facility] [address] [id number] [address] [place] [address], [place] [address] 08 Apr, 2012 [facility] [address] [id number] [address] [place] [address] Apr, [facility] [address] [id number] [address] [place] [address], [place] [address] Apr, [facility] [address] [id number] [address] [place] [address], [place] [address] Jan, [facility] [address] [id number] [address] [place] [address], [place] [address] Jan, [facility] [address] [id number] [address] [place] [address], [place] [address] Dec, [facility] [address] [id number] [address] [place] [address], [place] [address] November, [facility] [address] [id number] [address] [place] [address], [place] [address] Oct, [facility] [address] [id number] [address] [place] [address], [place] [address] Oct, [facility] [address] [id number] [address] [place] [address], [place] [address] Oct, [facility] [address] [id number] [address] [place] [address], [place] [address] Oct, [facility] [address] [id number] [address] [place] [address], [place] [address] Sep, [facility] [address] [id number] [address] [place] [address], [place] [address] Sep, [facility] [address] [id number] [address] [place] [address], [place] [address] Sep, [facility] [address] [id number] [address] [place] [address], [place] [address] Jun, [facility] [address] [id number] [address] [place] [address], [place] [address] Jun, [facility] [address] [id number] [address] [place] [address], [place] [address] May, [facility] [address] [id number] [address] [place] [address] 14 Jan, 2011 [facility] [address] [id number] [address] [place] [address] 19 Nov, 2010 [facility] [address] [id number] [address] [place] [id number] 14 Oct, 2010 [facility] [address] [id number] [address] [place] [address] 16 Sep, 2010 [facility] [address] [id number] [address] [place] [address] 30 May, 2010 [facility] [address] [id number] [address] [place] [address] Jul, [facility] [address] [id number] [address] [place] [address] Jun, [facility] [address] [id number] [address] [place] [address] Jun, [facility] [address] [id number] [address] [place] [address] Jun, [facility] [address] [id number] [address] [place] [address] Jun, [facility] [address] [id number] [address] [place] [address] 17 May, 2009 [facility] [address] [id number] [address] [place] [address] May, [facility] [address] [id number] [address] [place] [address] Apr, [facility] [address] [id number] [address] [place] [address] Apr, [facility] [address] [id number] [address] [place] [address] Apr, IMMUNIZATIONS No Known Immunizations SOCIAL HISTORY Never Assessed REASON FOR VISIT new labs PLAN OF CARE VITAL SIGNS MEDICATIONS Unknown [...] right 06/1996 Surgical History multiple knee injections ([id number]) Surgical History left knee replacement 06/11 Hospitalization History Knee surgery- x 3 days 06/11
--- OUTSIDE RECORDS SUMMARY | 2019-12-16 20:39 | XMS REPORT ---
Author Author Patti FLORES Organization [facility] Address [address] [place] [address] Care Team Providers Care Endoscope Technician Name Role Phone KALEB FLORES Unavailable PROBLEMS Type Condition ICD9-CM Code [id number] Code Onset Dates Condition S tatus SNOMED Code Problem Manic bipolar I disorder in partial remission F31. 73 Active 92023989 Problem Episode of recurrent major d epressive disorder, unspecified depression episode severity F33.9 Active 357865017 Problem Edema, unspecified type R60.9 Active 746207164 Problem Carpal tunnel syndrome on left G56.02 Active [id number] Problem ADD (attention deficit disorder) without hyperactivity F98.8 Active 17468808 Problem Other chronic pain G89.29 Active 8 8084928 Problem Venous insufficiency (chronic) (peripheral) I87.2 Active [id number] Problem Bipolar II disorder F31.81 Active 51055759 Problem Stimulant abuse F15.10 Active 4415 02448 Problem ADD (attention deficit disorder) F90.0 Active 890373062 Problem Joint pain M25.50 Active 56741483 Problem Insomnia G47.00 Active 064159760 Problem Drug abuse counseling and surveillance of drug abuser Z71.51 Active 231400914 Problem Social anxiety disorder F40.10 Active 03985875 ALLERGIES No Information ENCOUNTERS Encounter Location Date Diagnosis [facility] [address] [facility] [id number] [address] [place] [address] Apr, [facility] [address] [facility] [id number] [address] [place] [address] Mar, [facility] [address] [facility] [id number] [address] [place] [address] Feb, BMI 45.0-49.9, adult Z68.42 ; Carpal tunnel syndrome on left G56.02 and Social anxiety disorder F40.10 [place] [address] [facility] [id number] [address] [place] [address] Jan, Bipolar II disorder F31.81 ; ADD (attention deficit disorder) without hyperactivity F98.8 ; Social anxiety disorder F40.10 and Stimulant abuse F15.10 [place] [address] [place] [id number] [address] [place] [address] Dec, Episode of recurrent major d epressive disorder, unspecified depression episode severity F33.9 ; Other chronic pain G89.29 ; Radiculopathy, lumbar region M54.16 ; Edema of lower extremity R60.0 and BMI 45.0-49.9, adult Z68.42 [place] [address] [place] [id number] [place] [address] Jun, [place] [address] [place] [id number] [place] [address] Jan, Joint pain M25.50 [place] [address] [place] [id number] [place] [address] Jan, Wellness examination Z00.00 ; Pain in right knee M25.561 ; Pain in left knee M25.562 ; Edema, unspecified type R60.9 and Drug abuse counseling and surveillance of drug abuser Z71.51 [place] [address] [place] [id number] [address] [place] [address] November, [place] [address] [place] [id number] [address] [place] [address] Oct, [place] [address] [place] [id number] [address] [place] [address] Oct, ADD (attention deficit disor josselin) F90.0 ; Social anxiety disorder F40.10 and Manic bipolar I disorder in partial remission F31.73 [place] [address] [place] [id number] [address] [place] [address] Aug, [place] [address] [place] [id number] [place] [address] Aug, [facility] [address] [facility] [id number] [address] [place] [address] Aug, [facility] [address] [facility] [id number] [address] [place] [address] Jul, [facility] [address] [facility] [id number] [address] [place] [address] Jul, [facility] [address] [facility] [id number] [address] [place] [address] Jul, [facility] [address] [facility] [id number] [address] [place] [address] Jun, [facility] [address] [facility] [id number] [address] [place] [address] Jun, [facility] [address] [facility] [id number] [address] [place] [address] Jun, [facility] [address] [facility] [id number] [address] [place] [address] Jun, [facility] [address] [facility] [id number] [address] [place] [address] May, Joint pain M25.50 ; ADD (att ention deficit disorder) F90.0 ; Edema R60.9 and Insomnia G47.00 [facility] [address] [facility] [id number] [address] [place] [address] May, [facility] [address] [facility] [id number] [address] [place] [address] May, [facility] [address] [facility] [id number] [address] [place] [address] May, [facility] [address] [place] [id number] [address] [place] [address] May, Left wrist pain M25.532 ; Si nusitis J32.9 and Drug abuse counseling and surveillance of drug abuser Z71.51 [facility] [address] [id number] [address] [place] [address] Apr, [facility] [address] [facility] [id number] [address] [place] [address] Apr, [facility] [address] [facility] [id number] [address] [place] [address] Apr, [facility] [address] [facility] [id number] [address] [place] [address] Apr, [facility] [address] [facility] [id number] [address] [place] [address] Apr, [facility] [address] [facility] [id number] [address] [place] [address] Apr, [facility] [address] [facility] [id number] [address] [place] [address] Apr, [facility] [address] [place] [id number] [place] [address] Mar, Unspecified venous (peripher al) insufficiency 459.81 ; Bipolar I disorder, most recent episode (or current) manic, moderate 296.42 ; Social phobia 300.23 ; Attention deficit disorder of childhood without mention of hyperactivity 314.00 ; Pain in joint, lower leg 719.46 ; Thrombosis 453.9 and Chronic pain 338.29 [facility] [address] [place] [id number] [address] [place] [address] 18 Mar, 2015 [facility] [address] [facility] [id number] [address] [place] [address] 18 Mar, 2015 [facility] [address] [facility] [id number] [address] [place] [address] 18 Mar, 2015 [facility] [address] [place] [id number] [address] [place] [address] 17 Mar, 2015 [facility] [address] [facility] [id number] [address] [place] [address] 17 Mar, 2014 [facility] [address] [facility] [id number] [address] [place] [address] Mar, [facility] [address] [facility] [id number] [address] [place] [address] Mar, Manic bipolar I disorder in partial remission 296.45 ; Social phobia 300.23 and Attention deficit disorder of childhood without mention of hyperactivity 314.00 [facility] [address] [facility] [id number] [address] [place] [address] Mar, [facility] [address] [facility] [id number] [address] [place] [address] Feb, [facility] [address] [facility] [id number] [address] [place] [address] Feb, Thrombosis 453.9 ; Unspecifi ed venous (peripheral) insufficiency 459.81 ; Bipolar I disorder, most recent episode (or current) manic, moderate 296.42 ; Social phobia 300.23 ; Attention deficit disorder of childhood without mention of hyperactivity 314.00 ; Pain in joint, lower leg 719.46 and Edema 782.3 [facility] [address] [facility] [id number] [address] [place] [address] Feb, [facility] [address] [facility] [id number] [address] [place] [address] Feb, Social phobia 300.23 ; Atten tion deficit disorder of childhood without mention of hyperactivity 314.00 and Bipolar I disorder, most recent episode manic, in partial remission 296.45 [facility] [address] [facility] [id number] [address] [place] [address] Jan, [facility] [address] [facility] [id number] [address] [place] [address] Jan, [facility] [address] [facility] [id number] [address] [place] [address] Jan, Unspecified venous (peripher al) insufficiency 459.81 and Thrombophlebitis 451.9 [facility] [address] [facility] [id number] [address] [place] [address] Jan, [facility] [address] [facility] [id number] [address] [place] [address] 23 Dec, 2014 Headache 784.0 and Back pain 724.5 [facility] [address] [id number] [address] [place] [address] Dec, [facility] [address] [facility] [id number] [address] [place] [address] Dec, Bipolar I disorder, most rec ent episode (or current) manic, moderate 296.42 ; Attention deficit disorder of childhood without mention of hyperactivity 314.00 and Social phobia 300.23 [facility] [address] [id number] [address] [place] [address] November, [facility] [address] [facility] [id number] [address] [place] [address] November, [facility] [address] [facility] [id number] [address] [place] [address] Oct, [facility] [address] [facility] [id number] [address] [place] [address] Oct, [facility] [address] [facility] [id number] [address] [place] [address] Sep, [facility] [address] [facility] [id number] [address] [place] [address] Sep, [facility] [address] [facility] [id number] [address] [place] [address] Aug, [facility] [address] [facility] [id number] [address] [place] [address] Aug, [facility] [address] [facility] [id number] [address] [place] [address] Aug, [facility] [address] [facility] [id number] [address] [place] [address] Aug, [facility] [address] [facility] [id number] [address] [place] [address] Aug, [facility] [address] [id number] [address] [place] [address], [place] [address] Aug, [facility] [address] [id number] [address] [place] [address], [place] [address] Aug, [facility] [address] [id number] [address] [place] [address], [place] [address] Jul, [facility] [address] [id number] [address] [place] [address], [place] [address] Jul, [facility] [address] [id number] [address] [place] [address], [place] [address] Jun, [facility] [address] [id number] [address] [place] [address], [place] [address] Jun, [facility] [address] [id number] [address] [place] [address], [place] [address] May, [facility] [address] [id number] [address] [place] [address], [place] [address] May, [facility] [address] [id number] [address] [place] [address], [place] [address] May, [facility] [address] [id number] [address] [place] [address], [place] [address] May, [facility] [address] [id number] [address] [place] [address], [place] [address] May, [facility] [address] [id number] [address] [place] [address], [place] [address] May, [facility] [address] [id number] [address] [place] [address], [place] [address] Apr, [facility] [address] [id number] [address] [place] [address], [place] [address] Apr, [facility] [address] [id number] [address] [place] [address], [place] [address] Apr, [facility] [address] [id number] [address] [place] [address], [place] [address] Apr, 2014 [facility] [address] [id number] [facility] [place] [address] 22 Sep, 2013 [facility] [address] [id number] [address] [place] [address], [place] [address] 22 Sep, 2013 [facility] [address] [id number] [address] [place] [address], [place] [address] 19 Sep, 2013 [facility] [address] [id number] [address] [place] [address], [place] [address] 16 Sep, 2013 [facility] [address] [id number] [address] [place] [address], [place] [address] 16 Sep, 2013 [facility] [address] [id number] [address] [place] [address], [place] [address] 15 Mar, 2013 [facility] [address] [id number] [address] [place] [address], [place] [address] 11 Mar, 2013 [facility] [address] [id number] [address] [place] [address], [place] [address] 11 Mar, 2013 [facility] [address] [id number] [address] [place] [address], [place] [address] 11 Mar, 2013 [facility] [address] [id number] [address] [place] [address], [place] [address] 11 Mar, 2013 [facility] [address] [id number] [address] [place] [address], [place] [address] 10 Sep, 2013 [facility] [address] [id number] [address] [place] [address], [place] [address] 09 Sep, 2013 [facility] [address] [id number] [address] [place] [address], [place] [address] 09 Sep, 2013 [facility] [address] [id number] [address] [place] [address], [place] [address] 02 Sep, 2013 [facility] [address] [id number] [address] [place] [address], [place] [address] 02 Sep, 2013 [facility] [address] [id number] [facility] [place] [address] Feb, [facility] [address] [id number] [address] [place] [address], [place] [address] Feb, [facility] [address] [id number] [address] [place] [address], [place] [address] Feb, [facility] [address] [id number] [address] [place] [address], [place] [address] Feb, [facility] [address] [id number] [address] [place] [address], [place] [address] Feb, [facility] [address] [id number] [address] [place] [address], [place] [address] Feb, [facility] [address] [id number] [address] [place] [address], [place] [address] Feb, [facility] [address] [id number] [address] [place] [address], [place] [address] Feb, [facility] [address] [id number] [address] [place] [address], [place] [address] Feb, [facility] [address] [id number] [address] [place] [address], [place] [address] Feb, [facility] [address] [id number] [address] [place] [address], [place] [address] Feb, [facility] [address] [id number] [address] [place] [address], [place] [address] Feb, [facility] [address] [id number] [address] [place] [address], [place] [address] Feb, [facility] [address] [id number] [address] [place] [address], [place] [address] Feb, [facility] [address] [id number] [address] [place] [address], [place] [address] Jan, [facility] [address] [id number] [address] [place] [address], [place] [address] Jan, [facility] [address] [id number] [address] [place] [address], [place] [address] 16 Jan, 2013 [facility] [address] [id number] [address] [place] [address], [place] [address] Jan, [facility] [address] [id number] [address] [place] [address], [place] [address] Jan, 2013 [facility] [address] [id number] [address] [place] [address], [place] [address] Jan, [facility] [address] [id number] [address] [place] [address], [place] [address] Jan, [facility] [address] [id number] [address] [place] [address], [place] [address] Dec, [facility] [address] [id number] [address] [place] [address], [place] [address] Dec, [facility] [address] [id number] [address] [place] [address], [place] [address] Dec, [facility] [address] [id number] [address] [place] [address], [place] [address] Dec, [facility] [address] [id number] [address] [place] [address], [place] [address] Dec, [facility] [address] [id number] [address] [place] [address], [place] [address] Dec, [facility] [address] [id number] [address] [place] [address], [place] [address] Dec, [facility] [address] [id number] [address] [place] [address], [place] [address] Dec, [facility] [address] [id number] [address] [place] [address], [place] [address] Dec, [facility] [address] [id number] [address] [place] [address], [place] [address] November, [facility] [address] [id number] [address] [place] [address], [place] [address] November, [facility] [address] [id number] [address] [place] [address], [place] [address] November, [facility] [address] [id number] [address] [place] [address], [place] [address] November, [facility] [address] [id number] [address] [place] [address], [place] [address] November, [facility] [address] [id number] [address] [place] [address], [place] [address] November, [facility] [address] [id number] [address] [place] [address], [place] [address] November, [facility] [address] [id number] [address] [place] [address], [place] [address] November, [facility] [address] [id number] [address] [place] [address], [place] [address] November, [facility] [address] [id number] [address] [place] [address], [place] [address] November, [facility] [address] [id number] [address] [place] [address], [place] [address] November, [facility] [address] [id number] [address] [place] [address], [place] [address] November, [facility] [address] [id number] [address] [place] [address], [place] [address] November, [facility] [address] [id number] [address] [place] [address], [place] [address] November, [facility] [address] [id number] [address] [place] [address], [place] [address] Oct, [facility] [address] [id number] [address] [place] [address], [place] [address] Oct, [facility] [address] [id number] [address] [place] [address], [place] [address] Oct, [facility] [address] [id number] [address] [place] [address], [place] [address] Oct, [facility] [address] [id number] [address] [place] [address], [place] [address] Oct, [facility] [address] [id number] [address] [place] [address], [place] [address] Oct, [facility] [address] [id number] [address] [place] [address], [place] [address] Sep, [facility] [address] [id number] [address] [place] [address], [place] [address] Sep, [facility] [address] [id number] [address] [place] [address], [place] [address] Sep, [facility] [address] [id number] [address] [place] [address], [place] [address] Sep, [facility] [address] [id number] [address] [place] [address], [place] [address] Aug, [facility] [address] [id number] [address] [place] [address], [place] [address] Aug, [facility] [address] [id number] [address] [place] [address], [place] [address] Aug, [facility] [address] [id number] [address] [place] [address], [place] [address] Aug, [facility] [address] [id number] [address] [place] [address], [place] [address] Jul, [facility] [address] [id number] [address] [place] [address], [place] [address] Jul, [facility] [address] [id number] [address] [place] [address], [place] [address] Jul, [facility] [address] [id number] [address] [place] [address], [place] [address] Jul, [facility] [address] [id number] [address] [place] [address], [place] [address] 15 Jul, 2013 [facility] [address] [id number] [address] [place] [address], [place] [address] 14 Jul, 2013 [facility] [address] [id number] [address] [place] [address], [place] [address] 14 Jul, 2013 [facility] [address] [id number] [address] [place] [address], [place] [address] Jun, [facility] [address] [id number] [address] [place] [address], [place] [address] 27 Jun, 2013 [facility] [address] [id number] [address] [place] [address], [place] [address] 17 Jun, 2013 [facility] [address] [id number] [address] [place] [address], [place] [address] 17 Jun, 2013 [facility] [address] [id number] [address] [place] [address], [place] [address] 13 Jun, 2013 [facility] [address] [id number] [address] [place] [address], [place] [address] Jun, [facility] [address] [id number] [address] [place] [address], [place] [address] 07 May, 2013 [facility] [address] [id number] [address] [place] [address], [place] [address] 07 May, 2013 [facility] [address] [id number] [address] [place] [address] 15 Apr, 2013 [facility] [address] [id number] [address] [place] [address] 15 Apr, 2013 [facility] [address] [id number] [address] [place] [address], [place] [address] 10 Apr, 2013 [facility] [facility] [address] [id number] [address] [place] [address] 10 Apr, 2013 [facility] [address] [id number] [address] [place] [address] 08 Apr, 2013 [facility] [address] [id number] [address] [place] [address], [place] [address] 24 Mar, 2013 [facility] [address] [id number] [address] [place] [address], [place] [address] 19 Mar, 2013 [facility] [address] [id number] [address] [place] [address], [place] [address] 12 Mar, 2013 [facility] [address] [id number] [address] [place] [address], [place] [address] 10 Mar, 2013 [facility] [address] [id number] [address] [place] [address], [place] [address] Feb, [facility] [address] [id number] [address] [place] [address], [place] [address] Feb, [facility] [address] [id number] [address] [place] [address], [place] [address] Jan, [facility] [address] [id number] [address] [place] [address], [place] [address] Jan, [facility] [address] [id number] [address] [place] [address], [place] [address] Jan, [facility] [address] [id number] [address] [place] [address], [place] [address] Jan, [facility] [address] [id number] [address] [place] [address], [place] [address] Dec, [facility] [address] [id number] [address] [place] [address], [place] [address] Dec, [facility] [address] [id number] [address] [place] [address], [place] [address] Dec, [facility] [address] [id number] [address] [place] [address], [place] [address] Dec, [facility] [address] [id number] [address] [place] [address], [place] [address] November, [facility] [address] [id number] [address] [place] [address], [place] [address] November, [facility] [address] [id number] [address] [place] [address], [place] [address] Oct, [facility] [address] [id number] [address] [place] [address], [place] [address] Sep, [facility] [address] [id number] [address] [place] [address], [place] [address] 08 Sep, 2012 [facility] [address] [id number] [address] [place] [address], [place] [address] 14 Aug, 2012 [facility] [address] [id number] [address] [place] [address], [place] [address] Aug, [facility] [address] [id number] [address] [place] [address], [place] [address] Jul, [facility] [address] [id number] [address] [place] [address], [place] [address] Jul, [facility] [address] [id number] [address] [place] [address], [place] [address] Jul, [facility] [address] [id number] [address] [place] [address], [place] [address] Jun, [facility] [address] [id number] [address] [place] [address], [place] [address] Jun, [facility] [address] [id number] [address] [place] [address], [place] [address] Jun, [facility] [address] [id number] [address] [place] [address], [place] [address] Jun, [facility] [address] [id number] [address] [place] [address], [place] [address] May, [facility] [address] [id number] [address] [place] [address], [place] [address] May, [facility] [address] [id number] [address] [place] [address], [place] [address] May, [facility] [address] [id number] [address] [place] [address] 14 May, 2012 [facility] [address] [id number] [address] [place] [address], [place] [address] 14 May, 2012 [facility] [address] [id number] [address] [place] [address], [place] [address] May, [facility] [address] [id number] [address] [place] [address], [place] [address] May, [facility] [address] [id number] [address] [place] [address], [place] [address] 15 Apr, 2012 [facility] [address] [id number] [address] [place] [address], [place] [address] Apr, [facility] [address] [id number] [address] [place] [address], [place] [address] Apr, [facility] [address] [id number] [address] [place] [address], [place] [address] Apr, [facility] [address] [id number] [address] [place] [address], [place] [address] Apr, [facility] [address] [id number] [address] [place] [address], [place] [address] Apr, [facility] [address] [id number] [address] [place] [address], [place] [address] Apr, [facility] [address] [id number] [address] [place] [address], [place] [address] Apr, [facility] [address] [id number] [address] [place] [address] Jan, [facility] [address] [id number] [address] [place] [address], [place] [address] Jan, [facility] [address] [id number] [address] [place] [address], [place] [address] Dec, [facility] [address] [id number] [address] [place] [address], [place] [address] November, [facility] [address] [id number] [facility] [place] [address] 27 Oct, 2011 [facility] [address] [id number] [address] [place] [address], [place] [address] 10 Oct, 2011 [facility] [address] [id number] [address] [place] [address], [place] [address] 03 Oct, 2011 [facility] [address] [id number] [address] [place] [address], [place] [address] 02 Oct, 2011 [facility] [address] [id number] [address] [place] [address], [place] [address] 26 Sep, 2011 [facility] [address] [id number] [address] [place] [address], [place] [address] Sep, [facility] [address] [id number] [address] [place] [address], [place] [address] Sep, [facility] [address] [id number] [address] [place] [address], [place] [address] Jun, [facility] [address] [id number] [address] [place] [address], [place] [address] 13 Jun, 2011 [facility] [address] [id number] [address] [place] [address], [place] [address] 22 May, 2011 [facility] [address] [id number] [address] [place] [address], [place] [address] 14 Jan, 2011 [facility] [address] [id number] [address] [place] [address], [place] [address] November, [facility] [address] [id number] [address] [place] [address], [place] [address] 14 Oct, 2010 [facility] [address] [id number] [address] [place] [address], [place] [address] 16 Sep, 2010 [facility] [address] [id number] [address] [place] [address], [place] [address] 30 May, 2010 [facility] [address] [id number] [address] [place] [address], [place] [address] Jul, [facility] [address] [id number] [address] [place] [address] Jun, [facility] [address] [id number] [address] [place] [address] Jun, [facility] [address] [id number] [address] [place] [address] Jun, [facility] [address] [id number] [address] [place] [address] Jun, [facility] [address] [id number] [address] [place] [address] May, [facility] [address] [id number] [address] [place] [address] May, [facility] [address] [id number] [address] [place] [address] Apr, [facility] [address] [id number] [address] [place] [address] Apr, [facility] [address] [id number] [address] [place] [address] Apr, IMMUNIZATIONS No Known Immunizations SOCIAL HISTORY Never Assessed REASON FOR VISIT repository medication refill request PLAN OF CARE VITAL SIGNS MEDICATIONS Medication Instructions Dosage Frequency Start Date End Date Duration S tatus Gabapentin 100 mg Orally 3 times a day 1 capsule 8h 90 days Active RESULTS No Results PROCEDURES No [...] right 06/1996 Surgical History multiple knee injections (8526-6966) Surgical History left knee replacement 06/11
--- OUTSIDE RECORDS SUMMARY | 2019-12-16 20:40 | XMS REPORT ---
Author Patti Mancini Organization [employer] Address Unknown Phone Unavailable Care Team Providers Care Technical Clerk Name Role Phone KAREN GIVENS CP Unavailable Allergies, Adverse Reactions, Alerts Substance Reaction Event Type Geodon jaw twitching Drug Allergy Fluoxetine ineffective Drug Allergy Cymbalta paranoia Drug Allergy Abilify headache Drug Allergy Hydrocodone VIOLATION OF NARCOTIC CONTRACT * Non Drug Allergy Problems Problem Type Condition ICD-9 Code Onset Dates Condition Statu s Problem Depressive disorder, not elsewhere classified 311 Active Problem Social phobia 300.23 Active Problem Attention deficit disorder o f childhood without mention of hyperactivity 314.00 Active Problem Edema 782.3 Active Problem Pain in joint, shoulder region 719.41 Active Problem Thrombosis 453.9 Active Problem Major depressive disorder, recurrent episode, moderate 296.32 Active Problem Bipolar I disorder, most recent episode (or current) manic, moderate 296.42 Active Problem Unspecified venous (peripheral) insufficiency 459.81 Active Problem Carpal tunnel syndrome 354.0 Activ e Assessment Edema 782.3 Active Assessment Pain in joint, lower leg 719.46 Act nayely Assessment Bipolar I disorder, most recent episode (or current) manic, moderate 296.42 Active Assessment Unspecified venous (peripheral) insufficiency 459.81 Active Assessment Attention deficit disorder o f childhood without mention of hyperactivity 314.00 Active Assessment Thrombosis 453.9 Active Assessment Social phobia 300.23 Active Problem Pain in joint, lower leg 719.46 Act nayely Medications Medication Code System Code Instructions Start Date End Date Status Dosage Medical Compression Pantyhose [facility] [address]85 15.20 February 07, 2015 15-20 Compression as directed Adderall [facility] [address]-93 20 MG Orally In the AM & 12 and 1/2 tab at 4pm ADHD Feb 26, 2015 1 tablet Potassium Chloride ER [facility] [address]-59 10 MEQ Ora lly Once a day while taking lasix February 07, 2015 1 tablet Lasix [facility] [address]-48 20 MG Orally Once a day February 07, 2015 1 tablet Neurontin [facility] [address]-93 400 MG 4 times a day Mar 13, 2014 1 Capsule by Oral route 4 times per day PRN back pain Loxapine Succinate [facility] [address]-10 10 MG Orally Once a d ay at bedtime October 09, 2014 1 capsule Hydrochlorothiazide [facility] 24113978896 50 MG TAKE ONE TABLET BY MOUTH ONCE DAILY Multivitamin [facility] [address] orally once a day Sep 11, 2014 1 tablet Vitamin D3 [facility] 62629-[address]75 4,000 unit Jul 06, 2014 1 capsule by Oral route 1 time per day tramadol NDC 0 50 mg 4 times a day May 17, 2014 Apr 12, 2015 take 1 tablet by Oral route 4 times per day as needed PRN pain Mobic [facility] [address]-90 7.5 MG Orally Once a day as needed for pain February 07, 2015 1 tablet Flexeril NDC 0 10 mg 3 times a day Mar 27, 2014 1 tablet by Oral route 3 times per day PRN Procedures Procedure Coding System Code Date Office Visit, Est Pt., Level 4 CPT-4 24708 A 2014 Vital Signs Date/Time: Mar 13, 2015 Temperature 98.4 F Weight 212.0 lbs Height 61 in BMI 40.05 Index Blood Pressure Diastolic 100 mmHg Blood Pressure Systolic 150 mmHg Cardiac Monitoring Heart Rate 100 bpm Results No Known Results Summary Purpose [employer] Submission
--- OUTSIDE RECORDS SUMMARY | 2019-12-16 20:40 | XMS REPORT ---
Author Author Patti GIVENS Organization [employer] Address Unknown Phone Unavailable Care Team Providers Care Manager Entry Name Role Phone KAREN GIVENS CP Unavailable Allergies No Known Allergies Problems Problem Type Condition ICD-9 Code Onset Dates Condition Statu s Problem Depressive disorder, not elsewhere classified 311 Active Problem Social phobia 300.23 Active Problem Attention deficit disorder o f childhood without mention of hyperactivity 314.00 Active Problem Pain in joint, lower leg 719.46 Act nayely Problem Edema 782.3 Active Problem Pain in joint, shoulder region 719.41 Active Problem Thrombosis 453.9 Active Problem Major depressive disorder, recurrent episode, moderate 296.32 Active Problem Bipolar I disorder, most recent episode (or current) manic, moderate 296.42 Active Problem Unspecified venous (peripheral) insufficiency 459.81 Active Problem Carpal tunnel syndrome 354.0 Activ e Medications Medication Code System Code Instructions Start Date End Date Status Dosage tramadol NDC 0 50 mg orally 4 times a day May 17, 2014Mar take 1 tablet by Oral route 4 times per day as needed PRN pain Results No Known Results Summary Purpose [employer] Submission
--- OUTSIDE RECORDS SUMMARY | 2019-12-16 20:40 | XMS REPORT ---
Author Author Patti GIVENS Organization [employer] Address Unknown Phone Unavailable Care Team Providers Care Avid Editor Name Role Phone KAREN GIVENS CP Unavailable [...] Carpal tunnel syndrome 354.0 Activ e Medications No Known Medications Results No Known Results Summary Purpose [employer] Submission
--- OUTSIDE RECORDS SUMMARY | 2019-12-16 20:40 | XMS REPORT ---
Author Author Patti FLORES Organization [facility] Address [address] [place] [address] Care Team Providers Care Critical Care Registered Nurse Name Role Phone KALEB FLORES Unavailable PROBLEMS Type Condition ICD9-CM Code ZDT46-PI Code Onset Dates Condition S tatus SNOMED Code Problem Manic bipolar I disorder in partial remission F31. 73 Active 22276910 Problem Episode of recurrent major d epressive disorder, unspecified depression episode severity F33.9 Active 723091624 Problem Edema, unspecified type R60.9 Active 216356220 Problem Carpal tunnel syndrome on left G56.02 Active 203268527534210 Problem ADD (attention deficit disorder) without hyperactivity F98.8 Active 98887424 Problem Other chronic pain G89.29 Active 8 1412676 Problem Venous insufficiency (chronic) (peripheral) I87.2 Active [id number] Problem Bipolar II disorder F31.81 Active 20988782 Problem Stimulant abuse F15.10 Active 4415 13710 Problem ADD (attention deficit disorder) F90.0 Active 425323753 Problem Joint pain M25.50 Active 58582424 Problem Insomnia G47.00 Active 382145006 Problem Drug abuse counseling and surveillance of drug abuser Z71.51 Active 109693116 Problem Social anxiety disorder F40.10 Active 11136531 ALLERGIES Substance Reaction Event Type Date Status Geodon jaw twitching Drug Allergy Dec, Active Fluoxetine ineffective Drug Allergy Dec, Active Cymbalta paranoia Drug Allergy Dec, Active Abilify headache Drug Allergy Dec, Active Hydrocodone VIOLATION OF NARCOTIC CONTRACT Non Dr ug Allergy Dec, Active ENCOUNTERS Encounter Location Date Diagnosis [facility] [address] [facility] [id number] [address] [place] [phone] Mar, [facility] [address] [facility] [id number] [address] [place] [address] Feb, BMI 45.0-49.9, adult Z68.42 ; Carpal tunnel syndrome on left G56.02 and Social anxiety disorder F40.10 [place] [address] [place] [id number] [address] [place] [phone] Jan, Bipolar II disorder F31.81 ; ADD (attention deficit disorder) without hyperactivity F98.8 ; Social anxiety disorder F40.10 and Stimulant abuse F15.10 [place] [address] [place] [id number] [address] [place] [phone] Dec, Episode of recurrent major d epressive disorder, unspecified depression episode severity F33.9 ; Other chronic pain G89.29 ; Radiculopathy, lumbar region M54.16 ; Edema of lower extremity R60.0 and BMI 45.0-49.9, adult Z68.42 [place] [address] [address] Jun, [place] [address] [place] [id number] [address] [place] [address] Jan, Joint pain M25.50 [place] [id number] [place] [address] Jan, Wellness examination Z00.00 ; Pain in right knee M25.561 ; Pain in left knee M25.562 ; Edema, unspecified type R60.9 and Drug abuse counseling and surveillance of drug abuser Z71.51 [place] [address] [place] [id number] [address] [place] [phone] November, [place] [address] [place] [id number] [address] [place] [phone] Oct, [place] [address] [place] [id number] [place] [address] Oct, ADD (attention deficit disor josselin) F90.0 ; Social anxiety disorder F40.10 and Manic bipolar I disorder in partial remission F31.73 [place] [address] [place] [id number] [address] [place] [phone] Aug, [facility] [address] [id number] [address] [place] [phone] Aug, [facility] [address] [id number] [address] [place] [phone] Aug, [facility] [address] [id number] [address] [place] [phone] Jul, [facility] [address] [id number] [address] [place] [phone] Jul, [facility] [address] [facility] [id number] [address] [place] [address] Jul, [facility] [address] [facility] [id number] [address] [place] [phone] Jun, [facility] [address] [facility] [id number] [address] [place] [address] Jun, [facility] [address] [facility] [id number] [address] [place] [phone] Jun, [facility] [address] [facility] [id number] [address] [place] [phone] Jun, [facility] [address] [facility] [id number] [address] [place] [phone] May, Joint pain M25.50 ; ADD (att ention deficit disorder) F90.0 ; Edema R60.9 and Insomnia G47.00 [facility] [address] [id number] [address] [place] [phone] May, [facility] [address] [facility] [id number] [address] [place] [phone] May, [facility] [address] [facility] [id number] [address] [place] [address] May, [facility] [address] [facility] [id number] [address] [place] [address] May, Left wrist pain M25.532 ; Si nusitis J32.9 and Drug abuse counseling and surveillance of drug abuser Z71.51 [facility] [address] [facility] [id number] [address] [place] [phone] Apr, [facility] [address] [facility] [id number] [address] [place] [phone] Apr, [facility] [address] [facility] [id number] [address] [place] [phone] Apr, [facility] [address] [facility] [id number] [address] [place] [address] Apr, [facility] [address] [facility] [id number] [address] [place] [phone] Apr, [facility] [address] [place] [id number] [address] [place] [phone] Apr, [facility] [address] [facility] [id number] [address] [place] [address] Apr, [facility] [address] [place] [id number] [address] [place] [address] Mar, Unspecified venous (peripher al) insufficiency 459.81 ; Bipolar I disorder, most recent episode (or current) manic, moderate 296.42 ; Social phobia 300.23 ; Attention deficit disorder of childhood without mention of hyperactivity 314.00 ; Pain in joint, lower leg 719.46 ; Thrombosis 453.9 and Chronic pain 338.29 [facility] [address] [facility] [id number] [address] [place] [address] Mar, [facility] [address] [facility] [id number] [address] [place] [phone] Mar, [facility] [address] [facility] [id number] [address] [place] [phone] Mar, [facility] [address] [facility] [id number] [address] [place] [phone] Mar, [facility] [address] [place] [id number] [address] [place] [phone] 17 Mar, 2015 [facility] [address] [facility] [id number] [address] [place] [phone] Mar, [facility] [address] [facility] [id number] [address] [place] [phone] Mar, Manic bipolar I disorder in partial remission 296.45 ; Social phobia 300.23 and Attention deficit disorder of childhood without mention of hyperactivity 314.00 [facility] [address] [facility] [id number] [address] [place] [address] Mar, [facility] [address] [facility] [id number] [address] [place] [phone] Feb, [facility] [address] [facility] [id number] [address] [place] [address] Feb, Thrombosis 453.9 ; Unspecifi ed venous (peripheral) insufficiency 459.81 ; Bipolar I disorder, most recent episode (or current) manic, moderate 296.42 ; Social phobia 300.23 ; Attention deficit disorder of childhood without mention of hyperactivity 314.00 ; Pain in joint, lower leg 719.46 and Edema 782.3 [facility] [address] [facility] [id number] [address] [place] [phone] Feb, [facility] [address] [facility] [id number] [address] [place] [address] Feb, Social phobia 300.23 ; Atten tion deficit disorder of childhood without mention of hyperactivity 314.00 and Bipolar I disorder, most recent episode manic, in partial remission 296.45 [facility] [address] [facility] [id number] [address] [place] [phone] Jan, [facility] [address] [facility] [id number] [address] [place] [phone] Jan, [facility] [address] [facility] [id number] [address] [place] [phone] Jan, Unspecified venous (peripher al) insufficiency 459.81 and Thrombophlebitis 451.9 [facility] [address] [facility] [id number] [address] [place] [phone] Jan, [facility] [address] [facility] [id number] [address] [place] [phone] Dec, Headache 784.0 and Back pain 724.5 [facility] [address] [facility] [id number] [address] [place] [address] Dec, [facility] [address] [facility] [id number] [address] [place] [address] Dec, Bipolar I disorder, most rec ent episode (or current) manic, moderate 296.42 ; Attention deficit disorder of childhood without mention of hyperactivity 314.00 and Social phobia 300.23 [facility] [address] [facility] [id number] [address] [place] [phone] November, [facility] [address] [facility] [id number] [address] [place] [phone] November, [facility] [address] [facility] [id number] [address] [place] [phone] Oct, [facility] [address] [facility] [id number] [address] [place] [phone] Oct, [facility] [address] [facility] [id number] [address] [place] [phone] Sep, [facility] [address] [facility] [id number] [address] [place] [phone] Sep, [facility] [address] [facility] [id number] [address] [place] [phone] Aug, [facility] [address] [facility] [id number] [address] [place] [phone] Aug, [facility] [address] [facility] [id number] [address] [place] [phone] Aug, [facility] [address] [facility] [id number] [address] [place] [phone] Aug, [facility] [address] [id number] [address] [place] [address], [place] [address] Aug, [facility] [address] [id number] [address] [place] [address], [place] [address] Aug, [facility] [address] [id number] [address] [place] [address], [place] [address] Aug, [facility] [address] [id number] [address] [place] [address], [place] [address] Jul, [facility] [address] [id number] [address] [place] [address], [place] [address] Jul, [facility] [address] [id number] [address] [place] [address], [place] [address] Jun, [facility] [address] [id number] [address] [place] [address], [place] [address] Jun, [facility] [address] [id number] [address] [place] [address], [place] [address] May, [facility] [address] [id number] [address] [place] [address], [place] [address] May, [facility] [address] [id number] [address] [place] [address], [place] [address] May, [facility] [address] [id number] [address] [place] [address], [place] [address] May, [facility] [address] [id number] [address] [place] [address], [place] [address] May, [facility] [address] [id number] [address] [place] [address], [place] [address] May, [facility] [address] [id number] [address] [place] [address], [place] [address] Apr, [facility] [address] [id number] [address] [place] [address], [place] [address] Apr, [facility] [address] [id number] [facility] [place] [address] 23 Apr, 2014 [facility] [address] [id number] [address] [place] [address], [place] [address] 23 Apr, 2014 [facility] [address] [id number] [address] [place] [address], [place] [address] 22 Mar, 2013 [facility] [address] [id number] [address] [place] [address], [place] [address] 22 Mar, 2013 [facility] [address] [id number] [address] [place] [address], [place] [address] 19 Mar, 2013 [facility] [address] [id number] [address] [place] [address], [place] [address] 16 Mar, 2013 [facility] [address] [id number] [address] [place] [address], [place] [address] 16 Mar, 2013 [facility] [address] [id number] [address] [place] [address], [place] [address] 15 Mar, 2013 [facility] [address] [id number] [address] [place] [address], [place] [address] 11 Mar, 2013 [facility] [address] [id number] [address] [place] [address], [place] [address] 11 Mar, 2013 [facility] [address] [id number] [address] [place] [address], [place] [address] 11 Mar, 2013 [facility] [address] [id number] [address] [place] [address], [place] [address] 11 Mar, 2013 [facility] [address] [id number] [address] [place] [address], [place] [address] 10 Mar, 2013 [facility] [address] [id number] [address] [place] [address], [place] [address] 09 Sep, 2013 [facility] [address] [id number] [address] [place] [address], [place] [address] 09 Sep, 2013 [facility] [address] [id number] [address] [place] [address], [place] [address] Mar, [facility] [address] [id number] [address] [place] [address], [place] [address] Mar, [facility] [address] [id number] [address] [place] [address], [place] [address] Feb, [facility] [address] [id number] [address] [place] [address], [place] [address] Feb, [facility] [address] [id number] [address] [place] [address], [place] [address] Feb, [facility] [address] [id number] [address] [place] [address], [place] [address] Feb, [facility] [address] [id number] [address] [place] [address], [place] [address] Feb, [facility] [address] [id number] [address] [place] [address], [place] [address] Feb, [facility] [address] [id number] [address] [place] [address], [place] [address] Feb, [facility] [address] [id number] [address] [place] [address], [place] [address] Feb, [facility] [address] [id number] [address] [place] [address], [place] [address] Feb, [facility] [address] [id number] [address] [place] [address], [place] [address] Feb, [facility] [address] [id number] [address] [place] [address], [place] [address] Feb, [facility] [address] [id number] [address] [place] [address], [place] [address] Feb, [facility] [address] [id number] [address] [place] [address], [place] [address] Feb, [facility] [address] [id number] [address] [place] [address], [place] [address] Feb, [facility] [address] [id number] [address] [place] [address], [place] [address] 17 Jan, 2013 [facility] [address] [id number] [facility] [place] [address] 17 Jan, 2013 [facility] [address] [id number] [address] [place] [address], [place] [address] 16 Jan, 2013 [facility] [address] [id number] [address] [place] [address], [place] [address] Jan, 2013 [facility] [address] [id number] [address] [place] [address], [place] [address] Jan, 2013 [facility] [address] [id number] [address] [place] [address], [place] [address] Jan, [facility] [address] [id number] [address] [place] [address], [place] [address] Jan, [facility] [address] [id number] [address] [place] [address], [place] [address] Dec, [facility] [address] [id number] [address] [place] [address], [place] [address] Dec, [facility] [address] [id number] [address] [place] [address], [place] [address] Dec, [facility] [address] [id number] [address] [place] [address], [place] [address] Dec, [facility] [address] [id number] [address] [place] [address], [place] [address] Dec, [facility] [address] [id number] [address] [place] [address], [place] [address] Dec, [facility] [address] [id number] [address] [place] [address], [place] [address] Dec, [facility] [address] [id number] [address] [place] [address], [place] [address] Dec, [facility] [address] [id number] [address] [place] [address], [place] [address] Dec, [facility] [address] [id number] [facility] [place] [address] November, [facility] [address] [id number] [facility] [place] [address] November, [facility] [address] [id number] [facility] [address] November, [facility] [address] [id number] [address] [place] [address], [place] [address] November, [facility] [address] [id number] [address] [place] [address], [place] [address] November, [facility] [address] [id number] [address] [place] [address], [place] [address] November, [facility] [address] [id number] [address] [place] [address], [place] [address] November, [facility] [address] [id number] [address] [place] [address], [place] [address] November, [facility] [address] [id number] [address] [place] [address], [place] [address] November, [facility] [address] [id number] [address] [place] [address], [place] [address] November, [facility] [address] [id number] [address] [place] [address], [place] [address] November, [facility] [address] [id number] [address] [place] [address], [place] [address] November, [facility] [address] [id number] [address] [place] [address], [place] [address] November, [facility] [address] [id number] [address] [place] [address], [place] [address] November, [facility] [address] [id number] [address] [place] [address], [place] [address] Oct, [facility] [address] [id number] [address] [place] [address], [place] [address] Oct, [facility] [address] [id number] [facility] [address] Oct, [facility] [address] [id number] [address] [place] [address], [place] [address] Oct, [facility] [address] [id number] [address] [place] [address], [place] [address] Oct, [facility] [address] [id number] [address] [place] [address], [place] [address] Oct, [facility] [address] [id number] [address] [place] [address], [place] [address] Sep, [facility] [address] [id number] [address] [place] [address], [place] [address] Sep, [facility] [address] [id number] [address] [place] [address], [place] [id number] Sep, [facility] [address] [id number] [address] [place] [address], [place] [id number] Sep, [facility] [address] [id number] [address] [place] [address], [place] [id number] Aug, [facility] [address] [id number] [address] [place] [address], [place] [id number] Aug, [facility] [address] [id number] [address] [place] [address], [place] [id number] Aug, [facility] [address] [id number] [address] [place] [address], [place] [id number] Aug, [facility] [address] [id number] [address] [place] [address], [place] [id number] Jul, [facility] [address] [id number] [address] [place] [address], [place] [id number] Jul, [facility] [address] [id number] [address] [place] [address], [place] [id number] Jul, [facility] [address] [id number] [address] [place] [address], [place] [id number] 23 Jul, 2013 [facility] [address] [id number] [address] [place] [address], [place] [id number] 15 Jul, 2013 [facility] [address] [id number] [address] [place] [address], [place] [id number] 14 Jul, 2013 [facility] [address] [id number] [address] [place] [address], [place] [id number] Jul, [facility] [address] [id number] [address] [place] [address], [place] [id number] 27 Jun, 2013 [facility] [address] [id number] [address] [place] [address], [place] [id number] 27 Jun, 2013 [facility] [address] [id number] [address] [place] [address], [place] [id number] 17 Jun, 2013 [facility] [address] [id number] [address] [place] [address], [place] [id number] 17 Jun, 2013 [facility] [address] [id number] [address] [place] [address], [place] [id number] Jun, [facility] [address] [id number] [address] [place] [address], [place] [id number] Jun, [facility] [address] [id number] [address] [place] [address], [place] [id number] 07 May, 2013 [facility] [address] [id number] [address] [place] [address], [place] [id number] 07 May, 2013 [facility] [address] [id number] [address] [place] [address], [place] [id number] 15 Apr, 2013 [facility] [address] [id number] [address] [place] [address], [place] [id number] 15 Apr, 2013 [facility] [address] [id number] [address] [place] [address], [place] [id number] 10 Apr, 2013 [facility] [address] [id number] [address] [place] [address], [place] [id number] Apr, [facility] [address] [id number] [address] [place] [address], [place] [id number] 08 Apr, 2013 [facility] [address] [id number] [address] [place] [address], [place] [id number] 24 Mar, 2013 [facility] [address] [id number] [address] [place] [address], [place] [id number] 19 Mar, 2013 [facility] [address] [id number] [address] [place] [address], [place] [id number] 12 Mar, 2013 [facility] [address] [id number] [address] [place] [address], [place] [id number] Mar, [facility] [address] [id number] [address] [place] [address], [place] [id number] Feb, [facility] [address] [id number] [address] [place] [address], [place] [id number] Feb, [facility] [address] [id number] [address] [place] [address], [place] [id number] Jan, [facility] [address] [id number] [address] [place] [address], [place] [id number] Jan, [facility] [address] [id number] [address] [place] [address], [place] [id number] Jan, [facility] [address] [id number] [address] [place] [address], [place] [id number] Jan, [facility] [address] [id number] [address] [place] [address], [place] [id number] Dec, [facility] [address] [id number] [address] [place] [address], [place] [id number] Dec, [facility] [address] [id number] [address] [place] [address], [place] [id number] Dec, [facility] [address] [id number] [address] [place] [address], [place] [address] Dec, [facility] [address] [id number] [address] [place] [address], [place] [id number] 16 Nov, 2012 [facility] [address] [id number] [address] [place] [address], [place] [id number] November, [facility] [address] [id number] [address] [place] [address], [place] [id number] 18 Oct, 2012 [facility] [address] [id number] [address] [place] [address], [place] [id number] Sep, [facility] [address] [id number] [address] [place] [address], [place] [id number] 08 Sep, 2012 [facility] [address] [id number] [address] [place] [address], [place] [id number] 14 Aug, 2012 [facility] [address] [id number] [address] [place] [address], [place] [address] Aug, [facility] [address] [id number] [address] [place] [address], [place] [id number] Jul, [facility] [address] [id number] [address] [place] [address], [place] [address] Jul, [facility] [address] [id number] [address] [place] [address], [place] [id number] Jul, [facility] [address] [id number] [address] [place] [address], [place] [address] Jun, [facility] [address] [id number] [address] [place] [address], [place] [address] Jun, [facility] [address] [id number] [address] [place] [address], [place] [address] Jun, [facility] [address] [id number] [address] [place] [address], [place] [id number] Jun, [facility] [address] [id number] [address] [place] [address], [place] [id number] May, [facility] [address] [id number] [address] [place] [address], [place] [address] May, [facility] [address] [id number] [address] [place] [address], [place] [id number] 19 May, 2012 [facility] [address] [id number] [address] [place] [address], [place] [id number] 14 May, 2012 [facility] [address] [id number] [address] [place] [address], [place] [id number] 14 May, 2012 [facility] [address] [id number] [address] [place] [address], [place] [address] May, [facility] [address] [id number] [address] [place] [address], [place] [id number] May, [facility] [address] [id number] [address] [place] [address], [place] [address] Apr, [facility] [address] [id number] [address] [place] [address], [place] [id number] 15 Apr, 2012 [facility] [address] [id number] [address] [place] [address], [place] [id number] Apr, [facility] [address] [id number] [address] [place] [address], [place] [address] Apr, [facility] [address] [id number] [address] [place] [address], [place] [id number] Apr, [facility] [address] [id number] [address] [place] [address], [place] [address] Apr, [facility] [address] [id number] [address] [place] [address], [place] [address] Apr, [facility] [address] [id number] [address] [place] [address], [place] [address] Apr, [facility] [address] [id number] [address] [place] [address], [place] [address] Jan, [facility] [address] [id number] [address] [place] [phone] Jan, [facility] [address] [id number] [address] [place] [id number] Dec, 2011 [facility] [address] [id number] [facility] [id number] 16 Nov, 2011 [facility] [address] [id number] [address] [place] [address], [place] [id number] 27 Oct, 2011 [facility] [address] [id number] [address] [place] [address], [place] [address] Oct, [facility] [address] [id number] [address] [place] [address], [place] [address] Oct, [facility] [address] [id number] [address] [place] [address], [place] [address] Oct, [facility] [address] [id number] [address] [place] [address], [place] [address] Sep, [facility] [address] [id number] [address] [place] [address], [place] [address] Sep, [facility] [address] [id number] [address] [place] [address], [place] [address] Sep, [facility] [address] [id number] [address] [place] [address], [place] [address] Jun, [facility] [address] [id number] [address] [place] [address], [place] [address] Jun, [facility] [address] [id number] [address] [place] [address], [place] [id number] 22 May, 2011 [facility] [address] [id number] [address] [place] [address], [place] [address] 14 Jan, 2011 [facility] [address] [id number] [address] [place] [address], [place] [address] 19 Nov, 2010 [facility] [address] [id number] [address] [place] [address], [place] [address] 14 Oct, 2010 [facility] [address] [id number] [address] [place] [address], [place] [address] 16 Sep, 2010 [facility] [address] [id number] [address] [place] [phone] May, [facility] [address] [id number] [address] [place] [id number] Jul, [facility] [address] [id number] [address] [place] [id number] Jun, [facility] [address] [id number] [address] [place] [id number] Jun, [facility] [address] [id number] [address] [place] [id number] Jun, [facility] [address] [id number] [address] [place] [id number] Jun, [facility] [address] [id number] [address] [place] [phone] May, [facility] [address] [id number] [address] [place] [phone] May, [facility] [address] [id number] [address] [place] [phone] Apr, [facility] [address] [id number] [address] [place] [phone] Apr, [facility] [address] [id number] [address] [place] [phone] Apr, IMMUNIZATIONS No Known Immunizations SOCIAL HISTORY Never Assessed REASON FOR VISIT Transition of Care WB-MA, arthritis in both shoulders and hips , pain from deep vein thrombosis, PT says her depression has been elevated the past month, PT has n't taken any medication in almost two years PLAN OF CARE Activity Details Follow Up 2 Weeks Reason:mental health issues or sooner if needed VITAL SIGNS Height 61 in 2018-01-14 Weight 242 lbs 2018-01-14 Temperature 97.6 degrees Fahrenheit 2018-01-14 Heart Rate 108 bpm 2018-01-14 Respiratory Rate 18 2018-01-14 BMI 45.72 kg/m2 2018-01-14 Blood pressure systolic 138 mmHg 2018-01-14 Blood pressure diastolic 92 mmHg 2018-01-14 MEDICATIONS Medication Instructions Dosage Frequency Start Date End Date Duration S steve Adderall 20 MG TAKE ONE TABLET BY M OUTH IN THE MORNING, ONE TABLET AT NOON AND ONE-HALF TABLET AT 4:00PM 14 No t-Taking Potassium Chloride ER 10 MEQ Orally Once a day while taking lasix 1 tablet Jan, Not-Taking Mobic 7.5 MG Orally Once a day as needed for pain 1 tablet 2014 Not-Taking Neurontin 400 MG 1 Capsule by Oral route 4 times per d ay PRN back pain 6h Feb, 30 Not-Taking EpiPen 0.3 mg/0.3 mL (1:1,000) inject 0. 3 milliliter (0.3 mg) by intramuscular route once as needed for anaphylaxis May, Not-Taking Zoloft 50 MG Orally Once a day 1 tablet 24h Dec, 30 day(s) Active Vitamin D3 4,000 unit 1 capsule by Oral route 1 time per day Jun, Not-Taking Flexeril 10 mg 1 tablet by Oral route 3 times per day PRN 8h Mar, Not-Taking Loxapine Succinate 10 MG Orally Once a day at bedtime 1 capsule Sep, Not-Taking Multivitamin orally once a day 1 tablet 24h 17 Aug, 2014 Not-Taking Lasix 20 MG Orally Once a day 1 tablet 24h Jan, Not-Taking Neurontin 100 mg Orally Three times a day 1 capsule 8h Dec, 30 day(s) Active Medical Compression Pantyhose 15.20 15-20 Compression as directed Jan, Not-Taking Mobic 7.5 MG Orally Once a day 1 tablet 24h Dec,Mar, 8 30 day(s) Active Tramadol HCl 50 MG Orally twice a day 1 tablet as needed 12h May, 28days Not-Taking Loxapine Succinate 10 mg Orally Once a day 1 capsule 24h Oct, 6 Not-Taking Cyclobenzaprine HCl 10 mg Orally Once a day prn muscle spasm 1 t ablet as needed Dec, Mar, 28 days Active Hydrochlorothiazide 50 mg TAKE ONE TABLET BY MOUTH ONCE DAILY 30 Not-Taking RESULTS No Results PROCEDURES No Known procedures [...] right 06/1996 Surgical History multiple knee injections ([id number]) Surgical History left knee replacement 06/11
--- OUTSIDE RECORDS SUMMARY | 2019-12-16 20:40 | XMS REPORT ---
Author Author Patti Danielle Organization [facility] Address [address] [place] [address] Care Team Providers Care Machine Printer Name Role Phone KAREN Danielle Unavailable PROBLEMS Type Condition ICD9-CM Code THL29-[place] Code Onset Dates Condition S tatus SNOMED Code Problem ADD (attention deficit disorder) F90.0 Active 758341116 Problem Insomnia G47.00 Active 617349118 Problem Joint pain M25.50 Active 88915722 Problem Drug abuse counseling and surveillance of drug abuser Z71.51 Active 190073106 Problem Left wrist pain M25.532 Active 5660 8008 Problem Sinusitis J32.9 Active 70201253 Problem Pain in right knee M25.561 Active 3 2212954 Problem Pain in left knee M25.562 Active 30 312990 Problem Manic bipolar I disorder in partial remission F31. 73 Active 35355434 Problem Social anxiety disorder F40.10 Active 10056548 Problem Wellness examination Z00.00 Active 944364344 Problem Edema, unspecified type R60.9 Active 099070320 ALLERGIES No Information ENCOUNTERS Encounter Location Date Diagnosis [facility] [address] [facility] [id number] [address] [place] [address] Dec, [facility] [address] [facility] [id number] [address] [place] [address] Jun, [facility] [address] [facility] [id number] [address] [place] [address] Jan, Joint pain M25.50 [facility] [address] [id number] [address] [place] [address] Jan, Wellness examination Z00.00 ; Pain in right knee M25.561 ; Pain in left knee M25.562 ; Edema, unspecified type R60.9 and Drug abuse counseling and surveillance of drug abuser Z71.51 [facility] [address] [facility] [id number] [address] [place] [address] November, [facility] [address] [facility] [id number] [address] [place] [id number] Oct, [facility] [address] [id number] [address] [place] [address] Oct, ADD (attention deficit disor josselin) F90.0 ; Social anxiety disorder F40.10 and Manic bipolar I disorder in partial remission F31.73 [facility] [address] [id number] [address] [place] [address] Aug, [facility] [address] [id number] [address] [place] [address] Aug, [facility] [address] [id number] [address] [place] [address] Aug, [facility] [address] [facility] [id number] [address] [place] [address] Jul, [facility] [address] [id number] [address] [place] [address] Jul, [facility] [address] [id number] [address] [place] [address] Jul, [facility] [address] [id number] [address] [place] [address] Jun, [facility] [address] [id number] [address] [place] [address] Jun, [facility] [address] [id number] [address] [place] [address] Jun, [facility] [address] [id number] [address] [place] [address] Jun, [facility] [address] [id number] [address] [place] [address] May, Joint pain M25.50 ; ADD (att ention deficit disorder) F90.0 ; Edema R60.9 and Insomnia G47.00 [facility] [address] [id number] [address] [place] [address] May, [facility] [address] [id number] [address] [place] [address] May, [facility] [address] [id number] [address] [place] [address] May, [facility] [address] [id number] [address] [place] [address] May, Left wrist pain M25.532 ; Si nusitis J32.9 and Drug abuse counseling and surveillance of drug abuser Z71.51 [facility] [address] [id number] [address] [place] [address] Apr, [facility] [address] [id number] [address] [place] [address] Apr, [facility] [address] [id number] [address] [place] [address] Apr, [facility] [address] [id number] [address] [place] [address] Apr, [facility] [address] [id number] [address] [place] [address] Apr, [facility] [address] [id number] [address] [place] [address] Apr, [facility] [address] [facility] [id number] [address] [place] [address] Apr, [facility] [address] [id number] [address] [place] [address] Mar, Unspecified venous (peripher al) insufficiency 459.81 ; Bipolar I disorder, most recent episode (or current) manic, moderate 296.42 ; Social phobia 300.23 ; Attention deficit disorder of childhood without mention of hyperactivity 314.00 ; Pain in joint, lower leg 719.46 ; Thrombosis 453.9 and Chronic pain 338.29 [facility] [address] [id number] [address] [place] [phone] 18 Mar, 2015 [facility] [address] [facility] [id number] [address] [place] [address] Mar, [facility] [address] [id number] [address] [place] [address] Mar, [facility] [address] [id number] [address] [place] [address] Mar, [facility] [address] [id number] [address] [place] [address] Mar, [facility] 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 and Attention deficit disorder of childhood without mention of hyperactivity 314.00 [facility] [address] [id number] [address] [place] [address] Mar, [facility] [address] [id number] [address] [place] [address] Feb, [facility] [address] [id number] [address] [place] [address] Feb, Thrombosis 453.9 ; Unspecifi ed venous (peripheral) insufficiency 459.81 ; Bipolar I disorder, most recent episode (or current) manic, moderate 296.42 ; 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 [id number] [address] [place] [phone] Jan, [facility] [address] [id number] [address] [place] [address] Jan, [facility] [address] [id number] [address] [place] [address] Jan, Unspecified venous (peripher al) insufficiency 459.81 and Thrombophlebitis 451.9 [facility] [id number] [place] [address] Jan, [facility] [address] [id number] [address] [place] [address] Dec, Headache 784.0 and Back pain 724.5 [facility] [address] [id number] [address] [place] [phone] Dec, [facility] [address] [id number] [address] [place] [address] Dec, Bipolar I disorder, most rec ent episode (or current) manic, moderate 296.42 ; Attention deficit disorder of childhood without mention of hyperactivity 314.00 and 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 [id number] [address] [place] [phone] November, [facility] [address] [id number] [address] [place] [phone] November, [facility] [address] [id number] [address] [place] [address] Oct, [facility] [address] [id number] [address] [place] [phone] Oct, [facility] [address] [id number] [address] [place] [address] Sep, [facility] [address] [id number] [address] [place] [address], [place] [address] Sep, [facility] [address] [id number] [address] [place] [address], [place] [address] Aug, 2014 [facility] [address] [id number] [address] [place] [address], [place] [address] Aug, 2014 [facility] [address] [id number] [address] [place] [address], [place] [address] Aug, 2014 [facility] [address] [id number] [address] [place] [address], [place] [address] Aug, 2014 [facility] [address] [id number] [address] [place] [address], [place] [address] Aug, 2014 [facility] [address] [id number] [address] [place] [address], [place] [address] Aug, [facility] [address] [id number] [address] [place] [address], [place] [address] Aug, [facility] [address] [id number] [address] [place] [address], [place] [address] Jul, [facility] [address] [id number] [address] [place] [address], [place] [address] Jul, [facility] [address] [id number] [address] [place] [address], [place] [address] Jun, [facility] [address] [id number] [address] [place] [address], [place] [address] Jun, [facility] [address] [id number] [address] [place] [address], [place] [address] May, [facility] [address] [id number] [address] [place] [address], [place] [address] May, [facility] [address] [id number] [address] [place] [address], [place] [address] May, [facility] [address] [id number] [address] [place] [address] [place] [address] May, [facility] [address] [id number] [address] [place] [address], [place] [address] May, [facility] [address] [id number] [address] [place] [address], [place] [address] May, [facility] [address] [id number] [address] [place] [address], [place] [address] Apr, [facility] [address] [id number] [address] [place] [address], [place] [address] Apr, [facility] [address] [id number] [address] [place] [address], [place] [address] Apr, [facility] [address] [id number] [address] [place] [address], [place] [address] Apr, [facility] [address] [id number] [address] [place] [address], [place] [address] 22 Mar, 2014 [facility] [address] [id number] [address] [place] [address], [place] [address] 22 Sep, 2013 [facility] [address] [id number] [address] [place] [address], [place] [address] 19 Sep, 2013 [facility] [address] [id number] [address] [place] [address], [place] [address] 16 Sep, 2013 [facility] [address] [id number] [address] [place] [address], [place] [address] 16 Sep, 2013 [facility] [address] [id number] [address] [place] [address], [place] [address] 15 Sep, 2013 [facility] [address] [id number] [address] [place] [address], [place] [address] 11 Sep, 2013 [facility] [address] [id number] [address] [place] [address], [place] [address] 11 Sep, 2013 [facility] [address] [id number] [address] [place] [address], [place] [address] 11 Mar, 2013 [facility] [address] [id number] [facility] [place] [address] 11 Mar, 2013 [facility] [address] [id number] [facility] [place] [address] 10 Mar, 2013 [facility] [address] [id number] [address] [place] [address], [place] [address] 09 Mar, 2013 [facility] [address] [id number] [address] [place] [address], [place] [address] Mar, 2013 [facility] [address] [id number] [address] [place] [address], [place] [address] Mar, 2013 [facility] [address] [id number] [address] [place] [address], [place] [address] Mar, 2013 [facility] [address] [id number] [address] [place] [address], [place] [address] Feb, [facility] [address] [id number] [address] [place] [address], [place] [address] Feb, [facility] [address] [id number] [address] [place] [address], [place] [address] Feb, [facility] [address] [id number] [address] [place] [address], [place] [address] Feb, [facility] [address] [id number] [address] [place] [address], [place] [address] Feb, [facility] [address] [id number] [address] [place] [address], [place] [address] Feb, [facility] [address] [id number] [address] [place] [address], [place] [address] Feb, [facility] [address] [id number] [address] [place] [address], [place] [address] Feb, [facility] [address] [id number] [address] [place] [address], [place] [address] Feb, [facility] [address] [id number] [address] [place] [address], [place] [address] Feb, [facility] [address] [id number] [facility] [place] [address] Feb, [facility] [address] [id number] [address] [place] [address], [place] [address] Feb, [facility] [address] [id number] [address] [place] [address], [place] [address] Feb, [facility] [address] [id number] [address] [place] [address], [place] [address] Feb, [facility] [address] [id number] [address] [place] [address], [place] [address] Jan, [facility] [address] [id number] [address] [place] [address], [place] [address] Jan, [facility] [address] [id number] [address] [place] [address], [place] [address] Jan, [facility] [address] [id number] [address] [place] [address], [place] [address] Jan, [facility] [address] [id number] [address] [place] [address], [place] [address] Jan, [facility] [address] [id number] [address] [place] [address], [place] [address] Jan, [facility] [address] [id number] [address] [place] [address], [place] [address] Jan, [facility] [address] [id number] [address] [place] [address], [place] [address] Dec, [facility] [address] [id number] [address] [place] [address], [place] [address] Dec, [facility] [address] [id number] [address] [place] [address], [place] [address] Dec, [facility] [address] [id number] [address] [place] [address], [place] [address] Dec, [facility] [address] [id number] [facility] [place] [place] [address] Dec, [facility] [address] [id number] [address] [place] [address], [place] [address] Dec, [facility] [address] [id number] [facility] [place] [place] [address] Dec, [facility] [address] [id number] [address] [place] [address], [place] [address] Dec, [facility] [address] [id number] [address] [place] [address], [place] [address] Dec, [facility] [address] [id number] [address] [place] [address], [place] [address] November, [facility] [address] [id number] [address] [place] [address], [place] [address] November, [facility] [address] [id number] [address] [place] [address], [place] [address] November, [facility] [address] [id number] [address] [place] [address], [place] [address] November, [facility] [address] [id number] [address] [place] [address], [place] [address] November, [facility] [address] [id number] [address] [place] [address], [place] [address] November, [facility] [address] [id number] [address] [place] [address], [place] [address] November, [facility] [address] [id number] [address] [place] [address], [place] [address] November, [facility] [address] [id number] [address] [place] [address], [place] [address] November, [facility] [address] [id number] [address] [place] [address], [place] [address] November, [facility] [address] [id number] [address] [place] [address], [place] [address] November, [facility] [address] [id number] [address] [place] [address], [place] [address] November, [facility] [address] [id number] [address] [place] [address], [place] [address] November, [facility] [address] [id number] [address] [place] [address], [place] [address] November, [facility] [address] [id number] [address] [place] [address], [place] [address] Oct, [facility] [address] [id number] [address] [place] [address], [place] [address] Oct, [facility] [address] [id number] [address] [place] [address], [place] [address] Oct, [facility] [address] [id number] [address] [place] [address], [place] [address] Oct, [facility] [address] [id number] [address] [place] [address], [place] [address] Oct, [facility] [address] [id number] [address] [place] [address], [place] [address] Oct, [facility] [address] [id number] [address] [place] [address], [place] [address] Sep, [facility] [address] [id number] [address] [place] [address], [place] [address] Sep, [facility] [address] [id number] [address] [place] [address], [place] [address] Sep, [facility] [address] [id number] [address] [place] [address], [place] [address] Sep, [facility] [address] [id number] [address] [place] [address], [place] [address] Aug, [facility] [address] [id number] [address] [place] [address], [place] [address] Aug, [facility] [address] [id number] [address] [place] [address], [place] [address] Aug, [facility] [address] [id number] [address] [place] [address], [place] [address] Aug, [facility] [address] [id number] [address] [place] [address], [place] [address] Jul, [facility] [address] [id number] [address] [place] [address], [place] [address] Jul, [facility] [address] [id number] [address] [place] [address], [place] [address] Jul, [facility] [address] [id number] [address] [place] [address], [place] [address] Jul, [facility] [address] [id number] [address] [place] [address], [place] [address] Jul, [facility] [address] [id number] [address] [place] [address], [place] [address] Jul, [facility] [address] [id number] [address] [place] [address], [place] [address] Jul, [facility] [address] [id number] [address] [place] [address], [place] [address] Jun, [facility] [address] [id number] [address] [place] [address], [place] [address] Jun, [facility] [address] [id number] [address] [place] [address], [place] [address] 17 Jun, 2013 [facility] [address] [id number] [address] [place] [address], [place] [address] 17 Jun, 2013 [facility] [address] [id number] [address] [place] [address], [place] [address] 13 Jun, 2013 [facility] [address] [id number] [address] [place] [address], [place] [address] Jun, [facility] [address] [id number] [address] [place] [address], [place] [address] 07 May, 2013 [facility] [address] [id number] [address] [place] [address], [place] [address] 07 May, 2013 [facility] [address] [id number] [address] [place] [address], [place] [address] 15 Apr, 2013 [facility] [address] [id number] [address] [place] [address], [place] [address] 15 Apr, 2013 [facility] [address] [id number] [address] [place] [address], [place] [address] 10 Apr, 2013 [facility] [address] [id number] [address] [place] [address], [place] [address] 10 Apr, 2013 [facility] [address] [id number] [address] [place] [address], [place] [address] 08 Apr, 2013 [facility] [address] [id number] [address] [place] [address], [place] [address] 24 Mar, 2013 [facility] [address] [id number] [address] [place] [address], [place] [address] 19 Mar, 2013 [facility] [address] [id number] [address] [place] [address], [place] [address] Mar, [facility] [address] [id number] [address] [place] [address], [place] [address] Mar, [facility] [address] [id number] [address] [place] [address], [place] [address] 16 Feb, 2013 [facility] [address] [id number] [address] [place] [address], [place] [address] Feb, [facility] [address] [id number] [address] [place] [address], [place] [address] Jan, [facility] [address] [id number] [address] [place] [address], [place] [address] Jan, [facility] [address] [id number] [address] [place] [address], [place] [address] Jan, [facility] [address] [id number] [address] [place] [address], [place] [address] Jan, [facility] [address] [id number] [address] [place] [address], [place] [address] 28 Dec, 2012 [facility] [address] [id number] [address] [place] [address], [place] [address] Dec, [facility] [address] [id number] [address] [place] [address], [place] [address] Dec, [facility] [address] [id number] [address] [place] [address], [place] [address] Dec, [facility] [address] [id number] [address] [place] [address], [place] [address] November, [facility] [address] [id number] [address] [place] [address], [place] [address] November, [facility] [address] [id number] [address] [place] [address], [place] [address] Oct, [facility] [address] [id number] [address] [place] [address], [place] [address] Sep, [facility] [address] [id number] [address] [place] [address], [place] [address] Sep, [facility] [address] [id number] [address] [place] [address], [place] [address] 14 Aug, 2012 [facility] [address] [id number] [address] [place] [address], [place] [address] Aug, [facility] [address] [id number] [address] [place] [address], [place] [address] Jul, [facility] [address] [id number] [address] [place] [address], [place] [address] Jul, [facility] [address] [id number] [address] [place] [address], [place] [address] Jul, [facility] [address] [id number] [address] [place] [address], [place] [address] Jun, [facility] [address] [id number] [address] [place] [address], [place] [address] Jun, [facility] [address] [id number] [address] [place] [address], [place] [address] 15 Jun, 2012 [facility] [address] [id number] [address] [place] [address], [place] [address] 15 Jun, 2012 [facility] [address] [id number] [address] [place] [address], [place] [address] May, [facility] [address] [id number] [address] [place] [address], [place] [address] May, [facility] [address] [id number] [address] [place] [address], [place] [address] May, [facility] [address] [id number] [address] [place] [address], [place] [address] 14 May, 2012 [facility] [address] [id number] [address] [place] [address], [place] [address] May, [facility] [address] [id number] [address] [place] [address], [place] [address] May, [facility] [address] [id number] [address] [place] [address], [place] [address] May, [facility] [address] [id number] [address] [place] [address], [place] [address] 15 Apr, 2012 [facility] [address] [id number] [address] [place] [address], [place] [address] 15 Apr, 2012 [facility] [address] [id number] [address] [place] [address], [place] [address] 15 Apr, 2012 [facility] [address] [id number] [address] [place] [address], [place] [address] 15 Apr, 2012 [facility] [address] [id number] [address] [place] [address], [place] [address] Apr, [facility] [address] [id number] [address] [place] [address] Apr, [facility] [address] [id number] [address] [place] [address], [place] [address] Apr, [facility] [address] [id number] [address] [place] [address], [place] [address] Apr, [facility] [address] [id number] [address] [place] [address], [place] [address] Jan, [facility] [address] [id number] [address] [place] [address], [place] [address] Jan, [facility] [address] [id number] [address] [place] [address], [place] [address] Dec, [facility] [address] [id number] [address] [place] [address], [place] [address] November, [facility] [address] [id number] [address] [place] [address], [place] [address] Oct, [facility] [address] [id number] [address] [place] [address], [place] [address] Oct, [facility] [address] [id number] [address] [place] [address], [place] [address] Oct, [facility] [address] [id number] [address] [place] [address], [place] [address] Oct, [facility] [address] [id number] [address] [place] [address], [place] [address] Sep, [facility] [address] [id number] [address] [place] [address], [place] [address] Sep, [facility] [address] [id number] [address] [place] [address], [place] [address] Sep, [facility] [address] [id number] [address] [place] [address], [place] [address] Jun, [facility] [address] [id number] [address] [place] [address], [place] [address] Jun, [facility] [address] [id number] [address] [place] [address] 22 May, 2011 [facility] [address] [id number] [address] [place] [address] 14 Jan, 2011 [facility] [address] [id number] [address] [place] [address] November, [facility] [address] [id number] [address] [place] [address] 14 Oct, 2010 [facility] [address] [id number] [address] [place] [address] 16 Sep, 2010 [facility] [address] [id number] [address] [place] [address] 30 May, 2010 [facility] [address] [id number] [address] [place] [address] Jul, [facility] [address] [id number] [address] [place] [address] Jun, [facility] [address] [id number] [address] [place] [address] Jun, [facility] [address] [id number] [address] [place] [address] 15 Jun, 2009 [facility] [address] [id number] [address] [place] [address] 15 Jun, 2009 [facility] [address] [id number] [address] [place] [address] 17 May, 2009 [facility] [address] [id number] [address] [place] [address] May, [facility] [address] [id number] [address] [place] [address] 28 Apr, 2009 [facility] [address] [id number] [address] [place] [address] Apr, [facility] [address] [id number] [address] [place] [address] 13 Apr, 2009 IMMUNIZATIONS No Known Immunizations SOCIAL HISTORY Never Assessed REASON FOR VISIT triage - CBowmanRN PLAN OF CARE VITAL SIGNS MEDICATIONS Unknown [...] right 06/1996 Surgical History multiple knee injections ([id number])
--- OUTSIDE RECORDS SUMMARY | 2019-12-16 20:40 | XMS REPORT ---
Author Author Patti GIVENS Organization [employer] Address Unknown Phone Unavailable Care Team Providers Care Shift Leader Name Role Phone KAREN GIVENS CP Unavailable Allergies, Adverse Reactions, Alerts Substance Reaction Event Type Geodon jaw twitching Drug Allergy Fluoxetine ineffective Drug Allergy Cymbalta paranoia Drug Allergy Abilify headache Drug Allergy Hydrocodone VIOLATION OF NARCOTIC CONTRACT * Non Drug Allergy Problems Problem Type Condition Code Onset Dates Condition Statu s Problem [...] Carpal tunnel syndrome 354.0 Activ e Assessment Chronic pain 338.29 Active Assessment Thrombosis 453.9 Active Assessment Social phobia 300.23 Active Assessment Bipolar I disorder, most recent episode (or current) manic, moderate 296.42 Active Assessment Pain in joint, lower leg 719.46 Act nayely Assessment Unspecified venous (peripheral) insufficiency 459.81 Active Assessment Attention deficit disorder o f childhood without mention of hyperactivity 314.00 Active Problem Pain in joint, lower leg 719.46 Act nayely Medications Medication Code System Code Instructions Start Date End Date Status Dosage Multivitamin [facility] [address] orally once a day Sep 11, 2014 1 tablet Lasix [facility] [address]-44 20 MG Orally Once a day February 07, 2015 1 tablet Mobic [facility] [address]-30 7.5 MG Orally Once a day as needed for pain February 07, 2015 1 tablet Hydrochlorothiazide [facility] 14855882626 50 MG TAKE ONE TABLET BY MOUTH ONCE DAILY Medical Compression Pantyhose [facility] [address] 15.20 February 07, 2015 15-20 Compression as directed Potassium Chloride ER [facility] [address]-43 10 MEQ Ora lly Once a day while taking lasix February 07, 2015 1 tablet Loxapine Succinate [facility] [address]-69 10 MG Orally Once a d ay at bedtime October 09, 2014 1 capsule Tramadol HCl NDC 0 not defined Flexeril ND 0 10 mg 3 times a day Mar 27, 2014 1 tablet by Oral route 3 times per day PRN Adderall [facility] [address]-70 20 MG Orally In the AM & 12 and 1/2 tab at 4pm ADHD DR. Duque to sign for Bernice Feb 26, 2015 1 tablet Neurontin [facility] [address]-26 400 MG 4 times a day Mar 13, 2014 1 Capsule by Oral route 4 times per day PRN back pain Procedures Procedure Coding System Code Date Office Visit, Est Pt., Level 4 CPT-4 60818 S ept 2014 Vital Signs Date/Time: Apr 15, 2015 Temperature 98.3 F Weight 207.9 lbs Height 61 in BMI 39.28 Index Blood Pressure Diastolic 60 mmHg Blood Pressure Systolic 120 mmHg Cardiac Monitoring Heart Rate 78 bpm Results No Known Results Summary Purpose [employer] Submission
--- OUTSIDE RECORDS SUMMARY | 2019-12-16 20:40 | XMS REPORT ---
Author Author Patti AGEE Organization [employer] Address Unknown Phone Unavailable Care Team Providers Care Diving Judge Name Role Phone GEOVANNY AGEE CP Unavailable Allergies No Known Allergies Problems [...] Instructions Start Date End Date Status Dosage Adderall [facility] [address]-38 20 MG Orally In the AM & 12 and 1/2 tab at 4pm ADHD Feb 26, 2015 1 tablet Results No Known Results Summary Purpose [employer] Submission
--- OUTSIDE RECORDS SUMMARY | 2019-12-16 20:40 | XMS REPORT ---
Author Author Patti GIVENS Organization [employer] Address Unknown Phone Unavailable Care Team Providers Care Diesel Machinist Name Role Phone KAREN GIVENS CP Unavailable [...]
--- OUTSIDE RECORDS SUMMARY | 2019-12-16 20:40 | XMS REPORT ---
Author Patti Mancini [facility] [employer] Address Unknown Phone Unavailable Care Team Providers Care Cd Reactor Operator Name Role Phone KAREN GIVENS CP Unavailable Allergies, Adverse Reactions, Alerts Substance Reaction Event Type Geodon jaw twitching Drug Allergy Fluoxetine ineffective Drug Allergy Cymbalta paranoia Drug Allergy Abilify headache Drug Allergy Hydrocodone VIOLATION OF NARCOTIC CONTRACT * Non Drug Allergy Problems Problem Type Condition Code Onset Dates Condition Statu s Problem Left wrist pain M25.532 Active Problem ADD (attention deficit disorder) F90.0 Active Problem Insomnia G47.00 Active Problem Pain in right knee M25.561 Active Problem Pain in left knee M25.562 Active Problem Wellness examination Z00.00 Active Problem Manic bipolar I disorder in partial remission F31.73 Active Problem Joint pain M25.50 Active Problem Edema, unspecified type R60.9 Acti ve Problem Social anxiety disorder F40.10 Acti ve Assessment Drug abuse counseling and surveillance of drug abuser Z71.51 Active Assessment Pain in right knee M25.561 Active Assessment Wellness examination Z00.00 Active Assessment Edema, unspecified type R60.9 Acti ve Problem Drug abuse counseling and surveillance of drug abuser Z71.51 Active Assessment Pain in left knee M25.562 Active Problem Sinusitis J32.9 Active Medications Medication Code System Code Instructions Start Date End Date Status Dosage Hydrochlorothiazide [facility] [address]-70 50 mg TAKE ONE TABLET BY MOUTH ONCE DAILY Neurontin [facility] [address]-55 400 MG 4 times a day Mar 13, 2014 1 Capsule by Oral route 4 times per day PRN back pain Nabumetone [facility] [address]-90 750 MG Orally Twice a day JanuaryMar 11, 2016 1 tablet Flexeril NDC 0 10 mg 3 times a day Mar 27, 2014 1 tablet by Oral route 3 times per day PRN Procedures Procedure Coding System Code Date TORADOL (IM) 60 MG/2ML (UP TO 15 MG) CPT-4 J1885 February 10, 2016 THER/PROPH/DIAG INJ, SC/IM CPT-4 90028 February 10, 2016 Office Visit, Est Pt., Level 4 CPT-4 00927 [facility] 2015 Vital Signs Date/Time: February 10, 2016 Cardiac Monitoring Heart Rate 80 bpm Weight 222 lbs Height 61 in Blood Pressure Diastolic 72 mmHg Blood Pressure Systolic 126 mmHg Results No Known Results Summary Purpose [employer] Submission
--- OUTSIDE RECORDS SUMMARY | 2019-12-16 20:40 | XMS REPORT ---
Author Author Patti DIMAS Organization [facility] Address [address] [place] [address] Care Team Providers Care Bag Adjuster Name Role Phone DELMAR DIMAS Unavailable PROBLEMS Type Condition ICD9-CM Code XPO12-OB Code Onset Dates Condition S tatus SNOMED Code Problem Manic bipolar I disorder in partial remission F31. 73 Active 80188521 Problem Episode of recurrent major d epressive disorder, unspecified depression episode severity F33.9 Active 906877977 Problem Edema, unspecified type R60.9 Active 585357249 Problem Carpal tunnel syndrome on left G56.02 Active [id number] Problem ADD (attention deficit disorder) without hyperactivity F98.8 Active 67005951 Problem Other chronic pain G89.29 Active 8 7907501 Problem Venous insufficiency (chronic) (peripheral) I87.2 Active [id number] Problem Bipolar II disorder F31.81 Active 35165575 Problem Stimulant abuse F15.10 Active 4415 81837 Problem ADD (attention deficit disorder) F90.0 Active 828295819 Problem Joint pain M25.50 Active 11209862 Problem Insomnia G47.00 Active 569705520 Problem Drug abuse counseling and surveillance of drug abuser Z71.51 Active 426258686 Problem Social anxiety disorder F40.10 Active 75208189 ALLERGIES Substance Reaction Event Type Date Status Geodon jaw twitching Drug Allergy Jan, Active Fluoxetine ineffective Drug Allergy Jan, Active Cymbalta paranoia Drug Allergy Jan, Active Abilify headache Drug Allergy Jan, Active Hydrocodone VIOLATION OF NARCOTIC CONTRACT Non Dr ug Allergy Jan, Active ENCOUNTERS Encounter Location Date Diagnosis [facility] [address] [facility] [id number] [address] [place] [address] Mar, [facility] [address] [facility] [id number] [address] [place] [address] Mar, [place] [address] [place] [id number] [address] [place] [address] Feb, BMI 45.0-49.9, adult Z68.42 ; Carpal tunnel syndrome on left G56.02 and Social anxiety disorder F40.10 [place] [address] [place] [id number] [place] [address] Jan, Bipolar II disorder F31.81 ; ADD (attention deficit disorder) without hyperactivity F98.8 ; Social anxiety disorder F40.10 and Stimulant abuse F15.10 [place] [address] [place] [id number] [place] [address] Dec, Episode of recurrent major d epressive disorder, unspecified depression episode severity F33.9 ; Other chronic pain G89.29 ; Radiculopathy, lumbar region M54.16 ; Edema of lower extremity R60.0 and BMI 45.0-49.9, adult Z68.42 [place] [address] [place] [id number] [place] [address] Jun, [place] [address] [place] [id number] [place] [address] Jan, Joint pain M25.50 [place] [address] [place] [id number] [place] [address] Jan, Wellness examination Z00.00 ; Pain in right knee M25.561 ; Pain in left knee M25.562 ; Edema, unspecified type R60.9 and Drug abuse counseling and surveillance of drug abuser Z71.51 [place] [address] [place] [id number] [address] [place] [address] November, [place] [address] [place] [id number] [address] [place] [address] Oct, [place] [address] [place] [id number] [address] [place] [address] Oct, ADD (attention deficit disor josselin) F90.0 ; Social anxiety disorder F40.10 and Manic bipolar I disorder in partial remission F31.73 [facility] [address] [facility] [id number] [address] [place] [address] Aug, [facility] [address] [facility] [id number] [address] [place] [address] Aug, [facility] [address] [facility] [id number] [address] [place] [address] Aug, [facility] [address] [facility] [id number] [address] [place] [address] Jul, [facility] [address] [facility] [id number] [address] [place] [address] Jul, [facility] [address] [facility] [id number] [address] [place] [address] Jul, [facility] [address] [place] [id number] [address] [place] [address] Jun, [facility] [address] [facility] [id number] [address] [place] [address] Jun, [facility] [address] [place] [id number] [address] [place] [address] Jun, [facility] [address] [place] [id number] [address] [place] [address] Jun, [facility] [address] [place] [id number] [address] [place] [address] May, Joint pain M25.50 ; ADD (att ention deficit disorder) F90.0 ; Edema R60.9 and Insomnia G47.00 [facility] [address] [facility] [id number] [address] [place] [address] May, [facility] [address] [facility] [id number] [address] [place] [address] May, [facility] [address] [place] [id number] [address] [place] [address] May, [facility] [address] [facility] [id number] [address] [place] [address] May, Left wrist pain M25.532 ; Si nusitis J32.9 and Drug abuse counseling and surveillance of drug abuser Z71.51 [facility] [address] [facility] [id number] [address] [place] [address] Apr, [facility] [address] [facility] [id number] [address] [place] [address] Apr, [facility] [address] [facility] [id number] [address] [place] [address] Apr, [facility] [address] [facility] [id number] [address] [place] [address] Apr, [facility] [address] [facility] [id number] [address] [place] [address] Apr, [facility] [address] [facility] [id number] [address] [place] [address] Apr, [facility] [address] [facility] [id number] [address] [place] [address] Apr, [facility] [address] [facility] [id number] [address] [place] [address] Mar, Unspecified venous (peripher al) insufficiency 459.81 ; Bipolar I disorder, most recent episode (or current) manic, moderate 296.42 ; Social phobia 300.23 ; Attention deficit disorder of childhood without mention of hyperactivity 314.00 ; Pain in joint, lower leg 719.46 ; Thrombosis 453.9 and Chronic pain 338.29 [facility] [address] [facility] [id number] [address] [place] [address] Mar, [facility] [address] [facility] [id number] [address] [place] [address] Mar, [facility] [address] [facility] [id number] [address] [place] [address] Mar, [facility] [address] [place] [id number] [address] [place] [address] Mar, [facility] [address] [id number] [address] [place] [address] Mar, [facility] [address] [id number] [address] [place] [address] Mar, [facility] [address] [facility] [id number] [address] [place] [address] Mar, Manic bipolar I disorder in partial remission 296.45 ; Social phobia 300.23 and Attention deficit disorder of childhood without mention of hyperactivity 314.00 [facility] [address] [facility] [id number] [address] [place] [address] Mar, [facility] [address] [facility] [id number] [address] [place] [address] Feb, [facility] [address] [facility] [id number] [address] [place] [address] Feb, Thrombosis 453.9 ; Unspecifi ed venous (peripheral) insufficiency 459.81 ; Bipolar I disorder, most recent episode (or current) manic, moderate 296.42 ; Social phobia 300.23 ; Attention deficit disorder of childhood without mention of hyperactivity 314.00 ; Pain in joint, lower leg 719.46 and Edema 782.3 [facility] [address] [facility] [id number] [address] [place] [address] Feb, [facility] [address] [facility] [id number] [address] [place] [address] Feb, Social phobia 300.23 ; Atten tion deficit disorder of childhood without mention of hyperactivity 314.00 and Bipolar I disorder, most recent episode manic, in partial remission 296.45 [facility] [address] [facility] [id number] [address] [place] [address] Jan, [facility] [address] [facility] [id number] [address] [place] [address] Jan, [facility] [address] [facility] [id number] [address] [place] [address] 16 Jan, 2015 Unspecified venous (peripher al) insufficiency 459.81 and Thrombophlebitis 451.9 [facility] [address] [facility] [id number] [address] [place] [address] 15 Jan, 2015 [facility] [address] [place] [id number] [address] [place] [address] Dec, Headache 784.0 and Back pain 724.5 [facility] [address] [facility] [id number] [address] [place] [address] Dec, [facility] [address] [place] [id number] [place] [address] Dec, Bipolar I disorder, most rec ent episode (or current) manic, moderate 296.42 ; Attention deficit disorder of childhood without mention of hyperactivity 314.00 and Social phobia 300.23 [facility] [address] [place] [id number] [address] [place] [address] November, [facility] [address] [place] [id number] [address] [place] [address] November, [facility] [address] [place] [id number] [address] [place] [address] Oct, [facility] [address] [place] [id number] [address] [place] [address] Oct, [facility] [address] [place] [id number] [address] [place] [address] Sep, [facility] [address] [facility] [id number] [address] [place] [address] Sep, [facility] [address] [place] [id number] [address] [place] [address] Aug, [facility] [address] [facility] [id number] [address] [place] [address] Aug, [facility] [address] [place] [id number] [address] [place] [address] Aug, [facility] [address] [id number] [address] [place] [address], [place] [address] Aug, 2014 [facility] [address] [id number] [address] [place] [address], [place] [address] Aug, 2014 [facility] [address] [id number] [address] [place] [address], [place] [address] Aug, [facility] [address] [id number] [address] [place] [address], [place] [address] Aug, [facility] [address] [id number] [address] [place] [address], [place] [address] Jul, [facility] [address] [id number] [address] [place] [address], [place] [address] Jul, [facility] [address] [id number] [address] [place] [address], [place] [address] Jun, [facility] [address] [id number] [address] [place] [address], [place] [address] Jun, [facility] [address] [id number] [address] [place] [address], [place] [address] May, [facility] [address] [id number] [address] [place] [address], [place] [address] May, [facility] [address] [id number] [address] [place] [address], [place] [address] May, [facility] [address] [id number] [address] [place] [address], [place] [address] May, [facility] [address] [id number] [address] [place] [address], [place] [address] May, [facility] [address] [id number] [address] [place] [address], [place] [address] May, [facility] [address] [id number] [address] [place] [address], [place] [address] Apr, [facility] [address] [id number] [facility] [place] [address] 25 Apr, 2014 [facility] [address] [id number] [facility] [place] [address] 23 Apr, 2014 [facility] [address] [id number] [facility] [place] [address] 23 Apr, 2014 [facility] [address] [id number] [address] [place] [address], [place] [address] 22 Sep, 2013 [facility] [address] [id number] [address] [place] [address], [place] [address] 22 Sep, 2013 [facility] [address] [id number] [address] [place] [address], [place] [address] 19 Sep, 2013 [facility] [address] [id number] [address] [place] [address], [place] [address] 16 Mar, 2013 [facility] [address] [id number] [address] [place] [address], [place] [address] 16 Mar, 2013 [facility] [address] [id number] [address] [place] [address], [place] [address] 15 Sep, 2013 [facility] [address] [id number] [address] [place] [address], [place] [address] 11 Mar, 2013 [facility] [address] [id number] [address] [place] [address], [place] [address] 11 Mar, 2013 [facility] [address] [id number] [address] [place] [address], [place] [address] 11 Mar, 2013 [facility] [address] [id number] [address] [place] [address], [place] [address] 11 Sep, 2013 [facility] [address] [id number] [address] [place] [address], [place] [address] 10 Sep, 2013 [facility] [address] [id number] [address] [place] [address], [place] [address] 09 Sep, 2013 [facility] [address] [id number] [address] [place] [address], [place] [address] Mar, [facility] [address] [id number] [facility] [place] [address] Mar, [facility] [address] [id number] [address] [place] [address], [place] [address] Mar, [facility] [address] [id number] [address] [place] [address], [place] [address] Feb, [facility] [address] [id number] [address] [place] [address], [place] [address] Feb, [facility] [address] [id number] [address] [place] [address], [place] [address] Feb, [facility] [address] [id number] [address] [place] [address], [place] [address] Feb, [facility] [address] [id number] [address] [place] [address], [place] [address] Feb, [facility] [address] [id number] [address] [place] [address], [place] [address] Feb, [facility] [address] [id number] [address] [place] [address], [place] [address] Feb, [facility] [address] [id number] [address] [place] [address], [place] [address] Feb, [facility] [address] [id number] [address] [place] [address], [place] [address] Feb, [facility] [address] [id number] [address] [place] [address], [place] [address] Feb, [facility] [address] [id number] [address] [place] [address], [place] [address] Feb, [facility] [address] [id number] [address] [place] [address], [place] [address] Feb, [facility] [address] [id number] [address] [place] [address], [place] [address] Feb, [facility] [address] [id number] [address] [place] [address], [place] [address] Feb, [facility] [address] [id number] [address] [place] [address], [place] [address] Jan, 2013 [facility] [address] [id number] [address] [place] [address], [place] [address] Jan, 2013 [facility] [address] [id number] [address] [place] [address], [place] [address] Jan, 2013 [facility] [address] [id number] [address] [place] [address], [place] [address] Jan, 2013 [facility] [address] [id number] [address] [place] [address], [place] [address] Jan, [facility] [address] [id number] [address] [place] [address], [place] [address] Jan, [facility] [address] [id number] [address] [place] [address], [place] [address] Jan, [facility] [address] [id number] [address] [place] [address], [place] [address] Dec, [facility] [address] [id number] [address] [place] [address], [place] [address] Dec, [facility] [address] [id number] [address] [place] [address], [place] [address] Dec, [facility] [address] [id number] [address] [place] [address], [place] [address] Dec, [facility] [address] [id number] [address] [place] [address], [place] [address] Dec, [facility] [address] [id number] [address] [place] [address], [place] [address] Dec, [facility] [address] [id number] [address] [place] [address], [place] [address] Dec, [facility] [address] [id number] [address] [place] [address], [place] [address] Dec, [facility] [address] [id number] [address] [place] [address], [place] [address] Dec, [facility] [address] [id number] [address] [place] [address], [place] [address] November, [facility] [address] [id number] [address] [place] [address], [place] [address] November, [facility] [address] [id number] [address] [place] [address], [place] [address] November, [facility] [address] [id number] [address] [place] [address], [place] [address] November, [facility] [address] [id number] [address] [place] [address], [place] [address] November, [facility] [address] [id number] [address] [place] [address], [place] [address] November, [facility] [address] [id number] [address] [place] [address], [place] [address] November, [facility] [address] [id number] [address] [place] [address], [place] [address] November, [facility] [address] [id number] [address] [place] [address], [place] [address] November, [facility] [address] [id number] [address] [place] [address], [place] [address] November, [facility] [address] [id number] [address] [place] [address], [place] [address] November, [facility] [address] [id number] [address] [place] [address], [place] [address] November, [facility] [address] [id number] [address] [place] [address], [place] [address] November, [facility] [address] [id number] [address] [place] [address], [place] [address] November, [facility] [address] [id number] [address] [place] [address], [place] [address] Oct, [facility] [address] [id number] [address] [place] [address], [place] [address] Oct, [facility] [address] [id number] [address] [place] [address], [place] [address] Oct, [facility] [address] [id number] [address] [place] [address], [place] [address] Oct, [facility] [address] [id number] [address] [place] [address], [place] [address] Oct, [facility] [address] [id number] [address] [place] [address], [place] [address] Oct, [facility] [address] [id number] [address] [place] [address], [place] [address] Sep, [facility] [address] [id number] [address] [place] [address], [place] [address] Sep, [facility] [address] [id number] [address] [place] [address], [place] [address] Sep, [facility] [address] [id number] [address] [place] [address], [place] [address] Sep, [facility] [address] [id number] [address] [place] [address], [place] [address] Aug, [facility] [address] [id number] [address] [place] [address], [place] [address] Aug, [facility] [address] [id number] [address] [place] [address], [place] [address] Aug, [facility] [address] [id number] [address] [place] [address], [place] [address] Aug, [facility] [address] [id number] [address] [place] [address], [place] [address] Jul, [facility] [address] [id number] [address] [place] [address], [place] [address] Jul, [facility] [address] [id number] [address] [place] [address], [place] [address] Jul, [facility] [address] [id number] [address] [place] [address], [place] [address] Jul, [facility] [address] [id number] [address] [place] [address], [place] [address] Jul, [facility] [address] [id number] [address] [place] [address], [place] [address] Jul, [facility] [address] [id number] [address] [place] [address], [place] [address] Jul, [facility] [address] [id number] [address] [place] [address], [place] [address] Jun, [facility] [address] [id number] [address] [place] [address], [place] [address] Jun, [facility] [address] [id number] [address] [place] [address], [place] [address] 17 Jun, 2013 [facility] [address] [id number] [address] [place] [address], [place] [address] 17 Jun, 2013 [facility] [address] [id number] [address] [place] [address], [place] [address] Jun, [facility] [address] [id number] [address] [place] [address], [place] [address] Jun, [facility] [address] [id number] [address] [place] [address], [place] [address] May, [facility] [address] [id number] [address] [place] [address], [place] [address] 07 May, 2013 [facility] [address] [id number] [address] [place] [address], [place] [address] 15 Apr, 2013 [facility] [address] [id number] [address] [place] [address], [place] [address] 15 Apr, 2013 [facility] [address] [id number] [address] [place] [address], [place] [address] Apr, [facility] [address] [id number] [address] [place] [address], [place] [address] 10 Apr, 2013 [facility] [address] [id number] [address] [place] [address], [place] [address] 08 Apr, 2013 [facility] [address] [id number] [address] [place] [address], [place] [address] 24 Mar, 2013 [facility] [address] [address] [id number] [address] [place] [address], [place] [address] 19 Mar, 2013 [facility] [address] [id number] [address] [place] [address], [place] [address] Mar, [facility] [address] [id number] [address] [place] [address], [place] [address] Mar, [facility] [address] [id number] [address] [place] [address], [place] [address] Feb, [facility] [address] [id number] [address] [place] [address], [place] [address] Feb, [facility] [address] [id number] [address] [place] [address], [place] [address] Jan, [facility] [address] [id number] [address] [place] [address], [place] [address] Jan, [facility] [address] [id number] [address] [place] [address], [place] [address] Jan, [facility] [address] [id number] [address] [place] [address], [place] [address] Jan, [facility] [address] [id number] [address] [place] [address], [place] [address] Dec, [facility] [address] [id number] [address] [place] [address], [place] [address] Dec, [facility] [address] [id number] [address] [place] [address], [place] [address] Dec, [facility] [address] [id number] [address] [place] [address], [place] [address] 06 Dec, 2012 [facility] [address] [id number] [address] [place] [address], [place] [address] 16 Nov, 2012 [facility] [address] [id number] [address] [place] [address], [place] [address] November, [facility] [address] [id number] [address] [place] [address], [place] [address] Oct, [facility] [address] [id number] [address] [place] [address], [place] [address] Sep, [facility] [address] [id number] [address] [place] [address], [place] [address] Sep, [facility] [address] [id number] [address] [place] [address], [place] [address] 14 Aug, 2012 [facility] [address] [id number] [address] [place] [address], [place] [address] 13 Aug, 2012 [facility] [address] [id number] [address] [place] [address], [place] [address] 18 Jul, 2012 [facility] [address] [id number] [address] [place] [address], [place] [address] Jul, [facility] [address] [id number] [address] [place] [address], [place] [address] Jul, [facility] [address] [id number] [address] [place] [address], [place] [address] Jun, [facility] [address] [id number] [address] [place] [address], [place] [address] Jun, [facility] [address] [id number] [address] [place] [address], [place] [address] Jun, [facility] [address] [id number] [address] [place] [address], [place] [address] Jun, [facility] [address] [id number] [address] [place] [address], [place] [address] May, [facility] [address] [id number] [address] [place] [address], [place] [address] May, [facility] [address] [id number] [address] [place] [address], [place] [address] May, [facility] [address] [id number] [address] [place] [address], [place] [address] May, [facility] [address] [id number] [address] [place] [address], [place] [address] 14 May, 2012 [facility] [address] [id number] [address] [place] [address], [place] [address] May, [facility] [address] [id number] [address] [place] [address], [place] [address] May, [facility] [address] [id number] [address] [place] [address], [place] [address] Apr, [facility] [address] [id number] [address] [place] [address], [place] [address] Apr, [facility] [address] [id number] [address] [place] [address], [place] [address] Apr, [facility] [address] [id number] [address] [place] [address], [place] [address] Apr, [facility] [address] [id number] [address] [place] [address], [place] [address] Apr, [facility] [address] [id number] [address] [place] [address] Apr, [facility] [address] [id number] [address] [place] [address], [place] [address] Apr, [facility] [address] [id number] [address] [place] [address], [place] [address] Apr, [facility] [address] [id number] [address] [place] [address], [place] [address] Jan, [facility] [address] [id number] [address] [place] [address] Jan, [facility] [address] [id number] [address] [place] [address], [place] [address] Dec, [facility] [address] [id number] [address] [place] [address], [place] [address] November, [facility] [address] [id number] [address] [place] [address], [place] [address] Oct, [facility] [address] [id number] [address] [place] [address], [place] [address] Oct, [facility] [address] [id number] [address] [place] [address], [place] [address] Oct, [facility] [address] [id number] [address] [place] [address], [place] [address] Oct, [facility] [address] [id number] [address] [place] [address], [place] [address] Sep, [facility] [address] [id number] [address] [place] [address], [place] [address] Sep, [facility] [address] [id number] [address] [place] [address], [place] [address] Sep, [facility] [address] [id number] [address] [place] [address], [place] [address] Jun, [facility] [address] [id number] [address] [place] [address], [place] [address] Jun, [facility] [address] [id number] [address] [place] [address], [place] [address] May, [facility] [address] [id number] [address] [place] [address], [place] [address] 14 Jan, 2011 [facility] [address] [id number] [address] [place] [address], [place] [address] November, [facility] [address] [id number] [address] [place] [address], [place] [address] 14 Oct, 2010 [facility] [address] [id number] [address] [place] [address] 16 Sep, 2010 [facility] [address] [id number] [address] [place] [address] 30 May, 2010 [facility] [address] [id number] [address] [place] [address] Jul, [facility] [address] [id number] [address] [place] [address] Jun, [facility] [address] [id number] [address] [place] [address] Jun, [facility] [address] [id number] [address] [place] [address] Jun, [facility] [address] [id number] [address] [place] [address] Jun, [facility] [address] [id number] [address] [place] [address] May, [facility] [address] [id number] [address] [place] [address] May, [facility] [address] [id number] [address] [place] [address] Apr, [facility] [address] [id number] [address] [place] [address] Apr, [facility] [address] [id number] [address] [place] [address] Apr, IMMUNIZATIONS No Known Immunizations SOCIAL HISTORY Never Assessed REASON FOR VISIT cinda -Hollis RUIZ PLAN OF CARE Activity Details Follow Up 4 Weeks Reason: f/u VITAL SIGNS Height 61 in 2018-01-31 Weight 244.3 lbs 2018-01-31 Heart Rate 95 bpm 2018-01-31 Respiratory Rate 20 2018-01-31 Oximetry on room air:98 % 2018-01-31 BMI 46.16 kg/m2 2018-01-31 Blood pressure systolic 132 mmHg 2018-01-31 Blood pressure diastolic 80 mmHg 2018-01-31 MEDICATIONS Medication Instructions Dosage Frequency Start Date End Date Duration S steve Adderall 20 MG TAKE ONE TABLET BY M OUTH IN THE MORNING, ONE TABLET AT NOON AND ONE-HALF TABLET AT 4:00PM 14 No t-Taking Neurontin 100 mg Orally Three times a day 1 capsule 8h Dec, 30 day(s) Active Lasix 20 MG Orally Once a day 1 tablet 24h Jan, Not-Taking Mobic 7.5 MG Orally Once a day as needed for pain 1 tablet 2014 Not-Taking Loxapine Succinate 10 MG Orally Once a day at bedtime 1 capsule Sep, Not-Taking EpiPen 0.3 mg/0.3 mL (1:1,000) inject 0. 3 milliliter (0.3 mg) by intramuscular route once as needed for anaphylaxis May, Not-Taking Cyclobenzaprine HCl 10 mg Orally Once a day prn muscle spasm 1 t ablet as needed Dec, Mar, 28 days Active Loxapine Succinate 10 mg Orally Once a day 1 capsule 24h Oct, 6 Not-Taking Hydrochlorothiazide 50 mg TAKE ONE TABLET BY MOUTH ONCE DAILY 30 Not-Taking Medical Compression Pantyhose 15.20 15-20 Compression as directed Jan, Not-Taking Multivitamin orally once a day 1 tablet 24h Aug, Not-Taking Potassium Chloride ER 10 MEQ Orally Once a day while taking lasix 1 tablet Jan, Not-Taking Mobic 7.5 MG Orally Once a day 1 tablet 24h Dec,Mar, 201 8 30 day(s) Active Flexeril 10 mg 1 tablet by Oral route 3 times per day PRN 8h Mar, Not-Taking Tramadol HCl 50 MG Orally twice a day 1 tablet as needed 12h May, 28days Not-Taking Neurontin 400 MG 1 Capsule by Oral route 4 times per d ay PRN back pain 6h Feb, 30 Not-Taking Vitamin D3 4,000 unit 1 capsule by Oral route 1 time per day Jun, Not-Taking Zoloft 50 MG Orally Once a day 1 tablet 24h Dec, Active Lamictal 25 MG Orally Once a day for two weeks, then 2 tablets nightly 1 tablet Jan, 30 day(s) Active RESULTS Name Result Date Reference Range URINE DRUG SCREEN (IN HOUSE) 2018-01-31 Lot # [id number] Exp date 03/2019 Control + COCAINE Negative AMPH Positive MTD Negative THC Negative OPIATE Negative BENZO Negative PCP Negative BAR Negative OXY Negative MAMP Positive BUP Negative MDMA Negative TCA PROCEDURES Procedure Date Ordered Result Body Site DRUG TEST PRSMV DIR OPT OBS January 31, 2018 INSTRUCTIONS MEDICATIONS ADMINISTERED No Known Medications [...] right 06/1996 Surgical History multiple knee injections ([id number]) Surgical History left knee replacement 06/11
--- OUTSIDE RECORDS SUMMARY | 2019-12-16 20:41 | XMS REPORT ---
Author Author Patti AGEE Organization [employer] Address Unknown Phone Unavailable Care Team Providers Care Guide Dog Trainer Name Role Phone GEOVANNY AGEE CP Unavailable [...]
--- OUTSIDE RECORDS SUMMARY | 2019-12-16 20:41 | XMS REPORT ---
Author Author Patti GIVENS Organization [employer] Address Unknown Phone Unavailable Care Team Providers Care Cold Storage Supervisor Name Role Phone KAREN GIVENS CP Unavailable Allergies No Known Allergies Problems Problem Type Condition Code Onset Dates [...] Instructions Start Date End Date Status Dosage Tramadol HCl NDC 0 50mg orally 4 times 1 tablet Results No Known Results Summary Purpose [employer] Submission
--- OUTSIDE RECORDS SUMMARY | 2019-12-16 20:41 | XMS REPORT ---
Author Patti Mancini Organization [employer] Address Unknown Phone Unavailable Care Team Providers Care Can Filling Machine Operator Name Role Phone KAREN GIVENS CP Unavailable Allergies No Known Allergies Problems Problem Type Condition Code Onset Dates Condition Statu s Problem Pain in joint, shoulder region 719.41 Active Problem Thrombosis 453.9 Active Problem Edema 782.3 Active Problem ADD (attention deficit disorder) F90.0 Active Problem Edema R60.9 Active Problem Joint pain M25.50 Active Problem Sinusitis J32.9 Active Problem Drug abuse counseling and surveillance of drug abuser Z71.51 Active Problem Insomnia G47.00 Active Problem Left wrist pain M25.532 Active Problem Pain in joint, lower leg 719.46 Act nayely Problem Depressive disorder, not elsewhere classified 311 Active Problem Bipolar I disorder, most recent episode (or current) manic, moderate 296.42 Active Problem Major depressive disorder, recurrent episode, moderate 296.32 Active Problem Attention deficit disorder o f childhood without mention of hyperactivity 314.00 Active Problem Carpal tunnel syndrome 354.0 Activ e Problem Social phobia 300.23 Active Problem Unspecified venous (peripheral) insufficiency 459.81 Active Medications Medication Code System Code Instructions Start Date End Date Status Dosage Tramadol HCl [facility] [address]-37 50 MG Orally twice a day Jun 10, 2015 1 tablet as needed Results No Known Results Summary Purpose [employer] Submission
--- OUTSIDE RECORDS SUMMARY | 2019-12-16 20:41 | XMS REPORT ---
Author Author Patti AGEE Organization [employer] Address Unknown Phone Unavailable Care Team Providers Care Manager Export Name Role Phone GEOVANNY AGEE CP Unavailable [...] Start Date End Date Status Dosage Adderall [facility] [address]-01 20 MG Orally In the AM & 12 and 1/2 tab at 4pm ADHD Feb 26, 2015 1 tablet Results No Known Results Summary Purpose [employer] Submission
--- OUTSIDE RECORDS SUMMARY | 2019-12-16 20:41 | XMS REPORT ---
Author Patti Mancini Organization [employer] Address Unknown Phone Unavailable Care Team Providers Care Oil Sprayer Name Role Phone KAREN GIVENS CP Unavailable [...] Unspecified venous (peripheral) insufficiency 459.81 Active Medications No Known Medications Results No Known Results Summary Purpose [employer] Submission
--- OUTSIDE RECORDS SUMMARY | 2019-12-16 20:41 | XMS REPORT ---
Author Author Patti GIVENS Organization [employer] Address Unknown Phone Unavailable Care Team Providers Care Woodenware Assembler Name Role Phone KAREN GIVENS CP Unavailable [...]
--- OUTSIDE RECORDS SUMMARY | 2019-12-16 20:41 | XMS REPORT ---
Author Patti Rachel Organization [employer] Address Unknown Phone Unavailable Care Team Providers Care Fpga Engineer Name Role Phone GEOVANNY AGEE CP Unavailable [...] Start Date End Date Status Dosage Adderall [facility] [address]-79 20 MG Dejuan to sign for Bernice TAKE ONE TABLET BY MOUTH IN THE MORNING, ONE TABLET AT NOON AND ONE-HALF TABLET AT 4:00PM Results No Known Results Summary Purpose [employer] Submission
--- OUTSIDE RECORDS SUMMARY | 2019-12-16 20:41 | XMS REPORT ---
Author Patti Rachel Organization [employer] Address Unknown Phone Unavailable Care Team Providers Care Board Operator Name Role Phone GEOVANNY AGEE CP Unavailable [...] Start Date End Date Status Dosage Adderall [facility] [address]-[address] Duque to sign for Bernice TAKE ONE TABLET BY MOUTH IN THE MORNING, ONE TABLET AT NOON AND ONE-HALF TABLET AT 4:00PM Results No Known Results Summary Purpose [employer] Submission
--- OUTSIDE RECORDS SUMMARY | 2019-12-16 20:41 | XMS REPORT ---
Author Patti Mancini Organization [employer] Address Unknown Phone Unavailable Care Team Providers Care Parenting Skills Instructor Name Role Phone KAREN GIVENS CP Unavailable Allergies, Adverse Reactions, Alerts Substance Reaction Event Type Geodon jaw twitching Drug Allergy Fluoxetine ineffective Drug Allergy Cymbalta paranoia Drug Allergy Abilify headache Drug Allergy Hydrocodone VIOLATION OF NARCOTIC CONTRACT * Non Drug Allergy Problems Problem Type Condition Code Onset Dates Condition Statu s Problem Bipolar I disorder, most recent episode (or current) manic, moderate 296.42 Active Problem Carpal tunnel syndrome 354.0 Activ e Problem Major depressive disorder, recurrent episode, moderate 296.32 Active Problem Sinusitis J32.9 Active Problem Drug abuse counseling and surveillance of drug abuser Z71.51 Active Problem Left wrist pain M25.532 Active Problem Pain in joint, shoulder region 719.41 Active Problem Unspecified venous (peripheral) insufficiency 459.81 Active Problem Thrombosis 453.9 Active Problem Edema 782.3 Active Assessment Drug abuse counseling and surveillance of drug abuser Z71.51 Active Problem Pain in joint, lower leg 719.46 Act nayely Problem Depressive disorder, not elsewhere classified 311 Active Assessment Sinusitis J32.9 Active Problem Attention deficit disorder o f childhood without mention of hyperactivity 314.00 Active Assessment Left wrist pain M25.532 Active Problem Social phobia 300.23 Active Medications Medication Code System Code Instructions Start Date End Date Status Dosage Amoxicillin [facility] [address]-23 500 MG Orally 3 times a day May 29, 2015 Jun 08, 2015 1 capsules one time Multivitamin [facility] [address] orally once a day Sep 11, 2014 1 [address] [facility] [address]-94 20 MG Orally In the AM & 12 and 1/2 tab at 4pm ADHD Dr Duque to sign for Bernice Feb 26, 2015 1 [address] Lasix [facility] [address]-12 20 MG Orally Once a day February 07, 2015 [address] [facility] [address]-95 7.5 MG Orally Once a day as needed for pain February 07, 2015 1 tablet Loxapine Succinate [facility] [address]-60 10 MG Orally Once a d ay at bedtime October 09, 2014 1 capsule Neurontin [facility] [address]-28 400 MG 4 times a day Mar 13, 2014 1 Capsule by Oral route 4 times per day PRN back pain Tramadol HCl NDC 0 50mg orally 4 times 1 tablet PredniSONE [facility] [address]-08 10 MG Orally Twice a day May 29Jun 03, 2015 1 tablet with food or milk Potassium Chloride ER [facility] [address]-31 10 MEQ Ora lly Once a day while taking lasix February 07, 2015 1 tablet Flexeril NDC 0 10 mg 3 times a day Mar 27, 2014 1 tablet by Oral route 3 times per day PRN Procedures Procedure Coding System Code Date Office Visit, Est Pt., Level 4 CPT-4 99263 N 2014 X-RAY EXAM OF WRIST CPT-4 82612 May 29, 2015 Vital Signs Date/Time: May 29, 2015 Temperature 98.1 F Weight 206.6 lbs Height 61 in BMI 39.03 Index Blood Pressure Diastolic 80 mmHg Blood Pressure Systolic 122 mmHg Cardiac Monitoring Heart Rate 80 bpm Results No Known Results Summary Purpose [employer] Submission
--- OUTSIDE RECORDS SUMMARY | 2019-12-16 20:41 | XMS REPORT ---
Author Author Patti AGEE Organization [employer] Address Unknown Phone Unavailable Care Team Providers Care Attenuator Name Role Phone GEOVANNY AGEE CP Unavailable [...] Start Date End Date Status Dosage Adderall [facility] [address]-33 20 MG Orally In the AM & 12 and 1/2 tab at 4pm ADHD DR. Duque to sign for Bernice Feb 26, 2015 1 tablet Results No Known Results Summary Purpose [employer] Submission
--- OUTSIDE RECORDS SUMMARY | 2019-12-16 20:41 | XMS REPORT ---
Author Patti Mancini Organization [employer] Address Unknown Phone Unavailable Care Team Providers Care Arts Education Teacher Name Role Phone KAREN GIVENS CP Unavailable [...] Date End Date Status Dosage Tramadol HCl [facility] [address]-99 50 MG Orally twice a day Jun 10, 2015 1 tablet as needed Results No Known Results Summary Purpose [employer] Submission
--- OUTSIDE RECORDS SUMMARY | 2019-12-16 20:41 | XMS REPORT ---
Author Author Patti GIVENS Organization [employer] Address Unknown Phone Unavailable Care Team Providers Care Open Hearth Worker Name Role Phone KAREN GIVENS CP Unavailable [...] Social anxiety disorder F40.10 Acti ve Assessment Joint pain M25.50 Active Problem Drug abuse counseling and surveillance of drug abuser Z71.51 Active Problem Sinusitis J32.9 Active Medications Medication Code System Code Instructions Start Date End Date Status Dosage Nabumetone [facility] [address]-38 750 MG Orally Twice a day JanuaryMar 14, 2016 1 tablet Results No Known Results Summary Purpose [employer] Submission
--- OUTSIDE RECORDS SUMMARY | 2019-12-16 20:41 | XMS REPORT ---
Author Author Patti AGEE Organization [employer] Address Unknown Phone Unavailable Care Team Providers Care Board Hammer Operator Name Role Phone GEOVANNY AGEE CP [...] Start Date End Date Status Dosage Adderall [facility] [address]-42 20 MG Orally In the AM & 12 and 1/2 tab at 4pm ADHD Dr Duque to sign for Bernice Feb 26, 2015 1 tablet Results No Known Results Summary Purpose [employer] Submission
--- OUTSIDE RECORDS SUMMARY | 2019-12-16 20:41 | XMS REPORT ---
Author Patti Mancini Organization [employer] Address Unknown Phone Unavailable Care Team Providers Care Product Development Technician Name Role Phone KAREN GIVENS CP Unavailable [...] Problem ADD (attention deficit disorder) F90.0 Active Assessment Edema R60.9 Active Problem Edema R60.9 Active Assessment Insomnia G47.00 Active Problem Joint pain M25.50 Active Problem Sinusitis J32.9 Active Problem Drug abuse counseling and surveillance of drug abuser Z71.51 Active Problem Insomnia G47.00 Active Problem Left wrist pain M25.532 Active Problem Pain in joint, lower leg 719.46 Act nayely Problem Depressive disorder, not elsewhere classified 311 Active Assessment ADD (attention deficit disorder) F90.0 Active Assessment Joint pain M25.50 Active Problem Bipolar I disorder, most recent [...] Start Date End Date Status Dosage Adderall [facility] [address]-00 20 MG Orally In the AM & 12 and 1/2 tab at 4pm ADHD Dejuan to sign for Bernice Feb 26, 2015 1 table t Tramadol HCl [facility] 2] [address]-27 50 MG Orally twice a day Jun 10, 2015 1 tablet as needed Lasix [facility] 2] [address]-18 20 MG Orally Once a day February 07, 2015 1 tablet Potassium Chloride ER [facility] 2] [address]-95 10 MEQ Ora lly Once a day while taking lasix February 07, 2015 1 tablet Multivitamin [facility] 2] [address] orally once a day Sep 11, 2014 1 tablet Vitamin D3 [facility] 2] [address] 4,000 unit Jul 06, 2014 1 capsule by Oral route 1 time per day Mobic [facility] 2] [address]-34 7.5 MG Orally Once a day as needed for pain February 07, 2015 1 tablet Neurontin [facility] 2[facility] [address]-67 400 MG 4 times a day Mar 13, 2014 1 Capsule by Oral route 4 times per day PRN back pain Flexeril NDC 0 10 mg 3 times a day Mar 27, 2014 1 tablet by Oral route 3 times per day PRN Medical Compression Pantyhose [facility] 2] 17810-[address]19 15.20 February 07, 2015 15-20 Compression as directed Loxapine Succinate [facility]NOTE 2] [address]-89 10 MG Orally Once a d ay at bedtime October 09, 2014 1 capsule Procedures Procedure Coding System Code Date Office Visit, Est Pt., Level 4 CPT-4 76920 N 2014 DEPO MEDROL 40 MG/ML CPT-4 J1030 Jun 24 5 X-RAY EXAM OF SHOULDER CPT-4 48686 Jun 24, 015 DEXAMETHASONE 20MG/5 ML (PER 1 MG) CPT-4 J1100 Jun 24, 2015 THER/PROPH/DIAG INJ, SC/IM CPT-4 52722 May 282014 Vital Signs Date/Time: Jun 24, 2015 Temperature 97.8 F Weight 202.6 lbs Height 61 in BMI 38.28 Index Blood Pressure Diastolic 86 mmHg Blood Pressure Systolic 132 mmHg Cardiac Monitoring Heart Rate 80 bpm Results Name Result Date Reference Range Unit Abnormali ty Flag Xray : Shoulder, Right 2 view (IN HOUSE) Summary Purpose eClinicalWorks Submission
--- OUTSIDE RECORDS SUMMARY | 2019-12-16 20:41 | XMS REPORT ---
Author Author Patti AGEE Organization [employer] Address Unknown Phone Unavailable Care Team Providers Care Receiver Stocker Name Role Phone GEOVANNY AGEE CP Unavailable [...] Start Date End Date Status Dosage Adderall [facility] [address]-46 20 MG Orally In the AM & 12 and 1/2 tab at 4pm ADHD Carla to sign for Bernice Feb 26, 2015 1 tab let Results No Known Results Summary Purpose [employer] Submission
--- OUTSIDE RECORDS SUMMARY | 2019-12-16 20:41 | XMS REPORT ---
Author Patti Rachel Organization [employer] Address Unknown Phone Unavailable Care Team Providers Care Head Of Mobile Name Role Phone GEOVANNY AGEE CP Unavailable [...] 453.9 Active Problem Edema 782.3 Active Problem Pain in joint, lower leg 719.46 Act nayely Problem Depressive disorder, not elsewhere classified 311 Active Problem Attention deficit disorder o f childhood without mention of hyperactivity 314.00 Active Problem Social phobia 300.23 Active Medications Medication Code System Code Instructions Start Date End Date Status Dosage Adderall [facility] [address]-66 20 MG Orally In the AM & 12 and 1/2 tab at 4pm ADHD Dr Duque to sign for Bernice Feb 26, 2015 1 tablet Results No Known Results Summary Purpose [employer] Submission
--- OUTSIDE RECORDS SUMMARY | 2019-12-16 20:41 | XMS REPORT ---
Author Author Patti AGEE [facility] [employer] Address Unknown Phone Unavailable Care Team Providers Care Gamma Operator Name Role Phone GEOVANNY AGEE CP Unavailable Allergies, Adverse Reactions, Alerts Substance [...] Carpal tunnel syndrome 354.0 Activ e Assessment Attention deficit disorder o f childhood without mention of hyperactivity 314.00 Active Assessment Social phobia 300.23 Active Assessment Manic bipolar I disorder in partial remission 296.45 Active Problem Pain in joint, lower leg 719.46 Act nayely Medications Medication Code System Code Instructions Start Date End Date Status Dosage tramadol NDC 0 50 mg 4 times a day May 17, 2014 Apr 12, 2015 take 1 tablet by Oral route 4 times per day as needed PRN pain Neurontin [facility] [address]-21 400 MG 4 times a day Mar 13, 2014 1 Capsule by Oral route 4 times per day PRN back pain Hydrochlorothiazide [facility] 28544063028 50 MG TAKE ONE TABLET BY MOUTH ONCE DAILY Mobic [facility] [address]-06 7.5 MG Orally Once a day as needed for pain February 07, 2015 1 tablet Flexeril NDC 0 10 mg 3 times a day Mar 27, 2014 1 tablet by Oral route 3 times per day PRN Loxapine Succinate [facility] [address]-97 10 MG Orally Once a d ay at bedtime October 09, 2014 1 capsule Adderall [facility] [address]-04 20 MG Orally In the AM & 12 and 1/2 tab at 4pm ADHD Feb 26, 2015 1 tablet Multivitamin [facility] [address] orally once a day Sep 11, 2014 1 tablet Potassium Chloride ER [facility] [address]-81 10 MEQ Ora lly Once a day while taking lasix February 07, 2015 [address] [facility] [address]-67 20 MG Orally Once a day February 07, 2015 1 tablet Medical Compression Pantyhose [facility] [address] 15.20 February 07, 2015 15-20 Compression as directed Procedures Procedure Coding System Code Date Office Visit, Est Pt., Level 3 CPT-4 37212 S ept 2014 Vital Signs Date/Time: Apr 04, 2015 Temperature 98.6 F Weight 207.5 lbs Height 61 in BMI 39.20 Index Blood Pressure Diastolic 80 mmHg Blood Pressure Systolic 130 mmHg Cardiac Monitoring Heart Rate 76 bpm Results No Known Results Summary Purpose [employer] Submission
--- OUTSIDE RECORDS SUMMARY | 2019-12-16 20:41 | XMS REPORT ---
Author Author Patti AGEE Organization [employer] Address Unknown Phone Unavailable Care Team Providers Care Ready Mix Truck Driver Name Role Phone GEOVANNY AGEE CP Unavailable [...] Date End Date Status Dosage Adderall [facility] [address]-29 20 MG Orally. Gr ant to sign for Bernice In the AM & 12 and 1/2 tab at 4pm ADHD Feb 26, 2015 1 tab let Results No Known Results Summary Purpose [employer] Submission
--- OUTSIDE RECORDS SUMMARY | 2019-12-16 20:41 | XMS REPORT ---
Author Author Patti AGEE Organization [employer] Address Unknown Phone Unavailable Care Team Providers Care Tandem Mill Roller Name Role Phone GEOVANNY AGEE CP Unavailable [...] Date End Date Status Dosage Adderall [facility] [address]-36 20 MG Orally In the AM & 12 and 1/2 tab at 4pm ADHD Dr Duque to sign for Bernice Feb 26, 2015 1 tablet Results No Known Results Summary Purpose [employer] Submission
--- OUTSIDE RECORDS SUMMARY | 2019-12-16 20:41 | XMS REPORT ---
Author Patti Mancini Organization [employer] Address Unknown Phone Unavailable Care Team Providers Care Guest Relation Officer Name Role Phone KAREN GIVENS CP Unavailable [...] Date End Date Status Dosage Tramadol HCl [facility] [address]-72 50 MG Orally twice a day Jun 10, 2015 1 tablet as needed Results No Known Results Summary Purpose [employer] Submission
--- OUTSIDE RECORDS SUMMARY | 2019-12-16 20:41 | XMS REPORT ---
Author Author Patti GIVENS Organization [employer] Address Unknown Phone Unavailable Care Team Providers Care Shorthand Reporter Name Role Phone KAREN GIVENS CP Unavailable [...]
--- OUTSIDE RECORDS SUMMARY | 2019-12-16 20:41 | XMS REPORT ---
Author Patti Rachel Organization [employer] Address Unknown Phone Unavailable Care Team Providers Care Cable Maintainer Name Role Phone GEOVANNY AGEE CP Unavailable [...] Date End Date Status Dosage Adderall [facility] [address]-16 20 MG Orally In the AM & 12 and 1/2 tab at 4pm ADHD Dejuan to sign for Bernice Feb 26, 2015 1 table t Results No Known Results Summary Purpose [employer] Submission
--- OUTSIDE RECORDS SUMMARY | 2019-12-16 20:42 | XMS REPORT | Continuity of Care Document ---
Demographics Preferred Language Unknown Marital Status Unknown Anabaptist Affiliation Unknown Race Unknown Ethnic Group Unknown Author Organization Unknown Address Unknown Phone Unavailable Allergies Active Description Code Type Severity Reaction Onset Reported/Identified Relationship to Patient Clinical Status Yes No Known Drug Allergies [id number] N/A N/A Yes Cymbalta Drug Allergy N/A N/A 05/07/2009 Yes Cymbalta Drug Allergy 05/07/2009 Yes Abilify Drug Allergy N/A N/A 12/30/2009 Yes Abilify Drug Allergy 12/30/2009 Yes fluoxetine Drug Allergy N/A N/A 01/20/2010 Yes fluoxetine Drug Allergy 01/20/2010 Yes Geodon Drug Allergy N/A N/A 02/05/2011 Yes Geodon Drug Allergy 02/05/2011 Yes duloxetine HCl [id number] Dr ug Allergy Unknown N/A 03/04/2013 Yes hydrocodone Drug Allergy N/A N/A 06/04/2014 Medications There is no data. Problems Date Dx Coded Attending Type Code Diagnosis Diagnosed By 06/12/2008 DARLING HERNANDEZ MD 790.2 9 Oral Gtt 2-hour Value Between 140 - 200 06/12/2008 DARLING HERNANDEZ MD V58.6 9 Medication High Risk 06/12/2008 DARLING HERNANDEZ MD 790.2 9 Oral Gtt 2-hour Value Between 140 - 200 06/12/2008 DARLING HERNANDEZ MD V58.6 9 Medication High Risk 06/12/2008 790.29 Ora l Gtt 2-hour Value Between 140 - 200 06/12/2008 V58.69 Med ication High Risk 06/12/2008 790.29 Ora l Gtt 2-hour Value Between 140 - 200 06/12/2008 V58.69 Med ication High Risk 06/12/2008 DARLING HERNANDEZ MD 790.2 9 Oral Gtt 2-hour Value Between 140 - 200 06/12/2008 DARLING HERNANDEZ MD V58.6 9 Medication High Risk 06/12/2008 PALOMO SANTOS DO 790.29 Oral Gtt 2-hour Value Between 140 - 200 06/12/2008 PALOMO SANTOS DO V58.69 Medication High Risk 06/12/2008 MAHESH FLETCHERNeel KIMBERLEE TRAN 790.29 Oral Gtt 2-hour Value Between 140 - 200 06/12/2008 ARAGON SHOTBLASTER, KIMBERLEE TRAN V58.69 Medication High Risk 06/12/2008 DARLING HERNANDEZ MD 790.2 9 Oral Gtt 2-hour Value Between 140 - 200 06/12/2008 DARLING HERNANDEZ MD V58.6 9 Medication High Risk 06/12/2008 MAHESH BRYANT KIMBERLEE TRAN 790.29 Oral Gtt 2-hour Value Between 140 - 200 06/12/2008 MAHESH BRYANT, KIMBERLEE TRAN V58.69 Medication High Risk 06/12/2008 MAHESH BRYANT, KIMBERLEE TRAN 790.29 Oral Gtt 2-hour Value Between 140 - 200 06/12/2008 MAHESH BRYANT KIMBERLEE TRAN V58.69 Medication High Risk 06/12/2008 SANTOS DO PALOMO K 790.29 Oral Gtt 2-hour Value Between 140 - 200 06/12/2008 SANTOS DO PALOMO K V58.69 Medication High Risk 06/12/2008 SANTOS DO PALOMO K 790.29 Oral Gtt 2-hour Value Between 140 - 200 06/12/2008 SANTOS DO PALOMO K V58.69 Medication High Risk 06/12/2008 DARLING HERNANDEZ MD 790.2 9 Oral Gtt 2-hour Value Between 140 - 200 06/12/2008 DARLING HERNANDEZ MD8.6 9 Medication High Risk 06/12/2008 SANTOS DO PALOMO K 790.29 Oral Gtt 2-hour Value Between 140 - 200 06/12/2008 DANIELLE WHITING PALOMO K V58.69 Medication High Risk 06/12/2008 DARLING HERNANDEZ MD 790.2 9 Oral Gtt 2-hour Value Between 140 - 200 06/12/2008 DARLING HERNANDEZ MD8.6 9 Medication High Risk 06/12/2008 DARLING HERNANDEZ MD 790.2 9 Oral Gtt 2-hour Value Between 140 - 200 06/12/2008 DARLING HERNNADEZ MD8.6 9 Medication High Risk 06/12/2008 SANTOS DO PALOMO K 790.29 Oral Gtt 2-hour Value Between 140 - 200 06/12/2008 DANIELLE WHITING PALOMO K V58.69 Medication High Risk 06/12/2008 DARLING HERNANDEZ MD 790.2 9 Oral Gtt 2-hour Value Between 140 - 200 06/12/2008 DARLING HERNANDEZ MD V58.6 9 Medication High Risk 06/12/2008 GEOVANNY AGEE APRN 790.29 Oral Gtt 2-hour Value Between 140 - 200 06/12/2008 GEOVANNY AGEE APRN V58.69 Medication High Risk 05/07/2009 DARLING HERNANDEZ MD 296.9 0 EPISODIC MOOD DISORDERS 05/07/2009 DARLING HERNANDEZ MD 300.0 0 anxiety 05/07/2009 DARLING HERNANDEZ MD 296.9 0 EPISODIC MOOD DISORDERS 05/07/2009 DARLING HERNANDEZ MD 300.0 0 anxiety 05/07/2009 296.90 EPI SODIC MOOD DISORDERS 05/07/2009 300.00 anxiety 05/07/2009 296.90 EPI SODIC MOOD DISORDERS 05/07/2009 300.00 anxiety 05/07/2009 DARLING HERNANDEZ MD 296.9 0 EPISODIC MOOD DISORDERS 05/07/2009 DARLING HERNANDEZ MD 300.0 0 anxiety 05/07/2009 SANTOS DO, PALOMO K 296.90 EPISODIC MOOD DISORDERS 05/07/2009 SANTOS DO, PALOMO K 300.00 anxiety 05/07/2009 ARAGON KIMBERLEE BRYANT MARC 296.90 EPISODIC MOOD DISORDERS 05/07/2009 ARAGON KIMBERLEE BRYANT MARC 300.00 anxiety 05/07/2009 DARLING HERNANDEZ MD 296.9 0 EPISODIC MOOD DISORDERS 05/07/2009 DARLING HERNANDEZ MD 300.0 0 anxiety 05/07/2009 ARAGON KIMBERLEE BRYANT MARC 296.90 EPISODIC MOOD DISORDERS 05/07/2009 ARAGON ANNETTE, KIMBERLEE MARC 300.00 anxiety 05/07/2009 ARAGON SHOTBLASTER, KIMBERLEE MARC 296.90 EPISODIC MOOD DISORDERS 05/07/2009 ARAGON SHOTBLASTER, KIMBERLEE MARC 300.00 anxiety 05/07/2009 SANTOS DO, PALOMO K 296.90 EPISODIC MOOD DISORDERS 05/07/2009 SANTOS DO, PALOMO K 300.00 anxiety 05/07/2009 SANTOS DO, PALOMO K 296.90 EPISODIC MOOD DISORDERS 05/07/2009 SANTOS DO, PALOMO K 300.00 anxiety 05/07/2009 DARLING HERNANDEZ MD 296.9 0 EPISODIC MOOD DISORDERS 05/07/2009 DARLING HERNANDEZ MD 300.0 0 anxiety 05/07/2009 DANIELLE WHITING, PALOMO K 296.90 EPISODIC MOOD DISORDERS 05/07/2009 SANTOS , PALOMO K 300.00 anxiety 05/07/2009 DARLING HERNANDEZ MD 296.9 0 EPISODIC MOOD DISORDERS 05/07/2009 DARLING HERNANDEZ MD 300.0 0 anxiety 05/07/2009 DARLING HERNANDEZ MD 296.9 0 EPISODIC MOOD DISORDERS 05/07/2009 DARLING HERNANDEZ MD 300.0 0 anxiety 05/07/2009 DANIELLE WHITING PALOMO K 296.90 EPISODIC MOOD DISORDERS 05/07/2009 DANIELLE WHITING PALOMO K 300.00 anxiety 05/07/2009 DARLING HERNANDEZ MD 296.9 0 EPISODIC MOOD DISORDERS 05/07/2009 DARLING HERNANDEZ MD 300.0 0 ANXIETY 05/07/2009 GEOVANNY AGEE APRN J 296.90 EPISODIC MOOD DISORDERS 05/07/2009 ANUEL BRYANT GEOVANNY J 300.00 ANXIETY 06/03/2009 DARLING HERNANDEZ MD 733.6 Costochondritis (tietze's Syndrome) 06/03/2009 DARLING HERNANDEZ MD 733.6 Costochondritis (tietze's Syndrome) 06/03/2009 733.6 Cost ochondritis (tietze's Syndrome) 06/03/2009 733.6 Cost ochondritis (tietze's Syndrome) 06/03/2009 DARLING HERNANDEZ MD 733.6 Costochondritis (tietze's Syndrome) 06/03/2009 PALOMO SANTOS DO 733.6 Costochondritis (tietze's Syndrome) 06/03/2009 KIMBERLEE ARAGON APRN 733.6 Costochondritis (tietze's Syndrome) 06/03/2009 DARLING HERNANDEZ MD 733.6 Costochondritis (tietze's Syndrome) 06/03/2009 KIMBERLEE ARAGON APRN 733.6 Costochondritis (tietze's Syndrome) 06/03/2009 KIMBERLEE ARAGON APRN 733.6 Costochondritis (tietze's Syndrome) 06/03/2009 PAOLMO SANTOS DO 733.6 Costochondritis (tietze's Syndrome) 06/03/2009 PALOMO SANTOS DO 733.6 Costochondritis (tietze's Syndrome) 06/03/2009 DARLING HERNANDEZ MD 733.6 Costochondritis (tietze's Syndrome) 06/03/2009 PALOMO SANTOS DO 733.6 Costochondritis (tietze's Syndrome) 06/03/2009 DARLING HERNANDEZ MD 733.6 Costochondritis (tietze's Syndrome) 06/03/2009 DARLING HERNANDEZ MD 733.6 Costochondritis (tietze's Syndrome) 06/03/2009 PALOMO SANTOS DO 733.6 Costochondritis (tietze's Syndrome) 06/03/2009 DARLING HERNANDEZ MD 733.6 Costochondritis (tietze's Syndrome) 06/03/2009 GEOVANNY AGEE APRN 733.6 Costochondritis (tietze's Syndrome) 06/11/2009 DARLING HERNANDEZ MD 780.7 9 Malaise And Fatigue 06/11/2009 DARLING HERNANDEZ MD 787.9 1 Diarrhea 06/11/2009 DARLING HERNANDEZ MD 780.7 9 Malaise And Fatigue 06/11/2009 DARLING HERNANDEZ MD 787.9 1 Diarrhea 06/11/2009 780.79 Mal aise And Fatigue 06/11/2009 787.91 Cari rrhea 06/11/2009 780.79 Mal aise And Fatigue 06/11/2009 787.91 Cari rrhea 06/11/2009 DARLING HERNANDEZ MD 780.7 9 Malaise And Fatigue 06/11/2009 DARLING HERNANDEZ MD 787.9 1 Diarrhea 06/11/2009 PALOMO SANTOS DO 780.79 Malaise And Fatigue 06/11/2009 PALOMO SANTOS DO 787.91 Diarrhea 06/11/2009 KIMBERLEE ARAGON APRN 780.79 Malaise And Fatigue 06/11/2009 KIMBERLEE ARAGON APRN 787.91 Diarrhea 06/11/2009 DARLING HERNANDEZ MD 780.7 9 Malaise And Fatigue 06/11/2009 DARLING HERNANDEZ MD 787.9 1 Diarrhea 06/11/2009 KIMBERLEE ARAGON APRN 780.79 Malaise And Fatigue 06/11/2009 MAHESH SHOTBLASTER, KIMBERLEE TRAN 787.91 Diarrhea 06/11/2009 MAHESH SHOTBLASTER, KIMBERLEE TRAN 780.79 Malaise And Fatigue 06/11/2009 MAHESH FLETCHERN, KIMBERLEE TRAN 787.91 Diarrhea 06/11/2009 SANTOS DO, PALOMO K 780.79 Malaise And Fatigue 06/11/2009 SANTOS DO, PALOMO K 787.91 Diarrhea 06/11/2009 SANTOS DO, PALOMO K 780.79 Malaise And Fatigue 06/11/2009 SANTOS DO, PALOMO K 787.91 Diarrhea 06/11/2009 DARLING HERNANDEZ MD 780.7 9 Malaise And Fatigue 06/11/2009 DARLING HERNANDEZ MD 787.9 1 Diarrhea 06/11/2009 SANTOS DO, PALOMO K 780.79 Malaise And Fatigue 06/11/2009 SANTOS DO, PALOMO K 787.91 Diarrhea 06/11/2009 DARLING HERNANDEZ MD 780.7 9 Malaise And Fatigue 06/11/2009 DARLING HERNANDEZ MD 787.9 1 Diarrhea 06/11/2009 DARLING HERNANDEZ MD 780.7 9 Malaise And Fatigue 06/11/2009 DARLING HERNANDEZ MD 787.9 1 Diarrhea 06/11/2009 SANTOS DO, PALOMO K 780.79 Malaise And Fatigue 06/11/2009 SANTOS DO, PALOMO K 787.91 Diarrhea 06/11/2009 DARLING HERNANDEZ MD 780.7 9 Malaise And Fatigue 06/11/2009 DARLING HERNANDEZ MD 787.9 1 Diarrhea 06/11/2009 ANUEL BRYANT GEOVANNY J 780.79 Malaise And Fatigue 06/11/2009 ANUEL ANNETTE GEOVANNY J 787.91 Diarrhea 07/09/2009 DARLING HERNANDEZ MD 724.5 BACKACHE UNSPECIFIED 07/09/2009 DARLING HERNANDEZ MD 724.5 Backache Unspecified 07/09/2009 724.5 Back ache Unspecified 07/09/2009 724.5 Back ache Unspecified 07/09/2009 DARLING HERNANDEZ MD 724.5 Backache Unspecified 07/09/2009 SANTOS JEANNE WHITINGA K 724.5 Backache Unspecified 07/09/2009 MAHESH BRYANT, KIMBERLEE TRAN 724.5 Backache Unspecified 07/09/2009 DARLING HERNANDEZ MD 724.5 Backache Unspecified 07/09/2009 MAHESH BRYANT, KIMBERLEE STANLEYH 724.5 Backache Unspecified 07/09/2009 ARAGON SHOTBLASTER, KIMBERLEE TRAN 724.5 Backache Unspecified 07/09/2009 SANTOS DO, PALOMO K 724.5 Backache Unspecified 07/09/2009 SANTOS DO, PALOMO K 724.5 Backache Unspecified 07/09/2009 DARLING HERNANDEZ MD 724.5 Backache Unspecified 07/09/2009 SANTOS DO, PALOMO K 724.5 Backache Unspecified 07/09/2009 DARLING HERNANDEZ MD 724.5 Backache Unspecified 07/09/2009 DARLING HERNANDEZ MD 724.5 Backache Unspecified 07/09/2009 SANTOS DO, PALOMO K 724.5 Backache Unspecified 07/09/2009 DARLING HERNANDEZ MD 724.5 Backache Unspecified 07/09/2009 GEOVANNY AGEE APRN 724.5 Backache Unspecified 07/17/2009 DARLING HERNANDEZ MD 995.3 Allergy Unspecified Not Elsewhere Classified 07/17/2009 DARLING HERNANDEZ MD 995.3 Allergy Unspecified Not Elsewhere Classified 07/17/2009 995.3 Drew rgy Unspecified Not Elsewhere Classified 07/17/2009 995.3 Drew rgy Unspecified Not Elsewhere Classified 07/17/2009 DARLING HERNANDEZ MD 995.3 Allergy Unspecified Not Elsewhere Classified 07/17/2009 SANTOS DO, PALOMO K 995.3 Allergy Unspecified Not Elsewhere Classified 07/17/2009 MAHESH BRYANT KIMBERLEE STANLEYH 995.3 Allergy Unspecified Not Elsewhere Classified 07/17/2009 DARLING HERNANDEZ MD 995.3 Allergy Unspecified Not Elsewhere Classified 07/17/2009 MAHESH BRYANT KIMBERLEE MARC 995.3 Allergy Unspecified Not Elsewhere Classified 07/17/2009 MAHESH BRYANT KIMBERLEE MARC 995.3 Allergy Unspecified Not Elsewhere Classified 07/17/2009 SANTOS DO, PALOMO K 995.3 Allergy Unspecified Not Elsewhere Classified 07/17/2009 SANTOS DO, PALOMO K 995.3 Allergy Unspecified Not Elsewhere Classified 07/17/2009 DARLING HERNANDEZ MD 995.3 Allergy Unspecified Not Elsewhere Classified 07/17/2009 SANTOS DO, PALOMO K 995.3 Allergy Unspecified Not Elsewhere Classified 07/17/2009 DARLING HERNANDEZ MD 995.3 Allergy Unspecified Not Elsewhere Classified 07/17/2009 DARLING HERNANDEZ MD 995.3 Allergy Unspecified Not Elsewhere Classified 07/17/2009 SANTOS DO PALOMO K 995.3 Allergy Unspecified Not Elsewhere Classified 07/17/2009 DARLING HERNANDEZ MD 995.3 Allergy Unspecified Not Elsewhere Classified 07/17/2009 GEOVANNY AGEE APRN 995.3 Allergy Unspecified Not Elsewhere Classified 08/13/2009 DARLING HERNANDEZ MD 71Adela.4 1 Pain In Joint, Shoulder Region 08/13/2009 DARLING HERNANDEZ MD.4 1 Pain In Joint, Shoulder Region 08/13/2009 719.41 Ron n In Joint, Shoulder Region 08/13/2009 719.41 Ron n In Joint, Shoulder Region 08/13/2009 DARLING HERNANDEZ MD 71Adela.4 1 Pain In Joint, Shoulder Region 08/13/2009 SANTOS DO PALOMO K 719.41 Pain In Joint, Shoulder Region 08/13/2009 KIMBERLEE ARAGON APRN 719.41 Pain In Joint, Shoulder Region 08/13/2009 DARLING HERNANDEZ MD 719.4 1 Pain In Joint, Shoulder Region 08/13/2009 KIMBERLEE ARAGON APRN 719.41 Pain In Joint, Shoulder Region 08/13/2009 KIMBERLEE ARAGON APRN 719.41 Pain In Joint, Shoulder Region 08/13/2009 SANTOS DO PALOMO K 719.41 Pain In Joint, Shoulder Region 08/13/2009 SANTOS DO, PALOMO K 719.41 Pain In Joint, Shoulder Region 08/13/2009 DARLING HERNANDEZ MD.4 1 Pain In Joint, Shoulder Region 08/13/2009 SANTOS DO, PALOMO K 719.41 Pain In Joint, Shoulder Region 08/13/2009 DARLING HERNANDEZ MD.4 1 Pain In Joint, Shoulder Region 08/13/2009 DARLING HERNANDEZ MD.4 1 Pain In Joint, Shoulder Region 08/13/2009 PALOMO SANTOS DO 719.41 Pain In Joint, Shoulder Region 08/13/2009 DARLING EHRNANDEZ MD.4 1 Pain In Joint, Shoulder Region 08/13/2009 GEOVANNY AGEE APRN 719.41 Pain In Joint, Shoulder Region 12/30/2009 DARLING HERNANDEZ MD 719.4 6 Pain In Joint, Lower Leg 12/30/2009 DARLING HERNANDEZ MD9.4 6 Pain In Joint, Lower Leg 12/30/2009 719.46 Ron n In Joint, Lower Leg 12/30/2009 719.46 Ron n In Joint, Lower Leg 12/30/2009 DARLING HERNANDEZ MD9.4 6 Pain In Joint, Lower Leg 12/30/2009 PALOMO SANTOS DO 719.46 Pain In Joint, Lower Leg 12/30/2009 KIMBERLEE ARAGON APRN 719.46 Pain In Joint, Lower Leg 12/30/2009 DARLING HERNANDEZ MD 719.4 6 Pain In Joint, Lower Leg 12/30/2009 KIMBERLEE ARAGON APRN 719.46 Pain In Joint, Lower Leg 12/30/2009 KIMBERLEE ARAGON APRN 719.46 Pain In Joint, Lower Leg 12/30/2009 PALOMO SANTOS DO 719.46 Pain In Joint, Lower Leg 12/30/2009 PALOMO SANTOS DO 719.46 Pain In Joint, Lower Leg 12/30/2009 DARLING HERNANDEZ MD 719.4 6 Pain In Joint, Lower Leg 12/30/2009 PALOMO SANTOS DO 719.46 Pain In Joint, Lower Leg 12/30/2009 DARLING HERNANDEZ MD9.4 6 Pain In Joint, Lower Leg 12/30/2009 DARLING HERNANDEZ MD9.4 6 Pain In Joint, Lower Leg 12/30/2009 PALOMO SANTOS DO 719.46 Pain In Joint, Lower Leg 12/30/2009 DARLING HERNANDEZ MD.4 6 Pain In Joint, Lower Leg 12/30/2009 GEOVANNY AGEE APRN 719.46 Pain In Joint, Lower Leg 01/20/2010 DARLING HERNANDEZ MD 715.1 6 OSTEOARTHROSIS, LOCALIZED, PRIMARY, LOWER LEG 01/20/2010 DARLING HERNANDEZ MD 71Matthew.2 6 OSTEOARTHROSIS, LOCALIZED, SECONDARY, LOWER LEG 01/20/2010 DARLING HERNANDEZ MD 715.1 6 Osteoarthrosis, Localized, Primary, Lower Leg 01/20/2010 DARLING HERNANDEZ MD 715.2 6 OSTEOARTHROSIS, LOCALIZED, SECONDARY, LOWER LEG 01/20/2010 715.16 Ost eoarthrosis, Localized, Primary, Lower Leg 01/20/2010 715.26 OST EOARTHROSIS, LOCALIZED, SECONDARY, LOWER LEG 01/20/2010 715.16 Ost eoarthrosis, Localized, Primary, Lower Leg 01/20/2010 715.26 OST EOARTHROSIS, LOCALIZED, SECONDARY, LOWER LEG 01/20/2010 DARLING HERNANDEZ MD5.1 6 Osteoarthrosis, Localized, Primary, Lower Leg 01/20/2010 DARLING HERNANDEZ MD5.2 6 OSTEOARTHROSIS, LOCALIZED, SECONDARY, LOWER LEG 01/20/2010 PALOMO SANTOS DO 715.16 Osteoarthrosis, Localized, Primary, Lower Leg 01/20/2010 PALOMO SANTOS DO 715.26 OSTEOARTHROSIS, LOCALIZED, SECONDARY, LOWER LEG 01/20/2010 KIMBERLEE ARAGON APRN 715.16 Osteoarthrosis, Localized, Primary, Lower Leg 01/20/2010 KIMBERLEE ARAGON APRN 715.26 OSTEOARTHROSIS, LOCALIZED, SECONDARY, LOWER LEG 01/20/2010 DARLING HERNANDEZ MD 715.1 6 Osteoarthrosis, Localized, Primary, Lower Leg 01/20/2010 DARLING HERNANDEZ MD.2 6 OSTEOARTHROSIS, LOCALIZED, SECONDARY, LOWER LEG 01/20/2010 KIMBERLEE ARAGON APRN 715.16 Osteoarthrosis, Localized, Primary, Lower Leg 01/20/2010 KIMBERLEE ARAGON APRN 715.26 OSTEOARTHROSIS, LOCALIZED, SECONDARY, LOWER LEG 01/20/2010 KIMBERLEE ARAGON APRN 715.16 Osteoarthrosis, Localized, Primary, Lower Leg 01/20/2010 KIMBERLEE ARAGON APRN 715.26 OSTEOARTHROSIS, LOCALIZED, SECONDARY, LOWER LEG 01/20/2010 PALOMO SANTOS DO 715.16 Osteoarthrosis, Localized, Primary, Lower Leg 01/20/2010 PALOMO SANTOS DO K 715.26 OSTEOARTHROSIS, LOCALIZED, SECONDARY, LOWER LEG 01/20/2010 PALOMO SANTOS DO K 715.16 Osteoarthrosis, Localized, Primary, Lower Leg 01/20/2010 DANIELLE WHITING PALOMO K 715.26 OSTEOARTHROSIS, LOCALIZED, SECONDARY, LOWER LEG 01/20/2010 DARLING HERNANDEZ MD 715.1 6 Osteoarthrosis, Localized, Primary, Lower Leg 01/20/2010 DARLING HERNANDEZ MD 715.2 6 OSTEOARTHROSIS, LOCALIZED, SECONDARY, LOWER LEG 01/20/2010 PALOMO SANTOS DO K 715.16 Osteoarthrosis, Localized, Primary, Lower Leg 01/20/2010 PALOMO SANTOS DO K 715.26 OSTEOARTHROSIS, LOCALIZED, SECONDARY, LOWER LEG 01/20/2010 DARLING HERNANDEZ MD 715.1 6 Osteoarthrosis, Localized, Primary, Lower Leg 01/20/2010 DARLING HERNANDEZ MD 715.2 6 OSTEOARTHROSIS, LOCALIZED, SECONDARY, LOWER LEG 01/20/2010 DARLING HERNANDEZ MD 715.1 6 Osteoarthrosis, Localized, Primary, Lower Leg 01/20/2010 DARLING HERNANDEZ MD 715.2 6 OSTEOARTHROSIS, LOCALIZED, SECONDARY, LOWER LEG 01/20/2010 PALOMO SANTOS DO K 715.16 Osteoarthrosis, Localized, Primary, Lower Leg 01/20/2010 PALOMO SANTOS DO K 715.26 OSTEOARTHROSIS, LOCALIZED, SECONDARY, LOWER LEG 01/20/2010 DARLING HERNANDEZ MD 715.1 6 Osteoarthrosis, Localized, Primary, Lower Leg 01/20/2010 DARLING HERNANDEZ MD 715.2 6 OSTEOARTHROSIS, LOCALIZED, SECONDARY, LOWER LEG 01/20/2010 GEOVANNY AGEE APRN 715.16 Osteoarthrosis, Localized, Primary, Lower Leg 01/20/2010 GEOVANNY AGEE APRN 715.26 OSTEOARTHROSIS, LOCALIZED, SECONDARY, LOWER LEG 02/10/2010 DARLING HERNANDEZ MD V74.1 Screening Examination For Pulmonary Tuberculosis 02/10/2010 DARLING HERNANDEZ MD V74.1 Screening Examination For Pulmonary Tuberculosis 02/10/2010 V74.1 Scre ening Examination For Pulmonary Tuberculosis 02/10/2010 V74.1 Scre ening Examination For Pulmonary Tuberculosis 02/10/2010 DARLING HERNANDEZ MD V74.1 Screening Examination For Pulmonary Tuberculosis 02/10/2010 DANIELLE WHITING PALOMO K V74.1 Screening Examination For Pulmonary Tuberculosis 02/10/2010 KIMBERLEE ARAGON APRN V74.1 Screening Examination For Pulmonary Tuberculosis 02/10/2010 DARLING HERNANDEZ MD V74.1 Screening Examination For Pulmonary Tuberculosis 02/10/2010 KIMBERLEE ARAGON APRN V74.1 Screening Examination For Pulmonary Tuberculosis 02/10/2010 KIMBERLEE ARAGON APRN V74.1 Screening Examination For Pulmonary Tuberculosis 02/10/2010 SANTOS DO PALOMO K V74.1 Screening Examination For Pulmonary Tuberculosis 02/10/2010 SANTOS DO PALOMO K V74.1 Screening Examination For Pulmonary Tuberculosis 02/10/2010 DARLING HERNANDEZ MD V74.1 Screening Examination For Pulmonary Tuberculosis 02/10/2010 JEANNE SANTOS DOA K V74.1 Screening Examination For Pulmonary Tuberculosis 02/10/2010 DARLING HERNANDEZ MD V74.1 Screening Examination For Pulmonary Tuberculosis 02/10/2010 DARLING HERNANDEZ MD V74.1 Screening Examination For Pulmonary Tuberculosis 02/10/2010 JEANNE SANTOS DOA K V74.1 Screening Examination For Pulmonary Tuberculosis 02/10/2010 DARLING HERNANDEZ MD V74.1 Screening Examination For Pulmonary Tuberculosis 02/10/2010 GEOVANNY AGEE APRN V74.1 Screening Examination For Pulmonary Tuberculosis 02/12/2010 DARLING HERNANDEZ MD 466.0 Bronchitis, Acute 02/12/2010 DARLING HERNANDEZ MD 466.0 Bronchitis, Acute 02/12/2010 466.0 Bron chitis, Acute 02/12/2010 466.0 Bron chitis, Acute 02/12/2010 DARLING HERNANDEZ MD 466.0 Bronchitis, Acute 02/12/2010 DANIELLE WHITING PALOMO K 466.0 Bronchitis, Acute 02/12/2010 MAHESH BRYANT, KIMBERLEE TRAN 466.0 Bronchitis, Acute 02/12/2010 DARLING HERNANDEZ MD 466.0 Bronchitis, Acute 02/12/2010 MAHESH BRYANT, KIMBERLEE TRAN 466.0 Bronchitis, Acute 02/12/2010 MAHESH BRYANT, KIMBERLEE TRAN 466.0 Bronchitis, Acute 02/12/2010 SANTOS DO, PALOMO K 466.0 Bronchitis, Acute 02/12/2010 SANTOS , PALOMO K 466.0 Bronchitis, Acute 02/12/2010 DARLING HERNANDEZ MD 466.0 Bronchitis, Acute 02/12/2010 DANIELLE WHITING, PALOMO K 466.0 Bronchitis, Acute 02/12/2010 DARLING HERNANDEZ MD 466.0 Bronchitis, Acute 02/12/2010 DARLING HERNANDEZ MD 466.0 Bronchitis, Acute 02/12/2010 DANIELLE WHITING, PALOMO K 466.0 Bronchitis, Acute 02/12/2010 DARLING HERNANDEZ MD 466.0 Bronchitis, Acute 02/12/2010 GEOVANNY AGEE APRN 466.0 Bronchitis, Acute 04/01/2010 DARLING HERNANDEZ MD 278.0 0 Obesity, Unspecified 04/01/2010 DARLING HERNANDEZ MD 278.0 0 Obesity, Unspecified 04/01/2010 278.00 Obe sity, Unspecified 04/01/2010 278.00 Obe sity, Unspecified 04/01/2010 DARLING HERNANDEZ MD 278.0 0 Obesity, Unspecified 04/01/2010 JEANNE SANTOS DOA K 278.00 Obesity, Unspecified 04/01/2010 KIMBERLEE ARAGON APRN 278.00 Obesity, Unspecified 04/01/2010 DARLING HERNANDEZ MD 278.0 0 Obesity, Unspecified 04/01/2010 KIMBERLEE ARAGON APRN 278.00 Obesity, Unspecified 04/01/2010 KIMBERLEE ARAGON APRN 278.00 Obesity, Unspecified 04/01/2010 DANIELLE WHITING PALOMO K 278.00 Obesity, Unspecified 04/01/2010 DANIELLE WHITING PALOMO K 278.00 Obesity, Unspecified 04/01/2010 DARLING HERNANDEZ MD 278.0 0 Obesity, Unspecified 04/01/2010 DANIELLE WHITING PALOMO K 278.00 Obesity, Unspecified 04/01/2010 DARLING HERNANDEZ MD 278.0 0 Obesity, Unspecified 04/01/2010 DARLING HERNANDEZ MD 278.0 0 Obesity, Unspecified 04/01/2010 DANIELLE WHITING PALOMO K 278.00 Obesity, Unspecified 04/01/2010 DARLING HERNANDEZ MD 278.0 0 Obesity, Unspecified 04/01/2010 ANUEL SHOTBLASTER, GEOVANNY J 278.00 Obesity, Unspecified 05/01/2010 DARLING HERNANDEZ MD 268.9 UNSPECIFIED VITAMIN D DEFICIENCY 05/01/2010 DARLING HERNANDEZ MD 268.9 UNSPECIFIED VITAMIN D DEFICIENCY 05/01/2010 268.9 UNSP ECIFIED VITAMIN D DEFICIENCY 05/01/2010 268.9 UNSP ECIFIED VITAMIN D DEFICIENCY 05/01/2010 DARLING HERNANDEZ MD 268.9 UNSPECIFIED VITAMIN D DEFICIENCY 05/01/2010 SANTOS DO PALOMO K 268.9 UNSPECIFIED VITAMIN D DEFICIENCY 05/01/2010 MAHESH BRYANT KIMBERLEE MARC 268.9 UNSPECIFIED VITAMIN D DEFICIENCY 05/01/2010 DARLING HERNANDEZ MD 268.9 UNSPECIFIED VITAMIN D DEFICIENCY 05/01/2010 MAHESH BRYANT KIMBERLEE MARC 268.9 UNSPECIFIED VITAMIN D DEFICIENCY 05/01/2010 KIMBERLEE ARAGON APRN 268.9 UNSPECIFIED VITAMIN D DEFICIENCY 05/01/2010 SANTOS DO PALOMO K 268.9 UNSPECIFIED VITAMIN D DEFICIENCY 05/01/2010 SANTOS DO, PALOMO K 268.9 UNSPECIFIED VITAMIN D DEFICIENCY 05/01/2010 DARLING HERNANDEZ MD 268.9 UNSPECIFIED VITAMIN D DEFICIENCY 05/01/2010 SANTOS DO, PALOMO K 268.9 UNSPECIFIED VITAMIN D DEFICIENCY 05/01/2010 DARLING HERNANDEZ MD 268.9 UNSPECIFIED VITAMIN D DEFICIENCY 05/01/2010 DARLING HERNANDEZ MD 268.9 UNSPECIFIED VITAMIN D DEFICIENCY 05/01/2010 SANTOS DO, PALOMO K 268.9 UNSPECIFIED VITAMIN D DEFICIENCY 05/01/2010 DARLING HERNANDEZ MD 268.9 UNSPECIFIED VITAMIN D DEFICIENCY 05/01/2010 GEOVANNY AGEE APRN 268.9 UNSPECIFIED VITAMIN D DEFICIENCY 06/24/2010 DARLING HERNANDEZ MD 719.4 7 Pain In Joint Involving Ankle And Foot 06/24/2010 DARLING HERNANDEZ MD 719.4 7 Pain In Joint Involving Ankle And Foot 06/24/2010 719.47 Ron n In Joint Involving Ankle And Foot 06/24/2010 719.47 Ron n In Joint Involving Ankle And Foot 06/24/2010 DARLING HERNANDEZ MD 719.4 7 Pain In Joint Involving Ankle And Foot 06/24/2010 SANTOS DO, PALOMO K 719.47 Pain In Joint Involving Ankle And Foot 06/24/2010 KIMBERLEE ARAGON APRN 719.47 Pain In Joint Involving Ankle And Foot 06/24/2010 DARLING HERNANDEZ MD 719.4 7 Pain In Joint Involving Ankle And Foot 06/24/2010 KIMBERLEE ARAGON APRN 719.47 Pain In Joint Involving Ankle And Foot 06/24/2010 KIMBERLEE AARGON APRN 719.47 Pain In Joint Involving Ankle And Foot 06/24/2010 PALOMO SANTOS DO 719.47 Pain In Joint Involving Ankle And Foot 06/24/2010 PALOMO SANTOS DO 719.47 Pain In Joint Involving Ankle And Foot 06/24/2010 DARLING HERNANDEZ MD 719.4 7 Pain In Joint Involving Ankle And Foot 06/24/2010 PALOMO SANTOS DO 719.47 Pain In Joint Involving Ankle And Foot 06/24/2010 DARLING HERNANDEZ MD 719.4 7 Pain In Joint Involving Ankle And Foot 06/24/2010 DARLING HERNANDEZ MD 719.4 7 Pain In Joint Involving Ankle And Foot 06/24/2010 PALOMO SANTOS DO 719.47 Pain In Joint Involving Ankle And Foot 06/24/2010 DARLING HERNANDEZ MD 719.4 7 Pain In Joint Involving Ankle And Foot 06/24/2010 GEOVANNY AGEE APRN 719.47 Pain In Joint Involving Ankle And Foot 10/08/2010 DARLING HERNANDEZ MD 272.4 OTHER AND UNSPECIFIED HYPERLIPIDEMIA 10/08/2010 DARLING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
[2019-12-16 20:50] LABS: CHLORIDE 110 MMOL/L (98-107); POTASSIUM 3.7 MMOL/L (3.6-5.0); SODIUM 139 MMOL/L (135-145)
[2019-12-16 20:51] LABS: CALCIUM 8.6 MG/DL (8.5-10.1)
[2019-12-16 20:52] LABS: GLUCOSE 102 MG/DL (70-105)
[2019-12-16 20:53] LABS: CARBON DIOXIDE 16 MMOL/L (21-32)
[2019-12-16 20:56] LABS: CREATININE SERUM 0.77 MG/DL (0.60-1.30); GFR ESTIMATED > 60
[2019-12-16 20:57] LABS: BUN/CREATININE RATIO 16
[2019-12-16 21:18] VITALS: BP 125/87
== END 2019-12-16 21:19 | disposition home or self-care (01) ==
LOC: EDUNIT# 20:15 → ER 20:17
DX: M79.89 Other specified soft tissue disorders (principal); M54.9 Dorsalgia, unspecified; G89.29 Other chronic pain; F90.9 Attention-deficit hyperactivity disorder, unspecified type; F32.9 Major depressive disorder, single episode, unspecified; Z86.718 Personal history of other venous thrombosis and embolism; Z88.8 Allergy status to other drugs, medicaments and biological substances
CPT/HCPCS: 36415; 80048; 85025; 85379

== ENCOUNTER → 2022-09-03 | Outpatient (CLI) | payer MEDICAID, MEDICARE ==
--- NOTE | 2022-09-03 16:04 | Diagnostic Imaging Report ---
EXAMINATION: Right knee radiographs, 4 views. COMPARISON: None. HISTORY: 57-year-old female, right knee pain. FINDINGS: There is severe medial and patellofemoral compartment joint space loss with prominent osteophyte formation and ierx-ql-lokl articulation. There is mild narrowing of the lateral compartment. There are lateral compartment osteophytes. There is no knee joint effusion. The patella is normally positioned. There is no identified acute fracture. IMPRESSION: Severe tricompartmental osteoarthritis of the right knee most notably involving the medial and patellofemoral compartments without knee joint effusion. Dictated by: Dictated on workstation # [id number]
== END ==
LOC: ORTHO 13:53
PROVIDERS: ATTEND Orthopaedic Surgery
DX: M17.11 Unilateral primary osteoarthritis, right knee (principal)
CPT/HCPCS: 73564; 99203

== ENCOUNTER 2022-09-19 16:27 | Emergency (ER) | payer MEDICARE, MEDICAID ==
[~2022-09-19] VITALS: Ht 162 cm; Wt 114.0 kg
[2022-09-19 16:33] VITALS: BP 140/90
[2022-09-19] MEDS ORDERED: AMOX1TAB12 PO (16:59)
--- NOTE | 2022-09-19 17:00 | ED EENT ---
History of Present Illness General Chief Complaint: Ear Problems Stated Complaint: RT EAR PAIN Nursing Triage Note: PT PRESENTS TO ED WITH C/O RIGHT EAR PAIN AND MUFFLED HEARING X SEVERAL DAYS. PT GOT EARS CLEANED OUT 2 DAYS AGO BUT SX REMAIN. Source: patient Exam Limitations: no limitations History of Present Illness Date Seen by Provider: Sep 19, 2022 Time Seen by Provider: 16:55 Initial Comments Patient is a 57-year-old female who presents ED with right ear pain, fullness, feeling of fluid behind her ear. She states she noticed symptoms about a month ago. She states when she lays to the right she notes increased fullness. She reports popping sensation feels like fluids in her ear. Few days ago she went to [facility] and had irrigation of her right ear. This did not improve. She reports muffling of the right ear. Denies of any ear ringing, hearing loss, dizziness, unsteady gait, sore throat, fever, recent upper respiratory infection. She does have a history of allergies. Patient denies any drain Allergies and Home Medications Allergies Coded Allergies: duloxetine HCl (Verified Allergy, 03/04/13) Patient Home Medication List Home Medication List Reviewed: Yes Amoxicillin/Potassium Clav (Amox Tr-K Clv 875-125 mg Tab) 875 Mg-125 Mg Tablet, 1 EACH PO BID Prescribed by: RASHAWN HENDERSON on 09/19/22 1659 Amphet Asp/Amphet/D-Amphet (Adderall 20 Mg Tablet) 20 Mg Tablet, 20 MG PO BID, (Reported) Entered as Reported by: JOSE FONTAINE on 03/04/13 1700 Cephalexin Monohydrate (Cephalexin) 500 Mg Capsule, 1 EACH PO TID Prescribed by: AUGUSTINA ROWAN on 10/24/14 2243 Gabapentin (Neurontin) 400 Mg Capsule, 1 EACH PO QID, (Reported) Entered as Reported by: JOSE FONTAINE on 03/04/13 1700 Hydrochlorothiazide (Hctz) 12.5 Mg Cap, 50 MG PO BID, (Reported) Entered as Reported by: JOSE FONTAINE on 03/04/13 1700 Ibuprofen (Motrin) 400 Mg Tablet, 1 EACH PO QID, (Reported) Entered as Reported by: JOSE FONTAINE on 03/04/13 1700 Pseudoephedrine HCl (Sudafed) 30 Mg Tablet, 30 MG PO Q6H Prescribed by: RASHAWN HENDERSON on 09/19/22 1726 Review of Systems Review of Systems Constitutional: No chills, No diaphoresis, No malaise, No weakness Eyes: Denies Blurred Vision, Denies Decreased Acuity, Denies Photophobia, Denies Previous Injury Ears: Denies Dizziness; Pain; Denies Tinnitus, Denies Purulent Discharge Throat: denies pain, denies swelling, denies discharge, denies neck stiffness Respiratory: No cough, No dyspnea on exertion, No wheezing Cardiovascular: No chest pain Gastrointestinal: No abdominal pain, No diarrhea, No nausea, No vomiting Musculoskeletal: No back pain, No joint pain Past Mlphpvw-Icenrs-Uyniuj Hx Patient Social History Tobacco Use?: No Substance use?: No Alcohol Use?: No Pt feels they are or have been: No Immunizations Up To Date Tetanus Booster (TDap): Less than 5yrs PED Vaccines UTD: Yes Influenza Vaccine Up-to-Date: No; Not Current Past Medical History Surgeries: Yes (RIGHT CARPAL TUNNEL, LEFT KNEE) Respiratory: No Cardiac: No Neurological: 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 oz. 92.866923ty; 43.00 BMI Method:Stated General Appearance: WD/WN, no apparent distress Eyes: bilateral eye normal inspection, bilateral eye PERRL, bilateral eye EOMI Ears: right ear TM red, right ear TM bulging Nose: normal inspection Mouth/Throat: normal mouth inspection, pharynx normal Neck: non-tender, full range of motion, supple Cardiovascular: regular rate, rhythm, no edema, no gallop, no JVD Respiratory: chest non-tender, lungs clear, normal breath sounds, no respiratory distress Gastrointestinal: normal bowel sounds, non tender, soft Neurologic/Psychiatric: bottom turning lathe turner II-XII nml as tested, no motor/sensory deficits, alert, normal mood/affect, oriented x 3 Skin: normal color, warm/dry Progress/Results/Core Measures Results/Orders Vital Signs/I&O 09/19/22 16:33 Temp 36.8 Pulse 83 Resp 20 B/P (MAP) 140/90 (107) Pulse Ox 97 O2 Delivery Room Air Blood Pressure Mean: 107 Departure Communication (PCP) Concerning for right otitis media with dull bulging right TM. Fluid behind the right ear. Left TM clear. Oropharynx patent. Will discharge with Augmentin and provided Sudafed that she is complaining of ear popping and feels like fluid in her right ear. She does have a history of allergies. Discussed Sudafed nasal steroid, antihistamine. Continue monitoring blood pressure with Sudafed. She is not on blood pressure medication. Provided ENT outpatient follow-up as needed. Return precautions were discussed Impression Primary Impression: Otitis media Disposition: HOME, SELF-CARE Condition: Stable Departure-Patient Inst. Decision time for Depature: 16:58 Referrals: KALEB PRIETO MD [facility] (PCP) Primary Care Physician Patient Instructions: Ear Infection ED Add. Discharge Instructions: Recommend Sudafed decongestion to help with pressure. All discharge instructions reviewed with patient and/or family. Voiced understanding. Scripts Pseudoephedrine HCl (Sudafed) 30 Mg Tablet 30 MG PO Q6H, #25 TAB Prov: GÉNESIS GARCIA 09/19/22 Amoxicillin/Potassium Clav (Amox Tr-K Clv 875-125 mg Tab) 875 Mg-125 Mg Tablet 1 EACH PO BID for 10 Days, #20 TAB Prov: GÉNESIS GARCIA 09/19/22 GÉNESIS GARCIA Sep 19, 2022 17:00
[2022-09-19] MEDS ORDERED: PSEU-182 PO (17:26)
== END 2022-09-19 17:03 | disposition home or self-care (01) ==
LOC: EDUNIT# 16:27 → ER 16:29
DX: H66.91 Otitis media, unspecified, right ear (principal)
CPT/HCPCS: 99282

== ENCOUNTER 2022-09-21 12:32 | Outpatient (CLI) | payer MEDICARE, MEDICAID ==
[~2022-09-21] VITALS: Ht 165.1 cm; Wt 114.5 kg
[~2022-09-21 12:32] MED LIST changes: +AMOX1TAB12 PO; +PSEU-182 PO
--- NOTE | 2022-09-21 14:00 | Diagnostic Imaging Report ---
INDICATION: Preoperative evaluation prior to knee surgery. COMPARISON: 10/24/2014. FINDINGS: Frontal and lateral views of the chest demonstrate normal heart size and pulmonary vascularity. The lungs are clear. There are no signs of infiltrate, pleural effusions or pneumothoraces. The visualized osseous structures show no acute abnormalities. IMPRESSION: 1. No acute process. No signs of infiltrates, effusions or pneumothoraces. Dictated by: Dictated on workstation # [id number]
[2022-09-21 14:07] VITALS: BP 157/90
[2022-09-21 14:44] LABS: BILIRUBIN,URINE NEGATIVE (NEGATIVE); CLARITY,URINE CLEAR; COLOR,URINE YELLOW; GLUCOSE, URINE (UA) NEGATIVE (NEGATIVE); KETONES,URINE NEGATIVE (NEGATIVE); LEUKOCYTE ESTERASE ,URINE NEGATIVE (NEGATIVE); NITRITE,URINE NEGATIVE (NEGATIVE); PH,URINE 7.5 (5-9); PROTEIN,URINE NEGATIVE (NEGATIVE)
[2022-09-21 14:45] LABS: BASOPHILS # (AUTO) 0.1 10^3/uL (0.0-0.1); BASOPHILS % (AUTO) 1 % (0-10); EOSINOPHILS # (AUTO) 0.1 10^3/uL (0.0-0.3); EOSINOPHILS % (AUTO) 1 % (0-10); HEMATOCRIT 42 % (35-52); HEMOGLOBIN 13.6 g/dL (11.5-16.0); LYMPHOCYTES # (AUTO) 3.7 10^3/uL (1.0-4.0); LYMPHOCYTES % (AUTO) 43 % (12-44); MEAN CORPUSCULAR HEMOGLOBIN 30 pg (25-34); MEAN CORPUSCULAR HGB CONC 33 g/dL (32-36); MEAN CORPUSCULAR VOLUME 91 fL (80-99); MEAN PLATELET VOLUME 10.3 fL (9.0-12.2); MONOCYTES # (AUTO) 0.4 10^3/uL (0.0-1.0); MONOCYTES % (AUTO) 5 % (0-12); NEUTROPHILS # (AUTO) 4.4 10^3/uL (1.8-7.8); NEUTROPHILS % (AUTO) 51 % (42-75); PLATELET COUNT 261 10^3/uL (130-400); WHITE BLOOD COUNT 8.5 10^3/uL (4.3-11.0)
[2022-09-21 14:52] LABS: POTASSIUM 4.1 MMOL/L (3.6-5.0)
[2022-09-21 14:53] LABS: BACTERIA,URINE NEGATIVE /HPF; SQUAMOUS EPITHELIAL CELL,UR RARE /HPF
[2022-09-21 14:58] LABS: CREATININE SERUM 0.75 MG/DL (0.60-1.30)
== END 2022-09-21 16:41 ==
LOC: PREOP 12:32
PROVIDERS: ATTEND Orthopaedic Surgery
DX: Z01.811 Encounter for preprocedural respiratory examination (principal)
CPT/HCPCS: 36415; 71046; 80048; 81000; 85025; 87081; 93005

== ENCOUNTER 2022-09-28 07:29 | Observation (INO) | payer MEDICARE, MEDICAID ==
[~2022-09-28] VITALS: Ht 162.6 cm; Wt 116.0 kg
[2022-09-28] VITALS (10 sets, daily range): BP systolic 102–145; BP diastolic 59–85
[2022-09-28] MEDS ORDERED: ceFAZolin INJECTION 2,000 MG in NS (IVPB) 50 ML IV ONE (07:45)
[2022-09-28] MEDS ORDERED: MIDAZOLAM 2 MG/2 ML (VERSED) VIAL ONE (08:04)
[2022-09-28] MEDS ORDERED: fentaNYL INJ 100 MCG/2 ML AMP ONE (08:04)
[2022-09-28] MEDS ORDERED: TRANEXAMIC ACID 100 MG/ML 10 ML INJECTION ONE (08:05)
[2022-09-28] MEDS ORDERED: BUPIVACAINE 0.5% 30 ML (SENSORCAINE) VIAL ONE (08:17)
[2022-09-28] MEDS: LACTATED RINGERS 1,000 ML IV PRN ×3 (08:25→11:07)
[2022-09-28] MEDS ORDERED: PROPOFOL INJECTION 50 ML IV ONE (08:46)
--- NOTE | 2022-09-28 09:27 | Progress Note-Pre Operative ---
Pre-Operative Progress Note Date of Available H&P: Sep 03, 2022 Date H&P Reviewed: Sep 28, 2022 Time H&P Reviewed: 09:20 History & Physical: H&P Reviewed, Patient Examed, No changes noted Pre-Operative Diagnosis: Right Knee Primary Osteoarthritis MALDONADO SEPULVEDA MD Sep 28, 2022 09:27
[2022-09-28] MEDS ORDERED: PHENYLEPHRINE 100 MCG/ML 10 ML (ANESTHESIA) SYR ONE (09:48)
[2022-09-28] MEDS ORDERED: PHENYLEPHRINE INJ 10 MG/ML (FOR PYXIS KITS ONLY) ONE (10:05)
[2022-09-28] MEDS ORDERED: proPOfol 200 MG/20 ML (DIPRIVAN) VIAL IV ONE (10:53)
--- NOTE | 2022-09-28 12:02 | Operative Report - Ortho ---
Operative Report Surgeon (s)/Senior Online Marketing Manager (s) Surgeon MALDONADO SEPULVEDA MD Senior Online Marketing Manager n/a Pre-Operative Diagnosis Right Knee Primary Osteoarthritis Post-Operative Diagnosis same Operative Report Date of Procedure: Sep 28, 2022 Name of Procedure Performed: Right Total Knee Arthroplasty Description & Findings After obtaining informed consent and marking the patient in the preoperative holding area, the patient did receive IV antibiotics. Patient was taken to the operating room and anesthesia was induced. Surgical timeout was taken. The right lower extremity was prepped and draped in the usual sterile fashion. Incision was made and carried down to fascia. Arthrotomy was performed on the medial side of the patella. Patella was retracted laterally and knee was flexed. Found to have circumferential osteophtye around the distal femur as well as exposed bone in the medial compartment. Hole was made in the distal femur for the intramedullary distal femoral cutting guide. Resection was made then the femur was sized as a 3. 4-in-1 block for a size [address]. Anterior cut was made and there was no notch. Posterior cut was made followed by the chamfers. Box cut was performed. Lug holes were drilled. Attention was turned to the tibial side, extramedullary tibial guide was put into place and aligned with the tibial crest. It was set to take 2 mm off of the affected medial side. Drop ayana was used to confirm alignment. Resection was made and was parallel to the joint line. Tibial bone block was removed. Lamina associate sales representative was put into place and the menisci and posterior osteophytes were removed. The knee was trialed with a size 3 femur and a size 3 tibia with a 9 mm poly trial. It was found to come out to full extension and flexed beyond 120 degrees. It was stable to varus and valgus stress throughout its range of motion. This was accepted. Knee was brought out into extension and the patella was measured. It was only 18 mm thick. Osteophytes were debrided from the patella. Trial implants were removed. Tibial tray was pinned and punched. Tibial press fit guide was placed and holes were drilled. The cut bone surfaces were lavaged with pulsatile normal saline. Implants were opened and assembled on the back table. A size 3 press fit tibial component was impacted into place. A size 3 press fit femoral component was impacted into place. Tibial tray was lavaged with saline. A 9 mm thick polyethylene component was locked into placed and the locking mechanism was checked. Knee was brought into extension. Betadine soak was performed and then, the knee was irrigated with normal saline. The knee was once again trialed; found to come to full extension, flexed beyond 120 degrees, and was stable to varus and valgus stress. Tourniquet was dropped and electrocautery was used for hemostasis. Fascial layer was closed with #2 Stratafix. The subcutaneous layer was closed with 2-0 Vicryl. The skin was closed with chris. Wound was dressed with xeroform, 4x4s, ABD, webril, and SIMIN wrap. Patient tolerated the procedure well and was stable to the recovery room. Anesthesia Type Spinal Estimated Blood Loss 150 ml Specimen(s) collected/removed None MALDONADO SEPULVEDA MD Sep 28, 2022 12:02
[2022-09-28] MEDS ORDERED: ACETAMINOPHEN 500 MG TAB (TYLENOL) PO PRN (12:15)
[2022-09-28] MEDS ORDERED: HYDROmorphone 2 MG/ML VIAL (DILAUDID) IV ONE (12:15)
[2022-09-28] MEDS ORDERED: ONDANSETRON 4 MG/2 ML (SDV) Z0FRAN IVP PRN (12:15)
[2022-09-28] MEDS ORDERED: MILK OF MAGNESIA 400 MG/5 ML 30 ML UDC PO PRN (12:15)
[2022-09-28] MEDS ORDERED: BISACODYL 5 MG (DULCOLAX) TABLET PO PRN (12:15)
[2022-09-28] MEDS ORDERED: PSEUDOEPHEDRINE HCL 30 MG (SUDAFED) TAB PO PRN (12:15)
--- NOTE | 2022-09-28 14:01 | Physical Therapy Evaluation ---
PT Evaluation-General Medical Diagnosis Admission Date Sep 28, 2022 at 12:54 Medical Diagnosis: Right TKA Onset Date: Sep 28, 2022 Therapy Diagnosis Therapy Diagnosis: Gait deficit, strength deficit Height/Weight Height (Feet): 5 Height (Inches): 1 Weight (Pounds): 205 Precautions Precautions/Isolations: Fall Prevention, Standard Precautions Weight Bear Status Right Lower Extremity: Right Weight Bearing/Tolerated Left Lower Extremity: Left Full Weight Bearing Referral Physician: Dr. Bunch Reason for Referral: Evaluation/Treatment Medical History Reviewed History: Yes Social History Home: [facility] Current Living Status: Alone Entry Into Home: Stairs With Railing PT Steps Into Home: 4 PT Steps Inside Home: 15 Prior Prior Level of Function SCALE: Activities may be completed with or without assistive devices. 2-Tgdxqsamkw-sqfbmyn completes the activity by him/herself with no assistance from a helper. 5-Set-up or Clean-up Assistance-helper sets up or cleans up; patient completes activity. [place] assists only prior to or following the activity. 4-Supervision or Touching Assistance-helper provides verbal cues and/or touching/steadying and/or contact guard assistance as patient completes activity. Assistance may be provided throughout the activity or intermittently. 3-Partial/Moderate Assistance-helper does LESS THAN HALF the effort. [place] lift s, holds or supports trunk or limbs, but provides less than half the effort. 2-Substantial/Maximal Assistance-helper does MORE THAN HALF the effort. [place] lifts or holds trunk or limbs and provides more than half the effort. 5-Nauncesbb-edzosh does ALL the effort. Patient does none of the effort to complete the activity. Or, the assistance of 2 or more helpers is required for the patient to complete the activity. If activity was not attempted, code reason: 7-Patient Refused. 9-Not Applicable-not attempted and the patient did not perform the activity before the current illness, exacerbation or injury. 10-Not Attempted due to Environmental Limitations-(lack of equipment, weather restraints, etc.). 88-Not Attempted due to Medical Conditions or Safety Concerns. Bed Mobility: 6 Transfers (B,C,W/C): 6 Gait: 6 Stairs: 6 Indoor Mobility (Ambulation): Independent Stairs: Independent Prior Devices Use: None PT Evaluation-Current Subjective Patient lying supine in bed upon PT arrival, agreeable to treatment. Patient rates pain at 5/10 in right knee currently. Objective Patient Orientation: Person, Place, Time, Situation Attachments: Neal Catheter, IV ROM/Strength ROM Lower Extremities Left LE WFLs all planes, Right knee 60 degrees flexion, 10 degrees from full extension. Strength Lower Extremities Left 4/5 all planes; Right LE N/A this visit. Sensory Vision: Functional Hearing: Functional Sensation Right Lower Extremit: Intact Sensation Left Lower Extremity: Intact Transfers Roll Left to Right (QC): 4 Sit to Lying (QC): 4 Lying to Sitting/Side of Bed(Q: 4 Sit to Stand (QC): 4 Chair/Vxn-zb-Sbdsg Xfer(QC): 4 Gait Does the Patient Walk?: Yes Mode of Locomotion: Walk Anticipated Mode of Locomotion: Walk Walk 10 feet (QC): 4 Distance: 40 feet Gait Assistive Device: FWW Balance Sitting Static: Good Sitting Dynamic: Good Standing Static: Fair Standing Dynamic: Fair Assessment/Needs Patient tolerated treatment fair. Significant guarding to right LE, however patients functional mobility overall is good. Patient performs all observed bed mobility and transfers with SBA. Patient ambulates 40 feet with FWW, with SBA and verbal cues for safety, progression and conservation of energy. Patient in chair post treatment with all needs met, nursing notified,call light in hand. Rehab Potential: Good PT Mcc Goals Ammonia Solution Preparer Goals PT Mcc Goals Time Frame: Oct 17, 2022 Roll Left & Right (QC): 6 Sit to Lying (QC): 6 Lying-Sitting on Side/Bed(QC): 6 Sit to Stand (QC): 6 Chair/Gez-ke-Yuurt Xfer(QC): 6 Toilet Transfer (QC): 6 Car Transfer (QC): 6 Does the Patient Walk: Yes Walk 10 feet (QC): 6 Walk 50ft with 2 Turns (QC): 6 Walk 150 ft (QC): 6 Walking 10ft on Uneven Surface: 6 1 Step (curb) (QC): 4 4 Steps (QC): 4 12 Steps (QC): 4 Picking up an Object (QC): 6 PT Plan Problem List Problem List: Activity Tolerance, Functional Strength, Safety, Balance, Gait, Transfer, Bed Mobility, ROM Treatment/Plan Treatment Plan: Continue Plan of Care Treatment Plan: Bed Mobility, Education, Functional Activity So, Functional Strength, Group Therapy, Gait, Safety, Therapeutic Exercise, Transfers Treatment Duration: Oct 23, 2022 Frequency: 11 times per week Estimated Hrs Per Day: .25 hour per day Patient and/or Family Agrees t: Yes Safety Risks/Education Patient Education: Gait Training, Transfer Techniques Teaching Recipient: Patient Teaching Methods: Demonstration, Discussion Response to Teaching: Verbalize Understanding, Return Demonstration Time Time In: 1334 Time Out: 1400 DATE: Sep 28, 2022 Total Billed Treatment Time: 26 Total Billed Treatment Visit, Jm MABRY JOHN A PT Sep 28, 2022 14:01
--- NOTE | 2022-09-28 14:15 | Consultation ---
SUMIT VO 09/28/22 1415: HPI History of Present Illness: HPI/Chief Complaint Patient being seen at the request of Dr. Sepulveda for medical management after a R TKA. 57 year old female with no reported major past medical history is admitted to [facility] to have a R TKA. Patient got out of the procedure ~1 hour ago. Patient states she had the procedure for osteoarthritis of the right knee that developed over time after she had a traumatic injury to her left knee that required a TKA. Patient states that has not been to a doctor for a long time and does not follow one regularly. Patient states she is currently in significant pain after her procedure, rating her pain an "11/10". Patient is requesting more pain m edication. Patient also endorses nausea, dizziness, and feeling like she is having a hot flash. Patient is in some distress from her surgery. Will attempt to gather more medical history/needs at follow-up visit. Source: patient Exam Limitations: no limitations Date Seen 09/28/22 Attending Physician No,Local Physician PCP Admitting Physician: Maldonado Sepulveda MD Attending Physician: Maldonado Sepulveda MD Referring Physician Date of Admission Sep 28, 2022 at 12:54 Home Medications & Allergies Home Medications Reviewed patient Home Medication Reconciliation performed by pharmacy medication reconciliations physical therapist technician and/or nursing. Patients Allergies have been reviewed. Allergies Allergies Coded Allergies duloxetine HCl (Verified Allergy, Unknown, 09/21/22) UNKNOWN Patient reported NKDA to me at this time. Will need further verification. - LY 09/28/22 1416 Past Wlsuntm-Lkogih-Pkhtxz Hx Patient Social History Marrital Status: single (Lives at home alone) Employed/Student: unemployed (Disability) Tobacco Use?: No Smoking Status: Never a Smoker Substance use?: No Alcohol Use?: Yes Alcohol type: Beer (1-2 beers/week) Immunizations Up To Date Date of Influenza Vaccine: Mar 26, 2022 First/Initial COVID19 Vaccinat: 01/27/21 Second COVID19 Vaccination [place]: 03/15 Hepatitis A: No Hepatitis B: Yes PED Vaccines UTD: Yes Seasonal Allergies Seasonal Allergies: Yes Current Status Primary Language: St Helen[place] Past Medical History Surgeries: Joint Replacement (bilat TKA) Currently Using CPAP: No Currently Using BIPAP: No ASSISTANT AT SURGERY History: Menopausal Sexually Transmitted Disease: No Degenerate Disk Disease, Arthritis, Chronic Back Pain Blood Disorders: No Adverse Reaction/Blood Tranf: No Family Medical History Cancer, CVA Review of Systems Constitutional: dizziness, other (Hot flash) EENTM: No double vision, No vision loss Respiratory: No cough, No dyspnea on exertion Cardiovascular: No chest pain, No palpitations Gastrointestinal: No abdominal pain, No constipation, No diarrhea Genitourinary: No dysuria, No frequency Musculoskeletal: back pain, joint pain Psychiatric/Neurological: Denies Anxiety, Denies Depressed Physical Exam Physical Exam Vital Signs Vital Signs - First Documented 09/28/22 07:30 Temp 36.0 Pulse 106 Resp 22 B/P (MAP) 144/85 (104) Pulse Ox 95 O2 Delivery Room Air Capillary Refill : Less Than 3 Seconds Height, Weight, BMI Height: 5'1" Weight: 205lbs. oz. 92.843860ez; 43.30 BMI Method:Stated General Appearance: No Apparent Distress, Mild Distress HEENT: PERRL/EOMI Neck: Non Tender, Supple Respiratory: Lungs Clear, Normal Breath Sounds, No Accessory Muscle Use, No Respiratory Distress Cardiovascular: Regular Rate, Rhythm, No Murmur Gastrointestinal: Non Tender, Soft Rectal: Deferred Extremity: Normal Capillary Refill, Other (R knee wrapped and on compression device) Neurologic/Psychiatric: Alert, Oriented x3, Normal Mood/Affect Skin: Normal Color, Warm/Dry Results Results/Procedures Labs Patient resulted labs reviewed. Imaging: Reviewed Imaging Films, Reviewed Imaging Report Imaging [facility], [place] NAME: LUIS MANUEL ROBLES [facility] REC#: [id number] PT STATUS: ADM IN : 1965 PHYSICIAN: MALDONADO SEPULVEDA MD ADMIT DATE: 09/28/22/ Signed Date of Exam:09/28/22 KNEE, RIGHT, 2 VIEWS CLINICAL HISTORY: Postop right knee arthroplasty. COMPARISON: 09/03/2022. TECHNIQUE: Two views of the right knee. FINDINGS: Post surgical changes of right total knee arthroplasty are visualized. No acute fracture. There is a small amount of lucency between the distal right femur and femoral component. The tibial component is well-seated. Skin chris are seen overlying the right knee. IMPRESSION: 1. Small amount of lucency between the distal right femur and the femoral component. Recommend followup to ensure stability. 2. No acute fracture. Dictated by: Dictated on workstation # [id number] Dict: 09/28/22 1231 Trans: 09/28/22 1417 [id number] Interpreted by: MARICEL VILLALOBOS DO Electronically signed by: MARICEL VILLALOBOS DO 09/28/22 1417 Assessment/Plan Assessment and Plan Assess & Plan/Chief Complaint S/P R Total Knee Arthroplasty - Post-op day 1 - Pain management per Ortho - Use IS as often as tolerated - Up and ambulating when possible per Ortho orders - SCDs - Will manage patient's medical needs as they arise during hospitalization Obesity - Class Three - Patient does not follow with a PCP in the outpatient setting - Will need various routine labs done in the outpatient setting for general screening Dispo: Attempting to get approval for inpatient rehab unit. AALIYAH GATES DO 09/29/22 0450: Supervisory-Addendum Brief Verification & Attestation Participated in pt care: history, MDM, physical Personally performed: exam, history, MDM, supervision of care Care discussed with: Medical Student Procedures: n/a Results interpretation: Verified all documentation Verification and Attestation of Medical Student E/M Service A medical student performed and documented this service in my presence. I reviewed and verified all information documented by the medical student and made modifications to such information, when appropriate. I personally performed the physical exam and medical decision making. Aaliyah Gates Sep 29, 2022,04:50 GILDASUMIT Sep 28, 2022 14:15 AALIYAH GATES DO Sep 29, 2022 04:50
[2022-09-28] MEDS: ONDANSETRON 4 MG/2 ML (SDV) Z0FRAN IV PRN (14:17)
[2022-09-28] MEDS: NS IV 1000 ML 1,000 ML IV SCH ×2 (14:17→22:35)
[2022-09-28] MEDS: morphine INJ 4 MG/ML 1 ML (VIAL/SYRINGE) IVP PRN ×4 (14:17→23:19)
[2022-09-28] MEDS: ceFAZolin INJECTION 2,000 MG in NS (IVPB) 50 ML IV SCH (17:53)
[2022-09-28] MEDS: ASPIRIN E.C. 81 MG (ECOTRIN) TAB PO SCH (17:53)
[2022-09-28] MEDS: DOCUSATE SODIUM 100 MG (COLACE) CAP PO SCH (19:53)
[2022-09-28] MEDS: CELECOXIB 100 MG (CeleBREX) CAP PO SCH (19:54)
[2022-09-28] MEDS ORDERED: ceFAZolin INJECTION 2,000 MG in NS (IVPB) 50 ML IV SCH (21:00)
[2022-09-29] MEDS: NS IV 1000 ML 1,000 ML IV SCH (00:29)
[2022-09-29] MEDS: ceFAZolin INJECTION 2,000 MG in NS (IVPB) 50 ML IV SCH (01:14)
[2022-09-29] MEDS: morphine INJ 4 MG/ML 1 ML (VIAL/SYRINGE) IVP PRN ×4 (01:19→20:10)
[2022-09-29 04:01] VITALS: BP 112/74
[2022-09-29 06:11] LABS: BASOPHILS % (AUTO) 0 % (0-10); EOSINOPHILS % (AUTO) 0 % (0-10); HEMATOCRIT 33 % (35-52); HEMOGLOBIN 10.6 g/dL (11.5-16.0); LYMPHOCYTES # (AUTO) 2.5 10^3/uL (1.0-4.0); LYMPHOCYTES % (AUTO) 28 % (12-44); MEAN CORPUSCULAR HEMOGLOBIN 30 pg (25-34); MEAN CORPUSCULAR HGB CONC 32 g/dL (32-36); MEAN CORPUSCULAR VOLUME 92 fL (80-99); MEAN PLATELET VOLUME 10.4 fL (9.0-12.2); MONOCYTES # (AUTO) 0.7 10^3/uL (0.0-1.0); MONOCYTES % (AUTO) 8 % (0-12); NEUTROPHILS # (AUTO) 5.6 10^3/uL (1.8-7.8); NEUTROPHILS % (AUTO) 63 % (42-75); PLATELET COUNT 271 10^3/uL (130-400); WHITE BLOOD COUNT 8.9 10^3/uL (4.3-11.0)
[2022-09-29] MEDS: MULTIVIT W/MINERALS TAB (THERAGRAN M) PO SCH (06:18)
[2022-09-29 06:25] LABS: ALBUMIN 3.4 GM/DL (3.2-4.5); BILIRUBIN,TOTAL 0.5 MG/DL (0.1-1.0); CALCIUM 8.2 MG/DL (8.5-10.1); CREATININE SERUM 0.76 MG/DL (0.60-1.30); POTASSIUM 3.8 MMOL/L (3.6-5.0); TOTAL PROTEIN 6.3 GM/DL (6.4-8.2)
[2022-09-29 07:03] VITALS: BP 139/61
--- NOTE | 2022-09-29 07:44 | Anesthesia-Regional Post-Op ---
Regional Patient Condition Mental Status: Alert, Oriented x3 Circulation: Same as Pre-Op Headache: Absent Sensation: Full Recovery Motor Block: Absent Post Op Complications Complications None Follow Up Care/Instructions Patient Instructions None needed. Anesthesia/Patient Condition Patient is doing well, no complaints, stable vital signs, no apparent adverse anesthesia problems. No complications reported per nursing. D/C home per [facility] Criteria: Yes RANCHO ELAM CRNA Sep 29, 2022 07:44
[2022-09-29] MEDS: CELECOXIB 100 MG (CeleBREX) CAP PO SCH ×2 (08:19→20:10)
[2022-09-29] MEDS: DOCUSATE SODIUM 100 MG (COLACE) CAP PO SCH ×2 (08:19→20:10)
[2022-09-29] MEDS: ASPIRIN E.C. 81 MG (ECOTRIN) TAB PO SCH ×2 (08:20→17:30)
--- NOTE | 2022-09-29 08:47 | Progress Note - Ortho ---
Progress Note Subjective Date of Exam 09/29/22 Chief Complaint POD #1 R TKA HPI/Events since last exam having some difficulty with pain, working with therapy Review of Systems - Allergies: Coded Allergies: duloxetine HCl (Verified Allergy, Unknown, 09/21/22) UNKNOWN Home Meds Active Scripts Pseudoephedrine HCl (Sudafed) 30 Mg Tablet, 30 MG PO Q6H, #25 TAB Prov:GÉNESIS GARCIA 09/19/22 Reported Medications Ibuprofen (Motrin) 400 Mg Tablet, 1 EACH PO QID 03/04/13 Discontinued Scripts Amoxicillin/Potassium Clav (Amox Tr-K Clv 875-125 mg Tab) 875 Mg-125 Mg Tablet, 1 EACH PO BID for 10 Days, #20 TAB Prov:GÉNESIS GARCIA 09/19/22 Objective Exam R Knee: Dressing C/D/I, +DF of ankle, no s/s of DVT Vital Signs Vital Signs Date Time Temp Pulse Resp B/P (MAP) Pulse Ox O2 Delivery O2 Flow Rate FiO2 09/29/22 07:03 36.4 94 18 139/61 (87) 94 Room Air 09/29/22 04:01 36.4 89 20 112/74 (87) 93 Room Air 0.00 0.00 09/28/22 23:57 36.3 92 20 115/75 (88) 92 Room Air 0.00 0.00 09/28/22 20:00 Room Air 09/28/22 19:41 37.0 99 20 145/74 (97) 93 Room Air 09/28/22 18:57 Room Air 09/28/22 15:10 36.4 76 20 109/59 (76) 97 Room Air 09/28/22 13:15 36.4 94 18 131/61 (84) 97 Room Air 09/28/22 12:35 Room Air 09/28/22 12:30 36.3 14 116/76 (89) 100 Room Air 09/28/22 12:20 18 110/84 (93) 100 Room Air 09/28/22 12:20 Room Air 09/28/22 12:10 16 106/74 (85) 100 Room Air 09/28/22 12:05 Room Air 09/28/22 12:00 18 113/72 (86) 100 OxyMask 4.00 09/28/22 11:51 OxyMask 8 09/28/22 11:51 36.2 16 102/65 (77) 100 OxyMask 8 I & O 09/29/22 07:00 Intake Total 2890 ml Output Total 2225 ml Balance 665 ml Lab Results Laboratory Tests 09/29/22 05:00: White Blood Count 8.9, Red Blood Count 3.57L, Hemoglobin 10.6L, Hematocrit 33L, Mean Corpuscular Volume 92, Mean Corpuscular Hemoglobin 30, Mean Corpuscular Hemoglobin Concent 32, Red Cell Distribution Width 13.8, Platelet Count 271, Mean Platelet Volume 10.4, Immature Granulocyte % (Auto) 0, Neutrophils (%) (Auto) 63, Lymphocytes (%) (Auto) 28, Monocytes (%) (Auto) 8, Eosinophils (%) (Auto) 0, Basophils (%) (Auto) 0, Neutrophils # (Auto) 5.6, Lymphocytes # (Auto) 2.5, Monocytes # (Auto) 0.7, Eosinophils # (Auto) 0.0, Basophils # (Auto) 0.0, Immature Granulocyte # (Auto) 0.0, Sodium Level 134L, Potassium Level 3.8, Chloride Level 104, Carbon Dioxide Level 22, Anion Gap 8, Blood Urea Nitrogen 10, Creatinine 0.76, Estimat Glomerular Filtration Rate 92, BUN/Creatinine Ratio 13, Glucose Level 136H, Calcium Level 8.2L, Corrected Calcium 8.7, Total Bilirubin 0.5, Aspartate Amino Transf (AST/SGOT) 25, Alanine Aminotransferase (ALT/SGPT) 21, Alkaline Phosphatase 58, Total Protein 6.3L, Albumin 3.4 Imaging 2 postop views of the right knee dated 09/28/22 were reviewed from PACS and demonstrated femoral component to be slightly flexed, otherwise normal appearing postop TKA Assessment and Plan Assessment Right Knee Primary OA s/p R TKA Problem List R Knee Primary OA s/p R TKA Plan PT/OT DVT Prophylaxis Possible rehab Final Diagonsis R Knee Primary OA s/p R TKA Level of the visit: Level 3 (global) MALDONADO SEPULVEDA MD Sep 29, 2022 08:47
[2022-09-29] MEDS: CYCLOBENZAPRINE 10 MG (FLEXERIL) TAB PO PRN (09:29)
--- NOTE | 2022-09-29 09:53 | Physical Therapy Daily Note ---
PT Daily Note-Current Subjective Patient yells in pain with minimal movement. Pain meds requested. Pain Numeric Pain Scale: 10-Worst Possible Pain Location: Right Location Body Site: Knee Pain Description: Acute Section J - Health Conditions 1. Rarely or not at all 2. Occasionally 3. Frequently 4. Almost constantly 8. Unable to answer Pain Effect on Sleep: 3 Pain Interference with Therapy: 3 Pain Interference w/Day-to-Day: 3 Mental Status Patient Orientation: Normal For Age Attachments: IV Transfers SCALE: Activities may be completed with or without assistive devices. 2-Onghvktpil-ybpistm completes the activity by him/herself with no assistance from a helper. 5-Set-up or Clean-up Assistance-helper sets up or cleans up; patient completes activity. [place] assists only prior to or following the activity. 4-Supervision or Touching Assistance-helper provides verbal cues and/or touching/steadying and/or contact guard assistance as patient completes acti vity. Assistance may be provided throughout the activity or intermittently. 3-Partial/Moderate Assistance-helper does LESS THAN HALF the effort. [place] lifts, holds or supports trunk or limbs, but provides less than half the effort. 2-Substantial/Maximal Assistance-helper does MORE THAN HALF the effort. [place] lifts or holds trunk or limbs and provides more than half the effort. 8-Tndfcjrix-tvfzwc does ALL the effort. Patient does none of the effort to complete the activity. Or, the assistance of 2 or more helpers is required for the patient to complete the activity. If activity was not attempted, code reason: 7-Patient Refused. 9-Not Applicable-not attempted and the patient did not perform the activity before the current illness, exacerbation or injury. 10-Not Attempted due to Environmental Limitations-(lack of equipment, weather restraints, etc.). 88-Not Attempted due to Medical Conditions or Safety Concerns. Lying to Sitting/Side of Bed(Q: 3 Sit to Stand (QC): 3 Chair/Nku-vl-Cmpoh Xfer(QC): 3 Weight Bearing Right Lower Extremity: Right Weight Bearing/Tolerated Left Lower Extremity: Left Full Weight Bearing Gait Training Distance: 150' Walk 10 feet (QC): 4 Walk 50 ft with 2 Turns(QC): 4 Walk 150 ft (QC): 4 Gait Assistive Device: FWW slow, antalgic, minimal to no right knee flexion, step to gait sequence Exercises Supine Ex: Ankle pumps, Quad Set, Heel Slides, Straight leg raise Supine Reps: 15 (AAROM right LE) Seated Therapy Exercises: Long arc quads Seated Reps: 15 Assessment Patient continued to yell during session due to right knee pain. Patient up in recliner with needs met. Patient allow minimal right knee flexion due to pain (resistive with all ROM) PT Short Term Goals Short Term Goals Time Frame: Sep 29, 2022 PT Snf Goals Leaf Fat Scraper Goals PT Snf Goals Time Frame: Oct 17, 2022 Roll Left & Right (QC): 6 Sit to Lying (QC): 6 Lying-Sitting on Side/Bed(QC): 6 Sit to Stand (QC): 6 Chair/Wum-rn-Btzrw Xfer(QC): 6 Toilet Transfer (QC): 6 Car Transfer (QC): 6 Does the Patient Walk: Yes Walk 10 feet (QC): 6 Walk 50ft with 2 Turns (QC): 6 Walk 150 ft (QC): 6 Walking 10ft on Uneven Surface: 6 1 Step (curb) (QC): 4 4 Steps (QC): 4 12 Steps (QC): 4 Picking up an Object (QC): 6 PT Plan Treatment/Plan Treatment Plan: Continue Plan of Care Treatment Plan: Bed Mobility, Education, Functional Activity So, Functional Strength, Group Therapy, Gait, Safety, Therapeutic Exercise, Transfers Treatment Duration: Oct 23, 2022 Frequency: 11 times per week Estimated Hrs Per Day: .25 hour per day Patient and/or Family Agrees t: Yes Time Time In: 746 Time Out: 811 DATE: Sep 29, 2022 Total Billed Treatment Time: 25 Total Billed Treatment 1 visit GT 11 min EX 14 min HEYDI NICHOLE PT Sep 29, 2022 09:53
[2022-09-29 11:05] VITALS: BP 138/68
--- NOTE | 2022-09-29 11:45 | Occupational Therapy Eval ---
OT Evaluation-General/PLF Medical Diagnosis Admission Date Sep 28, 2022 at 12:54 Medical Diagnosis: Right TKA Onset Date: Sep 28, 2022 Therapy Diagnosis Therapy Diagnosis: weakness Height/Weight Height (Feet): 5 Height (Inches): 1 Weight (Pounds): 205 Precautions Precautions/Isolations: Fall Prevention, Standard Precautions Weight Bear Status Weight Bearing Restriction: Weight Bearing/Tolerated Location Restriction: R LE Referral Physician: Dr. Bunch Referral Reason: Activity Tolerance, Self Care, Evaluation/Treatment, Strengthening/ROM Medical History Current History s/p TKA Reviewed History: Yes Social History Home: Multilevel Current Living Status: Alone Entry Into Home: Stairs With Railing Steps Into Home: 4 Steps Inside Home: 15 ADL-Prior Level of Function SCALE: Activities may be completed with or without assistive devices. 4-Qajughnbjf-aohycor completes the activity by him/herself with no assistance from a helper. 5-Set-up or Clean-up Assistance-helper sets up or cleans up; patient completes activity. [place] assists only prior to or following the activity. 4-Supervision or Touching Assistance-helper provides verbal cues and/or touching/steadying and/or contact guard assistance as patient completes activ ity. Assistance may be provided throughout the activity or intermittently. 3-Partial/Moderate Assistance-helper does LESS THAN HALF the effort. [place] lifts, holds or supports trunk or limbs, but provides less than half the effort. 2-Substantial/Maximal Assistance-helper does MORE THAN HALF the effort. [place] lifts or holds trunk or limbs and provides more than half the effort. 1-Hudzmitsw-wyyvnc does ALL the effort. Patient does none of the effort to complete the activity. Or, the assistance of 2 or more helpers is required for the patient to complete the activity. If activity was not attempted, code reason: 7-Patient Refused. 9-Not Applicable-not attempted and the patient did not perform the activity before the current illness, exacerbation or injury. 10-Not Attempted due to Environmental Limitations-(lack of equipment, weather restraints, etc.). 88-Not Attempted due to Medical Conditions or Safety Concerns. Self Care: Independent Functional Cognition: Independent Drive Self: Yes OT Current Status Subjective Up in chair, agreeable to OT Pain Numeric Pain Scale: 6 Location Body Site: Knee (Patientt reports she did have pain meds recently and has had PT) Mental Status/Objective Patient Orientation: Person, Place, Time, Situation Attachments: IV Current Upper Extremity ROM BUE ROM WNLs, decreased forward flexion d/t excessive soft tissue Upper Extremity Strength BUE WFLS grossly ADL-Treatment Eating (QC): 6 Oral Hygiene (QC): 4 (standing at sink w/ FWW/IV pole) Shower/Bathe Self (QC): 7 Upper Body Dressing (QC): 4 Lower Body Dressing (QC): 3 On/Off Footwear (QC): 3 Toileting Hygiene (QC): 5 Education OT Patient Education: Correct positioning, Energy conservation, Modified ADL techniques, Progress toward Goal/Update tx plan, Purpose of tx/functional activities, Reviewed precautions, Rehab process, Safety issues, Transfer techniques, Use of adapted equipment Teaching Recipient: Patient Teaching Methods: Demonstration, Discussion Response to Teaching: Verbalize Understanding, Reinforcement Needed OT Detention Goals Detention Goals Oral Hygiene (QC): 6 Toileting Hygiene (QC): 6 Shower/Bathe Self (QC): 6 Upper Body Dressing (QC): 6 Lower Body Dressing (QC): 6 On/Off Footwear (QC): 6 1=Demonstrate adherence to instructed precautions during ADL tasks. 2=Patient will verbalize/demonstrate understanding of assistive device s/modifications for ADL. 3=Patient will improve strength/tolerance for activity to enable patient to perform ADL's. OT Education/Plan Problem List/Assessment Assessment: Decreased Activ Tolerance, Impaired Coordination, Impaired Funct Balance, Impaired Self-Care Skills Discharge Recommendations Plan/Recommendations: Continue POC Treatment Plan/Plan of Care Treatment,Training & Education: Yes Patient would benefit from OT for education, treatment and training to promote independence in ADL's, mobility, safety and/or upper extremity function for ADL's. Plan of Care: ADL Retraining, Functional Mobility, UE Funct Exercise/Act Comment Patient returned to recliner following toileting and hygiene at sink, OT provided meal ordering instruction, All needs met Treatment Duration: Oct 03, 2022 Frequency: 3 times per week (3-5 times per week) Estimated Hrs Per Day: .25 hour per day Rehab Potential: Good Time Start Time: 08:55 Stop Time: 09:16 DATE: Sep 29, 2022 Total Time Billed (hr/min): 21 Billed Treatment Time EVM 21 min ELISHA CRISTINA OT Sep 29, 2022 11:45
--- NOTE | 2022-09-29 12:06 | Progress Note ---
SUMIT VO 09/29/22 1206: Subjective Date Seen by a Provider: Sep 29, 2022 Time Seen by a Provider: 12:01 Subjective/Events-last exam Patient sitting up in chair. Hasn't recieving morning pain medication yet and is having quite a bit of break through pain. Patient would also like a heating pad for her lower back/sciatica pain if possible. Review of Systems General: No Chills, No Night Sweats HEENT: Head Aches; No Visual Changes Pulmonary: No Dyspnea, No Cough Cardiovascular: No: Chest Pain, Palpitations Gastrointestinal: Nausea (2/2 pain); No: Vomiting, Abdominal Pain Genitourinary: No Dysuria, No Frequency Musculoskeletal: back pain, leg pain Neurological: No: Weakness, Numbness Objective Exam Last Set of Vital Signs Vital Signs Date Time Temp Pulse Resp B/P (MAP) Pulse Ox O2 Delivery O2 Flow Rate FiO2 09/29/22 11:05 36.8 95 20 138/68 (91) 93 Room Air 09/29/22 08:00 0.00 Capillary Refill : Less Than 3 Seconds I&O Intake and Output 09/29/22 00:00 Intake Total 2690 ml Output Total 1875 ml Balance 815 ml Intake Oral 640 ml IV Total 2050 ml Output Urine Total 1875 ml Daily Weight Change No General: Alert, Oriented X3 HEENT: Atraumatic, EOMI Neck: Supple, No JVD Lungs: Clear to Auscultation, Normal Air Movement Heart: Regular Rate, No Murmurs Abdomen: Soft, No Tenderness Extremities: No Clubbing, No Cyanosis, Other (trace edema bilat) Neuro: Normal Speech, Normal Tone Psych/Mental Status: Mental Status NL, Mood NL Results Lab Laboratory Tests 09/29/22 05:00: White Blood Count 8.9, Red Blood Count 3.57L, Hemoglobin 10.6L, Hematocrit 33L, Mean Corpuscular Volume 92, Mean Corpuscular Hemoglobin 30, Mean Corpuscular Hemoglobin Concent 32, Red Cell Distribution Width 13.8, Platelet Count 271, Jade n Platelet Volume 10.4, Immature Granulocyte % (Auto) 0, Neutrophils (%) (Auto) 63, Lymphocytes (%) (Auto) 28, Monocytes (%) (Auto) 8, Eosinophils (%) (Auto) 0, Basophils (%) (Auto) 0, Neutrophils # (Auto) 5.6, Lymphocytes # (Auto) 2.5, Monocytes # (Auto) 0.7, Eosinophils # (Auto) 0.0, Basophils # (Auto) 0.0, Immature Granulocyte # (Auto) 0.0, Sodium Level 134L, Potassium Level 3.8, Chloride Level 104, Carbon Dioxide Level 22, Anion Gap 8, Blood Urea Nitrogen 10, Creatinine 0.76, Estimat Glomerular Filtration Rate 92, BUN/Creatinine Ratio 13, Glucose Level 136H, Calcium Level 8.2L, Corrected Calcium 8.7, Total Bilirubin 0.5, Aspartate Amino Transf (AST/SGOT) 25, Alanine Aminotransferase (ALT/SGPT) 21, Alkaline Phosphatase 58, Total Protein 6.3L, Albumin 3.4 Assessment/Plan Assessment/Plan Assess & Plan/Chief Complaint S/P R Total Knee Arthroplasty - Post-op day 2 - Pain management per Ortho - Use IS as often as tolerated - PT/OT - Up and ambulating when possible per Ortho orders - Will manage patient's medical needs as they arise during hospitalization Lumbago/Sciatica - Chronic - PT/OT - Pt uses heat and ice in outpatient. Ordered heating pad. - Will monitor as patient goes through PT/OT for R TKA. Obesity - Class Three - Patient does not follow with a PCP in the outpatient setting - Recommend patient establish with PCP w/ discharge - Will need various routine labs done in the outpatient setting for general screening DVT Prophylaxis: Per Ortho Dispo: Attempting to get approval for inpatient rehab unit. AALIYAH GATES DO 09/30/22 0442: Objective Exam General: Alert, Oriented X3 Lungs: Clear to Auscultation Heart: Regular Rate Psych/Mental Status: Mental Status NL Supervisory-Addendum Brief Verification & Attestation Participated in pt care: history, MDM, physical Personally performed: exam, history, MDM, supervision of care Care discussed with: Medical Student Procedures: n/a Results interpretation: Verified all documentation Verification and Attestation of Medical Student E/M Service A medical student performed and documented this service in my presence. I rev iewed and verified all information documented by the medical student and made modifications to such information, when appropriate. I personally performed the physical exam and medical decision making. Aaliyah Gates Sep 30, 2022,04:41 SUMIT VO Sep 29, 2022 12:06 AALIYAH GATES DO Sep 30, 2022 04:42
--- NOTE | 2022-09-29 14:18 | Physical Therapy Daily Note ---
PT Daily Note-Current Subjective Patient initially declined PT this p.m. Pain Section J - Health Conditions 1. Rarely or not at all 2. Occasionally 3. Frequently 4. Almost constantly 8. Unable to answer Pain Effect on Sleep: 3 Pain Interference with Therapy: 3 Pain Interference w/Day-to-Day: 3 Mental Status Patient Orientation: Normal For Age Transfers SCALE: Activities may be completed with or without assistive devices. 5-Tpyirakbrc-shgwzuz completes the activity by him/herself with no assistance from a helper. 5-Set-up or Clean-up Assistance-helper sets up or cleans up; patient completes activity. [place] assists only prior to or following the activity. 4-Supervision or Touching Assistance-helper provides verbal cues and/or touching/steadying and/or contact guard assistance as patient completes activity. Assistance may be provided throughout the activity or intermittently. 3-Partial/Moderate Assistance-helper does LESS THAN HALF the effort. [place] lifts, holds or supports trunk or limbs, but provides less than half the effort. 2-Substantial/Maximal Assistance-helper does MORE THAN HALF the effort. [place] lifts or holds trunk or limbs and provides more than half the effort. 9-Avetclrxu-iboclo does ALL the effort. Patient does none of the effort to complete the activity. Or, the assistance of 2 or more helpers is required for the patient to complete the activity. If activity was not attempted, code reason: 7-Patient Refused. 9-Not Applicable-not attempted and the patient did not perform the activity before the current illness, exacerbation or injury. 10-Not Attempted due to Environmental Limitations-(lack of equipment, weather restraints, etc.). 88-Not Attempted due to Medical Conditions or Safety Concerns. Sit to Lying (QC): 4 Lying to Sitting/Side of Bed(Q: 4 Sit to Stand (QC): 4 Weight Bearing Right Lower Extremity: Right Weight Bearing/Tolerated Left Lower Extremity: Left Full Weight Bearing Gait Training Distance: 150' Walk 10 feet (QC): 4 Walk 50 ft with 2 Turns(QC): 4 Walk 150 ft (QC): 4 Gait Assistive Device: FWW antalgic, slow, minimal right knee flexion with all mobility Exercises Supine Ex: Ankle pumps, Quad Set, Heel Slides, Straight leg raise Supine Reps: 15 (AAROM right LE) Seated Therapy Exercises: Long arc quads Seated Reps: 15 Assessment Patient resists all right knee ROM. Yells and moans during entire session. Patient progressing with treatment plan. Continue to increase activity. PT Short Term Goals Short Term Goals Time Frame: Sep 29, 2022 PT Compliance Tester Goals Compliance Tester Goals PT Compliance Tester Goals Time Frame: Oct 17, 2022 Roll Left & Right (QC): 6 Sit to Lying (QC): 6 Lying-Sitting on Side/Bed(QC): 6 Sit to Stand (QC): 6 Chair/Umd-rj-Ochaw Xfer(QC): 6 Toilet Transfer (QC): 6 Car Transfer (QC): 6 Does the Patient Walk: Yes Walk 10 feet (QC): 6 Walk 50ft with 2 Turns (QC): 6 Walk 150 ft (QC): 6 Walking 10ft on Uneven Surface: 6 1 Step (curb) (QC): 4 4 Steps (QC): 4 12 Steps (QC): 4 Picking up an Object (QC): 6 PT Plan Treatment/Plan Treatment Plan: Continue Plan of Care Treatment Plan: Bed Mobility, Education, Functional Activity So, Functional Strength, Group Therapy, Gait, Safety, Therapeutic Exercise, Transfers Treatment Duration: Oct 23, 2022 Frequency: 11 times per week Estimated Hrs Per Day: .25 hour per day Patient and/or Family Agrees t: Yes Time Time In: 1305 Time Out: 1328 DATE: Sep 29, 2022 Total Billed Treatment Time: 23 Total Billed Treatment 1 visit GT 12 min EX 11 min HEYDI NICHOLE PT Sep 29, 2022 14:18
[2022-09-29 15:56] VITALS: BP 108/72
[2022-09-29 19:53] VITALS: BP 141/63
[2022-09-29] MEDS: ONDANSETRON 4 MG/2 ML (SDV) Z0FRAN IV PRN (20:17)
[2022-09-30] VITALS: BP 136/74
[2022-09-30] MEDS: CYCLOBENZAPRINE 10 MG (FLEXERIL) TAB PO PRN ×2 (01:41→20:15)
[2022-09-30 04:00] VITALS: BP 129/60
[2022-09-30 05:42] LABS: BASOPHILS % (AUTO) 0 % (0-10); EOSINOPHILS % (AUTO) 0 % (0-10); HEMATOCRIT 31 % (35-52); HEMOGLOBIN 10.1 g/dL (11.5-16.0); LYMPHOCYTES # (AUTO) 3.2 10^3/uL (1.0-4.0); LYMPHOCYTES % (AUTO) 31 % (12-44); MEAN CORPUSCULAR HEMOGLOBIN 30 pg (25-34); MEAN CORPUSCULAR HGB CONC 32 g/dL (32-36); MEAN CORPUSCULAR VOLUME 92 fL (80-99); MONOCYTES # (AUTO) 0.7 10^3/uL (0.0-1.0); MONOCYTES % (AUTO) 7 % (0-12); NEUTROPHILS # (AUTO) 6.3 10^3/uL (1.8-7.8); NEUTROPHILS % (AUTO) 61 % (42-75); PLATELET COUNT 235 10^3/uL (130-400); WHITE BLOOD COUNT 10.3 10^3/uL (4.3-11.0)
[2022-09-30] MEDS: MULTIVIT W/MINERALS TAB (THERAGRAN M) PO SCH (05:54)
[2022-09-30 06:11] LABS: ALBUMIN 3.2 GM/DL (3.2-4.5); BILIRUBIN,TOTAL 0.5 MG/DL (0.1-1.0); CALCIUM 8.5 MG/DL (8.5-10.1); CREATININE SERUM 0.63 MG/DL (0.60-1.30); POTASSIUM 3.6 MMOL/L (3.6-5.0); TOTAL PROTEIN 6.2 GM/DL (6.4-8.2)
[2022-09-30 07:35] VITALS: BP 137/86
[2022-09-30] MEDS: DOCUSATE SODIUM 100 MG (COLACE) CAP PO SCH ×2 (08:05→20:15)
[2022-09-30] MEDS: CELECOXIB 100 MG (CeleBREX) CAP PO SCH ×2 (08:05→20:15)
[2022-09-30] MEDS: ASPIRIN E.C. 81 MG (ECOTRIN) TAB PO SCH ×2 (08:05→17:16)
--- NOTE | 2022-09-30 08:43 | Occ Therapy Progress Note ---
Therapy Progress Note OT arrived to treat patient for OT therapy session, patient reports intense headache and requests OT return at later time, Patient remains in bed w/ lights off and cold pack over eyes. Patient reports nurse has given her something for pain ELISHA CRISTINA OT Sep 30, 2022 08:43
[2022-09-30] MEDS ORDERED: ACETAMINOPHEN 500 MG TAB (TYLENOL) PO PRN (08:45)
--- NOTE | 2022-09-30 09:47 | Physical Therapy Daily Note ---
PT Daily Note-Current Subjective Patient lying supine in bed upon PT arrival, agreeable to treatment. Patient rates pain at 1/10 currently in left knee. Reports "They say I have sleep apnea and put oxygen on me last night." Upon PT arrival, patient O2 canula was wrapped around the top of her head and O2 sats were at 77%, Nurse notified. Pain Section J - Health Conditions 1. Rarely or not at all 2. Occasionally 3. Frequently 4. Almost constantly 8. Unable to answer Pain Effect on Sleep: 2 Pain Interference with Therapy: 2 Pain Interference w/Day-to-Day: 2 Mental Status Patient Orientation: Person, Place, Time, Situation Transfers SCALE: Activities may be completed with or without assistive devices. 9-Akmnkwxbna-mxwnlyz completes the activity by him/herself with no assistance from a helper. 5-Set-up or Clean-up Assistance-helper sets up or cleans up; patient completes activity. [place] assists only prior to or following the activity. 4-Supervision or Touching Assistance-helper provides verbal cues and/or touching/steadying and/or contact guard assistance as patient completes activity. Assistance may be provided throughout the activity or intermittently. 3-Partial/Moderate Assistance-helper does LESS THAN HALF the effort. [place] lifts, holds or supports trunk or limbs, but provides less than half the effort. 2-Substantial/Maximal Assistance-helper does MORE THAN HALF the effort. [place] lifts or holds trunk or limbs and provides more than half the effort. 2-Iyexucdvz-ifjcog does ALL the effort. Patient does none of the effort to complete the activity. Or, the assistance of 2 or more helpers is required for the patient to complete the activity. If activity was not attempted, code reason: 7-Patient Refused. 9-Not Applicable-not attempted and the patient did not perform the activity before the current illness, exacerbation or injury. 10-Not Attempted due to Environmental Limitations-(lack of equipment, weather restraints, etc.). 88-Not Attempted due to Medical Conditions or Safety Concerns. Roll Left & Right (QC): 4 Sit to Lying (QC): 4 Lying to Sitting/Side of Bed(Q: 4 Sit to Stand (QC): 4 Chair/Oek-ot-Ceaor Xfer(QC): 4 Toilet Transfer (QC): 4 Weight Bearing Right Lower Extremity: Right Weight Bearing/Tolerated Left Lower Extremity: Left Full Weight Bearing Gait Training Does the Patient Walk?: Yes Distance: 150 feet Walk 10 feet (QC): 4 Walk 50 ft with 2 Turns(QC): 4 Walk 150 ft (QC): 4 Gait Persons Needed: 1 Gait Assistive Device: FWW Exercises Supine Ex: Ankle pumps, Quad Set, Glut sets Supine Reps: 20 Seated Therapy Exercises: Long arc quads, Hamstring Curls Seated Reps: 20 Assessment Current Status: Fair Progress Patient tolerated treatment fair. Patient performs LE exercise as listed above in supine and after gait in the chair. Her sats frequently decreased on 2 L, especially while she was talking. Patient educated on breathing in through her nose and reports he nose is "stuffy". Patient O2 increased to 3 L during gait training. Patient ambulates 150 feet with FWW, with SBA and verbal cues for safety, progression, breathing. Patient in chair post treatment with all needs met, nursing notified, call light in hand. PT Short Term Goals Short Term Goals Time Frame: Sep 29, 2022 PT Senior Care Goals Weatherization And Housing Inspector Goals PT Weatherization And Housing Inspector Goals Time Frame: Oct 17, 2022 Roll Left & Right (QC): 6 Sit to Lying (QC): 6 Lying-Sitting on Side/Bed(QC): 6 Sit to Stand (QC): 6 Chair/Qej-lt-Rtwgk Xfer(QC): 6 Toilet Transfer (QC): 6 Car Transfer (QC): 6 Does the Patient Walk: Yes Walk 10 feet (QC): 6 Walk 50ft with 2 Turns (QC): 6 Walk 150 ft (QC): 6 Walking 10ft on Uneven Surface: 6 1 Step (curb) (QC): 4 4 Steps (QC): 4 12 Steps (QC): 4 Picking up an Object (QC): 6 PT Plan Treatment/Plan Treatment Plan: Continue Plan of Care Treatment Plan: Bed Mobility, Education, Functional Activity So, Functional Strength, Group Therapy, Gait, Safety, Therapeutic Exercise, Transfers Treatment Duration: Oct 23, 2022 Frequency: 11 times per week Estimated Hrs Per Day: .25 hour per day Patient and/or Family Agrees t: Yes Safety Risks/Education Patient Education: Gait Training, Transfer Techniques Teaching Recipient: Patient Teaching Methods: Demonstration, Discussion Response to Teaching: Verbalize Understanding, Return Demonstration Time Time In: 851 Time Out: 917 DATE: Sep 30, 2022 Total Billed Treatment Time: 26 Total Billed Treatment Visit, Jm, Ex KEMI TINSLEY PT Sep 30, 2022 09:47
--- NOTE | 2022-09-30 10:07 | Progress Note - Ortho ---
Progress Note Subjective Date of Exam 09/30/22 Chief Complaint POD #2 R TKA HPI/Events since last exam has had some difficulty with oxygen saturation, making progess with therapy, pain better in knee Review of Systems - Allergies: Coded Allergies: duloxetine HCl (Verified Allergy, Unknown, 09/21/22) UNKNOWN Home Meds Active Scripts Pseudoephedrine HCl (Sudafed) 30 Mg Tablet, 30 MG PO Q6H, #25 TAB Prov:GÉNESIS GARCIA 09/19/22 Reported Medications Ibuprofen (Motrin) 400 Mg Tablet, 1 EACH PO QID 03/04/13 Discontinued Scripts Amoxicillin/Potassium Clav (Amox Tr-K Clv 875-125 mg Tab) 875 Mg-125 Mg Tablet, 1 EACH PO BID for 10 Days, #20 TAB Prov:GÉNESIS GARCIA 09/19/22 Objective Exam R Knee: Dressing C/D/I, +DF of ankle, no s/s of DVT Vital Signs Vital Signs Date Time Temp Pulse Resp B/P (MAP) Pulse Ox O2 Delivery O2 Flow Rate FiO2 09/30/22 09:19 96 Nasal Cannula 2.00 09/30/22 07:35 36.1 96 18 137/86 (103) 97 Nasal Cannula 2.00 09/30/22 04:00 36.6 103 18 129/60 (83) 95 Nasal Cannula 2.00 09/30/22 00:00 36.7 96 18 136/74 (94) 92 Nasal Cannula 2.00 09/29/22 20:00 Room Air 09/29/22 19:53 36.7 93 18 141/63 (89) 92 Room Air 09/29/22 15:56 36.4 94 20 108/72 (84) 90 Room Air 09/29/22 11:05 36.8 95 20 138/68 (91) 93 Room Air I & O 09/30/22 07:00 Intake Total 1270 ml Balance 1270 ml Lab Results Laboratory Tests 09/30/22 05:05: White Blood Count 10.3, Red Blood Count 3.41L, Hemoglobin 10.1L, Hematocrit 31L, Mean Corpuscular Volume 92, Mean Corpuscular Hemoglobin 30, Mean Corpuscular Hemoglobin Concent 32, Red Cell Distribution Width 13.7, Platelet Count 235, Mean Platelet Volume 10.0, Immature Granulocyte % (Auto) 0, Neutrophils (%) (Auto) 61, Lymphocytes (%) (Auto) 31, Monocytes (%) (Auto) 7, Eosinophils (%) (Auto) 0, Basophils (%) (Auto) 0, Neutrophils # (Auto) 6.3, Lymphocytes # (Auto) 3.2, Monocytes # (Auto) 0.7, Eosinophils # (Auto) 0.0, Basophils # (Auto) 0.0, Immature Granulocyte # (Auto) 0.0, Sodium Level 137, Potassium Level 3.6, Chloride Level 104, Carbon Dioxide Level 23, Anion Gap 10, Blood Urea Nitrogen 7, Creatinine 0.63, Estimat Glomerular Filtration Rate 105, BUN/Creatinine Ratio 11, Glucose Level 120H, Calcium Level 8.5, Corrected Calcium 9.1, Total Bilirubin 0.5, Aspartate Amino Transf (AST/SGOT) 20, Alanine Aminotransferase (ALT/SGPT) 18, Alkaline Phosphatase 58, Total Protein 6.2L, Albumin 3.2 Assessment and Plan Assessment Right Knee Primary Osteoarthritis s/p TKA Problem List Right Knee Primary Osteoarthritis s/p TKA Plan PT/OT DVT Prophylaxis Patient denied IRF due to insurance Will plan for D/C Home tomorrow Final Diagonsis Right Knee Primary Osteoarthritis s/p TKA Level of the visit: Level 3 (global) MALDONADO SEPULVEDA MD Sep 30, 2022 10:07
[2022-09-30 11:15] VITALS: BP 136/63
--- NOTE | 2022-09-30 11:26 | Occupational Ther Daily Note ---
OT Current Status-Daily Note Subjective OT returned and assist in toileting and 02 monitoring, 02 is off. Sat 77% RN notified Mental Status/Objective Patient Orientation: Person Attachments: IV, Oxygen (increased 02 during session and returned to 2 lt NC) ADL-Treatment Therapy Code Descriptions/Definitions Functional [place] Measure: 0=Not Assessed/NA 4=Minimal Assistance 1=Total Assistance 5=Supervision or Setup 2=Maximal Assistance 6=Modified [place] 3=Moderate Assistance 7=Complete IndependenceSCALE: Activities may be completed with or without assistive devices. 3-Wvxbrhqerl-dgpkzon completes the activity by him/herself with no assistance from a helper. 5-Set-up or Clean-up Assistance-helper sets up or cleans up; patient completes activity. [place] assists only prior to or following the activity. 4-Supervision or Touching Assistance-helper provides verbal cues and/or touching/steadying and/or contact guard assistance as patient completes activity. Assistance may be provided throughout the activity or intermittently. 3-Partial/Moderate Assistance-helper does LESS THAN HALF the effort. [place] lifts, holds or supports trunk or limbs, but provides less than half the effort. 2-Substantial/Maximal Assistance-helper does MORE THAN HALF the effort. [place] lifts or holds trunk or limbs and provides more than half the effort. 3-Xdrnpcbww-zaarkj does ALL the effort. Patient does none of the effort to complete the activity. Or, the assistance of 2 or more helpers is required for the patient to complete the activity. If activity was not attempted, code reason: 7-Patient Refused. 9-Not Applicable-not attempted and the patient did not perform the activity before the current illness, exacerbation or injury. 10-Not Attempted due to Environmental Limitations-(lack of equipment, weather restraints, etc.). 88-Not Attempted due to Medical Conditions or Safety Concerns. Eating (QC): 6 Oral Hygiene (QC): 5 Shower/Bathe Self (QC): 7 (declined, knee wrapped nd dressing will change today) Upper Body Dressing (QC): 4 Lower Body Dressing (QC): 3 On/Off Footwear: 3 Toileting Hygiene (QC): 4 Toilet Transfer (QC): 4 Other Treatment 02 education for use, monitoring and PLB Education OT Patient Education: Correct positioning, Modified ADL techniques, Progress toward Goal/Update tx plan, Purpose of tx/functional activities, Reviewed precautions, Rehab process, Safety issues, Transfer techniques, Use of adapted equipment Teaching Recipient: Patient Teaching Methods: Demonstration, Discussion Response to Teaching: Verbalize Understanding, Reinforcement Needed OT [facility] Goals Reach Lift Truck Driver Goals Oral Hygiene (QC): 6 Toileting Hygiene (QC): 6 Shower/Bathe Self (QC): 6 Upper Body Dressing (QC): 6 Lower Body Dressing (QC): 6 On/Off Footwear (QC): 6 1=Demonstrate adherence to instructed precautions during ADL tasks. 2=Patient will verbalize/demonstrate understanding of assistive devices/ modifications for ADL. 3=Patient will improve strength/tolerance for activity to enable patient to perform ADL's. OT Education/Plan Problem List/Assessment Assessment: Decreased Activ Tolerance, Decreased UE Strength, Impaired Coordination, Impaired Funct Balance, Impaired Self-Care Skills Discharge Recommendations Plan/Recommendations: Continue POC Treatment Plan/Plan of Care Treatment,Training & Education: Yes Patient would benefit from OT for education, treatment and training to promote independence in ADL's, mobility, safety and/or upper extremity function for ADL's. Plan of Care: ADL Retraining, Functional Mobility, UE Funct Exercise/Act Treatment Duration: Oct 03, 2022 Frequency: 3 times per week (3-5 times per week) Estimated Hrs Per Day: .25 hour per day Rehab Potential: Good Remains up in chair following toileting, all needs met Time Start Time: 08:52 Stop Time: 09:15 DATE: Sep 30, 2022 Total Time Billed (hr/min): 23 Billed Treatment Time ADL 1, FA 1 23min ELISHA CRISTINA OT Sep 30, 2022 11:26
--- NOTE | 2022-09-30 13:57 | Progress Note ---
SUMIT VO 09/30/22 1357: Subjective Date Seen by a Provider: Sep 30, 2022 Time Seen by a Provider: 13:52 Subjective/Events-last exam Patient being seen in follow up for R TKA. Patient had an episode of hypoxia overnight requiring oxygen with some tachycardia. Patient states she did not feel short of breath and did not have chest pain. Patient has remained borderline tachycardic since this episdoe. Patient denies any headache, vision change, chest pain, shortness of breath at this time. Patient was not oxygen at the time I saw her, but she did go back on it later in the day. patient was denied for IRF by her insurance. Will have to have SS discuss with patient dispo plans. Review of Systems General: No Chills, No Night Sweats HEENT: No Head Aches, No Visual Changes Pulmonary: No Dyspnea, No Cough Cardiovascular: No: Chest Pain, Palpitations Gastrointestinal: No: Nausea, Vomiting, Abdominal Pain Genitourinary: No Dysuria, No Frequency Musculoskeletal: back pain, leg pain Neurological: No: Weakness, Numbness Objective Exam Last Set of Vital Signs Vital Signs Date Time Temp Pulse Resp B/P (MAP) Pulse Ox O2 Delivery O2 Flow Rate FiO2 09/30/22 11:15 37.0 101 16 136/63 (87) 90 Nasal Cannula 2.00 Capillary Refill : Less Than 3 Seconds I&O Intake and Output 09/30/22 00:00 Intake Total 1250 ml Output Total 350 ml Balance 900 ml Intake Oral 1250 ml Output Urine Total 350 ml # Voids 3 General: Alert, Oriented X3 HEENT: Atraumatic, EOMI Neck: Supple, No JVD Lungs: Clear to Auscultation, Normal Air Movement Heart: Regular Rate, No Murmurs Abdomen: Normal Bowel Sounds, Soft Extremities: Normal Pulses, No Tenderness/Swelling Neuro: Normal Speech, Normal Tone Psych/Mental Status: Mental Status NL, Mood NL Results Lab Laboratory Tests 09/30/22 05:05: White Blood Count 10.3, Red Blood Count 3.41L, Hemoglobin 10.1L, Hematocrit 31L, Mean Corpuscular Volume 92, Mean Corpuscular Hemoglobin 30, Mean Corpuscular Hemoglobin Concent 32, Red Cell Distribution Width 13.7, Platelet Count 235, Mean Platelet Volume 10.0, Immature Granulocyte % (Auto) 0, Neutrophils (%) (Auto) 61, Lymphocytes (%) (Auto) 31, Monocytes (%) (Auto) 7, Eosinophils (%) (Auto) 0, Basophils (%) (Auto) 0, Neutrophils # (Auto) 6.3, Lymphocytes # (Auto) 3.2, Monocytes # (Auto) 0.7, Eosinophils # (Auto) 0.0, Basophils # (Auto) 0.0, Immature Granulocyte # (Auto) 0.0, Sodium Level 137, Potassium Level 3.6, Chloride Level 104, Carbon Dioxide Level 23, Anion Gap 10, Blood Urea Nitrogen 7, Creatinine 0.63, Estimat Glomerular Filtration Rate 105, BUN/Creatinine Ratio 11, Glucose Level 120H, Calcium Level 8.5, Corrected Calcium 9.1, Total Bilirubin 0.5, Aspartate Amino Transf (AST/SGOT) 20, Alanine Aminotransferase (ALT/SGPT) 18, Alkaline Phosphatase 58, Total Protein 6.2L, Albumin 3.2, Thyroid Stimulating Hormone (TSH) 0.24L Assessment/Plan Assessment/Plan Assess & Plan/Chief Complaint S/P R Total Knee Arthroplasty - Post-op day 3 - Pain management per Ortho - Use IS as often as tolerated - PT/OT - Up and ambulating when possible per Ortho orders - Will manage patient's medical needs as they arise during hospitalization Hypoxic Episode - Feel like there is probably some underlying undiagnosed FRANNIE along with opioid medications decreasing respiratory drive leading to hypoxic episode. - Feel that PE/DVT is less likely at this time. - Patient denied feeling SOB or any chest pain. - Will order an O2 study overnight, with plans for outpatient sleep study. - Oxygen as needed, will wean as appropriate, baseline is RA - Will continue to vigilantly monitor Lumbago/Sciatica - Chronic - PT/OT - Pt uses heat and ice in outpatient. Ordered heating pad. - Will monitor as patient goes through PT/OT for R TKA. Obesity - Class Three - Patient does not follow with a PCP in the outpatient setting - Recommend patient establish with PCP w/ discharge - Will need various routine labs done in the outpatient setting for general screening - Patient has asked for referral to PCP in [place] for outpatient management. States she would like to be seen regularly again. DVT Prophylaxis: Per Ortho Dispo: Awaiting SS visit with patient -> denied IRF placement AALIYAH GATES DO 3/8/23 2050: Supervisory-Addendum Brief Verification & Attestation Participated in pt care: history, MDM, physical Personally performed: exam, history, MDM, supervision of care Care discussed with: Medical Student Procedures: n/a Results interpretation: Verified all documentation Verification and Attestation of Medical Student E/M Service A medical student performed and documented this service in my presence. I reviewed and verified all information documented by the medical student and made modifications to such information, when appropriate. I personally performed the physical exam and medical decision making. Aaliyah Gates, Sep 30, 2022,20:50 SUMIT VO Sep 30, 2022 13:57 AALIYAH GATES DO Sep 30, 2022 20:50
--- NOTE | 2022-09-30 14:46 | Physical Therapy Daily Note ---
PT Daily Note-Current Subjective Patient asleep in chair upon PT arrival. O2 sats at 74% upon PT arrival with O2 cannula donned and O2 at 1.5 L. Nurse notified Pain Section J - Health Conditions 1. Rarely or not at all 2. Occasionally 3. Frequently 4. Almost constantly 8. Unable to answer Pain Effect on Sleep: 2 Pain Interference with Therapy: 2 Pain Interference w/Day-to-Day: 2 Mental Status Patient Orientation: Person, Place, Time, Situation Transfers SCALE: Activities may be completed with or without assistive devices. 2-Ipnyjbjemp-atflgvc completes the activity by him/herself with no assistance from a helper. 5-Set-up or Clean-up Assistance-helper sets up or cleans up; patient completes activity. [place] assists only prior to or following the activity. 4-Supervision or Touching Assistance-helper provides verbal cues and/or touching/steadying and/or contact guard assistance as patient completes activity. Assistance may be provided throughout the activity or intermittently. 3-Partial/Moderate Assistance-helper does LESS THAN HALF the effort. Melvin lifts, holds or supports trunk or limbs, but provides less than half the effort. 2-Substantial/Maximal Assistance-helper does MORE THAN HALF the effort. Melvin lifts or holds trunk or limbs and provides more than half the effort. 5-Erarmgjph-hmsrod does ALL the effort. Patient does none of the effort to complete the activity. Or, the assistance of 2 or more helpers is required for the patient to complete the activity. If activity was not attempted, code reason: 7-Patient Refused. 9-Not Applicable-not attempted and the patient did not perform the activity before the current illness, exacerbation or injury. 10-Not Attempted due to Environmental Limitations-(lack of equipment, weather restraints, etc.). 88-Not Attempted due to Medical Conditions or Safety Concerns. Roll Left & Right (QC): 3 Sit to Lying (QC): 3 Lying to Sitting/Side of Bed(Q: 3 Sit to Stand (QC): 4 Chair/Fja-rv-Yutst Xfer(QC): 4 Weight Bearing Right Lower Extremity: Right Weight Bearing/Tolerated Left Lower Extremity: Left Full Weight Bearing Gait Training Does the Patient Walk?: Yes Distance: 170 feet Walk 10 feet (QC): 4 Walk 50 ft with 2 Turns(QC): 4 Walk 150 ft (QC): 4 Gait Persons Needed: 1 Gait Assistive Device: FWW ( ) Assessment Current Status: Fair Progress Patient tolerated treatment fair. Her sats frequently decreased on 2 L, especially while she was talking. Patient performs all transfers with CGA and bed mobility with min A for right LE. Patient O2 increased to 3 L during gait training. Patient ambulates 170 feet with FWW, with SBA and verbal cues for sa fety, progression, breathing. Patient in bed post treatment with all needs met, nursing notified, call light in hand. PT Short Term Goals Short Term Goals Time Frame: Sep 29, 2022 PT Veterinary Inspector Goals Detention Goals PT Veterinary Inspector Goals Time Frame: Oct 17, 2022 Roll Left & Right (QC): 6 Sit to Lying (QC): 6 Lying-Sitting on Side/Bed(QC): 6 Sit to Stand (QC): 6 Chair/Zvj-lm-Qpols Xfer(QC): 6 Toilet Transfer (QC): 6 Car Transfer (QC): 6 Does the Patient Walk: Yes Walk 10 feet (QC): 6 Walk 50ft with 2 Turns (QC): 6 Walk 150 ft (QC): 6 Walking 10ft on Uneven Surface: 6 1 Step (curb) (QC): 4 4 Steps (QC): 4 12 Steps (QC): 4 Picking up an Object (QC): 6 PT Plan Treatment/Plan Treatment Plan: Continue Plan of Care Treatment Plan: Bed Mobility, Education, Functional Activity So, Functional Strength, Group Therapy, Gait, Safety, Therapeutic Exercise, Transfers Treatment Duration: Oct 23, 2022 Frequency: 11 times per week Estimated Hrs Per Day: .25 hour per day Patient and/or Family Agrees t: Yes Safety Risks/Education Patient Education: Gait Training, Transfer Techniques Teaching Recipient: Patient Teaching Methods: Demonstration Response to Teaching: Verbalize Understanding, Return Demonstration Time Time In: 1421 Time Out: 1440 DATE: Sep 30, 2022 Total Billed Treatment Time: 19 Total Billed Treatment Visit, KEMI Holm PT Sep 30, 2022 14:46
[2022-09-30 15:45] VITALS: BP 147/70
[2022-09-30 19:00] VITALS: BP 142/82
[2022-10-01] VITALS: BP 136/85
[2022-10-01 04:00] VITALS: BP 146/82
[2022-10-01] MEDS: MULTIVIT W/MINERALS TAB (THERAGRAN M) PO SCH (05:22)
[2022-10-01 05:40] LABS: BASOPHILS % (AUTO) 0 % (0-10); EOSINOPHILS # (AUTO) 0.2 10^3/uL (0.0-0.3); EOSINOPHILS % (AUTO) 2 % (0-10); HEMATOCRIT 33 % (35-52); HEMOGLOBIN 10.9 g/dL (11.5-16.0); LYMPHOCYTES # (AUTO) 3.2 10^3/uL (1.0-4.0); LYMPHOCYTES % (AUTO) 33 % (12-44); MEAN CORPUSCULAR HEMOGLOBIN 30 pg (25-34); MEAN CORPUSCULAR HGB CONC 33 g/dL (32-36); MEAN CORPUSCULAR VOLUME 91 fL (80-99); MEAN PLATELET VOLUME 9.7 fL (9.0-12.2); MONOCYTES # (AUTO) 0.5 10^3/uL (0.0-1.0); MONOCYTES % (AUTO) 5 % (0-12); NEUTROPHILS # (AUTO) 5.8 10^3/uL (1.8-7.8); NEUTROPHILS % (AUTO) 60 % (42-75); PLATELET COUNT 242 10^3/uL (130-400); WHITE BLOOD COUNT 9.7 10^3/uL (4.3-11.0)
[2022-10-01 06:04] LABS: ALBUMIN 3.3 GM/DL (3.2-4.5); POTASSIUM 3.7 MMOL/L (3.6-5.0)
[2022-10-01 06:05] LABS: CALCIUM 8.6 MG/DL (8.5-10.1)
[2022-10-01 06:07] LABS: TOTAL PROTEIN 6.4 GM/DL (6.4-8.2)
[2022-10-01 06:09] LABS: BILIRUBIN,TOTAL 0.4 MG/DL (0.1-1.0)
[2022-10-01 06:10] LABS: CREATININE SERUM 0.59 MG/DL (0.60-1.30)
[2022-10-01 07:49] VITALS: BP 148/77
--- NOTE | 2022-10-01 08:38 | Occupational Ther Daily Note ---
OT Current Status-Daily Note Subjective UP in bed on arrival, attempting to exit bed w/ call light activated and 02 monitor attached, 02 not on. Patient request toileting assistance Mental Status/Objective Patient Orientation: Person, Place, Situation Attachments: Oxygen Patient is spontaneous and impulsive to exit bed w/o FWW in reach, 02 monitor attached and removed 02 NC d/t she reports she does not need it. ADL-Treatment Therapy Code Descriptions/Definitions Functional [place] Measure: 0=Not Assessed/NA 4=Minimal Assistance 1=Total Assistance 5=Supervision or Setup 2=Maximal Assistance 6=Modified [place] 3=Moderate Assistance 7=Complete IndependenceSCALE: Activities may be completed with or without assistive devices. 3-Bxojlakopa-jxpgxrg completes the activity by him/herself with no assistance from a helper. 5-Set-up or Clean-up Assistance-helper sets up or cleans up; patient completes activity. [place] assists only prior to or following the activity. 4-Supervision or Touching Assistance-helper provides verbal cues and/or touching/steadying and/or contact guard assistance as patient completes activity. Assistance may be provided throughout the activity or intermittently. 3-Partial/Moderate Assistance-helper does LESS THAN HALF the effort. [place] lifts, holds or supports trunk or limbs, but provides less than half the effort. 2-Substantial/Maximal Assistance-helper does MORE THAN HALF the effort. [place] lifts or holds trunk or limbs and provides more than half the effort. 3-Szlljwnxl-mqdojd does ALL the effort. Patient does none of the effort to complete the activity. Or, the assistance of 2 or more helpers is required for the patient to complete the activity. If activity was not attempted, code reason: 7-Patient Refused. 9-Not Applicable-not attempted and the patient did not perform the activity before the current illness, exacerbation or injury. 10-Not Attempted due to Environmental Limitations-(lack of equipment, weather restraints, etc.). 88-Not Attempted due to Medical Conditions or Safety Concerns. Eating (QC): 6 Oral Hygiene (QC): 5 (Requires VC for safety with use of FWW and positioning to structures and ADL surfaces.) Shower/Bathe Self (QC): 7 (refused shower, OT offerred sponge bathing and hair/face grooming, patient declined and said "I am not worried about it") Upper Body Dressing (QC): 6 Lower Body Dressing (QC): 4 (Dificulty lifting R LE from floor to don socks, decreaased trunk flexibility, OT recommended armature winder repairer and ADs for sock, ag reports she had a hard time with socks before and will just use slip on shoes) On/Off Footwear: 5 Toileting Hygiene (QC): 5 Toilet Transfer (QC): 5 Education OT Patient Education: Correct positioning, Energy conservation, Modified ADL techniques, Progress toward Goal/Update tx plan, Purpose of tx/functional activities, Reviewed precautions, Rehab process, Safety issues, Transfer techn iques, Use of adapted equipment Teaching Recipient: Patient Teaching Methods: Demonstration, Discussion Response to Teaching: Verbalize Understanding OT Rn Orthopaedic Goals Intermediate Goals Oral Hygiene (QC): 6 Toileting Hygiene (QC): 6 Shower/Bathe Self (QC): 6 Upper Body Dressing (QC): 6 Lower Body Dressing (QC): 6 On/Off Footwear (QC): 6 1=Demonstrate adherence to instructed precautions during ADL tasks. 2=Patient will verbalize/demonstrate understanding of assistive devices/modifications for ADL. 3=Patient will improve strength/tolerance for activity to enable patient to perform ADL's. OT Education/Plan Problem List/Assessment Assessment: Decreased Activ Tolerance, Impaired Self-Care Skills (safety cues) Discharge Recommendations Plan/Recommendations: Continue POC Equpiment Recommendations-D/C: Watch Train Assembler, Sock Aide Treatment Plan/Plan of Care Treatment,Training & Education: Yes Patient would benefit from OT for education, treatment and training to promote independence in ADL's, mobility, safety and/or upper extremity function for ADL's. Plan of Care: ADL Retraining, Functional Mobility, UE Funct Exercise/Act Treatment Duration: Oct 03, 2022 Frequency: 3 times per week (3-5 times per week) Estimated Hrs Per Day: .25 hour per day Rehab Potential: Good Time Start Time: 08:15 Stop Time: 08:32 DATE: Oct 01, 2022 Total Time Billed (hr/min): 17 Billed Treatment Time 1 ADL 17 min ELISHA CRISTINA OT Oct 01, 2022 08:38
[2022-10-01] MEDS: CELECOXIB 100 MG (CeleBREX) CAP PO SCH (09:04)
[2022-10-01] MEDS: ASPIRIN E.C. 81 MG (ECOTRIN) TAB PO SCH ×2 (09:04→17:05)
[2022-10-01] MEDS: DOCUSATE SODIUM 100 MG (COLACE) CAP PO SCH (09:04)
--- NOTE | 2022-10-01 09:54 | Physical Therapy Daily Note ---
PT Daily Note-Current Subjective Patient agrees to PT. She states she is going home today. Pain Numeric Pain Scale: 7 Location: Right Location Body Site: Knee Pain Description: Acute Section J - Health Conditions 1. Rarely or not at all 2. Occasionally 3. Frequently 4. Almost constantly 8. Unable to answer Pain Effect on Sleep: 2 Pain Interference with Therapy: 2 Pain Interference w/Day-to-Day: 2 Transfers SCALE: Activities may be completed with or without assistive devices. 0-Rcxpwzxiju-ouqwwus completes the activity by him/herself with no assistance from a helper. 5-Set-up or Clean-up Assistance-helper sets up or cleans up; patient completes activity. [place] assists only prior to or following the activity. 4-Supervision or Touching Assistance-helper provides verbal cues and/or touching/steadying and/or contact guard assistance as patient completes activity. Assistance may be provided throughout the activity or intermittently. 3-Partial/Moderate Assistance-helper does LESS THAN HALF the effort. [place] lifts, holds or supports trunk or limbs, but provides less than half the effort. 2-Substantial/Maximal Assistance-helper does MORE THAN HALF the effort. [place] lifts or holds trunk or limbs and provides more than half the effort. 9-Fcxuzrtya-bomiow does ALL the effort. Patient does none of the effort to complete the activity. Or, the assistance of 2 or more helpers is required for the patient to complete the activity. If activity was not attempted, code reason: 7-Patient Refused. 9-Not Applicable-not attempted and the patient did not perform the activity before the current illness, exacerbation or injury. 10-Not Attempted due to Environmental Limitations-(lack of equipment, weather restraints, etc.). 88-Not Attempted due to Medical Conditions or Safety Concerns. Sit to Stand (QC): 5 Weight Bearing Right Lower Extremity: Right Weight Bearing/Tolerated Left Lower Extremity: Left Full Weight Bearing Gait Training Distance: 200' Walk 10 feet (QC): 5 Walk 50 ft with 2 Turns(QC): 5 Walk 150 ft (QC): 5 Gait Assistive Device: FWW functional gait sequence/no right knee flexion with gait with FWW/VC's for right knee flexion to "normalize" gait, however, patient did not perform and said "no" Exercises Seated Therapy Exercises: Ankle pumps, Long arc quads Seated Reps: 15 (x 2 sets) Assessment Patient ceased treatment and remains up in recliner with needs met. Patient continues to resist right knee flexion due to pain and swelling. PT to continue to increase activity as tolerated/allowed by patient. PT Short Term Goals Short Term Goals Time Frame: Sep 29, 2022 PT Mcc Goals Electrotype Molder Goals PT Electrotype Molder Goals Time Frame: Oct 17, 2022 Roll Left & Right (QC): 6 Sit to Lying (QC): 6 Lying-Sitting on Side/Bed(QC): 6 Sit to Stand (QC): 6 Chair/Hed-av-Nlwyr Xfer(QC): 6 Toilet Transfer (QC): 6 Car Transfer (QC): 6 Does the Patient Walk: Yes Walk 10 feet (QC): 6 Walk 50ft with 2 Turns (QC): 6 Walk 150 ft (QC): 6 Walking 10ft on Uneven Surface: 6 1 Step (curb) (QC): 4 4 Steps (QC): 4 12 Steps (QC): 4 Picking up an Object (QC): 6 PT Plan Treatment/Plan Treatment Plan: Continue Plan of Care Treatment Plan: Bed Mobility, Education, Functional Activity So, Functional Strength, Group Therapy, Gait, Safety, Therapeutic Exercise, Transfers Treatment Duration: Oct 23, 2022 Frequency: 11 times per week Estimated Hrs Per Day: .25 hour per day Patient and/or Family Agrees t: Yes Time Time In: 845 Time Out: 859 DATE: Oct 01, 2022 Total Billed Treatment Time: 14 Total Billed Treatment 1 visit FA 14 min HEYDI NICHOLE PT Oct 01, 2022 09:54
--- NOTE | 2022-10-01 10:19 | Progress Note ---
SUMIT VO 10/01/22 1019: Subjective Date Seen by a Provider: Oct 01, 2022 Time Seen by a Provider: 10:12 Subjective/Events-last exam Patient is being seen in follow up for R TKA Patient sitting in chair sleeping. States she has no real complaints at this time. Is not wearing oxygen. When ask how overnight O2 study went she stated " I don't need oxygen" patient had a 224 second period o/n of 77% O2. Hospital Course: 57 year old female who [facility] and was admitted for standard recovery after this procedure. Initial plans were for patient to then go to [facility], but this was denied by patient's insurance. Patient was noted to have some episodes of hypoxia overnight during her stay and a overnight O2 study was ordered. Patient had an episode of 77% O2 sats for 224 seconds during this study. Patient does not currently have a PCP in the area and will need to establish with one upon discharge for close follow-up. Patient will need routine lab work and preventative health screening along with an outpatient sleep study. For R TKA, plan is for patient to be discharged home with home PT and home health. Patient will likely need a walker and home O2 at discharge. With home O2 testing pending. Review of Systems General: No Chills, No Night Sweats HEENT: No Head Aches, No Visual Changes Pulmonary: No Dyspnea, No Cough Cardiovascular: No: Chest Pain, Palpitations Gastrointestinal: No: Nausea, Vomiting, Abdominal Pain Genitourinary: No Dysuria, No Frequency Neurological: No: Weakness, Numbness Objective Exam Last Set of Vital Signs Vital Signs Date Time Temp Pulse Resp B/P (MAP) Pulse Ox O2 Delivery O2 Flow Rate FiO2 10/01/22 08:00 96 Room Air 10/01/22 07:49 36.3 99 17 148/77 (100) 10/01/22 04:00 2.00 Capillary Refill : Less Than 3 Seconds I&O Intake and Output 10/01/22 00:00 Intake Total 1860 ml Balance 1860 ml Intake Oral 1860 ml # Voids 7 General: Alert, Oriented X3 HEENT: Atraumatic, EOMI Neck: Supple, No JVD Lungs: Clear to Auscultation, Other (diminished air movement in bilateral lower lobes) Heart: No Murmurs, Other (tachcardic, regular rhythm ) Abdomen: Normal Bowel Sounds, Soft Extremities: No Clubbing, No Cyanosis, Other (trace edema bilaterally ) Neuro: Normal Speech, Normal Tone Psych/Mental Status: Mental Status NL, Mood NL Results Lab Laboratory Tests 10/01/22 05:00: White Blood Count 9.7, Red Blood Count 3.62L, Hemoglobin 10.9L, Hematocrit 33L, Mean Corpuscular Volume 91, Mean Corpuscular Hemoglobin 30, Mean Corpuscular Hemoglobin Concent 33, Red Cell Distribution Width 13.2, Platelet Count 242, Mean Platelet Volume 9.7, Immature Granulocyte % (Auto) 0, Neutrophils (%) (Auto) 60, Lymphocytes (%) (Auto) 33, Monocytes (%) (Auto) 5, Eosinophils (%) (Auto) 2, Basophils (%) (Auto) 0, Neutrophils # (Auto) 5.8, Lymphocytes # (Auto) 3.2, Monocytes # (Auto) 0.5, Eosinophils # (Auto) 0.2, Basophils # (Auto) 0.0, Immature Granulocyte # (Auto) 0.0, Sodium Level 138, Potassium Level 3.7, Chloride Level 102, Carbon Dioxide Level 27, Anion Gap 9, Blood Urea Nitrogen 8, Creatinine 0.59L, Estimat Glomerular Filtration Rate 106, BUN/Creatinine Ratio 14, Glucose Level 101, Calcium Level 8.6, Corrected Calcium 9.2, Total Bilirubin 0.4, Aspartate Amino Transf (AST/SGOT) 20, Alanine Aminotransferase (ALT/SGPT) 17, Alkaline Phosphatase 58, Total Protein 6.4, Albumin 3.3 Assessment/Plan Assessment/Plan Assess & Plan/Chief Complaint S/P R Total Knee Arthroplasty - Post-op day 4 - Pain management per Ortho - Use IS as often as tolerated - PT/OT; up and ambulating as often as possible Hypoxic Episode - Feel like there is probably some underlying undiagnosed FRANNIE +/- Pickwickian Syndrome along with opioid medications decreasing respiratory drive - Feel that PE/DVT is less likely at this time - Patient denied feeling SOB or any chest pain - O/N O2 study showed 224 second period 77% O2. Needs outpatient sleep study. - Oxygen as needed, will wean as appropriate - Will continue to vigilantly monitor Lumbago/Sciatica - Chronic - PT/OT - Pt uses heat and ice in outpatient. Ordered heating pad. - Will monitor as patient goes through PT/OT for R TKA. Obesity - Class Three - Recommend patient establish with PCP w/ discharge - Will need various routine labs done in the outpatient setting for general screening - Patient has asked for referral to PCP in [place] for outpatient management. States she would like to be seen regularly again. DVT Prophylaxis: Per Ortho Dispo: Plan is to discharge home with home health and home physical therapy AALIYAH GATES DO 10/02/22 0508: Supervisory-Addendum Brief Verification & Attestation Participated in pt care: history, MDM, physical Personally performed: exam, history, MDM, supervision of care Care discussed with: Medical Student Procedures: n/a Results interpretation: Verified all documentation Verification and Attestation of Medical Student E/M Service A medical student performed and documented this service in my presence. I reviewed and verified all information documented by the medical student and made modifications to such information, when appropriate. I personally performed the physical exam and medical decision making. Aaliyah Gates Oct 02, 2022,05:08 SUMIT VO Oct 01, 2022 10:19 AALIYAH GATES DO Oct 02, 2022 05:08
[2022-10-01] MEDS ORDERED: OXYC10TA7 PO (11:19)
[2022-10-01] MEDS ORDERED: ASPI-1238 PO (11:19)
[2022-10-01] MEDS ORDERED: CYCL10TA25 PO (11:19)
--- NOTE | 2022-10-01 11:24 | D/C HH Face to Face Order ---
D/C Face to Face Orders Instructions for Patient Via [facility], Patient Instructions/FollowUp: 10/13/[address] Bunch. WBAT on Right leg. Walker for Assist. Dry Dressing Daily. Physician to follow Patient: Javad Bunch Discharge Diet for Home: Regular Diet Patient Data-Allergies,Ht & Wt Patient Allergies: Coded Allergies: duloxetine HCl (Verified Allergy, Unknown, 09/21/22) UNKNOWN Height (Feet): 5 Height (Inches): 1 Weight (Pounds): 205 Home Health Need/Face to Face Date of Face to Face: Oct 01, 2022 Clinical Findings: Muscle weakness, Pain with ambulation I have seen Pt sjvz-ce-ohjq: Yes Discharged To: Home Diagnosis/Conditions: Right Knee Primary Osteoarthritis s/p TKA Patient is Homebound due to: Muscle weakness, Pain w/ambulation Homebound Status Due to the above stated illness, injury or surgical procedure (medical condition or diagnosis) and associated clinical findings, the patient is homebound because of his/her inability to leave home except with aid of a s upportive device and/or person AND leaving the home requires a considerable and taxing effort or is medically contraindicated. Pt req the following assistanc: Walker [facility] In[facility] Therapy Line Start Date: Sep 28, 2022 Therapy Orders Therapy Orders: Physical Therapy Therapy Specific Orders: Gait training, Increase strength/endurance, Restore ROM Certify Stmt I certify that this patient is under my care and that I, a nurse practitioner or a physician; a environmental services assistant working with me, had a face to face encounter that - meets the physician face to face encounter requirements with this patient as dated. JAVAD BUNCH MD Oct 01, 2022 11:24
--- NOTE | 2022-10-01 11:27 | Discharge Summary ---
Discharge Summary Hospital Course Hospital Course Date of Admission: Sep 28, 2022 at 12:54 Admission Diagnosis : Right Knee Primary Osteoarthritis Family Physician/Provider: Sanjeev Noguera Physician Date of Discharge: 10/01/22 Discharge Diagnosis: [Right Knee Primary Osteoarthritis s/p TKA ] Hospital Course: [ Admitted on 09/28/22, underwent right total knee arthroplasty. Tolerated the procedure well and was admitted to the regular floor. On day of surgery began mechanical DVT prophylaxis. Initially had some difficulty with pain control. On POD #1, began chemical DVT prophylaxis and began to mobilize with therapy. Was denied acute rehab per insurance. On POD #2, continued to make progress with therapy. Home health arrangements were made. On POD #3, patient was ready for discharge home with home health therapy.] Labs and Pending Lab Test: Laboratory Tests 10/01/22 05:00: White Blood Count 9.7, Red Blood Count 3.62L, Hemoglobin 10.9L, Hematocrit 33L, Mean Corpuscular Volume 91, Mean Corpuscular Hemoglobin 30, Mean Corpuscular Hemoglobin Concent 33, Red Cell Distribution Width 13.2, Platelet Count 242, Mean Platelet Volume 9.7, Immature Granulocyte % (Auto) 0, Neutrophils (%) (Auto) 60, Lymphocytes (%) (Auto) 33, Monocytes (%) (Auto) 5, Eosinophils (%) (Auto) 2, Basophils (%) (Auto) 0, Neutrophils # (Auto) 5.8, Lymphocytes # (Auto) 3.2, Monocytes # (Auto) 0.5, Eosinophils # (Auto) 0.2, Basophils # (Auto) 0.0, Immature Granulocyte # (Auto) 0.0, Sodium Level 138, Potassium Level 3.7, Chloride Level 102, Carbon Dioxide Level 27, Anion Gap 9, Blood Urea Nitrogen 8, Creatinine 0.59L, Estimat Glomerular Filtration Rate 106, BUN/Creatinine Ratio 14, Glucose Level 101, Calcium Level 8.6, Corrected Calcium 9.2, Total Bilirubin 0.4, Aspartate Amino Transf (AST/SGOT) 20, Alanine Aminotransferase (ALT/SGPT) 17, Alkaline Phosphatase 58, Total Protein 6.4, Albumin 3.3 Home Meds Active Oxycodone HCl 10 Mg Tablet 10 Mg PO Q4H 7 Days Aspirin EC (Aspirin) 81 Mg Tablet.dr 81 Mg PO BID WITH MEALS 14 Days Cyclobenzaprine HCl 10 Mg Tablet 10 Mg PO TID PRN 7 Days Sudafed (Pseudoephedrine HCl) 30 Mg Tablet 30 Mg PO Q6H Reported Motrin (Ibuprofen) 400 Mg Tablet 1 Each PO QID Assessment/Pt Instructions 10/13/[address] Bunch. WBAT on Right leg. Walker for Assist. Dry Dressing Daily. Discharge Physical Examination Vital Signs Vital Signs Date Time Temp Pulse Resp B/P (MAP) Pulse Ox O2 Delivery O2 Flow Rate FiO2 10/01/22 08:00 96 Room Air 10/01/22 07:49 36.3 99 17 148/77 (100) 10/01/22 04:00 2.00 Extremity: Other (R knee: Incision C/D/I, +DF of ankle, no s/s of DVT) Allergies: Coded Allergies: duloxetine HCl (Verified Allergy, Unknown, 09/21/22) UNKNOWN Discharge Summary Date of Admission Sep 28, 2022 at 12:54 Date of Discharge MALDONADO BUNCH MD Oct 01, 2022 11:27
[2022-10-01 12:00] VITALS: BP 131/82
--- NOTE | 2022-10-01 14:18 | Physical Therapy Progress Note ---
Therapy Progress Note Patient sitting in recliner. Would not open her eyes but refused PT this p.m. stating she is going home. RN notified. 1 ref HEYDI NICHOLE PT Oct 01, 2022 14:18
[2022-10-01 15:17] VITALS: BP 138/81
[2022-10-01 19:03] VITALS: BP 138/81
== END 2022-10-01 19:00 | disposition home health service (06) ==
LOC: SDC 07:29 → EDSTATUS 09:40 → INTOOBSV 12:54 → 4TH 12:54
PROVIDERS: ADMIT Orthopaedic Surgery; ATTEND Orthopaedic Surgery
DX: M17.11 Unilateral primary osteoarthritis, right knee (principal); E66.01 Morbid (severe) obesity due to excess calories; M54.40 Lumbago with sciatica, unspecified side; Z68.41 Body mass index [BMI] 40.0-44.9, adult
CPT/HCPCS: 36415; 73560; 80053; 83036; 84443; 84703; 85025; 94664; 94760; 94761; 96360; 96375; 96376; G0378

== ENCOUNTER → 2022-10-13 | Outpatient (CLI) | payer MEDICARE, MEDICAID ==
[~2022-10-13] MED LIST changes: +ASPI-1238 PO; +CYCL10TA25 PO; +OXYC10TA7 PO
== END ==
LOC: ORTHO 12:51
PROVIDERS: ATTEND Orthopaedic Surgery
DX: Z98.890 Other specified postprocedural states (principal); M17.11 Unilateral primary osteoarthritis, right knee

== ENCOUNTER → 2022-11-17 | Outpatient (CLI) | payer MEDICARE, MEDICAID ==
--- NOTE | 2022-11-17 13:01 | Diagnostic Imaging Report ---
INDICATION: Knee pain COMPARISON: 09/28/2022. TECHNIQUE: 2 radiographs the right knee dated the 2019 FINDINGS: Right total knee arthroplasty is again identified. Previously noted skin chris and postsurgical soft tissue gas is no longer visualized. No evidence of hardware complication. No acute fracture or dislocation. No destructive osseous process. No suspicious radiopaque foreign body IMPRESSION: Right total knee arthroplasty without hardware complication or acute osseous abnormality. Dictated by: Dictated on workstation # [id number]
== END ==
LOC: ORTHO 12:33
PROVIDERS: ATTEND Orthopaedic Surgery
DX: M25.561 Pain in right knee (principal); Z96.651 Presence of right artificial knee joint
CPT/HCPCS: 73560

== ENCOUNTER 2022-11-20 11:16 | Outpatient (RCR) | payer MEDICARE, MEDICAID | END 2022-11-22 | disposition home or self-care (01) | PROVIDERS: ATTEND Orthopaedic Surgery | DX: Z47.1 Aftercare following joint replacement surgery (principal); Z96.651 Presence of right artificial knee joint ==